=== PATIENT | male | born 1955 | race Caucasian/White ===

== ENCOUNTER → 2018-04-29 12:28 | Outpatient (CLI) | payer MEDICARE, SELFPAY ==
[2018-04-29 13:08] LABS: International Normalized Ratio 2.9; Prothrombin Time (Protime)PT. 30.8 SECONDS (11.7-14.9)
== END ==
PROVIDERS: Family Provider Student in an Organized Health Care Education/Training Program; PCP Student in an Organized Health Care Education/Training Program; Visit Provider Nurse Practitioner Adult Health
DX: Z51.81 Encounter for therapeutic drug level monitoring (principal); Z79.01 Long term (current) use of anticoagulants
CPT/HCPCS: 85610

== ENCOUNTER 2018-06-05 12:05 | Emergency (ER) | payer MEDICARE, SELFPAY ==
[2018-06-05 12:05] VITALS: BP 121/67; PULSE 79; RESP 18; TEMP 36.6; O2SAT 96; BMI 32.0
--- NOTE | 2018-06-05 12:42 | ED.DCSUM_ITS ---
- ER Visit Summary Date of Service: 06/05/18 Chief Complaint: Bruising History of Present Illness: The patient is a 62 M who is on Coumadin for history of prior DVT. He was sent to the emergency room for evaluation because there is concern for blood in foot . Patient states he has pushed down hard on his foot. There is no recollection of significant trauma. Last INR was 2.9. Physical Examination: Patient has superficial hematoma. There is no pain palpation of the lateral medial malleolus, calcaneus, metatarsal bones or phalanges. There is no subungual hematoma noted. Test Results: None Emergency Department Course and Treatment: Patient was informed he will bruise easily because he is on Coumadin. Since there is no specific history of blunt trauma and no pain to palpation of any particular bone there is no need to repeat his INR or image the foot. Treatment Plan: Follow-up with PCP and monitor INR. Disposition: Discharged home Impression: Bruising secondary to Coumadin, high risk medication This note was generated with [employer] dictation software. It may contain incorrect words, spelling, and punctuation that were not noted in review of the chart prior to signing ED Disposition - Plan for ED Patient: Disposition: Home or Assisted Living Chief Complaint: Lower Extremity Injury Instructions: Taking?Coumadin Referrals: Hari Oneill DO [Primary Care Provider] - As Needed
== END 2018-06-05 13:01 | disposition home or self-care (01) ==
PROVIDERS: Emergency Provider Emergency Medicine; Family Provider Student in an Organized Health Care Education/Training Program; PCP Student in an Organized Health Care Education/Training Program
DX: D68.32 Hemorrhagic disorder due to extrinsic circulating anticoagulants (principal); G40.909 Epilepsy, unspecified, not intractable, without status epilepticus; E66.9 Obesity, unspecified; Z68.32 Body mass index [BMI] 32.0-32.9, adult; Z86.718 Personal history of other venous thrombosis and embolism; Z79.01 Long term (current) use of anticoagulants; Z79.899 Other long term (current) drug therapy; Z87.891 Personal history of nicotine dependence
CPT/HCPCS: 99282

== ENCOUNTER → 2018-06-07 09:44 | Outpatient (CLI) | payer MEDICARE, SELFPAY ==
[2018-06-07 13:39] LABS: Prothrombin Time (Protime)PT. 38.7 SECONDS (11.7-14.9)
[2018-06-07 13:48] LABS: International Normalized Ratio 3.9
== END ==
PROVIDERS: Family Provider Student in an Organized Health Care Education/Training Program; PCP Student in an Organized Health Care Education/Training Program; Referring Provider Student in an Organized Health Care Education/Training Program; Visit Provider Student in an Organized Health Care Education/Training Program
DX: I26.99 Other pulmonary embolism without acute cor pulmonale (principal); Z51.81 Encounter for therapeutic drug level monitoring; Z79.01 Long term (current) use of anticoagulants
CPT/HCPCS: 85610

== ENCOUNTER → 2018-06-10 11:03 | Outpatient (CLI) | payer MEDICARE, SELFPAY ==
[2018-06-10 11:17] LABS: Prothrombin Time (Protime)PT. 37.7 SECONDS (11.7-14.9)
[2018-06-10 11:20] LABS: International Normalized Ratio 3.8
== END ==
PROVIDERS: Family Provider Student in an Organized Health Care Education/Training Program; PCP Student in an Organized Health Care Education/Training Program; Referring Provider Student in an Organized Health Care Education/Training Program; Visit Provider Student in an Organized Health Care Education/Training Program
DX: I26.99 Other pulmonary embolism without acute cor pulmonale (principal)
CPT/HCPCS: 85610

== ENCOUNTER → 2019-06-09 14:10 | Outpatient (CLI) | payer MEDICARE, SELFPAY ==
[2019-06-09 14:23] LABS: International Normalized Ratio 1.3; Prothrombin Time (Protime)PT. 15.9 SECONDS (11.7-14.9)
== END ==
PROVIDERS: Family Provider Student in an Organized Health Care Education/Training Program; PCP Student in an Organized Health Care Education/Training Program; Visit Provider Family Medicine
DX: I26.99 Other pulmonary embolism without acute cor pulmonale (principal)
CPT/HCPCS: 85610

== ENCOUNTER 2019-09-17 14:38 | Observation (INO) | payer MEDICARE, SELFPAY ==
[2019-09-17] VITALS (8 sets, daily range): BP systolic 112–132; BP diastolic 65–79; PULSE 71–85; RESP 14–20; TEMP 36.6–37; O2SAT 95–100; BMI 30.7; BMI 30.4
--- NOTE | 2019-09-17 15:13 | CT_ITS ---
STUDY: CT ABDOMEN AND PELVIS WITH CONTRAST REASON FOR EXAM: Male, 64 years old. Abdominal pain, nausea, vomiting and amp; diarrhea x 4 days. HISTORY OF LYMPHOMA RADIATION DOSAGE (If Supplied By Facility): CTDIvol = ( 18.34 ) mGy, DLP = ( 1290.52 ) mGycm TECHNIQUE: Transaxial images were obtained from the dome of the diaphragm to the symphysis pubis with oral contrast. Oral and amp; IV Gastrografin and amp; 100mL Isovue-300 was administered. Sagittal and coronal images were reconstructed. Individualized dose optimization techniques were used for this CT. COMPARISON: 06/08/2014. FINDINGS: The visualized lung bases are unremarkable. The visualized portions of the heart are within normal limits. Normal liver. There is a solitary gallstone. Normal spleen. There is diffuse atrophy of the pancreas. Normal bilateral adrenal glands. Normal right kidney. Normal left kidney. Normal appearance of the stomach. Normal small bowel. Marked distention of most of the large bowel with air as far as the splenic flexure. Findings are most consistent with ileus but obstruction is not an colonoscopy is suggested. Mild hazy increased density of the mesentery without mass or adenopathy. This appearance is completely nonspecific and most often incidental Normal abdominal aorta. There is an IVC filter in place. 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 Normal retroperitoneum. Normal urinary bladder. Normal abdominal wall. Normal osseous structures. CT/Abdomen/Pelvis WITH Contrast IMPRESSION: Distention of the right colon and transverse colon to the splenic flexure primary with air and some fecal material. Probable colonic ileus but consider colonoscopy. No other acute findings. Again seen is cholelithiasis and collapse of the IVC below the level of the IVC filter. Electronically Signed: Harsha Reed MD at 17:41 EST , Service support ,
--- NOTE | 2019-09-17 15:20 | ED.VISSUMM ---
- ER Visit Summary Date of Service: 09/17/19 Chief Complaint: Nausea and vomiting History of Present Illness: The patient is a 64 M with nausea and vomiting that is been getting progressively worse over the past 4 days. Patient states his emesis is gritty. Patient denies any hematemesis or coffee-ground emesis. Patient also admits to some diarrhea but denies any melena or hematochezia. Patient states he has been having some lower abdominal pain that has been intermittent over the past 4 days. Patient states this is worse after eating. Patient states the pain lasts a few minutes then resolves. Patient also admits to some dizziness. Patient denies any fevers or chills. Physical Examination: Vital signs are stable. Patient is afebrile. Patient is in no acute distress. Oral mucosa is pink and moist. Neck is supple. Trachea is midline. There is no JVD. Heart was regular rate and rhythm. Lungs are clear and equal bilaterally. Abdomen is soft. Bowel sounds are normal. There is mild diffuse tenderness. There is no rebound or guarding noted. Cranial nerves II through XII are intact. There are no focal motor or sensory deficits noted. Test Results: CBC and comprehensive metabolic profile were essentially within normal limits with the exception of a potassium of 2.5. Urinalysis does not show any evidence of urinary tract infection. CT scan of the abdomen and pelvis was obtained. There is a colonic ileus with distention of the large bowel up to the splenic flexure. There is no definite obstruction noted. Emergency Department Course and Treatment: Patient was given IV fluids. Patient was given IV and oral potassium. Patient was given morphine and Zofran. Patient was feeling better on reevaluation. Patient still complained of dizziness. I recommended admission to the hospital. Patient stated he wanted some time to think about it. Patient eventually was agreeable to admission to the hospital. Case was discussed with the hospitalist. She will admit the patient to her service for observation. Patient understands and is agreeable with the plan. All questions were answered. Disposition: Admit to hospital Impression: 1. Colonic ileus 2. Hypokalemia This note was generated with [facility] software. It may contain incorrect words, spelling, and punctuation that were not noted in review of the chart prior to signing ED Disposition - Plan for ED Patient: Disposition: Acute Care Hospital [facility] Diagnosis: Ileus, Hypokalemia Referrals: Hari Oneill DO [Primary Care Provider] -
[2019-09-17] MEDS: 0.9% Normal Saline 1,000 ML 1000 ML IV (15:35)
[2019-09-17 15:36] LABS: Absolute Lymphocyte Count 0.81 X10^3/uL (0.83-4.51); Basophil# 0.02 X10^3/uL; Basophil% 0.3 % (0-1); Eosinophil# 0.09 X10^3/uL; Eosinophils% 1.2 % (0-5); Hematocrit 39.9 % (40-54); Lymphocyte # 0.81 X10^3/ul (4.0); Lymphocyte % 11.1 % (19-41); Mean Corp Hgb Conc 35.1 g/dL (32-36); Mean Corpuscular Hgb 30.6 pg (27.0-32.0); Mean Corpuscular Volume 87.3 fL (80-94); Monocyte# 0.43 X10^3/uL; Monocyte% 5.9 % (0-10); NRBC Flagged by Analyzer 0 % (0-5); Neutrophil # 5.96 X10^3/uL (2.7-7.7); Neutrophil % 81.2 % (47-70); Platelet Count 204 K/mm3 (150-450); RBC Distribution Width CV 13.7 % (11.6-14.6); RBC Distribution Width SD 44.3 fl (35.1-43.9); Red Blood Count 4.57 M/mm3 (4.6-6.2); White Blood Count 7.3 K/mm3 (4.4-11.0)
[2019-09-17] MEDS: Ondansetron 4 MG/2 ML Vial IV (15:36)
[2019-09-17] MEDS: Morphine 4 MG/ML Syringe IV (15:37)
[2019-09-17 16:03] LABS: AST(SGOT) 18 U/L (15-37); Alanine Aminotransfer ALT/SGPT 38 U/L (16-61); Albumin, Serum 3.4 g/dL (3.2-5.0); Alkaline Phosphatase 103 U/L (45-117); Anion Gap 9 (5-15); BUN 14 mg/dL (7-18); BUN/Creat Ratio 14.4 RATIO (10-20); Calcium,Total 8.6 mg/dL (8.5-10.1); Chloride 105 mmol/L (98-107); Creatinine, Serum 0.97 mg/dL (0.70-1.30); EST Glomerular Filtration Rate 82 mL/min (>60); Est Glom Filt Rate - Afr Amer 100 mL/min (>60); Estimated Creatinine Clearance 82.22 ml/min; Globulin 3.4 g/dL (2.2-4.2); Glucose 117 mg/dL (74-106); Lipase 328 U/L (73-393); Potassium 2.5 mmol/L (3.5-5.1); Protein, Total 6.8 g/dL (6.4-8.2); Sodium Level 140 mmol/L (136-145)
[2019-09-17] MEDS: Potassium Chloride 10mEq/100mL 10 MEQ/100 ML IV.SOLN. 100 MEQ IV BOLUS ×2 (16:23→17:45)
[2019-09-17 16:33] LABS: Red Blood Cells-Urine 0 SEEN /hpf (0-5)
[2019-09-17 16:40] LABS: Color, Urine Yellow (Yellow); Glucose, Dipstick Normal (Normal); Ketone-Dipstick Negative (Negative); Leukocyte Esterase-Dipstick Negative /ul (Negative); Nitrite-Dipstick Negative (Negative); Occult Blood-Urine 10 /ul (Negative); Protein-Dipstick Negative (Negative); Specific Gravity, Urine 1.015 (1.002-1.030); Urine Bilirubin Dipstick Negative (Negative); Urine Clarity Clear (Clear); Urine Urobilinogen Normal (Normal)
[2019-09-17 17:26] LABS: White Blood Cells 0-5 SEEN /hpf (0-5)
[2019-09-17 17:27] LABS: Bacteria 1+ /hpf (None Seen); Hyaline Cast 5-10 SEEN /lpf (0-5); Mucous, Urine 2+ /hpf (<or=2+); Squamous Epithelial Cells - UA 0-5 SEEN /hpf (0-5)
--- NOTE | 2019-09-17 19:19 | HP.PCM_ITS ---
Problem List (1) Gastroenteritis Status: Acute (2) Supratherapeutic INR Status: Acute (3) Hypokalemia Status: Acute (4) HTN (hypertension) Status: Chronic Qualifiers: Hypertension type: essential hypertension Qualified Code(s): I10 - Essential (primary) hypertension (5) Anxiety and depression Status: Chronic (6) WILBERTO (obstructive sleep apnea) Status: Chronic (7) History of DVT of lower extremity Status: Chronic (8) History of lymphoma Status: Chronic (9) Seizure disorder Status: Chronic History of Present Illness Date of Admission: 09/17/19 Chief Complaint: N/V/D, dizziness x 4 days The patient is a 64 y/o M w/ PMHx: Obesity, WILBERTO, Hx PE on coumadin s/p IVC Filter placement, Seizure disorder, GERD, Anxiety and Depression, Large B cell Lymphoma and Malignant melanoma who presents to the [facility] ED on 09/17/19 with history of lower cramping abdominal pain rating the pain from 4-6 out of 10 in severity but waxing and waning with at least 6-8 bouts of diarrhea throughout the day with associated occasional nausea and emesis able to tolerate some fluids but difficulty with food, notes abdominal discomfort worse with attempted oral intake with associated lightheadedness and dizziness prompting [facility] UC evaluation with referral to the ED. He notes his was recently in the hospital for a planned knee operation and did not have any of these symptoms. Work-up in the ED included T 97.8, heart rate 76, BP 132/79, respiratory rate 17, 99% on room air, CBC with WBC 7.3, hemoglobin 14, platelet 204 without market left shift, CMP with potassium 2.5, glucose 117 otherwise normal, lipase 328, urinalysis with specific gravity 1.015, 10 occult blood, negative nitrite, negative leukocyte esterase, no urine WBCs, 1+ urine bacteria, CT abdomen pelvis with noted distention of the right colon and transverse colon to splenic fracture primarily with air and some fecal material, suspicious for colonic ileus, cholelithiasis evident as well as collapse of the IVC below the level of the IVC filter. In the ED patient ministered morphine, Zofran, potassium oral and IV supplementation as well as normal saline. Past Medical History Past Medical History (Chronic Problems): Chronic Problems HTN (hypertension) (Chronic) Anxiety and depression (Chronic) WILBERTO (obstructive sleep apnea) (Chronic) Depression (Chronic) History of DVT of lower extremity (Chronic) History of lymphoma (Chronic) Seizure disorder (Chronic) Allergies No Known Allergies Allergy (Verified 09/17/19 14:39) Home Medications: Ambulatory Orders Medication Instructions Recorded Finasteride [Proscar] 5 mg PO QHS 03/12/14 Lamotrigine [Lamictal] 200 mg PO BID 03/12/14 Warfarin [Coumadin] 6 mg PO SUMOWEFR 03/12/14 Citalopram Hydrobromide 40 mg PO DAILY 09/17/19 [Citalopram HBr] Lacosamide [Vimpat] 200 mg PO BID 09/17/19 Warfarin [Coumadin ([facility])] 7 mg PO TUTHSA 09/17/19 Zonisamide 100 mg PO DAILY 09/17/19 Surgical History: appendectomy, - - Possibly partial gastric resection, unclear if previous bleed, not great historian in this part, IVC filter placement, right eye intervention, tonsillectomy. Psychiatric History: Anxiety, Depression Lives: Spouse/ Significant Other Smoking Status: Never smoker Tobacco Use: Non-smoker Alcohol: None Drugs: None - *Family History Maternal History Items: - - Patient denies any market maternal or paternal family history including heart disease, diabetes or cancer. Paternal History Items: - - Patient denies any market maternal or paternal family history including heart disease, diabetes or cancer. Sibling History Items: No pertinent history Review of Systems Constitutional: Reports: Anorexia, Malaise, Weakness, Fatigue. Denies: Chills, Fever, Weight Change Eyes: Reports: - - R eye injury, loss of vision. HEENT: Denies: Head Aches, Sinus Congestion, Sinus Drainage Cardiovascular: Reports: Light Headedness. Denies: Chest Pain, Palpitations Respiratory: Denies: Cough, Shortness of breath at rest, Sputum production Gastrointestinal: Reports: Abdominal Pain, Diarrhea, Nausea, Vomiting Genitourinary: Denies: Dysuria Musculoskeletal: Reports: Joint Pain. Denies: Joint Tenderness Skin: Denies: Rash, Wounds Neurological: Denies: Numbness, Tingling, Focal weakness Psychiatric: Reports: Anxiety, Depression. Denies: Homicidal Ideations, Suicidal Ideations Hematologic/ Lymphatic: Reports: Easy Bruising, Easy Bleeding VTE Information - Inpt Only VTE Present on Admission: No VTE Mechan Device Prophylaxis: SCD's VTE Pharm Prophylaxis ordered?: No Reason prophylaxis not ordered:: Treatment Not Indicated - Holding coumadin, INR supratherapeutic. Patient Problems: Active and Suspected Problems Gastroenteritis (Acute) Hypokalemia (Acute) Supratherapeutic INR (Acute) Subjective: Seated upright in ED bed, no acute distress, mildly fatigued appearance. Objective: Physical Examination: General: awake, alert, oriented x 3 and cooperative, seated upright in the ED bed, fatigued appearance, no acute distress, notes feeling improved since initial ED presentation. Skin: normal color, turgor, no icterus, cyanosis. HEENT: AT/NC, EOM left eye intact, status post right eye injury with intervention, absent, blind, dry pupil round reactive to light, moderately dry MM, no carotid bruits or JVD noted. Lungs: CTA bilaterally, moderate effort, or it decrease BL bases, no rales, ronchi or wheezing. Heart: Regular rate and rhythm; no gallop, rub audible. Abdomen: soft, obese, mild generalized discomfort with palpation, potentially mildly distended, mildly hyperactive bowel sounds, no obvious HSM. Extremities: no cyanosis, clubbing, or edema. Neurological: patient awake, alert, oriented x 3; cognitive function intact; L pupil reactive to light, absent right eye; cranial nerves II-XII grossly normal except obvious deficits with right eye absence, moving all 4 extremities, no focal deficits, moderately global decrease secondary to acute presentation. Psychiatric: affect appears fatigued, no acute evidence of depressive or anxiety feelings. - Physical Exam Vitals/I&O's: Vital Signs Temp Pulse Resp BP Pulse Ox 97.8 F 81 19 H 119/65 100 09/17/19 14:39 09/17/19 18:29 09/17/19 18:29 09/17/19 18:29 09/17/19 18:29 Oxygen Delivery Method Room Air Weight: 226 lb 3.108 oz Body Mass Index (BMI) 30.7 Finger Stick Blood Glucose 108 Intake and Output for Last 24 Hours 09/15/19 09/16/19 09/17/19 23:59 23:59 23:59 Intake Total 1100 / 1100 Balance 1100 / 1100 Laboratory Results 09/17/19 15:30: WBC 7.3, RBC 4.57 L, Hgb 14.0, Hct 39.9 L, MCV 87.3, MCH 30.6, MCHC 35.1, RDW Std Deviation 44.3 H, RDW Coeff of Vaishnavi 13.7, Plt Count 204, MPV 9.0, Immature Gran % (Auto) 0.300, Neut % (Auto) 81.2 H, Lymph % (Auto) 11.1 L, Blaine % (Auto) 5.9, Eos % (Auto) 1.2, Baso % (Auto) 0.3, Absolute Neuts (auto) 6.0, Absolute Lymphs (auto) 0.81 L, Nucleated RBC % 0 09/17/19 15:30: Sodium 140, Potassium 2.5 L*, Chloride 105, Carbon Dioxide 26.0, Anion Gap 9, BUN 14, Creatinine 0.97, Estim Creat Clear Calc 82.22, Est GFR (MDRD) Af Amer 100, Est GFR (MDRD) Non-Af 82, BUN/Creatinine Ratio 14.4, Glucose 117 H, Calcium 8.6, Total Bilirubin 0.40, AST 18, ALT 38, Alkaline Phosphatase 103, Total Protein 6.8, Albumin 3.4, Globulin 3.4, Albumin/Globulin Ratio 1.0, Lipase 328 09/17/19 16:25: Urine Color Yellow, Urine Clarity Clear, Urine pH 6.0, Ur Specific Kenton 1.015, Urine Protein Negative, Urine Glucose (UA) Normal, Urine Ketones Negative, Urine Occult Blood 10 H, Urine Nitrite Negative, Urine Bilirubin Negative, Urine Urobilinogen Normal, Ur Leukocyte Esterase Negative, Urine RBC 0 SEEN, Urine WBC 0-5 SEEN, Ur Squamous Epith Cells 0-5 SEEN, Urine Bacteria 1+, Hyaline Casts 5-10 SEEN, Urine Mucus 2+ Assessment/Plan All Active Problems Gastroenteritis (Acute) Hypokalemia (Acute) Supratherapeutic INR (Acute) Ataxia (Acute) Lightheadedness (Acute) Generalized weakness (Acute) The patient is a 64 y/o M w/ PMHx: Obesity, WILBERTO, Hx PE on coumadin s/p IVC Filter placement, Seizure disorder, GERD, Anxiety and Depression, Large B cell Lymphoma and Malignant melanoma who presents to the [facility] ED on 09/17/19 with history of lower cramping abdominal pain rating the pain from 4-6 out of 10 in s everity but waxing and waning with at least 6-8 bouts of diarrhea throughout the day with associated occasional nausea and emesis able to tolerate some fluids but difficulty with food, notes abdominal discomfort worse with attempted oral intake with associated lightheadedness and dizziness. 1. N/V/D, ? Viral Gastroenteritis: Will admit to [facility] w/ telemetry given hypokalemia, request repeat testing this evening given resulted this afternoon, allow clears only initially with ADAT, will obtain c diff, stool cx with repeat AM CBC. Will not start antibiotics at this time given unclear source pending stool studies as may be viral gastroenteritis. Anti-emetics, pain regimen PRN. 2. Hypokalemia: Admission K+ 2.5, supplementation given, repeat level in AM. Magnesium level requested. 3. History of PE: Status post IVC filter seen on imaging, INR level obtained and notably elevated, will hold, no obvious evidence of bleeding thus will not reverse, repeat INR in a.m. 4. Seizure disorder: We will continue patient home Lamictal level with level pending as well as Vimpat and zonisamide. 5. Hypertension: Given acute presentation with GI losses we will temporarily hold Lasix and resume once appropriate, PRN hydralazine. 6. BPH: We will continue patient home Proscar regimen. 7. Anxiety and depression: We will continue patient home citalopram regimen. 8. WILBERTO: Patient does not use a CPAP at home, encourage follow-up outpatient for reassessment for need. 9. GERD: We will maintain on famotidine. 10. History large B-cell lymphoma, malignant melanoma: Notes in remission x5 years, encouraged continued follow-up with oncology per their discretion. 11. DVT prophylaxis: SCDs, obtained admission INR and notably elevated, will hold Coumadin and trend INR. Code Visit OBSV E&M: 37448 Initial observation care L3
[2019-09-17 19:49] LABS: Prothrombin Time (Protime)PT. 56.5 SECONDS (11.7-14.9)
[2019-09-17 19:51] LABS: International Normalized Ratio 6.3
[2019-09-17] MEDS: 0.9% Saline Lock 10 ML Syringe IV ×2 (20:56→22:30)
[2019-09-17 21:31] LABS: Anion Gap 6 (5-15); BUN 11 mg/dL (7-18); Calcium,Total 8.3 mg/dL (8.5-10.1); Chloride 108 mmol/L (98-107); Creatinine, Serum 0.92 mg/dL (0.70-1.30); EST Glomerular Filtration Rate 88 mL/min (>60); Est Glom Filt Rate - Afr Amer 106 mL/min (>60); Estimated Creatinine Clearance 86.69 ml/min; Glucose 112 mg/dL (74-106); Sodium Level 140 mmol/L (136-145)
[2019-09-17] MEDS: Famotidine 20 MG Tablet PO (22:21)
[2019-09-17] MEDS: Finasteride 5 MG Tablet PO (22:21)
[2019-09-17] MEDS: Lacosamide 100 MG Tablet 200 MG PO (22:21)
[2019-09-17] MEDS: lamoTRIgine 100 MG Tablet 200 MG PO (22:25)
[2019-09-17] MEDS: 0.9% Normal Saline 1,000 ML 100 ML IV (22:26)
[2019-09-17] MEDS: MELATONIN 3 MG TABLET PO (23:18)
[2019-09-18] VITALS (7 sets, daily range): BP systolic 108–121; BP diastolic 62–70; PULSE 67–81; RESP 16–18; TEMP 36.6–36.8; O2SAT 96–99
[2019-09-18] MEDS: 0.9% Saline Lock 10 ML Syringe IV ×2 (05:42→13:05)
[2019-09-18 06:04] LABS: Absolute Lymphocyte Count 1.13 X10^3/uL (0.83-4.51); Absolute Neutrophil Count 4.5 X10^3/uL (2.0-7.7); Basophil# 0.03 X10^3/uL; Basophil% 0.5 % (0-1); Eosinophil# 0.21 X10^3/uL; Eosinophils% 3.3 % (0-5); Hematocrit 37.1 % (40-54); Hemoglobin 12.8 g/dL (13.0-16.5); Lymphocyte # 1.13 X10^3/ul (4.0); Lymphocyte % 17.8 % (19-41); Mean Corp Hgb Conc 34.5 g/dL (32-36); Mean Corpuscular Hgb 30.6 pg (27.0-32.0); Mean Corpuscular Volume 88.8 fL (80-94); Mean Platelet Vol. 8.9 fl (6.2-12.0); Monocyte# 0.48 X10^3/uL; Monocyte% 7.6 % (0-10); NRBC Flagged by Analyzer 0 % (0-5); Neutrophil # 4.46 X10^3/uL (2.7-7.7); Neutrophil % 70.3 % (47-70); Platelet Count 167 K/mm3 (150-450); RBC Distribution Width SD 45.5 fl (35.1-43.9); Red Blood Count 4.18 M/mm3 (4.6-6.2); White Blood Count 6.3 K/mm3 (4.4-11.0)
[2019-09-18 06:16] LABS: International Normalized Ratio 6.6
[2019-09-18 06:20] LABS: Anion Gap 6 (5-15); BUN 10 mg/dL (7-18); BUN/Creat Ratio 12.9 RATIO (10-20); Calcium,Total 8.3 mg/dL (8.5-10.1); Chloride 109 mmol/L (98-107); Creatinine, Serum 0.78 mg/dL (0.70-1.30); EST Glomerular Filtration Rate 107 mL/min (>60); Est Glom Filt Rate - Afr Amer 129 mL/min (>60); Estimated Creatinine Clearance 79.76 ml/min; Glucose 98 mg/dL (74-106); Potassium 2.7 mmol/L (3.5-5.1); Sodium Level 141 mmol/L (136-145)
[2019-09-18] MEDS: 0.9% Normal Saline 1,000 ML 100 ML IV (07:39)
[2019-09-18] MEDS: Potassium Chloride 10mEq/100mL 10 MEQ/100 ML IV.SOLN. 100 MEQ IV BOLUS ×2 (08:14→09:36)
[2019-09-18] MEDS: Famotidine 20 MG Tablet PO (09:37)
[2019-09-18] MEDS: ZONISAMIDE 100 MG CAPSULE PO (09:37)
[2019-09-18] MEDS: lamoTRIgine 100 MG Tablet 200 MG PO (09:38)
[2019-09-18] MEDS: Citalopram 40 MG TABLET PO (09:38)
[2019-09-18] MEDS: ZONISAMIDE 100 MG CAPSULE 300 MG PO (11:12)
[2019-09-18] MEDS: Lacosamide 100 MG Tablet 200 MG PO (11:14)
--- NOTE | 2019-09-18 11:42 | DCINST_ITS ---
- Discharge Diagnoses Current Active Problems: Current Active and Chronic Problems Gastroenteritis (Acute) Hypokalemia (Acute) HTN (hypertension) (Chronic) Anxiety and depression (Chronic) WILBERTO (obstructive sleep apnea) (Chronic) Supratherapeutic INR (Acute) Ileus (Acute) Hypokalemia (Acute) You will use the following diet at home:: No restrictions Your food should be the consistency of: Regular Your liquids should be the consistency of: Regular/Thin Discharge Activity: Return to Normal Activity Weight Bearing Status: Full weight bearing Additional Instructions: Do not take Warfarin, discuss dose with your PCP, get your INR rechecked tomorrow and 09/22/19. call your physician if you see any abnormal bleeding Allergies/Adverse Reactions: Allergies No Known Allergies Allergy (Verified 09/17/19 14:39) Medications to take at Discharge Finasteride [Proscar] 5 mg PO QHS 03/12/14 Lamotrigine [Lamictal] 200 mg PO BID 03/12/14 Citalopram Hydrobromide [Citalopram HBr] 40 mg PO DAILY 09/17/19 Lacosamide [Vimpat] 200 mg PO BID 09/17/19 Zonisamide 300 mg PO DAILY 09/17/19 Primary Care Physician: Hari Oneill DO [Primary Care Provider] - Please follow up with your Primary Care Physician in: next week Test Results: Test results from this visit will be discussed in further detail at your follow- up appointment, if applicable.
[2019-09-18 13:31] LABS: Anion Gap 6 (5-15); BUN 9 mg/dL (7-18); BUN/Creat Ratio 11.1 RATIO (10-20); Calcium,Total 8.3 mg/dL (8.5-10.1); Chloride 111 mmol/L (98-107); Creatinine, Serum 0.81 mg/dL (0.70-1.30); EST Glomerular Filtration Rate 101 mL/min (>60); Est Glom Filt Rate - Afr Amer 122 mL/min (>60); Estimated Creatinine Clearance 98.46 ml/min; Glucose 126 mg/dL (74-106); Potassium 3.1 mmol/L (3.5-5.1); Sodium Level 142 mmol/L (136-145)
--- NOTE | 2019-09-19 08:21 | PCM.DC.SUM ---
Discharge Date and Diagnosis Date of Admission: 09/17/19 Date of Discharge: 09/18/19 - Primary Discharge Diagnosis #1 hypokalemia secondary to nausea and vomiting from viral gastroenteritis #2 viral gastroenteritis #3 supratherapeutic INR #4 seizure disorder #5 use of chronic anticoagulation (warfarin) - Secondary Discharge Diagnosis Chronic Problems HTN (hypertension) (Chronic) Anxiety and depression (Chronic) WILBERTO (obstructive sleep apnea) (Chronic) Depression (Chronic) History of DVT of lower extremity (Chronic) History of lymphoma (Chronic) Seizure disorder (Chronic) Hospital Course and Treatment Operations: None Procedures: None Summary of Care Provided: The patient is a 64 year old M the emergency room at [facility] with a chief complaint of nausea and vomiting. Work-up in the emergency room included an CBC which was unremarkable, patient's potassium was low, urinalysis was unremarkable. CT scan of the abdomen and pelvis was obtained there was evidence for a colonic ileus but no definite obstructive pattern was noted. Patient was given IV fluids, IV and oral potassium supplementation, morphine and Zofran, patient was placed in observation status on MedSurg 3 and labs were monitored. Patient continued to have low potassium and additional potassium administration was given to the patient. It was also noted that the patient's INR was elevated-patient maintained that he had his INR checked approximately 2 weeks ago and it was within therapeutic range. I asked the patient to stay off his warfarin for now and follow-up closely with his PCP contacting her tomorrow for instructions concerning his warfarin. Patient was able to eat without difficulty on 09/18/2019, he was examined on that date: On examination he appeared in good health and spirits. Vital signs as documented. Skin warm and dry and without overt rashes. Neck without JVD. Lungs clear. Heart exam notable for regular rhythm, normal sounds and absence of murmurs, rubs or gallops. Abdomen unremarkable and without evidence of organomegaly, masses, or abdominal aortic enlargement. Extremities nonedematous. Neuro: Cranial nerves II through XII are grossly intact, no focal motor deficits were noted, sensation to light touch and pinprick intact. Psych: Patient is alert and oriented x3, he does not appear anxious or depressed On 09/18/2019, patient was seen and examined felt to be in stable condition for discharge home. Additional note: I contacted the patient's PCPs office to make them aware his INR was highly elevated, they will be following up closely with the patient, patient was instructed that if he had any signs of abnormal bleeding he was to contact his PCP's office immediately - Physical Exam Vitals/I&O's: Vital Signs Temp Pulse Resp BP Pulse Ox 98.2 F 80 18 121/70 H 96 09/18/19 14:20 09/18/19 14:20 09/18/19 14:20 09/18/19 14:20 09/18/19 14:20 Oxygen Delivery Method Room Air Weight: 101.8 kg Body Mass Index (BMI) 30.4 Finger Stick Blood Glucose 108 Intake and Output for Last 24 Hours 09/17/19 09/18/19 09/19/19 23:59 23:59 23:59 Intake Total 1200 / 1200 3020.00 / 3020.00 Output Total 1100 / 1100 Balance 1200 / 1200 1920.00 / 1920.00 Laboratory Results 09/18/19 13:00: Sodium 142, Potassium 3.1 L, Chloride 111 H, Carbon Dioxide 25.0, Anion Gap 6, BUN 9, Creatinine 0.81, Estim Creat Clear Calc 98.46, Est GFR (MDRD) Af Amer 122, Est GFR (MDRD) Non-Af 101, BUN/Creatinine Ratio 11.1, Glucose 126 H, Calcium 8.3 L Discharge Activity: Return to Normal Activity Weight Bearing Status: Full weight bearing Home Medications: Medications to take at Discharge Finasteride [Proscar] 5 mg PO QHS 03/12/14 Lamotrigine [Lamictal] 200 mg PO BID 03/12/14 Citalopram Hydrobromide [Citalopram HBr] 40 mg PO DAILY 09/17/19 Lacosamide [Vimpat] 200 mg PO BID 09/17/19 Zonisamide 300 mg PO DAILY 09/17/19 Primary Care Physician: Hari Oneill DO [Primary Care Provider] - Please follow up with your Primary Care Physician in: next week Disposition: Home Minutes spent on discharge:: 30 Patient Condition:: Stable Medical Necessity - Tobacco Use Smoking Status: Never smoker Tobacco Use: Non-smoker Meaningful Use Info Meaningful Use Diagnoses (Choose all that apply): None applicable Code Visit OBSV E&M: 93320 Observation care discharge
[2019-09-22 22:15] LABS: Lamotrigine (Lamictal) Level 8.8 ug/mL (2.0-20.0)
== END 2019-09-18 15:05 | disposition home or self-care (01) ==
LOC: ED 19:30 → MS3 19:37
PROVIDERS: Admitting Provider Family Medicine; Emergency Provider Emergency Medicine; PCP Student in an Organized Health Care Education/Training Program; Visit Provider Internal Medicine
DX: A08.4 Viral intestinal infection, unspecified (principal); E87.6 Hypokalemia; G40.909 Epilepsy, unspecified, not intractable, without status epilepticus; G47.33 Obstructive sleep apnea (adult) (pediatric); F41.9 Anxiety disorder, unspecified; F32.9 Major depressive disorder, single episode, unspecified; K21.9 Gastro-esophageal reflux disease without esophagitis; E66.9 Obesity, unspecified; I10 Essential (primary) hypertension; C85.10 Unspecified B-cell lymphoma, unspecified site; N40.0 Benign prostatic hyperplasia without lower urinary tract symptoms; D68.9 Coagulation defect, unspecified; Z79.899 Other long term (current) drug therapy; Z79.01 Long term (current) use of anticoagulants; Z86.718 Personal history of other venous thrombosis and embolism; Z86.711 Personal history of pulmonary embolism; Z68.30 Body mass index [BMI] 30.0-30.9, adult; Z85.820 Personal history of malignant melanoma of skin
CPT/HCPCS: 74177; 80048; 80053; 81001; 82542; 83690; 83735; 85025; 85610; 96361; 96374; 96375; 99218; 99251; 99283; J7030; J7040; Q9967; A4216; G0378; G0463; J2405

== ENCOUNTER → 2019-09-25 | Outpatient (CLI) | payer MEDICARE, SELFPAY ==
[2019-09-17 20:07] VITALS: BMI 30.4
[2019-09-25 14:00] LABS: International Normalized Ratio 1.5
== END | disposition home or self-care (01) ==
LOC: LABSPEC 13:37
PROVIDERS: PCP Student in an Organized Health Care Education/Training Program; Referring Provider Student in an Organized Health Care Education/Training Program; Visit Provider Student in an Organized Health Care Education/Training Program
DX: Z86.718 Personal history of other venous thrombosis and embolism (principal)
CPT/HCPCS: 85610

== ENCOUNTER → 2019-09-29 | Outpatient (CLI) | payer MEDICARE, SELFPAY ==
[2019-09-17 20:07] VITALS: BMI 30.4
[2019-09-29 12:27] LABS: International Normalized Ratio 1.9
== END | disposition home or self-care (01) ==
LOC: LABSPEC 12:04
PROVIDERS: PCP Student in an Organized Health Care Education/Training Program; Referring Provider Student in an Organized Health Care Education/Training Program; Visit Provider Student in an Organized Health Care Education/Training Program
DX: Z86.718 Personal history of other venous thrombosis and embolism (principal)
CPT/HCPCS: 85610

== ENCOUNTER → 2019-10-06 | Outpatient (CLI) | payer MEDICARE, SELFPAY ==
[2019-09-17 20:07] VITALS: BMI 30.4
[2019-10-06 15:56] LABS: Prothrombin Time (Protime)PT. 22.6 SECONDS (11.7-14.9)
== END | disposition home or self-care (01) ==
LOC: LABSPEC 15:29
PROVIDERS: PCP Student in an Organized Health Care Education/Training Program; Referring Provider Student in an Organized Health Care Education/Training Program; Visit Provider Student in an Organized Health Care Education/Training Program
DX: Z86.718 Personal history of other venous thrombosis and embolism (principal)
CPT/HCPCS: 85610

== ENCOUNTER → 2019-10-13 | Outpatient (CLI) | payer MEDICARE, SELFPAY ==
[2019-09-17 20:07] VITALS: BMI 30.4
[2019-10-13 12:46] LABS: Prothrombin Time (Protime)PT. 56.1 SECONDS (11.7-14.9)
[2019-10-13 12:53] LABS: International Normalized Ratio 6.2
== END | disposition home or self-care (01) ==
PROVIDERS: PCP Student in an Organized Health Care Education/Training Program; Referring Provider Student in an Organized Health Care Education/Training Program; Visit Provider Student in an Organized Health Care Education/Training Program
DX: Z86.718 Personal history of other venous thrombosis and embolism (principal)
CPT/HCPCS: 85610

== ENCOUNTER → 2019-10-15 | Outpatient (CLI) | payer MEDICARE, SELFPAY ==
[2019-09-17 20:07] VITALS: BMI 30.4
[2019-10-15 11:14] LABS: International Normalized Ratio 2.9; Prothrombin Time (Protime)PT. 30.4 SECONDS (11.7-14.9)
== END | disposition home or self-care (01) ==
LOC: LABSPEC 10:36
PROVIDERS: PCP Student in an Organized Health Care Education/Training Program; Referring Provider Registered Nurse; Visit Provider Registered Nurse
DX: I26.99 Other pulmonary embolism without acute cor pulmonale (principal)
CPT/HCPCS: 85610

== ENCOUNTER → 2019-10-30 | Outpatient (CLI) | payer MEDICARE, SELFPAY ==
[2019-09-17 20:07] VITALS: BMI 30.4
[2019-10-30 10:10] LABS: Prothrombin Time (Protime)PT. 43.7 SECONDS (11.7-14.9)
[2019-10-30 10:14] LABS: International Normalized Ratio 4.6
== END | disposition home or self-care (01) ==
LOC: LABSPEC 09:53
PROVIDERS: PCP Student in an Organized Health Care Education/Training Program; Visit Provider Student in an Organized Health Care Education/Training Program
DX: Z86.718 Personal history of other venous thrombosis and embolism (principal)
CPT/HCPCS: 85610

== ENCOUNTER → 2019-11-06 | Outpatient (CLI) | payer MEDICARE, SELFPAY ==
[2019-09-17 20:07] VITALS: BMI 30.4
[2019-11-06 10:53] LABS: International Normalized Ratio 2.6; Prothrombin Time (Protime)PT. 28.1 SECONDS (11.7-14.9)
== END | disposition home or self-care (01) ==
LOC: LABSPEC 10:27
PROVIDERS: PCP Student in an Organized Health Care Education/Training Program; Visit Provider Student in an Organized Health Care Education/Training Program
DX: Z86.718 Personal history of other venous thrombosis and embolism (principal)
CPT/HCPCS: 85610

== ENCOUNTER → 2019-11-24 | Outpatient (CLI) | payer MEDICARE, SELFPAY ==
[2019-09-17 20:07] VITALS: BMI 30.4
[2019-11-24 10:22] LABS: International Normalized Ratio 2.1
== END | disposition home or self-care (01) ==
LOC: LABSPEC 09:53
PROVIDERS: PCP Student in an Organized Health Care Education/Training Program; Referring Provider Student in an Organized Health Care Education/Training Program; Visit Provider Student in an Organized Health Care Education/Training Program
DX: Z86.718 Personal history of other venous thrombosis and embolism (principal)
CPT/HCPCS: 85610

== ENCOUNTER → 2020-01-05 | Outpatient (CLI) | payer MEDICARE, SELFPAY ==
[2019-09-17 20:07] VITALS: BMI 30.4
[2020-01-05 13:19] LABS: International Normalized Ratio 4.1
== END | disposition home or self-care (01) ==
LOC: LABSPEC 12:44
PROVIDERS: PCP Student in an Organized Health Care Education/Training Program; Visit Provider Registered Nurse
DX: Z86.718 Personal history of other venous thrombosis and embolism (principal)
CPT/HCPCS: 85610

== ENCOUNTER → 2020-03-29 | Outpatient (CLI) | payer MEDICARE, SELFPAY ==
[2019-09-17 20:07] VITALS: BMI 30.4
[2020-03-29 10:37] LABS: International Normalized Ratio 1.8; Prothrombin Time (Protime)PT. 20.7 SECONDS (11.7-14.9)
== END | disposition home or self-care (01) ==
PROVIDERS: PCP Student in an Organized Health Care Education/Training Program; Visit Provider Registered Nurse
DX: Z86.718 Personal history of other venous thrombosis and embolism (principal)
CPT/HCPCS: 85610

== ENCOUNTER → 2020-04-19 | Outpatient (CLI) | payer MEDICARE, SELFPAY ==
[2019-09-17 20:07] VITALS: BMI 30.4
[2020-04-19 15:02] LABS: International Normalized Ratio 1.9; Prothrombin Time (Protime)PT. 21.3 SECONDS (11.7-14.9)
== END | disposition home or self-care (01) ==
LOC: LABSPEC 13:33
PROVIDERS: PCP Student in an Organized Health Care Education/Training Program; Referring Provider Student in an Organized Health Care Education/Training Program; Visit Provider Student in an Organized Health Care Education/Training Program
DX: Z86.718 Personal history of other venous thrombosis and embolism (principal)
CPT/HCPCS: 85610

== ENCOUNTER → 2020-04-27 | Outpatient (CLI) | payer MEDICARE, SELFPAY ==
[2019-09-17 20:07] VITALS: BMI 30.4
[2020-04-27 10:16] LABS: International Normalized Ratio 1.9; Prothrombin Time (Protime)PT. 21.6 SECONDS (11.7-14.9)
== END | disposition home or self-care (01) ==
LOC: LABSPEC 09:47
PROVIDERS: PCP Student in an Organized Health Care Education/Training Program; Referring Provider Student in an Organized Health Care Education/Training Program; Visit Provider Student in an Organized Health Care Education/Training Program
DX: Z86.718 Personal history of other venous thrombosis and embolism (principal)
CPT/HCPCS: 85610

== ENCOUNTER → 2021-02-08 10:35 | Outpatient (CLI) | payer MEDICARE, SELFPAY ==
[2019-09-17 20:07] VITALS: BMI 30.4
[2021-02-08 10:56] LABS: International Normalized Ratio 1.6; Prothrombin Time (Protime)PT. 18.7 SECONDS (11.7-14.9)
== END ==
PROVIDERS: PCP Student in an Organized Health Care Education/Training Program; Referring Provider Student in an Organized Health Care Education/Training Program; Visit Provider Student in an Organized Health Care Education/Training Program
DX: Z86.718 Personal history of other venous thrombosis and embolism (principal); I26.01 Septic pulmonary embolism with acute cor pulmonale
CPT/HCPCS: 85610

== ENCOUNTER 2021-06-03 10:37 | Emergency (ER) | payer MEDICARE, SELFPAY ==
[2021-06-03 10:38] VITALS: BP 142/71; PULSE 86; RESP 16; TEMP 36.5; O2SAT 99; BMI 36.1
--- NOTE | 2021-06-03 11:12 | VDLE_ITS ---
Reason For Study: Swelling RIGHT LEFT GSV is normal. GSV is normal. CFV is compressible, spontaneous, phasic, CFV is compressible, spontaneous, phasic, competent and demonstrates normal competent, and demonstrates normal augmentation. augmentation. FV is compressible, spontaneous, phasic, FV is compressible, spontaneous, phasic, competent and demonstrates normal competent and demonstrates normal augmentation. augmentation. POP V is compressible, spontaneous, phasic, POP V is compressible, spontaneous, phasic, competent and demonstrates normal competent and demonstrates normal augmentation. augmentation. T/P Trunk is compressible. T/P Trunk is compressible. PTV is compressible. PTV is compressible. RT PerV is compressible. LT PerV is compressible. Procedure This is a venous duplex using B-mode, color flow and spectral Doppler. Exam performed portable in ED. A preliminary report was called and/or faxed to [facility]. VL/Venous Duplex US - Angel Luis Extrem Interpretation Summary No evidence for acute deep venous thrombosis bilateral lower extremities with p atent and compressible bilateral great saphenous veins. Ordering Physician: Saji Davison Referring Physician: Hari Oneill Performed By: Zuly Sullivan RVT
--- NOTE | 2021-06-03 11:14 | EDS_ITS ---
HPI History of Present Illness HPI Narrative: Patient presents with swelling of his lower extremities that has been getting worse over the past 3 days. Patient has a history of DVT and PE. Patient is on Coumadin but the states that he has not taking it appropriately. Patient states he is supposed to take 7.5 mg every other day and 5 mg every other day. Patient states he is only taking 5 mg once a day. Patient denies any paresthesias or weakness. Patient denies any trauma or injury. Patient states nothing makes his pain better and nothing makes it worse. Chief Complaint: Lower Extremity Injury Informant: patient and spouse/S.O. Onset/Context/Timing Onset: Days (3) Context: Gradual Onset Timing: Continuous Quality of Pain: Dull Location: Bilateral lower legs Worsened by: Nothing Relieved by: Nothing Associated Symptoms Associated Symptoms: Negative for Parasthesia and Weakness [facility] Medical History (Updated 06/03/21 @ 14:[address] Saji Davison DO) Anxiety and depression History of DVT of lower extremity HTN (hypertension) Seizure disorder Home Medications finasteride 5 mg PO QHS 03/12/14 [History Last Taken 09/17/19] lamotrigine [Lamictal] 200 mg PO BID 03/12/14 [History Last Taken 09/17/19] citalopram 40 mg PO DAILY 09/17/19 [History Last Taken 09/17/19] lacosamide 200 mg PO BID 09/17/19 [History Last Taken 09/17/19] zonisamide 300 mg PO DAILY 09/17/19 [History Last Taken 09/17/19] Allergy/AdvReac Type Severity Reaction Status Date / Time Unable to Assess Allergy Verified 06/03/21 10:42 Social History Smoking Status: Never smoker ROS ROS ED Constitutional Constitutional ED: Denies chills or fever(s) Eyes Eyes: Denies blurry vision or change in vision ENT ENT ED: Denies rhinorrhea or sore throat Cardiovascular Cardiovascular: Denies chest pain or palpitations Respiratory/Chest Respiratory/Chest: Denies cough or dyspnea Gastrointestinal Gastrointestinal: Denies nausea or vomiting Genitourinary Genitourinary ED: Denies dysuria or hematuria Musculoskeletal Musculoskeletal: Denies back pain or neck pain Integumentary Denies abscess or rash Neurologic Neurologic: Denies headache(s) or weakness Allergic/Immunologic Allergic/Immunologic ED: Denies mouth swelling or urticaria EXAM Physical Exam Const Vital Signs: 06/03/21 10:38 Temperature 97.7 F L Temperature Source Temporal Pulse Rate 86 Respiratory Rate 16 Blood Pressure 142/71 H Blood Pressure Mean 94 Pulse Ox 99 Oxygen Delivery Method Room Air Positive well nourished and well developed General Appearance ED: well developed HEENT Reports moist mucous membranes Neck supple and no JVD Resp normal respiratory effort and clear to auscultation bilaterally Cardio regular rate, regular rhythm and no murmurs GI normal to inspection, nondistended, normoactive bowel sounds and non-tender Palpation: soft Extremity full ROM Extremity Narrative: There is 1-2+ pitting edema of the lower extremities bilaterally to the knees. There is no calf tenderness. Homans' sign is negative. General Extremety ED: Yes edema; Negative for tenderness General Extremity: edema Neuro oriented x3, CN's II-XII intact bilaterally and no sensory deficits noted Sensorium / Orientation: alert Motor Exam: strength 5/5 throughout Psych mental status grossly normal Skin no rashes or lesions noted MDM MDM MDM Narrative Medical decision making narrative: Venous duplex of the lower extremities was obtained. There is no evidence of DVT. CBC was within normal limits. PT with INR was subtherapeutic at 1.5. Basic metabolic profile was within normal limits. Patient was advised of his findings. Patient was instructed to take his Coumadin as previously prescribed, alternating between 5 mg and 7.5 mg. Patient was instructed to follow-up with his primary care physician as scheduled. Patient and spouse understood and were agreeable with the plan. All questions were answered. Lab Data Labs: Laboratory Results - last 24 hr 06/03/21 06/03/21 06/03/21 11:25 11:25 11:25 WBC 6.5 RBC 4.15 L Hgb 12.5 L Hct 38.9 L MCV 93.7 MCH 30.1 MCHC 32.1 RDW Std Deviation 49.5 H RDW Coeff of Vaishnavi 14.3 Plt Count 162 MPV 8.9 Immature Gran % (Auto) 0.300 Neut % (Auto) 68.3 Lymph % (Auto) 19.2 [place] % (Auto) 7.5 Eos % (Auto) 4.2 Baso % (Auto) 0.5 Absolute Neuts (auto) 4.4 Absolute Lymphs (auto) 1.25 Nucleated RBC % 0 PT 17.0 H INR 1.5 Sodium 145 Potassium 3.4 L Chloride 115 H Carbon Dioxide 24.0 Anion Gap 6 BUN 19 H Creatinine 1.11 Estim Creat Clear Calc 70.88 Est GFR (MDRD) Af Amer 85 Est GFR (MDRD) Non-Af 70 BUN/Creatinine Ratio 17.1 Glucose 118 H Calcium 8.1 L Radiography Diagnostic Testing: Clinical Impression(s) from Imaging Studies Venous Doppler Study 06/03/21 11:12 Interpretation Summary No evidence for acute deep venous thrombosis bilateral lower extremities with patent and compressible bilateral great saphenous veins. Ordering Physician: Saji Davison Referring Physician: Hari Oneill Performed By: Zuly Sullivan RVT Discharge Plan Triage Chief Complaint: Lower Extremity Injury ED Provider: Saji Davison Dx/Rx/DC Orders Clinical Impression: Peripheral edema Instructions: ED Peripheral Edema, Bilateral Prescriptions: No Action lamotrigine [Lamictal] 200 MG tablet 200 mg PO BID RF: 0 finasteride 5 MG tablet 5 mg PO QHS RF: 0 zonisamide 100 MG capsule 300 mg PO DAILY RF: 0 citalopram 40 mg tablet 40 mg PO DAILY RF: 0 lacosamide 200 mg tablet 200 mg PO BID RF: 0 Primary Care Provider: Hari Oneill Referrals: Hari Oneill DO [Primary Care Provider] - Keep Mary Alice appointment Disposition Disposition: Home, Self Care
[2021-06-03 11:41] LABS: Absolute Lymphocyte Count 1.25 X10^3/uL (0.83-4.51); Absolute Neutrophil Count 4.4 X10^3/uL (2.0-7.7); Basophil# 0.03 X10^3/uL; Basophil% 0.5 % (0-1); Eosinophil# 0.27 X10^3/uL; Eosinophils% 4.2 % (0-5); Hematocrit 38.9 % (40-54); Hemoglobin 12.5 g/dL (13.0-16.5); Lymphocyte # 1.25 X10^3/ul (0.83-4.51); Lymphocyte % 19.2 % (19-41); Mean Corp Hgb Conc 32.1 g/dL (32-36); Mean Corpuscular Hgb 30.1 pg (27.0-32.0); Mean Corpuscular Volume 93.7 fL (80-94); Mean Platelet Vol. 8.9 fl (6.2-12.0); Monocyte# 0.49 X10^3/uL; Monocyte% 7.5 % (0-10); NRBC Flagged by Analyzer 0 % (0-5); Neutrophil # 4.44 X10^3/uL (2.7-7.7); Neutrophil % 68.3 % (47-70); Platelet Count 162 K/mm3 (150-450); RBC Distribution Width CV 14.3 % (11.6-14.6); RBC Distribution Width SD 49.5 fl (35.1-43.9); Red Blood Count 4.15 M/mm3 (4.6-6.2); White Blood Count 6.5 K/mm3 (4.4-11.0)
[2021-06-03 11:47] LABS: International Normalized Ratio 1.5
[2021-06-03 11:58] LABS: Anion Gap 6 (5-15); BUN 19 mg/dL (7-18); BUN/Creat Ratio 17.1 RATIO (10-20); Calcium,Total 8.1 mg/dL (8.5-10.1); Chloride 115 mmol/L (98-107); Creatinine, Serum 1.11 mg/dL (0.70-1.30); EST Glomerular Filtration Rate 70 mL/min (>60); Est Glom Filt Rate - Afr Amer 85 mL/min (>60); Estimated Creatinine Clearance 70.88 ml/min; Glucose 118 mg/dL (74-106); Potassium 3.4 mmol/L (3.5-5.1); Sodium Level 145 mmol/L (136-145)
[2021-06-03 14:26] VITALS: BP 128/79; PULSE 84; RESP 18; O2SAT 99
--- NOTE | 2021-06-03 14:26 | ED.RN ---
THIS NURSE REVIEWED D/C INSTRUCTIONS WITH PT AND VISITOR. BOTH VERBALIZED UNDERSTANDING OF INSTRUCTIONS. IV D/C. IV CATHETER INTACT. PT TOLERATED WELL. PT DENIES FURTHER NEEDS OR QUESTIONS AT THIS TIME. PT AMBULATES FROM ROOM ON OWN WITHOUT ASSISTANCE FROM STAFF
== END 2021-06-03 14:28 | disposition home or self-care (01) ==
PROVIDERS: Emergency Provider Emergency Medicine; PCP Student in an Organized Health Care Education/Training Program
DX: R60.0 Localized edema (principal); I10 Essential (primary) hypertension; G40.909 Epilepsy, unspecified, not intractable, without status epilepticus; F32.A Depression, unspecified; F41.9 Anxiety disorder, unspecified; Z79.01 Long term (current) use of anticoagulants; Z79.899 Other long term (current) drug therapy; Z86.711 Personal history of pulmonary embolism; Z86.718 Personal history of other venous thrombosis and embolism
CPT/HCPCS: 80048; 85025; 85610; 93970; 99283; A4216

== ENCOUNTER 2021-12-08 19:53 | Emergency (ER) | payer MEDICARE, SELFPAY ==
[2021-12-08 19:54] VITALS: BP 147/78; PULSE 89; RESP 15; TEMP 36.7; O2SAT 97; BMI 40.1
[2021-12-08 19:55] VITALS: BP 147/78; PULSE 89; RESP 15; TEMP 36.7; O2SAT 97
--- NOTE | 2021-12-08 20:00 | RAD_ITS ---
INDICATION: Trauma, fall with injury to first and second toes EXAMINATION/TECHNIQUE: X-RAY - LEFT XR Foot Min 3 Views 3 VIEWS COMPARISON: None. FINDINGS: SOFT TISSUES: Mild forefoot swelling. No radiopaque foreign body. BONES/JOINTS: No acute fracture or subluxation.. Normal alignment. Mild degenerative changes.. No sclerotic or destructive changes observed. RAD/Foot min 3 Views IMPRESSION: No acute bony abnormality. Electronically Signed: Paul Houser MD at 20:42 EDT ,
[2021-12-08] MEDS: Diphth,Pertuss(Acell),Tet Vac 0.5 ML Vial IM (21:43)
[2021-12-08] MEDS: Lidocaine 1% (20 ml mdv) 20 ML Vial INFILT (21:44)
--- NOTE | 2021-12-08 22:26 | ED.VIS.LOWEX ---
HPI History of Present Illness HPI Narrative: Patient presents with a laceration to his left second toe that occurred today. Patient states he was in the bathtub when he slipped and cut his toe on something sharp in the tub. Patient is unsure exactly what it was. Patient thinks it may have been the drain. Patient is unsure of his last tetanus. Patient states the bleeding stopped after a few minutes of pressure. Patient denies any paresthesias or weakness. Patient denies any other injuries. Chief Complaint: Lower Extremity Injury Informant: patient Onset/Context/Timing Onset: Today Context: Sudden Onset Timing: Continuous Location: Left second toe Worsened by: Nothing Relieved by: Nothing Associated Symptoms Associated Symptoms: Negative for Parasthesia and Weakness Narrative Tetanus Immunization: Unknown [facility] Medical History Abnormal biliary HIDA scan Anxiety and depression History of DVT of lower extremity HTN (hypertension) Localized swelling of both lower legs Seizure disorder Home Medications finasteride 5 mg PO QHS 03/12/14 [History Last Taken 09/17/19] lamotrigine [Lamictal] 200 mg PO BID 03/12/14 [History Last Taken 09/17/19] lacosamide 200 mg PO BID 09/17/19 [History Last Taken 09/17/19] zonisamide 300 mg PO DAILY 09/17/19 [History Last Taken 09/17/19] warfarin 5 mg tablet 5 mg PO QMWF 09/12/21 [History Last Taken Unknown] warfarin 7.5 mg tablet 7.5 mg PO QTUTHSA 09/12/21 [History Last Taken Unknown] Allergy/AdvReac Type Severity Reaction Status Date / Time No Known Allergies Allergy Unverified 09/12/21 13:57 Social History Smoking Status: Never smoker ROS ROS ED Constitutional Constitutional ED: Denies chills or fever(s) Eyes Eyes: Denies blurry vision or change in vision ENT ENT ED: Denies rhinorrhea or sore throat Cardiovascular Cardiovascular: Denies chest pain or palpitations Respiratory/Chest Respiratory/Chest: Denies cough or dyspnea Gastrointestinal Gastrointestinal: Denies nausea or vomiting Genitourinary Genitourinary ED: Denies dysuria or hematuria Musculoskeletal Musculoskeletal: Denies back pain or neck pain Integumentary Denies abscess or rash Neurologic Neurologic: Denies headache(s) or weakness Allergic/Immunologic Allergic/Immunologic ED: Denies mouth swelling or urticaria EXAM Physical Exam Const Vital Signs: 12/08/21 19:54 12/08/21 19:55 Temperature 98.1 F 98.1 F Temperature Source Temporal Temporal Pulse Rate 89 89 Respiratory Rate 15 15 Blood Pressure 147/78 H 147/78 H Blood Pressure Mean 101 101 Pulse Ox 97 97 Oxygen Delivery Method Room Air Room Air Positive well nourished and well developed General Appearance ED: well developed and NAD Neck full ROM and supple Extremity Extremity Narrative: There is a 2 cm full-thickness linear laceration over the plantar aspect of the distal phalanx of the left second toe. There are no foreign bodies noted. There is minimal gapping of the wound margins. There is no active bleeding noted. Sensation was intact to light touch in all digits. Capillary refill was less than 2 seconds in all digits. Pedal pulses are equal bilaterally. Neuro oriented x3, CN's II-XII intact bilaterally, moves all extremities and no sensory deficits noted Sensorium / Orientation: alert Motor Exam: strength 5/5 throughout Psych mental status grossly normal MDM MDM MDM Narrative Medical decision making narrative: X-rays of the left foot were obtained. There are 3 views. On my interpretation, there is no acute fracture. There is no dislocation. There is no foreign body noted. There is no soft tissue swelling. Radiologist also interpreted the x-rays and agrees. The wound was cleaned and irrigated with copious amounts of normal saline. The wound was anesthetized with 1% plain lidocaine via digital block. The wound was closed with 3 simple interrupted #4-0 nylon sutures under sterile technique. Patient tolerated the procedure well. Bacitracin dressing was applied. Patient was instructed to keep the wound clean and dry. Patient was instructed to follow-up with his primary care physician in 5 to 7 days for wound recheck and suture removal. Patient understood and was agreeable with the plan. All questions were answered. Radiography Diagnostic Testing: Clinical Impression(s) from Imaging Studies Foot X-Ray 12/08/21 20:00 IMPRESSION: No acute bony abnormality. Electronically Signed: Paul Houser MD at 20:42 EDT , Discharge Plan Triage Chief Complaint: Lower Extremity Injury ED Provider: Saji Davison Dx/Rx/DC Orders Clinical Impression: Laceration of second toe of left foot, HTN (hypertension), Seizure disorder Instructions: ED Laceration, Foot: All Closures Prescriptions: No Action warfarin 5 mg tablet 5 mg PO QMWF RF: 0 warfarin 7.5 mg tablet 7.5 mg PO QTUTHSA RF: 0 lamotrigine [Lamictal] 200 MG tablet 200 mg PO BID RF: 0 finasteride 5 MG tablet 5 mg PO QHS RF: 0 zonisamide 100 MG capsule 300 mg PO DAILY RF: 0 lacosamide 200 mg tablet 200 mg PO BID RF: 0 Primary Care Provider: Hari Oneill Referrals: Hari Oneill DO [Primary Care Provider] - 5 Days for suture removal Disposition Disposition: Home, Self Care
== END 2021-12-08 22:38 | disposition home or self-care (01) ==
PROVIDERS: Emergency Provider Emergency Medicine; PCP Student in an Organized Health Care Education/Training Program; Visit Provider Emergency Medicine
DX: S91.115A Laceration without foreign body of left lesser toe(s) without damage to nail, initial encounter (principal); G40.909 Epilepsy, unspecified, not intractable, without status epilepticus; W26.8XXA Contact with other sharp object(s), not elsewhere classified, initial encounter; I10 Essential (primary) hypertension; F32.A Depression, unspecified; F41.9 Anxiety disorder, unspecified; Z79.01 Long term (current) use of anticoagulants; Z79.899 Other long term (current) drug therapy
CPT/HCPCS: 12001; 73630; 90471; 90715; 99283

== ENCOUNTER 2024-03-11 14:53 | Emergency (ER) | payer MEDICARE, SELFPAY ==
[2024-03-11 14:56] VITALS: BP 151/72; PULSE 77; RESP 22; TEMP 36.8; O2SAT 93
--- NOTE | 2024-03-11 15:22 | EKG12_ITS ---
Test Reason : Blood Pressure : / mmHG Vent. Rate : 071 BPM Atrial Rate : 071 BPM P-R Int : 200 ms QRS Dur : 094 ms QT Int : 408 ms P-R-T Axes : 042 012 037 degrees QTc Int : 443 ms Normal sinus rhythm Normal ECG Confirmed by JUAN MANUEL SALDANA, ANATOLIY ([id number]), web editor SAL BRAVO ([id number]) on 03/17/2024 8:35:30 AM Referred By: Confirmed By:FERNANDA ZAMBRANO MD
[2024-03-11] MEDS: 0.9% Normal Saline (1000mL) 1,000 ML 250 ML IV (15:52)
--- NOTE | 2024-03-11 15:55 | RAD_ITS ---
STUDY: X-RAY CHEST REASON FOR EXAM: Male, 68 years old. fever TECHNIQUE: Single frontal view of the chest. COMPARISON: March 12, 2014 FINDINGS: Surgical clips right neck. Left IJ MediPort unchanged in position terminating in the SVC. There appears to be a kink in the left neck which is unchanged. The lungs are clear and expanded. There is no demonstrated pleural abnormality. Normal size heart. Normal mediastinum and rowena. Normal visualized pulmonary arteries. Normal visualized aortic arch and descending thoracic aorta. Normal visualized thoracic spine. Normal visualized ribs, clavicles, and shoulders. There is no demonstrated abnormality of the visualized soft tissue structures of the upper abdomen. RAD/Chest 1 View (Portable) IMPRESSION: Kinked MediPort unchanged. Normal x-ray examination of the chest. Electronically Signed: Pawel Blackwood MD at 16:07 EDT ,
[2024-03-11 15:57] VITALS: BP 141/80; PULSE 72
[2024-03-11 15:59] LABS: Mucous, Urine 0 SEEN /hpf (<or=2+); Squamous Epithelial Cells - UA 0 SEEN /hpf (0-5)
[2024-03-11 16:01] VITALS: BP 141/92; PULSE 72; RESP 16; TEMP 36.8; O2SAT 98
[2024-03-11 16:09] LABS: Color, Urine Red (Yellow); Glucose, Dipstick Normal (Normal); Ketone-Dipstick 5 mg/dl (Negative); Leukocyte Esterase-Dipstick 25 /ul (Negative); Nitrite-Dipstick Negative (Negative); Occult Blood-Urine 250 /ul (Negative); Protein-Dipstick 100 mg/dl (Negative); Urine Bilirubin Dipstick Negative (Negative); Urine Clarity Cloudy (Clear); Urine Urobilinogen Normal (Normal); Urine pH 6.5 (5.0 - 8.0)
--- NOTE | 2024-03-11 16:10 | EDS_ITS ---
HPI History of Present Illness Chief Complaint: Complaint Detail of Chief Complaint: Painless gross hematuria with temperature of 101.4 ?F. Informant: patient and spouse/S.O. Onset/Context/Timing Onset: Today Context: Sudden Onset Timing: Intermittent Quality: Fever and painless gross hematuria Location: Maximum Severity: Moderate Worsened by: Patient is on Coumadin. PT/INR's not been assessed recently. He does have Relieved by: Not applicable Associated Symptoms Associated Symptoms: Decreased level conscious, fatigue, chills Narrative Narrative: Patient is 68-year-old male. He has history of hypertension, DVT, obstructive sleep apnea, anxiety and depression, lymphoma, and eating disorder who presents because of decreased level consciousness, fatigue, documented temperature to 101.4 ?F and painless gross hematuria. Patient denies headache. Nuys double vision, blurred vision loss of vision denies rangers decreased hearing. Nuys rhinorrhea, congestion, postnasal drainage or sore throat. He denies cough or shortness of breath. Nuys chest discomfort. He denies abdominal pain. He does report nausea without vomiting. He had diarrhea for over a week. He is not noted any blood or mucus in his diarrhea. He states his urine is bright red blood. There is no clots. He does have history of enlarged prostate. He denies any scrotal swelling or pain. He does have chronic edema of his lower extremity with venous stasis dermatitis. He was wearing compressive hose. He stopped wearing compressive hose because of small breaks in his skin with serous drainage and scabbing. Prior similar symptoms: No Recent Illness/Hospitalization: No [facility] Medical History Localized swelling of both lower legs Abnormal biliary HIDA scan Anxiety and depression HTN (hypertension) History of DVT of lower extremity Seizure disorder Home Medications ?Medication ?Instructions ?Recorded ?Last Taken ?Type lamotrigine 200 mg tablet 200 mg PO BID SEIZURES 03/12/14 03/10/24 History (Lamictal) lacosamide 200 mg tablet 200 mg PO BID SEIZURES 09/17/19 03/10/24 History zonisamide 100 mg capsule 400 mg PO DAILY SEIZURES 09/17/19 03/10/24 History warfarin 7.5 mg tablet 7.5 mg PO DAILY BLOOD THINNER 09/12/21 03/10/24 History fluoxetine 40 mg capsule 40 mg PO DAILY DEPRESSION 03/11/24 03/10/24 History levetiracetam 750 mg tablet 1,500 mg PO BID SEIZURES 03/11/24 03/10/24 History levothyroxine 88 mcg tablet 88 mcg PO DAILY THYROID 03/11/24 03/10/24 History meloxicam 15 mg tablet 15 mg PO DAILY ARTHRITIS 03/11/24 03/10/24 History zonisamide 100 mg capsule 200 mg PO QPM SEIZURES 03/11/24 03/10/24 History Allergy/AdvReac Type Severity Reaction Status Date / Time No Known Allergies Allergy Verified 03/11/24 14:56 Social History (Updated 03/11/24 @ 16:[address] Pepe Carr MD) household members: spouse Smoking Status: Never smoker ROS ROS ED Constitutional Constitutional ED: Reports chills, fever(s) and sweats; Denies subjective Eyes Eyes: Denies blurry vision, change in vision or diplopia ENT ENT ED: Reports other Details: He does not endorse dry mouth but not increased thirst. ; Denies ear pain, rhinorrhea or sore throat Cardiovascular Cardiovascular: Reports other Details: He denies orthostatic symptoms. ; Denies chest pain, orthopnea, palpitations or paroxysmal nocturnal dyspnea Respiratory/Chest Respiratory/Chest: Denies cough, dyspnea, dyspnea on exertion, orthopnea or paroxysmal nocturnal dyspnea Gastrointestinal Gastrointestinal: Reports nausea; Denies abdominal pain, constipation, diarrhea, melena or vomiting Genitourinary Genitourinary ED: Reports hematuria and urinary frequency; Denies dysuria Musculoskeletal Musculoskeletal: Denies arthralgias, back pain or myalgias Integumentary Denies rash Neurologic Neurologic: Reports weakness; Denies headache(s) or paresthesias Psychiatric Psychiatric: Denies anxiety Endocrine Endocrinology: Denies cold intolerance or heat intolerance Hematologic/Lymphatic Hematologic/Lymphatic: Reports systems reviewed and no addt'l complaints, except as documented EXAM Physical Exam Const Vital Signs: 03/11/24 14:56 03/11/24 15:57 03/11/24 16:01 Temperature 98.2 F 98.2 F Temperature Source Temporal Temporal Pulse Rate 77 72 72 Respiratory Rate 22 H 16 Blood Pressure 151/72 H 141/80 H 141/92 H Blood Pressure Mean 98 100 108 Pulse Ox 93 98 Oxygen Delivery Method Room Air Room Air 03/11/24 17:00 03/11/24 18:00 03/11/24 18:00 Temperature 98 F 97.9 F Temperature Source Temporal Oral Pulse Rate 74 63 67 Respiratory Rate 14 20 H 20 H Blood Pressure 142/72 H 137/73 H 137/73 H Blood Pressure Mean 95 94 94 Pulse Ox 98 97 97 Oxygen Delivery Method Room Air Room Air Room Air Positive well nourished and well developed Constitutional Narrative: Patient is somnolent. He awakes with verbal stimuli. He does answer questions appropriate. His psychomotor skills are slow. 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 General Appearance ED: well developed and NAD; Negative for cyanotic, diaphoretic or pallor HEENT Reports dry mucous membranes HEENT Narrative: Head is atraumatic, cephalic. Ears normal. Nares patent. Posterior pharynx is normal. Uvula is midline. There is no deviation or protrusion. Mouth ED: Yes dry mucous membranes Mouth: dry mucous membranes Eyes Eyes Narrative: Left pupil is reactive. There is no scleral icterus. There is no conjunctivitis. Neck no lymphadenopathy, supple and no JVD Neck Narrative: Trachea is midline. There is no stridor. Chest Wall inspection of chest normal and palpation of chest normal Resp normal respiratory effort and clear to auscultation bilaterally Cardio regular rate, regular rhythm, S1 normal heart sound and S2 normal heart sound; Negative for no murmurs GI normal to inspection, nondistended, normoactive bowel sounds, non-tender, non- distended and no masses; Negative for hepatosplenomegaly Back/Spine no CVA tenderness Extremity Extremity Narrative: Venous stasis dermatitis. General Extremety ED: Yes edema; Negative for tenderness General Extremity: edema Neuro oriented x3, CN's II-XII intact bilaterally and no sensory deficits noted Sensorium / Orientation: Negative for alert Psych mental status grossly normal Skin No no wounds and skin turgor normal Skin Narrative: Documented under the general appearance portion of the EMR General Skin Exam: Negative for jaundice or pallor MDM MDM MDM Narrative Medical decision making narrative: With documented fever decreased level consciousness need to workup for infection. With him having urinary symptoms will obtain UA, CBC, electrolyte panel and since he is on Coumadin we will get PT/INR especially since he has a history of supratherapeutic PTT/INR. Since his neuroexam is nonfocal CT imaging was not obtained at this point. Lab Data Attestation: I reviewed the patient's lab results. Lab results narrative: Urine is red in color. It is cloudy. There is ketones. Macro was positive for blood and leukoesterase. Negative for nitrites and bilirubin. Labs: Laboratory Results - last 24 hr 03/11/24 03/11/24 03/11/24 15:40 15:50 15:51 WBC 7.2 RBC 3.91 L Hgb 11.8 L Hct 35.7 L MCV 91.3 MCH 30.2 MCHC 33.1 RDW Std Deviation 43.6 RDW Coeff of Vaishnavi 13.0 Plt Count 156 MPV 9.8 Immature Gran % (Auto) 0.300 Neut % (Auto) 69.4 Lymph % (Auto) 19.3 [place] % (Auto) 9.8 Eos % (Auto) 0.8 Baso % (Auto) 0.4 Absolute Neuts (auto) 5.0 Absolute Lymphs (auto) 1.38 Nucleated RBC % 0 PT 35.0 H INR 3.5 Sodium 135 L Potassium 2.5 L* Chloride 106 Carbon Dioxide 22.0 Anion Gap 7 BUN 12 Creatinine 0.93 Est GFR (MDRD) Af Amer 103 Est GFR (MDRD) Non-Af 85 BUN/Creatinine Ratio 12.9 Glucose 103 Lactic Acid 1.2 Calcium 8.2 L Total Bilirubin 0.50 Direct Bilirubin 0.19 AST 24 ALT 35 Alkaline Phosphatase 123 H Total Protein 6.2 L Albumin 3.3 Globulin 2.9 Urine Color Red Urine Clarity Cloudy Urine pH 6.5 Ur Specific Page 1.010 Urine Protein 100 H Urine Glucose (UA) Normal Urine Ketones 5 H Urine Occult Blood 250 H Urine Nitrite Negative Urine Bilirubin Negative Urine Urobilinogen Normal Ur Leukocyte Esterase 25 H Urine RBC > 100 SEEN Urine WBC 0-5 SEEN Ur Squamous Epith Cells 0 SEEN Urine Bacteria RARE Urine Mucus 0 SEEN POC Glucose 97 Radiography Chest X-Ray - ED: 1 View and Read by ED Physician (Single view portable chest x- ray reveals no acute abnormality. Cardiac silhouette size normal. Lung parenchyma reveals minimal chronic changes. There is Mediport noted. Osseous structures unremarkable. Hilum is unremarkable. There is no evidence of pneumoperitoneum.) Diagnostic Testing: Clinical Impression(s) from Imaging Studies Chest X-Ray 03/11/24 15:55 IMPRESSION: Kinked MediPort unchanged. Normal x-ray examination of the chest. Electronically Signed: Pawel Blackwood MD at 16:07 EDT Reading Location ID and State: [facility] / [place] Tel , Service support , Abdomen/Pelvis CT 03/11/24 16:55 IMPRESSION: Colonic ileus. Gallstone. Electronically Signed: Pawel Blackwood MD at 17:45 EDT , CT reveals a large gallstone. This was noted on prior. Radiology is also reporting colonic ileus. Has not the reason for his visit and does not his GI symptoms. EKG Initial EKG: Attestation: I personally reviewed and interpreted this EKG as follows: Interpretation: Sinus Rhythm (Rate is 71. EKG is normal. MS interval is 200 ms. QRS 94 ms. QT 408 ms. Veyo is normal.) Discharge Plan Triage Chief Complaint: Complaint ED Provider: Pepe Carr Dx/Rx/DC Orders Clinical Impression: Gross hematuria, HTN (hypertension), History of lymphoma, History of DVT of lower extremity, Anticoagulant long-term use, Cholelithiasis Instructions: ED Hematuria Prescriptions: No Action warfarin 7.5 mg tablet 7.5 mg PO DAILY lamotrigine [Lamictal] 200 MG tablet 200 mg PO BID zonisamide 100 MG capsule 400 mg PO DAILY lacosamide 200 mg tablet 200 mg PO BID levothyroxine 88 mcg tablet 88 mcg PO DAILY levetiracetam 750 mg tablet 1,500 mg PO BID meloxicam 15 mg tablet 15 mg PO DAILY zonisamide 100 mg capsule 200 mg PO QPM fluoxetine 40 mg capsule 40 mg PO DAILY Primary Care Provider: Hari Oneill Referrals: Hari Oneill DO [Primary Care Provider] - Devin Castellanos MD [Med Staff - Active Staff] - 5-7 Days Activity Restrictions/Additional Instructions: Call Dr. Castellanos's office. Let them know you were referred from the ER because you are having visible blood in your urine. Print Language: Gabonese Disposition Disposition: Home, Self Care
[2024-03-11 16:12] LABS: Bedside Glucose 97 mg/dL (74-106)
[2024-03-11 16:19] LABS: Absolute Lymphocyte Count 1.38 X10^3/uL (0.83-4.51); Basophil# 0.03 X10^3/uL; Basophil% 0.4 % (0-1); Eosinophil# 0.06 X10^3/uL; Eosinophils% 0.8 % (0-5); Hematocrit 35.7 % (40-54); Hemoglobin 11.8 g/dL (13.0-16.5); Lymphocyte # 1.38 X10^3/ul (0.83-4.51); Lymphocyte % 19.3 % (19-41); Mean Corp Hgb Conc 33.1 g/dL (32-36); Mean Corpuscular Hgb 30.2 pg (27.0-32.0); Mean Corpuscular Volume 91.3 fL (80-94); Mean Platelet Vol. 9.8 fl (6.2-12.0); Monocyte% 9.8 % (0-10); NRBC Flagged by Analyzer 0 % (0-5); Neutrophil # 4.97 X10^3/uL (2.7-7.7); Neutrophil % 69.4 % (47-70); Platelet Count 156 K/mm3 (150-450); RBC Distribution Width SD 43.6 fl (35.1-43.9); Red Blood Count 3.91 M/mm3 (4.6-6.2); White Blood Count 7.2 K/mm3 (4.4-11.0)
[2024-03-11 16:21] LABS: Red Blood Cells-Urine > 100 SEEN /hpf (0-5)
[2024-03-11 16:22] LABS: Bacteria RARE /hpf (None Seen); White Blood Cells 0-5 SEEN /hpf (0-5)
[2024-03-11 16:26] LABS: AST(SGOT) 24 U/L (15-37); Alanine Aminotransfer ALT/SGPT 35 U/L (16-61); Albumin, Serum 3.3 g/dL (3.2-5.0); Alkaline Phosphatase 123 U/L (45-117); Anion Gap 7 (5-15); BUN 12 mg/dL (7-18); BUN/Creat Ratio 12.9 RATIO (10-20); Bilirubin, Direct 0.19 mg/dL (0.00-0.30); Calcium,Total 8.2 mg/dL (8.5-10.1); Chloride 106 mmol/L (98-107); Creatinine, Serum 0.93 mg/dL (0.70-1.30); EST Glomerular Filtration Rate 85 mL/min (>60); Est Glom Filt Rate - Afr Amer 103 mL/min (>60); Globulin 2.9 g/dL (2.2-4.2); Glucose 103 mg/dL (74-106); Potassium 2.5 mmol/L (3.5-5.1); Protein, Total 6.2 g/dL (6.4-8.2); Sodium Level 135 mmol/L (136-145)
[2024-03-11 16:27] LABS: International Normalized Ratio 3.5
[2024-03-11 16:37] LABS: Lactic Acid 1.2 mmol/L (0.4-1.9)
--- NOTE | 2024-03-11 16:55 | CT_ITS ---
STUDY: CT ABDOMEN AND PELVIS WITH CONTRAST REASON FOR EXAM: Male, 68 years old. Painless gross hematuria RADIATION DOSAGE (If Supplied By Facility): CTDIvol = ( 20.02 ) mGy, DLP = ( 1347.09 ) mGycm TECHNIQUE: Transaxial images were obtained from the dome of the diaphragm to the symphysis pubis without oral contrast. IV 100mL Isovue-370 was administered. Sagittal and coronal images were reconstructed. Individualized dose optimization techniques were used for this CT. The protocol utilizes one or more of the following dose reduction techniques: automated exposure control, adjustment of mA and/or kV according to patient size,and/or use of iterative reconstruction technique. COMPARISON: CT abdomen and pelvis September 17, 2019. FINDINGS: The visualized lung bases are unremarkable. The visualized portions of the heart are within normal limits. Normal liver. 18 mm gallstone near the neck of the gallbladder unchanged. Normal spleen. Normal pancreas. Normal bilateral adrenal glands. Normal right kidney. Normal left kidney. Normal visualized stomach. Normal small intestine. Air-fluid levels in distended colon. Appendix not identified. Normal abdominal aorta. IVC filter present below the renal veins. Normal retroperitoneum. Normal urinary bladder. Subcutaneous anterior abdominal wall varicosities. Normal osseous structures. CT/Abdomen/Pelvis W IV Cont ONLY IMPRESSION: Colonic ileus. Gallstone. Electronically Signed: Pawel Blackwood MD at 17:45 EDT ,
[2024-03-11 17:00] VITALS: BP 142/72; PULSE 74; RESP 14; TEMP 36.6; O2SAT 98
[2024-03-11 18:00] VITALS: BP 137/73; PULSE 63; PULSE 67; RESP 20; TEMP 36.6; O2SAT 97
[2024-03-11 18:38] VITALS: BP 137/79; PULSE 72; RESP 16; TEMP 36.6; O2SAT 98
== END 2024-03-11 18:41 | disposition home or self-care (01) ==
PROVIDERS: Emergency Provider Emergency Medicine; PCP Student in an Organized Health Care Education/Training Program; Visit Provider Emergency Medicine
DX: K80.20 Calculus of gallbladder without cholecystitis without obstruction (principal); I10 Essential (primary) hypertension; Z79.01 Long term (current) use of anticoagulants; Z79.899 Other long term (current) drug therapy; Z85.72 Personal history of non-Hodgkin lymphomas; Z86.718 Personal history of other venous thrombosis and embolism
CPT/HCPCS: 71045; 74177; 80048; 80076; 81001; 82962; 83605; 85025; 85610; 87040; 93005; 96360; 96361; 99284; J7030; Q9967; A4216

== ENCOUNTER 2024-03-21 10:08 | Day surgery (SDC) | payer MEDICARE, SELFPAY ==
[2024-03-20 11:21] LABS: Potassium 3.3 mmol/L (3.5-5.1)
[2024-03-21] VITALS (7 sets, daily range): BP systolic 116–162; BP diastolic 61–111; PULSE 69–78; RESP 16–18; TEMP 36.1–36.4; O2SAT 92–100; BMI 37.0
--- NOTE | 2024-03-21 10:53 | PRE.ANES_ITS ---
ASA Classification* ASA Classification ASA Classification: 3 Assessment & Plan Anesthesia* Anesthesia Assessment Anesthesia Assessment: Discussed sedation and/or anesthesia options, risks, benefits, and alternatives with patient/parents/legal guardian/POA. Questions invited. The patient/parents/legal guardian/POA seems to understand and agrees to proceed with anesthesia plan. Reviewed the physical assessment, medical history, allergy history and patient home medications list prior to surgery/procedure/anesthetic and documented any changes. Performed airway and anesthesia risk assessments. Anesthesia Type Anesthesia Type: MAC (GA bkup) Anesthesia Focused Assessment* Airway Assessment Mouth opens: >3 cm Mallampati Score: II Focused Labs Anesthesia Preop lab: CBC WBC 7.2 K/mm3 (4.4-11.0) 03/11/24 15:40 RBC 3.91 M/mm3 (4.6-6.2) L 03/11/24 15:40 Hgb 11.8 g/dL (13.0-16.5) L 03/11/24 15:40 Hct 35.7 % (40-54) L 03/11/24 15:40 Plt Count 156 K/mm3 (150-450) 03/11/24 15:40 CHEMISTRY Potassium 3.3 mmol/L (3.5-5.1) L 03/20/24 10:28 Sodium 135 mmol/L (136-145) L 03/11/24 15:40 Magnesium 2.0 mg/dL (1.6-2.6) 09/17/19 15:30 BUN 12 mg/dL (7-18) 03/11/24 15:40 Creatinine 0.93 mg/dL (0.70-1.30) 03/11/24 15:40 Glucose 103 mg/dL (74-106) 03/11/24 15:40 POC Glucose 97 mg/dL (74-106) 03/11/24 15:51 TSH 1.49 uIU/mL (0.358-3.74) 03/12/14 23:59 COAG PT 35.0 SECONDS (11.7-14.9) H 03/11/24 15:40 Pre-Assessment Diagnosis/Proposed Procedure Planned Operative Procedure(s): CYSTO URETEROSCOPY BIOPSY AND STENT PLACEMENT RIGHT Anesthesia History Anesthesia History - 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 When Was Last Pacemaker Check QUESTION #4 FULL TEXT: You/Your Family Experience fever (hyperthermia) with Anesthesia Last Oral Intake Last Oral intake: Last Oral Intake NPO since Meds taken in AM with sips of water? Meds patient instructed to take am of surgery PONV PONV - associate director of biostatistics: PONV - associate director of biostatistics Female No 03/19/24 14:05 HX of Motion Sickness Yes 03/19/24 14:05 HX of N/V After Surgery No 03/19/24 14:05 Non-Smoker Yes 03/19/24 14:05 Duration of Surgery greater Yes 03/19/24 14:05 than 60 minutes Number of Risk Factors 3 03/19/24 14:05 PONV Score Moderate Risk 03/19/24 14:05 Height & Weight Height & Weight: Anesthesia: Height & Weight Height 6 ft 03/20/24 08:41 Weight: 122.016 kg 03/20/24 08:41 Respiratory Assessment Respiratory Assessment - associate director of biostatistics: Respiratory Tract Infection Hx - associate director of biostatistics Hx Respiratory Tract Infection No 03/19/24 14:05 STOP Sleep Apnea STOP Sleep Apnea - associate director of biostatistics: STOP Sleep Apnea - associate director of biostatistics Hx Hypertension No 03/19/24 14:05 Hx Sleep Apnea No 03/19/24 14:05 CPAP No 09/17/19 20:07 BIPAP No 09/17/19 20:07 Do you snore loudly (louder Yes 03/19/24 14:05 than talking or can be heard Do you often feel tired/ Yes 03/19/24 14:05 fatigued/ sleepy during daytime? Has anyone observed you stop No 03/19/24 14:05 breathing during sleep? STOP Results Positive 03/19/24 14:05 QUESTION #5 FULL TEXT : Do you snore loudly (louder than talking or can be heard through closed doors)? 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 Specify any problems Hx of Preganancy in last 3 N/A 03/19/24 14:05 Months Nurse Filling Out Transfusion DSCHRIBER 03/19/24 14:05 & Questions: Date: 03/19/24 03/19/24 14:05 Time: 14:06 03/19/24 14:05 Patient unable to answer at this time (ie. confused, unrespo /Reproduction History /Reproductive History - associate director of biostatistics: /Reproductive Hx- associate director of biostatistics Hx Now No 03/19/24 14:05 Gestational Age (in weeks): EDC: Hx Hx Para Hx Section SAB No 03/19/24 14:05 Active Medications Active Medications: Current Medications Generic Name Dose Route Start Last Admin Trade Name Freq PRN Reason Stop Dose Admin Cefazolin Sodium 2 gm/ Sodium 110 mls @ 150 mls/hr 03/21/24 13:00 Chloride IV 03/21/24 13:43 PREOP ONE Lactated Ringer's 1,000 mls @ 15 mls/hr 03/21/24 10:30 IV .Q48H FRANCOIS PFSH Medical History Loss of one eye Wears glasses Cancer Thyroid disease Arthritis Prostate disease Bladder disease Low iron High cholesterol Diarrhea Gastric reflux Non-smoker History of pain when walking Heart murmur Localized swelling of both lower legs Abnormal biliary HIDA scan Anxiety and depression HTN (hypertension) History of DVT of lower extremity Seizure disorder Home Medications ?Medication ?Instructions ?Recorded ?Last Taken ?Type lamotrigine 200 mg tablet 200 mg PO BID SEIZURES 03/12/14 03/10/24 History (Lamictal) lacosamide 200 mg tablet 200 mg PO BID SEIZURES 09/17/19 03/10/24 History zonisamide 100 mg capsule 300 mg PO BID SEIZURES 09/17/19 03/10/24 History warfarin 7.5 mg tablet 7.5 mg PO DAILY BLOOD THINNER 09/12/21 03/16/24 History fluoxetine 40 mg capsule 40 mg PO DAILY DEPRESSION 03/11/24 03/10/24 History levetiracetam 750 mg tablet 1,500 mg PO BID SEIZURES 03/11/24 03/10/24 History levothyroxine 88 mcg tablet 75 mcg PO DAILY THYROID 03/11/24 03/10/24 History potassium chloride 20 mEq/15 mL 20 meq (15 mL) PO BID #450 mL 03/11/24 Unknown Rx oral liquid cyanocobalamin-liver extract tablet 1 tab PO DAILY 03/19/24 Unknown History ferrous fumarate 55 mg (18 mg 18 mg PO DAILY 03/19/24 Unknown History iron) tablet,extended release furosemide 40 mg tablet 40 mg PO DAILY 03/19/24 Unknown History pantoprazole 40 mg tablet,delayed 40 mg PO DAILY 03/19/24 Unknown History release (Protonix) Allergy/AdvReac Type Severity Reaction Status Date / Time No Known Allergies Allergy Verified 03/19/24 13:48 Surgical History Hx of colonoscopy History of vascular access device Hx of vascular surgery Hx of left cataract extraction Social History household members: spouse Smoking Status: Never smoker Review of Systems (Anesthesia) ROS Narrative System reviewed and no additional complaints, except as documented.
[2024-03-21] MEDS: Lactated Ringers 1,000 ML 15 ML IV (11:08)
--- NOTE | 2024-03-21 12:24 | HP.PCM_ITS ---
HPI - General General Date of Service: 03/21/24 Chief Complaint: Resection of bladder tumor HPI Narrative EDER VILLANUEVA, is a 68 M who presents for resection of a bladder tumor that is been bleeding off-and-on or and resected tumor in place Mitomycin-C in the bladder. [facility] Medical History Loss of one eye Wears glasses Cancer Thyroid disease Arthritis Prostate disease Bladder disease Low iron High cholesterol Diarrhea Gastric reflux Non-smoker History of pain when walking Heart murmur Localized swelling of both lower legs Abnormal biliary HIDA scan Anxiety and depression HTN (hypertension) History of DVT of lower extremity Seizure disorder Home Medications ?Medication ?Instructions ?Recorded ?Last Taken ?Type lamotrigine 200 mg tablet 200 mg PO BID SEIZURES 03/12/14 03/21/24 History (Lamictal) lacosamide 200 mg tablet 200 mg PO BID SEIZURES 09/17/19 03/10/24 History zonisamide 100 mg capsule 300 mg PO BID SEIZURES 09/17/19 03/20/24 History warfarin 7.5 mg tablet 7.5 mg PO DAILY BLOOD THINNER 09/12/21 03/16/24 History fluoxetine 40 mg capsule 40 mg PO DAILY DEPRESSION 03/11/24 03/10/24 History levetiracetam 750 mg tablet 1,500 mg PO BID SEIZURES 03/11/24 03/21/24 History levothyroxine 88 mcg tablet 75 mcg PO DAILY THYROID 03/11/24 03/21/24 History potassium chloride 20 mEq/15 mL 20 meq (15 mL) PO BID #450 mL 03/11/24 Unknown Rx oral liquid cyanocobalamin-liver extract tablet 1 tab PO DAILY 03/19/24 Unknown History ferrous fumarate 55 mg (18 mg 18 mg PO DAILY 03/19/24 Unknown History iron) tablet,extended release furosemide 40 mg tablet 40 mg PO DAILY 03/19/24 Unknown History pantoprazole 40 mg tablet,delayed 40 mg PO DAILY 03/19/24 Unknown History release (Protonix) Allergy/AdvReac Type Severity Reaction Status Date / Time No Known Allergies Allergy Verified 03/21/24 10:55 Surgical History Hx of colonoscopy History of vascular access device Hx of vascular surgery Hx of left cataract extraction Social History household members: spouse Smoking Status: Never smoker Vital Signs Vital Signs Vital Signs: 03/21/24 11:00 03/21/24 11:00 Temperature 97.5 F L Temperature Source Temporal Pulse Rate 69 Respiratory Rate 18 Respiratory Pattern Normal Blood Pressure 116/61 Blood Pressure Mean 79 Blood Pressure Source Monitor Blood Pressure Position Semi-Fowlers Blood Pressure Location Left Arm Pulse Ox 95 Oxygen Delivery Method Room Air Weight Weight: 123.8 kg Body Mass Index (BMI) 37.0 Results Lab / Micro Data 03/20/24 10:28
[2024-03-21] MEDS: Cefazolin 3 GM in 0.9% Normal Saline (100mL Bag) 100 ML IV (12:49)
--- NOTE | 2024-03-21 13:00 | TISS_PTH ---
PATIENT: EDER VILLANUEVA LOC: [facility] [place] U#:[id number] AGE/SX: 68/M ROOM: RE03/21/[address]: Dr. Devin Castellanos MD : [id number] BED: DIS: 03/21/2024 SPEC #: [id number] RECD: 03/21/24 16:55 STATUS: ASHLEY DELANEY #: [id number] JOSETTE: 03/21/24 13:[address]: Devin Castellanos DEPT: SURGICAL PATHOLOGY RECD BY: Kelly Alvarenga ENTERED: 03/24/24 07:50 SP TYPE: Tissue Bx [facility] DR: MD Dr. Hari Soto, DO Tissues: Pelvis, NOS Procedures: Surgery Specimen Level IV HEADER OPERATION: Ureteroscopy, biopsy right renal pelvis PRE-OP DIAGNOSIS: Gross hematuria TISSUE SUBMITTED: Right renal pelvis biopsy MICROSCOPIC DIAGNOSIS Right renal pelvis, biopsy: Scant detached benign epithelial cells and organizing blood clots. AM/ 03/25/2024 MICROSCOPIC DESCRIPTION Slides are reviewed. GROSS DESCRIPTION Received in fixative is one container labeled with the patient's name and designated Right renal pelvis biopsy. The specimen consists of multiple irregular fragments of larsen-pink soft tissue that in aggregate measure 0.4 x 0.1 x 0.1 cm. The specimen is totally submitted in one cassette. 03/24/2024 TC:5 CPT:13444
--- NOTE | 2024-03-21 13:50 | OP.PCM_ITS ---
Report of Operation Date of Procedure: 03/21/24 Pre-Operative Diagnosis: Recurrent bleeding from right kidney lesion Post-Operative Diagnosis: Recurrent bleeding from right kidney renal pelvic lesion Surgery/Procedure Performed:: Cystoscopy balloon dilation of right ureter right ureteroscopy biopsy of renal pelvic lesion and fulguration of lesion with laser Description of Surgical Findings:: 68-year-old male was taken back to the operating room has a history of recurrent bleeding coming from the right kidney in the office we saw blood coming from the right ureteral orifice CT scan was done which was normal. Organ to proceed with a diagnostic cystoscopy and ureteroscopy on the right side Patient was taken back to the operating room after smooth induction of general anesthesia he was placed in dorsolithotomy position. The penis testicles were prepped and draped in usual sterile fashion went into the bladder with a 21 Tanzanian rigid cystourethroscope identified the ureteral orifice inside the bladder was completely normal no tumors or stones within the bladder the trigone was normal no tumors or stones within the bladder or prostate prostate was normal then I cannulated the right ureteral Augmentin. I then balloon dilated t he distal right ureter with a 12 Tanzanian 10 cm balloon dilator left the wire in place and then over the wire went in with a flexible ureteroscope was able to get up to the kidney and inside the kidney and the renal pelvis there was a reddish right reddish lesion in renal pelvis on both the sidewalls this look like the source of the bleeding looked bright red like recent bleeding that happened and submucosal hemorrhage. I attempted to put a wire through the ureteroscope but it was not working so at the switch over to another ureteroscope and then using the new ureteroscope I was unable to use a laser fiber and a biopsy was done with a biopsy forcep little specimen was sent off on the Telfa cup and then I then fulgurated the lesion with a thulium high power laser after fulgurating both the lesions completely there was no bleeding from the lesions I then worked my way down the ureter emptied out the bladder and then patient anesthetic was reversed no stent was placed. He will to stay off his Coumadin for at least 2 weeks if not longer and he will follow-up in the office to go over the results of the biopsy. Surgeon: Devin Castellanos Type of Anesthesia: General Drains: none Estimated Blood Loss (mL): 0 Admit VTE Documentation VTE Present on Admission: No VTE Mechan Device Prophylaxis: SCD's VTE Pharm Prophylaxis ordered?: No
--- NOTE | 2024-03-21 13:50 | PCM.DC ---
Discharge Instructions Diet Discharge Diet: Light diet - advance as tolerated Activity Discharge Activity: May Not Drive (while taking narcotic pain medications.) Dressing / Incision Call your doctor if you observe: Fever of 101 or Higher Additional Dressing/Incision Instructions:: Hold Coumadin Follow Up Care Please Follow Up With: Devin Castellanos MD When: Call [phone] for an appointment Test Results: Test results from this visit will be discussed in further detail at your follow-up appointment, if applicable. Discharge Plan Admission Primary Reason for Your Visit: biopsy and laser bleeding lesion right kidney Attending Provider: Devin Castellanos Primary Care Provider: Hari Oneill Consulting Providers: Bruce Nelson Instructions Print Language: Tamazight Discharge Orders/Prescriptions Prescriptions: New ibuprofen 600 mg tablet 600 mg PO Q6H PRN (Reason: fever or pain) Qty: 20 0RF Continued lamotrigine [Lamictal] 200 MG tablet 200 mg PO BID zonisamide 100 MG capsule 300 mg PO BID lacosamide 200 mg tablet 200 mg PO BID levothyroxine 88 mcg tablet 75 mcg PO DAILY levetiracetam 750 mg tablet 1,500 mg PO BID fluoxetine 40 mg capsule 40 mg PO DAILY potassium chloride 20 mEq/15 mL liquid 20 meq PO BID Qty: 450 0RF furosemide 40 mg tablet 40 mg PO DAILY pantoprazole [Protonix] 40 mg tablet,delayed release (DR/EC) 40 mg PO DAILY cyanocobalamin-liver extract Tablet 1 tab PO DAILY ferrous fumarate 55 mg (18 mg iron) tablet extended release 18 mg PO DAILY Held warfarin 7.5 mg tablet 7.5 mg PO DAILY Hold Instructions: Resume on 04/04/24. Referrals / Follow Up: Hari Oneill DO [Primary Care Provider] - Devin Castellanos MD [Med Staff - Active Staff] - Disposition Disposition (needs filled in before D/C Order can be placed): Home, Self Care
--- NOTE | 2024-03-21 14:44 | PCM.POST.ANE ---
Anesthesia: Postop Eval I Current Vital Signs Temperature: 97 F Pulse Rate: 78 Blood Pressure: 162/85 Respiratory Rate: 16 Pulse Ox: 92 Oxygen Delivery Method: Nasal Cannula Assessment Airway patent: Yes Spontaneous unlabored respirations: Yes Mental status: Awake and Calm nausea: No Vomiting: No Anesthesia Complication: No Fluid Hydration Crystalloid volume administer (ml): 500 Total IV fluid infused: 500 Progress Note Anesthesia document: Postop Eval 1 completed: Yes
[2024-03-21] MEDS: Ketorolac 15 MG/ML Vial IV (15:10)
[2024-03-21 15:18] LABS: INR Fingerstick 1.7; Prothrombin Time Fingerstick 17.9 SEC (11.7-14.9)
== END 2024-03-21 15:30 | disposition home or self-care (01) ==
LOC: SDC 10:12 → AC 10:14
PROVIDERS: Anesthesiology; PCP Student in an Organized Health Care Education/Training Program; Referring Provider Urology; Visit Provider Urology
PROC: (CPT 50575; principal; 2024-03-21 12:50)
DX: N28.89 Other specified disorders of kidney and ureter (principal); G40.909 Epilepsy, unspecified, not intractable, without status epilepticus; E78.00 Pure hypercholesterolemia, unspecified; I10 Essential (primary) hypertension; E07.9 Disorder of thyroid, unspecified; K21.9 Gastro-esophageal reflux disease without esophagitis; F32.A Depression, unspecified; F41.9 Anxiety disorder, unspecified; Z79.01 Long term (current) use of anticoagulants; Z79.890 Hormone replacement therapy; Z79.899 Other long term (current) drug therapy; Z86.718 Personal history of other venous thrombosis and embolism
CPT/HCPCS: 52354; 00910; 36415; 36416; 76000; 84132; 85610; 88305; J7120; C1769; J2405

== ENCOUNTER 2025-02-27 09:50 | Inpatient (IN) | payer MEDICARE, SELFPAY ==
[2025-02-27] VITALS (10 sets, daily range): BP systolic 129–167; BP diastolic 66–115; PULSE 68–86; RESP 15–25; TEMP 36.1–36.4; O2SAT 97–100; BMI 39.8; BMI 41.3
--- NOTE | 2025-02-27 10:27 | ED.VIS.GI ---
HPI HPI - GI History of Present Illness Chief Complaint: Abd Pain Informant: patient and EMS Narrative Narrative: Patient states he presents for left lower quadrant abdominal pain that he woke up with this morning along with some nausea. No vomiting. He is had several bouts of diarrhea no blood. Denies any known fevers or sick contacts. No travel out of the area. He is a limited historian, basically answers everything with yes/no questions until he talks about the fact that he has been drinking lots of water and then after urinating he feels like he needs to keep drinking. He cannot tell me how long this has been going on but it has happened in the past. States he is not a diabetic. Denies any radiation of his abdominal pain into his back. No chest symptoms or dyspnea. [facility] Medical History Loss of one eye Wears glasses Cancer Thyroid disease Arthritis Prostate disease Bladder disease Low iron High cholesterol Diarrhea Gastric reflux Non-smoker History of pain when walking Heart murmur Localized swelling of both lower legs Abnormal biliary HIDA scan Anxiety and depression HTN (hypertension) History of DVT of lower extremity Seizure disorder Home Medications Medication Instructions Recorded Last Taken Type lamotrigine 200 mg tablet 200 mg PO BID SEIZURES 03/12/14 03/21/24 History (Lamictal) lacosamide 200 mg tablet 200 mg PO BID SEIZURES 09/17/19 03/10/24 History zonisamide 100 mg capsule 300 mg PO BID SEIZURES 09/17/19 03/20/24 History warfarin 7.5 mg tablet 7.5 mg PO DAILY BLOOD THINNER 09/12/21 03/16/24 History Held on 03/21/24. Instructions: Resume on 04/04/24. fluoxetine 40 mg capsule 40 mg PO DAILY DEPRESSION 03/11/24 03/10/24 History levetiracetam 750 mg tablet 1,500 mg PO BID SEIZURES 03/11/24 03/21/24 History levothyroxine 88 mcg tablet 75 mcg PO DAILY THYROID 03/11/24 03/21/24 History potassium chloride 20 mEq/15 mL 20 meq (15 mL) PO BID #450 mL 03/11/24 Unknown Rx oral liquid cyanocobalamin-liver extract tablet 1 tab PO DAILY 03/19/24 Unknown History ferrous fumarate 55 mg (18 mg 18 mg PO DAILY 03/19/24 Unknown History iron) tablet,extended release furosemide 40 mg tablet 40 mg PO DAILY 03/19/24 Unknown History pantoprazole 40 mg tablet,delayed 40 mg PO DAILY 03/19/24 Unknown History release (Protonix) ibuprofen 600 mg tablet 600 mg PO Q6H PRN fever or pain 03/21/24 Unknown Rx #20 tabs Allergy/AdvReac Type Severity Reaction Status Date / Time No Known Allergies Allergy Verified 02/27/25 09:55 Surgical History Hx of colonoscopy History of vascular access device Hx of vascular surgery Hx of left cataract extraction Social History household members: spouse Smoking Status: Never smoker ROS ROS ED Constitutional Constitutional ED: Reports fatigue; Denies chills or fever(s) Eyes Eyes: Denies change in vision or diplopia ENT ENT ED: Denies rhinorrhea or sore throat Cardiovascular Cardiovascular: Reports leg edema; Denies chest pain or palpitations Respiratory/Chest Respiratory/Chest: Denies cough or dyspnea Gastrointestinal Gastrointestinal: Reports abdominal pain, diarrhea and nausea; Denies hematochezia, melena or vomiting Genitourinary Genitourinary ED: Denies dysuria or hematuria Musculoskeletal Musculoskeletal: Denies back pain or neck pain Integumentary Denies abscess or rash Neurologic Neurologic: Denies headache(s), paresthesias or weakness Psychiatric Psychiatric: Denies anxiety or suicidal thoughts Endocrine Endocrinology: Reports polydipsia and polyuria EXAM Physical Exam Const Vital Signs: 02/27/25 09:56 02/27/25 11:50 02/27/25 13:00 Temperature 97.3 F L Temperature Source Temporal Pulse Rate 86 71 70 Respiratory Rate 25 H 17 Blood Pressure 167/76 H 142/72 H 154/78 H Blood Pressure Mean 106 95 103 Pulse Ox 97 97 98 Oxygen Delivery Method Room Air Room Air Room Air Positive well nourished, well developed and obese General Appearance ED: well developed and NAD Nutritional Appearance: obese HEENT Reports moist mucous membranes normocephalic and atraumatic Eyes PERRL and EOMs intact bilaterally Neck full ROM and supple Resp normal respiratory effort and clear to auscultation bilaterally Cardio regular rate, regular rhythm and no murmurs Rate: Negative for tachycardic GI non-tender GI Narrative: Obese versus distended abdomen. Hypoactive bowel sounds. No tenderness. No pulsatile mass palpable but obesity/distention limits exam. Otherwise normal inspection. No Shade sign. Auscultation: hypoactive bowel sounds Palpation: soft Back/Spine no CVA tenderness General Back: other FROM Extremity General Extremety ED: Yes edema; Negative for pulses abnormal or tenderness General Extremity: edema bilateral lower extremity Details: moderate (With symmetric changes of chronic stasis dermatitis, no tenderness); Negative for pulses abnormal Neuro oriented x3, CN's II-XII intact bilaterally and no sensory deficits noted Sensorium / Orientation: awake and alert Motor Exam: strength 5/5 throughout Psych thought process normal Psych Narrative: Flat affect Skin no rashes or lesions noted and no wounds MDM MDM MDM Narrative Medical decision making narrative: Patient says he is in pain, he is not necessarily in a severe amount of pain, but he indicates that it seems to be relatively focal in the left lower quadrant. However he is not tender. This brings a stone into the differential as well as other intestinal/intra-abdominal etiologies, so distended and relatively obese that it is hard to rule out a AAA or diverticulitis. For these reasons ordered a CT of the abdomen and pelvis with IV contrast not just without, I reviewed the images and the report which I agree with, he has a significantly distended transverse colon that is probably responsible for his distention, but there is no sign of inflammation, perforation, or obvious transition point/obstruction. He has a gallstone but he is not having biliary colic here for me. His labs are noted, sodium is 121 which is the main reason I think he needs to be admitted, and his potassium is 3.0 we started replacing both of those while in the emergency department. Liver enzymes and lipase are normal, his beta hydroxybutyrate is normal which was sent because he has a bicarb that is just below 20. 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 He is therapeutic on his INR 2.5. Given his lack of abdominal tenderness and vomiting, I do not think he needs to have any emergent intervention on the CT findings of partial colonic distention. Discussed with hospitalist, will admit to PCU. Lab Data Attestation: I reviewed the patient's lab results. Labs: Laboratory Results - last 24 hr 02/27/25 02/27/25 10:15 11:09 WBC 8.3 RBC 3.77 L Hgb 11.0 L Hct 32.5 L MCV 86.2 MCH 29.2 MCHC 33.8 RDW Std Deviation 43.1 RDW Coeff of Vaishnavi 13.8 Plt Count 193 MPV 8.9 Immature Gran % (Auto) 0.600 Neut % (Auto) 71.4 H Lymph % (Auto) 16.7 L [place] % (Auto) 9.2 Eos % (Auto) 1.9 Baso % (Auto) 0.2 Absolute Neuts (auto) 5.9 Absolute Lymphs (auto) 1.39 Nucleated RBC % 0 PT 27.7 H INR 2.5 Sodium 121 L Potassium 3.0 L Chloride 89 L Carbon Dioxide 19.7 L Anion Gap 12 BUN 15 Creatinine 0.81 Estim Creat Clear Calc 118.12 Est GFR (MDRD) Non-Af 94 BUN/Creatinine Ratio 18.2 Glucose 100 H Lactic Acid 1.4 Calcium 8.0 Total Bilirubin 0.38 AST 29 ALT 24 Alkaline Phosphatase 113 Total Protein 6.1 Albumin 3.8 Globulin 2.3 Albumin/Globulin Ratio 1.6 b-Hydroxybutyric mmol/L 0.1 Urine Color Yellow Urine Clarity Clear Urine pH 7.0 Ur Specific [place] 1.010 Urine Protein 15 H Urine Glucose (UA) Normal Urine Ketones Negative Urine Occult Blood Negative Urine Nitrite Negative Urine Bilirubin Negative Urine Urobilinogen Normal Ur Leukocyte Esterase Negative Urine RBC 0 SEEN Urine WBC 0 SEEN Ur Squamous Epith Cells 0 SEEN Urine Bacteria 0 SEEN Urine Mucus 0 SEEN ABG Data ABG results: ABG 02/27/25 11:34 Specimen Type SAIGE Sample Site Not entered VBG pH 7.38 VBG pO2 55 H VBG HCO3 21 L VBG Total CO2 22 L VBG O2 Sat (Calc) 88 H VBG Base Excess -5 L POC Mix VBG pCO2 Pt Tmp 34.8 L O2 Delivery Device Not entered Radiography Diagnostic Testing: Clinical Impression(s) from Imaging Studies Abdomen/Pelvis CT 02/27/25 13:15 IMPRESSION: 1. Gallstone 2. Gaseous distention of the transverse colon without wall thickening, pneumatosis or site of obstruction. No change. 3. Marguerite infiltration of the small bowel mesentery. No lymphadenopathy. This can be seen with mesenteric adenitis. 4. IVC filter in place. Possible thrombosis of the IVC below the filter with numerous abdominal wall collaterals. Reading Location: [id number] Management Discussion w/another healthcare provider: Hospitalist Discharge Plan Triage Chief Complaint: Abd Pain ED Provider: Khang Osuna Dx/Rx/DC Orders Clinical Impression: Hyponatremia, Hypokalemia, Colon distention, Abdominal pain, acute, left lower quadrant, Warfarin anticoagulation Primary Care Provider: Hari Oneill Disposition Disposition: Acute Care Hospital [facility]
[2025-02-27] MEDS: 0.9% Normal Saline (1000mL) 1,000 ML 100 ML IV ×2 (10:40→16:27)
[2025-02-27 10:46] LABS: Hematocrit 32.5 % (40-54); Hemoglobin 11.0 g/dL (13.0-16.5); Immature Granulocytes Count 0.050 X10^3/uL (0.0-0.0); Mean Corp Hgb Conc 33.8 g/dL (32-36); Mean Corpuscular Volume 86.2 fL (80-94); Mean Platelet Vol. 8.9 fl (6.2-12.0); NRBC Flagged by Analyzer 0 % (0-5); Platelet Count 193 K/mm3 (150-450); RBC Distribution Width CV 13.8 % (11.6-14.6); RBC Distribution Width SD 43.1 fl (35.1-43.9); Red Blood Count 3.77 M/mm3 (4.6-6.2); White Blood Count 8.3 K/mm3 (4.4-11.0)
[2025-02-27 10:56] LABS: Prothrombin Time (Protime)PT. 27.7 SECONDS (11.7-14.9)
[2025-02-27 11:11] LABS: AST(SGOT) 29 U/L (<=37); Alanine Aminotransfer ALT/SGPT 24 U/L (<=46); Albumin, Serum 3.8 g/dL (3.4-4.8); Alkaline Phosphatase 113 U/L (40-129); Anion Gap 12 (5-15); BUN 15 mg/dL (4-19); BUN/Creat Ratio 18.2 RATIO (10-20); Calcium,Total 8.0 mg/dL (7.6-11.0); Carbon Dioxide 19.7 mmol/L (21.0-32.0); Chloride 89 mmol/L (98-108); Estimated Creatinine Clearance 118.12 ml/min (50-250); Globulin 2.3 g/dL (2.2-4.2); Glucose 100 mg/dL (70-99); Potassium 3.0 mmol/L (3.3-5.1)
[2025-02-27 11:13] LABS: Mucous, Urine 0 SEEN /hpf (<or=2+); Red Blood Cells-Urine 0 SEEN /hpf (0-5); Squamous Epithelial Cells - UA 0 SEEN /hpf (0-5)
[2025-02-27 11:16] LABS: Color, Urine Yellow (Yellow); Glucose, Dipstick Normal (Normal); Ketone-Dipstick Negative (Negative); Leukocyte Esterase-Dipstick Negative /ul (Negative); Nitrite-Dipstick Negative (Negative); Occult Blood-Urine Negative /ul (Negative); Protein-Dipstick 15 mg/dl (Negative); Specific Gravity, Urine 1.010 (1.002-1.030); Urine Bilirubin Dipstick Negative (Negative)
[2025-02-27 11:39] LABS: SITE Not entered; VBG BASE EXCESS -5 mmol/L (-1.0-3.5); VBG PO2 55 mmHg (25-40); VBG SO2 88 % (50-70); VBG TCO2 22 mmol/L (23-33)
[2025-02-27 12:05] LABS: BETA-HYDROXYBUTYRATE 0.1 mmol/L (0.0-0.3)
--- NOTE | 2025-02-27 13:15 | CT_ITS ---
PROCEDURE: ABDOMEN/PELVIS W IV CONT ONLY 02/27/2025 REASON FOR EXAM: PAIN LLQ W/O TENDERNESS TECHNIQUE: ABDOMEN/PELVIS W IV CONT ONLY Coronal and Sagittal reconstruction series were provided. CONTRAST: Isovue 300 VOLUME: 98 mL One or more dose reduction techniques were used (e.g., Automated exposure control, adjustment of the mA and/or kV according to patient size, use of iterative reconstruction technique. RADIATION DOSE SUMMARY: CTDlvol: 36 mGy DLP: 1378 mGycm COMPARISON: March 11, 2024 FINDINGS: Lung bases: Clear Liver: Normal Gallbladder: 21 mm high-density calculus is seen near the gallbladder neck. No gallbladder distention or pericholecystic fluid. No biliary duct dilation. Spleen: Spleen is normal. Hilar splenule is present. Pancreas: Normal Adrenals: Normal Kidneys: No collecting system dilation, calculus or solid mass. Bladder: Normal Reproductive Organs: Unremarkable Bowel: Stomach is normal. Small bowel is not dilated. Formed stool is seen in the ascending colon. Gaseous distention transverse colon with no site of obstruction. Descending colon, sigmoid are decompressed. Appendix: Normal Lymph nodes: None appear enlarged. Marguerite infiltration of the small bowel mesentery. Vasculature: Aorta is atherosclerotic without aneurysm. IVC filter is in place in the midabdomen. Below the IVC filter the caliber of the IVC is flattened and possibly thrombosed. Numerous abdominal wall venous collaterals are seen with the largest towards the groin. Peritoneum / Retroperitoneum: No free air, free fluid or mass. Bones: Mild disc space narrowing marginal endplate spurring vacuum disc phenomenon T11-12, L1/2, L2/3 and L4/5. Mild infiltration of the subcutaneous fat of the anterior abdominal wall. CT/Abdomen/Pelvis W IV Cont ONLY IMPRESSION: 1. Gallstone 2. Gaseous distention of the transverse colon without wall thickening, pneumat osis or site of obstruction. No change. 3. Marguerite infiltration of the small bowel mesentery. No lymphadenopathy. This can be seen with mesenteric adenitis. 4. IVC filter in place. Possible thrombosis of the IVC below the filter with numerous abdominal wall collaterals. Reading Location: [id number]
--- NOTE | 2025-02-27 13:30 | ED.RN ---
Pt found in room with both R wrist and L AC IVs pulled out. Pt requesting to leave. Dr Osuna informed Pt of critical labs and need for admission. Pt decided to stay.
[2025-02-27] MEDS: Potassium Chloride 10mEq/100mL 10 MEQ/100 ML IV.SOLN. 100 MEQ IV BOLUS ×3 (13:42→22:52)
--- NOTE | 2025-02-27 14:26 | PCM.HP.STD ---
HPI - General General Date of Admission: 02/27/25 Date of Service: 02/27/25 Chief Complaint: Abdominal pain, nausea, diarrhea HPI Narrative EDER VILLANUEVA, is a 69-year-old male history of DVT, seizure disorder, hypothyroidism, depression, GERD, lower extremity edema presented [facility] ED 02/27/2025 with left lower quadrant abdominal pain that he woke up with this morning and nausea. Also had several bouts of diarrhea. No fever or sick contacts. Has been drinking a lot of water and then after he urinates will feel like he needs to keep drinking. He is unsure how long this has been going on. In the ED temp 97.3, heart rate 86 and blood pressure 167/76. Respiratory rate 25 and pulse ox 97% on room air. CBC with white blood cell count of 8.3, hemoglobin 11, INR 2.5, sodium of 121, no values since March 2024 when his sodium was 135, potassium of 3. Kidney function normal and liver function within normal limits. UA does not appear infectious. Beta hydroxybutyrate negative and VBG with a pH of 7.38, bicarb of 21 and total CO2 of 22. CT abdomen and pelvis with gaseous distention of transverse colon without wall thickening, possibly mesenteric adenitis as well as IVC filter with possible thrombosis below the filter with numerous abdominal wall collaterals. Hospitalist contacted for admission. Patient evaluated bedside. He reports his diarrhea has been going on for a while however abdominal pain and nausea started this morning, abdominal pain may be slightly better in the ED but still feeling nauseous though no emesis. Denies any fevers at home, has chronic swelling in lower extremities but ROS otherwise negative. of of note patient reported to me that he has been drinking a lot of water but he denied excessive thirst or recent medication changes and said he is trying to drink more water so that he remains full so he does not eat as much. [facility], [facility] Medical History Loss of one eye Wears glasses Cancer Thyroid disease Arthritis Prostate disease Bladder disease Low iron High cholesterol Diarrhea Gastric reflux Non-smoker History of pain when walking Heart murmur Localized swelling of both lower legs Abnormal biliary HIDA scan Anxiety and depression HTN (hypertension) History of DVT of lower extremity Seizure disorder Home Medications Medication Instructions Recorded Last Taken Type lamotrigine 200 mg tablet 200 mg PO BID SEIZURES 03/12/14 03/21/24 History (Lamictal) lacosamide 200 mg tablet 200 mg PO BID SEIZURES 09/17/19 03/10/24 History zonisamide 100 mg capsule 300 mg PO BID SEIZURES 09/17/19 03/20/24 History warfarin 7.5 mg tablet 7.5 mg PO DAILY BLOOD THINNER 09/12/21 03/16/24 History Held on 03/21/24. Instructions: Resume on 04/04/24. fluoxetine 40 mg capsule 40 mg PO DAILY DEPRESSION 03/11/24 03/10/24 History levetiracetam 750 mg tablet 1,500 mg PO BID SEIZURES 03/11/24 03/21/24 History levothyroxine 88 mcg tablet 75 mcg PO DAILY THYROID 03/11/24 03/21/24 History potassium chloride 20 mEq/15 mL 20 meq (15 mL) PO BID #450 mL 03/11/24 Unknown Rx oral liquid cyanocobalamin-liver extract tablet 1 tab PO DAILY 03/19/24 Unknown History ferrous fumarate 55 mg (18 mg 18 mg PO DAILY 03/19/24 Unknown History iron) tablet,extended release furosemide 40 mg tablet 40 mg PO DAILY 03/19/24 Unknown History pantoprazole 40 mg tablet,delayed 40 mg PO DAILY 03/19/24 Unknown History release (Protonix) ibuprofen 600 mg tablet 600 mg PO Q6H PRN fever or pain 03/21/24 Unknown Rx #20 tabs Allergy/AdvReac Type Severity Reaction Status Date / Time No Known Allergies Allergy Verified 02/27/25 09:55 Surgical History Hx of colonoscopy History of vascular access device Hx of vascular surgery Hx of left cataract extraction Social History household members: spouse Smoking Status: Never smoker ROS ROS Narrative General: Denies fever/chills HENT: Denies headache, denies stuffy nose, denies sore throat EYES: Denies changes in vision Resp: Denies cough, denies shortness of breath Cardiac: Denies chest pain GI: Some abdominal pain mostly in left lower quadrant, has had frequent diarrhea recently but usually suffers from constipation, some nausea with no emesis : Denies changes in urination Extremity: Chronic lower extremity swelling MSK: Denies weakness Neuro: Denies any numbness/tingling Heme: Denies any bleeding or bruising Skin: Denies rashes Psychiatric: No complaints voiced Vital Signs Vital Signs Vital Signs: 02/27/25 09:56 02/27/25 11:50 02/27/25 13:00 Temperature 97.3 F L Temperature Source Temporal Pulse Rate 86 71 70 Respiratory Rate 25 H 17 Blood Pressure 167/76 H 142/72 H 154/78 H Blood Pressure Mean 106 95 103 Pulse Ox 97 97 98 Oxygen Delivery Method Room Air Room Air Room Air Weight Weight: 133.2 kg Body Mass Index (BMI) 39.8 Physical Exam Narrative General: Alert, oriented, no apparent distress HEENT: Atraumatic, normocephalic Eyes: Keeps right eye closed, left eye no acute abnormalities appreciated Neck: Supple Respiratory: No significant wheezes or rhonchi, normal respiratory effort Cardiovascular: Regular rate and rhythm GI: Distended, did not seem to be having pain on palpation and no rebound, guarding, rigidity Extremities: 1+ lower extremity edema with chronic changes Musculoskeletal: Moving all extremities Neuro: No overt focal neurological deficits Skin: Chronic lower extremity changes Psych: Cooperative Results Lab / Micro Data 02/27/25 10:15 02/27/25 10:15 Labs: Laboratory Results - last 24 hr 02/27/25 10:15: WBC 8.3, RBC 3.77 L, Hgb 11.0 L, Hct 32.5 L, MCV 86.2, MCH 29.2, MCHC 33.8, RDW Std Deviation 43.1, RDW Coeff of Vaishnavi 13.8, Plt Count 193, MPV 8.9, Immature Gran % (Auto) 0.600, Neut % (Auto) 71.4 H, Lymph % (Auto) 16.7 L, [place] % (Auto) 9.2, Eos % (Auto) 1.9, Baso % (Auto) 0.2, Absolute Neuts (auto) 5.9, Absolute Lymphs (auto) 1.39, Nucleated RBC % 0, PT 27.7 H, INR 2.5, Sodium 121 L, Potassium 3.0 L, Chloride 89 L, Carbon Dioxide 19.7 L, Anion Gap 12, BUN 15, Creatinine 0.81, Estim Creat Clear Calc 118.12, Est GFR (MDRD) Non-Af 94, BUN/Creatinine Ratio 18.2, Glucose 100 H, Lactic Acid 1.4, Calcium 8.0, Total Bilirubin 0.38, AST 29, ALT 24, Alkaline Phosphatase 113, Total Protein 6.1, Albumin 3.8, Globulin 2.3, Albumin/Globulin Ratio 1.6, b-Hydroxybutyric mmol/L 0.1 02/27/25 11:09: Urine Color Yellow, Urine Clarity Clear, Urine pH 7.0, Ur Specific [place] 1.010, Urine Protein 15 H, Urine Glucose (UA) Normal, Urine Ketones Negative, Urine Occult Blood Negative, Urine Nitrite Negative, Urine Bilirubin Negative, Urine Urobilinogen Normal, Ur Leukocyte Esterase Negative, Urine RBC 0 SEEN, Urine WBC 0 SEEN, Ur Squamous Epith Cells 0 SEEN, Urine Bacteria 0 SEEN, Urine Mucus 0 SEEN ABG Data ABG results: ABG 02/27/25 11:34 Specimen Type SAIGE Sample Site Not entered VBG pH 7.38 VBG pO2 55 H VBG HCO3 21 L VBG Total CO2 22 L VBG O2 Sat (Calc) 88 H VBG Base Excess -5 L POC Mix VBG pCO2 Pt Tmp 34.8 L O2 Delivery Device Not entered Imaging Radiology Impression Abdomen/Pelvis CT 02/27/25 13:15 IMPRESSION: 1. Gallstone 2. Gaseous distention of the transverse colon without wall thickening, pneumatosis or site of obstruction. No change. 3. Marguerite infiltration of the small bowel mesentery. No lymphadenopathy. This can be seen with mesenteric adenitis. 4. IVC filter in place. Possible thrombosis of the IVC below the filter with numerous abdominal wall collaterals. Reading Location: [id number] Assessment & Plan Assessment/Plan (1) Hyponatremia: (2) Abdominal pain: (3) Hypokalemia: PLAN: Plan # Abdominal pain/nausea/diarrhea -CT abdomen and pelvis with gaseous distention of transverse colon without wall thickening, possibly mesenteric adenitis as well as IVC filter with possible thrombosis below the filter with numerous abdominal wall collaterals -Patient appears to have large right-sided stool burden but not on the left, unclear etiology, also queried mesenteric adenitis -CT scan from 2023 also showed the distended colon, unclear etiology -Will stool studies -IV fluids -Antiemetics and supportive care -Full liquid diet, advance as tolerated -Check TSH - Will consult GI given the distention with right sided stool burden but not on left the chronic diarrhea and possible mesenteric adenitis # Hyponatremia of uncertain chronicity -Sodium of 121, no values for the past 1 year so unclear how long this has been going on -Patient does note increased thirst and drinking in excess amount of water -It is also possible that this could be related to one of his antiepileptics or antidepressants -IV fluids as above -Trend BMPs -Serum osmole's -Urine studies -Will hold fluoxetine at this time #Hypokalemia -Replace -Repeat in the AM #Seizure disorder -Has Lamictal, lacosamide, zonisamide, and Keppra listed on home med list, patient unsure which she is taking, awaiting med rec update -Continue home regimen # History of DVT with IVC filter -Appears to be on Coumadin, therapeutic with an INR of 2.5 -Will continue Coumadin once med rec up-to-date -IVC filter with possible thrombosis below the filter with numerous abdominal wall collaterals #Depression/anxiety -Med rec not updated it appears previously was on Prozac, holding home antidepressant given patient's hyponatremia pending further workup, may need to switch agents prior to discharge but this will depend on further workup and clinical course - Will need to verify with patient's home meds are for final recs #Hypothyroidism -Continue Synthroid #GERD -Continue PPI #DVT ppx: Patient therapeutic on Coumadin, not indicated Lisa Mike MD Charges/Coding Visit Charges Inpatient E&M: 83083 Init Hosp L2
[2025-02-27 17:19] LABS: Osmolality, Serum 255 mOsm/KG (280-301)
[2025-02-27 17:25] LABS: Anion Gap 11 (5-15); BUN 11 mg/dL (4-19); BUN/Creat Ratio 14.1 RATIO (10-20); Calcium,Total 8.1 mg/dL (7.6-11.0); Carbon Dioxide 20.2 mmol/L (21.0-32.0); Chloride 91 mmol/L (98-108); Estimated Creatinine Clearance 122.07 ml/min (50-250); Glucose 134 mg/dL (70-99); Potassium 3.1 mmol/L (3.3-5.1)
[2025-02-27 17:44] LABS: Osmolality, Urine 303 mOsm/KG
[2025-02-27 17:54] LABS: Urea Nitrogen, Urine 285 mg/dL (NO RANGE EST.)
--- NOTE | 2025-02-27 18:48 | CON.PCM.GI_ITS ---
HPI Consult Data Date of Consult: 02/27/25 HPI Narrative Reason for Consultation: Abdominal pain and colonic distention HPI Narrative: EDER VILLANUEVA, is a 69 y/o presented to the ED with worsening abdominal pain. He has a past medical history of obesity, WILBERTO, history of PE on Coumadin status post IVC filter, seizure disorder, anxiety and depression. He also has a history of large B-cell lymphoma and malignant melanoma. He complains of history of lower cramping abdominal pain rating the pain from 4- 6 out of 10 in severity but waxing and waning with at least 6-8 bouts of diarrhea throughout the day with associated occasional nausea and emesis able to tolerate some fluids but difficulty with food, notes abdominal discomfort worse with attempted oral intake with associated lightheadedness and dizziness prompting CC UC evaluation with referral to the ED. CBC with WBC 7.3, hemoglobin 11, platelet 204 without market left shift, CMP with a sodium of 122, glucose 117 otherwise normal, lipase 328, urinalysis with specific gravity 1.015, 10 occult blood, negative nitrite, negative leukocyte esterase, no urine CT abdomen pelvis with noted distention of the right colon and transverse colon to splenic fracture primarily with air and some fecal material, suspicious for colonic ileus, cholelithiasis evident as well as collapse of the IVC below the level of the IVC filter. No pneumatosis or site of obstruction was seen. Also noted was Marguerite infiltration of the small bowel mesentery. No lymphadenopathy. This can be seen with mesenteric adenitis. CT scan back in 2013 of abdomen pelvis displayed- There is borderline retroperitoneal lymphadenopathy with enlarged nodes no greater than 10mm in the short axis diameter. 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 He had a similar presentation back in 2019. He was diagnosed with viral gastroenteritis at that time. FORMERLY [facility], [facility] Medical History Seizures Loss of one eye Wears glasses Cancer Thyroid disease Arthritis Prostate disease Bladder disease Low iron High cholesterol Diarrhea Gastric reflux Non-smoker History of pain when walking Heart murmur Localized swelling of both lower legs Abnormal biliary HIDA scan Anxiety and depression HTN (hypertension) History of DVT of lower extremity Seizure disorder Home Medications Medication Instructions Recorded Last Taken Type lamotrigine 200 mg tablet 200 mg PO BID SEIZURES 03/1203/21/24 History (Lamictal) lacosamide 200 mg tablet 200 mg PO BID SEIZURES 09/1703/10/24 History zonisamide 100 mg capsule 100 mg PO BID SEIZURES 09/1703/20/24 History warfarin 7.5 mg tablet 7.5 mg PO DAILY BLOOD THINNE R 09/12/21 03/16/24 History levetiracetam 750 mg tablet 1,500 mg PO BID SEIZURES 0 03/11/24 03/21/24 History levothyroxine 88 mcg tablet 88 mcg PO DAILY THYROID 03/21/24 History furosemide 40 mg tablet 20 mg PO DAILY water pill Unknown History ibuprofen 600 mg tablet 600 mg PO Q6H PRN fever or p ain 03/21/24 Unknown Rx #20 tabs potassium chloride 20 mEq/15 mL 10 meq PO DAILY supple ment 02/27/25 Unknown History oral liquid tamsulosin 0.4 mg capsule 0.4 mg PO QHS prostate 02/27 Unknown History Allergy/AdvReac Type Severity Reaction Status Date / Time No Known Allergies Allergy Verified 02/27/25 09:55 Surgical History Hx of colonoscopy History of vascular access device Hx of vascular surgery Hx of left cataract extraction Social History household members: spouse Smoking Status: Never smoker ROS Constitutional Constitutional: Denies fatigue, fever(s), poor appetite, weight gain or weight loss Gastrointestinal Gastrointestinal: Denies belching, bloating, change in bowel habits, change in stool character, chewing difficulty, coffee ground emesis, constipation, cramping, diarrhea, dyspepsia, dysphagia, early satiety, excessive flatus, fecal incontinence, heartburn, hematemesis, hematochezia, hemorrhoids, loose stools, melena, nausea, odynophagia, rectal bleeding, tenesmus, vomiting or weight changes Physical Exam Narrative General: Alert, oriented, no apparent distress HEENT: Atraumatic, normocephalic Eyes: Keeps right eye closed, left eye no acute abnormalities appreciated Neck: Supple Respiratory: No significant wheezes or rhonchi, normal respiratory effort Cardiovascular: Regular rate and rhythm GI: Distended, did not seem to be having pain on palpation and no rebound, guarding, rigidity Extremities: 1+ lower extremity edema with chronic changes Musculoskeletal: Moving all extremities Neuro: No overt focal neurological deficits Skin: Chronic lower extremity changes Psych: Cooperative Lab / Micro Data 02/27/25 10:15 02/27/25 16:33 Labs: Laboratory Results - last 24 hr 02/27/25 10:15: WBC 8.3, RBC 3.77 L, Hgb 11.0 L, Hct 32.5 L, MCV 86.2, MCH 29.2, MCHC 33.8, RDW Std Deviation 43.1, RDW Coeff of Vaishnavi 13.8, Plt Count 193, MPV 8.9, Immature Gran % (Auto) 0.600, Neut % (Auto) 71.4 H, Lymph % (Auto) 16.7 L, [place] % (Auto) 9.2, Eos % (Auto) 1.9, Baso % (Auto) 0.2, Absolute Neuts (auto) 5.9, Absolute Lymphs (auto) 1.39, Nucleated RBC % 0, PT 27.7 H, INR 2.5, Sodium 121 L, Potassium 3.0 L, Chloride 89 L, Carbon Dioxide 19.7 L, Anion Gap 12, BUN 15, Creatinine 0.81, Estim Creat Clear Calc 118.12, Est GFR (MDRD) Non-Af 94, BUN/Creatinine Ratio 18.2, Glucose 100 H, Lactic Acid 1.4, Calcium 8.0, Total Bilirubin 0.38, AST 29, ALT 24, Alkaline Phosphatase 113, Total Protein 6.1, Albumin 3.8, Globulin 2.3, Albumin/Globulin Ratio 1.6, b-Hydroxybutyric mmol/L 0.1 02/27/25 11:09: Urine Color Yellow, Urine Clarity Clear, Urine pH 7.0, Ur Specific [place] 1.010, Urine Protein 15 H, Urine Glucose (UA) Normal, Urine Ketones Negative, Urine Occult Blood Negative, Urine Nitrite Negative, Urine Bilirubin Negative, Urine Urobilinogen Normal, Ur Leukocyte Esterase Negative, Urine RBC 0 SEEN, Urine WBC 0 SEEN, Ur Squamous Epith Cells 0 SEEN, Urine Bacteria 0 SEEN, Urine Mucus 0 SEEN 02/27/25 16:33: Sodium 122 L, Potassium 3.1 L, Chloride 91 L, Carbon Dioxide 20.2 L, Anion Gap 11, BUN 11, Creatinine 0.75, Estim Creat Clear Calc 122.07, Est GFR (MDRD) Non-Af 96, BUN/Creatinine Ratio 14.1, Glucose 134 H, Serum Osmolality 255 L, Calcium 8.1 02/27/25 17:01: Urine Osmolality 303, Ur Random Sodium 51, Urine Potassium 9.3, Urine Chloride 39, Urine Urea Nitrogen 285 ABG Data ABG results: ABG 02/27/25 11:34 Specimen Type SAIGE Sample Site Not entered VBG pH 7.38 VBG pO2 55 H VBG HCO3 21 L VBG Total CO2 22 L VBG O2 Sat (Calc) 88 H VBG Base Excess -5 L POC Mix VBG pCO2 Pt Tmp 34.8 L O2 Delivery Device Not entered Imaging Radiology Impression Abdomen/Pelvis CT 02/27/25 13:15 IMPRESSION: 1. Gallstone 2. Gaseous distention of the transverse colon without wall thickening, pneumatosis or site of obstruction. No change. 3. Marguerite infiltration of the small bowel mesentery. No lymphadenopathy. This can be seen with mesenteric adenitis. 4. IVC filter in place. Possible thrombosis of the IVC below the filter with numerous abdominal wall collaterals. Reading Location: [id number] Assessment & Plan Assessment/Plan (1) Abdominal pain, acute, left lower quadrant: (2) Colon distention: (3) Abdominal pain: (4) Hyponatremia: PLAN: 69-year-old male presenting with a history of recurrent episodes of abdominal pain, distension, and changes in bowel habits. These episodes have been accompanied by hyponatremia. He reports the current episode started 3 days ago with generalized abdominal pain, bloating, and decreased appetite. He denies fever or vomiting. He states he has had similar episodes in the past, often resolving with supportive care * Abdomen: Distended, generalized tenderness on palpation, no rebound or guarding. Bowel sounds are diminished. No masses appreciated. * Labs: * Serum Sodium: 122 * Other electrolytes: Within normal limits * CBC: Hemoglobin 11 white count within normal limits * CRP/ESR: [Pending * Imaging: CT scan displays colonic dilation without mechanical obstruction but does show mesenteric lymphadenopathy Assessment 69-year-old male with recurrent colonic dilation, hyponatremia, and abdominal pain concerning for mesenteric adenitis. The patient's age and recurrence of symptoms suggest a potentially underlying systemic condition or inflammatory process. Differential Diagnoses: * Acute Colonic Pseudo-obstruction (Sidney Syndrome): A leading possibility given his presentation, especially in the context of elderly patients with comorbidities or recent illness. * Chronic Intestinal Pseudo-obstruction: This is a possibility due to the recurrent nature of his symptoms. * Inflammatory Bowel Disease (IBD): Although mesenteric adenitis can occur secondary to IBD, it is more commonly seen in pediatric patients and would typically be diagnosed with more specific IBD symptoms like chronic diarrhea and rectal bleeding. * Lymphoma: This serious condition can also cause mesenteric lymph node enlargement and intestinal obstruction, and needs to be ruled out. * Hypothyroidism: Can lead to chronic constipation and colonic dilation. Regarding Hyponatremia: * It is crucial to determine the chronicity of hyponatremia. If the duration is unknown, it should be treated as chronic. * The hyponatremia could be a contributing factor to the colonic dilation as electrolyte imbalances can affect gut motility. * Volume status assessment (hypovolemic, euvolemic, or hypervolemic) . Consider nephrology consultation. Plan * Bowel rest and nasogastric decompression * Intravenous fluids: 0.9% saline infusion * Careful monitoring of sodium levels due to the risks associated with over- rapid correction of hyponatremia. * Medication Review: Discontinue any medications that may contribute to hyponatremia, particularly diuretics. * Serial imaging: Abdominal X-rays and CT scan as noted in the objective, plus ultrasound if needed. * Consider endoscopy or surgery if mechanical obstruction is suspected or conservative management fails. * He would likely need to undergo colonoscopy with biopsies * Consider Infectious Disease to help to determine the cause of mesenteric adenitis if we do not suspect this is from lymphoma. Charges/Coding Visit Charges Inpatient E&M: 84854 Init Hosp L3
[2025-02-27 20:54] LABS: Anion Gap 10 (5-15); BUN 10 mg/dL (4-19); BUN/Creat Ratio 12.7 RATIO (10-20); Calcium,Total 8.3 mg/dL (7.6-11.0); Carbon Dioxide 20.8 mmol/L (21.0-32.0); Chloride 94 mmol/L (98-108); Estimated Creatinine Clearance 122.07 ml/min (50-250); Glucose 120 mg/dL (70-99); Potassium 3.2 mmol/L (3.3-5.1)
[2025-02-27] MEDS: ZONISAMIDE 100 MG CAPSULE 200 MG PO (23:04)
[2025-02-28 00:58] LABS: Anion Gap 10 (5-15); BUN 10 mg/dL (4-19); BUN/Creat Ratio 14.3 RATIO (10-20); Calcium,Total 8.5 mg/dL (7.6-11.0); Carbon Dioxide 20.5 mmol/L (21.0-32.0); Chloride 97 mmol/L (98-108); Estimated Creatinine Clearance 122.07 ml/min (50-250); Glucose 111 mg/dL (70-99); Potassium 3.2 mmol/L (3.3-5.1)
[2025-02-28 03:30] VITALS: BP 128/64; PULSE 75; RESP 15; TEMP 36.4; O2SAT 96
[2025-02-28] MEDS: 0.9% Normal Saline (1000mL) 1,000 ML 100 ML IV (03:35)
[2025-02-28 05:37] VITALS: BMI 40.6
[2025-02-28 06:24] LABS: Hematocrit 32.3 % (40-54); Hemoglobin 11.0 g/dL (13.0-16.5); Immature Granulocytes Count 0.030 X10^3/uL (0.0-0.0); Mean Corp Hgb Conc 34.1 g/dL (32-36); Mean Corpuscular Volume 86.8 fL (80-94); Mean Platelet Vol. 9.2 fl (6.2-12.0); NRBC Flagged by Analyzer 0 % (0-5); Platelet Count 188 K/mm3 (150-450); RBC Distribution Width CV 13.9 % (11.6-14.6); RBC Distribution Width SD 43.3 fl (35.1-43.9); Red Blood Count 3.72 M/mm3 (4.6-6.2); White Blood Count 6.3 K/mm3 (4.4-11.0)
[2025-02-28 06:32] LABS: Prothrombin Time (Protime)PT. 27.1 SECONDS (11.7-14.9)
[2025-02-28 06:48] LABS: Anion Gap 10 (5-15); BUN 9 mg/dL (4-19); BUN/Creat Ratio 12.9 RATIO (10-20); Calcium,Total 8.4 mg/dL (7.6-11.0); Carbon Dioxide 20.6 mmol/L (21.0-32.0); Chloride 102 mmol/L (98-108); Estimated Creatinine Clearance 120.80 ml/min (50-250); Glucose 103 mg/dL (70-99); Potassium 3.3 mmol/L (3.3-5.1)
[2025-02-28 09:25] VITALS: BP 117/64; PULSE 80; RESP 18; TEMP 36.9; O2SAT 96
[2025-02-28] MEDS: 0.45% Normal Saline 1,000 ML 75 ML IV (10:01)
[2025-02-28] MEDS: Potassium Chloride Oral Soln 20 MEQ/15 ML UDC 10 MEQ PO (10:02)
--- NOTE | 2025-02-28 10:30 | CASEMGMT ---
DARREN DANIEL ASSESSMENT RN MARÍA to room to meet with patient for initial transition planning/care coordination assessment. DARREN DANIEL introduced self and role at [facility]. Pt voices understanding and consents to assessment at this time. Pt resting in bed in no distress at this time. Pt is A/O at this time and answers all questions appropriately. Care providers, pharmacy, and demographics verified/updated at this time. PCP: Dr Oneill Specialists: Dr Holguin, neurologist @ [facility] Preferred Pharmacy: [facility] Insurance: [employer] [facility] Prescription Benefit: yes LNOK: , Atiya Mohamud Living Arrangements: Lives w/ in one-story home w/no steps to enter. Pt states he is independent w/ADL's. and pt share home mgnt tasks. Transportation: Pt does not drive. usually drives, but she just had surgery and will not be able to drive for ~ 3 more wks. Their neighbor has taken them to the grocery store and may be available for other transportation needs as well, but he is not sure. He states he has had to reschedule PCP appt twice d/t not having transportation. Neighbor may be able to take him home if he is discharged over the weekend, but he is not positive on that. If pt is not discharged over the weekend, he would like to utilize [facility] van to take him home @ dc, if available. Pt would like transportation resources. Neli STRICKLAND, aware. DME: States has the following DME: Pt has a rollator @ home and uses this @ baseline. Pt has no other DME and declines further DME needs at this time. HHC/SNF: No hx of either. Pt wishes to return home and states has no concerns with going home at time of discharge. He declines wanting HHC or OP therapy @ dc. Made aware to f/u with PCP if he changes his mind once returning home. Pt voices no further concerns/needs at this time. PLAN: Home w/spouse. SW to provide transportation resources. Pt would like to utililze [facility] van @ dc, if available. Neighbor may be able to take him home if dc's over the weekend. Roni STEWART RN, CM
[2025-02-28] MEDS: ZONISAMIDE 100 MG CAPSULE 200 MG PO ×2 (12:10→17:07)
--- NOTE | 2025-02-28 14:07 | PN_ITS ---
Subjective Subjective Patient seen and examined. He states he has not had any more diarrhea since yesterday and also denies abdominal pain. However he has not passed any gas and his abdomen is quite distended. He states is the same as when he came in yesterday. Review of systems otherwise negative. I saw the patient with his nurse by his bedside. Objective Data Objective Data Vital Signs: Vital Signs Temp Pulse Resp BP Pulse Ox O2 Del Method 98.4 F 80 18 117/64 96 Room Air 02/28/25 09:25 02/28/25 09:25 02/28/25 09:25 02/28/25 09:25 02/28/25 09:02/28/25 09:50 Oxygen Delivery Method Room Air Weight: 299 lb 2.676 oz Body Mass Index (BMI) 40.6 Intake & Output: Intake and Output for Last 24 Hours 02/26/25 02/27/25 02/28/25 23:59 23:59 23:59 Intake Total 878.33 / 878.33 1805.83 / 1805.83 Output Total 1000 / 1000 Balance 878.33 / -121.67 805.83 / 805.83 Lab / Micro Data 02/28/25 05:35 02/28/25 05:35 Labs: Laboratory Results - last 24 hr 02/27/25 16:33: Sodium 122 L, Potassium 3.1 L, Chloride 91 L, Carbon Dioxide 20.2 L, Anion Gap 11, BUN 11, Creatinine 0.75, Estim Creat Clear Calc 122.07, Est GFR (MDRD) Non-Af 96, BUN/Creatinine Ratio 14.1, Glucose 134 H, Serum Osmolality 255 L, Calcium 8.1 02/27/25 17:01: Urine Osmolality 303, Ur Random Sodium 51, Urine Potassium 9.3, Urine Chloride 39, Urine Urea Nitrogen 285 02/27/25 20:08: Sodium 125 L, Potassium 3.2 L, Chloride 94 L, Carbon Dioxide 20.8 L, Anion Gap 10, BUN 10, Creatinine 0.76, Estim Creat Clear Calc 122.07, Est GFR (MDRD) Non-Af 96, BUN/Creatinine Ratio 12.7, Glucose 120 H, Calcium 8.3 02/28/25 00:10: Sodium 128 L, Potassium 3.2 L, Chloride 97 L, Carbon Dioxide 20.5 L, Anion Gap 10, BUN 10, Creatinine 0.70, Estim Creat Clear Calc 122.07, Est GFR (MDRD) Non-Af 99, BUN/Creatinine Ratio 14.3, Glucose 111 H, Calcium 8.5 02/28/25 05:35: WBC 6.3, RBC 3.72 L, Hgb 11.0 L, Hct 32.3 L, MCV 86.8, MCH 29.6, MCHC 34.1, RDW Std Deviation 43.3, RDW Coeff of Vaishnavi 13.9, Plt Count 188, MPV 9.2, Immature Gran % (Auto) 0.500, Neut % (Auto) 72.4 H, Lymph % (Auto) 16.5 L, [place] % (Auto) 7.3, Eos % (Auto) 3.0, Baso % (Auto) 0.3, Absolute Neuts (auto) 4.5, Absolute Lymphs (auto) 1.03, Nucleated RBC % 0, PT 27.1 H, INR 2.5, Sodium 132 L, Potassium 3.3, Chloride 102, Carbon Dioxide 20.6 L, Anion Gap 10, BUN 9, Creatinine 0.72, Estim Creat Clear Calc 120.80, Est GFR (MDRD) Non-Af 98, BUN/Creatinine Ratio 12.9, Glucose 103 H, Calcium 8.4, TSH 1.500 Micro: Microbiology 02/27/25 20:20 Stool Enteric Bacteriology - Final 02/27/25 20:20 Stool Clostridioides difficile (PCR) - Final Radiography Diagnostic Testing: Radiology Impression Abdomen/Pelvis CT 02/27/25 13:15 IMPRESSION: 1. Gallstone 2. Gaseous distention of the transverse colon without wall thickening, pneumatosis or site of obstruction. No change. 3. Marguerite infiltration of the small bowel mesentery. No lymphadenopathy. This can be seen with mesenteric adenitis. 4. IVC filter in place. Possible thrombosis of the IVC below the filter with numerous abdominal wall collaterals. Reading Location: [facility] Physical Exam Const alert, oriented x3 and no apparent distress Constitutional Narrative: Class III obesity HEENT normocephalic, head/scalp atraumatic, moist oral mucous membranes and oropharynx normal Eyes EOMs intact bilaterally Neck supple and no JVD Lymph Lymphatic: no lymphedema noted Resp normal respiratory effort, normal air movement and clear to auscultation bilaterally Cardio regular rate, regular rhythm, S1 normal heart sound, S2 normal heart sound and no murmurs GI GI Narrative: abdomen moderately ditended, tympanitic to percussion, no guarding or rebound tenderness. Extremity normal capillary refill and no clubbing, cyanosis or edema General Extremity: no tenderness to palpation of joints or extremities Skin General Skin Exam: no breakdown Neuro CN's II-XII intact bilaterally and no focal motor deficits Motor Exam: general weakness Psych thought process normal, cooperative and affect normal Appearance: appropriate Assessment & Plan Assessment/Plan (1) Abdominal pain, acute, left lower quadrant: (2) Colon distention: PLAN: Plan #Abdominal distention in the setting of abdominal pain, nausea and diarrhea * Nausea and diarrhea have resolved. However he still has significantly distended abdomen. * CT of the abdomen and pelvis with gaseous distention of transverse colon without wall thickening and possible mesenteric adenitis as well as IVC filter with possible thrombosis below the filter with numerous abdominal wall collaterals. There was also a large right-sided stool burden * CT of the abdomen from 2023 also showed the distended colon. * GI on board and there is concern for COVID syndrome. Patient also liquid diet but we will hold in light of the abdominal distention. Continue gentle hydration with IV fluids. * Consult general surgery. * #Hyponatremia: sodium was 121 but is now 132. Will monitor. #Hypokalemia: Resolved #History of seizure disorder: On lacosamide and zonisamide as well as Lamictal and Keppra. 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 On Coumadin. INR was therapeutic. CT scan showed IVC filter with possible thrombosis below the filter with numerous abdominal wall collaterals indicating that this likely chronic. #Hypothyroidism: On Synthroid #GERD: On PPI #DVT prophylaxis: On Coumadin and INR therapeutic. Charges/Coding Visit Charges Inpatient E&M: 59752 [facility] [place] Hosp L3
[2025-02-28 14:35] VITALS: BP 117/92; PULSE 81; RESP 16; TEMP 36.8; O2SAT 98
--- NOTE | 2025-02-28 17:45 | RAD_ITS ---
EXAM: Small-bowel series CLINICAL HISTORY: Abdominal distention TECHNIQUE: Multiple abdominal radiographs performed after administering GI contrast FINDINGS: Recent CT demonstrates dilatation of the transverse colon. There is transit of oral contrast into the colon by 1 hour indicating that there is no small bowel obstruction. Films were obtained at 3 hours which demonstrate contrast in the rectosigmoid region. As such, contrast must be traversing the distended portion of the transverse colon. An IVC filter is in place RAD/Small Bowel Series Only IMPRESSION: No evidence of large bowel or small bowel obstruction Reading Location: [facility]
--- NOTE | 2025-02-28 19:11 | EX.PCM.CON.S ---
Assessment & Plan Assessment/Plan (1) Abdominal distension: (2) Colon distention: (3) Hyponatremia: PLAN: Plan SBFT shows contrast in colon in <1 hr and at rectum <3 hrs- no evidence of obstruction. Pt c/o diarrhea -chronic but states he has had stool studies and colonoscopy recently per pt at [facility] and it was all "normal". Currently denies any abd pain. No plans for any general surgery intervention. HPI Consult Data Date of Consult: 03/01/25 HPI Narrative Reason for Consultation: Possible bowel obstruction/abdominal distention HPI Narrative: EDER VILLANUEVA, is a 69 M who presents to the ER initially due to abdominal pain which has resolved on its own. Patient states he has been having diarrhea for at least 3 to 4 months patient unable to characterize any further a timeframe. Patient does state that recently he has had stool studies as well as colonoscopy done at [facility]–I do not have these results patient is unable to actually state a more exact date. Patient is unable to say if his abdomen is any larger than usual. Patient does state that he has been drinking water to help fill him up, states that he would have 6 glasses to also help him eat less. Patient's sodium on admission was 12 21 up to 125 at time of consult. Currently patient denies any abdominal pain nausea or vomiting. Patient was also seen by GI yesterday that he may possibly have Dickinson says he does have gaseous distention of his transverse colon this been present on previous CTs as well upon my review of past CTs. [facility] Medical History Seizures Loss of one eye Wears glasses Cancer Thyroid disease Arthritis Prostate disease Bladder disease Low iron High cholesterol Diarrhea Gastric reflux Non-smoker History of pain when walking Heart murmur Localized swelling of both lower legs Abnormal biliary HIDA scan Anxiety and depression HTN (hypertension) History of DVT of lower extremity Seizure disorder Home Medications Medication Instructions Recorded Last Taken Type lamotrigine 200 mg tablet 200 mg PO BID SEIZURES 03/12/14 03/21/24 History (Lamictal) lacosamide 200 mg tablet 200 mg PO BID SEIZURES 09/17/19 03/10/24 History zonisamide 100 mg capsule 100 mg PO BID SEIZURES 09/17/19 03/20/24 History warfarin 7.5 mg tablet 7.5 mg PO DAILY BLOOD THINNER 09/12/21 03/16/24 History levetiracetam 750 mg tablet 1,500 mg PO BID SEIZURES 03/11/24 03/21/24 History levothyroxine 88 mcg tablet 88 mcg PO DAILY THYROID 03/11/24 03/21/24 History furosemide 40 mg tablet 20 mg PO DAILY water pill 03/19/24 Unknown History ibuprofen 600 mg tablet 600 mg PO Q6H PRN fever or pain 03/21/24 Unknown Rx #20 tabs potassium chloride 20 mEq/15 mL 10 meq PO DAILY supplement 02/27/25 Unknown History oral liquid tamsulosin 0.4 mg capsule 0.4 mg PO QHS prostate 02/27/25 Unknown History Allergy/AdvReac Type Severity Reaction Status Date / Time No Known Allergies Allergy Verified 02/27/25 09:55 Surgical History Hx of colonoscopy History of vascular access device Hx of vascular surgery Hx of left cataract extraction Social History household members: spouse Smoking Status: Never smoker ROS Constitutional Constitutional: Denies anorexia or fever(s) ENT HEENT: Denies dysphagia Cardiovascular Cardiovascular: Denies chest pain Respiratory/Chest Respiratory/Chest: Denies cough Gastrointestinal Gastrointestinal: Reports abdominal pain and diarrhea; Denies nausea or vomiting Genitourinary Genitourinary: Denies dysuria Musculoskeletal Musculoskeletal: Denies joint swelling Integumentary Integumentary: Denies jaundice Neurologic Neurologic: Reports weakness Psychiatric Psychiatric: Denies anxiety Endocrine Endocrinology: Denies palpitations Hematologic/Lymphatic Hematologic/Lymphatic: Reports easy bruising Physical Exam Const alert, oriented x3 and no apparent distress HEENT normocephalic Resp normal respiratory effort Cardio regular rate GI soft to palpation and non-tender Inspection: abdominal distention Palpation: Negative for guarding Extremity no clubbing, cyanosis or edema Skin no rashes or lesions noted Neuro CN's II-XII intact bilaterally Psych mental status grossly normal Lab / Micro Data 03/01/25 05:08 03/01/25 05:08 Labs: Laboratory Results - last 24 hr 02/27/25 20:08: Sodium 125 L, Potassium 3.2 L, Chloride 94 L, Carbon Dioxide 20.8 L, Anion Gap 10, BUN 10, Creatinine 0.76, Estim Creat Clear Calc 122.07, Est GFR (MDRD) Non-Af 96, BUN/Creatinine Ratio 12.7, Glucose 120 H, Calcium 8.3 02/28/25 00:10: Sodium 128 L, Potassium 3.2 L, Chloride 97 L, Carbon Dioxide 20.5 L, Anion Gap 10, BUN 10, Creatinine 0.70, Estim Creat Clear Calc 122.07, Est GFR (MDRD) Non-Af 99, BUN/Creatinine Ratio 14.3, Glucose 111 H, Calcium 8.5 02/28/25 05:35: WBC 6.3, RBC 3.72 L, Hgb 11.0 L, Hct 32.3 L, MCV 86.8, MCH 29.6, MCHC 34.1, RDW Std Deviation 43.3, RDW Coeff of Vaishnavi 13.9, Plt Count 188, MPV 9.2, Immature Gran % (Auto) 0.500, Neut % (Auto) 72.4 H, Lymph % (Auto) 16.5 L, [place] % (Auto) 7.3, Eos % (Auto) 3.0, Baso % (Auto) 0.3, Absolute Neuts (auto) 4.5, Absolute Lymphs (auto) 1.03, Nucleated RBC % 0, PT 27.1 H, INR 2.5, Sodium 132 L, Potassium 3.3, Chloride 102, Carbon Dioxide 20.6 L, Anion Gap 10, BUN 9, Creatinine 0.72, Estim Creat Clear Calc 120.80, Est GFR (MDRD) Non-Af 98, BUN/Creatinine Ratio 12.9, Glucose 103 H, Calcium 8.4, TSH 1.500 Micro: Microbiology 02/27/25 20:20 Stool Enteric Bacteriology - Final 02/27/25 20:20 Stool Clostridioides difficile (PCR) - Final Charges/Coding Visit Charges Inpatient E&M: 37553 Init Hosp L3
--- NOTE | 2025-02-28 20:55 | NURSING ---
Per the request of Dr. Kim, this RN attempted to obtain records from [facility]. Spoke with the gate mortiser operator who gave the phone number for their medical records department ([phone]). This RN called the medical records department; which was closed. Recording states hours are Mon-Fri [phone]. Called hospital gate mortiser operator back; obtained a different number for a medical records after hours pager ([phone]). This number went straight to a fax tone. Called [facility] gate mortiser operator back who states records will have to be obtained on Sunday. Placing order for "obtain medical records".
[2025-02-28 21:20] VITALS: BP 129/65; PULSE 76; RESP 16; TEMP 36.9; O2SAT 98
[2025-02-28] MEDS: 0.9% Saline Lock 10 ML Syringe IV (21:23)
[2025-03-01] MEDS: 0.45% Normal Saline 1,000 ML 75 ML IV (02:23)
[2025-03-01 03:32] VITALS: BP 136/71; PULSE 81; RESP 16; TEMP 36.9; O2SAT 95; BMI 39.3
[2025-03-01 05:36] LABS: Hematocrit 34.2 % (40-54); Hemoglobin 11.2 g/dL (13.0-16.5); Immature Granulocytes Count 0.010 X10^3/uL (0.0-0.0); Mean Corp Hgb Conc 32.7 g/dL (32-36); Mean Corpuscular Volume 89.3 fL (80-94); Mean Platelet Vol. 9.2 fl (6.2-12.0); NRBC Flagged by Analyzer 0 % (0-5); Platelet Count 188 K/mm3 (150-450); RBC Distribution Width CV 14.6 % (11.6-14.6); RBC Distribution Width SD 47.7 fl (35.1-43.9); Red Blood Count 3.83 M/mm3 (4.6-6.2); White Blood Count 5.2 K/mm3 (4.4-11.0)
[2025-03-01 06:01] LABS: Prothrombin Time (Protime)PT. 30.0 SECONDS (11.7-14.9)
[2025-03-01 06:11] LABS: Anion Gap 12 (5-15); BUN 8 mg/dL (4-19); BUN/Creat Ratio 9.4 RATIO (10-20); Calcium,Total 8.6 mg/dL (7.6-11.0); Carbon Dioxide 19.8 mmol/L (21.0-32.0); Chloride 107 mmol/L (98-108); Estimated Creatinine Clearance 111.80 ml/min (50-250); Glucose 94 mg/dL (70-99); Potassium 3.1 mmol/L (3.3-5.1)
[2025-03-01 08:58] VITALS: BP 127/56; PULSE 81; RESP 16; TEMP 36.8; O2SAT 96
[2025-03-01] MEDS: Potassium Chloride 10mEq/100mL 10 MEQ/100 ML IV.SOLN. 100 MEQ IV BOLUS ×4 (09:18→14:04)
[2025-03-01] MEDS: Potassium Chloride Oral Soln 20 MEQ/15 ML UDC 10 MEQ PO (09:24)
--- NOTE | 2025-03-01 11:01 | PCM.PROGNOTE ---
Subjective Subjective Patient seen and examined. He was lying calmly in bed and had no complaints. He states his abdomen has always been distended like this as he is a heavyset arlene and so does not see any significant difference. He had a small bowel follow-through yesterday which did not show any evidence of bowel obstruction. He did have some diarrhea overnight so I question with a history of contrast that is passing through. Review of systems otherwise negative. He has remained hemodynamically stable. Objective Data Objective Data Vital Signs: Vital Signs Temp Pulse Resp BP Pulse Ox O2 Del Method 98.2 F 81 16 127/56 H 96 Room Air 03/01/25 08:58 03/01/25 08:58 03/01/25 08:58 03/01/25 08:58 03/01/25 08:58 03/01/25 09:02 Oxygen Delivery Method Room Air Weight: 289 lb 14.526 oz Body Mass Index (BMI) 39.3 Intake & Output: Intake and Output for Last 24 Hours 02/27/25 02/28/25 03/01/25 23:59 23:59 23:59 Intake Total 878.33 / 878.33 2567.08 / 2567.08 556.25 / 556.25 Output Total 3300 / 3300 600 / 600 Balance 878.33 / -121.67 -732.92 / -732.92 -43.75 / -43.75 Lab / Micro Data 03/01/25 05:08 03/01/25 05:08 Labs: Laboratory Results - last 24 hr 03/01/25 05:08: WBC 5.2, RBC 3.83 L, Hgb 11.2 L, Hct 34.2 L, MCV 89.3, MCH 29.2, MCHC 32.7, RDW Std Deviation 47.7 H, RDW Coeff of Vaishnavi 14.6, Plt Count 188, MPV 9.2, Immature Gran % (Auto) 0.200, Neut % (Auto) 63.1, Lymph % (Auto) 22.7, [place] % (Auto) 8.7, Eos % (Auto) 4.7, Baso % (Auto) 0.6, Absolute Neuts (auto) 3.3, Absolute Lymphs (auto) 1.17, Nucleated RBC % 0, PT 30.0 H, INR 2.8, Sodium 139, Potassium 3.1 L, Chloride 107, Carbon Dioxide 19.8 L, Anion Gap 12, BUN 8, Creatinine 0.85, Estim Creat Clear Calc 111.80, Est GFR (MDRD) Non-Af 93, BUN/Creatinine Ratio 9.4 L, Glucose 94, Calcium 8.6 Micro: Microbiology 02/27/25 20:20 Stool Enteric Bacteriology - Final 02/27/25 20:20 Stool Clostridioides difficile (PCR) - Final Radiography Diagnostic Testing: Radiology Impression Small Bowel X-Ray 02/28/25 17:45 IMPRESSION: No evidence of large bowel or small bowel obstruction Reading Location: [facility] Physical Exam Const alert, oriented x3 and no apparent distress Constitutional Narrative: Class III obesity HEENT normocephalic, head/scalp atraumatic, moist oral mucous membranes and oropharynx normal Eyes EOMs intact bilaterally Neck supple and no JVD Lymph Lymphatic: no lymphedema noted Resp normal respiratory effort, normal air movement and clear to auscultation bilaterally Cardio regular rate, regular rhythm, S1 normal heart sound, S2 normal heart sound and no murmurs GI GI Narrative: abdomen moderately distended, tympanitic to percussion, no guarding or rebound tenderness. Extremity normal capillary refill and no clubbing, cyanosis or edema General Extremity: no tenderness to palpation of joints or extremities Skin General Skin Exam: no breakdown Neuro CN's II-XII intact bilaterally and no focal motor deficits Motor Exam: general weakness Psych thought process normal, cooperative and affect normal Appearance: appropriate Assessment & Plan Assessment/Plan (1) Abdominal pain, acute, left lower quadrant: (2) Colon distention: PLAN: Plan #Abdominal distention in the setting of abdominal pain, nausea and diarrhea Nausea and diarrhea have resolved. However he still has significantly distended abdomen. CT of the abdomen and pelvis with gaseous distention of transverse colon without wall thickening and possible mesenteric adenitis as well as IVC filter with possible thrombosis below the filter with numerous abdominal wall collaterals. There was also a large right-sided stool burden CT of the abdomen from 2023 also showed the distended colon. 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 Patient also liquid diet but we will hold in light of the abdominal distention. Continue gentle hydration with IV fluids. General surgery consulted yesterday, he had a small bowel follow through which showed no evidence of obstruction. will start on clear liquid diet and advance slowly as tolerated. #Hyponatremia: resolved. #Hypokalemia: Potassium is 3.1. Will replace and trend. #History of seizure disorder: On lacosamide and zonisamide as well as Lamictal and Keppra. 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 On Coumadin. INR is therapeutic today. CT scan showed IVC filter with possible thrombosis below the filter with numerous abdominal wall collaterals indicating that this likely chronic. #Hypothyroidism: On Synthroid #GERD: On PPI #DVT prophylaxis: On Coumadin and INR therapeutic. Charges/Coding Visit Charges Inpatient E&M: 58626 Subs Hosp L2
--- NOTE | 2025-03-01 11:39 | PN.SURG_ITS ---
Subjective Subjective Patient continues to have bowel function and denies abdominal pain or nausea or vomiting tolerating diet. Objective Data Objective Data Vital Signs: Vital Signs Temp Pulse Resp BP Pulse Ox O2 Del Method 98.2 F 81 16 127/56 H 96 Room Air 03/01/25 08:58 03/01/25 08:58 03/01/25 08:58 03/01/25 08:58 03/01/25 08:58 03/01/25 09:02 Oxygen Delivery Method Room Air Weight: 289 lb 14.526 oz Body Mass Index (BMI) 39.3 Intake & Output: Intake and Output for Last 24 Hours 02/27/25 02/28/25 03/01/25 23:59 23:59 23:59 Intake Total 878.33 / 878.33 2567.08 / 2567.08 1247.50 / 1247.50 Output Total 3300 / 3300 600 / 600 Balance 878.33 / -121.67 -732.92 / -732.92 647.50 / 647.50 Lab / Micro Data 03/01/25 05:08 03/01/25 05:08 Labs: Laboratory Results - last 24 hr 03/01/25 05:08: WBC 5.2, RBC 3.83 L, Hgb 11.2 L, Hct 34.2 L, MCV 89.3, MCH 29.2, MCHC 32.7, RDW Std Deviation 47.7 H, RDW Coeff of Vaishnavi 14.6, Plt Count 188, MPV 9.2, Immature Gran % (Auto) 0.200, Neut % (Auto) 63.1, Lymph % (Auto) 22.7, [place] % (Auto) 8.7, Eos % (Auto) 4.7, Baso % (Auto) 0.6, Absolute Neuts (auto) 3.3, Absolute Lymphs (auto) 1.17, Nucleated RBC % 0, PT 30.0 H, INR 2.8, Sodium 139, Potassium 3.1 L, Chloride 107, Carbon Dioxide 19.8 L, Anion Gap 12, BUN 8, Creatinine 0.85, Estim Creat Clear Calc 111.80, Est GFR (MDRD) Non-Af 93, B UN/Creatinine Ratio 9.4 L, Glucose 94, Calcium 8.6 Micro: Microbiology 02/27/25 20:20 Stool Enteric Bacteriology - Final 02/27/25 20:20 Stool Clostridioides difficile (PCR) - Final Radiography Diagnostic Testing: Radiology Impression Small Bowel X-Ray 02/28/25 17:45 IMPRESSION: No evidence of large bowel or small bowel obstruction Reading Location: [facility] Physical Exam Const oriented x3 and no apparent distress GI soft to palpation and non-tender Assessment & Plan Assessment/Plan (1) Abdominal distension: (2) Colon distention: (3) Hyponatremia: PLAN: Plan Patient tolerating diet denies any abdominal pain. No plans for any general surgery intervention. Yoon Kim M.D. Pager: [phone] [facility] [address] [place] [address], [address] [place] [address] Office: [phone] Charges/Coding Multi Select Codes Visit Charges Visit Charges: 10745 Subs Hosp L2
[2025-03-01] MEDS: ZONISAMIDE 100 MG CAPSULE 200 MG PO ×2 (12:32→17:08)
[2025-03-01 14:06] VITALS: BP 140/69; PULSE 77; RESP 18; TEMP 37.2; O2SAT 96
[2025-03-01 17:05] VITALS: BP 148/63; PULSE 79; RESP 18; TEMP 37.4; O2SAT 98
[2025-03-01 21:31] VITALS: BP 143/74; PULSE 74; RESP 18; TEMP 36.8; O2SAT 97
[2025-03-02 03:36] VITALS: BP 152/69; PULSE 79; RESP 18; TEMP 36.2; O2SAT 98
[2025-03-02 03:50] VITALS: BMI 38.9
[2025-03-02 05:39] LABS: Hematocrit 34.7 % (40-54); Hemoglobin 11.6 g/dL (13.0-16.5); Immature Granulocytes Count 0.020 X10^3/uL (0.0-0.0); Mean Corp Hgb Conc 33.4 g/dL (32-36); Mean Corpuscular Volume 89.2 fL (80-94); Mean Platelet Vol. 8.7 fl (6.2-12.0); NRBC Flagged by Analyzer 0 % (0-5); Platelet Count 192 K/mm3 (150-450); RBC Distribution Width CV 14.7 % (11.6-14.6); RBC Distribution Width SD 47.9 fl (35.1-43.9); Red Blood Count 3.89 M/mm3 (4.6-6.2); White Blood Count 6.4 K/mm3 (4.4-11.0)
[2025-03-02 05:51] LABS: Prothrombin Time (Protime)PT. 34.4 SECONDS (11.7-14.9)
[2025-03-02 06:02] LABS: Anion Gap 11 (5-15); BUN 6 mg/dL (4-19); BUN/Creat Ratio 7.0 RATIO (10-20); Calcium,Total 8.8 mg/dL (7.6-11.0); Carbon Dioxide 20.9 mmol/L (21.0-32.0); Chloride 107 mmol/L (98-108); Estimated Creatinine Clearance 116.75 ml/min (50-250); Glucose 104 mg/dL (70-99); Potassium 3.4 mmol/L (3.3-5.1)
--- NOTE | 2025-03-02 08:32 | PCM.PN.SRG ---
Subjective Subjective Patient is evaluated resting comfortably in bed. He denies any nausea, vomiting or abdominal pain. He is tolerating clear liquids well. Patient voices his abdomen has returned to his normal. Positive diarrhea. Negative C Diff. Objective Data Objective Data Vital Signs: Vital Signs Temp Pulse Resp BP Pulse Ox O2 Del Method 97.2 F L 79 18 152/69 H 98 Room Air 03/02/25 03:36 03/02/25 03:36 03/02/25 03:36 03/02/25 03:36 03/02/25 03:36 03/02/25 03:36 Oxygen Delivery Method Room Air Weight: 287 lb 4.197 oz Body Mass Index (BMI) 38.9 Intake & Output: Intake and Output for Last 24 Hours 02/28/25 03/01/25 03/02/25 23:59 23:59 23:59 Intake Total 2567.08 / 2567.08 2147.50 / 2147.50 360 / 360 Output Total 3300 / 3300 1250 / 1950 1350 / 1350 Balance -732.92 / -732.92 897.50 / 197.50 -990 / -990 Lab / Micro Data 03/02/25 05:12 03/02/25 05:12 Labs: Laboratory Results - last 24 hr 03/02/25 05:12: WBC 6.4, RBC 3.89 L, Hgb 11.6 L, Hct 34.7 L, MCV 89.2, MCH 29.8, MCHC 33.4, RDW Std Deviation 47.9 H, RDW Coeff of Vaishnavi 14.7 H, Plt Count 192, MPV 8.7, Immature Gran % (Auto) 0.300, Neut % (Auto) 64.6, Lymph % (Auto) 22.2, [place] % (Auto) 8.5, Eos % (Auto) 3.9, Baso % (Auto) 0.5, Absolute Neuts (auto) 4.2, Absolute Lymphs (auto) 1.43, Nucleated RBC % 0, PT 34.4 H, INR 3.3, Sodium 138, Potassium 3.4, Chloride 107, Carbon Dioxide 20.9 L, Anion Gap 11, BUN 6, Creatinine 0.81, Estim Creat Clear Calc 116.75, Est GFR (MDRD) Non-Af 94, BUN/Creatinine Ratio 7.0 L, Glucose 104 H, Calcium 8.8 Micro: Microbiology 02/27/25 20:20 Stool Enteric Bacteriology - Final 02/27/25 20:20 Stool Clostridioides difficile (PCR) - Final Physical Exam GI GI Narrative: Abdomen- soft, distended/obtunded. Nontender to palpation. Hypoactive bowel sounds Assessment & Plan Assessment/Plan (1) Abdominal distension: PLAN: Plan I am following this patient in conjunction with Dr. Kim. She will independently evaluate this patient. Labs reviewed Increase to regular diet No surgical intervention planned at this time If tolerate regular diet, patient may be discharged from surgical standpoint We will sign off at this time. Please reach out if we can be of assistance Charges/Coding Visit Charges Inpatient E&M: 57058 Subs Hosp L2
[2025-03-02 10:06] VITALS: BP 134/74; PULSE 78; RESP 14; TEMP 37; O2SAT 97
[2025-03-02] MEDS: Potassium Chloride Oral Soln 20 MEQ/15 ML UDC 10 MEQ PO (10:08)
[2025-03-02] MEDS: ZONISAMIDE 100 MG CAPSULE 200 MG PO (11:56)
--- NOTE | 2025-03-02 13:25 | CASEMGMT ---
Social Work SW provided resources to pt for transportation and food pantries. Pt explained to SW that his has looked into Meals on Wheels but they cannot afford it as they are not on Medicaid. Pt states his is coming in later and asked for SW to come back in when she is here, SW gave pt SW phone number to call when she gets here. SW inquired how she will get here, he states she has a program that can take her here for a couple of dollars, can give her a ride one way. SW inquired how she was going to get home from here, he states a neighbor would take her home. SW inquired if the neighbor could give him a ride home too, he thinks so. Pt then asked for the SW, SW met w/pt, he states that his cannot get here. He states she got a package in the mail and the cost was going to be $50 for transportation. However she needs to buy a membership and without the membership the cost is $200 for transportation. SW unsure of what program this would be. Pt is concerned how he would get home, cannot afford the cost. SW explained we can try for the hospital van which is free. Pt thinks this would be best. SW called the hospital van, the RN does think pt can get up and into the van. The van has availability at 2pm, will see if they can do any later, SW awaiting for a call back. ADDIE Thompson
--- NOTE | 2025-03-02 13:28 | DCINST_ITS ---
Discharge Instructions DC O2, CPAP, BIPAP needs Home O2 Discharge instructions: No Dressing / Incision Discharge Activity: Return to Normal Activity Weight Bearing Status: Weight bearing as tolerated Dressing / Incision Call your doctor if you observe: Fever of 101 or Higher, Shortness of breath, Dizziness, Swelling in the ankles and Chest pain Follow Up Care Test Results: Test results from this visit will be discussed in further detail at your follow- up appointment, if applicable. Discharge Plan Admission Admit Date/Time: 02/27/25 14:27 Primary Reason for Your Visit: abdominal distension Attending Provider: Danae Stanton Primary Care Provider: Hari Oneill Consulting Providers: Lisa Mike; Yoon Kim Instructions Patient Instructions: Abdominal Pain Discharge Orders/Prescriptions Prescriptions: Continued warfarin 7.5 mg tablet 7.5 mg PO DAILY lamotrigine [Lamictal] 200 MG tablet 200 mg PO BID zonisamide 100 MG capsule 100 mg PO BID Patient Comments: 2 tabs at lunch and 2 tabs at hs lacosamide 200 mg tablet 200 mg PO BID levothyroxine 88 mcg tablet 88 mcg PO DAILY levetiracetam 750 mg tablet 1,500 mg PO BID furosemide 40 mg tablet 20 mg PO DAILY ibuprofen 600 mg tablet 600 mg PO Q6H PRN (Reason: fever or pain) Qty: 20 0RF tamsulosin 0.4 mg capsule 0.4 mg PO QHS potassium chloride 20 mEq/15 mL liquid 10 meq PO DAILY Referrals / Follow Up: Hari Oneill DO [Primary Care Provider] - Within 1 Week Disposition Disposition (needs filled in before D/C Order can be placed): Home, Self Care
--- NOTE | 2025-03-02 13:29 | PCM.DC.SUM ---
Providers Date of Admission: 02/27/25 Date of Discharge: 03/02/25 Primary Care Physician: Dr. Hari Oneill, Consultations 02/27/25 16:00 Consult: Gastroenterology Routine Consulting Provider: [facility] Reason for Consult: abd discomfort, diarrhea, gaseous distention of colon, ?mesenteric adenitis EMERGENT Consult: No MD Notified: Yes Date Notified: 02/27/25 Time Notified: 16:28 Method of Notification: Text 02/28/25 17:18 Consult: General Surgery Routine Consulting Provider: Yoon Kim Reason for Consult: Distended stomach, hypoactive BS, CT EMERGENT Consult: No MD Notified: Yes Date Notified: 02/28/25 Time Notified: 17:19 Method of Notification: Verbal Reason For Visit: HYPONATREMIA, ABDOMINAL PAIN Diagnosis Discharge Diagnosis (1) Abdominal distension: Status: Acute Code(s): R14.0 - Abdominal distension (gaseous) Plan #Abdominal distention in the setting of abdominal pain, nausea and diarrhea Nausea and diarrhea have resolved. However he still has significantly distended abdomen. CT of the abdomen and pelvis with gaseous distention of transverse colon without wall thickening and possible mesenteric adenitis as well as IVC filter with possible thrombosis below the filter with numerous abdominal wall collaterals. There was also a large right-sided stool burden CT of the abdomen from 2023 also showed the distended colon. 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 Patient also liquid diet but we will hold in light of the abdominal distention. Continue gentle hydration with IV fluids. General surgery consulted yesterday, he had a small bowel follow through which showed no evidence of obstruction. will start on clear liquid diet and advance slowly as tolerated. #Hyponatremia: resolved. #Hypokalemia: Potassium is 3.1. Will replace and trend. #History of seizure disorder: On lacosamide and zonisamide as well as Lamictal and Keppra. 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 On Coumadin. INR is therapeutic today. CT scan showed IVC filter with possible thrombosis below the filter with numerous abdominal wall collaterals indicating that this likely chronic. #Hypothyroidism: On Synthroid #GERD: On PPI #DVT prophylaxis: On Coumadin and INR therapeutic. Medications at Discharge Home Medications lamotrigine 200 mg tablet (Lamictal) 200 mg PO BID SEIZURES 03/12/14 lacosamide 200 mg tablet 200 mg PO BID SEIZURES 09/17/19 zonisamide 100 mg capsule 100 mg PO BID SEIZURES 09/17/19 warfarin 7.5 mg tablet 7.5 mg PO DAILY BLOOD THINNER 09/12/21 levetiracetam 750 mg tablet 1,500 mg PO BID SEIZURES 03/11/24 levothyroxine 88 mcg tablet 88 mcg PO DAILY THYROID 03/11/24 furosemide 40 mg tablet 20 mg PO DAILY water pill 03/19/24 ibuprofen 600 mg tablet 600 mg PO Q6H PRN fever or pain #20 tabs 03/21/24 potassium chloride 20 mEq/15 mL oral liquid 10 meq PO DAILY supplement 02/27/25 tamsulosin 0.4 mg capsule 0.4 mg PO QHS prostate 02/27/25 Hospital Course Operations None Procedures None Summary of Care Provided Minutes Spent on Discharge: 45 Hospital Course: Patient is a 69-year-old male with an extensive past medical history as outlined was admitted to the ED on 02/27/2025 with complaint of abdominal pain and nausea and diarrhea. He said he had been drinking a lot of water and says you have a lot getting going on like that. CT of the abdomen and pelvis that showed gaseous distention of the transverse colon without wall thickening and possible mesenteric adenitis as well as IVC filter with possible thrombosis below the filter with numerous abdominal wall collaterals. Labs were significant for sodium of 121. Potassium was also 3. He was admitted and managed for abdominal pain, nausea and diarrhea as well as hyponatremia. He was hydrated with IV fluids initially kept NPO. Gastroenterology was consulted due to right-sided stool burden. CT scan. Potassium was replaced. Gastroenterology reviewed patient and was concerned about possible Ewelina syndrome. However, abdominal pain resolved and he was able to tolerate a diet. He remained stable and was discharged home on 03/02/2025. He is to follow up with his PCP within 1-2 weeks. Patient seen and examined prior to discharge. He had no acitve complaints. Review of systems is otherwise negative. Labs and vitals reviewed. Home meds reviewed and reconciled. He is to follow with gastroenterology on outpatient basis. Physical Exam Const alert, oriented x3 and no apparent distress Constitutional Narrative: Class III obesity General Appearance: cooperative and comfortable HEENT normocephalic, head/scalp atraumatic, hearing grossly normal bilaterally, moist oral mucous membranes and oropharynx normal Mouth: oral and palatal mucosa normal Eyes PERRL and EOMs intact bilaterally Neck supple and no JVD Lymph Lymphatic: no lymphedema noted Resp normal respiratory effort, normal air movement and clear to auscultation bilaterally Cardio regular rate, regular rhythm, S1 normal heart sound, S2 normal heart sound and no murmurs GI GI Narrative: abdomen moderately distended but not tender, tympanitic to percussion, no guarding or rebound tenderness. Says thats how his abdomen is. Extremity normal capillary refill and no clubbing, cyanosis or edema General Extremity: no tenderness to palpation of joints or extremities Skin General Skin Exam: no breakdown Neuro oriented x3, CN's II-XII intact bilaterally, moves all extremities and no focal motor deficits Sensorium / Orientation: awake Motor Exam: strength 5/5 throughout Psych thought process normal, cooperative and affect normal Appearance: appropriate Weight / BMI Weight Weight: 287 lb 4.197 oz Body Mass Index (BMI) 38.9 ABG / Lab / Microbiology Data 03/02/25 05:12 03/02/25 05:12 Laboratory: Laboratory Results - last 24 hr 03/02/25 05:12: WBC 6.4, RBC 3.89 L, Hgb 11.6 L, Hct 34.7 L, MCV 89.2, MCH 29.8, MCHC 33.4, RDW Std Deviation 47.9 H, RDW Coeff of Vaishnavi 14.7 H, Plt Count 192, MPV 8.7, Immature Gran % (Auto) 0.300, Neut % (Auto) 64.6, Lymph % (Auto) 22.2, Gaines % (Auto) 8.5, Eos % (Auto) 3.9, Baso % (Auto) 0.5, Absolute Neuts (auto) 4.2, Absolute Lymphs (auto) 1.43, Nucleated RBC % 0, PT 34.4 H, INR 3.3, Sodium 138, Potassium 3.4, Chloride 107, Carbon Dioxide 20.9 L, Anion Gap 11, BUN 6, Creatinine 0.81, Estim Creat Clear Calc 116.75, Est GFR (MDRD) Non-Af 94, BUN/Creatinine Ratio 7.0 L, Glucose 104 H, Calcium 8.8 Microbiology: Microbiology 02/27/25 20:20 Stool Enteric Bacteriology - Final 02/27/25 20:20 Stool Clostridioides difficile (PCR) - Final D/C Instructions Discharge Activity: Return to Normal Activity Weight Bearing Status: Weight bearing as tolerated Call your doctor if you observe: Fever of 101 or Higher, Shortness of breath, Dizziness, Swelling in the ankles and Chest pain DC O2, CPAP, BIPAP Needs Home O2 Discharge instructions: No DC home with Oxygen: No Meaningful Use Info Meaningful Use Meaningful Use Diagnoses (Choose all that apply): None applicable Discharge Plan Admission Admit Date/Time: 02/27/25 14:27 Primary Reason for Your Visit: abdominal distension Attending Provider: Danae Stanton Primary Care Provider: Hari Oneill Consulting Providers: Lisa Mike; Yoon Kim Instructions Patient Instructions: Abdominal Pain Discharge Orders/Prescriptions Prescriptions: Continued warfarin 7.5 mg tablet 7.5 mg PO DAILY lamotrigine [Lamictal] 200 MG tablet 200 mg PO BID zonisamide 100 MG capsule 100 mg PO BID Patient Comments: 2 tabs at lunch and 2 tabs at hs lacosamide 200 mg tablet 200 mg PO BID levothyroxine 88 mcg tablet 88 mcg PO DAILY levetiracetam 750 mg tablet 1,500 mg PO BID furosemide 40 mg tablet 20 mg PO DAILY ibuprofen 600 mg tablet 600 mg PO Q6H PRN (Reason: fever or pain) Qty: 20 0RF tamsulosin 0.4 mg capsule 0.4 mg PO QHS potassium chloride 20 mEq/15 mL liquid 10 meq PO DAILY Referrals / Follow Up: Hari Oneill DO [Primary Care Provider] - 03/04/25 1:40 am (Appointment is with Dr. Isak Moncada in [place]. Needs to arrive by 1:25 PM for 1:40 PM appointment) Luis A Singh DO [Med Staff - Active Staff] - Within 2 Weeks Disposition Disposition (needs filled in before D/C Order can be placed): Home, Self Care Charges/Coding Visit Charges Inpatient E&M: 71041 Disch Hosp >30min
[2025-03-02 13:42] VITALS: BP 144/58; PULSE 90; RESP 14; TEMP 37.3; O2SAT 98
--- NOTE | 2025-03-02 13:59 | CASEMGMT ---
Social Work Van now set up for 3:30pm, RN aware, pt also aware. Pt now indicating to RN that his may be on the way here. SW spoke w/pt, he states she wants to speak w/SW about the papers SW gave him. SW reminded pt that SW did already give him this SW's phone number and she can call even after pt is discharged. SW offered to call , pt agreeable to this. SW called , got answering machine that says if a message is left they will not return the call. SW let pt know, he states she may already be on her way here. SW did call the hospital van, if she gets here they can give her a ride home too, SW let pt know. SW did try one more time, she answered. SW let her know pt is coming home today by hospital van. She was already aware, pt got a hold of her. SW let her know that SW gave pt resources, and SW phone number is on the information, she can call SW if she has any questions, states understanding. No further social service needs anticipated. ADDIE Thompson
== END 2025-03-02 15:25 | disposition home or self-care (01) | DRG 393 ==
LOC: ED 14:28 → PCU 14:58
PROVIDERS: Admitting Provider Internal Medicine; Emergency Provider Emergency Medicine; PCP Student in an Organized Health Care Education/Training Program; Visit Provider Student in an Organized Health Care Education/Training Program
DX: I88.0 Nonspecific mesenteric lymphadenitis (principal); I82.221 Chronic embolism and thrombosis of inferior vena cava; E87.1 Hypo-osmolality and hyponatremia; G40.909 Epilepsy, unspecified, not intractable, without status epilepticus; E66.813 Obesity, class 3; E03.9 Hypothyroidism, unspecified; I10 Essential (primary) hypertension; K21.9 Gastro-esophageal reflux disease without esophagitis; E87.6 Hypokalemia; Z86.718 Personal history of other venous thrombosis and embolism; Z79.899 Other long term (current) drug therapy; Z79.01 Long term (current) use of anticoagulants; Z68.39 Body mass index [BMI] 39.0-39.9, adult
CPT/HCPCS: 36415; 74177; 74250; 80048; 80053; 81001; 82010; 82436; 82803; 83605; 83930; 83935; 84133; 84300; 84443; 84540; 85025; 85610; 87493; 87506; 99285; Q9967; A4216; J2405

== ENCOUNTER 2025-03-05 11:41 | Inpatient (IN) | payer MEDICARE, SELFPAY ==
[2025-03-05] VITALS (8 sets, daily range): BP systolic 143–197; BP diastolic 66–96; PULSE 67–81; RESP 16–18; TEMP 36.7–37; O2SAT 99–100; BMI 41.0; BMI 39.3
--- NOTE | 2025-03-05 11:50 | EKG12_ITS ---
Test Reason : SOB Blood Pressure : */* mmHG Vent. Rate : 83 BPM Atrial Rate : 83 BPM P-R Int : 212 ms QRS Dur : 80 ms QT Int : 392 ms P-R-T Axes : 45 27 39 degrees QTcB Int : 460 ms Sinus rhythm with 1st degree A-V block Otherwise normal ECG Confirmed by ALEX SALDANA, RAFFI ([id number]), film or videotape editor SAL BRAVO ([id number]) on 03/09/2025 8:18:06 AM Referred By: Confirmed By: RAFFI JOHNSON MD
--- NOTE | 2025-03-05 11:51 | CT_ITS ---
PROCEDURE: ABDOMEN/PELVIS W IV CONT ONLY 03/05/2025 REASON FOR EXAM: ABDOMINAL PAIN Lower abdominal pain and diarrhea. TECHNIQUE: ABDOMEN/PELVIS W IV CONT ONLY Coronal and Sagittal reconstruction series were provided. CONTRAST: Isovue 370 VOLUME: 100 mL One or more dose reduction techniques were used (e.g., Automated exposure control, adjustment of the mA and/or kV according to patient size, use of iterative reconstruction technique. RADIATION DOSE SUMMARY: CTDlvol: 17.02 mGy DLP: 1306.75 mGycm COMPARISON: Prior study dated February 27, 2025. FINDINGS: Lung bases: Lung bases are clear. Liver: Normal size. No mass. Gallbladder: There is a 1.6 cm gallstone in the neck of the gallbladder. Spleen: Normal size. Pancreas: Diffuse fatty atrophy. Adrenals: Unremarkable Kidneys: Stable bilateral parapelvic renal cysts. Bladder: Distended urinary bladder. Bowel: Moderate amount of fecal material is seen throughout the colon. Appendix: Nonvisualized. Lymph nodes: Small retroperitoneal lymph nodes. Vasculature: Mild diffuse atherosclerotic calcifications are noted. A filter is seen within the inferior vena cava. Peritoneum / Retroperitoneum: Increased markings are seen within the root of the mesentery. This is a nonspecific finding and may represent early inflammatory changes. This is unchanged. Venous collaterals are seen within the subcutaneous tissues. Possible portal hypertension should be ruled out. Bones: Degenerative changes of the spine. CT/Abdomen/Pelvis W IV Cont ONLY IMPRESSION: Gallstone in the neck of the gallbladder. Venous collateral seen throughout the subcutaneous tissues as described. Increased markings in the peritoneal fat in the in the root of the mesentery. This is stable. Reading Location: [id number]
--- NOTE | 2025-03-05 11:51 | ED.VIS.GI ---
HPI HPI - GI History of Present Illness Chief Complaint: Abd Pain Diarrhea/Melena/Hematochezia GI Symptom: Positive for Diarrhea Onset: Weeks Stool Quality: Positive for Loose Episodes: 8 Narrative Narrative: 69-year-old male presents via EMS with generalized weakness and abdominal pain with distention that he has had for few weeks. He relates history that he was admitted to the hospital sometime last week, and had hypokalemia. He states that even though he was released from the hospital he was not feeling any better and was still having abdominal pain and diarrhea. He denies any recent antibiotic use but states within the last 24 hours he has had 8 episodes of diarrhea. No fevers or chills, no nausea or vomiting. He states he has had decreased activity and generalized weakness although he was able to get up and go to the bathroom from the cot when he arrived via EMS. He states he called the squad today because he had not been feeling well. [facility] Medical History Seizures Loss of one eye Wears glasses Cancer Thyroid disease Arthritis Prostate disease Bladder disease Low iron High cholesterol Diarrhea Gastric reflux Non-smoker History of pain when walking Heart murmur Localized swelling of both lower legs Abnormal biliary HIDA scan Anxiety and depression HTN (hypertension) History of DVT of lower extremity Seizure disorder Home Medications ?Medication ?Instructions ?Recorded ?Last Taken ?Type lamotrigine 200 mg tablet 200 mg PO BID SEIZURES 03/12/14 03/21/24 History (Lamictal) lacosamide 200 mg tablet 200 mg PO BID SEIZURES 09/17/19 03/04/25 History zonisamide 100 mg capsule 100 mg PO BID SEIZURES 09/17/19 03/20/24 History warfarin 7.5 mg tablet 7.5 mg PO DAILY BLOOD THINNER 09/12/21 03/16/24 History levetiracetam 750 mg tablet 1,500 mg PO BID SEIZURES 03/11/24 03/21/24 History levothyroxine 88 mcg tablet 88 mcg PO DAILY THYROID 03/11/24 03/21/24 History furosemide 40 mg tablet 20 mg PO DAILY water pill 03/19/24 Unknown History ibuprofen 600 mg tablet 600 mg PO Q6H PRN fever or pain 03/21/24 03/04/25 Rx #20 tabs potassium chloride 20 mEq/15 mL 10 meq PO DAILY supplement 02/27/25 Unknown History oral liquid tamsulosin 0.4 mg capsule 0.4 mg PO QHS prostate 02/27/25 Unknown History Allergy/AdvReac Type Severity Reaction Status Date / Time No Known Allergies Allergy Verified 03/05/25 11:42 Surgical History Hx of colonoscopy History of vascular access device Hx of vascular surgery Hx of left cataract extraction Social History household members: spouse Smoking Status: Never smoker ROS ROS ED ROS Narrative Review of systems positive for generalized weakness, lethargy, abdominal pain periumbilical to suprapubic with distention. No exacerbating or alleviating factors. EXAM Physical Exam Narrative Exam Narrative: Afebrile. Vital signs noted. Nontoxic-appearing. Able to ambulate in the ED upon arrival. 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 Slightly tacky mucous membranes. No drooling or trismus. Neck soft and supple without meningismus. Cardiovascular examination regular rate and rhythm. Lungs clear to auscultation bilaterally anteriorly. Abdomen is soft, mildly distended with tenderness to palpation in the suprapubic area. Positive bowel sounds. Neurological examination is nonfocal and nonlateralizing. Const Vital Signs: 03/05/25 11:42 03/05/25 13:42 03/05/25 15:00 Temperature 98.1 F Temperature Source Oral Pulse Rate 81 81 71 Respiratory Rate 18 Blood Pressure 197/86 H 153/96 H 143/66 H Blood Pressure Mean 123 115 91 Pulse Ox 100 100 Oxygen Delivery Method Room Air 03/05/25 15:38 Temperature 98.1 F Temperature Source Pulse Rate 71 Respiratory Rate 18 Blood Pressure 150/68 H Blood Pressure Mean 95 Pulse Ox 100 Oxygen Delivery Method MDM MDM MDM Narrative Medical decision making narrative: I reviewed the patient's prior records. He was seen in the emergency department and admitted to the PCU because CT of the abdomen and pelvis showed transverse colon distention without evidence of obstruction or inflammation. He did have hyponatremia as well. Differential diagnosis includes but not limited to development of intra-abdominal abscess versus diverticulitis versus obstruction versus UTI. I will check his CMP for electrolyte imbalance or hyponatremia and hypokalemia which she had previously. In review of his problem list he has had ileus as well. He is on Coumadin so INR will be checked as he has history of supratherapeutic INR as well. UA will be checked to look for signs of infection or cystitis. EKG was obtained and interpreted by myself independently as normal sinus rhythm at [address] changes. No STEMI. I reviewed his laboratory work and he has a normal white count of 7.6 with a hemoglobin stable at 11.8, platelet count 192. INR is therapeutic at 2.4. Review of his electrolyte panel shows hyponatremia of 120 and chloride 89. Potassium normal at 3.8. When compared to prior labs, he did have hyponatremia which had improved but it was not this low previously. Glucose 123. LFTs show AST slightly elevated at 46 but normal lipase of 40 and alk phos normal at 119. Total bili normal at 0.38. Urinalysis is negative for infection. No feel antibiotics are indicated. Also, I reviewed the radiology report of the CT of the abdomen and pelvis and while there is no reason for his lower abdominal pain there was reported, he does have a gallstone in the neck of the gallbladder. He is not having nausea or vomiting or right upper quadrant pain. I did obtain gallbladder ultrasound which does show solitary gallstone in the neck of the gallbladder on the radiology report. At this point in time, given his hyponatremia, I discussed the patient with Dr. Rashid for admission. Disposition is admit in stable condition. History & Record Review Discussion w/independent historian: Patient Additional record(s) reviewed:: Prior ED visit (Previous transverse colon dilation but no evidence of obstruction.) and Prior labs Lab Data Attestation: I reviewed the patient's lab results. Labs: Laboratory Results - last 24 hr 03/05/25 03/05/25 03/05/25 11:54 12:05 12:13 WBC 7.6 RBC 3.97 L Hgb 11.8 L Hct 33.7 L MCV 84.9 MCH 29.7 MCHC 35.0 RDW Std Deviation 42.6 RDW Coeff of Vaishnavi 13.7 Plt Count 192 MPV 9.2 Immature Gran % (Auto) 0.300 Neut % (Auto) 73.3 H Lymph % (Auto) 15.9 L Tyrrell % (Auto) 7.0 Eos % (Auto) 3.2 Baso % (Auto) 0.3 Absolute Neuts (auto) 5.6 Absolute Lymphs (auto) 1.20 Nucleated RBC % 0 PT 26.4 H INR 2.4 Sodium 120 L Potassium 3.8 Chloride 89 L Carbon Dioxide 17.6 L Anion Gap 13 BUN 12 Creatinine 0.77 Estim Creat Clear Calc 121.52 Est GFR (MDRD) Non-Af 96 BUN/Creatinine Ratio 16.0 Glucose 123 H Calcium 8.1 Total Bilirubin 0.38 AST 46 H ALT 22 Alkaline Phosphatase 119 Total Protein 6.6 Albumin 3.8 Globulin 2.9 Albumin/Globulin Ratio 1.3 Lipase 40 Urine Color Straw Urine Clarity Clear Urine pH 7.0 Ur Specific [place] 1.005 Urine Protein Negative Urine Glucose (UA) Normal Urine Ketones Negative Urine Occult Blood Negative Urine Nitrite Negative Urine Bilirubin Negative Urine Urobilinogen Normal Ur Leukocyte Esterase Negative Urine RBC 0 SEEN Urine WBC 0 SEEN Ur Squamous Epith Cells 0 SEEN Urine Bacteria 0 SEEN Urine Mucus 0 SEEN Radiography Diagnostic Testing: Clinical Impression(s) from Imaging Studies Abdomen/Pelvis CT 03/05/25 11:51 IMPRESSION: Gallstone in the neck of the gallbladder. Venous collateral seen throughout the subcutaneous tissues as described. Increased markings in the peritoneal fat in the in the root of the mesentery. This is stable. Reading Location: [facility] Gallbladder Ultrasound 03/05/25 13:40 IMPRESSION: Solitary gallstone in the neck of the gallbladder. Hepatomegaly and fatty infiltration of the liver. Reading Location: [facility] Management Discussion w/another healthcare provider: Hospitalist (Dr. Rashid) Discharge Plan Dx/Rx/DC Orders Clinical Impression: Hyponatremia, Generalized weakness, Gallstone Disposition Disposition: Acute Care Hospital [facility]
[2025-03-05 12:09] LABS: Hematocrit 33.7 % (40-54); Hemoglobin 11.8 g/dL (13.0-16.5); Immature Granulocytes Count 0.020 X10^3/uL (0.0-0.0); Mean Corp Hgb Conc 35.0 g/dL (32-36); Mean Corpuscular Volume 84.9 fL (80-94); Mean Platelet Vol. 9.2 fl (6.2-12.0); NRBC Flagged by Analyzer 0 % (0-5); Platelet Count 192 K/mm3 (150-450); RBC Distribution Width CV 13.7 % (11.6-14.6); RBC Distribution Width SD 42.6 fl (35.1-43.9); Red Blood Count 3.97 M/mm3 (4.6-6.2); White Blood Count 7.6 K/mm3 (4.4-11.0)
[2025-03-05 12:13] LABS: Mucous, Urine 0 SEEN /hpf (<or=2+); Red Blood Cells-Urine 0 SEEN /hpf (0-5); Squamous Epithelial Cells - UA 0 SEEN /hpf (0-5)
[2025-03-05] MEDS: 0.9% Normal Saline (1000mL) 1,000 ML 999 ML IV (12:13)
[2025-03-05 12:15] LABS: Color, Urine Straw (Yellow); Glucose, Dipstick Normal (Normal); Ketone-Dipstick Negative (Negative); Leukocyte Esterase-Dipstick Negative /ul (Negative); Nitrite-Dipstick Negative (Negative); Occult Blood-Urine Negative /ul (Negative); Protein-Dipstick Negative (Negative); Specific Gravity, Urine 1.005 (1.002-1.030); Urine Bilirubin Dipstick Negative (Negative)
[2025-03-05 12:28] LABS: AST(SGOT) 46 U/L (<=37); Alanine Aminotransfer ALT/SGPT 22 U/L (<=46); Albumin, Serum 3.8 g/dL (3.4-4.8); Alkaline Phosphatase 119 U/L (40-129); Anion Gap 13 (5-15); BUN 12 mg/dL (4-19); BUN/Creat Ratio 16.0 RATIO (10-20); Calcium,Total 8.1 mg/dL (7.6-11.0); Carbon Dioxide 17.6 mmol/L (21.0-32.0); Chloride 89 mmol/L (98-108); Estimated Creatinine Clearance 121.52 ml/min (50-250); Globulin 2.9 g/dL (2.2-4.2); Glucose 123 mg/dL (70-99); Lipase 40 U/L (13-75); Potassium 3.8 mmol/L (3.3-5.1)
[2025-03-05 12:38] LABS: Prothrombin Time (Protime)PT. 26.4 SECONDS (11.7-14.9)
--- NOTE | 2025-03-05 13:40 | US_ITS ---
PROCEDURE: GALLBLADDER N/A REASON FOR EXAM: GALLSTONE, PAIN COMPARISON: CT scan done earlier in the day. FINDINGS: Liver: Diffusely echogenic suggesting fatty infiltration. Hepatomegaly. The liver measures 20 cm. Gallbladder: Solitary gallstone in the neck of the gallbladder measuring 2.6 cm x 2.6 cm. Common bile duct: Not visualized due to overlying bowel gas. . Pancreas: Obscured by bowel gas. Other: Visualized portions of the right kidney are unremarkable. No right upper quadrant ascites. US/Gallbladder IMPRESSION: Solitary gallstone in the neck of the gallbladder. Hepatomegaly and fatty infiltration of the liver. Reading Location: [id number]
--- NOTE | 2025-03-05 15:36 | HP.PCM.HOS_ITS ---
HPI - General General Date of Admission: 03/05/25 Date of Service: 03/05/25 Chief Complaint: Persistent abdominal pain with diarrhea and weakness HPI Narrative EDER VILLANUEVA, is a 69 M who presented to [facility] ED on 03/05/2025 with persistent abdominal pain with diarrhea and weakness. Patient was hospitalized here from 02/27-03/02 for abdominal pain with distention and diarrhea. GI and general surgery followed. CT abdomen pelvis on 02/27 showed gaseous distention of the transverse colon but wall thickening and marc infiltration of the small bowel mesentery possibly concerning for mesenteric adenitis. Small bowel follow-through on 02/28 showed no evidence of large bowel or small bowel obstruction. GI noted that Ewelina syndrome (acute colonic pseudoobstruction) was a strong possibility in this patient's case but differential diagnosis also included chronic intestinal pseudoobstruction, inflammatory bowel disease and lymphoma. Was noted that the nausea and diarrhea resolved during the hospitalization, though patient continued to have significant abdominal distention. He was initiated on a liquid diet and slowly advanced up to discharge. Unfortunately, patient states that he had recurrence of both nausea and diarrhea shortly after arriving back home leading to some degree of dehydration and worsening weakness, so he came back in to the ED today for further evaluation. In the ED he was hypertensive to the 150s systolic but otherwise in normal sinus rhythm and stable on room air at rest. Labs notable for sodium [address] abdomen pelvis showed stable findings for previous; 1.6 cm gallstone was noted in the neck of the bladder but this was noted on prior CT and was 2.1 cm at that time. Gallbladder ultrasound confirmed gallstone but no evidence of acute cholecystitis. Given his persistent symptoms with weakness and hyponatremia, hospitalist was contacted for admission. I saw the patient at bedside in the ED. Patient was laying back in bed and was fatigued appearing. He was reporting generalized discomfort due to ongoing abdominal pain with distention. He had not had a bowel movement since arriving to the ED. Was given a dose of p.o. Bentyl without much improvement. Denies any fevers or chills. Denies any chest pain or shortness of breath. Will be admitted for further management. [facility] Medical History Seizures Loss of one eye Wears glasses Cancer Thyroid disease Arthritis Prostate disease Bladder disease Low iron High cholesterol Diarrhea Gastric reflux Non-smoker History of pain when walking Heart murmur Localized swelling of both lower legs Abnormal biliary HIDA scan Anxiety and depression HTN (hypertension) History of DVT of lower extremity Seizure disorder Home Medications ?Medication ?Instructions ?Recorded ?Last Taken ?Type lamotrigine 200 mg tablet 200 mg PO BID SEIZURES 03/1203/21/24 History (Lamictal) lacosamide 200 mg tablet 200 mg PO BID SEIZURES 09/1703/04/25 History zonisamide 100 mg capsule 100 mg PO BID SEIZURES 09/1703/20/24 History warfarin 7.5 mg tablet 7.5 mg PO DAILY BLOOD THINNE R 09/12/21 03/16/24 History levetiracetam 750 mg tablet 1,500 mg PO BID SEIZURES 0 03/11/24 03/21/24 History levothyroxine 88 mcg tablet 88 mcg PO DAILY THYROID 03/21/24 History furosemide 40 mg tablet 20 mg PO DAILY water pill Unknown History ibuprofen 600 mg tablet 600 mg PO Q6H PRN fever or p ain 03/21/24 03/04/25 Rx #20 tabs potassium chloride 20 mEq/15 mL 10 meq PO DAILY supple ment 02/27/25 Unknown History oral liquid tamsulosin 0.4 mg capsule 0.4 mg PO QHS prostate 02/27 Unknown History Allergy/AdvReac Type Severity Reaction Status Date / Time No Known Allergies Allergy Verified 03/05/25 11:42 Surgical History Hx of colonoscopy History of vascular access device Hx of vascular surgery Hx of left cataract extraction Social History household members: spouse Smoking Status: Never smoker ROS Constitutional Constitutional: Reports fatigue and weakness; Denies chills or fever(s) Eyes Eyes: Denies change in vision Cardiovascular Cardiovascular: Denies chest pain Respiratory/Chest Respiratory/Chest: Denies cough or shortness of breath at rest Gastrointestinal Gastrointestinal: Reports abdominal pain, diarrhea and nausea; Denies vomiting Musculoskeletal Musculoskeletal: Denies arthralgias or myalgias Vital Signs Vital Signs Vital Signs: 03/05/25 11:42 03/05/25 13:42 03/05/25 15:00 Temperature 98.1 F Temperature Source Oral Pulse Rate 81 81 71 Respiratory Rate 18 Blood Pressure 197/86 H 153/96 H 143/66 H Blood Pressure Mean 123 115 91 Pulse Ox 100 100 Oxygen Delivery Method Room Air Weight Weight: 137.2 kg Body Mass Index (BMI) 41.0 Physical Exam Const alert and oriented x3 Constitutional Narrative: Elderly male, class II obesity, fatigued appearing, mildly uncomfortable appearing due to ongoing abdominal pain with distention, answering questions with short appropriate responses. General Appearance: cooperative HEENT normocephalic, head/scalp atraumatic, hearing grossly normal bilaterally and nasal mucous membranes and turbinates normal HEENT Narrative: Dry mucous membranes. Eyes PERRL, EOMs intact bilaterally and conjunctivae normal Neck full ROM Chest inspection of chest normal Resp normal respiratory effort, normal air movement, no use of accessory muscles and clear to auscultation bilaterally Cardio regular rate, regular rhythm, no murmurs and peripheral pulses 2+ throughout GI GI Narrative: Abdomen diffusely distended and hard. No tenderness to palpation noted. Back/Spine normal ROM Extremity full ROM Extremity Narrative: Significant chronic venous stasis changes noted in bilateral lower legs. Psych mental status grossly normal Mood & Affect: anxious Results Lab / Micro Data 03/05/25 11:54 03/05/25 11:54 Labs: Laboratory Results - last 24 hr 03/05/25 11:54: WBC 7.6, RBC 3.97 L, Hgb 11.8 L, Hct 33.7 L, MCV 84.9, MCH 29.7, MCHC 35.0, RDW Std Deviation 42.6, RDW Coeff of Vaishnavi 13.7, Plt Count 192, MPV 9.2, Immature Gran % (Auto) 0.300, Neut % (Auto) 73.3 H, Lymph % (Auto) 15.9 L, [place] % (Auto) 7.0, Eos % (Auto) 3.2, Baso % (Auto) 0.3, Absolute Neuts (auto) 5.6, Absolute Lymphs (auto) 1.20, Nucleated RBC % 0, Sodium 120 L, Potassium 3.8, Chloride 89 L, Carbon Dioxide 17.6 L, Anion Gap 13, BUN 12, Creatinine 0.77, Estim Creat Clear Calc 121.52, Est GFR (MDRD) Non-Af 96, BUN/Creatinine Ratio 16.0, Glucose 123 H, Calcium 8.1, Total Bilirubin 0.38, AST 46 H, ALT 22, Alkaline Phosphatase 119, Total Protein 6.6, Albumin 3.8, Globulin 2.9, Albumin/Globulin Ratio 1.3, Lipase 40 03/05/25 12:05: Urine Color Straw, Urine Clarity Clear, Urine pH 7.0, Ur Specific [place] 1.005, Urine Protein Negative, Urine Glucose (UA) Normal, Urine Ketones Negative, Urine Occult Blood Negative, Urine Nitrite Negative, Urine Bilirubin Negative, Urine Urobilinogen Normal, Ur Leukocyte Esterase Negative, Urine RBC 0 SEEN, Urine WBC 0 SEEN, Ur Squamous Epith Cells 0 SEEN, Urine Bacteria 0 SEEN, Urine Mucus 0 SEEN 03/05/25 12:13: PT 26.4 H, INR 2.4 Imaging Radiology Impression Abdomen/Pelvis CT 03/05/25 11:51 IMPRESSION: Gallstone in the neck of the gallbladder. Venous collateral seen throughout the subcutaneous tissues as described. Increased markings in the peritoneal fat in the in the root of the mesentery. This is stable. Reading Location: [id number] Gallbladder Ultrasound 03/05/25 13:40 IMPRESSION: Solitary gallstone in the neck of the gallbladder. Hepatomegaly and fatty infiltration of the liver. Reading Location: [id number] Assessment & Plan Assessment/Plan (1) Abdominal pain: (2) Abdominal distension: PLAN: Plan Patient is a 69-year-old male who presented to [facility] ED on 03/05/2025 with persistent abdominal pain with diarrhea and weakness. 1. Persistent abdominal pain and distention with diarrhea ? Admit under observation status to [facility]. Recently hospitalized here and GI and surgery followed, see HPI for further details. Repeat CT abdomen pelvis on this admission stable from previous. 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 Abdomen remains hard and distended, and patient with poor p.o. intake with abdominal discomfort and diarrhea. Giving IV fluids as below. Unsure on how to adjust current management for patient, can consider GI consult for assistance with management. 2. Recurrent hyponatremia ? Sodium 120, chloride 89 on admit. Notably had hyponatremia with sodium 122 on recent admission on 02/27 that improved with IV fluid resuscitation. Sodium was 138 on day of discharge on 03/02. Urine sodium less than 20 and urine osmolality very low at 67, consistent with maximal retention of sodium by the kidneys. Suspect sodium drop is due to GI losses and poor p.o. intake primarily, unclear if secondary etiology is also possible. Given 1 L of normal saline in the ED, will give another liter of normal saline over several hours this evening. Follow-up a.m. BMP. 3. Acute debility ? PT/OT/case management consulted. Patient lives at home with his . Has had worsening debility recently due to ongoing medical issues as above. Appreciate therapy recommendations. Chronic medical conditions: ? Class II obesity: BMI 39 on admit. Complicates hospital course and care. ? History of seizure disorder: Continue home lacosamide, Lamictal, Keppra and zonisamide. ? History of DVT s/p IVC filter placement: INR therapeutic at 2.4 on admit. Continue home Coumadin. ? Hypothyroidism: Recent TSH normal on 02/28. Continue home Synthroid. ? GERD: Continue home PPI. DVT prophylaxis: Not indicated, on Coumadin CODE STATUS: Full code, verified Expected disposition: TBD Total clinical time spent by myself addressing the patient's medical issues, reviewing all the data, and collaborating with patient's care team: 75 minutes. Charges/Coding Visit Charges Inpatient E&M: 58607 Init Hosp L3
--- NOTE | 2025-03-05 18:44 | NURSING ---
@ [address], they do not have results, they said they will find specimens and run them right away
[2025-03-05 19:19] LABS: Osmolality, Urine 67 mOsm/KG
[2025-03-05] MEDS: 0.9% Normal Saline (1000mL) 1,000 ML 150 ML IV (22:56)
[2025-03-05] MEDS: ZONISAMIDE 100 MG CAPSULE PO (22:58)
[2025-03-06 05:23] VITALS: BP 122/57; PULSE 72; RESP 18; TEMP 36.6; O2SAT 95
[2025-03-06 06:16] LABS: Hematocrit 36.1 % (40-54); Hemoglobin 12.2 g/dL (13.0-16.5); Mean Corp Hgb Conc 33.8 g/dL (32-36); Mean Corpuscular Volume 86.0 fL (80-94); Mean Platelet Vol. 8.8 fl (6.2-12.0); Platelet Count 207 K/mm3 (150-450); RBC Distribution Width CV 14.1 % (11.6-14.6); RBC Distribution Width SD 44.5 fl (35.1-43.9); Red Blood Count 4.20 M/mm3 (4.6-6.2); White Blood Count 5.6 K/mm3 (4.4-11.0)
[2025-03-06 07:34] LABS: Anion Gap 12 (5-15); BUN 8 mg/dL (4-19); BUN/Creat Ratio 10.6 RATIO (10-20); Calcium,Total 8.9 mg/dL (7.6-11.0); Carbon Dioxide 20.9 mmol/L (21.0-32.0); Chloride 106 mmol/L (98-108); Estimated Creatinine Clearance 118.78 ml/min (50-250); Glucose 105 mg/dL (70-99); Potassium 3.2 mmol/L (3.3-5.1)
[2025-03-06 10:08] VITALS: BP 132/65; PULSE 78; RESP 18; TEMP 36.6; O2SAT 98
[2025-03-06] MEDS: Potassium Chloride Oral Soln 20 MEQ/15 ML UDC 10 MEQ PO (10:14)
[2025-03-06] MEDS: ZONISAMIDE 100 MG CAPSULE PO ×2 (10:15→22:46)
--- NOTE | 2025-03-06 12:33 | PN_ITS ---
Subjective Subjective Patient seen and examined with his nurse by his bedside. He still complains of abdominal pain. He is having bowel movements though he states he has not passed gas. He denies any nausea or vomiting. Review of systems otherwise negative. He has remained hemodynamically stable. Objective Data Objective Data Vital Signs: Vital Signs Temp Pulse Resp BP Pulse Ox O2 Del Method 97.9 F 78 18 132/65 H 98 Room Air 03/06/25 10:08 03/06/25 10:08 03/06/25 10:08 03/06/25 10:08 03/06/25 10:08 03/06/25 10:08 Oxygen Delivery Method Room Air Weight: 289 lb 14.4 oz Body Mass Index (BMI) 39.3 Intake & Output: Intake and Output for Last 24 Hours 03/04/25 03/05/25 03/06/25 23:59 23:59 23:59 Intake Total 1095 / 1095 120 / 120 Output Total 2850 / 2850 1900 / 1900 Balance -1755 / -1755 -1780 / -1780 Lab / Micro Data 03/06/25 05:31 03/06/25 05:31 Labs: Laboratory Results - last 24 hr 03/05/25 12:13: PT 26.4 H, INR 2.4 03/05/25 18:10: Urine Osmolality 67, Ur Random Sodium < 20 03/06/25 05:31: WBC 5.6, RBC 4.20 L, Hgb 12.2 L, Hct 36.1 L, MCV 86.0, MCH 29.0, MCHC 33.8, RDW Std Deviation 44.5 H, RDW Coeff of Vaishnavi 14.1, Plt Count 207, MPV 8.8, Sodium 139, Potassium 3.2 L, Chloride 106, Carbon Dioxide 20.9 L, Anion Gap 12, BUN 8, Creatinine 0.80, Estim Creat Clear Calc 118.78, Est GFR (MDRD) Non-Af 95, BUN/Creatinine Ratio 10.6, Glucose 105 H, Calcium 8.9 Radiography Diagnostic Testing: Radiology Impression Abdomen/Pelvis CT 03/05/25 11:51 IMPRESSION: Gallstone in the neck of the gallbladder. Venous collateral seen throughout the subcutaneous tissues as described. Increased markings in the peritoneal fat in the in the root of the mesentery. This is stable. Reading Location: [facility] Gallbladder Ultrasound 03/05/25 13:40 IMPRESSION: Solitary gallstone in the neck of the gallbladder. Hepatomegaly and fatty infiltration of the liver. Reading Location: [facility] Physical Exam Const alert, oriented x3 and no apparent distress Constitutional Narrative: class II obesity General Appearance: cooperative HEENT normocephalic, head/scalp atraumatic, moist oral mucous membranes and oropharynx normal Neck no lymphadenopathy and supple Lymph Lymphatic: no lymphadenopathy noted Resp normal respiratory effort, normal air movement and clear to auscultation bilaterally Cardio regular rate, regular rhythm, S1 normal heart sound, S2 normal heart sound and no murmurs GI GI Narrative: Very obese abdomen: Distended and tympanitic to percussion. Difficult to palpate for organomegaly due to abdominal distention. Nontender. Extremity normal capillary refill Skin Skin Narrative: Chronic venous stasis changes in lower extremities. Neuro CN's II-XII intact bilaterally, no focal motor deficits, no sensory deficits noted and deep tendon reflexes 2+ bilaterally Motor Exam: general weakness Psych thought process normal, cooperative and affect normal Appearance: appropriate Assessment & Plan Assessment/Plan (1) Abdominal distension: (2) Abdominal pain, acute, left lower quadrant: PLAN: Plan #Persistent abdominal pain and distention with diarrhea * Patient was just discharged a few days ago after he came in with similar complaints. During that time GI and general surgery were on board. There was concern for possible Ewelina syndrome then. He was started on a diet which he tolerated and was eating well at time of discharge. However he states he went home and his nausea and abdominal pain and distention started again and did not improve so he came into the ED. * Be hydrated with IV fluids. Currently NPO. Will consult gastroenterology. * CT abdomen and pelvis done showed gallstone in the neck of the bladder and venous collaterals seen throughout the subcutaneous tissues above as well as increased markings in the peritoneal fat in the root of the mesentery which is stable. * Gallbladder ultrasound showed solitary stone in the neck of the gallbladder with hepatomegaly and fatty infiltration of the liver. #Hyponatremia:resolved. Sodium is 139. Was 120 yesterday. It does seem to have rapidly corrected. Will monitor closely. #Hypokalemia: K is 3.2. Will replace and trend. #Debility and weakness: * PT/OT On board. Patient states he needs assistance at home as his is also sick and he is not able to do much for himself. * During his previous admission he was actually asking for Meals on Wheels. Seems like all these have been set up for him but he says nobody comes out to providing the services. * Case management on board. #History of seizure disorder: On lacosamide, Lamictal and Keppra as well as zonisamide #History of DVT status post IVC filter: On Coumadin. INR is therapeutic. #Hypothyroidism: On Synthroid #GERD: On PPI #Class II obesity: BMI is 39.3. Complicates acute care, expected recovery and prognosis. DVT prophylaxis: Not indicated as patient already on Coumadin. Charges/Coding Visit Charges Inpatient E&M: 13817 Subs Hosp L2
--- NOTE | 2025-03-06 14:10 | CASEMGMT ---
RN MARÍA NOTE: Intro role of CM to patient and [facility] form explained re: Observation status for treatment of weakness w/diarrhea and hyponatremia.? Explained hospitalization will be paid per his insurance policy for Outpatient billing?and condition will continue to be evaluated for Inpt necessity. Also let pt know that [facility] sends paper in the billing packet with their phone number if questions arise. Pt verbalizes understanding and does not have further questions. ?Form signed, copy made and placed in chart, and original given to pt. Roni STEWART RN CM
[2025-03-06 15:04] VITALS: BP 125/71; PULSE 73; RESP 18; TEMP 36.2; O2SAT 100
--- NOTE | 2025-03-06 16:42 | CASEMGMT ---
Social Work- SW met with pt to complete SDOH assessment. SW introduced self and role; pt agreeable to meet. Pt reports that recently had surgery and cannot drive or leave the home at this time. Pt reports that they have not had food in the home, so he has been drinking a lot of water. 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 Pt reports he has been in a period of declining health and is deathly sick. Pt ambulated 70' with therapy; pt reports both that he normally walks further and also that he has been too tired to walk at home for months. Pt reports no close family to assist. Pt reports that he is open to [facility] referral and resources as outlined in SDOH assessment. Pt reports interest in outpatient therapy. Pt reports that will be cleared to drive in two days. Pt interested in [facility] for therapy. [facility] completed OP script. Script on chart with green sheet. DUANE Chandra
--- NOTE | 2025-03-06 18:02 | EX.PCM.CON.G ---
HPI Consult Data Date of Consult: 03/06/25 HPI Narrative Reason for Consultation: Abdominal pain HPI Narrative: EDER VILLANUEVA, is a 69 y/o presented to the ED with worsening abdominal pain. He has a past medical history of obesity, WILBERTO, history of PE on Coumadin status post IVC filter, seizure disorder, anxiety and depression. He also has a history of large B-cell lymphoma and malignant melanoma. I saw him last month for complaints of history of lower cramping abdominal pain. At that time he was having diarrhea. At this time he is not having any diarrhea. After talking to him he still complains of a lot of bloating and cramping. He has been afebrile. His repeat CT scan does show possible mesenteric collateral varicosities. He does have a history of IVC filter. He has no history of portal hypertension or cirrhosis. [facility] Medical History Seizures Loss of one eye Wears glasses Cancer Thyroid disease Arthritis Prostate disease Bladder disease Low iron High cholesterol Diarrhea Gastric reflux Non-smoker History of pain when walking Heart murmur Localized swelling of both lower legs Abnormal biliary HIDA scan Anxiety and depression HTN (hypertension) History of DVT of lower extremity Seizure disorder Home Medications ?Medication ?Instructions ?Recorded ?Last Taken ?Type lamotrigine 200 mg tablet 200 mg PO BID SEIZURES 03/12/14 03/21/24 History (Lamictal) lacosamide 200 mg tablet 200 mg PO BID SEIZURES 09/17/19 03/04/25 History zonisamide 100 mg capsule 100 mg PO BID SEIZURES 09/17/19 03/20/24 History warfarin 7.5 mg tablet 7.5 mg PO DAILY BLOOD THINNER 09/12/21 03/16/24 History levetiracetam 750 mg tablet 1,500 mg PO BID SEIZURES 03/11/24 03/21/24 History levothyroxine 88 mcg tablet 88 mcg PO DAILY THYROID 03/11/24 03/21/24 History furosemide 40 mg tablet 20 mg PO DAILY water pill 03/19/24 Unknown History ibuprofen 600 mg tablet 600 mg PO Q6H PRN fever or pain 03/21/24 03/04/25 Rx #20 tabs potassium chloride 20 mEq/15 mL 10 meq PO DAILY supplement 02/27/25 Unknown History oral liquid tamsulosin 0.4 mg capsule 0.4 mg PO QHS prostate 02/27/25 Unknown History Allergy/AdvReac Type Severity Reaction Status Date / Time No Known Allergies Allergy Verified 03/05/25 11:42 Surgical History Hx of colonoscopy History of vascular access device Hx of vascular surgery Hx of left cataract extraction Social History household members: spouse Smoking Status: Never smoker ROS Constitutional Constitutional: Denies fatigue, fever(s), poor appetite, weight gain or weight loss Gastrointestinal Gastrointestinal: Denies belching, bloating, change in bowel habits, change in stool character, chewing difficulty, coffee ground emesis, constipation, cramping, diarrhea, dyspepsia, dysphagia, early satiety, excessive flatus, fecal incontinence, heartburn, hematemesis, hematochezia, hemorrhoids, loose stools, melena, nausea, odynophagia, rectal bleeding, tenesmus, vomiting or weight changes Physical Exam Const alert, oriented x3, no apparent distress and healthy appearing General Appearance: cooperative GI normal to inspection, nondistended, normoactive bowel sounds, soft to palpation, non-tender and non-distended Percussion: normal to percussion Rectal Exam: deferred Lab / Micro Data 03/06/25 05:31 03/06/25 05:31 Labs: Laboratory Results - last 24 hr 03/05/25 18:10: Urine Osmolality 67, Ur Random Sodium < 20 03/06/25 05:31: WBC 5.6, RBC 4.20 L, Hgb 12.2 L, Hct 36.1 L, MCV 86.0, MCH 29.0, MCHC 33.8, RDW Std Deviation 44.5 H, RDW Coeff of Vaishnavi 14.1, Plt Count 207, MPV 8.8, Sodium 139, Potassium 3.2 L, Chloride 106, Carbon Dioxide 20.9 L, Anion Gap 12, BUN 8, Creatinine 0.80, Estim Creat Clear Calc 118.78, Est GFR (MDRD) Non-Af 95, BUN/Creatinine Ratio 10.6, Glucose 105 H, Calcium 8.9 Assessment & Plan Assessment/Plan (1) Abdominal distension: (2) Abdominal pain: PLAN: 69-year-old patient presents with primary complaint of gas and bloating, which has been ongoing for several months. He reports generalized abdominal discomfort and distention, feeling full easily after eating small amounts. He does not have a known history of cirrhotic or non-cirrhotic portal hypertension. He denies history of cirrhosis or other chronic liver diseases such as viral hepatitis, biliary cirrhosis, steatohepatitis, or autoimmune hepatitis. , Differential diagnoses for gas/bloat in this setting include: Irritable Bowel Syndrome (IBS):?May present with gas and bloating. Gastroparesis, although less likely to be the primary cause of these symptoms in the setting of portal hypertension. Small Intestinal Bacterial Overgrowth (SIBO):?Can cause bloating and gas. Dietary Factors:?Certain foods can exacerbate gas and bloating. Further evaluation needed to confirm the cause of the gas and bloating. Such as EGD with biopsies, stool for pancreatic elastase, autoantibodies for celiac disease, gastric emptying study If workup is negative then I would recommend vascular consultation due to CT abnormalities of multiple portal collateral mesenteric veins Charges/Coding Visit Charges Inpatient E&M: 95973 Init Hosp L3
[2025-03-06 22:41] VITALS: BP 149/87; PULSE 75; RESP 16; TEMP 37; O2SAT 98
[2025-03-07 04:30] VITALS: BP 135/72; PULSE 72; RESP 18; TEMP 37.1; O2SAT 95
[2025-03-07 07:23] LABS: Hematocrit 36.1 % (40-54); Hemoglobin 11.7 g/dL (13.0-16.5); Immature Granulocytes Count 0.020 X10^3/uL (0.0-0.0); Mean Corp Hgb Conc 32.4 g/dL (32-36); Mean Corpuscular Volume 89.6 fL (80-94); Mean Platelet Vol. 9.3 fl (6.2-12.0); NRBC Flagged by Analyzer 0 % (0-5); Platelet Count 197 K/mm3 (150-450); RBC Distribution Width CV 14.6 % (11.6-14.6); RBC Distribution Width SD 47.8 fl (35.1-43.9); Red Blood Count 4.03 M/mm3 (4.6-6.2); White Blood Count 5.5 K/mm3 (4.4-11.0)
[2025-03-07 08:08] LABS: AST(SGOT) 21 U/L (<=37); Alanine Aminotransfer ALT/SGPT 16 U/L (<=46); Albumin, Serum 4.0 g/dL (3.4-4.8); Alkaline Phosphatase 119 U/L (40-129); Anion Gap 13 (5-15); BUN 10 mg/dL (4-19); BUN/Creat Ratio 11.3 RATIO (10-20); Calcium,Total 8.8 mg/dL (7.6-11.0); Carbon Dioxide 19.7 mmol/L (21.0-32.0); Chloride 110 mmol/L (98-108); Estimated Creatinine Clearance 105.59 ml/min (50-250); Globulin 2.4 g/dL (2.2-4.2); Glucose 91 mg/dL (70-99); Potassium 3.4 mmol/L (3.3-5.1)
[2025-03-07 08:55] VITALS: BP 117/79; PULSE 75; RESP 18; TEMP 36.8; O2SAT 100
[2025-03-07] MEDS: ZONISAMIDE 100 MG CAPSULE PO ×2 (09:04→20:11)
--- NOTE | 2025-03-07 10:55 | CASEMGMT ---
Social Work SW called pt's , as RN states pt stating has no food at home. SW completed SDOH already yesterday. states she has food at home but he does not. She states they eat at different times so they buy groceries separately. She will be cleared after having knee surgery, to drive by Sunday most likely. She states can take pt to the store, and if he were to get d/c over the weekend would share her food w/him. SW spoke w/pt, let him know spoke w/his and she states will be able to take him shopping Sunday if she is cleared to drive. Pt states understanding. Pt asked if SW can come to pt's home to see he and his , to speak w/them at the same time, SW educated pt that SW works in the hospital, does not do home visits. He then asked about meeting here in the hospital, SW explained will let the SW Sunday know he would like to do this. We also talked about the possibility of a referral to HHC w/SW, pt may be open to this. SW will continue to follow, will speak w/pt and should she come in on Sunday, and make HHC referral if appropriate. SW will likely need to make a referral to [facility] as it is one of the only HHC agencies w/[facility]. Therefore, a HHC list will not be provided. ADDIE Thompson
--- NOTE | 2025-03-07 10:58 | PN_ITS ---
Subjective Subjective Patient seen and examined. He still complained of abdominal distension and abdominal pain. He is still having diarrhea. Review of systems is otherwise negative. Objective Data Objective Data Vital Signs: Vital Signs Temp Pulse Resp BP Pulse Ox O2 Del Method 98.3 F 75 18 117/79 100 Room Air 03/07/25 08:55 03/07/25 08:55 03/07/25 08:55 03/07/25 08:55 03/07/25 08:55 03/07/25 08:55 Oxygen Delivery Method Room Air Weight: 289 lb 14.4 oz Body Mass Index (BMI) 39.3 Intake & Output: Intake and Output for Last 24 Hours 03/05/25 03/06/25 03/07/25 23:59 23:59 23:59 Intake Total 1095 / 1095 240 / 240 Output Total 2850 / 2850 2100 / 2600 500 / 500 Balance -1755 / -1755 -1860 / -2360 -500 / -500 Lab / Micro Data 03/07/25 06:14 03/07/25 06:14 Labs: Laboratory Results - last 24 hr 03/07/25 06:14: WBC 5.5, RBC 4.03 L, Hgb 11.7 L, Hct 36.1 L, MCV 89.6, MCH 29.0, MCHC 32.4, RDW Std Deviation 47.8 H, RDW Coeff of Vaishnavi 14.6, Plt Count 197, MPV 9.3, Immature Gran % (Auto) 0.400, Neut % (Auto) 58.5, Lymph % (Auto) 26.8, [place] % (Auto) 9.0, Eos % (Auto) 4.6, Baso % (Auto) 0.7, Absolute Neuts (auto) 3.2, Absolute Lymphs (auto) 1.46, Nucleated RBC % 0, Sodium 142, Potassium 3.4, C hloride 110 H, Carbon Dioxide 19.7 L, Anion Gap 13, BUN 10, Creatinine 0.90, Estim Creat Clear Calc 105.59, Est GFR (MDRD) Non-Af 91, BUN/Creatinine Ratio 11.3, Glucose 91, Calcium 8.8, Total Bilirubin 0.42, AST 21, ALT 16, Alkaline Phosphatase 119, Total Protein 6.4, Albumin 4.0, Globulin 2.4, Albumin/Globulin Ratio 1.6 Physical Exam Const alert, oriented x3 and no apparent distress Constitutional Narrative: class II obesity General Appearance: cooperative HEENT normocephalic, head/scalp atraumatic, hearing grossly normal bilaterally, nasal mucous membranes and turbinates normal, moist oral mucous membranes and oropharynx normal Eyes PERRL, EOMs intact bilaterally and conjunctivae normal Neck full ROM, no lymphadenopathy and supple Lymph Lymphatic: no lymphadenopathy noted Chest inspection of chest normal Resp normal respiratory effort, normal air movement, no use of accessory muscles and clear to auscultation bilaterally Cardio regular rate, regular rhythm, S1 normal heart sound, S2 normal heart sound, no murmurs and peripheral pulses 2+ throughout GI GI Narrative: Very obese abdomen: Distended and tympanitic to percussion. Difficult to palpate for organomegaly due to abdominal distention. Nontender. Back/Spine normal ROM Extremity full ROM Extremity Narrative: Significant chronic venous stasis changes noted in bilateral lower legs. Skin Skin Narrative: Chronic venous stasis changes in lower extremities. Neuro CN's II-XII intact bilaterally, no focal motor deficits, no sensory deficits noted and deep tendon reflexes 2+ bilaterally Motor Exam: general weakness Psych mental status grossly normal, thought process normal, cooperative and affect normal Appearance: appropriate Mood & Affect: anxious Assessment & Plan Assessment/Plan (1) Abdominal distension: (2) Abdominal pain, acute, left lower quadrant: PLAN: Plan #Persistent abdominal pain and distention with diarrhea * Patient was just discharged a few days ago after he came in with similar complaints. During that time GI and general surgery were on board. There was concern for possible [place] syndrome then. He was started on a diet which he tolerated and was eating well at time of discharge. However he states he went home and his nausea and abdominal pain and distention started again and did not improve so he came into the ED. * Be hydrated with IV fluids. Currently NPO. Will consult gastroenterology. * CT abdomen and pelvis done showed gallstone in the neck of the bladder and venous collaterals seen throughout the subcutaneous tissues above as well as increased markings in the peritoneal fat in the root of the mesentery which is stable. * Gallbladder ultrasound showed solitary stone in the neck of the gallbladder with hepatomegaly and fatty infiltration of the liver. * GI consulted. Per GI documentation, to have EDG, unclear when it will be done. #Hyponatremia:resolved. Sodium is 142 today. #Hypokalemia: K is 3.4. Will replace and trend. #Debility and weakness: * PT/OT On board. Patient states he needs assistance at home as his is also sick and he is not able to do much for himself. * During his previous admission he was actually asking for Meals on Wheels. Seems like all these have been set up for him but he says nobody comes out to providing the services. * Case management on board. #History of seizure disorder: On lacosamide, Lamictal and Keppra as well as zonisamide #History of DVT status post IVC filter: On Coumadin. INR is therapeutic. #Hypothyroidism: On Synthroid #GERD: On PPI #Class II obesity: BMI is 39.3. Complicates acute care, expected recovery and prognosis. DVT prophylaxis: Not indicated as patient already on Coumadin. INr is pending today Charges/Coding Visit Charges Inpatient E&M: 49796 Subs Hosp L2
[2025-03-07] MEDS: Potassium Chloride Oral Soln 20 MEQ/15 ML UDC 10 MEQ PO (11:42)
[2025-03-07 11:50] VITALS: O2SAT 97
[2025-03-07 11:52] LABS: Prothrombin Time (Protime)PT. 30.4 SECONDS (11.7-14.9)
[2025-03-07 15:08] VITALS: BP 129/74; PULSE 69; RESP 17; TEMP 36.7; O2SAT 100
[2025-03-07 20:02] VITALS: BP 141/66; PULSE 76; RESP 17; TEMP 36.8; O2SAT 100
--- NOTE | 2025-03-07 21:55 | PN_ITS ---
Progress Note Patient still complains of abdominal pain and abdominal distention. Physical Exam Const alert, oriented x3 and no apparent distress Constitutional Narrative: class II obesity General Appearance: cooperative HEENT normocephalic, head/scalp atraumatic, hearing grossly normal bilaterally, nasal mucous membranes and turbinates normal, moist oral mucous membranes and oropharynx normal Eyes PERRL, EOMs intact bilaterally and conjunctivae normal Neck full ROM, no lymphadenopathy and supple Lymph Lymphatic: no lymphadenopathy noted Chest inspection of chest normal Resp normal respiratory effort, normal air movement, no use of accessory muscles and clear to auscultation bilaterally Cardio regular rate, regular rhythm, S1 normal heart sound, S2 normal heart sound, no murmurs and peripheral pulses 2+ throughout GI GI Narrative: Very obese abdomen: Distended and tympanitic to percussion. Difficult to palpate for organomegaly due to abdominal distention. Nontender. Back/Spine normal ROM Extremity full ROM Extremity Narrative: Significant chronic venous stasis changes noted in bilateral lower legs. Skin Skin Narrative: Chronic venous stasis changes in lower extremities. Neuro CN's II-XII intact bilaterally, no focal motor deficits, no sensory deficits noted and deep tendon reflexes 2+ bilaterally Motor Exam: general weakness Psych mental status grossly normal, thought process normal, cooperative and affect normal Appearance: appropriate Mood & Affect: anxious Assessment & Plan Assessment/Plan (1) Abdominal distension: (2) Abdominal pain: PLAN: 69-year-old patient presents with primary complaint of gas and bloating, which has been ongoing for several months. He reports generalized abdominal discomfort and distention, feeling full easily after eating small amounts. He does not have a known history of cirrhotic or non-cirrhotic portal hypertension. He denies history of cirrhosis or other chronic liver diseases such as viral hepatitis, biliary cirrhosis, steatohepatitis, or autoimmune hepatitis. , * Differential diagnoses for gas/bloat in this setting include: * Irritable Bowel Syndrome (IBS):?May present with gas and bloating. * Gastroparesis, although less likely to be the primary cause of these symptoms in the setting of portal hypertension. * Small Intestinal Bacterial Overgrowth (SIBO):?Can cause bloating and gas. * Dietary Factors:?Certain foods can exacerbate gas and bloating. * Further evaluation needed to confirm the cause of the gas and bloating. * Such as EGD with biopsies, stool for pancreatic elastase, autoantibodies for celiac disease, gastric emptying study * If workup is negative then I would recommend vascular consultation due to CT abnormalities of multiple portal collateral mesenteric veins PLAN: Plan 03/07/2025-patient has been on the full liquid diet. I will check biochemical labs and he will prep for an EGD and colonoscopy on 03/09/2025. Visit Charges Inpatient E&M: 76901 Subs Hosp L3
[2025-03-07 23:00] LABS: CRP 10.40 mg/L (0.0-3.0)
[2025-03-08 03:01] VITALS: BP 118/68; PULSE 86; RESP 16; TEMP 36.9; O2SAT 96
[2025-03-08 05:23] LABS: Hematocrit 36.0 % (40-54); Hemoglobin 11.8 g/dL (13.0-16.5); Immature Granulocytes Count 0.020 X10^3/uL (0.0-0.0); Mean Corp Hgb Conc 32.8 g/dL (32-36); Mean Corpuscular Volume 89.3 fL (80-94); Mean Platelet Vol. 8.6 fl (6.2-12.0); NRBC Flagged by Analyzer 0 % (0-5); Platelet Count 201 K/mm3 (150-450); RBC Distribution Width CV 14.7 % (11.6-14.6); RBC Distribution Width SD 47.9 fl (35.1-43.9); Red Blood Count 4.03 M/mm3 (4.6-6.2); White Blood Count 6.3 K/mm3 (4.4-11.0)
[2025-03-08 05:48] LABS: AST(SGOT) 21 U/L (<=37); Alanine Aminotransfer ALT/SGPT 18 U/L (<=46); Albumin, Serum 4.1 g/dL (3.4-4.8); Alkaline Phosphatase 124 U/L (40-129); Anion Gap 11 (5-15); BUN 11 mg/dL (4-19); BUN/Creat Ratio 11.8 RATIO (10-20); Calcium,Total 8.9 mg/dL (7.6-11.0); Carbon Dioxide 22.5 mmol/L (21.0-32.0); Chloride 107 mmol/L (98-108); Estimated Creatinine Clearance 98.99 ml/min (50-250); Globulin 2.4 g/dL (2.2-4.2); Glucose 97 mg/dL (70-99); Potassium 3.3 mmol/L (3.3-5.1)
[2025-03-08 08:50] LABS: Prothrombin Time (Protime)PT. 36.7 SECONDS (11.7-14.9)
[2025-03-08 09:14] VITALS: BP 133/77; PULSE 81; RESP 16; TEMP 36.4; O2SAT 97
[2025-03-08] MEDS: 0.9% Saline Lock 10 ML Syringe IV ×2 (09:19→09:33)
[2025-03-08] MEDS: Potassium Chloride Oral Soln 20 MEQ/15 ML UDC 10 MEQ PO (09:36)
[2025-03-08] MEDS: ZONISAMIDE 100 MG CAPSULE PO ×2 (09:37→21:49)
--- NOTE | 2025-03-08 09:51 | PCM.PROGNOTE ---
Subjective Subjective Patient seen and examined. He still complains of abdominal pain and abdominal distention. He still had diarrhea overnight. Review of systems otherwise negative. He is due for EGD and colonoscopy tomorrow. Objective Data Objective Data Vital Signs: Vital Signs Temp Pulse Resp BP Pulse Ox O2 Del Method 97.5 F L 81 16 133/77 H 97 Room Air 03/08/25 09:14 03/08/25 09:14 03/08/25 09:14 03/08/25 09:14 03/08/25 09:14 03/08/25 09:14 Oxygen Delivery Method Room Air Weight: 289 lb 14.4 oz Body Mass Index (BMI) 39.3 Intake & Output: Intake and Output for Last 24 Hours 03/06/25 03/07/25 03/08/25 23:59 23:59 23:59 Intake Total 240 / 240 400 / 400 Output Total 2100 / 2600 650 / 650 450 / 450 Balance -1860 / -2360 -650 / -650 -50 / -50 Lab / Micro Data 03/08/25 04:53 03/08/25 04:53 Labs: Laboratory Results - last 24 hr 03/07/25 06:14: ESR 18, C-React Prot Ext Range 10.40 H 03/07/25 11:30: PT 30.4 H, INR 2.8 03/08/25 04:53: WBC 6.3, RBC 4.03 L, Hgb 11.8 L, Hct 36.0 L, MCV 89.3, MCH 29.3, MCHC 32.8, RDW Std Deviation 47.9 H, RDW Coeff of Vaishnavi 14.7 H, Plt Count 201, MPV 8.6, Immature Gran % (Auto) 0.300, Neut % (Auto) 66.8, Lymph % (Auto) 21.2, [place] % (Auto) 7.2, Eos % (Auto) 4.0, Baso % (Auto) 0.5, Absolute Neuts (auto) 4.2, Absolute Lymphs (auto) 1.33, Nucleated RBC % 0, Sodium 141, Potassium 3.3, Chloride 107, Carbon Dioxide 22.5, Anion Gap 11, BUN 11, Creatinine 0.96, Estim Creat Clear Calc 98.99, Est GFR (MDRD) Non-Af 85, BUN/Creatinine Ratio 11.8, Glucose 97, Calcium 8.9, Total Bilirubin 0.41, AST 21, ALT 18, Alkaline Phosphatase 124, Total Protein 6.5, Albumin 4.1, Globulin 2.4, Albumin/Globulin Ratio 1.7, KIMMIE-1 Antibody TNP, Sm (Frances) Antibody TNP, POLE TESTER Antibody TNP, Scl-70 Scleroderma Ab TNP, Antichromatin Antibodies TNP, Centromere B Antibody TNP 03/08/25 07:59: PT 36.7 H, INR 3.6 Physical Exam Const alert, oriented x3 and no apparent distress Constitutional Narrative: class II obesity General Appearance: cooperative HEENT normocephalic, head/scalp atraumatic, hearing grossly normal bilaterally, nasal mucous membranes and turbinates normal, moist oral mucous membranes and oropharynx normal Eyes PERRL, EOMs intact bilaterally and conjunctivae normal Neck full ROM, no lymphadenopathy and supple Lymph Lymphatic: no lymphadenopathy noted Chest inspection of chest normal Resp normal respiratory effort, normal air movement, no use of accessory muscles and clear to auscultation bilaterally Cardio regular rate, regular rhythm, S1 normal heart sound, S2 normal heart sound, no murmurs and peripheral pulses 2+ throughout GI GI Narrative: Very obese abdomen: Distended and tympanitic to percussion. Difficult to palpate for organomegaly due to abdominal distention. Mild generalised tenderness, no guarding or rebound tenderness. Back/Spine normal ROM Extremity full ROM and normal capillary refill Extremity Narrative: Significant chronic venous stasis changes noted in bilateral lower legs. Skin Skin Narrative: Chronic venous stasis changes in lower extremities. Neuro CN's II-XII intact bilaterally, no focal motor deficits, no sensory deficits noted and deep tendon reflexes 2+ bilaterally Motor Exam: general weakness Psych mental status grossly normal, thought process normal, cooperative and affect normal Appearance: appropriate Assessment & Plan Assessment/Plan (1) Abdominal distension: (2) Abdominal pain, acute, left lower quadrant: PLAN: Plan #Persistent abdominal pain and distention with diarrhea Patient was just discharged a few days ago after he came in with similar complaints. During that time GI and general surgery were on board. There was concern for possible [place] syndrome then. He was started on a diet which he tolerated and was eating well at time of discharge. However he states he went home and his nausea and abdominal pain and distention started again and did not improve so he came into the ED. Be hydrated with IV fluids. Currently NPO. Will consult gastroenterology. CT abdomen and pelvis done showed gallstone in the neck of the bladder and venous collaterals seen throughout the subcutaneous tissues above as well as increased markings in the peritoneal fat in the root of the mesentery which is stable. Gallbladder ultrasound showed solitary stone in the neck of the gallbladder with hepatomegaly and fatty infiltration of the liver. GI on board; for EGD and colonoscopy tomorrow #Hyponatremia:resolved. #Hypokalemia: K is 3.3 today. Stable. #Debility and weakness: PT/OT On board. Patient states he needs assistance at home as his is also sick and he is not able to do much for himself. During his previous admission he was actually asking for Meals on Wheels. Seems like all these have been set up for him but he says nobody comes out to providing the services. Case management on board. #History of seizure disorder: On lacosamide, Lamictal and Keppra as well as zonisamide #History of DVT status post IVC filter: On Coumadin. INR is 3.6 today. Will hold coumadin dose today #Hypothyroidism: On Synthroid #GERD: On PPI #Class II obesity: BMI is 39.3. Complicates acute care, expected recovery and prognosis. DVT prophylaxis: Not indicated as patient already on Coumadin. INr is 3.6 today. Sarthak hold coumadin today Charges/Coding Visit Charges Inpatient E&M: 49867 Subs Hosp L2
[2025-03-08 14:19] VITALS: BP 116/66; PULSE 80; RESP 16; TEMP 36.3; O2SAT 98
[2025-03-08] MEDS: Polyethylene Glycol 3350 BOWEL PREP PO (16:08)
[2025-03-08 21:50] VITALS: BP 123/69; PULSE 80; RESP 16; TEMP 36.6; O2SAT 97
[2025-03-09 06:01] VITALS: BP 118/64; PULSE 76; RESP 16; TEMP 36.6; O2SAT 97
[2025-03-09 06:20] LABS: Hematocrit 36.1 % (40-54); Hemoglobin 11.7 g/dL (13.0-16.5); Immature Granulocytes Count 0.020 X10^3/uL (0.0-0.0); Mean Corp Hgb Conc 32.4 g/dL (32-36); Mean Corpuscular Volume 89.4 fL (80-94); Mean Platelet Vol. 8.6 fl (6.2-12.0); NRBC Flagged by Analyzer 0 % (0-5); Platelet Count 174 K/mm3 (150-450); RBC Distribution Width CV 14.6 % (11.6-14.6); RBC Distribution Width SD 47.8 fl (35.1-43.9); Red Blood Count 4.04 M/mm3 (4.6-6.2); White Blood Count 6.3 K/mm3 (4.4-11.0)
[2025-03-09 06:35] LABS: Partial Thromboplast Time 34.0 Seconds (24.1-36.2); Prothrombin Time (Protime)PT. 35.1 SECONDS (11.7-14.9)
[2025-03-09 06:41] LABS: AST(SGOT) 20 U/L (<=37); Alanine Aminotransfer ALT/SGPT 16 U/L (<=46); Albumin, Serum 4.0 g/dL (3.4-4.8); Alkaline Phosphatase 127 U/L (40-129); Anion Gap 13 (5-15); BUN 11 mg/dL (4-19); BUN/Creat Ratio 10.1 RATIO (10-20); Calcium,Total 8.7 mg/dL (7.6-11.0); Carbon Dioxide 20.2 mmol/L (21.0-32.0); Chloride 106 mmol/L (98-108); Estimated Creatinine Clearance 90.50 ml/min (50-250); Globulin 2.3 g/dL (2.2-4.2); Glucose 106 mg/dL (70-99); Potassium 3.2 mmol/L (3.3-5.1)
[2025-03-09 07:48] VITALS: BP 110/60; PULSE 81; RESP 16; TEMP 36.7; O2SAT 96
[2025-03-09] MEDS: ZONISAMIDE 100 MG CAPSULE PO ×2 (08:01→20:54)
[2025-03-09] MEDS: Potassium Chloride Oral Soln 20 MEQ/15 ML UDC 10 MEQ PO (08:03)
[2025-03-09 08:43] VITALS: BMI 39.3
[2025-03-09 09:12] LABS: Magnesium 2.1 mg/dL (1.5-2.2)
[2025-03-09] MEDS: Potassium Chloride 10mEq/100mL 10 MEQ/100 ML IV.SOLN. 100 MEQ IV BOLUS ×3 (10:04→13:53)
--- NOTE | 2025-03-09 10:53 | PCM.PN.HOSP ---
Reason for Visit Chief Complaint: Persistent abdominal pain with diarrhea and weakness Subjective Subjective Saw patient at bedside this morning. Patient was sitting back comfortably in bedside chair, conversing normally, in no acute distress. Completed bowel prep last night and was having clear liquid stools this morning. Denies any abdominal pain currently. No other acute concerns at this time. Objective Data Objective Data Vital Signs: Vital Signs Temp Pulse Resp BP Pulse Ox O2 Del Method 98.1 F 81 16 110/60 96 Room Air 03/09/25 07:48 03/09/25 07:48 03/09/25 07:48 03/09/25 07:48 03/09/25 07:48 03/09/25 08:28 Oxygen Delivery Method Room Air Weight: 131.496 kg Body Mass Index (BMI) 39.3 Intake & Output: Intake and Output for Last 24 Hours 03/07/25 03/08/25 03/09/25 23:59 23:59 23:59 Intake Total 2174 / 2174 Output Total 650 / 650 450 / 450 Balance -650 / -650 1724 / 1724 Lab / Micro Data 03/09/25 05:48 03/09/25 05:48 Labs: Laboratory Results - last 24 hr 03/09/25 05:48: WBC 6.3, RBC 4.04 L, Hgb 11.7 L, Hct 36.1 L, MCV 89.4, MCH 29.0, MCHC 32.4, RDW Std Deviation 47.8 H, RDW Coeff of Vaishnavi 14.6, Plt Count 174, MPV 8.6, Immature Gran % (Auto) 0.300, Neut % (Auto) 64.4, Lymph % (Auto) 23.8, [place] % (Auto) 6.7, Eos % (Auto) 4.3, Baso % (Auto) 0.5, Absolute Neuts (auto) 4.0, Absolute Lymphs (auto) 1.49, Nucleated RBC % 0, PT 35.1 H, INR 3.4, APTT 34.0, Sodium 139, Potassium 3.2 L, Chloride 106, Carbon Dioxide 20.2 L, Anion Gap 13, BUN 11, Creatinine 1.05, Estim Creat Clear Calc 90.50, Est GFR (MDRD) Non-Af 76, BUN/Creatinine Ratio 10.1, Glucose 106 H, Calcium 8.7, Phosphorus 3.5, Magnesium 2.1, Total Bilirubin 0.40, AST 20, ALT 16, Alkaline Phosphatase 127, Total Protein 6.4, Albumin 4.0, Globulin 2.3, Albumin/Globulin Ratio 1.7 Micro: Microbiology 03/08/25 13:10 Stool Stool Lactoferrin - Final 03/08/25 13:10 Stool Enteric Bacteriology - Final Physical Exam Const alert and oriented x3 Constitutional Narrative: Elderly male, class II obesity, good energy level today, sitting back comfortably in bedside chair, conversing normally, in no acute distress. General Appearance: cooperative HEENT normocephalic, head/scalp atraumatic, hearing grossly normal bilaterally, nasal mucous membranes and turbinates normal and moist oral mucous membranes Eyes PERRL, EOMs intact bilaterally and conjunctivae normal Neck full ROM Chest inspection of chest normal Resp normal respiratory effort, normal air movement, no use of accessory muscles and clear to auscultation bilaterally Cardio regular rate, regular rhythm, no murmurs and peripheral pulses 2+ throughout GI GI Narrative: Abdomen mildly distended but soft and nontender to palpation. Back/Spine normal ROM Extremity full ROM Extremity Narrative: Chronic venous stasis changes noted in bilateral lower legs. Psych mental status grossly normal Assessment & Plan Assessment/Plan (1) Abdominal pain: (2) Abdominal distension: PLAN: Plan Patient is a 69-year-old male who presented to [facility] ED on 03/05/2025 with persistent abdominal pain with diarrhea and weakness. 1. Persistent abdominal pain with distention and diarrhea ? GI following. Recent hospitalization here, GI and general surgery follow-up. 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 Repeat CT abdomen pelvis on this admission moderate amount of fecal material throughout the colon, venous collateral vessels seen through the subcu tissues, gallstone in neck of the gallbladder, no other concerning findings. Gallbladder ultrasound showed solitary stone in neck of gallbladder with hepatomegaly and fatty infiltration of liver. No LFT elevation noted, no concern for acute cystitis. CT abdomen pelvis notably is stable from previous. Plan is for EGD and colonoscopy today, we will follow-up results. Appreciate further GI recommendations. 2. Hyponatremia, resolved ? Sodium 120 on admit. Improved back to normal range with IV fluid resuscitation. 3. Hypokalemia ? Potassium 3.3 on 03/08. Repleting as needed. 4. Mild acute on chronic debility ? PT/OT/case management following. Patient lives at home with his , has had some difficulty caring for himself with his recent medical issues. Has had fairly good therapy scores while inpatient, planning for outpatient therapy on discharge. Chronic medical conditions: ? Class II obesity: BMI 39 on admit. Complicates hospital course and care. ? History of seizure disorder: Continue home lacosamide, Lamictal, Keppra and zonisamide. ? History of DVT s/p IVC filter placement: INR therapeutic at 2.4 on admit. Continue home Coumadin. ? Hypothyroidism: Recent TSH normal on 02/28. Continue home Synthroid. ? GERD: Continue home PPI. DVT prophylaxis: Not indicated, on Coumadin CODE STATUS: Full code, verified Expected disposition: Home, TBD Total clinical time spent by myself addressing the patient's medical issues, reviewing all the data, and collaborating with patient's care team: 35 minutes. Charges/Coding Visit Charges Inpatient E&M: 76989 Subs Hosp L2
--- NOTE | 2025-03-09 11:19 | CASEMGMT ---
Social Work- SW met with pt to clarify discharge plans. Pt reports that he still prefers OP therapy at d/c. PT declines any other needs at this time. DUANE Chandra
[2025-03-09] MEDS: Potassium Chloride 10mEq/100mL 10 MEQ/100 ML IV.SOLN. 50 MEQ IV BOLUS (15:42)
[2025-03-09 15:46] VITALS: BP 132/77; PULSE 71; RESP 18; TEMP 36.4; O2SAT 96
--- NOTE | 2025-03-09 19:00 | PN_ITS ---
Progress Note Patient was not able to have a EGD colonoscopy today. Physical Exam Const alert, oriented x3, no apparent distress and healthy appearing General Appearance: cooperative GI normal to inspection, nondistended, normoactive bowel sounds, soft to palpation, non-tender and non-distended Percussion: normal to percussion Rectal Exam: deferred Assessment & Plan Assessment/Plan (1) Abdominal distension: (2) Abdominal pain: PLAN: 69-year-old patient presents with primary complaint of gas and bloating, which has been ongoing for several months. He reports generalized abdominal discomfort and distention, feeling full easily after eating small amounts. He does not have a known history of cirrhotic or non-cirrhotic por dennise hypertension. He denies history of cirrhosis or other chronic liver diseases such as viral hepatitis, biliary cirrhosis, steatohepatitis, or autoimmune hepatitis. , * Differential diagnoses for gas/bloat in this setting include: * Irritable Bowel Syndrome (IBS):?May present with gas and bloating. * Gastroparesis, although less likely to be the primary cause of these symptoms in the setting of portal hypertension. * Small Intestinal Bacterial Overgrowth (SIBO):?Can cause bloating and gas. * Dietary Factors:?Certain foods can exacerbate gas and bloating. * Further evaluation needed to confirm the cause of the gas and bloating. * Such as EGD with biopsies, stool for pancreatic elastase, autoantibodies for celiac disease, gastric emptying study * If workup is negative then I would recommend vascular consultation due to CT abnormalities of multiple portal collateral mesenteric veins PLAN: Plan 03/07/2025-patient has been on the full liquid diet. I will check biochemical labs and he will prep for an EGD and colonoscopy on 03/09/2025. 03/09/2025-patient can have clear liquid diet tonight. N.p.o. at midnight for EGD and colonoscopy tomorrow. Visit Charges Inpatient E&M: 24297 Subs Hosp L3
[2025-03-09 21:00] VITALS: BP 142/99; PULSE 75; RESP 16; TEMP 36.8; O2SAT 95
[2025-03-10] VITALS (12 sets, daily range): BP systolic 114–148; BP diastolic 67–74; PULSE 69–77; RESP 14–18; TEMP 36.1–36.9; O2SAT 96–100; BMI 39.3
[2025-03-10 06:04] LABS: Hematocrit 37.3 % (40-54); Hemoglobin 12.2 g/dL (13.0-16.5); Mean Corp Hgb Conc 32.7 g/dL (32-36); Mean Corpuscular Volume 89.7 fL (80-94); Mean Platelet Vol. 9.1 fl (6.2-12.0); Platelet Count 188 K/mm3 (150-450); RBC Distribution Width CV 14.6 % (11.6-14.6); RBC Distribution Width SD 48.1 fl (35.1-43.9); Red Blood Count 4.16 M/mm3 (4.6-6.2); White Blood Count 6.6 K/mm3 (4.4-11.0)
[2025-03-10 06:35] LABS: AST(SGOT) 22 U/L (<=37); Alanine Aminotransfer ALT/SGPT 17 U/L (<=46); Albumin, Serum 4.1 g/dL (3.4-4.8); Alkaline Phosphatase 134 U/L (40-129); Anion Gap 12 (5-15); BUN 10 mg/dL (4-19); BUN/Creat Ratio 10.1 RATIO (10-20); Calcium,Total 8.9 mg/dL (7.6-11.0); Carbon Dioxide 21.0 mmol/L (21.0-32.0); Chloride 106 mmol/L (98-108); Estimated Creatinine Clearance 95.99 ml/min (50-250); Globulin 2.5 g/dL (2.2-4.2); Glucose 98 mg/dL (70-99); Potassium 3.4 mmol/L (3.3-5.1)
--- NOTE | 2025-03-10 07:40 | PCM.PN.HOSP ---
Reason for Visit Chief Complaint: Persistent abdominal pain with diarrhea and weakness Subjective Subjective Patient is a 69-year-old male who presented persistent abdominal pain with diarrhea and weakness. Objective Data Objective Data Vital Signs: Vital Signs Temp Pulse Resp BP Pulse Ox O2 Del Method 98.4 F 77 16 119/69 98 Room Air 03/10/25 06:00 03/10/25 06:00 03/10/25 06:00 03/10/25 06:00 03/10/25 06:00 03/10/25 06:00 Oxygen Delivery Method Room Air Weight: 131.496 kg Body Mass Index (BMI) 39.3 Intake & Output: Intake and Output for Last 24 Hours 03/08/25 03/09/25 03/10/25 23:59 23:59 23:59 Intake Total 2174 / 2174 691.67 / 691.67 Output Total 450 / 450 625 / 625 1025 / 1025 Balance 1724 / 1724 66.67 / 66.67 -1025 / -1025 Lab / Micro Data 03/10/25 05:26 03/10/25 05:26 Labs: Laboratory Results - last 24 hr 03/09/25 05:48: Phosphorus 3.5, Magnesium 2.1 03/09/25 12:10: POC Glucose 106 03/10/25 05:26: WBC 6.6, RBC 4.16 L, Hgb 12.2 L, Hct 37.3 L, MCV 89.7, MCH 29.3, MCHC 32.7, RDW Std Deviation 48.1 H, RDW Coeff of Vaishnavi 14.6, Plt Count 188, MPV 9.1, Sodium 139, Potassium 3.4, Chloride 106, Carbon Dioxide 21.0, Anion Gap 12, BUN 10, Creatinine 0.99, Estim Creat Clear Calc 95.99, Est GFR (MDRD) Non-Af 82, BUN/Creatinine Ratio 10.1, Glucose 98, Calcium 8.9, Total Bilirubin 0.50, AST 22, ALT 17, Alkaline Phosphatase 134 H, Total Protein 6.6, Albumin 4.1, Globulin 2.5, Albumin/Globulin Ratio 1.6 Micro: Microbiology 03/08/25 13:10 Stool Stool Lactoferrin - Final 03/08/25 13:10 Stool Enteric Bacteriology - Final Physical Exam Narrative GENERAL: cooperative HEENT: Atraumatic; normocephalic EYES; right eye enucleated NECK; supple, normal thyroid, RESPIRATORY: Diminished to auscultation CARDIOVASCULAR: Regular S1 S2, GI: soft, normoactive bowel sounds, : No Renal angle tenderness; EXTREMITIES: No edema, no clubbing, MUSCULOSKELETAL: no muscle wasting NEURO: Awake; no lateralizing signs. SKIN: No Rash PSYCH; Flat affect Assessment & Plan Assessment/Plan (1) Abdominal pain: (2) Abdominal distension: PLAN: Plan Patient is a 69-year-old male who presented persistent abdominal pain with diarrhea and weakness. 1. Persistent abdominal pain with distention and diarrhea ? GI following. Recent hospitalization here, GI and general surgery follow-up. 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 Repeat CT abdomen pelvis on this admission moderate amount of fecal material throughout the colon, venous collateral vessels seen through the subcu tissues, gallstone in neck of the gallbladder, no other concerning findings. Gallbladder ultrasound showed solitary stone in neck of gallbladder with hepatomegaly and fatty infiltration of liver. No LFT elevation noted, no concern for acute cystitis. CT abdomen pelvis notably is stable from previous. Plan is for EGD and colonoscopy today, we will follow-up results. Appreciate further GI recommendations. ? 03/10/2025; patient was kept n.p.o. after midnight with plan for patient to undergo EGD and colonoscopy 2. Hyponatremia, resolved ? Sodium 120 on admit. Improved back to normal range with IV fluid resuscitation. ? 03/10/2025; sodium levels up to 139 3. Hypokalemia ? Potassium 3.3 on 03/08. Repleting as needed. ? 03/10/2025; potassium levels at 3.4 ordered additional IV potassium 4. Mild acute on chronic debility ? PT/OT/case management following. Patient lives at home with his , has had some difficulty caring for himself with his recent medical issues. Has had fairly good therapy scores while inpatient, planning for outpatient therapy on discharge. 5. Class II obesity with BMI of 39.9 ? Complicating care weight loss advised 6. Seizure disorder - Continue home lacosamide, Lamictal, Keppra and zonisamide. 7. History of DVT -s/p IVC filter placement: INR therapeutic at 2.4 on admit. Continue home Coumadin. 8. Hypothyroidism ? Patient is on levothyroxine home dose continued 9. GERD ? On PPI 10. DVT prophylaxis ? On Coumadin Time spent in the patient's overall evaluation,decision-making process, review of diagnostic data, adjustment of management, discussion with other providers, nursing nursing and ancillary staff involved in patient's care documentation,38 Minutes Charges/Coding Visit Charges Inpatient E&M: [id number] [facility] L2
[2025-03-10] MEDS: ZONISAMIDE 100 MG CAPSULE PO ×2 (08:14→21:57)
[2025-03-10] MEDS: Potassium Chloride Oral Soln 20 MEQ/15 ML UDC 10 MEQ PO (08:14)
[2025-03-10] MEDS: Potassium Chloride 10mEq/100mL 10 MEQ/100 ML IV.SOLN. 100 MEQ IV BOLUS (10:25)
[2025-03-10] MEDS: 0.9% Saline Lock 10 ML Syringe IV ×2 (10:26→23:01)
[2025-03-10] MEDS: 0.9% Normal Saline (1000mL) 1,000 ML 75 ML IV (10:26)
[2025-03-10 13:08] LABS: Anti-Chromatin <0.2 AI (0.0-0.9); Anti-Jo <0.2 AI (0.0-0.9); Anti-dsDNA Ab <1 IU/mL (0-9); SJOGREN'S Anti-SS-A test < 0.2 AI (0.0-0.9); SJOGREN'S Anti-SS-B test < 0.2 AI (0.0-0.9)
[2025-03-10] MEDS: Lactated Ringers 1,000 ML 15 ML IV (16:17)
--- NOTE | 2025-03-10 16:28 | PCM.PRE.AN2 ---
ASA Classification* ASA Classification ASA Classification: 3 Assessment & Plan Anesthesia* Anesthesia Assessment Anesthesia Assessment: Discussed sedation and/or anesthesia options, risks, benefits, and alternatives with patient/parents/legal guardian/POA. Questions invited. The patient/parents/legal guardian/POA seems to understand and agrees to proceed with anesthesia plan. Reviewed the physical assessment, medical history, allergy history and patient home medications list prior to surgery/procedure/anesthetic and documented any changes. Performed airway and anesthesia risk assessments. Anesthesia Type Anesthesia Type: General and MAC History Source History Obtained from:: Patient and Chart Anesthesia Focused Assessment* Temperature: 97.6 F Pulse Rate: 72 Blood Pressure: 148/74 Respiratory Rate: 16 Pulse Ox: 99 Oxygen Delivery Method: Room Air Airway Assessment Mouth opens: >3 cm Mallampati Score: II Teeth Condition: Chipped/Broken and Missing Neck Range of motion (ROM): Limited ROM Labs Anesthesia Preop lab: CBC WBC 6.6 K/mm3 (4.4-11.0) 03/10/25 05:03/10/25 RBC 4.16 M/mm3 (4.6-6.2) L 03/10/25 05:26 03/10/25 Hgb 12.2 g/dL (13.0-16.5) L 03/10/25 05:26 03/10/25 Hct 37.3 % (40-54) L 03/10/25 05:26 03/10/25 Plt Count 188 K/mm3 (150-450) 03/10/25 05:26 03/10/25 CHEMISTRY Potassium 3.4 mmol/L (3.3-5.1) 03/10/25 05:26 03/10/25 Sodium 139 mmol/L (133-145) 03/10/25 05:26 03/10/25 Magnesium 2.1 mg/dL (1.5-2.2) 03/09/25 05:48 03/09/25 Phosphorus 3.5 mg/dL (2.7-4.5) 03/09/25 05:48 03/09/25 BUN 10 mg/dL (4-19) 03/10/25 05:26 03/10/25 Creatinine 0.99 mg/dL (0.70-1.20) 03/10/25 05:26 03/10/25 Glucose 98 mg/dL (70-99) 03/10/25 05:26 03/10/25 POC Glucose 106 mg/dL (74-106) 03/09/25 12:10 03/09/25 TSH 1.500 uIU/mL (0.300-4.200) 02/28/25 05:35 02/28/25 COAG PT 35.1 SECONDS (11.7-14.9) H 03/09/25 05:48 03/09/25 Pre-Assessment Diagnosis/Proposed Procedure Planned Operative Procedure(s): EGD and colonoscopy Anesthesia History 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 When Was Last Pacemaker Check QUESTION #4 FULL TEXT: You/Your Family Experience fever (hyperthermia) with Anesthesia Last Oral Intake Last Oral intake: Last Oral Intake NPO since 08:12 03/10/25 14:42 Meds taken in AM with sips of Yes 03/10/25 14:42 water? 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 Has anyone observed you stop No 03/06/25 17:10 breathing during sleep? STOP Results Negative 03/06/25 17:10 QUESTION #5 FULL TEXT : Do you snore loudly (louder than talking or can be heard through closed doors)? 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 Specify any problems Hx of Preganancy in last 3 N/A 03/06/25 17:10 Months Nurse Filling Out Transfusion NMARTY 03/06/25 17:10 & Questions: Date: 03/06/25 03/06/25 17:10 Time: 17:31 03/06/25 17:10 Patient unable to answer at this time (ie. 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 Hx Now Gestational Age (in weeks): EDC: Hx Hx Para Hx Section SAB No 03/19/24 14:05 Active Medications Active Medications: Current Medications Generic Name Dose Route Start Last Admin Trade Name Freq PRN Reason Stop Dose Admin Acetaminophen 650 mg 03/05/25 17:58 Acetaminophen 325 Mg Tablet PO Q6H PRN PRN Pain 1-10 Or Fever>100.7 Furosemide 20 mg 03/06/25 10:00 03/09/25 17:54 Furosemide 20 Mg Tablet PO 20 mg DAILY FRANCOIS Administration Protocol Lactated Ringer's 1,000 mls @ 15 mls/hr 03/10/25 16:30 03/10/25 16:17 IV 15 mls/hr .Q48H FRANCOIS Administration Lacosamide 200 mg 03/05/25 22:00 03/10/25 08:18 Lacosamide 100 Mg Tablet PO 200 mg BID FRANCOIS Administration Lamotrigine 200 mg 03/05/25 22:00 03/10/25 08:15 Lamotrigine 100 Mg Tablet PO 200 mg BID FRANCOIS Administration Levetiracetam 1,500 mg 03/05/25 22:00 03/10/25 08:14 Levetiracetam 750 Mg Tablet PO 1,500 mg BID FRANCOIS Administration Levothyroxine Sodium 88 mcg 03/06/25 06:00 03/10/25 05:54 Levothyroxine 88 Mcg Tablet PO 88 mcg DAILY@0600 FRANCOIS Administration Melatonin 3 mg 03/05/25 17:58 Melatonin 3 Mg Tablet PO QHS PRN PRN INSOMNIA Ondansetron HCl 4 mg 03/05/25 17:58 03/08/25 09:32 Ondansetron 4 Mg/2 Ml Vial IV 4 mg Q8H PRN PRN Administration NAUSEA/VOMITING Potassium Chloride 10 meq 03/06/25 10:00 03/10/25 08:14 Potassium Chloride Oral Soln 20 Meq/15 Ml Udc PO 10 meq DAILY FRANCOIS Administration Sodium Chloride 10 - 40 ml 03/05/25 17:17 03/10/25 10:26 0.9% Saline Lock 10 Ml Syringe IV 10 ml UD PRN Administration SALINE FLUSH Sodium Chloride 10 - 40 ml 03/06/25 17:32 0.9% Saline Lock 10 Ml Syringe IV UD PRN SALINE FLUSH Tamsulosin HCl 0.4 mg 03/05/25 22:00 03/09/25 20:54 Tamsulosin Hcl 0.4 Mg Capsule PO 0.4 mg QHS FRANCOIS Administration Warfarin Sodium 7.5 mg 03/06/25 17:00 03/07/25 16:25 Warfarin 7.5 Mg Tablet PO 7.5 mg DAILY@1700 FRANCOIS Administration Zonisamide 100 mg 03/05/25 22:00 03/10/25 08:14 Zonisamide 100 Mg Capsule PO 100 mg BID FRANCOIS Administration PFSH Medical History Seizures Loss of one eye Wears glasses Cancer Thyroid disease Arthritis Prostate disease Bladder disease Low iron High cholesterol Diarrhea Gastric reflux Non-smoker History of pain when walking Heart murmur Localized swelling of both lower legs Abnormal biliary HIDA scan Anxiety and depression HTN (hypertension) History of DVT of lower extremity Seizure disorder Home Medications ?Medication ?Instructions ?Recorded ?Last Taken ?Type lamotrigine 200 mg tablet 200 mg PO BID SEIZURES 03/12/14 03/21/24 History (Lamictal) lacosamide 200 mg tablet 200 mg PO BID SEIZURES 09/17/19 03/04/25 History zonisamide 100 mg capsule 100 mg PO BID SEIZURES 09/17/19 03/20/24 History warfarin 7.5 mg tablet 7.5 mg PO DAILY BLOOD THINNER 09/12/21 03/16/24 History levetiracetam 750 mg tablet 1,500 mg PO BID SEIZURES 03/11/24 03/21/24 History levothyroxine 88 mcg tablet 88 mcg PO DAILY THYROID 03/11/24 03/21/24 History furosemide 40 mg tablet 20 mg PO DAILY water pill 03/19/24 Unknown History ibuprofen 600 mg tablet 600 mg PO Q6H PRN fever or pain 03/21/24 03/04/25 Rx #20 tabs potassium chloride 20 mEq/15 mL 10 meq PO DAILY supplement 02/27/25 Unknown History oral liquid tamsulosin 0.4 mg capsule 0.4 mg PO QHS prostate 02/27/25 Unknown History Allergy/AdvReac Type Severity Reaction Status Date / Time No Known Allergies Allergy Verified 03/05/25 11:42 Surgical History Hx of colonoscopy History of vascular access device Hx of vascular surgery Hx of left cataract extraction Social History household members: spouse Smoking Status: Never smoker Review of Systems (Anesthesia) ROS Narrative System reviewed and no additional complaints, except as documented.
--- NOTE | 2025-03-10 17:00 | EGD_PTH ---
PATIENT: EDER VILLANUEVA LOC: MS3 U#:[id number] AGE/SX: 69/M ROOM: [facility] [place] RE03/08/[address]: Dr. Carlton Davis MD : 1955 BED: 1 DIS: 03/12/2025 SPEC #: [id number] RECD: 03/10/25 18:42 STATUS: ASHLEY REDonna #: [id number] JOSETTE: 03/10/25 17:[address]: Ra Franciscohsaan DEPT: SURGICAL PATHOLOGY RECD BY: Ariel Almanza ENTERED: 03/11/25 09:25 SP TYPE: EGD BIOPSY OTHR DR: DO Dr. Carlton Davidson MD Dr. Jordan Garrison, DO Dr. Danae Stanton MD Tissues: A - Duodenum, NOS B - SPLENIC FLEXURE Procedures: Trichrome (control) Special Stain Group I Surgery Specimen Level IV HEADER OPERATION: Colonoscopy, EGD PRE-OP DIAGNOSIS: Persistent abdominal pain with diarrhea and weakness TISSUE SUBMITTED: A- Duodenum biopsy, B- Splenic flexure biopsy MICROSCOPIC DIAGNOSIS A. Duodenum, biopsy: - Nguyen gland hyperplasia. - Negative for increased intraepithelial lymphocytes. B. Splenic flexure, biopsy: - Mild acute inflammation with mild crypt architectural distortion - see note. - Trichrome stain is negative for thickening of the subepithelial collagen plate. Note: The histologic differential diagnosis includes infection, medication injury, ischemia, and diverticular disease-associated colitis. No granulomas or dysplasia seen. MICROSCOPIC DESCRIPTION Slides are reviewed. All matched controls reacted appropriately. These tests were developed and their performance characteristics determined by [facility]. They may not have been cleared or approved by the U.S. Food and Drug Administration. The FDA has determined that such clearance or approval is not necessary.? The above immunohistochemical/dualISH?markers are reviewed by the Pathologist. GROSS DESCRIPTION A. Received in fixative is one container labeled with the patient's name and designated Duodenum biopsy. The specimen consists of multiple irregular fragments of light larsen soft tissue that in aggregate measure 1.2 x 0.3 x 0.1 cm. The specimen is totally submitted in one cassette. B. Received in fixative is one container labeled with the patient's name and designated Splenic flexure biopsy. The specimen consists of two irregular fragments of light larsen soft tissue that measure 0.3 and 0.5 cm. The specimen is totally submitted in one cassette. MI 03/11/2025 CPT:31293d4,35200
--- NOTE | 2025-03-10 18:07 | OP.EGD_ITS ---
Patient Name: John Rogers Procedure Date: 03/10/2025 5:24 PM Date of : 1955 Age: 69 Procedure: Upper GI endoscopy Indications: Epigastric abdominal pain, Dyspepsia, Failure to respond to medical treatment Providers: Luis A Singh DO Medicines: Monitored Anesthesia Care Patient Profile: This is a 69 year old male. Refer to note in patient chart for documentation of history and physical. Patient has symptoms of acute abdominal distention and acute global abdominal pain. Complications: No immediate complications. Procedure: Pre-Anesthesia Assessment: - Prior to the procedure, a History and Physical was performed, and patient medications and allergies were reviewed. The patient is competent. The risks and benefits of the procedure and the sedation options and risks were discussed with the patient. All questions were answered and informed consent was obtained. Patient identification and proposed procedure were verified by the physician in the pre-procedure area. Mental Status Examination: alert and oriented. Airway Examination: normal oropharyngeal airway and neck mobility. Respiratory Examination: clear to auscultation. CV Examination: normal. Prophylactic Antibiotics: The patient does not require prophylactic antibiotics. Prior Anticoagulants: The patient has taken no anticoagulant or antiplatelet agents. ASA Grade Assessment: II - A patient with mild systemic disease. After reviewing the risks and benefits, the patient was deemed in satisfactory condition to undergo the procedure. The anesthesia plan was to use monitored anesthesia care (MAC). Immediately prior to administration of medications, the patient was re-assessed for adequacy to receive sedatives. The heart rate, respiratory rate, oxygen saturations, blood pressure, adequacy of pulmonary ventilation, and response to care were monitored throughout the procedure. The physical status of the patient was re-assessed after the procedure. After obtaining informed consent, the endoscope was passed under direct vision. Throughout the procedure, the patient's blood pressure, pulse, and oxygen saturations were monitored continuously. The was introduced through the mouth, and advanced to the fourth part of the duodenum. Small bowel enteroscopy was deemed necessary. The upper GI endoscopy was accomplished without difficulty. The patient tolerated the procedure well. Scope In: 5:45:48 PM Scope Out: 5:48:33 PM Total Procedure Duration Time 0 hours 2 minutes 45 seconds Findings: The examined esophagus was normal. Normal mucosa was found in the entire examined stomach. However his stomach was very dilated. All the air was removed from the stomach. Patchy mildly erythematous mucosa without active bleeding and with no stigmata of bleeding was found in the duodenal bulb. Biopsies were taken with a cold forceps for histology. Verification of patient identification for the specimen was done. Estimated blood loss was minimal. The duodenum also appeared very dilated. Impression: - Normal esophagus. - Normal mucosa was found in the entire stomach. - Erythematous duodenopathy. Biopsied. Recommendation: - Return patient to [facility] for [facility] care. - Clear liquid diet. - Continue present medications. Procedure Code(s): --- Professional --- 63030, Small intestinal endoscopy, enteroscopy beyond second portion of duodenum, not including ileum; with biopsy, single or multiple CPT copyright 2021 [employer]. All rights reserved. The codes documented in this report are preliminary and upon surgical coder review may be revised to meet current compliance requirements. Luis A Singh DO 03/10/2025 6:06:58 PM This report has been signed electronically. Number of Addenda: 0 Note Initiated On: 03/10/2025 5:24 PM
--- NOTE | 2025-03-10 18:07 | OP.PROVAT_ITS ---
03/10/2025 Hari Oneill [address] [place] [address] Re : Upper GI endoscopy procedure for John Rogers Dear Dr. Oneill This procedure was performed on Monday, March 10, 2025. My impressions and recommendations are as follows: Impressions : - Normal esophagus. - Normal mucosa was found in the entire stomach. - Erythematous duodenopathy. Biopsied. Recommendations : - Return patient to [facility] for ongoing care. - Clear liquid diet. - Continue present medications. My findings are described in the full procedure note, which is enclosed. If I can be of further assistance, please feel free to contact me at . Sincerely, Luis A Singh, 03/10/2025 6:06:58 PM This report has been signed electronically.
--- NOTE | 2025-03-10 18:14 | PCM.POST.ANE ---
Anesthesia: Postop Eval I Current Vital Signs Temperature: 97.2 F Pulse Rate: 69 Blood Pressure: 132/69 Respiratory Rate: 16 Pulse Ox: 100 Oxygen Delivery Method: Room Air Assessment Airway patent: Yes Spontaneous unlabored respirations: Yes Mental status: Awake nausea: No Vomiting: No Anesthesia Complication: No Fluid Hydration Crystalloid volume administer (ml): 300 Total IV fluid infused: 300 Progress Note Anesthesia document: Postop Eval 1 completed: Yes
--- NOTE | 2025-03-10 18:30 | OP.COLON_ITS ---
Patient Name: John Rogers Procedure Date: 03/10/2025 5:48 PM Date of : 1955 Age: 69 Procedure: Colonoscopy Indications: Generalized abdominal pain, Generalized abdominal distress, Abnormal CT of the GI tract Providers: Luis A Singh DO Medicines: Monitored Anesthesia Care Patient Profile: This is a 69 year old male. Refer to note in patient chart for documentation of history and physical. Patient has symptoms of acute abdominal distention and acute global abdominal pain. Last Colonoscopy: date unknown. Unable to locate last colonoscopy report. Complications: No immediate complications. Procedure: Pre-Anesthesia Assessment: - Prior to the procedure, a History and Physical was performed, and patient medications and allergies were reviewed. The patient is competent. The risks and benefits of the procedure and the sedation options and risks were discussed with the patient. All questions were answered and informed consent was obtained. Patient identification and proposed procedure were verified by the physician in the pre-procedure area. Mental Status Examination: alert and oriented. Airway Examination: normal oropharyngeal airway and neck mobility. Respiratory Examination: clear to auscultation. CV Examination: normal. Prophylactic Antibiotics: The patient does not require prophylactic antibiotics. Prior Anticoagulants: The patient has taken no anticoagulant or antiplatelet agents. ASA Grade Assessment: II - A patient with mild systemic disease. After reviewing the risks and benefits, the patient was deemed in satisfactory condition to undergo the procedure. The anesthesia plan was to use monitored anesthesia care (MAC). Immediately prior to administration of medications, the patient was re-assessed for adequacy to receive sedatives. The heart rate, respiratory rate, oxygen saturations, blood pressure, adequacy of pulmonary ventilation, and response to care were monitored throughout the procedure. The physical status of the patient was re-assessed after the procedure. After I obtained informed consent, the scope was passed under direct vision. Throughout the procedure, the patient's blood pressure, pulse, and oxygen saturations were monitored continuously. The was introduced through the anus and advanced to the cecum, identified by appendiceal orifice and ileocecal valve. The colonoscopy was performed without difficulty. The patient tolerated the procedure well. The quality of the bowel preparation was fair. The ileocecal valve and the rectum were photographed. Scope In: 5:52:10 PM Scope Withdrawal Time 0 hours 3 minutes 52 seconds Scope Out: 6:01:09 PM Total Procedure Duration Time 0 hours 8 minutes 59 seconds Findings: The perianal and digital rectal examinations were normal. The lumen of the descending colon, splenic flexure, transverse colon, hepatic flexure and ascending colon was moderately dilated. Biopsies were taken with a cold forceps for histology. Verification of patient identification for the specimen was done. Estimated blood loss was minimal. Stool was found in the transverse colon, at the hepatic flexure, in the ascending colon and in the cecum, precluding visualization. Impression: - Preparation of the colon was fair. - Dilated in the descending colon, at the splenic flexure, in the transverse colon, at the hepatic flexure and in the ascending colon. Biopsied. - Stool in the transverse colon, at the hepatic flexure, in the ascending colon and in the cecum. - Chronic intestinal pseudoobstruction - Absolutely no narcotics - Metoclopramide 10 mg IV every 6 hours to increase gastric motility - Azithromycin 500 mg IV once a day to increase small bowel motility - octreotide 100 mcg/day, subcutaneous injection to increase small bowel motility and decrease small bacterial overgrowth - Augmentin 875/125 p.o. twice daily x 10 days - Acetylcholinesterase inhibitors (neostigmine, 8 mg/d, intravenous injection or pyridostigmine, 20 mg/d, oral administration) to increase colonic motility Recommendation: - [facility] care. - Repeat colonoscopy in 3 months to check healing. - Continue present medications. Procedure Code(s): --- Professional --- 36847, Colonoscopy, flexible; with biopsy, single or multiple CPT copyright 2021 [employer]. All rights reserved. The codes documented in this report are preliminary and upon death surveys coder review may be revised to meet current compliance requirements. Luis A Singh DO 03/10/2025 6:29:59 PM This report has been signed electronically. Number of Addenda: 0 Note Initiated On: 03/10/2025 5:48 PM
--- NOTE | 2025-03-10 18:30 | OP.PROVAT_ITS ---
03/10/2025 Hari Oneill [address] [place] [address] Re : Colonoscopy procedure for John Rogers Dear Dr. Oneill This procedure was performed on Monday, March 10, 2025. My impressions and recommendations are as follows: Impressions : - Preparation of the colon was fair. - Dilated in the descending colon, at the splenic flexure, in the transverse colon, at the hepatic flexure and in the ascending colon. Biopsied. - Stool in the transverse colon, at the hepatic flexure, in the ascending colon and in the cecum. - Chronic intestinal pseudoobstruction - Absolutely no narcotics - Metoclopramide 10 mg IV every 6 hours to increase gastric motility - Azithromycin 500 mg IV once a day to increase small bowel motility - octreotide 100 mcg/day, subcutaneous injection to increase small bowel motility and decrease small bacterial overgrowth - Augmentin 875/125 p.o. twice daily x 10 days - Acetylcholinesterase inhibitors (neostigmine, 8 mg/d, intravenous injection or pyridostigmine, 20 mg/d, oral administration) to increase colonic motility Recommendations : - [facility] care. - Repeat colonoscopy in 3 months to check healing. - Continue present medications. My findings are described in the full procedure note, which is enclosed. If I can be of further assistance, please feel free to contact me at . Sincerely, Luis A Singh, 03/10/2025 6:29:59 PM This report has been signed electronically.
[2025-03-10] MEDS: Azithromycin 500 MG in 0.9% Normal Saline (250mL Bag) 250 ML 250 MG IV (19:54)
[2025-03-10] MEDS: Octreotide 0.1 MG/ML ML SC (20:02)
--- NOTE | 2025-03-10 20:11 | PCM.POSTANE2 ---
Anesthesia Postop Eval I Sum Postop Eval Completion status Anesthesia document: Postop Eval 1 completed: Yes Anesthesia Postop Eval I Summary Anesthesia Postop Eval I Summary: Anesthesia Postop Eval I: Assessment Summary Airway patent Yes 03/10/25 18:14 Spontaneous unlabored Yes 03/10/25 18:14 respirations Mental status Awake 03/10/25 18:14 nausea No 03/10/25 18:14 Vomiting No 03/10/25 18:14 Anesthesia Postop Eval I: Fluid Summary Crystalloid volume administer 300 03/10/25 18:14 (ml) Colloids volume administered ( ml) Blood Product volume administered (ml) Total IV fluid infused 300 03/10/25 18:14 Anesthesia Postop Eval I: Summary Notes Anesthesia Complication No 03/10/25 18:14 Anesthesia Complication Comment: Post-operative progress note Anesthesia: Postop Eval II Evaluation Mental status: Awake and Calm Pain Level: 1 nausea: No Vomiting: No Complications Anesthesia Complication: No
[2025-03-11 02:00] VITALS: BP 132/95; PULSE 84; RESP 16; TEMP 36.8; O2SAT 93
[2025-03-11 05:07] LABS: Hematocrit 36.7 % (40-54); Hemoglobin 12.0 g/dL (13.0-16.5); Immature Granulocytes Count 0.010 X10^3/uL (0.0-0.0); Mean Corp Hgb Conc 32.7 g/dL (32-36); Mean Corpuscular Volume 89.3 fL (80-94); Mean Platelet Vol. 8.7 fl (6.2-12.0); NRBC Flagged by Analyzer 0 % (0-5); Platelet Count 165 K/mm3 (150-450); RBC Distribution Width CV 14.5 % (11.6-14.6); RBC Distribution Width SD 47.3 fl (35.1-43.9); Red Blood Count 4.11 M/mm3 (4.6-6.2); White Blood Count 5.6 K/mm3 (4.4-11.0)
[2025-03-11 06:02] LABS: Anion Gap 13 (5-15); BUN 8 mg/dL (4-19); BUN/Creat Ratio 8.8 RATIO (10-20); Calcium,Total 8.8 mg/dL (7.6-11.0); Carbon Dioxide 19.6 mmol/L (21.0-32.0); Chloride 106 mmol/L (98-108); Estimated Creatinine Clearance 101.09 ml/min (50-250); Glucose 131 mg/dL (70-99); Magnesium 2.2 mg/dL (1.5-2.2); Potassium 3.9 mmol/L (3.3-5.1)
[2025-03-11] MEDS: 0.9% Saline Lock 10 ML Syringe IV ×2 (06:26→21:45)
--- NOTE | 2025-03-11 07:21 | PCM.PN.HOSP ---
Reason for Visit Chief Complaint: Persistent abdominal pain with diarrhea and weakness Subjective Subjective Patient underwent colonoscopy the day prior results as below Objective Data Objective Data Vital Signs: Vital Signs Temp Pulse Resp BP Pulse Ox O2 Del Method 98.3 F 84 16 132/95 H 93 Room Air 03/11/25 02:00 03/11/25 02:00 03/11/25 02:00 03/11/25 02:00 03/11/25 02:00 03/11/25 02:00 Oxygen Delivery Method Room Air Weight: 131.496 kg Body Mass Index (BMI) 39.3 Intake & Output: Intake and Output for Last 24 Hours 03/09/25 03/10/25 03/11/25 23:59 23:59 23:59 Intake Total 691.67 / 691.67 1030 / 1030 500 / 500 Output Total 625 / 625 1525 / 1525 625 / 625 Balance 66.67 / 66.67 -495 / -495 -125 / -125 Lab / Micro Data 03/11/25 04:58 03/11/25 04:58 Labs: Laboratory Results - last 24 hr 03/08/25 04:53: KIMMIE-1 Antibody <0.2, SS-A/Ro IgG Antibody < 0.2, SS-B/La IgG Antibody < 0.2, Sm (Frances) Antibody <0.2, MEDIA RECONCILIATION SPECIALIST Antibody <0.2, Scl-70 Scleroderma Ab <0.2, Double Strand DNA Ab <1, Antichromatin Antibodies <0.2, Centromere B Antibody <0.2 03/11/25 04:58: WBC 5.6, RBC 4.11 L, Hgb 12.0 L, Hct 36.7 L, MCV 89.3, MCH 29.2, MCHC 32.7, RDW Std Deviation 47.3 H, RDW Coeff of Vaishnavi 14.5, Plt Count 165, MPV 8.7, Immature Gran % (Auto) 0.200, Neut % (Auto) 67.9, Lymph % (Auto) 21.4, [place] % (Auto) 5.7, Eos % (Auto) 4.3, Baso % (Auto) 0.5, Absolute Neuts (auto) 3.8, Absolute Lymphs (auto) 1.20, Nucleated RBC % 0, Sodium 138, Potassium 3.9, Chloride 106, Carbon Dioxide 19.6 L, Anion Gap 13, BUN 8, Creatinine 0.94, Estim Creat Clear Calc 101.09, Est GFR (MDRD) Non-Af 87, BUN/Creatinine Ratio 8.8 L, Glucose 131 H, Calcium 8.8, Phosphorus 2.4 L, Magnesium 2.2 Micro: Microbiology 03/08/25 13:10 Stool Stool Lactoferrin - Final 03/08/25 13:10 Stool Enteric Bacteriology - Final Physical Exam Narrative GENERAL: cooperative HEENT: Atraumatic; normocephalic EYES; right eye enucleated NECK; supple, normal thyroid, RESPIRATORY: Diminished to auscultation CARDIOVASCULAR: Regular S1 S2, GI: soft, normoactive bowel sounds, : No Renal angle tenderness; EXTREMITIES: No edema, no clubbing, MUSCULOSKELETAL: no muscle wasting NEURO: Awake; no lateralizing signs. SKIN: No Rash PSYCH; Flat affect Assessment & Plan Assessment/Plan (1) Abdominal pain: (2) Abdominal distension: PLAN: Plan Patient is a 69-year-old male who presented persistent abdominal pain with diarrhea and weakness. 1. Persistent abdominal pain with distention and diarrhea ? GI following. Recent hospitalization here, GI and general surgery follow-up. There was concern for [place] syndrome at that time. Repeat CT abdomen pelvis on this admission moderate amount of fecal material throughout the colon, venous collateral vessels seen through the subcu tissues, gallstone in neck of the gallbladder, no other concerning findings. Gallbladder ultrasound showed solitary stone in neck of gallbladder with hepatomegaly and fatty infiltration of liver. No LFT elevation noted, no concern for acute cystitis. CT abdomen pelvis notably is stable from previous. Plan is for EGD and colonoscopy today, we will follow-up results. Appreciate further GI recommendations. ? 03/10/2025; patient was kept n.p.o. after midnight with plan for patient to undergo EGD and colonoscopy ? 03/11/2025; results and recommendations from colonoscopy as below Impressions : - Preparation of the colon was fair. - Dilated in the descending colon, at the splenic flexure, in the transverse colon, at the hepatic flexure and in the ascending colon. Biopsied. - Stool in the transverse colon, at the hepatic flexure, in the ascending colon and in the cecum. - Chronic intestinal pseudoobstruction - Absolutely no narcotics - Metoclopramide 10 mg IV every 6 hours to increase gastric motility - Azithromycin 500 mg IV once a day to increase small bowel motility - octreotide 100 mcg/day, subcutaneous injection to increase small bowel motility and decrease small bacterial overgrowth - Augmentin 875/125 p.o. twice daily x 10 days - Acetylcholinesterase inhibitors (neostigmine, 8 mg/d, intravenous injection or pyridostigmine, 20 mg/d, oral administration) to increase colonic motility Recommendations : - [facility] care. - Repeat colonoscopy in 3 months to check healing. - Continue present medications. 2. Hyponatremia, resolved ? Sodium 120 on admit. Improved back to normal range with IV fluid resuscitation. ? 03/10/2025; sodium levels up to 139 3. Hypokalemia ? Potassium 3.3 on 03/08. Repleting as needed. ? 03/10/2025; potassium levels at 3.4 ordered additional IV potassium 4. Mild acute on chronic debility ? PT/OT/case management following. Patient lives at home with his , has had some difficulty caring for himself with his recent medical issues. Has had fairly good therapy scores while inpatient, planning for outpatient therapy on discharge. 5. Class II obesity with BMI of 39.9 ? Complicating care weight loss advised 6. Seizure disorder - Continue home lacosamide, Lamictal, Keppra and zonisamide. 7. History of DVT -s/p IVC filter placement: INR therapeutic at 2.4 on admit. Continue home Coumadin. 8. Hypothyroidism ? Patient is on levothyroxine home dose continued 9. GERD ? On PPI 10. DVT prophylaxis ? On Coumadin 11. Hyperphosphatemia ? Corrected per protocol Time spent in the patient's overall evaluation,decision-making process, review of diagnostic data, adjustment of management, discussion with other providers, nursing nursing and ancillary staff involved in patient's care documentation,36 Minutes Charges/Coding Visit Charges Inpatient E&M: 63830 Subs Hosp L2
[2025-03-11 07:53] VITALS: BP 145/71; PULSE 72; RESP 18; TEMP 36.7; O2SAT 94
[2025-03-11 07:56] VITALS: PULSE 72
[2025-03-11] MEDS: Potassium Chloride Oral Soln 20 MEQ/15 ML UDC 10 MEQ PO (08:38)
[2025-03-11] MEDS: Na Biphos/Potassium Phosphate PACKET 1 PACKET PO ×2 (08:40→21:54)
[2025-03-11] MEDS: Octreotide 0.1 MG/ML ML SC (08:40)
[2025-03-11] MEDS: ZONISAMIDE 100 MG CAPSULE PO ×2 (08:41→21:54)
--- NOTE | 2025-03-11 12:55 | NURSING ---
rossana sent for pt administration and given to pt
[2025-03-11 14:00] VITALS: PULSE 72
[2025-03-11 15:00] VITALS: BP 121/64; PULSE 72; RESP 18; TEMP 36.7; O2SAT 96
[2025-03-11 17:00] VITALS: BMI 35.9
--- NOTE | 2025-03-11 19:01 | PN_ITS ---
Progress Note Patient is still complaining of some bloating but is feeling a little bit better than yesterday. He is tolerating new medication regimen. His diet has been advanced. Physical Exam Narrative GENERAL: cooperative HEENT: Atraumatic; normocephalic EYES; right eye enucleated NECK; supple, normal thyroid, RESPIRATORY: Diminished to auscultation CARDIOVASCULAR: Regular S1 S2, GI: soft, normoactive bowel sounds, : No Renal angle tenderness; EXTREMITIES: No edema, no clubbing, MUSCULOSKELETAL: no muscle wasting NEURO: Awake; no lateralizing signs. SKIN: No Rash PSYCH; Flat affect Assessment & Plan Assessment/Plan (1) Abdominal distension: (2) Abdominal pain: PLAN: 69-year-old patient presents with primary complaint of gas and bloating, which has been ongoing for several months. He reports generalized abdominal discomfort and distention, feeling full easily after eating small amounts. He does not have a known history of cirrhotic or non-cirrhotic portal hypertension. He denies history of cirrhosis or other chronic liver diseases such as viral hepatitis, biliary cirrhosis, steatohepatitis, or autoimmune hepatitis. , * Differential diagnoses for gas/bloat in this setting include: * Irritable Bowel Syndrome (IBS):?May present with gas and bloating. * Gastroparesis, although less likely to be the primary cause of these symptoms in the setting of portal hypertension. * Small Intestinal Bacterial Overgrowth (SIBO):?Can cause bloating and gas. * Dietary Factors:?Certain foods can exacerbate gas and bloating. * Further evaluation needed to confirm the cause of the gas and bloating. * Such as EGD with biopsies, stool for pancreatic elastase, autoantibodies for celiac disease, gastric emptying study * If workup is negative then I would recommend vascular consultation due to CT abnormalities of multiple portal collateral mesenteric veins PLAN: Plan 03/07/2025-patient has been on the full liquid diet. I will check biochemical labs and he will prep for an EGD and colonoscopy on 03/09/2025. 03/09/2025-patient can have clear liquid diet tonight. N.p.o. at midnight for EGD and colonoscopy tomorrow. 03/11/2025-chronic intestinal pseudoobstruction. Patient is on prokinetics for his stomach, prokinetics for his small bowel. He may need neostigmine. Continue current regimen and if patient progresses then he can be DC'd on current medication regimen. Further recommendation to follow. Visit Charges Inpatient E&M: 10099 Subs Hosp L3
[2025-03-11 21:41] VITALS: BP 128/60; PULSE 72; RESP 18; TEMP 37.1; O2SAT 95
[2025-03-11] MEDS: Azithromycin 500 MG in 0.9% Normal Saline (250mL Bag) 250 ML 250 MG IV (21:55)
[2025-03-12 03:30] VITALS: BP 126/72; PULSE 78; RESP 16; TEMP 37; O2SAT 96
[2025-03-12 03:53] VITALS: BMI 35.8
[2025-03-12 06:41] LABS: Hematocrit 37.6 % (40-54); Hemoglobin 12.3 g/dL (13.0-16.5); Immature Granulocytes Count 0.010 X10^3/uL (0.0-0.0); Mean Corp Hgb Conc 32.7 g/dL (32-36); Mean Corpuscular Volume 90.0 fL (80-94); Mean Platelet Vol. 9.3 fl (6.2-12.0); NRBC Flagged by Analyzer 0 % (0-5); Platelet Count 173 K/mm3 (150-450); RBC Distribution Width CV 14.4 % (11.6-14.6); RBC Distribution Width SD 47.6 fl (35.1-43.9); Red Blood Count 4.18 M/mm3 (4.6-6.2); White Blood Count 6.3 K/mm3 (4.4-11.0)
--- NOTE | 2025-03-12 06:54 | PCM.PN.HOSP ---
Reason for Visit Chief Complaint: Persistent abdominal pain with diarrhea and weakness Objective Data Objective Data Vital Signs: Vital Signs Temp Pulse Resp BP Pulse Ox O2 Del Method 98.6 F 78 16 126/72 H 96 Room Air 03/12/25 03:30 03/12/25 03:30 03/12/25 03:30 03/12/25 03:30 03/12/25 03:30 03/12/25 03:30 Oxygen Delivery Method Room Air Weight: 120 kg Body Mass Index (BMI) 35.8 Intake & Output: Intake and Output for Last 24 Hours 03/10/25 03/11/25 03/12/25 23:59 23:59 23:59 Intake Total 1030 / 1030 2049 / 2049 Output Total 1525 / 1525 2225 / 2425 700 / 700 Balance -495 / -495 -175 / -375 -700 / -700 Lab / Micro Data 03/12/25 05:58 03/11/25 04:58 Labs: Laboratory Results - last 24 hr 03/11/25 12:20: POC Glucose 139 H 03/11/25 16:46: POC Glucose 124 H 03/12/25 05:58: WBC 6.3, RBC 4.18 L, Hgb 12.3 L, Hct 37.6 L, MCV 90.0, MCH 29.4, MCHC 32.7, RDW Std Deviation 47.6 H, RDW Coeff of Vaishnavi 14.4, Plt Count 173, MPV 9.3, Immature Gran % (Auto) 0.200, Neut % (Auto) 67.1, Lymph % (Auto) 20.3, [place] % (Auto) 7.0, Eos % (Auto) 4.9, Baso % (Auto) 0.5, Absolute Neuts (auto) 4.2, Absolute Lymphs (auto) 1.28, Nucleated RBC % 0 Micro: Microbiology 03/08/25 13:10 Stool Stool Lactoferrin - Final 03/08/25 13:10 Stool Enteric Bacteriology - Final Physical Exam Narrative GENERAL: cooperative HEENT: Atraumatic; normocephalic EYES; right eye enucleated NECK; supple, normal thyroid, RESPIRATORY: Diminished to auscultation CARDIOVASCULAR: Regular S1 S2, GI: soft, normoactive bowel sounds, : No Renal angle tenderness; EXTREMITIES: No edema, no clubbing, MUSCULOSKELETAL: no muscle wasting NEURO: Awake; no lateralizing signs. SKIN: No Rash PSYCH; Flat affect Assessment & Plan Assessment/Plan (1) Abdominal pain: (2) Abdominal distension: PLAN: Plan Patient is a 69-year-old male who presented persistent abdominal pain with diarrhea and weakness. 1. Persistent abdominal pain with distention and diarrhea ? GI following. Recent hospitalization here, GI and general surgery follow-up. 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 Repeat CT abdomen pelvis on this admission moderate amount of fecal material throughout the colon, venous collateral vessels seen through the subcu tissues, gallstone in neck of the gallbladder, no other concerning findings. Gallbladder ultrasound showed solitary stone in neck of gallbladder with hepatomegaly and fatty infiltration of liver. No LFT elevation noted, no concern for acute cystitis. CT abdomen pelvis notably is stable from previous. Plan is for EGD and colonoscopy today, we will follow-up results. Appreciate further GI recommendations. ? 03/10/2025; patient was kept n.p.o. after midnight with plan for patient to undergo EGD and colonoscopy ? 03/11/2025; results and recommendations from colonoscopy as below Impressions : - Preparation of the colon was fair. - Dilated in the descending colon, at the splenic flexure, in the transverse colon, at the hepatic flexure and in the ascending colon. Biopsied. - Stool in the transverse colon, at the hepatic flexure, in the ascending colon and in the cecum. - Chronic intestinal pseudoobstruction - Absolutely no narcotics - Metoclopramide 10 mg IV every 6 hours to increase gastric motility - Azithromycin 500 mg IV once a day to increase small bowel motility - octreotide 100 mcg/day, subcutaneous injection to increase small bowel motility and decrease small bacterial overgrowth - Augmentin 875/125 p.o. twice daily x 10 days - Acetylcholinesterase inhibitors (neostigmine, 8 mg/d, intravenous injection or pyridostigmine, 20 mg/d, oral administration) to increase colonic motility Recommendations : - [facility]. - Repeat colonoscopy in 3 months to check healing. - Continue present medications. 2. Hyponatremia, resolved ? Sodium 120 on admit. Improved back to normal range with IV fluid resuscitation. ? 03/10/2025; sodium levels up to 139 3. Hypokalemia ? Potassium 3.3 on 8/3. Repleting as needed. ? 03/10/2025; potassium levels at 3.4 ordered additional IV potassium 4. Mild acute on chronic debility ? PT/OT/case management following. Patient lives at home with his , has had some difficulty caring for himself with his recent medical issues. Has had fairly good therapy scores while inpatient, planning for outpatient therapy on discharge. 5. Class II obesity with BMI of 39.9 ? Complicating care weight loss advised 6. Seizure disorder - Continue home lacosamide, Lamictal, Keppra and zonisamide. 7. History of DVT -s/p IVC filter placement: INR therapeutic at 2.4 on admit. Continue home Coumadin. 8. Hypothyroidism ? Patient is on levothyroxine home dose continued 9. GERD ? On PPI 10. DVT prophylaxis ? On Coumadin 11. Hyperphosphatemia ? Corrected per protocol Time spent in the patient's overall evaluation,decision-making process, review of diagnostic data, adjustment of management, discussion with other providers, nursing nursing and ancillary staff involved in patient's care documentation,36 Minutes
[2025-03-12 07:06] LABS: Anion Gap 12 (5-15); BUN 10 mg/dL (4-19); BUN/Creat Ratio 9.7 RATIO (10-20); Calcium,Total 8.9 mg/dL (7.6-11.0); Carbon Dioxide 22.0 mmol/L (21.0-32.0); Chloride 106 mmol/L (98-108); Estimated Creatinine Clearance 90.62 ml/min (50-250); Glucose 110 mg/dL (70-99); Potassium 3.7 mmol/L (3.3-5.1)
--- NOTE | 2025-03-12 09:20 | PCM.DC.SUM ---
Providers Date of Admission: 03/08/25 Date of Discharge: 03/12/25 Primary Care Physician: Dr. Hari Oneill, DO Consultations 03/06/25 07:18 Consult: Gastroenterology Routine Consulting Provider: [facility] Reason for Consult: recurrent diarrhea with abdominal distension EMERGENT Consult: No MD Notified: Yes Date Notified: 03/06/25 Time Notified: 07:18 Method of Notification: Text Reason For Visit: HYPONATREMIA Diagnosis Discharge Diagnosis (1) Abdominal pain: Status: Resolved Code(s): R10.9 - Unspecified abdominal pain (2) Abdominal distension: Status: Resolved Code(s): R14.0 - Abdominal distension (gaseous) Plan Patient is a 69-year-old male who presented persistent abdominal pain with diarrhea and weakness. 1. Persistent abdominal pain with distention and diarrhea ? GI following. Recent hospitalization here, GI and general surgery follow-up. There was concern for [place] syndrome at that time. Repeat CT abdomen pelvis on this admission moderate amount of fecal material throughout the colon, venous collateral vessels seen through the subcu tissues, gallstone in neck of the gallbladder, no other concerning findings. Gallbladder ultrasound showed solitary stone in neck of gallbladder with hepatomegaly and fatty infiltration of liver. No LFT elevation noted, no concern for acute cystitis. CT abdomen pelvis notably is stable from previous. Plan is for EGD and colonoscopy today, we will follow-up results. Appreciate further GI recommendations. ? 03/10/2025; patient was kept n.p.o. after midnight with plan for patient to undergo EGD and colonoscopy ? 03/11/2025; results and recommendations from colonoscopy as below Impressions : - Preparation of the colon was fair. - Dilated in the descending colon, at the splenic flexure, in the transverse colon, at the hepatic flexure and in the ascending colon. Biopsied. - Stool in the transverse colon, at the hepatic flexure, in the ascending colon and in the cecum. - Chronic intestinal pseudoobstruction - Absolutely no narcotics - Metoclopramide 10 mg IV every 6 hours to increase gastric motility - Azithromycin 500 mg IV once a day to increase small bowel motility - octreotide 100 mcg/day, subcutaneous injection to increase small bowel motility and decrease small bacterial overgrowth - Augmentin 875/125 p.o. twice daily x 10 days - Acetylcholinesterase inhibitors (neostigmine, 8 mg/d, intravenous injection or pyridostigmine, 20 mg/d, oral administration) to increase colonic motility Recommendations : - [facility]. - Repeat colonoscopy in 3 months to check healing. - Continue present medications. ? 03/12/2025 prescription was written for Augmentin and pyridostigmine 30 mg daily and a requisition given for patient to follow-up with GI as outpatient in 2 weeks 2. Hyponatremia, resolved ? Sodium 120 on admit. Improved back to normal range with IV fluid resuscitation. ? 03/10/2025; sodium levels up to 139 3. Hypokalemia ? Potassium 3.3 on 03/08. Repleting as needed. ? 03/10/2025; potassium levels at 3.4 ordered additional IV potassium 4. Mild acute on chronic debility ? PT/OT/case management following. Patient lives at home with his , has had some difficulty caring for himself with his recent medical issues. Has had fairly good therapy scores while inpatient, planning for outpatient therapy on discharge. 5. Class II obesity with BMI of 39.9 ? Complicating care weight loss advised 6. Seizure disorder - Continue home lacosamide, Lamictal, Keppra and zonisamide. 7. History of DVT -s/p IVC filter placement: INR therapeutic at 2.4 on admit. Continue home Coumadin. 8. Hypothyroidism ? Patient is on levothyroxine home dose continued 9. GERD ? On PPI 10. DVT prophylaxis ? On Coumadin 11. Hyperphosphatemia ? Corrected per protocol Time spent in the patient's overall evaluation,decision-making process, review of diagnostic data, adjustment of management, discussion with other providers, nursing nursing and ancillary staff involved in patient's care documentation,36 Minutes Medications at Discharge Home Medications lamotrigine 200 mg tablet (Lamictal) 200 mg PO BID SEIZURES 03/12/14 lacosamide 200 mg tablet 200 mg PO BID SEIZURES 09/17/19 zonisamide 100 mg capsule 100 mg PO BID SEIZURES 09/17/19 warfarin 7.5 mg tablet 7.5 mg PO DAILY BLOOD THINNER 09/12/21 levetiracetam 750 mg tablet 1,500 mg PO BID SEIZURES 03/11/24 levothyroxine 88 mcg tablet 88 mcg PO DAILY THYROID 03/11/24 furosemide 40 mg tablet 20 mg PO DAILY water pill 03/19/24 ibuprofen 600 mg tablet 600 mg PO Q6H PRN fever or pain #20 tabs 03/21/24 potassium chloride 20 mEq/15 mL oral liquid 10 meq PO DAILY supplement 02/27/25 tamsulosin 0.4 mg capsule 0.4 mg PO QHS prostate 02/27/25 amoxicillin 875 mg-potassium clavulanate 125 mg tablet 1 tab PO BID 10 days #20 tabs 03/12/25 metoclopramide HCl 5 mg tablet 5 mg PO Q6H 30 days #120 tabs 03/12/25 potassium, sodium phosphates 280 mg-160 mg-250 mg oral powder packet 1 packet PO BID 10 days #20 ea 03/12/25 pyridostigmine bromide 30 mg tablet 30 mg PO DAILY #30 tabs 03/12/25 Physical Exam Narrative GENERAL: cooperative HEENT: Atraumatic; normocephalic EYES; right eye enucleated NECK; supple, normal thyroid, RESPIRATORY: Diminished to auscultation CARDIOVASCULAR: Regular S1 S2, GI: soft, normoactive bowel sounds, : No Renal angle tenderness; EXTREMITIES: No edema, no clubbing, MUSCULOSKELETAL: no muscle wasting NEURO: Awake; no lateralizing signs. SKIN: No Rash PSYCH; Flat affect Weight / BMI Weight Weight: 120 kg Body Mass Index (BMI) 35.8 ABG / Lab / Microbiology Data 03/12/25 05:58 03/12/25 05:58 Laboratory: Laboratory Results - last 24 hr 03/11/25 12:20: POC Glucose 139 H 03/11/25 16:46: POC Glucose 124 H 03/12/25 05:58: WBC 6.3, RBC 4.18 L, Hgb 12.3 L, Hct 37.6 L, MCV 90.0, MCH 29.4, MCHC 32.7, RDW Std Deviation 47.6 H, RDW Coeff of Vaishnavi 14.4, Plt Count 173, MPV 9.3, Immature Gran % (Auto) 0.200, Neut % (Auto) 67.1, Lymph % (Auto) 20.3, Pepin % (Auto) 7.0, Eos % (Auto) 4.9, Baso % (Auto) 0.5, Absolute Neuts (auto) 4.2, Absolute Lymphs (auto) 1.28, Nucleated RBC % 0, Sodium 140, Potassium 3.7, Chloride 106, Carbon Dioxide 22.0, Anion Gap 12, BUN 10, Creatinine 1.00, Estim Creat Clear Calc 90.62, Est GFR (MDRD) Non-Af 80, BUN/Creatinine Ratio 9.7 L, Glucose 110 H, Calcium 8.9 Microbiology: Microbiology 03/08/25 13:10 Stool Stool Lactoferrin - Final 03/08/25 13:10 Stool Enteric Bacteriology - Final D/C Instructions Discharge Activity: Return to Normal Activity Call your doctor if you observe: Fever of 101 or Higher, Shortness of breath, Fainting spells and Chest pain DC O2, CPAP, BIPAP Needs Home O2 Discharge instructions: No Meaningful Use Info Meaningful Use Meaningful Use Diagnoses (Choose all that apply): None applicable Discharge Plan Admission Admit Date/Time: 03/08/25 14:49 Attending Provider: Carlton Davis Primary Care Provider: Hari Oneill Consulting Providers: Duncan Rashid; Danae Stanton Discharge Orders/Prescriptions Prescriptions: New amoxicillin-pot clavulanate 875-125 mg Tablet 1 tab PO BID 10 Days Qty: 20 0RF potassium, sodium phosphates 280-160-250 mg Powder In Packet 1 packet PO BID 10 Days Qty: 20 0RF pyridostigmine bromide 30 mg tablet 30 mg PO DAILY Qty: 30 0RF metoclopramide HCl 5 mg tablet 5 mg PO Q6H 30 Days Qty: 120 0RF Continued warfarin 7.5 mg tablet 7.5 mg PO DAILY lamotrigine [Lamictal] 200 MG tablet 200 mg PO BID zonisamide 100 MG capsule 100 mg PO BID Patient Comments: 2 tabs at lunch and 2 tabs at hs lacosamide 200 mg tablet 200 mg PO BID levothyroxine 88 mcg tablet 88 mcg PO DAILY levetiracetam 750 mg tablet 1,500 mg PO BID furosemide 40 mg tablet 20 mg PO DAILY ibuprofen 600 mg tablet 600 mg PO Q6H PRN (Reason: fever or pain) Qty: 20 0RF tamsulosin 0.4 mg capsule 0.4 mg PO QHS potassium chloride 20 mEq/15 mL liquid 10 meq PO DAILY Referrals / Follow Up: Hari Oneill DO [Primary Care Provider] - In 1 Week Friend,DO Luis A [Med Staff - Active Staff] - Within 2 Weeks Disposition Disposition (needs filled in before D/C Order can be placed): Home, Self Care Charges/Coding Visit Charges Inpatient E&M: 21984 Disch Hosp >30min
--- NOTE | 2025-03-12 09:20 | CASEMGMT ---
DARREN DANIEL Readmission Chart Review Index: 02/27-. Dx: Hyponatremia, ABD Pain Current: 03/08/25. Dx: Hyponatremia See H&P regarding the pt's previous admission findings. The pt re-presented to [facility] ER with continual nausea and diarrhea leading to dehydration and worsening weakness. The pt was admitted to [facility] under obs initially but was switched to inpt status on 03/08. SW has been managing and following this case, and the DC plan is for the pt to return home with OP therapy. Care Management to continue to follow. Ervin GUZMAN RN, CM
--- NOTE | 2025-03-12 11:30 | CASEMGMT ---
Social Work- SW met with pt and pt to provide copy of OP script for [facility]. Pt and report that they will schedule. original faxed to [facility] and placed on chart. SW reviewed food availability. Pt to take pt to grocery tomorrow; assured SW that pt has food today. Pt reports they are stopping at [employer] on the way home as well. Pt and talked about the upcoming fair and plans to attend events there. Pt and talked about projects within the home; both verbalize enthusiasm regarding working to complete projects and continuing to stay active at home. Pt and pt report no other needs at this time. Plan: outpatient therapy at [facility] DUANE Chandra
[2025-03-12 11:51] VITALS: BP 104/76; PULSE 86; RESP 18; TEMP 36.9; O2SAT 99
[2025-03-12] MEDS: Potassium Chloride Oral Soln 20 MEQ/15 ML UDC 10 MEQ PO (11:53)
[2025-03-12] MEDS: ZONISAMIDE 100 MG CAPSULE PO (11:54)
[2025-03-12] MEDS: Octreotide 0.1 MG/ML ML SC (12:17)
[2025-03-12] MEDS: 0.9% Saline Lock 10 ML Syringe IV (12:18)
[2025-03-12] MEDS: Na Biphos/Potassium Phosphate PACKET 1 PACKET PO (12:18)
[2025-03-12 13:30] VITALS: BP 145/81; PULSE 88; RESP 16; TEMP 36.6; O2SAT 98
[2025-03-28 14:08] LABS: ACCA 3 units (0-90); ALCA 7 units (0-60); AMCA 22 units (0-100); Carcinoembryonic Antigen 2.4 ng/mL (0.0-4.7); Cytoplasmic Ab (C-ANCA) <1:20 titer (Neg:<1:20); Immunoglobulin A < 5 mg/dL (61-437); Perinuclear Ab (P-ANCA) <1:20 titer (Neg:<1:20)
== END 2025-03-12 13:41 | disposition home or self-care (01) | DRG 392 ==
LOC: ED 15:45 → MS3 16:35
PROVIDERS: Internal Medicine Gastroenterology; Student in an Organized Health Care Education/Training Program; Admitting Provider Hospitalist; Emergency Provider Emergency Medicine; PCP Student in an Organized Health Care Education/Training Program; Visit Provider Internal Medicine
PROC: 0DJD8ZZ Inspection of Lower Intestinal Tract, Via Natural or Artificial Opening Endoscopic (ICD-10-PCS; CPT 45378; principal; 2025-03-10 16:55)
DX: K59.89 Other specified functional intestinal disorders (principal); E87.1 Hypo-osmolality and hyponatremia; E83.39 Other disorders of phosphorus metabolism; G40.909 Epilepsy, unspecified, not intractable, without status epilepticus; I10 Essential (primary) hypertension; E03.9 Hypothyroidism, unspecified; K76.0 Fatty (change of) liver, not elsewhere classified; Z68.39 Body mass index [BMI] 39.0-39.9, adult; Z95.828 Presence of other vascular implants and grafts; E78.00 Pure hypercholesterolemia, unspecified; K80.20 Calculus of gallbladder without cholecystitis without obstruction; E87.6 Hypokalemia; K21.9 Gastro-esophageal reflux disease without esophagitis; K31.89 Other diseases of stomach and duodenum; E66.812 Obesity, class 2; Z79.01 Long term (current) use of anticoagulants; Z79.890 Hormone replacement therapy; Z79.899 Other long term (current) drug therapy; Z86.718 Personal history of other venous thrombosis and embolism
CPT/HCPCS: 36415; 74177; 76705; 80048; 80053; 81001; 82105; 82378; 82784; 82962; 83516; 83630; 83690; 83735; 83935; 84100; 84300; 85025; 85027; 85610; 85652; 85730; 86036; 86037; 86140; 86225; 86235; 86255; 86301; 86671; 87177; 87209; 87506; 88305; 88312; 93005; 94668; 97116; 97162; 97166; 97530; 97535; 99285; Q9967; A4216; J2354; J2405

== ENCOUNTER 2025-03-21 23:37 | Observation (INO) | payer MEDICARE, SELFPAY ==
[2025-03-21 23:37] VITALS: BP 146/84; PULSE 91; RESP 18; TEMP 37; O2SAT 97; BMI 38.0
[2025-03-21 23:50] LABS: Mucous, Urine 0 SEEN /hpf (<or=2+); Red Blood Cells-Urine 0 SEEN /hpf (0-5); Squamous Epithelial Cells - UA 0 SEEN /hpf (0-5)
[2025-03-21 23:55] LABS: Color, Urine Yellow (Yellow); Glucose, Dipstick Normal (Normal); Ketone-Dipstick Negative (Negative); Leukocyte Esterase-Dipstick Negative /ul (Negative); Nitrite-Dipstick Negative (Negative); Occult Blood-Urine Negative /ul (Negative); Protein-Dipstick Negative (Negative); Specific Gravity, Urine 1.020 (1.002-1.030); Urine Bilirubin Dipstick Negative (Negative)
[2025-03-22] VITALS (12 sets, daily range): BP systolic 116–146; BP diastolic 61–80; PULSE 71–81; RESP 12–20; TEMP 36.1–37.1; O2SAT 96–100; BMI 38.0
--- OUTSIDE RECORDS SUMMARY | 2025-03-22 00:03 | XMS RPT_ITS | CCD ---
Author Organization [facility] Care Team Providers Care Splitting Machine Operator Helper Name Role Phone Hari Oneill DO Primary Care Provider Amelia Bennett RN Unavailable Dr. Hari Oneill Primary Care Provider Dr. Hari Oneill Referring Provider Dr. Eder Nowak Attending Provider Hari Oneill DO Primary Care Provider Amelia Bennett RN Unavailable [phone] Hari Oneill DO Primary Care Provider Amelia Bennett RN Unavailable Amelia Bennett RN Unavailable Amelia Bennett RN Unavailable Hari Oneill DO Primary Care Provider Amelia Bennett RN Unavailable SUYAPA LIRA Referring Unavailable HARI ONEILL Primary Care Unavailable Rivera JUNIOR SYSTEMS ANALYST.Dai DAWSON Unavailable Soraya JUNIOR SYSTEMS ANALYST.Suyapa DAWSON Unavailable Rivera JUNIOR SYSTEMS ANALYST.Dai DAWSON Unavailable Tico JUNIOR SYSTEMS ANALYST.Paulie DAWSON Unavailable HARI ONEILL Primary Care Unavailable MARIA TERESA EGAN Attending Unavailable Dr. Hari Oneill DO Primary Care Provider Dr. Khang Osuna MD Emergency Provider Rashid SALDANA, Dr. Gonzalez Attending Provider Rashid SALDANA, Dr. Gonzalez Admit Provider Rashid SALDANA, Dr. Gonzalez Other Provider Romy SALDANA, Dr. Danae Jenkins Attending Provider Judy SALDANA, Dr. Nettles Other Provider Romy SALDANA, Dr. Danae Jenkins Other Provider Francisco BLANCAS, Dr. Gunn Attending Provider Judy SALDANA, Dr. Nettles Attending Provider Dinah Gibson PA-C Attending Provider Rustam Warren MD Emergency Provider [phone] Duncan Rashid DO Admit Provider Dr. Duncan Rashid DO Attending Provider Rustam Warren MD Emergency Provider Dr. Duncan Rashid DO Admit Provider Dr. Duncan Rashid DO Attending Provider Dr. Duncan Rashid DO Other Provider Susan SALDANA, Dr. Vincent Attending Provider Unavaila jaida Davis MD, Dr. Vincent Other Provider Unavailable ONEILL, HARI L Primary Care Unavailable SORAYA, SUYAPA Attending Unavailable ONEILL, HARI L Primary Care Unavailable SORAYA, SUYAPA Referring Unavailable SORAYA, SUYAPA Attending Unavailable ONEILL, HARI L Primary Care Unavailable ALEXUS GALLOWAY Referring Unavailable ONEILL, HARI L Primary Care Unavailable PIO MCCLELLAND Referring Unavailable ONEILL, HARI L Primary Care Unavailable JAYESH HERNANDEZ Attending Unavailable ONEILL, HARI L Primary Care Unavailable SORAYA, SUYAPA Referring Unavailable ONEILL, HARI L Primary Care Unavailable SORAYA, SUYAPA Referring Unavailable ONEILL, HARI L Primary Care Unavailable SORAYA, SUYAPA Referring Unavailable ONEILL, HARI L Primary Care Unavailable BERE HAYS Referring Unavailable MARJAN TARIQ Attending Unavailable ONEILL, HARI L Primary Care Unavailable JAYESH HERNANDEZ Referring Unavailable JAYESH HERNANDEZ Attending Unavailable ONEILL, HARI L Primary Care Unavailable SORAYA, SUYAPA Referring Unavailable EYAD NOVOA Attending Unavailable ONEILL, HARI L Primary Care Unavailable ADAMS, SKYLER Referring Unavailable ADAMSROXANNEI Attending Unavailable ONEILL, HARI L Primary Care Unavailable ADAMS, SKYLER Attending Unavailable ONEILL, HARI L Primary Care Unavailable ONEILL, HARI L Primary Care Unavailable TICOPAULIE Referring Unavailable ONEILL, HARI L Primary Care Unavailable BEATRIZ MONCADA Referring Unavailab le ONEILL, HARI L Primary Care Unavailable SELF Referring Unavailable PAULIE GERONIMO Attending Unavailable ONEILL, HARI L Primary Care Unavailable ALEXUS GALLOWAY Referring Unavailable ONEILL, HARI L Primary Care Unavailable BERE HAYS Attending Unavailable ONEILL, HARI L Primary Care Unavailable SELF Referring Unavailable BEATRIZ MONCADA Attending Unavailab RENEE Loyola Attending Unavailable ONEILL, HARI L Primary Care Unavailable ONEILL, HARI L Primary Care Unavailable ONEILL, HARI L Referring Unavailable ONEILL, HARI L Primary Care Unavailable SELF Referring Unavailable ONEILL, HARI L Attending Unavailable ONEILL, HARI L Primary Care Unavailable SELF Referring Unavailable XAVI XIE Attending Unavailable ONEILL, HARI L Primary Care Unavailable SUPPANALEXUS A Referring Unavailable ONEILL, HARI L Primary Care Unavailable SORAYA, SUYAPA Referring Unavailable AUDRA CHAUHAN Attending Unavailable Duncan Rashid Admitting Unavailable Duncan Rashid Attending Unavailable Duncan Rashid Consulting Unavailable Oneill, Hari Primary Care Unavailable Duncan Rashid Attending Unavailable Rachid Duncan Consulting Unavailable Rachid Duncan Admitting Unavailable Oneill, Hari Primary Care Unavailable Romy, Danae Alice Consulting Unavailable Carlton Davis Attending Unavailable Carlton Davis Consulting Unavailable Rashid, Lisa Consulting Unavailable Mike, Lisa Admitting Unavailable Koram, Danae Alice Attending Unavailable Oneill, Hari Primary Care Unavailable Robotham, Yoon Consulting Unavailable Rachid Duncan Admitting Unavailable Rachid Duncan Consulting Unavailable Carlton Davis Attending Unavailable Oneill, Hari Primary Care Unavailable Koram, Danae Alice Consulting Unavailable Mike, Lisa Admitting Unavailable Mike, Lisa Consulting Unavailable Friend, Luis A Attending Unavailable Oneill, Hari Primary Care Unavailable Robotham, Yoon Consulting Unavailable Koram, Danae Alice Consulting Unavailable Dinah Gibson Attending Unavailable Francisco, Luis A Attending Unavailable Koram, Danae Alice Consulting Unavailable Koram, Danae Alice Attending Unavailable Lisa Mike Attending Unavailable Oneill, Hari Primary Care Unavailable Koram, Danae Alice Attending Unavailable Oneill, Hari Primary Care Unavailable Patti Perez Attending Unavailable Oneill, Hari Referring Unavailable Friend, Luis A Attending Unavailable Oneill, Hari Primary Care Unavailable Robotham, Yoon Attending Unavailable Bruce Nelson Consulting Unavailable Devin Castellanos Attending Unavailable Oneill, Hari Primary Care Unavailable Devin Castellanos Referring Unavailable Francisco, Luis A Attending Unavailable Koram, Danae Alice Referring Unavailable Allergies Allergy Classification Reported Allergen(s) Allergy Type Date of Onset Reaction(s) Facility Doxycycline (2 sources) Doxycycline Drug Allergy 06-21-2019 GI Upset [facility] Lactase (2 sources) Lactase Drug Allergy 05-24-2022 Diarrhea [facility] (20 sources) Doxycycline; Translations: [DOXYCYCLINE] Drug Allergy 06-21-2019 GI [facility] Work Phone: (20 sources) Lactase; Translations: [LACTASE] Drug Allergy 05-24-2022 Diarrhea [facility] Medications Current Medications Medication Drug Class(es) Dates Sig (Normalized) Sig (Original) Administered Medications Medication Order MAR Action Action Date Dose Rate Site tuberculin skin test, unspecified formulation Given 02/04/2014 0.1 mL tuberculin skin test, unspecified formulation Given 02/13/2014 0.1 mL (2 sources) Administered Medications Medication Order MAR Action Action Date Dose Rate Site tuberculin skin test, unspecified formulation Given 02/04/2014 0.1 mL tuberculin skin test, unspecified formulation Given 02/13/2014 0.1 mL amoxicillin 875 mg / clavulanate 125 mg oral tablet (13 sources) Penicillin-class Antibacterial Start: 03-12-2025 End: 03-22-2025 take 1 tablet by mouth twice daily amoxicillin-clavul anate potassium (AUGMENTIN) 875-125 mg per tablet Indications: Chronic pseudo-obstruction of colon Take 1 tablet by mouth two times a day. 03/12/2025 03/22/2025 Active Start: 06-10-2024 End: 06-24-2024 take 1 tablet by mouth twice daily amoxicillin-clavulanate potassium (AUGMENTIN) 875-125 mg per tablet Indications: Cellulitis of lower extremity, unspecified laterality , Bilateral leg edema Take 1 tablet by mouth two times a day for 14 days. 28 tablet 06/10/2024 06/24/2024 Active Start: 11-28-2022 End: 12-08-2022 take 1 tablet by mouth twice daily amoxicillin-clavulanic acid (AUGMENTIN) 875-125 mg per tablet Take 1 tablet by mouth twice daily for 10 days. 20 tablet 0 11/28/2022 12/08/2022 Active Comment on above: Take 1 tablet by cheryl twice daily for 10 days. Blood-Glucose Meter monitoring kit (1 source) Start: 2 End: 2 Blood-Glucose Meter monitoring kit Indications: Hypoglycemia Glucose Meter of Choice - Kit - Dx: Other DM Code E16.2 1 Each 0 07/10/2022 07/11/2022 Active Comment on above: Glucose Meter of Cho ice - Kit - Dx: Other DM Code E16.2 cephalexin 500 mg oral capsule (9 sources) Cephalosporin Antibacterial Start: 5 End: 5 take 1 capsule by mouth four times daily cephALEXin (KEFLEX) 500 mg capsule Take 1 capsule by mouth four times daily for 10 days. 40 capsule 02/10/2025 02/20/2025 Active Start: 06-10-2024 End: 06-24-2024 take 1 capsule by mouth four times daily cephALEXin (KEFLEX) 500 mg capsule Indications: Cellulitis of lower extremity, unspecified laterality , Bilateral leg edema Take 1 capsule by mouth four times daily for 14 days. 56 capsule 06/10/2024 06/24/2024 Active Start: 05-20-2024 End: 06-02-2024 cephALEXin (KEFLEX) 500 mg c apsule Indications: Cellulitis of lower extremity, unspecified laterality , Bilateral leg edema Take 1 capsule by mouth four times daily for 4 days. Take with food. Continue on with this medication for a total of 14 days treatment 16 capsule 05/29/2024 06/02/2024 Active FLUoxetine 40 mg oral capsule (20 sources) Serotonin Reuptake Inhibitor Start: 07-11-2023 End: 02-27-2025 take 1 capsule by mouth once daily in the morning FLUoxetine (PROZAC) 40 mg capsule Indications: Dysthymia Take 1 capsule by mouth once daily. in the morning for mood 90 capsule 1 01/17/2024 Active Start: 10-10-2021 End: 07-11-2023 take 1 capsule by mouth once daily in the morning FLUoxetine (PROZAC) 20 mg capsule Indications: Dysthymia Take 1 capsule by mouth once daily. in the morning for mood 90 capsule 1 03/14/2023 07/11/2023 Discontinued Comment on above: Take [address] [facility] once daily. in the morning for mood furosemide 40 mg oral tablet (20 sources) Loop Diuretic Start: 10-21-2024 take 1 tablet by mouth once daily after lunch furosemide (LASIX) 20 mg tablet Indications: Venous stasis dermatitis of both lower extremities Take 1 tablet by mouth daily after lunch. 90 tablet 1 10/21/2024 Active Start: 11-12-2020 End: 03-18-2025 take 1 tablet by mouth once daily in the morning furosemide (LASIX) 40 mg tablet Indications: Bilateral leg edema , Venous stasis dermatitis of both lower extremities Take 1 tablet by mouth once daily. Take in the morning 90 tablet 3 03/18/2025 Active Comment on above: Take 1 tablet by cheryl once daily. ibuprofen 600 mg oral tablet (4 sources) Nonsteroidal Anti-inflammatory Drug Start: 4 take 1 tablet by mouth every six hours as needed for pain Ibuprofen 600 mg tablet Active 600 mg PO EVERY 6 HOURS as needed for fever or pain March 21, 2024 12:00am L.acidophilus-L.rha mnosus (PROBIOTIC) 15 billion cell capsule (20 sources) Start: take 1 capsule by mouth once daily at bedtime L.acidophilus-L.rham nosus (PROBIOTIC) 15 billion cell capsule Indications: Cellulitis of lower extremity, unspecified laterality , Bilateral leg edema Take 1 capsule by mouth daily at bedtime. 30 capsule 2 06/10/2024 Active Start: 06-10-2024 End: 09-08-2024 take 1 capsule by mouth once daily at bedtime L.acidophilus-L.rhamnosus (PROBIOTIC) 15 billion cell capsule Indications: Cellulitis of lower extremity, unspecified laterality , Bilateral leg edema Take 1 capsule by mouth daily at bedtime. 30 capsule 2 06/10/2024 09/08/2024 Active lacosamide 200 mg oral tablet (20 sources) Anti-epileptic Agent Start: 03-14-2023 End: 05-18-2025 take 1 tablet by mouth once daily at lunch, then take 1 tablet by mouth once daily in the evening lacosamide (VIMPAT) 200 mg Indications: Partial epilepsy, with intractable epilepsy, pharmacoresistant (HCC) Take 1 tablet by mouth daily with lunch AND 1 tablet every evening. Do all this for 180 days. 180 tablet 1 11/19/2024 05/18/2025 Active Start: 09-17-2019 End: 05-21-2023 take 1 tablet by mouth twice daily Lacosamide 200 mg tablet Active 200 mg PO TWICE A DAY September 17, 2019 1:00am SEIZURES Comment on above: Take 1 tablet by cheryl th twice daily for 180 days. Take 1 tablet by cheryl th daily with lunch AND 1 tablet every evening. Do all this for 180 days. lamoTRIgine 200 mg oral tablet (20 sources) Mood Stabilizer, Anti-epileptic Agent Start: End: take 1 tablet by mouth once daily at lunch, then take 1 tablet by mouth once daily in the evening lamoTRIgine (LAMICTAL) 200 mg tablet Indications: Partial epilepsy, with intractable epilepsy, pharmacoresistant (HCC) Take 1 tablet by mouth daily with lunch AND 1 tablet every evening. 180 tablet 3 05/14/2024 05/14/2025 Active Start: 11-06-2022 End: 03-14-2023 lamoTRIgine (LAMICTAL) 25 mg tablet Indications: Partial epilepsy, with intractable epilepsy, pharmacoresistant (HCC) TAKE 2 TABLETS TWICE DAILY. TAKE IN ADDITION TO 200MG TABLETS FOR TOTAL DOSE OF 250MG TWICE DAILY. 360 tablet 1 12/06/2022 03/14/2023 Discontinued Start: 03-01-2021 End: 08-22-2022 take 2 tablets by mouth twice daily lamoTRIgine (LAMICTAL) 25 mg tablet Indications: Partial epilepsy, with intractable epilepsy, pharmacoresistant (HCC) Take 2 tablets by mouth twice daily. Take in addition to 200mg tablets for total dose of 250mg twice daily. 360 tablet 07/28/2021 10/11/2021 Discontinued Start: 03-12-2014 End: 06-04-2023 take 1 tablet by mouth twice daily Lamotrigine (Lamictal) 200 MG tablet Active 200 mg PO TWICE A DAY March 12, 2014 12:00am SEIZURES Comment on above: Take 2 tablets (50mg ) at bedtime for 7 days. Then take 2 tablets (50mg) twice daily and continue. Take in addition to 200mg tablets. TAKE 1 TABLET TWICE DAILY TAKE 2 TABLETS TWICE DAILY. TAKE IN ADDITION TO 200MG TABLETS FOR TOTAL DOSE OF 250MG TWICE DAILY. Take 2 tablets by mo uth twice daily. Take in addition to 200mg tablets for total dose of 250mg twice daily. Take 2 tablets by mo uth twice daily. Take with 200 mg tablets for total of 250 mg twice daily Take 1 tablet by cheryl th twice daily. Take 1 tablet by cheryl th daily with lunch AND 1 tablet every evening. lansoprazole 30 mg delayed release oral capsule (20 sources) Proton Pump Inhibitor Start: End: take 1 capsule by mouth once daily lansoprazole (PREVACID) 30 mg capsule Take 1 capsule by mouth once daily. 90 capsule 3 10/28/2024 Active levETIRAcetam 750 mg oral tablet (20 sources) Start: 3 End: take 2 tablets by mouth twice daily levETIRAcetam (KEPPRA) 750 mg tablet Take 2 tablets by mouth two times a day. 360 tablet 3 05/14/2024 05/14/2025 Active Start: 04-20-2023 End: 07-19-2023 take 2 tablets by mouth twice daily levETIRAcetam (KEPPRA) 750 mg tablet 2 tablets by ORAL/FEEDING TUBE route twice daily. 360 tablet 0 04/20/2023 07/19/2023 Active Comment on above: 2 tablets by ORAL/FE EDING TUBE route twice daily. Take 2 tablets by mo uth twice daily. Take 2 tablets by mo uth two times a day. levothyroxine sodium 0.088 mg oral tablet (20 sources) l-Thyroxine Start: 03-11-2024 Levothyroxine 88 mcg tablet Active 75 ug PO DAILY March 11, 2024 12:00am THYROID Start: 05-09-2023 End: 07-21-2025 take 1 tablet by mouth once daily before breakfast for thyroid dysfunction levothyroxine (LEVOXYL) 88 mcg tablet Indications: Hypothyroidism, acquired Take 1 tablet by mouth daily before breakfast. Take on empty stomach 30 minutes before eating. For Thyroid 90 tablet 1 01/22/2025 07/21/2025 Active Start: 10-11-2021 End: 05-09-2023 take 1 tablet by mouth once daily before breakfast for thyroid dysfunction levothyroxine (LEVOXYL) 75 mcg tablet Indications: Hypothyroidism, acquired Take 1 tablet by mouth daily before breakfast. Take on empty stomach 30 minutes before eating. For Thyroid 90 tablet 1 11/27/2022 05/09/2023 Discontinued Start: 07-11-2021 End: 10-11-2021 take 1 tablet by mouth once daily before breakfast for thyroid dysfunction levothyroxine (LEVOXYL) 50 mcg tablet Indications: Hypothyroidism, acquired Take 1 tablet by mouth daily before breakfast. Take on empty stomach 30 minutes before eating. For Thyroid 90 tablet 3 10/10/2021 10/11/2021 Discontinued Comment on above: Take 1 tablet by cheryl th daily before breakfast. Take on empty stomach 30 minutes before eating. For Thyroid meloxicam 15 mg oral tablet (20 sources) Nonsteroidal Anti-inflammatory Drug Start: take 1 tablet by mouth once daily at mealtime meloxicam (MOBIC) 15 mg tablet Take 1 tablet by mouth once daily. With food. 90 tablet 1 10/29/2024 Active Start: 03-10-2024 End: 09-06-2024 take 1 tablet by mouth once daily Meloxicam 15 mg tablet Discontinued 15 mg PO DAILY March 11, 2024 12:00am March 19, 2024 1:53pm ARTHRITIS Start: 09-28-2023 End: 12-27-2023 take 1 tablet by mouth once daily at mealtime meloxicam (MOBIC) 15 mg tablet Indications: Bilateral leg pain Take 1 tablet by mouth once daily. With food. 90 tablet 1 09/28/2023 12/27/2023 Active Start: 04-02-2023 End: 07-30-2023 take 1 tablet by mouth once daily at mealtime meloxicam (MOBIC) 15 mg tablet Indications: Bilateral leg pain Take 1 tablet by mouth once daily. With food. 90 tablet 1 05/01/2023 07/30/2023 Active Comment on above: Take 1 tablet by cheryl th once daily. With food. metoclopramide 5 mg oral tablet (4 sources) Dopamine-2 Receptor Antagonist Start: 03-12-20 End: 04-12-20 take 1 tablet by mouth every six hours metoclopramide HCl (REGLAN) 5 mg tablet Indications: Chronic pseudo-obstruction of colon Take 5 mg by mouth every 6 hours. 03/12/2025 04/12/2025 Active mupirocin 0.02 mg/mg topical ointment (6 sources) RNA Synthetase Inhibitor Antibacterial Start: 06-10-20 End: 06-20-20 mupirocin (BACTROBAN) 2 % ointment Indications: Cellulitis of lower extremity, unspecified laterality , Bilateral leg edema Apply 1 application to affected area once daily for 10 days. Apply to all open sores on your legs 30 g 1 06/10/2024 06/20/2024 Active Start: 05-20-2024 End: 05-30-2024 mupirocin (BACTROBAN) 2 % oi ntment Indications: Cellulitis of lower extremity, unspecified laterality , Bilateral leg edema Apply 1 application to affected area once daily for 10 days. Apply to all open sores on your legs 30 g 1 05/20/2024 05/30/2024 Active Non-Adherent Bandage (CURITY ABDOMINAL PAD) 5 X 9 bndg (20 sources) Start: 05-20-2024 Non-Adherent B andage (CURITY ABDOMINAL PAD) 5 X 9 bndg Indications: Cellulitis of lower extremity, unspecified laterality , Bilateral leg edema Apply 1 application to affected area once daily. 14 Each 1 05/20/2024 Active Non-Adherent Bandage 4 X 4 bndg (3 sources) Start: 05-20-2024 End: 06-03-2024 Non-Adherent Bandage 4 X 4 bndg Indications: Cellulitis of lower extremity, unspecified laterality , Bilateral leg edema Apply 1 application to affected area once daily for 14 days. 14 Each 1 05/20/2024 06/03/2024 Active petrolatum 0.41 mg/mg topica l ointment (20 sources) Start: 03-18-2025 white petrolat um (AQUAPHOR ORIGINAL) 41 % topical ointment Indications: Venous stasis dermatitis of both lower extremities Apply to affected area once daily. 396 g 1 03/18/2025 Active Start: 02-05-2024 End: 03-18-2025 white petrolatum (AQUAPHOR O RIGINAL) 41 % topical ointment Indications: Avulsion of toenail of left foot , Wound of right lower extremity, subsequent encounter Apply to affected area two times a day. 396 g 1 02/05/2024 03/18/2025 Discontinued potassium chloride 1.33 meq/ml oral solution (20 sources) Start: 02-27-2025 take 10 mEq by mouth once daily Potassium Chloride 20 mEq/15 mL liquid Active 10 meq PO DAILY February 27, 2025 12:00am supplement Start: 05-05-2024 End: 05-05-2025 take 1 tablet by mouth once daily at breakfast potassium chloride (K-TAB) 10 mEq tablet Indications: Hypokalemia Take 1 tablet by mouth daily with breakfast. 90 tablet 3 05/05/2024 05/05/2025 Active Start: 03-11-2024 End: 02-27-2025 take 20 mEq by mouth twice daily Potassium Chloride 20 mEq/15 mL liquid Discontinued 20 meq PO TWICE A DAY 450 0 March 11, 2024 12:00am February 27, 2025 5:11pm Potassium, Sodium Phosphates 280-160-250 mg Powder In Packet (1 source) Start: 03-12-2025 Potassium, Sodium Phosphates 280-160-250 mg Powder In Packet Active 1 NMA PO TWICE A DAY 20 10 0 March 12, 2025 12:00am potassium-sodium phosphates (PHOS-NAK) 280-160-250 mg pwpk (3 sources) Start: 03-12-2025 End: 03-22-2025 take 1 dose by mouth twice daily potassium-sodium phosphates (PHOS-NAK) 280-160-250 mg pwpk Indications: Hypokalemia , Hyponatremia Take 1 packet by mouth two times a day. 03/12/2025 03/22/2025 Active pyridostigmine bromide 30 mg oral tablet (4 sources) Start: 03-12-2025 take 1 tablet by mouth once daily Pyridostigmine [place] 30 mg tablet Active 30 mg PO DAILY 30 0 March 12, 2025 12:00am sulfamethoxazole 800 mg / trimethoprim 160 mg oral tablet (2 sources) Dihydrofolate Reductase Inhibitor Antibacterial, Sulfonamide Antimicrobial Start: 01-29-2024 End: 02-08-2024 take 1 tablet by mouth twice daily sulfamethoxazole-t rimethoprim (BACTRIM DS) 800-160 mg per tablet Indications: Leg wound, right, initial encounter , Avulsion of toenail of left foot Take 1 tablet by mouth two times a day for 10 days. 20 tablet 0 01/29/2024 02/08/2024 Active tamsulosin hydrochloride 0.4 mg oral capsule (11 sources) alpha-Adrenergic Jennifer Start: 02-10-2025 End: 03-12-2025 take 1 capsule by mouth once daily at bedtime tamsulosin (FLOMAX) 0.4 mg Take 1 capsule by mouth daily at bedtime. 30 capsule 02/10/2025 Active triamcinolone acetonide 1 mg/ml topical cream (19 sources) Corticosteroid Start: 10-21-2024 triamcinolone acetonide (KENALOG) 0.1 % cream Indications: Venous stasis dermatitis of both lower extremities Apply to affected area daily at bedtime. On legs for stasis dermatitis 453 g 1 10/21/2024 Active warfarin sodium 4 mg oral tablet (20 sources) Vitamin K Antagonist Start: 03-19-2025 End: 04-18-2025 warfarin (COUMADIN) 4 mg tablet Take 2 tablets by mouth daily as directed. Total 8mg daily, starting 03/20 60 tablet 03/19/2025 04/18/2025 Active Start: 03-19-2025 End: 03-19-2025 take 0.5 tablet by mouth once daily warfarin (COUMADIN) 5 mg tablet Take 0.5 tablets by mouth once daily for 1 day. 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) , Anticoagulation management encounter Hospital discharge 03/12 says 7.5mg every day 60 tablet 1 03/18/2025 03/19/2025 Discontinued Start: 03-02-2025 End: 03-18-2025 warfarin (COUMADIN) 5 mg tab let Indications: long term care pharmacist current use of anticoagulant therapy , Other pulmonary embolism without acute cor pulmonale, unspecified chronicity (HCC) 5 mg Tues/Fri, 7.5 mg all other days or as directed 60 tablet 1 03/02/2025 03/18/2025 Discontinued Start: 03-02-2025 End: 03-18-2025 warfarin (COUMADIN) 7.5 mg t ablet 5 mg Tues/Fri, 7.5 mg all other days or as directed 60 tablet 1 03/02/2025 03/18/2025 Discontinued Start: 05-13-2024 End: 02-27-2025 warfarin (COUMADIN) 5 mg tab let Indications: long term care pharmacist current use of anticoagulant therapy , Other pulmonary embolism without acute cor pulmonale, unspecified chronicity (HCC) 5 mg Tues/Fri, 7.5 mg all other days or as directed 60 tablet 1 05/13/2024 02/27/2025 Discontinued Start: 05-13-2024 End: 02-27-2025 warfarin (COUMADIN) 7.5 mg t ablet 5 mg Tues/Fri, 7.5 mg all other days or as directed 05/13/2024 02/27/2025 Discontinued Start: 05-01-2023 End: 05-13-2024 take 7.5 mg by mouth every week, then take 2 tablets by mouth every week warfarin (COUMADIN) 5 mg tablet Indications: long term care pharmacist current use of anticoagulant therapy , Other pulmonary embolism without acute cor pulmonale, unspecified chronicity (HCC) Take 7.5mg Mon, Wed, Fri, Sat, Sun of this next week. He should take 10mg . Recheck INR level in 1 week. By mouth. 60 tablet 1 05/01/2023 05/13/2024 Discontinued (Adjust Sig - Block E-Cancel) Start: 04-04-2023 End: 04-06-2023 take 7.5 mg by mouth every week, then take 2 tablets by mouth every week warfarin (COUMADIN) 5 mg tablet Indications: halfway current use of anticoagulant therapy , Other pulmonary embolism without acute cor pulmonale, unspecified chronicity (HCC) As of 04/04/2023: Take 7.5mg , Sunday, Sunday of this next week. He should take 10mg Sunday, Sunday, and Sunday. Recheck INR level in 1 week. By mouth. 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 60 tablet 1 04/02/2023 04/04/2023 Discontinued Start: 06-22-2022 End: 04-02-2023 warfarin (COUMADIN) 5 mg tab let Indications: halfway current use of anticoagulant therapy , Other pulmonary embolism without acute cor pulmonale, unspecified chronicity (HCC) As of 06/22/2022: Take 2.5 tablets (12.5mg) by mouth , Sunday, Sunday, Sunday. Recheck INR on Tuesday 06/26. 20 tablet 06/22/2022 04/02/2023 Discontinued Start: 09-12-2021 End: 05-05-2025 take 1 tablet by mouth once daily Warfarin 7.5 mg tablet Active 7.5 mg PO DAILY September 12, 2021 1:00am BLOOD THINNER Start: 09-12-2021 End: 03-11-2024 take 1 tablet by mouth once Warfarin 5 mg tablet Disco ntinued 5 mg PO every Sunday, Sunday, and Sunday September 12, 2021 1:00am March 11, 2024 4:44pm Start: 07-12-2021 End: 01-04-2022 warfarin (COUMADIN) 5 mg tab let Indications: halfway current use of anticoagulant therapy , Other pulmonary embolism without acute cor pulmonale, unspecified chronicity (HCC) Take 7.5 mg T//Sun/Sun, 5 mg all other days or as directed 90 tablet 1 10/26/2021 01/04/2022 Discontinued Start: 09-19-2020 End: 07-12-2021 warfarin (COUMADIN) 5 mg tab let Indications: halfway current use of anticoagulant therapy , Other pulmonary embolism without acute cor pulmonale, unspecified chronicity (HCC) Take 5mg daily 90 tablet 3 09/19/2020 07/12/2021 Discontinued Start: 09-17-2019 End: 09-18-2019 Warfarin Discontinued 7 MG P O TUTHSA September 17, 2019 4:00pm September 18, 2019 12:27pm Start: 09-17-2019 End: 09-18-2019 Warfarin 5 MG tablet Discont inued 7 mg PO TUTHSA September 17, 2019 1:00am September 18, 2019 12:27pm BLOOD THINNER Start: 03-12-2014 End: 09-18-2019 Warfarin (Jantoven) 5 MG tab let Discontinued 6 mg PO SUMOWEFR March 12, 2014 12:00am September 18, 2019 12:27pm BLOOD THINNER Comment on above: Take 7.5 mg T//Sat /Sun, 5 mg all other days or as directed TAKE 1 AND 1/2 TABLE TS (7.5MG) ON , , SAT, SUN AND 1 TABLET (5MG) ALL OTHER DAYS OR DIRECTED As of 06/22/2022: Ta ke 2.5 tablets (12.5mg) by mouth , Sunday, Sunday, Sunday. Recheck INR on Tuesday 06/26. Take 7.5mg by mouth daily. As of 04/04/2023: Woody e 7.5mg , Sunday, Sunday of this next week. He should take 10mg Sunday, Sunday, and Sunday. Recheck INR level in 1 week. By mouth. Take 1 tablet by cheryl th once daily. Take 7.5mg Sun, Sun, Sun, Sat, Sun of this next week. He should take 10mg . Recheck INR level in 1 week. By mouth. zonisamide 100 mg oral capsule (20 sources) Anti-epileptic Agent Start: 4 End: 4 take 1 capsule by mouth once daily in the evening Zonisamide 100 mg capsule Discontinued 200 mg PO EVERY EVENING March 11, 2024 12:00am March 19, 2024 1:54pm SEIZURES Start: 03-14-2023 End: 05-14-2025 take 4 capsules by mouth once daily after lunch, then take 2 capsules by mouth once daily at bedtime zonisamide (ZONEGRAN) 100 mg capsule Indications: Partial epilepsy, with intractable epilepsy, pharmacoresistant (HCC) Take 4 capsules by mouth daily after lunch AND 2 capsules daily at bedtime. 540 capsule 3 05/14/2024 05/14/2025 Active Start: 05-24-2022 End: 05-24-2023 take 3 capsules by mouth once daily in the morning, then take 3 capsules by mouth once daily in the evening zonisamide (ZONEGRAN) 100 mg capsule Take 3 capsules by mouth every morning AND 3 capsules every evening. 540 capsule 3 05/24/2022 03/14/2023 Discontinued Start: 11-09-2021 End: 11-09-2022 take 2 capsules by mouth once daily in the morning, then take 3 capsules by mouth once daily in the evening zonisamide (ZONEGRAN) 100 mg capsule Take 2 capsules by mouth every morning AND 3 capsules every evening. 450 capsule 3 11/09/2021 05/24/2022 Discontinued Start: 05-13-2020 End: 11-09-2021 zonisamide (ZONEGRAN) 100 mg capsule TAKE 2 CAPSULES TWICE DAILY 360 capsule 3 03/21/2021 11/09/2021 Discontinued Start: 09-17-2019 take 300 mg by mouth once daily Zonisamide Active 300 MG PO DAILY September 17, 2019 4:05pm Start: 09-17-2019 take 1 capsule by mo uth twice daily Zonisamide 100 MG capsule Active 100 mg PO TWICE A DAY September 17, 2019 1:00am SEIZURES Comment on above: TAKE 2 CAPSULES TWIC E DAILY Take 2 capsules by m outh every morning AND 3 capsules every evening. Take 3 capsules by m outh every morning AND 3 capsules every evening. Take 4 capsules by m outh daily with lunch AND 2 capsules every evening. TAKE 4 CAPSULES EVER Y DAY WITH LUNCH AND TAKE 2 CAPSULES EVERY EVENING Completed/Discontinued Medications Medication Drug Class(es) Dates Sig (Normalized) Sig (Original) Benzocaine (1 source) Standardized Chemical Allergen Start: End: 1 [place], TOPICAL, DIRECTED, Starting on Sun09/30/24 at 1230, Until Sun09/30/24 at 1629, Dosing as directed for intraprocedural use only - Pharmaceutical Waste: Aerosol -, Intraprocedure brivaracetam 100 mg oral tablet (20 sources) Start: 1 End: 3 take 1 tablet by mouth twice daily brivaracetam (BRIVIACT) 100 mg tablet Indications: Partial epilepsy, with intractable epilepsy, pharmacoresistant (HCC) Take 1 tablet by mouth twice daily for 180 days. 180 tablet 1 08/01/2021 10/12/2022 Discontinued Comment on above: Take 1 tablet by cheryl twice daily for 180 days. buPROPion hydrochloride 75 mg oral tablet (20 sources) Aminoketone Start: 3 End: 3 take 1 tablet by mouth twice daily buPROPion (WELLBUTRIN) 75 mg tablet Take 1 tablet by mouth twice daily. 180 tablet 1 08/29/2022 02/22/2023 Discontinued Comment on above: Take 1 tablet by cheryl twice daily. calcium chloride 0.0014 meq/ml / potassium chloride 0.004 meq/ml / sodium chloride 0.103 meq/ml / sodium lactate 0.028 meq/ml injectable solution (1 source) Start: 5 End: 5 take 30 mL intravenously every hour 30 mL/hr, INTRAVENOUS, CONTINUOUS, Starting on Sun09/30/24 at 1200, Until Sun09/30/24 at 1322, Preprocedure citalopram 40 mg oral tablet (5 sources) Serotonin Reuptake Inhibitor Start: 0 End: 2 take 1 tablet by mouth once daily Citalopram 40 mg tablet Discontinued 40 mg PO DAILY September 17, 2019 1:00am September 12, 2021 2:58pm DEPRESSION clonazePAM 0.5 mg disintegrating oral tablet (20 sources) Benzodiazepine Start: 1 End: 3 clonazePAM orally disintegrating (KLONOPIN WAFER) 0.5 mg disintegrating tablet Indications: Partial epilepsy, with intractable epilepsy, pharmacoresistant (HCC) Take 1 tab for seizures lasting longer than 3 minute or more than 2 seizures in 8 hours. May repeat dose in 10 minutes if seizures continue. Do not exceed more than 2 tabs in 24 hours. 10 tablet 03/25/2021 10/12/2022 Discontinued (Course of therapy completed) Comment on above: Take 1 tab for seizu res lasting longer than 3 minute or more than 2 seizures in 8 hours. May repeat dose in 10 minutes if seizures continue. Do not exceed more than 2 tabs in 24 hours. cyanocobalamin, vitamin B-12, (VITAMIN B-12 ORAL) (20 sources) End: take 1 tablet by mouth once daily cyanocobalamin, vitamin B-12, (VITAMIN B-12 ORAL) Take 1 tablet by mouth once daily. 03/18/2025 Discontinued take 1 tablet by mouth once mika y cyanocobalamin, vitamin B-12, (VITAMIN B-12 ORAL) Take 1 tablet by mouth once daily. Active take 1 tablet by mouth once mika y cyanocobalamin, vitamin B-12, (VITAMIN B-12 ORAL) Take 1 tablet by mouth once daily. 0 Suspended take 1 tablet by mouth once mika y cyanocobalamin, vitamin B-12, (VITAMIN B-12 ORAL) Take 1 tablet by mouth once daily. 0 Active Comment on above: Take 1 tablet by cheryl th once daily. Cyanocobalamin-Liver Extract tablet (4 sources) Start: 03-19-2024 End: 02-27-2025 Cyanocobalamin-Liver Extract tablet Discontinued 1 {tbl} PO DAILY March 19, 2024 12:00am February 27, 2025 5:09pm Start: 03-19-2024 Cyanocobalamin -Liver Extract tablet Active 1 {tbl} PO DAILY March 19, 2024 12:00am diclofenac sodium 0.01 mg/mg topical gel (20 sources) Nonsteroidal Anti-inflammatory Drug Start: 04-02-2023 End: 03-18-2025 diclofenac (VOLTAREN ARTHRITIS PAIN) 1 % topical gel Indications: Bilateral leg pain Apply 2 g to affected area four times daily. 100 g 3 04/02/2023 03/18/2025 Discontinued Start: 11-10-2020 End: 04-15-2021 diclofenac (VOLTAREN ARTHRIT IS PAIN) 1 % topical gel Indications: Arthralgia of left hand Apply 2 g to affected area four times daily. 50 g 1 11/10/2020 04/15/2021 Discontinued Comment on above: Apply 2 g to affecte d area four times daily. diphenhydrAMINE (1 source) Histamine-1 Receptor Antagonist Start: 09-30-19 End: 09-30-19 12.5-50 mg, INTRAVENOUS, DIRECTED, Starting on Sun09/30/24 at 1230, Until Sun09/30/24 at 1629, DOSING DIRECTED BY PHYSICIAN FOR PROCEDURAL SEDATION ONLY, Intraprocedure famotidine 20 mg oral tablet (1 source) Histamine-2 Receptor Antagonist Start: 04-20-20 End: 03-16-20 take 1 tablet by mouth every twenty-four hours as needed famotidine (PEPCID) 20 mg tablet Take 1 tablet by mouth at bedtime as needed (for GERD). 90 tablet 3 04/20/2020 03/16/2021 Discontinued 1 ml fentaNYL 0.05 mg/ml injection (1 source) Opioid Agonist Start: 09-30-19 End: 09-30-19 25-100 mcg, INTRAVENOUS, DIRECTED, Starting on Sun09/30/24 at 1230, Until Sun09/30/24 at 1629, DOSING DIRECTED BY PHYSICIAN FOR PROCEDURAL SEDATION ONLY, Intraprocedure Ferrous fumarate (4 sources) Start: 03-19-20 End: 02-28-20 take 1 tablet by mouth once daily Ferrous Fumarate 55 mg (18 mg iron) tablet extended release Discontinued 18 mg PO DAILY March 19, 2024 12:00am February 27, 2025 5:08pm Start: 03-19-2024 take 1 tablet by mouth once da mikey Ferrous Fumarate 55 mg (18 mg iron) tablet extended release Active 18 mg PO DAILY March 19, 2024 12:00am ferrous sulfate 325 mg oral tablet (20 sources) Start: 03-17-2024 End: 03-18-2025 take 1 tablet by mouth once daily ferrous sulfate 325 mg (65 mg iron) tablet Indications: Gross hematuria , Iron deficiency anemia due to chronic blood loss Take 1 tablet by mouth once daily. 90 tablet 03/17/2024 03/18/2025 Discontinued finasteride 5 mg oral tablet (20 sources) 5-alpha Reductase Inhibitor Start: 03-12-2014 End: 03-11-2024 take 1 tablet by mouth at bedtime Finasteride 5 MG tablet Discontinued 5 mg PO AT BEDTIME March 12, 2014 12:00am March 11, 2024 4:37pm PROSTATE Comment on above: TAKE 1 TABLET EVERY DAY Gauze Bandage (KERLIX) 4 1/2 X 147 bndg (20 sources) Start: 05-20-2024 End: 03-18-2025 Gauze Bandage (KERLIX) 4 1/2 X 147 bndg Indications: Cellulitis of lower extremity, unspecified laterality , Bilateral leg edema Apply 1 application to affected area once daily. 14 Each 1 05/20/2024 03/18/2025 Discontinued Start: 05-20-2024 Gauze Bandage (KERLIX) 4 1/2 X 147 bndg Indications: Cellulitis of lower extremity, unspecified laterality , Bilateral leg edema Apply 1 application to affected area once daily. 14 Each 1 05/20/2024 Active loperamide hydrochloride 2 mg oral tablet (20 sources) Opioid Agonist Start: 02-15-2022 End: 04-02-2023 take 1 tablet by mouth once as needed loperamide HCl (IMODIUM A-D) 2 mg tab Indications: Dark stools , Diarrhea, unspecified type Take 1 tablet by mouth as needed. 90 tablet 02/15/2022 04/02/2023 Discontinued Start: 10-20-2021 End: 02-08-2022 take 1 tablet by mouth once as needed loperamide HCl (IMODIUM A-D) 2 mg tab Indications: Dark stools , Diarrhea, unspecified type Take 1 tablet by mouth as needed. 30 tablet 0 01/27/2022 02/08/2022 Discontinued Comment on above: Take 1 tablet by cheryl as needed. 5 ml midazolam 1 mg/ml injection (1 source) Benzodiazepine Start: 025 End: 025 1-5 mg, INTRAVENOUS, DIRECTED, Starting on Sun09/30/24 at 1230, Until Sun09/30/24 at 1629, DOSING DIRECTED BY PHYSICIAN FOR PROCEDURAL SEDATION ONLY, Intraprocedure ondansetron 4 mg disintegrating oral tablet (20 sources) Serotonin-3 Receptor Antagonist Start: 021 End: 023 take 1 tablet by mouth every six hours as needed ondansetron orally disintegrating (ZOFRAN ODT) 4 mg disintegrating tablet Take 1 tablet by mouth every 6 hours as needed for nausea/vomiting. 20 tablet 04/15/2021 10/12/2022 Discontinued (Course of therapy completed) Comment on above: Take 1 tablet by cheryl th every 6 hours as needed for nausea/vomiting. pantoprazole 40 mg delayed release oral tablet (20 sources) Proton Pump Inhibitor Start: End: take 1 tablet by mouth once daily Pantoprazole (Protonix) 40 mg tablet,delayed release (DR/EC) Discontinued 40 mg PO DAILY March 19, 2024 12:00am February 27, 2025 5:09pm Start: 06-17-2021 End: 04-02-2023 take 1 tablet by mouth once daily before breakfast pantoprazole DR (PROTONIX) 40 mg tablet Take 1 tablet by mouth daily before breakfast. For stomach symptoms, Take on empty stomach, 1/2 hr before meal. 90 tablet 3 11/27/2022 04/02/2023 Discontinued Comment on above: Take 1 tablet by cheryl th daily before breakfast. For stomach symptoms, Take on empty stomach, 1/2 hr before meal. perflutren lipid microspheres 1.3 mL in NaCl (PF) 0.9% 10 mL injection (DEFINITY) (2 sources) Start: 05-05-2024 End: 05-05-2024 perflutren lipid microspheres 1.3 mL in NaCl (PF) 0.9% 10 mL injection (DEFINITY) Start: 05-05-2024 End: 05-05-2024 take 1 dose intravenously once as needed INTRAVENOUS, DIRECTED NEEDED, 1 dose, Starting on Sun05/05/24 at 1115, Until Sun05/05/24 at 1105, Per Protocol - for use during ECHO procedure only, If no IV access, insert saline lock prior to administering contrast. Discontinue saline lock post exam. If patient has central line or IVAD, may access for administration according to line specific nursing protocol. Once exam is complete, flush line and de-access per line specific nursing protocol.Dilute 1.3 ml of Definity with 8.7 ml of preservative-free saline., Cardiac Procedure Med Orders rifAXIMin 550 mg oral tablet (5 sources) Rifamycin Antibacterial Start: 11-14-2022 End: 11-28-2022 take 1 tablet by mouth three times daily rifAXIMin (XIFAXAN) 550 mg tablet Indications: Small intestinal bacterial overgrowth Take 1 tablet by mouth three times daily for 14 days. 42 tablet 0 11/14/2022 11/28/2022 Comment on above: Take 1 tablet by mouth three times daily for 14 days. 125 ml sodium chloride 9 mg/ml prefilled syringe (2 sources) Start: 05-05-2024 End: 05-05-2024 sodium chloride 0.9 % (flush) 10 mL (BD POSIFLUSH) Start: 05-05-2024 End: 05-05-2024 10 mL, INTRAVENOUS, DIREC KEO NEEDED, 1 dose, Starting on Sun05/05/24 at 1115, Until Sun05/05/24 at 1105, Per Protocol - for use during ECHO procedure only, no IV access, insert saline lock prior to administering contrast. Discontinue saline lock post exam. If patient has central line or IVAD, may access for administration according to line specific nursing protocol. Once exam is complete, flush line and de-access per line specific nursing protocol., Cardiac Procedure Med Orders traZODone hydrochloride 50 mg oral tablet (20 sources) Serotonin Reuptake Inhibitor Start: 03-15-2021 End: 10-12-2022 take 1 tablet by mouth once daily at bedtime traZODone (DESYREL) 50 mg tablet Take 1 tablet by mouth daily at bedtime. 30 tablet 5 03/15/2021 10/12/2022 Discontinued (Course of therapy completed) Comment on above: Take 1 tablet by cheryl th daily at bedtime. Problems Active Problems Problem Classification Problem Date Documented Da te Episodic/Chronic Abdominal pain (20 sources) Right upper quadrant pain; Translations: [Right upper quadrant pain] Onset: 1 07-11-2021 Episodic Anxiety disorders (20 sources) Mixed anxiety and depressive disorder; Translations: [Anxiety disorder, unspecified] Onset: 3 07-22-2013 Chronic Comment on above: ON MEDS Deficiency and other anemia (1 source) Iron deficiency anemia due to blood loss; Translations: [Iron deficiency anemia secondary to blood loss (chronic)] 03-17-2024 Chronic Deficiency and other anemia (1 source) Iron deficiency anemia secondary to blood loss (chronic); Translations: [Iron deficiency anemia due to chronic blood loss] Onset: 4 Chronic Disorders of lipid metabolism (20 sources) Hypercholesterolemia; Translations: [Pure hypercholesterolemia, unspecified] Onset: 3 10-30-2016 Chronic Diverticulosis and diverticulitis (20 sources) Diverticulosis of large intestine; Translations: [Diverticulosis of large intestine without perforation or abscess without bleeding] 10-30-2016 Chronic Epilepsy; convulsions (20 sources) Localization-related epilepsy; Translations: [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 seizures, intractable, without status epilepticus] Onset: 1 03-27-2011 Chronic Comment on above: ON MEDS/LAST ZEIZURE ACTIVITY 2 MONTHS AGO Esophageal disorders (20 sources) Gastroesophageal reflux disease; Translations: [Gastro-esophageal reflux disease without esophagitis] Onset: 3 Chronic Essential hypertension (20 sources) Hypertensive disorder; Translations: [Essential (primary) hypertension] Onset: 4 Chronic Fever of unknown origin (1 source) Fever; Translations: [Fever, unspecified] 12-03-2020 Episodic Fluid and electrolyte disorders (20 sources) Hypokalemia; Translations: [Hypokalemia] Onset: 4 03-17-2024 Episodic Gastrointestinal hemorrhage (3 sources) Melena; Translations: [Melena] Onset: 5 02-09-2025 Episodic Hemorrhoids (20 sources) Hemorrhoids; Translations: [Unspecified hemorrhoids] 10-30-2016 Episodic Hyperplasia of prostate (5 sources) Urinary frequency due to benign prostatic hypertrophy; Translations: [Benign prostatic hyperplasia with lower urinary tract symptoms] Onset: 9 08-01-2021 Chronic Immunizations and screening for infectious disease (1 source) Encounter for immunization; Translations: [Other specified vaccinations against streptococcus pneumoniae [pneumococcus]] Episodic Intestinal obstruction without hernia (6 sources) Intestinal obstruction co-occurrent and due to decreased peristalsis; Translations: [Ileus, unspecified] 09-17-2019 Episodic Lymphadenitis (1 source) Nonspecific mesenteric lymphadenitis; Translations: [Nonspecific mesenteric lymphadenitis] Onset: 5 Episodic Miscellaneous mental health disorders (20 sources) Eating disorder; Translations: [Eating disorder, unspecified] Onset: 3 Chronic Mood disorders (20 sources) Depressive disorder; Translations: [Depression] Onset: 3 Chronic Non-Hodgkin`s lymphoma (5 sources) History of malignant lymphoma; Translations: [Personal history of other malignant neoplasms of lymphoid, hematopoietic and related tissues] 03-12-2014 Episodic Noninfectious gastroenteritis (5 sources) Gastroenteritis; Translations: [Noninfective gastroenteritis and colitis, unspecified] 09-17-2019 Episodic Nutritional deficiencies (20 sources) Vitamin D deficiency; Translations: [Vitamin D deficiency, unspecified] Chronic Open wounds of extremities (8 sources) Laceration of toe of left foot; Translations: [Laceration without foreign body of left lesser toe(s) without damage to nail, initial encounter] 01-29-2024 Episodic Other aftercare (1 source) Removal of sutures done; Translations: [Encounter for removal of sutures] Episodic Other aftercare (1 source) Wound finding; Translations: [Encounter for other specified aftercare] Episodic Other aftercare (4 sources) Anticoagulant effect; Translations: [halfway (current) use of anticoagulants] 02-27-2025 Episodic Other aftercare (2 sources) halfway (current) use of anticoagulants; Translations: [halfway (current) use of anticoagulants] Onset: 2 Episodic Other circulatory disease (20 sources) History of insertion of inferior vena caval filter; Translations: [Presence of other vascular implants and grafts] Onset: 4 05-12-2024 Chronic Other circulatory disease (3 sources) Presence of other vascular implants and grafts; Translations: [S/P IVC filter] Onset: 1 Chronic Other circulatory disease (1 source) Inferior vena cava filter in situ; Translations: [Presence of other vascular implants and grafts] 03-04-2025 Chronic Other complications of (1 source) Antepartum deep vein thrombosis; Translations: [Deep phlebothrombosis in , unspecified trimester] 05-05-2024 Episodic Other diseases of kidney and ureters (1 source) Other specified disorders of kidney and ureter; Translations: [Other specified disorders of kidney and ureter] Onset: 4 Chronic Other diseases of veins and lymphatics (1 source) Postthrombotic syndrome; Translations: [Postthrombotic syndrome without complications of unspecified extremity] 09-02-2024 Chronic Other endocrine disorders (1 source) Hypoglycemia; Translations: [Hypoglycemia, unspecified] Chronic Other gastrointestinal disorders (2 sources) Intestinal malabsorption of fat; Translations: [Malabsorption due to intolerance, not elsewhere classified] Chronic Other gastrointestinal disorders (4 sources) Dark stools; Translations: [Other fecal abnormalities] Episodic Other gastrointestinal disorders (1 source) Heartburn; Translations: [Heartburn] Episodic Other gastrointestinal disorders (1 source) Stool finding; Translations: [Other fecal abnormalities] Episodic Other gastrointestinal disorders (1 source) Small bowel bacterial overgrowth syndrome; Translations: [Other specified diseases of intestine] Episodic Other gastrointestinal disorders (6 sources) Increased frequency of defecation; Translations: [Change in bowel habit] 07-24-2024 Episodic Other gastrointestinal disorders (8 sources) Finding of abdomen; Translations: [Other specified symptoms and signs involving the digestive system and abdomen] 08-15-2024 Episodic Other gastrointestinal disorders (7 sources) Disorder of colon; Translations: [Other specified diseases of intestine] 02-27-2025 Episodic Other gastrointestinal disorders (8 sources) Swollen abdomen; Translations: [Abdominal distension (gaseous)] 02-28-2025 Episodic Other gastrointestinal disorders (1 source) Other functional disorders of intestine; Translations: [Chronic pseudo-obstruction of colon] 03-18-2025 Episodic Other gastrointestinal disorders (4 sources) Abdominal distension (gaseous); Translations: [Abdominal distention] Onset: Episodic Other gastrointestinal disorders (1 source) Other specified diseases of intestine; Translations: [Other specified diseases of intestine] Onset: Episodic Other injuries and conditions due to external causes (1 source) Wound hemorrhage; Translations: [Other injury of unspecified body region, initial encounter] 01-29-2024 Episodic Other lower respiratory disease (1 source) Cough; Translations: [Cough] 08-08-2021 Episodic Other lower respiratory disease (4 sources) Dyspnea on exertion; Translations: [Other forms of dyspnea] 03-18-2025 Episodic Other lower respiratory disease (1 source) Other forms of dyspnea; Translations: [ARNDT (dyspnea on exertion)] Onset: Episodic Other nervous system disorders (5 sources) Ataxia; Translations: [Ataxia, unspecified] 05-06-2014 Episodic Other non-epithelial cancer of skin (20 sources) Basal cell carcinoma of skin; Translations: [Basal cell carcinoma of skin, unspecified] Onset: 7 Resolved: 2 10-30-2016 Episodic Other nutritional; endocrine; and metabolic disorders (20 sources) Cholesterol level - finding; Translations: [Lipoprotein deficiency] 10-30-2016 Chronic Other nutritional; endocrine; and metabolic disorders (20 sources) Obese class I; Translations: [Obesity, unspecified] Onset: 8 08-27-2017 Chronic Other nutritional; endocrine; and metabolic disorders (20 sources) Morbid obesity; Translations: [Morbid (severe) obesity due to excess calories] Onset: 4 Chronic Other nutritional; endocrine; and metabolic disorders (20 sources) Intolerance to lactose; Translations: [Lactose intolerance, unspecified] Onset: 2 12-14-2021 Chronic Other nutritional; endocrine; and metabolic disorders (20 sources) Obese class II; Translations: [Obesity, unspecified] Onset: 3 Chronic Other nutritional; endocrine; and metabolic disorders (1 source) Hypophosphatemia; Translations: [Other disorders of phosphorus metabolism] 03-18-2025 Chronic Other nutritional; endocrine; and metabolic disorders (1 source) Other disorders of phosphorus metabolism; Translations: [Hypophosphataemia] Onset: 5 Chronic Other nutritional; endocrine; and metabolic disorders (1 source) Morbid (severe) obesity due to excess calories; Translations: [Morbid obesity (HCC)] Onset: 3 Chronic Other nutritional; endocrine; and metabolic disorders (3 sources) Overeating; Translations: [Polyphagia] 07-24-2024 Episodic Other nutritional; endocrine; and metabolic disorders (1 source) Excessive eating - polyphagia; Translations: [Polyphagia] 03-04-2025 Episodic Other nutritional; endocrine; and metabolic disorders (2 sources) Polyphagia; Translations: [Polyphagia] Onset: 4 Episodic Other screening for suspected conditions (not mental disorders or infectious disease) (20 sources) Other specified abnormal findings of blood chemistry; Translations: [Other abnormal blood chemistry] Onset: 7 10-30-2016 Episodic Other skin disorders (5 sources) Bilateral localized swelling of lower legs; Translations: [Localized swelling, mass and lump, lower limb, bilateral] 03-19-2024 Episodic Comment on above: LOWER LEGS/ON WATER PILL Phlebitis; thrombophlebitis and thromboembolism (20 sources) H/O: Deep vein thrombosis; Translations: [Personal history of other venous thrombosis and embolism] Onset: 3 Resolved: 8 08-01-2021 Episodic Pulmonary heart disease (20 sources) Saddle embolus of pulmonary artery; Translations: [Saddle embolus of pulmonary artery with acute cor pulmonale] Onset: 3 11-30-2022 Chronic Residual codes; unclassified (20 sources) Obstructive sleep apnea syndrome; Translations: [Obstructive sleep apnea (adult) (pediatric)] 10-30-2016 Chronic Residual codes; unclassified (5 sources) Peripheral edema; Translations: [Edema, unspecified] 06-11-2021 Episodic Residual codes; unclassified (2 sources) Pain; Translations: [Pain, unspecified] 02-13-2023 Episodic Residual codes; unclassified (1 source) Procedure not done; Translations: [Procedure and treatment not carried out, unspecified reason] 05-20-2024 Episodic Residual codes; unclassified (11 sources) Early satiety; Translations: [Early satiety] 08-15-2024 Episodic Spondylosis; intervertebral disc disorders; other back problems (20 sources) Degeneration of cervical intervertebral disc; Translations: [Other cervical disc degeneration, unspecified cervical region] 10-30-2016 Chronic Thyroid disorders (20 sources) Acquired hypothyroidism; Translations: [Hypothyroidism, unspecified] Onset: 1 07-11-2021 Chronic Unclassified (3 sources) Appointment is with Dr. Beatriz Moncada in [place]. 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] Onset: 5 Unclassified (1 source) Food insecurity; Translations: [Food insecurity] Onset: 5 Past or Other Problems Problem Classification Problem Date Documented Da te Episodic/Chronic Acute and unspecified renal failure (20 sources) Acute renal failure syndrome; Translations: [Acute kidney failure, unspecified] Onset: 1 Resolved: 2 10-06-2021 Episodic Administrative/social admission (2 sources) Food insecurity; Translations: [Food insecurity] Onset: 5 03-04-2025 Episodic Biliary tract disease (20 sources) Calculus of gallbladder with cholecystitis; Translations: [Calculus of gallbladder with chronic cholecystitis without obstruction] Onset: 5 Episodic Coagulation and hemorrhagic disorders (20 sources) Thrombocytopenic disorder; Translations: [Thrombocytopenia, unspecified] Onset: 3 Resolved: 8 03-25-2018 Chronic Conditions associated with dizziness or vertigo (20 sources) Lightheadedness; Translations: [Dizziness and giddiness] Onset: 4 Resolved: 8 08-01-2021 Episodic Diabetes mellitus without complication (20 sources) Impaired fasting glycemia; Translations: [Impaired fasting glucose] Onset: 8 08-27-2017 Episodic Diseases of white blood cells (20 sources) Other drug-induced agranulocytosis; 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] Onset: 2 Resolved: 8 03-25-2018 Chronic Epilepsy; convulsions (20 sources) Seizure; Translations: [Unspecified convulsions] Onset: 4 Resolved: 8 09-28-2020 Episodic Gastritis and duodenitis (20 sources) Acute gastritis; Translations: [Acute gastritis without bleeding] Onset: 2 Resolved: 8 03-25-2018 Episodic Genitourinary symptoms and ill-defined conditions (20 sources) Increased frequency of urination; Translations: [Frequency of micturition] Onset: 9 Resolved: 8 Episodic Heart valve disorders (3 sources) Heart murmur; Translations: [Cardiac murmur, unspecified] Onset: 4 03-11-2024 Episodic Intestinal infection (20 sources) Infection caused by Helicobacter pylori; Translations: [Other specified bacterial intestinal infections] Onset: 4 Resolved: 8 03-25-2018 Episodic Intracranial injury (20 sources) Traumatic brain injury; Translations: [Traumatic brain injury] Resolved: 8 03-25-2018 Episodic Malaise and fatigue (20 sources) Fatigue; Translations: [Other fatigue] Onset: 3 07-11-2021 Episodic Melanomas of skin (20 sources) Malignant melanoma of skin of neck; Translations: [Malignant melanoma of scalp and neck] Resolved: 2 10-06-2021 Chronic Mycoses (20 sources) Dermal mycosis; Translations: [Superficial mycosis, unspecified] Onset: 3 04-20-2023 Episodic Nausea and vomiting (20 sources) Nausea; Translations: [Nausea] Onset: 1 07-11-2021 Episodic Non-Hodgkin`s lymphoma (20 sources) Diffuse non-Hodgkin's lymphoma, large cell (clinical); Translations: [Diffuse large B-cell lymphoma, unspecified site] Onset: 2 Resolved: 5 Chronic Nutritional deficiencies (20 sources) Cobalamin deficiency; Translations: [Deficiency of other specified B group vitamins] Onset: 4 10-30-2016 Episodic Open wounds of extremities (20 sources) Tear of skin; Translations: [Laceration without foreign body of right upper arm, initial encounter] Onset: 3 04-20-2023 Episodic Open wounds of head; neck; and trunk (20 sources) Open wound of forehead; Translations: [Unspecified open wound of other part of head, initial encounter] Onset: 3 04-20-2023 Episodic Other aftercare (20 sources) Long-term current use of anticoagulant; Translations: [long term care pharmacist (current) use of anticoagulants] Onset: 2 Episodic Other aftercare (20 sources) Patient encounter status; Translations: [Encounter for therapeutic drug level monitoring] Onset: 4 Episodic Other connective tissue disease (20 sources) Pain in bilateral legs; Translations: [Pain in right leg] Onset: 3 04-02-2023 Episodic Other connective tissue disease (1 source) Pain in right leg; Translations: [Bilateral leg pain] Onset: 3 Episodic Other connective tissue disease (1 source) Pain in left leg; Translations: [Bilateral leg pain] Onset: 3 Episodic Other diseases of veins and lymphatics (20 sources) Disorder of vein of lower extremity; Translations: [Venous insufficiency (chronic) (peripheral)] Onset: 5 10-21-2024 Episodic Other diseases of veins and lymphatics (2 sources) Venous insufficiency (chronic) (peripheral); Translations: [Chronic venous stasis dermatitis] Onset: 5 Episodic Other disorders of stomach and duodenum (20 sources) Nonulcer dyspepsia; Translations: [Functional dyspepsia] Onset: 8 Resolved: 8 03-25-2018 Episodic Other gastrointestinal disorders (20 sources) Diarrhea; Translations: [Diarrhea, unspecified] Onset: 2 Episodic Other gastrointestinal disorders (20 sources) Functional diarrhea; Translations: [Functional diarrhea] Onset: 2 Episodic Other gastrointestinal disorders (20 sources) Abdominal bloating; Translations: [Abdominal distension (gaseous)] Onset: 2 Episodic Other gastrointestinal disorders (1 source) Diarrhea, unspecified; Translations: [Diarrhea, unspecified type] Onset: 2 Episodic Other gastrointestinal disorders (1 source) Other specified symptoms and signs involving the digestive system and abdomen; Translations: [Abdominal fullness] Onset: 5 Episodic Other gastrointestinal disorders (1 source) Change in bowel habit; Translations: [Frequent bowel movements] Onset: 5 Episodic Other non-traumatic joint disorders (20 sources) Shoulder pain; Translations: [Pain in right shoulder] Onset: 1 11-18-2020 Episodic Other non-traumatic joint disorders (20 sources) Pain in right shoulder; Translations: [Pain in joint, shoulder region] Onset: 1 11-18-2020 Episodic Other nutritional; endocrine; and metabolic disorders (20 sources) Weight gain; Translations: [Abnormal weight gain] Onset: 2 Episodic Other nutritional; endocrine; and metabolic disorders (20 sources) Increased appetite; Translations: [Polyphagia] Onset: 2 Episodic Other nutritional; endocrine; and metabolic disorders (20 sources) Excessive thirst; Translations: [Polydipsia] Onset: 3 07-11-2023 Episodic Other nutritional; endocrine; and metabolic disorders (20 sources) Weight loss; Translations: [Abnormal weight loss] Onset: 1 Resolved: 8 03-25-2018 Episodic Other nutritional; endocrine; and metabolic disorders (20 sources) Weight increased; Translations: [Abnormal weight gain] Onset: 2 11-23-2021 Episodic Other nutritional; endocrine; and metabolic disorders (13 sources) Weight decreased; Translations: [Abnormal weight loss] Onset: 1 Resolved: 8 03-25-2018 Episodic Other nutritional; endocrine; and metabolic disorders (1 source) Polydipsia; Translations: [Polydipsia] Onset: 3 Episodic Other nutritional; endocrine; and metabolic disorders (1 source) Abnormal weight gain; Translations: [Weight gain] Onset: 2 Episodic Phlebitis; thrombophlebitis and thromboembolism (20 sources) Thrombosis of inferior vena cava; Translations: [Acute embolism and thrombosis of inferior vena cava] Onset: 4 Resolved: 8 03-25-2018 Chronic Pulmonary heart disease (20 sources) Pulmonary embolism; Translations: [Other pulmonary embolism without acute cor pulmonale] Onset: 1 Resolved: 8 Episodic Residual codes; unclassified (20 sources) For resuscitation; Translations: [Other specified health status] Onset: 4 Episodic Residual codes; unclassified (20 sources) Bilateral lower limb edema; Translations: [Localized edema] Onset: 8 08-27-2017 Episodic Residual codes; unclassified (20 sources) H/O Malignant melanoma; Translations: [Other specified postprocedural states] Onset: 8 10-06-2021 Episodic Residual codes; unclassified (20 sources) Reduced libido; Translations: [Decreased libido] Onset: 3 Resolved: 8 03-25-2018 Episodic Residual codes; unclassified (3 sources) Localized edema; Translations: [Bilateral leg edema] Onset: 01-22-201 8 Episodic Residual codes; unclassified (1 source) Early satiety; Translations: [Early satiety] Onset: 5 Episodic Skin and subcutaneous tissue infections (20 sources) Cellulitis of left lower limb; Translations: [Cellulitis of left lower limb] Onset: 1 Resolved: 2 10-06-2021 Episodic Unclassified (20 sources) SUMMARY Onset: 3 Resolved: 8 03-25-2018 Unclassified (4 sources) Finding of abdomen 09-29-2024 Viral infection (20 sources) Disease caused by 2019-nCoV; Translations: [COVID-19] Onset: 3 04-20-2023 Episodic Results Test Name Value Interpretation Reference Range Facility PT panel Coag (PPP)on 2024 INR Coag (PPP) [Relative time] 1.0 {INR} 0.9 - 1.3 [facility] Comment on above: Vitamin K Antagonist (VKA) Therapeutic Range: INR 2 to 3 (Target INR of 2.5) Note: For patients treated with VKA drugs, such as warfarin, the [place] [employer] 2012 Guideline recommends a therapeutic INR range of 2 to 3 (target INR of 2.5). This recommendation includes high-risk patients with antiphospholipid syndrome with previous arterial or venous thromboembolism, current-generation mechanical or bioprosthetic aortic heart valve replacement. Note: Patients with mechanical aortic valve replacement and additional risk factors for thromboembolic events (atrial fibrillation, previous thromboembolism, LV dysfunction, hypercoagulable conditions) or an older generation mechanical AVR (i.e., ball in-Cage) or any mechanical MVR should have a INR therapeutic range of 2.5 to 3.5 (target INR of 3). Danielle MOLINA, et al. Chest 2012, 141:7S-47S Alessandro RA, et al. JACC 2017, 70: 252-289 Interpretation and review of laboratory results Normal [facility] PT Coag (PPP) [Time] 11.[address] [facility] XR Chest PA and Lateralon IMPRESSION: No acute radiographic abnormality. Gaseous bowel distention beneath the diaphragm. Further evaluation may be obtained as clinically indicated. 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: GEORGES Transcribe Date/Time: Mar 18 2025 3:25P Dictated by : LAURA HERNANDEZ MD This examination was interpreted and the report reviewed and electronically signed by: LAURA HERNANDEZ MD on Mar 18 2025 3:27PM [facility] DIVISION OF RADIOLOGY * * *Final Report* * * DATE OF EXAM: Mar 18 2025 2:19PM WOX [id number] - XR CHEST 2V FRONTAL/LAT / PROCEDURE REASON: multiple diagnoses * * * * Physician Interpretation * * * * EXAMINATION: CHEST RADIOGRAPH (2 VIEW FRONTAL & LATERAL) CLINICAL HISTORY: ARNDT (dyspnea on exertion) Borderline low oxygen saturation level MQ: XC2_6 EXAM DATE/TIME: 03/18/2025 2:19 PM COMPARISON: Chest x-ray of 04/18/2023 RESULT: Lines, tubes, and devices: Mediport catheter overlies the left chest extending into the level of the superior vena cava.. Lungs and pleura: No consolidation. No lung mass. No pleural effusion. No pneumothorax. Cardiomediastinal silhouette: Normal cardiomediastinal silhouette. Bones and soft tissues: Unremarkable. Other: A segment of the upper abdomen demonstrates gaseous distention of bowel loops. Further evaluation may be obtained as clinically indicated. DIVISION OF RADIOLOGY Provider, [facility] - 03/18/2025 * * *Final Report* * * DATE OF EXAM: Mar 18 2025 2:19PM WOX [id number] - XR CHEST 2V FRONTAL/LAT / PROCEDURE REASON: multiple diagnoses * * * * Physician Interpretation * * * * EXAMINATION: CHEST RADIOGRAPH (2 VIEW FRONTAL & LATERAL) CLINICAL HISTORY: ARNDT (dyspnea on exertion) Borderline low oxygen saturation level MQ: XC2_6 EXAM DATE/TIME: 03/18/2025 2:19 PM COMPARISON: Chest x-ray of 04/18/2023 RESULT: Lines, tubes, and devices: Mediport catheter overlies the left chest extending into the level of the superior vena cava.. Lungs and pleura: No consolidation. No lung mass. No pleural effusion. No pneumothorax. Cardiomediastinal silhouette: Normal cardiomediastinal silhouette. Bones and soft tissues: Unremarkable. Other: A segment of the upper abdomen demonstrates gaseous distention of bowel loops. Further evaluation may be obtained as clinically indicated. IMPRESSION IMPRESSION: No acute radiographic abnormality. Gaseous bowel distention beneath the diaphragm. Further evaluation may be obtained as clinically indicated. 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: PSCB Transcribe Date/Time: Mar 18 2025 3:25P Dictated by : LAURA HERNANDEZ MD This examination was interpreted and the report reviewed and electronically signed by: LAURA HERNANDEZ MD on Mar 18 2025 3:27PM EST [facility] Radiology Study observation (narrative) [facility] XR Chest PA and LateralOrder ed By: [facility] Provider on 03-18-2025 [facility] Ova and Parasites 8623on OP Normal [facility] Comment on above: Performed By: #### M 600.5000 ####[facility] [address] [place], [address] CBC W/Diff, Automatedon Absolute Neut Normal 2.0-7.7 [facility] Comment on above: Result Comment: Canc elled via OM: MD Ordered Performed By: #### L 100.0100 ####[facility] [address] [place], [address] HCT Normal 40-54 [facility] Comment on above: Result Comment: Canc elled via OM: MD Ordered Performed By: #### L 100.0100 ####[facility] [address] [place], [address] HGB Normal 13.0-16.5 [facility] Comment on above: Result Comment: Canc elled via OM: MD Ordered Performed By: #### L 100.0100 ####[facility] [address] [place], [address] MCH Normal 27.0-32.0 [facility] Comment on above: Result Comment: Canc elled via OM: MD Ordered Performed By: #### L 100.0100 ####[facility] [address] [place], [address] MCHC Normal 32-36 [facility] Comment on above: Result Comment: Canc elled via OM: MD Ordered Performed By: #### L 100.0100 ####[facility] [address] [place], [address] MCV Normal 80-94 [facility] Comment on above: Result Comment: Canc elled via OM: MD Ordered Performed By: #### L 100.0100 ####[facility] [address] [place], [address] NEUT% Normal 47-70 [facility] Comment on above: Result Comment: Canc elled via OM: MD Ordered Performed By: #### L 100.0100 ####[facility] [address] [place], [address] PLT Normal 150-450 [facility] Comment on above: Result Comment: Canc elled via OM: MD Ordered Performed By: #### L 100.0100 ####[facility] [address] [place], [address] RBC Normal 4.6-6.2 [facility] Comment on above: Result Comment: Canc elled via OM: MD Ordered Performed By: #### L 100.0100 ####[facility] [address] [place], [address] RDW CV Normal 11.6-14.6 [facility] Comment on above: Result Comment: Canc elled via OM: MD Ordered Performed By: #### L 100.0100 ####[facility] [address] [place], [address] RDW SD Normal 35.1-43.9 [facility] Comment on above: Result Comment: Canc elled via OM: MD Ordered Performed By: #### L 100.0100 ####[facility] [address] [place], [address] WBC Normal 4.4-11.0 [facility] Comment on above: Result Comment: Canc elled via OM: MD Ordered Performed By: #### L 100.0100 ####[facility] [address] [place], [address] Basic Metabolic Profile (BMP )on 03-13-2025 BUN Normal 4-19 [facility] Comment on above: Result Comment: Canc elled via OM: Order cancelled - Patient discharged Performed By: #### L 100.0100, L500.2500 ####[facility] [address] [place], [address] BUN/CRE Normal 10-20 [facility] Comment on above: Result Comment: Canc elled via OM: Order cancelled - Patient discharged Performed By: #### L 100.0100, L500.2500 ####[facility] [address] [place], [address] Calcium Normal 7.6-11.0 [facility] Comment on above: Result Comment: Canc elled via OM: Order cancelled - Patient discharged Performed By: #### L 100.0100, L500.2500 ####[facility] [address] [place], [address] CL Normal 98-108 [facility] Comment on above: Result Comment: Canc elled via OM: Order cancelled - Patient discharged Performed By: #### L 100.0100, L500.2500 ####[facility] [address] [place], [address] CO2 Normal 21.0-32.0 [facility] Comment on above: Result Comment: Canc elled via OM: Order cancelled - Patient discharged Performed By: #### L 100.0100, L500.2500 ####[facility] [address] [place], [address] CREAT,SERUM Normal 0.70-1.20 [facility] Comment on above: Result Comment: Canc elled via OM: Order cancelled - Patient discharged Performed By: #### L 100.0100, L500.2500 ####[facility] [address] [place], [address] eGFR Normal >60 [facility] Comment on above: Result Comment: Canc elled via OM: Order cancelled - Patient discharged Performed By: #### L 100.0100, L500.2500 ####[facility] [address] [place], [address] GAP Normal 5-15 [facility] Comment on above: Result Comment: Canc elled via OM: Order cancelled - Patient discharged Performed By: #### L 100.0100, L500.2500 ####[facility] [address] [place], [address] GLU Normal 70-99 [facility] Comment on above: Result Comment: Canc elled via OM: Order cancelled - Patient discharged Performed By: #### L 100.0100, L500.2500 ####[facility] [address] [place], [address] Potassium Normal 3.3-5.1 [facility] Comment on above: Result Comment: Canc elled via OM: Order cancelled - Patient discharged Performed By: #### L 100.0100, L500.2500 ####[facility] [address] [place], [address] Basic Metabolic Profile (BMP) Normal 133-145 [facility] Comment on above: Result Comment: Canc elled via OM: Order cancelled - Patient discharged Performed By: #### L 100.0100, L500.2500 ####[facility] [address] [place], [address] CBC W/Diff, Automatedon 08-0 -2024 Absolute Neut Normal 2.0-7.7 [facility] Comment on above: Result Comment: Canc elled via OM: MD Ordered Performed By: #### L 100.0100 ####[facility] [address] [place], [address] Result Comment: Canc elled via OM: Order cancelled - Patient discharged Performed By: #### L 100.0100, L500.2500 ####[facility] [address] [place], [address] HCT Normal 40-54 [facility] Comment on above: Result Comment: Canc elled via OM: MD Ordered Performed By: #### L 100.0100 ####[facility] [address] [place], [address] Result Comment: Canc elled via OM: Order cancelled - Patient discharged Performed By: #### L 100.0100, L500.2500 ####[facility] [address] [place], [address] HGB Normal 13.0-16.5 [facility] Comment on above: Result Comment: Canc elled via OM: MD Ordered Performed By: #### L 100.0100 ####[facility] [address] [place], [address] Result Comment: Canc elled via OM: Order cancelled - Patient discharged Performed By: #### L 100.0100, L500.2500 ####[facility] [address] [place], [address] MCH Normal 27.0-32.0 [facility] Comment on above: Result Comment: Canc elled via OM: MD Ordered Performed By: #### L 100.0100 ####[facility] [address] [place], [address] Result Comment: Canc elled via OM: Order cancelled - Patient discharged Performed By: #### L 100.0100, L500.2500 ####[facility] [address] [place], [address] MCHC Normal 32-36 [facility] Comment on above: Result Comment: Canc elled via OM: MD Ordered Performed By: #### L 100.0100 ####[facility] [address] [place], [address] Result Comment: Canc elled via OM: Order cancelled - Patient discharged Performed By: #### L 100.0100, L500.2500 ####[facility] [address] [place], [address] MCV Normal 80-94 [facility] Comment on above: Result Comment: Canc elled via OM: MD Ordered Performed By: #### L 100.0100 ####[facility] [address] [place], [address] Result Comment: Canc elled via OM: Order cancelled - Patient discharged Performed By: #### L 100.0100, L500.2500 ####[facility] [address] [place], [address] NEUT% Normal 47-70 [facility] Comment on above: Result Comment: Canc elled via OM: MD Ordered Performed By: #### L 100.0100 ####[facility] [address] [place], [address] Result Comment: Canc elled via OM: Order cancelled - Patient discharged Performed By: #### L 100.0100, L500.2500 ####[facility] [address] [place], [address] PLT Normal 150-450 [facility] Comment on above: Result Comment: Canc elled via OM: MD Ordered Performed By: #### L 100.0100 ####[facility] [address] [place], [address] Result Comment: Canc elled via OM: Order cancelled - Patient discharged Performed By: #### L 100.0100, L500.2500 ####[facility] [address] [place], [address] RBC Normal 4.6-6.2 [facility] Comment on above: Result Comment: Canc elled via OM: MD Ordered Performed By: #### L 100.0100 ####[facility] [address] [place], [address] Result Comment: Canc elled via OM: Order cancelled - Patient discharged Performed By: #### L 100.0100, L500.2500 ####[facility] [address] [place], [address] RDW CV Normal 11.6-14.6 [facility] Comment on above: Result Comment: Canc elled via OM: MD Ordered Performed By: #### L 100.0100 ####[facility] [address] [place], [address] Result Comment: Canc elled via OM: Order cancelled - Patient discharged Performed By: #### L 100.0100, L500.2500 ####[facility] [address] [place], [address] RDW SD Normal 35.1-43.9 [facility] Comment on above: Result Comment: Canc elled via OM: MD Ordered Performed By: #### L 100.0100 ####[facility] [address] [place], [address] Result Comment: Canc elled via OM: Order cancelled - Patient discharged Performed By: #### L 100.0100, L500.2500 ####[facility] [address] [place], [address] WBC Normal 4.4-11.0 [facility] Comment on above: Result Comment: Canc elled via OM: MD Ordered Performed By: #### L 100.0100 ####[facility] [address] [place], [address] Result Comment: Canc elled via OM: Order cancelled - Patient discharged Performed By: #### L 100.0100, L500.2500 ####[facility] [address] [place], [address] Absolute lymphocyte countOrd ered By: Carlton Davis on 03-12-2025 Lymphocytes Auto (Unsp spec) [#/Vol] 1.28 10*3/uL 0.83-4.51 [facility] Absolute neutrophil countOrd ered By: Carlton Davis on 03-12-2025 Neutrophils (Bld) [#/Vol] 4.2 10*3/uL 2.0-7.7 [facility] Anion gap in Serum or Plasma Ordered By: Carlton Davis on 03-12-2025 Anion gap [Moles/Vol] 12 mmol/L 5-15 [facility] Automated lymphocyte count a s percentage of total leukocytesOrdered By: Carlton Davis on 03-12-2025 Lymphocytes/100 WBC Auto (Unsp spec) 20.3 % 19-41 [facility] BUN/creatinine ratioOrdered By: Carlton Davis on 03-12-2025 Urea nitrogen/Creatinine [Mass ratio] 9.7 mg/mg Low 10-20 [facility] Basic Metabolic Profile (BMP )on 03-12-2025 BUN/CRE 9.7 RATIO Low 10-20 [facility] Comment on above: Performed By: #### L 500.2500, L100.0100 ####[facility] [address] [place], [address] Calcium [Mass/Vol] 8.9 mg/dL Normal 7.6-11.0 [facility] Comment on above: Performed By: #### L 500.2500, L100.0100 ####[facility] [address] [place], [address] Chloride [Moles/Vol] 106 mmol/L Normal 98-108 [facility] Comment on above: Performed By: #### L 500.2500, L100.0100 ####[facility] [address] [place], [address] CO2 [Moles/Vol] 22.0 mmol/L Normal 21.0-32.0 [facility] Comment on above: Performed By: #### L 500.2500, L100.0100 ####[facility] [address] [place], [address] Creatinine [Mass/Vol] 1.00 mg/dL Normal 0.70-1.20 [facility] Comment on above: Performed By: #### L 500.2500, L100.0100 ####[facility] [address] [place], [address] ECRCL 90.62 ml/min Normal 50-250 [facility] Comment on above: Performed By: #### L 500.2500, L100.0100 ####[facility] [address] [place], [address] GAP 12 Normal 5-15 [facility] Comment on above: Performed By: #### L 500.2500, L100.0100 ####[facility] [address] [place], [address] GFR/1.73 sq M.predicted among non-blacks MDRD (S/P/Bld) [Vol rate/Area] 80 mL/min/{1.73_m2} Normal >60 [facility] Comment on above: Result Comment: mL/m in/1.73m2 CKD-EPI Creatinine Equation (2020) Performed By: #### L 500.2500, L100.0100 ####[facility] [address] [place], [address] Glucose [Mass/Vol] 110 mg/dL High 70-99 [facility] Comment on above: Performed By: #### L 500.2500, L100.0100 ####[facility] [address] [place], [address] Potassium [Moles/Vol] 3.7 mmol/L Normal 3.3-5.1 [facility] Comment on above: Performed By: #### L 500.2500, L100.0100 ####[facility] [address] [place], [address] Sodium [Moles/Vol] 140 mmol/L Normal 133-145 [facility] Comment on above: Performed By: #### L 500.2500, L100.0100 ####[facility] [address] [place], [address] Urea nitrogen [Mass/Vol] 10 mg/dL Normal 4-19 [facility] Comment on above: Performed By: #### L 500.2500, L100.0100 ####[facility] [address] [place], [address] Basophil percentageOrdered B y: Carlton Davis on 03-12-2025 Basophils/100 WBC (Bld) 0.5 % 0-1 [facility] CBC W/Diff, Automatedon Absolute Lymph 1.28 X10 3/uL Normal 0.83-4.51 [facility] Comment on above: Performed By: #### L 500.2500, L100.0100 ####[facility] [address] [place], [address] Absolute Neut 4.2 X10 3/uL Normal 2.0-7.7 [facility] Comment on above: Performed By: #### L 500.2500, L100.0100 ####[facility] [address] [place], [address] Basophils/100 WBC (Bld) 0.5 % Normal 0-1 [facility] Comment on above: Performed By: #### L 500.2500, L100.0100 ####[facility] [address] [place], [address] Eosinophils/100 WBC (Bld) 4.9 % Normal 0-5 [facility] Comment on above: Performed By: #### L 500.2500, L100.0100 ####[facility] [address] [place], [address] Erythrocyte distribution width (RBC) [Ratio] 14.4 % Normal 11.6-14.6 [facility] Comment on above: Performed By: #### L 500.2500, L100.0100 ####[facility] [address] [place], [address] Hematocrit (Bld) [Volume fraction] 37.6 % Low 40-54 [facility] Comment on above: Performed By: #### L 500.2500, L100.0100 ####[facility] [address] [place], [address] Hemoglobin (Bld) [Mass/Vol] 12.3 g/dL Low 13.0-16.5 [facility] Comment on above: Performed By: #### L 500.2500, L100.0100 ####[facility] [address] [place], [address] IG% 0.200 Normal 0.0-0.9 [facility] Comment on above: Result Comment: IG% - Immature Granulocytes (promyelocytes, myelocytes andmetamyelocytes) > 1% indicates that a LEFT SHIFT is Present. Performed By: #### L 500.2500, L100.0100 ####[facility] [address] [place], [address] Lymphocytes/100 WBC (Bld) 20.3 % Normal 19-41 [facility] Comment on above: Performed By: #### L 500.2500, L100.0100 ####[facility] [address] [place], [address] MCH (RBC) [Entitic mass] 29.4 pg Normal 27.0-32.0 [facility] Comment on above: Performed By: #### L 500.2500, L100.0100 ####[facility] [address] [place], [address] MCHC (RBC) [Mass/Vol] 32.7 g/dL Normal 32-36 [facility] Comment on above: Performed By: #### L 500.2500, L100.0100 ####[facility] [address] [place], [address] MCV (RBC) [Entitic vol] 90.0 fL Normal 80-94 [facility] Comment on above: Performed By: #### L 500.2500, L100.0100 ####[facility] [address] [place], [address] Monocytes/100 WBC (Bld) 7.0 % Normal 0-10 [facility] Comment on above: Performed By: #### L 500.2500, L100.0100 ####[facility] [address] [place], [address] Neutrophils/100 WBC (Bld) 67.1 % Normal 47-70 [facility] Comment on above: Performed By: #### L 500.2500, L100.0100 ####[facility] [address] [place], [address] Nucleated RBC (Bld) [#/Vol] 0 10*3/uL Normal 0-5 [facility] Comment on above: Performed By: #### L 500.2500, L100.0100 ####[facility] [address] [place], [address] Platelet mean volume (Bld) [Entitic vol] 9.3 fL Normal 6.2-12.0 [facility] Comment on above: Performed By: #### L 500.2500, L100.0100 ####[facility] [address] [place], [address] Platelets (Bld) [#/Vol] 173 10*3/uL Normal 150-450 [facility] Comment on above: Performed By: #### L 500.2500, L100.0100 ####[facility] [address] [place], [address] RBC (Bld) [#/Vol] 4.18 10*6/uL Low 4.6-6.2 [facility] Comment on above: Performed By: #### L 500.2500, L100.0100 ####[facility] [address] [place], [address] RDW SD 47.6 fl High 35.1-43.9 [facility] Comment on above: Performed By: #### L 500.2500, L100.0100 ####[facility] [address] [place], [address] WBC (Bld) [#/Vol] 6.3 10*3/uL Normal 4.4-11.0 [facility] Comment on above: Performed By: #### L 500.2500, L100.0100 ####[facility] [address] [place], [address] Absolute Neut Normal 2.0-7.7 [facility] Comment on above: Result Comment: Canc elled via OM: MD Ordered Performed By: #### L 100.0100 ####[facility] [address] [place], [address] HCT Normal 40-54 [facility] Comment on above: Result Comment: Canc elled via OM: MD Ordered Performed By: #### L 100.0100 ####[facility] [address] [place], [address] HGB Normal 13.0-16.5 [facility] Comment on above: Result Comment: Canc elled via OM: MD Ordered Performed By: #### L 100.0100 ####[facility] [address] [place], [address] MCH Normal 27.0-32.0 [facility] Comment on above: Result Comment: Canc elled via OM: MD Ordered Performed By: #### L 100.0100 ####[facility] [address] [place], [address] MCHC Normal 32-36 [facility] Comment on above: Result Comment: Canc elled via OM: MD Ordered Performed By: #### L 100.0100 ####[facility] [address] [place], [address] MCV Normal 80-94 [facility] Comment on above: Result Comment: Canc elled via OM: MD Ordered Performed By: #### L 100.0100 ####[facility] [address] [place], [address] NEUT% Normal 47-70 [facility] Comment on above: Result Comment: Canc elled via OM: MD Ordered Performed By: #### L 100.0100 ####[facility] [address] [place], [address] PLT Normal 150-450 [facility] Comment on above: Result Comment: Canc elled via OM: MD Ordered Performed By: #### L 100.0100 ####[facility] [address] [place], [address] RBC Normal 4.6-6.2 [facility] Comment on above: Result Comment: Canc elled via OM: MD Ordered Performed By: #### L 100.0100 ####[facility] [address] [place], [address] RDW CV Normal 11.6-14.6 [facility] Comment on above: Result Comment: Canc elled via OM: MD Ordered Performed By: #### L 100.0100 ####[facility] [address] [place], [address] RDW SD Normal 35.1-43.9 [facility] Comment on above: Result Comment: Lita elled via OM: MD Ordered Performed By: #### L 100.0100 ####[facility] [address] [place], [place], [address] WBC Normal 4.4-11.0 [facility] Comment on above: Result Comment: Lita horated via OM: MD Ordered Performed By: #### L 100.0100 ####[facility] [address] [place], [address] Carbon dioxide, total [Moles /volume] in Central venous bloodOrdered By: Carlton Davis on 03-12-2025 CO2 [Moles/Vol] 22.0 mmol/L 21.0-32.0 [facility] Chloride assayOrdered By: Richie Davis on 03-12-2025 Chloride [Moles/Vol] 106 mmol/L 98-108 [facility] Eosinophil percentageOrdered By: Carlton Davis on 03-12-2025 Eosinophils/100 WBC (Bld) 4.9 % 0-5 [facility] Erythrocyte distribution wid th ratioOrdered By: Carlton Davis on 03-12-2025 Erythrocyte distribution width (RBC) [Ratio] 14.4 % 11.6-14.6 [facility] Erythrocyte distribution wid th standard deviationOrdered By: Carlton Davis on 03-12-2025 Erythrocyte distribution width (RBC) [Ratio] 47.6 fl High 35.1-43.9 [facility] Glomerular filtration rate ( GFR) estimation/1.73 sq m using serum, plasma, or whole bOrdered By: Carlton Davis on 03-12-2025 GFR/1.73 sq M.predicted among non-blacks MDRD (S/P/Bld) [Vol rate/Area] 80 mL/min/{1.73_m2} >60 [facility] Comment on above: mL/min/1.73m2 CKD-EP I Creatinine Equation (2020) Hematocrit Auto (Bld) [Volum e fraction]Ordered By: Carlton Davis on 03-12-2025 Hematocrit (Bld) [Volume fraction] 37.6 % Low 40-54 [facility] Hemoglobin measurementOrdere d By: Carlton Davis on 03-12-2025 Hemoglobin (Bld) [Mass/Vol] 12.3 g/dL Low 13.0-16.5 [facility] Immature granulocytes/100 WB C Auto (Bld)Ordered By: Carlton Davis on 03-12-2025 Immature granulocytes/100 WBC (Bld) 0.200 % 0.0-0.9 [facility] Comment on above: IG% - Immature Granu locytes (promyelocytes, myelocytes and metamyelocytes) > 1% indicates that a LEFT SHIFT is Present. MCV (mean corpuscular volume ) determinationOrdered By: Carlton Davis on 03-12-2025 MCV (RBC) [Entitic vol] 90.0 fL 80-94 [facility] Mean corpuscular hemoglobin (MCH) determinationOrdered By: Carlton Davis on 03-12-2025 MCH (RBC) [Entitic mass] 29.4 pg 27.0-32.0 [facility] Mean corpuscular hemoglobin concentration (MCHC) determinationOrdered By: Carlton Davis on 03-12-2025 MCHC (RBC) [Mass/Vol] 32.7 g/dL 32-36 [facility] Mean platelet volume determi nationOrdered By: Carlton Davis on 03-12-2025 Platelet mean volume (Bld) [Entitic vol] 9.3 fL 6.2-12.0 [facility] Monocyte percentageOrdered B y: Carlton Davis on 03-12-2025 Monocytes/100 WBC (Bld) 7.0 % 0-10 [facility] Neutrophil percentageOrdered By: Carlton Davis on 03-12-2025 Neutrophils/100 WBC (Bld) 67.1 % 47-70 [facility] Nucleated red blood cell per centageOrdered By: Carlton Davis on 03-12-2025 Nucleated RBC/100 WBC (Bld) [Ratio] 0 % 0-5 [facility] Platelet countOrdered By: Richie Davis on 03-12-2025 Platelets (Bld) [#/Vol] 173 10*3/uL 150-450 [facility] [facility] Potassium measurement (mass/ volume)Ordered By: Carlton Davis on 03-12-2025 Potassium (Unsp spec) [Mass/Vol] 3.7 mmol/L 3.3-5.1 [facility] RBC Auto (Bld) [#/Vol]Ordere d By: Carlton Davis on 03-12-2025 RBC (Bld) [#/Vol] 4.18 10*6/uL Low 4.6-6.2 [facility] Serum creatinine measurement (mass/volume)Ordered By: Carlton Davis on 03-12-2025 Creatinine [Mass/Vol] 1.00 mg/dL 0.70-1.20 [facility] Serum glucose measurement (m ass/volume)Ordered By: Carlton Davis on 03-12-2025 Glucose [Mass/Vol] 110 mg/dL High 70-99 [facility] Serum or plasma calcium mickie urement (mass/volume)Ordered By: Carlton Davis on 03-12-2025 Calcium [Mass/Vol] 8.9 mg/dL 7.6-11.0 [facility] Serum or plasma urea nitroge n measurement (mass/volume)Ordered By: Carlton Davis on 03-12-2025 Urea nitrogen [Mass/Vol] 10 mg/dL 4-19 [facility] Sodium levelOrdered By: Edmund Davis on 03-12-2025 Sodium [Moles/Vol] 140 mmol/L 133-145 [facility] White blood cell (WBC) count Ordered By: Carlton Davis on 03-12-2025 WBC (Bld) [#/Vol] 6.3 10*3/uL 4.4-11.0 [facility] Basic Metabolic Profile (BMP )on 03-11-2025 BUN/CRE 8.8 RATIO Low 10-20 [facility] Comment on above: Performed By: #### L 500.2500, L100.0100, L501.2300, L501.5200 ####[facility] [address] [place], [address] Calcium [Mass/Vol] 8.8 mg/dL Normal 7.6-11.0 [facility] Comment on above: Performed By: #### L 500.2500, L100.0100, L501.2300, L501.5200 ####[facility] [address] [place], [address] Chloride [Moles/Vol] 106 mmol/L Normal 98-108 [facility] Comment on above: Performed By: #### L 500.2500, L100.0100, L501.2300, L501.5200 ####[facility] [address] [place], [address] CO2 [Moles/Vol] 19.6 mmol/L Low 21.0-32.0 [facility] Comment on above: Performed By: #### L 500.2500, L100.0100, L501.2300, L501.5200 ####[facility] [address] [place], [address] Creatinine [Mass/Vol] 0.94 mg/dL Normal 0.70-1.20 [facility] Comment on above: Performed By: #### L 500.2500, L100.0100, L501.2300, L501.5200 ####[facility] [address] [place], [address] ECRCL 101.09 ml/min Normal 50-250 [facility] Comment on above: Performed By: #### L 500.2500, L100.0100, L501.2300, L501.5200 ####[facility] [address] [place], [address] GAP 13 Normal 5-15 [facility] Comment on above: Performed By: #### L 500.2500, L100.0100, L501.2300, L501.5200 ####[facility] [address] [place], [address] GFR/1.73 sq M.predicted among non-blacks MDRD (S/P/Bld) [Vol rate/Area] 87 mL/min/{1.73_m2} Normal >60 [facility] Comment on above: Result Comment: mL/m in/1.73m2 CKD-EPI Creatinine Equation (2020) Performed By: #### L 500.2500, L100.0100, L501.2300, L501.5200 ####[facility] [address] [place], [address] Glucose [Mass/Vol] 131 mg/dL High 70-99 [facility] Comment on above: Performed By: #### L 500.2500, L100.0100, L501.2300, L501.5200 ####[facility] [address] [place], [address] Potassium [Moles/Vol] 3.9 mmol/L Normal 3.3-5.1 [facility] Comment on above: Performed By: #### L 500.2500, L100.0100, L501.2300, L501.5200 ####[facility] [address] [place], [address] Sodium [Moles/Vol] 138 mmol/L Normal 133-145 [facility] Comment on above: Performed By: #### L 500.2500, L100.0100, L501.2300, L501.5200 ####[facility] [address] [place], [address] Urea nitrogen [Mass/Vol] 8 mg/dL Normal 4-19 [facility] Comment on above: Performed By: #### L 500.2500, L100.0100, L501.2300, L501.5200 ####[facility] [address] [place], [address] Bedside Glucoseon 03-11-2025 FINGERSTICK GLU 124 mg/dL High 74-106 [facility] Comment on above: Result Comment: MARIA ELENA HARRIS OF PATIENT CARE PER NURSING PROTOCOL Performed By: #### L 501.080 ####[facility] [address] [place], [address] FINGERSTICK GLU 139 mg/dL High 74-106 [facility] Comment on above: Result Comment: MARIA ELENA HARRIS OF PATIENT CARE PER NURSING PROTOCOL Performed By: #### L 501.080 ####[facility] [address] [place], [address] CBC W/Diff, Automatedon 08-0 Absolute Neut Normal 2.0-7.7 [facility] Comment on above: Result Comment: Canc elled via OM: MD Ordered Performed By: #### L 100.0100, L500.4050 ####[facility] [address] [place], [address] HCT Normal 40-54 [facility] Comment on above: Result Comment: Canc elled via OM: MD Ordered Performed By: #### L 100.0100, L500.4050 ####[facility] [address] [place], [address] HGB Normal 13.0-16.5 [facility] Comment on above: Result Comment: Canc elled via OM: MD Ordered Performed By: #### L 100.0100, L500.4050 ####[facility] [address] [place], [address] MCH Normal 27.0-32.0 [facility] Comment on above: Result Comment: Canc elled via OM: MD Ordered Performed By: #### L 100.0100, L500.4050 ####[facility] [address] [place], [address] MCHC Normal 32-36 [facility] Comment on above: Result Comment: Canc elled via OM: MD Ordered Performed By: #### L 100.0100, L500.4050 ####[facility] [address] [place], [address] MCV Normal 80-94 [facility] Comment on above: Result Comment: Canc elled via OM: MD Ordered Performed By: #### L 100.0100, L500.4050 ####[facility] [address] [place], [address] NEUT% Normal 47-70 [facility] Comment on above: Result Comment: Canc elled via OM: MD Ordered Performed By: #### L 100.0100, L500.4050 ####[facility] [address] [place], [address] PLT Normal 150-450 [facility] Comment on above: Result Comment: Canc elled via OM: MD Ordered Performed By: #### L 100.0100, L500.4050 ####[facility] [address] [place], [address] RBC Normal 4.6-6.2 [facility] Comment on above: Result Comment: Canc elled via OM: MD Ordered Performed By: #### L 100.0100, L500.4050 ####[facility] [address] [place], [address] RDW CV Normal 11.6-14.6 [facility] Comment on above: Result Comment: Canc elled via OM: MD Ordered Performed By: #### L 100.0100, L500.4050 ####[facility] [address] [place], [address] RDW SD Normal 35.1-43.9 [facility] Comment on above: Result Comment: Canc elled via OM: MD Ordered Performed By: #### L 100.0100, L500.4050 ####[facility] [address] [place], [address] WBC Normal 4.4-11.0 [facility] Comment on above: Result Comment: Canc elled via OM: MD Ordered Performed By: #### L 100.0100, L500.4050 ####[facility] [address] [place], [address] Absolute Lymph 1.20 X10 3/uL Normal 0.83-4.51 [facility] Comment on above: Performed By: #### L 500.2500, L100.0100, L501.2300, L501.5200 ####[facility] [address] [place], [address] Absolute Neut 3.8 X10 3/uL Normal 2.0-7.7 [facility] Comment on above: Performed By: #### L 500.2500, L100.0100, L501.2300, L501.5200 ####[facility] [address] [place], [address] Basophils/100 WBC (Bld) 0.5 % Normal 0-1 [facility] Comment on above: Performed By: #### L 500.2500, L100.0100, L501.2300, L501.5200 ####[facility] [address] [place], [address] Eosinophils/100 WBC (Bld) 4.3 % Normal 0-5 [facility] Comment on above: Performed By: #### L 500.2500, L100.0100, L501.2300, L501.5200 ####[facility] [address] [place], [address] Erythrocyte distribution width (RBC) [Ratio] 14.5 % Normal 11.6-14.6 [facility] Comment on above: Performed By: #### L 500.2500, L100.0100, L501.2300, L501.5200 ####[facility] [address] [place], [address] Hematocrit (Bld) [Volume fraction] 36.7 % Low 40-54 [facility] Comment on above: Performed By: #### L 500.2500, L100.0100, L501.2300, L501.5200 ####[facility] [address] [place], [address] Hemoglobin (Bld) [Mass/Vol] 12.0 g/dL Low 13.0-16.5 [facility] Comment on above: Performed By: #### L 500.2500, L100.0100, L501.2300, L501.5200 ####[facility] [address] [place], [address] IG% 0.200 Normal 0.0-0.9 [facility] Comment on above: Result Comment: IG% - Immature Granulocytes (promyelocytes, myelocytes andmetamyelocytes) > 1% indicates that a LEFT SHIFT is Present. Performed By: #### L 500.2500, L100.0100, L501.2300, L501.5200 ####[facility] [address] [place], [address] Lymphocytes/100 WBC (Bld) 21.4 % Normal 19-41 [facility] Comment on above: Performed By: #### L 500.2500, L100.0100, L501.2300, L501.5200 ####[facility] [address] [place], [address] MCH (RBC) [Entitic mass] 29.2 pg Normal 27.0-32.0 [facility] Comment on above: Performed By: #### L 500.2500, L100.0100, L501.2300, L501.5200 ####[facility] [address] [place], [address] MCHC (RBC) [Mass/Vol] 32.7 g/dL Normal 32-36 [facility] Comment on above: Performed By: #### L 500.2500, L100.0100, L501.2300, L501.5200 ####[facility] [facility] [address] [place], [address] MCV (RBC) [Entitic vol] 89.3 fL Normal 80-94 [facility] Comment on above: Performed By: #### L 500.2500, L100.0100, L501.2300, L501.5200 ####[facility] [address] [place], [address] Monocytes/100 WBC (Bld) 5.7 % Normal 0-10 [facility] Comment on above: Performed By: #### L 500.2500, L100.0100, L501.2300, L501.5200 ####[facility] [address] [place], [address] Neutrophils/100 WBC (Bld) 67.9 % Normal 47-70 [facility] Comment on above: Performed By: #### L 500.2500, L100.0100, L501.2300, L501.5200 ####[facility] [address] [place], [address] Nucleated RBC (Bld) [#/Vol] 0 10*3/uL Normal 0-5 [facility] Comment on above: Performed By: #### L 500.2500, L100.0100, L501.2300, L501.5200 ####[facility] [address] [place], [address] Platelet mean volume (Bld) [Entitic vol] 8.7 fL Normal 6.2-12.0 [facility] Comment on above: Performed By: #### L 500.2500, L100.0100, L501.2300, L501.5200 ####[facility] [address] [place], [address] Platelets (Bld) [#/Vol] 165 10*3/uL Normal 150-450 [facility] Comment on above: Performed By: #### L 500.2500, L100.0100, L501.2300, L501.5200 ####[facility] [address] [place], [address] RBC (Bld) [#/Vol] 4.11 10*6/uL Low 4.6-6.2 [facility] Comment on above: Performed By: #### L 500.2500, L100.0100, L501.2300, L501.5200 ####[facility] [address] [place], [address] RDW SD 47.3 fl High 35.1-43.9 [facility] Comment on above: Performed By: #### L 500.2500, L100.0100, L501.2300, L501.5200 ####[facility] [address] [place], [address] WBC (Bld) [#/Vol] 5.6 10*3/uL Normal 4.4-11.0 [facility] Comment on above: Performed By: #### L 500.2500, L100.0100, L501.2300, L501.5200 ####[facility] [address] [place], [address] Comprehensive Metabolic Prof ilon 03-11-2025 ALB Normal 3.4-4.8 [facility] Comment on above: Result Comment: Miguec elled via OM: MD Ordered Performed By: #### L 100.0100, L500.4050 ####[facility] [address] [place], [address] ALK PHOS Normal 40-129 [facility] Comment on above: Result Comment: Lita hortaed via OM: MD Ordered Performed By: #### L 100.0100, L500.4050 ####[facility] [address] [place], [address] ALT Normal <=46 [facility] Comment on above: Result Comment: Canc elled via OM: MD Ordered Performed By: #### L 100.0100, L500.4050 ####[facility] [address] [place], [address] AST Normal <=37 [facility] Comment on above: Result Comment: Canc elled via OM: MD Ordered Performed By: #### L 100.0100, L500.4050 ####[facility] [address] [place], [address] BUN Normal 4-19 [facility] Comment on above: Result Comment: Canc elled via OM: MD Ordered Performed By: #### L 100.0100, L500.4050 ####[facility] [address] [place], [address] BUN/CRE Normal 10-20 [facility] Comment on above: Result Comment: Canc elled via OM: MD Ordered Performed By: #### L 100.0100, L500.4050 ####[facility] [address] [place], [address] Calcium Normal 7.6-11.0 [facility] Comment on above: Result Comment: Canc elled via OM: MD Ordered Performed By: #### L 100.0100, L500.4050 ####[facility] [address] [place], [address] CL Normal 98-108 [facility] Comment on above: Result Comment: Canc elled via OM: MD Ordered Performed By: #### L 100.0100, L500.4050 ####[facility] [address] [place], [address] CO2 Normal 21.0-32.0 [facility] Comment on above: Result Comment: Canc elled via OM: MD Ordered Performed By: #### L 100.0100, L500.4050 ####[facility] [address] [place], [address] CREAT,SERUM Normal 0.70-1.20 [facility] Comment on above: Result Comment: Canc elled via OM: MD Ordered Performed By: #### L 100.0100, L500.4050 ####[facility] [address] [place], [address] eGFR Normal >60 [facility] Comment on above: Result Comment: Canc elled via OM: MD Ordered Performed By: #### L 100.0100, L500.4050 ####[facility] [address] [place], [address] GAP Normal 5-15 [facility] Comment on above: Result Comment: Canc elled via OM: MD Ordered Performed By: #### L 100.0100, L500.4050 ####[facility] [address] [place], [address] GLU Normal 70-99 [facility] Comment on above: Result Comment: Canc elled via OM: MD Ordered Performed By: #### L 100.0100, L500.4050 ####[facility] [address] [place], [address] Potassium Normal 3.3-5.1 [facility] Comment on above: Result Comment: Canc elled via OM: MD Ordered Performed By: #### L 100.0100, L500.4050 ####[facility] [address] [place], [address] T BILI Normal 0.00-1.30 [facility] Comment on above: Result Comment: Canc elled via OM: MD Ordered Performed By: #### L 100.0100, L500.4050 ####[facility] [address] [place], [address] T PROT Normal 5.9-8.4 [facility] Comment on above: Result Comment: Canc elled via OM: MD Ordered Performed By: #### L 100.0100, L500.4050 ####[facility] [address] [place], [address] Comprehensive Metabolic Profil Normal 133-145 [facility] Comment on above: Result Comment: Canjordon hortaed via OM: MD Ordered Performed By: #### L 100.0100, L500.4050 ####[facility] [address] [place], [address] [facility] deOrdered By: Carlton Davis on 03-11-2025 Glucose [Mass/Vol] 124 mg/dL High 74-106 [facility] Comment on above: MANAGEMENT OF PATIEN T CARE PER NURSING PROTOCOL Magnesiumon 03-11-2025 Magnesium [Mass/Vol] 2.2 mg/dL Normal 1.5-2.2 [facility] Comment on above: Performed By: #### L 500.2500, L100.0100, L501.2300, L501.5200 ####[facility] [address] [place], [address] Magnesium measurement (mass/ volume)Ordered By: Carlton Davis on 03-11-2025 Magnesium (Unsp spec) [Mass/Vol] 2.2 mg/dL 1.5-2.2 [facility] Phosphoruson 03-11-2025 Phosphate [Mass/Vol] 2.4 mg/dL Low 2.7-4.5 [facility] Comment on above: Performed By: #### L 500.2500, L100.0100, L501.2300, L501.5200 ####[facility] [address] [place], [address] [facility] Comprehensive Panelon ANTI-DNA (DS)AB <1 Normal 0-9 [facility] Comment on above: Result Comment: Nega tive <5 Equivocal 5 - 9 Positive >9 Performed By: #### L 501.6710, L101.9900, L3100.5440 ####[facility] [address] [place], [address] ANTI-SS-A < 0.2 Normal 0.0-0.9 [facility] Comment on above: Performed By: #### L 501.6710, L101.9900, L3100.5440 ####[facility] [address] [place], [address] ANTI-SS-B < 0.2 Normal 0.0-0.9 [facility] Comment on above: Performed By: #### L 501.6710, L101.9900, L3100.5440 ####[facility] [address] [place], [address] Bilirubin, totalOrdered By: Duncan Rashid on 03-10-2025 Bilirubin [Mass/Vol] 0.50 mg/dL 0.00-1.30 [facility] CBC W/Diff, Automatedon Absolute Neut Normal 2.0-7.7 [facility] Comment on above: Result Comment: Canc elled via OM: MD Ordered Performed By: #### L 500.4050, L100.0100 ####[facility] [address] [place], [address] HCT Normal 40-54 [facility] Comment on above: Result Comment: Canc elled via OM: MD Ordered Performed By: #### L 500.4050, L100.0100 ####[facility] [address] [place], [address] HGB Normal 13.0-16.5 [facility] Comment on above: Result Comment: Canc elled via OM: MD Ordered Performed By: #### L 500.4050, L100.0100 ####[facility] [address] [place], [address] MCH Normal 27.0-32.0 [facility] Comment on above: Result Comment: Canc elled via OM: MD Ordered Performed By: #### L 500.4050, L100.0100 ####[facility] [address] [place], [address] MCHC Normal 32-36 [facility] Comment on above: Result Comment: Canc elled via OM: MD Ordered Performed By: #### L 500.4050, L100.0100 ####[facility] [address] [place], [address] MCV Normal 80-94 [facility] Comment on above: Result Comment: Canc elled via OM: MD Ordered Performed By: #### L 500.4050, L100.0100 ####[facility] [address] [place], [address] NEUT% Normal 47-70 [facility] Comment on above: Result Comment: Canc elled via OM: MD Ordered Performed By: #### L 500.4050, L100.0100 ####[facility] [address] [place], [address] PLT Normal 150-450 [facility] Comment on above: Result Comment: Canc elled via OM: MD Ordered Performed By: #### L 500.4050, L100.0100 ####[facility] [address] [place], [address] RBC Normal 4.6-6.2 [facility] Comment on above: Result Comment: Canc elled via OM: MD Ordered Performed By: #### L 500.4050, L100.0100 ####[facility] [address] [place], [address] RDW CV Normal 11.6-14.6 [facility] Comment on above: Result Comment: Canc elled via OM: MD Ordered Performed By: #### L 500.4050, L100.0100 ####[facility] [address] [place], [address] RDW SD Normal 35.1-43.9 [facility] Comment on above: Result Comment: Canc elled via OM: MD Ordered Performed By: #### L 500.4050, L100.0100 ####[facility] [address] [place], [address] WBC Normal 4.4-11.0 [facility] Comment on above: Result Comment: Canc elled via OM: MD Ordered Performed By: #### L 500.4050, L100.0100 ####[facility] [address] [place], [address] CBC-Complete Blood Cnt No Di ffon 03-10-2025 Erythrocyte distribution width (RBC) [Ratio] 14.6 % Normal 11.6-14.6 [facility] Comment on above: Performed By: #### L 500.4050, L100.0500 ####[facility] [address] [place], [address] Hematocrit (Bld) [Volume fraction] 37.3 % Low 40-54 [facility] Comment on above: Performed By: #### L 500.4050, L100.0500 ####[facility] [address] [place], [address] Hemoglobin (Bld) [Mass/Vol] 12.2 g/dL Low 13.0-16.5 [facility] Comment on above: Performed By: #### L 500.4050, L100.0500 ####[facility] [address] [place], [address] MCH (RBC) [Entitic mass] 29.3 pg Normal 27.0-32.0 [facility] Comment on above: Performed By: #### L 500.4050, L100.0500 ####[facility] [address] [place], [address] MCHC (RBC) [Mass/Vol] 32.7 g/dL Normal 32-36 [facility] Comment on above: Performed By: #### L 500.4050, L100.0500 ####[facility] [address] [place], [address] MCV (RBC) [Entitic vol] 89.7 fL Normal 80-94 [facility] Comment on above: Performed By: #### L 500.4050, L100.0500 ####[facility] [address] [place], [address] Platelet mean volume (Bld) [Entitic vol] 9.1 fL Normal 6.2-12.0 [facility] Comment on above: Performed By: #### L 500.4050, L100.0500 ####[facility] [address] [place], [address] Platelets (Bld) [#/Vol] 188 10*3/uL Normal 150-450 [facility] Comment on above: Performed By: #### L 500.4050, L100.0500 ####[facility] [address] [place], [address] RBC (Bld) [#/Vol] 4.16 10*6/uL Low 4.6-6.2 [facility] Comment on above: Performed By: #### L 500.4050, L100.0500 ####[facility] [address] [place], [address] RDW SD 48.1 fl High 35.1-43.9 [facility] Comment on above: Performed By: #### L 500.4050, L100.0500 ####[facility] [address] [place], [address] WBC (Bld) [#/Vol] 6.6 10*3/uL Normal 4.4-11.0 [facility] Comment on above: Performed By: #### L 500.4050, L100.0500 ####[facility] [address] [place], [address] Colonoscopy Reporton 025 Colonoscopy Report Normal [facility] Comprehensive Metabolic Prof ilon 03-10-2025 Albumin [Mass/Vol] 4.1 g/dL Normal 3.4-4.8 [facility] Comment on above: Performed By: #### L 500.4050, L100.0500 ####[facility] [address] [place], [address] Albumin/Globulin [Mass ratio] 1.6 {ratio} Normal 0.9-2.4 [facility] Comment on above: Performed By: #### L 500.4050, L100.0500 ####[facility] [address] [place], [address] ALK PHOS 134 U/L High 40-129 [facility] Comment on above: Performed By: #### L 500.4050, L100.0500 ####[facility] [address] [place], [address] ALT [Catalytic activity/Vol] 17 U/L Normal <=46 [facility] Comment on above: Performed By: #### L 500.4050, L100.0500 ####[facility] [address] [place], [address] AST [Catalytic activity/Vol] 22 U/L Normal <=37 [facility] Comment on above: Performed By: #### L 500.4050, L100.0500 ####[facility] [address] [place], [address] Bilirubin [Mass/Vol] 0.50 mg/dL Normal 0.00-1.30 [facility] Comment on above: Performed By: #### L 500.4050, L100.0500 ####[facility] [address] [place], [address] BUN/CRE 10.1 RATIO Normal 10-20 [facility] Comment on above: Performed By: #### L 500.4050, L100.0500 ####[facility] [address] [place], [address] Calcium [Mass/Vol] 8.9 mg/dL Normal 7.6-11.0 [facility] Comment on above: Performed By: #### L 500.4050, L100.0500 ####[facility] [address] [place], [address] Chloride [Moles/Vol] 106 mmol/L Normal 98-108 [facility] Comment on above: Performed By: #### L 500.4050, L100.0500 ####[facility] [address] [place], [address] CO2 [Moles/Vol] 21.0 mmol/L Normal 21.0-32.0 [facility] Comment on above: Performed By: #### L 500.4050, L100.0500 ####[facility] [address] [place], [address] Creatinine [Mass/Vol] 0.99 mg/dL Normal 0.70-1.20 [facility] Comment on above: Performed By: #### L 500.4050, L100.0500 ####[facility] [address] [place], [address] ECRCL 95.99 ml/min Normal 50-250 [facility] Comment on above: Performed By: #### L 500.4050, L100.0500 ####[facility] [address] [place], [address] GAP 12 Normal 5-15 [facility] Comment on above: Performed By: #### L 500.4050, L100.0500 ####[facility] [address] [place], [address] GFR/1.73 sq M.predicted among non-blacks MDRD (S/P/Bld) [Vol rate/Area] 82 mL/min/{1.73_m2} Normal >60 [facility] Comment on above: Result Comment: mL/m in/1.73m2 CKD-EPI Creatinine Equation (2020) Performed By: #### L 500.4050, L100.0500 ####[facility] [address] [place], [address] Globulin (S) [Mass/Vol] 2.5 g/dL Normal 2.2-4.2 [facility] Comment on above: Performed By: #### L 500.4050, L100.0500 ####[facility] [address] [place], [address] Glucose [Mass/Vol] 98 mg/dL Normal 70-99 [facility] Comment on above: Performed By: #### L 500.4050, L100.0500 ####[facility] [address] [place], [address] Potassium [Moles/Vol] 3.4 mmol/L Normal 3.3-5.1 [facility] Comment on above: Performed By: #### L 500.4050, L100.0500 ####[facility] [address] [place], [address] Sodium [Moles/Vol] 139 mmol/L Normal 133-145 [facility] Comment on above: Performed By: #### L 500.4050, L100.0500 ####[facility] [address] [place], [address] T PROT 6.6 g/dL Normal 5.9-8.4 [facility] Comment on above: Performed By: #### L 500.4050, L100.0500 ####[facility] [address] [place], [address] Urea nitrogen [Mass/Vol] 10 mg/dL Normal 4-19 [facility] Comment on above: Performed By: #### L 500.4050, L100.0500 ####[facility] [address] [place], [address] ALB Normal 3.4-4.8 [facility] Comment on above: Result Comment: Canc elled via OM: MD Ordered Performed By: #### L 500.4050, L100.0100 ####[facility] [address] [place], [address] ALK PHOS Normal 40-129 [facility] Comment on above: Result Comment: Canc elled via OM: MD Ordered Performed By: #### L 500.4050, L100.0100 ####[facility] [address] [place], [address] ALT Normal <=46 [facility] Comment on above: Result Comment: Canc elled via OM: MD Ordered Performed By: #### L 500.4050, L100.0100 ####[facility] [address] [place], [address] AST Normal <=37 [facility] Comment on above: Result Comment: Canc elled via OM: MD Ordered Performed By: #### L 500.4050, L100.0100 ####[facility] [address] [place], [address] BUN Normal 4-19 [facility] Comment on above: Result Comment: Canc elled via OM: MD Ordered Performed By: #### L 500.4050, L100.0100 ####[facility] [address] [place], [address] BUN/CRE Normal 10-20 [facility] Comment on above: Result Comment: Canc elled via OM: MD Ordered Performed By: #### L 500.4050, L100.0100 ####[facility] [address] [place], [address] Calcium Normal 7.6-11.0 [facility] Comment on above: Result Comment: Canc elled via OM: MD Ordered Performed By: #### L 500.4050, L100.0100 ####[facility] [address] [place], [address] CL Normal 98-108 [facility] Comment on above: Result Comment: Canc elled via OM: MD Ordered Performed By: #### L 500.4050, L100.0100 ####[facility] [address] [place], [address] CO2 Normal 21.0-32.0 [facility] Comment on above: Result Comment: Canc elled via OM: MD Ordered Performed By: #### L 500.4050, L100.0100 ####[facility] [address] [place], [address] CREAT,SERUM Normal 0.70-1.20 [facility] Comment on above: Result Comment: Canc elled via OM: MD Ordered Performed By: #### L 500.4050, L100.0100 ####[facility] [address] [place], [address] eGFR Normal >60 [facility] Comment on above: Result Comment: Canc elled via OM: MD Ordered Performed By: #### L 500.4050, L100.0100 ####[facility] [address] [place], [address] GAP Normal 5-15 [facility] Comment on above: Result Comment: Canc elled via OM: MD Ordered Performed By: #### L 500.4050, L100.0100 ####[facility] [address] [place], [address] GLU Normal 70-99 [facility] Comment on above: Result Comment: Canc elled via OM: MD Ordered Performed By: #### L 500.4050, L100.0100 ####[facility] [address] [place], [address] Potassium Normal 3.3-5.1 [facility] Comment on above: Result Comment: Canc elled via OM: MD Ordered Performed By: #### L 500.4050, L100.0100 ####[facility] [address] [place], [address] T BILI Normal 0.00-1.30 [facility] Comment on above: Result Comment: Canc elled via OM: MD Ordered Performed By: #### L 500.4050, L100.0100 ####[facility] [address] [place], [address] T PROT Normal 5.9-8.4 [facility] Comment on above: Result Comment: Canc elled via OM: MD Ordered Performed By: #### L 500.4050, L100.0100 ####[facility] [address] [place], [address] Comprehensive Metabolic Profil Normal 133-145 [facility] Comment on above: Result Comment: Canc elled via OM: MD Ordered Performed By: #### L 500.4050, L100.0100 ####[facility] [address] [place], [address] EGD Reporton 03-10-2025 EGD Report Normal [facility] Laboratory - Chemistry and C hemistry - challengeOrdered By: Duncan Rashid on 03-10-2025 AST [Catalytic activity/Vol] 22 U/L <38 [facility] MR/OP.PROVATon 03-10-2025 MR/OP.PROVAT Normal [facility] MR/OP.PROVAT Normal [facility] MR/POSTOP.ANEon 03-10-2025 MR/POSTOP.ANE Normal [facility] MR/NQTHGHTI6hw 03-10-2025 MR/POSTOPAN2 Normal [facility] Serum globulin measurementOr dered By: Duncan Rashid on 03-10-2025 Globulin (S) [Mass/Vol] 2.5 g/dL 2.2-4.2 [facility] Serum or plasma alanine hernandez otransferase (ALT) measurementOrdered By: Duncan Rashid on 03-10-2025 ALT [Catalytic activity/Vol] 17 U/L <47 [facility] Serum or plasma albumin mickie urement (mass/volume)Ordered By: Duncan Rashid on 03-10-2025 Albumin [Mass/Vol] 4.1 g/dL 3.4-4.8 [facility] Serum or plasma albumin/glob ulin mass ratioOrdered By: Duncan Rashid on 03-10-2025 Albumin/Globulin [Mass ratio] 1.6 {ratio} 0.9-2.4 [facility] Serum or plasma alkaline anna sphatase measurementOrdered By: Duncan Rashid on 03-10-2025 ALP [Catalytic activity/Vol] 134 U/L High 40-129 [facility] Surgery Specimen Level Kristina 03-10-2025 Surgery Specimen Level IV Normal [facility] Comment on above: Performed By: #### P SUIV ####[facility] [address] [place], [place], [id number] Total proteinOrdered By: Monica Rashid on 03-10-2025 Protein [Mass/Vol] 6.6 g/dL 5.9-8.4 [facility] Activated partial thrombopla stin time (aPTT) in platelet poor plasma by coagulation aOrdered By: Douglas Mcduffie on 03-09-2025 aPTT Coag (PPP) [Time] 34.0 s 24.1-36.[address] [facility] Bedside Glucoseon 03-09-2025 FINGERSTICK GLU 106 mg/dL Normal 74-106 [facility] Comment on above: Result Comment: MARIA ELENA GEMENT OF PATIENT CARE PER NURSING PROTOCOL Performed By: #### L 501.080 ####[facility] [address] [place], [address] CBC W/Diff, Automatedon 08-0 4-2024 Absolute Lymph 1.49 X10 3/uL Normal 0.83-4.51 [facility] Comment on above: Performed By: #### L 100.0100, L500.4050 ####[facility] [address] [place], [address] Absolute Neut 4.0 X10 3/uL Normal 2.0-7.7 [facility] Comment on above: Performed By: #### L 100.0100, L500.4050 ####[facility] [address] [place], [address] Basophils/100 WBC (Bld) 0.5 % Normal 0-1 [facility] Comment on above: Performed By: #### L 100.0100, L500.4050 ####[facility] [address] [place], [address] Eosinophils/100 WBC (Bld) 4.3 % Normal 0-5 [facility] Comment on above: Performed By: #### L 100.0100, L500.4050 ####[facility] [address] [place], [address] Erythrocyte distribution width (RBC) [Ratio] 14.6 % Normal 11.6-14.6 [facility] Comment on above: Performed By: #### L 100.0100, L500.4050 ####[facility] [address] [place], [address] Hematocrit (Bld) [Volume fraction] 36.1 % Low 40-54 [facility] Comment on above: Performed By: #### L 100.0100, L500.4050 ####[facility] [address] [place], [address] Hemoglobin (Bld) [Mass/Vol] 11.7 g/dL Low 13.0-16.5 [facility] Comment on above: Performed By: #### L 100.0100, L500.4050 ####[facility] [address] [place], [address] IG% 0.300 Normal 0.0-0.9 [facility] Comment on above: Result Comment: IG% - Immature Granulocytes (promyelocytes, myelocytes andmetamyelocytes) > 1% indicates that a LEFT SHIFT is Present. Performed By: #### L 100.0100, L500.4050 ####[facility] [address] [place], [address] Lymphocytes/100 WBC (Bld) 23.8 % Normal 19-41 [facility] Comment on above: Performed By: #### L 100.0100, L500.4050 ####[facility] [address] [place], [address] MCH (RBC) [Entitic mass] 29.0 pg Normal 27.0-32.0 [facility] Comment on above: Performed By: #### L 100.0100, L500.4050 ####[facility] [address] [place], [address] MCHC (RBC) [Mass/Vol] 32.4 g/dL Normal 32-36 [facility] Comment on above: Performed By: #### L 100.0100, L500.4050 ####[facility] [address] [place], [address] MCV (RBC) [Entitic vol] 89.4 fL Normal 80-94 [facility] Comment on above: Performed By: #### L 100.0100, L500.4050 ####[facility] [address] [place], [address] Monocytes/100 WBC (Bld) 6.7 % Normal 0-10 [facility] Comment on above: Performed By: #### L 100.0100, L500.4050 ####[facility] [address] [place], [address] Neutrophils/100 WBC (Bld) 64.4 % Normal 47-70 [facility] Comment on above: Performed By: #### L 100.0100, L500.4050 ####[facility] [address] [place], [address] Nucleated RBC (Bld) [#/Vol] 0 10*3/uL Normal 0-5 [facility] Comment on above: Performed By: #### L 100.0100, L500.4050 ####[facility] [address] [place], [address] Platelet mean volume (Bld) [Entitic vol] 8.6 fL Normal 6.2-12.0 [facility] Comment on above: Performed By: #### L 100.0100, L500.4050 ####[facility] [address] [place], [address] Platelets (Bld) [#/Vol] 174 10*3/uL Normal 150-450 [facility] Comment on above: Performed By: #### L 100.0100, L500.4050 ####[facility] [address] [place], [address] RBC (Bld) [#/Vol] 4.04 10*6/uL Low 4.6-6.2 [facility] Comment on above: Performed By: #### L 100.0100, L500.4050 ####[facility] [address] [place], [address] RDW SD 47.8 fl High 35.1-43.9 [facility] Comment on above: Performed By: #### L 100.0100, L500.4050 ####[facility] [address] [place], [address] WBC (Bld) [#/Vol] 6.3 10*3/uL Normal 4.4-11.0 [facility] Comment on above: Performed By: #### L 100.0100, L500.4050 ####[facility] [address] [place], [address] Comprehensive Metabolic Prof ilon 03-09-2025 Albumin [Mass/Vol] 4.0 g/dL Normal 3.4-4.8 [facility] Comment on above: Performed By: #### L 100.0100, L500.4050 ####[facility] [address] [place], [address] Albumin/Globulin [Mass ratio] 1.7 {ratio} Normal 0.9-2.4 [facility] Comment on above: Performed By: #### L 100.0100, L500.4050 ####[facility] [address] [place], [address] ALK PHOS 127 U/L Normal 40-129 [facility] Comment on above: Performed By: #### L 100.0100, L500.4050 ####[facility] [address] [place], [address] ALT [Catalytic activity/Vol] 16 U/L Normal <=46 [facility] Comment on above: Performed By: #### L 100.0100, L500.4050 ####[facility] [address] [place], [address] AST [Catalytic activity/Vol] 20 U/L Normal <=37 [facility] Comment on above: Performed By: #### L 100.0100, L500.4050 ####[facility] [address] [place], [address] Bilirubin [Mass/Vol] 0.40 mg/dL Normal 0.00-1.30 [facility] Comment on above: Performed By: #### L 100.0100, L500.4050 ####[facility] [address] [place], [address] BUN/CRE 10.1 RATIO Normal 10-20 [facility] Comment on above: Performed By: #### L 100.0100, L500.4050 ####[facility] [address] [place], [address] Calcium [Mass/Vol] 8.7 mg/dL Normal 7.6-11.0 [facility] Comment on above: Performed By: #### L 100.0100, L500.4050 ####[facility] [address] [place], [address] Chloride [Moles/Vol] 106 mmol/L Normal 98-108 [facility] Comment on above: Performed By: #### L 100.0100, L500.4050 ####[facility] [address] [place], [address] CO2 [Moles/Vol] 20.2 mmol/L Low 21.0-32.0 [facility] Comment on above: Performed By: #### L 100.0100, L500.4050 ####[facility] [address] [place], [address] Creatinine [Mass/Vol] 1.05 mg/dL Normal 0.70-1.20 [facility] Comment on above: Performed By: #### L 100.0100, L500.4050 ####[facility] [address] [place], [address] ECRCL 90.50 ml/min Normal 50-250 [facility] Comment on above: Performed By: #### L 100.0100, L500.4050 ####[facility] [address] [place], [address] GAP 13 Normal 5-15 [facility] Comment on above: Performed By: #### L 100.0100, L500.4050 ####[facility] [address] [place], [address] GFR/1.73 sq M.predicted among non-blacks MDRD (S/P/Bld) [Vol rate/Area] 76 mL/min/{1.73_m2} Normal >60 [facility] Comment on above: Result Comment: mL/m in/1.73m2 CKD-EPI Creatinine Equation (2020) Performed By: #### L 100.0100, L500.4050 ####[facility] [address] [place], [address] Globulin (S) [Mass/Vol] 2.3 g/dL Normal 2.2-4.2 [facility] Comment on above: Performed By: #### L 100.0100, L500.4050 ####[facility] [address] [place], [address] Glucose [Mass/Vol] 106 mg/dL High 70-99 [facility] Comment on above: Performed By: #### L 100.0100, L500.4050 ####[facility] [address] [place], [address] Potassium [Moles/Vol] 3.2 mmol/L Low 3.3-5.1 [facility] Comment on above: Performed By: #### L 100.0100, L500.4050 ####[facility] [address] [place], [address] Sodium [Moles/Vol] 139 mmol/L Normal 133-145 [facility] Comment on above: Performed By: #### L 100.0100, L500.4050 ####[facility] [address] [place] [place], [address] T PROT 6.4 g/dL Normal 5.9-8.4 [facility] Comment on above: Performed By: #### L 100.0100, L500.4050 ####[facility] [address] [place], [address] Urea nitrogen [Mass/Vol] 11 mg/dL Normal 4-19 [facility] Comment on above: Performed By: #### L 100.0100, L500.4050 ####[facility] [address] [place], [address] Electrocardiogram reportOrde red By: Pipe Salguero on 03-09-2025 EKG study [facility] [address] [place] [address] 12 Lead EKG 03/05/25 1204 MR#: [id number] Acct: [id number] Name: EDER BREEN Rep #:4 : [id number] From: Pipe Salguero MD Attending Dr: Dr. Duncan Rashid DO Status: ADM IN Ordering Dr: Rustam Warren MD Date: Location: [facility] [place] Sex: M C Admitted: 03/08/25 Test Reason : SOB Blood Pressure : */* mmHG Vent. Rate : 83 BPM Atrial Rate : 83 BPM P-R Int : 212 ms QRS Dur : 80 ms QT Int : 392 ms P-R-T Axes : 45 27 39 degrees QTcB Int : 460 ms Sinus rhythm with 1st degree A-V block Otherwise normal ECG Confirmed by PIPE SALGUERO MD ([id number]), editor city SAL BRAVO ([id number]) on 03/09/2025 8:18:06 AM Referred By: Confirmed By: PIPE SALGUERO MD 03/09/25 0818 Date _ Pipe Salguero MD CC: Dr. Rustam Warren MD; Dr. Duncan Rashid DO; Dr. Hari Oneill DO ~ Signed [facility] Other Phone: International normalized rat io (INR) calculationOrdered By: Danae Stanton on 03-09-2025 INR Coag (Bld) [Relative time] 3.4 {INR} [facility] Magnesiumon 03-09-2025 Magnesium [Mass/Vol] 2.1 mg/dL Normal 1.5-2.2 [facility] Comment on above: Performed By: #### L 501.5200, L501.2300 ####[facility] [address] [place], [address] Partial Thromboplast Timeon 03-09-2025 aPTT Coag (Bld) [Time] 34.0 s Normal 24.1-36.[address] [facility] Comment on above: Performed By: #### L 300.3900, L300.4310 ####[facility] [address] [place], [address] Phosphoruson 03-09-2025 Phosphate [Mass/Vol] 3.5 mg/dL Normal 2.7-4.5 [facility] Comment on above: Performed By: #### L 501.5200, L501.2300 ####[facility] [address] [place], [address] Prothrombin Time w/INRon INR Coag (PPP) [Relative time] 3.4 {INR} Normal [facility] Comment on above: Performed By: #### L 300.3900, L300.4310 ####[facility] [address] [place], [address] PT Coag (PPP) [Time] 35.1 s High 11.7-14.9 [facility] Comment on above: Performed By: #### L 300.3900, L300.4310 ####[facility] [address] [place], [address] Prothrombin timeOrdered By: Danae Stanton on 03-09-2025 PT Coag (PPP) [Time] 35.1 s High 11.7-14.9 [facility] Basic Metabolic Profile (BMP )on 03-08-2025 BUN Normal 4-19 [facility] Comment on above: Result Comment: Canc elled via OM: Order cancelled - Patient discharged Performed By: #### L 100.0100, L500.2500 ####[facility] [address] [place], [address] BUN/CRE Normal 10-20 [facility] Comment on above: Result Comment: Canc elled via OM: Order cancelled - Patient discharged Performed By: #### L 100.0100, L500.2500 ####[facility] [address] [place], [address] Calcium Normal 7.6-11.0 [facility] Comment on above: Result Comment: Canc elled via OM: Order cancelled - Patient discharged Performed By: #### L 100.0100, L500.2500 ####[facility] [address] [place], [address] CL Normal 98-108 [facility] Comment on above: Result Comment: Canc elled via OM: Order cancelled - Patient discharged Performed By: #### L 100.0100, L500.2500 ####[facility] [address] [place], [address] CO2 Normal 21.0-32.0 [facility] Comment on above: Result Comment: Canc elled via OM: Order cancelled - Patient discharged Performed By: #### L 100.0100, L500.2500 ####[facility] [address] [place], [address] CREAT,SERUM Normal 0.70-1.20 [facility] Comment on above: Result Comment: Canc elled via OM: Order cancelled - Patient discharged Performed By: #### L 100.0100, L500.2500 ####[facility] [address] [place], [address] eGFR Normal >60 [facility] Comment on above: Result Comment: Canc elled via OM: Order cancelled - Patient discharged Performed By: #### L 100.0100, L500.2500 ####[facility] [address] [place], [address] GAP Normal 5-15 [facility] Comment on above: Result Comment: Canc elled via OM: Order cancelled - Patient discharged Performed By: #### L 100.0100, L500.2500 ####[facility] [address] [place], [address] GLU Normal 70-99 [facility] Comment on above: Result Comment: Canc elled via OM: Order cancelled - Patient discharged Performed By: #### L 100.0100, L500.2500 ####[facility] [address] [place], [address] Potassium Normal 3.3-5.1 [facility] Comment on above: Result Comment: Canc elled via OM: Order cancelled - Patient discharged Performed By: #### L 100.0100, L500.2500 ####[facility] [address] [place], [address] Basic Metabolic Profile (BMP) Normal 133-145 [facility] Comment on above: Result Comment: Canc elled via OM: Order cancelled - Patient discharged Performed By: #### L 100.0100, L500.2500 ####[facility] [address] [place], [address] CBC W/Diff, Automatedon 08-0 Absolute Neut Normal 2.0-7.7 [facility] Comment on above: Result Comment: Canc elled via OM: Order cancelled - Patient discharged Performed By: #### L 100.0100, L500.2500 ####[facility] [address] [place], [address] HCT Normal 40-54 [facility] Comment on above: Result Comment: Canc elled via OM: Order cancelled - Patient discharged Performed By: #### L 100.0100, L500.2500 ####[facility] [address] [place], [address] HGB Normal 13.0-16.5 [facility] Comment on above: Result Comment: Canc elled via OM: Order cancelled - Patient discharged Performed By: #### L 100.0100, L500.2500 ####[facility] [address] [place], [address] MCH Normal 27.0-32.0 [facility] Comment on above: Result Comment: Canc elled via OM: Order cancelled - Patient discharged Performed By: #### L 100.0100, L500.2500 ####[facility] [address] [place], [address] MCHC Normal 32-36 [facility] Comment on above: Result Comment: Canc elled via OM: Order cancelled - Patient discharged Performed By: #### L 100.0100, L500.2500 ####[facility] [address] [place], [address] MCV Normal 80-94 [facility] Comment on above: Result Comment: Canc elled via OM: Order cancelled - Patient discharged Performed By: #### L 100.0100, L500.2500 ####[facility] [address] [place], [address] NEUT% Normal 47-70 [facility] Comment on above: Result Comment: Canc elled via OM: Order cancelled - Patient discharged Performed By: #### L 100.0100, L500.2500 ####[facility] [address] [place], [address] PLT Normal 150-450 [facility] Comment on above: Result Comment: Canc elled via OM: Order cancelled - Patient discharged Performed By: #### L 100.0100, L500.2500 ####[facility] [address] [place], [address] RBC Normal 4.6-6.2 [facility] Comment on above: Result Comment: Canc elled via OM: Order cancelled - Patient discharged Performed By: #### L 100.0100, L500.2500 ####[facility] [address] [place], [address] RDW CV Normal 11.6-14.6 [facility] Comment on above: Result Comment: Canc elled via OM: Order cancelled - Patient discharged Performed By: #### L 100.0100, L500.2500 ####[facility] [address] [place], [address] RDW SD Normal 35.1-43.9 [facility] Comment on above: Result Comment: Canc elled via OM: Order cancelled - Patient discharged Performed By: #### L 100.0100, L500.2500 ####[facility] [address] [place], [address] WBC Normal 4.4-11.0 [facility] Comment on above: Result Comment: Canc elled via OM: Order cancelled - Patient discharged Performed By: #### L 100.0100, L500.2500 ####[facility] [address] [place], [address] Absolute Lymph 1.33 X10 3/uL Normal 0.83-4.51 [facility] Comment on above: Performed By: #### L 500.4050, L100.0100 ####[facility] [address] [place], [address] Absolute Neut 4.2 X10 3/uL Normal 2.0-7.7 [facility] Comment on above: Performed By: #### L 500.4050, L100.0100 ####[facility] [address] [place], [address] Basophils/100 WBC (Bld) 0.5 % Normal 0-1 [facility] Comment on above: Performed By: #### L 500.4050, L100.0100 ####[facility] [address] [place], [address] Eosinophils/100 WBC (Bld) 4.0 % Normal 0-5 [facility] Comment on above: Performed By: #### L 500.4050, L100.0100 ####[facility] [address] [place], [address] Erythrocyte distribution width (RBC) [Ratio] 14.7 % High 11.6-14.6 [facility] Comment on above: Performed By: #### L 500.4050, L100.0100 ####[facility] [address] [place], [address] Hematocrit (Bld) [Volume fraction] 36.0 % Low 40-54 [facility] Comment on above: Performed By: #### L 500.4050, L100.0100 ####[facility] [address] [place], [address] Hemoglobin (Bld) [Mass/Vol] 11.8 g/dL Low 13.0-16.5 [facility] Comment on above: Performed By: #### L 500.4050, L100.0100 ####[facility] [address] [place], [address] IG% 0.300 Normal 0.0-0.9 [facility] Comment on above: Result Comment: IG% - Immature Granulocytes (promyelocytes, myelocytes andmetamyelocytes) > 1% indicates that a LEFT SHIFT is Present. Performed By: #### L 500.4050, L100.0100 ####[facility] [address] [place], [address] Lymphocytes/100 WBC (Bld) 21.2 % Normal 19-41 [facility] Comment on above: Performed By: #### L 500.4050, L100.0100 ####[facility] [address] [place], [address] MCH (RBC) [Entitic mass] 29.3 pg Normal 27.0-32.0 [facility] Comment on above: Performed By: #### L 500.4050, L100.0100 ####[facility] [address] [place], [address] MCHC (RBC) [Mass/Vol] 32.8 g/dL Normal 32-36 [facility] Comment on above: Performed By: #### L 500.4050, L100.0100 ####[facility] [address] [place], [address] MCV (RBC) [Entitic vol] 89.3 fL Normal 80-94 [facility] Comment on above: Performed By: #### L 500.4050, L100.0100 ####[facility] [address] [place], [address] Monocytes/100 WBC (Bld) 7.2 % Normal 0-10 [facility] Comment on above: Performed By: #### L 500.4050, L100.0100 ####[facility] [address] [place], [address] Neutrophils/100 WBC (Bld) 66.8 % Normal 47-70 [facility] Comment on above: Performed By: #### L 500.4050, L100.0100 ####[facility] [address] [place], [address] Nucleated RBC (Bld) [#/Vol] 0 10*3/uL Normal 0-5 [facility] Comment on above: Performed By: #### L 500.4050, L100.0100 ####[facility] [address] [place], [address] Platelet mean volume (Bld) [Entitic vol] 8.6 fL Normal 6.2-12.0 [facility] Comment on above: Performed By: #### L 500.4050, L100.0100 ####[facility] [address] [place], [address] Platelets (Bld) [#/Vol] 201 10*3/uL Normal 150-450 [facility] Comment on above: Performed By: #### L 500.4050, L100.0100 ####[facility] [address] [place], [address] RBC (Bld) [#/Vol] 4.03 10*6/uL Low 4.6-6.2 [facility] Comment on above: Performed By: #### L 500.4050, L100.0100 ####[facility] [address] [place], [address] RDW SD 47.9 fl High 35.1-43.9 [facility] Comment on above: Performed By: #### L 500.4050, L100.0100 ####[facility] [address] [place], [address] WBC (Bld) [#/Vol] 6.3 10*3/uL Normal 4.4-11.0 [facility] Comment on above: Performed By: #### L 500.4050, L100.0100 ####[facility] [address] [place], [address] Comprehensive Metabolic Prof [facility] 03-08-2025 Albumin [Mass/Vol] 4.1 g/dL Normal 3.4-4.8 [facility] Comment on above: Performed By: #### L 500.4050, L100.0100 ####[facility] [address] [place], [address] Albumin/Globulin [Mass ratio] 1.7 {ratio} Normal 0.9-2.4 [facility] Comment on above: Performed By: #### L 500.4050, L100.0100 ####[facility] [address] [place], [address] ALK PHOS 124 U/L Normal 40-129 [facility] Comment on above: Performed By: #### L 500.4050, L100.0100 ####[facility] [address] [place], [address] ALT [Catalytic activity/Vol] 18 U/L Normal <=46 [facility] Comment on above: Performed By: #### L 500.4050, L100.0100 ####[facility] [address] [place], [address] AST [Catalytic activity/Vol] 21 U/L Normal <=37 [facility] Comment on above: Performed By: #### L 500.4050, L100.0100 ####[facility] [address] [place], [address] Bilirubin [Mass/Vol] 0.41 mg/dL Normal 0.00-1.30 [facility] Comment on above: Performed By: #### L 500.4050, L100.0100 ####[facility] [address] [place], [address] BUN/CRE 11.8 RATIO Normal 10-20 [facility] Comment on above: Performed By: #### L 500.4050, L100.0100 ####[facility] [address] [place], [address] Calcium [Mass/Vol] 8.9 mg/dL Normal 7.6-11.0 [facility] Comment on above: Performed By: #### L 500.4050, L100.0100 ####[facility] [address] [place], [address] Chloride [Moles/Vol] 107 mmol/L Normal 98-108 [facility] Comment on above: Performed By: #### L 500.4050, L100.0100 ####[facility] [address] [place], [address] CO2 [Moles/Vol] 22.5 mmol/L Normal 21.0-32.0 [facility] Comment on above: Performed By: #### L 500.4050, L100.0100 ####[facility] [address] [place], [address] Creatinine [Mass/Vol] 0.96 mg/dL Normal 0.70-1.20 [facility] Comment on above: Performed By: #### L 500.4050, L100.0100 ####[facility] [address] [place], [address] ECRCL 98.99 ml/min Normal 50-250 [facility] Comment on above: Performed By: #### L 500.4050, L100.0100 ####[facility] [address] [place], [address] GAP 11 Normal 5-15 [facility] Comment on above: Performed By: #### L 500.4050, L100.0100 ####[facility] [address] [place], [address] GFR/1.73 sq M.predicted among non-blacks MDRD (S/P/Bld) [Vol rate/Area] 85 mL/min/{1.73_m2} Normal >60 [facility] Comment on above: Result Comment: mL/m in/1.73m2 CKD-EPI Creatinine Equation (2020) Performed By: #### L 500.4050, L100.0100 ####[facility] [address] [place], [address] Globulin (S) [Mass/Vol] 2.4 g/dL Normal 2.2-4.2 [facility] Comment on above: Performed By: #### L 500.4050, L100.0100 ####[facility] [address] [place], [address] Glucose [Mass/Vol] 97 mg/dL Normal 70-99 [facility] Comment on above: Performed By: #### L 500.4050, L100.0100 ####[facility] [address] [place], [address] Potassium [Moles/Vol] 3.3 mmol/L Normal 3.3-5.1 [facility] Comment on above: Performed By: #### L 500.4050, L100.0100 ####[facility] [address] [place], [address] Sodium [Moles/Vol] 141 mmol/L Normal 133-145 [facility] Comment on above: Performed By: #### L 500.4050, L100.0100 ####[facility] [address] [place], [address] T PROT 6.5 g/dL Normal 5.9-8.4 [facility] Comment on above: Performed By: #### L 500.4050, L100.0100 ####[facility] [address] [place], [address] Urea nitrogen [Mass/Vol] 11 mg/dL Normal 4-19 [facility] Comment on above: Performed By: #### L 500.4050, L100.0100 ####[facility] [address] [place], [address] ENTERIC PATHOGEN PANEL STOOL on 03-08-2025 EP PANEL Normal [facility] Comment on above: Performed By: #### M 100.0605, M100.637 ####[facility] [address] [place], [place], [address] Prothrombin Time w/INRon INR Coag (PPP) [Relative time] 3.6 {INR} Normal [facility] [facility] Comment on above: Performed By: #### L 300.3900 ####[facility] [address] [place], [address] PT Coag (PPP) [Time] 36.7 s High 11.7-14.9 [facility] Comment on above: Performed By: #### L 300.3900 ####[facility] [address] [place], [address] Serum DNA double strand anti body assay (units/volume)Ordered By: Luis A Singh on 03-08-2025 DNA double strand Ab Qn (S) [IU]/mL 0-9 [facility] Comment on above: Negative <5 Equivoca l 5 - 9 Positive >9 Serum Scl-70 antibody assay (units/volume)Ordered By: Luis A Singh on 03-08-2025 SCL-70 extractable nuclear Ab Qn (S) <0.2 AI 0.0-0.9 [facility] Comment on above: Previous reported re sult: TNP AIEdited by: FLIP on 03/10/25:1308 AMENDED REPORT 03/10/25 1308 ANTISCLER previously reported as: Test not performed Stool Lactoferrin/WBCon WBCST Normal Reference Ran ge = Negative Fecal WBC Lactoferrin Negative: No Fecal WBC Lactoferrin present Normal [facility] Comment on above: Performed By: #### M 100.0605, M100.637 ####[facility] [address] [place], [address] Stool lactoferrin detection by immunoassayOrdered By: Luis A Singh on 03-08-2025 Lactoferrin IA Ql (Stl) [facility] Basic Metabolic Profile (BMP )on 03-07-2025 BUN Normal 4-19 [facility] Comment on above: Result Comment: Canc elled via OM: Order cancelled - Patient discharged Performed By: #### L 100.0100, L500.2500 ####[facility] [address] [place], [address] BUN/CRE Normal 10-20 [facility] Comment on above: Result Comment: Canc elled via OM: Order cancelled - Patient discharged Performed By: #### L 100.0100, L500.2500 ####[facility] [address] [place], [address] Calcium Normal 7.6-11.0 [facility] Comment on above: Result Comment: Canc elled via OM: Order cancelled - Patient discharged Performed By: #### L 100.0100, L500.2500 ####[facility] [address] [place], [address] CL Normal 98-108 [facility] Comment on above: Result Comment: Canc elled via OM: Order cancelled - Patient discharged Performed By: #### L 100.0100, L500.2500 ####[facility] [address] [place], [address] CO2 Normal 21.0-32.0 [facility] Comment on above: Result Comment: Canc elled via OM: Order cancelled - Patient discharged Performed By: #### L 100.0100, L500.2500 ####[facility] [address] [place], [address] CREAT,SERUM Normal 0.70-1.20 [facility] Comment on above: Result Comment: Canc elled via OM: Order cancelled - Patient discharged Performed By: #### L 100.0100, L500.2500 ####[facility] [address] [place], [address] eGFR Normal >60 [facility] Comment on above: Result Comment: Canc elled via OM: Order cancelled - Patient discharged Performed By: #### L 100.0100, L500.2500 ####[facility] [address] [place], [address] GAP Normal 5-15 [facility] Comment on above: Result Comment: Canc elled via OM: Order cancelled - Patient discharged Performed By: #### L 100.0100, L500.2500 ####[facility] [address] [place], [address] GLU Normal 70-99 [facility] Comment on above: Result Comment: Canc elled via OM: Order cancelled - Patient discharged Performed By: #### L 100.0100, L500.2500 ####[facility] [address] [place], [address] Potassium Normal 3.3-5.1 [facility] Comment on above: Result Comment: Canc elled via OM: Order cancelled - Patient discharged Performed By: #### L 100.0100, L500.2500 ####[facility] [address] [place], [address] Basic Metabolic Profile (BMP) Normal 133-145 [facility] Comment on above: Result Comment: Canc elled via OM: Order cancelled - Patient discharged Performed By: #### L 100.0100, L500.2500 ####[facility] [address] [place], [address] CBC W/Diff, Automatedon 08-0 2-2024 Absolute Lymph 1.46 X10 3/uL Normal 0.83-4.51 [facility] Comment on above: Performed By: #### L 500.4050, L100.0100 ####[facility] [address] [place], [address] Absolute Neut 3.2 X10 3/uL Normal 2.0-7.7 [facility] Comment on above: Performed By: #### L 500.4050, L100.0100 ####[facility] [address] [place], [address] Basophils/100 WBC (Bld) 0.7 % Normal 0-1 [facility] Comment on above: Performed By: #### L 500.4050, L100.0100 ####[facility] [address] [place], [address] Eosinophils/100 WBC (Bld) 4.6 % Normal 0-5 [facility] Comment on above: Performed By: #### L 500.4050, L100.0100 ####[facility] [address] [place], [address] Erythrocyte distribution width (RBC) [Ratio] 14.6 % Normal 11.6-14.6 [facility] Comment on above: Performed By: #### L 500.4050, L100.0100 ####[facility] [address] [place], [address] Hematocrit (Bld) [Volume fraction] 36.1 % Low 40-54 [facility] Comment on above: Performed By: #### L 500.4050, L100.0100 ####[facility] [address] [place], [address] Hemoglobin (Bld) [Mass/Vol] 11.7 g/dL Low 13.0-16.5 [facility] Comment on above: Performed By: #### L 500.4050, L100.0100 ####[facility] [address] [place], [address] IG% 0.400 Normal 0.0-0.9 [facility] Comment on above: Result Comment: IG% - Immature Granulocytes (promyelocytes, myelocytes andmetamyelocytes) > 1% indicates that a LEFT SHIFT is Present. Performed By: #### L 500.4050, L100.0100 ####[facility] [address] [place], [address] Lymphocytes/100 WBC (Bld) 26.8 % Normal 19-41 [facility] Comment on above: Performed By: #### L 500.4050, L100.0100 ####[facility] [address] [place], [address] MCH (RBC) [Entitic mass] 29.0 pg Normal 27.0-32.0 [facility] Comment on above: Performed By: #### L 500.4050, L100.0100 ####[facility] [address] [place], [address] MCHC (RBC) [Mass/Vol] 32.4 g/dL Normal 32-36 [facility] Comment on above: Performed By: #### L 500.4050, L100.0100 ####[facility] [address] [place], [address] MCV (RBC) [Entitic vol] 89.6 fL Normal 80-94 [facility] Comment on above: Performed By: #### L 500.4050, L100.0100 ####[facility] [address] [place], [address] Monocytes/100 WBC (Bld) 9.0 % Normal 0-10 [facility] Comment on above: Performed By: #### L 500.4050, L100.0100 ####[facility] [address] [place], [address] Neutrophils/100 WBC (Bld) 58.5 % Normal 47-70 [facility] Comment on above: Performed By: #### L 500.4050, L100.0100 ####[facility] [address] [place], [address] Nucleated RBC (Bld) [#/Vol] 0 10*3/uL Normal 0-5 [facility] Comment on above: Performed By: #### L 500.4050, L100.0100 ####[facility] [address] [place], [address] Platelet mean volume (Bld) [Entitic vol] 9.3 fL Normal 6.2-12.0 [facility] Comment on above: Performed By: #### L 500.4050, L100.0100 ####[facility] [address] [place], [address] Platelets (Bld) [#/Vol] 197 10*3/uL Normal 150-450 [facility] Comment on above: Performed By: #### L 500.4050, L100.0100 ####[facility] [address] [place], [address] RBC (Bld) [#/Vol] 4.03 10*6/uL Low 4.6-6.2 [facility] Comment on above: Performed By: #### L 500.4050, L100.0100 ####[facility] [address] [place], [address] RDW SD 47.8 fl High 35.1-43.9 [facility] Comment on above: Performed By: #### L 500.4050, L100.0100 ####[facility] [address] [place], [address] WBC (Bld) [#/Vol] 5.5 10*3/uL Normal 4.4-11.0 [facility] Comment on above: Performed By: #### L 500.4050, L100.0100 ####[facility] [address] [place], [address] Absolute Neut Normal 2.0-7.7 [facility] Comment on above: Result Comment: Canc elled via OM: Order cancelled - Patient discharged Performed By: #### L 100.0100, L500.2500 ####[facility] [address] [place], [address] HCT Normal 40-54 [facility] Comment on above: Result Comment: Canc elled via OM: Order cancelled - Patient discharged Performed By: #### L 100.0100, L500.2500 ####[facility] [address] [place], [address] HGB Normal 13.0-16.5 [facility] Comment on above: Result Comment: Canc elled via OM: Order cancelled - Patient discharged Performed By: #### L 100.0100, L500.2500 ####[facility] [address] [place], [address] MCH Normal 27.0-32.0 [facility] Comment on above: Result Comment: Canc elled via OM: Order cancelled - Patient discharged Performed By: #### L 100.0100, L500.2500 ####[facility] [address] [place], [address] MCHC Normal 32-36 [facility] Comment on above: Result Comment: Canc elled via OM: Order cancelled - Patient discharged Performed By: #### L 100.0100, L500.2500 ####[facility] [address] [place], [address] MCV Normal 80-94 [facility] Comment on above: Result Comment: Canc elled via OM: Order cancelled - Patient discharged Performed By: #### L 100.0100, L500.2500 ####[facility] [address] [place], [address] NEUT% Normal 47-70 [facility] Comment on above: Result Comment: Canc elled via OM: Order cancelled - Patient discharged Performed By: #### L 100.0100, L500.2500 ####[facility] [address] [place], [address] PLT Normal 150-450 [facility] Comment on above: Result Comment: Canc elled via OM: Order cancelled - Patient discharged Performed By: #### L 100.0100, L500.2500 ####[facility] [address] [place], [address] RBC Normal 4.6-6.2 [facility] Comment on above: Result Comment: Canc elled via OM: Order cancelled - Patient discharged Performed By: #### L 100.0100, L500.2500 ####[facility] [address] [place], [address] RDW CV Normal 11.6-14.6 [facility] Comment on above: Result Comment: Canc elled via OM: Order cancelled - Patient discharged Performed By: #### L 100.0100, L500.2500 ####[facility] [address] [place], [address] RDW SD Normal 35.1-43.9 [facility] Comment on above: Result Comment: Canc elled via OM: Order cancelled - Patient discharged Performed By: #### L 100.0100, L500.2500 ####[facility] [address] [place], [address] WBC Normal 4.4-11.0 [facility] Comment on above: Result Comment: Canc elled via OM: Order cancelled - Patient discharged Performed By: #### L 100.0100, L500.2500 ####[facility] [address] [place], [address] CRPon 03-07-2025 C-REACTIVE PROT 10.40 mg/L High 0.0-3.0 [facility] Comment on above: Performed By: #### L 501.6710, L101.9900, L3100.5440 ####[facility] [address] [place], [address] Comprehensive Metabolic Prof ilon 03-07-2025 Albumin [Mass/Vol] 4.0 g/dL Normal 3.4-4.8 [facility] Comment on above: Performed By: #### L 500.4050, L100.0100 ####[facility] [address] [place], [address] Albumin/Globulin [Mass ratio] 1.6 {ratio} Normal 0.9-2.4 [facility] Comment on above: Performed By: #### L 500.4050, L100.0100 ####[facility] [address] [place], [address] ALK PHOS 119 U/L Normal 40-129 [facility] Comment on above: Performed By: #### L 500.4050, L100.0100 ####[facility] [address] [place], [address] ALT [Catalytic activity/Vol] 16 U/L Normal <=46 [facility] Comment on above: Performed By: #### L 500.4050, L100.0100 ####[facility] [address] [place], [address] AST [Catalytic activity/Vol] 21 U/L Normal <=37 [facility] Comment on above: Performed By: #### L 500.4050, L100.0100 ####[facility] [address] [place], [address] Bilirubin [Mass/Vol] 0.42 mg/dL Normal 0.00-1.30 [facility] Comment on above: Performed By: #### L 500.4050, L100.0100 ####[facility] [address] [place], [address] BUN/CRE 11.3 RATIO Normal 10-20 [facility] Comment on above: Performed By: #### L 500.4050, L100.0100 ####[facility] [address] [place], [address] Calcium [Mass/Vol] 8.8 mg/dL Normal 7.6-11.0 [facility] Comment on above: Performed By: #### L 500.4050, L100.0100 ####[facility] [address] [place], [address] Chloride [Moles/Vol] 110 mmol/L High 98-108 [facility] Comment on above: Performed By: #### L 500.4050, L100.0100 ####[facility] [address] [place], [address] CO2 [Moles/Vol] 19.7 mmol/L Low 21.0-32.0 [facility] Comment on above: Performed By: #### L 500.4050, L100.0100 ####[facility] [address] [place], [address] Creatinine [Mass/Vol] 0.90 mg/dL Normal 0.70-1.20 [facility] Comment on above: Performed By: #### L 500.4050, L100.0100 ####[facility] [address] [place], [address] ECRCL 105.59 ml/min Normal 50-250 [facility] Comment on above: Performed By: #### L 500.4050, L100.0100 ####[facility] [address] [place], [address] GAP 13 Normal 5-15 [facility] Comment on above: Performed By: #### L 500.4050, L100.0100 ####[facility] [address] [place], [address] GFR/1.73 sq M.predicted among non-blacks MDRD (S/P/Bld) [Vol rate/Area] 91 mL/min/{1.73_m2} Normal >60 [facility] Comment on above: Result Comment: mL/m in/1.73m2 CKD-EPI Creatinine Equation (2020) Performed By: #### L 500.4050, L100.0100 ####[facility] [address] [place], [address] Globulin (S) [Mass/Vol] 2.4 g/dL Normal 2.2-4.2 [facility] Comment on above: Performed By: #### L 500.4050, L100.0100 ####[facility] [address] [place], [address] Glucose [Mass/Vol] 91 mg/dL Normal 70-99 [facility] Comment on above: Performed By: #### L 500.4050, L100.0100 ####[facility] [address] [place], [address] Potassium [Moles/Vol] 3.4 mmol/L Normal 3.3-5.1 [facility] Comment on above: Performed By: #### L 500.4050, L100.0100 ####[facility] [address] [place], [address] Sodium [Moles/Vol] 142 mmol/L Normal 133-145 [facility] Comment on above: Performed By: #### L 500.4050, L100.0100 ####[facility] [address] [place], [address] T PROT 6.4 g/dL Normal 5.9-8.4 [facility] Comment on above: Performed By: #### L 500.4050, L100.0100 ####[facility] [address] [place], [address] Urea nitrogen [Mass/Vol] 10 mg/dL Normal 4-19 [facility] Comment on above: Performed By: #### L 500.4050, L100.0100 ####[facility] [address] [place], [address] Erythrocyte Sed Rateon 03-07 SED RATE 18 mm/hr Normal 0-20 [facility] Comment on above: Performed By: #### L 501.6710, L101.9900, L3100.5440 ####[facility] [address] [place], [address] Erythrocyte sedimentation ra teOrdered By: Luis A Singh on 03-07-2025 ESR (Bld) [Velocity] 18 mm/h 0-20 [facility] Prothrombin Time w/INRon INR Coag (PPP) [Relative time] 2.8 {INR} Normal [facility] Comment on above: Performed By: #### L 300.3900 ####[facility] [address] [place], [address] PT Coag (PPP) [Time] 30.4 s High 11.7-14.9 [facility] Comment on above: Performed By: #### L 300.3900 ####[facility] [address] [place], [id number](238) Serum or plasma C reactive p rotein measurement (mass/volume)Ordered By: Luis A Singh on 03-07-2025 CRP [Mass/Vol] 10.40 mg/L High 0.0-3.0 [facility] Basic Metabolic Profile (BMP )on 03-06-2025 BUN/CRE 10.6 RATIO Normal 10- [facility] Comment on above: Performed By: #### L 500.2500, L100.0500 ####[facility] [address] [place], [address] Calcium [Mass/Vol] 8.9 mg/dL Normal 7.6-11.0 [facility] Comment on above: Performed By: #### L 500.2500, L100.0500 ####[facility] [address] [place], [address] Chloride [Moles/Vol] 106 mmol/L Normal 98-108 [facility] Comment on above: Performed By: #### L 500.2500, L100.0500 ####[facility] [address] [place], [address] CO2 [Moles/Vol] 20.9 mmol/L Low 21.0-32.0 [facility] Comment on above: Performed By: #### L 500.2500, L100.0500 ####[facility] [address] [place], [address] Creatinine [Mass/Vol] 0.80 mg/dL Normal 0.70-1.20 [facility] Comment on above: Performed By: #### L 500.2500, L100.0500 ####[facility] [address] [place], [address] ECRCL 118.78 ml/min Normal 50-250 [facility] Comment on above: Performed By: #### L 500.2500, L100.0500 ####[facility] [address] [place], [address] GAP 12 Normal 5-15 [facility] Comment on above: Performed By: #### L 500.2500, L100.0500 ####[facility] [address] [place], [address] GFR/1.73 sq M.predicted among non-blacks MDRD (S/P/Bld) [Vol rate/Area] 95 mL/min/{1.73_m2} Normal >60 [facility] Comment on above: Result Comment: mL/m in/1.73m2 CKD-EPI Creatinine Equation (2020) Performed By: #### L 500.2500, L100.0500 ####[facility] [address] [place], [address] Glucose [Mass/Vol] 105 mg/dL High 70-99 [facility] Comment on above: Performed By: #### L 500.2500, L100.0500 ####[facility] [address] [place], [address] Potassium [Moles/Vol] 3.2 mmol/L Low 3.3-5.1 [facility] Comment on above: Performed By: #### L 500.2500, L100.0500 ####[facility] [address] [place], [address] Sodium [Moles/Vol] 139 mmol/L Normal 133-145 [facility] Comment on above: Performed By: #### L 500.2500, L100.0500 ####[facility] [address] [place], [address] Urea nitrogen [Mass/Vol] 8 mg/dL Normal 4-19 [facility] Comment on above: Performed By: #### L 500.2500, L100.0500 ####[facility] [address] [place], [address] BUN Normal 4-19 [facility] Comment on above: Result Comment: Canc elled via OM: Order cancelled - Patient discharged Performed By: #### L 500.2500, L100.0100 ####[facility] [address] [place], [address] BUN/CRE Normal 10-20 [facility] Comment on above: Result Comment: Canc elled via OM: Order cancelled - Patient discharged Performed By: #### L 500.2500, L100.0100 ####[facility] [address] [place], [address] Calcium Normal 7.6-11.0 [facility] Comment on above: Result Comment: Canc elled via OM: Order cancelled - Patient discharged Performed By: #### L 500.2500, L100.0100 ####[facility] [address] [place], [address] CL Normal 98-108 [facility] Comment on above: Result Comment: Canc elled via OM: Order cancelled - Patient discharged Performed By: #### L 500.2500, L100.0100 ####[facility] [address] [place], [address] CO2 Normal 21.0-32.0 [facility] Comment on above: Result Comment: Canc elled via OM: Order cancelled - Patient discharged Performed By: #### L 500.2500, L100.0100 ####[facility] [address] [place], [address] CREAT,SERUM Normal 0.70-1.20 [facility] Comment on above: Result Comment: Canc elled via OM: Order cancelled - Patient discharged Performed By: #### L 500.2500, L100.0100 ####[facility] [address] [place], [address] eGFR Normal >60 [facility] Comment on above: Result Comment: Canc elled via OM: Order cancelled - Patient discharged Performed By: #### L 500.2500, L100.0100 ####[facility] [address] [place], [address] GAP Normal 5-15 [facility] Comment on above: Result Comment: Canc elled via OM: Order cancelled - Patient discharged Performed By: #### L 500.2500, L100.0100 ####[facility] [address] [place], [address] GLU Normal 70-99 [facility] Comment on above: Result Comment: Canc elled via OM: Order cancelled - Patient discharged Performed By: #### L 500.2500, L100.0100 ####[facility] [address] [place], [address] Potassium Normal 3.3-5.1 [facility] Comment on above: Result Comment: Canc elled via OM: Order cancelled - Patient discharged Performed By: #### L 500.2500, L100.0100 ####[facility] [address] [place], [address] Basic Metabolic Profile (BMP) Normal 133-145 [facility] Comment on above: Result Comment: Canc elled via OM: Order cancelled - Patient discharged Performed By: #### L 500.2500, L100.0100 ####[facility] [address] [place], [address] CBC W/Diff, Automatedon 08-0 -2024 Absolute Neut Normal 2.0-7.7 [facility] Comment on above: Result Comment: Canc elled via OM: Order cancelled - Patient discharged Performed By: #### L 500.2500, L100.0100 ####[facility] [address] [place], [address] HCT Normal 40-54 [facility] Comment on above: Result Comment: Canc elled via OM: Order cancelled - Patient discharged Performed By: #### L 500.2500, L100.0100 ####[facility] [address] [place], [address] HGB Normal 13.0-16.5 [facility] Comment on above: Result Comment: Canc elled via OM: Order cancelled - Patient discharged Performed By: #### L 500.2500, L100.0100 ####[facility] [address] [place], [address] MCH Normal 27.0-32.0 [facility] Comment on above: Result Comment: Canc elled via OM: Order cancelled - Patient discharged Performed By: #### L 500.2500, L100.0100 ####[facility] [address] [place], [address] MCHC Normal 32-36 [facility] Comment on above: Result Comment: Canc elled via OM: Order cancelled - Patient discharged Performed By: #### L 500.2500, L100.0100 ####[facility] [address] [place], [address] MCV Normal 80-94 [facility] Comment on above: Result Comment: Canc elled via OM: Order cancelled - Patient discharged Performed By: #### L 500.2500, L100.0100 ####[facility] [address] [place], [address] NEUT% Normal 47-70 [facility] Comment on above: Result Comment: Canc elled via OM: Order cancelled - Patient discharged Performed By: #### L 500.2500, L100.0100 ####[facility] [address] [place], [address] PLT Normal 150-450 [facility] Comment on above: Result Comment: Canc elled via OM: Order cancelled - Patient discharged Performed By: #### L 500.2500, L100.0100 ####[facility] [address] [place], [address] RBC Normal 4.6-6.2 [facility] Comment on above: Result Comment: Canc elled via OM: Order cancelled - Patient discharged Performed By: #### L 500.2500, L100.0100 ####[facility] [address] [place], [address] RDW CV Normal 11.6-14.6 [facility] Comment on above: Result Comment: Canc elled via OM: Order cancelled - Patient discharged Performed By: #### L 500.2500, L100.0100 ####[facility] [address] [place], [address] RDW SD Normal 35.1-43.9 [facility] Comment on above: Result Comment: Canc elled via OM: Order cancelled - Patient discharged Performed By: #### L 500.2500, L100.0100 ####[facility] [address] [place], [address] WBC Normal 4.4-11.0 [facility] Comment on above: Result Comment: Canc elled via OM: Order cancelled - Patient discharged Performed By: #### L 500.2500, L100.0100 ####[facility] [address] [place], [address] CBC-Complete Blood Cnt No Di ffon 03-06-2025 Erythrocyte distribution width (RBC) [Ratio] 14.1 % Normal 11.6-14.6 [facility] Comment on above: Performed By: #### L 500.2500, L100.0500 ####[facility] [address] [place], [address] Hematocrit (Bld) [Volume fraction] 36.1 % Low 40-54 [facility] Comment on above: Performed By: #### L 500.2500, L100.0500 ####[facility] [address] [place], [address] Hemoglobin (Bld) [Mass/Vol] 12.2 g/dL Low 13.0-16.5 [facility] Comment on above: Performed By: #### L 500.2500, L100.0500 ####[facility] [address] [place], [address] MCH (RBC) [Entitic mass] 29.0 pg Normal 27.0-32.0 [facility] Comment on above: Performed By: #### L 500.2500, L100.0500 ####[facility] [address] [place], [address] MCHC (RBC) [Mass/Vol] 33.8 g/dL Normal 32-36 [facility] Comment on above: Performed By: #### L 500.2500, L100.0500 ####[facility] [address] [place], [address] MCV (RBC) [Entitic vol] 86.0 fL Normal 80-94 [facility] Comment on above: Performed By: #### L 500.2500, L100.0500 ####[facility] [address] [place], [address] Platelet mean volume (Bld) [Entitic vol] 8.8 fL Normal 6.2-12.0 [facility] Comment on above: Performed By: #### L 500.2500, L100.0500 ####[facility] [address] [place], [address] Platelets (Bld) [#/Vol] 207 10*3/uL Normal 150-450 [facility] Comment on above: Performed By: #### L 500.2500, L100.0500 ####[facility] [address] [place], [address] RBC (Bld) [#/Vol] 4.20 10*6/uL Low 4.6-6.2 [facility] Comment on above: Performed By: #### L 500.2500, L100.0500 ####[facility] [address] [place], [address] RDW SD 44.5 fl High 35.1-43.9 [facility] Comment on above: Performed By: #### L 500.2500, L100.0500 ####[facility] [address] [place], [address] WBC (Bld) [#/Vol] 5.6 10*3/uL Normal 4.4-11.0 [facility] Comment on above: Performed By: #### L 500.2500, L100.0500 ####[facility] [address] [place], [address] MR/CON.PCM.GIon 03-06-2025 MR/CON.PCM.GI Normal [facility] Prothrombin Time w/INRon INR Normal [facility] Comment on above: Result Comment: Canc elled via OM: Order cancelled - Patient discharged Performed By: #### L 300.3900 ####[facility] [address] [place], [place], [id number] PROTIME Normal 11.7-14.9 [facility] Comment on above: Result Comment: Canc elled via OM: Order cancelled - Patient discharged Performed By: #### L 300.3900 ####[facility] [address] [place], [place], [id number] 12 Lead EKGon 03-05-2025 12 Lead EKG Normal [facility] Abdomen/Pelvis W IV Cont ONL Yon 03-05-2025 Abdomen/Pelvis W IV Cont ONLY Normal [facility] Absolute lymphocyte countOrd ered By: Rustam Warren on 03-05-2025 Lymphocytes Auto (Unsp spec) [#/Vol] 1.20 10*3/uL 0.83-4.51 [facility] Absolute neutrophil countOrd ered By: Rustam Warren on 03-05-2025 Neutrophils (Bld) [#/Vol] 5.6 10*3/uL 2.0-7.7 [facility] Anion gap in Serum or Plasma Ordered By: Rustam Warren on 03-05-2025 Anion gap [Moles/Vol] 13 mmol/L 5-15 [facility] Automated lymphocyte count a s percentage of total leukocytesOrdered By: Rustam Warren on 03-05-2025 Lymphocytes/100 WBC Auto (Unsp spec) 15.9 % Low 19-41 [facility] BUN/creatinine ratioOrdered By: Rustam Warren on 03-05-2025 Urea nitrogen/Creatinine [Mass ratio] 16.0 mg/mg 10-20 [facility] Basic Metabolic Profile (BMP )on 03-05-2025 BUN Normal 4-19 [facility] Comment on above: Result Comment: Canc elled via OM: Order cancelled - Patient discharged Performed By: #### L 500.2500, L100.0100 ####[facility] [address] [place], [address] BUN/CRE Normal 10-20 [facility] Comment on above: Result Comment: Canc elled via OM: Order cancelled - Patient discharged Performed By: #### L 500.2500, L100.0100 ####[facility] [address] [place], [address] Calcium Normal 7.6-11.0 [facility] Comment on above: Result Comment: Canc elled via OM: Order cancelled - Patient discharged Performed By: #### L 500.2500, L100.0100 ####[facility] [address] [place], [address] CL Normal 98-108 [facility] Comment on above: Result Comment: Canc elled via OM: Order cancelled - Patient discharged Performed By: #### L 500.2500, L100.0100 ####[facility] [address] [place], [address] CO2 Normal 21.0-32.0 [facility] Comment on above: Result Comment: Canc elled via OM: Order cancelled - Patient discharged Performed By: #### L 500.2500, L100.0100 ####[facility] [address] [place], [address] CREAT,SERUM Normal 0.70-1.20 [facility] Comment on above: Result Comment: Canc elled via OM: Order cancelled - Patient discharged Performed By: #### L 500.2500, L100.0100 ####[facility] [address] [place], [address] eGFR Normal >60 [facility] Comment on above: Result Comment: Canc elled via OM: Order cancelled - Patient discharged Performed By: #### L 500.2500, L100.0100 ####[facility] [address] [place], [address] GAP Normal 5-15 [facility] Comment on above: Result Comment: Canc elled via OM: Order cancelled - Patient discharged Performed By: #### L 500.2500, L100.0100 ####[facility] [address] [place], [address] GLU Normal 70-99 [facility] Comment on above: Result Comment: Canc elled via OM: Order cancelled - Patient discharged Performed By: #### L 500.2500, L100.0100 ####[facility] [address] [place], [address] Potassium Normal 3.3-5.1 [facility] Comment on above: Result Comment: Canc elled via OM: Order cancelled - Patient discharged Performed By: #### L 500.2500, L100.0100 ####[facility] [address] [place], [address] Basic Metabolic Profile (BMP) Normal 133-145 [facility] Comment on above: Result Comment: Canc elled via OM: Order cancelled - Patient discharged Performed By: #### L 500.2500, L100.0100 ####[facility] [address] [place], [address] Basophil percentageOrdered B y: Rustam Warren on 03-05-2025 Basophils/100 WBC (Bld) 0.3 % 0-1 [facility] Bilirubin Test strip Ql (U)O rdered By: Rustam Warren on 03-05-2025 Bilirubin Ql (U) Negative Negative [facility] Bilirubin, totalOrdered By: Rustam Warren on 03-05-2025 Bilirubin [Mass/Vol] 0.38 mg/dL 0.00-1.30 [facility] CBC W/Diff, Automatedon 02-05 Absolute Lymph 1.20 X10 3/uL Normal 0.83-4.51 [facility] Comment on above: Performed By: #### L 501.2450, L100.0100, L500.4050 ####[facility] [address] [place], [address] Absolute Neut 5.6 X10 3/uL Normal 2.0-7.7 [facility] Comment on above: Performed By: #### L 501.2450, L100.0100, L500.4050 ####[facility] [address] [place], [address] Basophils/100 WBC (Bld) 0.3 % Normal 0-1 [facility] Comment on above: Performed By: #### L 501.2450, L100.0100, L500.4050 ####[facility] [address] [place], [address] Eosinophils/100 WBC (Bld) 3.2 % Normal 0-5 [facility] Comment on above: Performed By: #### L 501.2450, L100.0100, L500.4050 ####[facility] [address] [place], [address] Erythrocyte distribution width (RBC) [Ratio] 13.7 % Normal 11.6-14.6 [facility] Comment on above: Performed By: #### L 501.2450, L100.0100, L500.4050 ####[facility] [address] [place], [address] Hematocrit (Bld) [Volume fraction] 33.7 % Low 40-54 [facility] Comment on above: Performed By: #### L 501.2450, L100.0100, L500.4050 ####[facility] [address] [place], [address] Hemoglobin (Bld) [Mass/Vol] 11.8 g/dL Low 13.0-16.5 [facility] Comment on above: Performed By: #### L 501.2450, L100.0100, L500.4050 ####[facility] [address] [place], [address] IG% 0.300 Normal 0.0-0.9 [facility] Comment on above: Result Comment: IG% - Immature Granulocytes (promyelocytes, myelocytes andmetamyelocytes) > 1% indicates that a LEFT SHIFT is Present. Performed By: #### L 501.2450, L100.0100, L500.4050 ####[facility] [address] [place], [address] Lymphocytes/100 WBC (Bld) 15.9 % Low 19-41 [facility] Comment on above: Performed By: #### L 501.2450, L100.0100, L500.4050 ####[facility] [address] [place], [address] MCH (RBC) [Entitic mass] 29.7 pg Normal 27.0-32.0 [facility] Comment on above: Performed By: #### L 501.2450, L100.0100, L500.4050 ####[facility] [address] [place], [address] MCHC (RBC) [Mass/Vol] 35.0 g/dL Normal 32-36 [facility] Comment on above: Performed By: #### L 501.2450, L100.0100, L500.4050 ####[facility] [address] [place], [address] MCV (RBC) [Entitic vol] 84.9 fL Normal 80-94 [facility] Comment on above: Performed By: #### L 501.2450, L100.0100, L500.4050 ####[facility] [address] [place], [address] Monocytes/100 WBC (Bld) 7.0 % Normal 0-10 [facility] Comment on above: Performed By: #### L 501.2450, L100.0100, L500.4050 ####[facility] [address] [place], [address] Neutrophils/100 WBC (Bld) 73.3 % High 47-70 [facility] Comment on above: Performed By: #### L 501.2450, L100.0100, L500.4050 ####[facility] [address] [place], [address] Nucleated RBC (Bld) [#/Vol] 0 10*3/uL Normal 0-5 [facility] Comment on above: Performed By: #### L 501.2450, L100.0100, L500.4050 ####[facility] [address] [place], [address] Platelet mean volume (Bld) [Entitic vol] 9.2 fL Normal 6.2-12.0 [facility] Comment on above: Performed By: #### L 501.2450, L100.0100, L500.4050 ####[facility] [address] [place], [address] Platelets (Bld) [#/Vol] 192 10*3/uL Normal 150-450 [facility] Comment on above: Performed By: #### L 501.2450, L100.0100, L500.4050 ####[facility] [address] [place], [address] RBC (Bld) [#/Vol] 3.97 10*6/uL Low 4.6-6.2 [facility] Comment on above: Performed By: #### L 501.2450, L100.0100, L500.4050 ####[facility] [address] [place], [address] RDW SD 42.6 fl Normal 35.1-43.9 [facility] Comment on above: Performed By: #### L 501.2450, L100.0100, L500.4050 ####[facility] [address] [place], [address] WBC (Bld) [#/Vol] 7.6 10*3/uL Normal 4.4-11.0 [facility] Comment on above: Performed By: #### L 501.2450, L100.0100, L500.4050 ####[facility] [address] [place], [address] Absolute Neut Normal 2.0-7.7 [facility] Comment on above: Result Comment: Canc elled via OM: Order cancelled - Patient discharged Performed By: #### L 500.2500, L100.0100 ####[facility] [address] [place], [address] HCT Normal 40-54 [facility] Comment on above: Result Comment: Canc elled via OM: Order cancelled - Patient discharged Performed By: #### L 500.2500, L100.0100 ####[facility] [address] [place], [address] HGB Normal 13.0-16.5 [facility] Comment on above: Result Comment: Canc elled via OM: Order cancelled - Patient discharged Performed By: #### L 500.2500, L100.0100 ####[facility] [address] [place], [address] MCH Normal 27.0-32.0 [facility] Comment on above: Result Comment: Canc elled via OM: Order cancelled - Patient discharged Performed By: #### L 500.2500, L100.0100 ####[facility] [address] [place], [address] MCHC Normal 32-36 [facility] Comment on above: Result Comment: Canc elled via OM: Order cancelled - Patient discharged Performed By: #### L 500.2500, L100.0100 ####[facility] [address] [place], [address] MCV Normal 80-94 [facility] Comment on above: Result Comment: Canc elled via OM: Order cancelled - Patient discharged Performed By: #### L 500.2500, L100.0100 ####[facility] [address] [place], [address] NEUT% Normal 47-70 [facility] Comment on above: Result Comment: Canc elled via OM: Order cancelled - Patient discharged Performed By: #### L 500.2500, L100.0100 ####[facility] [address] [place], [address] PLT Normal 150-450 [facility] Comment on above: Result Comment: Canc elled via OM: Order cancelled - Patient discharged Performed By: #### L 500.2500, L100.0100 ####[facility] [address] [place], [address] RBC Normal 4.6-6.2 [facility] Comment on above: Result Comment: Canc elled via OM: Order cancelled - Patient discharged Performed By: #### L 500.2500, L100.0100 ####[facility] [address] [place], [address] RDW CV Normal 11.6-14.6 [facility] Comment on above: Result Comment: Canc elled via OM: Order cancelled - Patient discharged Performed By: #### L 500.2500, L100.0100 ####[facility] [address] [place], [address] RDW SD Normal 35.1-43.9 [facility] Comment on above: Result Comment: Canc elled via OM: Order cancelled - Patient discharged Performed By: #### L 500.2500, L100.0100 ####[facility] [address] [place], [address] WBC Normal 4.4-11.0 [facility] Comment on above: Result Comment: Canc elled via OM: Order cancelled - Patient discharged Performed By: #### L 500.2500, L100.0100 ####[facility] [address] [place], [address] Carbon dioxide, total [Moles /volume] in Central venous bloodOrdered By: Rustam Warren on 03-05-2025 CO2 [Moles/Vol] 17.6 mmol/L Low 21.0-32.0 [facility] Chloride assayOrdered By: Andrea Warren on 03-05-2025 Chloride [Moles/Vol] 89 mmol/L Low 98-108 [facility] Comprehensive Metabolic Prof ilon 03-05-2025 Albumin [Mass/Vol] 3.8 g/dL Normal 3.4-4.8 [facility] Comment on above: Performed By: #### L 501.2450, L100.0100, L500.4050 ####[facility] [address] [place], [address] Albumin/Globulin [Mass ratio] 1.3 {ratio} Normal 0.9-2.4 [facility] Comment on above: Performed By: #### L 501.2450, L100.0100, L500.4050 ####[facility] [address] [place], [address] ALK PHOS 119 U/L Normal 40-129 [facility] Comment on above: Result Comment: Hemo lysis Present, Results may be affected. Performed By: #### L 501.2450, L100.0100, L500.4050 ####[facility] [address] [place], [address] ALT [Catalytic activity/Vol] 22 U/L Normal <=46 [facility] Comment on above: Result Comment: Hemo lysis present, Results??could be affected.?? Performed By: #### L 501.2450, L100.0100, L500.4050 ####[facility] [address] [place], [address] AST [Catalytic activity/Vol] 46 U/L High <=37 [facility] Comment on above: Result Comment: Hemo lysis present, Results??could be affected.?? Performed By: #### L 501.2450, L100.0100, L500.4050 ####[facility] [address] [place], [address] Bilirubin [Mass/Vol] 0.38 mg/dL Normal 0.00-1.30 [facility] Comment on above: Performed By: #### L 501.2450, L100.0100, L500.4050 ####[facility] [address] [place], [address] BUN/CRE 16.0 RATIO Normal 10-20 [facility] Comment on above: Performed By: #### L 501.2450, L100.0100, L500.4050 ####[facility] [address] [place], [address] Calcium [Mass/Vol] 8.1 mg/dL Normal 7.6-11.0 [facility] Comment on above: Performed By: #### L 501.2450, L100.0100, L500.4050 ####[facility] [address] [place], [address] Chloride [Moles/Vol] 89 mmol/L Low 98-108 [facility] Comment on above: Performed By: #### L 501.2450, L100.0100, L500.4050 ####[facility] [address] [place], [address] CO2 [Moles/Vol] 17.6 mmol/L Low 21.0-32.0 [facility] Comment on above: Performed By: #### L 501.2450, L100.0100, L500.4050 ####[facility] [address] [place], [address] Creatinine [Mass/Vol] 0.77 mg/dL Normal 0.70-1.20 [facility] Comment on above: Performed By: #### L 501.2450, L100.0100, L500.4050 ####[facility] [address] [place], [address] ECRCL 121.52 ml/min Normal 50-250 [facility] Comment on above: Performed By: #### L 501.2450, L100.0100, L500.4050 ####[facility] [address] [place], [address] GAP 13 Normal 5-15 [facility] Comment on above: Performed By: #### L 501.2450, L100.0100, L500.4050 ####[facility] [address] [place], [address] GFR/1.73 sq M.predicted among non-blacks MDRD (S/P/Bld) [Vol rate/Area] 96 mL/min/{1.73_m2} Normal >60 [facility] Comment on above: Result Comment: mL/m in/1.73m2 CKD-EPI Creatinine Equation (2020) Performed By: #### L 501.2450, L100.0100, L500.4050 ####[facility] [address] [place], [address] Globulin (S) [Mass/Vol] 2.9 g/dL Normal 2.2-4.2 [facility] Comment on above: Performed By: #### L 501.2450, L100.0100, L500.4050 ####[facility] [address] [place], [address] Glucose [Mass/Vol] 123 mg/dL High 70-99 [facility] Comment on above: Performed By: #### L 501.2450, L100.0100, L500.4050 ####[facility] [address] [place], [address] Potassium [Moles/Vol] 3.8 mmol/L Normal 3.3-5.1 [facility] Comment on above: Result Comment: Hemo lysis present, Results??could be affected.?? Performed By: #### L 501.2450, L100.0100, L500.4050 ####[facility] [address] [place], [address] Sodium [Moles/Vol] 120 mmol/L Low 133-145 [facility] Comment on above: Performed By: #### L 501.2450, L100.0100, L500.4050 ####[facility] [address] [place], [address] T PROT 6.6 g/dL Normal 5.9-8.4 [facility] Comment on above: Performed By: #### L 501.2450, L100.0100, L500.4050 ####[facility] [address] [place], [address] Urea nitrogen [Mass/Vol] 12 mg/dL Normal 4-19 [facility] Comment on above: Performed By: #### L 501.2450, L100.0100, L500.4050 ####[facility] [address] [place], [address] Emergency Department Summary on 03-05-2025 Emergency Department Summary Normal [facility] Eosinophil percentageOrdered By: Rustam Warren on 03-05-2025 Eosinophils/100 WBC (Bld) 3.2 % 0-5 [facility] Erythrocyte distribution wid th ratioOrdered By: Rustam Warren on 03-05-2025 Erythrocyte distribution width (RBC) [Ratio] 13.7 % 11.6-14.6 [facility] Erythrocyte distribution wid th standard deviationOrdered By: Rustam Warren on 03-05-2025 Erythrocyte distribution width (RBC) [Ratio] 42.6 fl 35.1-43.9 [facility] Gallbladderon 03-05-2025 Gallbladder Normal [facility] Glomerular filtration rate ( GFR) estimation/1.73 sq m using serum, plasma, or whole bOrdered By: Rustam Warren on 03-05-2025 GFR/1.73 sq M.predicted among non-blacks MDRD (S/P/Bld) [Vol rate/Area] 96 mL/min/{1.73_m2} >60 [facility] Comment on above: mL/min/1.73m2 CKD-EP I Creatinine Equation (2020) H AND P Exam - [facility] 03-05-2025 H&P Exam - Hospitalist Normal [facility] Hematocrit Auto (Bld) [Volum e fraction]Ordered By: Rustam Warren on 03-05-2025 Hematocrit (Bld) [Volume fraction] 33.7 % Low 40-54 [facility] Hemoglobin measurementOrdere d By: Rustam Warren on 03-05-2025 Hemoglobin (Bld) [Mass/Vol] 11.8 g/dL Low 13.0-16.5 [facility] Immature granulocytes/100 WB C Auto (Bld)Ordered By: Rustam Warren on 03-05-2025 Immature granulocytes/100 WBC (Bld) 0.300 % 0.0-0.9 [facility] Comment on above: IG% - Immature Granu locytes (promyelocytes, myelocytes and metamyelocytes) > 1% indicates that a LEFT SHIFT is Present. International normalized rat io (INR) calculationOrdered By: Rustam Warren on 03-05-2025 INR Coag (Bld) [Relative time] 2.4 {INR} [facility] Ketones Test strip Ql (U)Ord ered By: Rustam Warren on 03-05-2025 Ketones Ql (U) Negative Negative [facility] Laboratory - Chemistry and C hemistry - challengeOrdered By: Rustam Warren on 03-05-2025 AST [Catalytic activity/Vol] 46 U/L High <38 [facility] Comment on above: Hemolysis present, R esults could be affected. Lipaseon 03-05-2025 Lipase [Catalytic activity/Vol] 40 U/L Normal 13-75 [facility] Comment on above: Result Comment: [place] santos note:LIPASE revised reference range effective 22.New Lipase methodology. Expected to produce lower valuesthan the previous assay method.NEW Reference Range: 13 - 75 U/L Performed By: #### L 501.2450, L100.0100, L500.4050 ####[facility] [address] [place], [address] Lipase measurementOrdered By : Rustam Warren on 03-05-2025 Lipase [Catalytic activity/Vol] 40 U/L 13-75 [facility] Comment on above: Please note:LIPASE r evised reference range effective 22. New Lipase methodology. Expected to produce lower values than the previous assay method. NEW Reference Range: 13 - 75 U/L MCV (mean corpuscular volume ) determinationOrdered By: Rustam Warren on 03-05-2025 MCV (RBC) [Entitic vol] 84.9 fL 80-94 [facility] Mean corpuscular hemoglobin (MCH) determinationOrdered By: Rustam Warren on 03-05-2025 MCH (RBC) [Entitic mass] 29.7 pg 27.0-32.0 [facility] Mean corpuscular hemoglobin concentration (MCHC) determinationOrdered By: Rustam Warren on 03-05-2025 MCHC (RBC) [Mass/Vol] 35.0 g/dL 32-36 [facility] Mean platelet volume determi nationOrdered By: Rustam Warren on 03-05-2025 Platelet mean volume (Bld) [Entitic vol] 9.2 fL 6.2-12.0 [facility] Microscopic analysis of urin e for red blood cells (RBC)Ordered By: Rustam Warren on 03-05-2025 Microscopic analysis of urine for red blood cells (RBC) 0 SEEN /hpf 0-5 [facility] Monocyte percentageOrdered B y: Rustam Warren on 03-05-2025 Monocytes/100 WBC (Bld) 7.0 % 0-10 [facility] Mucus LM Ql (Urine sed)Order ed By: Rustam Warren on 03-05-2025 Mucus Ql (Urine sed) 0 SEEN /hpf [facility] Neutrophil percentageOrdered By: Rustam Warren on 03-05-2025 Neutrophils/100 WBC (Bld) 73.3 % High 47-70 [facility] Nitrite Test strip Ql (U)Ord ered By: Rustam Warren on 03-05-2025 Nitrite Ql (U) Negative Negative [facility] Nucleated red blood cell per centageOrdered By: Rustam Warren on 03-05-2025 Nucleated RBC/100 WBC (Bld) [Ratio] 0 % 0-5 [facility] Osmolality urOrdered By: Monica Rashid on 03-05-2025 Osmolality (U) [Osmolality] 67 mOsm/KG >50 [facility] Comment on above: Normal Urine Referen ce Ranges Random: 50 - 1200 mOsm/kg H20 depending on fluid intake Random: >850 mOsm/kg after 12 hour fluid restriction 24 hour: ~300 - 900 mOsm/kg H2O Osmolality, Urineon 03-05-20 25 OSMOLALITY,UR 67 mOsm/KG Normal [facility] Comment on above: Result Comment: Norm al Urine Reference Ranges Random: 50 - 1200 mOsm/kg H20 depending on fluid intake Random: >850 mOsm/kg after 12 hour fluid restriction 24 hour: 300 - 900 mOsm/kg H2O Performed By: #### L 501.7400, L501.5500 ####[facility] [address] [place], [address] Platelet countOrdered By: Andrea Warren on 03-05-2025 Platelets (Bld) [#/Vol] 192 10*3/uL 150-450 [facility] Potassium measurement (mass/ volume)Ordered By: Rustam Warren on 03-05-2025 Potassium (Unsp spec) [Mass/Vol] 3.8 mmol/L 3.3-5.1 [facility] Comment on above: Hemolysis present, R esults could be affected. Protein Test strip Ql (U)Ord ered By: Rustam Warren on 03-05-2025 Protein Ql (U) Negative Negative [facility] Prothrombin Time w/INRon INR Coag (PPP) [Relative time] 2.4 {INR} Normal [facility] Comment on above: Performed By: #### L 300.3900 ####[facility] [address] [place], [address] PT Coag (PPP) [Time] 26.4 s High 11.7-14.9 [facility] Comment on above: Performed By: #### L 300.3900 ####[facility] [address] [place], [address] INR Normal [facility] Comment on above: Result Comment: Canc elled via OM: Order cancelled - Patient discharged Performed By: #### L 300.3900 ####[facility] [address] [place], [address] PROTIME Normal 11.7-14.9 [facility] Comment on above: Result Comment: Canc elled via OM: Order cancelled - Patient discharged Performed By: #### L 300.3900 ####[facility] [address] [place], [address] Prothrombin timeOrdered By: Rustam Warren on 03-05-2025 PT Coag (PPP) [Time] 26.4 s High 11.7-14.9 [facility] RBC Auto (Bld) [#/Vol]Ordere d By: Rustam Warren on 03-05-2025 RBC (Bld) [#/Vol] 3.97 10*6/uL Low 4.6-6.2 [facility] Serum creatinine measurement (mass/volume)Ordered By: Rustam Warren on 03-05-2025 Creatinine [Mass/Vol] 0.77 mg/dL 0.70-1.20 [facility] Serum globulin measurementOr dered By: Rustam Warren on 03-05-2025 Globulin (S) [Mass/Vol] 2.9 g/dL 2.2-4.2 [facility] Serum glucose measurement (m ass/volume)Ordered By: Rustam Warren on 03-05-2025 Glucose [Mass/Vol] 123 mg/dL High 70-99 [facility] Serum or plasma alanine hernandez otransferase (ALT) measurementOrdered By: Rustam Warren on 03-05-2025 ALT [Catalytic activity/Vol] 22 U/L <47 [facility] Comment on above: Hemolysis present, R esults could be affected. Serum or plasma albumin mickie urement (mass/volume)Ordered By: Rustam Warren on 03-05-2025 Albumin [Mass/Vol] 3.8 g/dL 3.4-4.8 [facility] Serum or plasma albumin/glob ulin mass ratioOrdered By: Rustam Warren on 03-05-2025 Albumin/Globulin [Mass ratio] 1.3 {ratio} 0.9-2.4 [facility] Serum or plasma alkaline anna sphatase measurementOrdered By: Rustam Warren on 03-05-2025 ALP [Catalytic activity/Vol] 119 U/L 40-129 [facility] Comment on above: Hemolysis Present, R esults may be affected. Serum or plasma calcium mickie urement (mass/volume)Ordered By: Rustam Warren on 03-05-2025 Calcium [Mass/Vol] 8.1 mg/dL 7.6-11.0 [facility] Serum or plasma urea nitroge n measurement (mass/volume)Ordered By: Rustam Warren on 03-05-2025 Urea nitrogen [Mass/Vol] 12 mg/dL 4-19 [facility] Sodium levelOrdered By: Rustam Warren on 03-05-2025 Sodium [Moles/Vol] 120 mmol/L Low 133-145 [facility] Squamous epithelial cells de tection in urine sediment by light microscopyOrdered By: Rustam Warren on 03-05-2025 Epithelial cells.squamous LM Ql (Urine sed) 0 SEEN /hpf 0-5 [facility] Total proteinOrdered By: Monica Warren on 03-05-2025 Protein [Mass/Vol] 6.6 g/dL 5.9-8.4 [facility] Urinalysis, Completeon 03-05 BACTERIA 0 SEEN Normal None Seen [facility] Comment on above: Order Comment: CLEAN CATCH Performed By: #### L 400.0001 ####[facility] [address] [place], [address] EPI,SQUAMOUS 0 SEEN Normal 0-5 [facility] Comment on above: Order Comment: CLEAN CATCH Performed By: #### L 400.0001 ####[facility] [address] [place], [address] Mucus Ql (Urine sed) 0 SEEN Normal [facility] Comment on above: Order Comment: CLEAN CATCH Performed By: #### L 400.0001 ####[facility] [address] [place], [address] RBC 0 SEEN Normal 0-5 [facility] Comment on above: Order Comment: CLEAN CATCH Performed By: #### L 400.0001 ####[facility] [address] [place], [address] WBC 0 SEEN Normal 0-5 [facility] Comment on above: Order Comment: CLEAN CATCH Performed By: #### L 400.0001 ####[facility] [address] [place], [address] Urine Sodiumon 03-05-2025 UR NA < 20 Normal Not Establ. [facility] Comment on above: Performed By: #### L 501.7400, L501.5500 ####[facility] [address] [place], [address] Urine clarityOrdered By: Monica Warren on 03-05-2025 Clarity (U) Clear Clear [facility] Urine color determinationOrd ered By: Rustam Warren on 03-05-2025 Color (U) Straw Yellow [facility] Urine glucose detectionOrder ed By: Rustam Warren on 03-05-2025 Glucose Ql (U) Normal mg/dl Normal [facility] Urine leukocyte esterase det ection by dipstickOrdered By: Rustam Warren on 03-05-2025 Leukocyte esterase Test strip Ql (U) Negative Negative [facility] Urine pHOrdered By: Rustam valdes on 03-05-2025 pH (U) 7.0 [pH] 5.0 - 8.0 [facility] Urine sediment bacteria coun t by microscopy (number/high power field)Ordered By: Rustam Warren on 03-05-2025 Bacteria LM.HPF (Urine sed) [#/Area] 0 /[HPF] None Seen [facility] Urine sodium measurement (mo les/volume)Ordered By: Duncan Rashid on 03-05-2025 Sodium (U) [Moles/Vol] mmol/L Not Establ. [facility] Urine specific gravity measu rementOrdered By: Rustam Warren on 03-05-2025 Specific gravity (U) [Rel density] 1.005 1.002-1.030 [facility] Urine urobilinogen measureme ntOrdered By: Rustam Warren on 03-05-2025 Urobilinogen Ql (U) Normal mg/dl Normal [facility] White blood cell (WBC) count Ordered By: Rustam Warren on 03-05-2025 WBC (Bld) [#/Vol] 7.6 10*3/uL 4.4-11.0 [facility] White blood cell countOrdere d By: Rustam Warren on 03-05-2025 White blood cell count 0 SEEN /hpf 0-5 [facility] Basic Metabolic Profile (BMP )on 03-04-2025 BUN Normal 4-19 [facility] Comment on above: Result Comment: Canc elled via OM: Order cancelled - Patient discharged Performed By: #### L 500.2500, L100.0100 ####[facility] [address] [place], [address] BUN/CRE Normal 10-20 [facility] Comment on above: Result Comment: Canc elled via OM: Order cancelled - Patient discharged Performed By: #### L 500.2500, L100.0100 ####[facility] [address] [place], [address] Calcium Normal 7.6-11.0 [facility] Comment on above: Result Comment: Canc elled via OM: Order cancelled - Patient discharged Performed By: #### L 500.2500, L100.0100 ####[facility] [address] [place], [address] CL Normal 98-108 [facility] Comment on above: Result Comment: Canc elled via OM: Order cancelled - Patient discharged Performed By: #### L 500.2500, L100.0100 ####[facility] [address] [place], [address] CO2 Normal 21.0-32.0 [facility] Comment on above: Result Comment: Canc elled via OM: Order cancelled - Patient discharged Performed By: #### L 500.2500, L100.0100 ####[facility] [address] [place], [address] CREAT,SERUM Normal 0.70-1.20 [facility] Comment on above: Result Comment: Canc elled via OM: Order cancelled - Patient discharged Performed By: #### L 500.2500, L100.0100 ####[facility] [address] [place], [address] eGFR Normal >60 [facility] Comment on above: Result Comment: Canc elled via OM: Order cancelled - Patient discharged Performed By: #### L 500.2500, L100.0100 ####[facility] [address] [place], [address] GAP Normal 5-15 [facility] Comment on above: Result Comment: Canc elled via OM: Order cancelled - Patient discharged Performed By: #### L 500.2500, L100.0100 ####[facility] [address] [place], [address] GLU Normal 70-99 [facility] Comment on above: Result Comment: Canc elled via OM: Order cancelled - Patient discharged Performed By: #### L 500.2500, L100.0100 ####[facility] [address] [place], [address] Potassium Normal 3.3-5.1 [facility] Comment on above: Result Comment: Canc elled via OM: Order cancelled - Patient discharged Performed By: #### L 500.2500, L100.0100 ####[facility] [address] [place], [address] Basic Metabolic Profile (BMP) Normal 133-145 [facility] Comment on above: Result Comment: Canc elled via OM: Order cancelled - Patient discharged Performed By: #### L 500.2500, L100.0100 ####[facility] [address] [place], [address] CBC W/Diff, Automatedon 07-3 0-2024 Absolute Neut Normal 2.0-7.7 [facility] Comment on above: Result Comment: Canc elled via OM: Order cancelled - Patient discharged Performed By: #### L 500.2500, L100.0100 ####[facility] [address] [place], [address] HCT Normal 40-54 [facility] Comment on above: Result Comment: Canc elled via OM: Order cancelled - Patient discharged Performed By: #### L 500.2500, L100.0100 ####[facility] [address] [place], [address] HGB Normal 13.0-16.5 [facility] Comment on above: Result Comment: Canc elled via OM: Order cancelled - Patient discharged Performed By: #### L 500.2500, L100.0100 ####[facility] [address] [place], [address] MCH Normal 27.0-32.0 [facility] Comment on above: Result Comment: Canc elled via OM: Order cancelled - Patient discharged Performed By: #### L 500.2500, L100.0100 ####[facility] [address] [place], [address] MCHC Normal 32-36 [facility] Comment on above: Result Comment: Canc elled via OM: Order cancelled - Patient discharged Performed By: #### L 500.2500, L100.0100 ####[facility] [address] [place], [address] MCV Normal 80-94 [facility] Comment on above: Result Comment: Canc elled via OM: Order cancelled - Patient discharged Performed By: #### L 500.2500, L100.0100 ####[facility] [address] [place], [address] NEUT% Normal 47-70 [facility] Comment on above: Result Comment: Canc elled via OM: Order cancelled - Patient discharged Performed By: #### L 500.2500, L100.0100 ####[facility] [address] [place], [address] PLT Normal 150-450 [facility] Comment on above: Result Comment: Canc elled via OM: Order cancelled - Patient discharged Performed By: #### L 500.2500, L100.0100 ####[facility] [address] [place], [address] RBC Normal 4.6-6.2 [facility] Comment on above: Result Comment: Canc elled via OM: Order cancelled - Patient discharged Performed By: #### L 500.2500, L100.0100 ####[facility] [address] [place], [address] RDW CV Normal 11.6-14.6 [facility] Comment on above: Result Comment: Canc elled via OM: Order cancelled - Patient discharged Performed By: #### L 500.2500, L100.0100 ####[facility] [address] [place], [address] RDW SD Normal 35.1-43.9 [facility] Comment on above: Result Comment: Canc elled via OM: Order cancelled - Patient discharged Performed By: #### L 500.2500, L100.0100 ####[facility] [address] [place], [address] WBC Normal 4.4-11.0 [facility] Comment on above: Result Comment: Canc elled via OM: Order cancelled - Patient discharged Performed By: #### L 500.2500, L100.0100 ####[facility] [address] [place], [address] Prothrombin Time w/INRon INR Normal [facility] Comment on above: Result Comment: Canc elled via OM: Order cancelled - Patient discharged Performed By: #### L 300.3900 ####[facility] [address] [place], [address] PROTIME Normal 11.7-14.9 [facility] Comment on above: Result Comment: Canc elled via OM: Order cancelled - Patient discharged Performed By: #### L 300.3900 ####[facility] [address] [place], [address] Basic Metabolic Profile (BMP )on 03-03-2025 BUN Normal 4-19 [facility] Comment on above: Result Comment: Canc elled via OM: Order cancelled - Patient discharged Performed By: #### L 500.2500, L100.0100 ####[facility] [address] [place], [address] BUN/CRE Normal 10-20 [facility] Comment on above: Result Comment: Canc elled via OM: Order cancelled - Patient discharged Performed By: #### L 500.2500, L100.0100 ####[facility] [address] [place], [address] Calcium Normal 7.6-11.0 [facility] Comment on above: Result Comment: Canc elled via OM: Order cancelled - Patient discharged Performed By: #### L 500.2500, L100.0100 ####[facility] [address] [place], [address] CL Normal 98-108 [facility] Comment on above: Result Comment: Canc elled via OM: Order cancelled - Patient discharged Performed By: #### L 500.2500, L100.0100 ####[facility] [address] [place], [address] CO2 Normal 21.0-32.0 [facility] Comment on above: Result Comment: Canc elled via OM: Order cancelled - Patient discharged Performed By: #### L 500.2500, L100.0100 ####[facility] [address] [place], [address] CREAT,SERUM Normal 0.70-1.20 [facility] Comment on above: Result Comment: Canc elled via OM: Order cancelled - Patient discharged Performed By: #### L 500.2500, L100.0100 ####[facility] [address] [place], [address] eGFR Normal >60 [facility] Comment on above: Result Comment: Canc elled via OM: Order cancelled - Patient discharged Performed By: #### L 500.2500, L100.0100 ####[facility] [address] [place], [address] GAP Normal 5-15 [facility] Comment on above: Result Comment: Canc elled via OM: Order cancelled - Patient discharged Performed By: #### L 500.2500, L100.0100 ####[facility] [address] [place], [address] GLU Normal 70-99 [facility] Comment on above: Result Comment: Canc elled via OM: Order cancelled - Patient discharged Performed By: #### L 500.2500, L100.0100 ####[facility] [address] [place], [address] Potassium Normal 3.3-5.1 [facility] Comment on above: Result Comment: Canc elled via OM: Order cancelled - Patient discharged Performed By: #### L 500.2500, L100.0100 ####[facility] [address] [place], [address] Basic Metabolic Profile (BMP) Normal 133-145 [facility] Comment on above: Result Comment: Canc elled via OM: Order cancelled - Patient discharged Performed By: #### L 500.2500, L100.0100 ####[facility] [address] [place], [address] CBC W/Diff, Automatedon 07- Absolute Neut Normal 2.0-7.7 [facility] Comment on above: Result Comment: Canc elled via OM: Order cancelled - Patient discharged Performed By: #### L 500.2500, L100.0100 ####[facility] [address] [place], [address] HCT Normal 40-54 [facility] Comment on above: Result Comment: Canc elled via OM: Order cancelled - Patient discharged Performed By: #### L 500.2500, L100.0100 ####[facility] [address] [place], [address] HGB Normal 13.0-16.5 [facility] Comment on above: Result Comment: Canc elled via OM: Order cancelled - Patient discharged Performed By: #### L 500.2500, L100.0100 ####[facility] [address] [place], [address] MCH Normal 27.0-32.0 [facility] Comment on above: Result Comment: Canc elled via OM: Order cancelled - Patient discharged Performed By: #### L 500.2500, L100.0100 ####[facility] [address] [place], [address] MCHC Normal 32-36 [facility] Comment on above: Result Comment: Canc elled via OM: Order cancelled - Patient discharged Performed By: #### L 500.2500, L100.0100 ####[facility] [address] [place], [address] MCV Normal 80-94 [facility] Comment on above: Result Comment: Canc elled via OM: Order cancelled - Patient discharged Performed By: #### L 500.2500, L100.0100 ####[facility] [address] [place], [address] NEUT% Normal 47-70 [facility] Comment on above: Result Comment: Canc elled via OM: Order cancelled - Patient discharged Performed By: #### L 500.2500, L100.0100 ####[facility] [address] [place], [address] PLT Normal 150-450 [facility] Comment on above: Result Comment: Canc elled via OM: Order cancelled - Patient discharged Performed By: #### L 500.2500, L100.0100 ####[facility] [address] [place], [address] RBC Normal 4.6-6.2 [facility] Comment on above: Result Comment: Canc elled via OM: Order cancelled - Patient discharged Performed By: #### L 500.2500, L100.0100 ####[facility] [address] [place], [address] RDW CV Normal 11.6-14.6 [facility] Comment on above: Result Comment: Canc elled via OM: Order cancelled - Patient discharged Performed By: #### L 500.2500, L100.0100 ####[facility] [address] [place], [address] RDW SD Normal 35.1-43.9 [facility] Comment on above: Result Comment: Canc elled via OM: Order cancelled - Patient discharged Performed By: #### L 500.2500, L100.0100 ####[facility] [address] [place], [address] WBC Normal 4.4-11.0 [facility] Comment on above: Result Comment: Canc elled via OM: Order cancelled - Patient discharged Performed By: #### L 500.2500, L100.0100 ####[facility] [address] [place], [address] Prothrombin Time w/INRon INR Normal [facility] Comment on above: Result Comment: Canc elled via OM: Order cancelled - Patient discharged Performed By: #### L 300.3900 ####[facility] [address] [place], [address] PROTIME Normal 11.7-14.9 [facility] Comment on above: Result Comment: Canc elled via OM: Order cancelled - Patient discharged Performed By: #### L 300.3900 ####[facility] [address] [place], [address] Absolute lymphocyte countOrd ered By: Danae Stanton on 03-02-2025 Lymphocytes Auto (Unsp spec) [#/Vol] 1.43 10*3/uL 0.83-4.51 [facility] Absolute neutrophil countOrd ered By: Danae Stanton on 03-02-2025 Neutrophils (Bld) [#/Vol] 4.2 10*3/uL 2.0-7.7 [facility] Anion gap in Serum or Plasma Ordered By: Danae Stanton on 03-02-2025 Anion gap [Moles/Vol] 11 mmol/L 5-15 [facility] Automated lymphocyte count a s percentage of total leukocytesOrdered By: Danae Stanton on 03-02-2025 Lymphocytes/100 WBC Auto (Unsp spec) 22.2 % 19-41 [facility] BUN/creatinine ratioOrdered By: Danae Stanton on 03-02-2025 Urea nitrogen/Creatinine [Mass ratio] 7.0 mg/mg Low 10-20 [facility] Basic Metabolic Profile (BMP )on 03-02-2025 BUN/CRE 7.0 RATIO Low 10-20 [facility] Comment on above: Performed By: #### L 100.0100, L500.2500 ####[facility] [address] [place], [address] Calcium [Mass/Vol] 8.8 mg/dL Normal 7.6-11.0 [facility] Comment on above: Performed By: #### L 100.0100, L500.2500 ####[facility] [address] [place], [address] Chloride [Moles/Vol] 107 mmol/L Normal 98-108 [facility] Comment on above: Performed By: #### L 100.0100, L500.2500 ####[facility] [address] [place], [address] CO2 [Moles/Vol] 20.9 mmol/L Low 21.0-32.0 [facility] Comment on above: Performed By: #### L 100.0100, L500.2500 ####[facility] [address] [place], [address] Creatinine [Mass/Vol] 0.81 mg/dL Normal 0.70-1.20 [facility] Comment on above: Performed By: #### L 100.0100, L500.2500 ####[facility] [address] [place], [address] ECRCL 116.75 ml/min Normal 50-250 [facility] Comment on above: Performed By: #### L 100.0100, L500.2500 ####[facility] [address] [place], [address] GAP 11 Normal 5-15 [facility] Comment on above: Performed By: #### L 100.0100, L500.2500 ####[facility] [address] [place], [address] GFR/1.73 sq M.predicted among non-blacks MDRD (S/P/Bld) [Vol rate/Area] 94 mL/min/{1.73_m2} Normal >60 [facility] Comment on above: Result Comment: mL/m in/1.73m2 CKD-EPI Creatinine Equation (2020) Performed By: #### L 100.0100, L500.2500 ####[facility] [address] [place], [address] Glucose [Mass/Vol] 104 mg/dL High 70-99 [facility] Comment on above: Performed By: #### L 100.0100, L500.2500 ####[facility] [address] [place], [address] Potassium [Moles/Vol] 3.4 mmol/L Normal 3.3-5.1 [facility] Comment on above: Performed By: #### L 100.0100, L500.2500 ####[facility] [address] [place], [address] Sodium [Moles/Vol] 138 mmol/L Normal 133-145 [facility] Comment on above: Performed By: #### L 100.0100, L500.2500 ####[facility] [address] [place], [address] Urea nitrogen [Mass/Vol] 6 mg/dL Normal 4-19 [facility] Comment on above: Performed By: #### L 100.0100, L500.2500 ####[facility] [address] [place], [address] Basophil percentageOrdered B y: Danae Stanton on 03-02-2025 Basophils/100 WBC (Bld) 0.5 % 0-1 [facility] CBC W/Diff, Automatedon 07-2 Absolute Lymph 1.43 X10 3/uL Normal 0.83-4.51 [facility] Comment on above: Performed By: #### L 100.0100, L500.2500 ####[facility] [address] [place], [address] Absolute Neut 4.2 X10 3/uL Normal 2.0-7.7 [facility] Comment on above: Performed By: #### L 100.0100, L500.2500 ####[facility] [address] [place], [address] Basophils/100 WBC (Bld) 0.5 % Normal 0-1 [facility] Comment on above: Performed By: #### L 100.0100, L500.2500 ####[facility] [address] [place], [address] Eosinophils/100 WBC (Bld) 3.9 % Normal 0-5 [facility] Comment on above: Performed By: #### L 100.0100, L500.2500 ####[facility] [address] [place], [address] Erythrocyte distribution width (RBC) [Ratio] 14.7 % High 11.6-14.6 [facility] Comment on above: Performed By: #### L 100.0100, L500.2500 ####[facility] [address] [place], [address] Hematocrit (Bld) [Volume fraction] 34.7 % Low 40-54 [facility] Comment on above: Performed By: #### L 100.0100, L500.2500 ####[facility] [address] [place], [address] Hemoglobin (Bld) [Mass/Vol] 11.6 g/dL Low 13.0-16.5 [facility] Comment on above: Performed By: #### L 100.0100, L500.2500 ####[facility] [address] [place], [address] IG% 0.300 Normal 0.0-0.9 [facility] Comment on above: Result Comment: IG% - Immature Granulocytes (promyelocytes, myelocytes andmetamyelocytes) > 1% indicates that a LEFT SHIFT is Present. Performed By: #### L 100.0100, L500.2500 ####[facility] [address] [place], [address] Lymphocytes/100 WBC (Bld) 22.2 % Normal 19-41 [facility] Comment on above: Performed By: #### L 100.0100, L500.2500 ####[facility] [address] [place], [address] MCH (RBC) [Entitic mass] 29.8 pg Normal 27.0-32.0 [facility] Comment on above: Performed By: #### L 100.0100, L500.2500 ####[facility] [address] [place], [address] MCHC (RBC) [Mass/Vol] 33.4 g/dL Normal 32-36 [facility] Comment on above: Performed By: #### L 100.0100, L500.2500 ####[facility] [address] [place], [address] MCV (RBC) [Entitic vol] 89.2 fL Normal 80-94 [facility] Comment on above: Performed By: #### L 100.0100, L500.2500 ####[facility] [address] [place], [address] Monocytes/100 WBC (Bld) 8.5 % Normal 0-10 [facility] Comment on above: Performed By: #### L 100.0100, L500.2500 ####[facility] [address] [place], [address] Neutrophils/100 WBC (Bld) 64.6 % Normal 47-70 [facility] Comment on above: Performed By: #### L 100.0100, L500.2500 ####[facility] [address] [place], [address] Nucleated RBC (Bld) [#/Vol] 0 10*3/uL Normal 0-5 [facility] Comment on above: Performed By: #### L 100.0100, L500.2500 ####[facility] [address] [place], [address] Platelet mean volume (Bld) [Entitic vol] 8.7 fL Normal 6.2-12.0 [facility] Comment on above: Performed By: #### L 100.0100, L500.2500 ####[facility] [address] [place], [address] Platelets (Bld) [#/Vol] 192 10*3/uL Normal 150-450 [facility] Comment on above: Performed By: #### L 100.0100, L500.2500 ####[facility] [address] [place], [address] RBC (Bld) [#/Vol] 3.89 10*6/uL Low 4.6-6.2 [facility] Comment on above: Performed By: #### L 100.0100, L500.2500 ####[facility] [address] [place], [address] RDW SD 47.9 fl High 35.1-43.9 [facility] Comment on above: Performed By: #### L 100.0100, L500.2500 ####[facility] [address] [place], [address] WBC (Bld) [#/Vol] 6.4 10*3/uL Normal 4.4-11.0 [facility] Comment on above: Performed By: #### L 100.0100, L500.2500 ####[facility] [address] [place], [address] Carbon dioxide, total [Moles /volume] in Central venous bloodOrdered By: Danae Stanton on 03-02-2025 CO2 [Moles/Vol] 20.9 mmol/L Low 21.0-32.0 [facility] Chloride assayOrdered By: Na na Romy on 03-02-2025 Chloride [Moles/Vol] 107 mmol/L 98-108 [facility] Discharge Instructionon - Discharge Instruction Normal [facility] Eosinophil percentageOrdered By: Danae Stanton on 03-02-2025 Eosinophils/100 WBC (Bld) 3.9 % 0-5 [facility] Erythrocyte distribution wid th ratioOrdered By: Danae Stanton on 03-02-2025 Erythrocyte distribution width (RBC) [Ratio] 14.7 % High 11.6-14.6 [facility] Erythrocyte distribution wid th standard deviationOrdered By: Danae Stanton on 03-02-2025 Erythrocyte distribution width (RBC) [Ratio] 47.9 fl High 35.1-43.9 [facility] Glomerular filtration rate ( GFR) estimation/1.73 sq m using serum, plasma, or whole bOrdered By: Danae Stanton on 03-02-2025 GFR/1.73 sq M.predicted among non-blacks MDRD (S/P/Bld) [Vol rate/Area] 94 mL/min/{1.73_m2} >60 [facility] Comment on above: mL/min/1.73m2 CKD-EP I Creatinine Equation (2020) Hematocrit Auto (Bld) [Volum e fraction]Ordered By: Danae Stanton on 03-02-2025 Hematocrit (Bld) [Volume fraction] 34.7 % Low 40-54 [facility] Hemoglobin measurementOrdere d By: Danae Stanton on 03-02-2025 Hemoglobin (Bld) [Mass/Vol] 11.6 g/dL Low 13.0-16.5 [facility] Immature granulocytes/100 WB C Auto (Bld)Ordered By: Danae Stanton on 03-02-2025 Immature granulocytes/100 WBC (Bld) 0.300 % 0.0-0.9 [facility] Comment on above: IG% - Immature Granu locytes (promyelocytes, myelocytes and metamyelocytes) > 1% indicates that a LEFT SHIFT is Present. International normalized rat io (INR) calculationOrdered By: Lisa Mike on 03-02-2025 INR Coag (Bld) [Relative time] 3.3 {INR} [facility] MCV (mean corpuscular volume ) determinationOrdered By: Danae Stanton on 03-02-2025 MCV (RBC) [Entitic vol] 89.2 fL 80-94 [facility] Mean corpuscular hemoglobin (MCH) determinationOrdered By: Danae Stanton on 03-02-2025 MCH (RBC) [Entitic mass] 29.8 pg 27.0-32.0 [facility] Mean corpuscular hemoglobin concentration (MCHC) determinationOrdered By: Danae Stanton on 03-02-2025 MCHC (RBC) [Mass/Vol] 33.4 g/dL 32-36 [facility] Mean platelet volume determi nationOrdered By: Danae Stanton on 03-02-2025 Platelet mean volume (Bld) [Entitic vol] 8.7 fL 6.2-12.0 [facility] Monocyte percentageOrdered B y: Danae Stanton on 03-02-2025 Monocytes/100 WBC (Bld) 8.5 % 0-10 [facility] Neutrophil percentageOrdered By: Danae Stanton on 03-02-2025 Neutrophils/100 WBC (Bld) 64.6 % 47-70 [facility] Nucleated red blood cell per centageOrdered By: Danae Stanton on 03-02-2025 Nucleated RBC/100 WBC (Bld) [Ratio] 0 % 0-5 [facility] Platelet countOrdered By: Ria Stanton on 03-02-2025 Platelets (Bld) [#/Vol] 192 10*3/uL 150-450 [facility] Potassium measurement (mass/ volume)Ordered By: Danae Stanton on 03-02-2025 Potassium (Unsp spec) [Mass/Vol] 3.4 mmol/L 3.3-5.1 [facility] Prothrombin Time w/INRon INR Coag (PPP) [Relative time] 3.3 {INR} Normal [facility] Comment on above: Performed By: #### L 300.3900 ####[facility] [address] [place], [address] PT Coag (PPP) [Time] 34.4 s High 11.7-14.9 [facility] Comment on above: Performed By: #### L 300.3900 ####[facility] [address] [place], [address] Prothrombin timeOrdered By: Lisa Mike on 03-02-2025 PT Coag (PPP) [Time] 34.4 s High 11.7-14.9 [facility] RBC Auto (Bld) [#/Vol]Ordere d By: Danae Stanton on 03-02-2025 RBC (Bld) [#/Vol] 3.89 10*6/uL Low 4.6-6.2 [facility] Serum creatinine measurement (mass/volume)Ordered By: Danae Stanton on 03-02-2025 Creatinine [Mass/Vol] 0.81 mg/dL 0.70-1.20 [facility] Serum glucose measurement (m ass/volume)Ordered By: Danae Stanton on 03-02-2025 Glucose [Mass/Vol] 104 mg/dL High 70-99 [facility] Serum or plasma calcium mickie urement (mass/volume)Ordered By: Danae Stanton on 03-02-2025 Calcium [Mass/Vol] 8.8 mg/dL 7.6-11.0 [facility] Serum or plasma urea nitroge n measurement (mass/volume)Ordered By: Danae Stanton on 03-02-2025 Urea nitrogen [Mass/Vol] 6 mg/dL 4-19 [facility] Sodium levelOrdered By: Danae Stanton on 03-02-2025 Sodium [Moles/Vol] 138 mmol/L 133-145 [facility] White blood cell (WBC) count Ordered By: Danae Stanton on 03-02-2025 WBC (Bld) [#/Vol] 6.4 10*3/uL 4.4-11.0 [facility] Basic Metabolic Profile (BMP )on 03-01-2025 BUN/CRE 9.4 RATIO Low 10-20 [facility] Comment on above: Performed By: #### L 100.0100, L500.2500 ####[facility] [address] [place], [address] Calcium [Mass/Vol] 8.6 mg/dL Normal 7.6-11.0 [facility] Comment on above: Performed By: #### L 100.0100, L500.2500 ####[facility] [address] [place], [address] Chloride [Moles/Vol] 107 mmol/L Normal 98-108 [facility] Comment on above: Performed By: #### L 100.0100, L500.2500 ####[facility] [address] [place], [address] CO2 [Moles/Vol] 19.8 mmol/L Low 21.0-32.0 [facility] Comment on above: Performed By: #### L 100.0100, L500.2500 ####[facility] [address] [place], [address] Creatinine [Mass/Vol] 0.85 mg/dL Normal 0.70-1.20 [facility] Comment on above: Performed By: #### L 100.0100, L500.2500 ####[facility] [address] [place], [address] ECRCL 111.80 ml/min Normal 50-250 [facility] Comment on above: Performed By: #### L 100.0100, L500.2500 ####[facility] [address] [place], [address] GAP 12 Normal 5-15 [facility] Comment on above: Performed By: #### L 100.0100, L500.2500 ####[facility] [address] [place], [address] GFR/1.73 sq M.predicted among non-blacks MDRD (S/P/Bld) [Vol rate/Area] 93 mL/min/{1.73_m2} Normal >60 [facility] Comment on above: Result Comment: mL/m in/1.73m2 CKD-EPI Creatinine Equation (2020) Performed By: #### L 100.0100, L500.2500 ####[facility] [address] [place], [address] Glucose [Mass/Vol] 94 mg/dL Normal 70-99 [facility] Comment on above: Performed By: #### L 100.0100, L500.2500 ####[facility] [address] [place], [address] Potassium [Moles/Vol] 3.1 mmol/L Low 3.3-5.1 [facility] Comment on above: Performed By: #### L 100.0100, L500.2500 ####[facility] [address] [place], [address] Sodium [Moles/Vol] 139 mmol/L Normal 133-145 [facility] Comment on above: Performed By: #### L 100.0100, L500.2500 ####[facility] [address] [place], [address] Urea nitrogen [Mass/Vol] 8 mg/dL Normal 4-19 [facility] Comment on above: Performed By: #### L 100.0100, L500.2500 ####[facility] [address] [place], [address] CBC W/Diff, Automatedon 07-2 Absolute Lymph 1.17 X10 3/uL Normal 0.83-4.51 [facility] Comment on above: Performed By: #### L 100.0100, L500.2500 ####[facility] [address] [place], [address] Absolute Neut 3.3 X10 3/uL Normal 2.0-7.7 [facility] Comment on above: Performed By: #### L 100.0100, L500.2500 ####[facility] [address] [place], [address] Basophils/100 WBC (Bld) 0.6 % Normal 0-1 [facility] Comment on above: Performed By: #### L 100.0100, L500.2500 ####[facility] [address] [place], [address] Eosinophils/100 WBC (Bld) 4.7 % Normal 0-5 [facility] Comment on above: Performed By: #### L 100.0100, L500.2500 ####[facility] [address] [place], [address] Erythrocyte distribution width (RBC) [Ratio] 14.6 % Normal 11.6-14.6 [facility] Comment on above: Performed By: #### L 100.0100, L500.2500 ####[facility] [address] [place], [address] Hematocrit (Bld) [Volume fraction] 34.2 % Low 40-54 [facility] Comment on above: Performed By: #### L 100.0100, L500.2500 ####[facility] [address] [place], [address] Hemoglobin (Bld) [Mass/Vol] 11.2 g/dL Low 13.0-16.5 [facility] Comment on above: Performed By: #### L 100.0100, L500.2500 ####[facility] [address] [place], [address] IG% 0.200 Normal 0.0-0.9 [facility] Comment on above: Result Comment: IG% - Immature Granulocytes (promyelocytes, myelocytes andmetamyelocytes) > 1% indicates that a LEFT SHIFT is Present. Performed By: #### L 100.0100, L500.2500 ####[facility] [address] [place], [address] Lymphocytes/100 WBC (Bld) 22.7 % Normal 19-41 [facility] Comment on above: Performed By: #### L 100.0100, L500.2500 ####[facility] [address] [place], [address] MCH (RBC) [Entitic mass] 29.2 pg Normal 27.0-32.0 [facility] Comment on above: Performed By: #### L 100.0100, L500.2500 ####[facility] [address] [place], [address] MCHC (RBC) [Mass/Vol] 32.7 g/dL Normal 32-36 [facility] Comment on above: Performed By: #### L 100.0100, L500.2500 ####[facility] [address] [place], [address] MCV (RBC) [Entitic vol] 89.3 fL Normal 80-94 [facility] Comment on above: Performed By: #### L 100.0100, L500.2500 ####[facility] [address] [place], [address] Monocytes/100 WBC (Bld) 8.7 % Normal 0-10 [facility] Comment on above: Performed By: #### L 100.0100, L500.2500 ####[facility] [address] [place], [address] Neutrophils/100 WBC (Bld) 63.1 % Normal 47-70 [facility] Comment on above: Performed By: #### L 100.0100, L500.2500 ####[facility] [address] [place], [address] Nucleated RBC (Bld) [#/Vol] 0 10*3/uL Normal 0-5 [facility] Comment on above: Performed By: #### L 100.0100, L500.2500 ####[facility] [address] [place], [address] Platelet mean volume (Bld) [Entitic vol] 9.2 fL Normal 6.2-12.0 [facility] Comment on above: Performed By: #### L 100.0100, L500.2500 ####[facility] [address] [place], [address] Platelets (Bld) [#/Vol] 188 10*3/uL Normal 150-450 [facility] Comment on above: Performed By: #### L 100.0100, L500.2500 ####[facility] [address] [place], [address] RBC (Bld) [#/Vol] 3.83 10*6/uL Low 4.6-6.2 [facility] Comment on above: Performed By: #### L 100.0100, L500.2500 ####[facility] [address] [place], [address] RDW SD 47.7 fl High 35.1-43.9 [facility] Comment on above: Performed By: #### L 100.0100, L500.2500 ####[facility] [address] [place], [address] WBC (Bld) [#/Vol] 5.2 10*3/uL Normal 4.4-11.0 [facility] Comment on above: Performed By: #### L 100.0100, L500.2500 ####[facility] [address] [place], [address] Prothrombin Time w/INRon INR Coag (PPP) [Relative time] 2.8 {INR} Normal [facility] Comment on above: Performed By: #### L 300.3900 ####[facility] [address] [place], [address] PT Coag (PPP) [Time] 30.0 s High 11.7-14.9 [facility] Comment on above: Performed By: #### L 300.3900 ####[facility] [address] [place], [address] Basic Metabolic Profile (BMP )on 02-28-2025 BUN/CRE 12.9 RATIO Normal 10-20 [facility] Comment on above: Performed By: #### L 500.2500, L100.0100, L300.3900, L501.9520 ####[facility] [address] [place], [address] Calcium [Mass/Vol] 8.4 mg/dL Normal 7.6-11.0 [facility] Comment on above: Performed By: #### L 500.2500, L100.0100, L300.3900, L501.9520 ####[facility] [address] [place], [address] Chloride [Moles/Vol] 102 mmol/L Normal 98-108 [facility] Comment on above: Performed By: #### L 500.2500, L100.0100, L300.3900, L501.9520 ####[facility] [address] [place], [address] CO2 [Moles/Vol] 20.6 mmol/L Low 21.0-32.0 [facility] Comment on above: Performed By: #### L 500.2500, L100.0100, L300.3900, L501.9520 ####[facility] [address] [place], [address] Creatinine [Mass/Vol] 0.72 mg/dL Normal 0.70-1.20 [facility] Comment on above: Performed By: #### L 500.2500, L100.0100, L300.3900, L501.9520 ####[facility] [address] [place], [address] ECRCL 120.80 ml/min Normal 50-250 [facility] Comment on above: Performed By: #### L 500.2500, L100.0100, L300.3900, L501.9520 ####[facility] [address] [place], [address] GAP 10 Normal 5-15 [facility] Comment on above: Performed By: #### L 500.2500, L100.0100, L300.3900, L501.9520 ####[facility] [address] [place], [address] GFR/1.73 sq M.predicted among non-blacks MDRD (S/P/Bld) [Vol rate/Area] 98 mL/min/{1.73_m2} Normal >60 [facility] Comment on above: Result Comment: mL/m in/1.73m2 CKD-EPI Creatinine Equation (2020) Performed By: #### L 500.2500, L100.0100, L300.3900, L501.9520 ####[facility] [address] [place], [address] Glucose [Mass/Vol] 103 mg/dL High 70-99 [facility] Comment on above: Performed By: #### L 500.2500, L100.0100, L300.3900, L501.9520 ####[facility] [address] [place], [address] Potassium [Moles/Vol] 3.3 mmol/L Normal 3.3-5.1 [facility] Comment on above: Performed By: #### L 500.2500, L100.0100, L300.3900, L501.9520 ####[facility] [address] [place], [address] Sodium [Moles/Vol] 132 mmol/L Low 133-145 [facility] Comment on above: Performed By: #### L 500.2500, L100.0100, L300.3900, [id number] ####[facility] [address] [place], [address] Urea nitrogen [Mass/Vol] 9 mg/dL Normal 4-19 [facility] Comment on above: Performed By: #### L 500.2500, L100.0100, L300.3900, [id number] ####[facility] [address] [place], [address] BUN/CRE 14.3 RATIO Normal 10-20 [facility] Comment on above: Performed By: #### L 500.2500 ####[facility] [address] [place], [address] Calcium [Mass/Vol] 8.5 mg/dL Normal 7.6-11.0 [facility] Comment on above: Performed By: #### L 500.2500 ####[facility] [address] [place], [address] Chloride [Moles/Vol] 97 mmol/L Low 98-108 [facility] Comment on above: Performed By: #### L 500.2500 ####[facility] [address] [place], [address] CO2 [Moles/Vol] 20.5 mmol/L Low 21.0-32.0 [facility] Comment on above: Performed By: #### L 500.2500 ####[facility] [address] [place], [address] Creatinine [Mass/Vol] 0.70 mg/dL Normal 0.70-1.20 [facility] Comment on above: Performed By: #### L 500.2500 ####[facility] [address] [place], [address] ECRCL 122.07 ml/min Normal 50-250 [facility] Comment on above: Performed By: #### L 500.2500 ####[facility] [address] [place], [address] GAP 10 Normal 5-15 [facility] Comment on above: Performed By: #### L 500.2500 ####[facility] [address] [place], [address] GFR/1.73 sq M.predicted among non-blacks MDRD (S/P/Bld) [Vol rate/Area] 99 mL/min/{1.73_m2} Normal >60 [facility] Comment on above: Result Comment: mL/m in/1.73m2 CKD-EPI Creatinine Equation (2020) Performed By: #### L 500.2500 ####[facility] [address] [place], [address] Glucose [Mass/Vol] 111 mg/dL High 70-99 [facility] Comment on above: Performed By: #### L 500.2500 ####[facility] [address] [place], [address] Potassium [Moles/Vol] 3.2 mmol/L Low 3.3-5.1 [facility] Comment on above: Performed By: #### L 500.2500 ####[facility] [address] [place], [address] Sodium [Moles/Vol] 128 mmol/L Low 133-145 [facility] Comment on above: Performed By: #### L 500.2500 ####[facility] [address] [place], [address] Urea nitrogen [Mass/Vol] 10 mg/dL Normal 4-19 [facility] Comment on above: Performed By: #### L 500.2500 ####[facility] [address] [place], [address] CBC W/Diff, Automatedon 07-2 6-2024 Absolute Lymph 1.03 X10 3/uL Normal 0.83-4.51 [facility] Comment on above: Performed By: #### L 500.2500, L100.0100, L300.3900, [id number] ####[facility] [address] [place], [address] Absolute Neut 4.5 X10 3/uL Normal 2.0-7.7 [facility] Comment on above: Performed By: #### L 500.2500, L100.0100, L300.3900, [id number] ####[facility] [address] [place], [address] Basophils/100 WBC (Bld) 0.3 % Normal 0-1 [facility] Comment on above: Performed By: #### L 500.2500, L100.0100, L300.3900, [id number] ####[facility] [address] [place], [address] Eosinophils/100 WBC (Bld) 3.0 % Normal 0-5 [facility] Comment on above: Performed By: #### L 500.2500, L100.0100, L300.3900, [id number] ####[facility] [address] [place], [address] Erythrocyte distribution width (RBC) [Ratio] 13.9 % Normal 11.6-14.6 [facility] Comment on above: Performed By: #### L 500.2500, L100.0100, L300.3900, L501.9520 ####[facility] [address] [place], [address] Hematocrit (Bld) [Volume fraction] 32.3 % Low 40-54 [facility] Comment on above: Performed By: #### L 500.2500, L100.0100, L300.3900, [id number] ####[facility] [address] [place], [address] Hemoglobin (Bld) [Mass/Vol] 11.0 g/dL Low 13.0-16.5 [facility] Comment on above: Performed By: #### L 500.2500, L100.0100, L300.3900, [id number] ####[facility] [address] [place], [address] IG% 0.500 Normal 0.0-0.9 [facility] Comment on above: Result Comment: IG% - Immature Granulocytes (promyelocytes, myelocytes andmetamyelocytes) > 1% indicates that a LEFT SHIFT is Present. Performed By: #### L 500.2500, L100.0100, L300.3900, L501.9520 ####[facility] [address] [place], [address] Lymphocytes/100 WBC (Bld) 16.5 % Low 19-41 [facility] Comment on above: Performed By: #### L 500.2500, L100.0100, L300.3900, [id number] ####[facility] [address] [place], [address] MCH (RBC) [Entitic mass] 29.6 pg Normal 27.0-32.0 [facility] Comment on above: Performed By: #### L 500.2500, L100.0100, L300.3900, [id number] ####[facility] [address] [place], [address] MCHC (RBC) [Mass/Vol] 34.1 g/dL Normal 32-36 [facility] Comment on above: Performed By: #### L 500.2500, L100.0100, L300.3900, [id number] ####[facility] [address] [place], [address] MCV (RBC) [Entitic vol] 86.8 fL Normal 80-94 [facility] Comment on above: Performed By: #### L 500.2500, L100.0100, L300.3900, [id number] ####[facility] [address] [place], [address] Monocytes/100 WBC (Bld) 7.3 % Normal 0-10 [facility] Comment on above: Performed By: #### L 500.2500, L100.0100, L300.3900, [id number] ####[facility] [address] [place], [address] Neutrophils/100 WBC (Bld) 72.4 % High 47-70 [facility] Comment on above: Performed By: #### L 500.2500, L100.0100, L300.3900, [id number] ####[facility] [address] [place], [address] Nucleated RBC (Bld) [#/Vol] 0 10*3/uL Normal 0-5 [facility] Comment on above: Performed By: #### L 500.2500, L100.0100, L300.3900, [id number] ####[facility] [address] [place], [address] Platelet mean volume (Bld) [Entitic vol] 9.2 fL Normal 6.2-12.0 [facility] Comment on above: Performed By: #### L 500.2500, L100.0100, L300.3900, L501.9520 ####[facility] [address] [place], [address] Platelets (Bld) [#/Vol] 188 10*3/uL Normal 150-450 [facility] Comment on above: Performed By: #### L 500.2500, L100.0100, L300.3900, L501.9520 ####[facility] [address] [place], [address] RBC (Bld) [#/Vol] 3.72 10*6/uL Low 4.6-6.2 [facility] Comment on above: Performed By: #### L 500.2500, L100.0100, L300.3900, L501.9520 ####[facility] [address] [place], [address] RDW SD 43.3 fl Normal 35.1-43.9 [facility] Comment on above: Performed By: #### L 500.2500, L100.0100, L300.3900, L501.9520 ####[facility] [address] [place], [address] WBC (Bld) [#/Vol] 6.3 10*3/uL Normal 4.4-11.0 [facility] Comment on above: Performed By: #### L 500.2500, L100.0100, L300.3900, L501.9520 ####[facility] [address] [place], [address] CDIFF (PCR)on 02-28-2025 CDIFF Is the patient recei ving laxatives? N New/unexplained onset of 3 or more stools in past 24 hrs? Y Pending 027 027 NAP1-B1 Presumptive Negative *for epidemiolologic???use C. Diff PCR Negative- No toxigenic C. Diff Detected Normal [facility] Comment on above: Performed By: #### M 100.637, M100.6796 ####[facility] [address] [place], [address] Consultation - Surgicalon Consultation - Surgical Normal [facility] ENTERIC PATHOGEN PANEL STOOL on 02-28-2025 EP PANEL Normal [facility] Comment on above: Performed By: #### M 100.637, M100.6796 ####[facility] [address] [place], [address] Prothrombin Time w/INRon INR Coag (PPP) [Relative time] 2.5 {INR} Normal [facility] Comment on above: Performed By: #### L 500.2500, L100.0100, L300.3900, L501.9520 ####[facility] [address] [place], [address] PT Coag (PPP) [Time] 27.1 s High 11.7-14.9 [facility] Comment on above: Performed By: #### L 500.2500, L100.0100, L300.3900, L501.9520 ####[facility] [address] [place], [address] Small Bowel Series Onlyon Small Bowel Series Only Normal [facility] TSH DL <= 0.005 mIU/L QnOrde red By: Lisa Mike on 02-28-2025 TSH Qn 1.500 uIU/mL 0.300-4.200 [facility] Thyroid Stim Hormone (TSH)on 02-28-2025 TSH 1.500 uIU/mL Normal 0.300-4.200 [facility] Comment on above: Performed By: #### L 500.2500, L100.0100, L300.3900, L501.9520 ####[facility] [address] [place], [address] Abdomen/Pelvis W IV Cont ONL Yon 02-27-2025 Abdomen/Pelvis W IV Cont ONLY Normal [facility] Absolute lymphocyte countOrd ered By: Khang Osuna on 02-27-2025 Lymphocytes Auto (Unsp spec) [#/Vol] 1.39 10*3/uL 0.83-4.51 [facility] Absolute neutrophil countOrd ered By: Khang Osuna on 02-27-2025 Neutrophils (Bld) [#/Vol] 5.9 10*3/uL 2.0-7.7 [facility] Anion gap in Serum or Plasma Ordered By: Khang Osuna on 02-27-2025 Anion gap [Moles/Vol] 12 mmol/L 5-15 [facility] Automated lymphocyte count a s percentage of total leukocytesOrdered By: Khang Osuna on 02-27-2025 Lymphocytes/100 WBC Auto (Unsp spec) 16.7 % Low 19-41 [facility] BUN/creatinine ratioOrdered By: Khang Osuna on 02-27-2025 Urea nitrogen/Creatinine [Mass ratio] 18.2 mg/mg 10- [facility] Basic Metabolic Profile (BMP )on 02-27-2025 BUN/CRE 12.7 RATIO Normal - [facility] Comment on above: Performed By: #### L 500.2500 ####[facility] [address] [facility] [address] Calcium [Mass/Vol] 8.3 mg/dL Normal 7.6-11.0 [facility] Comment on above: Performed By: #### L 500.2500 ####[facility] [address] [place], [address] Chloride [Moles/Vol] 94 mmol/L Low 98-108 [facility] Comment on above: Performed By: #### L 500.2500 ####[facility] [address] [place], [address] CO2 [Moles/Vol] 20.8 mmol/L Low 21.0-32.0 [facility] Comment on above: Performed By: #### L 500.2500 ####[facility] [address] [place], [address] Creatinine [Mass/Vol] 0.76 mg/dL Normal 0.70-1.20 [facility] Comment on above: Performed By: #### L 500.2500 ####[facility] [address] [place], [address] ECRCL 122.07 ml/min Normal 50-250 [facility] Comment on above: Performed By: #### L 500.2500 ####[facility] [address] [place], [address] GAP 10 Normal 5-15 [facility] Comment on above: Performed By: #### L 500.2500 ####[facility] [address] [place], [address] GFR/1.73 sq M.predicted among non-blacks MDRD (S/P/Bld) [Vol rate/Area] 96 mL/min/{1.73_m2} Normal >60 [facility] Comment on above: Result Comment: mL/m in/1.73m2 CKD-EPI Creatinine Equation (2020) Performed By: #### L 500.2500 ####[facility] [address] [place], [address] Glucose [Mass/Vol] 120 mg/dL High 70-99 [facility] Comment on above: Performed By: #### L 500.2500 ####[facility] [address] [place], [address] Potassium [Moles/Vol] 3.2 mmol/L Low 3.3-5.1 [facility] Comment on above: Performed By: #### L 500.2500 ####[facility] [address] [place], [address] Sodium [Moles/Vol] 125 mmol/L Low 133-145 [facility] Comment on above: Performed By: #### L 500.2500 ####[facility] [address] [place], [address] Urea nitrogen [Mass/Vol] 10 mg/dL Normal 4-19 [facility] Comment on above: Performed By: #### L 500.2500 ####[facility] [address] [place], [address] BUN/CRE 14.1 RATIO Normal 10-20 [facility] Comment on above: Performed By: #### L 501.7300, L500.2500 ####[facility] [address] [place], [address] Calcium [Mass/Vol] 8.1 mg/dL Normal 7.6-11.0 [facility] Comment on above: Performed By: #### L 501.7300, L500.2500 ####[facility] [address] [place], [address] Chloride [Moles/Vol] 91 mmol/L Low 98-108 [facility] Comment on above: Performed By: #### L 501.7300, L500.2500 ####[facility] [address] [place], [address] CO2 [Moles/Vol] 20.2 mmol/L Low 21.0-32.0 [facility] Comment on above: Performed By: #### L 501.7300, L500.2500 ####[facility] [address] [place], [address] Creatinine [Mass/Vol] 0.75 mg/dL Normal 0.70-1.20 [facility] Comment on above: Performed By: #### L 501.7300, L500.2500 ####[facility] [address] [place], [address] ECRCL 122.07 ml/min Normal 50-250 [facility] Comment on above: Performed By: #### L 501.7300, L500.2500 ####[facility] [address] [place], [address] GAP 11 Normal 5-15 [facility] Comment on above: Performed By: #### L 501.7300, L500.2500 ####[facility] [address] [place], [address] GFR/1.73 sq M.predicted among non-blacks MDRD (S/P/Bld) [Vol rate/Area] 96 mL/min/{1.73_m2} Normal >60 [facility] Comment on above: Result Comment: mL/m in/1.73m2 CKD-EPI Creatinine Equation (2020) Performed By: #### L 501.7300, L500.2500 ####[facility] [address] [place], [address] Glucose [Mass/Vol] 134 mg/dL High 70-99 [facility] Comment on above: Performed By: #### L 501.7300, L500.2500 ####[facility] [address] [place], [address] Potassium [Moles/Vol] 3.1 mmol/L Low 3.3-5.1 [facility] Comment on above: Performed By: #### L 501.7300, L500.2500 ####[facility] [address] [place], [address] Sodium [Moles/Vol] 122 mmol/L Low 133-145 [facility] Comment on above: Performed By: #### L 501.7300, L500.2500 ####[facility] [address] [place], [address] Urea nitrogen [Mass/Vol] 11 mg/dL Normal 4-19 [facility] Comment on above: Performed By: #### L 501.7300, L500.2500 ####[facility] [address] [place], [address] Basophil percentageOrdered B y: Khang Osuna on 02-27-2025 Basophils/100 WBC (Bld) 0.2 % 0-1 [facility] Beta-Hydroxbytyrateon 2024 BETA-HYDROXYBUT 0.1 mmol/L Normal 0.0-0.3 [facility] Comment on above: Performed By: #### L 500.4050, L300.3900, L501.6901 ####[facility] [address] [place], [address] Beta-hydroxybutyrateOrdered By: Khang Osuna on 02-27-2025 Beta hydroxybutyrate [Mass/Vol] 0.1 mmol/L 0.0-0.3 [facility] Bilirubin Test strip Ql (U)O rdered By: Khang Osuna on 02-27-2025 Bilirubin Ql (U) Negative Negative [facility] Bilirubin, totalOrdered By: Khang Osuna on 02-27-2025 Bilirubin [Mass/Vol] 0.38 mg/dL 0.00-1.30 [facility] CBC W/Diff, Automatedon 02-04 Absolute Lymph 1.39 X10 3/uL Normal 0.83-4.51 [facility] Comment on above: Performed By: #### L 503.6005, L100.0100 ####[facility] [address] [place], [address] Absolute Neut 5.9 X10 3/uL Normal 2.0-7.7 [facility] Comment on above: Performed By: #### L 503.6005, L100.0100 ####[facility] [address] [place], [address] Basophils/100 WBC (Bld) 0.2 % Normal 0-1 [facility] Comment on above: Performed By: #### L 503.6005, L100.0100 ####[facility] [address] [place], [address] Eosinophils/100 WBC (Bld) 1.9 % Normal 0-5 [facility] Comment on above: Performed By: #### L 503.6005, L100.0100 ####[facility] [address] [place], [address] Erythrocyte distribution width (RBC) [Ratio] 13.8 % Normal 11.6-14.6 [facility] Comment on above: Performed By: #### L 503.6005, L100.0100 ####[facility] [address] [place], [address] Hematocrit (Bld) [Volume fraction] 32.5 % Low 40-54 [facility] Comment on above: Performed By: #### L 503.6005, L100.0100 ####[facility] [address] [place], [address] Hemoglobin (Bld) [Mass/Vol] 11.0 g/dL Low 13.0-16.5 [facility] Comment on above: Performed By: #### L 503.6005, L100.0100 ####[facility] [address] [place], [address] IG% 0.600 Normal 0.0-0.9 [facility] Comment on above: Result Comment: IG% - Immature Granulocytes (promyelocytes, myelocytes andmetamyelocytes) > 1% indicates that a LEFT SHIFT is Present. Performed By: #### L 503.6005, L100.0100 ####[facility] [address] [place], [address] Lymphocytes/100 WBC (Bld) 16.7 % Low 19-41 [facility] Comment on above: Performed By: #### L 503.6005, L100.0100 ####[facility] [address] [place], [address] MCH (RBC) [Entitic mass] 29.2 pg Normal 27.0-32.0 [facility] Comment on above: Performed By: #### L 503.6005, L100.0100 ####[facility] [address] [place], [address] MCHC (RBC) [Mass/Vol] 33.8 g/dL Normal 32-36 [facility] Comment on above: Performed By: #### L 503.6005, L100.0100 ####[facility] [address] [place], [address] MCV (RBC) [Entitic vol] 86.2 fL Normal 80-94 [facility] Comment on above: Performed By: #### L 503.6005, L100.0100 ####[facility] [address] [place], [address] Monocytes/100 WBC (Bld) 9.2 % Normal 0-10 [facility] Comment on above: Performed By: #### L 503.6005, L100.0100 ####[facility] [address] [place], [address] Neutrophils/100 WBC (Bld) 71.4 % High 47-70 [facility] Comment on above: Performed By: #### L 503.6005, L100.0100 ####[facility] [address] [place], [address] Nucleated RBC (Bld) [#/Vol] 0 10*3/uL Normal 0-5 [facility] Comment on above: Performed By: #### L 503.6005, L100.0100 ####[facility] [address] [place], [address] Platelet mean volume (Bld) [Entitic vol] 8.9 fL Normal 6.2-12.0 [facility] Comment on above: Performed By: #### L 503.6005, L100.0100 ####[facility] [address] [place], [address] Platelets (Bld) [#/Vol] 193 10*3/uL Normal 150-450 [facility] Comment on above: Performed By: #### L 503.6005, L100.0100 ####[facility] [address] [place], [address] RBC (Bld) [#/Vol] 3.77 10*6/uL Low 4.6-6.2 [facility] Comment on above: Performed By: #### L 503.6005, L100.0100 ####[facility] [address] [place], [address] RDW SD 43.1 fl Normal 35.1-43.9 [facility] Comment on above: Performed By: #### L 503.6005, L100.0100 ####[facility] [address] [place], [address] WBC (Bld) [#/Vol] 8.3 10*3/uL Normal 4.4-11.0 [facility] Comment on above: Performed By: #### L 503.6005, L100.0100 ####[facility] [address] [place], [address] CO2 (BldV) [Moles/Vol]Ordere d By: Khang Osuna on 02-27-2025 CO2 [Moles/Vol] 22 mmol/L Low 23-33 [facility] Carbon dioxide, total [Moles /volume] in Central venous bloodOrdered By: Khang Osuna on 02-27-2025 CO2 [Moles/Vol] 19.7 mmol/L Low 21.0-32.0 [facility] Chloride assayOrdered By: Guille Osuna on 02-27-2025 Chloride [Moles/Vol] 89 mmol/L Low 98-108 [facility] Clostridium difficile detect ion by polymerase chain reactionOrdered By: Lisa Mike on 02-27-2025 C. difficile DNA ZACHARY+probe Ql (Unsp spec) [facility] Comprehensive Metabolic Prof ilon 02-27-2025 Albumin [Mass/Vol] 3.8 g/dL Normal 3.4-4.8 [facility] Comment on above: Performed By: #### L 500.4050, L300.3900, L501.6901 ####[facility] [address] [place], [address] Albumin/Globulin [Mass ratio] 1.6 {ratio} Normal 0.9-2.4 [facility] Comment on above: Performed By: #### L 500.4050, L300.3900, L501.6901 ####[facility] [address] [place], [address] ALK PHOS 113 U/L Normal 40-129 [facility] Comment on above: Performed By: #### L 500.4050, L300.3900, L501.6901 ####[facility] [address] [place], [address] ALT [Catalytic activity/Vol] 24 U/L Normal <=46 [facility] Comment on above: Performed By: #### L 500.4050, L300.3900, L501.6901 ####[facility] [address] [place], [address] AST [Catalytic activity/Vol] 29 U/L Normal <=37 [facility] Comment on above: Performed By: #### L 500.4050, L300.3900, L501.6901 ####[facility] [address] [place], [address] Bilirubin [Mass/Vol] 0.38 mg/dL Normal 0.00-1.30 [facility] Comment on above: Performed By: #### L 500.4050, L300.3900, L501.6901 ####[facility] [address] [place], [address] BUN/CRE 18.2 RATIO Normal 10-20 [facility] Comment on above: Performed By: #### L 500.4050, L300.3900, L501.6901 ####[facility] [address] [place], [address] Calcium [Mass/Vol] 8.0 mg/dL Normal 7.6-11.0 [facility] Comment on above: Performed By: #### L 500.4050, L300.3900, L501.6901 ####[facility] [address] [place], [address] Chloride [Moles/Vol] 89 mmol/L Low 98-108 [facility] Comment on above: Performed By: #### L 500.4050, L300.3900, L501.6901 ####[facility] [address] [place], [address] CO2 [Moles/Vol] 19.7 mmol/L Low 21.0-32.0 [facility] Comment on above: Performed By: #### L 500.4050, L300.3900, L501.6901 ####[facility] [address] [place], [address] Creatinine [Mass/Vol] 0.81 mg/dL Normal 0.70-1.20 [facility] Comment on above: Performed By: #### L 500.4050, L300.3900, L501.6901 ####[facility] [address] [place], [address] ECRCL 118.12 ml/min Normal 50-250 [facility] Comment on above: Performed By: #### L 500.4050, L300.3900, L501.6901 ####[facility] [address] [place], [address] GAP 12 Normal 5-15 [facility] Comment on above: Performed By: #### L 500.4050, L300.3900, L501.6901 ####[facility] [address] [place], [address] GFR/1.73 sq M.predicted among non-blacks MDRD (S/P/Bld) [Vol rate/Area] 94 mL/min/{1.73_m2} Normal >60 [facility] Comment on above: Result Comment: mL/m in/1.73m2 CKD-EPI Creatinine Equation (2020) Performed By: #### L 500.4050, L300.3900, L501.6901 ####[facility] [address] [place], [address] Globulin (S) [Mass/Vol] 2.3 g/dL Normal 2.2-4.2 [facility] Comment on above: Performed By: #### L 500.4050, L300.3900, L501.6901 ####[facility] [address] [place], [address] Glucose [Mass/Vol] 100 mg/dL High 70-99 [facility] Comment on above: Performed By: #### L 500.4050, L300.3900, L501.6901 ####[facility] [address] [place], [address] Potassium [Moles/Vol] 3.0 mmol/L Low 3.3-5.1 [facility] Comment on above: Performed By: #### L 500.4050, L300.3900, L501.6901 ####[facility] [address] [place], [address] Sodium [Moles/Vol] 121 mmol/L Low 133-145 [facility] Comment on above: Performed By: #### L 500.4050, L300.3900, L501.6901 ####[facility] [address] [place], [address] T PROT 6.1 g/dL Normal 5.9-8.4 [facility] Comment on above: Performed By: #### L 500.4050, L300.3900, L501.6901 ####[facility] [address] [place], [address] Urea nitrogen [Mass/Vol] 15 mg/dL Normal 4-19 [facility] Comment on above: Performed By: #### L 500.4050, L300.3900, L501.6901 ####[facility] [address] [place], [address] Emergency Department Summary on 02-27-2025 Emergency Department Summary Normal [facility] Eosinophil percentageOrdered By: Khang Osuna on 02-27-2025 Eosinophils/100 WBC (Bld) 1.9 % 0-5 [facility] Erythrocyte distribution wid th ratioOrdered By: Khang Osuna on 02-27-2025 Erythrocyte distribution width (RBC) [Ratio] 13.8 % 11.6-14.6 [facility] Erythrocyte distribution wid th standard deviationOrdered By: Khang Osuna on 02-27-2025 Erythrocyte distribution width (RBC) [Ratio] 43.1 fl 35.1-43.9 [facility] Glomerular filtration rate ( GFR) estimation/1.73 sq m using serum, plasma, or whole bOrdered By: Khang Osuna on 02-27-2025 GFR/1.73 sq M.predicted among non-blacks MDRD (S/P/Bld) [Vol rate/Area] 94 mL/min/{1.73_m2} >60 [facility] Comment on above: mL/min/1.73m2 CKD-EP I Creatinine Equation (2020) H AND P Exam - [facility] 02-27-2025 H&P Exam - Hospitalist Normal [facility] Hematocrit Auto (Bld) [Volum e fraction]Ordered By: Khang Osuna on 02-27-2025 Hematocrit (Bld) [Volume fraction] 32.5 % Low 40-54 [facility] Hemoglobin measurementOrdere d By: Khang Osuna on 02-27-2025 Hemoglobin (Bld) [Mass/Vol] 11.0 g/dL Low 13.0-16.5 [facility] Immature granulocytes/100 WB C Auto (Bld)Ordered By: Khang Osuna on 07-25-2025 Immature granulocytes/100 WBC (Bld) 0.600 % 0.0-0.9 [facility] Comment on above: IG% - Immature Granu locytes (promyelocytes, myelocytes and metamyelocytes) > 1% indicates that a LEFT SHIFT is Present. International normalized rat io (INR) calculationOrdered By: Khang Osuna on 02-27-2025 INR Coag (Bld) [Relative time] 2.5 {INR} [facility] Ketones Test strip Ql (U)Ord ered By: Khang Osuna on 02-27-2025 Ketones Ql (U) Negative Negative [facility] Laboratory - Chemistry and C hemistry - challengeOrdered By: Khang Osuna on 02-27-2025 AST [Catalytic activity/Vol] 29 U/L <38 [facility] Lactic Acidon 02-27-2025 Lactate [Moles/Vol] 1.4 mmol/L Normal 0.0-2.0 [facility] Comment on above: Order Comment: Y Performed By: #### L 503.6005, L100.0100 ####[facility] [address] [place], [address] Lactic acid measurementOrder ed By: Khang Osuna on 02-27-2025 Lactate [Moles/Vol] 1.4 mmol/L 0.0-2.0 [facility] MCV (mean corpuscular volume ) determinationOrdered By: Khang Osuna on 02-27-2025 MCV (RBC) [Entitic vol] 86.2 fL 80-94 [facility] MR/CON.PCM.GIon 02-27-2025 MR/CON.PCM.GI Normal [facility] Mean corpuscular hemoglobin (MCH) determinationOrdered By: Khang Osuna on 02-27-2025 MCH (RBC) [Entitic mass] 29.2 pg 27.0-32.0 [facility] Mean corpuscular hemoglobin concentration (MCHC) determinationOrdered By: Khang Osuna on 02-27-2025 MCHC (RBC) [Mass/Vol] 33.8 g/dL 32-36 [facility] Mean platelet volume determi nationOrdered By: Khang Osuna on 02-27-2025 Platelet mean volume (Bld) [Entitic vol] 8.9 fL 6.2-12.0 [facility] Microscopic analysis of urin e for red blood cells (RBC)Ordered By: Khang Osuna on 02-27-2025 Microscopic analysis of urine for red blood cells (RBC) 0 SEEN /hpf 0-5 [facility] Monocyte percentageOrdered B y: Khang Osuna on 02-27-2025 Monocytes/100 WBC (Bld) 9.2 % 0-10 [facility] Mucus LM Ql (Urine sed)Order ed By: Khang Osuna on 02-27-2025 Mucus Ql (Urine sed) 0 SEEN /hpf [facility] Neutrophil percentageOrdered By: Khang Osuna on 02-27-2025 Neutrophils/100 WBC (Bld) 71.4 % High 47-70 [facility] Nitrite Test strip Ql (U)Ord ered By: Khang Osuna on 02-27-2025 Nitrite Ql (U) Negative Negative [facility] No Panel InformationOrdered By: Khang Osuna on 02-27-2025 Blood Gas Sample Site Not entered [facility] Blood Gas Specimen Type SAIGE [facility] Oxygen Delivery Device Not entered [facility] Nucleated red blood cell per centageOrdered By: Khang Osuna on 02-27-2025 Nucleated RBC/100 WBC (Bld) [Ratio] 0 % 0-5 [facility] Osmolality urOrdered By: Francisco Mike on 02-27-2025 Osmolality (U) [Osmolality] 303 mOsm/KG >50 [facility] Comment on above: Normal Urine Referen ce Ranges Random: 50 - 1200 mOsm/kg H20 depending on fluid intake Random: >850 mOsm/kg after 12 hour fluid restriction 24 hour: ~300 - 900 mOsm/kg H2O Osmolality, Serumon 02-28-20 25 OSMOLALITY,SER 255 mOsm/KG Low 280-301 [facility] Comment on above: Performed By: #### L 501.9300, L500.2500 ####[facility] [address] [place], [address] Osmolality, Urineon 02-28-20 25 OSMOLALITY,UR 303 mOsm/KG Normal [facility] Comment on above: Result Comment: Norm al Urine Reference Ranges Random: 50 - 1200 mOsm/kg H20 depending on fluid intake Random: >850 mOsm/kg after 12 hour fluid restriction 24 hour: 300 - 900 mOsm/kg H2O Performed By: #### L 502.0715, L501.7400, L500.9400 ####[facility] [address] [place], [address] Platelet countOrdered By: Guille Osuna on 02-27-2025 Platelets (Bld) [#/Vol] 193 10*3/uL 150-450 [facility] Potassium measurement (mass/ volume)Ordered By: Khang Osuna on 02-27-2025 Potassium (Unsp spec) [Mass/Vol] 3.0 mmol/L Low 3.3-5.1 [facility] Protein Test strip Ql (U)Ord ered By: Khang Osuna on 02-27-2025 Protein Ql (U) 15 mg/dl High Negative [facility] Prothrombin Time w/INRon INR Coag (PPP) [Relative time] 2.5 {INR} Normal [facility] Comment on above: Performed By: #### L 500.4050, L300.3900, L501.6901 ####[facility] [id number] [place], [address] PT Coag (PPP) [Time] 27.7 s High 11.7-14.9 [facility] Comment on above: Performed By: #### L 500.4050, L300.3900, L501.6901 ####[facility] [address] [place], [address] Prothrombin timeOrdered By: Khang Osuna on 02-27-2025 PT Coag (PPP) [Time] 27.7 s High 11.7-14.9 [facility] RBC Auto (Bld) [#/Vol]Ordere d By: Khang Osuna on 02-27-2025 RBC (Bld) [#/Vol] 3.77 10*6/uL Low 4.6-6.2 [facility] Serum creatinine measurement (mass/volume)Ordered By: Khang Osuna on 02-27-2025 Creatinine [Mass/Vol] 0.81 mg/dL 0.70-1.20 [facility] Serum globulin measurementOr dered By: Khang Osuna on 02-27-2025 Globulin (S) [Mass/Vol] 2.3 g/dL 2.2-4.2 [facility] Serum glucose measurement (m ass/volume)Ordered By: Khang Osuna on 02-27-2025 Glucose [Mass/Vol] 100 mg/dL High 70-99 [facility] Serum or plasma alanine hernandez otransferase (ALT) measurementOrdered By: Khang Osuna on 02-27-2025 ALT [Catalytic activity/Vol] 24 U/L <47 [facility] Serum or plasma albumin mickie urement (mass/volume)Ordered By: Khang Osuna on 02-27-2025 Albumin [Mass/Vol] 3.8 g/dL 3.4-4.8 [facility] Serum or plasma albumin/glob ulin mass ratioOrdered By: Khang Osuna on 02-27-2025 Albumin/Globulin [Mass ratio] 1.6 {ratio} 0.9-2.4 [facility] Serum or plasma alkaline anna sphatase measurementOrdered By: Khang Osuna on 02-27-2025 ALP [Catalytic activity/Vol] 113 U/L 40-129 [facility] Serum or plasma calcium mickie urement (mass/volume)Ordered By: Khang Osuna on 02-27-2025 Calcium [Mass/Vol] 8.0 mg/dL 7.6-11.0 [facility] Serum or plasma urea nitroge n measurement (mass/volume)Ordered By: Khang Osuna on 02-27-2025 Urea nitrogen [Mass/Vol] 15 mg/dL 4-19 [facility] Sodium levelOrdered By: Tomy Osuna on 02-27-2025 Sodium [Moles/Vol] 121 mmol/L Low 133-145 [facility] Squamous epithelial cells de tection in urine sediment by light microscopyOrdered By: Khang Osuna on 02-27-2025 Epithelial cells.squamous LM Ql (Urine sed) 0 SEEN /hpf 0-5 [facility] Total proteinOrdered By: Kay Osuna on 02-27-2025 Protein [Mass/Vol] 6.1 g/dL 5.9-8.4 [facility] Urea Nitrogen, Urineon 02-27 URINE UREA 285 mg/dL Normal NO RANGE EST. [facility] Comment on above: Performed By: #### L 502.0715, L501.7400, L500.9400 ####[facility] [address] [place], [address] Urinalysis, Completeon 02-27 BACTERIA 0 SEEN Normal None Seen [facility] Comment on above: Order Comment: CLEAN CATCH Performed By: #### L 400.0001 ####[facility] [address] [place], [address] EPI,SQUAMOUS 0 SEEN Normal 0-5 [facility] Comment on above: Order Comment: CLEAN CATCH Performed By: #### L 400.0001 ####[facility] [address] [place], [address] Mucus Ql (Urine sed) 0 SEEN Normal [facility] Comment on above: Order Comment: CLEAN CATCH Performed By: #### L 400.0001 ####[facility] [address] [place], [address] RBC 0 SEEN Normal 0-5 [facility] Comment on above: Order Comment: CLEAN CATCH Performed By: #### L 400.0001 ####[facility] [address] [place], [address] WBC 0 SEEN Normal 0-5 [facility] Comment on above: Order Comment: CLEAN CATCH Performed By: #### L 400.0001 ####[facility] [address] [place], [address] Urine Electrolytes- Randomon 02-27-2025 Chloride,URINE 39 mmol/L Normal Not Establ. [facility] Comment on above: Performed By: #### L 502.0715, L501.7400, L500.9400 ####[facility] [address] [place], [address] Sodium (U) [Moles/Vol] 51 mmol/L Normal Not Establ. [facility] Comment on above: Performed By: #### L 502.0715, L501.7400, L500.9400 ####[facility] [address] [place], [address] UR K 9.3 mmol/L Normal Not Establ. [facility] Comment on above: Performed By: #### L 502.0715, L501.7400, L500.9400 ####[facility] [address] [place], [address] Urine clarityOrdered By: Kay Osuna on 02-27-2025 Clarity (U) Clear Clear [facility] Urine color determinationOrd ered By: Khang Osuna on 02-27-2025 Color (U) Yellow Yellow [facility] Urine glucose detectionOrder ed By: Khang Osuna on 02-27-2025 Glucose Ql (U) Normal mg/dl Normal [facility] Urine leukocyte esterase det ection by dipstickOrdered By: Khang Osuna on 02-27-2025 Leukocyte esterase Test strip Ql (U) Negative Negative [facility] Urine pHOrdered By: Khang Osuna on 02-27-2025 pH (U) 7.0 [pH] 5.0 - 8.0 [facility] Urine potassium measurement (moles/volume)Ordered By: Lisa Mike on 02-27-2025 Potassium (U) [Moles/Vol] 9.3 mmol/L Not Establ. [facility] Urine sediment bacteria coun t by microscopy (number/high power field)Ordered By: Khang Osuna on 02-27-2025 Bacteria LM.HPF (Urine sed) [#/Area] 0 /[HPF] None Seen [facility] Urine sodium measurement (mo les/volume)Ordered By: Lisa Mike on 02-27-2025 Sodium (U) [Moles/Vol] 51 mmol/L Not Establ. [facility] Urine specific gravity measu rementOrdered By: Khang Osuna on 02-27-2025 Specific gravity (U) [Rel density] 1.010 1.002-1.030 [facility] Urine urobilinogen measureme ntOrdered By: Khang Osuna on 02-27-2025 Urobilinogen Ql (U) Normal mg/dl Normal [facility] Venous Blood Gason Blood Gas Type SAIGE Normal [facility] Comment on above: Performed By: #### L 9000.0810 ####[facility] [address] [place], [address] CO2 [Moles/Vol] 22 mmol/L Low 23-33 [facility] Comment on above: Performed By: #### L 9000.0810 ####[facility] [address] [place], [address] HCO3 (Bld) [Moles/Vol] 21 mmol/L Low 22-[address] [facility] Comment on above: Performed By: #### L 9000.0810 ####[facility] [address] [place], [address] O2 Delivery Dev Not entered [facility] Comment on above: Performed By: #### L 9000.0810 ####[facility] [address] [place], [address] SITE Not entered Normal [facility] Comment on above: Performed By: #### L 9000.0810 ####[facility] [address] [place], [address] VBG BE -5 mmol/L Low -1.0-3.5 [facility] Comment on above: Performed By: #### L 9000.0810 ####[facility] [address] [place], [address] VBG pCO2 34.8 mmHg Low 41-51 [facility] Comment on above: Performed By: #### L 9000.0810 ####[facility] [address] [place], [address] VBG pH 7.38 Normal 7.32-7.42 [facility] Comment on above: Performed By: #### L 9000.0810 ####[facility] [address] [place], [address] VBG PO2 55 mmHg High 25-40 [facility] Comment on above: Performed By: #### L 9000.0810 ####[facility] [address] [place], [address] VBG SO2 88 High 50-70 [facility] Comment on above: Performed By: #### L 9000.0810 ####[facility] [address] [place], [place], [address] Venous blood base excess isabel surementOrdered By: Khang Osuna on 02-27-2025 Base excess Calc (BldV) [Moles/Vol] -5 mmol/L Low -1.0-3.5 [facility] Venous blood bicarbonate isabel surementOrdered By: Khang Osuna on 02-27-2025 HCO3 (Bld) [Moles/Vol] 21 mmol/L Low 22-[address] [facility] Venous blood oxygen saturati on measurementOrdered By: Khang Osuna on 02-27-2025 Oxygen saturation in Blood 88 % High 50-70 [facility] Venous blood pH measurementO rdered By: Khang Osuna on 02-27-2025 pH (BldV) 7.38 [pH] 7.32-7.42 [facility] Venous blood partial pressur e of carbon dioxide measurementOrdered By: Khang Osuna on 02-27-2025 CO2 (BldV) [Partial pressure] 34.8 mm[Hg] Low 41-51 [facility] Venous blood partial pressur e of oxygen measurementOrdered By: Khang Osuna on 02-27-2025 Oxygen (BldV) [Partial pressure] 55 mm[Hg] High 25-40 [facility] White blood cell (WBC) count Ordered By: Khang Osuna on 02-27-2025 WBC (Bld) [#/Vol] 8.3 10*3/uL 4.4-11.0 [facility] White blood cell countOrdere d By: Khang Osuna on 02-27-2025 White blood cell count 0 SEEN /hpf 0-5 [facility] Bacteria Bld Culton 02-11-20 Bacteria identified Cx Nom (Bld) CULTURE, BLOOD: No growth [address] [facility] Comment on above: Performed By: #### 6 00-7 #### [facility] CLIA [id number] [address] [place] [address] [place] Bacteria identified Cx Nom (Bld) CULTURE, BLOOD: No growth [address] [facility] Comment on above: Performed By: #### 6 00-7 #### [facility] CLIA [id number] [address] [place] [address] [place] Basic metabolic 2000 panelon 02-10-2025 Anion gap [Moles/Vol] 11 mmol/L Normal 8-15 [facility] Comment on above: Order Comment: Speci men Type: BLOOD SPECIMENOrdering Facility: [facility] Address: [address] [place] [address] Performed By: #### O BDX #### [facility] CLIA [id number] [address] [place] [address] [place] Calcium [Mass/Vol] 8.8 mg/dL Normal 8.5-10.2 [facility] Comment on above: Order Comment: Speci men Type: BLOOD SPECIMENOrdering Facility: [facility] Address: [address] [place] [address] Performed By: #### O BDX #### [facility] CLIA [id number] [address] [place] [address] [place] Chloride [Moles/Vol] 106 mmol/L Normal 98-107 [facility] Comment on above: Order Comment: Speci men Type: BLOOD SPECIMENOrdering Facility: [facility] Address: [address] [place] [address] Performed By: #### O BDX #### [facility] CLIA [id number] [address] [place] [address] [place] CO2 [Moles/Vol] 24 mmol/L Normal 22-30 [facility] Comment on above: Order Comment: Elijahi men Type: BLOOD SPECIMENOrdering Facility: [facility] Address: [address] [place] [address] Performed By: #### O BDX #### [facility] CLIA [id number] [address] [place] [address] [place] Creatinine [Mass/Vol] 1.06 mg/dL Normal 0.73-1.22 [facility] Comment on above: Order Comment: Jordan men Type: BLOOD SPECIMENOrdering Facility: [facility] Address: [address] [place] [address] Performed By: #### O BDX #### [facility] CLIA [id number] [address] [place] Creatinine and Glomerular filtration rate.predicted panel (S/P/Bld) 75 mL/min/1.73m??? Normal >=60 [facility] Comment on above: Order Comment: Jordan arteaga Type: BLOOD SPECIMENOrdering Facility: [facility] Address: [address] [place] [address] Result Comment: Jazmin mated Glomerular Filtration Rate (eGFR) is calculated using the 2020 CKD-EPI creatinine equation. This equation utilizes serum creatinine, sex, and age as parameters. The creatinine assay has traceable calibration to isotope dilution-mass spectrometry. Refer to KDIGO guidelines for clinical interpretation. In patients with unstable renal function, e.g. those with acute kidney injury, the eGFR may not accurately reflect actual GFR. Performed By: #### O BDX #### [facility] CLIA [id number] [address] [place] [address] [place] Glucose [Mass/Vol] 102 mg/dL High 74-99 [facility] Comment on above: Order Comment: Elijahi men Type: BLOOD SPECIMENOrdering Facility: [facility] Address: [address] [place] [address] Result Comment: The [place] Diabetes Association (ADA) provides guidance for cutoff values for fasting glucose and random glucose. The ADA defines fasting as no caloric intake for at least 8 hours. Fasting plasma glucose results between 100 to 125 mg/dL indicate increased risk for diabetes (prediabetes). Fasting plasma glucose results greater than or equal to 126 mg/dL meet the criteria for diagnosis of diabetes. In the absence of unequivocal hyperglycemia, results should be confirmed by repeat testing. In a patient with classic symptoms of hyperglycemia or hyperglycemic crisis, random plasma glucose results greater than or equal to 200 mg/dL meet the criteria for diagnosis of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 [facility] ALP [Catalytic activity/Vol] 136 U/L High 38 - 113 U/L [facility] ALT [Catalytic activity/Vol] 24 U/L 10 - 54 U/L [facility] Anion gap [Moles/Vol] 10 mmol/L 8 - 15 mmol/L [facility] AST [Catalytic activity/Vol] 22 U/L 14 - 40 U/L [facility] Bilirubin [Mass/Vol] 0.3 mg/dL 0.2 - 1 .3 mg/dL [facility] Calcium [Mass/Vol] 9.3 mg/dL 8.5 - 10. 2 mg/dL [facility] Chloride [Moles/Vol] 109 mmol/L High 98 - 10 7 mmol/L [facility] CO2 [Moles/Vol] 22 mmol/L 22 - 30 mmol/L [facility] Creatinine [Mass/Vol] 0.94 mg/dL 0.73 - 1.22 mg/dL [facility] GFR/1.73 sq M.predicted among non-blacks MDRD (S/P/Bld) [Vol rate/Area] 87 mL/min/{1.73_m2} - PINF [facility] Comment on above: Estimated Glomerular Filtration Rate (eGFR) is calculated using the 2020 CKD-EPI creatinine equation. This equation utilizes serum creatinine, sex, and age as parameters. The creatinine assay has traceable calibration to isotope dilution-mass spectrometry. Refer to KDIGO guidelines for clinical interpretation. In patients with unstable renal function, e.g. those with acute kidney injury, the eGFR may not accurately reflect actual GFR. Glucose [Mass/Vol] 101 mg/dL High 74 - 99 mg/dL [facility] Comment on above: The [place] Diabete s Association (ADA) provides guidance for cutoff values for fasting glucose and random glucose. The ADA defines fasting as no caloric intake for at least 8 hours. Fasting plasma glucose results between 100 to 125 mg/dL indicate increased risk for diabetes (prediabetes). Fasting plasma glucose results greater than or equal to 126 mg/dL meet the criteria for diagnosis of diabetes. In the absence of unequivocal hyperglycemia, results should be confirmed by repeat testing. In a patient with classic symptoms of hyperglycemia or hyperglycemic crisis, random plasma glucose results greater than or equal to 200 mg/dL meet the criteria for diagnosis of diabetes. Reference: Standards of Medical Care in Diabetes 2016, [place] Diabetes Association. Diabetes Care. 2016.39(Suppl 1). Interpretation and review of laboratory results Abnormal [facility] Potassium [Moles/Vol] 4.2 mmol/L 3.7 - 5.1 mmol/L [facility] Protein [Mass/Vol] 6.8 g/dL 6.3 - 8.0 g/dL [facility] Sodium [Moles/Vol] 141 mmol/L 136 - 144 mmol/L [facility] Urea nitrogen [Mass/Vol] 19 mg/dL 9 - 24 mg/dL [facility] HbA1c (Bld)on 10-21-2024 Average glucose Estimated from glycated hemoglobin (Bld) [Mass/Vol] 114 mg/dL [facility] Comment on above: eAG: (Estimated aver age glucose) is a calculated value from HgbA1c and is rental representative of the average blood glucose level in the last 2-3 month period. HbA1c (Bld) [Mass fraction] 5.6 % 4.3 - 5.6 % [facility] Comment on above: [place] Diabetes As sociation guidelines indicate that patients with HgbA1c in the range 5.7-6.4% are at increased risk for development of diabetes, and intervention by lifestyle modification may be beneficial. HgbA1c greater or equal to 6.5% is considered diagnostic of diabetes. [facility] No Panel Informationon 10-21 [facility] Interpretation and review of laboratory results Normal [facility] PROLACTINon 10-21-2024 Prolactin [Mass/Vol] 12.6 ng/mL 4.1 - 2 5.1 ng/mL [facility] Comment on above: Prolactin test is pe rformed using the [employer] Electrochemiluminescence Immunoassay method. Results obtained with different methods or kits cannot be used interchangeably. PT panel Coag (PPP)on 2024 INR Coag (PPP) [Relative time] 2.3 {INR} High 0.9 - 1.3 [facility] Comment on above: Vitamin K Antagonist (VKA) Therapeutic Range: INR 2 to 3 (Target INR of 2.5) Note: For patients treated with VKA drugs, such as warfarin, the [place] [employer] 2012 Guideline recommends a therapeutic INR range of 2 to 3 (target INR of 2.5). This recommendation includes high-risk patients with antiphospholipid syndrome with previous arterial or venous thromboembolism, current-generation mechanical or bioprosthetic aortic heart valve replacement. Note: Patients with mechanical aortic valve replacement and additional risk factors for thromboembolic events (atrial fibrillation, previous thromboembolism, LV dysfunction, hypercoagulable conditions) or an older generation mechanical AVR (i.e., ball in-Cage) or any mechanical MVR should have a INR therapeutic range of 2.5 to 3.5 (target INR of 3). Danielle GH, et al. Chest 2012, 141:7S-47S Alessandro RA, et al. [facility] 2017, 70: 252-289 Interpretation and review of laboratory results Abnormal [facility] PT Coag (PPP) [Time] 23.[address] [facility] T4 FREE/FREE THYROXINEon Free T4 [Mass/Vol] 0.9 ng/dL 0.9 - 1.7 ng/dL [facility] THYROID STIMULATING HORMONEo n 10-21-2024 TSH Qn 4.54 m[IU]/L High [facility] TSH Qnon 10-21-2024 Interpretation and review of laboratory results Abnormal [facility] EGD Study observation Narrat iveon 09-30-2024 [facility] Gastrointestinal Endoscopy Patient Name: Eder Breen Procedure Date: 09/30/2024 12:22 PM Date of : 1955 Admit Type: Outpatient Age: 69 Gender: Male Note Status: Finalized Procedure: Colonoscopy Indications: Clinically significant diarrhea of unexplained origin Providers: Marjan Tariq MD Patient Profile: Refer to note in patient chart for documentation of history and physical. Last Colonoscopy: 2020. Referring Physician: Bere Hays (Referring MD) Medicines: Midazolam 1 mg IV, Fentanyl 50 micrograms IV, See the other procedure note for documentation of the administered medications Complications: No immediate complications. Requesting Provider: Procedure: Pre-Anesthesia Assessment: - Prior to the procedure, a History and Physical was performed, and patient medications and allergies were reviewed. The patient is competent. The risks and benefits of the procedure and the sedation options and risks were discussed with the patient. All questions were answered and informed consent was obtained. Patient identification and proposed procedure were verified by the physician in the pre-procedure area. Mental Status Examination: alert and oriented. Airway Examination: normal oropharyngeal airway and neck mobility. Respiratory Examination: clear to auscultation. CV Examination: normal. Prophylactic Antibiotics: The patient does not require prophylactic antibiotics. Prior Anticoagulants: The patient has taken no anticoagulant or antiplatelet agents. ASA Grade Assessment: III - A patient with severe systemic disease. After reviewing the risks and benefits, the patient was deemed in satisfactory condition to undergo the procedure. The anesthesia plan was to use moderate sedation / analgesia (conscious sedation). Immediately prior to administration of medications, the patient was re-assessed for adequacy to receive sedatives. The heart rate, respiratory rate, oxygen saturations, blood pressure, adequacy of pulmonary ventilation, and response to care were monitored throughout the procedure. The physical status of the patient was re-assessed after the procedure. After I obtained informed consent, the scope was passed under direct vision. Throughout the procedure, the patient's blood pressure, pulse, and oxygen saturations were monitored continuously. The Colonoscope was introduced through the anus and advanced to the cecum, identified by the appendiceal orifice, ileocecal valve and palpation. The colonoscopy was performed without difficulty. The patient tolerated the procedure well. The quality of the bowel preparation was adequate to identify polyps greater than 15-20 mm in size - this is primarily in the right and proximal transverse colon. The remainder of the colon cleansing preparation was adequate to identify lesions 5mm and greater. The appendiceal orifice and the rectum were photographed. Moderate Sedation: The administration of moderate sedation was initiated at 12:30. Moderate (conscious) sedation was personally administered by the endoscopist. The following parameters were monitored: oxygen saturation, heart rate, blood pressure, respiratory rate, EKG, adequacy of pulmonary ventilation, and response to care. See the other procedure note for documentation of moderate sedation with intraservice time. Findings: The perianal and digital rectal examinations were normal. Non-bleeding external and internal hemorrhoids were found. Biopsies for histology were taken with a cold forceps from the entire colon for evaluation of microscopic colitis. Estimated blood loss was minimal. Impression: - Non-bleeding external and internal he (more content not included)... PR[facility]ATION [facility] Flexible sigmoidoscopy study on 09-30-2024 [facility] Gastrointestinal Endoscopy Patient Name: Eder Breen Procedure Date: 09/30/2024 12:20 PM Date of : 1955 Admit Type: Outpatient Age: 69 Gender: Male Note Status: Finalized Procedure: Upper GI endoscopy Indications: Heartburn Providers: Marjan Tariq MD Patient Profile: Refer to note in patient chart for documentation of history and physical. Referring Physician: Bere Hays (Referring MD) Medicines: Midazolam 3 mg IV, Fentanyl 50 micrograms IV, Diphenhydramine 25 mg IV, Benzocaine spray, See the other procedure note for documentation of the administered medications Complications: No immediate complications. Requesting Provider: Procedure: Pre-Anesthesia Assessment: - Prior to the procedure, a History and Physical was performed, and patient medications and allergies were reviewed. The patient is competent. The risks and benefits of the procedure and the sedation options and risks were discussed with the patient. All questions were answered and informed consent was obtained. Patient identification and proposed procedure were verified by the physician in the pre-procedure area. Mental Status Examination: alert and oriented. Airway Examination: normal oropharyngeal airway and neck mobility. Respiratory Examination: clear to auscultation. CV Examination: normal. Prophylactic Antibiotics: The patient does not require prophylactic antibiotics. Prior Anticoagulants: The patient has taken no anticoagulant or antiplatelet agents. ASA Grade Assessment: III - A patient with severe systemic disease. After reviewing the risks and benefits, the patient was deemed in satisfactory condition to undergo the procedure. The anesthesia plan was to use moderate sedation / analgesia (conscious sedation). Immediately prior to administration of medications, the patient was re-assessed for adequacy to receive sedatives. The heart rate, respiratory rate, oxygen saturations, blood pressure, adequacy of pulmonary ventilation, and response to care were monitored throughout the procedure. The physical status of the patient was re-assessed after the procedure. After obtaining informed consent, the endoscope was passed under direct vision. Throughout the procedure, the patient's blood pressure, pulse, and oxygen saturations were monitored continuously. The Endosonoscope was introduced through the mouth, and advanced to the second part of duodenum. The upper GI endoscopy was accomplished without difficulty. The patient tolerated the procedure well. Moderate Sedation: The administration of moderate sedation was initiated at 12:30. Moderate (conscious) sedation was personally administered by the endoscopist. The following parameters were monitored: oxygen saturation, heart rate, blood pressure, respiratory rate, EKG, adequacy of pulmonary ventilation, and response to care. See the other procedure note for documentation of moderate sedation with intraservice time. Findings: The first portion of the duodenum and second portion of the duodenum were normal. Biopsies for histology were taken with a cold forceps for evaluation of celiac disease. Verification of patient identification for the specimen was done by the nurse. Estimated blood loss was minimal. Localized moderately erythematous mucosa with stigmata of recent bleeding was found in the gastric antrum. Biopsies were taken with a cold forceps for Helicobacter pylori testing. Verification of patient identification for the specimen was done by the nurse. Estimated blood loss was minimal. A small hiatal hernia was present. Biopsies were taken with a cold forceps for histology,of GE junction. Verification of patient identification for the specimen was done by the nurse. Estimated blood loss was minimal. Impression: - Normal first portio (more content not included)... [facility]ATION [facility] No Panel Informationon 09-30 Radiology Study observation (narrative) [facility] Liver and Biliary ducts a nd Gallbladder Viewson 08-15-2024 IMPRESSION: 1. Non-visualized gallbladder during 2 hours of imaging. Findings are nonspecific and may be due to chronic cholecystitis or biliary dyskinesia. 2. Duodenogastric reflux. 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: PSCB Transcribe Date/Time: Aug 15 2024 12:00P Dictated by : DANIEL DELEON MD This examination was interpreted and the report reviewed and electronically signed by: DANIEL DELEON MD on Aug 15 2024 12:07PM [facility] DIVISION OF RADIOLOGY * * *Final Report* * * DATE OF EXAM: Aug 15 2024 11:57AM [facility] 0022 - [place] HEPATOBILIARY WO RX / PROCEDURE REASON: multiple diagnoses * * * * Physician Interpretation * * * * EXAM: HEPATOBILIARY SCAN HISTORY: Calculus of gallbladder without cholecystitis without obstruction Nausea Frequent bowel movements Abdominal fullness TECHNIQUE: 5.2 mCi Tc-99m Choletec administered IV followed by 60 minutes of dynamic abdominal imaging. Delayed imaging was also performed. CORRELATION: Ultrasound abdomen of 07/28/2024 Hepatobiliary scan of 07/01/2021 RESULTS: Liver: Prompt, homogeneous uptake with activity in the major bile ducts. Gallbladder: Non-visualized gallbladder during 2 hours of dynamic imaging. Relative washout of tracer activity from the hepatobiliary system at the 2 hour time point, therefore no further imaging was obtained. CBD: Proximal small bowel activity within 60 minutes, indicating patency. Other: Duodenal-gastric reflux present. DIVISION OF RADIOLOGY Provider, [facility] Giovana Lucama - 08/15/2024 * * *Final Report* * * DATE OF EXAM: Aug 15 2024 11:57AM [facility] 0022 - [place] HEPATOBILIARY WO RX / PROCEDURE REASON: multiple diagnoses * * * * Physician Interpretation * * * * EXAM: HEPATOBILIARY SCAN HISTORY: Calculus of gallbladder without cholecystitis without obstruction Nausea Frequent bowel movements Abdominal fullness TECHNIQUE: 5.2 mCi Tc-99m Choletec administered IV followed by 60 minutes of dynamic abdominal imaging. Delayed imaging was also performed. CORRELATION: Ultrasound abdomen of 07/28/2024 Hepatobiliary scan of 07/01/2021 RESULTS: Liver: Prompt, homogeneous uptake with activity in the major bile ducts. Gallbladder: Non-visualized gallbladder during 2 hours of dynamic imaging. Relative washout of tracer activity from the hepatobiliary system at the 2 hour time point, therefore no further imaging was obtained. CBD: Proximal small bowel activity within 60 minutes, indicating patency. Other: Duodenal-gastric reflux present. IMPRESSION IMPRESSION: 1. Non-visualized gallbladder during 2 hours of imaging. Findings are nonspecific and may be due to chronic cholecystitis or biliary dyskinesia. 2. Duodenogastric reflux. 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: GEORGES Transcribe Date/Time: Aug 15 2024 12:00P Dictated by : DANIEL DELEON MD This examination was interpreted and the report reviewed and electronically signed by: DANIEL DELEON MD on Aug 15 2024 12:07PM EST [facility] Radiology Study observation (narrative) [facility] [place] Liver and Biliary ducts a nd Gallbladder ViewsOrdered By: Ccf Provider on 08-15-2024 [facility] US DVT LOWER BILon US DVT LOWER ANGEL LUIS * * *Final Report* * * DATE OF EXAM: Jun 11 2024 5:46PM [facility] 1005 - US DVT LOWER ANGEL LUIS / PROCEDURE REASON: multiple diagnoses * * * * Physician Interpretation * * * * EXAMINATION: RIGHT AND LEFT LOWER EXTREMITY DEEP VENOUS ULTRASOUND WITH DOPPLER IMAGING CLINICAL HISTORY: Bilateral leg swelling. Cellulitis. TECHNIQUE: Grayscale with compression maneuvers, color Doppler and spectral Doppler imaging of the right and left proximal deep veins was performed. Grayscale with compression maneuvers of the right and left peroneal and posterior tibial veins was performed. The right and left great and small saphenous veins were evaluated at their insertion to the deep system. Images were obtained and stored in a permanent archive. MQ: USLEB_1 COMPARISON: None RESULT: RIGHT LOWER EXTREMITY PROXIMAL DEEP VEINS Distal External Iliac, Common Femoral and Proximal Profunda Veins: Compression: Normal Doppler: Normal, spontaneous respirophasic flow. Normal response to augmentation. Femoral vein: Compression: Normal Doppler: Normal, spontaneous respirophasic flow. Normal response to augmentation. Popliteal vein: Compression: Normal Doppler: Normal, spontaneous respirophasic flow. Normal response to augmentation. CALF DEEP VEINS Peroneal veins: Limited visualization. Posterior tibial veins: Limited visualization. Gastrocnemius and Soleal veins: Not imaged. SUPERFICIAL VEINS Great saphenous: Patent and compressible at insertion into common femoral vein; not otherwise assessed. Small Saphenous: Not visualized. LEFT LOWER EXTREMITY PROXIMAL DEEP VEINS Distal External Iliac, Common Femoral and Proximal Profunda Veins: Compression: Normal Doppler: Normal, spontaneous respirophasic flow. Normal response to augmentation. Femoral vein: Compression: Normal Doppler: Normal, spontaneous respirophasic flow. Normal response to augmentation. Popliteal vein: Compression: Normal Doppler: Normal, spontaneous respirophasic flow. Normal response to augmentation. CALF DEEP VEINS Peroneal veins: Limited visualization. Posterior tibial veins: Limited visualization. Gastrocnemius and Soleal veins: Not imaged. SUPERFICIAL VEINS Great saphenous: Patent and compressible at insertion into common femoral vein; not otherwise assessed. Small Saphenous: Not visualized. IMPRESSION: Negative study for proximal DVT in the left and right lower extremities. Suboptimal evaluation to assess for calf DVT in the left and right lower extremities. Negative study for superficial thrombophlebitis in the imaged segments of the left and right lower extremities. 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: GEORGES Transcribe Date/Time: Jun 11 2024 6:22P Dictated by : DHARMESH COLON MD This examination was interpreted and the report reviewed and electronically signed by: DHARMESH COLON MD on Jun 11 2024 6:24PM EST [id number] Normal [facility] US Lower extremity vein - bi lateralon 06-11-2024 IMPRESSION: Negative study for proximal DVT in the left and right lower extremities. Suboptimal evaluation to assess for calf DVT in the left and right lower extremities. Negative study for superficial thrombophlebitis in the imaged segments of the left and right lower extremities. 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: GEORGES Transcribe Date/Time: Jun 11 2024 6:22P Dictated by : DHARMESH COLON MD This examination was interpreted and the report reviewed and electronically signed by: DHARMESH COLON MD on Jun 11 2024 6:24PM EST [facility] * * *Final Report* * * DATE OF EXAM: Jun 11 2024 5:46PM LDU 1005 - US DVT LOWER ANGEL LUIS / PROCEDURE REASON: multiple diagnoses * * * * Physician Interpretation * * * * EXAMINATION: RIGHT AND LEFT LOWER EXTREMITY DEEP VENOUS ULTRASOUND WITH DOPPLER IMAGING CLINICAL HISTORY: Bilateral leg swelling. Cellulitis. TECHNIQUE: Grayscale with compression maneuvers, color Doppler and spectral Doppler imaging of the right and left proximal deep veins was performed. Grayscale with compression maneuvers of the right and left peroneal and posterior tibial veins was performed. The right and left great and small saphenous veins were evaluated at their insertion to the deep system. Images were obtained and stored in a permanent archive. MQ: USLEB_1 COMPARISON: None RESULT: RIGHT LOWER EXTREMITY PROXIMAL DEEP VEINS Distal External Iliac, Common Femoral and Proximal Profunda Veins: Compression: Normal Doppler: Normal, spontaneous respirophasic flow. Normal response to augmentation. Femoral vein: Compression: Normal Doppler: Normal, spontaneous respirophasic flow. Normal response to augmentation. Popliteal vein: Compression: Normal Doppler: Normal, spontaneous respirophasic flow. Normal response to augmentation. CALF DEEP VEINS Peroneal veins: Limited visualization. Posterior tibial veins: Limited visualization. Gastrocnemius and Soleal veins: Not imaged. SUPERFICIAL VEINS Great saphenous: Patent and compressible at insertion into common femoral vein; not otherwise assessed. Small Saphenous: Not visualized. LEFT LOWER EXTREMITY PROXIMAL DEEP VEINS Distal External Iliac, Common Femoral and Proximal Profunda Veins: Compression: Normal Doppler: Normal, spontaneous respirophasic flow. Normal response to augmentation. Femoral vein: Compression: Normal Doppler: Normal, spontaneous respirophasic flow. Normal response to augmentation. Popliteal vein: Compression: Normal Doppler: Normal, spontaneous respirophasic flow. Normal response to augmentation. CALF DEEP VEINS Peroneal veins: Limited visualization. Posterior tibial veins: Limited visualization. Gastrocnemius and Soleal veins: Not imaged. SUPERFICIAL VEINS Great saphenous: Patent and compressible at insertion into common femoral vein; not otherwise assessed. Small Saphenous: Not visualized. [facility] Provider, Shirley Giovana [facility] - 06/11/2024 * * *Final Report* * * DATE OF EXAM: Jun 11 2024 5:46PM LDU 1005 - US DVT LOWER ANGEL LUIS / PROCEDURE REASON: multiple diagnoses * * * * Physician Interpretation * * * * EXAMINATION: RIGHT AND LEFT LOWER EXTREMITY DEEP VENOUS ULTRASOUND WITH DOPPLER IMAGING CLINICAL HISTORY: Bilateral leg swelling. Cellulitis. TECHNIQUE: Grayscale with compression maneuvers, color Doppler and spectral Doppler imaging of the right and left proximal deep veins was performed. Grayscale with compression maneuvers of the right and left peroneal and posterior tibial veins was performed. The right and left great and small saphenous veins were evaluated at their insertion to the deep system. Images were obtained and stored in a permanent archive. MQ: USLEB_1 COMPARISON: None RESULT: RIGHT LOWER EXTREMITY PROXIMAL DEEP VEINS Distal External Iliac, Common Femoral and Proximal Profunda Veins: Compression: Normal Doppler: Normal, spontaneous respirophasic flow. Normal response to augmentation. Femoral vein: Compression: Normal Doppler: Normal, spontaneous respirophasic flow. Normal response to augmentation. Popliteal vein: Compression: Normal Doppler: Normal, spontaneous respirophasic flow. Normal response to augmentation. CALF DEEP VEINS Peroneal veins: Limited visualization. Posterior tibial veins: Limited visualization. Gastrocnemius and Soleal veins: Not imaged. SUPERFICIAL VEINS Great saphenous: Patent and compressible at insertion into common femoral vein; not otherwise assessed. Small Saphenous: Not visualized. LEFT LOWER EXTREMITY PROXIMAL DEEP VEINS Distal External Iliac, Common Femoral and Proximal Profunda Veins: Compression: Normal Doppler: Normal, spontaneous respirophasic flow. Normal response to augmentation. Femoral vein: Compression: Normal Doppler: Normal, spontaneous respirophasic flow. Normal response to augmentation. Popliteal vein: Compression: Normal Doppler: Normal, spontaneous respirophasic flow. Normal response to augmentation. CALF DEEP VEINS Peroneal veins: Limited visualization. Posterior tibial veins: Limited visualization. Gastrocnemius and Soleal veins: Not imaged. SUPERFICIAL VEINS Great saphenous: Patent and compressible at insertion into common femoral vein; not otherwise assessed. Small Saphenous: Not visualized. IMPRESSION IMPRESSION: Negative study for proximal DVT in the left and right lower extremities. Suboptimal evaluation to assess for calf DVT in the left and right lower extremities. Negative study for superficial thrombophlebitis in the imaged segments of the left and right lower extremities. 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: GEORGES Transcribe Date/Time: Jun 11 2024 6:22P Dictated by : DHARMESH COLON MD This examination was interpreted and the report reviewed and electronically signed by: DHARMESH COLON MD on Jun 11 2024 6:24PM EST [facility] Radiology Study observation (narrative) [facility] US Lower extremity vein - bi lateralOrdered By: Ccf Provider on 06-11-2024 [facility] ECHOon 05-05-2024 CONCLUSIONS: - Technically difficult exam due to body habitus. - Exam indication: Cardiac murmur - The left ventricle is normal in size. Left ventricular systolic function is normal. EF = 57 5% (2D biplane) Definity contrast used for endocardial border detection. Indeterminate left ventricular diastolic function. - The right ventricle is normal in size. Right ventricular systolic function is normal. - There are no significant valvular abnormalities. - Exam was compared with the prior CC echocardiographic exam performed on 09/04/2017, no significant change. * * * Final * * * [facility] Ech[facility] Report: Transthoracic Echo [facility] Date of service: 05/05/2024 10:26:12 AM DIRECTOR Ordering physician: PIO MCCLELLAND Indication: Cardiac murmur Technologist: Madeline Martinez [facility] Interpreting physician: Gerardo Chavarria MD PATIENT: Name: MR. EDER BREEN : 1955 Age: 68 years Gender: M Primary rhythm: sinus. Height: 182.90 cm BSA: 2.51 m Weight: 124.29 kg BMI: 37.2 kg/m Heart rate 67 bpm Blood pressure 122/67 mmHg Technically difficult exam due to body habitus. Color Doppler was utilized to interrogate the cardiac valves assessed and spectral Doppler was utilized to determine the flow velocities and pressure gradients reported in this exam. MEASUREMENTS: Value Indexed Normal Max aortic dimension 3.5 cm Ao < 3.8 Left atrial volume 52 ml (biplane A-L) 21 ml/m Onur <= 34 LV ID (diastole) 4.3 cm (2D) 1.70 cm/m LV ID (systole) 2.6 cm (2D) 1.03 cm/m IVS, leaflet tips 1.1 cm (2D) Posterior wall thickness 1.1 cm (2D) Left ventricular mass 158 g (2D) 63 g/m LV stroke volume 68 ml (2D biplane) LV end diastolic volume 120 ml (2D biplane) 47.7 ml/m 34<=EDVi<75 LV end systolic volume 52 ml (2D biplane) 20.6 ml/m Ejection Fraction 57 % (2D biplane) EF > 52 FINDINGS: LEFT VENTRICLE The left ventricle is normal in size. Left ventricular systolic function is normal. Indeterminate left ventricular diastolic function. Mitral annular lateral E/e': 11.1. Mitral annular septal E/e': 13.9. Definity contrast used for endocardial border detection. Wall Motion: All scored segments are normal. RIGHT VENTRICLE The right ventricle is normal in size. Right ventricular systolic function is normal. RV systolic tissue Doppler velocity is 14.0 cm/s. Estimated right ventricular systolic pressure is not reported due to an insufficient tricuspid regurgitation signal. Estimated right atrial pressure is not included as the IVC was not seen. LEFT ATRIUM The left atrial cavity is normal in size. RIGHT ATRIUM Unable to reliably measure RA volume due to technical limitations. MITRAL VALVE The mitral valve leaflets are structurally normal. There is no mitral valve regurgitation. The pressure half time is 61 msec. The peak mitral E/A ratio is 1.45. The average mitral E/e' ratio is 12.5. The mitral flow deceleration time is 211 msec. TRICUSPID VALVE The tricuspid valve leaflets are structurally normal. There is trace (trace - 1+) tricuspid valve regurgitation. AORTIC VALVE The aortic valve cusps are structurally normal. There is no aortic valve regurgitation. The peak gradient is 10 mmHg (peak velocity = 158.9 cm/s). PULMONIC VALVE The pulmonic valve cusps are structurally normal. There is trace pulmonic valve regurgitation. AORTA The visualized aorta is normal in size. Measurements - Mid ascending aorta 3.5 cm. PERICARDIUM There is no pericardial effusion. There is an epicardial fat pad. [facility] LVEF TRANSTHORACIC ECHOon LV Ejection Fraction 57 % [facility] Comment on above: (2D biplane) EF > 52 An LV Ejection Fraction of > 50% is normal No Panel Informationon 05-05 [facility] Discharge Instructionon 03-06 Discharge Instruction Normal [facility] MR/POSTOP.ANEon 03-21-2024 MR/POSTOP.ANE Normal [facility] MR/[id number] 03-21-2024 MR/POSTOPAN2 Normal [facility] Operative Reporton Operative Report Normal [facility] Protime w/INR Fingerstickon 03-21-2024 INR Coag (PPP) [Relative time] 1.7 {INR} Normal [facility] Comment on above: Result Comment: Dupl icate: Please see [id number]:[id number] Critical Value > 4.0 Performed By: #### L 9200.0000 ####[facility] [address] [place], [place], [id number] Result Comment: Crit ical Value > 4.0 Protime [place] 17.9 SEC High 11.7-14.9 [facility] Comment on above: Result Comment: Dupl icate: Please see [id number] Performed By: #### L [id number] ####[facility] [address] [place], [place], [address] Surgery Specimen Level Kristina 03-21-2024 Surgery Specimen Level IV Normal [facility] Comment on above: Performed By: #### P SUIV ####[facility] [address] [place], [place], [address] CBC W Auto Differential pane l (Bld)on 03-11-2024 Basophils (Bld) [#/Vol] [facility] Basophils/100 WBC (Bld) 0.3 % [facility] Differential cell count method Nom (Bld) Auto [facility] Eosinophils (Bld) [#/Vol] 0.04 10*3/uL [facility] Eosinophils/100 WBC (Bld) 0.6 % [facility] Erythrocyte distribution width (RBC) [Ratio] 12.9 % 11.5 - 15.0 % [facility] Hematocrit (Bld) [Volume fraction] 39.0 % 39.0 - 51.0 % [facility] Hemoglobin (Bld) [Mass/Vol] 12.7 g/dL Low 13.0 - 17.0 g/dL [facility] Immature granulocytes (Bld) [#/Vol] [facility] Immature granulocytes/100 WBC (Bld) 0.3 % [facility] Interpretation and review of laboratory results Abnormal [facility] Lymphocytes (Bld) [#/Vol] 1.28 10*3/uL [facility] Lymphocytes/100 WBC (Bld) 19.9 % [facility] MCH (RBC) [Entitic mass] 30.2 pg 26.0 - 34.0 pg [facility] MCHC (RBC) [Mass/Vol] 32.6 g/dL 30.5 - 36.0 g/dL [facility] MCV (RBC) [Entitic vol] 92.6 fL 80.0 - 100.0 fL [facility] Monocytes (Bld) [#/Vol] 0.40 10*3/uL [facility] Monocytes/100 WBC (Bld) 6.2 % [facility] Neutrophils (Bld) [#/Vol] 4.68 10*3/uL [facility] Neutrophils/100 WBC (Bld) 72.7 % [facility] Nucleated RBC (Bld) [#/Vol] [facility] Nucleated RBC/100 WBC (Bld) [Ratio] 0.0 % /100 WBC [facility] Platelet mean volume (Bld) [Entitic vol] 10.1 fL 9.0 - 12.7 fL [facility] Platelets (Bld) [#/Vol] 157 10*3/uL [facility] RBC (Bld) [#/Vol] 4.21 10*6/uL 4.20 - 6.0 0 m/uL [facility] WBC (Bld) [#/Vol] 6.44 10*3/uL [facility] HEMOGLOBIN A1C (POC)on 07-11 HbA1c (Bld) [Mass fraction] 5.5 % 4.2 - 5.6 % [facility] CBC W Auto Differential pane l (Bld)on 07-05-2023 Basophils (Bld) [#/Vol] 0.04 10*3/uL [facility] Basophils/100 WBC (Bld) 0.6 % [facility] Differential cell count method Nom (Bld) Auto [facility] Eosinophils (Bld) [#/Vol] 0.26 10*3/uL [facility] Eosinophils/100 WBC (Bld) 3.6 % [facility] Erythrocyte distribution width (RBC) [Ratio] 14.9 % 11.5 - 15.0 % [facility] Hematocrit (Bld) [Volume fraction] 40.3 % 39.0 - 51.0 % [facility] Hemoglobin (Bld) [Mass/Vol] 13.1 g/dL 13.0 - 17.0 g/dL [facility] Immature granulocytes (Bld) [#/Vol] NINF [facility] Immature granulocytes/100 WBC (Bld) 0.3 % [facility] Lymphocytes (Bld) [#/Vol] 1.49 10*3/uL [facility] Lymphocytes/100 WBC (Bld) 20.9 % [facility] MCH (RBC) [Entitic mass] 31.0 pg 26.0 - 34.0 pg [facility] MCHC (RBC) [Mass/Vol] 32.5 g/dL 30.5 - 36.0 g/dL [facility] MCV (RBC) [Entitic vol] 95.5 fL 80.0 - 100.0 fL [facility] Monocytes (Bld) [#/Vol] 0.68 10*3/uL [facility] Monocytes/100 WBC (Bld) 9.5 % [facility] Neutrophils (Bld) [#/Vol] 4.64 10*3/uL [facility] Neutrophils/100 WBC (Bld) 65.1 % [facility] Nucleated RBC (Bld) [#/Vol] [facility] Nucleated RBC/100 WBC (Bld) [Ratio] 0.0 % /100 WBC [facility] Platelet mean volume (Bld) [Entitic vol] 9.7 fL 9.0 - 12.7 fL [facility] Platelets (Bld) [#/Vol] 160 10*3/uL [facility] RBC (Bld) [#/Vol] 4.22 10*6/uL 4.20 - 6.0 0 m/uL [facility] WBC (Bld) [#/Vol] 7.13 10*3/uL [facility] Comprehensive metabolic 2000 panelon 07-05-2023 Albumin [Mass/Vol] 3.9 g/dL 3.9 - 4.9 g/dL [facility] ALP [Catalytic activity/Vol] 121 U/L High 38 - 113 U/L [facility] ALT [Catalytic activity/Vol] 25 U/L 10 - 54 U/L [facility] Anion gap [Moles/Vol] 7 mmol/L Low 9 - 18 mmol/L [facility] AST [Catalytic activity/Vol] 19 U/L 14 - 40 U/L [facility] Bilirubin [Mass/Vol] 0.2 mg/dL 0.2 - 1 .3 mg/dL [facility] Calcium [Mass/Vol] 8.6 mg/dL 8.5 - 10. 2 mg/dL [facility] Chloride [Moles/Vol] 109 mmol/L High 97 - 10 5 mmol/L [facility] CO2 [Moles/Vol] 22 mmol/L 22 - 30 mmol/L [facility] Creatinine [Mass/Vol] 0.87 mg/dL 0.73 - 1.22 mg/dL [facility] GFR/1.73 sq M.predicted among non-blacks MDRD (S/P/Bld) [Vol rate/Area] 93 mL/min/{1.73_m2} - PINF [facility] Comment on above: Estimated Glomerular Filtration Rate (eGFR) is calculated using the 2020 CKD-EPI creatinine equation. This equation utilizes serum creatinine, sex, and age as parameters. The creatinine assay has traceable calibration to isotope dilution-mass spectrometry. Refer to KDIGO guidelines for clinical interpretation. In patients with unstable renal function, e.g. those with acute kidney injury, the eGFR may not accurately reflect actual GFR. Glucose [Mass/Vol] 70 mg/dL Low 74 - 99 mg/dL [facility] Comment on above: The [place] Diabete s Association (ADA) provides guidance for cutoff values for fasting glucose and random glucose. The ADA defines fasting as no caloric intake for at least 8 hours. Fasting plasma glucose results between 100 to 125 mg/dL indicate increased risk for diabetes (prediabetes). Fasting plasma glucose results greater than or equal to 126 mg/dL meet the criteria for diagnosis of diabetes. In the absence of unequivocal hyperglycemia, results should be confirmed by repeat testing. In a patient with classic symptoms of hyperglycemia or hyperglycemic crisis, random plasma glucose results greater than or equal to 200 mg/dL meet the criteria for diagnosis of diabetes. Reference: Standards of Medical Care in Diabetes 2016, [place] Diabetes Association. Diabetes Care. 2016.39(Suppl 1). Interpretation and review of laboratory results Abnormal [facility] Potassium [Moles/Vol] 3.8 mmol/L 3.7 - 5.1 mmol/L [facility] Protein [Mass/Vol] 6.1 g/dL Low 6.3 - 8.0 g/dL [facility] Sodium [Moles/Vol] 138 mmol/L 136 - 144 mmol/L [facility] Urea nitrogen [Mass/Vol] 15 mg/dL 9 - 24 mg/dL [facility] No Panel Informationon 07-05 Interpretation and review of laboratory results Normal [facility] T3 FREE BLDon 07-05-2023 Free T3 [Mass/Vol] 3.0 pg/mL 2.3 - 4.1 pg/mL [facility] T4 FREE/FREE THYROXon 2022 Free T4 [Mass/Vol] 1.3 ng/dL 0.9 - 1.7 ng/dL [facility] TSH BLDon 07-05-2023 TSH Qn 1.800 m[IU]/L [facility] PT panel Coag (PPP)on 2022 INR Coag (PPP) [Relative time] 1.2 {INR} 0.9 - 1.3 [facility] PT Coag (PPP) [Time] 11.9 s 9.7 - 1 3.0 sec [facility] No Panel Informationon 02-13 Radiology Study observation (narrative) [facility] XR Ankle - right AP and Late ral and obliqueon 02-13-2023 IMPRESSION: Findings as described above. 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: PSCB Transcribe Date/Time: Feb 13 2023 12:55P Dictated by : LASHANDA CANAS MD This examination was interpreted and the report reviewed and electronically signed by: LASHANDA CANAS MD on Feb 13 2023 1:01PM [facility] DIVISION OF RADIOLOGY * * *Final Report* * * DATE OF EXAM: Feb 13 2023 12:14PM WOX 5297 - XR ANKLE 3V AP/LAT/OBL RT / PROCEDURE REASON: Pain * * * * Physician Interpretation * * * * EXAM TITLE: XR ANKLE 3V AP/LAT/OBL RT EXAM DATE/TIME: 02/13/2023 12:14 PM COMPARISON: None. CLINICAL INDICATION/HISTORY: Pain. TECHNIQUE: AP, mortise and lateral views of the right ankle are presented. FINDINGS: No acute fractures or subluxations are noted. Mild degenerative changes noted. Achilles/calcaneal enthesopathy is demonstrated. The mortise joint spaces are well preserved. There is no ankle joint effusion. The mineralization of the bones is normal. There is no significant soft tissue swelling. DIVISION OF RADIOLOGY Provider, Shirley Giovana [facility] - 02/13/2023 * * *Final Report* * * DATE OF EXAM: Feb 13 2023 12:14PM WOX 5297 - XR ANKLE 3V AP/LAT/OBL RT / PROCEDURE REASON: Pain * * * * Physician Interpretation * * * * EXAM TITLE: XR ANKLE 3V AP/LAT/OBL RT EXAM DATE/TIME: 02/13/2023 12:14 PM COMPARISON: None. CLINICAL INDICATION/HISTORY: Pain. TECHNIQUE: AP, mortise and lateral views of the right ankle are presented. FINDINGS: No acute fractures or subluxations are noted. Mild degenerative changes noted. Achilles/calcaneal enthesopathy is demonstrated. The mortise joint spaces are well preserved. There is no ankle joint effusion. The mineralization of the bones is normal. There is no significant soft tissue swelling. IMPRESSION IMPRESSION: Findings as described above. 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: [facility] Transcribe Date/Time: Feb 13 2023 12:55P Dictated by : LASHANDA CANAS MD This examination was interpreted and the report reviewed and electronically signed by: LASHANDA CANAS MD on Feb 13 2023 1:01PM [facility] XR Knee - right 4 Viewson IMPRESSION: Findings are suggestive of degenerative changes in the right knee. 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: EVY Transcribe Date/Time: Feb 13 2023 1:01P Dictated by : LASHANDA CANAS MD This examination was interpreted and the report reviewed and electronically signed by: LASHANDA CANAS MD on Feb 13 2023 1:16PM [facility] DIVISION OF RADIOLOGY * * *Final Report* * * DATE OF EXAM: Feb 13 2023 12:14PM WOX 5203 - XR KNEE 4V AP/PA BOTH+LAT/GIOVANNI RT / PROCEDURE REASON: Pain * * * * Physician Interpretation * * * * EXAM TITLE: XR KNEE 4V AP/PA BOTH+LAT/GIOVANNI RT EXAM DATE/TIME: 02/13/2023 12:14 PM COMPARISON: None. CLINICAL INDICATION/HISTORY: Knee pain. TECHNIQUE: AP/PA, lateral and sunrise views of the right knee are presented. FINDINGS: No acute fractures or subluxations are noted. Medial compartmental joint space narrowing is demonstrated. There is tricompartmental osteophyte formation. Patellar enthesophyte noted. There is trace joint effusion. The mineralization of the bones is normal. There is no significant soft tissue swelling. DIVISION OF RADIOLOGY Provider, Porter Akhtar [facility] - 02/13/2023 * * *Final Report* * * DATE OF EXAM: Feb 13 2023 12:14PM WOX 5203 - XR KNEE 4V AP/PA BOTH+LAT/GIOVANNI RT / PROCEDURE REASON: Pain * * * * Physician Interpretation * * * * EXAM TITLE: XR KNEE 4V AP/PA BOTH+LAT/GIOVANNI RT EXAM DATE/TIME: 02/13/2023 12:14 PM COMPARISON: None. CLINICAL INDICATION/HISTORY: Knee pain. TECHNIQUE: AP/PA, lateral and sunrise views of the right knee are presented. FINDINGS: No acute fractures or subluxations are noted. Medial compartmental joint space narrowing is demonstrated. There is tricompartmental osteophyte formation. Patellar enthesophyte noted. There is trace joint effusion. The mineralization of the bones is normal. There is no significant soft tissue swelling. IMPRESSION IMPRESSION: Findings are suggestive of degenerative changes in the right knee. 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: [place] Transcribe Date/Time: Feb 13 2023 1:01P Dictated by : LASHANDA CANAS MD This examination was interpreted and the report reviewed and electronically signed by: LASHANDA CANAS MD on Feb 13 2023 1:16PM EST [facility] XR Knee - right 4 ViewsOrder ed By: [facility] Provider on 02-13-2023 [facility] PSA/PROSTSPECAG SCRNon 11-28 Prostate specific Ag [Mass/Vol] 0.04 ng/mL <2.60 ng/mL [facility] CBC W Auto Differential pane l (Bld)on 11-27-2022 Basophils (Bld) [#/Vol] 0.04 10*3/uL <0.11 k/uL [facility] Basophils/100 WBC (Bld) 0.5 % [facility] Differential cell count method Nom (Bld) Auto [facility] Eosinophils (Bld) [#/Vol] 0.29 10*3/uL <0.46 k/uL [facility] Eosinophils/100 WBC (Bld) 3.4 % [facility] Erythrocyte distribution width (RBC) [Ratio] 14.4 % 11.5 - 15.0 % [facility] Hematocrit (Bld) [Volume fraction] 42.8 % 39.0 - 51.0 % [facility] Hemoglobin (Bld) [Mass/Vol] 13.9 g/dL 13.0 - 17.0 g/dL [facility] Immature granulocytes (Bld) [#/Vol] 0.03 10*3/uL <0.10 k/uL [facility] Immature granulocytes/100 WBC (Bld) 0.4 % [facility] Lymphocytes (Bld) [#/Vol] 1.55 10*3/uL 1.00 - 4.00 k/uL [facility] Lymphocytes/100 WBC (Bld) 18.3 % [facility] MCH (RBC) [Entitic mass] 30.2 pg 26.0 - 34.0 pg [facility] MCHC (RBC) [Mass/Vol] 32.5 g/dL 30.5 - 36.0 g/dL [facility] MCV (RBC) [Entitic vol] 92.8 fL 80.0 - 100.0 fL [facility] Monocytes (Bld) [#/Vol] 0.53 10*3/uL <0.87 k/uL [facility] Monocytes/100 WBC (Bld) 6.3 % [facility] Neutrophils (Bld) [#/Vol] 6.01 10*3/uL 1.45 - 7.50 k/uL [facility] Neutrophils/100 WBC (Bld) 71.1 % [facility] Nucleated RBC (Bld) [#/Vol] <0.01 k/uL [facility] Nucleated RBC/100 WBC (Bld) [Ratio] 0.0 /100 WBC [facility] Platelet mean volume (Bld) [Entitic vol] 9.5 fL 9.0 - 12.7 fL [facility] Platelets (Bld) [#/Vol] 171 10*3/uL 150 - 400 k/uL [facility] RBC (Bld) [#/Vol] 4.61 10*6/uL 4.20 - 6.0 0 m/uL [facility] WBC (Bld) [#/Vol] 8.45 10*3/uL 3.70 - 11.00 k/uL [facility] PT panel Coag (PPP)on 2022 INR Coag (PPP) [Relative time] 1.0 {INR} 0.9 - 1.3 [facility] PT Coag (PPP) [Time] 10.5 s 9.7 - 1 3.0 sec [facility] BREATH TEST GLUCOSEon 2022 [facility] Comprehensive metabolic 2000 panelon 05-23-2022 Albumin [Mass/Vol] 4.5 g/dL 3.9 - 4.9 g/dL [facility] ALP [Catalytic activity/Vol] 116 U/L High 38 - 113 U/L [facility] ALT [Catalytic activity/Vol] 19 U/L 10 - 54 U/L [facility] Anion gap [Moles/Vol] 11 mmol/L 9 - 18 mmol/L [facility] AST [Catalytic activity/Vol] 18 U/L 14 - 40 U/L [facility] Bilirubin [Mass/Vol] 0.2 mg/dL 0.2 - 1 .3 mg/dL [facility] Calcium [Mass/Vol] 10.4 mg/dL High 8.5 - 10. 2 mg/dL [facility] Chloride [Moles/Vol] 108 mmol/L High 97 - 10 5 mmol/L [facility] CO2 [Moles/Vol] 23 mmol/L 22 - 30 mmol/L [facility] Creatinine [Mass/Vol] 0.98 mg/dL 0.73 - 1.22 mg/dL [facility] Estimated Glomerular Filtration Rate 84 mL/min/1.73m >=60 mL/min/1.73 m [facility] Glucose [Mass/Vol] 81 mg/dL 74 - 99 mg/dL [facility] Potassium [Moles/Vol] 4.0 mmol/L 3.7 - 5.1 mmol/L [facility] Protein [Mass/Vol] 6.5 g/dL 6.3 - 8.0 g/dL [facility] Sodium [Moles/Vol] 142 mmol/L 136 - 144 mmol/L [facility] Urea nitrogen [Mass/Vol] 15 mg/dL 9 - 24 mg/dL [facility] T3 FREE BLDon 05-23-2022 Free T3 [Mass/Vol] 2.8 pg/mL 2.3 - 4.1 pg/mL [facility] T4 FREE/FREE THYROXon 2021 Free T4 [Mass/Vol] 1.2 ng/dL 0.9 - 1.7 ng/dL [facility] TSH BLDon 05-23-2022 TSH Qn 1.030 m[IU]/L 0.270 - 4.200 mIU/L [facility] VITAMIN B12 BLOODon 05-23-20 Cobalamin (Vitamin B12) [Mass/Vol] 314 pg/mL 232 - 1,245 pg/mL [facility] CBC W Auto Differential pane l (Bld)on 05-22-2022 Basophils (Bld) [#/Vol] 0.03 10*3/uL <0.11 k/uL [facility] Basophils/100 WBC (Bld) 0.4 % [facility] Differential cell count method Nom (Bld) Auto [facility] Eosinophils (Bld) [#/Vol] 0.36 10*3/uL <0.46 k/uL [facility] Eosinophils/100 WBC (Bld) 5.0 % [facility] Erythrocyte distribution width (RBC) [Ratio] 15.0 % 11.5 - 15.0 % [facility] Hematocrit (Bld) [Volume fraction] 40.4 % 39.0 - 51.0 % [facility] Hemoglobin (Bld) [Mass/Vol] 12.7 g/dL Low 13.0 - 17.0 g/dL [facility] Immature granulocytes (Bld) [#/Vol] 0.03 10*3/uL <0.10 k/uL [facility] Immature granulocytes/100 WBC (Bld) 0.4 % [facility] Lymphocytes (Bld) [#/Vol] 1.17 10*3/uL 1.00 - 4.00 k/uL [facility] Lymphocytes/100 WBC (Bld) 16.3 % [facility] MCH (RBC) [Entitic mass] 29.8 pg 26.0 - 34.0 pg [facility] MCHC (RBC) [Mass/Vol] 31.4 g/dL 30.5 - 36.0 g/dL [facility] MCV (RBC) [Entitic vol] 94.8 fL 80.0 - 100.0 fL [facility] Monocytes (Bld) [#/Vol] 0.43 10*3/uL <0.87 k/uL [facility] Monocytes/100 WBC (Bld) 6.0 % [facility] Neutrophils (Bld) [#/Vol] 5.16 10*3/uL 1.45 - 7.50 k/uL [facility] Neutrophils/100 WBC (Bld) 71.9 % [facility] Nucleated RBC (Bld) [#/Vol] <0.01 k/uL [facility] Nucleated RBC/100 WBC (Bld) [Ratio] 0.0 /100 WBC [facility] Platelet mean volume (Bld) [Entitic vol] 10.1 fL 9.0 - 12.7 fL [facility] Platelets (Bld) [#/Vol] 128 10*3/uL Low 150 - 400 k/uL [facility] RBC (Bld) [#/Vol] 4.26 10*6/uL 4.20 - 6.0 0 m/uL [facility] WBC (Bld) [#/Vol] 7.18 10*3/uL 3.70 - 11.00 k/uL [facility] H. pylori IgG IA Qlon 2021 H. pylori IgG, Qualitative Negative Negative [facility] LACOSAMIDEon 11-11-2021 Desmethyllacosamide 0.9 ug/mL <2.6 ug/mL [facility] Lacosamide [Mass/Vol] 11.4 ug/mL 2.2 - 19.8 ug/mL [facility] LAMOTRIGINEon 11-11-2021 lamoTRIgine [Mass/Vol] 5.9 ug/mL 1.0 - 13.0 ug/mL [facility] ZONISAMIDEon 11-11-2021 Zonisamide [Mass/Vol] 20.3 ug/mL 10.0 - 40.0 ug/mL [facility] XR Chest PA and Lateralon Radiology Study observation (narrative) [facility] IMPRESSION: No acute radiographic abnormality. 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: PSC[employer] Transcribe Date/Time: Aug 08 2021 11:13A Dictated by : NASREEN FARLEY DO This examination was interpreted and the report reviewed and electronically signed by: NASREEN FARLEY DO on Aug 08 2021 11:16AM [facility] DIVISION OF RADIOLOGY * * *Final Report* * * DATE OF EXAM: Aug 08 2021 11:09AM WOX 5291 - XR CHEST 2V FRONTAL/LAT / PROCEDURE REASON: Cough * * * * Physician Interpretation * * * * EXAMINATION: CHEST RADIOGRAPH (2 VIEW FRONTAL & LATERAL) CLINICAL HISTORY: Cough MQ: [id number]_6 EXAM DATE/TIME: 08/08/2021 11:09 AM COMPARISON: 12/03/2020 RESULT: Lines, tubes, and devices: Left-sided central line tip projects over the expected region of the superior vena cava. Postsurgical clips are noted projecting over the lower RIGHT neck area. Lungs and pleura: No consolidation. No lung mass. No pleural effusion. No pneumothorax. Cardiomediastinal silhouette: Normal cardiomediastinal silhouette. Bones and soft tissues: Unremarkable. DIVISION OF RADIOLOGY Provider, [facility] - 08/08/2021 * * *Final Report* * * DATE OF EXAM: Aug 08 2021 11:09AM WOX 5291 - XR CHEST 2V FRONTAL/LAT / PROCEDURE REASON: Cough * * * * Physician Interpretation * * * * EXAMINATION: CHEST RADIOGRAPH (2 VIEW FRONTAL & LATERAL) CLINICAL HISTORY: Cough MQ: [id number]_6 EXAM DATE/TIME: 08/08/2021 11:09 AM COMPARISON: 12/03/2020 RESULT: Lines, tubes, and devices: Left-sided central line tip projects over the expected region of the superior vena cava. Postsurgical clips are noted projecting over the lower RIGHT neck area. Lungs and pleura: No consolidation. No lung mass. No pleural effusion. No pneumothorax. Cardiomediastinal silhouette: Normal cardiomediastinal silhouette. Bones and soft tissues: Unremarkable. IMPRESSION IMPRESSION: No acute radiographic abnormality. 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: [facility] Transcribe Date/Time: Aug 08 2021 11:13A Dictated by : NASREEN FARLEY DO This examination was interpreted and the report reviewed and electronically signed by: NASREEN FARLEY DO on Aug 08 2021 11:16AM EST [facility] XR Chest PA and LateralOrder ed By: [facility] Provider on 08-08-2021 [facility] XR Chest PA and Lateralon IMPRESSION: No acute radiographic abnormality. 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: [place] Transcribe Date/Time: Dec 03 2020 11:40A Dictated by : KENYA LU MD This examination was interpreted and the report reviewed and electronically signed by: KENYA LU MD on Dec 03 2020 11:41AM [facility] DIVISION OF RADIOLOGY * * *Final Report* * * DATE OF EXAM: Dec 03 2020 11:39AM WOX 5291 - XR CHEST 2V FRONTAL/LAT / PROCEDURE REASON: Fever, unspecified fever cause * * * * Physician Interpretation * * * * EXAMINATION: CHEST RADIOGRAPH (2 VIEW FRONTAL & LATERAL) CLINICAL HISTORY: Fever, unspecified fever cause MQ: XC2_6 EXAM DATE/TIME: 12/03/2020 11:39 AM COMPARISON: 09/14/2020 and 06/25/2014 RESULT: Lines, tubes, and devices: Left central venous catheter tip over the mid superior vena cava. Unchanged Lungs and pleura: No consolidation. No lung mass. No pleural effusion. No pneumothorax. Cardiomediastinal silhouette: Normal cardiomediastinal silhouette. Bones and soft tissues: Moderate degenerative change and osteophytosis of the dorsal spine DIVISION OF RADIOLOGY Provider, [facility] - 12/03/2020 * * *Final Report* * * DATE OF EXAM: Dec 03 2020 11:39AM WOX 5291 - XR CHEST 2V FRONTAL/LAT / PROCEDURE REASON: Fever, unspecified fever cause * * * * Physician Interpretation * * * * EXAMINATION: CHEST RADIOGRAPH (2 VIEW FRONTAL & LATERAL) CLINICAL HISTORY: Fever, unspecified fever cause MQ: XC2_6 EXAM DATE/TIME: 12/03/2020 11:39 AM COMPARISON: 09/14/2020 and 06/25/2014 RESULT: Lines, tubes, and devices: Left central venous catheter tip over the mid superior vena cava. Unchanged Lungs and pleura: No consolidation. No lung mass. No pleural effusion. No pneumothorax. Cardiomediastinal silhouette: Normal cardiomediastinal silhouette. Bones and soft tissues: Moderate degenerative change and osteophytosis of the dorsal spine IMPRESSION IMPRESSION: No acute radiographic abnormality. 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: [place] Transcribe Date/Time: Dec 03 2020 11:40A Dictated by : KENYA LU MD This examination was interpreted and the report reviewed and electronically signed by: KENYA LU MD on Dec 03 2020 11:41AM EST [facility] Radiology Study observation (narrative) [facility] XR Chest PA and LateralOrder ed By: [facility] Provider on 12-03-2020 [facility] XR Shoulder - right 3 Viewso n 10-25-2020 IMPRESSION: Glenohumeral and acromioclavicular osteoarthrosis. 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: [place] Transcribe Date/Time: Oct 25 2020 11:43A Dictated by : VERNELL MATA MD This examination was interpreted and the report reviewed and electronically signed by: VERNELL MATA MD on Oct 25 2020 11:44AM EST DIVISION OF RADIOLOGY * * *Final Report* * * DATE OF EXAM: Oct 25 2020 11:42AM WOX 5253 - XR SHLDR >/=3V AP/EVER AP/OTHR RT / PROCEDURE REASON: Acute pain of right shoulder * * * * Physician Interpretation * * * * Right shoulder radiographs HISTORY: 65 years old Clinical information: Acute pain of right shoulder pt states pain for 2-3 days poaterior right shoulder no inj TECHNIQUE: Images: XR SHLDR >/=3V AP/EVER AP/OTHR RT Comparison: None. RESULT: Findings: Glenohumeral joint space is maintained. Mild marginal osteophyte formation involving the glenoid. Osteophyte formation subjacent to the acromioclavicular joint. Intra-articular body and superior aspect of the AC joint. No fracture or dislocation. DIVISION OF RADIOLOGY Provider, [facility] - 10/25/2020 * * *Final Report* * * DATE OF EXAM: Oct 25 2020 11:42AM WOX 5253 - XR SHLDR >/=3V AP/EVER AP/OTHR RT / PROCEDURE REASON: Acute pain of right shoulder * * * * Physician Interpretation * * * * Right shoulder radiographs HISTORY: 65 years old Clinical information: Acute pain of right shoulder pt states pain for 2-3 days poaterior right shoulder no inj TECHNIQUE: Images: XR SHLDR >/=3V AP/EVER AP/OTHR RT Comparison: None. RESULT: Findings: Glenohumeral joint space is maintained. Mild marginal osteophyte formation involving the glenoid. Osteophyte formation subjacent to the acromioclavicular joint. Intra-articular body and superior aspect of the AC joint. No fracture or dislocation. IMPRESSION IMPRESSION: Glenohumeral and acromioclavicular osteoarthrosis. 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: GEORGES Transcribe Date/Time: Oct 25 2020 11:43A Dictated by : VERNELL MATA MD This examination was interpreted and the report reviewed and electronically signed by: VERNELL MATA MD on Oct 25 2020 11:44AM EST [facility] Radiology Study observation (narrative) [facility] XR Shoulder - right 3 ViewsO rdered By: [facility] Provider on 10-25-2020 [facility] Vital Signs Date Time Vital Sign Value Performing Clinician Faci arun 03-18-2025 12:53-0400 Body mass index (BMI) [Ratio] 36.32 kg/m2 Paulie Geronimo APRN.PRODUCTION EXPERT Work Phone: [facility] 03-18-2025 12:53-0400 Body weight 121.47 kg Paulie Geronimo APRN.PRODUCTION EXPERT Work Phone: [facility] 03-18-2025 12:53-0400 Diastolic blood pressure 64 mm[Hg] Paulie Bhaktao 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 Work Phone: [facility] 03-18-2025 12:53-0400 Heart rate 71 /min Paulie Geronimo APRN.PRODUCTION EXPERT Work Phone: [facility] 03-18-2025 12:53-0400 Respiratory rate 16 /min Paulie Geronimo APRN.PRODUCTION EXPERT Work Phone: [facility] 03-18-2025 12:53-0400 SaO2% (BldA) [Mass fraction] 92 % Pauliemonserrat Bhaktao 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 Work Phone: [facility] 03-18-2025 12:53-0400 Systolic blood pressure 130 mm[Hg] Paulie Bhaktao 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 Work Phone: [facility] 03-12-2025 11:51-0400 Body temperature 98.4 [degF] Dr. Hari Oneill DO Work Phone: 3(860)940-841269 [place] [address] 03-12-2025 11:51-0400 Diastolic blood pressure 76 mm[Hg] Dr. Hari Oneill DO Work Phone: 6(386)433-573951 [place] [address] 03-12-2025 11:51-0400 Heart rate 86 /min Dr. Hari Oneill DO Work Phone: 9(509)397-991851 [place] [address] 03-12-2025 11:51-0400 Respiratory rate 18 /min Dr. Hari Oneill DO Work Phone: 7(661)557-599351 [place] [address] 03-12-2025 11:51-0400 SaO2% (BldA) [Mass fraction] 99 % Dr. Hari Oneill DO Work Phone: 2(729)899-686151 [place] [address] 03-12-2025 11:51-0400 Systolic blood pressure 104 mm[Hg] Dr. Hari Oneill DO Work Phone: 2(372)134-521651 [place] [address] 03-12-2025 03:53-0400 Body mass index (BMI) [Ratio] 35.8 kg/m2 Dr. Hari Oneill DO Work Phone: 2(101)072-726951 [place] [address] 03-12-2025 03:53-0400 Body weight [address] Hari Oneill DO Work Phone: 8(561)893-379451 [place] [address] 03-11-2025 15:23-0400 Body height 182.[address] Hari Oneill DO Work Phone: 1(620)487-857951 [place] [address] 03-05-2025 15:38-0400 Body temperature 98.1 [degF] Dr. Hari Oneill DO Work Phone: 4(625)998-439851 [place] [address] 03-05-2025 15:38-0400 Diastolic blood pressure 68 mm[Hg] Dr. Hari Oneill DO Work Phone: 0(756)666-907751 [place] [address] 03-05-2025 15:38-0400 Heart rate 71 /min Dr. Hari Oneill DO Work Phone: 4(502)856-688351 [place] [address] 03-05-2025 15:38-0400 Respiratory rate 18 /min Dr. Hari Oneill DO Work Phone: [facility] 03-05-2025 15:38-0400 SaO2% (BldA) [Mass fraction] 100 % Dr. Hari Oneill DO Work Phone: [facility] 03-05-2025 15:38-0400 Systolic blood pressure 150 mm[Hg] Dr. Hari Oneill DO Work Phone: 8(180)985-892551 [place] [address] 03-05-2025 11:42-0400 Body height 182.[address] Hari Oneill DO Work Phone: 6(578)350-789351 [place] [address] 03-05-2025 11:42-0400 Body mass index (BMI) [Ratio] 41 kg/m2 Dr. Hari Oneill DO Work Phone: 0(045)923-328151 [place] [address] 03-05-2025 11:42-0400 Body weight 137.[address] Hari Oneill DO Work Phone: 5(420)106-586369 [place] [address] 03-04-2025 14:01-0400 Body height 182.9 cm Beatriz Moncada MD Work Phone: [facility] 03-04-2025 14:01-0400 Body mass index (BMI) [Ratio] 37.84 kg/m2 Beatriz Moncada MD Work Phone: [facility] 03-04-2025 14:01-0400 Body weight 126.55 kg Beatriz Moncada MD Work Phone: [facility] 03-04-2025 14:01-0400 Diastolic blood pressure 66 mm[Hg] Beatriz Moncada MD Work Phone: [facility] 03-04-2025 14:01-0400 Heart rate 75 /min Beatriz Moncada MD Work Phone: [facility] 03-04-2025 14:01-0400 SaO2% (BldA) [Mass fraction] 99 % Beatriz Moncada MD Work Phone: [facility] 03-04-2025 14:01-0400 Systolic blood pressure 118 mm[Hg] Beatriz Moncada MD Work Phone: 6(608)519-164410 [place] [address] 03-02-2025 13:42-0400 Body temperature 99.1 [degF] Dr. Hari Oneill DO Work Phone: 3(759)345-163851 [place] [address] 03-02-2025 13:42-0400 Diastolic blood pressure 58 mm[Hg] Dr. Hari Oneill DO Work Phone: 7(262)655-711951 [place] [address] 03-02-2025 13:42-0400 Heart rate 90 /min Dr. Hari Oneill DO Work Phone: 1(901)305-629551 [place] [address] 03-02-2025 13:42-0400 Respiratory rate 14 /min Dr. Hrai Oneill DO Work Phone: 5(302)433-422651 [place] [address] 03-02-2025 13:42-0400 SaO2% (BldA) [Mass fraction] 98 % Dr. Hari Oneill DO Work Phone: 9(032)592-743551 [place] [address] 03-02-2025 13:42-0400 Systolic blood pressure 144 mm[Hg] Dr. Hari Oneill DO Work Phone: 1(247)782-847951 [place] [address] 03-02-2025 03:50-0400 Body mass index (BMI) [Ratio] 38.9 kg/m2 Dr. Hari Oneill DO Work Phone: 0(301)260-892651 [place] [address] 03-02-2025 03:50-0400 Body weight 130.[address] Hari Oneill DO Work Phone: 7(885)647-047851 [place] [address] 02-27-2025 16:05-0400 Body height 182.[address] Hari Oneill DO Work Phone: 4(950)102-598551 [place] [address] 02-27-2025 15:16-0400 Body temperature 97.3 [degF] Dr. Hari Oneill DO Work Phone: 1(005)751-867651 [place] [address] 02-27-2025 15:16-0400 Diastolic blood pressure 72 mm[Hg] Dr. Hari Oneill DO Work Phone: 9(341)372-973851 [place] [address] 02-27-2025 15:16-0400 Heart rate 70 /min Dr. Hari Oneill DO Work Phone: [facility] 02-27-2025 15:16-0400 Respiratory rate 17 /min Dr. Hari Oneill DO Work Phone: [facility] 02-27-2025 15:16-0400 SaO2% (BldA) [Mass fraction] 98 % Dr. Hari Oneill DO Work Phone: [facility] 02-27-2025 15:16-0400 Systolic blood pressure 148 mm[Hg] Dr. Hari Oneill DO Work Phone: [facility] 02-27-2025 09:56-0400 Body height 182.[address] Hari Oneill DO Work Phone: [facility] 02-27-2025 09:56-0400 Body mass index (BMI) [Ratio] 39.8 kg/m2 Dr. Hari Oneill DO Work Phone: [facility] 02-27-2025 09:56-0400 Body weight 133.[address] Hari Oneill DO Work Phone: [facility] 02-09-2025 13:51-0400 Body mass index (BMI) [Ratio] 39.56 kg/m2 Renee Rose PA-C Work Phone: [facility] 02-09-2025 13:51-0400 Body temperature 98.91 [degF] Renee Rose PA-C Work Phone: [facility] 02-09-2025 13:51-0400 Body weight 132.3 kg Renee oRse PA-C Work Phone: [facility] 02-09-2025 13:51-0400 Diastolic blood pressure 82 mm[Hg] Renee Rose PA-C Work Phone: [facility] 02-09-2025 13:51-0400 Heart rate 82 /min Renee Rose PA-C Work Phone: [facility] 02-09-2025 13:51-0400 Respiratory rate 20 /min Renee CISNEROS-C Work Phone: [facility] 02-09-2025 13:51-0400 SaO2% (BldA) [Mass fraction] 97 % Renee Rose PA-C Work Phone: [facility] 02-09-2025 13:51-0400 Systolic blood pressure 130 mm[Hg] Renee Rose PA-C Work Phone: [facility] 10-21-2024 08:46-0400 Body mass index (BMI) [Ratio] 39.33 kg/m2 Hari Oneill DO Work Phone: [facility] 10-21-2024 08:46-0400 Body temperature 97 [degF] Hari Oneill DO Work Phone: [facility] 10-21-2024 08:46-0400 Body weight 131.54 kg Hari Oneill DO Work Phone: [facility] 10-21-2024 08:46-0400 Diastolic blood pressure 70 mm[Hg] Hari Oneill DO Work Phone: [facility] 10-21-2024 08:46-0400 Heart rate 80 /min Hari Oneill DO Work Phone: [facility] 10-21-2024 08:46-0400 Respiratory rate 16 /min Hari Oneill DO Work Phone: [facility] 10-21-2024 08:46-0400 Systolic blood pressure 130 mm[Hg] Hari Oneill DO Work Phone: [facility] 09-30-2024 13:40-0500 Diastolic blood pressure 71 mm[Hg] Marjan Tariq MD Work Phone: [facility] 09-30-2024 13:40-0500 Heart rate 73 /min Marjan Tariq MD Work Phone: [facility] 09-30-2024 13:40-0500 Respiratory rate 18 /min Marjan Tariq MD Work Phone: [facility] 09-30-2024 13:40-0500 SaO2% (BldA) [Mass fraction] 99 % Marjan Tariq MD Work Phone: [facility] 09-30-2024 13:40-0500 Systolic blood pressure 143 mm[Hg] Marjan Tariq MD Work Phone: [facility] 09-30-2024 11:50-0500 Body mass index (BMI) [Ratio] 38.51 kg/m2 Marjan Tariq MD Work Phone: [facility] 09-30-2024 11:50-0500 Body temperature 97.2 [degF] Marjan Tariq MD Work Phone: [facility] 09-30-2024 11:50-0500 Body weight 128.8 kg Marjan Tariq MD Work Phone: [facility] 09-02-2024 10:51-0500 Diastolic blood pressure 71 mm[Hg] Eyad Novoa DO Work Phone: [facility] 09-02-2024 10:51-0500 Heart rate 77 /min Eyad Novoa DO Work Phone: [facility] 09-02-2024 10:51-0500 SaO2% (BldA) [Mass fraction] 98 % Eyad Novoa DO Work Phone: [facility] 09-02-2024 10:51-0500 Systolic blood pressure 147 mm[Hg] Eyad Novoa DO Work Phone: [facility] 08-29-2024 10:49-0500 Body mass index (BMI) [Ratio] 38.52 kg/m2 Jayesh Hernandez MD Work Phone: [facility] 08-29-2024 10:49-0500 Body weight 128.82 kg Jayesh Hernandez MD Work Phone: [facility] 08-29-2024 10:49-0500 Diastolic blood pressure 77 mm[Hg] Jayesh Hernandez MD Work Phone: [facility] 08-29-2024 10:49-0500 Heart rate 77 /min Jayesh Hernandez MD Work Phone: [facility] 08-29-2024 10:49-0500 SaO2% (BldA) [Mass fraction] 100 % Jayesh Hernandez MD Work Phone: [facility] 08-29-2024 10:49-0500 Systolic blood pressure 144 mm[Hg] Jayesh Hernandez MD Work Phone: [facility] 08-18-2024 13:48-0500 Body height 182.9 cm Audra Romanrebecca ANSARI [facility] 08-18-2024 13:48-0500 Body mass index (BMI) [Ratio] 38.19 kg/m2 Audra Chauhan ELAN [facility] 08-18-2024 13:48-0500 Body weight 127.[address] [facility] 07-24-2024 11:04-0500 Body mass index (BMI) [Ratio] 39.33 kg/m2 Suyapa Soraya 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 Work Phone: [facility] 07-24-2024 11:04-0500 Body weight 131.54 kg Suyapa Soraya 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 Work Phone: [facility] 07-24-2024 11:04-0500 Diastolic blood pressure 78 mm[Hg] Suyapa Soraya 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 Work Phone: [facility] 07-24-2024 11:04-0500 Heart rate 89 /min Suyapa Soraya 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 Work Phone: [facility] 07-24-2024 11:04-0500 Respiratory rate 16 /min Suyapa Soraya 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 Work Phone: [facility] 07-24-2024 11:04-0500 SaO2% (BldA) [Mass fraction] 100 % Suyapa Soraya 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 Work Phone: [facility] 07-24-2024 11:04-0500 Systolic blood pressure 130 mm[Hg] Suyapa Soraya 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 Work Phone: [facility] 06-10-2024 14:41-0500 Body mass index (BMI) [Ratio] 37.11 kg/m2 Suyapa Soraya 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 Work Phone: [facility] 06-10-2024 14:41-0500 Body temperature 97.39 [degF] Suyapa Soraya 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 Work Phone: [facility] 06-10-2024 14:41-0500 Body weight 124.1 kg Suyapa Soraya 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 Work Phone: [facility] 06-10-2024 14:41-0500 Diastolic blood pressure 82 mm[Hg] Suyapa Soraya 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 Work Phone: [facility] 06-10-2024 14:41-0500 Heart rate 61 /min Suyapa Soraya 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 Work Phone: [facility] 06-10-2024 14:41-0500 SaO2% (BldA) [Mass fraction] 99 % Suyapa Soraya 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 Work Phone: [facility] 06-10-2024 14:41-0500 Systolic blood pressure 126 mm[Hg] Suyapa Soraya 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 Work Phone: [facility] 05-29-2024 13:02-0400 Body mass index (BMI) [Ratio] 38.27 kg/m2 Skyler Adams JUNIOR SYSTEMS ANALYST.DAIRY HUSBANDRY WORKER Work Phone: [facility] 05-29-2024 13:02-0400 Body weight 128 kg Skyler Adams JUNIOR SYSTEMS ANALYST.DAIRY HUSBANDRY WORKER Work Phone: [facility] 05-29-2024 13:02-0400 Diastolic blood pressure 72 mm[Hg] Skyler Adams JUNIOR SYSTEMS ANALYST.DAIRY HUSBANDRY WORKER Work Phone: [facility] 05-29-2024 13:02-0400 Heart rate 77 /min Skyler Adams JUNIOR SYSTEMS ANALYST.DAIRY HUSBANDRY WORKER Work Phone: [facility] 05-29-2024 13:02-0400 Systolic blood pressure 137 mm[Hg] Skyler Adams JUNIOR SYSTEMS ANALYST.DAIRY HUSBANDRY WORKER Work Phone: [facility] 05-20-2024 09:21-0400 Body mass index (BMI) [Ratio] 38.21 kg/m2 Skyler Adams JUNIOR SYSTEMS ANALYST.DAIRY HUSBANDRY WORKER Work Phone: [facility] 05-20-2024 09:21-0400 Body weight 127.8 kg Skyler Adams JUNIOR SYSTEMS ANALYST.DAIRY HUSBANDRY WORKER Work Phone: [facility] 05-20-2024 09:21-0400 Diastolic blood pressure 80 mm[Hg] Skyler Adams JUNIOR SYSTEMS ANALYST.DAIRY HUSBANDRY WORKER Work Phone: [facility] 05-20-2024 09:21-0400 Heart rate 90 /min Skyler Adams JUNIOR SYSTEMS ANALYST.DAIRY HUSBANDRY WORKER Work Phone: [facility] 05-20-2024 09:21-0400 Respiratory rate 16 /min Skyler Adams JUNIOR SYSTEMS ANALYST.DAIRY HUSBANDRY WORKER Work Phone: [facility] 05-20-2024 09:21-0400 Systolic blood pressure 128 mm[Hg] Skyler Adams JUNIOR SYSTEMS ANALYST.DAIRY HUSBANDRY WORKER Work Phone: [facility] 05-20-2024 08:31-0400 Body mass index (BMI) [Ratio] 38.39 kg/m2 Gerardo Pendlebury 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 Work Phone: [facility] 05-20-2024 08:31-0400 Body temperature 97.7 [degF] Gerardo Shadebury 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 Work Phone: [facility] 05-20-2024 08:31-0400 Body weight 128.4 kg [facility] 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 Work Phone: [facility] 05-20-2024 08:31-0400 Diastolic blood pressure 80 mm[Hg] Gerardo Pendlebury 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 Work Phone: [facility] 05-20-2024 08:31-0400 Heart rate 90 /min Gerardo Pendlebury 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 Work Phone: [facility] 05-20-2024 08:31-0400 Respiratory rate 16 /min Gerardo Greenwood 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 Work Phone: [facility] 05-20-2024 08:31-0400 SaO2% (BldA) [Mass fraction] 97 % Gerardo Greenwood 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 Work Phone: [facility] 05-20-2024 08:31-0400 Systolic blood pressure 128 mm[Hg] Gerardo Greenwood 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 Work Phone: [facility] 05-14-2024 12:56-0400 Body height 182.9 cm Xavi Xie MD Work Phone: [facility] 05-14-2024 12:56-0400 Body mass index (BMI) [Ratio] 37.84 kg/m2 Xavi Xie MD Work Phone: [facility] 05-14-2024 12:56-0400 Body weight 126.55 kg Xavi Xie MD Work Phone: [facility] 05-14-2024 12:56-0400 Diastolic blood pressure 82 mm[Hg] Xavi Xie MD Work Phone: [facility] 05-14-2024 12:56-0400 Heart rate 79 /min Xavi Xie MD Work Phone: [facility] 05-14-2024 12:56-0400 Respiratory rate 18 /min Xavi Xie MD Work Phone: [facility] 05-14-2024 12:56-0400 SaO2% (BldA) [Mass fraction] 98 % Xavi Xie MD Work Phone: [facility] 05-14-2024 12:56-0400 Systolic blood pressure 147 mm[Hg] Xavi Xie MD Work Phone: [facility] 03-17-2024 14:54-0400 Body mass index (BMI) [Ratio] 37.16 kg/m2 Alexus Galloway 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 Work Phone: [facility] 03-17-2024 14:54-0400 Body temperature 97.81 [degF] Alexus Suppan 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 Work Phone: [facility] 03-17-2024 14:54-0400 Body weight 124.29 kg Alexus Suppan 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 Work Phone: [facility] 03-17-2024 14:54-0400 Diastolic blood pressure 64 mm[Hg] Alexus Suppan 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 Work Phone: [facility] 03-17-2024 14:54-0400 Heart rate 70 /min Alexus Suppan 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 Work Phone: [facility] 03-17-2024 14:54-0400 Respiratory rate 24 /min Alexus Suppan 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 Work Phone: [facility] 03-17-2024 14:54-0400 SaO2% (BldA) [Mass fraction] 96 % Alexus Suppan 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 Work Phone: [facility] 03-17-2024 14:54-0400 Systolic blood pressure 130 mm[Hg] Alexus Suppan 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 Work Phone: [facility] 03-11-2024 09:17-0400 Body height 182.9 cm Pio Bogner PA-C Work Phone: [facility] 03-11-2024 09:17-0400 Body temperature 99.19 [degF] Pio Bogner PA-C Work Phone: [facility] 03-11-2024 09:17-0400 Diastolic blood pressure 60 mm[Hg] Pio Bogner PA-C Work Phone: [facility] 03-11-2024 09:17-0400 Heart rate 91 /min Pio Bogner PA-C Work Phone: [facility] 03-11-2024 09:17-0400 Respiratory rate 16 /min Pio Bogner PA-C Work Phone: [facility] 03-11-2024 09:17-0400 SaO2% (BldA) [Mass fraction] 95 % Pio Mcclelland PA-C Work Phone: [facility] 03-11-2024 09:17-0400 Systolic blood pressure 146 mm[Hg] Pio Mcclelland PA-C Work Phone: [facility] 02-13-2024 14:03-0400 Body mass index (BMI) [Ratio] 36.97 kg/m2 Suyapa Soraya 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 Work Phone: [facility] 02-13-2024 14:03-0400 Body weight 123.65 kg Suyapa Soraya 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 Work Phone: [facility] 02-13-2024 14:03-0400 Diastolic blood pressure 82 mm[Hg] Suyapa Soraya 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 Work Phone: [facility] 02-13-2024 14:03-0400 Heart rate 63 /min Suyapa Soraya 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 Work Phone: [facility] 02-13-2024 14:03-0400 Respiratory rate 20 /min Suyapa Soraya 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 Work Phone: [facility] 02-13-2024 14:03-0400 SaO2% (BldA) [Mass fraction] 99 % Suyapa Soraya 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 Work Phone: [facility] 02-13-2024 14:03-0400 Systolic blood pressure 122 mm[Hg] Suyapa Soraya 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 Work Phone: [facility] 02-05-2024 13:07-0400 Body mass index (BMI) [Ratio] 37.11 kg/m2 Suyapa Soraya 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 Work Phone: [facility] 02-05-2024 13:07-0400 Body temperature 97.39 [degF] Suyapa Soraya 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 Work Phone: [facility] 02-05-2024 [id number] Body weight 124.1 kg Suyapa Soraya 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 Work Phone: [facility] 02-05-2024 13:07-0400 Diastolic blood pressure 78 mm[Hg] Suyapa Soraya 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 Work Phone: [facility] 02-05-2024 13:07040 Heart rate 74 /min Suyapa Soraya 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 Work Phone: [facility] 02-05-2024 13:[id number] Respiratory rate 20 /min Suyapa Soraya 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 Work Phone: [facility] 02-05-2024 13:07-0400 SaO2% (BldA) [Mass fraction] 96 % Suyapa Soraya 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 Work Phone: [facility] 02-05-2024 13:07-0400 Systolic blood pressure 136 mm[Hg] Suyapa Soraya 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 Work Phone: [facility] 01-29-2024 12:19-0400 Body mass index (BMI) [Ratio] 36.62 kg/m2 Hari Oneill DO Work Phone: [facility] 01-29-2024 12:19-040 Body temperature 96.6 [degF] Hari Oneill DO Work Phone: [facility] 01-29-2024 12:19-0400 Body weight 122.47 kg Hari Oneill DO Work Phone: [facility] 01-29-2024 12:19-0400 Diastolic blood pressure 82 mm[Hg] Hari Oneill DO Work Phone: [facility] 01-29-2024 12:19-0400 Heart rate 64 /min Hari Oneill DO Work Phone: [facility] 01-29-2024 12:19-0400 Respiratory rate 20 /min Hari Oneill DO Work Phone: [facility] 01-29-2024 12:19-0400 Systolic blood pressure 132 mm[Hg] Hari Oneill DO Work Phone: [facility] 12-19-2023 13:46-0400 Body height 182.9 cm Xavi Xie MD Work Phone: [facility] 12-19-2023 13:46-0400 Body mass index (BMI) [Ratio] 36.48 kg/m2 Xavi Xie MD Work Phone: [facility] 12-19-2023 13:46-0400 Body weight 122.02 kg Xavi Xie MD Work Phone: [facility] 12-19-2023 13:46-0400 Diastolic blood pressure 78 mm[Hg] Xavi Xie MD Work Phone: [facility] 12-19-2023 13:46-0400 Heart rate 79 /min Xavi Xie MD Work Phone: [facility] 12-19-2023 13:46-0400 Respiratory rate 18 /min Xavi Xie MD Work Phone: [facility] 12-19-2023 13:46-0400 SaO2% (BldA) [Mass fraction] 96 % Xavi Xie MD Work Phone: [facility] 12-19-2023 13:46-0400 Systolic blood pressure 150 mm[Hg] Xavi Xie MD Work Phone: [facility] 07-11-2023 15:44-0500 Body temperature 97 [degF] Hari Oneill DO Work Phone: [facility] 07-11-2023 15:44-0500 Body weight 122.02 kg Hari Oneill DO Work Phone: [facility] 07-11-2023 15:44-0500 Diastolic blood pressure 80 mm[Hg] Hari Oneill DO Work Phone: [facility] 07-11-2023 15:44-0500 Heart rate 76 /min Hari Oneill DO Work Phone: [facility] 07-11-2023 15:44-0500 Respiratory rate 24 /min Hari Oneill DO Work Phone: [facility] 07-11-2023 15:44-0500 Systolic blood pressure 136 mm[Hg] Hari Oneill DO Work Phone: [facility] 05-01-2023 10:39-0400 Body temperature 97 [degF] Hari Oneill DO Work Phone: [facility] 05-01-2023 10:39-0400 Body weight 116.12 kg Hari Oneill DO Work Phone: [facility] 05-01-2023 10:39-0400 Diastolic blood pressure 70 mm[Hg] Hari Oneill DO Work Phone: [facility] 05-01-2023 10:39-0400 Heart rate 76 /min Hari Oneill DO Work Phone: [facility] 05-01-2023 10:39-0400 Respiratory rate 20 /min Hari Oneill DO Work Phone: [facility] 05-01-2023 10:39-0400 Systolic blood pressure 128 mm[Hg] Hari Oneill DO Work Phone: [facility] 04-02-2023 12:54-0400 Body weight 118.39 kg Suyapa Soraya 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 Work Phone: [facility] 04-02-2023 12:54-0400 Diastolic blood pressure 82 mm[Hg] Suyapa Soraya 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 Work Phone: [facility] 04-02-2023 12:54-0400 Heart rate 75 /min Suyapa Soraya 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 Work Phone: [facility] 04-02-2023 12:54-0400 Respiratory rate 20 /min Suyapa Soraya 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 Work Phone: [facility] 04-02-2023 12:54-0400 SaO2% (BldA) [Mass fraction] 97 % Suyapa Lira APRN.PRODUCTION EXPERT Work Phone: [facility] 04-02-2023 12:54-0400 Systolic blood pressure 144 mm[Hg] Suyapa Lira APRN.PRODUCTION EXPERT Work Phone: [facility] 03-14-2023 15:15-0400 Body height 182.9 cm Xavi Xie MD Work Phone: [facility] 03-14-2023 15:15-0400 Body weight 113.85 kg Xavi Xie MD Work Phone: [facility] 03-14-2023 15:15-0400 Diastolic blood pressure 63 mm[Hg] Xavi Xie MD Work Phone: [facility] 03-14-2023 15:15-0400 Heart rate 78 /min Xavi Xie MD Work Phone: [facility] 03-14-2023 15:15-0400 SaO2% (BldA) [Mass fraction] 98 % Xavi Xie MD Work Phone: [facility] 03-14-2023 15:15-0400 Systolic blood pressure 122 mm[Hg] Xavi Xie MD Work Phone: [facility] 02-13-2023 11:38-0400 Body temperature 97.81 [degF] Aurora Sweet APRN.PRODUCTION EXPERT Work Phone: [facility] 02-13-2023 11:38-0400 Body weight 117.12 kg Aurora Sweet APRN.PRODUCTION EXPERT Work Phone: [facility] 02-13-2023 11:38-0400 Diastolic blood pressure 74 mm[Hg] Aurora Sweet APRN.PRODUCTION EXPERT Work Phone: [facility] 02-13-2023 11:38-0400 Heart rate 86 /min Aurora Sweet APRN.PRODUCTION EXPERT Work Phone: [facility] 02-13-2023 11:38-0400 Respiratory rate 18 /min Aurora Sweet APRN.PRODUCTION EXPERT Work Phone: [facility] 02-13-2023 11:38-0400 SaO2% (BldA) [Mass fraction] 97 % Aurora James JONATHAN.PRODUCTION EXPERT Work Phone: [facility] 02-13-2023 11:38-0400 Systolic blood pressure 126 mm[Hg] Aurora Sweet APRN.PRODUCTION EXPERT Work Phone: [facility] 01-08-2023 12:17-0400 Body height 182.9 cm Audra Tien ANSARI [facility] 01-08-2023 [id number] Body weight 116.[address] [facility] 11-27-2022 13:16-0400 Body temperature 97.3 [degF] Hari Oneill DO Work Phone: [facility] 11-27-2022 13:16-0400 Body weight 120.2 kg Hari Oneill DO Work Phone: [facility] 11-27-2022 13:16-0400 Diastolic blood pressure 80 mm[Hg] Hari Oneill DO Work Phone: [facility] 11-27-2022 13:16-0400 Heart rate 76 /min Hari Oneill DO Work Phone: [facility] 11-27-2022 13:16-0400 Respiratory rate 20 /min Hari Oneill DO Work Phone: [facility] 11-27-2022 13:16-0400 Systolic blood pressure 130 mm[Hg] Hari Oneill DO Work Phone: [facility] 11-27-2022 12:140400 Body height 182.[address] [facility] 11-27-2022 12:[id number] Body weight 118.[address] [facility] 10-16-2022 10:040 Body height 182.[address] [facility] 10-16-2022 10:040 Body weight 125.[address] [facility] 08-29-2022 12:12-0500 Body weight 122.47 kg Hari Oneill DO Work Phone: [facility] 08-29-2022 12:12-0500 Diastolic blood pressure 62 mm[Hg] Hari Oneill DO Work Phone: [facility] 08-29-2022 12:12-0500 Heart rate 72 /min Hari Oneill DO Work Phone: [facility] 08-29-2022 12:12-0500 Respiratory rate 20 /min Hari Oneill DO Work Phone: [facility] 08-29-2022 12:12-0500 SaO2% (BldA) [Mass fraction] 98 % Hari Oneill DO Work Phone: [facility] 08-29-2022 12:12-0500 Systolic blood pressure 128 mm[Hg] Hari Oneill DO Work Phone: [facility] 07-10-2022 11:53-0500 Body weight 124.29 kg Suyapa Soraya 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 Work Phone: [facility] 07-10-2022 11:53-0500 Diastolic blood pressure 80 mm[Hg] Suyapa Soraya 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 Work Phone: [facility] 07-10-2022 11:53-0500 Heart rate 70 /min Suyapa Soraya 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 Work Phone: [facility] 07-10-2022 11:53-0500 Respiratory rate 20 /min Suyapa Soraya 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 Work Phone: [facility] 07-10-2022 11:53-0500 SaO2% (BldA) [Mass fraction] 100 % Suyapa Soraya 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 Work Phone: [facility] 07-10-2022 11:53-0500 Systolic blood pressure 124 mm[Hg] Suyapa Soraya 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 Work Phone: [facility] 05-24-2022 13:44-0400 Body height 182.9 cm Xavi Xie MD Work Phone: [facility] 05-24-2022 13:44-0400 Body weight 122.47 kg Xavi Xie MD Work Phone: [facility] 05-24-2022 13:44-0400 Diastolic blood pressure 59 mm[Hg] Xavi Xie MD Work Phone: [facility] 05-24-2022 13:44-0400 Heart rate 73 /min Xavi Xie MD Work Phone: [facility] 05-24-2022 13:44-0400 Respiratory rate 20 /min Xavi Xie MD Work Phone: [facility] 05-24-2022 13:44-0400 SaO2% (BldA) [Mass fraction] 99 % Xavi Xie MD Work Phone: [facility] 05-24-2022 13:44-0400 Systolic blood pressure 127 mm[Hg] Xavi Xie MD Work Phone: [facility] 05-22-2022 13:21-0400 Body temperature 96.8 [degF] Hari Oneill DO Work Phone: [facility] 05-22-2022 13:21-0400 Body weight 123.38 kg Hari Oneill DO Work Phone: [facility] 05-22-2022 13:21-0400 Diastolic blood pressure 60 mm[Hg] Hari Oneill DO Work Phone: [facility] 05-22-2022 13:21-0400 Heart rate 80 /min Hari Oneill DO Work Phone: [facility] 05-22-2022 13:21-0400 Respiratory rate 20 /min Hari Oneill DO Work Phone: [facility] 05-22-2022 13:21-0400 Systolic blood pressure 130 mm[Hg] Hari Oneill DO Work Phone: [facility] 05-09-2022 13:45-0400 Body weight 122.74 kg Shanda Pack 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 Work Phone: [facility] 05-09-2022 13:45-0400 Diastolic blood pressure 79 mm[Hg] Shanda Pack 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 Work Phone: [facility] 05-09-2022 13:45-0400 Heart rate 73 /min Shanda Pack 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 Work Phone: [facility] 05-09-2022 13:45-0400 Systolic blood pressure 141 mm[Hg] Shanda Pack 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 Work Phone: [facility] 02-17-2022 12:39-0400 Body weight 124.92 kg Suyapa Soraya 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 Work Phone: [facility] 02-17-2022 12:39-0400 Diastolic blood pressure 78 mm[Hg] Suyapa Soraya 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 Work Phone: [facility] 02-17-2022 12:39-0400 Heart rate 76 /min Suyapa Soraya 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 Work Phone: [facility] 02-17-2022 12:39-0400 SaO2% (BldA) [Mass fraction] 97 % Suyapa Soraya 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 Work Phone: [facility] 02-17-2022 12:39-0400 Systolic blood pressure 140 mm[Hg] Suyapa Soraya 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 Work Phone: [facility] 12-15-2021 10:49-0400 Body weight 129.82 kg Dai Zurawick 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 Work Phone: [facility] 12-15-2021 10:49-0400 Diastolic blood pressure 64 mm[Hg] Dai Zurawick 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 Work Phone: [facility] 12-15-2021 10:49-0400 Heart rate 60 /min Dai Zurawick 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 Work Phone: [facility] 12-15-2021 10:49-0400 Respiratory rate 18 /min Dai Zurawick 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 Work Phone: [facility] 12-15-2021 10:49-0400 Systolic blood pressure 120 mm[Hg] Dai Zurawick 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 Work Phone: [facility] 12-13-2021 10:37-0400 Body height 177.8 cm Tereza Salvador 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 Work Phone: [facility] 12-13-2021 10:37-0400 Body weight 129.91 kg Tereza Salvador 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 Work Phone: [facility] 12-13-2021 10:37-0400 Diastolic blood pressure 64 mm[Hg] Tereza Salvador 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 Work Phone: [facility] 12-13-2021 10:37-0400 Heart rate 81 /min Tereza Salvador 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 Work Phone: [facility] 12-13-2021 10:37-0400 Respiratory rate 16 /min Tereza Salvador 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 Work Phone: [facility] 12-13-2021 10:37-0400 SaO2% (BldA) [Mass fraction] 96 % Tereza Salvador 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 Work Phone: [facility] 12-13-2021 10:37-0400 Systolic blood pressure 132 mm[Hg] Tereza Salvador 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 Work Phone: [facility] 12-08-2021 19:55-0400 Body temperature 98.1 [degF] Dr. Hari Oneill Work Phone: [facility] Work Phone: 12-08-2021 19:55-0400 Diastolic blood pressure 78 mm[Hg] Dr. Hari Oneill Work Phone: [facility] Work Phone: 12-08-2021 19:55-0400 Heart rate 89 /min Dr. Hari Oneill Work Phone: [facility] Work Phone: 12-08-2021 19:55-0400 Respiratory rate 15 /min Dr. Hari Oneill Work Phone: [facility] Work Phone: 12-08-2021 19:55-0400 SaO2% (BldA) [Mass fraction] 97 % Dr. Hari Oneill Work Phone: [facility] Work Phone: 12-08-2021 19:55-0400 Systolic blood pressure 147 mm[Hg] Dr. Hari Oneill Work Phone: [facility] Work Phone: 12-08-2021 19:54-0400 Body height 182.[address] Hari Oneill Work Phone: [facility] Work Phone: 12-08-2021 19:54-0400 Body mass index (BMI) [Ratio] 40.1 kg/m2 Dr. Hari Oneill Work Phone: [facility] Work Phone: 12-08-2021 19:54-0400 Body weight 134.[address] Hari Oneill Work Phone: [facility] Work Phone: 11-21-2021 14:32-0400 Body temperature 98.2 [degF] Hari Oneill DO Work Phone: [facility] 11-21-2021 14:32-0400 Body weight 133.36 kg Hari Oneill DO Work Phone: [facility] 11-21-2021 14:32-0400 Diastolic blood pressure 60 mm[Hg] Hari Oneill DO Work Phone: [facility] 11-21-2021 14:32-0400 Heart rate 80 /min Hari Oneill DO Work Phone: [facility] 11-21-2021 14:32-0400 Respiratory rate 20 /min Hari Guanrison DO Work Phone: [facility] 11-21-2021 14:32-0400 Systolic blood pressure 136 mm[Hg] Hari Guanrison DO Work Phone: [facility] 11-09-2021 14:00-0400 Body height 182.9 cm Xavi Xie MD Work Phone: [facility] 11-09-2021 14:00-0400 Body weight 130.64 kg Xavi Xie MD Work Phone: [facility] 11-09-2021 14:00-0400 Diastolic blood pressure 51 mm[Hg] Xavi Xie MD Work Phone: [facility] 11-09-2021 14:00-0400 Heart rate 83 /min Xavi Xie MD Work Phone: [facility] 11-09-2021 14:00-0400 Respiratory rate 19 /min Xavi Xie MD Work Phone: [facility] 11-09-2021 14:00-0400 SaO2% (BldA) [Mass fraction] 97 % Xavi Xie MD Work Phone: [facility] 11-09-2021 14:00-0400 Systolic blood pressure 142 mm[Hg] Xavi Xie MD Work Phone: [facility] 10-31-2021 15:01-0400 Body height 182.9 cm Pepito Chan MD Work Phone: [facility] 10-31-2021 15:01-0400 Body temperature 97.3 [degF] Pepito Chan MD Work Phone: [facility] 10-31-2021 15:01-0400 Body weight 127.01 kg Pepito Chan MD Work Phone: [facility] 10-31-2021 15:01-0400 Diastolic blood pressure 72 mm[Hg] Pepito Chan MD Work Phone: [facility] 10-31-2021 15:01-0400 Heart rate 72 /min Pepito Chan MD Work Phone: [facility] 10-31-2021 15:01-0400 Systolic blood pressure 148 mm[Hg] Pepito Chan MD Work Phone: [facility] 09-12-2021 12:31-0500 Body mass index (BMI) [Ratio] 38.1 kg/m2 Dr. Hari Oneill Work Phone: [facility] Work Phone: 09-12-2021 12:31-0500 Body weight 127.[address] Hari Oneill Work Phone: [facility] Work Phone: 09-12-2021 12:31-0500 Diastolic blood pressure 81 mm[Hg] Dr. Hari Oneill Work Phone: [facility] Work Phone: 09-12-2021 12:31-0500 Respiratory rate 18 /min Dr. Hari Oneill Work Phone: [facility] Work Phone: 09-12-2021 12:31-0500 Systolic blood pressure 143 mm[Hg] Dr. Hari Oneill Work Phone: [facility] Work Phone: Encounters Encounter Date Encounter Type Care Provider Facility Start: 03-24-2025 ambulatory Hari Oneill Facilit y:[facility] Start: 03-18-2025 End: 03-18-2025 Subsequent hospital visit by physician [facility] Work Phone: Radiology Comment on above: ARNDT (dyspnea on exer tion) [R06.09] Start: 03-18-2025 End: 03-19-2025 Follow-up encounter Pauliemonserrat Gooden Tico MCMAHON Work Phone: [facility] Comment on above: Results Start: 03-18-2025 End: 03-18-2025 ambulatory HARI ONEILL Facility:[facility] Start: 03-18-2025 End: 03-18-2025 Office outpatient visit 40 minutes Paulie Gooden Tico MCMAHON Work Phone: [facility] Comment on above: Chronic pseudo-obstr uction of colon (Primary Dx); Bilateral leg edema; Venous stasis dermatitis of both lower extremities; Hypokalemia; Hyponatremia; Hypophosphataemia; ARNDT (dyspnea on exertion); Borderline low oxygen saturation level; Fatigue, unspecified type; History of pulmonary embolus (PE); 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 Carlton youssef MD -[facility] Work Phone: Start: 03-11-2025 Non-patient / Non-visit Luis A Moffett nd DO -[facility] Start: 03-11-2025 Non-patient / Non-visit Dr. Carlton youssef MD -[facility] Work Phone: Start: 03-10-2025 ambulatory Lui sA Singh [facility] Start: 03-10-2025 Non-patient / Non-visit Luis A Moffett nd DO [facility] Start: 03-10-2025 Non-patient / Non-visit Dr. Carlton youssef MD [facility] Work Phone: Start: 03-09-2025 End: 03-18-2025 Telephone encounter Hari Oneill DO Work Phone: [facility] Comment on above: Medication Problem Start: 03-09-2025 Non-patient / Non-visit Luis A Moffett nd DO -[facility] Start: 03-08-2025 ambulatory Duncan Olvera ility:[facility] Start: 03-08-2025 End: 03-12-2025 Evaluation and management of inpatient Dr. Carlton Davis MD -Medical Surgical 3 Work Phone: Start: 03-08-2025 Non-patient / Non-visit Dr. Danae Stanton MD [facility] Work Phone: Start: 03-07-2025 Non-patient / Non-visit Luis A Moffett nd [facility] Start: 03-07-2025 Non-patient / Non-visit Dr. Danae Stanton MD [facility] Work Phone: Start: 03-06-2025 Non-patient / Non-visit Luis A [facility]off[facility] Start: 03-06-2025 Non-patient / Non-visit Dr. Danae Stanton MD [facility] Work Phone: Start: 03-05-2025 ambulatory Duncan Olvera ility:[facility] Start: 03-05-2025 Non-patient / Non-visit Dr. Roro BLANCAS [facility] Work Phone: Start: 03-05-2025 Evaluation and management of inpatient Dr. Duncan Rashid DO -[facility] 3 Work Phone: Start: 03-04-2025 End: 03-04-2025 Patient encounter procedure Beatriz Moncada MD Work Phone: [facility] Comment on above: Kimberly syndrome (Pr imary Dx); Abdominal distention; Nausea; Diarrhea, unspecified type; Hyponatremia; Hypokalemia; Presence of IVC filter; Thrombosis; Polyuria; Polydipsia; Polyphagia; Food insecurity Start: 03-04-2025 End: 03-04-2025 ambulatory HARI ONEILL Facility:[facility] Start: 03-02-2025 Non-patient / Non-visit Dr. Danae Stanton MD [facility] Work Phone: Start: 03-02-2025 Non-patient / Non-visit Dinah johnson PA-C [facility] Start: 03-01-2025 Non-patient / Non-visit Dr. Shamir Kim MD [facility] Start: 02-28-2025 Non-patient / Non-visit Dr. Shamir Kim MD -[facility] Start: 02-28-2025 Non-patient / Non-visit Dr. Danae Stanton MD -[facility] Work Phone: Start: 02-27-2025 Non-patient / Non-visit Luis A Moffett vickie BLANCAS -[facility] Start: 02-27-2025 End: 03-02-2025 Evaluation and management of inpatient Dr. Lisa Mike MD -Progressive Care Unit Work Phone: Start: 02-27-2025 Non-patient / Non-visit Dr. Lisa kline MD -[facility] Work Phone: Start: 02-27-2025 End: 03-02-2025 ambulatory Hari Hopperon DO Work Phone: [facility] Comment on above: Abdominal Pain Refill Request Start: 02-11-2025 End: 02-11-2025 ambulatory Bg Ford RN [facility] Management Comment on above: ACM SANFORD RN ( Chart review per payor request) Start: 02-10-2025 End: 02-10-2025 Emergency department patient visit HARI ONEILL Facility:[facility] Start: 02-09-2025 End: 02-09-2025 Office outpatient visit 25 minutes Renee Rose PA-C Work Phone: [facility] Comment on above: Melena; Polyuria; halfway (current) use of anticoagulants Start: 02-09-2025 End: 02-09-2025 ambulatory RENEE ROSE Facility:[facility] Start: 01-22-2025 End: 01-22-2025 ambulatory Hari Hopperon DO Work Phone: [facility] Start: 01-22-2025 End: 01-22-2025 Patient encounter procedure Hari Guanrison DO Work Phone: [facility] Comment on above: Population Health Na vigation Outreach ([facility] [place] ) Refill Request Start: 12-22-2024 End: 12-22-2024 Refill Hari L Oneill DO Work Phone: [facility] Comment on above: Refill Request Start: 11-19-2024 End: 11-19-2024 Refill Xavi Xie MD Work Phone: Neurology Comment on above: Refill Request Start: 10-29-2024 End: 10-30-2024 Refill Hari Guanrison DO Work Phone: [facility] [place] Comment on above: Refill Request; requ esting medication that is not on list Results Start: 10-28-2024 End: 10-28-2024 Refill Hari Guanrison DO Work Phone: [facility] Comment on above: Refill Request Start: 10-24-2024 End: 10-24-2024 Refill Hari Hopperon DO Work Phone: [facility] Comment on above: Refill Request Start: 10-21-2024 End: 10-23-2024 Telephone encounter Hari Hopperon DO Work Phone: [facility] Comment on above: Anticoagulation Start: 10-21-2024 End: 10-21-2024 ambulatory HARI L ONEILL Facility:[facility] Start: 10-21-2024 End: 10-21-2024 Patient encounter procedure Hari Hopperon DO Work Phone: [facility] Comment on above: Venous stasis dermat itis of both lower extremities (Primary Dx); Polydipsia; Polyuria; Hyperglycemia; Hypothyroidism, acquired; Other acute pulmonary embolism with acute cor pulmonale (HCC); Frequent bowel movements; Nausea; Abdominal fullness; Calculus of gallbladder without cholecystitis without obstruction; halfway current use of anticoagulant therapy; Focal epilepsy with impairment of consciousness, intractable (HCC) Start: 10-08-2024 End: 10-08-2024 ambulatory HARI L ONEILL Facility:[facility] Start: 10-08-2024 End: 10-08-2024 Patient encounter procedure Bere Hays APRN.CNP Work Phone: General Surgery Comment on above: Gastroesophageal ref lux disease without esophagitis (Primary Dx); Gastritis without bleeding, unspecified chronicity, unspecified gastritis type Start: 09-30-2024 End: 09-30-2024 ambulatory HARI L ONEILL Facility:[facility] Start: 09-30-2024 End: 09-30-2024 Subsequent hospital visit by physician Marjan Tariq MD Work Phone: Ambulatory Surgery Comment on above: Nausea [R11.0] Start: 09-29-2024 End: 09-29-2024 Orders Only Berejose luis Hays APRN.CNP Work Phone: General Surgery Comment on above: Nausea (Primary Dx); Abdominal bloating; Abdominal fullness; Early satiety; Diarrhea, unspecified type Calculus of gallblad marycarmen without cholecystitis without obstruction [K80.20] Start: 09-10-2024 End: 09-10-2024 ambulatory Dereck Cochran MA [employer] [facility] [employer] Start: 09-10-2024 End: 09-10-2024 [facility] Comment on above: Population Health Na vigation Outreach ([employer] [facility] [place]) Start: 09-02-2024 End: 09-02-2024 ambulatory HARI [place]ont ONEILL Facility:[facility] Start: 09-02-2024 End: 09-02-2024 Patient encounter procedure Eyad Novoa DO Work Phone: Vascular Surgery Comment on above: Post-thrombotic synd guy (Primary Dx); Bilateral leg edema; Bilateral leg pain Start: 08-29-2024 End: 10-29-2024 Telephone encounter Jayesh Hernandez MD Work Phone: General Surgery Comment on above: 09-29-2024 Colon [facility] Start: 08-29-2024 End: 08-29-2024 ambulatory HARI L ONEILL Facility:[facility] Start: 08-29-2024 End: 08-29-2024 Patient encounter procedure Jayesh Hernandez MD Work Phone: General Surgery Comment on above: Diarrhea, unspecifie d type (Primary Dx); Calculus of gallbladder without cholecystitis without obstruction; Nausea; Abdominal fullness; Abdominal bloating; Early satiety Start: 08-18-2024 End: 08-18-2024 Nutrition therapy Audra Chauhan RD Nutrition Therapy Comment on above: Assessment; Patient Education Start: 08-18-2024 End: 08-18-[address] [facility] Start: 08-15-2024 End: 08-21-2024 Telephone encounter Suyapa Lira APRN.CNP Work Phone: [facility] Comment on above: Results; Appointment Start: 08-15-2024 End: 08-15-2024 ambulatory HARI ONEILL Facility:[facility] Start: 08-15-2024 End: 08-15-2024 Subsequent hospital visit by physician [facility] Work Phone: Nuclear Medicine Start: 08-08-2024 End: 08-21-2024 Telephone encounter Suyapa Lira APRN.CNP Work Phone: [facility] Comment on above: Results; Orders; Josef ointment Start: 07-28-2024 End: 07-28-2024 ambulatory HARI GUANRISON Facility:[facility] Start: 07-28-2024 End: 07-28-2024 Subsequent hospital visit by physician [facility] Work Phone: Radiology Comment on above: Nausea [R11.0] Start: 07-25-2024 End: 08-21-2024 Telephone encounter Suyapa Lira APRN.CNP Work Phone: [facility] [place] Comment on above: Results; Orders Start: 07-24-2024 End: 07-24-2024 ambulatory HARI GUANRISON Facility:[facility] Start: 07-24-2024 End: 07-24-2024 Office outpatient visit 40 minutes Suyapa Lira APRN.CNP Work Phone: [facility] Comment on above: Frequent urination a t night (Primary Dx); halfway current use of anticoagulant therapy; History of pulmonary embolus (PE); Nausea; Weight gain; Overeating; Frequent bowel movements; Bilateral leg edema; Bilateral leg pain Start: 07-11-2024 End: 07-11-2024 Telephone encounter Xavi Xie MD Work Phone: Neurology Comment on above: Forms ([facility] Re-enroll ment Confirmation for VIMPAT) Start: 07-02-2024 End: 07-02-2024 Refill Dai Rivera APRN.PRODUCTION EXPERT Work Phone: [facility] [place] Comment on above: Refill Request Start: 06-23-2024 End: 06-23-2024 Refill Hari Oneill DO Work Phone: [facility] [place] Comment on above: Refill Request Start: 06-11-2024 ambulatory [facility] ty:[facility] Start: 06-11-2024 End: 06-11-2024 Subsequent hospital visit by physician [facility] Comment on above: Cellulitis of lower extremity, unspecified laterality [L03.119] Start: 06-10-2024 End: 06-10-2024 Office outpatient visit 40 minutes Suyapa Lira APRN.PRODUCTION EXPERT Work Phone: [facility] [place] Comment on above: Cellulitis of lower extremity, unspecified laterality; Bilateral leg edema Start: 06-10-2024 End: 06-10-2024 ambulatory HARI ONEILL Facility:[facility] Start: 06-10-2024 End: 06-10-2024 Telephone encounter Hari Oneill DO Work Phone: [facility] [place] Comment on above: Orders (INR ) Start: 05-29-2024 End: 05-30-2024 Telephone encounter Alexus Galloway APRN.PRODUCTION EXPERT Work Phone: [facility] [place] Comment on above: Anticoagulation Start: 05-29-2024 End: 05-29-2024 ambulatory HARI ONEILL Facility:[facility] Start: 05-29-2024 End: 05-29-2024 Office outpatient visit 15 minutes Skyler Adams APRN.DAIRY HUSBANDRY WORKER Work Phone: [facility] [place] Comment on above: Cellulitis of lower extremity, unspecified laterality (Primary Dx); Bilateral leg edema Start: 05-20-2024 End: 05-20-2024 Office outpatient visit 25 minutes Skyler Adams JUNIOR SYSTEMS ANALYST.DAIRY HUSBANDRY WORKER Work Phone: [facility] [place] Comment on above: Cellulitis of lower extremity, unspecified laterality (Primary Dx); Bilateral leg edema Start: 05-20-2024 End: 05-20-2024 ambulatory HARI L ONEILL Facility:[facility] Start: 05-20-2024 End: 05-20-2024 Patient encounter procedure Gerardo Greenwood 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 Work Phone: [facility] Comment on above: Procedure not peter d out (Primary Dx) Start: 05-15-2024 End: 05-15-2024 Refill Xavi Xie MD Work Phone: Neurology Comment on above: Refill Request Start: 05-14-2024 End: 05-14-2024 Patient encounter procedure Xavi Xie MD Work Phone: Neurology Comment on above: Partial epilepsy, wi th intractable epilepsy, pharmacoresistant (HCC) (Primary Dx) Start: 05-14-2024 End: 05-14-2024 ambulatory HARI L ONEILL Facility:[facility] Start: 05-13-2024 End: 05-15-2024 Telephone encounter Hari L Oneill DO Work Phone: [facility] [place] Comment on above: Anticoagulation Start: 05-12-2024 End: 05-12-2024 ambulatory HARI L ONEILL Facility:[facility] Start: 05-12-2024 End: 05-12-2024 Telephone encounter Hari L Oneill DO Work Phone: [facility] [place] Comment on above: Erroneous encounter- disregard INR results Start: 05-06-2024 End: 05-06-2024 Telephone encounter Pio Mcclelland PA-C Work Phone: Family [facility] [place] Start: 05-05-2024 End: 05-05-2024 ambulatory HARI L ONEILL Facility:[facility] Start: 05-05-2024 End: 05-05-2024 ambulatory HARI L ONEILL Facility:[facility] Start: 05-05-2024 End: 05-05-2024 Patient encounter procedure Echocardiogram Wstr Work Phone: Cardiology Comment on above: Newly recognized hea rt murmur DVT (deep vein throm bosis) in (Primary Dx); History of DVT (deep vein thrombosis); Hypokalemia Refill Request Start: 03-21-2024 End: 03-21-2024 ambulatory [facility] Facility:[facility] Start: 03-17-2024 End: 03-17-2024 Office outpatient visit 15 minutes Alexus Galloway APRN.PRODUCTION EXPERT Work Phone: [facility] Comment on above: Gross hematuria (Mari wood Dx); Iron deficiency anemia due to chronic blood loss; Hypokalemia; Generalized weakness Start: 03-11-2024 ambulatory Hari Lainez son DO Work Phone: [facility] Comment on above: Fever Start: 03-11-2024 Telephone encounter Hari Julia Dominguez wesburt DO Work Phone: [facility] Comment on above: Blood In Urine (star keo 1 hour ago 12:46 pm) Start: 03-11-2024 End: 03-11-2024 Office outpatient visit 25 minutes Pio Mcclelland PA-C Work Phone: [facility] Comment on above: Newly recognized hea rt murmur (Primary Dx); Diarrhea, unspecified type Start: 03-10-2024 Refill Hari Lainez son DO Work Phone: [facility] Comment on above: Refill Request Start: 02-14-2024 Telephone encounter Xavi torres MD Work Phone: Neurology Comment on above: Medication Problem ( Keppra - Low Levels) Start: 02-13-2024 End: 02-13-2024 Patient encounter procedure Suyapa Lira APRN.PRODUCTION EXPERT Work Phone: [facility] Comment on above: Wound of right lower extremity, subsequent encounter (Primary Dx); Wound of left lower extremity, initial encounter Start: 02-05-2024 End: 02-05-2024 Patient encounter procedure Suyapa Lira APRN.PRODUCTION EXPERT Work Phone: [facility] [place] Comment on above: Avulsion of toenail of left foot (Primary Dx); Avulsion of toenail of right foot; Wound of right lower extremity, subsequent encounter; Onychomycosis; Bilateral leg edema Start: 01-29-2024 End: 01-29-2024 Patient encounter procedure Hari Oneill DO Work Phone: [facility] [place] Comment on above: Leg wound, right, in itial encounter (Primary Dx); Avulsion of toenail of left foot; Bleeding from wound; Diffuse large B-cell lymphoma, unspecified body region (HCC); Major depressive disorder, single episode, in full remission (HCC); Morbid obesity (HCC); IFG (impaired fasting glucose); Hypothyroidism, acquired; Dysthymia; Partial epilepsy, with intractable epilepsy, pharmacoresistant (HCC) Start: 01-17-2024 Refill Hari cary DO Work Phone: [facility] [place] Comment on above: Refill Request Start: 01-14-2024 Refill Mi Ortez Work Phone: Neurology Comment on above: Refill Request Start: 01-01-2024 Telephone encounter Hari solares DO Work Phone: [facility] [place] Comment on above: Letter to get off Ju ry Duty Start: 12-19-2023 End: 12-19-2023 Refill Hari Dumont [facility]ill DO [facility] Phone[facility] Comment on above: Refill Request Partial epilepsy, wi th intractable epilepsy, pharmacoresistant (HCC) (Primary Dx) Start: 12-13-2023 Refill Le Nunn PRN.CNP Work Phone: Neurology Comment on above: Refill Request Start: 11-23-2023 Refill Xavi Xie MD Work Phone: Neurology Comment on above: Refill Request Start: 10-30-2023 Refill Mi Ortez Work Phone: Neurology Comment on above: Refill Request Start: 10-08-2023 Refill Hari cary DO Work Phone: [facility] [place] Comment on above: Refill Request Start: 10-08-2023 Refill Keerthi Nunn PRN.CNP Work Phone: Neurology Comment on above: Refill Request Start: 09-27-2023 Telephone encounter Hari solares DO Work Phone: [facility] [place] Comment on above: Refill Request Start: 09-17-2023 Telephone encounter Xavi torres MD Work Phone: Neurology Comment on above: Medication Problem ( Vimpat - UCB Application and script) Start: 07-18-2023 Telephone encounter Hari solares DO Work Phone: [facility] [place] Comment on above: Anticoagulation Start: 07-11-2023 End: 07-11-2023 Patient encounter procedure Hari Oneill DO Work Phone: [facility] Comment on above: IFG (impaired fastin g glucose) (Primary Dx); Polydipsia; Dysthymia; Chronic anticoagulation; 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); Hypothyroidism, acquired; Obesity, Class II, BMI 35-39.9; Partial epilepsy, with intractable epilepsy, pharmacoresistant (HCC); Poor diet; Weight gain; Dyslipidemia Start: 07-11-2023 Telephone encounter Xavi torres MD Work Phone: Neurology Comment on above: General (Clearance) Start: 07-04-2023 Telephone encounter Hari solares DO Work Phone: [facility] Comment on above: Orders Start: 05-24-2023 Refill Xavi Xie MD Work Phone: Neurology Comment on above: Refill Request Start: 05-01-2023 End: 05-01-2023 Patient encounter procedure Hari Oneill DO Work Phone: [facility] [place] Comment on above: Hypothyroidism, acqu ired (Primary Dx); Bilateral leg pain; long term care pharmacist current use of anticoagulant therapy; Other pulmonary embolism without acute cor pulmonale, unspecified chronicity (HCC); Chronic anticoagulation; Partial epilepsy, with intractable epilepsy, pharmacoresistant (HCC); Obesity, Class II, BMI 35-39.9 Start: 04-23-2023 Refill Xavi Xie MD Work Phone: Neurology Comment on above: Refill Request Start: 04-19-2023 Telephone encounter Suyapa Joseph JONATHAN.PRODUCTION EXPERT Work Phone: [facility] [place] Comment on above: Patient Update Start: 04-18-2023 Telephone encounter Xavi torres MD Work Phone: Neurology Comment on above: Seizures Start: 04-06-2023 Refill Hari cary DO Work Phone: [facility] [place] Comment on above: Refill Request Start: 04-04-2023 Telephone encounter Suyapa Dingclive JONATHAN.PRODUCTION EXPERT Work Phone: [facility] [place] Comment on above: Results; Orders Start: 04-02-2023 End: 04-02-2023 Patient encounter procedure Suyapa Vásquezutzman JONATHAN.PRODUCTION EXPERT Work Phone: [facility] [place] Comment on above: Partial epilepsy, wi th intractable epilepsy, pharmacoresistant (HCC) (Primary Dx); Seizure (HCC); Chronic anticoagulation; halfway current use of anticoagulant therapy; Other pulmonary embolism without acute cor pulmonale, unspecified chronicity (HCC); Bilateral leg pain; Frequent urination at night; Poor diet; Weight gain; Obesity, Class II, BMI 35-39.9; 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) Start: 03-14-2023 End: 03-14-2023 Patient encounter procedure Xavi Xie MD Work Phone: Neurology Comment on above: Partial epilepsy, wi th intractable epilepsy, pharmacoresistant (HCC) Start: 02-22-2023 Refill Hari Lainez son DO Work Phone: [facility] Comment on above: Refill Request Start: 02-14-2023 Telephone encounter Aurora Sweet APRN.PRODUCTION EXPERT Work Phone: [facility] Comment on above: Results Start: 02-13-2023 End: 02-13-2023 Subsequent hospital visit by physician Xr [facility] [place] Work Phone: Radiology Comment on above: Pain [R52] Start: 02-13-2023 End: 02-13-2023 Patient encounter procedure Aurora Sweet APRN.PRODUCTION EXPERT Work Phone: [facility] Comment on above: Pain (Primary Dx) Start: 01-31-2023 Telephone encounter Abelino varner Research Coordinator Neurology Comment on above: Research (IRB [id number] ) Start: 01-10-2023 ambulatory Nate Israel esearch Coordinator Neurology Comment on above: An opportunity to pa rticipate in an important [facility]ile[facility] Research Study Start: 01-10-2023 E-mail encounter lyle cruz caregiver Nate Martinez Research Coordinator [facility] Start: 01-08-2023 End: 01-08-[address] Nutrition Therapy Comment on above: Reassessment; Patien t Education Start: 12-14-2022 Telephone encounter Hari solares DO Work Phone: [facility] [place] Comment on above: Anticoagulation Start: 12-12-2022 Telephone encounter Hari Dominguez arrison DO Work Phone: [facility] [place] Comment on above: Orders Start: 12-06-2022 Refill Hari Dumont Fatou son DO Work Phone: [facility] [place] Comment on above: Refill Request Start: 12-05-2022 Telephone encounter Xavi torres MD Work Phone: Neurology Comment on above: Seizures Patient Update Start: 11-29-2022 Telephone encounter Hari Dominguez arrison DO Work Phone: [facility] [place] Comment on above: Results Start: 11-28-2022 ambulatory Shanda STEPHENS RN.PRODUCTION EXPERT Work Phone: Gastroenterology Comment on above: bacterial overgrowth Start: 11-28-2022 E-mail encounter lyle cruz caregiver Shanda Lainez APRN.PRODUCTION EXPERT Work Phone: [facility] Start: 11-28-2022 Telephone encounter Hari solares DO Work Phone: [facility] [place] Comment on above: Anticoagulation Start: 11-27-2022 End: 11-27-2022 Patient encounter procedure Hari Oneill DO Work Phone: [facility] Comment on above: Hypothyroidism, acqu ired (Primary Dx); History of pulmonary embolus (PE); halfway current use of anticoagulant therapy; Dyslipidemia; IFG (impaired fasting glucose); Screening for prostate cancer; Diffuse large B-cell lymphoma, unspecified body region (HCC); Morbid obesity (HCC); Major depressive disorder, single episode, in full remission (HCC); Partial epilepsy, with intractable epilepsy, pharmacoresistant (HCC); Eating disorder, unspecified type; Bilateral leg edema Start: 11-27-2022 End: 11-27-[address] Nutrition Therapy Comment on above: Reassessment; Patien t Education Start: 11-17-2022 Telephone encounter Shanda holt APRN.CNP Work Phone: Gastroenterology Comment on above: Medication Authoriza tion Start: 11-14-2022 Telephone encounter Shanda holt APRN.CNP Work Phone: Gastroenterology Comment on above: Results Small intestinal amanda terial overgrowth (Primary Dx) Start: 11-07-2022 End: 11-07-2022 Nursing evaluation of patient and report Nurse [facility] Gastroenterology Comment on above: Diarrhea, unspecifie d type (Primary Dx) Start: 11-03-2022 Refill Hari cary DO Work Phone: [facility] Comment on above: Refill Request Start: 10-26-2022 Patient Msg [facility] Comment on above: Important Instructio ns reminder regarding your upcoming Breath Test Please follow Directions carefully in order to avoid your procedure being cancelled or rescheduled. Thank you Start: 10-20-2022 Telephone encounter Neli quan PA-C Work Phone: [facility] Comment on above: Results Critical INR 5.1 Start: 10-16-2022 End: 10-16-[address] Nutrition Therapy Comment on above: Assessment; Patient Education Start: 10-12-2022 End: 10-12-2022 Patient encounter procedure Vicenta Garcias [facility] Work Phone: [facility] Comment on above: Increased appetite ( Primary Dx); Medication management Start: 10-10-2022 Telephone encounter Vicenta dowling [facility] Work Phone: [facility] Comment on above: Appointment (Cost co ncerns) Start: 09-20-2022 Refill Hari Lainez raeann DO Work Phone: [facility] [place] Comment on above: Refill Request Start: 09-01-2022 Telephone encounter Hari Dominguez wesburt DO Work Phone: [facility] [place] Comment on above: Medication Problem Start: 08-29-2022 End: 08-29-2022 Patient encounter procedure Hari Oneill DO Work Phone: [facility] [place] Comment on above: Hypothyroidism, acqu ired (Primary Dx); Bloating; Vitamin D deficiency; Vitamin B12 deficiency; Eating disorder, unspecified type; Dysthymia; Lactose intolerance; Dyslipidemia Start: 08-11-2022 Telephone encounter Hari Julia Angelica solares DO Work Phone: [facility] [place] Comment on above: Patient Update Start: 07-10-2022 End: 07-10-2022 Patient encounter procedure Suyapa Lira APRN.PRODUCTION EXPERT Work Phone: [facility] [place] Comment on above: halfway current us e of anticoagulant therapy (Primary Dx); History of pulmonary embolus (PE); Hypoglycemia; Appetite increase; Hypothyroidism, acquired Start: 07-06-2022 Telephone encounter Suyapa Joseph APRN.PRODUCTION EXPERT Work Phone: [facility] [place] Comment on above: Results Start: 06-26-2022 Telephone encounter Hari Julia Dominguez beck DO Work Phone: [facility] [place] Comment on above: Anticoagulation Start: 06-21-2022 Telephone encounter Suyapa Joseph 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 Work Phone: [facility] [place] Comment on above: Results Start: 06-09-2022 Telephone encounter Dai devine 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 Work Phone: [facility] Comment on above: Results Start: 06-05-2022 Refill Dai Beverlyc yanet 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 Work Phone: [facility] [place] Comment on above: Refill Request Start: 06-01-2022 Orders Only Shanda STEPHENS RN.PRODUCTION EXPERT Work Phone: Gastroenterology Comment on above: Elevated fecal calpr otectin (Primary Dx) Start: 05-31-2022 Telephone encounter Dai devine APRN.PRODUCTION EXPERT Work Phone: [facility] [place] Comment on above: Anticoagulation Start: 05-24-2022 End: 05-24-2022 Patient encounter procedure Xavi Xie MD Work Phone: Neurology Comment on above: Partial epilepsy, wi th intractable epilepsy, pharmacoresistant (HCC) (Primary Dx) Start: 05-24-2022 Refill Dai Bebe holt 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 Work Phone: [facility] [place] Comment on above: Refill Request Start: 05-24-2022 Telephone encounter Hari solares DO Work Phone: [facility] Comment on above: Results Start: 05-22-2022 End: 05-22-2022 Patient encounter procedure Hari Oneill DO Work Phone: [facility] [place] Comment on above: Diarrhea, unspecifie d type (Primary Dx); Need for pneumococcal vaccination; Hypothyroidism, acquired; Bloating; Vitamin D deficiency; Vitamin B12 deficiency; Advance care planning; Dysthymia; Lactose intolerance Start: 05-09-2022 End: 05-09-2022 Patient encounter procedure Shanda Lainez APRN.PRODUCTION EXPERT Work Phone: Gastroenterology Comment on above: Diarrhea, unspecifie d type (Primary Dx) Refill Request Start: 04-25-2022 Refill Hari cary DO Work Phone: [facility] [place] Comment on above: Refill Request Start: 02-27-2022 Telephone encounter Hari solares DO Work Phone: [facility] [place] Comment on above: Results Start: 02-23-2022 Refill Mi Ortez Work Phone: Neurology Comment on above: Refill Request Start: 02-17-2022 End: 02-17-2022 Patient encounter procedure Suyapa Lira 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 Work Phone: [facility] [place] Comment on above: Diarrhea, unspecifie d type (Primary Dx) Start: 02-08-2022 Refill Suyapa austin 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 Work Phone: [facility] [place] Comment on above: Refill Request Start: 01-30-2022 Refill Hari cary DO Work Phone: [facility] [place] Comment on above: Prescription Refills Start: 01-27-2022 Refill Hari cary DO Work Phone: [facility] [place] Comment on above: Refill Request Start: 01-11-2022 Refill Keerthi RODRIGUEZN.PRODUCTION EXPERT Work Phone: Neurology Comment on above: Refill Request Start: 01-03-2022 Refill Dai Dempseycampos holt 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 Work Phone: [facility] [place] Comment on above: Refill Request Start: 12-15-2021 End: 12-15-2021 Patient encounter procedure Dai Dempseysybil 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 Work Phone: [facility] [place] Comment on above: Visit for suture rem oval (Primary Dx); Visit for wound check Start: 12-14-2021 Telephone encounter Hari harveyburt DO Work Phone: [facility] [place] Comment on above: Results Start: 12-13-2021 End: 12-13-2021 Patient encounter procedure Tereza Salvador JUNIOR SYSTEMS ANALYST.[facility] Work Phone: Gastroenterology Comment on above: Heartburn (Primary D x); Functional diarrhea; Fat malabsorption Start: 12-12-2021 End: 12-12-2021 Nursing evaluation of patient and report Mi Nurse Work Phone: [facility] [place] Comment on above: Diarrhea, unspecifie d type (Primary Dx); Bloating; Weight gain Start: 12-08-2021 End: 12-08-2021 Emergency department patient [facility] Start: 12-07-2021 Telephone encounter Hari solares DO Work Phone: [facility] Comment on above: Appointment Start: 12-02-2021 Telephone encounter Hari solares DO Work Phone: [facility] Comment on above: Anticoagulation Start: 11-29-2021 Telephone encounter Hari solares DO Work Phone: [facility] Comment on above: Anticoagulation Start: 11-21-2021 End: 11-21-2021 Patient encounter procedure Hari Oneill DO Work Phone: [facility] Comment on above: Bloating (Primary Dx ); Diarrhea, unspecified type; Weight gain; Urinary frequency; long term care pharmacist current use of anticoagulant therapy; Abnormal biliary HIDA scan; Hypothyroidism, acquired; Anxiety and depression; Appetite increase Start: 11-09-2021 End: 11-09-2021 Patient encounter procedure Xavi Xie MD Work Phone: Neurology Comment on above: Partial epilepsy, wi th intractable epilepsy, pharmacoresistant (HCC) (Primary Dx) Start: 10-31-2021 End: 10-31-2021 Patient encounter procedure Pepito Chan MD Work Phone: General Surgery Comment on above: Functional diarrhea (Primary Dx); Morbid obesity (HCC) Start: 10-28-2021 Refill Hari Julia cary DO Work Phone: [facility] Comment on above: Refill Request Start: 10-25-2021 Refill Hari cary DO Work Phone: [facility] Comment on above: Refill Request Start: 10-11-2021 Telephone encounter Hari solares DO Work Phone: [facility] Comment on above: Results Start: 09-12-2021 End: 09-12-[address] Hari Oneill Work Phone: [facility] Start: 08-08-2021 End: 08-08-2021 Subsequent hospital visit by physician [facility] Work Phone: Radiology Comment on above: Cough [R05.9] Start: 12-03-2020 End: 12-03-2020 Subsequent hospital visit by physician Xr [facility] Work Phone: Radiology Comment on above: Fever, unspecified f ever cause [R50.9] Start: 10-25-2020 End: 10-25-2020 Subsequent hospital visit by physician Xr [facility] Work Phone: Radiology Comment on above: Acute pain of right shoulder [M25.511] Procedures Date Procedure Procedure Detail Performing Clinician Start: 03-18-2025 Radiologic exam chest 2 views Paulie Geronimo APRN.PRODUCTION EXPERT Work Phone: Start: 03-12-[address] Maryanne Oneill DO Work Phone: Start: 03-11-2025 Serum inorganic phosphate measurement Dr. Hari Oneill DO Work Phone: Start: 03-10-[address] Hari Oneill DO Work Phone: Start: 03-08-[address] Hari Oneill DO Work Phone: Start: 03-08-[address] Hari Oneill DO Work Phone: Start: 03-08-2025 Iadna-dna/rna gi pthgn multiplex probe tq 6-11 Dr. Hari Oneill DO Work Phone: Start: 03-08-2025 Antibody to centromere measurement Dr. Bandar Oneill DO Work Phone: Comment on above: Previous reported result: TNP AIEdited b y: INFCE on 03/10/25:1308 AMENDED REPORT 03/10/25 1308 ANTI-CENT B previously reported as: Test not performed Start: 03-08-2025 Antibody to extractable nuclear antigen measurement Dr. Hari Oneill DO Work Phone: Comment on above: Previous reported result: TNP AIEdited b y: INFCE on 03/10/25:1308 AMENDED REPORT 03/10/25 1308 FRANCES Ab previously reported as: Test not performed Start: 03-08-2025 Antibody to KIMMIE-[address] Hari Oneill DO Work Phone: Comment on above: Previous reported result: TNP AIEdited b y: INFCE on 03/10/25:1308 AMENDED REPORT 03/10/25 1308 ANTI-KIMMIE previously reported as: Test not performed Start: 03-08-2025 Antibody to lupus La protein measurement Dr. Hari Oneill DO Work Phone: Start: 03-08-2025 Antibody to SS-A measurement Dr. Hari Oneill DO Work Phone: Start: 03-08-[address] Hari Oneill DO Work Phone: Comment on above: Previous reported result: TNP AIEdited b y: INFCE on 03/10/25:1308 AMENDED REPORT 03/10/25 1308 ANTICHROMATIN previously reported as: Test not performed Start: 03-08-2025 CLINICAL NURSE OCCUPATIONAL MEDICINE antibody measurement Dr. Hari Oneill DO Work Phone: Comment on above: Previous reported result: TNP AIEdited b y: INFCE on 03/10/25:1308 AMENDED REPORT 03/10/25 1308 CLINICAL NURSE OCCUPATIONAL MEDICINE Ab previously reported as: Test not performed Start: 03-05-2025 US scan of gallbladder Dr. Hari Oneill DO Work Phone: Start: 03-05-2025 Urnls dip stick/tablet reagent auto microscopy Dr. Hari Oneill DO Work Phone: Start: 03-05-[address] Maryanne Oneill DO Work Phone: Start: 03-05-2025 Computed tomography of abdomen and pelvis with intravenous contrast Dr. Hari Oneill DO Work Phone: Start: 03-02-[address] Maryanne Oneill DO Work Phone: Start: 02-28-[address] Hari Oneill DO Work Phone: Start: 02-27-2025 Iadna-dna/rna gi pthgn multiplex probe tq 6-11 Dr. Hari Oneill DO Work Phone: Start: 02-27-2025 Chloride measurement, urine Dr. Hari Oneill DO Work Phone: Start: 02-27-2025 Urea nitrogen measurement, urine Dr. Gold Oneill DO Work Phone: Start: 02-27-2025 Osmolality measurement, serum Dr. Hari Oneill DO Work Phone: Start: 02-27-[address] Leno Oneill DO Work Phone: Start: 02-27-[address] Hari Oneill DO Work Phone: Start: 02-27-2025 Computed tomography of abdomen and pelvis with intravenous contrast Dr. Hari Oneill DO Work Phone: Start: 02-27-2025 Urnls dip stick/tablet reagent auto microscopy Dr. Hari Oneill DO Work Phone: Start: 02-27-[address] Maryanne Oneill DO Work Phone: Start: 02-10-2025 Antibody screen HARI ONEILL Comment on above: Order Comment: Specimen Type: BLOOD SPEC IMEN Ordering Facility: [facility] Address: [address] [place] [id number] Performed By: #### T SCR #### [facility] CLIA [id number] [address] [place] [address] [place] Start: 09-30-2024 Colonoscopy flx dx w/collj spec when pfrmd Bere Hays 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 Work Phone: Start: 09-30-2024 Esophagogastroduodenoscopy transoral diagnostic Bere Bradly 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 Work Phone: Start: 09-30-2024 Colonoscopy Marjan Tariq MD Work Phone: Start: 08-15-2024 Hepatobiliary syst imaging including gallbladder Suyapa Lira 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 Work Phone: Start: 06-11-2024 Dup-scan xtr veins complete bilateral study Suyapa Lira 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 Work Phone: Start: 06-10-2024 Cul bact xcpt urine blood/stool aerobic isol Suyapa Lira 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 Work Phone: Start: 05-05-2024 Echo tthrc r-t 2d w/wom-mode compl spec&colr d Pio Mcclelland PA-C Work Phone: Start: 05-05-2024 LVEF TRANSTHORACIC ECHO Pio COYC Work Phone: Start: 07-11-2023 Hemoglobin A1c/Hemoglobin.total in Blood Hari Oneill DO Work Phone: Start: 02-13-2023 Radex ankle complete minimum 3 views Aurora Sweet 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 Work Phone: Start: 11-27-2022 Lipid 1996 panel - Serum or Plasma Nacho Xie MD Work Phone: Start: 11-07-2022 Breath hydrogen/methane test Shanda Pack 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 Work Phone: Start: 12-08-2021 X-ray of both feet Dr. Hari Oneill Work Phone: Start: 08-08-2021 Radiologic exam chest 2 views Pio Mcclelland PA-C Work Phone: Start: 05-03-2021 Colonoscopy Hari Oneill DO Work Phone: Start: 12-03-2020 Radiologic exam chest 2 views Neli R Ath y MANAV Work Phone: Start: 10-25-2020 Radex shoulder complete minimum 2 views Neli Lutz PA-C Work Phone: Plan of Treatment Date Care Activity Detail Author Start: 12-09-2031 [facility] Start: 09-30-2029 Screening for malignant neoplasm of colon [facility] Start: 03-18-2028 Diabetes Screening Diabetes Screening [facility] Start: 02-11-2028 Diabetes Screening Diabetes Screening [facility] Start: 11-28-2027 Lipid 1996 panel - Serum or Plasma Lipid Screening [facility] Start: 11-28-2027 Lipid panel Lipid Screening [facility] Start: 11-28-2027 LIPID SCREEN LIPID SCREEN [facility] Start: 10-22-2027 Diabetes Screening Diabetes Screening [facility] Start: 05-05-2027 Diabetes Screening Diabetes Screening [facility] Start: 03-11-2027 Diabetes Screening Diabetes Screening [facility] Start: 10-20-2026 PROSTATE CANCER SCREENING DISCUSSION PROSTATE CANCER SCREENING DISCUSSION [facility] Start: 07-11-2026 Diabetes Screening Diabetes Screening [facility] Start: 06-18-2026 LIPID SCREEN LIPID SCREEN [facility] Start: 05-03-2026 Colonoscopy COLONOSCOPY [facility] Start: 05-03-2026 COLORECTAL CANCER SCREENING COLORECTAL CANCER SCREENING [facility] Start: 05-03-2026 Screening for malignant neoplasm of colon [facility] Start: 04-22-2026 Diabetes Screening Diabetes Screening [facility] Start: 04-19-2026 Diabetes Screening Diabetes Screening [facility] Start: 04-18-2026 Diabetes Screening Diabetes Screening [facility] Start: 03-18-2026 Annual PCP Team Chronic Disease Visit Annual PCP Team Chronic Disease Visit [facility] Start: 03-18-2026 RSV Vaccine (1 - Risk 60-74 years 1-dose series) RSV Vaccine (1 - Risk 60-74 years 1-dose series) [facility] Comment on above: Postponed from 2013 (Declined at t his time) Start: 03-18-2026 Shingrix Vaccine (1 of 2) Shingrix Vaccine (1 of 2) [facility] Comment on above: Postponed from 2003 (Declined at t his time) Start: 03-04-2026 Annual PCP Team Chronic Disease Visit Annual PCP Team Chronic Disease Visit [facility] Start: 11-27-2025 DIABETES SCREEN DIABETES SCREEN [facility] Start: 10-21-2025 Annual PCP Team Chronic Disease Visit Annual PCP Team Chronic Disease Visit [facility] Start: 07-24-2025 Annual PCP Team Chronic Disease Visit Annual PCP Team Chronic Disease Visit [facility] Start: 07-10-2025 DIABETES SCREEN DIABETES SCREEN [facility] Start: 06-10-2025 Annual PCP Team Chronic Disease Visit Annual PCP Team Chronic Disease Visit [facility] Start: 05-29-2025 BP Controlled (<130/80) BP Controlled (<130/80) [facility] Start: 05-29-2025 Covid-19 Vaccine (3 - Moderna risk series) Covid-19 Vaccine (3 - Moderna risk series) [facility] Comment on above: Postponed from 02/02/2021 (Declined at t his time) Start: 05-22-2025 DIABETES SCREEN DIABETES SCREEN [facility] Start: 05-12-2025 End: 05-12-2025 Patient encounter procedure 05/12/2025 3:00 PM EDT Office Visit Family [facility] [address] [place] [address] Hari Oneill, DO [address] [place], [place] [id number] WELL[facility] Comment on above: WELLNESS Start: 04-06-2025 Influenza vaccination [facility] Start: 03-31-2025 End: 03-31-2025 Patient encounter procedure 03/31/2025 2:40 PM EDT Office Visit [facility] [address] [place] [address] Hari Oneill, DO [address] [facility] [place] [address] 3 Month follow up Family [facility] Comment on above: 3 Month follow up Start: 03-26-2025 End: 06-25-2025 PT panel - Platelet poor plasma by Coagulation assay PROTHROMBIN TIME Lab Routine History of pulmonary embolus (PE) 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) Expected: 03/26/2025, Expires: 06/25/2025 [facility] Work Phone: Comment on above: Expected: 03/26/2025, Expires: Start: 03-24-2025 End: 03-24-2025 Procedure PULM LAB [facility] Comment on above: Dx: ARNDT (dyspnea on exertion) [R06.09]; Borderline low oxygen saturation level Start: 03-18-2025 End: 06-16-2025 Comprehensive metabolic 2000 panel - Serum or Plasma [facility] Work Phone: Comment on above: Expected: 03/18/2025, Expires: Start: 03-18-2025 End: 06-16-2025 Ferritin [Mass/volume] in Serum or Plasma [facility] Comment on above: Expected: 03/18/2025, Expires: Start: 03-18-2025 End: 06-16-2025 Iron and Iron binding capacity panel - Serum or Plasma [facility] Comment on above: Expected: 03/18/2025, Expires: Start: 03-18-2025 End: 04-17-2026 LUNG VOLUMES LUNG VOLUMES PFT Routine ARNDT (dyspnea on exertion) Borderline low oxygen saturation level Expected: 03/18/2025, Expires: 04/17/2026 [facility] Comment on above: Expected: 03/18/2025, Expires: Start: 03-18-2025 End: 06-16-2025 Phosphate [Mass/volume] in Serum or Plasma [facility] Comment on above: Expected: 03/18/2025, Expires: Start: 03-18-2025 End: 06-16-2025 Thyrotropin [Units/volume] in Serum or Plasma [facility] Comment on above: Expected: 03/18/2025, Expires: Start: 03-18-2025 End: 06-16-2025 Thyroxine (T4) free [Mass/volume] in Serum or Plasma [facility] Comment on above: Expected: 03/18/2025, Expires: Start: 03-12-2025 Patient discharge [facility] Start: 03-11-2025 Annual PCP Team Chronic Disease Visit Annual PCP Team Chronic Disease Visit [facility] Start: 03-11-2025 [facility] Start: 03-10-2025 Application of intermittent pneumatic compression device [facility] Start: 03-09-2025 [facility] Start: 03-08-2025 Admission procedure [facility] Start: 03-07-2025 Laboratory test [facility] Start: 03-07-2025 End: 03-07-2025 [facility] Start: 03-07-2025 Ova and Parasites Ova and Parasites [facility] Start: 03-07-2025 Consultation [facility] Start: 03-07-2025 [facility] Start: 03-06-2025 Following clinical pathway protocol [facility] Start: 03-06-2025 Referral to gastroenterology service [facility] Start: 03-06-2025 Prothrombin time [facility] Start: 03-05-2025 Referral to service [facility] Start: 03-05-2025 Ambulation without limitation [facility] Start: 03-05-2025 Assessment of risk of venous thromboembolism [facility] Start: 03-05-2025 Insertion of catheter into peripheral vein [facility] Start: 03-05-2025 Measuring intake and output [facility] Start: 03-05-2025 Providing care according to standard [facility] Start: 03-05-2025 Referral to occupational therapist [facility] Start: 03-05-2025 Referral to service [facility] Start: 03-05-2025 [facility] Start: 03-05-2025 Following clinical pathway protocol [facility] Start: 03-05-2025 Verification routine [facility] Start: 03-05-2025 Admission procedure [facility] Start: 03-05-2025 Hospital admission, emergency, from emergency room, medical nature [facility] Start: 03-05-2025 Prothrombin time [facility] Start: 03-04-2025 End: 06-03-2025 CBC W Auto Differential panel - Blood COMPLETE BLOOD COUNT AND DIFFERENTIAL Lab Routine Diarrhea, unspecified type Expected: 03/04/2025, Expires: 06/03/2025 [facility] Comment on above: Expected: 03/04/2025, Expires: Start: 03-04-2025 End: 06-03-2025 Comprehensive metabolic 2000 panel - Serum or Plasma COMPREHENSIVE METABOLIC PANEL Lab Routine Hyponatremia Hypokalemia Expected: 03/04/2025, Expires: 06/03/2025 [facility] Work Phone: Comment on above: Expected: 03/04/2025, Expires: Start: 03-04-2025 End: 06-03-2025 Hemoglobin A1c in Blood HEMOGLOBIN A1C Lab Routine Polyuria Polydipsia Polyphagia Expected: 03/04/2025, Expires: 06/03/2025 [facility] Comment on above: Expected: 03/04/2025, Expires: Start: 03-04-2025 End: 06-03-2025 PT panel - Platelet poor plasma by Coagulation assay PROTHROMBIN TIME Lab Routine Presence of IVC filter Thrombosis Expected: 03/04/2025, Expires: 06/03/2025 [facility] Comment on above: Expected: 03/04/2025, Expires: Start: 03-04-2025 Prothrombin time [facility] Start: 03-02-2025 Patient discharge [facility] Start: 03-01-2025 Referral to service [facility] Start: 02-28-2025 Referral to general surgeon [facility] Start: 02-28-2025 Chart related administrative procedure [facility] Start: 02-27-2025 Following clinical pathway protocol [facility] Start: 02-27-2025 Assessment of risk of venous thromboembolism [facility] Start: 02-27-2025 Inhalation therapy procedure [facility] Start: 02-27-2025 Insertion of catheter into peripheral vein [facility] Start: 02-27-2025 Measuring intake and output [facility] Start: 02-27-2025 Providing care according to standard [facility] Start: 02-27-2025 Provision of activity privileges [facility] Start: 02-27-2025 Referral to gastroenterology service [facility] Start: 02-27-2025 Referral to service [facility] Start: 02-27-2025 [facility] Start: 02-27-2025 Hospital admission, emergency, from emergency room, medical nature [facility] Start: 02-27-2025 Verification routine [facility] Start: 02-27-2025 Admission procedure [facility] Start: 02-27-2025 [facility] Start: 02-12-2025 Annual PCP Team Chronic Disease Visit Annual PCP Team Chronic Disease Visit [facility] Start: 02-04-2025 Annual PCP Team Chronic Disease Visit Annual PCP Team Chronic Disease Visit [facility] Start: 02-02-2025 Influenza vaccination Influenza Vaccine (#1) [facility] Comment on above: Postponed from 04/06/2024 (Declined at t his time) Start: 01-28-2025 Annual PCP Team Chronic Disease Visit Annual PCP Team Chronic Disease Visit [facility] Start: 01-27-2025 End: 01-27-2025 Patient encounter procedure 01/27/2025 2:40 PM EDT Office Visit Family [facility] [address] [place] [address] Hari Oneill DO [address] [place], [place] [id number] 3 Month follow up Family [facility] Comment on above: 3 Month follow up Start: 12-03-2024 End: 12-03-2024 Patient encounter procedure 12/03/2024 1:30 PM EDT Office Visit Neurology [address] [place] [address] Xavi Xie MD [address] [place] [address] 6 months Neurology Comment on above: 6 months Start: 11-30-2024 End: 03-01-2025 Thyrotropin [Units/volume] in Serum or Plasma THYROID STIMULATING HORMONE Lab Routine Hypothyroidism, acquired Expected: 11/30/2024, Expires: 03/01/2025 [facility] Work Phone: Comment on above: Expected: 11/30/2024, Expires: Start: 11-30-2024 End: 03-01-2025 Thyroxine (T4) free [Mass/volume] in Serum or Plasma T4 FREE/FREE THYROXINE Lab Routine Hypothyroidism, acquired Expected: 11/30/2024, Expires: 03/01/2025 [facility] Comment on above: Expected: 11/30/2024, Expires: Start: 11-11-2024 End: 11-11-2024 Patient encounter procedure 11/11/2024 1:00 PM EDT Office Visit [facility] [address] [place] [address] Suyapa Lira APRN.PRODUCTION EXPERT [address] [place] [address] 3 week recheck legs Family [facility] Comment on above: 3 week recheck legs Start: 10-21-2024 End: 01-20-2025 ADH/ARGININE VASOPRS [facility] Work Phone: Comment on above: Expected: 10/21/2024, Expires: Start: 10-20-2024 DIABETES SCREEN DIABETES SCREEN [facility] Start: 10-08-2024 End: 10-08-2024 Patient encounter procedure 10/08/2024 11:30 AM EST Office Visit General Surgery [address] [place] [address] Bere Hays APRN.PRODUCTION EXPERT [address] [place] [address] 09-30 colonoscopy follow up General Surgery Comment on above: 09-30 colonoscopy follow up Start: 09-30-2024 End: 09-30-2024 Patient encounter procedure 09/30/2024 12:30 PM EST Appointment Ambulatory Surgery [address] [place], [place] [id number] Marjan Tariq MD [address] [place] [id number] Nausea [R11.0]; Abdominal bloating [R14.0]; Abdominal fullness [R19.8]; Early satiety [R68.81]; Diarrhea, unspecified type [R19.7] Ambulatory Surgery Comment on above: Nausea [R11.0]; Abdominal bloating [R14. 0]; Abdominal fullness [R19.8]; Early satiety [R68.81]; Diarrhea, unspecified type [R19.7] Start: 09-29-2024 End: 09-29-2024 Patient encounter procedure Ambulatory Surgery Start: 09-25-2024 End: 09-25-2024 Patient encounter procedure 09/25/2024 8:00 AM EST Appointment Nuclear Medicine [address] [place] [address] Nausea [R11.0]; Weight gain [R63.5]; Overeating [R63.2]; Frequent bowel movements [R19.4] Nuclear Medicine Comment on above: Nausea [R11.0]; Weight gain [R63.5]; Ove reating [R63.2]; Frequent bowel movements [R19.4] Start: 09-23-2024 End: 09-23-2024 Patient encounter procedure 09/23/2024 11:30 AM EST Office Visit Vascular Surgery [address] [place] [address] Eyad Novoa, DO [address] [place] [address] follow up Vascular Surgery Comment on above: follow up Start: 09-15-2024 End: 09-15-2024 Nutrition therapy 09/15/2024 10:15 AM EST Education Nutrition Therapy [address] [place], [place] [address] Audra Chauhan [address] [place] [address] Nausea [R11.0]; Weight gain [R63.5]; Overeating [R63.2]; Frequent bowel movements [R19.4] Nutrition Therapy Comment on above: Nausea [R11.0]; Weight gain [R63.5]; Ove reating [R63.2]; Frequent bowel movements [R19.4] Start: 09-09-2024 End: 09-09-2024 Patient encounter procedure 09/09/2024 11:15 AM EST Office Visit Vascular Surgery [address] [place] [address] Eyad Novoa, DO [address] [place], [place] [id number] follow up Vascular Surgery Comment on above: follow up Start: 09-02-2024 End: 09-02-2024 Patient encounter procedure 09/02/2024 11:00 AM EST Office Visit Vascular Surgery [address] [facility] [place], [place] [address] Eyad Novoa, DO [address] [place], [place] [id number] Bilateral leg edema [R60.0]; Bilateral leg pain [M79.604, M79.605] Vascular Surgery Comment on above: Bilateral leg edema [R60.0]; Bilateral l eg pain [M79.604, M79.605] Start: 08-29-2024 End: 08-29-2024 Patient encounter procedure 08/29/2024 10:45 AM EST Office Visit General Surgery [address] [place] [address] Jayesh Hernandez MD [address] [place] [address] Calculus of gallbladder without cholecystitis without obstruction [K80.20] General Surgery Comment on above: Calculus of gallbladder without cholecys titis without obstruction [K80.20] Start: 08-27-2024 End: 08-27-2024 Patient encounter procedure 08/27/2024 12:30 PM EST Office Visit Vasculary Surgery [address] [place] [address] Bilateral leg edema [R60.0]; Bilateral leg pain [M79.604, M79.605] Vasculary Surgery Comment on above: Bilateral leg edema [R60.0]; Bilateral l eg pain [M79.604, M79.605] Start: 08-18-2024 End: 08-18-2024 Nutrition therapy 08/18/2024 1:45 PM EST Education Nutrition Therapy [address] [facility] [place] [address] Audra Chauhan, RD [address] [place] [address] Nausea [R11.0]; Weight gain [R63.5]; Overeating [R63.2]; Frequent bowel movements [R19.4] Nutrition Therapy Comment on above: Nausea [R11.0]; Weight gain [R63.5]; Ove reating [R63.2]; Frequent bowel movements [R19.4] Start: 08-06-2024 Medicare Advantage Annual Wellness Visit Medicare Advantage Annual Wellness Visit [facility] Start: 07-28-2024 End: 07-28-2024 Patient encounter procedure 07/28/2024 10:00 AM EST Appointment Radiology [address] [place], [place] [address] Nausea [R11.0]; Weight gain [R63.5]; Overeating [R63.2]; Frequent bowel movements [R19.4] Radiology Comment on above: Nausea [R11.0]; Weight gain [R63.5]; Ove reating [R63.2]; Frequent bowel movements [R19.4] Start: 07-24-2024 End: 10-23-2024 Prostate Specific Ag Free [Mass/volume] in Serum or Plasma [facility] Work Phone: Comment on above: Expected: 07/24/2024, Expires: Start: 07-24-2024 End: 10-23-2024 PT panel - Platelet poor plasma by Coagulation assay [facility] Comment on above: Expected: 07/24/2024, Expires: Start: 07-11-2024 Annual PCP Team Chronic Disease Visit Annual PCP Team Chronic Disease Visit [facility] Start: 06-16-2024 End: 06-16-2024 Patient encounter procedure 06/16/2024 12:00 PM EST Office Visit [facility] [place] [address] [place] [address] Suyapa Lira APRN.PRODUCTION EXPERT [address] [place] [address] cellulitis follow up [facility] Comment on above: cellulitis follow up Start: 06-11-2024 End: 06-11-2024 Patient encounter procedure 06/11/2024 5:00 PM EST Appointment [facility] [address] [place] [address] Cellulitis of lower extremity, unspecified laterality [L03.119]; Bilateral leg edema [R60.0] [facility] Comment on above: Cellulitis of lower extremity, unspecifi ed laterality [L03.119]; Bilateral leg edema [R60.0] Start: 06-10-2024 End: 06-10-2024 Patient encounter procedure 06/10/2024 2:20 PM EST Office Visit Family [facility] [place] [address] [place] [address] Suyapa Lira APRN.PRODUCTION EXPERT [address] [place], [place] [address] follow up - cellullitis Family [facility] Comment on above: follow up - cellullitis Start: 06-10-2024 End: 09-09-2024 PT panel - Platelet poor plasma by Coagulation assay PROTHROMBIN TIME Lab Routine Other acute pulmonary embolism without acute cor pulmonale (HCC) Expected: 06/10/2024, Expires: 09/09/2024 [facility] Work Phone: Comment on above: Expected: 06/10/2024, Expires: Start: 06-04-2024 End: 09-03-2024 Potassium [Moles/volume] in Serum or Plasma POTASSIUM Lab Routine Hypokalemia Expected: 06/04/2024, Expires: 09/03/2024 [facility] Comment on above: Expected: 06/04/2024, Expires: Start: 05-29-2024 End: 05-29-2024 Patient encounter procedure 05/29/2024 1:00 PM EDT Office Visit Internal [facility] [place] [address] [place] [address] Skyler Adams APRN.DAIRY HUSBANDRY WORKER [address] [place] [address] follow up [facility] [place] Comment on above: follow up Start: 05-14-2024 End: 05-14-2024 Patient encounter procedure 05/14/2024 1:00 PM EDT Office Visit Neurology [address] [place] [address] Xavi Xie MD [address] [place], [place] [id number] f/u Neurology Comment on above: f/u Start: 05-12-2024 End: 08-11-2024 PT panel - Platelet poor plasma by Coagulation assay [facility] Work Phone: Comment on above: Expected: 05/12/2024, Expires: Start: 05-01-2024 Annual PCP Team Chronic Disease Visit Annual PCP Team Chronic Disease Visit [facility] Start: 05-01-2024 BP Controlled (<130/80) BP Controlled (<130/80) [facility] Start: 04-06-2024 Influenza vaccination [facility] Start: 04-02-2024 ANNUAL PCP TEAM CHRONIC DISEASE VISIT ANNUAL PCP TEAM CHRONIC DISEASE VISIT [facility] Start: 04-01-2024 End: 04-01-2024 Patient encounter procedure 04/01/2024 1:40 PM EDT Office Visit Family [facility] [place] [address] [place] [address] Suyapa Lira APRN.PRODUCTION EXPERT [address] [place] [address] 1 week F/U Hematuria, Anemia, Hypokalemia [facility] [place] Comment on above: 1 week F/U Hematuria, Anemia, Hypokalemi a Start: 03-25-2024 End: 03-25-2024 Patient encounter procedure 03/25/2024 11:20 AM EDT Office Visit Cardiology [address] [place], [place] [address] Newly recognized heart murmur [R01.1] Cardiology Comment on above: Newly recognized heart murmur [R01.1] Start: 03-17-2024 End: 06-16-2024 Basic metabolic 2000 panel - Serum or Plasma BASIC METABOLIC PANEL Lab Routine Hypokalemia Expected: 03/17/2024, Expires: 06/16/2024 [facility] Comment on above: Expected: 03/17/2024, Expires: 4 Start: 03-17-2024 End: 06-16-2024 CBC W Auto Differential panel - Blood COMPLETE BLOOD COUNT AND DIFFERENTIAL Lab Routine Gross hematuria Iron deficiency anemia due to chronic blood loss Expected: 03/17/2024, Expires: 06/16/2024 [facility] Work Phone: Comment on above: Expected: 03/17/2024, Expires: 4 Start: 03-17-2024 End: 06-16-2024 Ferritin [Mass/volume] in Serum or Plasma FERRITIN Lab Routine Gross hematuria Expected: 03/17/2024, Expires: 06/16/2024 [facility] Comment on above: Expected: 03/17/2024, Expires: 4 Start: 03-17-2024 End: 06-16-2024 Iron and Iron binding capacity panel - Serum or Plasma IRON AND TIBC Lab Routine Gross hematuria Expected: 03/17/2024, Expires: 06/16/2024 [facility] Comment on above: Expected: 03/17/2024, Expires: 4 Start: 03-17-2024 End: 06-16-2024 Magnesium [Mass/volume] in Serum or Plasma MAGNESIUM Lab Routine Hypokalemia Expected: 03/17/2024, Expires: 06/16/2024 [facility] Comment on above: Expected: 03/17/2024, Expires: Start: 03-17-2024 End: 06-16-2024 PT panel - Platelet poor plasma by Coagulation assay PROTHROMBIN TIME Lab Routine Gross hematuria Expected: 03/17/2024, Expires: 06/16/2024 [facility] Comment on above: Expected: 03/17/2024, Expires: Start: 03-14-2024 BP CONTROLLED (<130/80) BP CONTROLLED (<130/80) [facility] in Start: 03-11-2024 End: 06-10-2024 Comprehensive metabolic 2000 panel - Serum or Plasma [facility] Comment on above: Expected: 03/11/2024, Expires: Start: 03-11-2024 End: 06-10-2024 Urinalysis complete panel - Urine URINALYSIS WITH MICROSCOPIC, REFLEX CULTURE Lab Routine Diarrhea, unspecified type Expected: 03/11/2024, Expires: 06/10/2024 [facility] Comment on above: Expected: 03/11/2024, Expires: Start: 02-14-2024 BP CONTROLLED (<130/80) BP CONTROLLED (<130/80) [facility] in Start: 02-13-2024 End: 02-13-2024 Patient encounter procedure 02/13/2024 2:20 PM EDT Office Visit [facility] [address] [place], [place] [id number] Suyapa Lira, JONATHAN.PRODUCTION EXPERT [address] [place], [place] [address] 1 week follow up [facility] Comment on above: 1 week follow up Start: 02-05-2024 End: 02-05-2024 Patient encounter procedure 02/05/2024 1:00 PM EDT Office Visit [facility] [place] [address] [facility] [place], [place] [id number] Suyapa Lira, JONATHAN.PRODUCTION EXPERT [address] [place] [address] 1 week follow up [facility] Comment on above: 1 week follow up Start: 02-03-2024 Influenza vaccination Influenza Vaccine (#1) [facility] Comment on above: Postponed from 04/06/2023 (Declined at t his time) Start: 01-29-2024 End: 01-29-2024 Patient encounter procedure 01/29/2024 12:40 PM EDT Office Visit [facility] [place] [address] [facility], [place] [id number] Hari Oneill DO [address] [facility] [place] [address] 3 month follow up [facility] Comment on above: 3 month follow up Start: 12-19-2023 End: 03-19-2024 LACOSAMIDE LACOSAMIDE Lab Routine Partial epilepsy, with intractable epilepsy, pharmacoresistant (HCC) Expected: 12/19/2023, Expires: 03/19/2024 [facility] Comment on above: Expected: 12/19/2023, Expires: Start: 12-19-2023 End: 03-19-2024 lamoTRIgine [Mass/volume] in Serum or Plasma LAMOTRIGINE Lab Routine Partial epilepsy, with intractable epilepsy, pharmacoresistant (HCC) Expected: 12/19/2023, Expires: 03/19/2024 [facility] Comment on above: Expected: 12/19/2023, Expires: Start: 12-19-2023 End: 03-19-2024 levETIRAcetam [Mass/volume] in Serum or Plasma LEVETIRACETAM Lab Routine Partial epilepsy, with intractable epilepsy, pharmacoresistant (HCC) Expected: 12/19/2023, Expires: 03/19/2024 [facility] Work Phone: Comment on above: Expected: 12/19/2023, Expires: Start: 12-19-2023 End: 03-19-2024 Zonisamide [Mass/volume] in Serum or Plasma ZONISAMIDE Lab Routine Partial epilepsy, with intractable epilepsy, pharmacoresistant (HCC) Expected: 12/19/2023, Expires: 03/19/2024 [facility] Comment on above: Expected: 12/19/2023, Expires: Start: 12-19-2023 End: 12-19-2023 Patient encounter procedure 12/19/2023 1:30 PM EDT Office Visit Neurology [address] [place] [address] Xavi Xie MD [address] [place] [address] f/u Neurology Comment on above: f/u Start: 11-28-2023 ANNUAL PCP TEAM CHRONIC DISEASE VISIT ANNUAL PCP TEAM CHRONIC DISEASE VISIT [facility] Start: 10-21-2023 BP CONTROLLED (<130/80) BP CONTROLLED (<130/80) [facility] Start: 08-29-2023 ANNUAL PCP TEAM CHRONIC DISEASE VISIT ANNUAL PCP TEAM CHRONIC DISEASE VISIT [facility] Start: 08-29-2023 BP CONTROLLED (<130/80) BP CONTROLLED (<130/80) [facility] Start: 07-12-2023 End: 10-11-2023 PT panel - Platelet poor plasma by Coagulation assay PROTHROMBIN TIME/PT Lab Routine Chronic anticoagulation Expected: 07/12/2023, Expires: 10/11/2023 [facility] Work Phone: Comment on above: Expected: 07/12/2023, Expires: Start: 07-10-2023 ANNUAL PCP TEAM CHRONIC DISEASE VISIT ANNUAL PCP TEAM CHRONIC DISEASE VISIT [facility] Start: 07-10-2023 BP CONTROLLED (<130/80) BP CONTROLLED (<130/80) [facility] Start: 05-24-2023 BP CONTROLLED (<130/80) BP CONTROLLED (<130/80) [facility] Start: 05-22-2023 ANNUAL PCP TEAM CHRONIC DISEASE VISIT ANNUAL PCP TEAM CHRONIC DISEASE VISIT [facility] Start: 05-01-2023 End: 07-01-2023 Thyrotropin [Units/volume] in Serum or Plasma TSH BLD Lab Routine Hypothyroidism, acquired Expected: 05/01/2023, Expires: 07/01/2023 [facility] Work Phone: Comment on above: Expected: 05/01/2023, Expires: Start: 05-01-2023 End: 07-01-2023 Thyroxine (T4) free [Mass/volume] in Serum or Plasma T4 FREE/FREE THYROX Lab Routine Hypothyroidism, acquired Expected: 05/01/2023, Expires: 07/01/2023 [facility] Work Phone: Comment on above: Expected: 05/01/2023, Expires: 3 Start: 05-01-2023 End: 07-01-2023 Triiodothyronine (T3) Free [Mass/volume] in Serum or Plasma T3 FREE BLD Lab Routine Hypothyroidism, acquired Expected: 05/01/2023, Expires: 07/01/2023 [facility] Work Phone: Comment on above: Expected: 05/01/2023, Expires: 3 Start: 04-11-2023 End: 06-11-2023 PT panel - Platelet poor plasma by Coagulation assay PROTHROMBIN TIME/PT Lab Routine Chronic anticoagulation Expected: 04/11/2023, Expires: 06/11/2023 [facility] Work Phone: Comment on above: Expected: 04/11/2023, Expires: 3 Start: 04-06-2023 Influenza vaccination [facility] Start: 03-14-2023 End: 05-14-2023 LACOSAMIDE LACOSAMIDE Lab Routine Partial epilepsy, with intractable epilepsy, pharmacoresistant (HCC) Expected: 03/14/2023, Expires: 05/14/2023 [facility] Work Phone: Comment on above: Expected: 03/14/2023, Expires: Start: 03-14-2023 End: 05-14-2023 lamoTRIgine [Mass/volume] in Serum or Plasma LAMOTRIGINE Lab Routine Partial epilepsy, with intractable epilepsy, pharmacoresistant (HCC) Expected: 03/14/2023, Expires: 05/14/2023 [facility] Work Phone: Comment on above: Expected: 03/14/2023, Expires: Start: 03-14-2023 End: 05-14-2023 Zonisamide [Mass/volume] in Serum or Plasma ZONISAMIDE Lab Routine Partial epilepsy, with intractable epilepsy, pharmacoresistant (HCC) Expected: 03/14/2023, Expires: 05/14/2023 [facility] Work Phone: Comment on above: Expected: 03/14/2023, Expires: 3 Start: 02-19-2023 FECAL OCCULT BLOOD FECAL OCCULT BLOOD [facility] Start: 02-19-2023 Screening for malignant neoplasm of colon Fecal Occult Blood [facility] Start: 02-17-2023 ANNUAL PCP TEAM CHRONIC DISEASE VISIT ANNUAL PCP TEAM CHRONIC DISEASE VISIT [facility] Start: 02-02-2023 Influenza vaccination INFLUENZA (#1) [facility] Comment on above: Postponed from 04/06/2022 (Declined at t his time) Start: 12-15-2022 ANNUAL PCP TEAM CHRONIC DISEASE VISIT ANNUAL PCP TEAM CHRONIC DISEASE VISIT [facility] Start: 12-15-2022 BP CONTROLLED (<130/80) BP CONTROLLED (<130/80) [facility] Start: 11-28-2022 End: 01-28-2023 Comprehensive metabolic 2000 panel - Serum or Plasma COMP METABOLIC PANEL Lab Routine Dyslipidemia Expected: 11/28/2022, Expires: 01/28/2023 [facility] Work Phone: Comment on above: Expected: 11/28/2022, Expires: 3 Start: 11-28-2022 End: 01-28-2023 Hemoglobin A1c in Blood HGB A1C Lab Routine Eating disorder, unspecified type Lactose intolerance Dyslipidemia Expected: 11/28/2022, Expires: 01/28/2023 [facility] Work Phone: Comment on above: Expected: 11/28/2022, Expires: 3 Start: 11-28-2022 End: 01-28-2023 Lipid 1996 panel - Serum or Plasma LIPID PANEL BASIC Lab Routine Dyslipidemia Expected: 11/28/2022, Expires: 01/28/2023 [facility] Work Phone: Comment on above: Expected: 11/28/2022, Expires: 3 Start: 11-28-2022 End: 01-28-2023 Thyrotropin [Units/volume] in Serum or Plasma TSH BLD Lab Routine Lactose intolerance Dyslipidemia Expected: 11/28/2022, Expires: 01/28/2023 [facility] Work Phone: Comment on above: Expected: 11/28/2022, Expires: 3 Start: 11-21-2022 ANNUAL PCP TEAM CHRONIC DISEASE VISIT ANNUAL PCP TEAM CHRONIC DISEASE VISIT [facility] Start: 10-24-2022 FECAL OCCULT BLOOD FECAL OCCULT BLOOD [facility] Start: 10-20-2022 ANNUAL PCP TEAM CHRONIC DISEASE VISIT ANNUAL PCP TEAM CHRONIC DISEASE VISIT [facility] Start: 10-20-2022 Urine microalbumin profile DTAP,TDAP,TD (2 - Tdap) [facility] Comment on above: Postponed from 06/01/2010 (Declined at t his time) Start: 07-10-2022 End: 09-09-2022 CBC panel - Blood by Automated count [facility] Work Phone: Comment on above: Expected: 07/10/2022, Expires: 3 Start: 07-10-2022 End: 09-09-2022 Comprehensive metabolic 2000 panel - Serum or Plasma [facility] Work Phone: Comment on above: Expected: 07/10/2022, Expires: 3 Start: 07-10-2022 End: 09-09-2022 Hemoglobin A1c in Blood [facility] Work Phone: Comment on above: Expected: 07/10/2022, Expires: 3 Start: 07-10-2022 End: 09-09-2022 Thyrotropin [Units/volume] in Serum or Plasma [facility] Work Phone: Comment on above: Expected: 07/10/2022, Expires: 3 Start: 07-10-2022 End: 09-09-2022 Thyroxine (T4) free [Mass/volume] in Serum or Plasma [facility] Work Phone: Comment on above: Expected: 07/10/2022, Expires: 3 Start: 07-10-2022 End: 09-09-2022 Triiodothyronine (T3) [Mass/volume] in Serum or Plasma [facility] Work Phone: Comment on above: Expected: 07/10/2022, Expires: 3 Start: 06-17-2022 BP CONTROLLED (<130/80) BP CONTROLLED (<130/80) [facility] Start: 05-24-2022 End: 07-24-2022 LACOSAMIDE [facility] Work Phone: Comment on above: Expected: 05/24/2022, Expires: 2 Start: 05-24-2022 End: 07-24-2022 lamoTRIgine [Mass/volume] in Serum or Plasma [facility] Work Phone: Comment on above: Expected: 05/24/2022, Expires: 2 Start: 05-24-2022 End: 07-24-2022 Zonisamide [Mass/volume] in Serum or Plasma [facility] Work Phone: Comment on above: Expected: 05/24/2022, Expires: 2 Start: 05-22-2022 End: 07-22-2022 25-hydroxyvitamin D3 [Mass/volume] in Serum or Plasma [facility] Work Phone: Comment on above: Expected: 05/22/2022, Expires: 2 Start: 04-06-2022 Influenza vaccination [facility] Start: 02-02-2022 Influenza vaccination INFLUENZA (#1) [facility] Comment on above: Postponed from 04/06/2021 (Declined at t his time) Start: 11-21-2021 End: 01-21-2022 ADH/ARGININE VASOPRS ADH/ARGININE VASOPRS Lab Routine Diarrhea, unspecified type Weight gain Urinary frequency Expected: 11/21/2021, Expires: 01/21/2022 [facility] Work Phone: Comment on above: Expected: 11/21/2021, Expires: 2 Start: 11-21-2021 End: 01-21-2022 CELIAC SCREEN WITH REFLEX CELIAC SCREEN WITH REFLEX Lab Routine Diarrhea, unspecified type Bloating Weight gain Expected: 11/21/2021, Expires: 01/21/2022 [facility] Work Phone: Comment on above: Expected: 11/21/2021, Expires: 2 Start: 11-21-2021 End: 01-21-2022 Cortisol [Mass/volume] in Serum or Plasma CORTISOL BLD Lab Routine Diarrhea, unspecified type Weight gain Urinary frequency Expected: 11/21/2021, Expires: 01/21/2022 [facility] Work Phone: Comment on above: Expected: 11/21/2021, Expires: 2 Start: 11-21-2021 End: 01-21-2022 LACTOSE TOLERANCE LACTOSE TOLERANCE Lab Routine Diarrhea, unspecified type Bloating Weight gain Expected: 11/21/2021, Expires: 01/21/2022 [facility] Work Phone: Comment on above: Expected: 11/21/2021, Expires: 2 Start: 11-21-2021 End: 01-21-2022 Prolactin [Mass/volume] in Serum or Plasma PROLACTIN BLD Lab Routine Diarrhea, unspecified type Weight gain Urinary frequency Expected: 11/21/2021, Expires: 01/21/2022 [facility] Work Phone: Comment on above: Expected: 11/21/2021, Expires: 2 Start: 11-21-2021 End: 01-21-2022 PT panel - Platelet poor plasma by Coagulation assay PROTHROMBIN TIME/PT Lab Routine halfway current use of anticoagulant therapy Expected: 11/21/2021, Expires: 01/21/2022 [facility] Work Phone: Comment on above: Expected: 11/21/2021, Expires: 2 Start: 09-12-2021 Patient referral [facility] Work Phone: Start: 08-06-2021 ADVANCE DIRECTIVE DISCUSSION ADVANCE DIRECTIVE DISCUSSION [facility] Start: 02-02-2021 COVID-19 VACCINE (3 - Moderna risk 4-dose series) COVID-19 VACCINE (3 - Moderna risk 4-dose series) [facility] Start: 02-02-2021 COVID-19 VACCINE (3 - Moderna risk series) COVID-19 VACCINE (3 - Moderna risk series) [facility] Start: 2018 PNEUMOVAX AGE 65 AND OVER WITH 5YR LOOKBACK (#1) PNEUMOVAX AGE 65 AND OVER WITH 5YR LOOKBACK (#1) [facility] Start: 2013 RSV Vaccine (1 - 1-dose 60+ series) RSV Vaccine (1 - 1-dose 60+ series) [facility] Start: 2013 RSV Vaccine (1 - Risk 60-74 years 1-dose series) RSV Vaccine (1 - Risk 60-74 years 1-dose series) [facility] Start: 2003 SHINGRIX VACCINE (1 of 2) SHINGRIX VACCINE (1 of 2) [facility] Start: 1998 COLOGUARD (FIT-DNA) COLOGUARD (FIT-DNA) [facility] Start: [address] COLONOGRAPHY [facility] Start: 1998 Screening for malignant neoplasm of colon [facility] Start: 1998 SIGMOIDOSCOPY SIGMOIDOSCOPY [facility] Start: 1972 SHINGRIX VACCINE (1 of 2) SHINGRIX VACCINE (1 of 2) [facility] Start: 1959 PNEUMOCOCCAL: 65+ (1 - PCV) PNEUMOCOCCAL: 65+ (1 - PCV) [facility] [id number]. tumor marker [Units/volume] in Serum or Plasma [facility] Bacteria identified in Wound by Culture ABSCESS AND WOUND CULTURE WITH GRAM STAIN Microbiology Routine Cellulitis of lower extremity, unspecified laterality Bilateral leg edema 06/10/2024 3:41 PM EST [facility] Breath hydrogen/meth ane test BREATH TEST - LACTULOSE Procedures Routine Diarrhea, unspecified type Bloating Weight gain Ordered: 11/21/2021 [facility] Work Phone: Comment on above: Ordered: 11/21/2021 End: 05-09-2023 BREATH TEST GLUCOSE BREATH TEST GLUCOSE Endoscopy Routine Diarrhea, unspecified type 1 Occurrences starting 05/09/2022 until 05/09/2023 [facility] Work Phone: Comment on above: 1 Occurrences starting 05/09/2022 until 05/09/2023 Calprotectin [Mass/m ass] in Stool CALPROTECTIN,FECAL Lab Routine Functional diarrhea Fat malabsorption Ordered: 12/13/2021 [facility] Work Phone: Comment on above: Ordered: 12/13/2021 Calprotectin [Mass/m ass] in Stool CALPROTECTIN,FECAL Lab Routine Diarrhea, unspecified type Ordered: 05/09/2022 [facility] Work Phone: Comment on above: Ordered: 05/09/2022 Calprotectin [Mass/m ass] in Stool CALPROTECTIN,FECAL Lab Routine Elevated fecal calprotectin Ordered: 06/01/2022 [facility] Work Phone: Comment on above: Ordered: 06/01/2022 Cancer Ag 19-9 [Units/volume] in Serum or Plasma [facility] Carcinoembryonic Ag [Mass/volume] in Serum or Plasma [facility] Chitobioside IgA Ab [Units/volume] in Serum or Plasma by Immunoassay [facility] Clostridioides diffi cile toxin genes [Presence] in Stool by ZACHARY with probe detection C. DIFFICILE PCR Lab Routine Diarrhea, unspecified type Ordered: 02/17/2022 [facility] Work Phone: Comment on above: Ordered: 02/17/2022 Clostridioides diffi cile toxin genes [Presence] in Stool by ZACHARY with probe detection C. DIFFICILE PCR Lab Routine Diarrhea, unspecified type Ordered: 05/09/2022 [facility] Work Phone: Comment on above: Ordered: 05/09/2022 Clostridioides diffi cile toxin genes [Presence] in Stool by ZACHARY with probe detection C. DIFFICILE PCR Lab Routine Diarrhea, unspecified type Ordered: 03/11/2024 [facility] Comment on above: Ordered: 03/11/2024 End: 03-11-2025 Echocardiography ECHO Cardiology Routine Newly recognized heart murmur 1 Occurrences starting 03/11/2024 until 03/11/2025 [facility] Work Phone: Comment on above: 1 Occurrences starting 03/11/2024 until 03/11/2025 End: 08-29-2025 EGD DIAGNOSTIC EGD DIAGNOSTIC Endoscopy Routine Calculus of gallbladder without cholecystitis without obstruction Nausea Abdominal fullness Abdominal bloating Early satiety 1 Occurrences starting 08/29/2024 until 08/29/2025 [facility] Work Phone: Comment on above: 1 Occurrences starting 08/29/2024 until 08/29/2025 End: 09-29-2025 EGD DIAGNOSTIC EGD DIAGNOSTIC Endoscopy Routine Nausea Abdominal bloating Abdominal fullness Early satiety Diarrhea, unspecified type 1 Occurrences starting 09/29/2024 until 09/29/2025 [facility] Comment on above: 1 Occurrences starting 09/29/2024 until 09/29/2025 ENTERIC BACTERIAL PA SHARYN BY PCR ENTERIC BACTERIAL PANEL BY PCR Lab Routine Diarrhea, unspecified type Ordered: 02/17/2022 [facility] Work Phone: Comment on above: Ordered: 02/17/2022 ENTERIC BACTERIAL PA SHARYN BY PCR ENTERIC BACTERIAL PANEL BY PCR Lab Routine Diarrhea, unspecified type Ordered: 05/09/2022 [facility] Work Phone: Comment on above: Ordered: 05/09/2022 ENTERIC BACTERIAL PA SHARYN BY PCR ENTERIC BACTERIAL PANEL BY PCR Lab Routine Diarrhea, unspecified type Ordered: 03/11/2024 [facility] Comment on above: Ordered: 03/11/2024 FECAL FAT STOOL, QUANT FECAL FAT STOOL, QUANT Lab Routine Diarrhea, unspecified type Bloating Weight gain Ordered: 11/21/2021 [facility] Work Phone: Comment on above: Ordered: 11/21/2021 FECAL LACTOFERRIN/LEUKOCYTES FECAL LACTOFERRIN/LEUKOCYTES Lab Routine Functional diarrhea Fat malabsorption Ordered: 12/13/2021 [facility] Work Phone: Comment on above: Ordered: 12/13/2021 End: 08-29-2025 Flexible sigmoidoscopy study COLONOSCOPY DIAGNOSTIC Endoscopy Routine Nausea Abdominal fullness Abdominal bloating Early satiety Diarrhea, unspecified type 1 Occurrences starting 08/29/2024 until 08/29/2025 [facility] Comment on above: 1 Occurrences starting 08/29/2024 until 08/29/2025 End: 09-29-2025 Flexible sigmoidoscopy study COLONOSCOPY DIAGNOSTIC Endoscopy Routine Nausea Abdominal bloating Abdominal fullness Early satiety Diarrhea, unspecified type 1 Occurrences starting 09/29/2024 until 09/29/2025 [facility] Work Phone: Comment on above: 1 Occurrences starting 09/29/2024 until 09/29/2025 Giardia lamblia+Cryptosporidium sp Ag [Presence] in Stool by Immunoassay CRYPTOSPORIDIUM AND GIARDIA ANTIGENS BY EIA Microbiology Routine Diarrhea, unspecified type Ordered: 05/09/2022 [facility] Work Phone: Comment on above: Ordered: 05/09/2022 Gliadin peptide IgA Ab [Units/volume] in Serum [facility] Gliadin peptide IgG Ab [Units/volume] in Serum [facility] Hemoglobin.gastroint estina l.lower [Presence] in Stool by Immunoassay FECAL OCCULT BLOOD TEST Lab Routine Diarrhea, unspecified type 02/19/2022 1:26 PM EDT [facility] Work Phone: Laminaribioside IgG Ab [Units/volume] in Serum or Plasma by Immunoassay [facility] Mannobioside IgG Ab [Units/volume] in Serum or Plasma by Immunoassay [facility] Measurement of funga l antibody [facility] Measurement of immunoglobulin A in serum specimen [facility] Neutrophil cytoplasm ic Ab.classic [Units/volume] in Serum [facility] Neutrophil cytoplasm ic Ab.perinuclear.atypical [Titer] in Serum by Immunofluorescence [facility] End: 08-23-2025 NM Biliary ducts and Gallbladder Views for patency of biliary structures and ejection fraction W sincalide and W radionuclide IV NM HEPATOBILIARY W EF AND/OR RX Radiology Routine Nausea Weight gain Overeating Frequent bowel movements 1 Occurrences starting 07/24/2024 until 08/23/2025 [facility] Comment on above: 1 Occurrences starting 07/24/2024 until 08/23/2025 Ova and parasites identified in Unspecified specimen by Light microscopy OVA + PARA MICROSCOPIC Microbiology Routine Diarrhea, unspecified type Ordered: 02/17/2022 [facility] Work Phone: Comment on above: Ordered: 02/17/2022 Ova OR parasites identification [facility] P-ANCA measurement [facility] PANC ELASTASE, FECAL PANC ELASTA SE, FECAL Lab Routine Functional diarrhea Fat malabsorption Ordered: 12/13/2021 [facility] Work Phone: Comment on above: Ordered: 12/13/2021 PANC ELASTASE, FECAL PANC ELASTA SE, FECAL Lab Routine Diarrhea, unspecified type Ordered: 05/09/2022 [facility] Work Phone: Comment on above: Ordered: 05/09/2022 Patient Education [facility] Work Phone: Patient referral [facility] Work Phone: End: 05-26-2023 PT panel - Platelet poor plasma by Coagulation assay PROTHROMBIN TIME/PT Lab Routine long term care pharmacist current use of anticoagulant therapy Other pulmonary embolism without acute cor pulmonale, unspecified chronicity (HCC) 2x per week for 10 Occurrences starting 05/26/2022 until 05/26/2023 [facility] Work Phone: Comment on above: 2x per week for 10 Occurrences starting 05/26/2022 until 05/26/2023 End: 04-17-2026 SPIROMETRY - BASELINE AND POST DILATOR SPIROMETRY - BASELINE AND POST DILATOR PFT Routine ARNDT (dyspnea on exertion) Borderline low oxygen saturation level 1 Occurrences starting 03/18/2025 until 04/17/2026 [facility] Comment on above: 1 Occurrences starting 03/18/2025 until 04/17/2026 Tissue Pathology bio psy report [facility] Work Phone: Comment on above: Release Upon Ordering for 1 Occurrences starting 09/30/2024, 1 completed Tissue transglutamin ase IgA Ab [Units/volume] in Serum [facility] End: 08-23-2025 US Abdomen RUQ US ABD RIGHT UPPER QUADRANT Radiology Routine Nausea Weight gain Overeating Frequent bowel movements 1 Occurrences starting 07/24/2024 until 08/23/2025 [facility] Comment on above: 1 Occurrences starting 07/24/2024 until 08/23/2025 US Abdomen RUQ US ABD RIGHT UPP ER QUADRANT Radiology Routine Nausea Weight gain Overeating Frequent bowel movements 07/28/2024 10:30 AM EST [facility] Work Phone: End: 02-14-2024 US LEG VEIN DVT UNL VAS LAB US LEG VEIN DVT UNL VAS LAB Vascular Lab STAT Pain 1 Occurrences starting 02/13/2023 until 02/14/2024 [facility] Work Phone: Comment on above: 1 Occurrences starting 02/13/2023 until 02/14/2024 End: 06-10-2025 US Lower extremity veins - bilateral US LEG VEIN DVT ANGEL [facility] Vascular Lab STAT Cellulitis of lower extremity, unspecified laterality Bilateral leg edema 1 Occurrences starting 06/10/2024 until 06/10/2025 [facility] Work Phone: Comment on above: 1 Occurrences starting 06/10/2024 until 06/10/2025 End: 07-24-2025 US.doppler Extremity arteries - bilateral for physiologic artery study PVR ANK PRESS [facility] Vascular Lab Routine Bilateral leg edema Bilateral leg pain 1 Occurrences starting 07/24/2024 until 07/24/2025 [facility] Comment on above: 1 Occurrences starting 07/24/2024 until 07/24/2025 [facility] Immunizations Immunization Date Immunization Notes Care Provider Fa cili 05-22-2022 pneumococcal (PCV20) vaccine, 20 valent (PREVNAR 20) Hari Oneill DO Work Phone: [facility] Work Phone: 05-22-2022 pneumococcal Conjuga te, unspecified formulation Hari Oneill DO Work Phone: [facility] Work Phone: 12-08-2021 tetanus toxoid, redu estella diphtheria toxoid, and acellular pertussis vaccine, adsorbed Dr. Hari Oneill Work Phone: [facility] 01-05-2021 Twyla (Moderna) Dr. Hari Oneill DO Work Phone: [facility] 12-08-2020 Twyla (Moderna) Dr. Hari Oneill DO Work Phone: [facility] 05-07-2019 influenza virus vaccine, unspecified formulation Xavi Xie MD Work Phone: [facility] 04-02-2018 influenza, injectabl e, quadrivalent, preservative free Hari Oneill DO Work Phone: [facility] 05-21-2017 influenza, injectabl e, quadrivalent, contains preservative Hari Oneill DO Work Phone: [facility] Work Phone: 05-21-2017 influenza, injectabl e, quadrivalent, preservative free Dr. Hari Oneill DO Work Phone: [facility] 05-15-2016 influenza, seasonal, injectable Hari Oneill DO Work Phone: [facility] Work Phone: 05-10-2015 influenza, injectabl e, quadrivalent, preservative free Dr. Hari Oneill DO Work Phone: [facility] 05-10-2015 influenza, seasonal, injectable Hari Oneill DO Work Phone: [facility] Work Phone: 07-10-2014 influenza, injectabl e, quadrivalent, preservative free Dr. Hari Oneill DO Work Phone: [facility] 07-10-2014 influenza, seasonal, injectable Hari Oneill DO Work Phone: [facility] Work Phone: 04-07-[address] Hari Oneill Work Phone: [facility] 04-07-2013 influenza, seasonal, injectable, preservative free Tereza Salvador APRN.CNP Work Phone: [facility] 06-01-2000 diphtheria and tetan us toxoids, adsorbed for pediatric use Hari Oneill DO Work Phone: [facility] Work Phone: Payers Date Payer Category Payer Self-pay [id number] 2022 Medicare (Managed Care) [id number]. [id number] 2022 Medicare [id number] 2018 Medicare [id number] 2018 Medicare [id number] 2014 Medicaid SELF PAY INSURANCE [id number] Unknown [id number] [id number] Unknown [id number] 2.16.840.1.088880.3.579.2.462 Unknown [id number] 2.16.840.1.400736.3.579.2.462 Unknown [id number] 2.16.840.1.476868.3.579.2.462 Unknown [id number] 2.16.840.1.797459.3.579.2.462 Unknown [id number] 2.16.840.1.034316.3.579.2.462 Unknown [id number] 2.16.840.1.843803.3.579.2.462 Unknown [id number] 2.16.840.1.872460.3.579.2.462 Unknown [id number] 2.16.840.1.336480.3.579.2.462 Unknown [id number] 2.16.840.1.933508.3.579.2.462 Unknown [id number] 2.16.840.1.502658.3.579.2.462 Unknown [id number] 2.16.840.1.814431.3.579.2.462 Unknown [id number] 2.16.840.1.458112.3.579.2.462 Unknown [id number] 2.16.840.1.277610.3.579.2.462 Unknown [id number] 2.16.840.1.444331.3.579.2.462 Unknown [id number] 2.16.840.1.353907.3.579.2.462 Unknown [id number] 2.16.840.1.689662.3.579.2.462 Unknown [id number] 2.16.840.1.460023.3.579.2.462 Unknown [id number] 2.16.840.1.134566.3.579.2.462 Unknown [id number] 2.16.840.1.708443.3.579.2.462 Unknown [id number] 2.16.840.1.088079.3.579.2.462 Unknown [id number] 2.16.840.1.812757.3.579.2.462 Unknown [id number] 2.16.840.1.757618.3.579.2.462 Unknown [id number] 2.16.840.1.024635.3.579.2.462 Unknown [id number] 2.16.840.1.341430.3.579.2.462 Social History Date Type Detail Facility Start: 03-27-2011 End: 05-22-2022 Tobacco smoking status [facility] Never smoked tobacco [facility] Work Phone: Start: 10-20-2021 End: 08-29-2024 Alcohol intake Current non-drinker of alcohol (finding) [facility] Start: 1955 Sex Assigned At Not on file [facility] Start: 09-25-2020 End: 07-10-2022 Exposure to SARS-CoV-2 (event) Not sure [facility] Start: 12-08-2021 Tobacco smoking stat us FLIS Unknown if ever smoked [facility] Work Phone: Start: 02-08-2021 None [facility] Start: 09-17-2019 Spouse/ Signif icant Other [facility] Start: 02-08-2021 Non-smoker [facility] Start: 1955 Sex Assigned At Male [facility] Start: 03-27-2011 End: 05-22-2022 Tobacco use and exposure Smokeless tobacco non-user [facility] Start: 01-08-2023 End: 02-13-2023 History of Social function [facility] Start: 01-08-2023 End: 02-13-2023 Tobacco use panel [facility] Start: 07-07-2012 Adult Depression Screening Assessment 2 [facility] How hard is it for y ou to pay for the very basics like food, housing, medical care, and heating Not very hard [facility] (I/We) worried oscar er (my/our) food would run out before (I/we) got money to buy more. Never true [facility] In the past 12 month s, was there a time when you were not able to pay the mortgage or rent on time? No [facility] Start: 10-08-2024 End: 03-18-2025 Alcoholic beverage intake Ex-drinker (finding) [facility] Medical Equipment Procedure Code Equipment Code Equipment Origin al Text Equipment Identifier Dates [place] Cap Product Line (Non Magnetic) - [id number] Start: 01-22-2014 [place] 25mm - [id number] Start: 01-22-2014 Blank [place] t Cap Non Magnetic - [id number] Start: 01-22-2014 Electrd Dpth 8ct 0.8x26.5x3.5m - [id number] Start: 01-22-2014 Elctrd Dpth 16ct 0.8x54.5x3.5m - [id number] Start: 01-22-2014 16 [place] Electrode - [id number] Start: 01-22-2014 16 [place] Dep[place] Electrode - [id number] Start: 01-22-2014 16 [place] Depthal[place] Electrode - [id number] Start: 01-22-2014 16 [place] Dep[place] Electrode - [id number] Start: 01-22-2014 Elctrd Dpth 10ct 0.8x33.5x3.5m - [id number] Start: 01-22-2014 Elctrd Dpth 12ct 0.8x40.5x3.5m - [id number] Start: 01-22-2014 16 [place] Depthalon Electrode - [id number] Start: 01-22-2014 Port Implantable Power Port 6fr - [id number] Start: 04-11-2012 Comment on above: Description: PowerPo rt [id number] Start: 07-10-2022 End: 04-02-2023 Comment on above: Test blood sugar(s) 2 times daily. Dx: Other DM Code E16.2 Insulin: No Test blood sugar(s) 1 times daily. Dx: Other DM Code E16.2 Insulin: No Goals Date Patient Goal Desired Activity /State Personal health goal Comment on above: Formatting of this n ote might be different from the original. States I want to get around my house better for the summer Personal health goal Comment on above: Formatting of this n ote might be different from the original. States I want to get around my house better for the summer Functional Status Date Assessment Result Facility 03-12-2025 Functional status [facility] Work Phone: 03-02-2025 Functional status [facility] Work Phone: 04-23-2023 Are you deaf, or do you have serious difficulty hearing No 04/23/2023 1:05 PM Nancy Frazier RN No [facility] 04-23-2023 Are you blind, or do you have serious difficulty seeing, even when wearing glasses Yes 04/23/2023 1:05 PM EDT Nancy Seals, DARREN Yes [facility] 04-23-2023 Do you have serious difficulty walking or climbing stairs Yes 04/23/2023 1:05 PM EDT Nancy Seals, DARREN Yes [facility] 04-23-2023 Do you have difficul ty dressing or bathing Yes 04/23/2023 1:05 PM EDT Nancy Seals, DARREN Yes [facility] 04-23-2023 Because of a physica l, mental, or emotional condition, do you have difficulty doing errands alone such as visiting a physician's office or shopping Yes 04/23/2023 1:05 PM EDT Nancy Seals, DARREN Yes [facility] Mental Status Date Assessment Result Facility 03-12-2025 Cognitive function Voice/Name [facility] Work Phone: 03-02-2025 Cognitive function Voice/Name [facility] Work Phone: 04-23-2023 Because of a physica l, mental, or emotional condition, do you have serious difficulty concentrating, remembering, or making decisions Yes 04/23/2023 1:05 PM EDT Nancy Seals, DARREN Yes [facility] Clinical Notes 09-29-2020 to 03-19-2025 Addendum Note - Paulie Geronimo APRN.PRODUCTION EXPERT - 03/19/2025 5:24 PM EDTAddendum Note - Paulie Geronimo APRN.CNP - 03/19/2025 5:24 PM EDTGStacey hughes RT(R) - 03/18/2025 2:20 PM EDT Note Date & Type Note Facility 03-19-2025 Note Addended by: PAULIE GERONIMO on: 03/19/2025 05:24 PM Modules accepted: Orders [facility] 03-19-2025 Miscellaneous Notes Addended by: PAULIE GERONIMO on: 03/19/2025 05:24 PM Modules accepted: Orders Pt notified and has follow up with Dr. Singh. Anna Andrade MA Tried to reach pt, no answer and no option to leave message. Will need to try again later. Copy of XR Chest faxed to Dr. Singh's office with attention to gaseous loops. Anna Andrade MA ----- Message from Paulie Geronimo APRN.PRODUCTION EXPERT sent at 03/18/2025 6:38 PM EDT ----- Please senhd copy of this result attention to the gaseous loops to Dr Boss office, see if he has a follow up scheduled with him and let him know the lungs didn't show any abnormalities on the chest xray. Thank you ----- Message ----- From: Radiology, Oru In Sent: 03/18/2025 3:30 PM EDT To: Paulie Geronimo APRN.PRODUCTION EXPERT documented in this encounter [facility] 03-19-2025 Telephone encount er Note Pt notified and has follow up with Dr. Singh. Anna Andrade MA [facility] 03-19-2025 Telephone encount er Note Tried to reach pt, no answer and no option to leave message. Will need to try again later. Copy of XR Chest faxed to Dr. Singh's office with attention to gaseous loops. Anna Andrade MA [facility] 03-19-2025 Telephone encount er Note ----- Message from Paulie Geronimo APRN.CNP sent at 03/18/2025 6:38 PM EDT ----- Please senhd copy of this result attention to the gaseous loops to Dr Boss office, see if he has a follow up scheduled with him and let him know the lungs didn't show any abnormalities on the chest xray. Thank you ----- Message ----- From: Radiology, Oru In Sent: 03/18/2025 3:30 PM EDT To: Paulie Geronimo APRN.CNP [facility] 03-18-2025 History of Presen t illness Narrative Radiology Service Progress Note PATIENT NAME: Eder Breen DATE OF SERVICE: March 18, 2025 TIME: 2:05 PM PATIENT IDENTITY VERIFICATION COMPLETED USING TWO (2) IDENTIFIERS: Name and Date of confirmed by patient verbally. FALL SCREENING: Has the patient had 2 falls in the last year or 1 fall with injury or currently using an Ambulatory Assistive Device (Walker, Cane, Wheelchair, Crutches, etc.)? No PATIENT GENDER DATA: Assigned male at PATIENT RELEVANT IMPLANT DATA REVIEWED: Yes PATIENT PRESENTS WITH AN IMPLANTABLE OR ATTACHED HIGH SCHOOL FOREIGN LANGUAGE TUTOR: No RADIOLOGY DEPARTMENT: General X-ray: Exam(s) Completed: Chest X-Ray PERIPHERAL IV DATA: Not applicable SIGNED BY: RT Live(R) March 18, 2025 2:05 PM documented in this encounter [facility] 03-18-2025 Paulie Virgen APRN.CNP - 03/18/2025 1:05 PM EDT Get your labs drawn on way out today Make sure you have your repeat colonoscopy with Dr Singh scheduled or set up (recommended 3 months so around June) Legs: Apply triamcinolone cream every morning after lightly washing legs with antibacterial soap and warm water, pat dry At night, lightly wash legs with antibacterial soap and warm water, pat dry, apply aquaphor For your next visit, please bring all medications you are taking to the office for a good medication reconciliation documented in this encounter [facility] 03-18-2025 History of Presen t illness Narrative This is a 69 year old male who presents today with: Barron Breen is a 69-year-old male with follow up from recent hospital stays HISTORY OF PRESENT ILLNESS: Fatigue: - Persistent fatigue, described as miserable and tired. - Difficulty with mobility and energy levels. - Recent hospitalizations since early February. - Dyspnea noted by spouse during ambulation. Depression: - Reports feeling depressed due to fatigue and inability to perform daily activities. - Spouse describes Barron as negative., always negative about everything Epilepsy: - Last seizure reportedly over a year ago. - Currently takes multiple anti-seizure medications - History of grand mal seizures; spouse reports severe episodes requiring emergency care. - Previous consideration for brain surgery due to bilateral scarring. - last neuro visit 05/2024 and should've followed up in November DVT/PE: - History of multiple DVTs and PEs. - Currently on warfarin with a complex dosing schedule; Barron reports confusion about dosing when he has to take different doses on different days and wishes it was more simple - Recent hospital discharge instructions included 7.5 mg daily - Managed by Dr. Oneill/team - denies s/sx of bleeding WILBERTO: - Denies current use of CPAP machine due to past seizure triggers Recent Hospitalization: - Discharged with amoxicillin BID for 10 days and potassium packets. - Reports improvement in bowel movements, attributing changes to medication. - Recent nausea, but improved with small meals. - Taking furosemide 40 mg in the morning and 20 mg after lunch; unclear if dosage was adjusted during hospitalization. - Reports significant weight loss, approximately 40 lbs, attributed to fluid loss. Lymphoma: - History of diffuse large B-cell lymphoma, reportedly in remission. - No recent follow-up with oncology. Medication Management: - Taking pyridostigmine 30 mg daily, metoprolol, and fluoxetine 40 mg daily. - Spouse inquires about resuming compression stockings for leg edema. - Using triamcinolone cream for leg skin care; spouse inquires about additional moisturizing with Vaseline. Diet and Exercise: - Recent knee surgery; limited mobility. - Attempting to exercise at [employer]; attended once post-surgery per - Appetite described as poor by spouse; eating small meals and snacks to manage nausea. - Enjoys specific foods like gyros and TV dinners. - down 24# since February 10 Hospital records reviewed, when asking patient and about meds not on discharge list or things done there they were not good historians or understand it [facility] 02/27-03/02, then 03/05? 03/09-03/12 Repeat colonoscopy in 3 months to reassess healing per Dr Boss orders Normal EGD Hospital records look like furosemide decreased to 20mg daily, possibly due to hypokalemia and hyponatremia. Bujt per patient he is taking it how he always has Fluoxetine was also not on discharge list, unsure if stopped due to hyponatremia or just missed. Per patient he is taking it how he always has. Most Recent 03/20/22 - 03/18/25 09/30/24 10/21/24 08:46 02/09/25 13:51 02/10/25 03/04/25 14:01 03/18/25 12:53 Weight 267 lb 12.8 oz (121.5 kg) 03/18/25 12:53 283 lb 15.2 oz (128.8 kg) 290 lb (131.5 kg) 291 lb 10.7 oz (132.3 kg) 291 lb (132 kg) 279 lb (126.6 kg) 267 lb 12.8 oz (121.5 kg) PAST MEDICAL HISTORY: PAST MEDICAL HISTORY Diagnosis Date Abdominal pain, lower Acute gastritis without mention of hemorrhage Advance care planning 05/22/2022 Dylon to help with planning Arthritis Basal cell carcinoma DDD (degenerative disc disease), cervical Deep vein thrombophlebitis of leg (HCC) hx of Depression Diffuse large B cell lymphoma (HCC) 03/2012 duodenal Diverticulosis of colon (without mention of hemorrhage) Duodenitis without mention of hemorrhage GERD (gastroesophageal reflux disease) H. pylori infection 11/2013 Hemorrhoids History of DVT/PE 01/12/2013 - history of saddle PE in 2010 - IVC filter placed in 2011 possible in the setting of increased risk of falls while on coumadin - coumadin use complaicated by GI bleeding in the setting of supratherapeutic INR, warfarin stopped in 11/2012 - Repeat DVT involving common iliac/femoral and IVD distal to the filter in 01/2013 while off coumadin, restarted on coumadin - Currently sub therapeutic on coumadin PLAN: -Increase coumadin to 7.5 mg daily - continue coumadin for life in the setting of PE Continue to bridge with lovenox as INR subtherapeutic. 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 sclerosis 07/2013 by echo WILBERTO (obstructive sleep apnea) Pulmonary embolism (HCC) hx of S/P insertion of IVC (inferior vena caval) filter thrombosed (S/P Lysis) Seizures (HCC) Snoring SUMMARY 01/12/2013 Mr Breen is a 58 y M with a medical history significant for: - Grade 3 Follicilar lymphoma, 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 s/p clinical remission and now on Rituximab every 2 months , O/P oncologist Dr Ruiz - Epilepsy since , grand mal seizures s/p SEEG placement on 01/23 - 01/27 with localzation of seizure focus to the left temporal lobe, no grand mal seizures this year, follows up with Dr Xie for epilepsy, on Lacosamide, lamotrigine, keppra and clonazepam with confusion regarding his current medications - History of DVT PE, saddle PE 2010 started on coumadin c/b GI bleed in the setting of supratherapeutic INR, IVC filter placement 04/2012 in the setting of GI bleed and fall risk but continued on coumadin till 11/2012 . Recent DVT in the common iliac, femoral and IVC distal to the IVD filter in 01/2013 while off coumadin. Currently on coumadin and no bleeding episodes/ falls Who is transferred from [facility] for the further evaluation of his dizziness which started about 3 -4 days ago and is now re Traumatic brain injury (HCC) There is a questionabale history of around age of 3 year he was dropped on the driveway may have lost consciousness Traumatic brain injury (HCC) There is a questionabale history of around age of 3 year he was dropped on the driveway may have lost consciousness Unspecified epilepsy without mention of intractable epilepsy (HCC) Vitamin B12 deficiency 11/2013 Vitamin D deficiency normal level 11/2011 PAST SURGICAL HISTORY Procedure Laterality Date APPENDECTOMY HX COLONOSCOPY 09/30/2024 COLONOSCOPY FLX DX W/COLLJ SPEC WHEN PFRMD 12/27/2009 Colonoscopy COLONOSCOPY FLX DX W/COLLJ SPEC WHEN PFRMD 05/03/2021 ESOPHAGOGASTRODUODENOSCOPY TRANSORAL DIAGNOSTIC 02/12/2012 EGD ESOPHAGOGASTRODUODENOSCOPY TRANSORAL DIAGNOSTIC 03/27/[address] [facility] inpt ESOPHAGOGASTRODUODENOSCOPY TRANSORAL DIAGNOSTIC 06/04/2012 EGD ESOPHAGOGASTRODUODENOSCOPY TRANSORAL DIAGNOSTIC N/A 11/13/2016 ESOPHAGOGASTRODUODENOSCOPY TRANSORAL DIAGNOSTIC 02/15/2018 EGD ESOPHAGOGASTRODUODENOSCOPY TRANSORAL DIAGNOSTIC 05/03/2021 INSJ TUNNELED CTR VAD W/SUBQ PORT AGE 3 YR/> 04/11/2012 INTRO. OF CATH SUP/INF VENA CAVA 04/09/2012 IVC FILTER PAST SURGICAL HISTORY OF ? right eye blind, injured during seizure ALLERGIES Doxycycline and Lactose Intolerance (Lactase) [Lactase] MEDICATIONS Current Outpatient Medications Medication Sig amoxicillin-clavulanate potassium (AUGMENTIN) 875-125 mg per tablet Take 1 tablet by mouth two times a day. metoclopramide HCl (REGLAN) 5 mg tablet Take 5 mg by mouth every 6 hours. pyRIDostigmine bromide 30 mg tab Take 1 tablet by mouth once daily. potassium-sodium phosphates (PHOS-NAK) 280-160-250 mg pwpk Take 1 packet by mouth two times a day. tamsulosin (FLOMAX) 0.4 mg Take 1 capsule by mouth daily at bedtime. levothyroxine (LEVOXYL) 88 mcg tablet Take 1 tablet by mouth daily before breakfast. Take on empty stomach 30 minutes before eating. For Thyroid lacosamide (VIMPAT) 200 mg Take 1 tablet by mouth daily with lunch AND 1 tablet every evening. Do all this for 180 days. meloxicam (MOBIC) 15 mg tablet Take 1 tablet by mouth once daily. With food. lansoprazole (PREVACID) 30 mg capsule Take 1 capsule by mouth once daily. furosemide (LASIX) 20 mg tablet Take 1 tablet by mouth daily after lunch. triamcinolone acetonide (KENALOG) 0.1 % cream Apply to affected area daily at bedtime. On legs for stasis dermatitis L.acidophilus-L.rhamnosus (PROBIOTIC) 15 billion cell capsule Take 1 capsule by mouth daily at bedtime. Non-Adherent Bandage (CURITY ABDOMINAL PAD) 5 X 9 bndg Apply 1 application to affected area once daily. zonisamide (ZONEGRAN) 100 mg capsule Take 4 capsules by mouth daily after lunch AND 2 capsules daily at bedtime. levETIRAcetam (KEPPRA) 750 mg tablet Take 2 tablets by mouth two times a day. lamoTRIgine (LAMICTAL) 200 mg tablet Take 1 tablet by mouth daily with lunch AND 1 tablet every evening. potassium chloride (K-TAB) 10 mEq tablet Take 1 tablet by mouth daily with breakfast. FLUoxetine (PROZAC) 40 mg capsule Take 1 capsule by mouth once daily. in the morning for mood warfarin (COUMADIN) 7.5 mg tablet Hospital discharge 03/12 says 7.5mg every day furosemide (LASIX) 40 mg tablet Take 1 tablet by mouth once daily. Take in the morning white petrolatum (AQUAPHOR ORIGINAL) 41 % topical ointment Apply to affected area once daily. No current facility-administered medications for this visit. FAMILY HISTORY Problem Relation Age of Onset Stroke Mother Cancer Mother patient states he came from an infection due to a back injury SOCIAL HISTORY[1] REVIEW OF SYSTEMS Constitutional: (+) fatigue Respiratory: (-) shortness of breath Gastrointestinal: (+) nausea Genitourinary: (+) urinary incontinence, (+) urinary urgency Musculoskeletal: (-) pain Skin: (+) dry skin Neurological: (+) numbness, (-) seizures Psychiatric: (+) depressed mood See HPI EXAM: BP 130/64 (BP Site: Right Arm, BP Position: Sitting, BP Cuff Size: Large Adult) Pulse 71 Resp 16 Wt 121.5 kg (267 lb 12.8 oz) SpO2 92% BMI 36.32 kg/m PHYSICAL EXAM: General Appearance: disheveled, poor hygiene and clothing dirty/food soiled Skin: skin appears pale especially under eyes and face. Lungs: diminished, faint rhonchi middle lobes. Heart: RRR without murmur, gallop, or rubs. No ectopy. Abdomen: Abdomen firm upper/mid-epigastric, non-tender. Bowel sounds hypoactive but present Extremities: bilateral stasis dermatitis, luke and dry skin/scaly. No open areas noted currently and no current seeping. Tight nonpitting edema ASSESSMENT/PLAN: 1. Chronic pseudo-obstruction of colon - ICD9: 564.89, ICD10: K59.81 (primary diagnosis) - AMOXICILLIN 875 MG-POTASSIUM CLAVULANATE 125 MG TABLET total 10 days from hospital discharge - METOCLOPRAMIDE 5 MG TABLET- unsure future plan, but was sent 30 days of this on discharge from hospital - PYRIDOSTIGMINE BROMIDE 30 MG TABLET- per Dr Friend, needs to follow up with him - COMPREHENSIVE METABOLIC PANEL - COMPLETE BLOOD COUNT AND DIFFERENTIAL 2. Bilateral leg edema - ICD9: 782.3, ICD10: R60.0 3. Venous stasis dermatitis of both lower extremities - ICD9: 454.1, ICD10: I87.2 - AQUAPHOR ORIGINAL 41 % TOPICAL OINTMENT - per patient and this is much improved and his weight loss is likely from a lot of water weight he's lost saying how his legs were edematous all up this thighs and he was seeping previously before hospitalizations. 4. Hypokalemia - ICD9: 276.8, ICD10: E87.6 5. Hyponatremia - ICD9: 276.1, ICD10: E87.1 6. Hypophosphataemia - ICD9: 275.3, ICD10: E83.39 - POTASSIUM, SODIUM PHOSPHATES 280 MG-160 MG-250 MG ORAL POWDER PACKET - COMPREHENSIVE METABOLIC PANEL - COMPLETE BLOOD COUNT AND DIFFERENTIAL - needs repeat labs to assess his medications fully - PHOSPHORUS INORGANIC- was given a prescription for this at hospital/discharge - 7. ARNDT (dyspnea on exertion) - ICD9: 786.09, ICD10: R06.09 8. Borderline low oxygen saturation level - ICD9: 790.91, ICD10: R79.81 - per and patient, he is exertionally dyspneic all the time -SP02 92% today - COMPLETE BLOOD COUNT AND DIFFERENTIAL - SPIROMETRY - BASELINE AND POST DILATOR - LUNG VOLUMES - XR CHEST 2V FRONTAL/LAT - IRON AND TIBC - FERRITIN 9. Fatigue, unspecified type - ICD9: 780.79, ICD10: R53.83 - COMPREHENSIVE METABOLIC PANEL - COMPLETE BLOOD COUNT AND DIFFERENTIAL - PROTHROMBIN TIME - THYROID STIMULATING HORMONE - T4 FREE/FREE THYROXINE - XR CHEST 2V FRONTAL/LAT - IRON AND TIBC - FERRITIN 10. History of pulmonary embolus (PE) - ICD9: V12.55, ICD10: Z86.711 11. 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 Anticoagulation management encounter - ICD9: V58.83, V58.61, ICD10: Z51.81, Z79.01 - COMPLETE BLOOD COUNT AND DIFFERENTIAL - PROTHROMBIN TIME - WARFARIN 7.5 MG TABLET current order daily from hospital. Needs INR level. - IRON AND TIBC - FERRITIN - COMPREHENSIVE METABOLIC PANEL 12. Major depressive disorder, recurrent, moderate (HCC) - ICD9: 296.32, ICD10: F33.1 - complains of depression today, remains on fluoxetine. Ordered labs, may need rotated due to possible effects with fluoxetine and hyponatremia and symptoms not controlled. Discussed treatment plan and patient voices understanding. Patient's questions answered appropriately. Medications and potential side effects were discussed and patient voices understanding. Return to the office as scheduled or as needed for worsening/no improvement. Paulie Geronimo APRN.SAMIR I spent a total of 70 minutes on the date of the service which included preparing to see the patient, [id number] patient care, completing clinical documentation, obtaining and/or reviewing separately obtained history, performing a medically appropriate examination, counseling and educating the patient/family/caregiver, and ordering medications, tests, or procedures. Extensive review of hospital records. Medication reconciliation attempted. Recording using ImageVision software for draft documentation of the visit was discussed with the patient/authorized rental representative; all questions welcomed and answered. Patient/authorized rental representative agreed to proceed [1] Social History Tobacco Use Smoking status: Never Smokeless tobacco: Never Vaping Use Vaping status: Never Used Substance Use Topics Alcohol use: Not Currently Drug use: Never documented in this encounter [facility] 03-12-2025 Consult note [facility] 03-12-2025 Discharge summary Note Date/Time March 12, 2025 9:26am [facility] Medical Records Department [address] [place] [address] Discharge Summary 03/12/25 0920 MR#: [id number] Acct: [id number] Name: EDER BREEN Rep #:[id number] : 1955 69 From: Carlton Davis MD PCP: Dr. Hari Oneill, Status:AD M IN Location: [facility] [id number] Providers Date of Admission: 03/08/25 Date of Discharge: 03/12/25 Primary Care Physician: Dr. Hari Oneill, Consultations 03/06/25 07:18 Consult: Gastroenterology Routine Consulting Provider: [facility] Reason for Consult: recurrent diarrhea with abdominal distension EMERGENT Consult: No MD Notified: Yes Date Notified: 03/06/25 Time Notified: 07:18 Method of Notification: Text Reason For Visit: HYPONATREMIA Diagnosis Discharge Diagnosis (1) Abdominal pain: Status: Resolved Code(s): R10.9 - Unspecified abdominal pain (2) Abdominal distension: Status: Resolved Code(s): R14.0 - Abdominal distension (gaseous) Plan Patient is a 69-year-old male who presented persistent abdominal pain with diarrhea and weakness. 1. Persistent abdominal pain with distention and diarrhea ? GI following. Recent hospitalization here, GI and general surgery follow-up. There was concern for Kimberly syndrome at that time. Repeat CT abdomen pelvis on this admission moderate amount of fecal material throughout the colon, venouscollateral vessels seen through the subcu tissues, gallstone in neck of the gallbladder, no other concerning findings. Gallbladder ultrasound showed solitary stone in neck of gallbladder with hepatomegaly and fatty infiltration of liver. No LFT elevation noted, no concern for acute cystitis. CT abdomen pelvis notably is stable from previous. Plan is for EGD and colonoscopy today, we will follow-up results. Appreciate further GI recommendations. ? 03/10/2025; patient was kept n.p.o. after midnight with plan for patient to undergo EGD and colonoscopy ? 03/11/2025; results and recommendations from colonoscopy as below Impressions : - Preparation of the colon was fair. - Dilated in the descending colon, at the splenic flexure, in the transverse colon, at the hepatic flexure and in the ascending colon. Biopsied. - Stool in the transverse colon, at the hepatic flexure, in the ascending colon and in the cecum. - Chronic intestinal pseudoobstruction - Absolutely no narcotics - Metoclopramide 10 mg IV every 6 hours to increase gastric motility - Azithromycin 500 mg IV once a day to increase small bowel motility - octreotide 100 mcg/day, subcutaneous injection to increase small bowel motility and decrease small bacterial overgrowth - Augmentin 875/125 p.o. twice daily x 10 days - Acetylcholinesterase inhibitors (neostigmine, 8 mg/d, intravenous injection or pyridostigmine, 20 mg/d, oral administration) to increase colonic motility Recommendations : - [facility]. - Repeat colonoscopy in 3 months to check healing. - Continue present medications. ? 03/12/2025 prescription was written for Augmentin and pyridostigmine 30 mg dailyand a requisition given for patient to follow-up with GI as outpatient in 2 weeks 2. Hyponatremia, resolved ? Sodium 120 on admit. Improved back to normal range with IV fluid resuscitation. ? 03/10/2025; sodium levels up to 139 3. Hypokalemia ? Potassium 3.3 on 03/08. Repleting as needed. ? 03/10/2025; potassium levels at 3.4 ordered additional IV potassium 4. Mild acute on chronic debility ? PT/OT/case management following. Patient lives at home with his , has hadsome difficulty caring for himself with his recent medical issues. Has had fairly good therapy scores while inpatient, planning for outpatient therapy on discharge. 5. Class II obesity with BMI of 39.9 ? Complicating care weight loss advised 6. Seizure disorder - Continue home lacosamide, Lamictal, Keppra and zonisamide. 7. History of DVT -s/p IVC filter placement: INR therapeutic at 2.4 on admit. Continue home Coumadin. 8. Hypothyroidism ? Patient is on levothyroxine home dose continued 9. GERD ? On PPI 10. DVT prophylaxis ? On Coumadin 11. Hyperphosphatemia ? Corrected per protocol Time spent in the patient's overall evaluation,decision-making process, review of diagnostic data, adjustment of management, discussion with other providers, nursing nursing and ancillary staff involved in patient's care documentation,36 Minutes Medications at Discharge Home Medications lamotrigine 200 mg tablet (Lamictal) 200 mg PO BID SEIZURES 03/12/14 lacosamide 200 mg tablet 200 mg PO BID SEIZURES 09/17/19 zonisamide 100 mg capsule 100 mg PO BID SEIZURES 09/17/19 warfarin 7.5 mg tablet 7.5 mg PO DAILY BLOOD THINNER 09/12/21 levetiracetam 750 mg tablet 1,500 mg PO BID SEIZURES 03/11/24 levothyroxine 88 mcg tablet 88 mcg PO DAILY THYROID 03/11/24 furosemide 40 mg tablet 20 mg PO DAILY water pill 03/19/24 ibuprofen 600 mg tablet 600 mg PO Q6H PRN fever or pain #20 tabs 03/21/24 potassium chloride 20 mEq/15 mL oral liquid 10 meq PO DAILY supplement 02/27/25 tamsulosin 0.4 mg capsule 0.4 mg PO QHS prostate 02/27/25 amoxicillin 875 mg-potassium clavulanate 125 mg tablet 1 tab PO BID 10 days #20 tabs 03/12/25 metoclopramide HCl 5 mg tablet 5 mg PO Q6H 30 days #120 tabs 03/12/25 potassium, sodium phosphates 280 mg-160 mg-250 mg oral powder packet 1 packet POBID 10 days #20 ea 03/12/25 pyridostigmine bromide 30 mg tablet 30 mg PO DAILY #30 tabs 03/12/25 Physical Exam Narrative GENERAL: cooperative HEENT: Atraumatic; normocephalic EYES; right eye enucleated NECK; supple, normal thyroid, RESPIRATORY: Diminished to auscultation CARDIOVASCULAR: Regular S1 S2, GI: soft, normoactive bowel sounds, : No Renal angle tenderness; EXTREMITIES: No edema, no clubbing, MUSCULOSKELETAL: no muscle wasting NEURO: Awake; no lateralizing signs. SKIN: No Rash PSYCH; Flat affect Weight / BMI Weight Weight: 120 kg Body Mass Index (BMI) 35.8 ABG / Lab / Microbiology Data 03/12/25 05:58 03/12/25 05:58 Laboratory: Laboratory Results - last 24 hr 03/11/25 12:20: POC Glucose 139 H 03/11/25 16:46: POC Glucose 124 H 03/12/25 05:58: WBC 6.3, RBC 4.18 L, Hgb 12.3 L, Hct 37.6 L, MCV 90.0, MCH 29.4,MCHC 32.7, RDW Std Deviation 47.6 H, RDW Coeff of Vaishnavi 14.4, Plt Count 173, MPV 9.3, Immature Gran % (Auto) 0.200, Neut % (Auto) 67.1, Lymph % (Auto) 20.3, Saline% (Auto) 7.0, Eos % (Auto) 4.9, Baso % (Auto) 0.5, Absolute Neuts (auto) 4.2, Absolute Lymphs (auto) 1.28, Nucleated RBC % 0, Sodium 140, Potassium 3.7, Chloride 106, Carbon Dioxide 22.0, Anion Gap 12, BUN 10, Creatinine 1.00, Estim Creat Clear Calc 90.62, Est GFR (MDRD) Non-Af 80, BUN/Creatinine Ratio 9.7 L, Glucose 110 H, Calcium 8.9 Microbiology: Microbiology 03/08/25 13:10 Stool Stool Lactoferrin - Final 03/08/25 13:10 Stool Enteric Bacteriology - Final D/C Instructions Discharge Activity: Return to Normal Activity Call your doctor if you observe: Fever of 101 or Higher, Shortness of breath, Fainting spells and Chest pain DC O2, CPAP, BIPAP Needs Home O2 Discharge instructions: No Meaningful Use Info Meaningful Use Meaningful Use Diagnoses (Choose all that apply): None applicable Discharge Plan Admission Admit Date/Time: 03/08/25 14:49 Attending Provider: Carlton Davis Primary Care Provider: Hari Oneill Consulting Providers: Duncan Rashid; Danae Stanton Discharge Orders/Prescriptions Prescriptions: New amoxicillin-pot clavulanate 875-125 mg Tablet 1 tab PO BID 10 Days Qty: 20 0RF potassium, sodium phosphates 280-160-250 mg Powder In Packet 1 packet PO BID 10 Days Qty: 20 0RF pyridostigmine bromide 30 mg tablet 30 mg PO DAILY Qty: 30 0RF metoclopramide HCl 5 mg tablet 5 mg PO Q6H 30 Days Qty: 120 0RF Continued warfarin 7.5 mg tablet 7.5 mg PO DAILY lamotrigine [Lamictal] 200 MG tablet 200 mg PO BID zonisamide 100 MG capsule 100 mg PO BID Patient Comments: 2 tabs at lunch and 2 tabs at hs lacosamide 200 mg tablet 200 mg PO BID levothyroxine 88 mcg tablet 88 mcg PO DAILY levetiracetam 750 mg tablet 1,500 mg PO BID furosemide 40 mg tablet 20 mg PO DAILY ibuprofen 600 mg tablet 600 mg PO Q6H PRN (Reason: fever or pain) Qty: 20 0RF tamsulosin 0.4 mg capsule 0.4 mg PO QHS potassium chloride 20 mEq/15 mL liquid 10 meq PO DAILY Referrals / Follow Up: Hari Oneill DO [Primary Care Provider] - In 1 Week Friend,DO Luis A [Med Staff - Active Staff] - Within 2 Weeks Disposition Disposition (needs filled in before D/C Order can be placed): Home, Self Care Charges/Coding Visit Charges Inpatient E&M: 10672 Disch Hosp >30min 03/12/25 09 <Electronically signed by Carlton Davis MD> Cosigner Signature (if applicable): CC: Dr. Carlton Davis MD; Dr. Hari Oneill DO~ Signed [facility] Work Phone: 1(128) 594-790008-07-2025 Discharge summary [facility] Medical Records Department [address] [place] [address] Discharge Summary 03/12/25 0920 MR#: [id number] Acct: [id number] Name: EDER BREEN Rep #:[id number] : 1955 69 From: aCrlton Davis MD PCP: Dr. Hari Oneill, DO Status:AD M IN Location: [facility] [id number] Providers Date of Admission: 03/08/25 Date of Discharge: 03/12/25 Primary Care Physician: Dr. Hari Oneill, DO Consultations 03/06/25 07:18 Consult: Gastroenterology Routine Consulting Provider: [facility] Reason for Consult: recurrent diarrhea with abdominal distension EMERGENT Consult: No MD Notified: Yes Date Notified: 03/06/25 Time Notified: 07:18 Method of Notification: Text Reason For Visit: HYPONATREMIA Diagnosis Discharge Diagnosis (1) Abdominal pain: Status: Resolved Code(s): R10.9 - Unspecified abdominal pain (2) Abdominal distension: Status: Resolved Code(s): R14.0 - Abdominal distension (gaseous) Plan Patient is a 69-year-old male who presented persistent abdominal pain with diarrhea and weakness. 1. Persistent abdominal pain with distention and diarrhea ? GI following. Recent hospitalization here, GI and general surgery follow-up. 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 Repeat CT abdomen pelvis on this admission moderate amount of fecalmaterial throughout the colon, venouscollateral vessels seen through the subcu tissues, gallstone in neck of the gallbladder, no other concerning findings. Gallbladder ultrasound showed solitary stone in neck of gallbladder with hepatomegaly and fatty infiltration of liver. No LFT elevation noted, no concern for acute cystitis. CT abdomen pelvis notably is stable from previous. Plan is for EGD and colonoscopy today, we will follow-up results. Appreciate further GI recommendations. ? 03/10/2025; patient was kept n.p.o. after midnight with plan for patient to undergo EGD and colonoscopy ? 03/11/2025; results and recommendations from colonoscopy as below Impressions : - Preparation of the colon was fair. - Dilated in the descending colon, at the splenic flexure, in the transverse colon, at the hepatic flexure and in the ascending colon. Biopsied. - Stool in the transverse colon, at the hepatic flexure, in the ascending colon and in the cecum. - Chronic intestinal pseudoobstruction - Absolutely no narcotics - Metoclopramide 10 mg IV every 6 hours to increase gastric motility - Azithromycin 500 mg IV once a day to increase small bowel motility - octreotide 100 mcg/day, subcutaneous injection to increase small bowel motility and decrease small bacterial overgrowth - Augmentin 875/125 p.o. twice daily x 10 days - Acetylcholinesterase inhibitors (neostigmine, 8 mg/d, intravenous injection or pyridostigmine, 20mg/d, oral administration) to increase colonic motility Recommendations : - [facility]. - Repeat colonoscopy in 3 months to check healing. - Continue present medications. ? 03/12/2025 prescription was written for Augmentin and pyridostigmine 30 mg dailyand a requisition given for patient to follow-up with GI as outpatient in 2 weeks 2. Hyponatremia, resolved ? Sodium 120 on admit. Improved back to normal range with IV fluid resuscitation. ? 03/10/2025; sodium levels up to 139 3. Hypokalemia ? Potassium 3.3 on 03/08. Repleting as needed. ? 03/10/2025; potassium levels at 3.4 ordered additional IV potassium 4. Mild acute on chronic debility ? PT/OT/case management following. Patient lives at home with his , has hadsome difficulty caring for himself with his recent medical issues. Has had fairly good therapy scores while inpatient, planning for outpatient therapy on discharge. 5. Class II obesity with BMI of 39.9 ? Complicating care weight loss advised 6. Seizure disorder - Continue home lacosamide, Lamictal, Keppra and zonisamide. 7. History of DVT -s/p IVC filter placement: INR therapeutic at 2.4 on admit. Continue home Coumadin. 8. Hypothyroidism ? Patient is on levothyroxine home dose continued 9. GERD ? On PPI 10. DVT prophylaxis ? On Coumadin 11. Hyperphosphatemia ? Corrected per protocol Time spent in the patient's overall evaluation,decision-making process, review of diagnostic data, adjustment of management, discussion with other providers, nursing nursing and ancillary staff involved in patient's care documentation,36 Minutes Medications at Discharge Home Medications lamotrigine 200 mg tablet (Lamictal) 200 mg PO BID SEIZURES 03/12/14 lacosamide 200 mg tablet 200 mg PO BID SEIZURES 09/17/19 zonisamide 100 mg capsule 100 mg PO BID SEIZURES 09/17/19 warfarin 7.5 mg tablet 7.5 mg PO DAILY BLOOD THINNER 09/12/21 levetiracetam 750 mg tablet 1,500 mg PO BID SEIZURES 03/11/24 levothyroxine 88 mcg tablet 88 mcg PO DAILY THYROID 03/11/24 furosemide 40 mg tablet 20 mg PO DAILY water pill 03/19/24 ibuprofen 600 mg tablet 600 mg PO Q6H PRN fever or pain #20 tabs 03/21/24 potassium chloride 20 mEq/15 mL oral liquid 10 meq PO DAILY supplement 02/27/25 tamsulosin 0.4 mg capsule 0.4 mg PO QHS prostate 02/27/25 amoxicillin 875 mg-potassium clavulanate 125 mg tablet 1 tab PO BID 10 days #20 tabs 03/12/25 metoclopramide HCl 5 mg tablet 5 mg PO Q6H 30 days #120 tabs 03/12/25 potassium, sodium phosphates 280 mg-160 mg-250 mg oral powder packet 1 packet POBID 10 days #20 ea 03/12/25 pyridostigmine bromide 30 mg tablet 30 mg PO DAILY #30 tabs 03/12/25 Physical Exam Narrative GENERAL: cooperative HEENT: Atraumatic; normocephalic EYES; right eye enucleated NECK; supple, normal thyroid, RESPIRATORY: Diminished to auscultation CARDIOVASCULAR: Regular S1 S2, GI: soft, normoactive bowel sounds, : No Renal angle tenderness; EXTREMITIES: No edema, no clubbing, MUSCULOSKELETAL: no muscle wasting NEURO: Awake; no lateralizing signs. SKIN: No Rash PSYCH; Flat affect Weight / BMI Weight Weight: 120 kg Body Mass Index (BMI) 35.8 ABG / Lab / Microbiology Data 03/12/25 05:58 03/12/25 05:58 Laboratory: Laboratory Results - last 24 hr 03/11/25 12:20: POC Glucose 139 H 03/11/25 16:46: POC Glucose 124 H 03/12/25 05:58: WBC 6.3, RBC 4.18 L, Hgb 12.3 L, Hct 37.6 L, MCV 90.0, MCH 29.4,MCHC 32.7, RDW Std Deviation 47.6 H, RDW Coeff of Vaishnavi 14.4, Plt Count 173, MPV 9.3, Immature Gran % (Auto) 0.200, Neut % (Auto) 67.1, Lymph % (Auto) 20.3, Saline% (Auto) 7.0, Eos % (Auto) 4.9, Baso % (Auto) 0.5, Absolute Neuts (auto) 4.2, Absolute Lymphs (auto) 1.28, Nucleated RBC % 0, Sodium 140, Potassium 3.7, Chloride 106, Carbon Dioxide 22.0, Anion Gap 12, BUN 10, Creatinine 1.00, Estim Creat Clear Calc 90.62, EstGFR (MDRD) Non-Af 80, BUN/Creatinine Ratio 9.7 L, Glucose 110 H, Calcium 8.9 Microbiology: Microbiology 03/08/25 13:10 Stool Stool Lactoferrin - Final 03/08/25 13:10 Stool Enteric Bacteriology - Final D/C Instructions Discharge Activity: Return to Normal Activity Call your doctor if you observe: Fever of 101 or Higher, Shortness of breath, Fainting spells and Chest pain DC O2, CPAP, BIPAP Needs Home O2 Discharge instructions: No Meaningful Use Info Meaningful Use Meaningful Use Diagnoses (Choose all that apply): None applicable Discharge Plan Admission Admit Date/Time: 03/08/25 14:49 Attending Provider: Carlton Davis Primary Care Provider: Hari Oneill Consulting Providers: Duncan Rashid; Danae Stanton Discharge Orders/Prescriptions Prescriptions: New amoxicillin-pot clavulanate 875-125 mg Tablet 1 tab PO BID 10 Days Qty: 20 0RF potassium, sodium phosphates 280-160-250 mg Powder In Packet 1 packet PO BID 10 Days Qty: 20 0RF pyridostigmine bromide 30 mg tablet 30 mg PO DAILY Qty: 30 0RF metoclopramide HCl 5 mg tablet 5 mg PO Q6H 30 Days Qty: 120 0RF Continued warfarin 7.5 mg tablet 7.5 mg PO DAILY lamotrigine [Lamictal] 200 MG tablet 200 mg PO BID zonisamide 100 MG capsule 100 mg PO BID Patient Comments: 2 tabs at lunch and 2 tabs at hs lacosamide 200 mg tablet 200 mg PO BID levothyroxine 88 mcg tablet 88 mcg PO DAILY levetiracetam 750 mg tablet 1,500 mg PO BID furosemide 40 mg tablet 20 mg PO DAILY ibuprofen 600 mg tablet 600 mg PO Q6H PRN (Reason: fever or pain) Qty: 20 0RF tamsulosin 0.4 mg capsule 0.4 mg PO QHS potassium chloride 20 mEq/15 mL liquid 10 meq PO DAILY Referrals / Follow Up: Hari Oneill DO [Primary Care Provider] - In 1 Week Friend,DO Luis A [Med Staff - Active Staff] - Within 2 Weeks Disposition Disposition (needs filled in before D/C Order can be placed): Home, Self Care Charges/Coding Visit Charges Inpatient E&M: 61522 Disch Hosp >30min 03/12/25 0926 Cosigner Signature (if applicable): CC: Dr. Carlton Davis MD; Dr. Hari Oneill DO~ Signed [facility]08-07-2025 [facility] Progress note Author Luis A Friend [facility] Note Date/Time March 11, 2025 7:0 3pm [facility] Medical Records Department [address] [place] [address] Progress Note 03/11/25 190 MR#: [id number] Acct: [id number] Name: EDER BREEN Rep #:[id number] : 1955 69 From: Luis A Singh DO PCP: Dr. Hari Oneill DO Status:AD M IN Location: [facility] [id number] Progress Note Patient is still complaining of some bloating but is feeling a little bit betterthan yesterday. He is tolerating new medication regimen. His diet has been advanced. Physical Exam Narrative GENERAL: cooperative HEENT: Atraumatic; normocephalic EYES; right eye enucleated NECK; supple, normal thyroid, RESPIRATORY: Diminished to auscultation CARDIOVASCULAR: Regular S1 S2, GI: soft, normoactive bowel sounds, : No Renal angle tenderness; EXTREMITIES: No edema, no clubbing, MUSCULOSKELETAL: no muscle wasting NEURO: Awake; no lateralizing signs. SKIN: No Rash PSYCH; Flat affect Assessment & Plan Assessment/Plan (1) Abdominal distension: (2) Abdominal pain: PLAN: 69-year-old patient presents with primary complaint of gas and bloating, which has been ongoing for several months. He reports generalized abdominal discomfort and distention, feeling full easily after eating small amounts. He does not have a known history of cirrhotic or non-cirrhotic portal hypertension. He denies history of cirrhosis or other chronic liver diseases such as viral hepatitis, biliary cirrhosis, steatohepatitis, or autoimmune hepatitis. , * Differential diagnoses for gas/bloat in this setting include: * Irritable Bowel Syndrome (IBS):?May present with gas and bloating. * Gastroparesis, although less likely to be the primary cause of these symptoms in the setting of portal hypertension. * Small Intestinal Bacterial Overgrowth (SIBO):?Can cause bloating and gas. * Dietary Factors:?Certain foods can exacerbate gas and bloating. * Further evaluation needed to confirm the cause of the gas and bloating. * Such as EGD with biopsies, stool for pancreatic elastase, autoantibodies for celiac disease, gastric emptying study * If workup is negative then I would recommend vascular consultation due to CT abnormalities of multiple portal collateral mesenteric veins PLAN: Plan 03/07/2025-patient has been on the full liquid diet. I will check biochemical labs and he will prep for an EGD and colonoscopy on 03/09/2025. 03/09/2025-patient can have clear liquid diet tonight. N.p.o. at midnight for EGDand colonoscopy tomorrow. 03/11/2025-chronic intestinal pseudoobstruction. Patient is on prokinetics for his stomach, prokinetics for his small bowel. He may need neostigmine. Continue current regimen and if patient progresses then he can be DC'd on current medication regimen. Further recommendation to follow. Visit Charges Inpatient E&M: 57721 Subs Hosp L3 03/11/251902 <Electronically signed by Luis A Singh DO> Luis A Singh DO Cosigner Signature (if applicable): CC: ~ Signed [facility] Work Phone: 1(496) 121-975208-06-2025 Progress note [facility] Medical Records Department [address] [place] [address] Progress Note 03/11/251900 MR#: [id number] Acct: [id number] Name: EDER BREEN Rep #:[id number] : 1955 69 From: Luis A Singh DO PCP: Dr. Hari Oneill, DO Status:AD M IN Location: [facility] VT109-9 Progress Note Patient is still complaining of some bloating but is feeling a little bit betterthan yesterday. He is tolerating new medication regimen. His diet has been advanced. Physical Exam Narrative GENERAL: cooperative HEENT: Atraumatic; normocephalic EYES; right eye enucleated NECK; supple, normal thyroid, RESPIRATORY: Diminished to auscultation CARDIOVASCULAR: Regular S1 S2, GI: soft, normoactive bowel sounds, : No Renal angle tenderness; EXTREMITIES: No edema, no clubbing, MUSCULOSKELETAL: no muscle wasting NEURO: Awake; no lateralizing signs. SKIN: No Rash PSYCH; Flat affect Assessment & Plan Assessment/Plan (1) Abdominal distension: (2) Abdominal pain: PLAN: 69-year-old patient presents with primary complaint of gas and bloating, which has been ongoing for several months. He reports generalized abdominal discomfort and distention, feeling full easily after eating small amounts. He does not have a known history of cirrhotic or non-cirrhotic portalhypertension. He denies history of cirrhosis or other chronic liver diseases such as viral hepatitis, biliary cirrhosis, steatohepatitis, or autoimmune hepatitis. , * Differential diagnoses for gas/bloat in this setting include: * Irritable Bowel Syndrome (IBS):?May present with gas and bloating. * Gastroparesis, although less likely to be the primary cause of these symptoms in the setting of portal hypertension. * Small Intestinal Bacterial Overgrowth (SIBO):?Can cause bloating and gas. * Dietary Factors:?Certain foods can exacerbate gas and bloating. * Further evaluation needed to confirm the cause of the gas and bloating. * Such as EGD with biopsies, stool for pancreatic elastase, autoantibodies for celiac disease, gastric emptying study * If workup is negative then I would recommend vascular consultation due to CT abnormalities of multiple portal collateral mesenteric veins PLAN: Plan 03/07/2025-patient has been on the full liquid diet. I will check biochemical labs and he will prep for an EGD and colonoscopy on 03/09/2025. 03/09/2025-patient can have clear liquid diet tonight. N.p.o. at midnight for EGDand colonoscopy tomorrow. 03/11/2025-chronic intestinal pseudoobstruction. Patient is on prokinetics for his stomach, prokinetics for his small bowel. He may need neostigmine. Continue current regimen and if patient progresses then he can be DC'd on current medication regimen. Further recommendation to follow. Visit Charges Inpatient E&M: 58153 [facility] Hosp 03/11/25 7741 Luis A Friend DO Cosigner Signature (if applicable): CC: ~ Signed [facility]08-06-2025 Progress note Author Carlton Davis [facility] Note Date/Time March 11, 2025 7:2 8am [facility] Medical Records Department [address] [place] [address] Progress Note - Hospitalist 03/11/25 0721 MR#: [id number] Acct: [id number] Name: EDER BREEN Rep #:[id number] : 1955 69 From: Carlton Davis MD PCP: Dr. Hari Oneill, DO Status:AD M IN Location: [place] [address]1 Reason for Visit Chief Complaint: Persistent abdominal pain with diarrhea and weakness Subjective Subjective Patient underwent colonoscopy the day prior results as below Objective Data Objective Data Vital Signs: Vital Signs Temp Pulse Resp BP Pulse Ox O2 Del Method 98.3 F 84 16 132/95 H 93 Room Air 03/11/25 02:00 03/11/25 02:00 03/11/25 02:00 03/11/25 02:00 03/11/25 02:00 03/11/25 02:00 Oxygen Delivery Method Room Air Weight: 131.496 kg Body Mass Index (BMI) 39.3 Intake & Output: Intake and Output for Last 24 Hours 03/09/25 03/10/25 03/11/25 23:59 23:59 23:59 Intake Total 691.67 / 691.67 1030 / 1030 500 / 500 Output Total 625 / 625 1525 / 1525 625 / 625 Balance 66.67 / 66.67 -495 / -495 -125 / -125 Lab / Micro Data 03/11/25 04:58 03/11/25 04:58 Labs: Laboratory Results - last 24 hr 03/08/25 04:53: KIMMIE-1 Antibody <0.2, SS-A/Ro IgG Antibody < 0.2, SS-B/La IgG Antibody < 0.2, Sm (Frances) Antibody <0.2, CLINICAL NURSE OCCUPATIONAL MEDICINE Antibody <0.2, Scl-70 Scleroderma Ab <0.2, Double Strand DNA Ab <1, Antichromatin Antibodies <0.2, Centromere B Antibody <0.2 03/11/25 04:58: WBC 5.6, RBC 4.11 L, Hgb 12.0 L, Hct 36.7 L, MCV 89.3, MCH 29.2,MCHC 32.7, RDW Std Deviation 47.3 H, RDW Coeff of Vaishnavi 14.5, Plt Count 165, MPV 8.7, Immature Gran % (Auto) 0.200, Neut % (Auto) 67.9, Lymph % (Auto) 21.4, Saline% (Auto) 5.7, Eos % (Auto) 4.3, Baso % (Auto) 0.5, Absolute Neuts (auto) 3.8, Absolute Lymphs (auto) 1.20, Nucleated RBC % 0, Sodium 138, Potassium 3.9, Chloride 106, Carbon Dioxide 19.6 L, Anion Gap 13, BUN 8, Creatinine 0.94, EstimCreat Clear Calc 101.09, Est GFR (MDRD) Non-Af 87, BUN/Creatinine Ratio 8.8 L, Glucose 131 H, Calcium 8.8, Phosphorus 2.4 L, Magnesium 2.2 Micro: Microbiology 03/08/25 13:10 Stool Stool Lactoferrin - Final 03/08/25 13:10 Stool Enteric Bacteriology - Final Physical Exam Narrative GENERAL: cooperative HEENT: Atraumatic; normocephalic EYES; right eye enucleated NECK; supple, normal thyroid, RESPIRATORY: Diminished to auscultation CARDIOVASCULAR: Regular S1 S2, GI: soft, normoactive bowel sounds, : No Renal angle tenderness; EXTREMITIES: No edema, no clubbing, MUSCULOSKELETAL: no muscle wasting NEURO: Awake; no lateralizing signs. SKIN: No Rash PSYCH; Flat affect Assessment & Plan Assessment/Plan (1) Abdominal pain: (2) Abdominal distension: PLAN: Plan Patient is a 69-year-old male who presented persistent abdominal pain with diarrhea and weakness. 1. Persistent abdominal pain with distention and diarrhea ? GI following. Recent hospitalization here, GI and general surgery follow-up. 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 Repeat CT abdomen pelvis on this admission moderate amount of fecal material throughout the colon, venouscollateral vessels seen through the subcu tissues, gallstone in neck of the gallbladder, no other concerning findings. Gallbladder ultrasound showed solitary stone in neck of gallbladder with hepatomegaly and fatty infiltration of liver. No LFT elevation noted, no concern for acute cystitis. CT abdomen pelvis notably is stable from previous. Plan is for EGD and colonoscopy today, we will follow-up results. Appreciate further GI recommendations. ? 03/10/2025; patient was kept n.p.o. after midnight with plan for patient to undergo EGD and colonoscopy ? 03/11/2025; results and recommendations from colonoscopy as below Impressions : - Preparation of the colon was fair. - Dilated in the descending colon, at the splenic flexure, in the transverse colon, at the hepatic flexure and in the ascending colon. Biopsied. - Stool in the transverse colon, at the hepatic flexure, in the ascending colon and in the cecum. - Chronic intestinal pseudoobstruction - Absolutely no narcotics - Metoclopramide 10 mg IV every 6 hours to increase gastric motility - Azithromycin 500 mg IV once a day to increase small bowel motility - octreotide 100 mcg/day, subcutaneous injection to increase small bowel motility and decrease small bacterial overgrowth - Augmentin 875/125 p.o. twice daily x 10 days - Acetylcholinesterase inhibitors (neostigmine, 8 mg/d, intravenous injection or pyridostigmine, 20 mg/d, oral administration) to increase colonic motility Recommendations : - [facility]. - Repeat colonoscopy in 3 months to check healing. - Continue present medications. 2. Hyponatremia, resolved ? Sodium 120 on admit. Improved back to normal range with IV fluid resuscitation. ? 03/10/2025; sodium levels up to 139 3. Hypokalemia ? Potassium 3.3 on 03/08. Repleting as needed. ? 03/10/2025; potassium levels at 3.4 ordered additional IV potassium 4. Mild acute on chronic debility ? PT/OT/case management following. Patient lives at home with his , has hadsome difficulty caring for himself with his recent medical issues. Has had fairly good therapy scores while inpatient, planning for outpatient therapy on discharge. 5. Class II obesity with BMI of 39.9 ? Complicating care weight loss advised 6. Seizure disorder - Continue home lacosamide, Lamictal, Keppra and zonisamide. 7. History of DVT -s/p IVC filter placement: INR therapeutic at 2.4 on admit. Continue home Coumadin. 8. Hypothyroidism ? Patient is on levothyroxine home dose continued 9. GERD ? On PPI 10. DVT prophylaxis ? On Coumadin 11. Hyperphosphatemia ? Corrected per protocol Time spent in the patient's overall evaluation,decision-making process, review of diagnostic data, adjustment of management, discussion with other providers, nursing nursing and ancillary staff involved in patient's care documentation,36 Minutes Charges/Coding Visit Charges Inpatient E&M: 53102 Subs Hosp L2 03/11/25 0728 <Electronically signed by Carlton Davis MD> Cosigner Signature (if applicable): CC: ~ Signed [facility] Work Phone: 1(611) 765-389808-06-2025 Progress note [facility] Medical Records Department [address] [place] [address] Progress Note - Hospitalist 03/11/25720 MR#: [id number] Acct: [id number] Name: EDER BREEN Rep #:[id number] : 1955 69 From: Carlton Davis MD PCP: Dr. Hari Oneill, DO Status:AD M IN Location: [place] [address] Reason for Visit Chief Complaint: Persistent abdominal pain with diarrhea and weakness Subjective Subjective Patient underwent colonoscopy the day prior results as below Objective Data Objective Data Vital Signs: Vital Signs Temp Pulse Resp BP Pulse Ox O2 Del Method 98.3 F 84 16 132/95 H 93 Room Air 03/11/25 02:00 03/11/25 02:00 03/11/25 02:00 03/11/25 02:00 03/11/25 02:00 03/11/25 02:00 Oxygen Delivery Method Room Air Weight: 131.496 kg Body Mass Index (BMI) 39.3 Intake & Output: Intake and Output for Last 24 Hours 03/09/25 03/10/25 03/11/25 23:59 23:59 23:59 Intake Total 691.67 / 691.67 1030 / 1030 500 / 500 Output Total 625 / 625 1525 / 1525 625 / 625 Balance 66.67 / 66.67 -495 / -495 -125 / -125 Lab / Micro Data 03/11/25 04:58 03/11/25 04:58 Labs: Laboratory Results - last 24 hr 03/08/25 04:53: KIMMIE-1 Antibody <0.2, SS-A/Ro IgG Antibody < 0.2, SS-B/La IgG Antibody < 0.2, Sm (Frances) Antibody <0.2, CLINICAL NURSE OCCUPATIONAL MEDICINE Antibody <0.2, Scl-70 Scleroderma Ab <0.2, Double Strand DNA Ab <1, Antichromatin Antibodies <0.2, Centromere B Antibody <0.2 03/11/25 04:58: WBC 5.6, RBC 4.11 L, Hgb 12.0 L, Hct 36.7 L, MCV 89.3, MCH 29.2,MCHC 32.7, RDW Std Deviation 47.3 H, RDW Coeff of Vaishnavi 14.5, Plt Count 165, MPV 8.7, Immature Gran % (Auto) 0.200, Neut % (Auto) 67.9, Lymph % (Auto) 21.4, Saline% (Auto) 5.7, Eos % (Auto) 4.3, Baso % (Auto) 0.5, Absolute Neuts (auto) 3.8, Absolute Lymphs (auto) 1.20, Nucleated RBC % 0, Sodium 138, Potassium 3.9, Chloride 106, Carbon Dioxide 19.6 L, Anion Gap 13, BUN 8, Creatinine 0.94, EstimCreat Clear Calc 101.09, Est GFR (MDRD) Non-Af 87, BUN/Creatinine Ratio 8.8 L, Glucose 131 H, Calcium 8.8, Phosphorus 2.4 L, Magnesium 2.2 Micro: Microbiology 03/08/25 13:10 Stool Stool Lactoferrin - Final 03/08/25 13:10 Stool Enteric Bacteriology - Final Physical Exam Narrative GENERAL: cooperative HEENT: Atraumatic; normocephalic EYES; right eye enucleated NECK; supple, normal thyroid, RESPIRATORY: Diminished to auscultation CARDIOVASCULAR: Regular S1 S2, GI: soft, normoactive bowel sounds, : No Renal angle tenderness; EXTREMITIES: No edema, no clubbing, MUSCULOSKELETAL: no muscle wasting NEURO: Awake; no lateralizing signs. SKIN: No Rash PSYCH; Flat affect Assessment & Plan Assessment/Plan (1) Abdominal pain: (2) Abdominal distension: PLAN: Plan Patient is a 69-year-old male who presented persistent abdominal pain with diarrhea and weakness. 1. Persistent abdominal pain with distention and diarrhea ? GI following. Recent hospitalization here, GI and general surgery follow-up. There was concern for Kimberly syndrome at that time. Repeat CT abdomen pelvis on this admission moderate amount of fecalmaterial throughout the colon, venouscollateral vessels seen through the subcu tissues, gallstone in neck of the gallbladder, no other concerning findings. Gallbladder ultrasound showed solitary stone in neck of gallbladder with hepatomegaly and fatty infiltration of liver. No LFT elevation noted, no concern for acute cystitis. CT abdomen pelvis notably is stable from previous. Plan is for EGD and colonoscopy today, we will follow-up results. Appreciate further GI recommendations. ? 03/10/2025; patient was kept n.p.o. after midnight with plan for patient to undergo EGD and colonoscopy ? 03/11/2025; results and recommendations from colonoscopy as below Impressions : - Preparation of the colon was fair. - Dilated in the descending colon, at the splenic flexure, in the transverse colon, at the hepatic flexure and in the ascending colon. Biopsied. - Stool in the transverse colon, at the hepatic flexure, in the ascending colon and in the cecum. - Chronic intestinal pseudoobstruction - Absolutely no narcotics - Metoclopramide 10 mg IV every 6 hours to increase gastric motility - Azithromycin 500 mg IV once a day to increase small bowel motility - octreotide 100 mcg/day, subcutaneous injection to increase small bowel motility and decrease small bacterial overgrowth - Augmentin 875/125 p.o. twice daily x 10 days - Acetylcholinesterase inhibitors (neostigmine, 8 mg/d, intravenous injection or pyridostigmine, 20mg/d, oral administration) to increase colonic motility Recommendations : - [facility]. - Repeat colonoscopy in 3 months to check healing. - Continue present medications. 2. Hyponatremia, resolved ? Sodium 120 on admit. Improved back to normal range with IV fluid resuscitation. ? 03/10/2025; sodium levels up to 139 3. Hypokalemia ? Potassium 3.3 on 03/08. Repleting as needed. ? 03/10/2025; potassium levels at 3.4 ordered additional IV potassium 4. Mild acute on chronic debility ? PT/OT/case management following. Patient lives at home with his , has hadsome difficulty caring for himself with his recent medical issues. Has had fairly good therapy scores while inpatient, planning for outpatient therapy on discharge. 5. Class II obesity with BMI of 39.9 ? Complicating care weight loss advised 6. Seizure disorder - Continue home lacosamide, Lamictal, Keppra and zonisamide. 7. History of DVT -s/p IVC filter placement: INR therapeutic at 2.4 on admit. Continue home Coumadin. 8. Hypothyroidism ? Patient is on levothyroxine home dose continued 9. GERD ? On PPI 10. DVT prophylaxis ? On Coumadin 11. Hyperphosphatemia ? Corrected per protocol Time spent in the patient's overall evaluation,decision-making process, review of diagnostic data, adjustment of management, discussion with other providers, nursing nursing and ancillary staff involved in patient's care documentation,36 Minutes Charges/Coding Visit Charges Inpatient E&M: 87578 Subs Hosp L2 03/11/25 0728 Cosigner Signature (if applicable): CC: ~ Signed [facility]08-05-2025 Consult note Author Srinivasa Odonnell [facility] Note Date/Time March 12, 2025 1:4 1pm [facility] Medical Records Department [address] [place] [address] Anesthesia Postop Eval II 03/10/252010 MR#: [id number] Acct: [id number] Name: EDER BREEN Rep #:[id number] : 1955 69 From: Srinivasa Singh PCP: Dr. Hari Oneill, DO Status:AD M IN Y Race: C Location: [place] [address] Anesthesia Postop Eval I Sum Postop Eval Completion status Anesthesia document: Postop Eval 1 completed: Yes Anesthesia Postop Eval I Summary Anesthesia Postop Eval I Summary: Anesthesia Postop Eval I: Assessment Summary Airway patent Yes 03/10/25 18:14 Spontaneous unlabored Yes 03/10/25 18:14 respirations Mental status Awake 03/10/25 18:14 nausea No 03/10/25 18:14 Vomiting No 03/10/25 18:14 Anesthesia Postop Eval I: Fluid Summary Crystalloid volume administer 300 03/10/25 18:14 (ml) Colloids volume administered ( ml) Blood Product volume administered (ml) Total IV fluid infused 300 03/10/25 18:14 Anesthesia Postop Eval I: Summary Notes Anesthesia Complication No 03/10/25 18:14 Anesthesia Complication Comment: Post-operative progress note Anesthesia: Postop Eval II Evaluation Mental status: Awake and Calm Pain Level: 1 nausea: No Vomiting: No Complications Anesthesia Complication: No 03/10/252010 <Electronically signed by Srinivasa Odonnell MD> Date _ Srinivasa Odonnell MD Cosigner Signature: Date CC: ~ Signed [facility] Work Phone: 1(939) 580-908308-05-2025 Consult note Author Srinivasa Odonnell [facility] Note Date/Time March 10, 2025 6:1 4pm [facility] Medical Records Department [address] [place] [id number] Anesthesia Postop Eval I 03/10/251813 MR#: [id number] Acct: [id number] Name: EDER BREEN Rep #:[id number] : 1955 69 From: Srinivasa Singh PCP: Dr. Hari Oneill, DO Status:AD M IN Y Race: C Location: [place] [address] Anesthesia: Postop Eval I Current Vital Signs Temperature: 97.2 F Pulse Rate: 69 Blood Pressure: 132/69 Respiratory Rate: 16 Pulse Ox: 100 Oxygen Delivery Method: Room Air Assessment Airway patent: Yes Spontaneous unlabored respirations: Yes Mental status: Awake nausea: No Vomiting: No Anesthesia Complication: No Fluid Hydration Crystalloid volume administer (ml): 300 Total IV fluid infused: 300 Progress Note Anesthesia document: Postop Eval 1 completed: Yes 03/10/251813 <Electronically signed by Srinivasa Odonnell MD> Date _ Srinivasa Odonnell MD [facility] Signature: Date CC: ~ Signed [facility] Work Phone: 1(585) 260-252808-05-2025 Consult note Author Srinivasa Odonnell [facility] Note Date/Time March 10, 2025 4:3 7pm [facility] Medical Records Department [address] [place] [address] Pre-Anesthesia Evaluation 03/10/25 1628 MR#: [id number] Acct: [id number] Name: EDER BREEN Rep #:[id number] : 1955 69 From: Srinivasa Singh PCP: Dr. Hari Oneill, DO Status:AD M IN Y Race: C Location: [facility] MS302 -1 ASA Classification* ASA Classification ASA Classification: 3 Assessment & Plan Anesthesia* Anesthesia Assessment Anesthesia Assessment: Discussed sedation and/or anesthesia options, risks, benefits, and alternatives with patient/parents/legal guardian/POA. Questions invited. The patient/parents/legal guardian/POA seems to understand and agrees to proceedwith anesthesia plan. Reviewed the physical assessment, medical history, allergy history and patient home medications list prior to surgery/procedure/anesthetic and documented any changes. Performed airway and anesthesia risk assessments. Anesthesia Type Anesthesia Type: General and MAC History Source History Obtained from:: Patient and Chart Anesthesia Focused Assessment* Temperature: 97.6 F Pulse Rate: 72 Blood Pressure: 148/74 Respiratory Rate: 16 Pulse Ox: 99 Oxygen Delivery Method: Room Air Airway Assessment Mouth opens: >3 cm Mallampati Score: II Teeth Condition: Chipped/Broken and Missing Neck Range of motion (ROM): Limited ROM Labs Anesthesia Preop lab: CBC WBC 6.6 K/mm3 (4.4-11.0) 03/10/25 05:26 03/10/25 RBC 4.16 M/mm3 (4.6-6.2) L 03/10/25 05:26 03/10/25 Hgb 12.2 g/dL (13.0-16.5) L 03/10/25 05:26 5 Hct 37.3 % (40-54) L 03/10/25 05:26 03/10/25 Plt Count 188 K/mm3 (150-450) 03/10/25 05:26 03/10/25 CHEMISTRY Potassium 3.4 mmol/L (3.3-5.1) 03/10/25 05:26 03/10/25 Sodium 139 mmol/L (133-145) 03/10/25 05:26 03/10/25 Magnesium 2.1 mg/dL (1.5-2.2) 03/09/25 05:48 03/09/25 Phosphorus 3.5 mg/dL (2.7-4.5) 03/09/25 05:48 03/09/25 BUN 10 mg/dL (4-19) 03/10/25 05:26 03/10/25 Creatinine 0.99 mg/dL (0.70-1.20) 03/10/25 05:26 03/10/25 Glucose 98 mg/dL (70-99) 03/10/25 05:26 03/10/25 POC Glucose 106 mg/dL (74-106) 03/09/25 12:10 03/09/25 TSH 1.500 uIU/mL (0.300-4.200) 02/28/25 05:35 02/04 01/28 COAG PT 35.1 SECONDS (11.7-14.9) H 03/09/25 05:48 0811/28 Pre-Assessment Diagnosis/Proposed Procedure Planned Operative Procedure(s): EGD and colonoscopy Anesthesia History 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 When Was Last Pacemaker Check QUESTION #4 FULL TEXT: You/Your Family Experience fever (hyperthermia) with Anesthesia Last Oral Intake Last Oral intake: Last Oral Intake NPO since 08:12 03/10/25 14:42 Meds taken in AM with sips of Yes 03/10/25 14:42 water? Meds patient instructed to seizure meds with sip of h20 03/10/25 14:42 take am of surgery - PONV PONV - knit goods press hand: PONV - knit goods press hand Female HX of Motion Sickness HX of N/V After Surgery Non-Smoker Duration of Surgery greater than 60 minutes Number of Risk Factors PONV Score Height & Weight Height & Weight: Anesthesia: Height & Weight Height 6 ft 03/10/25 14:42 Weight: 131.496 kg 03/10/25 14:42 Body Mass Index (BMI) 39.3 03/10/25 14:42 Respiratory Assessment Respiratory Assessment - knit goods press hand: Respiratory Tract Infection Hx - knit goods press hand Hx Respiratory Tract Infection No 03/09/25 05:31 STOP Sleep Apnea STOP Sleep Apnea - knit goods press hand: STOP Sleep Apnea - knit goods press hand Hx Hypertension No 03/06/25 17:10 Hx Sleep Apnea No 03/06/25 17:10 CPAP No 03/06/25 17:10 BIPAP No 03/06/25 17:10 Do you snore loudly (louder No 03/06/25 17:10 than talking or can be heard Do you often feel tired/ No 03/06/25 17:10 fatigued/ sleepy during daytime? Has anyone observed you stop No 03/06/25 17:10 breathing during sleep? STOP Results Negative 03/06/25 17:10 QUESTION #5 FULL TEXT : Do you snore loudly (louder than talking or can be heard through closed doors)? 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 Specify any problems Hx of Preganancy in last 3 N/A 03/06/25 17:10 Months Nurse Filling Out Transfusion NMARTY 03/06/25 17:10 & Questions: Date: 03/06/25 03/06/25 17:10 Time: 17:31 03/06/25 17:10 Patient unable to answer at this time (ie. confused, unrespo /Reproduction History /Reproductive History - knit goods press hand: /Reproductive Hx- knit goods press hand Hx Now Gestational Age (in weeks): EDC: Hx Hx Para Hx Section SAB No 03/19/24 14:05 Active Medications Active Medications: Current Medications Generic Name Dose Route Start Last Admin Trade Name Freq PRN Reason Stop Dose Admin Acetaminophen 650 mg 03/05/25 17:58 Acetaminophen 325 Mg Tablet PO Q6H PRN PRN Pain 1-10 Or Fever>100.7 Furosemide 20 mg 03/06/25 10:00 03/09/25 17:54 Furosemide 20 Mg Tablet PO 20 mg DAILY FRANCOIS Administration Protocol Lactated Ringer's 1,000 mls @ 15 mls/hr 03/10/25 16:30 03/10/25 16:17 IV 15 mls/hr .Q48H FRANCOIS Administration Lacosamide 200 mg 03/05/25 22:00 03/10/25 08:18 Lacosamide 100 Mg Tablet PO 200 mg BID FRANCOIS Administration Lamotrigine 200 mg 03/05/25 22:00 03/10/25 08:15 Lamotrigine 100 Mg Tablet PO 200 mg BID FRANCOIS Administration Levetiracetam 1,500 mg 03/05/25 22:00 03/10/25 08:14 Levetiracetam 750 Mg Tablet PO 1,500 mg BID FRANCOIS Administration Levothyroxine Sodium 88 mcg 03/06/25 06:00 03/10/25 05:54 Levothyroxine 88 Mcg Tablet PO 88 mcg DAILY@0600 FRANCOIS Administration Melatonin 3 mg 03/05/25 17:58 Melatonin 3 Mg Tablet PO QHS PRN PRN INSOMNIA Ondansetron HCl 4 mg 03/05/25 17:58 03/08/25 09:32 Ondansetron 4 Mg/2 Ml Vial IV 4 mg Q8H PRN PRN Administration NAUSEA/VOMITING Potassium Chloride 10 meq 03/06/25 10:00 03/10/25 08:14 Potassium Chloride Oral Soln 20 Meq/15 Ml Udc PO 10 meq DAILY FRANCOIS Administration Sodium Chloride 10 - 40 ml 03/05/25 17:17 03/10/25 10:26 0.9% Saline Lock 10 Ml Syringe IV 10 ml UD PRN Administration SALINE FLUSH Sodium Chloride 10 - 40 ml 03/06/25 17:32 0.9% Saline Lock 10 Ml Syringe IV UD PRN SALINE FLUSH Tamsulosin HCl 0.4 mg 03/05/25 22:00 03/09/25 20:54 Tamsulosin Hcl 0.4 Mg Capsule PO 0.4 mg QHS FRANCOIS Administration Warfarin Sodium 7.5 mg 03/06/25 17:00 03/07/25 16:25 Warfarin 7.5 Mg Tablet PO 7.5 mg DAILY@1700 FRANCOIS Administration Zonisamide 100 mg 03/05/25 22:00 03/10/25 08:14 Zonisamide 100 Mg Capsule PO 100 mg BID FRANCOIS Administration PFSH Medical History Seizures Loss of one eye Wears glasses Cancer Thyroid disease Arthritis Prostate disease Bladder disease Low iron High cholesterol Diarrhea Gastric reflux Non-smoker History of pain when walking Heart murmur Localized swelling of both lower legs Abnormal biliary HIDA scan Anxiety and depression HTN (hypertension) History of DVT of lower extremity Seizure disorder Home Medications ?Medication ?Instructions ?Recorded ?Last Taken ?Type lamotrigine 200 mg tablet 200 mg PO BID SEIZURES 03/1203/21/24 History (Lamictal) lacosamide 200 mg tablet 200 mg PO BID SEIZURES 09/1703/04/25 History zonisamide 100 mg capsule 100 mg PO BID SEIZURES 09/1703/20/24 History warfarin 7.5 mg tablet 7.5 mg PO DAILY BLOOD THINNE R 09/12/21 03/16/24 History levetiracetam 750 mg tablet 1,500 mg PO BID SEIZURES 0 03/11/24 03/21/24 History levothyroxine 88 mcg tablet 88 mcg PO DAILY THYROID 03/21/24 History furosemide 40 mg tablet 20 mg PO DAILY water pill Unknown History ibuprofen 600 mg tablet 600 mg PO Q6H PRN fever or p ain 03/21/24 03/04/25 Rx #20 tabs potassium chloride 20 mEq/15 mL 10 meq PO DAILY supple ment 02/27/25 Unknown History oral liquid tamsulosin 0.4 mg capsule 0.4 mg PO QHS prostate 02/27 Unknown History Allergy/AdvReac Type Severity Reaction Status Date / Time No Known Allergies Allergy Verified 03/05/25 11:42 Surgical History Hx of colonoscopy History of vascular access device Hx of vascular surgery Hx of left cataract extraction Social History household members: spouse Smoking Status: Never smoker Review of Systems (Anesthesia) ROS Narrative System reviewed and no additional complaints, except as documented. 03/10/25 1637 <Electronically signed by Srinivasa Odonnell MD> Date _ Srinivasa Odonnell MD Cosigner Signature: Date CC: ~ Signed [facility] Work Phone: [phone]) 137-884208-05-2025 Procedure note [facility] Medical Records Department [address] [place] [address] Colonoscopy Report MR#: [id number] Acct: [id number] Name: EDER BREEN Rep #:[id number] : 1955 69 From: Luis A Friend DO PCP: Dr. Hari Oneill DO Status:AD M IN Patient Name: Eder Breen Procedure Date: 03/10/2025 5:48 PM Date of : 1955 Age: 69 Procedure: Colonoscopy Indications: Generalized abdominal pain, Generalized abdominal distress, Abnormal CT of the GI tract Providers: Luis A Singh DO Medicines: Monitored Anesthesia Care Patient Profile: This is a 69 year old male. Refer to note in patient chart for documentation of history and physical. Patient has symptoms of acute abdominal distention and acute global abdominal pain. Last Colonoscopy: date unknown. Unable to locate last colonoscopy report. Complications: No immediate complications. Procedure: Pre-Anesthesia Assessment: - Prior to the procedure, a History and Physical was performed, and patient medications and allergies were reviewed. The patient is competent. The risks and benefits of the procedure and the sedation options and risks were discussed with the patient. All questions were answered and informed consent was obtained. Patient identification and proposed procedure were verified by the physician in the pre-procedure area. Mental Status Examination: alert and oriented. Airway Examination: normal oropharyngeal airway and neck mobility. Respiratory Examination: clear to auscultation. CV Examination: normal. Prophylactic Antibiotics: The patient does not require prophylactic antibiotics. Prior Anticoagulants: The patient has taken no anticoagulant or antiplatelet agents. ASA Grade Assessment: II - A patient with mild systemic disease. After reviewing the risks and benefits, the patient was deemed in satisfactory condition to undergo the procedure. The anesthesia plan was to use monitored anesthesia care (MAC). Immediately prior to administration of medications, the patient was re-assessed for adequacy to receive sedatives. The heart rate, respiratory rate, oxygen saturations, blood pressure, adequacy of pulmonary ventilation, and response to care were monitored throughout the procedure. The physical status of the patient was re-assessed after the procedure. After I obtained informed consent, the scope was passed under direct vision. Throughout the procedure, the patient's blood pressure, pulse, and oxygen saturations were monitored continuously. The was introduced through the anus and advanced to the cecum, identified by appendiceal orifice and ileocecal valve. The colonoscopy was performed without difficulty. The patient tolerated the procedure well. The quality of the bowel preparation was fair. The ileocecal valve and the rectum were photographed. Scope In: 5:52:10 PM Scope Withdrawal Time 0 hours 3 minutes 52 seconds Scope Out: 6:01:09 PM Total Procedure Duration Time 0 hours 8 minutes 59 seconds Findings: The perianal and digital rectal examinations were normal. The lumen of the descending colon, splenic flexure, transverse colon, hepatic flexure and ascending colon was moderately dilated. Biopsies were taken with a cold forceps for histology. Verification of patient identification for the specimen was done. Estimated blood loss was minimal. Stool was found in the transverse colon, at the hepatic flexure, in the ascending colon and in the cecum, precluding visualization. Impression: - Preparation of the colon was fair. - Dilated in the descending colon, at the splenic flexure, in the transverse colon, at the hepatic flexure and in the ascending colon. Biopsied. - Stool in the transverse colon, at the hepatic flexure, in the ascending colon and in the cecum. - Chronic intestinal pseudoobstruction - Absolutely no narcotics - Metoclopramide 10 mg IV every 6 hours to increase gastric motility - Azithromycin 500 mg IV once a day to increase small bowel motility - octreotide 100 mcg/day, subcutaneous injection to increase small bowel motility and decrease small bacterial overgrowth - Augmentin 875/125 p.o. twice daily x 10 days - Acetylcholinesterase inhibitors (neostigmine, 8 mg/d, intravenous injection or pyridostigmine, 20 mg/d, oral administration) to increase colonic motility Recommendation: - [facility]. - Repeat colonoscopy in 3 months to check healing. - Continue present medications. Procedure Code(s): --- Professional --- 65762, Colonoscopy, flexible; with biopsy, single or multiple CPT copyright 2021 [employer] [place] [employer]. All rights reserved. The codes documented in this report are preliminary and upon braille coder review may be revised to meet current compliance requirements. Luis A Singh DO 03/10/2025 6:29:59 PM This report has been signed electronically. Number of Addenda: 0 Note Initiated On: 03/10/2025 5:48 PM 03/10/25 6750 Date _ Luis A Lerner Signature: Date (if indicated) CC: Dr. Hari Oneill DO; Luis A Singh DO ~ Date Dictated: 03/10/251747 Date Transcribed: 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: ABRAHAM Signed [facility]08-05-2025 Procedure note [facility] Medical Records Department [address] [place] [address] Provation Physician Letter MR#: [id number] Acct: [id number] Name: EDER BREEN Rep #:[id number] : 1955 69 From: Luis A Singh DO PCP: Dr. Hari Oneill DO Status:AD M IN 03/10/2025 Hari Oneill [address] [place] [address] Re : Colonoscopy procedure for Eder Breen Dear Dr. Oneill This procedure was performed on Monday, March 10, 2025. My impressions and recommendations are as follows: Impressions : - Preparation of the colon was fair. - Dilated in the descending colon, at the splenic flexure, in the transverse colon, at the hepatic flexure and in the ascending colon. Biopsied. - Stool in the transverse colon, at the hepatic flexure, in the ascending colon and in the cecum. - Chronic intestinal pseudoobstruction - Absolutely no narcotics - Metoclopramide 10 mg IV every 6 hours to increase gastric motility - Azithromycin 500 mg IV once a day to increase small bowel motility - octreotide 100 mcg/day, subcutaneous injection to increase small bowel motility and decrease small bacterial overgrowth - Augmentin 875/125 p.o. twice daily x 10 days - Acetylcholinesterase inhibitors (neostigmine, 8 mg/d, intravenous injection or pyridostigmine, 20 mg/d, oral administration) to increase colonic motility Recommendations : - [facility]. - Repeat colonoscopy in 3 months to check healing. - Continue present medications. My findings are described in the full procedure note, which is enclosed. If I can be of further assistance, please feel free to contact me at . Sincerely, Luis A Singh DO 03/10/2025 6:29:59 PM This report has been signed electronically. 03/10/251829 Date _ Luis A Singh Cosigner Signature: Date (if indicated) CC: Dr. Duncan Rashid DO; Dr. Carlton Davis MD; Dr. Hari Oneill DO;Dr. Danae Stanton MD ~ Date Dictated: 03/10/25 1748 Date Transcribed: 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: RF Signed [facility]08-05-2025 Consult note [facility] Medical Records Department [address] [place] [address] Anesthesia Postop Eval I 03/10/251813 MR#: [id number] Acct: [id number] Name: EDER RBEEN Rep #:[id number] : 1955 69 From: Srinivasa Singh PCP: Dr. Hari Oneill DO Status:AD M IN Y Race: C Location: [place] [address] Anesthesia: Postop Eval I Current Vital Signs Temperature: 97.2 F Pulse Rate: 69 Blood Pressure: 132/69 Respiratory Rate: 16 Pulse Ox: 100 Oxygen Delivery Method: Room Air Assessment Airway patent: Yes Spontaneous unlabored respirations: Yes Mental status: Awake nausea: No Vomiting: No Anesthesia Complication: No Fluid Hydration Crystalloid volume administer (ml): 300 Total IV fluid infused: 300 Progress Note Anesthesia document: Postop Eval 1 completed: Yes 03/10/251813 > Date _ Srinivasa Aceves Signature: Date CC: ~ Signed [facility]08-05-2025 Procedure note [facility] Medical Records Department [address] [place] [address] EGD Report MR#: [id number] Acct: [id number] Name: EDER BREEN Rep #:[id number] : 1955 69 From: Luis A Singh DO PCP: Dr. Hari Oneill DO Status:AD M IN Patient Name: Eder Breen Procedure Date: 03/10/2025 5:24 PM Date of : 1955 Age: 69 Procedure: Upper GI endoscopy Indications: Epigastric abdominal pain, Dyspepsia, Failure to respond to medical treatment Providers: Luis A Singh DO Medicines: Monitored Anesthesia Care Patient Profile: This is a 69 year old male. Refer to note in patient chart for documentation of history and physical. Patient has symptoms of acute abdominal distention and acute global abdominal pain. Complications: No immediate complications. Procedure: Pre-Anesthesia Assessment: - Prior to the procedure, a History and Physical was performed, and patient medications and allergies were reviewed. The patient is competent. The risks and benefits of the procedure and the sedation options and risks were discussed with the patient. All questions were answered and informed consent was obtained. Patient identification and proposed procedure were verified by the physician in the pre-procedure area. Mental Status Examination: alert and oriented. Airway Examination: normal oropharyngeal airway and neck mobility. Respiratory Examination: clear to auscultation. CV Examination: normal. Prophylactic Antibiotics: The patient does not require prophylactic antibiotics. Prior Anticoagulants: The patient has taken no anticoagulant or antiplatelet agents. ASA Grade Assessment: II - A patient with mild systemic disease. After reviewing the risks and benefits, the patient was deemed in satisfactory condition to undergo the procedure. The anesthesia plan was to use monitored anesthesia care (MAC). Immediately prior to administration of medications, the patient was re-assessed for adequacy to receive sedatives. The heart rate, respiratory rate, oxygen saturations, blood pressure, adequacy of pulmonary ventilation, and response to care were monitored throughout the procedure. The physical status of the patient was re-assessed after the procedure. After obtaining informed consent, the endoscope was passed under direct vision. Throughout the procedure, the patient's blood pressure, pulse, and oxygen saturations were monitored continuously. The was introduced through the mouth, and advanced to the fourth part of the duodenum. Small bowel enteroscopy was deemed necessary. The upper GI endoscopy was accomplished without difficulty. The patient tolerated the procedure well. Scope In: 5:45:48 PM Scope Out: 5:48:33 PM Total Procedure Duration Time 0 hours 2 minutes 45 seconds Findings: The examined esophagus was normal. Normal mucosa was found in the entire examined stomach. However his stomach was very dilated. All the air was removed from the stomach. Patchy mildly erythematous mucosa without active bleeding and with no stigmata of bleeding was found in the duodenal bulb. Biopsies were taken with a cold forceps for histology. Verification of patient identification for the specimen was done. Estimated blood loss was minimal. The duodenum also appeared very dilated. Impression: - Normal esophagus. - Normal mucosa was found in the entire stomach. - Erythematous duodenopathy. Biopsied. Recommendation: - [facility]. - Clear liquid diet. - Continue present medications. Procedure Code(s): --- Professional --- 08511, Small intestinal endoscopy, enteroscopy beyond second portion of duodenum, not including ileum; with biopsy, single or multiple CPT copyright 2021 [employer] [place] [employer]. All rights reserved. The codes documented in this report are preliminary and upon braille coder review may be revised to meet current compliance requirements. Luis A Singh DO 03/10/2025 6:06:58 PM This report has been signed electronically. Number of Addenda: 0 Note Initiated On: 03/10/2025 5:24 PM 03/10/25 1807 Date _ Luis A Singh DO Cosigner Signature: Date (if indicated) CC: Dr. Hari Oneill DO; Luis A Singh DO ~ Date Dictated: 03/10/25 2854 Date Transcribed: 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: ABRAHAM Signed [facility]08-05-2025 Procedure note [facility] Medical Records Department [address] [place] [id number] Provation Physician Letter MR#: [id number] Acct: [id number] Name: EDER BREEN Rep #:[id number] : 1955 69 From: Luis A Singh DO PCP: Dr. Hari Oneill DO Status:AD M IN 03/10/2025 Hari Oneill [address] [place] [id number] Re : Upper GI endoscopy procedure for Eder Breen Dear Dr. Oneill This procedure was performed on Monday, March 10, 2025. My impressions and recommendations are as follows: Impressions : - Normal esophagus. - Normal mucosa was found in the entire stomach. - Erythematous duodenopathy. Biopsied. Recommendations : - [facility]. - Clear liquid diet. - Continue present medications. My findings are described in the full procedure note, which is enclosed. If I can be of further assistance, please feel free to contact me at . Sincerely, Luis A Singh DO 03/10/2025 6:06:58 PM This report has been signed electronically. 03/10/25 180 Date _ Luis A Lerner Signature: Date (if indicated) CC: Dr. Duncan Rashid DO; Dr. Carlton Davis MD; Dr. Hari Oneill DO;Dr. Danae Stanton MD ~ Date Dictated: 03/10/25 172 Date Transcribed: 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: RF Signed [facility]08-05-2025 Consult note [facility] Medical Records Department [address] [place] [address] Pre-Anesthesia Evaluation 03/10/25 1628 MR#: [id number] Acct: [id number] Name: EDER BREEN Rep #:[id number] : 1955 69 From: Srinivasa Singh PCP: Dr. Hari Oneill, DO Status:AD M IN Y Race: C Location: MS3 MS302 -1 ASA Classification* ASA Classification ASA Classification: 3 Assessment & Plan Anesthesia* Anesthesia Assessment Anesthesia Assessment: Discussed sedation and/or anesthesia options, risks, benefits, and alternatives with patient/parents/legal guardian/POA. Questions invited. The patient/parents/legal guardian/POA seems to understand and agrees to proceedwith anesthesia plan. Reviewed the physical assessment, medical history, allergy history and patient home medications list prior to surgery/procedure/anesthetic and documented any changes. Performed airway and anesthesia risk assessments. Anesthesia Type Anesthesia Type: General and MAC History Source History Obtained from:: Patient and Chart Anesthesia Focused Assessment* Temperature: 97.6 F Pulse Rate: 72 Blood Pressure: 148/74 Respiratory Rate: 16 Pulse Ox: 99 Oxygen Delivery Method: Room Air Airway Assessment Mouth opens: >3 cm Mallampati Score: II Teeth Condition: Chipped/Broken and Missing Neck Range of motion (ROM): Limited ROM Labs Anesthesia Preop lab: CBC WBC 6.6 K/mm3 (4.4-11.0) 03/10/25 05:26 03/10/25 RBC 4.16 M/mm3 (4.6-6.2) L 03/10/25 05:26 03/10/25 Hgb 12.2 g/dL (13.0-16.5) L 03/10/25 05:26 5 Hct 37.3 % (40-54) L 03/10/25 05:26 03/10/25 Plt Count 188 K/mm3 (150-450) 03/10/25 05:26 03/10/25 CHEMISTRY Potassium 3.4 mmol/L (3.3-5.1) 03/10/25 05:26 03/10/25 Sodium 139 mmol/L (133-145) 03/10/25 05:26 03/10/25 Magnesium 2.1 mg/dL (1.5-2.2) 03/09/25 05:48 03/09/25 Phosphorus 3.5 mg/dL (2.7-4.5) 03/09/25 05:48 03/09/25 BUN 10 mg/dL (4-19) 03/10/25 05:26 03/10/25 Creatinine 0.99 mg/dL (0.70-1.20) 03/10/25 05:26 03/10/25 Glucose 98 mg/dL (70-99) 03/10/25 05:26 03/10/25 POC Glucose 106 mg/dL (74-106) 03/09/25 12:10 03/09/25 TSH 1.500 uIU/mL (0.300-4.200) 02/28/25 05:35 0701/28 COAG PT 35.1 SECONDS (11.7-14.9) H 03/09/25 05:48 11/28 Pre-Assessment Diagnosis/Proposed Procedure Planned Operative Procedure(s): EGD and colonoscopy Anesthesia History 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 When Was Last Pacemaker Check QUESTION #4 FULL TEXT: You/Your Family Experience fever (hyperthermia) with Anesthesia Last Oral Intake Last Oral intake: Last Oral Intake NPO since 08:12 03/10/25 14:42 Meds taken in AM with sips of Yes 03/10/25 14:42 water? Meds patient instructed to seizure meds with sip of h20 03/10/25 14:42 take am of surgery - PONV PONV - knit goods press hand: PONV - knit goods press hand Female HX of Motion Sickness HX of N/V After Surgery Non-Smoker Duration of Surgery greater than 60 minutes Number of Risk Factors PONV Score Height & Weight Height & Weight: Anesthesia: Height & Weight Height 6 ft 03/10/25 14:42 Weight: 131.496 kg 03/10/25 14:42 Body Mass Index (BMI) 39.3 03/10/25 14:42 Respiratory Assessment Respiratory Assessment - knit goods press hand: Respiratory Tract Infection Hx - knit goods press hand Hx Respiratory Tract Infection No 03/09/25 05:31 STOP Sleep Apnea STOP Sleep Apnea - knit goods press hand: STOP Sleep Apnea - knit goods press hand Hx Hypertension No 03/06/25 17:10 Hx Sleep Apnea No 03/06/25 17:10 CPAP No 03/06/25 17:10 BIPAP No 03/06/25 17:10 Do you snore loudly (louder No 03/06/25 17:10 than talking or can be heard Do you often feel tired/ No 03/06/25 17:10 fatigued/ sleepy during daytime? Has anyone observed you stop No 03/06/25 17:10 breathing during sleep? STOP Results Negative 03/06/25 17:10 QUESTION #5 FULL TEXT : Do you snore loudly (louder than talking or can be heard through closeddoors)? 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 Specify any problems Hx of Preganancy in last 3 N/A 03/06/25 17:10 Months Nurse Filling Out Transfusion NMARTY 03/06/25 17:10 & Questions: Date: 03/06/25 03/06/25 17:10 Time: 17:31 03/06/25 17:10 Patient unable to answer at this time (ie. confused, unrespo /Reproduction History /Reproductive History - knit goods press hand: /Reproductive Hx- knit goods press hand Hx Now Gestational Age (in weeks): EDC: Hx Hx Para Hx Section SAB No 03/19/24 14:05 Active Medications Active Medications: Current Medications Generic Name Dose Route Start Last Admin Trade Name Freq PRN Reason Stop Dose Admin Acetaminophen 650 mg 03/05/25 17:58 Acetaminophen 325 Mg Tablet PO Q6H PRN PRN Pain 1-10 Or Fever>100.7 Furosemide 20 mg 03/06/25 10:00 03/09/25 17:54 Furosemide 20 Mg Tablet PO 20 mg DAILY FRANCOIS Administration Protocol Lactated Ringer's 1,000 mls @ 15 mls/hr 03/10/25 16:30 03/10/25 16:17 IV 15 mls/hr .Q48H FRANCOIS Administration Lacosamide 200 mg 03/05/25 22:00 03/10/25 08:18 Lacosamide 100 Mg Tablet PO 200 mg BID FRANCOIS Administration Lamotrigine 200 mg 03/05/25 22:00 03/10/25 08:15 Lamotrigine 100 Mg Tablet PO 200 mg BID FRANCOIS Administration Levetiracetam 1,500 mg 03/05/25 22:00 03/10/25 08:14 Levetiracetam 750 Mg Tablet PO 1,500 mg BID FRANCOIS Administration Levothyroxine Sodium 88 mcg 03/06/25 06:00 03/10/25 05:54 Levothyroxine 88 Mcg Tablet PO 88 mcg DAILY@0600 FRANCOIS Administration Melatonin 3 mg 03/05/25 17:58 Melatonin 3 Mg Tablet PO QHS PRN PRN INSOMNIA Ondansetron HCl 4 mg 03/05/25 17:58 03/08/25 09:32 Ondansetron 4 Mg/2 Ml Vial IV 4 mg Q8H PRN PRN Administration NAUSEA/VOMITING Potassium Chloride 10 meq 03/06/25 10:00 03/10/25 08:14 Potassium Chloride Oral Soln 20 Meq/15 Ml Udc PO 10 meq DAILY FRANCOIS Administration Sodium Chloride 10 - 40 ml 03/05/25 17:17 03/10/25 10:26 0.9% Saline Lock 10 Ml Syringe IV 10 ml UD PRN Administration SALINE FLUSH Sodium Chloride 10 - 40 ml 03/06/25 17:32 0.9% Saline Lock 10 Ml Syringe IV UD PRN SALINE FLUSH Tamsulosin HCl 0.4 mg 03/05/25 22:00 03/09/25 20:54 Tamsulosin Hcl 0.4 Mg Capsule PO 0.4 mg QHS FRANCOIS Administration Warfarin Sodium 7.5 mg 03/06/25 17:00 03/07/25 16:25 Warfarin 7.5 Mg Tablet PO 7.5 mg DAILY@1700 FRANCOIS Administration Zonisamide 100 mg 03/05/25 22:00 03/10/25 08:14 Zonisamide 100 Mg Capsule PO 100 mg BID FRANCOIS Administration PFSH Medical History Seizures Loss of one eye Wears glasses Cancer Thyroid disease Arthritis Prostate disease Bladder disease Low iron High cholesterol Diarrhea Gastric reflux Non-smoker History of pain when walking Heart murmur Localized swelling of both lower legs Abnormal biliary HIDA scan Anxiety and depression HTN (hypertension) History of DVT of lower extremity Seizure disorder Home Medications ?Medication ?Instructions ?Recorded ?Last Taken ?Type lamotrigine 200 mg tablet 200 mg PO BID SEIZURES 03/1203/21/24 History (Lamictal) lacosamide 200 mg tablet 200 mg PO BID SEIZURES 09/1703/04/25 History zonisamide 100 mg capsule 100 mg PO BID SEIZURES 09/1703/20/24 History warfarin 7.5 mg tablet 7.5 mg PO DAILY BLOOD THINNE R 09/12/21 03/16/24 History levetiracetam 750 mg tablet 1,500 mg PO BID SEIZURES 0 03/11/24 03/21/24 History levothyroxine 88 mcg tablet 88 mcg PO DAILY THYROID 03/21/24 History furosemide 40 mg tablet 20 mg PO DAILY water pill Unknown History ibuprofen 600 mg tablet 600 mg PO Q6H PRN fever or p ain 03/21/24 03/04/25 Rx #20 tabs potassium chloride 20 mEq/15 mL 10 meq PO DAILY supple ment 02/27/25 Unknown History oral liquid tamsulosin 0.4 mg capsule 0.4 mg PO QHS prostate 02/27 Unknown History Allergy/AdvReac Type Severity Reaction Status Date / Time No Known Allergies Allergy Verified 03/05/25 11:42 Surgical History Hx of colonoscopy History of vascular access device Hx of vascular surgery Hx of left cataract extraction Social History household members: spouse Smoking Status: Never smoker Review of Systems (Anesthesia) ROS Narrative System reviewed and no additional complaints, except as documented. 03/10/25 1637 MD> Date _ Srinivasa Odonnell MD Cosigner Signature: Date CC: ~ Signed [facility]08-05-2025 Progress note Author Carlton Davis [facility] Note Date/Time March 10, 2025 7:4 6am [facility] Medical Records Department [address] [place] [address] Progress Note - Hospitalist 03/10/25 0740 MR#: [id number] Acct: [id number] Name: EDER BREEN Rep #:[id number] : 1955 69 From: Carlton Davis MD PCP: Dr. Hari Oneill, DO Status:AD M IN Location: [place] [address] Reason for Visit Chief Complaint: Persistent abdominal pain with diarrhea and weakness Subjective Subjective Patient is a 69-year-old male who presented persistent abdominal pain with diarrhea and weakness. Objective Data Objective Data Vital Signs: Vital Signs Temp Pulse Resp BP Pulse Ox O2 Del Method 98.4 F 77 16 119/69 98 Room Air 03/10/25 06:00 03/10/25 06:00 03/10/25 06:00 03/10/25 06:00 03/10/25 06:00 03/10/25 06:00 Oxygen Delivery Method Room Air Weight: 131.496 kg Body Mass Index (BMI) 39.3 Intake & Output: Intake and Output for Last 24 Hours 03/08/25 03/09/25 03/10/25 23:59 23:59 23:59 Intake Total 2174 / 2174 691.67 / 691.67 Output Total 450 / 450 625 / 625 1025 / 1025 Balance 1724 / 1724 66.67 / 66.67 -1025 / -1025 Lab / Micro Data 03/10/25 05:26 03/10/25 05:26 Labs: Laboratory Results - last 24 hr 03/09/25 05:48: Phosphorus 3.5, Magnesium 2.1 03/09/25 12:10: POC Glucose 106 03/10/25 05:26: WBC 6.6, RBC 4.16 L, Hgb 12.2 L, Hct 37.3 L, MCV 89.7, MCH 29.3,MCHC 32.7, RDW Std Deviation 48.1 H, RDW Coeff of Vaishnavi 14.6, Plt Count 188, MPV 9.1, Sodium 139, Potassium 3.4, Chloride 106, Carbon Dioxide 21.0, Anion Gap 12,BUN 10, Creatinine 0.99, Estim Creat Clear Calc 95.99, Est GFR (MDRD) Non-Af 82,BUN/Creatinine Ratio 10.1, Glucose 98, Calcium 8.9, Total Bilirubin 0.50, AST 22, ALT 17, Alkaline Phosphatase 134 H, Total Protein 6.6, Albumin 4.1, Globulin2.5, Albumin/Globulin Ratio 1.6 Micro: Microbiology 03/08/25 13:10 Stool Stool Lactoferrin - Final 03/08/25 13:10 Stool Enteric Bacteriology - Final Physical Exam Narrative GENERAL: cooperative HEENT: Atraumatic; normocephalic EYES; right eye enucleated NECK; supple, normal thyroid, RESPIRATORY: Diminished to auscultation CARDIOVASCULAR: Regular S1 S2, GI: soft, normoactive bowel sounds, : No Renal angle tenderness; EXTREMITIES: No edema, no clubbing, MUSCULOSKELETAL: no muscle wasting NEURO: Awake; no lateralizing signs. SKIN: No Rash PSYCH; Flat affect Assessment & Plan Assessment/Plan (1) Abdominal pain: (2) Abdominal distension: PLAN: Plan Patient is a 69-year-old male who presented persistent abdominal pain with diarrhea and weakness. 1. Persistent abdominal pain with distention and diarrhea ? GI following. Recent hospitalization here, GI and general surgery follow-up. There was concern for Kimberly syndrome at that time. Repeat CT abdomen pelvis on this admission moderate amount of fecal material throughout the colon, venouscollateral vessels seen through the subcu tissues, gallstone in neck of the gallbladder, no other concerning findings. Gallbladder ultrasound showed solitary stone in neck of gallbladder with hepatomegaly and fatty infiltration of liver. No LFT elevation noted, no concern for acute cystitis. CT abdomen pelvis notably is stable from previous. Plan is for EGD and colonoscopy today, we will follow-up results. Appreciate further GI recommendations. ? 03/10/2025; patient was kept n.p.o. after midnight with plan for patient to undergo EGD and colonoscopy 2. Hyponatremia, resolved ? Sodium 120 on admit. Improved back to normal range with IV fluid resuscitation. ? 03/10/2025; sodium levels up to 139 3. Hypokalemia ? Potassium 3.3 on 03/08. Repleting as needed. ? 03/10/2025; potassium levels at 3.4 ordered additional IV potassium 4. Mild acute on chronic debility ? PT/OT/case management following. Patient lives at home with his , has hadsome difficulty caring for himself with his recent medical issues. Has had fairly good therapy scores while inpatient, planning for outpatient therapy on discharge. 5. Class II obesity with BMI of 39.9 ? Complicating care weight loss advised 6. Seizure disorder - Continue home lacosamide, Lamictal, Keppra and zonisamide. 7. History of DVT -s/p IVC filter placement: INR therapeutic at 2.4 on admit. Continue home Coumadin. 8. Hypothyroidism ? Patient is on levothyroxine home dose continued 9. GERD ? On PPI 10. DVT prophylaxis ? On Coumadin Time spent in the patient's overall evaluation,decision-making process, review of diagnostic data, adjustment of management, discussion with other providers, nursing nursing and ancillary staff involved in patient's care documentation,38 Minutes Charges/Coding Visit Charges Inpatient E&M: 36181 Subs Hosp L2 03/10/25 3521 <Electronically signed by Carlton Davis MD> Cosigner Signature (if applicable): CC: ~ Signed [facility] Work Phone: 1(378) 378-975908-05-2025 Progress note [facility] Medical Records Department [address] [place] [address] Progress Note - Hospitalist 03/10/25739 MR#: [id number] Acct: [id number] Name: EDER BREEN Rep #:[id number] : 1955 69 From: Carlton Davis MD PCP: Dr. Hari Oneill, DO Status:AD M IN Location: [place] [address] Reason for Visit Chief Complaint: Persistent abdominal pain with diarrhea and weakness Subjective Subjective Patient is a 69-year-old male who presented persistent abdominal pain with diarrhea and weakness. Objective Data Objective Data Vital Signs: Vital Signs Temp Pulse Resp BP Pulse Ox O2 Del Method 98.4 F 77 16 119/69 98 Room Air 03/10/25 06:00 03/10/25 06:00 03/10/25 06:00 03/10/25 06:00 03/10/25 06:00 03/10/25 06:00 Oxygen Delivery Method Room Air Weight: 131.496 kg Body Mass Index (BMI) 39.3 Intake & Output: Intake and Output for Last 24 Hours 03/08/25 03/09/25 03/10/25 23:59 23:59 23:59 Intake Total 2174 / 2174 691.67 / 691.67 Output Total 450 / 450 625 / 625 1025 / 1025 Balance 1724 / 1724 66.67 / 66.67 -1025 / -1025 Lab / Micro Data 03/10/25 05:26 03/10/25 05:26 Labs: Laboratory Results - last 24 hr 03/09/25 05:48: Phosphorus 3.5, Magnesium 2.1 03/09/25 12:10: POC Glucose 106 03/10/25 05:26: WBC 6.6, RBC 4.16 L, Hgb 12.2 L, Hct 37.3 L, MCV 89.7, MCH 29.3,MCHC 32.7, RDW Std Deviation 48.1 H, RDW Coeff of Vaishnavi 14.6, Plt Count 188, MPV 9.1, Sodium 139, Potassium 3.4, [id number], Carbon Dioxide 21.0, Anion Gap 12,BUN 10, Creatinine 0.99, Estim Creat Clear Calc 95.99, Est GFR (MDRD) Non-Af 82,BUN/Creatinine Ratio 10.1, Glucose 98, Calcium 8.9, Total Bilirubin 0.50, AST 22, ALT 17, Alkaline Phosphatase 134 H, Total Protein 6.6, Albumin 4.1, Globulin2.5, Albumin/Globulin Ratio 1.6 Micro: Microbiology 03/08/25 13:10 Stool Stool Lactoferrin - Final 03/08/25 13:10 Stool Enteric Bacteriology - Final Physical Exam Narrative GENERAL: cooperative HEENT: Atraumatic; normocephalic EYES; right eye enucleated NECK; supple, normal thyroid, RESPIRATORY: Diminished to auscultation CARDIOVASCULAR: Regular S1 S2, GI: soft, normoactive bowel sounds, : No Renal angle tenderness; EXTREMITIES: No edema, no clubbing, MUSCULOSKELETAL: no muscle wasting NEURO: Awake; no lateralizing signs. SKIN: No Rash PSYCH; Flat affect Assessment & Plan Assessment/Plan (1) Abdominal pain: (2) Abdominal distension: PLAN: Plan Patient is a 69-year-old male who presented persistent abdominal pain with diarrhea and weakness. 1. Persistent abdominal pain with distention and diarrhea ? GI following. Recent hospitalization here, GI and general surgery follow-up. 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 Repeat CT abdomen pelvis on this admission moderate amount of fecalmaterial throughout the colon, venouscollateral vessels seen through the subcu tissues, gallstone in neck of the gallbladder, no other concerning findings. Gallbladder ultrasound showed solitary stone in neck of gallbladder with hepatomegaly and fatty infiltration of liver. No LFT elevation noted, no concern for acute cystitis. CT abdomen pelvis notably is stable from previous. Plan is for EGD and colonoscopy today, we will follow-up results. Appreciate further GI recommendations. ? 03/10/2025; patient was kept n.p.o. after midnight with plan for patient to undergo EGD and colonoscopy 2. Hyponatremia, resolved ? Sodium 120 on admit. Improved back to normal range with IV fluid resuscitation. ? 03/10/2025; sodium levels up to 139 3. Hypokalemia ? Potassium 3.3 on 03/08. Repleting as needed. ? 03/10/2025; potassium levels at 3.4 ordered additional IV potassium 4. Mild acute on chronic debility ? PT/OT/case management following. Patient lives at home with his , has hadsome difficulty caring for himself with his recent medical issues. Has had fairly good therapy scores while inpatient, planning for outpatient therapy on discharge. 5. Class II obesity with BMI of 39.9 ? Complicating care weight loss advised 6. Seizure disorder - Continue home lacosamide, Lamictal, Keppra and zonisamide. 7. History of DVT -s/p IVC filter placement: INR therapeutic at 2.4 on admit. Continue home Coumadin. 8. Hypothyroidism ? Patient is on levothyroxine home dose continued 9. GERD ? On PPI 10. DVT prophylaxis ? On Coumadin Time spent in the patient's overall evaluation,decision-making process, review of diagnostic data, adjustment of management, discussion with other providers, nursing nursing and ancillary staff involved in patient's care documentation,38 Minutes Charges/Coding Visit Charges Inpatient E&M: 87383 Subs Hosp L2 03/10/25 0746 Cosigner Signature (if applicable): CC: ~ Signed [facility]08-04-2025 Progress note Author Luis A Singh [facility] Note Date/Time March 09, 2025 7:0 2pm [facility] Medical Records Department [address] [place] [address] Progress Note 03/09/25 1900 MR#: [id number] Acct: [id number] Name: EDER BREEN Rep #:[id number] : 1955 69 From: Luis A Singh DO PCP: Dr. Hari Oneill, DO Status:AD M IN Location: [address] Progress Note Patient was not able to have a EGD colonoscopy today. Physical Exam Const alert, oriented x3, no apparent distress and healthy appearing General Appearance: cooperative GI normal to inspection, nondistended, normoactive bowel sounds, soft to palpation,non-tender and non-distended Percussion: normal to percussion Rectal Exam: deferred Assessment & Plan Assessment/Plan (1) Abdominal distension: (2) Abdominal pain: PLAN: 69-year-old patient presents with primary complaint of gas and bloating, which has been ongoing for several months. He reports generalized abdominal discomfort and distention, feeling full easily after eating small amounts. He does not have a known history of cirrhotic or non-cirrhotic portal hypertension. He denies history of cirrhosis or other chronic liver diseases such as viral hepatitis, biliary cirrhosis, steatohepatitis, or autoimmune hepatitis. , * Differential diagnoses for gas/bloat in this setting include: * Irritable Bowel Syndrome (IBS):?May present with gas and bloating. * Gastroparesis, although less likely to be the primary cause of these symptoms in the setting of portal hypertension. * Small Intestinal Bacterial Overgrowth (SIBO):?Can cause bloating and gas. * Dietary Factors:?Certain foods can exacerbate gas and bloating. * Further evaluation needed to confirm the cause of the gas and bloating. * Such as EGD with biopsies, stool for pancreatic elastase, autoantibodies for celiac disease, gastric emptying study * If workup is negative then I would recommend vascular consultation due to CT abnormalities of multiple portal collateral mesenteric veins PLAN: Plan 03/07/2025-patient has been on the full liquid diet. I will check biochemical labs and he will prep for an EGD and colonoscopy on 03/09/2025. 03/09/2025-patient can have clear liquid diet tonight. N.p.o. at midnight for EGDand colonoscopy tomorrow. Visit Charges Inpatient E&M: 64261 Subs Hosp 03/09/251901 <Electronically signed by Luis A Singh DO> Luis A Singh DO Cosigner Signature (if applicable): CC: ~ Signed [facility] Work Phone: 1(308) 220-515408-04-2025 Progress note [facility] Medical Records Department [address] [place] [address] Progress Note 03/09/251899 MR#: [id number] Acct: [id number] Name: EDER BREEN Rep #:[id number] : 1955 69 From: Luis A Singh DO PCP: Dr. Hari Oneill, DO Status:AD M IN Location: [place] [address] Progress Note Patient was not able to have a EGD colonoscopy today. Physical Exam Const alert, oriented x3, no apparent distress and healthy appearing General Appearance: cooperative GI normal to inspection, nondistended, normoactive bowel sounds, soft to palpation,non-tender and non-distended Percussion: normal to percussion Rectal Exam: deferred Assessment & Plan Assessment/Plan (1) Abdominal distension: (2) Abdominal pain: PLAN: 69-year-old patient presents with primary complaint of gas and bloating, which has been ongoing for several months. He reports generalized abdominal discomfort and distention, feeling full easily after eating small amounts. He does not have a known history of cirrhotic or non-cirrhotic portalhypertension. He denies history of cirrhosis or other chronic liver diseases such as viral hepatitis, biliary cirrhosis, steatohepatitis, or autoimmune hepatitis. , * Differential diagnoses for gas/bloat in this setting include: * Irritable Bowel Syndrome (IBS):?May present with gas and bloating. * Gastroparesis, although less likely to be the primary cause of these symptoms in the setting of portal hypertension. * Small Intestinal Bacterial Overgrowth (SIBO):?Can cause bloating and gas. * Dietary Factors:?Certain foods can exacerbate gas and bloating. * Further evaluation needed to confirm the cause of the gas and bloating. * Such as EGD with biopsies, stool for pancreatic elastase, autoantibodies for celiac disease, gastric emptying study * If workup is negative then I would recommend vascular consultation due to CT abnormalities of multiple portal collateral mesenteric veins PLAN: Plan 03/07/2025-patient has been on the full liquid diet. I will check biochemical labs and he will prep for an EGD and colonoscopy on 03/09/2025. 03/09/2025-patient can have clear liquid diet tonight. N.p.o. at midnight for EGDand colonoscopy tomorrow. Visit Charges Inpatient E&M: 21769 [facility] Hosp 03/09/25 190 [facility] Friend DO Cosigner Signature (if applicable): CC: ~ Signed [facility]08-04-2025 Progress note Author Duncan Rashid [facility] Note Date/Time March 09, 2025 3:5 9pm [facility] Medical Records Department [address] [place] [address] Progress Note - Hospitalist 03/09/25 1053 MR#: [id number] Acct: [id number] Name: EDER BREEN Rep #:[id number] : 1955 69 From: Duncan espinoza DO PCP: Dr. Hari Oneill, DO Status:AD M IN Location: [place] [address] Reason for Visit Chief Complaint: Persistent abdominal pain with diarrhea and weakness Subjective Subjective Saw patient at bedside this morning. Patient was sitting back comfortably in bedside chair, conversing normally, in no acute distress. Completed bowel prep last night and was having clear liquid stools this morning. Denies any abdominal pain currently. No other acute concerns at this time. Objective Data Objective Data Vital Signs: Vital Signs Temp Pulse Resp BP Pulse Ox O2 Del Method 98.1 F 81 16 110/60 96 Room Air 03/09/25 07:48 03/09/25 07:48 03/09/25 07:48 03/09/25 07:48 03/09/25 07:48 03/09/25 08:28 Oxygen Delivery Method Room Air Weight: 131.496 kg Body Mass Index (BMI) 39.3 Intake & Output: Intake and Output for Last 24 Hours 03/07/25 03/08/25 03/09/25 23:59 23:59 23:59 Intake Total 2174 / 2174 Output Total 650 / 650 450 / 450 Balance -650 / -650 1724 / 1724 Lab / Micro Data 03/09/25 05:48 03/09/25 05:48 Labs: Laboratory Results - last 24 hr 03/09/25 05:48: WBC 6.3, RBC 4.04 L, Hgb 11.7 L, Hct 36.1 L, MCV 89.4, MCH 29.0,MCHC 32.4, RDW Std Deviation 47.8 H, RDW Coeff of Vaishnavi 14.6, Plt Count 174, MPV 8.6, Immature Gran % (Auto) 0.300, Neut % (Auto) 64.4, Lymph % (Auto) 23.8, Saline% (Auto) 6.7, Eos % (Auto) 4.3, Baso % (Auto) 0.5, Absolute Neuts (auto) 4.0, Absolute Lymphs (auto) 1.49, Nucleated RBC % 0, PT 35.1 H, INR 3.4, APTT 34.0, Sodium 139, Potassium 3.2 L, Chloride 106, Carbon Dioxide 20.2 L, Anion Gap 13, BUN 11, Creatinine 1.05, Estim Creat Clear Calc 90.50, Est GFR (MDRD) Non-Af 76,BUN/Creatinine Ratio 10.1, Glucose 106 H, Calcium 8.7, Phosphorus 3.5, Magnesium2.1, Total Bilirubin 0.40, AST 20, ALT 16, Alkaline Phosphatase 127, Total Protein 6.4, Albumin 4.0, Globulin 2.3, Albumin/Globulin Ratio 1.7 Micro: Microbiology 03/08/25 13:10 Stool Stool Lactoferrin - Final 03/08/25 13:10 Stool Enteric Bacteriology - Final Physical Exam Const alert and oriented x3 Constitutional Narrative: Elderly male, class II obesity, good energy level today, sitting back comfortably in bedside chair, conversing normally, in no acute distress. General Appearance: cooperative HEENT normocephalic, head/scalp atraumatic, hearing grossly normal bilaterally, nasal mucous membranes and turbinates normal and moist oral mucous membranes Eyes PERRL, EOMs intact bilaterally and conjunctivae normal Neck full ROM Chest inspection of chest normal Resp normal respiratory effort, normal air movement, no use of accessory muscles and clear to auscultation bilaterally Cardio regular rate, regular rhythm, no murmurs and peripheral pulses 2+ throughout GI GI Narrative: Abdomen mildly distended but soft and nontender to palpation. Back/Spine normal ROM Extremity full ROM Extremity Narrative: Chronic venous stasis changes noted in bilateral lower legs. Psych mental status grossly normal Assessment & Plan Assessment/Plan (1) Abdominal pain: (2) Abdominal distension: PLAN: Plan Patient is a 69-year-old male who presented to [facility] ED on 03/05/2025 with persistent abdominal pain with diarrhea and weakness. 1. Persistent abdominal pain with distention and diarrhea ? GI following. Recent hospitalization here, GI and general surgery follow-up. 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 Repeat CT abdomen pelvis on this admission moderate amount of fecal material throughout the colon, venouscollateral vessels seen through the subcu tissues, gallstone in neck of the gallbladder, no other concerning findings. Gallbladder ultrasound showed solitary stone in neck of gallbladder with hepatomegaly and fatty infiltration of liver. No LFT elevation noted, no concern for acute cystitis. CT abdomen pelvis notably is stable from previous. Plan is for EGD and colonoscopy today, we will follow-up results. Appreciate further GI recommendations. 2. Hyponatremia, resolved ? Sodium 120 on admit. Improved back to normal range with IV fluid resuscitation. 3. Hypokalemia ? Potassium 3.3 on 03/08. Repleting as needed. 4. Mild acute on chronic debility ? PT/OT/case management following. Patient lives at home with his , has hadsome difficulty caring for himself with his recent medical issues. Has had fairly good therapy scores while inpatient, planning for outpatient therapy on discharge. Chronic medical conditions: ? Class II obesity: BMI 39 on admit. Complicates hospital course and care. ? History of seizure disorder: Continue home lacosamide, Lamictal, Keppra and zonisamide. ? History of DVT s/p IVC filter placement: INR therapeutic at 2.4 on admit. Continue home Coumadin. ? Hypothyroidism: Recent TSH normal on 02/28. Continue home Synthroid. ? GERD: Continue home PPI. DVT prophylaxis: Not indicated, on Coumadin CODE STATUS: Full code, verified Expected disposition: Home, TBD Total clinical time spent by myself addressing the patient's medical issues, reviewing all the data, and collaborating with patient's care team: 35 minutes. Charges/Coding Visit Charges Inpatient E&M: 75541 Subs Hosp L2 03/09/25 1557 <Electronically signed by Duncan Rashid DO> Cosigner Signature (if applicable): CC: ~ Signed [facility] Work Phone: 1(987) 934-852508-04-2025 Progress note [facility] Medical Records Department [address] [place] [address] Progress Note - Hospitalist 03/09/25 1053 MR#: [id number] Acct: [id number] Name: EDER BREEN Rep #:[id number] : 1955 69 From: Duncan espinoza DO PCP: Dr. Hari Oneill, DO Status:AD M IN Location: [place] [id number] Reason for Visit Chief Complaint: Persistent abdominal pain with diarrhea and weakness Subjective Subjective Saw patient at bedside this morning. Patient was sitting back comfortably in bedside chair, conversing normally, in no acute distress. Completed bowel prep last night and was having clear liquid stools this morning. Denies any abdominal pain currently. No other acute concerns at this time. Objective Data Objective Data Vital Signs: Vital Signs Temp Pulse Resp BP Pulse Ox O2 Del Method 98.1 F 81 16 110/60 96 Room Air 03/09/25 07:48 03/09/25 07:48 03/09/25 07:48 03/09/25 07:48 03/09/25 07:48 03/09/25 08:28 Oxygen Delivery Method Room Air Weight: 131.496 kg Body Mass Index (BMI) 39.3 Intake & Output: Intake and Output for Last 24 Hours 03/07/25 03/08/25 03/09/25 23:59 23:59 23:59 Intake Total 2174 / 2174 Output Total 650 / 650 450 / 450 Balance -650 / -650 1724 / 1724 Lab / Micro Data 03/09/25 05:48 03/09/25 05:48 Labs: Laboratory Results - last 24 hr 03/09/25 05:48: WBC 6.3, RBC 4.04 L, Hgb 11.7 L, Hct 36.1 L, MCV 89.4, MCH 29.0,MCHC 32.4, RDW Std Deviation 47.8 H, RDW Coeff of Vaishnavi 14.6, Plt Count 174, MPV 8.6, Immature Gran % (Auto) 0.300, Neut % (Auto) 64.4, Lymph % (Auto) 23.8, Saline% (Auto) 6.7, Eos % (Auto) 4.3, Baso % (Auto) 0.5, Absolute Neuts (auto) 4.0, Absolute Lymphs (auto) 1.49, Nucleated RBC % 0, PT 35.1 H, INR 3.4, APTT 34.0, Sodium 139, Potassium 3.2 L, Chloride 106, Carbon Dioxide 20.2 L, Anion Gap 13, BUN 11, Creatinine 1.05, Estim Creat Clear Calc 90.50, Est GFR (MDRD) Non-Af 76,BUN/Creatinine Ratio 10.1, Glucose 106 H, Calcium 8.7, Phosphorus 3.5, Magnesium2.1, Total Bilirubin 0.40, AST 20, ALT 16, Alkaline [id number], Total Protein 6.4, Albumin 4.0, Globulin 2.3, Albumin/Globulin Ratio 1.7 Micro: Microbiology 03/08/25 13:10 Stool Stool Lactoferrin - Final 03/08/25 13:10 Stool Enteric Bacteriology - Final Physical Exam Const alert and oriented x3 Constitutional Narrative: Elderly male, class II obesity, good energy level today, sitting back comfortably in bedside chair,conversing normally, in no acute distress. General Appearance: cooperative HEENT normocephalic, head/scalp atraumatic, hearing grossly normal bilaterally, nasal mucous membranes and turbinates normal and moist oral mucous membranes Eyes PERRL, EOMs intact bilaterally and conjunctivae normal Neck full ROM Chest inspection of chest normal Resp normal respiratory effort, normal air movement, no use of accessory muscles and clear to auscultation bilaterally Cardio regular rate, regular rhythm, no murmurs and peripheral pulses 2+ throughout GI GI Narrative: Abdomen mildly distended but soft and nontender to palpation. Back/Spine normal ROM Extremity full ROM Extremity Narrative: Chronic venous stasis changes noted in bilateral lower legs. Psych mental status grossly normal Assessment & Plan Assessment/Plan (1) Abdominal pain: (2) Abdominal distension: PLAN: Plan Patient is a 69-year-old male who presented to [facility] ED on 03/05/2025 with persistent abdominal pain with diarrhea and weakness. 1. Persistent abdominal pain with distention and diarrhea ? GI following. Recent hospitalization here, GI and general surgery follow-up. There was concern for Kimberly syndrome at that time. Repeat CT abdomen pelvis on this admission moderate amount of fecalmaterial throughout the colon, venouscollateral vessels seen through the subcu tissues, gallstone in neck of the gallbladder, no other concerning findings. Gallbladder ultrasound showed solitary stone in neck of gallbladder with hepatomegaly and fatty infiltration of liver. No LFT elevation noted, no concern for acute cystitis. CT abdomen pelvis notably is stable from previous. Plan is for EGD and colonoscopy today, we will follow-up results. Appreciate further GI recommendations. 2. Hyponatremia, resolved ? Sodium 120 on admit. Improved back to normal range with IV fluid resuscitation. 3. Hypokalemia ? Potassium 3.3 on 03/08. Repleting as needed. 4. Mild acute on chronic debility ? PT/OT/case management following. Patient lives at home with his , has hadsome difficulty caring for himself with his recent medical issues. Has had fairly good therapy scores while inpatient, planning for outpatient therapy on discharge. Chronic medical conditions: ? Class II obesity: BMI 39 on admit. Complicates hospital course and care. ? History of seizure disorder: Continue home lacosamide, Lamictal, Keppra and zonisamide. ? History of DVT s/p IVC filter placement: INR therapeutic at 2.4 on admit. Continue home Coumadin. ? Hypothyroidism: Recent TSH normal on 02/28. Continue home Synthroid. ? GERD: Continue home PPI. DVT prophylaxis: Not indicated, on Coumadin CODE STATUS: Full code, verified Expected disposition: Home, TBD Total clinical time spent by myself addressing the patient's medical issues, reviewing all the data, and collaborating with patient's care team: 35 minutes. Charges/Coding Visit Charges Inpatient E&M: 35880 Subs Hosp L2 03/09/25 3215 Cosigner Signature (if applicable): CC: ~ Signed [facility]08-04-2025 Telephone encounter Note* Telephone Encounter - La London RN - 03/09/2025 1:18 PM EDT [facility] reports pt requested a refill on Flomax online. Appears [facility] prescribed this medication. Pt would need to f/u with pcp. Left vm for pt to return call to triage nurse. [facility]08-04-2025 Miscellaneous Notes* Telephone Encounter - La London RN - 03/09/2025 1:18 PM EDT [facility] reports pt requested a refill on Flomax online. Appears [facility] prescribed this medication. Pt would need to f/u with pcp. Left vm for pt to return call to triage nurse. [facility] Progress note Author Danae Stanton [facility] Note Date/Time March 08, 2025 2:2 1pm [facility] Medical Records Department [address] [place] [address] Progress Note 03/08/25 0951 MR#: [id number] Acct: [id number] Name: EDER BREEN Rep #:[id number] : 1955 69 From: Danae Stanton MD PCP: Dr. Hari Oneill, DO Status:[facility] Location: MS3 DS817-5 Subjective Subjective Patient seen and examined. He still complains of abdominal pain and abdominal distention. He still had diarrhea overnight. Review of systems otherwise negative. He is due for EGD and colonoscopy tomorrow. Objective Data Objective Data Vital Signs: Vital Signs Temp Pulse Resp BP Pulse Ox O2 Del Method 97.5 F L 81 16 133/77 H 97 Room Air 03/08/25 09:14 03/08/25 09:14 03/08/25 09:14 03/08/25 09:14 03/08/25 09:14 03/08/25 09:14 Oxygen Delivery Method Room Air Weight: 289 lb 14.4 oz Body Mass Index (BMI) 39.3 Intake & Output: Intake and Output for Last 24 Hours 03/06/25 03/07/25 03/08/25 23:59 23:59 23:59 Intake Total 240 / 240 400 / 400 Output Total 2100 / 2600 650 / 650 450 / 450 Balance -1860 / -2360 -650 / -650 -50 / -50 Lab / Micro Data 03/08/25 04:53 03/08/25 04:53 Labs: Laboratory Results - last 24 hr 03/07/25 06:14: ESR 18, C-React Prot Ext Range 10.40 H 03/07/25 11:30: PT 30.4 H, INR 2.8 03/08/25 04:53: WBC 6.3, RBC 4.03 L, Hgb 11.8 L, Hct 36.0 L, MCV 89.3, MCH 29.3,MCHC 32.8, RDW Std Deviation 47.9 H, RDW Coeff of Vaishnavi 14.7 H, Plt Count 201, MPV8.6, Immature Gran % (Auto) 0.300, Neut % (Auto) 66.8, Lymph % (Auto) 21.2, Saline% (Auto) 7.2, Eos % (Auto) 4.0, Baso % (Auto) 0.5, Absolute Neuts (auto) 4.2, Absolute Lymphs (auto) 1.33, Nucleated RBC % 0, Sodium 141, Potassium 3.3, Chloride 107, Carbon Dioxide 22.5, Anion Gap 11, BUN 11, Creatinine 0.96, Estim Creat Clear Calc 98.99, Est GFR (MDRD) Non-Af 85, BUN/Creatinine Ratio 11.8, Glucose 97, Calcium 8.9, Total Bilirubin 0.41, AST 21, ALT 18, Alkaline Phosphatase 124, Total Protein 6.5, Albumin 4.1, Globulin 2.4, Albumin/Globulin Ratio 1.7, KIMMIE-1 Antibody TNP, Sm (Frances) Antibody TNP, CLINICAL NURSE OCCUPATIONAL MEDICINE Antibody TNP, Scl-70 Scleroderma Ab TNP, Antichromatin Antibodies TNP, Centromere B Antibody TNP 03/08/25 07:59: PT 36.7 H, INR 3.6 Physical Exam Const alert, oriented x3 and no apparent distress Constitutional Narrative: class II obesity General Appearance: cooperative HEENT normocephalic, head/scalp atraumatic, hearing grossly normal bilaterally, nasal mucous membranes and turbinates normal, moist oral mucous membranes and oropharynx normal Eyes PERRL, EOMs intact bilaterally and conjunctivae normal Neck full ROM, no lymphadenopathy and supple Lymph Lymphatic: no lymphadenopathy noted Chest inspection of chest normal Resp normal respiratory effort, normal air movement, no use of accessory muscles and clear to auscultation bilaterally Cardio regular rate, regular rhythm, S1 normal heart sound, S2 normal heart sound, no murmurs and peripheral pulses 2+ throughout GI GI Narrative: Very obese abdomen: Distended and tympanitic to percussion. Difficult to palpate for organomegaly due to abdominal distention. Mild generalised tenderness, no guarding or rebound tenderness. Back/Spine normal ROM Extremity full ROM and normal capillary refill Extremity Narrative: Significant chronic venous stasis changes noted in bilateral lower legs. Skin Skin Narrative: Chronic venous stasis changes in lower extremities. Neuro CN's II-XII intact bilaterally, no focal motor deficits, no sensory deficits noted and deep tendon reflexes 2+ bilaterally Motor Exam: general weakness Psych mental status grossly normal, thought process normal, cooperative and affect normal Appearance: appropriate Assessment & Plan Assessment/Plan (1) Abdominal distension: (2) Abdominal pain, acute, left lower quadrant: PLAN: Plan #Persistent abdominal pain and distention with diarrhea * Patient was just discharged a few days ago after he came in with similar complaints. During that time GI and general surgery were on board. There was concern for possible Kimberly syndrome then. He was started on a diet which he tolerated and was eating well at time of discharge. However he states he went home and his nausea and abdominal pain and distention started again and did not improve so he came into the ED. * Be hydrated with IV fluids. Currently NPO. Will consult gastroenterology. * CT abdomen and pelvis done showed gallstone in the neck of the bladder and venous collaterals seen throughout the subcutaneous tissues above as well as increased markings in the peritoneal fat in the root of the mesentery which is stable. * Gallbladder ultrasound showed solitary stone in the neck of the gallbladder with hepatomegaly and fatty infiltration of the liver. * GI on board; for EGD and colonoscopy tomorrow #Hyponatremia:resolved. #Hypokalemia: K is 3.3 today. Stable. #Debility and weakness: * PT/OT On board. Patient states he needs assistance at home as his is also sick and he is not able to do much for himself. * During his previous admission he was actually asking for Meals on Wheels. Seems like all these have been set up for him but he says nobody comes out to providing the services. * Case management on board. #History of seizure disorder: On lacosamide, Lamictal and Keppra as well as zonisamide #History of DVT status post IVC filter: On Coumadin. INR is 3.6 today. Will hold coumadin dose today #Hypothyroidism: On Synthroid #GERD: On PPI #Class II obesity: BMI is 39.3. Complicates acute care, expected recovery and prognosis. DVT prophylaxis: Not indicated as patient already on Coumadin. INr is 3.6 today.Sarthak hold coumadin today Charges/Coding Visit Charges Inpatient E&M: 85125 Subs Hosp L2 03/08/25 1421 <Electronically signed by Danae Stanton MD> Danae Stanton MD Cosigner Signature (if applicable): CC: ~ Signed [facility] Work Phone: 1(556) 361-613808-03-2025 Progress note [facility] Medical Records Department [address] [place] [address] Progress Note 03/08/25 0951 MR#: [id number] Acct: [id number] Name: EDER BREEN Rep #:[id number] : 1955 69 From: Danae Stanton MD PCP: Dr. Hari Oneill, DO Status:AD M [facility] Location: VA3 [id number] Subjective Subjective Patient seen and examined. He still complains of abdominal pain and abdominal distention. He still had diarrhea overnight. Review of systems otherwise negative. He is due for EGD and colonoscopy tomorrow. Objective Data Objective Data Vital Signs: Vital Signs Temp Pulse Resp BP Pulse Ox O2 Del Method 97.5 F L 81 16 133/77 H 97 Room Air 03/08/25 09:14 03/08/25 09:14 03/08/25 09:14 03/08/25 09:14 03/08/25 09:14 03/08/25 09:14 Oxygen Delivery Method Room Air Weight: 289 lb 14.4 oz Body Mass Index (BMI) 39.3 Intake & Output: Intake and Output for Last 24 Hours 03/06/25 03/07/25 03/08/25 23:59 23:59 23:59 Intake Total 240 / 240 400 / 400 Output Total 2100 / 2600 650 / 650 450 / 450 Balance -1860 / -2360 -650 / -650 -50 / -50 Lab / Micro Data 03/08/25 04:53 03/08/25 04:53 Labs: Laboratory Results - last 24 hr 03/07/25 06:14: ESR 18, C-React Prot Ext Range 10.40 H 03/07/25 11:30: PT 30.4 H, INR 2.8 03/08/25 04:53: WBC 6.3, RBC 4.03 L, Hgb 11.8 L, Hct 36.0 L, MCV 89.3, MCH 29.3,MCHC 32.8, RDW Std Deviation 47.9 H, RDW Coeff of Vaishnavi 14.7 H, Plt Count 201, MPV8.6, Immature Gran % (Auto) 0.300, Neut% (Auto) 66.8, Lymph % (Auto) 21.2, Saline% (Auto) 7.2, Eos % (Auto) 4.0, Baso % (Auto) 0.5, AbsoluteNeuts (auto) 4.2, Absolute Lymphs (auto) 1.33, Nucleated RBC % 0, Sodium 141, Potassium 3.3, Chloride 107, Carbon Dioxide 22.5, Anion Gap 11, BUN 11, Creatinine 0.96, Estim Creat Clear Calc 98.99, Est GFR (MDRD) Non-Af 85, BUN/Creatinine Ratio 11.8, Glucose 97, Calcium 8.9, Total Bilirubin 0.41, AST 21, ALT 18, Alkaline Phosphatase 124, Total Protein 6.5, Albumin 4.1, Globulin 2.4, Albumin/Globulin Ratio 1.7, KIMMIE-1 Antibody TNP, Sm (Frances) Antibody TNP, CLINICAL NURSE OCCUPATIONAL MEDICINE Antibody TNP, Scl-70 Scleroderma Ab TNP, Antichromatin Antibodies TNP, Centromere B Antibody TNP 03/08/25 07:59: PT 36.7 H, INR 3.6 Physical Exam Const alert, oriented x3 and no apparent distress Constitutional Narrative: class II obesity General Appearance: cooperative HEENT normocephalic, head/scalp atraumatic, hearing grossly normal bilaterally, nasal mucous membranes and turbinates normal, moist oral mucous membranes and oropharynx normal Eyes PERRL, EOMs intact bilaterally and conjunctivae normal Neck full ROM, no lymphadenopathy and supple Lymph Lymphatic: no lymphadenopathy noted Chest inspection of chest normal Resp normal respiratory effort, normal air movement, no use of accessory muscles and clear to auscultation bilaterally Cardio regular rate, regular rhythm, S1 normal heart sound, S2 normal heart sound, no murmurs and peripheral pulses 2+ throughout GI GI Narrative: Very obese abdomen: Distended and tympanitic to percussion. Difficult to palpate for organomegaly due to abdominal distention. Mild generalised tenderness, no guarding or rebound tenderness. Back/Spine normal ROM Extremity full ROM and normal capillary refill Extremity Narrative: Significant chronic venous stasis changes noted in bilateral lower legs. Skin Skin Narrative: Chronic venous stasis changes in lower extremities. Neuro CN's II-XII intact bilaterally, no focal motor deficits, no sensory deficits noted and deep tendon reflexes 2+ bilaterally Motor Exam: general weakness Psych mental status grossly normal, thought process normal, cooperative and affect normal Appearance: appropriate Assessment & Plan Assessment/Plan (1) Abdominal distension: (2) Abdominal pain, acute, left lower quadrant: PLAN: Plan #Persistent abdominal pain and distention with diarrhea * Patient was just discharged a few days ago after he came in with similar complaints. During that time GI and general surgery were on board. There was concern for possible Ewelina syndrome then. He was started on a diet which he tolerated and was eating well at time of discharge. However he stateshe went home and his nausea and abdominal pain and distention started again and did not improve so he came into the ED. * Be hydrated with IV fluids. Currently NPO. Will consult gastroenterology. * CT abdomen and pelvis done showed gallstone in the neck of the bladder and venous collaterals seen throughout the subcutaneous tissues above as well as increased markings in the peritoneal fat in the root of the mesentery which is stable. * Gallbladder ultrasound showed solitary stone in the neck of the gallbladder with hepatomegaly andfatty infiltration of the liver. * GI on board; for EGD and colonoscopy tomorrow #Hyponatremia:resolved. #Hypokalemia: K is 3.3 today. Stable. #Debility and weakness: * PT/OT On board. Patient states he needs assistance at home as his is also sick and he is notable to do much for himself. * During his previous admission he was actually asking for Meals on Wheels. Seems like all these have been set up for him but he says nobody comes out to providing the services. * Case management on board. #History of seizure disorder: On lacosamide, Lamictal and Keppra as well as zonisamide #History of DVT status post IVC filter: On Coumadin. INR is 3.6 today. Will hold coumadin dose today #Hypothyroidism: On Synthroid #GERD: On PPI #Class II obesity: BMI is 39.3. Complicates acute care, expected recovery and prognosis. DVT prophylaxis: Not indicated as patient already on Coumadin. INr is 3.6 today.Sarthak hold coumadin today Charges/Coding Visit Charges Inpatient E&M: 59250 Subs Hosp L2 03/08/25 1421 Danae Stanton MD Cosigner Signature (if applicable): CC: ~ Signed [facility]08-02-2025 Progress note Author Luis A Friend [facility] Note Date/Time March 07, 2025 9:5 6pm [facility] Medical Records Department [address] [place] [address] Progress Note 03/07/252154 MR#: [id number] Acct: [id number] Name: EDER BREEN Rep #:[id number] : 1955 69 From: Luis A Singh DO PCP: Dr. Hari Oneill, DO Status:AD M [facility] Location: MS3 FI549-3 Progress Note Patient still complains of abdominal pain and abdominal distention. Physical Exam Const alert, oriented x3 and no apparent distress Constitutional Narrative: class II obesity General Appearance: cooperative HEENT normocephalic, head/scalp atraumatic, hearing grossly normal bilaterally, nasal mucous membranes and turbinates normal, moist oral mucous membranes and oropharynx normal Eyes PERRL, EOMs intact bilaterally and conjunctivae normal Neck full ROM, no lymphadenopathy and supple Lymph Lymphatic: no lymphadenopathy noted Chest inspection of chest normal Resp normal respiratory effort, normal air movement, no use of accessory muscles and clear to auscultation bilaterally Cardio regular rate, regular rhythm, S1 normal heart sound, S2 normal heart sound, no murmurs and peripheral pulses 2+ throughout GI GI Narrative: Very obese abdomen: Distended and tympanitic to percussion. Difficult to palpate for organomegaly due to abdominal distention. Nontender. Back/Spine normal ROM Extremity full ROM Extremity Narrative: Significant chronic venous stasis changes noted in bilateral lower legs. Skin Skin Narrative: Chronic venous stasis changes in lower extremities. Neuro CN's II-XII intact bilaterally, no focal motor deficits, no sensory deficits noted and deep tendon reflexes 2+ bilaterally Motor Exam: general weakness Psych mental status grossly normal, thought process normal, cooperative and affect normal Appearance: appropriate Mood & Affect: anxious Assessment & Plan Assessment/Plan (1) Abdominal distension: (2) Abdominal pain: PLAN: 69-year-old patient presents with primary complaint of gas and bloating, which has been ongoing for several months. He reports generalized abdominal discomfort and distention, feeling full easily after eating small amounts. He does not have a known history of cirrhotic or non-cirrhotic portal hypertension. He denies history of cirrhosis or other chronic liver diseases such as viral hepatitis, biliary cirrhosis, steatohepatitis, or autoimmune hepatitis. , * Differential diagnoses for gas/bloat in this setting include: * Irritable Bowel Syndrome (IBS):?May present with gas and bloating. * Gastroparesis, although less likely to be the primary cause of these symptoms in the setting of portal hypertension. * Small Intestinal Bacterial Overgrowth (SIBO):?Can cause bloating and gas. * Dietary Factors:?Certain foods can exacerbate gas and bloating. * Further evaluation needed to confirm the cause of the gas and bloating. * Such as EGD with biopsies, stool for pancreatic elastase, autoantibodies for celiac disease, gastric emptying study * If workup is negative then I would recommend vascular consultation due to CT abnormalities of multiple portal collateral mesenteric veins PLAN: Plan 03/07/2025-patient has been on the full liquid diet. I will check biochemical labs and he will prep for an EGD and colonoscopy on 03/09/2025. Visit Charges Inpatient E&M: 93639 Subs Hosp L3 03/07/252155 <Electronically signed by Luis A Singh DO> Luis A Singh DO Cosigner Signature (if applicable): CC: ~ Signed [facility] Work Phone: 1(971) 465-775608-02-2025 Progress note [facility] Medical Records Department [address] [place] [address] Progress Note 03/07/252154 MR#: [id number] Acct: [id number] Name: EDER BREEN Rep #:[id number] : 1955 69 From: Luis A Singh DO PCP: Dr. Hari Oneill, DO Status:AD M [facility] Location: VA3 PV498-1 Progress Note Patient still complains of abdominal pain and abdominal distention. Physical Exam Const alert, oriented x3 and no apparent distress Constitutional Narrative: class II obesity General Appearance: cooperative HEENT normocephalic, head/scalp atraumatic, hearing grossly normal bilaterally, nasal mucous membranes and turbinates normal, moist oral mucous membranes and oropharynx normal Eyes PERRL, EOMs intact bilaterally and conjunctivae normal Neck full ROM, no lymphadenopathy and supple Lymph Lymphatic: no lymphadenopathy noted Chest inspection of chest normal Resp normal respiratory effort, normal air movement, no use of accessory muscles and clear to auscultation bilaterally Cardio regular rate, regular rhythm, S1 normal heart sound, S2 normal heart sound, no murmurs and peripheral pulses 2+ throughout GI GI Narrative: Very obese abdomen: Distended and tympanitic to percussion. Difficult to palpate for organomegaly due to abdominal distention. Nontender. Back/Spine normal ROM Extremity full ROM Extremity Narrative: Significant chronic venous stasis changes noted in bilateral lower legs. Skin Skin Narrative: Chronic venous stasis changes in lower extremities. Neuro CN's II-XII intact bilaterally, no focal motor deficits, no sensory deficits noted and deep tendon reflexes 2+ bilaterally Motor Exam: general weakness Psych mental status grossly normal, thought process normal, cooperative and affect normal Appearance: appropriate Mood & Affect: anxious Assessment & Plan Assessment/Plan (1) Abdominal distension: (2) Abdominal pain: PLAN: 69-year-old patient presents with primary complaint of gas and bloating, which has been ongoing for several months. He reports generalized abdominal discomfort and distention, feeling full easily after eating small amounts. He does not have a known history of cirrhotic or non-cirrhotic portalhypertension. He denies history of cirrhosis or other chronic liver diseases such as viral hepatitis, biliary cirrhosis, steatohepatitis, or autoimmune hepatitis. , * Differential diagnoses for gas/bloat in this setting include: * Irritable Bowel Syndrome (IBS):?May present with gas and bloating. * Gastroparesis, although less likely to be the primary cause of these symptoms in the setting of portal hypertension. * Small Intestinal Bacterial Overgrowth (SIBO):?Can cause bloating and gas. * Dietary Factors:?Certain foods can exacerbate gas and bloating. * Further evaluation needed to confirm the cause of the gas and bloating. * Such as EGD with biopsies, stool for pancreatic elastase, autoantibodies for celiac disease, gastric emptying study * If workup is negative then I would recommend vascular consultation due to CT abnormalities of multiple portal collateral mesenteric veins PLAN: Plan 03/07/2025-patient has been on the full liquid diet. I will check biochemical labs and he will prep for an EGD and colonoscopy on 03/09/2025. Visit Charges Inpatient E&M: 52664 Subs Hosp 03/07/25 2156 Luis A Friend DO Cosigner Signature (if applicable): CC: ~ Signed [facility]08-02-2025 Progress note Author Danae Stanton [facility] Note Date/Time March 07, 2025 3:1 1pm [facility] Medical Records Department [address] [place] [address] Progress Note 03/07/25 1058 MR#: [id number] Acct: [id number] Name: EDER BREEN Rep #:[id number] : 1955 69 From: Danae Stanton MD PCP: Dr. Hari Oneill, DO Status:URBANO Cruz [facility] Location: [place] [address]-1 Subjective Subjective Patient seen and examined. He still complained of abdominal distension and abdominal pain. He is still having diarrhea. Review of systems is otherwise negative. Objective Data Objective Data Vital Signs: Vital Signs Temp Pulse Resp BP Pulse Ox O2 Del Method 98.3 F 75 18 117/79 100 Room Air 03/07/25 08:55 03/07/25 08:55 03/07/25 08:55 03/07/25 08:55 03/07/25 08:55 03/07/25 08:55 Oxygen Delivery Method Room Air Weight: 289 lb 14.4 oz Body Mass Index (BMI) 39.3 Intake & Output: Intake and Output for Last 24 Hours 03/05/25 03/06/25 03/07/25 23:59 23:59 23:59 Intake Total 1095 / 1095 240 / 240 Output Total 2850 / 2850 2100 / 2600 500 / 500 Balance -1755 / -1755 -1860 / -2360 -500 / -500 Lab / Micro Data 03/07/25 06:14 03/07/25 06:14 Labs: Laboratory Results - last 24 hr 03/07/25 06:14: WBC 5.5, RBC 4.03 L, Hgb 11.7 L, Hct 36.1 L, MCV 89.6, MCH 29.0,MCHC 32.4, RDW Std Deviation 47.8 H, RDW Coeff of Vaishnavi 14.6, Plt Count 197, MPV 9.3, Immature Gran % (Auto) 0.400, Neut % (Auto) 58.5, Lymph % (Auto) 26.8, Saline% (Auto) 9.0, Eos % (Auto) 4.6, Baso % (Auto) 0.7, Absolute Neuts (auto) 3.2, Absolute Lymphs (auto) 1.46, Nucleated RBC % 0, Sodium 142, Potassium 3.4, Chloride 110 H, Carbon Dioxide 19.7 L, Anion Gap 13, BUN 10, Creatinine 0.90, Estim Creat Clear Calc 105.59, Est GFR (MDRD) Non-Af 91, BUN/Creatinine Ratio 11.3, Glucose 91, Calcium 8.8, Total Bilirubin 0.42, AST 21, ALT 16, Alkaline Phosphatase 119, Total Protein 6.4, Albumin 4.0, Globulin 2.4, Albumin/Globulin Ratio 1.6 Physical Exam Const alert, oriented x3 and no apparent distress Constitutional Narrative: class II obesity General Appearance: cooperative HEENT normocephalic, head/scalp atraumatic, hearing grossly normal bilaterally, nasal mucous membranes and turbinates normal, moist oral mucous membranes and oropharynx normal Eyes PERRL, EOMs intact bilaterally and conjunctivae normal Neck full ROM, no lymphadenopathy and supple Lymph Lymphatic: no lymphadenopathy noted Chest inspection of chest normal Resp normal respiratory effort, normal air movement, no use of accessory muscles and clear to auscultation bilaterally Cardio regular rate, regular rhythm, S1 normal heart sound, S2 normal heart sound, no murmurs and peripheral pulses 2+ throughout GI GI Narrative: Very obese abdomen: Distended and tympanitic to percussion. Difficult to palpate for organomegaly due to abdominal distention. Nontender. Back/Spine normal ROM Extremity full ROM Extremity Narrative: Significant chronic venous stasis changes noted in bilateral lower legs. Skin Skin Narrative: Chronic venous stasis changes in lower extremities. Neuro CN's II-XII intact bilaterally, no focal motor deficits, no sensory deficits noted and deep tendon reflexes 2+ bilaterally Motor Exam: general weakness Psych mental status grossly normal, thought process normal, cooperative and affect normal Appearance: appropriate Mood & Affect: anxious Assessment & Plan Assessment/Plan (1) Abdominal distension: (2) Abdominal pain, acute, left lower quadrant: PLAN: Plan #Persistent abdominal pain and distention with diarrhea * Patient was just discharged a few days ago after he came in with similar complaints. During that time GI and general surgery were on board. There was concern for possible Kimberly syndrome then. He was started on a diet which he tolerated and was eating well at time of discharge. However he states he went home and his nausea and abdominal pain and distention started again and did not improve so he came into the ED. * Be hydrated with IV fluids. Currently NPO. Will consult gastroenterology. * CT abdomen and pelvis done showed gallstone in the neck of the bladder and venous collaterals seen throughout the subcutaneous tissues above as well as increased markings in the peritoneal fat in the root of the mesentery which is stable. * Gallbladder ultrasound showed solitary stone in the neck of the gallbladder with hepatomegaly and fatty infiltration of the liver. * GI consulted. Per GI documentation, to have EDG, unclear when it will be done. #Hyponatremia:resolved. Sodium is 142 today. #Hypokalemia: K is 3.4. Will replace and trend. #Debility and weakness: * PT/OT On board. Patient states he needs assistance at home as his is also sick and he is not able to do much for himself. * During his previous admission he was actually asking for Meals on Wheels. Seems like all these have been set up for him but he says nobody comes out to providing the services. * Case management on board. #History of seizure disorder: On lacosamide, Lamictal and Keppra as well as zonisamide #History of DVT status post IVC filter: On Coumadin. INR is therapeutic. #Hypothyroidism: On Synthroid #GERD: On PPI #Class II obesity: BMI is 39.3. Complicates acute care, expected recovery and prognosis. DVT prophylaxis: Not indicated as patient already on Coumadin. INr is pending today Charges/Coding Visit Charges Inpatient E&M: 96428 Subs Hosp L2 03/07/25 1448 <Electronically signed by Danae Stanton MD> Danae Stanton MD Cosigner Signature (if applicable): CC: ~ Signed ADDENDUM by Dr. Danae Stanton MD on 03/07/25 at 1511 Addendum Patient's Atiya Breen ([phone]) updated by phone at 3:09pm that GI planning on doing an upper and lower scope on Sunday. Her questions were answered and she was reassured. 03/07/25 1511 <Electronically signed by Danae cruz MD> Date _ Danae Stanton MD Cosigner Signature (if applicable): Date cc: ~* Signed [facility] Work Phone: 1(918) 752-958308-02-2025 Progress note [facility] Medical Records Department [address] [place] [address] Progress Note 08/02/25 1058 MR#: [id number] Acct: [id number] Name: EDER BREEN Rep #:[id number] : 1955 69 From: Danae Stanton MD PCP: Dr. Hari Oneill, DO Status:AD M [facility] Location: [place] [address] Subjective Subjective Patient seen and examined. He still complained of abdominal distension and abdominal pain. He is still having diarrhea. Review of systems is otherwise negative. Objective Data Objective Data Vital Signs: Vital Signs Temp Pulse Resp BP Pulse Ox O2 Del Method 98.3 F 75 18 117/79 100 Room Air 03/07/25 08:55 03/07/25 08:55 03/07/25 08:55 03/07/25 08:55 03/07/25 08:55 03/07/25 08:55 Oxygen Delivery Method Room Air Weight: 289 lb 14.4 oz Body Mass Index (BMI) 39.3 Intake & Output: Intake and Output for Last 24 Hours 03/05/25 03/06/25 03/07/25 23:59 23:59 23:59 Intake Total 1095 / 1095 240 / 240 Output Total 2850 / 2850 2100 / 2600 500 / 500 Balance -1755 / -1755 -1860 / -2360 -500 / -500 Lab / Micro Data 03/07/25 06:14 03/07/25 06:14 Labs: Laboratory Results - last 24 hr 03/07/25 06:14: WBC 5.5, RBC 4.03 L, Hgb 11.7 L, Hct 36.1 L, MCV 89.6, MCH 29.0,MCHC 32.4, RDW Std Deviation 47.8 H, RDW Coeff of Vaishnavi 14.6, Plt Count 197, MPV 9.3, Immature Gran % (Auto) 0.400, Neut % (Auto) 58.5, Lymph % (Auto) 26.8, Saline% (Auto) 9.0, Eos % (Auto) 4.6, Baso % (Auto) 0.7, Absolute Neuts (auto) 3.2, Absolute Lymphs (auto) 1.46, Nucleated RBC % 0, Sodium 142, Potassium 3.4, Chloride 110 H, Carbon Dioxide 19.7 L, Anion Gap 13, BUN 10, Creatinine 0.90, Estim Creat Clear Calc 105.59, Est GFR (MDRD) Non-Af 91, BUN/Creatinine Ratio 11.3, Glucose 91, Calcium 8.8, Total Bilirubin 0.42, AST 21, ALT 16, Alkaline Phosphatase 119, Total Protein 6.4, Albumin 4.0, Globulin 2.4, Albumin/Globulin Ratio 1.6 Physical Exam Const alert, oriented x3 and no apparent distress Constitutional Narrative: class II obesity General Appearance: cooperative HEENT normocephalic, head/scalp atraumatic, hearing grossly normal bilaterally, nasal mucous membranes and turbinates normal, moist oral mucous membranes and oropharynx normal Eyes PERRL, EOMs intact bilaterally and conjunctivae normal Neck full ROM, no lymphadenopathy and supple Lymph Lymphatic: no lymphadenopathy noted Chest inspection of chest normal Resp normal respiratory effort, normal air movement, no use of accessory muscles and clear to auscultation bilaterally Cardio regular rate, regular rhythm, S1 normal heart sound, S2 normal heart sound, no murmurs and peripheral pulses 2+ throughout GI GI Narrative: Very obese abdomen: Distended and tympanitic to percussion. Difficult to palpate for organomegaly due to abdominal distention. Nontender. Back/Spine normal ROM Extremity full ROM Extremity Narrative: Significant chronic venous stasis changes noted in bilateral lower legs. Skin Skin Narrative: Chronic venous stasis changes in lower extremities. Neuro CN's II-XII intact bilaterally, no focal motor deficits, no sensory deficits noted and deep tendon reflexes 2+ bilaterally Motor Exam: general weakness Psych mental status grossly normal, thought process normal, cooperative and affect normal Appearance: appropriate Mood & Affect: anxious Assessment & Plan Assessment/Plan (1) Abdominal distension: (2) Abdominal pain, acute, left lower quadrant: PLAN: Plan #Persistent abdominal pain and distention with diarrhea * Patient was just discharged a few days ago after he came in with similar complaints. During that time GI and general surgery were on board. There was concern for possible Kimberly syndrome then. He was started on a diet which he tolerated and was eating well at time of discharge. However he stateshe went home and his nausea and abdominal pain and distention started again and did not improve so he came into the ED. * Be hydrated with IV fluids. Currently NPO. Will consult gastroenterology. * CT abdomen and pelvis done showed gallstone in the neck of the bladder and venous collaterals seen throughout the subcutaneous tissues above as well as increased markings in the peritoneal fat in the root of the mesentery which is stable. * Gallbladder ultrasound showed solitary stone in the neck of the gallbladder with hepatomegaly andfatty infiltration of the liver. * GI consulted. Per GI documentation, to have EDG, unclear when it will be done. #Hyponatremia:resolved. Sodium is 142 today. #Hypokalemia: K is 3.4. Will replace and trend. #Debility and weakness: * PT/OT On board. Patient states he needs assistance at home as his is also sick and he is notable to do much for himself. * During his previous admission he was actually asking for Meals on Wheels. Seems like all these have been set up for him but he says nobody comes out to providing the services. * Case management on board. #History of seizure disorder: On lacosamide, Lamictal and Keppra as well as zonisamide #History of DVT status post IVC filter: On Coumadin. INR is therapeutic. #Hypothyroidism: On Synthroid #GERD: On PPI #Class II obesity: BMI is 39.3. Complicates acute care, expected recovery and prognosis. DVT prophylaxis: Not indicated as patient already on Coumadin. INr is pending today Charges/Coding Visit Charges Inpatient E&M: 87109 Subs Hosp L2 03/07/25 7321 Danae Stanton MD Cosigner Signature (if applicable): CC: ~ Signed ADDENDUM by Dr. Danae Stanton MD on 03/07/25 at 1511 Addendum Patient's Atiya Breen ([phone]) updated by phone at 3:09pm that GI planning on doing an upper and lower scope on Sunday. Her questions were answered and she was reassured. 03/07/25 1511 m > Date _ Danae Stanton MD Cosigner Signature (if applicable): Date cc: ~* Signed [facility]08-01-2025 Consult note Author Luis A Singh [facility] Note Date/Time March 06, 2025 6:1 8pm [facility] Medical Records Department [address] [place] [address] Consultation - GI 03/06/25 1802 MR#: [id number] Acct: [id number] Name: EDER BREEN Rep #:[id number] : 1955 69 From: Luis A Singh DO PCP: Dr. Hari Oneill, DO Status:[facility] [facility] Location: [place] [address] HPI Consult Data Date of Consult: 03/06/25 HPI Narrative Reason for Consultation: Abdominal pain HPI Narrative: EDER BREEN, is a 69 y/o presented to the ED with worsening abdominal pain. He has a past medical history of obesity, WILBERTO, history of PE on Coumadin statuspost IVC filter, seizure disorder, anxiety and depression. He also has a history of large B-cell lymphoma and malignant melanoma. I saw him last month for complaints of history of lower cramping abdominal pain. At that time he was having diarrhea. At this time he is not having any diarrhea. After talking to him he still complains of a lot of bloating and cramping. He has been afebrile. His repeat CT scan does show possible mesenteric collateral varicosities. He does have a history of IVC filter. He has no history of portal hypertension or cirrhosis. [facility] Medical History Seizures Loss of one eye Wears glasses Cancer Thyroid disease Arthritis Prostate disease Bladder disease Low iron High cholesterol Diarrhea Gastric reflux Non-smoker History of pain when walking Heart murmur Localized swelling of both lower legs Abnormal biliary HIDA scan Anxiety and depression HTN (hypertension) History of DVT of lower extremity Seizure disorder Home Medications ?Medication ?Instructions ?Recorded ?Last Taken ?Type lamotrigine 200 mg tablet 200 mg PO BID SEIZURES 03/1203/21/24 History (Lamictal) lacosamide 200 mg tablet 200 mg PO BID SEIZURES 09/1703/04/25 History zonisamide 100 mg capsule 100 mg PO BID SEIZURES 09/1703/20/24 History warfarin 7.5 mg tablet 7.5 mg PO DAILY BLOOD THINNE R 09/12/21 03/16/24 History levetiracetam 750 mg tablet 1,500 mg PO BID SEIZURES 0 03/11/24 03/21/24 History levothyroxine 88 mcg tablet 88 mcg PO DAILY THYROID 03/21/24 History furosemide 40 mg tablet 20 mg PO DAILY water pill Unknown History ibuprofen 600 mg tablet 600 mg PO Q6H PRN fever or p ain 03/21/24 03/04/25 Rx #20 tabs potassium chloride 20 mEq/15 mL 10 meq PO DAILY supple ment 02/27/25 Unknown History oral liquid tamsulosin 0.4 mg capsule 0.4 mg PO QHS prostate 02/27 Unknown History Allergy/AdvReac Type Severity Reaction Status Date / Time No Known Allergies Allergy Verified 03/05/25 11:42 Surgical History Hx of colonoscopy History of vascular access device Hx of vascular surgery Hx of left cataract extraction Social History household members: spouse Smoking Status: Never smoker ROS Constitutional Constitutional: Denies fatigue, fever(s), poor appetite, weight gain or weight loss Gastrointestinal Gastrointestinal: Denies belching, bloating, change in bowel habits, change in stool character, chewing difficulty, coffee ground emesis, constipation, cramping, diarrhea, dyspepsia, dysphagia, early satiety, excessive flatus, fecalincontinence, heartburn, hematemesis, hematochezia, hemorrhoids, loose stools, melena, nausea, odynophagia, rectal bleeding, tenesmus, vomiting or weight changes Physical Exam Const alert, oriented x3, no apparent distress and healthy appearing General Appearance: cooperative GI normal to inspection, nondistended, normoactive bowel sounds, soft to palpation,non-tender and non-distended Percussion: normal to percussion Rectal Exam: deferred Lab / Micro Data 03/06/25 05:31 03/06/25 05:31 Labs: Laboratory Results - last 24 hr 03/05/25 18:10: Urine Osmolality 67, Ur Random Sodium < 20 03/06/25 05:31: WBC 5.6, RBC 4.20 L, Hgb 12.2 L, Hct 36.1 L, MCV 86.0, MCH 29.0,MCHC 33.8, RDW Std Deviation 44.5 H, RDW Coeff of Vaishnavi 14.1, Plt Count 207, MPV 8.8, Sodium 139, Potassium 3.2 L, Chloride 106, Carbon Dioxide 20.9 L, Anion Gap12, BUN 8, Creatinine 0.80, Estim Creat Clear Calc 118.78, Est GFR (MDRD) Non-Af95, BUN/Creatinine Ratio 10.6, Glucose 105 H, Calcium 8.9 Assessment & Plan Assessment/Plan (1) Abdominal distension: (2) Abdominal pain: PLAN: 69-year-old patient presents with primary complaint of gas and bloating, which has been ongoing for several months. He reports generalized abdominal discomfort and distention, feeling full easily after eating small amounts. He does not have a known history of cirrhotic or non-cirrhotic portal hypertension. He denies history of cirrhosis or other chronic liver diseases such as viral hepatitis, biliary cirrhosis, steatohepatitis, or autoimmune hepatitis. , * Differential diagnoses for gas/bloat in this setting include: * Irritable Bowel Syndrome (IBS):?May present with gas and bloating. * Gastroparesis, although less likely to be the primary cause of these symptoms in the setting of portal hypertension. * Small Intestinal Bacterial Overgrowth (SIBO):?Can cause bloating and gas. * Dietary Factors:?Certain foods can exacerbate gas and bloating. * Further evaluation needed to confirm the cause of the gas and bloating. * Such as EGD with biopsies, stool for pancreatic elastase, autoantibodies for celiac disease, gastric emptying study * If workup is negative then I would recommend vascular consultation due to CT abnormalities of multiple portal collateral mesenteric veins Charges/Coding Visit Charges Inpatient E&M: 18076 Init Hosp L3 03/06/251817 <Electronically signed by Luis A Singh DO> Cosigner Signature (if applicable): CC: Dr. Hari Oneill DO~ Signed [facility] Work Phone: 1(238) 496-190408-01-2025 Progress note Author Danae Stanton [facility] Note Date/Time March 06, 2025 4:2 9pm [facility] Medical Records Department [address] [place] [address] Progress Note 03/06/25 1233 MR#: [id number] Acct: [id number] Name: EDER BREEN Rep #:[id number] : 1955 69 From: Danae Stanton MD PCP: Dr. Hari Oneill, DO Status:AD M [facility] Location: [place] [id number] Subjective Subjective Patient seen and examined with his nurse by his bedside. He still complains of abdominal pain. He is having bowel movements though he states he has not passedgas. He denies any nausea or vomiting. Review of systems otherwise negative. He has remained hemodynamically stable. Objective Data Objective Data Vital Signs: Vital Signs Temp Pulse Resp BP Pulse Ox O2 Del Method 97.9 F 78 18 132/65 H 98 Room Air 03/06/25 10:08 03/06/25 10:08 03/06/25 10:08 03/06/25 10:08 03/06/25 10:08 03/06/25 10:08 Oxygen Delivery Method Room Air Weight: 289 lb 14.4 oz Body Mass Index (BMI) 39.3 Intake & Output: Intake and Output for Last 24 Hours 03/04/25 03/05/25 03/06/25 23:59 23:59 23:59 Intake Total 1095 / 1095 120 / 120 Output Total 2850 / 2850 1900 / 1900 Balance -1755 / -1755 -1780 / -1780 Lab / Micro Data 03/06/25 05:31 03/06/25 05:31 Labs: Laboratory Results - last 24 hr 03/05/25 12:13: PT 26.4 H, INR 2.4 03/05/25 18:10: Urine Osmolality 67, Ur Random Sodium < 20 03/06/25 05:31: WBC 5.6, RBC 4.20 L, Hgb 12.2 L, Hct 36.1 L, MCV 86.0, MCH 29.0,MCHC 33.8, RDW Std Deviation 44.5 H, RDW Coeff of Vaishnavi 14.1, Plt Count 207, MPV 8.8, Sodium 139, Potassium 3.2 L, Chloride 106, Carbon Dioxide 20.9 L, Anion Gap12, BUN 8, Creatinine 0.80, Estim Creat Clear Calc 118.78, Est GFR (MDRD) Non-Af95, BUN/Creatinine Ratio 10.6, Glucose 105 H, Calcium 8.9 Radiography Diagnostic Testing: Radiology Impression Abdomen/Pelvis CT 03/05/25 11:51 IMPRESSION: Gallstone in the neck of the gallbladder. Venous collateral seen throughout the subcutaneous tissues as described. Increased markings in the peritoneal fat in the in the root of the mesentery. This is stable. Reading Location: [id number] Gallbladder Ultrasound 03/05/25 13:40 IMPRESSION: Solitary gallstone in the neck of the gallbladder. Hepatomegaly and fatty infiltration of the liver. Reading Location: [facility] Physical Exam Const alert, oriented x3 and no apparent distress Constitutional Narrative: class II obesity General Appearance: cooperative HEENT normocephalic, head/scalp atraumatic, moist oral mucous membranes and oropharynxnormal Neck no lymphadenopathy and supple Lymph Lymphatic: no lymphadenopathy noted Resp normal respiratory effort, normal air movement and clear to auscultation bilaterally Cardio regular rate, regular rhythm, S1 normal heart sound, S2 normal heart sound and no murmurs GI GI Narrative: Very obese abdomen: Distended and tympanitic to percussion. Difficult to palpate for organomegaly due to abdominal distention. Nontender. Extremity normal capillary refill Skin Skin Narrative: Chronic venous stasis changes in lower extremities. Neuro CN's II-XII intact bilaterally, no focal motor deficits, no sensory deficits noted and deep tendon reflexes 2+ bilaterally Motor Exam: general weakness Psych thought process normal, cooperative and affect normal Appearance: appropriate Assessment & Plan Assessment/Plan (1) Abdominal distension: (2) Abdominal pain, acute, left lower quadrant: PLAN: Plan #Persistent abdominal pain and distention with diarrhea * Patient was just discharged a few days ago after he came in with similar complaints. During that time GI and general surgery were on board. There was concern for possible Ewelina syndrome then. He was started on a diet which he tolerated and was eating well at time of discharge. However he states he went home and his nausea and abdominal pain and distention started again and did not improve so he came into the ED. * Be hydrated with IV fluids. Currently NPO. Will consult gastroenterology. * CT abdomen and pelvis done showed gallstone in the neck of the bladder and venous collaterals seen throughout the subcutaneous tissues above as well as increased markings in the peritoneal fat in the root of the mesentery which is stable. * Gallbladder ultrasound showed solitary stone in the neck of the gallbladder with hepatomegaly and fatty infiltration of the liver. #Hyponatremia:resolved. Sodium is 139. Was 120 yesterday. It does seem to have rapidly corrected. Will monitor closely. #Hypokalemia: K is 3.2. Will replace and trend. #Debility and weakness: * PT/OT On board. Patient states he needs assistance at home as his is also sick and he is not able to do much for himself. * During his previous admission he was actually asking for Meals on Wheels. Seems like all these have been set up for him but he says nobody comes out to providing the services. * Case management on board. #History of seizure disorder: On lacosamide, Lamictal and Keppra as well as zonisamide #History of DVT status post IVC filter: On Coumadin. INR is therapeutic. #Hypothyroidism: On Synthroid #GERD: On PPI #Class II obesity: BMI is 39.3. Complicates acute care, expected recovery and prognosis. DVT prophylaxis: Not indicated as patient already on Coumadin. Charges/Coding Visit Charges Inpatient E&M: 36515 Subs Hosp L2 03/06/25 1629 <Electronically signed by Danae Stanton MD> Danae Stanton MD Cosigner Signature (if applicable): CC: ~ Signed [facility] Work Phone: 1(169) 882-383408-01-2025 Consult note [facility] Medical Records Department [address] [place] [address] Consultation - GI 03/06/25 1802 MR#: [id number] Acct: [id number] Name: EDER BREEN Rep #:[id number] : 1955 69 From: Luis A Friend DO PCP: Dr. Hari Oneill DO Status:AD [place] Location: [place] [id number] HPI Consult Data Date of Consult: 03/06/25 HPI Narrative Reason for Consultation: Abdominal pain HPI Narrative: EDER BREEN, is a 69 y/o presented to the ED with worsening abdominal pain. He has a past medical history of obesity, WILBERTO, history of PE on Coumadin statuspost IVC filter, seizure disorder, anxiety and depression. He also has a history of large B-cell lymphoma and malignant melanoma. I saw him last month for complaints of history of lower cramping abdominal pain. At that time he was having diarrhea. At this time he is not having any diarrhea. After talking to him he still complains of a lot of bloating and cramping. He has been afebrile. His repeat CT scan does show possible mesenteric collateral varicosities. He does have a history of IVC filter. He has no history of portal hypertension or cirrhosis. [facility] Medical History Seizures Loss of one eye Wears glasses Cancer Thyroid disease Arthritis Prostate disease Bladder disease Low iron High cholesterol Diarrhea Gastric reflux Non-smoker History of pain when walking Heart murmur Localized swelling of both lower legs Abnormal biliary HIDA scan Anxiety and depression HTN (hypertension) History of DVT of lower extremity Seizure disorder Home Medications ?Medication ?Instructions ?Recorded ?Last Taken ?Type lamotrigine 200 mg tablet 200 mg PO BID SEIZURES 03/1203/21/24 History (Lamictal) lacosamide 200 mg tablet 200 mg PO BID SEIZURES 09/1703/04/25 History zonisamide 100 mg capsule 100 mg PO BID SEIZURES 09/1703/20/24 History warfarin 7.5 mg tablet 7.5 mg PO DAILY BLOOD THINNE R 09/12/21 03/16/24 History levetiracetam 750 mg tablet 1,500 mg PO BID SEIZURES 0 03/11/24 03/21/24 History levothyroxine 88 mcg tablet 88 mcg PO DAILY THYROID 03/21/24 History furosemide 40 mg tablet 20 mg PO DAILY water pill Unknown History ibuprofen 600 mg tablet 600 mg PO Q6H PRN fever or p ain 08/16/24 07/30/25 Rx #20 tabs potassium chloride 20 mEq/15 mL 10 meq PO DAILY supple ment 02/27/25 Unknown History oral liquid tamsulosin 0.4 mg capsule 0.4 mg PO QHS prostate 02/27 Unknown History Allergy/AdvReac Type Severity Reaction Status Date / Time No Known Allergies Allergy Verified 03/05/25 11:42 Surgical History Hx of colonoscopy History of vascular access device Hx of vascular surgery Hx of left cataract extraction Social History household members: spouse Smoking Status: Never smoker ROS Constitutional Constitutional: Denies fatigue, fever(s), poor appetite, weight gain or weight loss Gastrointestinal Gastrointestinal: Denies belching, bloating, change in bowel habits, change in stool character, chewing difficulty, coffee ground emesis, constipation, cramping, diarrhea, dyspepsia, dysphagia, earlysatiety, excessive flatus, fecalincontinence, heartburn, hematemesis, hematochezia, hemorrhoids, loose stools, melena, nausea, odynophagia, rectal bleeding, tenesmus, vomiting or weight changes Physical Exam Const alert, oriented x3, no apparent distress and healthy appearing General Appearance: cooperative GI normal to inspection, nondistended, normoactive bowel sounds, soft to palpation,non-tender and non-distended Percussion: normal to percussion Rectal Exam: deferred Lab / Micro Data 03/06/25 05:31 03/06/25 05:31 Labs: Laboratory Results - last 24 hr 03/05/25 18:10: Urine Osmolality 67, Ur Random Sodium < 20 03/06/25 05:31: WBC 5.6, RBC 4.20 L, Hgb 12.2 L, Hct 36.1 L, MCV 86.0, MCH 29.0,MCHC 33.8, RDW Std Deviation 44.5 H, RDW Coeff of Vaishnavi 14.1, Plt Count 207, MPV 8.8, Sodium 139, Potassium 3.2 L, Chloride 106, Carbon Dioxide 20.9 L, Anion Gap12, BUN 8, Creatinine 0.80, Estim Creat Clear Calc 118.78, Est GFR (MDRD) Non-Af95, BUN/Creatinine Ratio 10.6, Glucose 105 H, Calcium 8.9 Assessment & Plan Assessment/Plan (1) Abdominal distension: (2) Abdominal pain: PLAN: 69-year-old patient presents with primary complaint of gas and bloating, which has been ongoing for several months. He reports generalized abdominal discomfort and distention, feeling full easily after eating small amounts. He does not have a known history of cirrhotic or non-cirrhotic portalhypertension. He denies history of cirrhosis or other chronic liver diseases such as viral hepatitis, biliary cirrhosis, steatohepatitis, or autoimmune hepatitis. , * Differential diagnoses for gas/bloat in this setting include: * Irritable Bowel Syndrome (IBS):?May present with gas and bloating. * Gastroparesis, although less likely to be the primary cause of these symptoms in the setting of portal hypertension. * Small Intestinal Bacterial Overgrowth (SIBO):?Can cause bloating and gas. * Dietary Factors:?Certain foods can exacerbate gas and bloating. * Further evaluation needed to confirm the cause of the gas and bloating. * Such as EGD with biopsies, stool for pancreatic elastase, autoantibodies for celiac disease, gastric emptying study * If workup is negative then I would recommend vascular consultation due to CT abnormalities of multiple portal collateral mesenteric veins Charges/Coding Visit Charges Inpatient E&M: 72354 Init Hosp L3 03/06/25 1818 Cosigner Signature (if applicable): CC: Dr. Hari Oneill, ~ Signed [facility]08-01-2025 Progress note [facility] Medical Records Department [address] [place] [address] Progress Note 03/06/25 1233 MR#: [id number] Acct: [id number] Name: EDER BREEN Rep #:[id number] : 1955 69 From: Danae Stanton MD PCP: Dr. Hari Oneill DO Status:AD M [facility] Location: [facility] [id number] Subjective Subjective Patient seen and examined with his nurse by his bedside. He still complains of abdominal pain. He is having bowel movements though he states he has not passedgas. He denies any nausea or vomiting. Review of systems otherwise negative. He has remained hemodynamically stable. Objective Data Objective Data Vital Signs: Vital Signs Temp Pulse Resp BP Pulse Ox O2 Del Method 97.9 F 78 18 132/65 H 98 Room Air 03/06/25 10:08 03/06/25 10:08 03/06/25 10:08 03/06/25 10:08 03/06/25 10:08 03/06/25 10:08 Oxygen Delivery Method Room Air Weight: 289 lb 14.4 oz Body Mass Index (BMI) 39.3 Intake & Output: Intake and Output for Last 24 Hours 03/04/25 03/05/25 03/06/25 23:59 23:59 23:59 Intake Total 1095 / 1095 120 / 120 Output Total 2850 / 2850 1900 / 1900 Balance -1755 / -1755 -1780 / -1780 Lab / Micro Data 03/06/25 05:31 03/06/25 05:31 Labs: Laboratory Results - last 24 hr 03/05/25 12:13: PT 26.4 H, INR 2.4 03/05/25 18:10: Urine Osmolality 67, Ur Random Sodium < 20 03/06/25 05:31: WBC 5.6, RBC 4.20 L, Hgb 12.2 L, Hct 36.1 L, MCV 86.0, MCH 29.0,MCHC 33.8, RDW Std Deviation 44.5 H, RDW Coeff of Vaishnavi 14.1, Plt Count 207, MPV 8.8, Sodium 139, Potassium 3.2 L, Chloride 106, Carbon Dioxide 20.9 L, Anion Gap12, BUN 8, Creatinine 0.80, Estim Creat Clear Calc 118.78, Est GFR (MDRD) Non-Af95, BUN/Creatinine Ratio 10.6, Glucose 105 H, Calcium 8.9 Radiography Diagnostic Testing: Radiology Impression Abdomen/Pelvis CT 03/05/25 11:51 IMPRESSION: Gallstone in the neck of the gallbladder. Venous collateral seen throughout the subcutaneous tissues as described. Increased markings in the peritoneal fat in the in the root of the mesentery. This is stable. Reading Location: [id number] Gallbladder Ultrasound 03/05/25 13:40 IMPRESSION: Solitary gallstone in the neck of the gallbladder. Hepatomegaly and fatty infiltration of the liver. Reading Location: [id number] Physical Exam Const alert, oriented x3 and no apparent distress Constitutional Narrative: class II obesity General Appearance: cooperative HEENT normocephalic, head/scalp atraumatic, moist oral mucous membranes and oropharynxnormal Neck no lymphadenopathy and supple Lymph Lymphatic: no lymphadenopathy noted Resp normal respiratory effort, normal air movement and clear to auscultation bilaterally Cardio regular rate, regular rhythm, S1 normal heart sound, S2 normal heart sound and no murmurs GI GI Narrative: Very obese abdomen: Distended and tympanitic to percussion. Difficult to palpate for organomegaly due to abdominal distention. Nontender. Extremity normal capillary refill Skin Skin Narrative: Chronic venous stasis changes in lower extremities. Neuro CN's II-XII intact bilaterally, no focal motor deficits, no sensory deficits noted and deep tendon reflexes 2+ bilaterally Motor Exam: general weakness Psych thought process normal, cooperative and affect normal Appearance: appropriate Assessment & Plan Assessment/Plan (1) Abdominal distension: (2) Abdominal pain, acute, left lower quadrant: PLAN: Plan #Persistent abdominal pain and distention with diarrhea * Patient was just discharged a few days ago after he came in with similar complaints. During that time GI and general surgery were on board. There was concern for possible Kimberly syndrome then. He was started on a diet which he tolerated and was eating well at time of discharge. However he stateshe went home and his nausea and abdominal pain and distention started again and did not improve so he came into the ED. * Be hydrated with IV fluids. Currently NPO. Will consult gastroenterology. * CT abdomen and pelvis done showed gallstone in the neck of the bladder and venous collaterals seen throughout the subcutaneous tissues above as well as increased markings in the peritoneal fat in the root of the mesentery which is stable. * Gallbladder ultrasound showed solitary stone in the neck of the gallbladder with hepatomegaly andfatty infiltration of the liver. #Hyponatremia:resolved. Sodium is 139. Was 120 yesterday. It does seem to have rapidly corrected. Will monitor closely. #Hypokalemia: K is 3.2. Will replace and trend. #Debility and weakness: * PT/OT On board. Patient states he needs assistance at home as his is also sick and he is notable to do much for himself. * During his previous admission he was actually asking for Meals on Wheels. Seems like all these have been set up for him but he says nobody comes out to providing the services. * Case management on board. #History of seizure disorder: On lacosamide, Lamictal and Keppra as well as zonisamide #History of DVT status post IVC filter: On Coumadin. INR is therapeutic. #Hypothyroidism: On Synthroid #GERD: On PPI #Class II obesity: BMI is 39.3. Complicates acute care, expected recovery and prognosis. DVT prophylaxis: Not indicated as patient already on Coumadin. Charges/Coding Visit Charges Inpatient E&M: 54280 Subs Hosp L2 03/06/25 1629 Danae Stanton MD Cosigner Signature (if applicable): CC: ~ Signed [facility]08-01-2025 History and physical note Author Duncan Rashid [facility] Note Date/Time March 05, 2025 10:0 0pm [facility] Medical Records Department [address] [place] [address] H&P Exam - Hospitalist 03/05/25 1536 MR#: [id number] Acct: [id number] Name: EDER BREEN Rep #:[id number] : 1955 69 From: Duncan espinoza DO PCP: Dr. Hari Oneill, DO Status:AD M [facility] Location: [place] [address] HPI - General General Date of Admission: 03/05/25 Date of Service: 03/05/25 Chief Complaint: Persistent abdominal pain with diarrhea and weakness HPI Narrative EDER BREEN, is a 69 M who presented to [facility] ED on 03/05/2025 with persistent abdominal pain with diarrhea and weakness. Patient was hospitalized here from 02/27-03/02 for abdominal pain with distention and diarrhea. GI and general surgery followed. CT abdomen pelvis on 02/27 showed gaseous distention of the transverse colon but wall thickening and marc infiltration of the small bowel mesentery possibly concerning for mesenteric adenitis. Small bowel follow- through on 02/28 showed no evidence of large bowel or small bowel obstruction. GI noted that Ewelina syndrome (acute colonic pseudoobstruction) was a strong possibility in this patient's case but differential diagnosis also included chronic intestinal pseudoobstruction, inflammatory bowel disease and lymphoma. Was noted that the nausea and diarrhearesolved during the hospitalization, though patient continued to have significant abdominal distention. He was initiated on a liquid diet and slowly advanced up to discharge. Unfortunately, patient states that he had recurrence of both nausea and diarrhea shortly after arriving back home leading to some degree of dehydration and worsening weakness, so he came back in to the ED todayfor further evaluation. In the ED he was hypertensive to the 150s systolic but otherwise in normal sinus rhythm and stable on room air at rest. Labs notable for sodium [address] abdomen pelvis showed stable findings for previous; 1.6 cm gallstone was noted in the neck of the bladder but this was noted on prior CT and was 2.1 cm at that time. Gallbladder ultrasound confirmedgallstone but no evidence of acute cholecystitis. Given his persistent symptomswith weakness and hyponatremia, hospitalist was contacted for admission. I saw the patient at bedside in the ED. Patient was laying back in bed and was fatigued appearing. He was reporting generalized discomfort due to ongoing abdominal pain with distention. He had not had a bowel movement since arriving to the ED. Was given a dose of p.o. Bentyl without much improvement. Denies any fevers or chills. Denies any chest pain or shortness of breath. Will be admitted for further management. [facility] Medical History Seizures Loss of one eye Wears glasses Cancer Thyroid disease Arthritis Prostate disease Bladder disease Low iron High cholesterol Diarrhea Gastric reflux Non-smoker History of pain when walking Heart murmur Localized swelling of both lower legs Abnormal biliary HIDA scan Anxiety and depression HTN (hypertension) History of DVT of lower extremity Seizure disorder Home Medications ?Medication ?Instructions ?Recorded ?Last Taken ?Type lamotrigine 200 mg tablet 200 mg PO BID SEIZURES 03/1203/21/24 History (Lamictal) lacosamide 200 mg tablet 200 mg PO BID SEIZURES 09/1703/04/25 History zonisamide 100 mg capsule 100 mg PO BID SEIZURES 09/1703/20/24 History warfarin 7.5 mg tablet 7.5 mg PO DAILY BLOOD THINNE R 09/12/21 03/16/24 History levetiracetam 750 mg tablet 1,500 mg PO BID SEIZURES 0 03/11/24 03/21/24 History levothyroxine 88 mcg tablet 88 mcg PO DAILY THYROID 03/21/24 History furosemide 40 mg tablet 20 mg PO DAILY water pill Unknown History ibuprofen 600 mg tablet 600 mg PO Q6H PRN fever or p ain 03/21/24 03/04/25 Rx #20 tabs potassium chloride 20 mEq/15 mL 10 meq PO DAILY supple ment 02/27/25 Unknown History oral liquid tamsulosin 0.4 mg capsule 0.4 mg PO QHS prostate 02/27 Unknown History Allergy/AdvReac Type Severity Reaction Status Date / Time No Known Allergies Allergy Verified 03/05/25 11:42 Surgical History Hx of colonoscopy History of vascular access device Hx of vascular surgery Hx of left cataract extraction Social History household members: spouse Smoking Status: Never smoker ROS Constitutional Constitutional: Reports fatigue and weakness; Denies chills or fever(s) Eyes Eyes: Denies change in vision Cardiovascular Cardiovascular: Denies chest pain Respiratory/Chest Respiratory/Chest: Denies cough or shortness of breath at rest Gastrointestinal Gastrointestinal: Reports abdominal pain, diarrhea and nausea; Denies vomiting Musculoskeletal Musculoskeletal: Denies arthralgias or myalgias Vital Signs Vital Signs Vital Signs: 03/05/25 11:42 03/05/25 13:42 03/05/25 15:00 Temperature 98.1 F Temperature Source Oral Pulse Rate 81 81 71 Respiratory Rate 18 Blood Pressure 197/86 H 153/96 H 143/66 H Blood Pressure Mean 123 115 91 Pulse Ox 100 100 Oxygen Delivery Method Room Air Weight Weight: 137.2 kg Body Mass Index (BMI) 41.0 Physical Exam Const alert and oriented x3 Constitutional Narrative: Elderly male, class II obesity, fatigued appearing, mildly uncomfortable appearing due to ongoing abdominal pain with distention, answering questions with short appropriate responses. General Appearance: cooperative HEENT normocephalic, head/scalp atraumatic, hearing grossly normal bilaterally and nasal mucous membranes and turbinates normal HEENT Narrative: Dry mucous membranes. Eyes PERRL, EOMs intact bilaterally and conjunctivae normal Neck full ROM Chest inspection of chest normal Resp normal respiratory effort, normal air movement, no use of accessory muscles and clear to auscultation bilaterally Cardio regular rate, regular rhythm, no murmurs and peripheral pulses 2+ throughout GI GI Narrative: Abdomen diffusely distended and hard. No tenderness to palpation noted. Back/Spine normal ROM Extremity full ROM Extremity Narrative: Significant chronic venous stasis changes noted in bilateral lower legs. Psych mental status grossly normal Mood & Affect: anxious Results Lab / Micro Data 03/05/25 11:54 03/05/25 11:54 Labs: Laboratory Results - last 24 hr 03/05/25 11:54: WBC 7.6, RBC 3.97 L, Hgb 11.8 L, Hct 33.7 L, MCV 84.9, MCH 29.7,MCHC 35.0, RDW Std Deviation 42.6, RDW Coeff of Vaishnavi 13.7, Plt Count 192, MPV 9.2, Immature Gran % (Auto) 0.300, Neut % (Auto) 73.3 H, Lymph % (Auto) 15.9 L, Saline % (Auto) 7.0, Eos % (Auto) 3.2, Baso % (Auto) 0.3, Absolute Neuts (auto) 5.6, Absolute Lymphs (auto) 1.20, Nucleated RBC % 0, Sodium 120 L, Potassium 3.8, Chloride 89 L, Carbon Dioxide 17.6 L, Anion Gap 13, BUN 12, Creatinine 0.77, Estim Creat Clear Calc 121.52, Est GFR (MDRD) Non-Af 96, BUN/Creatinine Ratio 16.0, Glucose 123 H, Calcium 8.1, Total Bilirubin 0.38, AST 46 H, ALT 22, Alkaline Phosphatase 119, Total Protein 6.6, Albumin 3.8, Globulin 2.9, Albumin/Globulin Ratio 1.3, Lipase 40 03/05/25 12:05: Urine Color Straw, Urine Clarity Clear, Urine pH 7.0, Ur Specific [place] 1.005, Urine Protein Negative, Urine Glucose (UA) Normal, UrineKetones Negative, Urine Occult Blood Negative, Urine Nitrite Negative, Urine Bilirubin Negative, Urine Urobilinogen Normal, Ur Leukocyte Esterase Negative, Urine RBC 0 SEEN, Urine WBC 0 SEEN, Ur Squamous Epith Cells 0 SEEN, Urine Bacteria 0 SEEN, Urine Mucus 0 SEEN 03/05/25 12:13: PT 26.4 H, INR 2.4 Imaging Radiology Impression Abdomen/Pelvis CT 03/05/25 11:51 IMPRESSION: Gallstone in the neck of the gallbladder. Venous collateral seen throughout the subcutaneous tissues as described. Increased markings in the peritoneal fat in the in the root of the mesentery. This is stable. Reading Location: [id number] Gallbladder Ultrasound 03/05/25 13:40 IMPRESSION: Solitary gallstone in the neck of the gallbladder. Hepatomegaly and fatty infiltration of the liver. Reading Location: [id number] Assessment & Plan Assessment/Plan (1) Abdominal pain: (2) Abdominal distension: PLAN: Plan Patient is a 69-year-old male who presented to [facility] ED on 03/05/2025 with persistent abdominal pain with diarrhea and weakness. 1. Persistent abdominal pain and distention with diarrhea ? Admit under observation status to [facility]. Recently hospitalized here and GI and surgery followed, see HPI for further details. Repeat CT abdomen pelvis on this admission stable from previous. 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 Abdomen remains hard and distended, and patient with poor p.o. intake with abdominal discomfort and diarrhea. Giving IV fluids as below. Unsure on how to adjust current management for patient, can consider GI consult for assistance with management. 2. Recurrent hyponatremia ? Sodium 120, chloride 89 on admit. Notably had hyponatremia with sodium 122 onrecent admission on 02/27 that improved with IV fluid resuscitation. Sodium was 138 on day of discharge on 03/02. Urine sodium less than 20 and urine osmolalityvery low at 67, consistent with maximal retention of sodium by the kidneys. Suspect sodium drop is due to GI losses and poor p.o. intake primarily, unclear if secondary etiology is also possible. Given 1 L of normal saline in the ED, will give another liter of normal saline over several hours this evening. Follow-up a.m. BMP. 3. Acute debility ? PT/OT/case management consulted. Patient lives at home with his . Has had worsening debility recently due to ongoing medical issues as above. Appreciate therapy recommendations. Chronic medical conditions: ? Class II obesity: BMI 39 on admit. Complicates hospital course and care. ? History of seizure disorder: Continue home lacosamide, Lamictal, Keppra and zonisamide. ? History of DVT s/p IVC filter placement: INR therapeutic at 2.4 on admit. Continue home Coumadin. ? Hypothyroidism: Recent TSH normal on 02/28. Continue home Synthroid. ? GERD: Continue home PPI. DVT prophylaxis: Not indicated, on Coumadin CODE STATUS: Full code, verified Expected disposition: TBD Total clinical time spent by myself addressing the patient's medical issues, reviewing all the data, and collaborating with patient's care team: 75 minutes. Charges/Coding Visit Charges Inpatient E&M: 71915 Init Hosp L3 03/05/25 2200 <Electronically signed by Duncan Rashid DO> Cosigner Signature (if applicable): CC: Dr. Duncan Rashid DO; Dr. Hari Oneill DO~ Signed [facility] Work Phone: [phone]) 967-507607-31-2025 History and physical note [facility] Medical Records Department [address] [place] [address] H&P Exam - Hospitalist 03/05/25 1536 MR#: [id number] Acct: [id number] Name: EDER BREEN Rep #:[id number] : 1955 69 From: Duncan espinoza DO PCP: Dr. Hari Oneill DO Status:AD M [facility] Location: [facility] [id number] HPI - General General Date of Admission: 03/05/25 Date of Service: 03/05/25 Chief Complaint: Persistent abdominal pain with diarrhea and weakness HPI Narrative EDER BREEN, is a 69 M who presented to [facility] ED on 03/05/2025 with persistent abdominal pain with diarrhea and weakness. Patient was hospitalized here from 02/27-03/02 for abdominal pain with distention and diarrhea. GI and general surgery followed. CT abdomen pelvis on 02/27showed gaseous distention of the transverse colon but wall thickening and marc infiltration of thesmall bowel mesentery possibly concerning for mesenteric adenitis. Small bowel follow-through on 02/28 showed no evidence of large bowel or small bowel obstruction. GI noted that Kimberly syndrome (acute colonic pseudoobstruction) was a strong possibility in this patient's case but differential diagnosis also included chronic intestinal pseudoobstruction, inflammatory bowel disease and lymphoma. Was noted that the nausea and diarrhearesolved during the hospitalization, though patient continued tohave significant abdominal distention. He was initiated on a liquid diet and slowly advanced up to discharge. Unfortunately, patient states that he had recurrence of both nausea and diarrhea shortly after arriving back home leading to some degree of dehydration and worsening weakness, so he came back in to the ED todayfor further evaluation. In the ED he was hypertensive to the 150s systolic but otherwise in normal sinus rhythm and stable on room air at rest. Labs notable for sodium [address] abdomen pelvis showed stable findings for previous; 1.6 cm gallstone was noted in the neck of the bladder but this was noted on prior CT and was 2.1 cm at that time. Gallbladder ultrasound confirmedgallstone but no evidence of acute cholecystitis. Given his persistent symptomswith weakness and hyponatremia, hospitalist was contacted for admission. I saw the patient at bedside in the ED. Patient was laying back in bed and was fatigued appearing. He was reporting generalized discomfort due to ongoing abdominal pain with distention. He had not had a bowel movement since arriving to the ED. Was given a dose of p.o. Bentyl without much improvement. Denies any fevers or chills. Deniesany chest pain or shortness of breath. Will be admitted for further management. [facility] Medical History Seizures Loss of one eye Wears glasses Cancer Thyroid disease Arthritis Prostate disease Bladder disease Low iron High cholesterol Diarrhea Gastric reflux Non-smoker History of pain when walking Heart murmur Localized swelling of both lower legs Abnormal biliary HIDA scan Anxiety and depression HTN (hypertension) History of DVT of lower extremity Seizure disorder Home Medications ?Medication ?Instructions ?Recorded ?Last Taken ?Type lamotrigine 200 mg tablet 200 mg PO BID SEIZURES 03/1203/21/24 History (Lamictal) lacosamide 200 mg tablet 200 mg PO BID SEIZURES 09/1703/04/25 History zonisamide 100 mg capsule 100 mg PO BID SEIZURES 09/1703/20/24 History warfarin 7.5 mg tablet 7.5 mg PO DAILY BLOOD THINNE R 09/12/21 03/16/24 History levetiracetam 750 mg tablet 1,500 mg PO BID SEIZURES 0 03/11/24 03/21/24 History levothyroxine 88 mcg tablet 88 mcg PO DAILY THYROID 03/21/24 History furosemide 40 mg tablet 20 mg PO DAILY water pill Unknown History ibuprofen 600 mg tablet 600 mg PO Q6H PRN fever or p ain 03/21/24 03/04/25 Rx #20 tabs potassium chloride 20 mEq/15 mL 10 meq PO DAILY supple ment 02/27/25 Unknown History oral liquid tamsulosin 0.4 mg capsule 0.4 mg PO QHS prostate 02/27 Unknown History Allergy/AdvReac Type Severity Reaction Status Date / Time No Known Allergies Allergy Verified 03/05/25 11:42 Surgical History Hx of colonoscopy History of vascular access device Hx of vascular surgery Hx of left cataract extraction Social History household members: spouse Smoking Status: Never smoker ROS Constitutional Constitutional: Reports fatigue and weakness; Denies chills or fever(s) Eyes Eyes: Denies change in vision Cardiovascular Cardiovascular: Denies chest pain Respiratory/Chest Respiratory/Chest: Denies cough or shortness of breath at rest Gastrointestinal Gastrointestinal: Reports abdominal pain, diarrhea and nausea; Denies vomiting Musculoskeletal Musculoskeletal: Denies arthralgias or myalgias Vital Signs Vital Signs Vital Signs: 03/05/25 11:42 03/05/25 13:42 03/05/25 15:00 Temperature 98.1 F Temperature Source Oral Pulse Rate 81 81 71 Respiratory Rate 18 Blood Pressure 197/86 H 153/96 H 143/66 H Blood Pressure Mean 123 115 91 Pulse Ox 100 100 Oxygen Delivery Method Room Air Weight Weight: 137.2 kg Body Mass Index (BMI) 41.0 Physical Exam Const alert and oriented x3 Constitutional Narrative: Elderly male, class II obesity, fatigued appearing, mildly uncomfortable appearing due to ongoing abdominal pain with distention, answering questions with short appropriate responses. General Appearance: cooperative HEENT normocephalic, head/scalp atraumatic, hearing grossly normal bilaterally and nasal mucous membranesand turbinates normal HEENT Narrative: Dry mucous membranes. Eyes PERRL, EOMs intact bilaterally and conjunctivae normal Neck full ROM Chest inspection of chest normal Resp normal respiratory effort, normal air movement, no use of accessory muscles and clear to auscultation bilaterally Cardio regular rate, regular rhythm, no murmurs and peripheral pulses 2+ throughout GI GI Narrative: Abdomen diffusely distended and hard. No tenderness to palpation noted. Back/Spine normal ROM Extremity full ROM Extremity Narrative: Significant chronic venous stasis changes noted in bilateral lower legs. Psych mental status grossly normal Mood & Affect: anxious Results Lab / Micro Data 03/05/25 11:54 03/05/25 11:54 Labs: Laboratory Results - last 24 hr 03/05/25 11:54: WBC 7.6, RBC 3.97 L, Hgb 11.8 L, Hct 33.7 L, MCV 84.9, MCH 29.7,MCHC 35.0, RDW Std Deviation 42.6, RDW Coeff of Vaishnavi 13.7, Plt Count 192, MPV 9.2, Immature Gran % (Auto) 0.300, Neut % (Auto) 73.3 H, Lymph % (Auto) 15.9 L, Saline % (Auto) 7.0, Eos % (Auto) 3.2, Baso % (Auto) 0.3, Absolute Neuts (auto) 5.6, Absolute Lymphs (auto) 1.20, Nucleated RBC % 0, Sodium 120 L, Potassium 3.8, Chloride 89 L, Carbon Dioxide 17.6 L, Anion Gap 13, BUN 12, Creatinine 0.77, Estim Creat Clear Calc 121.52, Est GFR (MDRD) Non-Af 96, BUN/Creatinine Ratio 16.0, Glucose 123 H, Calcium 8.1, Total Bilirubin 0.38, AST 46 H, ALT 22, Alkaline Phosphatase 119, Total Protein 6.6, Albumin 3.8, Globulin 2.9, Al bumin/Globulin Ratio 1.3, Lipase 40 03/05/25 12:05: Urine Color Straw, Urine Clarity Clear, Urine pH 7.0, Ur Specific [place] 1.005, Urine Protein Negative, Urine Glucose (UA) Normal, UrineKetones Negative, Urine Occult Blood Negative,Urine Nitrite Negative, Urine Bilirubin Negative, Urine Urobilinogen Normal, Ur Leukocyte Esterase Negative, Urine RBC 0 SEEN, Urine WBC 0 SEEN, Ur Squamous Epith Cells 0 SEEN, Urine Bacteria 0 SEEN,Urine Mucus 0 SEEN 03/05/25 12:13: PT 26.4 H, INR 2.4 Imaging Radiology Impression Abdomen/Pelvis CT 03/05/25 11:51 IMPRESSION: Gallstone in the neck of the gallbladder. Venous collateral seen throughout the subcutaneous tissues as described. Increased markings in the peritoneal fat in the in the root of the mesentery. This is stable. Reading Location: [id number] Gallbladder Ultrasound 03/05/25 13:40 IMPRESSION: Solitary gallstone in the neck of the gallbladder. Hepatomegaly and fatty infiltration of the liver. Reading Location: [id number] Assessment & Plan Assessment/Plan (1) Abdominal pain: (2) Abdominal distension: PLAN: Plan Patient is a 69-year-old male who presented to [facility] ED on 03/05/2025 with persistent abdominal pain with diarrhea and weakness. 1. Persistent abdominal pain and distention with diarrhea ? Admit under observation status to [facility]. Recently hospitalized here and GI and surgery followed, see HPI for further details. Repeat CT abdomen pelvis on this admission stable from previous. 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 Abdomen remains hard and distended, and patient with poor p.o. intake with abdominal discomfort and diarrhea. Giving IV fluids as below. Unsure on how to adjust current management for patient, can consider GI consult for assistance with management. 2. Recurrent hyponatremia ? Sodium 120, chloride 89 on admit. Notably had hyponatremia with sodium 122 onrecent admission on 02/27 that improved with IV fluid resuscitation. Sodium was 138 on day of discharge on 03/02. Urine sodium less than 20 and urine osmolalityvery low at 67, consistent with maximal retention of sodium bythe kidneys. Suspect sodium drop is due to GI losses and poor p.o. intake primarily, unclear if secondary etiology is also possible. Given 1 L of normal saline in the ED, will give another liter of normal saline over several hours this evening. Follow-up a.m. BMP. 3. Acute debility ? PT/OT/case management consulted. Patient lives at home with his . Has had worsening debility recently due to ongoing medical issues as above. Appreciate therapy recommendations. Chronic medical conditions: ? Class II obesity: BMI 39 on admit. Complicates hospital course and care. ? History of seizure disorder: Continue home lacosamide, Lamictal, Keppra and zonisamide. ? History of DVT s/p IVC filter placement: INR therapeutic at 2.4 on admit. Continue home Coumadin. ? Hypothyroidism: Recent TSH normal on 02/28. Continue home Synthroid. ? GERD: Continue home PPI. DVT prophylaxis: Not indicated, on Coumadin CODE STATUS: Full code, verified Expected disposition: TBD Total clinical time spent by myself addressing the patient's medical issues, reviewing all the data, and collaborating with patient's care team: 75 minutes. Charges/Coding Visit Charges Inpatient E&M: 80457 Init Hosp L3 03/05/25 2200 Cosigner Signature (if applicable): CC: Dr. Duncan Rashid, ; Dr. Hari Oneill, ~ Signed [facility]07-31-2025 Discharge summary Author Rustam Warren [facility] Note Date/Time March 05, 2025 3:44 pm [facility] Medical Records Department [address] [place] [address] Emergency Department Summary 03/05/25 MR#: [id number] Acct: [id number] Name: EDER BREEN Rep #:[id number] : 1955 69 From: Rustam Warren MD PCP: Dr. Hari Oneill DO Status:RE G ER Location: ED HPI HPI - GI History of Present Illness Chief Complaint: Abd Pain Diarrhea/Melena/Hematochezia GI Symptom: Positive for Diarrhea Onset: Weeks Stool Quality: Positive for Loose Episodes: 8 Narrative Narrative: 69-year-old male presents via EMS with generalized weakness and abdominal pain with distention that he has had for few weeks. He relates history that he was admitted to the hospital sometime last week, and had hypokalemia. He states that even though he was released from the hospital he was not feeling any betterand was still having abdominal pain and diarrhea. He denies any recent antibiotic use but states within the last 24 hours he has had 8 episodes of diarrhea. No fevers or chills, no nausea or vomiting. He states he has had decreased activity and generalized weakness although he was able to get up and go to the bathroom from the cot when he arrived via EMS. He states he called the squad today because he had not been feeling well. [facility] Medical History Seizures Loss of one eye Wears glasses Cancer Thyroid disease Arthritis Prostate disease Bladder disease Low iron High cholesterol Diarrhea Gastric reflux Non-smoker History of pain when walking Heart murmur Localized swelling of both lower legs Abnormal biliary HIDA scan Anxiety and depression HTN (hypertension) History of DVT of lower extremity Seizure disorder Home Medications ?Medication ?Instructions ?Recorded ?Last Taken ?Type lamotrigine 200 mg tablet 200 mg PO BID SEIZURES 03/1203/21/24 History (Lamictal) lacosamide 200 mg tablet 200 mg PO BID SEIZURES 09/1703/04/25 History zonisamide 100 mg capsule 100 mg PO BID SEIZURES 09/1703/20/24 History warfarin 7.5 mg tablet 7.5 mg PO DAILY BLOOD THINNE R 09/12/21 03/16/24 History levetiracetam 750 mg tablet 1,500 mg PO BID SEIZURES 0 03/11/24 03/21/24 History levothyroxine 88 mcg tablet 88 mcg PO DAILY THYROID 03/21/24 History furosemide 40 mg tablet 20 mg PO DAILY water pill Unknown History ibuprofen 600 mg tablet 600 mg PO Q6H PRN fever or p ain 03/21/24 03/04/25 Rx #20 tabs potassium chloride 20 mEq/15 mL 10 meq PO DAILY supple ment 02/27/25 Unknown History oral liquid tamsulosin 0.4 mg capsule 0.4 mg PO QHS prostate 02/27 Unknown History Allergy/AdvReac Type Severity Reaction Status Date / Time No Known Allergies Allergy Verified 03/05/25 11:42 Surgical History Hx of colonoscopy History of vascular access device Hx of vascular surgery Hx of left cataract extraction Social History household members: spouse Smoking Status: Never smoker ROS ROS ED ROS Narrative Review of systems positive for generalized weakness, lethargy, abdominal pain periumbilical to suprapubic with distention. No exacerbating or alleviating factors. EXAM Physical Exam Narrative Exam Narrative: Afebrile. Vital signs noted. Nontoxic-appearing. Able to ambulate in the ED upon arrival. 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 Slightly tacky mucous membranes. No drooling or trismus. Neck soft and supple without meningismus. Cardiovascular examination regular rate and rhythm. Lungsclear to auscultation bilaterally anteriorly. Abdomen is soft, mildly distendedwith tenderness to palpation in the suprapubic area. Positive bowel sounds. Neurological examination is nonfocal and nonlateralizing. Const Vital Signs: 03/05/25 11:42 03/05/25 13:42 03/05/25 15:00 Temperature 98.1 F Temperature Source Oral Pulse Rate 81 81 71 Respiratory Rate 18 Blood Pressure 197/86 H 153/96 H 143/66 H Blood Pressure Mean 123 115 91 Pulse Ox 100 100 Oxygen Delivery Method Room Air 03/05/25 15:38 Temperature 98.1 F Temperature Source Pulse Rate 71 Respiratory Rate 18 Blood Pressure 150/68 H Blood Pressure Mean 95 Pulse Ox 100 Oxygen Delivery Method MDM MDM MDM Narrative Medical decision making narrative: I reviewed the patient's prior records. He was seen in the emergency departmentand admitted to the PCU because CT of the abdomen and pelvis showed transverse colon distention without evidence of obstruction or inflammation. He did have hyponatremia as well. Differential diagnosis includes but not limited to development of intra-abdominal abscess versus diverticulitis versus obstruction versus UTI. I will check his CMP for electrolyte imbalance or hyponatremia and hypokalemia which she had previously. In review of his problem list he has had ileus as well. He is on Coumadin so INR will be checked as he has history of supratherapeutic INR as well. UA will be checked to look for signs of infectionor cystitis. EKG was obtained and interpreted by myself independently as normal sinus rhythm at [address] changes. No STEMI. I reviewed his laboratory work and he has a normal white count of 7.6 with a hemoglobin stable at 11.8, platelet count 192. INR is therapeutic at 2.4. Review of his electrolyte panel shows hyponatremia of 120 and chloride 89. Potassium normal at 3.8. When compared to prior labs, he did have hyponatremia which had improved but it was not this low previously. Glucose 123. LFTs show AST slightly elevated at 46 but normal lipase of 40 and alk phos normal at 119. Total bili normal at 0.38. Urinalysis is negative for infection. No feel antibiotics are indicated. Also, I reviewed the radiology report of the CT of the abdomen and pelvis and while there is no reason for his lower abdominal pain there was reported, he does have a gallstone in the neck of the gallbladder. He is not having nausea or vomiting or right upper quadrant pain. I did obtain gallbladder ultrasound which does show solitary gallstone in the neck of the gallbladder on the radiology report. At this point in time, given his hyponatremia, I discussed the patient with Dr. Rashid for admission. Disposition is admit in stable condition. History & Record Review Discussion w/independent historian: Patient Additional record(s) reviewed:: Prior ED visit (Previous transverse colon dilation but no evidence of obstruction.) and Prior labs Lab Data Attestation: I reviewed the patient's lab results. Labs: Laboratory Results - last 24 hr 03/05/25 03/05/25 03/05/25 11:54 12:05 12:13 WBC 7.6 RBC 3.97 L Hgb 11.8 L Hct 33.7 L MCV 84.9 MCH 29.7 MCHC 35.0 RDW Std Deviation 42.6 RDW Coeff of [place] 13.7 Plt Count 192 MPV 9.2 Immature Gran % (Auto) 0.300 Neut % (Auto) 73.3 H Lymph % (Auto) 15.9 L Saline % (Auto) 7.0 Eos % (Auto) 3.2 Baso % (Auto) 0.3 Absolute Neuts (auto) 5.6 Absolute Lymphs (auto) 1.20 Nucleated RBC % 0 PT 26.4 H INR 2.4 Sodium 120 L Potassium 3.8 Chloride 89 L Carbon Dioxide 17.6 L Anion Gap 13 BUN 12 Creatinine 0.77 Estim Creat Clear Calc 121.52 Est GFR (MDRD) Non-Af 96 BUN/Creatinine Ratio 16.0 Glucose 123 H Calcium 8.1 Total Bilirubin 0.38 AST 46 H ALT 22 Alkaline Phosphatase 119 Total Protein 6.6 Albumin 3.8 Globulin 2.9 Albumin/Globulin Ratio 1.3 Lipase 40 Urine Color Straw Urine Clarity Clear Urine pH 7.0 Ur Specific [place] 1.005 Urine Protein Negative Urine Glucose (UA) Normal Urine Ketones Negative Urine Occult Blood Negative Urine Nitrite Negative Urine Bilirubin Negative Urine Urobilinogen Normal Ur Leukocyte Esterase Negative Urine RBC 0 SEEN Urine WBC 0 SEEN Ur Squamous Epith Cells 0 SEEN Urine Bacteria 0 SEEN Urine Mucus 0 SEEN Radiography Diagnostic Testing: Clinical Impression(s) from Imaging Studies Abdomen/Pelvis CT 03/05/25 11:51 IMPRESSION: Gallstone in the neck of the gallbladder. Venous collateral seen throughout the subcutaneous tissues as described. Increased markings in the peritoneal fat in the in the root of the mesentery. This is stable. Reading Location: [facility] Gallbladder Ultrasound 03/05/25 13:40 IMPRESSION: Solitary gallstone in the neck of the gallbladder. Hepatomegaly and fatty infiltration of the liver. Reading Location: [facility] Management Discussion w/another healthcare provider: Hospitalist (Dr. Rashid) Discharge Plan Dx/Rx/DC Orders Clinical Impression: Hyponatremia, Generalized weakness, Gallstone Disposition Disposition: Acute Care Hospital [facility] What to do if you have Problems For any increased pain, shortness of breath, bleeding, nausea or vomiting, chestpain, or any unexpected problems, contact your Primary Care Provider. Call [facility] ([phone]) or report to the closest Emergency Room. Call 911 if necessary. 03/05/25 1544 <Electronically signed by Rustam Warren MD> Cosigner Signature (if applicable): CC: Dr. Hari Oneill, ~ Signed [facility] Work Phone: [phone] Discharge summary [facility] Medical Records Department [address] [place] [address] Emergency Department Summary 03/05/25 MR#: [id number] Acct: [id number] Name: EDER BREEN Rep #:[id number] : 1955 69 From: Rustam Warren MD PCP: Dr. Hari Oneill, DO Status:RE G ER Location: ED HPI HPI - GI History of Present Illness Chief Complaint: Abd Pain Diarrhea/Melena/Hematochezia GI Symptom: Positive for Diarrhea Onset: Weeks Stool Quality: Positive for Loose Episodes: 8 Narrative Narrative: 69-year-old male presents via EMS with generalized weakness and abdominal pain with distention thathe has had for few weeks. He relates history that he was admitted to the hospital sometime last week, and had hypokalemia. He states that even though he was released from the hospital he was not feeling any betterand was still having abdominal pain and diarrhea. He denies any recent antibiotic use but states within the last 24 hours he has had 8 episodes of diarrhea. No fevers or chills, no nausea or vomiting. He states he has had decreased activity and generalized weakness although he was ableto get up and go to the bathroom from the cot when he arrived via EMS. He states he called the squad today because he had not been feeling well. [facility] Medical History Seizures Loss of one eye Wears glasses Cancer Thyroid disease Arthritis Prostate disease Bladder disease Low iron High cholesterol Diarrhea Gastric reflux Non-smoker History of pain when walking Heart murmur Localized swelling of both lower legs Abnormal biliary HIDA scan Anxiety and depression HTN (hypertension) History of DVT of lower extremity Seizure disorder Home Medications ?Medication ?Instructions ?Recorded ?Last Taken ?Type lamotrigine 200 mg tablet 200 mg PO BID SEIZURES 03/1203/21/24 History (Lamictal) lacosamide 200 mg tablet 200 mg PO BID SEIZURES 09/1703/04/25 History zonisamide 100 mg capsule 100 mg PO BID SEIZURES 09/1703/20/24 History warfarin 7.5 mg tablet 7.5 mg PO DAILY BLOOD THINNE R 09/12/21 03/16/24 History levetiracetam 750 mg tablet 1,500 mg PO BID SEIZURES 0 03/11/24 03/21/24 History levothyroxine 88 mcg tablet 88 mcg PO DAILY THYROID 03/21/24 History furosemide 40 mg tablet 20 mg PO DAILY water pill Unknown History ibuprofen 600 mg tablet 600 mg PO Q6H PRN fever or p ain 03/21/24 03/04/25 Rx #20 tabs potassium chloride 20 mEq/15 mL 10 meq PO DAILY supple ment 02/27/25 Unknown History oral liquid tamsulosin 0.4 mg capsule 0.4 mg PO QHS prostate 02/27 Unknown History Allergy/AdvReac Type Severity Reaction Status Date / Time No Known Allergies Allergy Verified 03/05/25 11:42 Surgical History Hx of colonoscopy History of vascular access device Hx of vascular surgery Hx of left cataract extraction Social History household members: spouse Smoking Status: Never smoker ROS ROS ED ROS Narrative Review of systems positive for generalized weakness, lethargy, abdominal pain periumbilical to suprapubic with distention. No exacerbating or alleviating factors. EXAM Physical Exam Narrative Exam Narrative: Afebrile. Vital signs noted. Nontoxic-appearing. Able to ambulate in the ED upon arrival. 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 Slightly tacky mucous membranes. No drooling or trismus. Neck soft and supple without meningismus. Cardiovascular examination regular rate and rhythm. Lungsclear to auscultation bilaterally anteriorly. Abdomen is soft, mildly distendedwith tenderness to palpation in the suprapubic area. Positive bowel sounds. Neurological examination is nonfocal and nonlateralizing. Const Vital Signs: 03/05/25 11:42 03/05/25 13:42 03/05/25 15:00 Temperature 98.1 F Temperature Source Oral Pulse Rate 81 81 71 Respiratory Rate 18 Blood Pressure 197/86 H 153/96 H 143/66 H Blood Pressure Mean 123 115 91 Pulse Ox 100 100 Oxygen Delivery Method Room Air 03/05/25 15:38 Temperature 98.1 F Temperature Source Pulse Rate 71 Respiratory Rate 18 Blood Pressure 150/68 H Blood Pressure Mean 95 Pulse Ox 100 Oxygen Delivery Method MDM MDM MDM Narrative Medical decision making narrative: I reviewed the patient's prior records. He was seen in the emergency departmentand admitted to the PCU because CT of the abdomen and pelvis showed transverse colon distention without evidence of obstruction or inflammation. He did have hyponatremia as well. Differential diagnosis includes but not limited to development of intra-abdominal abscess versus diverticulitis versus obstruction versus UTI. I will check his CMP for electrolyte imbalance or hyponatremia and hypokalemia which she had previously. In review of his problem list he has had ileus as well. He is on Coumadin so INR will be checked as he has history of supratherapeutic INR as well. UA will be checked to look for signs of infectionor cystitis. EKG was obtained and interpreted by myself independently as normal sinus rhythm at [address] changes. No STEMI. I reviewed his laboratory work and he has a normal white count of 7.6 with a hemoglobin stable at 11.8, platelet count 192. INR is therapeutic at 2.4. Review of his electrolyte panel shows hyponatremia of 120 and chloride 89. Potassium normal at 3.8. When compared to prior labs, he did have hyponatremia which had improved but it was not this low previously. Glucose 123. LFTs show AST slightly elevated at 46 but normal lipase of 40 and alk phos normal at 119. Total bili normal at 0.38. Urinalysis is negative for infection. No feel antibiotics are indicated. Also, I reviewed the radiology report of the CT of the abdomen and pelvis and while there is no reason for his lower abdominal pain there was reported, he does have a gallstone in the neck of the gallbladder. He is not having nausea or vomiting or right upper quadrant pain. I did obtain gallbladderultrasound which does show solitary gallstone in the neck of the gallbladder on the radiology report. At this point in time, given his hyponatremia, I discussed the patient with Dr. Rashid for admission. Disposition is admit in stable condition. History & Record Review Discussion w/independent historian: Patient Additional record(s) reviewed:: Prior ED visit (Previous transverse colon dilation but no evidence of obstruction.) and Prior labs Lab Data Attestation: I reviewed the patient's lab results. Labs: Laboratory Results - last 24 hr 03/05/25 03/05/25 03/05/25 11:54 12:05 12:13 WBC 7.6 RBC 3.97 L Hgb 11.8 L Hct 33.7 L MCV 84.9 MCH 29.7 MCHC 35.0 RDW Std Deviation 42.6 RDW Coeff of [place] 13.7 Plt Count 192 MPV 9.2 Immature Gran % (Auto) 0.300 Neut % (Auto) 73.3 H Lymph % (Auto) 15.9 L Saline % (Auto) 7.0 Eos % (Auto) 3.2 Baso % (Auto) 0.3 Absolute Neuts (auto) 5.6 Absolute Lymphs (auto) 1.20 Nucleated RBC % 0 PT 26.4 H INR 2.4 Sodium 120 L Potassium 3.8 Chloride 89 L Carbon Dioxide 17.6 L Anion Gap 13 BUN 12 Creatinine 0.77 Estim Creat Clear Calc 121.52 Est GFR (MDRD) Non-Af 96 BUN/Creatinine Ratio 16.0 Glucose 123 H Calcium 8.1 Total Bilirubin 0.38 AST 46 H ALT 22 Alkaline Phosphatase 119 Total Protein 6.6 Albumin 3.8 Globulin 2.9 Albumin/Globulin Ratio 1.3 Lipase 40 Urine Color Straw Urine Clarity Clear Urine pH 7.0 Ur Specific [place] 1.005 Urine Protein Negative Urine Glucose (UA) Normal Urine Ketones Negative Urine Occult Blood Negative Urine Nitrite Negative Urine Bilirubin Negative Urine Urobilinogen Normal Ur Leukocyte Esterase Negative Urine RBC 0 SEEN Urine WBC 0 SEEN Ur Squamous Epith Cells 0 SEEN Urine Bacteria 0 SEEN Urine Mucus 0 SEEN Radiography Diagnostic Testing: Clinical Impression(s) from Imaging Studies Abdomen/Pelvis CT 03/05/25 11:51 IMPRESSION: Gallstone in the neck of the gallbladder. Venous collateral seen throughout the subcutaneous tissues as described. Increased markings in the peritoneal fat in the in the root of the mesentery. This is stable. Reading Location: [facility] Gallbladder Ultrasound 03/05/25 13:40 IMPRESSION: Solitary gallstone in the neck of the gallbladder. Hepatomegaly and fatty infiltration of the liver. Reading Location: [facility] Management Discussion w/another healthcare provider: Hospitalist (Dr. Rashid) Discharge Plan Dx/Rx/DC Orders Clinical Impression: Hyponatremia, Generalized weakness, Gallstone Disposition Disposition: Acute Care Hospital [facility] What to do if you have Problems For any increased pain, shortness of breath, bleeding, nausea or vomiting, chestpain, or any unexpected problems, contact your Primary Care Provider. Call [facility] ([phone]) or report tothe closest Emergency Room. Call 911 if necessary. 03/05/25 1544 Cosigner Signature (if applicable): CC: Dr. Hari Oneill DO ~ Signed [facility]07-31-2025 Radiology Diagnostic study note [facility] Imaging Services [address] [place] [id number] Gallbladder MR#: [id number] Acct: [id number] Name: EDER BREEN Rep #: [id number] : 1955 M 69 From: Hair Moreno MD PCP: Dr. Hari Oneill DO Status: RE G ER Study:Gallbladder Date of Exam: 03/05/25 Exam# [id number] Ordering Dr: Rustam Warren MD PROCEDURE: GALLBLADDER N/A REASON FOR EXAM: GALLSTONE, PAIN COMPARISON: CT scan done earlier in the day. FINDINGS: Liver: Diffusely echogenic suggesting fatty infiltration. Hepatomegaly. The liver measures 20 cm. Gallbladder: Solitary gallstone in the neck of the gallbladder measuring 2.6 cm x 2.6 cm. Common bile duct: Not visualized due to overlying bowel gas. . Pancreas: Obscured by bowel gas. Other: Visualized portions of the right kidney are unremarkable. No right upperquadrant ascites. US/Gallbladder IMPRESSION: Solitary gallstone in the neck of the gallbladder. Hepatomegaly and fatty infiltration of the liver. Reading Location: [id number] CC: Dr. Rustam Warren MD; Dr. Hari Oneill DO ~ 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: Signed [facility]07-31-2025 Discharge summary Author Rustam Warren [facility] Note Date/Time March 05, 2025 3:44 pm [facility] Medical Records Department [address] [place] [address] Emergency Department Summary 03/05/25 MR#: [id number] Acct: [id number] Name: EDER BREEN Rep #:[id number] : 1955 69 From: Rustam Warren MD PCP: Dr. Hari Oneill, DO Status:RE G ER Location: ED HPI HPI - GI History of Present Illness Chief Complaint: Abd Pain Diarrhea/Melena/Hematochezia GI Symptom: Positive for Diarrhea Onset: Weeks Stool Quality: Positive for Loose Episodes: 8 Narrative Narrative: 69-year-old male presents via EMS with generalized weakness and abdominal pain with distention that he has had for few weeks. He relates history that he was admitted to the hospital sometime last week, and had hypokalemia. He states that even though he was released from the hospital he was not feeling any betterand was still having abdominal pain and diarrhea. He denies any recent antibiotic use but states within the last 24 hours he has had 8 episodes of diarrhea. No fevers or chills, no nausea or vomiting. He states he has had decreased activity and generalized weakness although he was able to get up and go to the bathroom from the cot when he arrived via EMS. He states he called the squad today because he had not been feeling well. [facility] Medical History Seizures Loss of one eye Wears glasses Cancer Thyroid disease Arthritis Prostate disease Bladder disease Low iron High cholesterol Diarrhea Gastric reflux Non-smoker History of pain when walking Heart murmur Localized swelling of both lower legs Abnormal biliary HIDA scan Anxiety and depression HTN (hypertension) History of DVT of lower extremity Seizure disorder Home Medications ?Medication ?Instructions ?Recorded ?Last Taken ?Type lamotrigine 200 mg tablet 200 mg PO BID SEIZURES 03/1203/21/24 History (Lamictal) lacosamide 200 mg tablet 200 mg PO BID SEIZURES 09/1703/04/25 History zonisamide 100 mg capsule 100 mg PO BID SEIZURES 09/1703/20/24 History warfarin 7.5 mg tablet 7.5 mg PO DAILY BLOOD THINNE R 09/12/21 03/16/24 History levetiracetam 750 mg tablet 1,500 mg PO BID SEIZURES 0 03/11/24 03/21/24 History levothyroxine 88 mcg tablet 88 mcg PO DAILY THYROID 03/21/24 History furosemide 40 mg tablet 20 mg PO DAILY water pill Unknown History ibuprofen 600 mg tablet 600 mg PO Q6H PRN fever or p ain 03/21/24 03/04/25 Rx #20 tabs potassium chloride 20 mEq/15 mL 10 meq PO DAILY supple ment 02/27/25 Unknown History oral liquid tamsulosin 0.4 mg capsule 0.4 mg PO QHS prostate 02/27 Unknown History Allergy/AdvReac Type Severity Reaction Status Date / Time No Known Allergies Allergy Verified 03/05/25 11:42 Surgical History Hx of colonoscopy History of vascular access device Hx of vascular surgery Hx of left cataract extraction Social History household members: spouse Smoking Status: Never smoker ROS ROS ED ROS Narrative Review of systems positive for generalized weakness, lethargy, abdominal pain periumbilical to suprapubic with distention. No exacerbating or alleviating factors. EXAM Physical Exam Narrative Exam Narrative: Afebrile. Vital signs noted. Nontoxic-appearing. Able to ambulate in the ED upon arrival. 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 Slightly tacky mucous membranes. No drooling or trismus. Neck soft and supple without meningismus. Cardiovascular examination regular rate and rhythm. Lungsclear to auscultation bilaterally anteriorly. Abdomen is soft, mildly distendedwith tenderness to palpation in the suprapubic area. Positive bowel sounds. Neurological examination is nonfocal and nonlateralizing. Const Vital Signs: 03/05/25 11:42 03/05/25 13:42 03/05/25 15:00 Temperature 98.1 F Temperature Source Oral Pulse Rate 81 81 71 Respiratory Rate 18 Blood Pressure 197/86 H 153/96 H 143/66 H Blood Pressure Mean 123 115 91 Pulse Ox 100 100 Oxygen Delivery Method Room Air 03/05/25 15:38 Temperature 98.1 F Temperature Source Pulse Rate 71 Respiratory Rate 18 Blood Pressure 150/68 H Blood Pressure Mean 95 Pulse Ox 100 Oxygen Delivery Method MDM MDM MDM Narrative Medical decision making narrative: I reviewed the patient's prior records. He was seen in the emergency departmentand admitted to the PCU because CT of the abdomen and pelvis showed transverse colon distention without evidence of obstruction or inflammation. He did have hyponatremia as well. Differential diagnosis includes but not limited to development of intra-abdominal abscess versus diverticulitis versus obstruction versus UTI. I will check his CMP for electrolyte imbalance or hyponatremia and hypokalemia which she had previously. In review of his problem list he has had ileus as well. He is on Coumadin so INR will be checked as he has history of supratherapeutic INR as well. UA will be checked to look for signs of infectionor cystitis. EKG was obtained and interpreted by myself independently as normal sinus rhythm at [address] changes. No STEMI. I reviewed his laboratory work and he has a normal white count of 7.6 with a hemoglobin stable at 11.8, platelet count 192. INR is therapeutic at 2.4. Review of his electrolyte panel shows hyponatremia of 120 and chloride 89. Potassium normal at 3.8. When compared to prior labs, he did have hyponatremia which had improved but it was not this low previously. Glucose 123. LFTs show AST slightly elevated at 46 but normal lipase of 40 and alk phos normal at 119. Total bili normal at 0.38. Urinalysis is negative for infection. No feel antibiotics are indicated. Also, I reviewed the radiology report of the CT of the abdomen and pelvis and while there is no reason for his lower abdominal pain there was reported, he does have a gallstone in the neck of the gallbladder. He is not having nausea or vomiting or right upper quadrant pain. I did obtain gallbladder ultrasound which does show solitary gallstone in the neck of the gallbladder on the radiology report. At this point in time, given his hyponatremia, I discussed the patient with Dr. Rashid for admission. Disposition is admit in stable condition. History & Record Review Discussion w/independent historian: Patient Additional record(s) reviewed:: Prior ED visit (Previous transverse colon dilation but no evidence of obstruction.) and Prior labs Lab Data Attestation: I reviewed the patient's lab results. Labs: Laboratory Results - last 24 hr 03/05/25 03/05/25 03/05/25 11:54 12:05 12:13 WBC 7.6 RBC 3.97 L Hgb 11.8 L Hct 33.7 L MCV 84.9 MCH 29.7 MCHC 35.0 RDW Std Deviation 42.6 RDW Coeff of Vaishnavi 13.7 Plt Count 192 MPV 9.2 Immature Gran % (Auto) 0.300 Neut % (Auto) 73.3 H Lymph % (Auto) 15.9 L Saline % (Auto) 7.0 Eos % (Auto) 3.2 Baso % (Auto) 0.3 Absolute Neuts (auto) 5.6 Absolute Lymphs (auto) 1.20 Nucleated RBC % 0 PT 26.4 H INR 2.4 Sodium 120 L Potassium 3.8 Chloride 89 L Carbon Dioxide 17.6 L Anion Gap 13 BUN 12 Creatinine 0.77 Estim Creat Clear Calc 121.52 Est GFR (MDRD) Non-Af 96 BUN/Creatinine Ratio 16.0 Glucose 123 H Calcium 8.1 Total Bilirubin 0.38 AST 46 H ALT 22 Alkaline Phosphatase 119 Total Protein 6.6 Albumin 3.8 Globulin 2.9 Albumin/Globulin Ratio 1.3 Lipase 40 Urine Color Straw Urine Clarity Clear Urine pH 7.0 Ur Specific [place] 1.005 Urine Protein Negative Urine Glucose (UA) Normal Urine Ketones Negative Urine Occult Blood Negative Urine Nitrite Negative Urine Bilirubin Negative Urine Urobilinogen Normal Ur Leukocyte Esterase Negative Urine RBC 0 SEEN Urine WBC 0 SEEN Ur Squamous Epith Cells 0 SEEN Urine Bacteria 0 SEEN Urine Mucus 0 SEEN Radiography Diagnostic Testing: Clinical Impression(s) from Imaging Studies Abdomen/Pelvis CT 03/05/25 11:51 IMPRESSION: Gallstone in the neck of the gallbladder. Venous collateral seen throughout the subcutaneous tissues as described. Increased markings in the peritoneal fat in the in the root of the mesentery. This is stable. Reading Location: [id number] Gallbladder Ultrasound 03/05/25 13:40 IMPRESSION: Solitary gallstone in the neck of the gallbladder. Hepatomegaly and fatty infiltration of the liver. Reading Location: [id number] Management Discussion w/another healthcare provider: Hospitalist (Dr. Rashid) Discharge Plan Dx/Rx/DC Orders Clinical Impression: Hyponatremia, Generalized weakness, Gallstone Disposition Disposition: Acute Care [facility] What to do if you have Problems For any increased pain, shortness of breath, bleeding, nausea or vomiting, chestpain, or any unexpected problems, contact your Primary Care Provider. Call [employer] ([phone]) or report to the closest Emergency Room. Call 911 if necessary. 03/05/25 1544 <Electronically signed by Rustam Warren MD> Cosigner Signature (if applicable): CC: Dr. Hari Oneill DO ~ Signed [facility] Work Phone: [phone] Radiology Diagnostic study note [facility] Imaging Services [address] [place], [place] [address] Abdomen/Pelvis W IV Cont ONLY MR#: [id number] Acct: [id number] Name: EDER BREEN Rep #: [id number] : 1955 M 69 From: Hair Moreno MD PCP: Dr. Hari Oneill DO Status: RE G ER Study:Abdomen/Pelvis W IV Cont ONLY Date of E xam: 03/05/25 Exam# [id number] Ordering Dr: Rustam Warren MD PROCEDURE: ABDOMEN/PELVIS W IV CONT ONLY 03/05/2025 REASON FOR EXAM: ABDOMINAL PAIN Lower abdominal pain and diarrhea. TECHNIQUE: ABDOMEN/PELVIS W IV CONT ONLY Coronal and Sagittal reconstruction series were provided. CONTRAST: Isovue 370 VOLUME: 100 mL One or more dose reduction techniques were used (e.g., Automated exposure control, adjustment of the mA and/or kV according to patient size, use of iterative reconstruction technique. RADIATION DOSE SUMMARY: CTDlvol: 17.02 mGy DLP: 1306.75 mGycm COMPARISON: Prior study dated February 27, 2025. FINDINGS: Lung bases: Lung bases are clear. Liver: Normal size. No mass. Gallbladder: There is a 1.6 cm gallstone in the neck of the gallbladder. Spleen: Normal size. Pancreas: Diffuse fatty atrophy. Adrenals: Unremarkable Kidneys: Stable bilateral parapelvic renal cysts. Bladder: Distended urinary bladder. Bowel: Moderate amount of fecal material is seen throughout the colon. Appendix: Nonvisualized. Lymph nodes: Small retroperitoneal lymph nodes. Vasculature: Mild diffuse atherosclerotic calcifications are noted. A filter isseen within the inferior vena cava. Peritoneum / Retroperitoneum: Increased markings are seen within the root of themesentery. This is a nonspecific finding and may represent early inflammatory changes. This is unchanged. Venous collaterals are seen within the subcutaneous tissues. Possible portal hypertension should beruled out. Bones: Degenerative changes of the spine. CT/Abdomen/Pelvis W IV Cont ONLY IMPRESSION: Gallstone in the neck of the gallbladder. Venous collateral seen throughout the subcutaneous tissues as described. Increased markings in the peritoneal fat in the in the root of the mesentery. This is stable. Reading Location: [id number] CC: Dr. Rustam Warren MD; Dr. Hari Oneill, DO ~ 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: Signed [facility]07-30-2025 Instructions* Patient Instructions* Beatriz Moncada MD - 03/04/2025 2:33 PM EDT - Continue your usual Coumadin regimen (7.5 mg daily except 5 mg on Tuesdays); no other medication changes were made. You need to come in for routine INR checks as recommended by your PCP. - Have blood drawn today to check your sodium, potassium, kidney function, INR, and to screen for diabetes. - Limit your total water intake to about 5-6 bottles of water per day, spaced throughout the day. - Aim for three balanced meals daily; include foods high in fiber to help bulk up your stools. - You may take a daily fiber supplement or probiotic, and you can use [id number] Imodium as needed to manage diarrhea. - If nausea or vomiting returns and you d like medication for it, please call our office. - A social media specialist will contact you to discuss food assistance or meal delivery programs to help with grocery access. - Call Dr. Singh s office to schedule your GI follow-up about two weeks after discharge. - Keep your appointment with Dr. Oneill on the of next month. [facility] History of Present illness Narrative* Beatriz Moncada MD - 03/04/2025 2:04 PM EDT Chief Complaint Patient presents with: Hospital F/U: [facility] 02/27-03/02/25. Went to ER initially for abd pain, nausea and diarrhea. Dx Hyponatremia and Hypokalemia. Urge Urinary Incontinence Recording using Image[employer] software for draft documentation of the visit was discussed with the patient/authorized rental representative; all questions welcomed and answered. Patient/authorized rental representative agreed to proceed HPI Eder Breen is a 69 year old male who presents here today for Above Complaints. Accompanied today by his . Hospital Discharge Follow-Up: - Hospitalized at [facility] from February 27 to . - Admitted for abdominal distention, diarrhea, abdominal pain, and nausea. - Found to have hyponatremia (Na 121) and hypokalemia (K 3.1). - CT abdomen/pelvis showed gaseous distention of the transverse colon without wall thickening or mesenteric adenitis; also noted IVC filter with possible thrombosis below the filter and numerous abdominal wall collaterals; large right-sided stool burden. 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 - Made NPO and started on IV fluids; small bowel follow-through showed no evidence of obstruction. - Stool cultures and C diff negative. - Gradually advanced to a clear liquid diet before discharge. - Hyponatremia resolved (Na 138) and hypokalemia improved (K 3.4) before discharge. - On Coumadin for history of DVT with IVC filter; INR was subtherapeutic during hospitalization. - Discharged home on 03/02 with instructions to follow up with PCP in 1-2 weeks and GI in 2 weeks; no new medications added. Abdominal Distention: - Barron reports abdominal distention is just about normal today. - Denies current abdominal pain. Diarrhea: - Persistent watery diarrhea, approximately 5-6 times per day. - Tried Kaopectate with no relief; not taking any other medications for diarrhea. - Denies hematochezia, melena, or mucus in stool. - Denies fevers or chills. - Stool testing in the hospital was negative for bacterial infection and C. diff. Nausea: - Occasional nausea, especially at night. - Feels deathly hungry at night, requiring food or water to alleviate nausea. - Denies current nausea or emesis. - Drinking large amounts of water at night to manage symptoms; reports drinking big glasses full of water. Dietary Concerns: - Barron reports difficulty maintaining adequate nutrition due to lack of groceries. - Expresses need for food to manage symptoms and prevent nausea. - States that he did not qualify for SNAP. Would like referral for social work. Past medical history, appointments, medications, allergies reviewed. 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 pylori infection 11/2013 Hemorrhoids History of DVT/PE 01/12/2013 - history of saddle PE in 2010 - IVC filter placed in 2011 possible in the setting of increased risk of falls while on coumadin - coumadin use complaicated by GI bleeding in the setting of supratherapeutic INR, warfarin stopped in 11/2012 - Repeat DVT involving common iliac/femoral and IVD distal tothe filter in 01/2013 while off coumadin, restarted on coumadin - Currently sub therapeutic on coumadin PLAN: -Increase coumadin to 7.5 mg daily - continue coumadin for life in the setting of PE Continue to bridge with lovenox as INR subtherapeutic. 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 sclerosis 07/2013 by echo WILBERTO (obstructive sleep apnea) Pulmonary embolism (HCC) hx of S/P insertion of IVC (inferior vena caval) filter thrombosed (S/P Lysis) Seizures (HCC) Snoring SUMMARY 01/12/2013 Mr Breen is a 58 y M with a medical history significant for: - Grade 3 Follicilar lymphoma, 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 Recent DVT in the common iliac, femoral and IVC distal to the IVD filter in 01/2013 while off coumadin. Currently on coumadin and no bleeding episodes/ falls Who is transferred from [facility] for the further evaluation of his dizziness which started about 3 -4 days ago and is now re Traumatic brain injury (HCC) There is a questionabale history of around age of 3 year he was dropped on the driveway may have lost consciousness Traumatic brain injury (HCC) There is a questionabale history of around age of 3 year he was dropped on the driveway may have lost consciousness Unspecified epilepsy without mention of intractable epilepsy (HCC) Vitamin B12 deficiency 11/2013 Vitamin D deficiency normal level 11/2011 Previous Surgical History PAST SURGICAL HISTORY Procedure Laterality Date APPENDECTOMY HX COLONOSCOPY 09/30/2024 COLONOSCOPY FLX DX W/COLLJ SPEC WHEN PFRMD 12/27/2009 Colonoscopy COLONOSCOPY FLX DX W/COLLJ SPEC WHEN PFRMD 05/03/2021 ESOPHAGOGASTRODUODENOSCOPY TRANSORAL DIAGNOSTIC 02/12/2012 EGD ESOPHAGOGASTRODUODENOSCOPY TRANSORAL DIAGNOSTIC 03/27/[address] [facility] inpt ESOPHAGOGASTRODUODENOSCOPY TRANSORAL DIAGNOSTIC 06/04/2012 EGD ESOPHAGOGASTRODUODENOSCOPY TRANSORAL DIAGNOSTIC N/A 11/13/2016 ESOPHAGOGASTRODUODENOSCOPY TRANSORAL DIAGNOSTIC 02/15/2018 EGD ESOPHAGOGASTRODUODENOSCOPY TRANSORAL DIAGNOSTIC 05/03/2021 INSJ TUNNELED CTR VAD W/SUBQ PORT AGE 5 YR/> 04/11/2012 INTRO. 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 right eye blind, injured during seizure Family History FAMILY HISTORY Problem Relation Age of Onset Stroke Mother Cancer Mother patient states he came from an infection due to a back injury Patient Allergies ALLERGIES Allergen Reactions Doxycycline GI Upset Lactose Intolerance* Diarrhea Current Medications Current Outpatient Medications on File Prior to Visit Medication Sig warfarin (COUMADIN) 5 mg tablet 5 mg Tues/Fri, 7.5 mg all other days or as directed warfarin (COUMADIN) 7.5 mg tablet 5 mg Tues/Fri, 7.5 mg all other days or as directed tamsulosin (FLOMAX) 0.4 mg Take 1 capsule by mouth daily at bedtime. levothyroxine (LEVOXYL) 88 mcg tablet Take 1 tablet by mouth daily before breakfast. Take on empty stomach 30 minutes before eating. For Thyroid furosemide (LASIX) 40 mg tablet Take 1 tablet by mouth once daily. Take in the morning lacosamide (VIMPAT) 200 mg Take 1 tablet by mouth daily with lunch AND 1 tablet every evening. Do all this for 180 days. meloxicam (MOBIC) 15 mg tablet Take 1 tablet by mouth once daily. With food. lansoprazole (PREVACID) 30 mg capsule Take 1 capsule by mouth once daily. furosemide (LASIX) 20 mg tablet Take 1 tablet by mouth daily after lunch. triamcinolone acetonide (KENALOG) 0.1 % cream Apply to affected area daily at bedtime. On legs for stasis dermatitis L.acidophilus-L.rhamnosus (PROBIOTIC) 15 billion cell capsule Take 1 capsule by mouth daily at bedtime. Non-Adherent Bandage (CURITY ABDOMINAL PAD) 5 X 9 bndg Apply 1 application to affected area once daily. Gauze Bandage (KERLIX) 4 1/2 X 147 bndg Apply 1 application to affected area once daily. zonisamide (ZONEGRAN) 100 mg capsule Take 4 capsules by mouth daily after lunch AND 2 capsules daily at bedtime. levETIRAcetam (KEPPRA) 750 mg tablet Take 2 tablets by mouth two times a day. lamoTRIgine (LAMICTAL) 200 mg tablet Take 1 tablet by mouth daily with lunch AND 1 tablet every evening. potassium chloride (K-TAB) 10 mEq tablet Take 1 tablet by mouth daily with breakfast. ferrous sulfate 325 mg (65 mg iron) tablet Take 1 tablet by mouth once daily. (Patient not taking: Reported on 02/09/2025) white petrolatum (AQUAPHOR ORIGINAL) 41 % topical ointment Apply to affected area two times a day. FLUoxetine (PROZAC) 40 mg capsule Take 1 capsule by mouth once daily. in the morning for mood diclofenac (VOLTAREN ARTHRITIS PAIN) 1 % topical gel Apply 2 g to affected area four times daily. (Patient not taking: Reported on 03/04/2025) cyanocobalamin, vitamin B-12, (VITAMIN B-12 ORAL) Take 1 tablet by mouth once daily. (Patient not taking: Reported on 02/09/2025) No current facility-administered medications on file prior to visit. Social History Social History Tobacco Use Smoking status: Never Smokeless tobacco: Never Vaping Use Vaping status: Never Used Substance Use Topics Alcohol use: Not Currently Drug use: Never Review of Symptoms REVIEW OF SYSTEMS See HPI EXAM: BP 118/66 Pulse 75 Ht 182.9 cm (6') Wt 126.6 kg (279 lb) SpO2 99% BMI 37.84 kg/m General Appearance: Well appearing, alert, in no acute distress, well-hydrated, well nourished.. Skin: Skin color, texture, turgor normal, no suspicious rashes or lesions. Lungs: Lungs clear to auscultation. No wheezing, rhonchi, rales.. Heart: RRR without murmur, gallop, or rubs. No ectopy. Abdomen: Normal abdominal exam, Abdomen soft, non-tender. Bowel sounds normal. No masses, organomegaly. Extremities: No deformities, edema, skin discoloration, clubbing or cyanosis. Good capillary refill. . 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 Abdominal distention (R14.0) 3. Nausea (R11.0) 4. Diarrhea, unspecified type (R19.7) - Recent hospitalization (02/27-03/02) for abdominal distention, pain, nausea, and diarrhea; CT showed gaseous distention of the transverse colon without obstruction; GI and general surgery consulted; small bowel follow-through negative for obstruction. - Symptoms improving post-discharge; no current abdominal pain or nausea, but ongoing watery diarrhea (5-6 times/day). - Advised limiting water intake to 5-6 glasses per day to prevent recurrence of hyponatremia and potentially reduce diarrhea. - Recommended dietary fiber and/or probiotic supplementation; Imodium suggested for diarrhea management. - Follow-up with GI (Dr. Singh) in 2 weeks; instructed patient to schedule appointment. 5. Hyponatremia (E87.1) 6. Hypokalemia (E87.6) - Hyponatremia (Na 121) and hypokalemia (K 3.1) during hospitalization; both improved prior to discharge (Na 138, K 3.4). - Ordered repeat labs to monitor sodium, potassium, and kidney function. 7. Presence of IVC filter (Z95.828) 8. Thrombosis (I82.90) - CT showed possible thrombosis below IVC filter with numerous abdominal wall collaterals. - On Coumadin; last INR check in October. - Ordered repeat INR; instructed patient on importance of monthly INR monitoring. - Will notify vascular specialist (Dr. Novoa) of recent findings. 9. Polyuria (R35.89) 10. Polydipsia (R63.1) 11. Polyphagia (R63.2) - New symptoms of increased thirst, hunger, and urination since discharge. - Ordered labs to screen for diabetes. 12. Food insecurity (Z59.41) - Patient reports difficulty obtaining food due to inability to drive and lack of resources. - Referral to social media specialist for assistance with food resources. I spent a total of 40 minutes on the date of the service which included preparing to see the patient, [id number] patient care, completing clinical documentation, obtaining and/or reviewing separately obtained history, performing a medically appropriate examination, counseling and educating the pat ient/family/caregiver, ordering medications, tests, or procedures, independently interpreting results (not separately reported), communicating results to the patient/family/caregiver, and care coordination (not separately reported). Beatriz Moncada MD [facility] Discharge summary [facility] Medical Records Department [address] [place] [address] Instructions for Home/Discharge Instructions 03/02/25 1328 MR#: [id number] Acct: [id number] Name: EDER BREEN Rep #:[id number] : 1955 69 From: Danae Stanton MD PCP: Dr. Hari Oneill DO Status:AD M IN Discharge Instructions DC O2, CPAP, BIPAP needs Home O2 Discharge instructions: No Dressing / Incision Discharge Activity: Return to Normal Activity Weight Bearing Status: Weight bearing as tolerated Dressing / Incision Call your doctor if you observe: Fever of 101 or Higher, Shortness of breath, Dizziness, Swelling in the ankles and Chest pain Follow Up Care Test Results: Test results from this visit will be discussed in further detail at your follow- up appointment, if applicable. Discharge Plan Admission Admit Date/Time: 02/27/25 14:27 Primary Reason for Your Visit: abdominal distension Attending Provider: Danae Stanton Primary Care Provider: Hari Oneill Consulting Providers: Lisa Mike; Yoon Kim Instructions Patient Instructions: Abdominal Pain Discharge Orders/Prescriptions Prescriptions: Continued warfarin 7.5 mg tablet 7.5 mg PO DAILY lamotrigine [Lamictal] 200 MG tablet 200 mg PO BID zonisamide 100 MG capsule 100 mg PO BID Patient Comments: 2 tabs at lunch and 2 tabs at hs lacosamide 200 mg tablet 200 mg PO BID levothyroxine 88 mcg tablet 88 mcg PO DAILY levetiracetam 750 mg tablet 1,500 mg PO BID furosemide 40 mg tablet 20 mg PO DAILY ibuprofen 600 mg tablet 600 mg PO Q6H PRN (Reason: fever or pain) Qty: 20 0RF tamsulosin 0.4 mg capsule 0.4 mg PO QHS potassium chloride 20 mEq/15 mL liquid 10 meq PO DAILY Referrals / Follow Up: Hari Oneill DO [Primary Care Provider] - Within 1 Week Disposition Disposition (needs filled in before D/C Order can be placed): Home, Self Care 03/02/25 1328Danae Stanton MD CC: Dr. Hari Oneill DO; Dr. Lisa Mike MD; Dr. Yoon Kim MD ~ Signed [facility]07-28-2025 Hospital Discharge instructionsAdditional Instructions [facility]: [facility]: 1(997) 186-681207-28-2025 Discharge summary [facility] Medical Records Department [address] [place] [address] Discharge Summary 03/02/25 1329 MR#: [id number] Acct: [id number] Name: EDER BREEN Rep #:[id number] : 1955 69 From: Danae Stanton MD PCP: Dr. Hari Oneill DO Status:AD IN Location: [place] [address] Providers Date of Admission: 02/27/25 Date of Discharge: 03/02/25 Primary Care Physician: Dr. Hari Oneill DO Consultations 02/27/25 16:00 Consult: Gastroenterology Routine Consulting Provider: [facility] Reason for Consult: abd discomfort, diarrhea, gaseous distention of colon, ?mesenteric adenitis EMERGENT Consult: No Notified: Yes Date Notified: 02/27/25 Time Notified: 16:28 Method of Notification: Text 02/28/25 17:18 Consult: General Surgery Routine Consulting Provider: Yoon Kim Reason for Consult: Distended stomach, hypoactive BS, CT EMERGENT Consult: No Notified: Yes Date Notified: 02/28/25 Time Notified: 17:19 Method of Notification: Verbal Reason For Visit: HYPONATREMIA, ABDOMINAL PAIN Diagnosis Discharge Diagnosis (1) Abdominal distension: Status: Acute Code(s): R14.0 - Abdominal distension (gaseous) Plan #Abdominal distention in the setting of abdominal pain, nausea and diarrhea * Nausea and diarrhea have resolved. However he still has significantly distended abdomen. * CT of the abdomen and pelvis with gaseous distention of transverse colon without wall thickening and possible mesenteric adenitis as well as IVC filter with possible thrombosis below the filter with numerous abdominal wall collaterals. There was also a large right-sided stool burden * CT of the abdomen from 2023 also showed the distended colon. 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 Patient also liquid diet but we will hold in light of the abdominal distention. Continue gentle hydration with IV fluids. * General surgery consulted yesterday, he had a small bowel follow through which showed no evidenceof obstruction. * will start on clear liquid diet and advance slowly as tolerated. * #Hyponatremia: resolved. #Hypokalemia: Potassium is 3.1. Will replace and trend. #History of seizure disorder: On lacosamide and zonisamide as well as Lamictal and Keppra. 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 On Coumadin. INR is therapeutic today. CT scan showed IVCfilter with possible thrombosis below the filter withnumerous abdominal wall collaterals indicatingthat this likely chronic. #Hypothyroidism: On Synthroid #GERD: On PPI #DVT prophylaxis: On Coumadin and INR therapeutic. Medications at Discharge Home Medications lamotrigine 200 mg tablet (Lamictal) 200 mg PO BID SEIZURES 03/12/14 lacosamide 200 mg tablet 200 mg PO BID SEIZURES 09/17/19 zonisamide 100 mg capsule 100 mg PO BID SEIZURES 09/17/19 warfarin 7.5 mg tablet 7.5 mg PO DAILY BLOOD THINNER 09/12/21 levetiracetam 750 mg tablet 1,500 mg PO BID SEIZURES 03/11/24 levothyroxine 88 mcg tablet 88 mcg PO DAILY THYROID 03/11/24 furosemide 40 mg tablet 20 mg PO DAILY water pill 03/19/24 ibuprofen 600 mg tablet 600 mg PO Q6H PRN fever or pain #20 tabs 03/21/24 potassium chloride 20 mEq/15 mL oral liquid 10 meq PO DAILY supplement 02/27/25 tamsulosin 0.4 mg capsule 0.4 mg PO QHS prostate 02/27/25 Hospital Course Operations None Procedures None Summary of Care Provided Minutes Spent on Discharge: 45 Hospital Course: Patient is a 69-year-old male with an extensive past medical history as outlinedwas admitted to the on 02/27/2025 with complaint of abdominal pain and nausea and diarrhea. He said he had been drinking a lot of water and says you have a lot getting going on like that. CT of the abdomen and pelvis that showed gaseous distention of the transverse colon without wall thickening and possible mesenteric adenitis as well as IVC filter with possible thrombosis below the filter with numerous abdominal wall collaterals. Labs were significant for sodium of 121. Potassium was also 3. He was admitted andmanaged for abdominalpain, nausea and diarrhea as well as hyponatremia. He was hydrated with IV fluids initially kept NPO. Gastroenterology was consulted due to right-sided stool burden. CT scan. Potassium was replaced. Gastroenterology reviewed patient and was concerned about possible Kimberly syndrome. However, abdominal pain resolved and he was able to tolerate a diet. He remained stable and was discharged home on 03/02/2025. He is to follow up with his PCP within 1-2 weeks. Patient seen and examined prior to discharge. He had no acitve complaints. Review of systems is otherwise negative. Labs and vitals reviewed. Home meds reviewed and reconciled. He is to follow with gastroenterology on outpatient basis. Physical Exam Const alert, oriented x3 and no apparent distress Constitutional Narrative: Class III obesity General Appearance: cooperative and comfortable HEENT normocephalic, head/scalp atraumatic, hearing grossly normal bilaterally, moist oral mucous membranes and oropharynx normal Mouth: oral and palatal mucosa normal Eyes PERRL and EOMs intact bilaterally Neck supple and no JVD Lymph Lymphatic: no lymphedema noted Resp normal respiratory effort, normal air movement and clear to auscultation bilaterally Cardio regular rate, regular rhythm, S1 normal heart sound, S2 normal heart sound and no murmurs GI GI Narrative: abdomen moderately distended but not tender, tympanitic to percussion, no guarding or rebound tenderness. Says thats how his abdomen is. Extremity normal capillary refill and no clubbing, cyanosis or edema General Extremity: no tenderness to palpation of joints or extremities Skin General Skin Exam: no breakdown Neuro oriented x3, CN's II-XII intact bilaterally, moves all extremities and no focal motor deficits Sensorium / Orientation: awake Motor Exam: strength 5/5 throughout Psych thought process normal, cooperative and affect normal Appearance: appropriate Weight / BMI Weight Weight: 287 lb 4.197 oz Body Mass Index (BMI) 38.9 ABG / Lab / Microbiology Data 03/02/25 05:12 03/02/25 05:12 Laboratory: Laboratory Results - last 24 hr 03/02/25 05:12: WBC 6.4, RBC 3.89 L, Hgb 11.6 L, Hct 34.7 L, MCV 89.2, MCH 29.8,MCHC 33.4, RDW Std Deviation 47.9 H, RDW Coeff of Vaishnavi 14.7 H, Plt Count 192, MPV8.7, Immature Gran % (Auto) 0.300, Neut% (Auto) 64.6, Lymph % (Auto) 22.2, Saline% (Auto) 8.5, Eos % (Auto) 3.9, Baso % (Auto) 0.5, AbsoluteNeuts (auto) 4.2, Absolute Lymphs (auto) 1.43, Nucleated RBC % 0, PT 34.4 H, INR 3.3, Sodium 138, Potassium 3.4, Chloride 107, Carbon Dioxide 20.9 L, Anion Gap 11, BUN 6, Creatinine 0.81, Estim CreatClear Calc 116.75, Est GFR (MDRD) Non-Af 94, BUN/Creatinine Ratio 7.0 L, Glucose 104 H, Calcium 8.8 Microbiology: Microbiology 02/27/25 20:20 Stool Enteric Bacteriology - Final 02/27/25 20:20 Stool Clostridioides difficile (PCR) - Final D/C Instructions Discharge Activity: Return to Normal Activity Weight Bearing Status: Weight bearing as tolerated Call your doctor if you observe: Fever of 101 or Higher, Shortness of breath, Dizziness, Swelling in the ankles and Chest pain DC O2, CPAP, BIPAP Needs Home O2 Discharge instructions: No DC home with Oxygen: No Meaningful Use Info Meaningful Use Meaningful Use Diagnoses (Choose all that apply): None applicable Discharge Plan Admission Admit Date/Time: 02/27/25 14:27 Primary Reason for Your Visit: abdominal distension Attending Provider: Danae Stanton Primary Care Provider: Hari Oneill Consulting Providers: Lisa Mike; Yoon Kim Instructions Patient Instructions: Abdominal Pain Discharge Orders/Prescriptions Prescriptions: Continued warfarin 7.5 mg tablet 7.5 mg PO DAILY lamotrigine [Lamictal] 200 MG tablet 200 mg PO BID zonisamide 100 MG capsule 100 mg PO BID Patient Comments: 2 tabs at lunch and 2 tabs at hs lacosamide 200 mg tablet 200 mg PO BID levothyroxine 88 mcg tablet 88 mcg PO DAILY levetiracetam 750 mg tablet 1,500 mg PO BID furosemide 40 mg tablet 20 mg PO DAILY ibuprofen 600 mg tablet 600 mg PO Q6H PRN (Reason: fever or pain) Qty: 20 0RF tamsulosin 0.4 mg capsule 0.4 mg PO QHS potassium chloride 20 mEq/15 mL liquid 10 meq PO DAILY Referrals / Follow Up: Hari Oneill DO [Primary Care Provider] - 03/04/25 1:40 am (Appointment is with Dr. Reddy in [place]. Needs to arrive by 1:25 PM for 1:40 PMappointment) FriendLuis A DO [Med Staff - Active Staff] - Within 2 Weeks Disposition Disposition (needs filled in before D/C Order can be placed): Home, Self Care Charges/Coding Visit Charges Inpatient E&M: 04863 Disch Hosp >30min 03/02/25 1350 Cosigner Signature (if applicable): CC: Dr. Hari Oneill DO; Dr. Danae Stanton MD~ Signed [facility]07-28-20[facility] Progress note Author Dinah Gibson [facility] Note Date/Time March 02, 2025 8:44 am [facility] Medical Records Department [address] [place] [address] Progress Note - Surgery 03/02/25 0832 MR#: [id number] Acct: [id number] Name: EDER BREEN Rep #:[id number] : 1955 69 From: Dinah CISNEROS PA-C PCP: Dr. Hari Oneill DO Status:AD M IN Location: [place] [address]- Subjective Subjective Patient is evaluated resting comfortably in bed. He denies any nausea, vomiting or abdominal pain. He is tolerating clear liquids well. Patient voices his abdomen has returned to his normal. Positive diarrhea. Negative C Diff. Objective Data Objective Data Vital Signs: Vital Signs Temp Pulse Resp BP Pulse Ox O2 Del Method 97.2 F L 79 18 152/69 H 98 Room Air 03/02/25 03:36 03/02/25 03:36 03/02/25 03:36 03/02/25 03:36 03/02/25 03:36 03/02/25 03:36 Oxygen Delivery Method Room Air Weight: 287 lb 4.197 oz Body Mass Index (BMI) 38.9 Intake & Output: Intake and Output for Last 24 Hours 02/28/25 03/01/25 03/02/25 23:59 23:59 23:59 Intake Total 2567.08 / 2567.08 2147.50 / 2147.50 360 / 360 Output Total 3300 / 3300 1250 / 1950 1350 / 1350 Balance -732.92 / -732.92 897.50 / 197.50 -990 / -990 Lab / Micro Data 03/02/25 05:12 03/02/25 05:12 Labs: Laboratory Results - last 24 hr 03/02/25 05:12: WBC 6.4, RBC 3.89 L, Hgb 11.6 L, Hct 34.7 L, MCV 89.2, MCH 29.8,MCHC 33.4, RDW Std Deviation 47.9 H, RDW Coeff of Vaishnavi 14.7 H, Plt Count 192, MPV8.7, Immature Gran % (Auto) 0.300, Neut % (Auto) 64.6, Lymph % (Auto) 22.2, Saline% (Auto) 8.5, Eos % (Auto) 3.9, Baso % (Auto) 0.5, Absolute Neuts (auto) 4.2, Absolute Lymphs (auto) 1.43, Nucleated RBC % 0, PT 34.4 H, INR 3.3, Sodium 138, Potassium 3.4, Chloride 107, Carbon Dioxide 20.9 L, Anion Gap 11, BUN 6, Creatinine 0.81, Estim Creat Clear Calc 116.75, Est GFR (MDRD) Non-Af 94, BUN/Creatinine Ratio 7.0 L, Glucose 104 H, Calcium 8.8 Micro: Microbiology 02/27/25 20:20 Stool Enteric Bacteriology - Final 02/27/25 20:20 Stool Clostridioides difficile (PCR) - Final Physical Exam GI GI Narrative: Abdomen- soft, distended/obtunded. Nontender to palpation. Hypoactive bowel sounds Assessment & Plan Assessment/Plan (1) Abdominal distension: PLAN: Plan I am following this patient in conjunction with Dr. Kim. She will independently evaluate this patient. Labs reviewed Increase to regular diet No surgical intervention planned at this time If tolerate regular diet, patient may be discharged from surgical standpoint We will sign off at this time. Please reach out if we can be of assistance Charges/Coding Visit Charges Inpatient E&M: 69934 Subs Hosp L2 03/02/25 0844 <Electronically signed by Dinah CISNEROS PA-C> Cosigner Signature (if applicable): CC: ~ Signed [facility] Work Phone: 1(448) 901-984407-28-2025 Consult note Author Luis A Singh [facility] Note Date/Time March 02, 2025 8:20 am [facility] Medical Records Department [address] [place] [address] Consultation - GI 02/27/25 1848 MR#: [id number] Acct: [id number] Name: EDER BREEN Rep #:[id number] : 1955 69 From: Luis A Singh DO PCP: Dr. Hari Oneill, DO Status:AD IN Location: [place] [address] HPI Consult Data Date of Consult: 02/27/25 HPI Narrative Reason for Consultation: Abdominal pain and colonic distention HPI Narrative: EDER BREEN, is a 69 y/o presented to the ED with worsening abdominal pain. He has a past medical history of obesity, WILBERTO, history of PE on Coumadin statuspost IVC filter, seizure disorder, anxiety and depression. He also has a history of large B-cell lymphoma and malignant melanoma. He complains of history of lower cramping abdominal pain rating the pain from 4- 6 out of 10 in severity but waxing and waning with at least 6-8 bouts of diarrhea throughout the day with associated occasional nausea and emesis able totolerate some fluids but difficulty with food, notes abdominal discomfort worse with attempted oral intake with associated lightheadedness and dizziness prompting CC UC evaluation with referral to the ED. CBC with WBC 7.3, hemoglobin 11, platelet 204 without market left shift, CMP with a sodium of 122, glucose 117 otherwise normal, lipase 328, urinalysis with specific gravity 1.015, 10 occult blood, negative nitrite, negative leukocyte esterase, no urine CT abdomen pelvis with noted distention of the right colon and transverse colon to splenic fracture primarily with air and some fecal material, suspicious for colonic ileus, cholelithiasis evident as well as collapse of the IVC below the level of the IVC filter. No pneumatosis or site of obstruction was seen. 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 No lymphadenopathy. This can be seen with mesenteric adenitis. CT scan back in 2013 of abdomen pelvis displayed- There is borderline retroperitoneal lymphadenopathy with enlarged nodes no greater than 10mm in the short axis diameter. 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 He had a similar presentation back in 2019. He was diagnosed with viral gastroenteritis at that time. [facility] Medical History Seizures Loss of one eye Wears glasses Cancer Thyroid disease Arthritis Prostate disease Bladder disease Low iron High cholesterol Diarrhea Gastric reflux Non-smoker History of pain when walking Heart murmur Localized swelling of both lower legs Abnormal biliary HIDA scan Anxiety and depression HTN (hypertension) History of DVT of lower extremity Seizure disorder Home Medications ?Medication ?Instructions ?Recorded ?Last Taken ?Type lamotrigine 200 mg tablet 200 mg PO BID SEIZURES 03/1203/21/24 History (Lamictal) lacosamide 200 mg tablet 200 mg PO BID SEIZURES 09/1703/10/24 History zonisamide 100 mg capsule 100 mg PO BID SEIZURES 09/1703/20/24 History warfarin 7.5 mg tablet 7.5 mg PO DAILY BLOOD THINNE R 09/12/21 03/16/24 History levetiracetam 750 mg tablet 1,500 mg PO BID SEIZURES 0 03/11/24 03/21/24 History levothyroxine 88 mcg tablet 88 mcg PO DAILY THYROID 03/21/24 History furosemide 40 mg tablet 20 mg PO DAILY water pill Unknown History ibuprofen 600 mg tablet 600 mg PO Q6H PRN fever or p ain 03/21/24 Unknown Rx #20 tabs potassium chloride 20 mEq/15 mL 10 meq PO DAILY supple ment 02/27/25 Unknown History oral liquid tamsulosin 0.4 mg capsule 0.4 mg PO QHS prostate 02/27 Unknown History Allergy/AdvReac Type Severity Reaction Status Date / Time No Known Allergies Allergy Verified 02/27/25 09:55 Surgical History Hx of colonoscopy History of vascular access device Hx of vascular surgery Hx of left cataract extraction Social History household members: spouse Smoking Status: Never smoker ROS Constitutional Constitutional: Denies fatigue, fever(s), poor appetite, weight gain or weight loss Gastrointestinal Gastrointestinal: Denies belching, bloating, change in bowel habits, change in stool character, chewing difficulty, coffee ground emesis, constipation, cramping, diarrhea, dyspepsia, dysphagia, early satiety, excessive flatus, fecalincontinence, heartburn, hematemesis, hematochezia, hemorrhoids, loose stools, melena, nausea, odynophagia, rectal bleeding, tenesmus, vomiting or weight changes Physical Exam Narrative General: Alert, oriented, no apparent distress HEENT: Atraumatic, normocephalic Eyes: Keeps right eye closed, left eye no acute abnormalities appreciated Neck: Supple Respiratory: No significant wheezes or rhonchi, normal respiratory effort Cardiovascular: Regular rate and rhythm GI: Distended, did not seem to be having pain on palpation and no rebound, guarding, rigidity Extremities: 1+ lower extremity edema with chronic changes Musculoskeletal: Moving all extremities Neuro: No overt focal neurological deficits Skin: Chronic lower extremity changes Psych: Cooperative Lab / Micro Data 02/27/25 10:15 02/27/25 16:33 Labs: Laboratory Results - last 24 hr 02/27/25 10:15: WBC 8.3, RBC 3.77 L, Hgb 11.0 L, Hct 32.5 L, MCV 86.2, MCH 29.2,MCHC 33.8, RDW Std Deviation 43.1, RDW Coeff of Vaishnavi 13.8, Plt Count 193, MPV 8.9, Immature Gran % (Auto) 0.600, Neut % (Auto) 71.4 H, Lymph % (Auto) 16.7 L, Saline % (Auto) 9.2, Eos % (Auto) 1.9, Baso % (Auto) 0.2, Absolute Neuts (auto) 5.9, Absolute Lymphs (auto) 1.39, Nucleated RBC % 0, PT 27.7 H, INR 2.5, Sodium 121 L, Potassium 3.0 L, Chloride 89 L, Carbon Dioxide 19.7 L, Anion Gap 12, BUN 15, Creatinine 0.81, Estim Creat Clear Calc 118.12, Est GFR (MDRD) Non-Af 94, BUN/Creatinine Ratio 18.2, Glucose 100 H, Lactic Acid 1.4, Calcium 8.0, Total Bilirubin 0.38, AST 29, ALT 24, Alkaline Phosphatase 113, Total Protein 6.1, Albumin 3.8, Globulin 2.3, Albumin/Globulin Ratio 1.6, b-Hydroxybutyric mmol/L 0.1 02/27/25 11:09: Urine Color Yellow, Urine Clarity Clear, Urine pH 7.0, Ur Specific [place] 1.010, Urine Protein 15 H, Urine Glucose (UA) Normal, Urine Ketones Negative, Urine Occult Blood Negative, Urine Nitrite Negative, Urine Bilirubin Negative, Urine Urobilinogen Normal, Ur Leukocyte Esterase Negative, Urine RBC 0 SEEN, Urine WBC 0 SEEN, Ur Squamous Epith Cells 0 SEEN, Urine Bacteria 0 SEEN, Urine Mucus 0 SEEN 02/27/25 16:33: Sodium 122 L, Potassium 3.1 L, Chloride 91 L, Carbon Dioxide 20.2 L, Anion Gap 11, BUN 11, Creatinine 0.75, Estim Creat Clear Calc 122.07, Est GFR (MDRD) Non-Af 96, BUN/Creatinine Ratio 14.1, Glucose 134 H, Serum Osmolality 255 L, Calcium 8.1 02/27/25 17:01: Urine Osmolality 303, Ur Random Sodium 51, Urine Potassium 9.3, Urine Chloride 39, Urine Urea Nitrogen 285 ABG Data ABG results: ABG 02/27/25 11:34 Specimen Type SAIGE Sample Site Not entered VBG pH 7.38 VBG pO2 55 H VBG HCO3 21 L VBG Total CO2 22 L VBG O2 Sat (Calc) 88 H VBG Base Excess -5 L POC Mix VBG pCO2 Pt Tmp 34.8 L O2 Delivery Device Not entered Imaging Radiology Impression Abdomen/Pelvis CT 02/27/25 13:15 IMPRESSION: 1. Gallstone 2. Gaseous distention of the transverse colon without wall thickening, pneumatosis or site of obstruction. No change. 3. 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 No lymphadenopathy. This can be seen with mesenteric adenitis. 4. IVC filter in place. Possible thrombosis of the IVC below the filter with numerous abdominal wall collaterals. Reading Location: [id number] Assessment & Plan Assessment/Plan (1) Abdominal pain, acute, left lower quadrant: (2) Colon distention: (3) Abdominal pain: (4) Hyponatremia: PLAN: 69-year-old male presenting with a history of recurrent episodes of abdominal pain, distension, and changes in bowel habits. These episodes have been accompanied by hyponatremia. He reports the current episode started 3 days ago with generalized abdominal pain, bloating, and decreased appetite. He deniesfever or vomiting. He states he has had similar episodes in the past, often resolving with supportive care * Abdomen:?Distended, generalized tenderness on palpation, no rebound or guarding. Bowel sounds are diminished. No masses appreciated. * Labs: * Serum Sodium: 122 * Other electrolytes: Within normal limits * CBC: Hemoglobin 11 white count within normal limits * CRP/ESR: [Pending * Imaging:? CT scan displays colonic dilation without mechanical obstruction but does show mesenteric lymphadenopathy Assessment 69-year-old male with recurrent colonic dilation, hyponatremia, and abdominal pain concerning for mesenteric adenitis. The patient's age and recurrence of symptoms suggest a potentially underlying systemic condition or inflammatory process.? Differential Diagnoses: * Acute Colonic Pseudo-obstruction (Ewelina Syndrome):?A leading possibility given his presentation, especially in the context of elderly patients with comorbidities or recent illness. * Chronic Intestinal Pseudo-obstruction:?This is a possibility due to the recurrent nature of his symptoms. * Inflammatory Bowel Disease (IBD):?Although mesenteric adenitis can occur secondary to IBD, it is more commonly seen in pediatric patients and would typically be diagnosed with more specific IBD symptoms like chronic diarrhea and rectal bleeding. * Lymphoma:?This serious condition can also cause mesenteric lymph node enlargement and intestinal obstruction, and needs to be ruled out. * Hypothyroidism:?Can lead to chronic constipation and colonic dilation.? Regarding Hyponatremia: * It is crucial to determine the chronicity of hyponatremia. If the duration is unknown, it should be treated as chronic. * The hyponatremia could be a contributing factor to the colonic dilation as electrolyte imbalances can affect gut motility. * Volume status assessment (hypovolemic, euvolemic, or hypervolemic) . Consider nephrology consultation. Plan * Bowel rest and nasogastric decompression * Intravenous fluids:?0.9% saline infusion * Careful monitoring of sodium levels?due to the risks associated with over- rapid correction of hyponatremia. * Medication Review:?Discontinue any medications that may contribute to hyponatremia, particularly diuretics. * Serial imaging:?Abdominal X-rays and CT scan as noted in the objective, plus ultrasound if needed. * Consider endoscopy or surgery?if mechanical obstruction is suspected or conservative management fails. * He would likely need to undergo colonoscopy with biopsies * Consider Infectious Disease to help to determine the cause of mesenteric adenitis if we do not suspect this is from lymphoma. Charges/Coding Visit Charges Inpatient E&M: 43649 Init Hosp L3 03/02/25 0820 <Electronically signed by Luis A Friend > Cosigner Signature (if applicable): CC: Dr. Hari Oneill DO~ Signed [facility] Work Phone: [phone] 282-795507-28-2025 Progress note [facility] Medical Records Department [address] [place] [address] Progress Note - Surgery 03/02/25 0832 MR#: [id number] Acct: [id number] Name: EDER BREEN Rep #:[id number] : 1955 69 From: Dinah CISNEROS PA-C PCP: Dr. Hari Oneill DO Status:AD M IN Location: [place] [address] Subjective Subjective Patient is evaluated resting comfortably in bed. He denies any nausea, vomiting or abdominal pain. He is tolerating clear liquids well. Patient voices his abdomen has returned to his normal. Positivediarrhea. Negative C Diff. Objective Data Objective Data Vital Signs: Vital Signs Temp Pulse Resp BP Pulse Ox O2 Del Method 97.2 F L 79 18 152/69 H 98 Room Air 03/02/25 03:36 03/02/25 03:36 03/02/25 03:36 03/02/25 03:36 03/02/25 03:36 03/02/25 03:36 Oxygen Delivery Method Room Air Weight: 287 lb 4.197 oz Body Mass Index (BMI) 38.9 Intake & Output: Intake and Output for Last 24 Hours 02/28/25 03/01/25 03/02/25 23:59 23:59 23:59 Intake Total 2567.08 / 2567.08 2147.50 / 2147.50 360 / 360 Output Total 3300 / 3300 1250 / 1950 1350 / 1350 Balance -732.92 / -732.92 897.50 / 197.50 -990 / -990 Lab / Micro Data 03/02/25 05:12 03/02/25 05:12 Labs: Laboratory Results - last 24 hr 03/02/25 05:12: WBC 6.4, RBC 3.89 L, Hgb 11.6 L, Hct 34.7 L, MCV 89.2, MCH 29.8,MCHC 33.4, RDW Std Deviation 47.9 H, RDW Coeff of Vaishnavi 14.7 H, Plt Count 192, MPV8.7, Immature Gran % (Auto) 0.300, Neut% (Auto) 64.6, Lymph % (Auto) 22.2, Saline% (Auto) 8.5, Eos % (Auto) 3.9, Baso % (Auto) 0.5, AbsoluteNeuts (auto) 4.2, Absolute Lymphs (auto) 1.43, Nucleated RBC % 0, PT 34.4 H, INR 3.3, Sodium 138, Potassium 3.4, Chloride 107, Carbon Dioxide 20.9 L, Anion Gap 11, BUN 6, Creatinine 0.81, Estim CreatClear Calc 116.75, Est GFR (MDRD) Non-Af 94, BUN/Creatinine Ratio 7.0 L, Glucose 104 H, Calcium 8.8 Micro: Microbiology 02/27/25 20:20 Stool Enteric Bacteriology - Final 02/27/25 20:20 Stool Clostridioides difficile (PCR) - Final Physical Exam GI GI Narrative: Abdomen- soft, distended/obtunded. Nontender to palpation. Hypoactive bowel sounds Assessment & Plan Assessment/Plan (1) Abdominal distension: PLAN: Plan I am following this patient in conjunction with Dr. Kim. She will independently evaluate this patient. Labs reviewed Increase to regular diet No surgical intervention planned at this time If tolerate regular diet, patient may be discharged from surgical standpoint We will sign off at this time. Please reach out if we can be of assistance Charges/Coding Visit Charges Inpatient E&M: 98779 Subs Hosp L2 03/02/25 8954 Cosigner Signature (if applicable): CC: ~ Signed [facility]07-28-2025 Consult note [facility] Medical Records Department [address] [place] [address] Consultation - GI 02/27/25 1848 MR#: [id number] Acct: [id number] Name: EDER BREEN Rep #:[id number] : 1955 69 From: Luis A Friend DO PCP: Dr. Hari Oneill, DO Status:AD M IN Location: [facility] [id number] HPI Consult Data Date of Consult: 02/27/25 HPI Narrative Reason for Consultation: Abdominal pain and colonic distention HPI Narrative: EDER BREEN, is a 69 y/o presented to the ED with worsening abdominal pain. He has a past medical history of obesity, WILBERTO, history of PE on Coumadin statuspost IVC filter, seizure disorder, anxiety and depression. He also has a history of large B-cell lymphoma and malignant melanoma. He complains of history of lower cramping abdominal pain rating the pain from 4- 6 out of 10 in severity but waxing and waning with at least 6-8 bouts of diarrhea throughout the day with associated occasional nausea and emesis able totolerate some fluids but difficulty with food, notes abdominal discomfort worse with attempted oral intake with associated lightheadedness and dizziness prompting CC UC evaluation with referral to the ED. CBC with WBC 7.3, hemoglobin 11, platelet 204 without market left shift, CMP with a sodium of 122, glucose 117 otherwise normal, lipase 328, urinalysis with specific gravity 1.015, 10 occult blood, negative nitrite, negative leukocyte esterase, no urine CT abdomen pelvis with noted distention of the right colon and transverse colon to splenic fractureprimarily with air and some fecal material, suspicious for colonic ileus, cholelithiasis evident aswell as collapse of the IVC below the level of the IVC filter. No pneumatosis or site of obstruction was seen. 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 No lymphadenopathy. Thiscan be seen with mesenteric adenitis. CT scan back in 2013 of abdomen pelvis displayed- There is borderline retroperitoneal lymphadenopathy with enlarged nodes no greater than 10mm in the short axis diameter. Small lymph nodes are seen in the deep root of the mesentery with residual increased markings within the fat suggestive of post r adiation treatment and radiation fibrosis. He had a similar presentation back in 2019. He was diagnosed with viral gastroenteritis at that time. [facility] Medical History Seizures Loss of one eye Wears glasses Cancer Thyroid disease Arthritis Prostate disease Bladder disease Low iron High cholesterol Diarrhea Gastric reflux Non-smoker History of pain when walking Heart murmur Localized swelling of both lower legs Abnormal biliary HIDA scan Anxiety and depression HTN (hypertension) History of DVT of lower extremity Seizure disorder Home Medications ?Medication ?Instructions ?Recorded ?Last Taken ?Type lamotrigine 200 mg tablet 200 mg PO BID SEIZURES 03/1203/21/24 History (Lamictal) lacosamide 200 mg tablet 200 mg PO BID SEIZURES 09/1703/10/24 History zonisamide 100 mg capsule 100 mg PO BID SEIZURES 09/1703/20/24 History warfarin 7.5 mg tablet 7.5 mg PO DAILY BLOOD THINNE R 09/12/21 03/16/24 History levetiracetam 750 mg tablet 1,500 mg PO BID SEIZURES 0 03/11/24 03/21/24 History levothyroxine 88 mcg tablet 88 mcg PO DAILY THYROID 03/21/24 History furosemide 40 mg tablet 20 mg PO DAILY water pill Unknown History ibuprofen 600 mg tablet 600 mg PO Q6H PRN fever or p ain 03/21/24 Unknown Rx #20 tabs potassium chloride 20 mEq/15 mL 10 meq PO DAILY supple ment 02/27/25 Unknown History oral liquid tamsulosin 0.4 mg capsule 0.4 mg PO QHS prostate 02/27 Unknown History Allergy/AdvReac Type Severity Reaction Status Date / Time No Known Allergies Allergy Verified 02/27/25 09:55 Surgical History Hx of colonoscopy History of vascular access device Hx of vascular surgery Hx of left cataract extraction Social History household members: spouse Smoking Status: Never smoker ROS Constitutional Constitutional: Denies fatigue, fever(s), poor appetite, weight gain or weight loss Gastrointestinal Gastrointestinal: Denies belching, bloating, change in bowel habits, change in stool character, chewing difficulty, coffee ground emesis, constipation, cramping, diarrhea, dyspepsia, dysphagia, earlysatiety, excessive flatus, fecalincontinence, heartburn, hematemesis, hematochezia, hemorrhoids, loose stools, melena, nausea, odynophagia, rectal bleeding, tenesmus, vomiting or weight changes Physical Exam Narrative General: Alert, oriented, no apparent distress HEENT: Atraumatic, normocephalic Eyes: Keeps right eye closed, left eye no acute abnormalities appreciated Neck: Supple Respiratory: No significant wheezes or rhonchi, normal respiratory effort Cardiovascular: Regular rate and rhythm GI: Distended, did not seem to be having pain on palpation and no rebound, guarding, rigidity Extremities: 1+ lower extremity edema with chronic changes Musculoskeletal: Moving all extremities Neuro: No overt focal neurological deficits Skin: Chronic lower extremity changes Psych: Cooperative Lab / Micro Data 02/27/25 10:15 02/27/25 16:33 Labs: Laboratory Results - last 24 hr 02/27/25 10:15: WBC 8.3, RBC 3.77 L, Hgb 11.0 L, Hct 32.5 L, MCV 86.2, MCH 29.2,MCHC 33.8, RDW Std Deviation 43.1, RDW Coeff of Vaishnavi 13.8, Plt Count 193, MPV 8.9, Immature Gran % (Auto) 0.600, Neut % (Auto) 71.4 H, Lymph % (Auto) 16.7 L, Saline % (Auto) 9.2, Eos % (Auto) 1.9, Baso % (Auto) 0.2, Absolute Neuts (auto) 5.9, Absolute Lymphs (auto) 1.39, Nucleated RBC % 0, PT 27.7 H, INR 2.5, Sodium 121 L, Potassium 3.0 L, Chloride 89 L, Carbon Dioxide 19.7 L, Anion Gap 12, BUN 15, Creatinine 0.81, Estim Creat Clear Calc 118.12, Est GFR (MDRD) Non- Af 94, BUN/Creatinine Ratio 18.2, Glucose 100 H, Lactic Acid 1.4, Calcium 8.0, Total Bilirubin 0.38, AST 29, ALT 24, Alkaline Phosphatase 113, Total Protein 6.1, Albumin 3.8, Globulin 2.3, Albumin/Globulin Ratio 1.6, b-Hydroxybutyric mmol/L 0.1 02/27/25 11:09: Urine Color Yellow, Urine Clarity Clear, Urine pH 7.0, Ur Specific [place] 1.010, Urine Protein 15 H, Urine Glucose (UA) Normal, Urine Ketones Negative, Urine Occult Blood Negative, Urine Nitrite Negative, Urine Bilirubin Negative, Urine Urobilinogen Normal, Ur Leukocyte Esterase Negative, Urine RBC 0 SEEN, Urine WBC 0 SEEN, Ur Squamous Epith Cells 0 SEEN, Urine Bacteria 0 SEEN, Urine Mucus 0 SEEN 02/27/25 16:33: Sodium 122 L, Potassium 3.1 L, Chloride 91 L, Carbon Dioxide 20.2 L, Anion Gap 11, BUN 11, Creatinine 0.75, Estim Creat Clear Calc 122.07, Est GFR (MDRD) Non-Af 96, BUN/Creatinine Ratio 14.1, Glucose 134 H, Serum Osmolality 255 L, Calcium 8.1 02/27/25 17:01: Urine Osmolality 303, Ur Random Sodium 51, Urine Potassium 9.3, Urine Chloride 39, Urine Urea Nitrogen 285 ABG Data ABG results: ABG 02/27/25 11:34 Specimen Type SAIGE Sample Site Not entered VBG pH 7.38 VBG pO2 55 H VBG HCO3 21 L VBG Total CO2 22 L VBG O2 Sat (Calc) 88 H VBG Base Excess -5 L POC Mix VBG pCO2 Pt Tmp 34.8 L O2 Delivery Device Not entered Imaging Radiology Impression Abdomen/Pelvis CT 02/27/25 13:15 IMPRESSION: 1. Gallstone 2. Gaseous distention of the transverse colon without wall thickening, pneumatosis or site of obstruction. No change. 3. 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 No lymphadenopathy. This can be seen with mesenteric adenitis. 4. IVC filter in place. Possible thrombosis of the IVC below the filter with numerous abdominal wall collaterals. Reading Location: [id number] Assessment & Plan Assessment/Plan (1) Abdominal pain, acute, left lower quadrant: (2) Colon distention: (3) Abdominal pain: (4) Hyponatremia: PLAN: 69-year-old male presenting with a history of recurrent episodes of abdominal pain, distension, and changes in bowel habits. These episodes have been accompanied by hyponatremia. He reports thecurrent episode started 3 days ago with generalized abdominal pain, bloating, and decreased appetite. He deniesfever or vomiting. He states he has had similar episodes in the past, often resolving with supportive care * Abdomen:?Distended, generalized tenderness on palpation, no rebound or guarding. Bowel sounds arediminished. No masses appreciated. * Labs: * Serum Sodium: 122 * Other electrolytes: Within normal limits * CBC: Hemoglobin 11 white count within normal limits * CRP/ESR: [Pending * Imaging:? CT scan displays colonic dilation without mechanical obstruction but does show mesenteric lymphadenopathy Assessment 69-year-old male with recurrent colonic dilation, hyponatremia, and abdominal pain concerning for mesenteric adenitis. The patient's age and recurrence of symptoms suggest a potentially underlying systemic condition or inflammatory process.? Differential Diagnoses: * Acute Colonic Pseudo-obstruction (Ewelina Syndrome):?A leading possibility given his presentation, especially in the context of elderly patients with comorbidities or recent illness. * Chronic Intestinal Pseudo-obstruction:?This is a possibility due to the recurrent nature of his symptoms. * Inflammatory Bowel Disease (IBD):?Although mesenteric adenitis can occur secondary to IBD, it is more commonly seen in pediatric patients and would typically be diagnosed with more specific IBD symptoms like chronic diarrhea and rectal bleeding. * Lymphoma:?This serious condition can also cause mesenteric lymph node enlargement and intestinal obstruction, and needs to be ruled out. * Hypothyroidism:?Can lead to chronic constipation and colonic dilation.? Regarding Hyponatremia: * It is crucial to determine the chronicity of hyponatremia. If the duration is unknown, it should be treated as chronic. * The hyponatremia could be a contributing factor to the colonic dilation as electrolyte imbalancescan affect gut motility. * Volume status assessment (hypovolemic, euvolemic, or hypervolemic) . Consider nephrology consultation. Plan * Bowel rest and nasogastric decompression * Intravenous fluids:?0.9% saline infusion * Careful monitoring of sodium levels?due to the risks associated with over- rapid correction of hyponatremia. * Medication Review:?Discontinue any medications that may contribute to hyponatremia, particularly diuretics. * Serial imaging:?Abdominal X-rays and CT scan as noted in the objective, plus ultrasound if needed. * Consider endoscopy or surgery?if mechanical obstruction is suspected or conservative management fails. * He would likely need to undergo colonoscopy with biopsies * Consider Infectious Disease to help to determine the cause of mesenteric adenitis if we do not suspect this is from lymphoma. Charges/Coding Visit Charges Inpatient E&M: 39050 Init Hosp L3 03/02/25 0820 Cosigner Signature (if applicable): CC: Dr. Hari Oneill, DO~ Signed [facility]07-27-2025 Progress note Author Yoon Kim [facility] Note Date/Time March 01, 2025 11:4 5am [facility] Medical Records Department [address] [place] [address] Progress Note - Surgery 03/01/25 1139 MR#: [id number] Acct: [id number] Name: EDER BREEN Rep #:[id number] : 1955 69 From: Yoon Kim MD PCP: Dr. Hari Oneill, Status:AD M IN Location: [place] [address] Subjective Subjective Patient continues to have bowel function and denies abdominal pain or nausea or vomiting tolerating diet. Objective Data Objective Data Vital Signs: Vital Signs Temp Pulse Resp BP Pulse Ox O2 Del Method 98.2 F 81 16 127/56 H 96 Room Air 03/01/25 08:58 03/01/25 08:58 03/01/25 08:58 03/01/25 08:58 03/01/25 08:58 03/01/25 09:02 Oxygen Delivery Method Room Air Weight: 289 lb 14.526 oz Body Mass Index (BMI) 39.3 Intake & Output: Intake and Output for Last 24 Hours 02/27/25 02/28/25 03/01/25 23:59 23:59 23:59 Intake Total 878.33 / 878.33 2567.08 / 2567.08 1247.50 / 1247.50 Output Total 3300 / 3300 600 / 600 Balance 878.33 / -121.67 -732.92 / -732.92 647.50 / 647.50 Lab / Micro Data 03/01/25 05:08 03/01/25 05:08 Labs: Laboratory Results - last 24 hr 03/01/25 05:08: WBC 5.2, RBC 3.83 L, Hgb 11.2 L, Hct 34.2 L, MCV 89.3, MCH 29.2,MCHC 32.7, RDW Std Deviation 47.7 H, RDW Coeff of Vaishnavi 14.6, Plt Count 188, MPV 9.2, Immature Gran % (Auto) 0.200, Neut % (Auto) 63.1, Lymph % (Auto) 22.7, Saline% (Auto) 8.7, Eos % (Auto) 4.7, Baso % (Auto) 0.6, Absolute Neuts (auto) 3.3, Absolute Lymphs (auto) 1.17, Nucleated RBC % 0, PT 30.0 H, INR 2.8, Sodium 139, Potassium 3.1 L, Chloride 107, Carbon Dioxide 19.8 L, Anion Gap 12, BUN 8, Creatinine 0.85, Estim Creat Clear Calc 111.80, Est GFR (MDRD) Non-Af 93, BUN/Creatinine Ratio 9.4 L, Glucose 94, Calcium 8.6 Micro: Microbiology 02/27/25 20:20 Stool Enteric Bacteriology - Final 02/27/25 20:20 Stool Clostridioides difficile (PCR) - Final Radiography Diagnostic Testing: Radiology Impression Small Bowel X-Ray 02/28/25 17:45 IMPRESSION: No evidence of large bowel or small bowel obstruction Reading Location: [facility] Physical Exam Const oriented x3 and no apparent distress GI soft to palpation and non-tender Assessment & Plan Assessment/Plan (1) Abdominal distension: (2) Colon distention: (3) Hyponatremia: PLAN: Plan Patient tolerating diet denies any abdominal pain. No plans for any general surgery intervention. Yoon Kim M.D. Pager: [phone] [facility] [address] [place] [address], [facility], [address] [place] [address] Office: [phone] Charges/Coding Multi Select Codes Visit Charges Visit Charges: 94036 Subs Hosp L2 03/01/25 0084 <Electronically signed by Yoon Kim MD> Cosigner Signature (if applicable): CC: ~ Signed [facility] Work Phone: 1(533) 616-614107-27-2025 Consult note Author Yoon Kim [facility] Note Date/Time March 01, 2025 11:4 4am [facility] Medical Records Department [address] [place] [address] Consultation - Surgical 02/28/251910 MR#: [id number] Acct: [id number] Name: EDER BREEN Rep #:[id number] : 1955 69 From: Yoon Kim MD PCP: Dr. Hari Oneill, DO Status:AD M IN Location: [facility] [id number] Assessment & Plan Assessment/Plan (1) Abdominal distension: (2) Colon distention: (3) Hyponatremia: PLAN: Plan SBFT shows contrast in colon in <1 hr and at rectum <3 hrs- no evidence of obstruction. Pt c/o diarrhea -chronic but states he has had stool studies and colonoscopy recently per pt at [facility] and it was all normal. Currently denies any abd pain. No plans for any general surgery intervention. HPI Consult Data Date of Consult: 03/01/25 HPI Narrative Reason for Consultation: Possible bowel obstruction/abdominal distention HPI Narrative: EDER BREEN, is a 69 M who presents to the ER initially due to abdominal pain which has resolved on its own. Patient states he has been having diarrhea for at least 3 to 4 months patient unable to characterize any further a timeframe. Patient does state that recently he has had stool studies as well ascolonoscopy done at [facility]?I do not have these results patient is unable to actually state a more exact date. Patient is unable to say if his abdomen is any larger than usual. Patient does state that he has been drinking water to help fill him up, states that he would have 6 glasses to also help him eat less. Patient's sodium on admission was 12 21 up to 125 at time of consult. Currently patient denies any abdominal pain nausea or vomiting. Patient was also seen by GI yesterday that he may possibly have Ewelina says he does have gaseous distention of his transverse colon this been present on previous CTs as well upon my review of past CTs. [facility] Medical History Seizures Loss of one eye Wears glasses Cancer Thyroid disease Arthritis Prostate disease Bladder disease Low iron High cholesterol Diarrhea Gastric reflux Non-smoker History of pain when walking Heart murmur Localized swelling of both lower legs Abnormal biliary HIDA scan Anxiety and depression HTN (hypertension) History of DVT of lower extremity Seizure disorder Home Medications ?Medication ?Instructions ?Recorded ?Last Taken ?Type lamotrigine 200 mg tablet 200 mg PO BID SEIZURES 03/1203/21/24 History (Lamictal) lacosamide 200 mg tablet 200 mg PO BID SEIZURES 09/1703/10/24 History zonisamide 100 mg capsule 100 mg PO BID SEIZURES 09/1703/20/24 History warfarin 7.5 mg tablet 7.5 mg PO DAILY BLOOD THINNE R 09/12/21 03/16/24 History levetiracetam 750 mg tablet 1,500 mg PO BID SEIZURES 0 03/11/24 03/21/24 History levothyroxine 88 mcg tablet 88 mcg PO DAILY THYROID 03/21/24 History furosemide 40 mg tablet 20 mg PO DAILY water pill Unknown History ibuprofen 600 mg tablet 600 mg PO Q6H PRN fever or p ain 03/21/24 Unknown Rx #20 tabs potassium chloride 20 mEq/15 mL 10 meq PO DAILY supple ment 02/27/25 Unknown History oral liquid tamsulosin 0.4 mg capsule 0.4 mg PO QHS prostate 02/27 Unknown History Allergy/AdvReac Type Severity Reaction Status Date / Time No Known Allergies Allergy Verified 02/27/25 09:55 Surgical History Hx of colonoscopy History of vascular access device Hx of vascular surgery Hx of left cataract extraction Social History household members: spouse Smoking Status: Never smoker ROS Constitutional Constitutional: Denies anorexia or fever(s) ENT HEENT: Denies dysphagia Cardiovascular Cardiovascular: Denies chest pain Respiratory/Chest Respiratory/Chest: Denies cough Gastrointestinal Gastrointestinal: Reports abdominal pain and diarrhea; Denies nausea or vomiting Genitourinary Genitourinary: Denies dysuria Musculoskeletal Musculoskeletal: Denies joint swelling Integumentary Integumentary: Denies jaundice Neurologic Neurologic: Reports weakness Psychiatric Psychiatric: Denies anxiety Endocrine Endocrinology: Denies palpitations Hematologic/Lymphatic Hematologic/Lymphatic: Reports easy bruising Physical Exam Const alert, oriented x3 and no apparent distress HEENT normocephalic Resp normal respiratory effort Cardio regular rate GI soft to palpation and non-tender Inspection: abdominal distention Palpation: Negative for guarding Extremity no clubbing, cyanosis or edema Skin no rashes or lesions noted Neuro CN's II-XII intact bilaterally Psych mental status grossly normal Lab / Micro Data 03/01/25 05:08 03/01/25 05:08 Labs: Laboratory Results - last 24 hr 02/27/25 20:08: Sodium 125 L, Potassium 3.2 L, Chloride 94 L, Carbon Dioxide 20.8 L, Anion Gap 10, BUN 10, Creatinine 0.76, Estim Creat Clear Calc 122.07, Est GFR (MDRD) Non-Af 96, BUN/Creatinine Ratio 12.7, Glucose 120 H, Calcium 8.3 02/28/25 00:10: Sodium 128 L, Potassium 3.2 L, Chloride 97 L, Carbon Dioxide 20.5 L, Anion Gap 10, BUN 10, Creatinine 0.70, Estim Creat Clear Calc 122.07, Est GFR (MDRD) Non-Af 99, BUN/Creatinine Ratio 14.3, Glucose 111 H, Calcium 8.5 02/28/25 05:35: WBC 6.3, RBC 3.72 L, Hgb 11.0 L, Hct 32.3 L, MCV 86.8, MCH 29.6,MCHC 34.1, RDW Std Deviation 43.3, RDW Coeff of Vaishnavi 13.9, Plt Count 188, MPV 9.2, Immature Gran % (Auto) 0.500, Neut % (Auto) 72.4 H, Lymph % (Auto) 16.5 L, Saline % (Auto) 7.3, Eos % (Auto) 3.0, Baso % (Auto) 0.3, Absolute Neuts (auto) 4.5, Absolute Lymphs (auto) 1.03, Nucleated RBC % 0, PT 27.1 H, INR 2.5, Sodium 132 L, Potassium 3.3, Chloride 102, Carbon Dioxide 20.6 L, Anion Gap 10, BUN 9, Creatinine 0.72, Estim Creat Clear Calc 120.80, Est GFR (MDRD) Non-Af 98, BUN/Creatinine Ratio 12.9, Glucose 103 H, Calcium 8.4, TSH 1.500 Micro: Microbiology 02/27/25 20:20 Stool Enteric Bacteriology - Final 02/27/25 20:20 Stool Clostridioides difficile (PCR) - Final Charges/Coding Visit Charges Inpatient E&M: 27911 Init Hosp L3 03/01/25 1144 <Electronically signed by Yoon Kim MD> Cosigner Signature (if applicable): CC: Dr. Hari Oneill, DO~ Signed [facility] Work Phone: 1(463) 859-975307-27-2025 Progress note Author Danae Stanton [facility] Note Date/Time March 01, 2025 11:0 8am [facility] Medical Records Department [address] [place] [address] Progress Note 03/01/25 1101 MR#: [id number] Acct: [id number] Name: EDER BREEN Rep #:[id number] : 1955 69 From: Danae Stanton MD PCP: Dr. Hari Oneill, DO Status:AD M IN Location: [place] [address] Subjective Subjective Patient seen and examined. He was lying calmly in bed and had no complaints. He states his abdomen has always been distended like this as he is a heavyset arlene and so does not see any significant difference. He had a small bowel follow-through yesterday which did not show any evidence of bowel obstruction. He did have some diarrhea overnight so I question with a history of contrast that is passing through. Review of systems otherwise negative. He has remainedhemodynamically stable. Objective Data Objective Data Vital Signs: Vital Signs Temp Pulse Resp BP Pulse Ox O2 Del Method 98.2 F 81 16 127/56 H 96 Room Air 03/01/25 08:58 03/01/25 08:58 03/01/25 08:58 03/01/25 08:58 03/01/25 08:58 03/01/25 09:02 Oxygen Delivery Method Room Air Weight: 289 lb 14.526 oz Body Mass Index (BMI) 39.3 Intake & Output: Intake and Output for Last 24 Hours 02/27/25 02/28/25 03/01/25 23:59 23:59 23:59 Intake Total 878.33 / 878.33 2567.08 / 2567.08 556.25 / 556.25 Output Total 3300 / 3300 600 / 600 Balance 878.33 / -121.67 -732.92 / -732.92 -43.75 / -43.75 Lab / Micro Data 03/01/25 05:08 03/01/25 05:08 Labs: Laboratory Results - last 24 hr 03/01/25 05:08: WBC 5.2, RBC 3.83 L, Hgb 11.2 L, Hct 34.2 L, MCV 89.3, MCH 29.2,MCHC 32.7, RDW Std Deviation 47.7 H, RDW Coeff of Vaishnavi 14.6, Plt Count 188, MPV 9.2, Immature Gran % (Auto) 0.200, Neut % (Auto) 63.1, Lymph % (Auto) 22.7, Saline% (Auto) 8.7, Eos % (Auto) 4.7, Baso % (Auto) 0.6, Absolute Neuts (auto) 3.3, Absolute Lymphs (auto) 1.17, Nucleated RBC % 0, PT 30.0 H, INR 2.8, Sodium 139, Potassium 3.1 L, Chloride 107, Carbon Dioxide 19.8 L, Anion Gap 12, BUN 8, Creatinine 0.85, Estim Creat Clear Calc 111.80, Est GFR (MDRD) Non-Af 93, BUN/Creatinine Ratio 9.4 L, Glucose 94, Calcium 8.6 Micro: Microbiology 02/27/25 20:20 Stool Enteric Bacteriology - Final 02/27/25 20:20 Stool Clostridioides difficile (PCR) - Final Radiography Diagnostic Testing: Radiology Impression Small Bowel X-Ray 02/28/25 17:45 IMPRESSION: No evidence of large bowel or small bowel obstruction Reading Location: [facility] Physical Exam Const alert, oriented x3 and no apparent distress Constitutional Narrative: Class III obesity HEENT normocephalic, head/scalp atraumatic, moist oral mucous membranes and oropharynxnormal Eyes EOMs intact bilaterally Neck supple and no JVD Lymph Lymphatic: no lymphedema noted Resp normal respiratory effort, normal air movement and clear to auscultation bilaterally Cardio regular rate, regular rhythm, S1 normal heart sound, S2 normal heart sound and no murmurs GI GI Narrative: abdomen moderately distended, tympanitic to percussion, no guarding or rebound tenderness. Extremity normal capillary refill and no clubbing, cyanosis or edema General Extremity: no tenderness to palpation of joints or extremities Skin General Skin Exam: no breakdown Neuro CN's II-XII intact bilaterally and no focal motor deficits Motor Exam: general weakness Psych thought process normal, cooperative and affect normal Appearance: appropriate Assessment & Plan Assessment/Plan (1) Abdominal pain, acute, left lower quadrant: (2) Colon distention: PLAN: Plan #Abdominal distention in the setting of abdominal pain, nausea and diarrhea * Nausea and diarrhea have resolved. However he still has significantly distended abdomen. * CT of the abdomen and pelvis with gaseous distention of transverse colon without wall thickening and possible mesenteric adenitis as well as IVC filter with possible thrombosis below the filter with numerous abdominal wall collaterals. There was also a large right-sided stool burden * CT of the abdomen from 2023 also showed the distended colon. 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 Patient also liquid diet but we will hold in light of the abdominal distention. Continue gentle hydration with IV fluids. * General surgery consulted yesterday, he had a small bowel follow through which showed no evidence of obstruction. * will start on clear liquid diet and advance slowly as tolerated. * #Hyponatremia: resolved. #Hypokalemia: Potassium is 3.1. Will replace and trend. #History of seizure disorder: On lacosamide and zonisamide as well as Lamictal and Keppra. 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 On Coumadin. INR is therapeutic today. CT scan showed IVC filter with possible thrombosis below the filter withnumerous abdominal wall collaterals indicating that this likely chronic. #Hypothyroidism: On Synthroid #GERD: On PPI #DVT prophylaxis: On Coumadin and INR therapeutic. Charges/Coding Visit Charges Inpatient E&M: 83029 Subs Hosp L2 03/01/25 1102 <Electronically signed by Danae Stanton MD> Danae Stanton MD Cosigner Signature (if applicable): CC: ~ Signed [facility] Work Phone: [phone]) 887-634907-27-2025 Progress note [facility] Medical Records Department [address] [place] [address] Progress Note - Surgery 03/01/25 1139 MR#: [id number] Acct: [id number] Name: EDER BREEN Rep #:[id number] : 1955 69 From: Yoon Kim MD PCP: Dr. Hari Oneill, DO Status:AD M IN Location: [place] [address] Subjective Subjective Patient continues to have bowel function and denies abdominal pain or nausea or vomiting toleratingdiet. Objective Data Objective Data Vital Signs: Vital Signs Temp Pulse Resp BP Pulse Ox O2 Del Method 98.2 F 81 16 127/56 H 96 Room Air 03/01/25 08:58 03/01/25 08:58 03/01/25 08:58 03/01/25 08:58 03/01/25 08:58 03/01/25 09:02 Oxygen Delivery Method Room Air Weight: 289 lb 14.526 oz Body Mass Index (BMI) 39.3 Intake & Output: Intake and Output for Last 24 Hours 02/27/25 02/28/25 03/01/25 23:59 23:59 23:59 Intake Total 878.33 / 878.33 2567.08 / 2567.08 1247.50 / 1247.50 Output Total 3300 / 3300 600 / 600 Balance 878.33 / -121.67 -732.92 / -732.92 647.50 / 647.50 Lab / Micro Data 03/01/25 05:08 03/01/25 05:08 Labs: Laboratory Results - last 24 hr 03/01/25 05:08: WBC 5.2, RBC 3.83 L, Hgb 11.2 L, Hct 34.2 L, MCV 89.3, MCH 29.2,MCHC 32.7, RDW Std Deviation 47.7 H, RDW Coeff of Vaishnavi 14.6, Plt Count 188, MPV 9.2, Immature Gran % (Auto) 0.200, Neut % (Auto) 63.1, Lymph % (Auto) 22.7, Saline% (Auto) 8.7, Eos % (Auto) 4.7, Baso % (Auto) 0.6, Absolute Neuts (auto) 3.3, Absolute Lymphs (auto) 1.17, Nucleated RBC % 0, PT 30.0 H, INR 2.8, Sodium 139, Potassium 3.1 L, Chloride 107, Carbon Dioxide 19.8 L, Anion Gap 12, BUN 8, Creatinine 0.85, Estim Creat Clear Calc 111.80, Est GFR (MDRD) Non-Af 93, BUN/Creatinine Ratio 9.4 L, Glucose 94, Calcium 8.6 Micro: Microbiology 02/27/25 20:20 Stool Enteric Bacteriology - Final 02/27/25 20:20 Stool Clostridioides difficile (PCR) - Final Radiography Diagnostic Testing: Radiology Impression Small Bowel X-Ray 02/28/25 17:45 IMPRESSION: No evidence of large bowel or small bowel obstruction Reading Location: [facility] Physical Exam Const oriented x3 and no apparent distress GI soft to palpation and non-tender Assessment & Plan Assessment/Plan (1) Abdominal distension: (2) Colon distention: (3) Hyponatremia: PLAN: Plan Patient tolerating diet denies any abdominal pain. No plans for any general surgery intervention. Yoon Kim M.D. Pager: [phone] [facility] [address] [place] [address], [address] [place] [address] Office: [phone] Charges/Coding Multi Select Codes Visit Charges Visit Charges: 85983 Subs Hosp L2 03/01/25 1145 Cosigner Signature (if applicable): CC: ~ Signed [facility]07-27-2025 Consult note [facility] Medical Records Department [address] [place] [address] Consultation - Surgical 02/28/25 1911 MR#: [id number] Acct: [id number] Name: EDER BREEN Rep #:[id number] : 1955 69 From: Yoon Kim MD PCP: Dr. Hari Oneill, DO Status:AD M IN Location: [id number] Assessment & Plan Assessment/Plan (1) Abdominal distension: (2) Colon distention: (3) Hyponatremia: PLAN: Plan SBFT shows contrast in colon in <1 hr and at rectum <3 hrs- no evidence of obstruction. Pt c/o diarrhea -chronic but states he has had stool studies and colonoscopy recently per pt at [facility] it was all normal. Currently denies any abd pain. No plans for any general surgery intervention. HPI Consult Data Date of Consult: 03/01/25 HPI Narrative Reason for Consultation: Possible bowel obstruction/abdominal distention HPI Narrative: EDER BREEN, is a 69 M who presents to the ER initially due to abdominal pain which has resolved on its own. Patient states he has been having diarrhea for at least 3 to 4 months patient unable to characterize any further a timeframe. Patient does state that recently he has had stool studies as well ascolonoscopy done at [facility]?I do not have these results patient is unable to actually state a more exact date. Patient is unable to say if his abdomen is any larger than usual. Patient does state that he has been drinking water to help fill him up, states that he would have 6 glasses to also help him eat less. Patient's sodium on admission was 12 21 up to 125 at time of consult. Currently patient denies any abdominal pain nausea or vomiting. Patient was also seen by GI yesterday that he may possibly have Kimberly says he does have gaseous distention of his transverse colon this been present on previous CTs as well upon my review of past CTs. [facility] Medical History Seizures Loss of one eye Wears glasses Cancer Thyroid disease Arthritis Prostate disease Bladder disease Low iron High cholesterol Diarrhea Gastric reflux Non-smoker History of pain when walking Heart murmur Localized swelling of both lower legs Abnormal biliary HIDA scan Anxiety and depression HTN (hypertension) History of DVT of lower extremity Seizure disorder Home Medications ?Medication ?Instructions ?Recorded ?Last Taken ?Type lamotrigine 200 mg tablet 200 mg PO BID SEIZURES 03/1203/21/24 History (Lamictal) lacosamide 200 mg tablet 200 mg PO BID SEIZURES 09/1703/10/24 History zonisamide 100 mg capsule 100 mg PO BID SEIZURES 09/1703/20/24 History warfarin 7.5 mg tablet 7.5 mg PO DAILY BLOOD THINNE R 09/12/21 03/16/24 History levetiracetam 750 mg tablet 1,500 mg PO BID SEIZURES 0 03/11/24 03/21/24 History levothyroxine 88 mcg tablet 88 mcg PO DAILY THYROID 03/21/24 History furosemide 40 mg tablet 20 mg PO DAILY water pill Unknown History ibuprofen 600 mg tablet 600 mg PO Q6H PRN fever or p ain 03/21/24 Unknown Rx #20 tabs potassium chloride 20 mEq/15 mL 10 meq PO DAILY supple ment 02/27/25 Unknown History oral liquid tamsulosin 0.4 mg capsule 0.4 mg PO QHS prostate 02/27 Unknown History Allergy/AdvReac Type Severity Reaction Status Date / Time No Known Allergies Allergy Verified 02/27/25 09:55 Surgical History Hx of colonoscopy History of vascular access device Hx of vascular surgery Hx of left cataract extraction Social History household members: spouse Smoking Status: Never smoker ROS Constitutional Constitutional: Denies anorexia or fever(s) ENT HEENT: Denies dysphagia Cardiovascular Cardiovascular: Denies chest pain Respiratory/Chest Respiratory/Chest: Denies cough Gastrointestinal Gastrointestinal: Reports abdominal pain and diarrhea; Denies nausea or vomiting Genitourinary Genitourinary: Denies dysuria Musculoskeletal Musculoskeletal: Denies joint swelling Integumentary Integumentary: Denies jaundice Neurologic Neurologic: Reports weakness Psychiatric Psychiatric: Denies anxiety Endocrine Endocrinology: Denies palpitations Hematologic/Lymphatic Hematologic/Lymphatic: Reports easy bruising Physical Exam Const alert, oriented x3 and no apparent distress HEENT normocephalic Resp normal respiratory effort Cardio regular rate GI soft to palpation and non-tender Inspection: abdominal distention Palpation: Negative for guarding Extremity no clubbing, cyanosis or edema Skin no rashes or lesions noted Neuro CN's II-XII intact bilaterally Psych mental status grossly normal Lab / Micro Data 03/01/25 05:08 03/01/25 05:08 Labs: Laboratory Results - last 24 hr 02/27/25 20:08: Sodium 125 L, Potassium 3.2 L, Chloride 94 L, Carbon Dioxide 20.8 L, Anion Gap 10, BUN 10, Creatinine 0.76, Estim Creat Clear Calc 122.07, Est GFR (MDRD) Non-Af 96, BUN/Creatinine Ratio 12.7, Glucose 120 H, Calcium 8.3 02/28/25 00:10: Sodium 128 L, Potassium 3.2 L, Chloride 97 L, Carbon Dioxide 20.5 L, Anion Gap 10, BUN 10, Creatinine 0.70, Estim Creat Clear Calc 122.07, Est GFR (MDRD) Non-Af 99, BUN/Creatinine Ratio 14.3, Glucose 111 H, Calcium 8.5 02/28/25 05:35: WBC 6.3, RBC 3.72 L, Hgb 11.0 L, Hct 32.3 L, MCV 86.8, MCH 29.6,MCHC 34.1, RDW Std Deviation 43.3, RDW Coeff of Vaihsnavi 13.9, Plt Count 188, MPV 9.2, Immature Gran % (Auto) 0.500, Neut % (Auto) 72.4 H, Lymph % (Auto) 16.5 L, Saline % (Auto) 7.3, Eos % (Auto) 3.0, Baso % (Auto) 0.3, Absolute Neuts (auto) 4.5, Absolute Lymphs (auto) 1.03, Nucleated RBC % 0, PT 27.1 H, INR 2.5, Sodium 132 L, Potassium 3.3, Chloride 102, Carbon Dioxide 20.6 L, Anion Gap 10, BUN 9, Creatinine 0.72, Estim Creat Clear Calc 120.80, Est GFR (MDRD) Non-Af 98, BUN/Creatinine Ratio 12.9, Glucose 103 H, Calcium 8.4, TSH 1.500 Micro: Microbiology 02/27/25 20:20 Stool Enteric Bacteriology - Final 02/27/25 20:20 Stool Clostridioides difficile (PCR) - Final Charges/Coding Visit Charges Inpatient E&M: 86431 Init Hosp L3 03/01/25 1144 Cosigner Signature (if applicable): CC: Dr. Hari Oneill DO~ Signed [facility]07-27-2025 Progress note [facility] Medical Records Department [address] [place] [address] Progress Note 03/01/25 1101 MR#: [id number] Acct: [id number] Name: EDER BREEN Rep #:[id number] : 1955 69 From: Danae Stanton MD PCP: Dr. Hari Oneill, DO Status:AD M IN Location: [place] [address] Subjective Subjective Patient seen and examined. He was lying calmly in bed and had no complaints. He states his abdomen has always been distended like this as he is a heavyset arlene and so does not see any significant difference. He had a small bowel follow- through yesterday which did not show any evidence of bowel obstruction. He did have some diarrhea overnight so I question with a history of contrast that is passingthrough. Review of systems otherwise negative. He has remainedhemodynamically stable. Objective Data Objective Data Vital Signs: Vital Signs Temp Pulse Resp BP Pulse Ox O2 Del Method 98.2 F 81 16 127/56 H 96 Room Air 03/01/25 08:58 03/01/25 08:58 03/01/25 08:58 03/01/25 08:58 03/01/25 08:58 03/01/25 09:02 Oxygen Delivery Method Room Air Weight: 289 lb 14.526 oz Body Mass Index (BMI) 39.3 Intake & Output: Intake and Output for Last 24 Hours 02/27/25 02/28/25 03/01/25 23:59 23:59 23:59 Intake Total 878.33 / 878.33 2567.08 / 2567.08 556.25 / 556.25 Output Total 3300 / 3300 600 / 600 Balance 878.33 / -121.67 -732.92 / -732.92 -43.75 / -43.75 Lab / Micro Data 03/01/25 05:08 03/01/25 05:08 Labs: Laboratory Results - last 24 hr 03/01/25 05:08: WBC 5.2, RBC 3.83 L, Hgb 11.2 L, Hct 34.2 L, MCV 89.3, MCH 29.2,MCHC 32.7, RDW Std Deviation 47.7 H, RDW Coeff of Vaishnavi 14.6, Plt Count 188, MPV 9.2, Immature Gran % (Auto) 0.200, Neut % (Auto) 63.1, Lymph % (Auto) 22.7, Saline% (Auto) 8.7, Eos % (Auto) 4.7, Baso % (Auto) 0.6, Absolute Neuts (auto) 3.3, Absolute Lymphs (auto) 1.17, Nucleated RBC % 0, PT 30.0 H, INR 2.8, Sodium 139, Potassium 3.1 L, Chloride 107, Carbon Dioxide 19.8 L, Anion Gap 12, BUN 8, Creatinine 0.85, Estim Creat Clear Calc 111.80, Est GFR (MDRD) Non-Af 93, BUN/Creatinine Ratio 9.4 L, Glucose 94, Calcium 8.6 Micro: Microbiology 02/27/25 20:20 Stool Enteric Bacteriology - Final 02/27/25 20:20 Stool Clostridioides difficile (PCR) - Final Radiography Diagnostic Testing: Radiology Impression Small Bowel X-Ray 02/28/25 17:45 IMPRESSION: No evidence of large bowel or small bowel obstruction Reading Location: [facility] Physical Exam Const alert, oriented x3 and no apparent distress Constitutional Narrative: Class III obesity HEENT normocephalic, head/scalp atraumatic, moist oral mucous membranes and oropharynxnormal Eyes EOMs intact bilaterally Neck supple and no JVD Lymph Lymphatic: no lymphedema noted Resp normal respiratory effort, normal air movement and clear to auscultation bilaterally Cardio regular rate, regular rhythm, S1 normal heart sound, S2 normal heart sound and no murmurs GI GI Narrative: abdomen moderately distended, tympanitic to percussion, no guarding or rebound tenderness. Extremity normal capillary refill and no clubbing, cyanosis or edema General Extremity: no tenderness to palpation of joints or extremities Skin General Skin Exam: no breakdown Neuro CN's II-XII intact bilaterally and no focal motor deficits Motor Exam: general weakness Psych thought process normal, cooperative and affect normal Appearance: appropriate Assessment & Plan Assessment/Plan (1) Abdominal pain, acute, left lower quadrant: (2) Colon distention: PLAN: Plan #Abdominal distention in the setting of abdominal pain, nausea and diarrhea * Nausea and diarrhea have resolved. However he still has significantly distended abdomen. * CT of the abdomen and pelvis with gaseous distention of transverse colon without wall thickening and possible mesenteric adenitis as well as IVC filter with possible thrombosis below the filter with numerous abdominal wall collaterals. There was also a large right-sided stool burden * CT of the abdomen from 2023 also showed the distended colon. 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 Patient also liquid diet but we will hold in light of the abdominal distention. Continue gentle hydration with IV fluids. * General surgery consulted yesterday, he had a small bowel follow through which showed no evidenceof obstruction. * will start on clear liquid diet and advance slowly as tolerated. * #Hyponatremia: resolved. #Hypokalemia: Potassium is 3.1. Will replace and trend. #History of seizure disorder: On lacosamide and zonisamide as well as Lamictal and Keppra. 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 On Coumadin. INR is therapeutic today. CT scan showed IVCfilter with possible thrombosis below the filter withnumerous abdominal wall collaterals indicatingthat this likely chronic. #Hypothyroidism: On Synthroid #GERD: On PPI #DVT prophylaxis: On Coumadin and INR therapeutic. Charges/Coding Visit Charges Inpatient E&M: 28523 Subs Hosp L2 03/01/25 1106 Danae Stanton MD Cosigner Signature (if applicable): CC: ~ Signed [facility]07-26-2025 Radiology Diagnostic study note [facility] Imaging Services [address] [place] [address] Small Bowel Series Only MR#: [id number] Acct: [id number] Name: EDER BREEN Rep #: [id number] : 1955 M 69 From: Brenton Fernando MD PCP: Dr. Hari Oneill, DO Status: AD M IN Study:Small Bowel Series Only Date of Exam: 02/28/25 Exam# [id number] Ordering Dr: Ria Stanton MD EXAM: Small-bowel series CLINICAL HISTORY: Abdominal distention TECHNIQUE: Multiple abdominal radiographs performed after administering GI contrast FINDINGS: Recent CT demonstrates dilatation of the transverse colon. There is transit of oral contrast into the colon by 1 hour indicating that there is no small bowel obstruction. Films were obtained at 3 hours which demonstrate contrastin the rectosigmoid region. As such, contrast must be traversing the distended portion of the transverse colon. An IVC filter is in place RAD/Small Bowel Series Only IMPRESSION: No evidence of large bowel or small bowel obstruction Reading [facility] CC: Dr. Hari Oneill, DO; Dr. 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 Hari Oneill, Status:AD M IN Location: [place] [address] 1 Subjective Subjective Patient seen and examined. He states he has not had any more diarrhea since yesterday and also denies abdominal pain. However he has not passed any gas andhis abdomen is quite distended. He states is the same as when he came in yesterday. Review of systems otherwise negative. I saw the patient with his nurse by his bedside. Objective Data Objective Data Vital Signs: Vital Signs Temp Pulse Resp BP Pulse Ox O2 Del Method 98.4 F 80 18 117/64 96 Room Air 02/28/25 09:25 02/28/25 09:25 02/28/25 09:25 02/28/25 09:25 02/28/25 09:25 02/28/25 09:50 Oxygen Delivery Method Room Air Weight: 299 lb 2.676 oz Body Mass Index (BMI) 40.6 Intake & Output: Intake and Output for Last 24 Hours 02/26/25 02/27/25 02/28/25 23:59 23:59 23:59 Intake Total 878.33 / 878.33 1805.83 / 1805.83 Output Total 1000 / 1000 Balance 878.33 / -121.67 805.83 / 805.83 Lab / Micro Data 02/28/25 05:35 02/28/25 05:35 Labs: Laboratory Results - last 24 hr 02/27/25 16:33: Sodium 122 L, Potassium 3.1 L, Chloride 91 L, Carbon Dioxide 20.2 L, Anion Gap 11, BUN 11, Creatinine 0.75, Estim Creat Clear Calc 122.07, Est GFR (MDRD) Non-Af 96, BUN/Creatinine Ratio 14.1, Glucose 134 H, Serum Osmolality 255 L, Calcium 8.1 02/27/25 17:01: Urine Osmolality 303, Ur Random Sodium 51, Urine Potassium 9.3, Urine Chloride 39, Urine Urea Nitrogen 285 02/27/25 20:08: Sodium 125 L, Potassium 3.2 L, Chloride 94 L, Carbon Dioxide 20.8 L, Anion Gap 10, BUN 10, Creatinine 0.76, Estim Creat Clear Calc 122.07, Est GFR (MDRD) Non-Af 96, BUN/Creatinine Ratio 12.7, Glucose 120 H, Calcium 8.3 02/28/25 00:10: Sodium 128 L, Potassium 3.2 L, Chloride 97 L, Carbon Dioxide 20.5 L, Anion Gap 10, BUN 10, Creatinine 0.70, Estim Creat Clear Calc 122.07, Est GFR (MDRD) Non-Af 99, BUN/Creatinine Ratio 14.3, Glucose 111 H, Calcium 8.5 02/28/25 05:35: WBC 6.3, RBC 3.72 L, Hgb 11.0 L, Hct 32.3 L, MCV 86.8, MCH 29.6,MCHC 34.1, RDW Std Deviation 43.3, RDW Coeff of Vaishnavi 13.9, Plt Count 188, MPV 9.2, Immature Gran % (Auto) 0.500, Neut % (Auto) 72.4 H, Lymph % (Auto) 16.5 L, Saline % (Auto) 7.3, Eos % (Auto) 3.0, Baso % (Auto) 0.3, Absolute Neuts (auto) 4.5, Absolute Lymphs (auto) 1.03, Nucleated RBC % 0, PT 27.1 H, INR 2.5, Sodium 132 L, Potassium 3.3, Chloride 102, Carbon Dioxide 20.6 L, Anion Gap 10, BUN 9, Creatinine 0.72, Estim Creat Clear Calc 120.80, Est GFR (MDRD) Non-Af 98, BUN/Creatinine Ratio 12.9, Glucose 103 H, Calcium 8.4, TSH 1.500 Micro: Microbiology 02/27/25 20:20 Stool Enteric Bacteriology - Final 02/27/25 20:20 Stool Clostridioides difficile (PCR) - Final Radiography Diagnostic Testing: Radiology Impression Abdomen/Pelvis CT 02/27/25 13:15 IMPRESSION: 1. Gallstone 2. Gaseous distention of the transverse colon without wall thickening, pneumatosis or site of obstruction. No change. 3. 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 No lymphadenopathy. This can be seen with mesenteric adenitis. 4. IVC filter in place. Possible thrombosis of the IVC below the filter with numerous abdominal wall collaterals. Reading Location: [facility] Physical Exam Const alert, oriented x3 and no apparent distress Constitutional Narrative: Class III obesity HEENT normocephalic, head/scalp atraumatic, moist oral mucous membranes and oropharynxnormal Eyes EOMs intact bilaterally Neck supple and no JVD Lymph Lymphatic: no lymphedema noted Resp normal respiratory effort, normal air movement and clear to auscultation bilaterally Cardio regular rate, regular rhythm, S1 normal heart sound, S2 normal heart sound and no murmurs GI GI Narrative: abdomen moderately ditended, tympanitic to percussion, no guarding or rebound tenderness. Extremity normal capillary refill and no clubbing, cyanosis or edema General Extremity: no tenderness to palpation of joints or extremities Skin General Skin Exam: no breakdown Neuro CN's II-XII intact bilaterally and no focal motor deficits Motor Exam: general weakness Psych thought process normal, cooperative and affect normal Appearance: appropriate Assessment & Plan Assessment/Plan (1) Abdominal pain, acute, left lower quadrant: (2) Colon distention: PLAN: Plan #Abdominal distention in the setting of abdominal pain, nausea and diarrhea * Nausea and diarrhea have resolved. However he still has significantly distended abdomen. * CT of the abdomen and pelvis with gaseous distention of transverse colon without wall thickening and possible mesenteric adenitis as well as IVC filter with possible thrombosis below the filter with numerous abdominal wall collaterals. There was also a large right-sided stool burden * CT of the abdomen from 2023 also showed the distended colon. * GI on board and there is concern for COVID syndrome. Patient also liquid diet but we will hold in light of the abdominal distention. Continue gentle hydration with IV fluids. * Consult general surgery. * #Hyponatremia: sodium was 121 but is now 132. Will monitor. #Hypokalemia: Resolved #History of seizure disorder: On lacosamide and zonisamide as well as Lamictal and Keppra. 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 On Coumadin. INR was therapeutic. CT scan showed IVC filter with possible thrombosis below the filter with numerous abdominal wall collaterals indicating that this likely chronic. #Hypothyroidism: On Synthroid #GERD: On PPI #DVT prophylaxis: On Coumadin and INR therapeutic. Charges/Coding Visit Charges Inpatient E&M: 68573 Subs Hosp L3 02/28/25 1763 <Electronically signed by Danae Stanton MD> Danae Stanton MD Cosigner Signature (if applicable): CC: ~ Signed [facility] Work Phone: 1(864) 693-276507-26-2025 Progress note [facility] Medical Records Department [address] [place] [address] Progress Note 02/28/25 1407 MR#: [id number] Acct: [id number] Name: EDER BREEN Rep #:[id number] : 1955 69 From: Danae Stanton MD PCP: Dr. Hari Oneill, DO Status:AD IN Location: [place] [address] Subjective Subjective Patient seen and examined. He states he has not had any more diarrhea since yesterday and also denies abdominal pain. However he has not passed any gas andhis abdomen is quite distended. He states isthe same as when he came in yesterday. Review of systems otherwise negative. I saw the patient withhis nurse by his bedside. Objective Data Objective Data Vital Signs: Vital Signs Temp Pulse Resp BP Pulse Ox O2 Del Method 98.4 F 80 18 117/64 96 Room Air 02/28/25 09:25 02/28/25 09:25 02/28/25 09:25 02/28/25 09:25 02/28/25 09:25 02/28/25 09:50 Oxygen Delivery Method Room Air Weight: 299 lb 2.676 oz Body Mass Index (BMI) 40.6 Intake & Output: Intake and Output for Last 24 Hours 02/26/25 02/27/25 02/28/25 23:59 23:59 23:59 Intake Total 878.33 / 878.33 1805.83 / 1805.83 Output Total 1000 / 1000 Balance 878.33 / -121.67 805.83 / 805.83 Lab / Micro Data 02/28/25 05:35 02/28/25 05:35 Labs: Laboratory Results - last 24 hr 02/27/25 16:33: Sodium 122 L, Potassium 3.1 L, Chloride 91 L, Carbon Dioxide 20.2 L, Anion Gap 11, BUN 11, Creatinine 0.75, Estim Creat Clear Calc 122.07, Est GFR (MDRD) Non-Af 96, BUN/Creatinine Ratio 14.1, Glucose 134 H, Serum Osmolality 255 L, Calcium 8.1 02/27/25 17:01: Urine Osmolality 303, Ur Random Sodium 51, Urine Potassium 9.3, Urine Chloride 39, Urine Urea Nitrogen 285 02/27/25 20:08: Sodium 125 L, Potassium 3.2 L, Chloride 94 L, Carbon Dioxide 20.8 L, Anion Gap 10, BUN 10, Creatinine 0.76, Estim Creat Clear Calc 122.07, Est GFR (MDRD) Non-Af 96, BUN/Creatinine Ratio 12.7, Glucose 120 H, Calcium 8.3 02/28/25 00:10: Sodium 128 L, Potassium 3.2 L, Chloride 97 L, Carbon Dioxide 20.5 L, Anion Gap 10, BUN 10, Creatinine 0.70, Estim Creat Clear Calc 122.07, Est GFR (MDRD) Non-Af 99, BUN/Creatinine Ratio 14.3, Glucose 111 H, Calcium 8.5 02/28/25 05:35: WBC 6.3, RBC 3.72 L, Hgb 11.0 L, Hct 32.3 L, MCV 86.8, MCH 29.6,MCHC 34.1, RDW Std Deviation 43.3, RDW Coeff of Vaishnavi 13.9, Plt Count 188, MPV 9.2, Immature Gran % (Auto) 0.500, Neut % (Auto) 72.4 H, Lymph % (Auto) 16.5 L, Saline % (Auto) 7.3, Eos % (Auto) 3.0, Baso % (Auto) 0.3, Absolute Neuts (auto) 4.5, Absolute Lymphs (auto) 1.03, Nucleated RBC % 0, PT 27.1 H, INR 2.5, Sodium 132 L, Potassium 3.3, Chloride 102, Carbon Dioxide 20.6 L, Anion Gap 10, BUN 9, Creatinine 0.72, Estim Creat Clear Calc 120.80, Est GFR (MDRD) Non-Af 98, BUN/Creatinine Ratio 12.9, Glucose 103 H, Calcium 8.4, TSH 1.500 Micro: Microbiology 02/27/25 20:20 Stool Enteric Bacteriology - Final 02/27/25 20:20 Stool Clostridioides difficile (PCR) - Final Radiography Diagnostic Testing: Radiology Impression Abdomen/Pelvis CT 02/27/25 13:15 IMPRESSION: 1. Gallstone 2. Gaseous distention of the transverse colon without wall thickening, pneumatosis or site of obstruction. No change. 3. 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 No lymphadenopathy. This can be seen with mesenteric adenitis. 4. IVC filter in place. Possible thrombosis of the IVC below the filter with numerous abdominal wall collaterals. Reading Location: [facility] Physical Exam Const alert, oriented x3 and no apparent distress Constitutional Narrative: Class III obesity HEENT normocephalic, head/scalp atraumatic, moist oral mucous membranes and oropharynxnormal Eyes EOMs intact bilaterally Neck supple and no JVD Lymph Lymphatic: no lymphedema noted Resp normal respiratory effort, normal air movement and clear to auscultation bilaterally Cardio regular rate, regular rhythm, S1 normal heart sound, S2 normal heart sound and no murmurs GI GI Narrative: abdomen moderately ditended, tympanitic to percussion, no guarding or rebound tenderness. Extremity normal capillary refill and no clubbing, cyanosis or edema General Extremity: no tenderness to palpation of joints or extremities Skin General Skin Exam: no breakdown Neuro CN's II-XII intact bilaterally and no focal motor deficits Motor Exam: general weakness Psych thought process normal, cooperative and affect normal Appearance: appropriate Assessment & Plan Assessment/Plan (1) Abdominal pain, acute, left lower quadrant: (2) Colon distention: PLAN: Plan #Abdominal distention in the setting of abdominal pain, nausea and diarrhea * Nausea and diarrhea have resolved. However he still has significantly distended abdomen. * CT of the abdomen and pelvis with gaseous distention of transverse colon without wall thickening and possible mesenteric adenitis as well as IVC filter with possible thrombosis below the filter with numerous abdominal wall collaterals. There was also a large right-sided stool burden * CT of the abdomen from 2023 also showed the distended colon. * GI on board and there is concern for COVID syndrome. Patient also liquid diet but we will hold inlight of the abdominal distention. Continue gentle hydration with IV fluids. * Consult general surgery. * #Hyponatremia: sodium was 121 but is now 132. Will monitor. #Hypokalemia: Resolved #History of seizure disorder: On lacosamide and zonisamide as well as Lamictal and Keppra. 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 On Coumadin. INR was therapeutic. CT scan showed IVC filter with possible thrombosis below the filter with numerous abdominal wall collaterals indicating that this likely chronic. #Hypothyroidism: On Synthroid #GERD: On PPI #DVT prophylaxis: On Coumadin and INR therapeutic. Charges/Coding Visit Charges Inpatient E&M: [id number] [facility] 02/28/25 1459 Danae Stanton MD Cosigner Signature (if applicable): CC: ~ Signed [facility]07-25-2025 Discharge summary Author Khang Osuna [facility] Note Date/Time February 27, 2025 3:13 pm [facility] Medical Records Department [address] [place] [address] Emergency Department Summary 02/27/25 MR#: [id number] Acct: [id number] Name: EDER BREEN Rep #:[id number] : 1955 69 From: Khang Osuna MD PCP: Dr. Hari Oneill, DO Status:AD M IN [facility] H[facility] HPI - GI History of Present Illness Chief Complaint: Abd Pain Informant: patient and EMS Narrative Narrative: Patient states he presents for left lower quadrant abdominal pain that he woke up with this morning along with some nausea. No vomiting. He is had several bouts of diarrhea no blood. Denies any known fevers or sick contacts. No travel out of the area. He is a limited historian, basically answers everythingwith yes/no questions until he talks about the fact that he has been drinking lots of water and then after urinating he feels like he needs to keep drinking. He cannot tell me how long this has been going on but it has happened in the past. States he is not a diabetic. Denies any radiation of his abdominal pain into his back. No chest symptoms or dyspnea. [facility] Medical History Loss of one eye Wears glasses Cancer Thyroid disease Arthritis Prostate disease Bladder disease Low iron High cholesterol Diarrhea Gastric reflux Non-smoker History of pain when walking Heart murmur Localized swelling of both lower legs Abnormal biliary HIDA scan Anxiety and depression HTN (hypertension) History of DVT of lower extremity Seizure disorder Home Medications ?Medication ?Instructions ?Recorded ?Last Taken ?Type lamotrigine 200 mg tablet 200 mg PO BID SEIZURES 03/1203/21/24 History (Lamictal) lacosamide 200 mg tablet 200 mg PO BID SEIZURES 09/1703/10/24 History zonisamide 100 mg capsule 300 mg PO BID SEIZURES 09/1703/20/24 History warfarin 7.5 mg tablet 7.5 mg PO DAILY BLOOD THINNE R 09/12/21 03/16/24 History Held on 03/21/24. Instructions: Resume on 04/04/24. fluoxetine 40 mg capsule 40 mg PO DAILY DEPRESSION 03/10/24 History levetiracetam 750 mg tablet 1,500 mg PO BID SEIZURES 0 03/11/24 03/21/24 History levothyroxine 88 mcg tablet 75 mcg PO DAILY THYROID 03/21/24 History potassium chloride 20 mEq/15 mL 20 meq (15 mL) PO BID #450 mL 03/11/24 Unknown Rx oral liquid cyanocobalamin-liver extract tablet 1 tab PO DAILY Unknown History ferrous fumarate 55 mg (18 mg 18 mg PO DAILY 03/19/24 Unknown History iron) tablet,extended release furosemide 40 mg tablet 40 mg PO DAILY 03/19/24 Unkn own History pantoprazole 40 mg tablet,delayed 40 mg PO DAILY 08/14 /24 Unknown History release (Protonix) ibuprofen 600 mg tablet 600 mg PO Q6H PRN fever or p ain 03/21/24 Unknown Rx #20 tabs Allergy/AdvReac Type Severity Reaction Status Date / Time No Known Allergies Allergy Verified 02/27/25 09:55 Surgical History Hx of colonoscopy History of vascular access device Hx of vascular surgery Hx of left cataract extraction Social History household members: spouse Smoking Status: Never smoker ROS ROS ED Constitutional Constitutional ED: Reports fatigue; Denies chills or fever(s) Eyes Eyes: Denies change in vision or diplopia ENT ENT ED: Denies rhinorrhea or sore throat Cardiovascular Cardiovascular: Reports leg edema; Denies chest pain or palpitations Respiratory/Chest Respiratory/Chest: Denies cough or dyspnea Gastrointestinal Gastrointestinal: Reports abdominal pain, diarrhea and nausea; Denies hematochezia, melena or vomiting Genitourinary Genitourinary ED: Denies dysuria or hematuria Musculoskeletal Musculoskeletal: Denies back pain or neck pain Integumentary Denies abscess or rash Neurologic Neurologic: Denies headache(s), paresthesias or weakness Psychiatric Psychiatric: Denies anxiety or suicidal thoughts Endocrine Endocrinology: Reports polydipsia and polyuria EXAM Physical Exam Const Vital Signs: 02/27/25 09:56 02/27/25 11:50 02/27/25 13:00 Temperature 97.3 F L Temperature Source Temporal Pulse Rate 86 71 70 Respiratory Rate 25 H 17 Blood Pressure 167/76 H 142/72 H 154/78 H Blood Pressure Mean 106 95 103 Pulse Ox 97 97 98 Oxygen Delivery Method Room Air Room Air Room Air Positive well nourished, well developed and obese General Appearance ED: well developed and NAD Nutritional Appearance: obese HEENT Reports moist mucous membranes normocephalic and atraumatic Eyes PERRL and EOMs intact bilaterally Neck full ROM and supple Resp normal respiratory effort and clear to auscultation bilaterally Cardio regular rate, regular rhythm and no murmurs Rate: Negative for tachycardic GI non-tender GI Narrative: Obese versus distended abdomen. Hypoactive bowel sounds. No tenderness. No pulsatile mass palpable but obesity/distention limits exam. Otherwise normal inspection. No Shade sign. Auscultation: hypoactive bowel sounds Palpation: soft Back/Spine no CVA tenderness General Back: other FROM Extremity General Extremety ED: Yes edema; Negative for pulses abnormal or tenderness General Extremity: edema bilateral lower extremity Details: moderate (With symmetric changes of chronic stasis dermatitis, no tenderness); Negative for pulses abnormal Neuro oriented x3, CN's II-XII intact bilaterally and no sensory deficits noted Sensorium / Orientation: awake and alert Motor Exam: strength 5/5 throughout Psych thought process normal Psych Narrative: Flat affect Skin no rashes or lesions noted and no wounds MDM MDM MDM Narrative Medical decision making narrative: Patient says he is in pain, he is not necessarily in a severe amount of pain, but he indicates that it seems to be relatively focal in the left lower quadrant. However he is not tender. This brings a stone into the differential as well as other intestinal/intra-abdominal etiologies, so distended and relatively obese that it is hard to rule out a AAA or diverticulitis. For thesereasons ordered a CT of the abdomen and pelvis with IV contrast not just without, I reviewed the images and the report which I agree with, he has a significantly distended transverse colon that is probably responsible for his distention, but there is no sign of inflammation, perforation, or obvious transition point/obstruction. He has a gallstone but he is not having biliary colic here for me. His labs are noted, sodium is 121 which is the main reason Ithink he needs to be admitted, and his potassium is 3.0 we started replacing both of those while in the emergency department. Liver enzymes and lipase are normal, his beta hydroxybutyrate is normal which was sent because he has a bicarb that is just below 20. 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 He is therapeutic on his INR 2.5. Given his lack of abdominal tenderness and vomiting, I do not think he needs to have any emergent intervention on the CT findings of partial colonic distention. Discussed with hospitalist, will admit to PCU. Lab Data Attestation: I reviewed the patient's lab results. Labs: Laboratory Results - last 24 hr 02/27/25 02/27/25 10:15 11:09 WBC 8.3 RBC 3.77 L Hgb 11.0 L Hct 32.5 L MCV 86.2 MCH 29.2 MCHC 33.8 RDW Std Deviation 43.1 RDW Coeff of Vaishnavi 13.8 Plt Count 193 MPV 8.9 Immature Gran % (Auto) 0.600 Neut % (Auto) 71.4 H Lymph % (Auto) 16.7 L Saline % (Auto) 9.2 Eos % (Auto) 1.9 Baso % (Auto) 0.2 Absolute Neuts (auto) 5.9 Absolute Lymphs (auto) 1.39 Nucleated RBC % 0 PT 27.7 H INR 2.5 Sodium 121 L Potassium 3.0 L Chloride 89 L Carbon Dioxide 19.7 L Anion Gap 12 BUN 15 Creatinine 0.81 Estim Creat Clear Calc 118.12 Est GFR (MDRD) Non-Af 94 BUN/Creatinine Ratio 18.2 Glucose 100 H Lactic Acid 1.4 Calcium 8.0 Total Bilirubin 0.38 AST 29 ALT 24 Alkaline Phosphatase 113 Total Protein 6.1 Albumin 3.8 Globulin 2.3 Albumin/Globulin Ratio 1.6 b-Hydroxybutyric mmol/L 0.1 Urine Color Yellow Urine Clarity Clear Urine pH 7.0 Ur Specific [place] 1.010 Urine Protein 15 H Urine Glucose (UA) Normal Urine Ketones Negative Urine Occult Blood Negative Urine Nitrite Negative Urine Bilirubin Negative Urine Urobilinogen Normal Ur Leukocyte Esterase Negative Urine RBC 0 SEEN Urine WBC 0 SEEN Ur Squamous Epith Cells 0 SEEN Urine Bacteria 0 SEEN Urine Mucus 0 SEEN ABG Data ABG results: ABG 02/27/25 11:34 Specimen Type SAIGE Sample Site Not entered VBG pH 7.38 VBG pO2 55 H VBG HCO3 21 L VBG Total CO2 22 L VBG O2 Sat (Calc) 88 H VBG Base Excess -5 L POC Mix VBG pCO2 Pt Tmp 34.8 L O2 Delivery Device Not entered Radiography Diagnostic Testing: Clinical Impression(s) from Imaging Studies Abdomen/Pelvis CT 02/27/25 13:15 IMPRESSION: 1. Gallstone 2. Gaseous distention of the transverse colon without wall thickening, pneumatosis or site of obstruction. No change. 3. 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 No lymphadenopathy. This can be seen with mesenteric adenitis. 4. IVC filter in place. Possible thrombosis of the IVC below the filter with numerous abdominal wall collaterals. Reading Location: [facility] Management Discussion w/another healthcare provider: Hospitalist Discharge Plan Triage Chief Complaint: Abd Pain ED Provider: Khang Osuna Dx/Rx/DC Orders Clinical Impression: Hyponatremia, Hypokalemia, Colon distention, Abdominal pain, acute, left lower quadrant, Warfarin anticoagulation Primary Care Provider: Hari Oneill Disposition Disposition: Acute Care Hospital [facility] What to do if you have Problems For any increased pain, shortness of breath, bleeding, nausea or vomiting, chestpain, or any unexpected problems, contact your Primary Care Provider. Call [facility] ([phone]) or report to the closest Emergency Room. Call 911 if necessary. 02/27/25 1513 <Electronically signed by Khang Osuna MD> Cosigner Signature (if applicable): CC: Dr. Hari Oneill, DO ~ Signed [facility] Work Phone: [phone] 763-329807-25-2025 History and physical note Author Lisa Mike [facility] Note Date/Time February 27, 2025 2:39 pm [facility] Medical Records Department [address] [place] [address] H&P Exam - Hospitalist 02/27/25 1426 MR#: [id number] Acct: [id number] Name: EDER BREEN Rep #:[id number] : 1955 69 From: Lisa Mike MD PCP: Dr. Hari Oneill, Status:RE G ER Location: ED HPI - General General Date of Admission: 02/27/25 Date of Service: 02/27/25 Chief Complaint: Abdominal pain, nausea, diarrhea HPI Narrative EDER BREEN, is a 69-year-old male history of DVT, seizure disorder, hypothyroidism, depression, GERD, lower extremity edema presented [facility] ED 02/27/2025 with left lower quadrant abdominal pain that he woke up with this morning and nausea. Also had several bouts of diarrhea. No fever or sick contacts. Has been drinking a lot of water and then after he urinates will feel like he needs to keep drinking. He is unsure how long this has been going on. In the ED temp 97.3, heart rate 86 and blood pressure 167/76. Respiratory rate 25 and pulse ox 97% on room air. CBC with white bloodcell count of 8.3, hemoglobin 11, INR 2.5, sodium of 121, no values since March2024 when his sodium was 135, potassium of 3. Kidney function normal and liver function within normal limits. UA does not appear infectious. Beta hydroxybutyrate negative and VBG with a pH of 7.38, bicarb of 21 and total CO2 of 22. CT abdomen and pelvis with gaseous distention of transverse colon without wall thickening, possibly mesenteric adenitis as well as IVC filter withpossible thrombosis below the filter with numerous abdominal wall collaterals. Hospitalist contacted for admission. Patient evaluated bedside. He reports hisdiarrhea has been going on for a while however abdominal pain and nausea startedthis morning, abdominal pain may be slightly better in the ED but still feeling nauseous though no emesis. Denies any fevers at home, has chronic swelling in lower extremities but ROS otherwise negative. of of note patient reported to me that he has been drinking a lot of water but he denied excessive thirst or recent medication changes and said he is trying to drink more water so that he remains full so he does not eat as much. [facility] Medical History Loss of one eye Wears glasses Cancer Thyroid disease Arthritis Prostate disease Bladder disease Low iron High cholesterol Diarrhea Gastric reflux Non-smoker History of pain when walking Heart murmur Localized swelling of both lower legs Abnormal biliary HIDA scan Anxiety and depression HTN (hypertension) History of DVT of lower extremity Seizure disorder Home Medications ?Medication ?Instructions ?Recorded ?Last Taken ?Type lamotrigine 200 mg tablet 200 mg PO BID SEIZURES 03/1203/21/24 History (Lamictal) lacosamide 200 mg tablet 200 mg PO BID SEIZURES 09/1703/10/24 History zonisamide 100 mg capsule 300 mg PO BID SEIZURES 09/1703/20/24 History warfarin 7.5 mg tablet 7.5 mg PO DAILY BLOOD THINNE R 09/12/21 03/16/24 History Held on 03/21/24. Instructions: Resume on 04/04/24. fluoxetine 40 mg capsule 40 mg PO DAILY DEPRESSION 03/10/24 History levetiracetam 750 mg tablet 1,500 mg PO BID SEIZURES 0 03/11/24 03/21/24 History levothyroxine 88 mcg tablet 75 mcg PO DAILY THYROID 03/21/24 History potassium chloride 20 mEq/15 mL 20 meq (15 mL) PO BID #450 mL 03/11/24 Unknown Rx oral liquid cyanocobalamin-liver extract tablet 1 tab PO DAILY Unknown History ferrous fumarate 55 mg (18 mg 18 mg PO DAILY 03/19/24 Unknown History iron) tablet,extended release furosemide 40 mg tablet 40 mg PO DAILY 03/19/24 Unkn own History pantoprazole 40 mg tablet,delayed 40 mg PO DAILY 03/19 Unknown History release (Protonix) ibuprofen 600 mg tablet 600 mg PO Q6H PRN fever or p ain 03/21/24 Unknown Rx #20 tabs Allergy/AdvReac Type Severity Reaction Status Date / Time No Known Allergies Allergy Verified 02/27/25 09:55 Surgical History Hx of colonoscopy History of vascular access device Hx of vascular surgery Hx of left cataract extraction Social History household members: spouse Smoking Status: Never smoker ROS ROS Narrative General: Denies fever/chills HENT: Denies headache, denies stuffy nose, denies sore throat EYES: Denies changes in vision Resp: Denies cough, denies shortness of breath Cardiac: Denies chest pain GI: Some abdominal pain mostly in left lower quadrant, has had frequent diarrhearecently but usually suffers from constipation, some nausea with no emesis : Denies changes in urination Extremity: Chronic lower extremity swelling MSK: Denies weakness Neuro: Denies any numbness/tingling Heme: Denies any bleeding or bruising Skin: Denies rashes Psychiatric: No complaints voiced Vital Signs Vital Signs Vital Signs: 02/27/25 09:56 02/27/25 11:50 02/27/25 13:00 Temperature 97.3 F L Temperature Source Temporal Pulse Rate 86 71 70 Respiratory Rate 25 H 17 Blood Pressure 167/76 H 142/72 H 154/78 H Blood Pressure Mean 106 95 103 Pulse Ox 97 97 98 Oxygen Delivery Method Room Air Room Air Room Air Weight Weight: 133.2 kg Body Mass Index (BMI) 39.8 Physical Exam Narrative General: Alert, oriented, no apparent distress HEENT: Atraumatic, normocephalic Eyes: Keeps right eye closed, left eye no acute abnormalities appreciated Neck: Supple Respiratory: No significant wheezes or rhonchi, normal respiratory effort Cardiovascular: Regular rate and rhythm GI: Distended, did not seem to be having pain on palpation and no rebound, guarding, rigidity Extremities: 1+ lower extremity edema with chronic changes Musculoskeletal: Moving all extremities Neuro: No overt focal neurological deficits Skin: Chronic lower extremity changes Psych: Cooperative Results Lab / Micro Data 02/27/25 10:15 02/27/25 10:15 Labs: Laboratory Results - last 24 hr 02/27/25 10:15: WBC 8.3, RBC 3.77 L, Hgb 11.0 L, Hct 32.5 L, MCV 86.2, MCH 29.2,MCHC 33.8, RDW Std Deviation 43.1, RDW Coeff of Vaishnavi 13.8, Plt Count 193, MPV 8.9, Immature Gran % (Auto) 0.600, Neut % (Auto) 71.4 H, Lymph % (Auto) 16.7 L, Saline % (Auto) 9.2, Eos % (Auto) 1.9, Baso % (Auto) 0.2, Absolute Neuts (auto) 5.9, Absolute Lymphs (auto) 1.39, Nucleated RBC % 0, PT 27.7 H, INR 2.5, Sodium 121 L, Potassium 3.0 L, Chloride 89 L, Carbon Dioxide 19.7 L, Anion Gap 12, BUN 15, Creatinine 0.81, Estim Creat Clear Calc 118.12, Est GFR (MDRD) Non-Af 94, BUN/Creatinine Ratio 18.2, Glucose 100 H, Lactic Acid 1.4, Calcium 8.0, Total Bilirubin 0.38, AST 29, ALT 24, Alkaline Phosphatase 113, Total Protein 6.1, Albumin 3.8, Globulin 2.3, Albumin/Globulin Ratio 1.6, b-Hydroxybutyric mmol/L 0.1 02/27/25 11:09: Urine Color Yellow, Urine Clarity Clear, Urine pH 7.0, Ur Specific [place] 1.010, Urine Protein 15 H, Urine Glucose (UA) Normal, Urine Ketones Negative, Urine Occult Blood Negative, Urine Nitrite Negative, Urine Bilirubin Negative, Urine Urobilinogen Normal, Ur Leukocyte Esterase Negative, Urine RBC 0 SEEN, Urine WBC 0 SEEN, Ur Squamous Epith Cells 0 SEEN, Urine Bacteria 0 SEEN, Urine Mucus 0 SEEN ABG Data ABG results: ABG 02/27/25 11:34 Specimen Type SAIGE Sample Site Not entered VBG pH 7.38 VBG pO2 55 H VBG HCO3 21 L VBG Total CO2 22 L VBG O2 Sat (Calc) 88 H VBG Base Excess -5 L POC Mix VBG pCO2 Pt Tmp 34.8 L O2 Delivery Device Not entered Imaging Radiology Impression Abdomen/Pelvis CT 02/27/25 13:15 IMPRESSION: 1. Gallstone 2. Gaseous distention of the transverse colon without wall thickening, pneumatosis or site of obstruction. No change. 3. 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 No lymphadenopathy. This can be seen with mesenteric adenitis. 4. IVC filter in place. Possible thrombosis of the IVC below the filter with numerous abdominal wall collaterals. Reading Location: [id number] Assessment & Plan Assessment/Plan (1) Hyponatremia: (2) Abdominal pain: (3) Hypokalemia: PLAN: Plan # Abdominal pain/nausea/diarrhea -CT abdomen and pelvis with gaseous distention of transverse colon without wall thickening, possibly mesenteric adenitis as well as IVC filter with possible thrombosis below the filter with numerous abdominal wall collaterals -Patient appears to have large right-sided stool burden but not on the left, unclear etiology, also queried mesenteric adenitis -CT scan from 2023 also showed the distended colon, unclear etiology -Will stool studies -IV fluids -Antiemetics and supportive care -Full liquid diet, advance as tolerated -Check TSH - Will consult GI given the distention with right sided stool burden but not on left the chronic diarrhea and possible mesenteric adenitis # Hyponatremia of uncertain chronicity -Sodium of 121, no values for the past 1 year so unclear how long this has been going on -Patient does note increased thirst and drinking in excess amount of water -It is also possible that this could be related to one of his antiepileptics or antidepressants -IV fluids as above -Trend BMPs -Serum osmole's -Urine studies -Will hold fluoxetine at this time #Hypokalemia -Replace -Repeat in the AM #Seizure disorder -Has Lamictal, lacosamide, zonisamide, and Keppra listed on home med list, patient unsure which she is taking, awaiting med rec update -Continue home regimen # History of DVT with IVC filter -Appears to be on Coumadin, therapeutic with an INR of 2.5 -Will continue Coumadin once med rec up-to-date -IVC filter with possible thrombosis below the filter with numerous abdominal wall collaterals #Depression/anxiety -Med rec not updated it appears previously was on Prozac, holding home antidepressant given patient's hyponatremia pending further workup, may need to switch agents prior to discharge but this will depend on further workup and clinical course - Will need to verify with patient's home meds are for final recs #Hypothyroidism -Continue Synthroid #GERD -Continue PPI #DVT ppx: Patient therapeutic on Coumadin, not indicated Lisa Mike MD Charges/Coding Visit Charges Inpatient E&M: 30847 Init Hosp L2 02/27/25 1433 <Electronically signed by Lisa Mike MD> Cosigner Signature (if applicable): CC: Dr. Hari Oneill, DO; Dr. Lisa Mike MD~ Signed [facility] Work Phone: 1(393) 884-271607-25-2025 Evaluation note* Diagnosis Onset Date Resolution Status Admit Date Abdominal distension acute February 27, 2025 2:27pm Abdominal pain acute February 27, 2025 2:27pm Abdominal pain, acute, left lower quadrant acute February 27, 2025 2:27pm Colon distention acute February 2:27pm Hypokalemia acute February 27 2:27pm Hyponatremia acute February 27, 2 025 2:27pm [facility] Work Phone: 1(894) 423-706907-25-2025 Evaluation note* Diagnosis Onset Date Resolution Status Admit Date Abdominal distension acute February 27, 2025 2:27pm Abdominal pain acute February 27, 2025 2:27pm Abdominal pain, acute, left lower quadrant acute February 27, 2025 2:27pm Colon distention acute February 2:27pm Hypokalemia acute February 27 2:27pm Hyponatremia acute February 27, 2 025 2:27pm Gallstone acute March 05 3:57pm Generalized weakness acute March 05, 2025 3:57pm Hyponatremia acute March 05 025 3:57pm [facility] Work Phone: 1([phone]) 662-913307-25-2025 Evaluation note* Diagnosis Onset Date Resolution Status Admit Date Abdominal distension resolved February 27, 2025 2:27pm Abdominal pain resolved February 27, 2025 2:27pm Abdominal pain, acute, left lower quadrant resolved February 27, 2025 2:27pm Colon distention resolved February 2:27pm Hypokalemia resolved February 27 2:27pm Hyponatremia resolved February 27, 025 2:27pm Gallstone acute March 08 2:49pm Generalized weakness acute 2024 2:49pm Abdominal distension resolved 2024 2:49pm Abdominal pain resolved March 2:49pm Abdominal pain, acute, left lower quadrant resolved March 08, 2025 2:49pm Hyponatremia resolved March 08, 2025 2:49pm [facility] Work Phone: 1(284) 837-451007-25-2025 Discharge summary [facility] Medical Records Department [address] [place] [address] Emergency Department Summary 02/27/25 MR#: [id number] Acct: [id number] Name: EDER BREEN Rep #:[id number] : 1955 69 From: Khang Osuna MD PCP: Dr. Hari Oneill, DO Status:AD IN Location: [place] [id number] HPI HPI - GI History of Present Illness Chief Complaint: Abd Pain Informant: patient and EMS Narrative Narrative: Patient states he presents for left lower quadrant abdominal pain that he woke up with this morningalong with some nausea. No vomiting. He is had several bouts of diarrhea no blood. Denies any knownfevers or sick contacts. No travel out of the area. He is a limited historian, basically answers everythingwith yes/no questions until he talks about the fact that he has been drinking lots of water and then after urinating he feels like he needs to keep drinking. He cannot tell me how long this has been going on but it has happened in the past. States he is not a diabetic. Denies any radiation of his abdominal pain into his back. No chest symptoms or dyspnea. [facility] Medical History Loss of one eye Wears glasses Cancer Thyroid disease Arthritis Prostate disease Bladder disease Low iron High cholesterol Diarrhea Gastric reflux Non-smoker History of pain when walking Heart murmur Localized swelling of both lower legs Abnormal biliary HIDA scan Anxiety and depression HTN (hypertension) History of DVT of lower extremity Seizure disorder Home Medications ?Medication ?Instructions ?Recorded ?Last Taken ?Type lamotrigine 200 mg tablet 200 mg PO BID SEIZURES 03/1203/21/24 History (Lamictal) lacosamide 200 mg tablet 200 mg PO BID SEIZURES 09/1703/10/24 History zonisamide 100 mg capsule 300 mg PO BID SEIZURES 09/1703/20/24 History warfarin 7.5 mg tablet 7.5 mg PO DAILY BLOOD THINNE R 09/12/21 03/16/24 History Held on 03/21/24. Instructions: Resume on 04/04/24. fluoxetine 40 mg capsule 40 mg PO DAILY DEPRESSION 03/10/24 History levetiracetam 750 mg tablet 1,500 mg PO BID SEIZURES 0 03/11/24 03/21/24 History levothyroxine 88 mcg tablet 75 mcg PO DAILY THYROID 03/21/24 History potassium chloride 20 mEq/15 mL 20 meq (15 mL) PO BID #450 mL 03/11/24 Unknown Rx oral liquid cyanocobalamin-liver extract tablet 1 tab PO DAILY Unknown History ferrous fumarate 55 mg (18 mg 18 mg PO DAILY 03/19/24 Unknown History iron) tablet,extended release furosemide 40 mg tablet 40 mg PO DAILY 03/19/24 Unkn own History pantoprazole 40 mg tablet,delayed 40 mg PO DAILY 03/19 Unknown History release (Protonix) ibuprofen 600 mg tablet 600 mg PO Q6H PRN fever or p ain 03/21/24 Unknown Rx #20 tabs Allergy/AdvReac Type Severity Reaction Status Date / Time No Known Allergies Allergy Verified 02/27/25 09:55 Surgical History Hx of colonoscopy History of vascular access device Hx of vascular surgery Hx of left cataract extraction Social History household members: spouse Smoking Status: Never smoker ROS ROS ED Constitutional Constitutional ED: Reports fatigue; Denies chills or fever(s) Eyes Eyes: Denies change in vision or diplopia ENT ENT ED: Denies rhinorrhea or sore throat Cardiovascular Cardiovascular: Reports leg edema; Denies chest pain or palpitations Respiratory/Chest Respiratory/Chest: Denies cough or dyspnea Gastrointestinal Gastrointestinal: Reports abdominal pain, diarrhea and nausea; Denies hematochezia, melena or vomiting Genitourinary Genitourinary ED: Denies dysuria or hematuria Musculoskeletal Musculoskeletal: Denies back pain or neck pain Integumentary Denies abscess or rash Neurologic Neurologic: Denies headache(s), paresthesias or weakness Psychiatric Psychiatric: Denies anxiety or suicidal thoughts Endocrine Endocrinology: Reports polydipsia and polyuria EXAM Physical Exam Const Vital Signs: 02/27/25 09:56 02/27/25 11:50 02/27/25 13:00 Temperature 97.3 F L Temperature Source Temporal Pulse Rate 86 71 70 Respiratory Rate 25 H 17 Blood Pressure 167/76 H 142/72 H 154/78 H Blood Pressure Mean 106 95 103 Pulse Ox 97 97 98 Oxygen Delivery Method Room Air Room Air Room Air Positive well nourished, well developed and obese General Appearance ED: well developed and NAD Nutritional Appearance: obese HEENT Reports moist mucous membranes normocephalic and atraumatic Eyes PERRL and EOMs intact bilaterally Neck full ROM and supple Resp normal respiratory effort and clear to auscultation bilaterally Cardio regular rate, regular rhythm and no murmurs Rate: Negative for tachycardic GI non-tender GI Narrative: Obese versus distended abdomen. Hypoactive bowel sounds. No tenderness. No pulsatile mass palpable but obesity/distention limits exam. Otherwise normal inspection. No Otis sign. Auscultation: hypoactive bowel sounds Palpation: soft Back/Spine no CVA tenderness General Back: other FROM Extremity General Extremety ED: Yes edema; Negative for pulses abnormal or tenderness General Extremity: edema bilateral lower extremity Details: moderate (With symmetric changes of chronic stasis dermatitis, no tenderness); Negative for pulses abnormal Neuro oriented x3, CN's II-XII intact bilaterally and no sensory deficits noted Sensorium / Orientation: awake and alert Motor Exam: strength 5/5 throughout Psych thought process normal Psych Narrative: Flat affect Skin no rashes or lesions noted and no wounds MDM MDM MDM Narrative Medical decision making narrative: Patient says he is in pain, he is not necessarily in a severe amount of pain, but he indicates thatit seems to be relatively focal in the left lower quadrant. However he is not tender. This brings astone into the differential as well as other intestinal/intra-abdominal etiologies, so distended and relatively obese that it is hard to rule out a AAA or diverticulitis. For thesereasons ordered a CT of the abdomen and pelvis with IV contrast not just without, I reviewed the images and the report which I agree with, he has a significantly distended transverse colon that is probably responsible for his distention, but there is no sign of inflammation, perforation, or obvious transition point/obstruction. He has a gallstone but he is not having biliary colic here for me. His labs are noted, sodium is 121 which is the main reason Ithink he needs to be admitted, and his potassium is 3.0 we started replacing both of those while in the emergency department. Liver enzymes and lipase are normal,his beta hydroxybutyrate is normal which was sent because he has a bicarb that is just below 20. 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 He is therapeutic on his INR 2.5. Given his lack of abdominal tenderness and vomiting, I do not think he needs to have any emergent intervention on the CT findings of partial colonic distention. Discussed with hospitalist, will admit to PCU. Lab Data Attestation: I reviewed the patient's lab results. Labs: Laboratory Results - last 24 hr 02/27/25 02/27/25 10:15 11:09 WBC 8.3 RBC 3.77 L Hgb 11.0 L Hct 32.5 L MCV 86.2 MCH 29.2 MCHC 33.8 RDW Std Deviation 43.1 RDW Coeff of Vaishnavi 13.8 Plt Count 193 MPV 8.9 Immature Gran % (Auto) 0.600 Neut % (Auto) 71.4 H Lymph % (Auto) 16.7 L Saline % (Auto) 9.2 Eos % (Auto) 1.9 Baso % (Auto) 0.2 Absolute Neuts (auto) 5.9 Absolute Lymphs (auto) 1.39 Nucleated RBC % 0 PT 27.7 H INR 2.5 Sodium 121 L Potassium 3.0 L Chloride 89 L Carbon Dioxide 19.7 L Anion Gap 12 BUN 15 Creatinine 0.81 Estim Creat Clear Calc 118.12 Est GFR (MDRD) Non-Af 94 BUN/Creatinine Ratio 18.2 Glucose 100 H Lactic Acid 1.4 Calcium 8.0 Total Bilirubin 0.38 AST 29 ALT 24 Alkaline Phosphatase 113 Total Protein 6.1 Albumin 3.8 Globulin 2.3 Albumin/Globulin Ratio 1.6 b-Hydroxybutyric mmol/L 0.1 Urine Color Yellow Urine Clarity Clear Urine pH 7.0 Ur Specific [place] 1.010 Urine Protein 15 H Urine Glucose (UA) Normal Urine Ketones Negative Urine Occult Blood Negative Urine Nitrite Negative Urine Bilirubin Negative Urine Urobilinogen Normal Ur Leukocyte Esterase Negative Urine RBC 0 SEEN Urine WBC 0 SEEN Ur Squamous Epith Cells 0 SEEN Urine Bacteria 0 SEEN Urine Mucus 0 SEEN ABG Data ABG results: ABG 02/27/25 11:34 Specimen Type SAIGE Sample Site Not entered VBG pH 7.38 VBG pO2 55 H VBG HCO3 21 L VBG Total CO2 22 L VBG O2 Sat (Calc) 88 H VBG Base Excess -5 L POC Mix VBG pCO2 Pt Tmp 34.8 L O2 Delivery Device Not entered Radiography Diagnostic Testing: Clinical Impression(s) from Imaging Studies Abdomen/Pelvis CT 02/27/25 13:15 IMPRESSION: 1. Gallstone 2. Gaseous distention of the transverse colon without wall thickening, pneumatosis or site of obstruction. No change. 3. 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 No lymphadenopathy. This can be seen with mesenteric adenitis. 4. IVC filter in place. Possible thrombosis of the IVC below the filter with numerous abdominal wall collaterals. Reading Location: [id number] Management Discussion w/another healthcare provider: Hospitalist Discharge Plan Triage Chief Complaint: Abd Pain ED Provider: Khang Osuna Dx/Rx/DC Orders Clinical Impression: Hyponatremia, Hypokalemia, Colon distention, Abdominal pain, acute, left lower quadrant, Warfarin anticoagulation Primary Care Provider: Hari Oneill Disposition Disposition: Acute Care Hospital [facility] What to do if you have Problems For any increased pain, shortness of breath, bleeding, nausea or vomiting, chestpain, or any unexpected problems, contact your Primary Care Provider. Call [facility] ([phone]) or report tothe closest Emergency Room. Call 911 if necessary. 02/27/25 1513 Cosigner Signature (if applicable): CC: Dr. Hari Oneill, DO ~ Signed [facility]07-25-2025 History and physical note [facility] Medical Records Department [address] [place] [address] H&P Exam - Hospitalist 02/27/25 1426 MR#: [id number] Acct: [id number] Name: EDER BREEN Rep #:[id number] : 1955 69 From: Lisa Mike MD PCP: Dr. Hari Oneill, Status:RE G ER Location: ED HPI - General General Date of Admission: 02/27/25 Date of Service: 02/27/25 Chief Complaint: Abdominal pain, nausea, diarrhea HPI Narrative EDER BREEN, is a 69-year-old male history of DVT, seizure disorder, hypothyroidism, depression, GERD, lower extremity edema presented [facility] ED 02/27/2025 with left lower quadrant abdominal pain that he woke up with this morning and nausea. Also had several bouts of diarrhea. No fever or sick contacts. Has been drinking a lot of water and then after he urinates will feel like he needs to keep drinking. He is unsure how long this has been going on. In the ED temp 97.3, heart rate 86 and blood pressure 167/76. Respiratory rate 25 and pulse ox 97% on room air. CBC with white bloodcell count of 8.3, hemoglobin 11, INR 2.5, sodium of 121, no values since March2024 when his sodium was 135, potassium of 3. Kidney function normal and liver function within normal limits. UA does not appear infectious. Beta hydroxybutyrate negative and VBG with a pH of 7.38, bicarb of 21and total CO2 of 22. CT abdomen and pelvis with gaseous distention of transverse colon without wallthickening, possibly mesenteric adenitis as well as IVC filter withpossible thrombosis below the filter with numerous abdominal wall collaterals. Hospitalist contacted for admission. Patient evaluated bedside. He reports hisdiarrhea has been going on for a while however abdominal pain and nausea sta rtedthis morning, abdominal pain may be slightly better in the ED but still feeling nauseous thoughno emesis. Denies any fevers at home, has chronic swelling in lower extremities but ROS otherwise negative. of of note patient reported to me that he has been drinking a lot of water but he denied excessive thirst or recent medication changes and said he is trying to drink more water so that he remains full so he does not eat as much. [facility] Medical History Loss of one eye Wears glasses Cancer Thyroid disease Arthritis Prostate disease Bladder disease Low iron High cholesterol Diarrhea Gastric reflux Non-smoker History of pain when walking Heart murmur Localized swelling of both lower legs Abnormal biliary HIDA scan Anxiety and depression HTN (hypertension) History of DVT of lower extremity Seizure disorder Home Medications ?Medication ?Instructions ?Recorded ?Last Taken ?Type lamotrigine 200 mg tablet 200 mg PO BID SEIZURES 03/1203/21/24 History (Lamictal) lacosamide 200 mg tablet 200 mg PO BID SEIZURES 09/1703/10/24 History zonisamide 100 mg capsule 300 mg PO BID SEIZURES 09/1703/20/24 History warfarin 7.5 mg tablet 7.5 mg PO DAILY BLOOD THINNE R 09/12/21 03/16/24 History Held on 03/21/24. Instructions: Resume on 04/04/24. fluoxetine 40 mg capsule 40 mg PO DAILY DEPRESSION 03/10/24 History levetiracetam 750 mg tablet 1,500 mg PO BID SEIZURES 0 03/11/24 03/21/24 History levothyroxine 88 mcg tablet 75 mcg PO DAILY THYROID 03/21/24 History potassium chloride 20 mEq/15 mL 20 meq (15 mL) PO BID #450 mL 03/11/24 Unknown Rx oral liquid cyanocobalamin-liver extract tablet 1 tab PO DAILY Unknown History ferrous fumarate 55 mg (18 mg 18 mg PO DAILY 03/19/24 Unknown History iron) tablet,extended release furosemide 40 mg tablet 40 mg PO DAILY 03/19/24 Unkn own History pantoprazole 40 mg tablet,delayed 40 mg PO DAILY 03/19 Unknown History release (Protonix) ibuprofen 600 mg tablet 600 mg PO Q6H PRN fever or p ain 03/21/24 Unknown Rx #20 tabs Allergy/AdvReac Type Severity Reaction Status Date / Time No Known Allergies Allergy Verified 02/27/25 09:55 Surgical History Hx of colonoscopy History of vascular access device Hx of vascular surgery Hx of left cataract extraction Social History household members: spouse Smoking Status: Never smoker ROS ROS Narrative General: Denies fever/chills HENT: Denies headache, denies stuffy nose, denies sore throat EYES: Denies changes in vision Resp: Denies cough, denies shortness of breath Cardiac: Denies chest pain GI: Some abdominal pain mostly in left lower quadrant, has had frequent diarrhearecently but usually suffers from constipation, some nausea with no emesis : Denies changes in urination Extremity: Chronic lower extremity swelling MSK: Denies weakness Neuro: Denies any numbness/tingling Heme: Denies any bleeding or bruising Skin: Denies rashes Psychiatric: No complaints voiced Vital Signs Vital Signs Vital Signs: 02/27/25 09:56 02/27/25 11:50 02/27/25 13:00 Temperature 97.3 F L Temperature Source Temporal Pulse Rate 86 71 70 Respiratory Rate 25 H 17 Blood Pressure 167/76 H 142/72 H 154/78 H Blood Pressure Mean 106 95 103 Pulse Ox 97 97 98 Oxygen Delivery Method Room Air Room Air Room Air Weight Weight: 133.2 kg Body Mass Index (BMI) 39.8 Physical Exam Narrative General: Alert, oriented, no apparent distress HEENT: Atraumatic, normocephalic Eyes: Keeps right eye closed, left eye no acute abnormalities appreciated Neck: Supple Respiratory: No significant wheezes or rhonchi, normal respiratory effort Cardiovascular: Regular rate and rhythm GI: Distended, did not seem to be having pain on palpation and no rebound, guarding, rigidity Extremities: 1+ lower extremity edema with chronic changes Musculoskeletal: Moving all extremities Neuro: No overt focal neurological deficits Skin: Chronic lower extremity changes Psych: Cooperative Results Lab / Micro Data 02/27/25 10:15 02/27/25 10:15 Labs: Laboratory Results - last 24 hr 02/27/25 10:15: WBC 8.3, RBC 3.77 L, Hgb 11.0 L, Hct 32.5 L, MCV 86.2, MCH 29.2,MCHC 33.8, RDW Std Deviation 43.1, RDW Coeff of Vaishnavi 13.8, Plt Count 193, MPV 8.9, Immature Gran % (Auto) 0.600, Neut % (Auto) 71.4 H, Lymph % (Auto) 16.7 L, Saline % (Auto) 9.2, Eos % (Auto) 1.9, Baso % (Auto) 0.2, Absolute Neuts (auto) 5.9, Absolute Lymphs (auto) 1.39, Nucleated RBC % 0, PT 27.7 H, INR 2.5, Sodium 121 L, Potassium 3.0 L, Chloride 89 L, Carbon Dioxide 19.7 L, Anion Gap 12, BUN 15, Creatinine 0.81, Estim Creat Clear Calc 118.12, Est GFR (MDRD) Non- Af 94, BUN/Creatinine Ratio 18.2, Glucose 100 H, Lactic Acid 1.4, Calcium 8.0, Total Bilirubin 0.38, AST 29, ALT 24, Alkaline Phosphatase 113, Total Protein 6.1, Albumin 3.8, Globulin 2.3, Albumin/Globulin Ratio 1.6, b-Hydroxybutyric mmol/L 0.1 02/27/25 11:09: Urine Color Yellow, Urine Clarity Clear, Urine pH 7.0, Ur Specific [place] 1.010, Urine Protein 15 H, Urine Glucose (UA) Normal, Urine Ketones Negative, Urine Occult Blood Negative, Urine Nitrite Negative, Urine Bilirubin Negative, Urine Urobilinogen Normal, Ur Leukocyte Esterase Negative, Urine RBC 0 SEEN, Urine WBC 0 SEEN, Ur Squamous Epith Cells 0 SEEN, Urine Bacteria 0 SEEN, Urine Mucus 0 SEEN ABG Data ABG results: ABG 02/27/25 11:34 Specimen Type SAIGE Sample Site Not entered VBG pH 7.38 VBG pO2 55 H VBG HCO3 21 L VBG Total CO2 22 L VBG O2 Sat (Calc) 88 H VBG Base Excess -5 L POC Mix VBG pCO2 Pt Tmp 34.8 L O2 Delivery Device Not entered Imaging Radiology Impression Abdomen/Pelvis CT 02/27/25 13:15 IMPRESSION: 1. Gallstone 2. Gaseous distention of the transverse colon without wall thickening, pneumatosis or site of obstruction. No change. 3. 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 No lymphadenopathy. This can be seen with mesenteric adenitis. 4. IVC filter in place. Possible thrombosis of the IVC below the filter with numerous abdominal wall collaterals. Reading Location: [id number] Assessment & Plan Assessment/Plan (1) Hyponatremia: (2) Abdominal pain: (3) Hypokalemia: PLAN: Plan # Abdominal pain/nausea/diarrhea -CT abdomen and pelvis with gaseous distention of transverse colon without wall thickening, possibly mesenteric adenitis as well as IVC filter with possible thrombosis below the filter with numerous abdominal wall collaterals -Patient appears to have large right-sided stool burden but not on the left, unclear etiology, alsoqueried mesenteric adenitis -CT scan from 2023 also showed the distended colon, unclear etiology -Will stool studies -IV fluids -Antiemetics and supportive care -Full liquid diet, advance as tolerated -Check TSH - Will consult GI given the distention with right sided stool burden but not on left the chronic diarrhea and possible mesenteric adenitis # Hyponatremia of uncertain chronicity -Sodium of 121, no values for the past 1 year so unclear how long this has been going on -Patient does note increased thirst and drinking in excess amount of water -It is also possible that this could be related to one of his antiepileptics or antidepressants -IV fluids as above -Trend BMPs -Serum osmole's -Urine studies -Will hold fluoxetine at this time #Hypokalemia -Replace -Repeat in the AM #Seizure disorder -Has Lamictal, lacosamide, zonisamide, and Keppra listed on home med list, patient unsure which sheis taking, awaiting med rec update -Continue home regimen # History of DVT with IVC filter -Appears to be on Coumadin, therapeutic with an INR of 2.5 -Will continue Coumadin once med rec up-to-date -IVC filter with possible thrombosis below the filter with numerous abdominal wall collaterals #Depression/anxiety -Med rec not updated it appears previously was on Prozac, holding home antidepressant given patient's hyponatremia pending further workup, may need to switch agents prior to discharge but this will depend on further workup and clinical course - Will need to verify with patient's home meds are for final recs #Hypothyroidism -Continue Synthroid #GERD -Continue PPI #DVT ppx: Patient therapeutic on Coumadin, not indicated Lisa Mike MD Charges/Coding Visit Charges Inpatient E&M: 87581 Init Hosp L2 02/27/25 1439 Cosigner Signature (if applicable): CC: Dr. Hari Oneill DO; Dr. Lisa Mike MD~ Signed [facility]07-25-2025 Radiology Diagnostic study note [facility] Imaging Services [address] [place] [address] Abdomen/Pelvis W IV Cont ONLY MR#: [id number] Acct: [id number] Name: EDER BREEN Rep #: [id number] : 1955 M 69 From: Renetta Vera MD PCP: Dr. Hari Oneill DO Status: RE G ER Study:Abdomen/Pelvis W IV Cont ONLY Date of E xam: 02/27/25 Exam# [id number] Ordering Dr: Ervin Osuna MD PROCEDURE: ABDOMEN/PELVIS W IV CONT ONLY 02/27/2025 REASON FOR EXAM: PAIN LLQ W/O TENDERNESS TECHNIQUE: ABDOMEN/PELVIS W IV CONT ONLY Coronal and Sagittal reconstruction series were provided. CONTRAST: Isovue 300 VOLUME: 98 mL One or more dose reduction techniques were used (e.g., Automated exposure control, adjustment of the mA and/or kV according to patient size, use of iterative reconstruction technique. RADIATION DOSE SUMMARY: CTDlvol: 36 mGy DLP: 1378 mGycm COMPARISON: March 11, 2024 FINDINGS: Lung bases: Clear Liver: Normal Gallbladder: 21 mm high-density calculus is seen near the gallbladder neck. No gallbladder distention or pericholecystic fluid. No biliary duct dilation. Spleen: Spleen is normal. Hilar splenule is present. Pancreas: Normal Adrenals: Normal Kidneys: No collecting system dilation, calculus or solid mass. Bladder: Normal Reproductive Organs: Unremarkable Bowel: Stomach is normal. Small bowel is not dilated. Formed stool is seen in the ascending colon. Gaseous distention transverse colon with no site of obstruction. Descending colon, sigmoid are decompressed. Appendix: Normal Lymph nodes: None appear enlarged. 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 Vasculature: Aorta is atherosclerotic without aneurysm. IVC filter is in place in the midabdomen. Below the IVC filter the caliber of the IVC is flattened and possibly thrombosed. Numerous abdominal wall venous collateralsare seen with the largest towards the groin. Peritoneum / Retroperitoneum: No free air, free fluid or mass. Bones: Mild disc space narrowing marginal endplate spurring vacuum disc phenomenon T11-12, L1/2, L2/3 and L4/5. Mild infiltration of the subcutaneous fat of the anterior abdominal wall. CT/Abdomen/Pelvis W IV Cont ONLY IMPRESSION: 1. Gallstone 2. Gaseous distention of the transverse colon without wall thickening, pneumatosis or site of obstruction. No change. 3. 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 No lymphadenopathy. This can be seen with mesenteric adenitis. 4. IVC filter in place. Possible thrombosis of the IVC below the filter with numerous abdominal wall collaterals. Reading Location: [facility] CC: Dr. Khang Osuna MD; Dr. 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 Hari Oneill DO Status:AD M IN Location: [facility] [id number] HPI HPI - GI History of Present Illness Chief Complaint: Abd Pain Informant: patient and EMS Narrative Narrative: Patient states he presents for left lower quadrant abdominal pain that he woke up with this morning along with some nausea. No vomiting. He is had several bouts of diarrhea no blood. Denies any known fevers or sick contacts. No travel out of the area. He is a limited historian, basically answers everythingwith yes/no questions until he talks about the fact that he has been drinking lots of water and then after urinating he feels like he needs to keep drinking. He cannot tell me how long this has been going on but it has happened in the past. States he is not a diabetic. Denies any radiation of his abdominal pain into his back. No chest symptoms or dyspnea. [facility] Medical History Loss of one eye Wears glasses Cancer Thyroid disease Arthritis Prostate disease Bladder disease Low iron High cholesterol Diarrhea Gastric reflux Non-smoker History of pain when walking Heart murmur Localized swelling of both lower legs Abnormal biliary HIDA scan Anxiety and depression HTN (hypertension) History of DVT of lower extremity Seizure disorder Home Medications ?Medication ?Instructions ?Recorded ?Last Taken ?Type lamotrigine 200 mg tablet 200 mg PO BID SEIZURES 03/1203/21/24 History (Lamictal) lacosamide 200 mg tablet 200 mg PO BID SEIZURES 09/1703/10/24 History zonisamide 100 mg capsule 300 mg PO BID SEIZURES 09/1703/20/24 History warfarin 7.5 mg tablet 7.5 mg PO DAILY BLOOD THINNE R 09/12/21 03/16/24 History Held on 03/21/24. Instructions: Resume on 04/04/24. fluoxetine 40 mg capsule 40 mg PO DAILY DEPRESSION 03/10/24 History levetiracetam 750 mg tablet 1,500 mg PO BID SEIZURES 0 03/11/24 03/21/24 History levothyroxine 88 mcg tablet 75 mcg PO DAILY THYROID 03/21/24 History potassium chloride 20 mEq/15 mL 20 meq (15 mL) PO BID #450 mL 03/11/24 Unknown Rx oral liquid cyanocobalamin-liver extract tablet 1 tab PO DAILY Unknown History ferrous fumarate 55 mg (18 mg 18 mg PO DAILY 03/19/24 Unknown History iron) tablet,extended release furosemide 40 mg tablet 40 mg PO DAILY 03/19/24 Unkn own History pantoprazole 40 mg tablet,delayed 40 mg PO DAILY 03/19 Unknown History release (Protonix) ibuprofen 600 mg tablet 600 mg PO Q6H PRN fever or p ain 03/21/24 Unknown Rx #20 tabs Allergy/AdvReac Type Severity Reaction Status Date / Time No Known Allergies Allergy Verified 02/27/25 09:55 Surgical History Hx of colonoscopy History of vascular access device Hx of vascular surgery Hx of left cataract extraction Social History household members: spouse Smoking Status: Never smoker ROS ROS ED Constitutional Constitutional ED: Reports fatigue; Denies chills or fever(s) Eyes Eyes: Denies change in vision or diplopia ENT ENT ED: Denies rhinorrhea or sore throat Cardiovascular Cardiovascular: Reports leg edema; Denies chest pain or palpitations Respiratory/Chest Respiratory/Chest: Denies cough or dyspnea Gastrointestinal Gastrointestinal: Reports abdominal pain, diarrhea and nausea; Denies hematochezia, melena or vomiting Genitourinary Genitourinary ED: Denies dysuria or hematuria Musculoskeletal Musculoskeletal: Denies back pain or neck pain Integumentary Denies abscess or rash Neurologic Neurologic: Denies headache(s), paresthesias or weakness Psychiatric Psychiatric: Denies anxiety or suicidal thoughts Endocrine Endocrinology: Reports polydipsia and polyuria EXAM Physical Exam Const Vital Signs: 02/27/25 09:56 02/27/25 11:50 02/27/25 13:00 Temperature 97.3 F L Temperature Source Temporal Pulse Rate 86 71 70 Respiratory Rate 25 H 17 Blood Pressure 167/76 H 142/72 H 154/78 H Blood Pressure Mean 106 95 103 Pulse Ox 97 97 98 Oxygen Delivery Method Room Air Room Air Room Air Positive well nourished, well developed and obese General Appearance ED: well developed and NAD Nutritional Appearance: obese HEENT Reports moist mucous membranes normocephalic and atraumatic Eyes PERRL and EOMs intact bilaterally Neck full ROM and supple Resp normal respiratory effort and clear to auscultation bilaterally Cardio regular rate, regular rhythm and no murmurs Rate: Negative for tachycardic GI non-tender GI Narrative: Obese versus distended abdomen. Hypoactive bowel sounds. No tenderness. No pulsatile mass palpable but obesity/distention limits exam. Otherwise normal inspection. No Otis sign. Auscultation: hypoactive bowel sounds Palpation: soft Back/Spine no CVA tenderness General Back: other FROM Extremity General Extremety ED: Yes edema; Negative for pulses abnormal or tenderness General Extremity: edema bilateral lower extremity Details: moderate (With symmetric changes of chronic stasis dermatitis, no tenderness); Negative for pulses abnormal Neuro oriented x3, CN's II-XII intact bilaterally and no sensory deficits noted Sensorium / Orientation: awake and alert Motor Exam: strength 5/5 throughout Psych thought process normal Psych Narrative: Flat affect Skin no rashes or lesions noted and no wounds MDM MDM MDM Narrative Medical decision making narrative: Patient says he is in pain, he is not necessarily in a severe amount of pain, but he indicates that it seems to be relatively focal in the left lower quadrant. However he is not tender. This brings a stone into the differential as well as other intestinal/intra-abdominal etiologies, so distended and relatively obese that it is hard to rule out a AAA or diverticulitis. For thesereasons ordered a CT of the abdomen and pelvis with IV contrast not just without, I reviewed the images and the report which I agree with, he has a significantly distended transverse colon that is probably responsible for his distention, but there is no sign of inflammation, perforation, or obvious transition point/obstruction. He has a gallstone but he is not having biliary colic here for me. His labs are noted, sodium is 121 which is the main reason Ithink he needs to be admitted, and his potassium is 3.0 we started replacing both of those while in the emergency department. Liver enzymes and lipase are normal, his beta hydroxybutyrate is normal which was sent because he has a bicarb that is just below 20. 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 He is therapeutic on his INR 2.5. Given his lack of abdominal tenderness and vomiting, I do not think he needs to have any emergent intervention on the CT findings of partial colonic distention. Discussed with hospitalist, will admit to PCU. Lab Data Attestation: I reviewed the patient's lab results. Labs: Laboratory Results - last 24 hr 02/27/25 02/27/25 10:15 11:09 WBC 8.3 RBC 3.77 L Hgb 11.0 L Hct 32.5 L MCV 86.2 MCH 29.2 MCHC 33.8 RDW Std Deviation 43.1 RDW Coeff of Vaishnavi 13.8 Plt Count 193 MPV 8.9 Immature Gran % (Auto) 0.600 Neut % (Auto) 71.4 H Lymph % (Auto) 16.7 L Saline % (Auto) 9.2 Eos % (Auto) 1.9 Baso % (Auto) 0.2 Absolute Neuts (auto) 5.9 Absolute Lymphs (auto) 1.39 Nucleated RBC % 0 PT 27.7 H INR 2.5 Sodium 121 L Potassium 3.0 L Chloride 89 L Carbon Dioxide 19.7 L Anion Gap 12 BUN 15 Creatinine 0.81 Estim Creat Clear Calc 118.12 Est GFR (MDRD) Non-Af 94 BUN/Creatinine Ratio 18.2 Glucose 100 H Lactic Acid 1.4 Calcium 8.0 Total Bilirubin 0.38 AST 29 ALT 24 Alkaline Phosphatase 113 Total Protein 6.1 Albumin 3.8 Globulin 2.3 Albumin/Globulin Ratio 1.6 b-Hydroxybutyric mmol/L 0.1 Urine Color Yellow Urine Clarity Clear Urine pH 7.0 Ur Specific [place] 1.010 Urine Protein 15 H Urine Glucose (UA) Normal Urine Ketones Negative Urine Occult Blood Negative Urine Nitrite Negative Urine Bilirubin Negative Urine Urobilinogen Normal Ur Leukocyte Esterase Negative Urine RBC 0 SEEN Urine WBC 0 SEEN Ur Squamous Epith Cells 0 SEEN Urine Bacteria 0 SEEN Urine Mucus 0 SEEN ABG Data ABG results: ABG 02/27/25 11:34 Specimen Type SAIGE Sample Site Not entered VBG pH 7.38 VBG pO2 55 H VBG HCO3 21 L VBG Total CO2 22 L VBG O2 Sat (Calc) 88 H VBG Base Excess -5 L POC Mix VBG pCO2 Pt Tmp 34.8 L O2 Delivery Device Not entered Radiography Diagnostic Testing: Clinical Impression(s) from Imaging Studies Abdomen/Pelvis CT 02/27/25 13:15 IMPRESSION: 1. Gallstone 2. Gaseous distention of the transverse colon without wall thickening, pneumatosis or site of obstruction. No change. 3. 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 No lymphadenopathy. This can be seen with mesenteric adenitis. 4. IVC filter in place. Possible thrombosis of the IVC below the filter with numerous abdominal wall collaterals. Reading Location: [facility] Management Discussion w/another healthcare provider: Hospitalist Discharge Plan Triage Chief Complaint: Abd Pain ED Provider: Khang Osuna Dx/Rx/DC Orders Clinical Impression: Hyponatremia, Hypokalemia, Colon distention, Abdominal pain, acute, left lower quadrant, Warfarin anticoagulation Primary Care Provider: Hari Oneill Disposition Disposition: Acute Care Hospital [facility] What to do if you have Problems For any increased pain, shortness of breath, bleeding, nausea or vomiting, chestpain, or any unexpected problems, contact your Primary Care Provider. Call [facility] ([phone]) or report to the closest Emergency Room. Call 911 if necessary. 02/27/25 1513 <Electronically signed by Khang Osuna MD> Cosigner Signature (if applicable): CC: Dr. Hari Oneill, DO ~ Signed [facility] Work Phone: 1([phone] 404-947807-25-2025 Telephone encounter Note* Telephone Encounter - Niurka Justice - 02/27/2025 11:15 AM EDT Prescription Refill Information The patient has been identified by name and date of : Yes Caregiver verified no other encounters exist for this prescription request: Yes Caregiver confirmed with patient/requestor that no other refills are due, in the near future, with this provider at this time: Yes The last office visit in the department: 10-21-24 Does the patient have a future office visit with this provider/department: yes Requested Prescriptions Pending Prescriptions Disp Refills warfarin (COUMADIN) 5 mg tablet 60 tablet 1 Si mg Tues/Fri, 7.5 mg all other days or as directed warfarin (COUMADIN) 7.5 mg tablet Si mg Tues/Fri, 7.5 mg all other days or as directed Niurka Mancilla February 27, 2025 11:16 AM [facility]07-25-2025 Miscellaneous Notes* Telephone Encounter - Niurka Justice - 02/27/2025 11:15 AM EDT Prescription Refill Information The patient has been identified by name and date of : Yes Caregiver verified no other encounters exist for this prescription request: Yes Caregiver confirmed with patient/requestor that no other refills are due, in the near future, with this provider at this time: Yes The last office visit in the department: 10-21-24 Does the patient have a future office visit with this provider/department: yes Requested Prescriptions Pending Prescriptions Disp Refills warfarin (COUMADIN) 5 mg tablet 60 tablet 1 Si mg Tues/Fri, 7.5 mg all other days or as directed warfarin (COUMADIN) 7.5 mg tablet Si mg Tues/Fri, 7.5 mg all other days or as directed Niurka Mancilla February 27, 2025 11:16 AM documented in [facility] Telephone encounter Note * Telephone Encounter - La London RN - 02/27/2025 9:08 AM EDT Pt reports severe left lower quad abdominal pain that started this morning. Pt reports dizziness, stools are pure water. States he cannot stand it anymore needs help now. Protocol recommends ER Now. Advised pt not to drive. Pt states his cannot drive him she just had surgery. Advised pt to call 911 now, and also advised to call 911 now. Both agreeable. Reason for Disposition [1] SEVERE pain (e.g., excruciating) AND [2] present > 1 hour Answer Assessment - Initial Assessment Questions 1. LOCATION: Left side lower abdominal pain near naval. This morning was drinking a lot of water. 2. RADIATION: No 3. ONSET: This morning 4. SUDDEN: Sudden 5. PATTERN: Constant since it started. 6. SEVERITY: Severe. Doubled over. 7. RECURRENT SYMPTOM: No 8. CAUSE: No idea 9. RELIEVING/AGGRAVATING FACTORS: Sharp pain. Nothing makes it better. 10. OTHER SYMPTOMS: Dizzy. No fever. Last BM today- nothing but water. Pt states he needs help now. Protocols used: Abdominal Pain - [id number] [facility]07-25-2025 Miscellaneous Notes* Telephone Encounter - La London RN - 02/27/2025 9:08 AM EDT Pt reports severe left lower quad abdominal pain that started this morning. Pt reports dizziness, stools are pure water. States he cannot stand it anymore needs help now. Protocol recommends ER Now. Advised pt not to drive. Pt states his cannot drive him she just had surgery. Advised pt to call 911 now, and also advised to call 911 now. Both agreeable. Reason for Disposition [1] SEVERE pain (e.g., excruciating) AND [2] present > 1 hour Answer Assessment - Initial Assessment Questions 1. LOCATION: Left side lower abdominal pain near naval. This morning was drinking a lot of water. 2. RADIATION: No 3. ONSET: This morning 4. SUDDEN: Sudden 5. PATTERN: Constant since it started. 6. SEVERITY: Severe. Doubled over. 7. RECURRENT SYMPTOM: No 8. CAUSE: No idea 9. RELIEVING/AGGRAVATING FACTORS: Sharp pain. Nothing makes it better. 10. OTHER SYMPTOMS: Dizzy. No fever. Last BM today- nothing but water. Pt states he needs help now. Protocols used: Abdominal Pain - [id number] documented in this encounterR[facility]07-[facility]25 History of Present illness Narrative* Emily Gregory - 02/11/2025 10:23 AM EDT POPULATION HEALTH NAVIGATION OUTREACH Action/FYI Patient needs ED follow up. Wants to see PCP only. Declined to schedule with other providers Reason for Outreach Community Monitoring/Network Navigator Pools & Phone Line: CM Pool Care Gaps due: Follow-up Appointment Patient Contacted: Spoke to patient/parent/or legal guardian Patient identified by name and : Yes Community Monitoring/Network Navigator Pools & Phone Line actions taken: Unable to find appointment within patient preferred time frame Navigation Signature: Emily Gregory Population Health Navigator February 11, 2025 10:24 AM * Bg Ford RN - 02/11/2025 9:32 AM EDTSummary: Chart review per payor request [facility] RN Patient identified by name and date of . Reason for review or outreach: Chart Review [facility] Emergency Department Utilization REQUESTED ACTION/FYI: Please see ED Utilization summary below A follow-up appointment is noted to be scheduled on 03/31/2025. We are forwarding this patient to Network Navigation to schedule a sooner PCP follow-up appointmentwithin 7 days of recent 02/10/2025 [place] ER visit. Thank you! ED DIAGNOSES/REASON(S) FOR ED USE: Upon chart review patient does not have high ER utilization with most recent being 02/10/2025 at [place] ER for multiple issues including: cellulitis, edema, urinary frequency, hx or PE, S/P IVC filter,HTN, black stool, and chronic venous statis dermatits. OTHER FINDINGS/SUMMARY: Upon chart review it appears patient had recent orthopedics appointment on 02/09/2025 and there is a population health navigation note from 01/22/2025. Patients next appointment is noted to be on 03/31/2025. Will route to navigation to move appointment within 7 days of recent ER visit to satisfy [facility] HEDIS measure. At ER visit: photo extremity right lower taken, labs obtained, blood cultures obtained, Zosyn IV given x 1, urinalysis obtained, Vancocin IV given x 1. Patient Attributed To: E Payer: [place] WATTS Action Taken: Referrals/Routed: Population Health Navigation: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 Recent DVT in the common iliac, femoral and IVC distal to the IVD filter in 01/2013 while off coumadin. Currently on coumadin and no bleeding episodes/ falls Who is transferred from [facility] for the further evaluation of his dizziness which started about 3 -4 days ago and is now re Traumatic brain injury (HCC) There is a questionabale history of around age of 3 year he was dropped on the driveway may have lost consciousness Traumatic brain injury (HCC) There is a questionabale history of around age of 3 year he was dropped on the driveway may have lost consciousness Unspecified epilepsy without mention of intractable epilepsy (HCC) Vitamin B12 deficiency 11/2013 Vitamin D deficiency normal level 11/2011 PAST SURGICAL HISTORY PAST SURGICAL HISTORY Procedure Laterality Date APPENDECTOMY HX COLONOSCOPY FLX DX W/COLLJ SPEC WHEN PFRMD 12/27/2009 Colonoscopy COLONOSCOPY FLX DX W/COLLJ SPEC WHEN PFRMD 05/03/2021 ESOPHAGOGASTRODUODENOSCOPY TRANSORAL DIAGNOSTIC 02/12/2012 EGD ESOPHAGOGASTRODUODENOSCOPY TRANSORAL DIAGNOSTIC 03/27/[address] [facility] inpt ESOPHAGOGASTRODUODENOSCOPY TRANSORAL DIAGNOSTIC 06/04/2012 EGD ESOPHAGOGASTRODUODENOSCOPY TRANSORAL DIAGNOSTIC N/A 11/13/2016 ESOPHAGOGASTRODUODENOSCOPY TRANSORAL DIAGNOSTIC 02/15/2018 EGD ESOPHAGOGASTRODUODENOSCOPY TRANSORAL DIAGNOSTIC 05/03/2021 INSJ TUNNELED CTR VAD W/SUBQ PORT AGE 5 YR/> 04/11/2012 INTRO. 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 right eye blind, injured during seizure CURRENT MEDICATIONS Current Outpatient Medications Medication Sig L.acidophilus-L.rhamnosus (PROBIOTIC) 15 billion cell capsule Take 1 capsule by mouth daily at bedtime. furosemide (LASIX) 40 mg tablet Take 1 tablet by mouth once daily. Take in the morning Non-Adherent Bandage (CURITY ABDOMINAL PAD) 5 X 9 bndg Apply 1 application to affected area once daily. Gauze Bandage (KERLIX) 4 1/2 X 147 bndg Apply 1 application to affected area once daily. lacosamide (VIMPAT) 200 mg Take 1 tablet by mouth daily with lunch AND 1 tablet every evening. Do all this for 180 days. zonisamide (ZONEGRAN) 100 mg capsule Take 4 capsules by mouth daily after lunch AND 2 capsules daily at bedtime. levETIRAcetam (KEPPRA) 750 mg tablet Take 2 tablets by mouth two times a day. lamoTRIgine (LAMICTAL) 200 mg tablet Take 1 tablet by mouth daily with lunch AND 1 tablet every evening. warfarin (COUMADIN) 5 mg tablet 5 mg Tues/Fri, 7.5 mg all other days or as directed warfarin (COUMADIN) 7.5 mg tablet 5 mg Tues/Fri, 7.5 mg all other days or as directed potassium chloride (K-TAB) 10 mEq tablet Take 1 tablet by mouth daily with breakfast. ferrous sulfate 325 mg (65 mg iron) tablet Take 1 tablet by mouth once daily. white petrolatum (AQUAPHOR ORIGINAL) 41 % topical ointment Apply to affected area two times a day. FLUoxetine (PROZAC) 40 mg capsule Take 1 capsule by mouth once daily. in the morning for mood levothyroxine (LEVOXYL) 88 mcg tablet Take 1 tablet by mouth daily before breakfast. Take on empty stomach 30 minutes before eating. For Thyroid diclofenac (VOLTAREN ARTHRITIS PAIN) 1 % topical gel Apply 2 g to affected area four times daily. cyanocobalamin, vitamin B-12, (VITAMIN B-12 ORAL) Take 1 tablet by mouth once daily. No current facility-administered medications for this visit. ALLERGIES: Doxycycline and Lactose Intolerance (Lactase) [Lactase] PERSONAL HISTORY: SOCIAL HISTORY Social History Tobacco Use Smoking status: Never Smokeless tobacco: Never Vaping Use Vaping status: Never Used Substance Use Topics Alcohol use: No Drug use: No FAMILY HISTORY: FAMILY HISTORY FAMILY HISTORY Problem Relation Age of Onset Stroke Mother Cancer Mother patient states he came from an infection due to a back injury REVIEW OF SYMPTOMS: The review of systems data was entered by the nurse and reviewed by me There are no exam notes on file for this visit. PHYSICAL EXAMINATION: General: The patient is 69 year old male, well nourished, well hydrated in no acute distress. The patient is oriented to time, place, and person. VITALS: Blood pressure 144/77, pulse 77, weight 128.8 kg (284 lb), SpO2 100%. Body mass index is 38.52 kg/m . HEENT: Normal cephalic, ataumatic, pupils are equally round, sclera are anicteric, mucous membranesare moist, oropharynx is clear. Neck has no masses, asymmetry or lymphadenopathy. Thyroid is unremarkable. Respiratory: Clear to auscultation and percussion. Normal respiratory excursion and pattern. Cardiac: Examination is regular rate and rhythm. Abdominal exam: Soft, nontender, with no palpable masses. No hepatosplenomegaly. No palpable hernias. Rectal exam: exam deferred Extremities: no clubbing, cyanosis or edema. No adenopathy. Other: LABORATORY VALUES: As Noted RADIOLOGIC STUDIES: As Noted Assessment IMPRESSION: Calculus of gallbladder without cholecystitis without obstruction Nausea Abdominal fullness Abdominal bloating Early satiety Diarrhea, unspecified type (primary encounter diagnosis) PLAN: I plan to perform upper and lower endoscopy. We discussed the risks and benefits of the planned endoscopy. I have informed the patient that complications can occur including failure to completethe endoscopy and perforation. The patient had the opportunity to ask questions concerning the planned endoscopy. My staff has also explained the procedure to the patient in understandable terms and has given the patient printed material concerning the procedure. The patient freely consents to surgery. Diagnoses: (R19.7) Diarrhea, unspecified type (primary encounter diagnosis) (K80.20) Calculus of gallbladder without cholecystitis without obstruction (R11.0) Nausea (R19.8) Abdominal fullness (R14.0) Abdominal bloating (R68.81) Early satiety My findings have been communicated to Dr. Hari Oneill DO via shared medical record. This note will be forwarded to Dr. Hari Oneill DO. Return to Clinic: The patient is instructed to follow-up with me 1 week post operatively. Jayesh Hernandez III, MD UPDATED HISTORY AND PHYSICAL EXAMINATION SERVICE DATE: 09/29/2024 SERVICE TIME: 9:59 AM PHYSICAL EXAM MUST BE COMPLETED ON ADMISSION The History and Physical (completed in the past 30 days) has been reviewed and the patient has beenexamined. The contents accurately reflect the patient's condition with the following additions or revisions since the H&P was completed. Examination indicates no changes. This H&P can be found in the attached. SIGNATURE: Jayesh Hernandez III, MD PATIENT NAME: Eder Breen DATE: September 29, 2024 TIME: 9:59 AM [facility] History and physical note * Jayesh Hernandez MD - 09/29/2024 10:15 AM EST HISTORY AND PHYSICAL Eder Breen 1955 REFERRING PHYSICIAN: Suyapa Lira APRN* CHIEF COMPLAINT: Consult HPI: The patient is a 69 year old male referred for endoscopy. When he eats it seems like food goes through him so fast. Is difficult to explain-with a normal person when they eat it takes a while to go through them. Can depend on how fast he eats and how much. Eats 4 loaves of bread in a week and a half. So fast=when drinks water after the food and feels like it just pushes through and washes him out. Has to eat right at bedtime so he can get filled up and has to be enough so that he is full to try to get through the night. States no typical meal. Ivorian goulash-filled him up for half the day. Sandwiches with Dorritos. Previously was having diarrhea frequently. As he started eating more that has made his bowel movements stiffer/more formed. Eder has undergone prior endoscopy. May 03, 2021. The patient is being seen by me today at the request of Dr. Lira for my opinion and advice regarding Calculus of gallbladder without cholecystitis without obstruction Nausea Abdominal fullness Abdominal bloating Early satiety Diarrhea, unspecified type (primary encounter diagnosis). 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 pylori infection 11/2013 Hemorrhoids History of DVT/PE 01/12/2013 - history of saddle PE in 2010 - IVC filter placed in 2011 possible in the setting of increased risk of falls while on coumadin - coumadin use complaicated by GI bleeding in the setting of supratherapeutic INR, warfarin stopped in 11/2012 - Repeat DVT involving common iliac/femoral and IVD distal tothe filter in 01/2013 while off coumadin, restarted on coumadin - Currently sub therapeutic on coumadin PLAN: -Increase coumadin to 7.5 mg daily - continue coumadin for life in the setting of PE Continue to bridge with lovenox as INR subtherapeutic. 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 sclerosis 07/2013 by echo WILBERTO (obstructive sleep apnea) Pulmonary embolism (HCC) hx of S/P insertion of IVC (inferior vena caval) filter thrombosed (S/P Lysis) Seizures (HCC) Snoring SUMMARY 01/12/2013 Mr Breen is a 58 y M with a medical history significant for: - Grade 3 Follicilar lymphoma, 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 Recent DVT in the common iliac, femoral and IVC distal to the IVD filter in 01/2013 while off coumadin. Currently on coumadin and no bleeding episodes/ falls Who is transferred from [facility] for the further evaluation of his dizziness which started about 3 -4 days ago and is now re Traumatic brain injury (HCC) There is a questionabale history of around age of 3 year he was dropped on the driveway may have lost consciousness Traumatic brain injury (HCC) There is a questionabale history of around age of 3 year he was dropped on the driveway may have lost consciousness Unspecified epilepsy without mention of intractable epilepsy (HCC) Vitamin B12 deficiency 11/2013 Vitamin D deficiency normal level 11/2011 PAST SURGICAL HISTORY PAST SURGICAL HISTORY Procedure Laterality Date APPENDECTOMY HX COLONOSCOPY FLX DX W/COLLJ SPEC WHEN PFRMD 12/27/2009 Colonoscopy COLONOSCOPY FLX DX W/COLLJ SPEC WHEN PFRMD 05/03/2021 ESOPHAGOGASTRODUODENOSCOPY TRANSORAL DIAGNOSTIC 02/12/2012 EGD ESOPHAGOGASTRODUODENOSCOPY TRANSORAL DIAGNOSTIC 03/27/[address] [facility] inpt ESOPHAGOGASTRODUODENOSCOPY TRANSORAL DIAGNOSTIC 06/04/2012 EGD ESOPHAGOGASTRODUODENOSCOPY TRANSORAL DIAGNOSTIC N/A 11/13/2016 ESOPHAGOGASTRODUODENOSCOPY TRANSORAL DIAGNOSTIC 02/15/2018 EGD ESOPHAGOGASTRODUODENOSCOPY TRANSORAL DIAGNOSTIC 05/03/2021 INSJ TUNNELED CTR VAD W/SUBQ PORT AGE 5 YR/> 04/11/2012 INTRO. 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 right eye blind, injured during seizure CURRENT MEDICATIONS Current Outpatient Medications Medication Sig L.acidophilus-L.rhamnosus (PROBIOTIC) 15 billion cell capsule Take 1 capsule by mouth daily at bedtime. furosemide (LASIX) 40 mg tablet Take 1 tablet by mouth once daily. Take in the morning Non-Adherent Bandage (CURITY ABDOMINAL PAD) 5 X 9 bndg Apply 1 application to affected area once daily. Gauze Bandage (KERLIX) 4 1/2 X 147 bndg Apply 1 application to affected area once daily. lacosamide (VIMPAT) 200 mg Take 1 tablet by mouth daily with lunch AND 1 tablet every evening. Do all this for 180 days. zonisamide (ZONEGRAN) 100 mg capsule Take 4 capsules by mouth daily after lunch AND 2 capsules daily at bedtime. levETIRAcetam (KEPPRA) 750 mg tablet Take 2 tablets by mouth two times a day. lamoTRIgine (LAMICTAL) 200 mg tablet Take 1 tablet by mouth daily with lunch AND 1 tablet every evening. warfarin (COUMADIN) 5 mg tablet 5 mg Tues/Fri, 7.5 mg all other days or as directed warfarin (COUMADIN) 7.5 mg tablet 5 mg Tues/Fri, 7.5 mg all other days or as directed potassium chloride (K-TAB) 10 mEq tablet Take 1 tablet by mouth daily with breakfast. ferrous sulfate 325 mg (65 mg iron) tablet Take 1 tablet by mouth once daily. white petrolatum (AQUAPHOR ORIGINAL) 41 % topical ointment Apply to affected area two times a day. FLUoxetine (PROZAC) 40 mg capsule Take 1 capsule by mouth once daily. in the morning for mood levothyroxine (LEVOXYL) 88 mcg tablet Take 1 tablet by mouth daily before breakfast. Take on empty stomach 30 minutes before eating. For Thyroid diclofenac (VOLTAREN ARTHRITIS PAIN) 1 % topical gel Apply 2 g to affected area four times daily. cyanocobalamin, vitamin B-12, (VITAMIN B-12 ORAL) Take 1 tablet by mouth once daily. No current facility-administered medications for this visit. ALLERGIES: Doxycycline and Lactose Intolerance (Lactase) [Lactase] PERSONAL HISTORY: SOCIAL HISTORY Social History Tobacco Use Smoking status: Never Smokeless tobacco: Never Vaping Use Vaping status: Never Used Substance Use Topics Alcohol use: No Drug use: No FAMILY HISTORY: FAMILY HISTORY FAMILY HISTORY Problem Relation Age of Onset Stroke Mother Cancer Mother patient states he came from an infection due to a back injury REVIEW OF SYMPTOMS: The review of systems data was entered by the nurse and reviewed by me There are no exam notes on file for this visit. PHYSICAL EXAMINATION: General: The patient is 69 year old male, well nourished, well hydrated in no acute distress. The patient is oriented to time, place, and person. VITALS: Blood pressure 144/77, pulse 77, weight 128.8 kg (284 lb), SpO2 100%. Body mass index is 38.52 kg/m . HEENT: Normal cephalic, ataumatic, pupils are equally round, sclera are anicteric, mucous membranesare moist, oropharynx is clear. Neck has no masses, asymmetry or lymphadenopathy. Thyroid is unremarkable. Respiratory: Clear to auscultation and percussion. Normal respiratory excursion and pattern. Cardiac: Examination is regular rate and rhythm. Abdominal exam: Soft, nontender, with no palpable masses. No hepatosplenomegaly. No palpable hernias. Rectal exam: exam deferred Extremities: no clubbing, cyanosis or edema. No adenopathy. Other: LABORATORY VALUES: As Noted RADIOLOGIC STUDIES: As Noted Assessment IMPRESSION: Calculus of gallbladder without cholecystitis without obstruction Nausea Abdominal fullness Abdominal bloating Early satiety Diarrhea, unspecified type (primary encounter diagnosis) PLAN: I plan to perform upper and lower endoscopy. We discussed the risks and benefits of the planned endoscopy. I have informed the patient that complications can occur including failure to completethe endoscopy and perforation. The patient had the opportunity to ask questions concerning the planned endoscopy. My staff has also explained the procedure to the patient in understandable terms and has given the patient printed material concerning the procedure. The patient freely consents to surgery. Diagnoses: (R19.7) Diarrhea, unspecified type (primary encounter diagnosis) (K80.20) Calculus of gallbladder without cholecystitis without obstruction (R11.0) Nausea (R19.8) Abdominal fullness (R14.0) Abdominal bloating (R68.81) Early satiety My findings have been communicated to Dr. Hari Oneill DO via shared medical record. This note will be forwarded to Dr. Hari Oneill DO. Return to Clinic: The patient is instructed to follow-up with me 1 week post operatively. Jayesh Hernandez III, MD UPDATED HISTORY AND PHYSICAL EXAMINATION SERVICE DATE: 09/29/2024 SERVICE TIME: 9:59 AM PHYSICAL EXAM MUST BE COMPLETED ON ADMISSION The History and Physical (completed in the past 30 days) has been reviewed and the patient has beenexamined. The contents accurately reflect the patient's condition with the following additions or revisions since the H&P was completed. Examination indicates no changes. This H&P can be found in the attached. SIGNATURE: Jayesh Hernandez III, MD PATIENT NAME: Eder Breen DATE: September 29, 2024 TIME: 9:59 AM [facility] History and physical note* Jayesh Hernandez MD - 09/29/2024 10:15 AM EST HISTORY AND PHYSICAL Eder Breen 1955 REFERRING PHYSICIAN: Suyapa Lira APRN* CHIEF COMPLAINT: Consult HPI: The patient is a 69 year old male referred for endoscopy. When he eats it seems like food goes through him so fast. Is difficult to explain-with a normal person when they eat it takes a while to go through them. Can depend on how fast he eats and how much. Eats 4 loaves of bread in a week and a half. So fast=when drinks water after the food and feels like it just pushes through and washes him out. Has to eat right at bedtime so he can get filled up and has to be enough so that he is full to try to get through the night. States no typical meal. [place]vorian goulash-filled him up for half the day. Sandwiches with Dorritos. Previously was having diarrhea frequently. As he started eating more that has made his bowel movements stiffer/more formed. Eder has undergone prior endoscopy. May 03, 2021. The patient is being seen by me today at the request of Dr. Lira for my opinion and advice regarding Calculus of gallbladder without cholecystitis without obstruction Nausea Abdominal fullness Abdominal bloating Early satiety Diarrhea, unspecified type (primary encounter diagnosis). 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 pylori infection 11/2013 Hemorrhoids History of DVT/PE 01/12/2013 - history of saddle PE in 2010 - IVC filter placed in 2011 possible in the setting of increased risk of falls while on coumadin - coumadin use complaicated by GI bleeding in the setting of supratherapeutic INR, warfarin stopped in 11/2012 - Repeat DVT involving common iliac/femoral and IVD distal tothe filter in 01/2013 while off coumadin, restarted on coumadin - Currently sub therapeutic on coumadin PLAN: -Increase coumadin to 7.5 mg daily - continue coumadin for life in the setting of PE Continue to bridge with lovenox as INR subtherapeutic. 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 sclerosis 07/2013 by echo WILBERTO (obstructive sleep apnea) Pulmonary embolism (HCC) hx of S/P insertion of IVC (inferior vena caval) filter thrombosed (S/P Lysis) Seizures (HCC) Snoring SUMMARY 01/12/2013 Mr Breen is a 58 y M with a medical history significant for: - Grade 3 Follicilar lymphoma, 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 Recent DVT in the common iliac, femoral and IVC distal to the IVD filter in 01/2013 while off coumadin. Currently on coumadin and no bleeding episodes/ falls Who is transferred from [facility] for the further evaluation of his dizziness which started about 3 -4 days ago and is now re Traumatic brain injury (HCC) There is a questionabale history of around age of 3 year he was dropped on the driveway may have lost consciousness Traumatic brain injury (HCC) There is a questionabale history of around age of 3 year he was dropped on the driveway may have lost consciousness Unspecified epilepsy without mention of intractable epilepsy (HCC) Vitamin B12 deficiency 11/2013 Vitamin D deficiency normal level 11/2011 PAST SURGICAL HISTORY PAST SURGICAL HISTORY Procedure Laterality Date APPENDECTOMY HX COLONOSCOPY FLX DX W/COLLJ SPEC WHEN PFRMD 12/27/2009 Colonoscopy COLONOSCOPY FLX DX W/COLLJ SPEC WHEN PFRMD 05/03/2021 ESOPHAGOGASTRODUODENOSCOPY TRANSORAL DIAGNOSTIC 02/12/2012 EGD ESOPHAGOGASTRODUODENOSCOPY TRANSORAL DIAGNOSTIC 03/27/[address] [facility] inpt ESOPHAGOGASTRODUODENOSCOPY TRANSORAL DIAGNOSTIC 06/04/2012 EGD ESOPHAGOGASTRODUODENOSCOPY TRANSORAL DIAGNOSTIC N/A 11/13/2016 ESOPHAGOGASTRODUODENOSCOPY TRANSORAL DIAGNOSTIC 02/15/2018 EGD ESOPHAGOGASTRODUODENOSCOPY TRANSORAL DIAGNOSTIC 05/03/2021 INSJ TUNNELED CTR VAD W/SUBQ PORT AGE 5 YR/> 04/11/2012 INTRO. OF CATH SUP/INF VENA CAVA 04/09/2012 IVC FILTER PAST SURGICAL HISTORY OF ? right eye blind, injured during seizure CURRENT MEDICATIONS Current Outpatient Medications Medication Sig L.acidophilus-L.rhamnosus (PROBIOTIC) 15 billion cell capsule Take 1 capsule by mouth daily at bedtime. furosemide (LASIX) 40 mg tablet Take 1 tablet by mouth once daily. Take in the morning Non-Adherent Bandage (CURITY ABDOMINAL PAD) 5 X 9 bndg Apply 1 application to affected area once daily. Gauze Bandage (KERLIX) 4 1/2 X 147 bndg Apply 1 application to affected area once daily. lacosamide (VIMPAT) 200 mg Take 1 tablet by mouth daily with lunch AND 1 tablet every evening. Do all this for 180 days. zonisamide (ZONEGRAN) 100 mg capsule Take 4 capsules by mouth daily after lunch AND 2 capsules daily at bedtime. levETIRAcetam (KEPPRA) 750 mg tablet Take 2 tablets by mouth two times a day. lamoTRIgine (LAMICTAL) 200 mg tablet Take 1 tablet by mouth daily with lunch AND 1 tablet every evening. warfarin (COUMADIN) 5 mg tablet 5 mg Tues/Fri, 7.5 mg all other days or as directed warfarin (COUMADIN) 7.5 mg tablet 5 mg Tues/Fri, 7.5 mg all other days or as directed potassium chloride (K-TAB) 10 mEq tablet Take 1 tablet by mouth daily with breakfast. ferrous sulfate 325 mg (65 mg iron) tablet Take 1 tablet by mouth once daily. white petrolatum (AQUAPHOR ORIGINAL) 41 % topical ointment Apply to affected area two times a day. FLUoxetine (PROZAC) 40 mg capsule Take 1 capsule by mouth once daily. in the morning for mood levothyroxine (LEVOXYL) 88 mcg tablet Take 1 tablet by mouth daily before breakfast. Take on empty stomach 30 minutes before eating. For Thyroid diclofenac (VOLTAREN ARTHRITIS PAIN) 1 % topical gel Apply 2 g to affected area four times daily. cyanocobalamin, vitamin B-12, (VITAMIN B-12 ORAL) Take 1 tablet by mouth once daily. No current facility-administered medications for this visit. ALLERGIES: Doxycycline and Lactose Intolerance (Lactase) [Lactase] PERSONAL HISTORY: SOCIAL HISTORY Social History Tobacco Use Smoking status: Never Smokeless tobacco: Never Vaping Use Vaping status: Never Used Substance Use Topics Alcohol use: No Drug use: No FAMILY HISTORY: FAMILY HISTORY FAMILY HISTORY Problem Relation Age of Onset Stroke Mother Cancer Mother patient states he came from an infection due to a back injury REVIEW OF SYMPTOMS: The review of systems data was entered by the nurse and reviewed by me There are no exam notes on file for this visit. PHYSICAL EXAMINATION: General: The patient is 69 year old male, well nourished, well hydrated in no acute distress. The patient is oriented to time, place, and person. VITALS: Blood pressure 144/77, pulse 77, weight 128.8 kg (284 lb), SpO2 100%. Body mass index is 38.52 kg/m . HEENT: Normal cephalic, ataumatic, pupils are equally round, sclera are anicteric, mucous membranesare moist, oropharynx is clear. Neck has no masses, asymmetry or lymphadenopathy. Thyroid is unremarkable. Respiratory: Clear to auscultation and percussion. Normal respiratory excursion and pattern. Cardiac: Examination is regular rate and rhythm. Abdominal exam: Soft, nontender, with no palpable masses. No hepatosplenomegaly. No palpable hernias. Rectal exam: exam deferred Extremities: no clubbing, cyanosis or edema. No adenopathy. Other: LABORATORY VALUES: As Noted RADIOLOGIC STUDIES: As Noted Assessment IMPRESSION: Calculus of gallbladder without cholecystitis without obstruction Nausea Abdominal fullness Abdominal bloating Early satiety Diarrhea, unspecified type (primary encounter diagnosis) PLAN: I plan to perform upper and lower endoscopy. We discussed the risks and benefits of the planned endoscopy. I have informed the patient that complications can occur including failure to completethe endoscopy and perforation. The patient had the opportunity to ask questions concerning the planned endoscopy. My staff has also explained the procedure to the patient in understandable terms and has given the patient printed material concerning the procedure. The patient freely consents to surgery. Diagnoses: (R19.7) Diarrhea, unspecified type (primary encounter diagnosis) (K80.20) Calculus of gallbladder without cholecystitis without obstruction (R11.0) Nausea (R19.8) Abdominal fullness (R14.0) Abdominal bloating (R68.81) Early satiety My findings have been communicated to Dr. Hari Oneill DO via shared medical record. This note will be forwarded to Dr. Hari Oneill DO. Return to Clinic: The patient is instructed to follow-up with me 1 week post operatively. Jayesh Hernandez III, MD UPDATED HISTORY AND PHYSICAL EXAMINATION SERVICE DATE: 09/29/2024 SERVICE TIME: 9:59 AM PHYSICAL EXAM MUST BE COMPLETED ON ADMISSION The History and Physical (completed in the past 30 days) has been reviewed and the patient has beenexamined. The contents accurately reflect the patient's condition with the following additions or revisions since the H&P was completed. Examination indicates no changes. This H&P can be found in the attached. SIGNATURE: Jayesh Hernandez III, MD PATIENT NAME: Eder Breen DATE: September 29, 2024 TIME: 9:59 AM [facility] History of Present illness Narrative* Dereck Cochran MA - 09/10/2024 12:34 PM EST POPULATION HEALTH NAVIGATION OUTREACH Action/FYI Care gaps due: AWV No answer, lvm, sent mc message. Reason for Outreach Care Gap/HCC or Scheduling Wellness Visits Care Gaps due: Medicare Annual Wellness Visit Patient Contacted: Unable or unnecessary to reach patient: Left message [employer] message sent HCC related Navigation Signature: Dereck Cochran MA September 10, 2024 12:34 PM documented in this encounterR[facility]01[facility]28-[facility] Instructions* Patient Instructions* Eyad Novoa DO - 09/02/2024 12:10 PM EST WOUND CARE INSTRUCTIONS- Eder Breen Wound location:Legs 1. Wash your hands with soap and water before and after wound care. 2. Gather all supplies needed. 3. Wash wound with Dial liquid antibacterial soap and water. Pat dry. 4. Apply to the wound base: Antibiotic ointment (like neosporin) to wound 5. Cover with : non-stick gauze, gauze pad 6. Secure dressing with: gauze wrap and radha wrap 7. Change your dressing: DAILY 8. Apply compression sleeve to right leg (given to you at appointment) RADHA WRAP/TUBI-CLOTH FOLDER HAND: Remove compression wraps if they become uncomfortable or cause a change in color or sensation to the extremity. Your wrap should always be worn from the base of the toes to 1 below the knee. Avoid sitting with your legs in a dependent position or standing for long periods of time.Attempt to lay flat and elevate your legs above the level of your heart 2-3 times daily for 30 minutes at a time. If it becomes necessary to remove the wrap, do so by unwinding it and apply clean dressing as instructed then notify the wound care center. COMPRESSION must be removed if: it becomes wet or soiled If you have numbness or tingling in your foot or toes If you have increased pain If toes become cold or discolored To give your wound the best chance to heal: - Eat three balanced meals daily focusing on the protein - Control swelling by elevating the extremity above your heart - Control your blood sugar. Keep blood sugar less than 200 - Complete your wound care instructions - Vitamin C 500 mg twice daily - Multiple Vitamin Daily - Drink a protein shake daily - premiere shakes for non-diabetic patients Premiere Clear or Glucerna for Diabetic patients and Nepro for Chronic Kidney Disease patients. - Smoking decreases the amount of oxygen delivered to tissue and can impair wound healing and/or increased risk of infection Report any of the following changes [phone] or go to the Emergency Department: Fever or chills Increased drainage Green or yellow drainage Foul odor Increased pain Hardness around the wound Redness, warmth or swelling of the surrounding tissue Color change to the wound Evenings / Weekends / Holidays If you call the wound center at the phone number provided above, please leave a detailed message that includes your full name, birthday, and phone number. We are seeing patients during the day, so wewill return your call within a 24-48 hr period in the order your call was received. There is not anon-call provider assigned to the wound center. If you have an emergency that needs to be addressed,please go the Urgent Care or the Emergency Room. Thank you for your cooperation and understanding. Due to the cold and flu season approaching us, if you have any symptoms such as a cough, fever, chills, nausea, vomiting, diarrhea, and/or body aches, please call and reschedule your appointment in the Wound Center. Plan: Follow-up next Sunday at [facility] with Dr. Novao at 11:15 [facility] History of Present illness Narrative* Eyad Novoa DO - 09/02/2024 10:45 AM EST Images from the original note were not included. Heart, Vascular and Thoracic [place] DEPARTMENT OF VASCULAR SURGERY OUTPATIENT VISIT DATE September 02, 2024 OUTPATIENT VISIT TYPE CONSULTATION SERVICE DATE: 09/02/2024 SERVICE TIME: 10:45 AM PRIMARY CARE PHYSICIAN: Hari Oneill DO REFERRING PROVIDER: Suyapa Lira [id number] [facility] [id number] Consult requested for an opinion regarding the evaluation and treatment of the above. My final impression and recommendations will be communicated back to the requesting physician by way of the shared medical record or letter via US mail. CHIEF COMPLAINT: Patient presents with: New Patient History of Present Illness: Patient is a 69 year old White male presenting for consultation, evaluation and possible treatment of leg edema.bilateral edema. Left leg is more swollen than right. He has a history of cellulitis. He is unable to tolerate compression. He was able to wear compression in the past however now has difficulty with donning and appropriate fit. He has a history of IVC filter and DVTs in the past. He has a history of IVC filter occlusion and underwent thrombolysis in 2012. He Predisposing factors included history of deep venous thrombosis. No specific history of injury or prior problems. Relieving factors include elevation of legs and reduced activity with mild improvement in symptoms. Patient admits to DVT and treatment with blood thinners. PAIN ASSESSMENT: PAIN EVALUATION No data found in the last 1 encounters. 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 pylori infection 11/2013 Hemorrhoids History of DVT/PE 01/12/2013 - history of saddle PE in 2010 - IVC filter placed in 2011 possible in the setting of increased risk of falls while on coumadin - coumadin use complaicated by GI bleeding in the setting of supratherapeutic INR, warfarin stopped in 11/2012 - Repeat DVT involving common iliac/femoral and IVD distal tothe filter in 01/2013 while off coumadin, restarted on coumadin - Currently sub therapeutic on coumadin PLAN: -Increase coumadin to 7.5 mg daily - continue coumadin for life in the setting of PE Continue to bridge with lovenox as INR subtherapeutic. 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 sclerosis 07/2013 by echo WILBERTO (obstructive sleep apnea) Pulmonary embolism (HCC) hx of S/P insertion of IVC (inferior vena caval) filter thrombosed (S/P Lysis) Seizures (HCC) Snoring SUMMARY 01/12/2013 Mr Breen is a 58 y M with a medical history significant for: - Grade 3 Follicilar lymphoma, 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 Recent DVT in the common iliac, femoral and IVC distal to the IVD filter in 01/2013 while off coumadin. Currently on coumadin and no bleeding episodes/ falls Who is transferred from [facility] for the further evaluation of his dizziness which started about 3 -4 days ago and is now re Traumatic brain injury (HCC) There is a questionabale history of around age of 3 year he was dropped on the driveway may have lost consciousness Traumatic brain injury (HCC) There is a questionabale history of around age of 3 year he was dropped on the driveway may have lost consciousness Unspecified epilepsy without mention of intractable epilepsy (HCC) Vitamin B12 deficiency 11/2013 Vitamin D deficiency normal level 11/2011 PAST SURGICAL HISTORY Procedure Laterality Date APPENDECTOMY HX COLONOSCOPY FLX DX W/COLLJ SPEC WHEN PFRMD 12/27/2009 Colonoscopy COLONOSCOPY FLX DX W/COLLJ SPEC WHEN PFRMD 05/03/2021 ESOPHAGOGASTRODUODENOSCOPY TRANSORAL DIAGNOSTIC 02/12/2012 EGD ESOPHAGOGASTRODUODENOSCOPY TRANSORAL DIAGNOSTIC 03/27/2012 EGD [facility] inpt ESOPHAGOGASTRODUODENOSCOPY TRANSORAL DIAGNOSTIC 06/04/2012 EGD ESOPHAGOGASTRODUODENOSCOPY TRANSORAL DIAGNOSTIC N/A 11/13/2016 ESOPHAGOGASTRODUODENOSCOPY TRANSORAL DIAGNOSTIC 02/15/2018 EGD ESOPHAGOGASTRODUODENOSCOPY TRANSORAL DIAGNOSTIC 05/03/2021 INSJ TUNNELED CTR VAD W/SUBQ PORT AGE 5 YR/> 04/11/2012 INTRO. OF CATH SUP/INF VENA CAVA 04/09/2012 IVC FILTER PAST SURGICAL HISTORY OF ? right eye blind, injured during seizure SOCIAL HISTORY: Social History Tobacco Use Smoking status: Never Smokeless tobacco: Never Vaping Use Vaping status: Never Used Substance Use Topics Alcohol use: No Drug use: No FAMILY HISTORY Problem Relation Age of Onset Stroke Mother Cancer Mother patient states he came from an infection due to a back injury MEDICATIONS: L.acidophilus-L.rhamnosus (PROBIOTIC) 15 billion cell capsule Take 1 capsule by mouth daily at bedtime. furosemide (LASIX) 40 mg tablet Take 1 tablet by mouth once daily. Take in the morning Non-Adherent Bandage (CURITY ABDOMINAL PAD) 5 X 9 bndg Apply 1 application to affected area once daily. Gauze Bandage (KERLIX) 4 1/2 X 147 bndg Apply 1 application to affected area once daily. lacosamide (VIMPAT) 200 mg Take 1 tablet by mouth daily with lunch AND 1 tablet every evening. Do all this for 180 days. zonisamide (ZONEGRAN) 100 mg capsule Take 4 capsules by mouth daily after lunch AND 2 capsules daily at bedtime. levETIRAcetam (KEPPRA) 750 mg tablet Take 2 tablets by mouth two times a day. lamoTRIgine (LAMICTAL) 200 mg tablet Take 1 tablet by mouth daily with lunch AND 1 tablet every evening. warfarin (COUMADIN) 5 mg tablet 5 mg Tues/Fri, 7.5 mg all other days or as directed warfarin (COUMADIN) 7.5 mg tablet 5 mg Tues/Fri, 7.5 mg all other days or as directed potassium chloride (K-TAB) 10 mEq tablet Take 1 tablet by mouth daily with breakfast. ferrous sulfate 325 mg (65 mg iron) tablet Take 1 tablet by mouth once daily. white petrolatum (AQUAPHOR ORIGINAL) 41 % topical ointment Apply to affected area two times a day. FLUoxetine (PROZAC) 40 mg capsule Take 1 capsule by mouth once daily. in the morning for mood levothyroxine (LEVOXYL) 88 mcg tablet Take 1 tablet by mouth daily before breakfast. Take on empty stomach 30 minutes before eating. For Thyroid diclofenac (VOLTAREN ARTHRITIS PAIN) 1 % topical gel Apply 2 g to affected area four times daily. cyanocobalamin, vitamin B-12, (VITAMIN B-12 ORAL) Take 1 tablet by mouth once daily. ALLERGIES: ALLERGIES Allergen Reactions Doxycycline GI Upset Lactose Intolerance* Diarrhea REVIEW of SYSTEMS: Constitutional: No weight loss, malaise or fevers. HEENT: Negative for frequent or significant headaches, No changes in hearing or vision, no nose bleeds or other nasal problems Respiratory: Positive for wheezing Cardiovascular: Negative for chest pain and palpitations and Positive for leg swelling Gatrointestinal: Negative for blood in stools or black stools and Positive for abdominal discomfort Genitourinary: No difficulty urination, nocturia >1 times per night or hematuria Musculoskeletal: Positive for joint pain Endocrine: Negative for cold or heat intolerance, polyuria, polydipsia and goiter Hematology/Lymphatic: Positive for bruises easily Neurologic: Positive for seizures Integumentary: Negative for lesions, rash, and itching. PHYSICAL EXAM: VITALS: There were no vitals taken for this visit. General: Alert, oriented, cooperative, healthy appearance Integumentary: Normal color, no rash, no lesions. HEENT: EOM, pupils equal, round and reactive. Cardiovascular: Pulse regular. Lungs: No chest deformities or chest wall tenderness. Abdomen: Not examined Extremities: Edema and Ulcers- Left leg cluster [id number]; lateral calf 3cmx1.5cm, right leg [id number] x 2cm Neurological: AAOx3. Normal cognition and motor skills. Vascular: Dorsalis Pedal Right: Normal - Left: Normal Diagnostic tests reviewed for today's visit: Most recent labs Most recent imaging IMPRESSION: Mr. Breen is a 69 year old male with post thrombotic syndrome, venous stasis ulceration, venousinsufficiency, secondary lymphedema . PLAN and RECOMMENDATIONS: Barron would benefit from Farrow wraps as he has non-healing ulcerations and significant edema Recommend continued local wound care Discussed importance of elevation and exercise Follow up in one week SIGNATURE: Eyad Novoa DO PATIENT NAME: Eder Breen DATE: September 02, 2024 TIME: 10:45 AM [facility] Telephone encounter Note * Telephone Encounter - Travis Manuel - 08/29/2024 11:16 AM EST 09-29-2024 Colon EGD Wstr [facility] dr Hernandez , provider went over all prep information and gave direct number to call with questions Travis Manuel [facility]01-[facility] Miscellaneous Notes* Telephone Encounter - Travis Manuel - 08/29/2024 11:16 AM EST 09-29-2024 Colon EGD Wstr [facility] dr Hernandez , provider went over all prep information and gave direct number to call with questions Travis Manuel [facility] History of Present illness Narrative* Jayesh Hernandez MD - 08/29/2024 10:56 AM EST HISTORY AND PHYSICAL Eder Breen 1955 REFERRING PHYSICIAN: Suyapa Lira APRN* CHIEF COMPLAINT: Consult HPI: The patient is a 69 year old male referred for endoscopy. When he eats it seems like food goes through him so fast. Is difficult to explain-with a normal person when they eat it takes a while to go through them. Can depend on how fast he eats and how much. Eats 4 loaves of bread in a week and a half. So fast=when drinks water after the food and feels like it just pushes through and washes him out. Has to eat right at bedtime so he can get filled up and has to be enough so that he is full to try to get through the night. States no typical meal. Ivorian goulash-filled him up for half the day. Sandwiches with Dorritos. Previously was having diarrhea frequently. As he started eating more that has made his bowel movements stiffer/more formed. Eder has undergone prior endoscopy. May 03, 2021. The patient is being seen by me today at the request of Dr. Lira for my opinion and advice regarding Calculus of gallbladder without cholecystitis without obstruction Nausea Abdominal fullness Abdominal bloating Early satiety Diarrhea, unspecified type (primary encounter diagnosis). 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 pylori infection 11/2013 Hemorrhoids History of DVT/PE 01/12/2013 - history of saddle PE in 2010 - IVC filter placed in 2011 possible in the setting of increased risk of falls while on coumadin - coumadin use complaicated by GI bleeding in the setting of supratherapeutic INR, warfarin stopped in 11/2012 - Repeat DVT involving common iliac/femoral and IVD distal tothe filter in 01/2013 while off coumadin, restarted on coumadin - Currently sub therapeutic on coumadin PLAN: -Increase coumadin to 7.5 mg daily - continue coumadin for life in the setting of PE Continue to bridge with lovenox as INR subtherapeutic. 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 sclerosis 07/2013 by echo WILBERTO (obstructive sleep apnea) Pulmonary embolism (HCC) hx of S/P insertion of IVC (inferior vena caval) filter thrombosed (S/P Lysis) Seizures (HCC) Snoring SUMMARY 01/12/2013 Mr Breen is a 58 y M with a medical history significant for: - Grade 3 Follicilar lymphoma, 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 Recent DVT in the common iliac, femoral and IVC distal to the IVD filter in 01/2013 while off coumadin. Currently on coumadin and no bleeding episodes/ falls Who is transferred from [facility] for the further evaluation of his dizziness which started about 3 -4 days ago and is now re Traumatic brain injury (HCC) There is a questionabale history of around age of 3 year he was dropped on the driveway may have lost consciousness Traumatic brain injury (HCC) There is a questionabale history of around age of 3 year he was dropped on the driveway may have lost consciousness Unspecified epilepsy without mention of intractable epilepsy (HCC) Vitamin B12 deficiency 11/2013 Vitamin D deficiency normal level 11/2011 PAST SURGICAL HISTORY Procedure Laterality Date APPENDECTOMY HX COLONOSCOPY FLX DX W/COLLJ SPEC WHEN PFRMD 12/27/2009 Colonoscopy COLONOSCOPY FLX DX W/COLLJ SPEC WHEN PFRMD 05/03/2021 ESOPHAGOGASTRODUODENOSCOPY TRANSORAL DIAGNOSTIC 02/12/2012 EGD ESOPHAGOGASTRODUODENOSCOPY TRANSORAL DIAGNOSTIC 03/27/[address] [facility] inpt ESOPHAGOGASTRODUODENOSCOPY TRANSORAL DIAGNOSTIC 06/04/2012 EGD ESOPHAGOGASTRODUODENOSCOPY TRANSORAL DIAGNOSTIC N/A 11/13/2016 ESOPHAGOGASTRODUODENOSCOPY TRANSORAL DIAGNOSTIC 02/15/2018 EGD ESOPHAGOGASTRODUODENOSCOPY TRANSORAL DIAGNOSTIC 05/03/2021 INSJ TUNNELED CTR VAD W/SUBQ PORT AGE 5 YR/> 04/11/2012 INTRO. OF CATH SUP/INF VENA CAVA 04/09/2012 IVC FILTER PAST SURGICAL HISTORY OF ? right eye blind, injured during seizure Current Outpatient Medications Medication Sig L.acidophilus-L.rhamnosus (PROBIOTIC) 15 billion cell capsule Take 1 capsule by mouth daily at bedtime. furosemide (LASIX) 40 mg tablet Take 1 tablet by mouth once daily. Take in the morning Non-Adherent Bandage (CURITY ABDOMINAL PAD) 5 X 9 bndg Apply 1 application to affected area once daily. Gauze Bandage (KERLIX) 4 1/2 X 147 bndg Apply 1 application to affected area once daily. lacosamide (VIMPAT) 200 mg Take 1 tablet by mouth daily with lunch AND 1 tablet every evening. Do all this for 180 days. zonisamide (ZONEGRAN) 100 mg capsule Take 4 capsules by mouth daily after lunch AND 2 capsules daily at bedtime. levETIRAcetam (KEPPRA) 750 mg tablet Take 2 tablets by mouth two times a day. lamoTRIgine (LAMICTAL) 200 mg tablet Take 1 tablet by mouth daily with lunch AND 1 tablet every evening. warfarin (COUMADIN) 5 mg tablet 5 mg Tues/Fri, 7.5 mg all other days or as directed warfarin (COUMADIN) 7.5 mg tablet 5 mg Tues/Fri, 7.5 mg all other days or as directed potassium chloride (K-TAB) 10 mEq tablet Take 1 tablet by mouth daily with breakfast. ferrous sulfate 325 mg (65 mg iron) tablet Take 1 tablet by mouth once daily. white petrolatum (AQUAPHOR ORIGINAL) 41 % topical ointment Apply to affected area two times a day. FLUoxetine (PROZAC) 40 mg capsule Take 1 capsule by mouth once daily. in the morning for mood levothyroxine (LEVOXYL) 88 mcg tablet Take 1 tablet by mouth daily before breakfast. Take on empty stomach 30 minutes before eating. For Thyroid diclofenac (VOLTAREN ARTHRITIS PAIN) 1 % topical gel Apply 2 g to affected area four times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 History of blood clots. documented in this encounterR[facility]10-[facility]24 Telephone encounter Note * Telephone Encounter - Lisa Wolf MA - 05/29/2024 5:37 PM EDT Left message for patient to return call. Lisa Wolf Ma [facility] Telephone encounter Note* Telephone Encounter - Lisa Wolf MA - 05/29/2024 5:36 PM EDT ----- Message from Alexus Galloway sent at 05/29/2024 5:15 PM EDT ----- Please increase warfarin to 5 mg only on Tuesdays and 7.5 mg on all other days. Check INR in 1 week. Dx. History of blood clots. [facility] Instructions* Patient Instructions* Skyler Adams APRN.CNS - 05/29/2024 1:11 PM EDT For leg swelling take Lasix every day in the morning. Elevate your feet when sitting Check your Coumadin / INR level this Sunday morning For wound care of your legs: Wash with soap and water every day. Apply antibacterial ointment to all open areas. Place a nonadherent dressing over your open sores. Wrap with gauze wrap to keep these dressings in place. Radha wrap overall to help keep swelling down. documented in this encounterR[facility]10-[facility] History of Present illness Narrative* Skyler Adams APRN.CNS - 05/29/2024 1:01 PM EDT SUBJECTIVE: Shingrix Vaccine(1 of 2) Never done RSV Vaccine(1 - Risk 60-74 years 1-dose series) Never done HPI Eder Breen is a 68 year old male. PMH significnt for ACTIVE PROBLEM LIST Urinary Frequency History of Pulmonary Embolus (Pe) Focal Epilepsy With Impairment of Consciousness, Intractable (Hcc) Gerd (Gastroesophageal Reflux Disease) Anxiety and Depression Fatigue Morbid Obesity (Hcc) S/P Ivc Filter Diffuse Large B Cell Lymphoma (Hcc) Hypertension Anticoagulation Management Encounter Full Code Status Low Hdl (Under 40) Wilberto (Obstructive Sleep Apnea) Chronic Saddle Pulmonary Embolism (Hcc) Vitamin B12 Deficiency Vitamin D Deficiency Hypercholesterolemia Hemorrhoids Diverticulosis of Large Intestine Basal Cell Carcinoma Ddd (Degenerative Disc Disease), Cervical Elevated Lfts Obesity, Class I, Bmi 30-34.9 Bilateral Leg Edema Impaired Fasting Glucose History of Melanoma Excision Seizure (Hcc) Pain in Right Shoulder Hypothyroidism, Acquired Abnormal Biliary Hida Scan Nausea Right Upper Quadrant 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 Current Use of Anticoagulant Therapy Diarrhea Bloating Weight Gain Appetite Increase Lactose Intolerance Eating Disorder Dyslipidemia Dysthymia Major Depressive Disorder, Single Episode, in Full Remission (Hcc) Ifg (Impaired Fasting Glucose) Covid-19 Virus Infection Subtherapeutic International Normalized Ratio (Inr) Skin Tear of Right Upper Arm Without Complication Open Forehead Wound Fungal Rash of Torso Other Pulmonary Embolism Without Acute Cor Pulmonale (Hcc) Partial Epilepsy, With Intractable Epilepsy, Pharmacoresistant (Hcc) Bilateral Leg Pain Chronic Anticoagulation Obesity, Class II, Bmi 35-39.9 Chronic Saddle Pulmonary Embolism With Acute Cor Pulmonale (Hcc) Poor Diet Polydipsia PCP: Hari Oneill DO Presents today for recheck of cellulitis and leg swelling. HPI excerpted from previous visit: Presents today regarding leg swelling. He was seen by Alexus Galloway on March 17, 2024 noting chest pain shortness of breath and leg swelling. He reported weight gain malaise weakness and dizziness. This is emergency department follow-up. He was seen in the ER for hematuria. He is currently taki ng warfarin. An echocardiogram was completed May 05, 2024. This showed normal LVEF. No significant valvular abnormalities. Today reports working on bathroom at home, no shower or tub available, cleaning up at sink only now. Notes leg swelling, redness, open wounds and serous drainage for about one month. Weight: stable Shortness of breath: no Edema: yes Fever: no Open sores: multiple both lower extremities Compression:no Taking lasix:states yes but no recent refills noted in EPIC Chest pain: no Weakness:no Today reports less pain and swelling and drainage from his bilateral lower extremities. Afebrile. SO has been assisting with dressing changes and cleansing of his legs. Notes tolerating cephalexin. Without report of headache, chest pain, palpitations, dyspnea, and peripheral edema. Last 14 Encounter BP Readings: Date: BP: 05/20/2024 128/80 05/20/2024 128/80 05/14/2024 147/82 03/17/2024 130/64 03/11/2024 146/60 02/13/2024 122/82 02/05/2024 136/78 01/29/2024 132/82 12/19/2023 150/78 07/11/2023 136/80 05/01/2023 128/70 04/18/2023 141/60 04/02/2023 144/82 03/14/2023 122/63 Review of Systems Constitutional: Negative. Cardiovascular: Positive for leg swelling. Skin: Positive for rash and wound. Objective BP 137/72 Pulse 77 Wt 128 kg (282 lb 3 oz) BMI 38.27 kg/m Physical Exam Vitals and nursing note reviewed. Constitutional: Appearance: Normal appearance. HENT: Head: Normocephalic and atraumatic. Eyes: Conjunctiva/sclera: Conjunctivae normal. Cardiovascular: Rate and Rhythm: Normal rate. Pulmonary: Effort: Pulmonary effort is normal. Musculoskeletal: Right lower leg: Edema (3-4+ woody edema to knee) present. Left lower leg: Edema (3-4+ woody edema to knee) present. Skin: General: Skin is warm and dry. Comments: Multiple open areas with hypergranulation tissue pink/red color serous drainage erythema both lower extremities to knee level, wounds are healing compared to last visit, there is no warmth present. Swelling is present. Neurological: General: No focal deficit present. Mental Status: He is alert and oriented to person, place, and time. ALLERGIES Allergen Reactions Doxycycline GI Upset Lactose Intolerance* Diarrhea Mediations furosemide (LASIX) 40 mg tablet Take 1 tablet by mouth once daily. Take in the morning mupirocin (BACTROBAN) 2 % ointment Apply 1 application to affected area once daily for 10 days. Apply to all open sores on your legs Non-Adherent Bandage (CURITY ABDOMINAL PAD) 5 X 9 bndg Apply 1 application to affected area once daily. Non-Adherent Bandage 4 X 4 bndg Apply 1 application to affected area once daily for 14 days. Gauze Bandage (KERLIX) 4 1/2 X 147 bndg Apply 1 application to affected area once daily. lacosamide (VIMPAT) 200 mg Take 1 tablet by mouth daily with lunch AND 1 tablet every evening. Do all this for 180 days. zonisamide (ZONEGRAN) 100 mg capsule Take 4 capsules by mouth daily after lunch AND 2 capsules daily at bedtime. levETIRAcetam (KEPPRA) 750 mg tablet Take 2 tablets by mouth two times a day. lamoTRIgine (LAMICTAL) 200 mg tablet Take 1 tablet by mouth daily with lunch AND 1 tablet every evening. warfarin (COUMADIN) 5 mg tablet 5 mg Tues/Fri, 7.5 mg all other days or as directed warfarin (COUMADIN) 7.5 mg tablet 5 mg Tues/Fri, 7.5 mg all other days or as directed potassium chloride (K-TAB) 10 mEq tablet Take 1 tablet by mouth daily with breakfast. ferrous sulfate 325 mg (65 mg iron) tablet Take 1 tablet by mouth once daily. white petrolatum (AQUAPHOR ORIGINAL) 41 % topical ointment Apply to affected area two times a day. FLUoxetine (PROZAC) 40 mg capsule Take 1 capsule by mouth once daily. in the morning for mood levothyroxine (LEVOXYL) 88 mcg tablet Take 1 tablet by mouth daily before breakfast. Take on empty stomach 30 minutes before eating. For Thyroid diclofenac (VOLTAREN ARTHRITIS PAIN) 1 % topical gel Apply 2 g to affected area four times daily. cyanocobalamin, vitamin B-12, (VITAMIN B-12 ORAL) Take 1 tablet by mouth once daily. cephALEXin (KEFLEX) 500 mg capsule Take 1 capsule by mouth four times daily for 4 days. Take with food. Continue on with this medication for a total of 14 days treatment PAST MEDICAL HISTORY Diagnosis Date Abdominal pain, lower Acute gastritis without mention of hemorrhage Advance care planning 05/22/2022 Dylon to help with planning Arthritis Basal cell carcinoma DDD (degenerative disc disease), cervical Deep vein thrombophlebitis of leg (HCC) hx of Depression Diffuse large B cell lymphoma (HCC) 03/2012 duodenal Diverticulosis of colon (without mention of hemorrhage) Duodenitis without mention of hemorrhage GERD (gastroesophageal reflux disease) H. pylori infection 11/2013 Hemorrhoids History of DVT/PE 01/12/2013 - history of saddle PE in 2010 - IVC filter placed in 2011 possible in the setting of increased risk of falls while on coumadin - coumadin use complaicated by GI bleeding in the setting of supratherapeutic INR, warfarin stopped in 11/2012 - Repeat DVT involving common iliac/femoral and IVD distal tothe filter in 01/2013 while off coumadin, restarted on coumadin - Currently sub therapeutic on coumadin PLAN: -Increase coumadin to 7.5 mg daily - continue coumadin for life in the setting of PE Continue to bridge with lovenox as INR subtherapeutic. 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 sclerosis 07/2013 by echo WILBERTO (obstructive sleep apnea) Pulmonary embolism (HCC) hx of S/P insertion of IVC (inferior vena caval) filter thrombosed (S/P Lysis) Seizures (HCC) Snoring SUMMARY 01/12/2013 Mr Breen is a 58 y M with a medical history significant for: - Grade 3 Follicilar lymphoma, 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 Recent DVT in the common iliac, femoral and IVC distal to the IVD filter in 01/2013 while off coumadin. Currently on coumadin and no bleeding episodes/ falls Who is transferred from [facility] for the further evaluation of his dizziness which started about 3 -4 days ago and is now re Traumatic brain injury (HCC) There is a questionabale history of around age of 3 year he was dropped on the driveway may have lost consciousness Traumatic brain injury (HCC) There is a questionabale history of around age of 3 year he was dropped on the driveway may have lost consciousness Unspecified epilepsy without mention of intractable epilepsy (HCC) Vitamin B12 deficiency 11/2013 Vitamin D deficiency normal level 11/2011 Social History Tobacco Use Smoking status: Never Smokeless tobacco: Never Vaping Use Vaping status: Never Used Substance Use Topics Alcohol use: No Drug use: No ASSESSMENT/PLAN: 1. Cellulitis of lower extremity, unspecified laterality - ICD9: 682.6, ICD10: L03.119 (primary diagnosis) 2. Bilateral leg edema - ICD9: 782.3, ICD10: R60.0 - Continue treatment with Cephalaxin for a total of 14 days - Return to clinic one week Check Coumadin / INR today- did not check on Sunday - FUROSEMIDE 40 MG TABLET - CEPHALEXIN 500 MG CAPSULE - MUPIROCIN 2 % TOPICAL OINTMENT - CURITY ABDOMINAL PAD 5 X 9 BANDAGE - NON-ADHERENT BANDAGE 4 X 4 - KERLIX 4 1/2 X 147 BANDAGE Advised: For leg swelling take Lasix every day in the morning. Elevate your feet when sitting For wound care of your legs: Wash with soap and water every day. Apply antibacterial ointment to all open areas. Place a nonadherent dressing over your open sores. Wrap with gauze wrap to keep these dressings in place. Radha wrap overall to help keep swelling down. Skyler Adams APRN.CNS Medical Decision Making: Problems: Low: Acute, uncomplicated illness or injury Risk: Moderate: Drug management Medical Decision Making Level: 3 - Low [facility] Instructions* Patient Instructions* Skyler Adams APRN.CNS - 05/20/2024 10:19 AM EDT For leg swelling take Lasix every day in the morning. Elevate your feet when sitting Check your Coumadin / INR level this Sunday morning For wound care of your legs: Wash with soap and water every day. Apply antibacterial ointment to all open areas. Place a nonadherent dressing over your open sores. Wrap with gauze wrap to keep these dressings in place. Radha wrap overall to help keep swelling down. documented [facility] History of Present illness Narrative* Skyler Adams APRN.CNS - 05/20/2024 9:37 AM EDT SUBJECTIVE: Shingrix Vaccine(1 of 2) Never done RSV Vaccine(1 - Risk 60-74 years 1-dose series) Never done Covid-19 Vaccine(3 - Moderna risk series) due on 02/02/2021 BP Controlled (<130/80) due on 07/10/2023 Influenza Vaccine(1) due on 04/06/2024 HPI Eder Breen is a 68 year old male. PMH significnt for ACTIVE PROBLEM LIST Urinary Frequency History of Pulmonary Embolus (Pe) Focal Epilepsy With Impairment of Consciousness, Intractable (Hcc) Gerd (Gastroesophageal Reflux Disease) Anxiety and Depression Fatigue Morbid Obesity (Hcc) S/P Ivc Filter Diffuse Large B Cell Lymphoma (Hcc) Hypertension Anticoagulation Management Encounter Full Code Status Low Hdl (Under 40) Wilberto (Obstructive Sleep Apnea) Chronic Saddle Pulmonary Embolism (Hcc) Vitamin B12 Deficiency Vitamin D Deficiency Hypercholesterolemia Hemorrhoids Diverticulosis of Large Intestine Basal Cell Carcinoma Ddd (Degenerative Disc Disease), Cervical Elevated Lfts Obesity, Class I, Bmi 30-34.9 Bilateral Leg Edema Impaired Fasting Glucose History of Melanoma Excision Seizure (Hcc) Pain in Right Shoulder Hypothyroidism, Acquired Abnormal Biliary Hida Scan Nausea Right Upper Quadrant Pain Functional Diarrhea Fdc Current Use of Anticoagulant Therapy Diarrhea Bloating Weight Gain Appetite Increase Lactose Intolerance Eating Disorder Dyslipidemia Dysthymia Major Depressive Disorder, Single Episode, in Full Remission (Hcc) Ifg (Impaired Fasting Glucose) Covid-19 Virus Infection Subtherapeutic International Normalized Ratio (Inr) Skin Tear of Right Upper Arm Without Complication Open Forehead Wound Fungal Rash of Torso Other Pulmonary Embolism Without Acute Cor Pulmonale (Hcc) Partial Epilepsy, With Intractable Epilepsy, Pharmacoresistant (Hcc) Bilateral Leg Pain Chronic Anticoagulation Obesity, Class II, Bmi 35-39.9 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 He was seen by Alexus Galloway on March 17, 2024 noting chest pain shortness of breath and leg swelling. He reported weight gain malaise weakness and dizziness. This is emergency department follow-up. He was seen in the ER for hematuria. He is currently taki ng warfarin. An echocardiogram was completed May 05, 2024. This showed normal LVEF. No significant valvular abnormalities. Today reports working on bathroom at home, no shower or tub available, cleaning up at sink only now. Notes leg swelling, redness, open wounds and serous drainage for about one month. Weight: stable Shortness of breath: no Edema: yes Fever: no Open sores: multiple both lower extremities Compression:no Taking lasix:states yes but no recent refills noted in EPIC Chest pain: no Weakness:no Without report of headache, chest pain, palpitations, dyspnea, and peripheral edema. Last 14 Encounter BP Readings: Date: BP: 05/20/2024 128/80 05/20/2024 128/80 05/14/2024 147/82 03/17/2024 130/64 03/11/2024 146/60 02/13/2024 122/82 02/05/2024 136/78 01/29/2024 132/82 12/19/2023 150/78 07/11/2023 136/80 05/01/2023 128/70 04/18/2023 141/60 04/02/2023 144/82 03/14/2023 122/63 Review of Systems Constitutional: Negative. Cardiovascular: Positive for leg swelling. Skin: Positive for rash and wound. Objective BP 128/80 Pulse 90 Resp 16 Wt 127.8 kg (281 lb 12 oz) BMI 38.21 kg/m Physical Exam Vitals and nursing note reviewed. Constitutional: Appearance: Normal appearance. HENT: Head: Normocephalic and atraumatic. Eyes: Conjunctiva/sclera: Conjunctivae normal. Cardiovascular: Rate and Rhythm: Normal rate. Pulmonary: Effort: Pulmonary effort is normal. Musculoskeletal: Right lower leg: Edema (3-4+ woody edema to knee) present. Left lower leg: Edema (3-4+ woody edema to knee) present. Skin: General: Skin is warm and dry. Comments: Multiple open areas with hypergranulation tissue running color serous drainage erythema both lower extremities to knee level, some warmth is present. Neurological: General: No focal deficit present. Mental Status: He is alert and oriented to person, place, and time. ALLERGIES Allergen Reactions Doxycycline GI Upset Lactose Intolerance* Diarrhea Mediations lacosamide (VIMPAT) 200 mg Take 1 tablet by mouth daily with lunch AND 1 tablet every evening. Do all this for 180 days. zonisamide (ZONEGRAN) 100 mg capsule Take 4 capsules by mouth daily after lunch AND 2 capsules daily at bedtime. levETIRAcetam (KEPPRA) 750 mg tablet Take 2 tablets by mouth two times a day. lamoTRIgine (LAMICTAL) 200 mg tablet Take 1 tablet by mouth daily with lunch AND 1 tablet every evening. warfarin (COUMADIN) 5 mg tablet 5 mg Tues/Fri, 7.5 mg all other days or as directed warfarin (COUMADIN) 7.5 mg tablet 5 mg Tues/Fri, 7.5 mg all other days or as directed potassium chloride (K-TAB) 10 mEq tablet Take 1 tablet by mouth daily with breakfast. ferrous sulfate 325 mg (65 mg iron) tablet Take 1 tablet by mouth once daily. white petrolatum (AQUAPHOR ORIGINAL) 41 % topical ointment Apply to affected area two times a day. FLUoxetine (PROZAC) 40 mg capsule Take 1 capsule by mouth once daily. in the morning for mood levothyroxine (LEVOXYL) 88 mcg tablet Take 1 tablet by mouth daily before breakfast. Take on empty stomach 30 minutes before eating. For Thyroid diclofenac (VOLTAREN ARTHRITIS PAIN) 1 % topical gel Apply 2 g to affected area four times daily. furosemide (LASIX) 40 mg tablet Take 1 tablet by mouth once daily. cyanocobalamin, vitamin B-12, (VITAMIN B-12 ORAL) Take 1 tablet by mouth once daily. 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 pylori infection 11/2013 Hemorrhoids History of DVT/PE 01/12/2013 - history of saddle PE in 2010 - IVC filter placed in 2011 possible in the setting of increased risk of falls while on coumadin - coumadin use complaicated by GI bleeding in the setting of supratherapeutic INR, warfarin stopped in 11/2012 - Repeat DVT involving common iliac/femoral and IVD distal tothe filter in 01/2013 while off coumadin, restarted on coumadin - Currently sub therapeutic on coumadin PLAN: -Increase coumadin to 7.5 mg daily - continue coumadin for life in the setting of PE Continue to bridge with lovenox as INR subtherapeutic. 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 sclerosis 07/2013 by echo WILBERTO (obstructive sleep apnea) Pulmonary embolism (HCC) hx of S/P insertion of IVC (inferior vena caval) filter thrombosed (S/P Lysis) Seizures (HCC) Snoring SUMMARY 01/12/2013 Mr Breen is a 58 y M with a medical history significant for: - Grade 3 Follicilar lymphoma, 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 Recent DVT in the common iliac, femoral and IVC distal to the IVD filter in 01/2013 while off coumadin. Currently on coumadin and no bleeding episodes/ falls Who is transferred from [facility] for the further evaluation of his dizziness which started about 3 -4 days ago and is now re Traumatic brain injury (HCC) There is a questionabale history of around age of 3 year he was dropped on the driveway may have lost consciousness Traumatic brain injury (HCC) There is a questionabale history of around age of 3 year he was dropped on the driveway may have lost consciousness Unspecified epilepsy without mention of intractable epilepsy (HCC) Vitamin B12 deficiency 11/2013 Vitamin D deficiency normal level 11/2011 Social History Tobacco Use Smoking status: Never Smokeless tobacco: Never Vaping Use Vaping status: Never Used Substance Use Topics Alcohol use: No Drug use: No ASSESSMENT/PLAN: 1. Cellulitis of lower extremity, unspecified laterality - ICD9: 682.6, ICD10: L03.119 (primary diagnosis) 2. Bilateral leg edema - ICD9: 782.3, ICD10: R60.0 - Begin treatment with Cephalaxin (Keflex) - FUROSEMIDE 40 MG TABLET - CEPHALEXIN 500 MG CAPSULE - MUPIROCIN 2 % TOPICAL OINTMENT - CURITY ABDOMINAL PAD 5 X 9 BANDAGE - NON-ADHERENT BANDAGE 4 X 4 - KERLIX 4 1/2 X 147 BANDAGE Advised: For leg swelling take Lasix every day in the morning. Elevate your feet when sitting Check your Coumadin / INR level this Sunday morning For wound care of your legs: Wash with soap and water every day. Apply antibacterial ointment to all open areas. Place a nonadherent dressing over your open sores. Wrap with gauze wrap to keep these dressings in place. Radha wrap overall to help keep swelling down. Skyler Adams APRN.DAIRY HUSBANDRY WORKER Medical Decision Making: Problems: Moderate: 1+ chronic illnesses with change Risk: Moderate: Drug management Medical Decision Making Level: 4 - Moderate [facility] History of Present illness Narrative* Gerardo Greenwood APRN.PRODUCTION EXPERT - 05/20/2024 8:40 AM EDT Nontoxic-appearing male presents urgent care chief complaint leg discomfort. Duration of symptoms 1month. Associated symptoms swelling draining and ulceration wounds. This has been worsening over the last month. Presents today for evaluation. On examination I recommended patient be seen in family or internal medicine today. Appointment scheduled today at 920. Gerardo Greenwood APRN.SAMIR documented in this encounterR[facility]10-[facility] Telephone encounter Note * Telephone Encounter - Xavi Xie MD - 05/15/2024 12:50 PM EDT The following approved medication requests have been transmitted electronically. Requested Prescriptions Pending Prescriptions Disp Refills lacosamide (VIMPAT) 200 mg 180 tablet 1 Sig: Take 1 tablet by mouth daily with lunch AND 1 tablet every evening. Do all this for 180 days. Xavi Xie MD [facility] Miscellaneous Notes* Telephone Encounter - Xavi Xie MD - 05/15/2024 12:50 PM EDT The following approved medication requests have been transmitted electronically. Requested Prescriptions Pending Prescriptions Disp Refills lacosamide (VIMPAT) 200 mg 180 tablet 1 Sig: Take 1 tablet by mouth daily with lunch AND 1 tablet every evening. Do all this for 180 days. Xavi Xie MD * Telephone Encounter - Abiola Badillo - 05/15/2024 11:39 AM EDT Prescription Refill: MUST SIGN Requested by: pharmacy Please Call in Caller Contact Number: [phone] (home) Pharmacy Name: [facility] Number: [id number] Generic/ brand: generic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 Was bleeding alittle bit, but not much. Left lower leg wound-new as of yesterday, bumped it on something yesterday. has started bandaging it and treating with Aquaphor just like the right leg. No bleeding or drainage. Is not painful, warm, or red. Has been trying to use the RADHA wraps to both of his legs and elevate them both as much as he can. Completed the Bactrim antibiotic. Past medical history, appointments, medications, allergies reviewed. 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 pylori infection 11/2013 Hemorrhoids History of DVT/PE 01/12/2013 - history of saddle PE in 2010 - IVC filter placed in 2011 possible in the setting of increased risk of falls while on coumadin - coumadin use complaicated by GI bleeding in the setting of supratherapeutic INR, warfarin stopped in 11/2012 - Repeat DVT involving common iliac/femoral and IVD distal tothe filter in 01/2013 while off coumadin, restarted on coumadin - Currently sub therapeutic on coumadin PLAN: -Increase coumadin to 7.5 mg daily - continue coumadin for life in the setting of PE Continue to bridge with lovenox as INR subtherapeutic. 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 sclerosis 07/2013 by echo WILBERTO (obstructive sleep apnea) Pulmonary embolism (HCC) hx of S/P insertion of IVC (inferior vena caval) filter thrombosed (S/P Lysis) Seizures (HCC) Snoring SUMMARY 01/12/2013 Mr Breen is a 58 y M with a medical history significant for: - Grade 3 Follicilar lymphoma, 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 Recent DVT in the common iliac, femoral and IVC distal to the IVD filter in 01/2013 while off coumadin. Currently on coumadin and no bleeding episodes/ falls Who is transferred from [facility] for the further evaluation of his dizziness which started about 3 -4 days ago and is now re Traumatic brain injury (HCC) There is a questionabale history of around age of 3 year he was dropped on the driveway may have lost consciousness Traumatic brain injury (HCC) There is a questionabale history of around age of 3 year he was dropped on the driveway may have lost consciousness Unspecified epilepsy without mention of intractable epilepsy (HCC) Vitamin B12 deficiency 11/2013 Vitamin D deficiency normal level 11/2011 Previous Surgical History PAST SURGICAL HISTORY Procedure Laterality Date APPENDECTOMY HX COLONOSCOPY FLX DX W/COLLJ SPEC WHEN PFRMD 12/27/2009 Colonoscopy COLONOSCOPY FLX DX W/COLLJ SPEC WHEN PFRMD 05/03/2021 ESOPHAGOGASTRODUODENOSCOPY TRANSORAL DIAGNOSTIC 02/12/2012 EGD ESOPHAGOGASTRODUODENOSCOPY TRANSORAL DIAGNOSTIC 03/27/[address] [facility] inpt ESOPHAGOGASTRODUODENOSCOPY TRANSORAL DIAGNOSTIC 06/04/2012 EGD ESOPHAGOGASTRODUODENOSCOPY TRANSORAL DIAGNOSTIC N/A 11/13/2016 ESOPHAGOGASTRODUODENOSCOPY TRANSORAL DIAGNOSTIC 02/15/2018 EGD ESOPHAGOGASTRODUODENOSCOPY TRANSORAL DIAGNOSTIC 05/03/2021 INSJ TUNNELED CTR VAD W/SUBQ PORT AGE 5 YR/> 04/11/2012 INTRO. OF CATH SUP/INF VENA CAVA 04/09/2012 IVC FILTER PAST SURGICAL HISTORY OF ? right eye blind, injured during seizure Family History FAMILY HISTORY Problem Relation Age of Onset Stroke Mother Cancer Mother patient states he came from an infection due to a back injury Patient Allergies ALLERGIES Allergen Reactions Doxycycline GI Upset Lactose Intolerance* Diarrhea Current Medications Current Outpatient Medications on File Prior to Visit Medication Sig white petrolatum (AQUAPHOR ORIGINAL) 41 % topical ointment Apply to affected area two times a day. FLUoxetine (PROZAC) 40 mg capsule Take 1 capsule by mouth once daily. in the morning for mood zonisamide (ZONEGRAN) 100 mg capsule TAKE 4 CAPSULES EVERY DAY WITH LUNCH AND TAKE 2 CAPSULES EVERYEVENING warfarin (COUMADIN) 7.5 mg tablet Take 1 tablet by mouth once daily. levETIRAcetam (KEPPRA) 750 mg tablet TAKE 2 TABLETS TWICE A DAY lacosamide (VIMPAT) 200 mg Take 1 tablet by mouth daily with lunch AND 1 tablet every evening. Do all this for 180 days. lamoTRIgine (LAMICTAL) 200 mg tablet TAKE 1 TABLET BY MOUTH DAILY WITH LUNCH AND 1 TABLET EVERY EVENING. levothyroxine (LEVOXYL) 88 mcg tablet Take 1 tablet by mouth daily before breakfast. Take on empty stomach 30 minutes before eating. For Thyroid warfarin (COUMADIN) 5 mg tablet Take 7.5mg Mon, Wed, Fri, Sat, Sun of this next week. He should take 10mg . Recheck INR level in 1 week. By mouth. levETIRAcetam (KEPPRA) 750 mg tablet Take 2 tablets by mouth twice daily. diclofenac (VOLTAREN ARTHRITIS PAIN) 1 % topical gel Apply 2 g to affected area four times daily. furosemide (LASIX) 40 mg tablet Take 1 tablet by mouth once daily. cyanocobalamin, vitamin B-12, (VITAMIN B-12 ORAL) Take 1 tablet by mouth once daily. No current facility-administered medications on file prior to visit. Social History Social History Tobacco Use Smoking status: Never Smokeless tobacco: Never Vaping Use Vaping Use: Never used Substance Use Topics Alcohol use: No Drug use: No Review of Symptoms REVIEW OF SYSTEMS See HPI, otherwise negative EXAM: BP 122/82 (BP Site: Left Arm, BP Position: Sitting, BP Cuff Size: Regular Adult) Pulse 63 Resp 20 Wt 123.7 kg (272 lb 9.6 oz) SpO2 99% BMI 36.97 kg/m General Appearance: Well appearing, alert, in no acute distress, well-hydrated, well nourished, moderately disheveled. Skin: right lower mid anterior leg closed superficial wound at 2 x 2 cm in size with small serosanguinous drainage but no odor. Left lower mid anterior leg open superficial small skin tears x2, no bleeding or drainage, no odor. Heart: RRR without murmur, gallop, or rubs. No ectopy. Psychiatric: pleasant, cooperative. Health Maintenance List Shingrix Vaccine(1 of 2) Never done RSV Vaccine(1 - 1-dose 60+ series) Never done Covid-19 Vaccine(3 - Moderna risk series) due on 02/02/2021 BP Controlled (<130/80) due on 07/10/2023 Influenza Vaccine(1) due on 04/06/2024 Annual PCP Team Chronic Disease Visit due on 02/04/2025 Colorectal Cancer Screening due on 05/03/2026 Diabetes Screening due on 07/11/2026 Lipid Screening due on 11/28/2027 DTaP,Tdap,Td Vaccine(3 - Td or Tdap) due on 12/09/2031 Hepatitis C Screening Completed Pneumococcal Vaccine: 65+ Completed HPV Vaccine Aged Out Advance Directive Discussion Discontinued Data reviewed Previous records, office notes ASSESSMENT/PLAN: 1. Wound of right lower extremity, subsequent encounter - ICD9: V58.89, 894.0, ICD10: S81.801D (primary diagnosis) Continue with the Aquaphor and dressing changes bid x1 week. Discussed red flag s/s with patient and . 2. Wound of left lower extremity, initial encounter - ICD9: 894.0, ICD10: S81.802A Continue with the Aquaphor and dressing changes bid x1 week. Discussed red flag s/s with patient and . Suyapa Lira APRN.SAMIR [facility] Instructions* Patient Instructions* Suyapa Lira APRN.CNP - 02/05/2024 1:38 PM EDT Continue with the Aquaphor to your nathan as well as both of the toenail areas twice daily as Dr. Oneill has had you doing. Finish off the Bactrim antibiotic. Use the RADHA wraps for your legs rather than compression stockins for now. documented in this [facility] History of Present illness Narrative* Suyapa Lira APRN.CNP - 02/05/2024 1:09 PM EDT Chief Complaint Patient presents with: Wound Check: Angel Luis legs, left toenail check HPI Eder Breen is a 68 year old male who presents here today for Above Complaints.. Per visit with PCP Dr. Oneill on 01/29/2024: Left toenail lifted and pulled off 2nd toenail, which was bleeding a lot. This happened yesterday. He just put a dressing on the area, knowing that he would be coming in today 2-3 days ago, he was working on a project and the shopvac hit him on the right lower leg. Caused anopen wound, he just has kept a piece of gauze on the area, was irritated and bleeding Gen: A&OX3, NAD, non-toxic appearing HEENT: PERRLA, EOMs intact b/l, nares without drainage, pharynx without erythema, exudate, lesions,or drainage. Uvula midline. Neck: No LAD, no thyromegaly, no meningismus. CV: RRR, no murmur Lungs: CTA b/l, no wheezing Skin: right lower mid anterior leg open superficial wound at 2 x 2 cm in size with serosanguinous drainage and mild odor to wound Left 2nd toenail with avulsion present and without toenail but with bleeding present on exam Central obesity ASSESSMENT/PLAN: 1. Leg wound, right, initial encounter - ICD9: 894.0, ICD10: S81.801A (primary diagnosis) D/w him and his regarding dressing changes, given non adherent dressing and Aquafor to use to change dressing 2x/day Start on bactrim Follow up in 1 week for wound recheck - SULFAMETHOXAZOLE 800 MG-TRIMETHOPRIM 160 MG TABLET 2. Avulsion of toenail of left foot - ICD9: 893.0, ICD10: S91.209A D/w him and his regarding dressing changes, given non adherent dressing and Aquafor to use to change dressing 2x/day Start on bactrim Follow up in 1 week for wound recheck Area of bleeding was stopped today in office with cautery - SULFAMETHOXAZOLE 800 MG-TRIMETHOPRIM 160 MG TABLET 3. Bleeding from wound - ICD9: 958.2, ICD10: T14.8XXA D/w him and his regarding dressing changes, given non adherent dressing and Aquafor to use to change dressing 2x/day Start on bactrim Follow up in 1 week for wound recheck Area of bleeding was stopped today in office with cautery Last medical history, appointments, medications, allergies reviewed. Currently: Left 2nd toenail-continuing with Aquaphor and bandaging bid. No more bleeding, no throbbing, redness, or warmth. Right lower leg wound-continuing with Aquaphor and bandaging bid. No bleeding but does have a clearto yellow small amount of drainage. Is not painful, warm, or red. Right 3rd toenail-new today, states it ripped off. Was not able to explain how. Is a bit painful.Wrapped in a bandage prior to coming to the office. Was bleeding a little bit, but not much. Tolerating the Bactrim bid-sometimes does forget to take it twice daily, but does always take it atleast once. 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 pylori infection 11/2013 Hemorrhoids History of DVT/PE 01/12/2013 - history of saddle PE in 2010 - IVC filter placed in 2011 possible in the setting of increased risk of falls while on coumadin - coumadin use complaicated by GI bleeding in the setting of supratherapeutic INR, warfarin stopped in 11/2012 - Repeat DVT involving common iliac/femoral and IVD distal tothe filter in 01/2013 while off coumadin, restarted on coumadin - Currently sub therapeutic on coumadin PLAN: -Increase coumadin to 7.5 mg daily - continue coumadin for life in the setting of PE Continue to bridge with lovenox as INR subtherapeutic. 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 sclerosis 07/2013 by echo WILBERTO (obstructive sleep apnea) Pulmonary embolism (HCC) hx of S/P insertion of IVC (inferior vena caval) filter thrombosed (S/P Lysis) Seizures (HCC) Snoring SUMMARY 01/12/2013 Mr Breen is a 58 y M with a medical history significant for: - Grade 3 Follicilar lymphoma, 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 Recent DVT in the common iliac, femoral and IVC distal to the IVD filter in 01/2013 while off coumadin. Currently on coumadin and no bleeding episodes/ falls Who is transferred from [facility] for the further evaluation of his dizziness which started about 3 -4 days ago and is now re Traumatic brain injury (HCC) There is a questionabale history of around age of 3 year he was dropped on the driveway may have lost consciousness Traumatic brain injury (HCC) There is a questionabale history of around age of 3 year he was dropped on the driveway may have lost consciousness Unspecified epilepsy without mention of intractable epilepsy (HCC) Vitamin B12 deficiency 11/2013 Vitamin D deficiency normal level 11/2011 Previous Surgical History PAST SURGICAL HISTORY Procedure Laterality Date APPENDECTOMY HX COLONOSCOPY FLX DX W/COLLJ SPEC WHEN PFRMD 12/27/2009 Colonoscopy COLONOSCOPY FLX DX W/COLLJ SPEC WHEN PFRMD 05/03/2021 ESOPHAGOGASTRODUODENOSCOPY TRANSORAL DIAGNOSTIC 02/12/2012 EGD ESOPHAGOGASTRODUODENOSCOPY TRANSORAL DIAGNOSTIC 03/27/2012 EGD [facility] inpt ESOPHAGOGASTRODUODENOSCOPY TRANSORAL DIAGNOSTIC 06/04/2012 EGD ESOPHAGOGASTRODUODENOSCOPY TRANSORAL DIAGNOSTIC N/A 11/13/2016 ESOPHAGOGASTRODUODENOSCOPY TRANSORAL DIAGNOSTIC 02/15/2018 EGD ESOPHAGOGASTRODUODENOSCOPY TRANSORAL DIAGNOSTIC 05/03/2021 INSJ TUNNELED CTR VAD W/SUBQ PORT AGE 5 YR/> 04/11/2012 INTRO. OF CATH SUP/INF VENA CAVA 04/09/2012 IVC FILTER PAST SURGICAL HISTORY OF ? right eye blind, injured during seizure Family History FAMILY HISTORY Problem Relation Age of Onset Stroke Mother Cancer Mother patient states he came from an infection due to a back injury Patient Allergies ALLERGIES Allergen Reactions Doxycycline GI Upset Lactose Intolerance* Diarrhea Current Medications Current Outpatient Medications on File Prior to Visit Medication Sig sulfamethoxazole-trimethoprim (BACTRIM DS) 800-160 mg per tablet Take 1 tablet by mouth two times aday for 10 days. FLUoxetine (PROZAC) 40 mg capsule Take 1 capsule by mouth once daily. in the morning for mood zonisamide (ZONEGRAN) 100 mg capsule TAKE 4 CAPSULES EVERY DAY WITH LUNCH AND TAKE 2 CAPSULES EVERYEVENING warfarin (COUMADIN) 7.5 mg tablet Take 1 tablet by mouth once daily. levETIRAcetam (KEPPRA) 750 mg tablet TAKE 2 TABLETS TWICE A DAY lacosamide (VIMPAT) 200 mg Take 1 tablet by mouth daily with lunch AND 1 tablet every evening. Do all this for 180 days. lamoTRIgine (LAMICTAL) 200 mg tablet TAKE 1 TABLET BY MOUTH DAILY WITH LUNCH AND 1 TABLET EVERY EVENING. levothyroxine (LEVOXYL) 88 mcg tablet Take 1 tablet by mouth daily before breakfast. Take on empty stomach 30 minutes before eating. For Thyroid warfarin (COUMADIN) 5 mg tablet Take 7.5mg Mon, Wed, Fri, Sat, Sun of this next week. He should take 10mg . Recheck INR level in 1 week. By mouth. levETIRAcetam (KEPPRA) 750 mg tablet Take 2 tablets by mouth twice daily. diclofenac (VOLTAREN ARTHRITIS PAIN) 1 % topical gel Apply 2 g to affected area four times daily. furosemide (LASIX) 40 mg tablet Take 1 tablet by mouth once daily. cyanocobalamin, vitamin B-12, (VITAMIN B-12 ORAL) Take 1 tablet by mouth once daily. No current facility-administered medications on file prior to visit. Social History Social History Tobacco Use Smoking status: Never Smokeless tobacco: Never Vaping Use Vaping Use: Never used Substance Use Topics Alcohol use: No Drug use: No Review of Symptoms REVIEW OF SYSTEMS See HPI, otherwise negative EXAM: BP 136/78 (BP Site: Left Arm, BP Position: Sitting, BP Cuff Size: Regular Adult) Pulse 74 Temp 36.3 C (97.4 F) Resp 20 Wt 124.1 kg (273 lb 9.6 oz) SpO2 96% BMI 37.11 kg/m General Appearance: Well appearing, alert, in no acute distress, well-hydrated, well nourished.. Skin: right lower mid anterior leg open superficial wound at 2 x 2 cm in size with serosanguinous drainage but no odor. Left 2nd toenail with avulsion present and without toenail, wound bed pink, no warmth or bleeding. Right 3rd to avulsion with partial toenail missing, has dry blood but no active bleeding, no redness or warmth. Heart: RRR without murmur, gallop, or rubs. No ectopy. Psychiatric: pleasant, cooperative. Health Maintenance List Shingrix Vaccine(1 of 2) Never done RSV Vaccine(1 - 1-dose 60+ series) Never done Covid-19 Vaccine(3 - Moderna risk series) due on 02/02/2021 BP Controlled (<130/80) due on 07/10/2023 Influenza Vaccine(1) due on 04/06/2024 Annual PCP Team Chronic Disease Visit due on 01/28/2025 Colorectal Cancer Screening due on 05/03/2026 Diabetes Screening due on 07/11/2026 Lipid Screening due on 11/28/2027 DTaP,Tdap,Td Vaccine(3 - Td or Tdap) due on 12/09/2031 Hepatitis C Screening Completed Pneumococcal Vaccine: 65+ Completed HPV Vaccine Aged Out Advance Directive Discussion Discontinued Data reviewed Previous records, office notes ASSESSMENT/PLAN: 1. Avulsion of toenail of left foot - ICD9: 893.0, ICD10: S91.209A (primary diagnosis) Improving. Continue Aquaphor bid and cover with dressing. Keep clean and dry. Complete Bactrim antibiotic-reminder to take bid as scheduled and not miss doses. F/u in 2 weeks. - AQUAPHOR ORIGINAL 41 % TOPICAL OINTMENT 2. Avulsion of toenail of right foot - ICD9: 893.0, ICD10: S91.209A New. Begin Aquaphor bid and cover with dressing. Keep clean and dry. Complete Bactrim antibiotic-reminder to take bid as scheduled and not miss doses. F/u in 2 weeks. - AQUAPHOR ORIGINAL 41 % TOPICAL OINTMENT 3. Wound of right lower extremity, subsequent encounter - ICD9: V58.89, 894.0, ICD10: S81.801D Improving. Continue Aquaphor bid and cover with dressing. Keep clean and dry. Complete Bactrim antibiotic-reminder to take bid as scheduled and not miss doses. F/u in 2 weeks. - AQUAPHOR ORIGINAL 41 % TOPICAL OINTMENT 4. Onychomycosis - ICD9: 110.1, ICD10: B35.1 Requesting nail clipping as well. - CONSULT TO PODIATRY 5. Bilateral leg edema - ICD9: 782.3, ICD10: R60.0 Due to wounds, unable to wear compression stockings. Will wear RADHA wraps to both lower legs daily, elevate his feet as much as able. Suyapa Lira APRN.PRODUCTION EXPERT documented [facility] this [facility] History of Present illness Narrative* Hari Oneill, - 01/29/2024 12:38 PM EDT CC: Eder Breen is a 68 year old male who presents to the office for follow up HPI: At last OFFICE VISIT on 07/11/2023 Weight gain, currently 269 lbs Scheduled for 08/13/2023 for left cataract surgery by Dr. Elen Coulter at [facility]. Hehasn't gotten ahold of his neurologist to clarify regarding anesthesia for this procedure due to his seizure disorder Seizure disorder, has recently had several medication changes by Neurologist due to severe breakthrough seizures. + increased thirst, drinking 8 glasses of 16 oz of water per glass. He is unsure what is trigger this. Hx of hyperglycemia. No previous hx of diabetes in the past. feels that he eats a lot of starches and carbohydrates. He eats pizza that he makes at home atleast 2-3 days a week as well as potatoes and breads etc. He states that he struggles to know what and how to cook for himself in a healthy way and that growing up as a child he wasn't taught to eat vegetables. Has had worse difficulty with balance and walking, thinks related to the weight gain Currently Seizure disorder, overall has been stable, continues to take his anti epileptic medications Obesity, admits that he hasn't been following a good diet recently, not getting a lot of exercise either and still eating too many junk foods. Left toenail lifted and pulled off 2nd toenail, which was bleeding a lot. This happened yesterday. He just put a dressing on the area, knowing that he would be coming in today 2-3 days ago, he was working on a project and the [employer] hit him on the right lower leg. Caused anopen wound, he just has kept a piece of gauze on the area, was irritated and bleeding HTN, well controlled, taking medications as prescribed. 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 pylori infection 11/2013 Hemorrhoids History of DVT/PE 01/12/2013 - history of saddle PE in 2010 - IVC filter placed in 2011 possible in the setting of increased risk of falls while on coumadin - coumadin use complaicated by GI bleeding in the setting of supratherapeutic INR, warfarin stopped in 11/2012 - Repeat DVT involving common iliac/femoral and IVD distal tothe filter in 01/2013 while off coumadin, restarted on coumadin - Currently sub therapeutic on coumadin PLAN: -Increase coumadin to 7.5 mg daily - continue coumadin for life in the setting of PE Continue to bridge with lovenox as INR subtherapeutic. 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 sclerosis 07/2013 by echo WILBERTO (obstructive sleep apnea) Pulmonary embolism (HCC) hx of S/P insertion of IVC (inferior vena caval) filter thrombosed (S/P Lysis) Seizures (HCC) Snoring SUMMARY 01/12/2013 Mr Breen is a 58 y M with a medical history significant for: - Grade 3 Follicilar lymphoma, 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 Recent DVT in the common iliac, femoral and IVC distal to the IVD filter in 01/2013 while off coumadin. Currently on coumadin and no bleeding episodes/ falls Who is transferred from [facility] for the further evaluation of his dizziness which started about 3 -4 days ago and is now re Traumatic brain injury (HCC) There is a questionabale history of around age of 3 year he was dropped on the driveway may have lost consciousness Traumatic brain injury (HCC) There is a questionabale history of around age of 3 year he was dropped on the driveway may have lost consciousness Unspecified epilepsy without mention of intractable epilepsy (HCC) Vitamin B12 deficiency 11/2013 Vitamin D deficiency normal level 11/2011 PAST SURGICAL HISTORY Procedure Laterality Date APPENDECTOMY HX COLONOSCOPY FLX DX W/COLLJ SPEC WHEN PFRMD 12/27/2009 Colonoscopy COLONOSCOPY FLX DX W/COLLJ SPEC WHEN PFRMD 05/03/2021 ESOPHAGOGASTRODUODENOSCOPY TRANSORAL DIAGNOSTIC 02/12/2012 EGD ESOPHAGOGASTRODUODENOSCOPY TRANSORAL DIAGNOSTIC 03/27/[address] [facility] inpt ESOPHAGOGASTRODUODENOSCOPY TRANSORAL DIAGNOSTIC 06/04/2012 EGD ESOPHAGOGASTRODUODENOSCOPY TRANSORAL DIAGNOSTIC N/A 11/13/2016 ESOPHAGOGASTRODUODENOSCOPY TRANSORAL DIAGNOSTIC 02/15/2018 EGD ESOPHAGOGASTRODUODENOSCOPY TRANSORAL DIAGNOSTIC 05/03/2021 INSJ TUNNELED CTR VAD W/SUBQ PORT AGE 3 YR/> 04/11/2012 INTRO. 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 right eye blind, injured during seizure Current Outpatient Medications Medication Sig FLUoxetine (PROZAC) 40 mg capsule Take 1 capsule by mouth once daily. in the morning for mood zonisamide (ZONEGRAN) 100 mg capsule TAKE 4 CAPSULES EVERY DAY WITH LUNCH AND TAKE 2 CAPSULES EVERYEVENING warfarin (COUMADIN) 7.5 mg tablet Take 1 tablet by mouth once daily. levETIRAcetam (KEPPRA) 750 mg tablet TAKE 2 TABLETS TWICE A DAY lacosamide (VIMPAT) 200 mg Take 1 tablet by mouth daily with lunch AND 1 tablet every evening. Do all this for 180 days. lamoTRIgine (LAMICTAL) 200 mg tablet TAKE 1 TABLET BY MOUTH DAILY WITH LUNCH AND 1 TABLET EVERY EVENING. levothyroxine (LEVOXYL) 88 mcg tablet Take 1 tablet by mouth daily before breakfast. Take on empty stomach 30 minutes before eating. For Thyroid warfarin (COUMADIN) 5 mg tablet Take 7.5mg Mon, Wed, Fri, Sat, Sun of this next week. He should take 10mg . Recheck INR level in 1 week. By mouth. levETIRAcetam (KEPPRA) 750 mg tablet Take 2 tablets by mouth twice daily. diclofenac (VOLTAREN ARTHRITIS PAIN) 1 % topical gel Apply 2 g to affected area four times daily. furosemide (LASIX) 40 mg tablet Take 1 tablet by mouth once daily. cyanocobalamin, vitamin B-12, (VITAMIN B-12 ORAL) Take 1 tablet by mouth once daily. No current facility-administered medications for this visit. ALLERGIES Allergen Reactions Doxycycline GI Upset Lactose Intolerance* Diarrhea Social History Tobacco Use Smoking status: Never Smokeless tobacco: Never Vaping Use Vaping Use: Never used Substance Use Topics Alcohol use: No Drug use: No ROS: See HPI PE: BP 132/82 Pulse 64 Temp (Src) 96.6 (Left Tympanic) Resp 20 Wt 270 lb (122.5kg) Gen: A&OX3, NAD, non-toxic appearing HEENT: PERRLA, EOMs intact b/l, nares without drainage, pharynx without erythema, exudate, lesions,or drainage. Uvula midline. Neck: No LAD, no thyromegaly, no meningismus. CV: RRR, no murmur Lungs: CTA b/l, no wheezing Skin: right lower mid anterior leg open superficial wound at 2 x 2 cm in size with serosanguinous drainage and mild odor to wound Left 2nd toenail with avulsion present and without toenail but with bleeding present on exam Central obesity ASSESSMENT/PLAN: 1. Leg wound, right, initial encounter - ICD9: 894.0, ICD10: S81.801A (primary diagnosis) D/w him and his regarding dressing changes, given non adherent dressing and Aquafor to use to change dressing 2x/day Start on bactrim Follow up in 1 week for wound recheck - SULFAMETHOXAZOLE 800 MG-TRIMETHOPRIM 160 MG TABLET 2. Avulsion of toenail of left foot - ICD9: 893.0, ICD10: S91.209A D/w him and his regarding dressing changes, given non adherent dressing and Aquafor to use to change dressing 2x/day Start on bactrim Follow up in 1 week for wound recheck Area of bleeding was stopped today in office with cautery - SULFAMETHOXAZOLE 800 MG-TRIMETHOPRIM 160 MG TABLET 3. Bleeding from wound - ICD9: 958.2, ICD10: T14.8XXA D/w him and his regarding dressing changes, given non adherent dressing and Aquafor to use to change dressing 2x/day Start on bactrim Follow up in 1 week for wound recheck Area of bleeding was stopped today in office with cautery 4. Diffuse large B-cell lymphoma, unspecified body region (HCC) - ICD9: 202.80, ICD10: C83.30 Follow up with Hem onc 5. Major depressive disorder, single episode, in full remission (HCC) - ICD9: 296.26, ICD10: F32.5 stable 6. Morbid obesity (HCC) - ICD9: 278.01, ICD10: E66.01 Stable - Behavioral intervention, - Eat well program, and - Continue current medications 7. IFG (impaired fasting glucose) - ICD9: 790.21, ICD10: R73.01 stable 8. Hypothyroidism, acquired - ICD9: 244.9, ICD10: E03.9 - Instructed patient on importance of taking on an empty stomach either first thing in the morning or at bedtime. 9. Dysthymia - ICD9: 300.4, ICD10: F34.1 stable 10. Partial epilepsy, with intractable epilepsy, pharmacoresistant (HCC) - ICD9: 345.51, ICD10: G40.119 F/u with Neurologist Hari Oneill DO Return if no improvement. Follow up with Hari Oneill DO. To ER if develops chest pain, shortness of breath Discussed risks, benefits, alternatives, and potential side effects of medications. Patient/Guardian expressed understanding and agreed with the plan. See patient instructions. Hari Oneill DO [address] [place] [address] [facility] Tele[facility] encounter Note * Telephone Encounter - Stefani Mckinney - 01/17/2024 1:00 PM EDT Prescription Refill Information The patient has been identified by name and date of : Yes Caregiver verified no other encounters exist for this prescription request: Yes Caregiver confirmed with patient/requestor that no other refills are due, in the near future, with this provider at this time: Yes The last office visit in the department: 07/11/2023 Does the patient have a future office visit with this provider/department: Yes Requested Prescriptions Pending Prescriptions Disp Refills FLUoxetine (PROZAC) 40 mg capsule 90 capsule 1 Sig: Take 1 capsule by mouth once daily. in the morning for mood Stefani Mckinney January 17, 2024 1:01 PM [facility] Miscellaneous Notes* Telephone Encounter - Stefani Mckinney - 01/17/2024 1:00 PM EDT Prescription Refill Information The patient has been identified by name and date of : Yes Caregiver verified no other encounters exist for this prescription request: Yes Caregiver confirmed with patient/requestor that no other refills are due, in the near future, with this provider at this time: Yes The last office visit in the department: 07/11/2023 Does the patient have a future office visit with this provider/department: Yes Requested Prescriptions Pending Prescriptions Disp Refills FLUoxetine (PROZAC) 40 mg capsule 90 capsule 1 Sig: Take 1 capsule by mouth once daily. in the morning for mood Stefani Mckinney January 17, 2024 1:01 PM documented in this encounterR[facility] Telephone encounter Note * Telephone Encounter - Natasha Bergeron PA-C - 01/14/2024 4:46 PM EDT The following approved medication requests have been transmitted electronically. Requested Prescriptions Signed Prescriptions Disp Refills zonisamide (ZONEGRAN) 100 mg capsule 540 capsule 3 Sig: TAKE 4 CAPSULES EVERY DAY WITH LUNCH AND TAKE 2 CAPSULES EVERY EVENING Authorizing Provider: NATASHA BERGERON PA-C [facility] Miscellaneous Notes* Telephone Encounter - Natasha Bergeron PA-C - 01/14/2024 4:46 PM EDT The following approved medication requests have been transmitted electronically. Requested Prescriptions Signed Prescriptions Disp Refills zonisamide (ZONEGRAN) 100 mg capsule 540 capsule 3 Sig: TAKE 4 CAPSULES EVERY DAY WITH LUNCH AND TAKE 2 CAPSULES EVERY EVENING Authorizing Provider: NATASHA BERGERON PA-C * Telephone Encounter - Atiya Gannon - 01/14/2024 4:34 PM EDT Prescription Refill: Requested by: pharmacy Please E-Scribe Caller Contact Number: electronic Pharmacy Name: [facility] Pharmacy Number: [phone] Generic/ brand: Generic 30 or 90 day supply requested: 90 Last appointment: 12/19/23 Next Appointment: 05/14/[address] Xie documented in this encounterR[facility] Telephone encounter Note * Telephone Encounter - Atiya Gannon - 01/14/2024 4:34 PM EDT Prescription Refill: Requested by: pharmacy Please E-Scribe Caller Contact Number: electronic Pharmacy Name: [facility] Pharmacy Number: [phone] Generic/ brand: Generic 30 or 90 day supply requested: 90 Last appointment: 12/19/23 Next Appointment: 05/14/[address] Xie [facility] Telephone encounter Note* Telephone Encounter - Gay Woods MA - 01/01/2024 12:34 PM EDT Pt notified and would like letter mailed to home address. Mailed. Gay Woods MA [facility]05-28-[facility] Miscellaneous Notes* Telephone Encounter - Gay Woods MA - 01/01/2024 12:34 PM EDT Pt notified and would like letter mailed to home address. Mailed. Gay Woods MA * Telephone Encounter - Hari Oneill DO - 01/01/2024 12:29 PM EDT Letter signed for him Hari Oneill DO * Telephone Encounter - Gay Woods MA - 01/01/2024 12:21 PM EDT Letter placed on JG desk for signature. Gay Woods MA * Telephone Encounter - Hari Oneill DO - 01/01/2024 12:04 PM EDT Yes please compose letter/excuse for no jury duty due to health concerns Hari Oneill DO * Telephone Encounter - Dinah Urban RN - 01/01/2024 9:19 AM EDT Pts called in and reports Pt received a letter a few days ago reporting he has jury duty February 03. She states he received it a few days ago and it says they need to receive the letter within 5 days of them receiving the letter. I let her know that the provider has 7-10 business days to get a letter back to the patients. Pt states she would like a call once the letter is written and she will come pick it up. She reports Pt isn't abbi to do jury duty because he has epilepsy. documented in [facility] Telephone encounter Note * Telephone Encounter - Hari Oneill DO - 01/01/2024 12:29 PM EDT Letter signed for him Hari Oneill DO [facility] Telephone encounter Note* Telephone Encounter - Gay Woods MA - 01/01/2024 12:21 PM EDT Letter placed on JG desk for signature. Gay Woods MA [facility] Telephone encounter Note* Telephone Encounter - Hari Oneill DO - 01/01/2024 12:04 PM EDT Yes please compose letter/excuse for no jury duty due to health concerns Hari Oneill DO [facility] Telephone encounter Note* Telephone Encounter - Dinah Urban RN - 01/01/2024 9:19 AM EDT Pts called in and reports Pt received a letter a few days ago reporting he has jury duty February 03. She states he received it a few days ago and it says they need to receive the letter within 5 days of them receiving the letter. I let her know that the provider has 7-10 business days to get a letter back to the patients. Pt states she would like a call once the letter is written and she will come pick it up. She reports Pt isn't abbi to do jury duty because he has epilepsy. [facility] Telephone encounter Note* Telephone Encounter - Annetta De La Cruz LPN - 12/19/2023 5:01 PM EDT Patient has been identified by name and date of : Yes, Provider Dr. Oneill Date 12/19/23 Time5:02 pm Pharmacy phones for refill(s): Requested Prescriptions Pending Prescriptions Disp Refills warfarin (COUMADIN) 7.5 mg tablet 90 tablet 1 Sig: Take 1 tablet by mouth once daily. Date of last office visit in primary care: 07/11/2023 Date of next office visit in primary care: 01/29/2024 Thank you. Annetta De La Cruz LPN. [facility] Miscellaneous Notes* Telephone Encounter - Annetta De La Cruz LPN - 12/19/2023 5:01 PM EDT Patient has been identified by name and date of : Yes, Provider Dr. Oneill Date 12/19/23 Time5:02 pm Pharmacy phones for refill(s): Requested Prescriptions Pending Prescriptions Disp Refills warfarin (COUMADIN) 7.5 mg tablet 90 tablet 1 Sig: Take 1 tablet by mouth once daily. Date of last office visit in primary care: 07/11/2023 Date of next office visit in primary care: 01/29/2024 Thank you. Annetta De La Cruz LPN. documented in this encounterR[facility]05-[facility]24 Instructions* Patient Instructions* Stefani Fry PA-C - 12/19/2023 2:13 PM EDT - Continue current medications as prescribed - Complete lab work first thing in the morning or 8 hours after initial dose - Follow up in 5 months, sooner if needed. documented in this encounterR[facility] History of Present illness Narrative* Xavi Xie MD - 12/19/2023 2:05 PM EDT Attending Note I have personally performed a face to face assessment of the patient and have reviewed the JOSEF note. My lazo findings include: The patient has a history of focal epilepsy. He was having monthly seizures out of sleep at last visit. We changed the time of dosing of medications. He then had COVID-19 infection in April 2023 - he had break through seizures and he was admitted to the epilepsy monitoring unit. Keppra was added to his antiseizure medications. He is taking Lamictal 200mg twice dialy, Vimapt 200mg twice daily,Zonegran 400mg in PM and 200mg at bedtime and Keppra 1500mg twice daily. He takes all the first dose at lunch and second dose at 10PM. Since Keppra was added he has not had any seizures since April 2023. Exam is unchanged Assessment/Plan are continue current doses of ASMs. Check levels. Other additions or changes: As edited Signature: Xavi Xie Date: 12/19/2023 Time: 2:05 PM * Stefani Fry PA-C - 12/19/2023 1:40 PM EDT [facility] Patient Name: Eder Breen Date of : 1955 Referring Provider: SELF ESTABLISHED EPILEPSY CLINIC NOTE 12/19/2023 1:30 PM Reason for Visit: Established Patient, Follow Up, and Epilepsy Clinical Summary: Mr. Breen is a 68 year old right-handed male [facility]. 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 The history of seizures began in childhood, around 5-6 years old. At that age, his seizures consisted of episodes of passing out with a tongue occasionally. He was told he had grand mal seizures. Currently his seizures occur typically at night time, out of sleep. The last seizure he had while he was awake was around 20 some years ago. Because his current seizures occur out of sleep, he has nowarning prior his seizures. His states that she hears him make a yelling noise then she seeinghim shaking and biting down on his tongue. After this he breathes heavily, salivates excessively, and appears confused. He will stand on top of the bed confused after the seizure. He appears scared and disoriented at that point. These seizures lasts about five minutes. The confusion after the seizures lasts for 15-20 minutes. There is a past history of urine incontinence with some of the seizures. There is another seizure type that occurs out of sleep as well in which he will make a noise (like a shhing noise or grunting sounds) during this he is patting his right hand on his thigh. If the seizure occurs while he is in a recliner he will lift the lever on the side, up and down repetitively. After the seizure he may walk around and get ready work inappropriately. This seizure last for five or six minutes. The confusion last for 15-20 minutes. During this time he is disoriented but able to respond. In one of the seizures he was confused afterwards and left the house in his underwear and was brought back his the police. The last seizure occurred in this month. He had two seizures in a row a few hours a part with the last seizure. One was a grand mal and other was the second seizure type. His typical seizure frequency is once or twice a month. The seizure are triggered by illness such as a flu and occasionally by missing a dose of medication. 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 This occurred around 9 years ago. His heard a crash, and found him on the edge of the bed and he damaged his right eye on a night stand. The eye needed enucleated because it could not be salvaged. There is no history of status epilepticus. I spoke to his sister, Lidia, on the phone. There was an apparent history of a head trauma prior to the seizure in which she was told that she dropped him on the driveway. But she has no recollection of this actually happening. She told me that she was told that doctors had said that there was a lesion found on the brain in the left frontal lobe (possibly scar tissue). He has been on a combination of Tegretol and Lamictal for the last 13 years. He has been taking this dose for the last 13 years as well. Postictal symptoms include confusion. Possible lateralizing signs by history: None Interval Seizure History Last seen on 03/14/[address] Xie. At the last visit, the patient continued to report monthyl seziures. Stated they were out of sleep around 1-2 PM while the patient would nap. Dosing of medication was adjusted so he would take his ASMs at lunch time and 10 PM. Patient was continued on LTG 200 mg BID, LCM 200 mg BID, and ZNS dosing was adjusted to 400/200 mg daily (same total dosage). Patient presented to the ED in 04/2023. He was admitted to the EMU from 04/19/23- 04/23/23 d/t breakthrough seizure activity in the setting of being + for COVID- 19. No seizures were recorded while the patient was in the EMU. LEV was 1500 mg BID was added to his ASM regimen for better seizure control. Patient is currently taking LTG 200 mg BID, LCM 200 mg BID, ZNS 400/200 mg daily, and LEV 1500 mg BID. States he does not have side effect to medication if he takes it on a full stomach. Reports compliance, takes medications at lunch time and 10 PM. There have been no seizures since the last visit. Last seizure was in 04/2023. Mood: Stable. Denies SI or HI. Sleep: Stable. Total # of Current Anti-seizure Medications: Side Effects to Current Anti-seizure Medications: Seizure Frequency at First Visit: 2 per month Longest Seizure-free Interval: 1 months Number of seizure types: 2 Hx of generalized tonic-clonic seizures: Yes Tongue bite: No Urine or Bowel Incontinence: Yes Triggers: intercurrent illness Memory complaints: Some short term memory problems Status Epilepticus or clusters: No Postictal Agitation: No (Comment: Disoriented after the seizure) Significant Injuries from Seizures: Enucleation of right eye when he fell into a corner of his night stand during a seizure Seizure-related driving accidents: N/A Driving: No Lives Alone: Yes Highest Level of Education: High school graduate (includes GED) CURRENT OUTPATIENT ANTISEIZURE MEDICATIONS (as of the start of the encounter) levETIRAcetam (KEPPRA) 750 mg tablet (Taking) TAKE 2 TABLETS TWICE A DAY lacosamide (VIMPAT) 200 mg (Taking) Take 1 tablet by mouth daily with lunch AND 1 tablet every evening. Do all this for 180 days. zonisamide (ZONEGRAN) 100 mg capsule (Taking) TAKE 4 CAPSULES EVERY DAY WITH LUNCH AND TAKE 2 CAPSULES EVERY EVENING lamoTRIgine (LAMICTAL) 200 mg tablet (Taking) TAKE 1 TABLET BY MOUTH DAILY WITH LUNCH AND 1 TABLET EVERY EVENING. levETIRAcetam (KEPPRA) 750 mg tablet (Taking) Take 2 tablets by mouth twice daily. Prior Anti-seizure Therapies: Trial Adequacy: Max Daily Dose Achieved: Side Effects: Effectiveness: Comments: Brivaracetam Carbamazepine Lacosamide Lamotrigine Levetiracetam Phenobarbital Phenytoin Valproate Zonisamide Comorbidities: Episode Description: SEIZURE TYPE 1: Focal to bilateral tonic-clonic seizure Onset: 5 years Aura: no Description: These occur out of sleep. No warning. He will cry out or yell. Breathes heavy. Arms and legs extend out. He becomes rigid and will have tonic clonic movements. He bites his tongue. No urinary incontinence. Duration of 5 minutes. He calms down after 10-15 minutes and goes back to sleep. Loss of awareness: Duration: Frequency: Last occurred: yes 5 to 10 minutes 0 per month April 2023 SEIZURE TYPE 2: Focal impaired awareness seizures (Complex motor seizure) Onset: 5 years Aura: no Description: This seizure type occurs out of sleep as well in which he will make a noise (like a shhing noise or grunting sounds) during this he is patting his right hand on his thigh. If the seizure occurs while he is in a recliner he will lift the lever on the side, up and down repetitively. After the seizure he may walk around and get ready work inappropriately. This seizure last for five orsix minutes. The confusion last for 15-20 minutes. During this time he is disoriented but able to respond. In one of the seizures he was confused afterwards and left the house in his underwear and was brought back his the police. Loss of awareness: Duration: Frequency: Last occurred: yes between 5 and 10 minutes 0 per month April 2023 Patient Entered Data: EPILEPSY SCORE No Data PHQ-9 SCORE - ABNER 2 SCORE - ABNER 7 SCORE - QOLIE-10 SCORE (0=worst; 100=best QoL - higher scores represent better function) - LSSS SCORE (0- no seizures 100- most severe possible seizures) - C-SSRS SCREEN - On average, how many hours of sleep do you get in a 24-hour period? - PROMIS Sleep Disturbance T-SCORE - Have you been diagnosed with Sleep Apnea? 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 He was admitted to the epilepsy monitoring unit from 04/19/2023-04/23/2023 for breakthrough seizures in the setting of positive covid 19 infection. Patient was transferred from the stepdown unit to the epilepsy unit on 04/19/23EEG showed generalized continuous slowing, with higher amplitude in the right hemisphere maximal in the frontotemporal region. Infrequent right frontotemporal and rare left temporal sharp transients noted. No seizures were captured. Patient was evaluated by Infectious Disease during admission who recommended a 3 day course of Remdesivir loading dose 200 mg x 1 then 100 mg daily for 3-days, which was completed during admission. Levetiracetam 1500 mg twice daily was also added to his home ASM home regimen of Lamictal, Vimpat and Zonegran. Seizure precautions reiterated and he was discharged to home in stable condition. He will follow-up in OP clinic with Dr. Xavi Xie. Video-EEG [facility] 10-16-1998 through 10-21-1998 Interictal: 1. Sharp waves, multiregional, right and left hemisphere 2. Intermittent slow, generalized and regional right and left temporal Ictal: 1a) EEG Seizure: Lateralized left hemisphere 1b) Seizures: Complex motor seizure 2a) EEG Seizure: Non-localizable 2b) Seizures: Complex motor seizure 3a) EEG Seizure: Non-localizable 3b) Seizures: Generalized tonic/clonic seizure Multiregional sharp waves were recorded and the most abundant spike population was in the right fronto-temporal region ( max F10, FT10 ) which accounted for 80% of the total spike population. They were seen with a frequency of 6 per minute. Sometimes they appeared in runs of 3 or 4. They were especially abundant during the last days of recording. Right frontal spikes (max FP2) were seen mainly during sleep, approximately once every 5 minutes. They were widely distributed over the right hemisphere and were also seen over the left frontal region. In addition, there were right mesio-temporal spikes (SP2 max, 5% of the total) and left frontal spikes (F7 max, 10% of the total). Three seizures were recorded. All of then originated out of sleep. Two seizures were complex motor in nature. Barron had an arousal, stared and looked around, he had repetitive flailing movements of the left hand first and then flailing of the right hand. Some of these movements had an automotor flavor to them. Barron also moved around in bed, rocking from side to side, thrashing around and fumbling with the sheets. He was unresponsive during these episodes, which lasted two minutes in duration. Postictally, he was very confused and his language was not reliable. The EEG showed a lateralized pattern to the left hemisphere in the first complex motor seizure with attenuation of the background (especially in the paracentral chain) and rhythmic delta more evident over the left hemisphere. The second complex motor seizure was not localizable on EEG and consisted of a diffuse rhythmic theta that evolved into higher delta frequencies. Barron also had one generalized tonic/clonic seizure without a p receding aura or complex motor phase. The EEG showed a generalized sharp wave which seemed to be higher over the right frontal region. The seizure pattern was immediately obscured by muscle artifact Previous EEG (August 04, 1998, [facility]) Classification Normal (Awake, Sleep, Anterior temporal electrodes) Previous Two hour EEG with video (September 08, 1998, [facility]) Classification Abnormal III (Awake, Sleep) 1 Sharp Wave, Generalized, Maximum bifrontal 2 Sharp Wave, Regional right fronto-temp. No seizures were recorded Previous MRI (September 08, 1998, [facility]): NORMAL BRAIN. 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 HIGH RESOLUTION CT OF THE SKULL BASE COULD BE PERFORMED FOR FURTHER EVALUATION IF CLINICALLY WARRANTED. VIDEO-EEG CLASSIFICATION 12/23/2012-12/27/2012 Abnormal III Awake and Sleep (Scalp electrodes) Interictal: Sharp wave, regional right frontal Sharp wave, regional right fronto-temporal Intermittent rhythmic slow lateralized right hemisphere, maximum frontal Intermittent slow, generalized Ictal: Clinical Seizure: Complex motor seizure -> Generalized tonic clonic seizure EEG seizure, lateralized right hemisphere EEG seizure, bifrontal right > left Clinical Seizure: Automotor seizure EEG seizure, lateralized left hemisphere SEEG CLASSIFICATION 01/22/2014- 01/27/2014 Abnormal III Awake and Sleep (SEEG invasive electrodes) Interictal: (Complicated multiregional spike populations with rare isolated spikes)- see below Hippocampus (C2>4, B4>3>2) Amygdala ( A1,A4) Temporal pole (I1>2) MTG ( B12>11, I7>6, C12>13) Rostral Gyrus (O2>1) Precuneus ( P1-4) Angular gyrus (9-14) Ictal: Clinical Seizure: Automotor>Ictal speech>Complex motor> Vocalization (tonic) Clinical Seizure: NCS> Vocalization (tonic)> Automotor> Complex motor EEG seizure: Diffuse, multiregional (non-localizable) Other caregivers: Primary Care Provider: Hari Oneill, DO Current Outpatient Medications Medication Sig levETIRAcetam (KEPPRA) 750 mg tablet TAKE 2 TABLETS TWICE A DAY lacosamide (VIMPAT) 200 mg Take 1 tablet by mouth daily with lunch AND 1 tablet every evening. Do all this for 180 days. zonisamide (ZONEGRAN) 100 mg capsule TAKE 4 CAPSULES EVERY DAY WITH LUNCH AND TAKE 2 CAPSULES EVERYEVENING lamoTRIgine (LAMICTAL) 200 mg tablet TAKE 1 TABLET BY MOUTH DAILY WITH LUNCH AND 1 TABLET EVERY EVENING. levothyroxine (LEVOXYL) 88 mcg tablet Take 1 tablet by mouth daily before breakfast. Take on empty stomach 30 minutes before eating. For Thyroid meloxicam (MOBIC) 15 mg tablet Take 1 tablet by mouth once daily. With food. warfarin (COUMADIN) 7.5 mg tablet Take 1 tablet by mouth once daily. FLUoxetine (PROZAC) 40 mg capsule Take 1 capsule by mouth once daily. in the morning for mood warfarin (COUMADIN) 5 mg tablet Take 7.5mg Mon, Wed, Fri, Sat, Sun of this next week. He should take 10mg . Recheck INR level in 1 week. By mouth. levETIRAcetam (KEPPRA) 750 mg tablet Take 2 tablets by mouth twice daily. diclofenac (VOLTAREN ARTHRITIS PAIN) 1 % topical gel Apply 2 g to affected area four times daily. furosemide (LASIX) 40 mg tablet Take 1 tablet by mouth once daily. cyanocobalamin, vitamin B-12, (VITAMIN B-12 ORAL) Take 1 tablet by mouth once daily. No current facility-administered medications for this visit. 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 pylori infection 11/2013 Hemorrhoids History of DVT/PE 01/12/2013 - history of saddle PE in 2010 - IVC filter placed in 2011 possible in the setting of increased risk of falls while on coumadin - coumadin use complaicated by GI bleeding in the setting of supratherapeutic INR, warfarin stopped in 11/2012 - Repeat DVT involving common iliac/femoral and IVD distal tothe filter in 01/2013 while off coumadin, restarted on coumadin - Currently sub therapeutic on coumadin PLAN: -Increase coumadin to 7.5 mg daily - continue coumadin for life in the setting of PE Continue to bridge with lovenox as INR subtherapeutic. 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 sclerosis 07/2013 by echo WILBERTO (obstructive sleep apnea) Pulmonary embolism (HCC) hx of S/P insertion of IVC (inferior vena caval) filter thrombosed (S/P Lysis) Seizures (HCC) Snoring SUMMARY 01/12/2013 Mr Breen is a 58 y M with a medical history significant for: - Grade 3 Follicilar lymphoma, 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 Recent DVT in the common iliac, femoral and IVC distal to the IVD filter in 01/2013 while off coumadin. Currently on coumadin and no bleeding episodes/ falls Who is transferred from [facility] for the further evaluation of his dizziness which started about 3 -4 days ago and is now re Traumatic brain injury (HCC) There is a questionabale history of around age of 3 year he was dropped on the driveway may have lost consciousness Traumatic brain injury (HCC) There is a questionabale history of around age of 3 year he was dropped on the driveway may have lost consciousness Unspecified epilepsy without mention of intractable epilepsy (HCC) Vitamin B12 deficiency 11/2013 Vitamin D deficiency normal level 11/2011 PAST SURGICAL HISTORY Procedure Laterality Date APPENDECTOMY HX COLONOSCOPY FLX DX W/COLLJ SPEC WHEN PFRMD 12/27/2009 Colonoscopy COLONOSCOPY FLX DX W/COLLJ SPEC WHEN PFRMD 05/03/2021 ESOPHAGOGASTRODUODENOSCOPY TRANSORAL DIAGNOSTIC 02/12/2012 EGD ESOPHAGOGASTRODUODENOSCOPY TRANSORAL DIAGNOSTIC 03/27/[address] [facility] inpt ESOPHAGOGASTRODUODENOSCOPY TRANSORAL DIAGNOSTIC 06/04/2012 EGD ESOPHAGOGASTRODUODENOSCOPY TRANSORAL DIAGNOSTIC N/A 11/13/2016 ESOPHAGOGASTRODUODENOSCOPY TRANSORAL DIAGNOSTIC 02/15/2018 EGD ESOPHAGOGASTRODUODENOSCOPY TRANSORAL DIAGNOSTIC 05/03/2021 INSJ TUNNELED CTR VAD W/SUBQ PORT AGE 3 YR/> 04/11/2012 INTRO. OF CATH SUP/INF VENA CAVA 04/09/2012 IVC FILTER PAST SURGICAL HISTORY OF ? right eye blind, injured during seizure FAMILY HISTORY Problem Relation Age of Onset Stroke Mother Cancer Mother patient states he came from an infection due to a back injury SOCIAL HISTORY: -Lives in [place], [place] -Patient lives alone? Yes -Vocation: -Education: High school graduate (includes GED) -Cigarette, alcohol, substance use: None -Functional status: independent in activities of daily living -Patient driving? No Review of Systems VITAL SIGNS: BP 150/78 (BP Site: Left Arm, BP Position: Sitting, BP Cuff Size: Extra Large Adult) Pulse 79 Resp 18 Ht 182.9 cm (6') Wt 122 kg (269 lb) SpO2 96% BMI 36.48 kg/m General Examination: He is accompanied by his spouse. General: Awake, alert, interactive, no acute distress, good nutritional status, normal development Neurological Exam Mental Status Alert, fully oriented, attentive, with normal cognition, memory, speech and affect. Cranial Nerves Patient suffered injury to right eye years ago d/t seizure. Left extraocular movements conjugate and full. No ptosis. No nystagmus of left eye. Face symmetric and strong. Palate and tongue normal. XInormal. Motor Examination and Coordination Motor examination with normal bulk, strength and tone. No drift. No adventitious movements or significant tremor. Sensation Sensation intact to light touch Gait Gait normal IMPRESSION: The patient's evaluation to date supports a diagnosis of a multifocal epilepsy or focal epilepsy not clearly localized (some evidence that the onset patterns could be explained by a posterior parietal onset but could not be proven by SEEG). No resection was performed after his SEEG in 2013. His seizure semiology recorded during an SEEG evaluation in 2013 consisted of two types: 1) epileptic arousal, stereotypic movements of his upper extremities, right arm dystonia, brief oral automatism and left arm rhythmic circling (this seizure type was associated with ictal speech); 2) period of no clinical signs followed by stare and loud high pitch vocalization (yelping sounds) followed by oral automatism then grasping movements. The SEEG ictal onsets were nonlocalizable and felt to have multiregional involvement. The interictal findings from his SEEG showed multiregional spikes in the right hemisphere (hippocampus, amygdala,temporal pole, middle temporal gyrus, gyrus rectus, precuneus and angular gyrus). His MRI scan of brain was read as nonlesional. Voxel based morphometric analysis showed possible VBM lesions in the right premotor cortex (near the precentral sulcus and rostral right superior frontal gyrus). 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 Interval Impression: Patient denies any seizure activity since 04/2023 when Keppra was added to his ASM regimen following EMU admission. Patient is currently taking LTG 200 mg BID, LCM 200 mg BID, DSR399/200 mg daily, and LEV 1500 mg BID. Denies side effects if he takes medication on a full stomach. PLAN: - Continue LTG 200 mg BID - Continue LCM 200 mg BID - Continue ZNS 400/200 mg daily - Continue LEV 1500 mg BID - Patient advised to continue taking ASMs at lunch time and 10 PM - Labs: LCM, LTG, ZNS, and LEV ordered. Trough levels discussed. - Follow up in 5 months, sooner if needed. Testing Ordered anticonvulsant level Education The following issues were discussed with the patient on this visit and written instructions provided as below- Seizure precautions and safety, seizure first aide, when to seek emergency care. Counseling was provided to the patient that missed medications, addition of some new medications, use of alcohol or other substances, and sleep deprivation can lower the seizure threshold. I discussed the risk of depression and psychological comorbidities in patients with epilepsy and when to seek help as well as the black box warning of all antiepileptic medications which can increaserisk for suicidality. Medical Management Continue current medications. The possibility of serious and adverse reactions were discussed in detail as well as proper use of medication. I discussed that not taking this medication as directed could worsen seizures and can bedangerous. I discussed the risks, benefits and alternatives of the medical plan with the patient. Questions were answered. The patient agreed with the plan as discussed. FOLLOW-UP: Return in about 5 months (around 05/20/2024). I spent a total of 30 minutes on the date of the service which included: preparing to see the patient [id number] patient care completing clinical documentation obtaining and/or reviewing separately obtained history performing a medically appropriate examination counseling and educating the patient/family/caregiver ordering medications, tests, or procedures Stefani Fry PA-C cc: Primary Care Physician: Hari Oneill DO [id number] [facility] [id number] Referring: SELF Phone: N/A Fax: Patient: Mr. Eder Breen [id number] [facility] [address] documented in this encounterR[facility] Telephone encounter Note * Telephone Encounter - Natasha Bergeron PA-C - 12/13/2023 12:29 PM EDT The following approved medication requests have been transmitted electronically. Requested Prescriptions Signed Prescriptions Disp Refills levETIRAcetam (KEPPRA) 750 mg tablet 360 tablet 3 Sig: TAKE 2 TABLETS TWICE A DAY Authorizing Provider: NATASHA BERGERON PA-C [facility]05-09-2024 Miscellaneous Notes* Telephone Encounter - Natasha Bergeron PA-C - 12/13/2023 12:29 PM EDT The following approved medication requests have been transmitted electronically. Requested Prescriptions Signed Prescriptions Disp Refills levETIRAcetam (KEPPRA) 750 mg tablet 360 tablet 3 Sig: TAKE 2 TABLETS TWICE A DAY Authorizing Provider: NATASHA BERGERON PA-C documented in this encounterRivers[facility]04-19-2024 Miscellaneous Notes* Telephone Encounter - Xavi Xie MD - 11/23/2023 9:01 AM EDT Patient's request for medication is as follows: Requested Prescriptions Pending Prescriptions Disp Refills lacosamide (VIMPAT) 200 mg 180 tablet 1 Sig: Take 1 tablet by mouth daily with lunch AND 1 tablet every evening. Do all this for 180 days. Prescription(s) as above. Escripted. Xavi Xie MD * Telephone Encounter - Emily Allan - 11/23/2023 8:42 AM EDT Prescription Refill: sig only Requested by: pharmacy Please E-Scribe Caller Contact Number: Pharmacy Name: [facility] Number: [phone] Generic/ brand: 30 or 90 day supply requested: 90 Last appointment: 03/14/23 Next Appointment: 12/19/[address] Xie documented in this encounterR[facility]03-26-2024 Miscellaneous Notes* Telephone Encounter - Mi Guaman PA-C - 10/30/2023 2:13 PM EDT The following approved medication requests have been transmitted electronically. Requested Prescriptions Signed Prescriptions Disp Refills zonisamide (ZONEGRAN) 100 mg capsule 540 capsule 0 Sig: TAKE 4 CAPSULES EVERY DAY WITH LUNCH AND TAKE 2 CAPSULES EVERY EVENING Authorizing Provider: MI GUAMAN PA-C documented in this encounterRivers[facility]03-05-2024 Miscellaneous Notes* Telephone Encounter - Mitch Nunn APRN.CNP - 10/09/2023 8:55 AM EST The following approved medication requests have been transmitted electronically. Requested Prescriptions Signed Prescriptions Disp Refills lamoTRIgine (LAMICTAL) 200 mg tablet 180 tablet 3 Sig: TAKE 1 TABLET BY MOUTH DAILY WITH LUNCH AND 1 TABLET EVERY EVENING. Authorizing Provider: MITCH NUNN APRN.CNP * Telephone Encounter - Emily Allan - 10/09/2023 8:48 AM EST Prescription Refill: Requested by: pharmacy Please E-Scribe Caller Contact Number: Pharmacy Name: [facility] Pharmacy Number: [phone] Generic/ brand: 30 or 90 day supply requested: 90 Last appointment: 03/14/23 Next Appointment: 12/19/[address] Xie documented in this encounterRivers[facility]03-04-2024 Miscellaneous Notes* Telephone Encounter - Marjan Betancourt LPN - 10/08/2023 9:52 AM EST Patient has been identified by name and date of : Yes, Provider Dr. Oneill Date 10/08/23 Time 9:53 Patient phones for refill(s): Requested Prescriptions Pending Prescriptions Disp Refills levothyroxine (LEVOXYL) 88 mcg tablet 90 tablet 1 Sig: Take 1 tablet by mouth daily before breakfast. Take on empty stomach 30 minutes before eating.For Thyroid Date of last office visit in primary care: 07/11/2023 Date of next office visit in primary care: 01/29/2024 Please advise. Thank you. Marjan Betancourt LPN. * Telephone Encounter - Niurka Justice - 10/08/2023 9:29 AM EST Pharmacy verified in Epic Patient has been identified by name and date of : Yes Patient aware RX will be sent to pharmacy. No need to notify patient. Significant other phones for refill(s): Requested Prescriptions Pending Prescriptions Disp Refills levothyroxine (LEVOXYL) 88 mcg tablet 90 tablet 1 Sig: Take 1 tablet by mouth daily before breakfast. Take on empty stomach 30 minutes before eating.For Thyroid Date of last office visit : 07/11/2023 Date of next office visit : 01/29/2024 Last 2 Encounter Wt Readings: Date: Wt: 07/11/2023 122 kg (269 lb) 05/01/2023 116.1 kg (256 lb) Please advise. Niurka Doherty Pss documented in this encounterRivers[facility] Hospital02-23-2024 Miscellaneous Notes* Telephone Encounter - Sobeida Nair LPN - 09/28/2023 12:56 PM EST Note below says no need to notify patient. * Telephone Encounter - Suyapa Lira APRN.CNP - 09/28/2023 9:52 AM EST The following approved medication requests have been transmitted electronically. Requested Prescriptions Signed Prescriptions Disp Refills meloxicam (MOBIC) 15 mg tablet 90 tablet 1 Sig: Take 1 tablet by mouth once daily. With food. Authorizing Provider: HARI ONEILL Ordering User: SUYAPA LIRA APRN.CNP * Telephone Encounter - Saumya Reid - 09/27/2023 11:29 AM EST Patient has been identified by name and date of : Yes meloxicam (MOBIC) 15 mg tablet 90 tablet 1 RX INSTRUCTIONS: Patient aware RX escripted to mail away pharmacy. No need to notify patient. Saumya Mancilla documented in this encounterR[facility]02-12-2024 Miscellaneous Notes* Telephone Encounter - Erica Silva RN - 09/17/2023 9:06 AM EST Spoke with patients . She received letter from [facility] regarding renewal. Explained that she needs to call them and find out status and let us know what we need to do on ourpart. She verbalized understanding Erica Silva, RN * Telephone Encounter - Nohemi Robbins - 09/17/2023 8:30 AM EST Medication Concern Person Calling Dylon Breen, Name of medication Vimpat - patient has 1.5 days left Concern with medication Please call Mrs. Breen to discuss application and script. Patient of Dr. Xie documented in this encounterRivers[facility] Hospital12-14-2023 Miscellaneous Notes* Telephone Encounter - Estella Hedrick MA - 07/19/2023 10:55 AM EST Spoke to . wrote directions down & verbalized understanding. Tracker updated. Estella Hedrick MA * Telephone Encounter - Selena Berg LPN - 07/18/2023 8:12 PM EST Pt. informed detailed message left on VM to return call and verify message. * Telephone Encounter - Hari Oneill DO - 07/18/2023 8:08 PM EST Have him decrease dose of coumadin to 7.5 mg a day, recheck INR 1 week ;Hari Oneill DO * Telephone Encounter - Mago Humphrey - 07/18/2023 12:59 PM EST Patient calling in to advise she made an error on the coumadin strength. 10 mg is Sunday and 7.5 mg on all other days Please make this noted correction * Telephone Encounter - Selena Berg LPN - 07/18/2023 9:44 AM EST Last INR: INR Home CoaguChek 3.9 07/17/2023 Current dose of coumadin is: 10 mgt daily. Previous INR (date and result): 04/27 1.2 Additional Clinical Information or narrative: no documented in this encounterRiverside [facility] Hospital12-07-2023 Miscellaneous Notes* Telephone Encounter - Erica Silva RN - 07/12/2023 12:20 PM EST Spoke with patients . Patient is having eye surgery and Doctor needs letter for clearance. Letter drafted and routed to Dr. Xie for signature thru docusign. One copy faxed to Dr. Coulter [phone] Erica Silva RN * Telephone Encounter - Ivette Laura - 07/11/2023 2:45 PM EST Patients spouse called back. Stated they may use versed or fentanyl if that is okay. And to please fax the letter to Dr. Coulter [phone] * Telephone Encounter - Emily Allan - 07/11/2023 11:42 AM EST General call : Full name of person calling: Dylon Breen Relationship to patient: Phone # : [phone] (home) Reason for call: clearance ( anesthesia) for surgery Patient of Dr. Xie documented in this encounterRiverside [facility] Hospital12-06-2023 History of Present illness Narrative* Hari Oneill, - 07/11/2023 4:13 PM EST \ CC: Eder Breen is a 68 year old male who presents to the office for follow up HPI: Weight gain, currently 269 lbs Scheduled for 08/13/2023 for left cataract surgery by Dr. Elen Coulter at [facility]. Hehasn't gotten ahold of his neurologist to clarify regarding anesthesia for this procedure due to his seizure disorder Seizure disorder, has recently had several medication changes by Neurologist due to severe breakthrough seizures. + increased thirst, drinking 8 glasses of 16 oz of water per glass. He is unsure what is trigger this. Hx of hyperglycemia. No previous hx of diabetes in the past. feels that he eats a lot of starches and carbohydrates. He eats pizza that he makes at home atleast 2-3 days a week as well as potatoes and breads etc. He states that he struggles to know what and how to cook for himself in a healthy way and that growing up as a child he wasn't taught to eat vegetables. 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 pylori infection 11/2013 Hemorrhoids History of DVT/PE 01/12/2013 - history of saddle PE in 2010 - IVC filter placed in 2011 possible in the setting of increased risk of falls while on coumadin - coumadin use complaicated by GI bleeding in the setting of supratherapeutic INR, warfarin stopped in 11/2012 - Repeat DVT involving common iliac/femoral and IVD distal tothe filter in 01/2013 while off coumadin, restarted on coumadin - Currently sub therapeutic on coumadin PLAN: -Increase coumadin to 7.5 mg daily - continue coumadin for life in the setting of PE Continue to bridge with lovenox as INR subtherapeutic. 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 sclerosis 07/2013 by echo WILBERTO (obstructive sleep apnea) Pulmonary embolism (HCC) hx of S/P insertion of IVC (inferior vena caval) filter thrombosed (S/P Lysis) Seizures (HCC) Snoring SUMMARY 01/12/2013 Mr Breen is a 58 y M with a medical history significant for: - Grade 3 Follicilar lymphoma, 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 Recent DVT in the common iliac, femoral and IVC distal to the IVD filter in 01/2013 while off coumadin. Currently on coumadin and no bleeding episodes/ falls Who is transferred from [facility] for the further evaluation of his dizziness which started about 3 -4 days ago and is now re Traumatic brain injury (HCC) There is a questionabale history of around age of 3 year he was dropped on the driveway may have lost consciousness Traumatic brain injury (HCC) There is a questionabale history of around age of 3 year he was dropped on the driveway may have lost consciousness Unspecified epilepsy without mention of intractable epilepsy (HCC) Vitamin B12 deficiency 11/2013 Vitamin D deficiency normal level 11/2011 PAST SURGICAL HISTORY Procedure Laterality Date APPENDECTOMY HX COLONOSCOPY FLX DX W/COLLJ SPEC WHEN PFRMD 12/27/2009 Colonoscopy COLONOSCOPY FLX DX W/COLLJ SPEC WHEN PFRMD 05/03/2021 ESOPHAGOGASTRODUODENOSCOPY TRANSORAL DIAGNOSTIC 02/12/2012 EGD ESOPHAGOGASTRODUODENOSCOPY TRANSORAL DIAGNOSTIC 03/27/[address] [facility] inpt ESOPHAGOGASTRODUODENOSCOPY TRANSORAL DIAGNOSTIC 06/04/2012 EGD ESOPHAGOGASTRODUODENOSCOPY TRANSORAL DIAGNOSTIC N/A 11/13/2016 ESOPHAGOGASTRODUODENOSCOPY TRANSORAL DIAGNOSTIC 02/15/2018 EGD ESOPHAGOGASTRODUODENOSCOPY TRANSORAL DIAGNOSTIC 05/03/2021 INSJ TUNNELED CTR VAD W/SUBQ PORT AGE 3 YR/> 04/11/2012 INTRO. OF CATH SUP/INF VENA CAVA 04/09/2012 IVC FILTER PAST SURGICAL HISTORY OF ? right eye blind, injured during seizure Current Outpatient Medications Medication Sig levETIRAcetam (KEPPRA) 750 mg tablet Take 2 tablets by mouth two times a day. zonisamide (ZONEGRAN) 100 mg capsule Take 4 capsules by mouth daily with lunch AND 2 capsules everyevening. levothyroxine (LEVOXYL) 88 mcg tablet Take 1 tablet by mouth daily before breakfast. Take on empty stomach 30 minutes before eating. For Thyroid lamoTRIgine (LAMICTAL) 200 mg tablet Take 1 tablet by mouth daily with lunch AND 1 tablet every evening. meloxicam (MOBIC) 15 mg tablet Take 1 tablet by mouth once daily. With food. warfarin (COUMADIN) 5 mg tablet Take 7.5mg Mon, Wed, Fri, Sat, Sun of this next week. He should take 10mg . Recheck INR level in 1 week. By mouth. levETIRAcetam (KEPPRA) 750 mg tablet Take 2 tablets by mouth twice daily. warfarin (COUMADIN) 7.5 mg tablet Take 1 tablet by mouth once daily. diclofenac (VOLTAREN ARTHRITIS PAIN) 1 % topical gel Apply 2 g to affected area four times daily. furosemide (LASIX) 40 mg tablet Take 1 tablet by mouth once daily. cyanocobalamin, vitamin B-12, (VITAMIN B-12 ORAL) Take 1 tablet by mouth once daily. FLUoxetine (PROZAC) 40 mg capsule Take 1 capsule by mouth once daily. in the morning for mood lacosamide (VIMPAT) 200 mg Take 1 tablet by mouth daily with lunch AND 1 tablet every evening. Do all this for 180 days. No current facility-administered medications for this visit. 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 Uvula midline. MMM, poor dentition Neck: No LAD, no thyromegaly, no meningismus. CV: RRR, no murmur Lungs: CTA b/l, no wheezing Skin: No rashes, lesions, or wounds on exposed skin. Central obesity No peripheral edema Normal peripheral pulses Hemoglobin A1C Date Value Ref Range Status 11/27/2022 5.6 4.3 - 5.6 % Final Comment: [place] Diabetes Association guidelines indicate that patients with HgbA1c in the range 5.7-6.4% are at increased risk for development of diabetes, and intervention by lifestyle modification may be beneficial. HgbA1c greater or equal to 6.5% is considered diagnostic of diabetes. 07/10/2022 5.6 4.3 - 5.6 % Final Comment: [place] Diabetes Association guidelines indicate that patients with HgbA1c in the range 5.7-6.4% are at increased risk for development of diabetes, and intervention by lifestyle modification may be beneficial. HgbA1c greater or equal to 6.5% is considered diagnostic of diabetes. 06/18/2021 5.6 4.3 - 5.6 % Final Comment: [place] Diabetes Association guidelines indicate that patients with HgbA1c in the range 5.7-6.4% are at increased risk for development of diabetes, and intervention by lifestyle modification may be beneficial. HgbA1c greater or equal to 6.5% is considered diagnostic of diabetes. 04/19/2020 5.5 4.3 - 5.6 % Final Comment: [place] Diabetes Association guidelines indicate that patients with HgbA1c in the range 5.7-6.4% are at increased risk for development of diabetes, and intervention by lifestyle modification may be beneficial. HgbA1c greater or equal to 6.5% is considered diagnostic of diabetes. Hemoglobin A1C (POCT) Date Value Ref Range Status 07/11/2023 5.5 4.2 - 5.6 % Final Comment: Location:[facility], [address] [place] [address], [place], [address] Point of care (POC) Hemoglobin A1c (HGBA1C) testing is intended to assess glucose control and provide a management tool for patients known to have diabetes and their healthcare providers. Target HGBA1C levels may depend on specific clinical circumstances. POC HGBA1C is not intended for use as a diagnostic or screening test; laboratory-based testing should be used for diagnostic purposes. The following information is supplemental and may not be applicable to specific diabetes management situations: The POC device university relations vice president provides a normal range of 4.2% to 6.5% for the HGBA1C POC test. However, the [place] Diabetes Association guidelines indicate that patients with HGBA1C in the range of 5.7% to 6.4% are at increased risk for development of diabetes and that intervention by lifestyle modification may be beneficial. A HGBA1C level greater than or equal to 6.5% is considered diagnostic of diabetes, pending confirmatory testing. Use of HGBA1C testing to evaluate glucose control may not be appropriate for patients with hemoglobin variants or other conditions (e.g. anemia) that alter red blood cell lifespan. ASSESSMENT/PLAN: 1. IFG (impaired fasting glucose) - ICD9: 790.21, ICD10: R73.01 (primary diagnosis) Need for dietary changes and weight loss as d/w him and his today in the office. A1c at 5.5% and has weight gain and HPL and risk factors for coronary arttery disease. - HEMOGLOBIN A1C (POC) 2. Polydipsia - ICD9: 783.5, ICD10: R63.1 No signs of diabetes, f/u with Neurologist- may be related to his seizures and medications. - HEMOGLOBIN A1C (POC) 3. Dysthymia - ICD9: 300.4, ICD10: F34.1 Increase dose of prozac to see if this helps with his sugars/starch cravings and overeating and weight gain - FLUOXETINE 40 MG CAPSULE 4. Chronic anticoagulation - ICD9: V58.61, ICD10: Z79.01 - PROTHROMBIN TIME/PT 5. 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 6. Hypothyroidism, acquired - ICD9: 244.9, ICD10: E03.9 - Instructed patient on importance of taking on an empty stomach either first thing in the morning or at bedtime. 7. Obesity, Class II, BMI 35-39.9 - ICD9: 278.00, ICD10: E66.9 - Lengthy discussion in office today regarding diet and exercise. Discussed use of small plate to eat meals from, drink 1 glass of water 10-15 minutes prior to eating meal, drink 8 glasses of water daily, eat fresh fruit and vegetable during meal first then lean protein such as grilled/baked chicken breast or fish, limit carbohydrate intake (less pasta, breads, rice and snack foods) as well as limiting sugars (desserts etc). Important to count / track your calories and exercise as well. 8. Partial epilepsy, with intractable epilepsy, pharmacoresistant (HCC) - ICD9: 345.51, ICD10: G40.119 F/u with Neurologist 9. Poor diet - ICD9: 269.9, ICD10: E63.9 See above 10. Weight gain - ICD9: 783.1, ICD10: R63.5 See above 11. Dyslipidemia - ICD9: 272.4, ICD10: E78.5 - Uncontrolled - Continue current medications - Counseled on healthy diet and regular exercise Hari Oneill DO Return if no improvement. Follow up with Hari Oneill DO. To ER if develops chest pain, shortness of breath. Discussed risks, benefits, alternatives, and potential side effects of medications. Patient/Guardian expressed understanding and agreed with the plan. See patient instructions. Hari Oneill DO [address] [place] [address] documented [facility] Telephone encounter Note * Telephone Encounter - Shannon Villatoro - 07/05/2023 8:36 AM EST Talked to patient and he understands his lab orders have been placed. Shannon Villatoro [facility]11-30-[facility]23 Miscellaneous Notes* Telephone Encounter - Shannon Villatoro - 07/05/2023 8:36 AM EST Talked to patient and he understands his lab orders have been placed. Shannon Villatoro * Telephone Encounter - Hari Oneill DO - 07/04/2023 9:00 PM EST Orders placed for thyroid labs and CBC and CMP, please inform aHri Oneill DO * Telephone Encounter - Selena Berg LPN - 07/04/2023 4:31 PM EST Pt. wants Thyroid labs and any others that are needed. documented in this encounterR[facility]11-29-2023 Telephone encounter Note * Telephone Encounter - Hari Oneill DO - 07/04/2023 9:00 PM EST Orders placed for thyroid labs and CBC and CMP, please inform Hari Oneill DO [facility] Telephone encounter Note* Telephone Encounter - Selena Berg LPN - 07/04/2023 4:31 PM EST Pt. wants Thyroid labs and any others that are needed. [facility]10-[facility] Miscellaneous Notes* Telephone Encounter - Mi Guaman PA-C - 05/24/2023 3:12 PM EDT The following approved medication requests have been transmitted electronically. Requested Prescriptions Signed Prescriptions Disp Refills zonisamide (ZONEGRAN) 100 mg capsule 540 capsule 1 Sig: Take 4 capsules by mouth daily with lunch AND 2 capsules every evening. Authorizing Provider: MI GUAMAN PA-C * Telephone Encounter - Emily Allan - 05/24/2023 9:50 AM EDT Prescription Refill: Requested by: pharmacy Please E-Scribe Caller Contact Number: [facility] Number: [phone] Generic/ brand: 30 or 90 day supply requested: 90 Last appointment: 03/14/23 Next Appointment: 05/29/[address] Xie documented in this encounterR[facility]09-26-[facility]23 History of Present illness Narrative* Hari Oneill, - 05/01/2023 1:21 PM EDT CC: Eder Breen is a 67 year old male who presents to the office for follow up HPI: He was recently seen at the hospital on 04/18 due to 2 severe seizures that he experienced in the middle of the night. He was taken to the hospital and managed by Neurologist. He was continued on his lamictal and vimpat and added on the Keppra medication. He is supposed to have follow up in Oct withNeurologist. He hasn't had any further seizure activity since he was in the hospital. He has had fatigued feels that he has missed several doses of his thyroid hormone medication which she assumes is also affecting his fatigue symptoms. Hx of DVT, hypercoagulable, chronic anticoagulation. He is not able to afford the $45 a month to change from warfarin to the Eliquis or Xarelto medication at this time. Mood, which he was hospitalized, his wellbutrin medication was discontinued, he is still taking prozac, overall mood has been stable. No concerns per . 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 pylori infection 11/2013 Hemorrhoids History of DVT/PE 01/12/2013 - history of saddle PE in 2010 - IVC filter placed in 2011 possible in the setting of increased risk of falls while on coumadin - coumadin use complaicated by GI bleeding in the setting of supratherapeutic INR, warfarin stopped in 11/2012 - Repeat DVT involving common iliac/femoral and IVD distal tothe filter in 01/2013 while off coumadin, restarted on coumadin - Currently sub therapeutic on coumadin PLAN: -Increase coumadin to 7.5 mg daily - continue coumadin for life in the setting of PE Continue to bridge with lovenox as INR subtherapeutic. 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 sclerosis 07/2013 by echo WILBERTO (obstructive sleep apnea) Pulmonary embolism (HCC) hx of S/P insertion of IVC (inferior vena caval) filter thrombosed (S/P Lysis) Seizures (HCC) Snoring SUMMARY 01/12/2013 Mr Breen is a 58 y M with a medical history significant for: - Grade 3 Follicilar lymphoma, 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 Recent DVT in the common iliac, femoral and IVC distal to the IVD filter in 01/2013 while off coumadin. Currently on coumadin and no bleeding episodes/ falls Who is transferred from [facility] for the further evaluation of his dizziness which started about 3 -4 days ago and is now re Traumatic brain injury (HCC) There is a questionabale history of around age of 3 year he was dropped on the driveway may have lost consciousness Traumatic brain injury (HCC) There is a questionabale history of around age of 3 year he was dropped on the driveway may have lost consciousness Unspecified epilepsy without mention of intractable epilepsy Vitamin B12 deficiency 11/2013 Vitamin D deficiency normal level 11/2011 PAST SURGICAL HISTORY Procedure Laterality Date APPENDECTOMY HX COLONOSCOPY FLX DX W/COLLJ SPEC WHEN PFRMD 12/27/2009 Colonoscopy COLONOSCOPY FLX DX W/COLLJ SPEC WHEN PFRMD 05/03/2021 ESOPHAGOGASTRODUODENOSCOPY TRANSORAL DIAGNOSTIC 02/12/2012 EGD ESOPHAGOGASTRODUODENOSCOPY TRANSORAL DIAGNOSTIC 03/27/[address] [facility] inpt ESOPHAGOGASTRODUODENOSCOPY TRANSORAL DIAGNOSTIC 06/04/2012 EGD ESOPHAGOGASTRODUODENOSCOPY TRANSORAL DIAGNOSTIC N/A 11/13/2016 ESOPHAGOGASTRODUODENOSCOPY TRANSORAL DIAGNOSTIC 02/15/2018 EGD ESOPHAGOGASTRODUODENOSCOPY TRANSORAL DIAGNOSTIC 05/03/2021 INSJ TUNNELED CTR VAD W/SUBQ PORT AGE 3 YR/> 04/11/2012 INTRO. 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 right eye blind, injured during seizure Current Outpatient Medications Medication Sig levETIRAcetam (KEPPRA) 750 mg tablet Take 2 tablets by mouth twice daily. warfarin (COUMADIN) 7.5 mg tablet Take 1 tablet by mouth once daily. diclofenac (VOLTAREN ARTHRITIS PAIN) 1 % topical gel Apply 2 g to affected area four times daily. FLUoxetine (PROZAC) 20 mg capsule Take 1 capsule by mouth once daily. in the morning for mood zonisamide (ZONEGRAN) 100 mg capsule Take 4 capsules by mouth daily with lunch AND 2 capsules everyevening. lamoTRIgine (LAMICTAL) 200 mg tablet Take 1 tablet by mouth daily with lunch AND 1 tablet every evening. levothyroxine (LEVOXYL) 75 mcg tablet Take 1 tablet by mouth daily before breakfast. Take on empty stomach 30 minutes before eating. For Thyroid furosemide (LASIX) 40 mg tablet Take 1 tablet by mouth once daily. cyanocobalamin, vitamin B-12, (VITAMIN B-12 ORAL) Take 1 tablet by mouth once daily. meloxicam (MOBIC) 15 mg tablet Take 1 tablet by mouth once daily. With food. warfarin (COUMADIN) 5 mg tablet Take 7.5mg Mon, Wed, Fri, Sat, Sun of this next week. He should take 10mg . Recheck INR level in 1 week. By mouth. lacosamide (VIMPAT) 200 mg Take 1 tablet by mouth daily with lunch AND 1 tablet every evening. Do all this for 180 days. levETIRAcetam (KEPPRA) 750 mg tablet 2 tablets by ORAL/FEEDING TUBE route twice daily. No current facility-administered medications for this visit. ALLERGIES Allergen Reactions Doxycycline GI Upset Lactose Intolerance* Diarrhea Social History Tobacco Use Smoking status: Never Smokeless tobacco: Never Vaping Use Vaping Use: Never used Substance Use Topics Alcohol use: No Drug use: No ROS: See HPI PE: BP 128/70 Pulse 76 Temp (Src) 97 (Right Tympanic) Resp 20 Wt 256 lb (116.1kg) Gen: A&OX3, NAD, non-toxic appearing HEENT: PERRLA, EOMs intact b/l, nares without drainage, pharynx without erythema, exudate, lesions,or drainage. Uvula midline. Neck: No LAD, no thyromegaly, no meningismus. CV: RRR, no murmur Lungs: CTA b/l, no wheezing Skin: No rashes, lesions, or wounds on exposed skin. Central obesity No peripheral edema Normal peripheral pulses ASSESSMENT/PLAN: 1. Hypothyroidism, acquired - ICD9: 244.9, ICD10: E03.9 (primary diagnosis) - Instructed patient on importance of taking on an empty stomach either first thing in the morning or at bedtime. Continue levothyroxine - TSH BLD - T4 FREE/FREE THYROX - T3 FREE BLD 2. Bilateral leg pain - ICD9: 729.5, ICD10: M79.604, M79.605 - rx refilled. - MELOXICAM 15 MG TABLET 3. long term care pharmacist current use of anticoagulant therapy - ICD9: V58.61, ICD10: Z79.01 rx refilled. - WARFARIN 5 MG TABLET 4. Other pulmonary embolism without acute cor pulmonale, unspecified chronicity (HCC) - ICD9: 415.19, ICD10: I26.99 rx refilled. - WARFARIN 5 MG TABLET 5. Chronic anticoagulation - ICD9: V58.61, ICD10: Z79.01 Continue warfarin, he isn't able to afford the xarelto or eliquis at this time 6. Partial epilepsy, with intractable epilepsy, pharmacoresistant (HCC) - ICD9: 345.51, ICD10: G40.119 Continue warfarin, he isn't able to afford the xarelto or eliquis at this time 7. Obesity, Class II, BMI 35-39.9 - ICD9: 278.00, ICD10: E66.9 - Lengthy discussion in office today regarding diet and exercise. Discussed use of small plate to eat meals from, drink 1 glass of water 10-15 minutes prior to eating meal, drink 8 glasses of water daily, eat fresh fruit and vegetable during meal first then lean protein such as grilled/baked chicken breast or fish, limit carbohydrate intake (less pasta, breads, rice and snack foods) as well as limiting sugars (desserts etc). Important to count / track your calories and exercise as well. Hari Oneill DO Return if no improvement. Follow up with Hari Oneill DO. To ER if develops chest pain, shortness of breath Discussed risks, benefits, alternatives, and potential side effects of medications. Patient/Guardian expressed understanding and agreed with the plan. See patient instructions. Hari Oneill DO [address] [place] [address] documented in this encounterR[facility]09-[facility]-2023 Miscellaneous Notes* Telephone Encounter - Della Doty PA-C - 04/24/2023 3:50 PM EDT The following approved medication requests have been transmitted electronically. Requested Prescriptions Signed Prescriptions Disp Refills lacosamide (VIMPAT) 200 mg 180 tablet 1 Sig: Take 1 tablet by mouth daily with lunch AND 1 tablet every evening. Do all this for 180 days. Authorizing Provider: DELLA DOTY PA-C * Telephone Encounter - Kareen Miller - 04/23/2023 1:45 PM EDT Prescription Refill: Requested by: pharmacy Please E-Scribe Caller Contact Number: Pharmacy Name: [facility] Number: [phone] Generic/ brand: Generic 30 or 90 day supply requested: 90 Last appointment: 03/14/23 Next Appointment: 05/29/[address] Xie documented in [facility] encounterR[facility]09-14-2023 Miscellaneous Notes* Telephone Encounter - Suyapa Lira APRN.CNP - 04/19/2023 8:46 AM EDT Thank you for the update. Suyapa Lira APRN.CNP * Telephone Encounter - Sobeida Nair LPN - 04/19/2023 8:04 AM EDT Patient Dylon le had 2 seizures yesterday and was admitted to [facility] last evening. documented in this encounterRiverside [facility]09-13-2023 Miscellaneous Notes* Telephone Encounter - Erica Silva RN - 04/18/2023 10:55 AM EDT Patient in ED Erica Silva RN * Telephone Encounter - Kareen Miller - 04/18/2023 8:33 AM EDT Patients spouse Dylon Breen [phone] called and said that patient is still having an active seizure and she is taking [facility]. * Telephone Encounter - Abiola Badillo - 04/18/2023 8:10 AM EDT Seizure activity: Name of Caller : dylon Breen Relationship to patient: Spouse/ SignificantOther Contact phone number: [phone] (home) Date of seizure: 04/18/23 Duration: 5 mins Back to Baseline (Yes/No): yes Emergency treatment needed (Yes/No): no Patient of Dr. xie documented in this encounterR[facility]09-01-2023 Miscellaneous Notes* Telephone Encounter - Verona Stanford - 04/06/2023 2:52 PM EDT Patient has been identified by name and date of : Yes Last office visit in this department: 04/02/2023 RX INSTRUCTIONS: Patient aware RX will be sent to pharmacy. No need to notify patient. Patient phones requesting refills as follows: Requested Prescriptions Pending Prescriptions Disp Refills warfarin (COUMADIN) 5 mg tablet 60 tablet 1 Sig: As of 04/04/2023: Take 7.5mg , Sunday, Sunday of this next week. He should take 10mg Sunday, Sunday, and Sunday. Recheck INR level in 1 week. By mouth. Please review and advise. Verona Mancilla documented in this encounterRiverside [facility]08-30-2023 Miscellaneous Notes* Telephone Encounter - Selena Berg LPN - 04/04/2023 8:10 PM EDT Pt. informed detailed message left to return call and verify message. * Telephone Encounter - Suyapa Lira APRN.CNP - 04/04/2023 7:11 PM EDT Please let Eder know I received his lab results. His INR level is too low. He stated at his appointment that he is taking 7.5mg of Coumadin daily. I would like him to increase his Coumadin to taking 7.5mg , Sunday, Sunday of this next week. He should take 10mg Sunday, Sunday, and Sunday. Recheck INR level in 1 week. Suyapa Lira APRN.CNP The following approved medication requests have been transmitted electronically. Requested Prescriptions Signed Prescriptions Disp Refills warfarin (COUMADIN) 5 mg tablet 60 tablet 1 Sig: As of 04/04/2023: Take 7.5mg , Sunday, Sunday of this next week. He should take 10mg Sunday, Sunday, and Sunday. Recheck INR level in 1 week. By mouth. Authorizing Provider: SUYAPA LIRA APRN.CNP documented in this encounterRiverside [facility]08-28-2023 Instructions* Patient Instructions* Suyapa Lira APRN.CNP - 04/02/2023 1:45 PM EDT Have your labs drawn on your way out. Diclofenac (Voltaren) gel-rub this into your joints 4 times daily to help with your pain. Start the meloxicam (Mobic) on a daily basis regardless of pain. Do not take ibuprofen (or similar medications called NSAIDS). Ok to take acetaminophen (Tylenol) if needed. Work on cutting back on your portion sizes. Start going to [employer] with Dylon when your joints start feeling better. Consider going to [facility]-can do swimming exercises that aren't as hard on your joints. Continue to cut back on your water intake at nighttime. documented in this encounterRiverside [facility] Hospital08-28-2023 History of Present illness Narrative* Suyapa Lira APRN.SAMIR - 04/02/2023 1:43 PM EDT Chief Complaint Patient presents with: Follow Up: 4 month HPI Eder Breen is a 67 year old male who presents here today for Above Complaints.. Today: Has had 10 seizures from June 2022 through February 2023. Neurology is having him take his medication at 12 noon [address] Saw Dr[address] Xie on 03/14/2023, follows up 10/17/2022. is keeping track of anyseizure activity. Currently taking 7.5mg of Coumadin daily. Needs INR drawn. Is riding stationary bike for 10 minutes twice daily. Bilateral leg pain-needs medication for relief so that he can do normal things he needs to do. Legsare stiff from knees down. Walking 25 yards cause throbbing and can't go further. Sits in a chair alot because things are so hard to do because of the pain. Taking very slow and very small steps. Has not used ibuprofen, acetaminophen, heat, or ice. Needs some guidance. Shoulder pain-throbbing pain from shoulders and down arms. Using his arms much and lifting arms higher aggravates things. Drinks a lot of water. Specifically at bedtime because he feels empty if he doesn't. Then wakes up so many times during the night that he doesn't get more than 3 hours of combined sleep. Recently has started drinking about half of the amount of water because then he doesn't get so full and doesn't have to urinate as much during the night. Has a very poor appetite. Doesn't know what to eat, to be healthy but has been to a squaring machine operator. is familiar with what to eat-patient is not willing to change to diet like his . Past medical history, appointments, medications, allergies reviewed. 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 pylori infection 11/2013 Hemorrhoids History of DVT/PE 01/12/2013 - history of saddle PE in 2010 - IVC filter placed in 2011 possible in the setting of increased risk of falls while on coumadin - coumadin use complaicated by GI bleeding in the setting of supratherapeutic INR, warfarin stopped in 11/2012 - Repeat DVT involving common iliac/femoral and IVD distal tothe filter in 01/2013 while off coumadin, restarted on coumadin - Currently sub therapeutic on coumadin PLAN: -Increase coumadin to 7.5 mg daily - continue coumadin for life in the setting of PE Continue to bridge with lovenox as INR subtherapeutic. 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 sclerosis 07/2013 by echo WILBERTO (obstructive sleep apnea) Pulmonary embolism (HCC) hx of S/P insertion of IVC (inferior vena caval) filter thrombosed (S/P Lysis) Seizures (HCC) Snoring SUMMARY 01/12/2013 Mr Breen is a 58 y M with a medical history significant for: - Grade 3 Follicilar lymphoma, 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 s/p clinical remission and now on Rituximab every 2 months , O/P oncologist Dr Ruiz - Epilepsy since , grand mal seizures s/p SEEG placement on 01/23 - 01/27 with localzation ofseizure focus to the left temporal lobe, no grand mal seizures this year, follows up with Dr Xie for epilepsy, on Lacosamide, lamotrigine, keppra and clonazepam with confusion regarding his current medications - History of DVT PE, saddle PE 2010 started on coumadin c/b GI bleed in the setting of supratherapeutic INR, IVC filter placement 04/2012 in the setting of GI bleed and fall risk but continued on coumadin till 11/2012 . Recent DVT in the common iliac, femoral and IVC distal to the IVD filter in 01/2013 while off coumadin. Currently on coumadin and no bleeding episodes/ falls Who is transferred from [facility] for the further evaluation of his dizziness which started about 3 -4 days ago and is now re Traumatic brain injury (HCC) There is a questionabale history of around age of 3 year he was dropped on the driveway may have lost consciousness Traumatic brain injury (HCC) There is a questionabale history of around age of 3 year he was dropped on the driveway may have lost consciousness Unspecified epilepsy without mention of intractable epilepsy Vitamin B12 deficiency 11/2013 Vitamin D deficiency normal level 11/2011 Previous Surgical History PAST SURGICAL HISTORY Procedure Laterality Date APPENDECTOMY HX COLONOSCOPY FLX DX W/COLLJ SPEC WHEN PFRMD 12/27/2009 Colonoscopy COLONOSCOPY FLX DX W/COLLJ SPEC WHEN PFRMD 05/03/2021 ESOPHAGOGASTRODUODENOSCOPY TRANSORAL DIAGNOSTIC 02/12/2012 EGD ESOPHAGOGASTRODUODENOSCOPY TRANSORAL DIAGNOSTIC 03/27/[address] [facility] inpt ESOPHAGOGASTRODUODENOSCOPY TRANSORAL DIAGNOSTIC 06/04/2012 EGD ESOPHAGOGASTRODUODENOSCOPY TRANSORAL DIAGNOSTIC N/A 11/13/2016 ESOPHAGOGASTRODUODENOSCOPY TRANSORAL DIAGNOSTIC 02/15/2018 EGD ESOPHAGOGASTRODUODENOSCOPY TRANSORAL DIAGNOSTIC 05/03/2021 INSJ TUNNELED CTR VAD W/SUBQ PORT AGE 3 YR/> 04/11/2012 INTRO. OF CATH SUP/INF VENA CAVA 04/09/2012 IVC FILTER PAST SURGICAL HISTORY OF ? right eye blind, injured during seizure Family History FAMILY HISTORY Problem Relation Age of Onset Stroke Mother Cancer Mother patient states he came from an infection due to a back injury Patient Allergies ALLERGIES Allergen Reactions Doxycycline GI Upset Lactose Intolerance* Diarrhea Current Medications Current Outpatient Medications on File Prior to Visit Medication Sig zonisamide (ZONEGRAN) 100 mg capsule Take 4 capsules by mouth daily with lunch AND 2 capsules everyevening. lamoTRIgine (LAMICTAL) 200 mg tablet Take 1 tablet by mouth daily with lunch AND 1 tablet every evening. levothyroxine (LEVOXYL) 75 mcg tablet Take 1 tablet by mouth daily before breakfast. Take on empty stomach 30 minutes before eating. For Thyroid cyanocobalamin, vitamin B-12, (VITAMIN B-12 ORAL) Take 1 tablet by mouth once daily. warfarin (COUMADIN) 5 mg tablet As of 06/22/2022: Take 2.5 tablets (12.5mg) by mouth , Sunday, Sunday, Sunday. Recheck INR on Tuesday 06/26. FLUoxetine (PROZAC) 20 mg capsule Take 1 capsule by mouth once daily. in the morning for mood lacosamide (VIMPAT) 200 mg Take 1 tablet by mouth daily with lunch AND 1 tablet every evening. Do all this for 180 days. buPROPion (WELLBUTRIN) 75 mg tablet Take 1 tablet by mouth twice daily. pantoprazole DR (PROTONIX) 40 mg tablet Take 1 tablet by mouth daily before breakfast. For stomach symptoms, Take on empty stomach, 1/2 hr before meal. (Patient not taking: Reported on 04/02/2023) furosemide (LASIX) 40 mg tablet Take 1 tablet by mouth once daily. blood sugar diagnostic (BLOOD GLUCOSE TEST) test strip Test blood sugar(s) 2 times daily. Dx: OtherDM Code E16.2 Insulin: No (Patient not taking: Reported on 04/02/2023) Lancets lancets Test blood sugar(s) 1 times daily. Dx: Other DM Code E16.2 Insulin: No (Patient nottaking: Reported on 04/02/2023) loperamide HCl (IMODIUM A-D) 2 mg tab Take 1 tablet by mouth as needed. (Patient not taking: Reported on 04/02/2023) No current facility-administered medications on file prior to visit. Social History Social History Tobacco Use Smoking status: Never Smokeless tobacco: Never Vaping Use Vaping Use: Never used Substance Use Topics Alcohol use: No Drug use: No Review of Symptoms REVIEW OF SYSTEMS See HPI, otherwise negative EXAM: BP 144/82 Pulse 75 Resp 20 Wt 118.4 kg (261 lb) SpO2 97% BMI 35.40 kg/m General Appearance: Well appearing, alert, in no acute distress, well-hydrated, well nourished, mildly disheveled. Lungs: Lungs clear to auscultation. No wheezing, rhonchi, rales.. Heart: RRR without murmur, gallop, or rubs. No ectopy. Psychiatric: cooperative, . Health Maintenance List SHINGRIX VACCINE(1 of 2) Never done COVID-19 VACCINE(3 - Moderna risk series) due on 02/02/2021 INFLUENZA(1) due on 04/06/2023 BP CONTROLLED (<130/80) due on 07/10/2023 ANNUAL PCP TEAM CHRONIC DISEASE VISIT due on 04/02/2024 DIABETES SCREEN due on 11/27/2025 COLORECTAL CANCER SCREENING due on 05/03/2026 LIPID SCREEN due on 11/28/2027 DTAP,TDAP,TD(3 - Td or Tdap) due on 12/09/2031 HEPATITIS C SCREENING Completed PNEUMOCOCCAL: 65+ Completed HPV VACCINE Aged Out ADVANCE DIRECTIVE DISCUSSION Discontinued Data reviewed Previous records, office notes ASSESSMENT/PLAN: 1. Partial epilepsy, with intractable epilepsy, pharmacoresistant (HCC) - ICD9: 345.51, ICD10: G40.119 (primary diagnosis) Following with neurology. 2. Seizure (HCC) - ICD9: 780.39, ICD10: R56.9 Following with neurology. 3. Chronic anticoagulation - ICD9: V58.61, ICD10: Z79.01 Overdue for INR recheck. States currently taking 7.5mg daily. - WARFARIN 5 MG TABLET - PROTHROMBIN TIME/PT 4. halfway current use of anticoagulant therapy - ICD9: V58.61, ICD10: Z79.01 Overdue for INR recheck. States currently taking 7.5mg daily. - WARFARIN 5 MG TABLET - PROTHROMBIN TIME/PT 5. Other pulmonary embolism without acute cor pulmonale, unspecified chronicity (HCC) - ICD9: 415.19, ICD10: I26.99 Overdue for INR recheck. States currently taking 7.5mg daily. - WARFARIN 5 MG TABLET - PROTHROMBIN TIME/PT 6. Bilateral leg pain - ICD9: 729.5, ICD10: M79.604, M79.605 - DICLOFENAC 1 % TOPICAL GEL - MELOXICAM 15 MG TABLET 7. Frequent urination at night - ICD9: 788.43, ICD10: R35.1 Cut back water intake at nighttime only, starting 3 hours prior to bedtime. 8. Poor diet - ICD9: 269.9, ICD10: E63.9 Consider seeing squaring machine operator again. Recommend eating foods that eats. Cut back on portion sizes. Consider exercising, going to [employer] with or getting into some swimming exercises at [facility]. 9. Weight gain - ICD9: 783.1, ICD10: R63.5 Consider seeing squaring machine operator again. Recommend eating foods that eats. Cut back on portion sizes. Consider exercising, going to [employer] with or getting into some swimming exercises at [facility]. 10. Obesity, Class II, BMI 35-39.9 - ICD9: 278.00, ICD10: E66.9 Consider seeing squaring machine operator again. Recommend eating foods that eats. Cut back on portion sizes. Consider exercising, going to [employer] with or getting into some swimming exercises at [facility]. Suyapa Lira APRN.PRODUCTION EXPERT documented [facility] encounterR[facility] Instructions* Patient Instructions* Xavi Xie MD - 03/14/2023 3:40 PM EDT Saroj Almendarez Vimpat (Noon-10PM) (Noon-10PM) (Noon-10PM) Week 1 400-200 200-200 200-200 Week 2 Continue Continue Continue documented in this encounterR[facility]08-[facility]23 History of Present illness Narrative* Xavi Xie MD - 03/14/2023 3:29 PM EDT [facility] Patient Name: Eder Breen Date of : 1955 ESTABLISHED EPILEPSY CLINIC NOTE 03/14/2023 3:30 PM Reason for Visit: Follow Up Clinical Summary: Mr. Breen is a 67 year old right-handed [facility]. At today's visit, the patient is accompanied by: his , Dylon EPILEPSY CLASSIFICATION Focal Epilepsy Seizures: 1. Automotor Seizure -> Complex Motor Seizure 2. Subclinical EEG Seizure (no clinical signs) -> Tonic Seizure -> Automotor Seizure Etiology: Unknown Associated Conditions: - Psychiatric (Anxiety disorder and Depression) Previous Neurosurgery: Stereo EEG Stereo EEG date: Dec 22 2013 to November 27 2013 HISTORY OF PRESENT ILLNESS Handedness: right-handed Age of onset: 3 years Interval History He continues to have seizures on a monthly basis: He had two seizures in June and two seizures in July,; one in August, two in September, no seizures in October, November he had one seizure, December had no seizures, January no seizures, February no seizures. March one seizure four days ago. His seizures are all of sleep. The seizures are usually when he falls asleep watching TV in the afternoon (around 1 or 2 pm). At the last visit we increase Zonegran to 300mg in AM and 300mg in PM (increased at last visit). Hecontinues on lamotrigine 200mg twice daily and lacosamide 200mg twice daily. He has no side effects. He is reliable with the medications. Total # of Current Anti-seizure Medications: Side Effects to Current Anti-seizure Medications: Seizure Frequency at First Visit: 2 per month Longest Seizure-free Interval: 1 months Number of seizure types: 2 Hx of generalized tonic-clonic seizures: Yes Tongue bite: No Urine or Bowel Incontinence: Yes Triggers: intercurrent illness Memory complaints: Some short term memory problems Status Epilepticus or clusters: No Postictal Agitation: No (Comment: Disoriented after the seizure) Significant Injuries from Seizures: Enucleation of right eye when he fell into a corner of his night stand during a seizure Seizure-related driving accidents: N/A Driving: No Lives Alone: Yes Highest Level of Education: High school graduate (includes GED) CURRENT OUTPATIENT ANTISEIZURE MEDICATIONS (as of the start of the encounter) lamoTRIgine (LAMICTAL) 200 mg tablet (Taking) Take 1 tablet by mouth twice daily. lacosamide (VIMPAT) 200 mg (Taking) Take 1 tablet by mouth twice daily for 180 days. zonisamide (ZONEGRAN) 100 mg capsule (Taking) Take 3 capsules by mouth every morning AND 3 capsulesevery evening. lamoTRIgine (LAMICTAL) 25 mg tablet TAKE 2 TABLETS TWICE DAILY. TAKE IN ADDITION TO 200MG TABLETS FOR TOTAL DOSE OF 250MG TWICE DAILY. Prior Anti-seizure Therapies: Trial Adequacy: Max Daily Dose Achieved: Side Effects: Effectiveness: Comments: Brivaracetam Carbamazepine Lacosamide Lamotrigine Levetiracetam Phenobarbital Phenytoin Valproate Zonisamide Comorbidities: Episode Description: SEIZURE TYPE 1: Focal to bilateral tonic-clonic seizure Onset: 5 years Aura: no Description: These occur out of sleep. No warning. He will cry out or yell. Breathes heavy. Arms and legs extend out. He becomes rigid and will have tonic clonic movements. He bites his tongue. No urinary incontinence. Duration of 5 minutes. He calms down after 10-15 minutes and goes back to sleep. Loss of awareness: Duration: Frequency: Last occurred: yes 5 to 10 minutes 1 per month March 12 2023 SEIZURE TYPE 2: Focal impaired awareness seizures (Complex motor seizure) Onset: 5 years Aura: no Description: This seizure type occurs out of sleep as well in which he will make a noise (like a shhing noise or grunting sounds) during this he is patting his right hand on his thigh. If the seizure occurs while he is in a recliner he will lift the lever on the side, up and down repetitively. After the seizure he may walk around and get ready work inappropriately. This seizure last for five orsix minutes. The confusion last for 15-20 minutes. During this time he is disoriented but able to respond. In one of the seizures he was confused afterwards and left the house in his underwear and was brought back his the police. Loss of awareness: Duration: Frequency: Last occurred: yes between 5 and 10 minutes Patient Entered Data: EPILEPSY SCORE No Data PHQ-9 SCORE - ABNER 2 SCORE - ABNER 7 SCORE - QOLIE-10 SCORE (0=worst; 100=best QoL - higher scores represent better function) - LSSS SCORE (0- no seizures 100- most severe possible seizures) - C-SSRS SCREEN - On average, how many hours of sleep do you get in a 24-hour period? - PROMIS Sleep Disturbance T-SCORE - Have you been diagnosed with Sleep Apnea? - VITAL SIGNS: BP 122/63 (BP Site: Right Arm, BP Position: Sitting, BP Cuff Size: Regular Adult) Pulse 78 Ht 182.9 cm (6') Wt 113.9 kg (251 lb) SpO2 98% BMI 34.04 kg/m General Examination: General Exam Neurological Exam IMPRESSION: The patient's evaluation to date supports a diagnosis of a multifocal epilepsy or focal epilepsy not clearly localized (some evidence that the onset patterns could be explained by a posterior parietal onset but could not be proven by SEEG). No resection was performed after his SEEG in 2013. His seizure semiology recorded during an SEEG evaluation in 2013 consisted of two types: 1) epileptic arousal, stereotypic movements of his upper extremities, right arm dystonia, brief oral automatism and left arm rhythmic circling (this seizure type was associated with ictal speech); 2) period of no clinical signs followed by stare and loud high pitch vocalization (yelping sounds) followed by oral automatism then grasping movements. The SEEG ictal onsets were nonlocalizable and felt to have multiregional involvement. The interictal findings from his SEEG showed multiregional spikes in the right hemisphere (hippocampus, amygdala,temporal pole, middle temporal gyrus, gyrus rectus, precuneus and angular gyrus). His MRI scan of brain was read as nonlesional. Voxel based morphometric analysis showed possible VBM lesions in the right premotor cortex (near the precentral sulcus and rostral right superior frontal gyrus). 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 Interval Impression: He is averaging almost one focal impaired awareness seizure a month. These seizures are when he is asleep, usually around 2PM when he falls asleep watching TV. No seizures duringthe morning hours. He is on a combination of zonisamide, lacosamide and lamotrigine which he is tolerating well. The patient's compliance with therapy has been: Reasonable PLAN: He is unable to afford new medications at this time. We discussed changing the dosing schedule to lunch and 10:00PM. His Zonegran dose will change to 400mg at lunch and 200mg at PM (overall the same total dose). We will continue Lamictal 200mg twice daily and Vimpat 200mg twice daily. Data reviewed as above including: electronic medical record Education The following issues were discussed with the patient on this visit and written instructions provided as below- Seizure precautions and safety, seizure first aide, when to seek emergency care. Counseling was provided to the patient that missed medications, addition of some new medications, use of alcohol or other substances, and sleep deprivation can lower the seizure threshold. Patient was advised to not drive until released by a physician. I discussed the risk of depression and psychological comorbidities in patients with epilepsy and when to seek help as well as the black box warning of all antiepileptic medications which can increaserisk for suicidality. Medical Management Medication changes were discussed. Change dosing and schedule of antiseizure medications as listed below. Zonegran Lamictal Vimpat (Noon-10PM) (Noon-10PM) (Noon-10PM) Week 1 400-200 200-200 200-200 Week 2 Continue Continue Continue The possibility of serious and adverse reactions were discussed in detail as well as proper use of medication. I discussed that not taking this medication as directed could worsen seizures and can bedangerous. I discussed the risks, benefits and alternatives of the medical plan with the patient. Questions were answered. The patient agreed with the plan as discussed. FOLLOW-UP: Return in about 8 months (around 11/01/2023). I spent a total of 30 minutes on the date of the service which included: preparing to see the patient [id number] patient care obtaining and/or reviewing separately obtained history completing clinical documentation counseling and educating the patient/family/caregiver ordering medications, tests, or procedures Xavi Xie MD cc: Primary Care Physician: Hari Oneill DO [id number] [facility] [id number] Referring: Patient: Mr. Eder Breen [id number] [facility] [id number] documented in this encounterR[facility]07-[facility]-2023 Miscellaneous Notes* Telephone Encounter - Nikkohuong MartinMago barrera - 02/22/2023 11:56 AM EDT Patient has been identified by name and date of : Yes Requested Prescriptions Pending Prescriptions Disp Refills buPROPion (WELLBUTRIN) 75 mg tablet 180 tablet 3 Sig: Take 1 tablet by mouth twice daily. RX INSTRUCTIONS: Patient aware RX will be sent to pharmacy. No need to notify patient. Mago Carroll documented in this encounterR[facility]07-12-2023 Miscellaneous Notes* Telephone Encounter - Verona Saleh LPN - 02/14/2023 3:33 PM EDT Pt & spouse were notified of results & message from provider, they both voiced understanding. Verona Saleh LPN * Telephone Encounter - Aurora Sweet APRN.CNP - 02/14/2023 1:12 PM EDT Notify patient that there are no significant findings on ultrasound just chronic changes and he should follow-up with PCP if pain is persistent. documented in this encounterR[facility]07-11-2023 History of Present illness Narrative* Olga Cooepr RT(R) - 02/13/2023 12:00 PM EDT Radiology Service Progress Note PATIENT NAME: Eder Breen DATE OF SERVICE: February 13, 2023 TIME: 11:57 AM PATIENT IDENTITY VERIFICATION COMPLETED USING TWO (2) IDENTIFIERS: Name and Date of confirmedby patient verbally. FALL SCREENING: Has the patient had 2 falls in the last year or 1 fall with injury or currently using an Ambulatory Assistive Device (Walker, Cane, Wheelchair, Crutches, etc.)? No PATIENT GENDER DATA: Male PATIENT RELEVANT IMPLANT DATA REVIEWED: Yes RADIOLOGY DEPARTMENT: General X-ray: Exam(s) Completed: Lower Extremity X- Ray(s): Knee, AP / Lat / Tunne / Merchant Right and Wt. Bearing and Ankle, Right and Wt. Bearing PERIPHERAL IV DATA: Not applicable SIGNED BY: RT Pierre(R) February 13, 2023 11:57 AM documented in this encounterR[facility]07-11-2023 History of Present illness Narrative* Aurora Sweet APRN.PRODUCTION EXPERT - 02/13/2023 11:45 AM EDT Images from the original note were not included. Subjective She came in with complaints of right leg pain in the knee calf and ankle area. Patient says its more so in the calf at times. Patient does have significant history of blood clots. Patient is unsure of any damage that could have happened. Patient denies loss of feeling more than normal. The history is provided by the patient. No educational sign language interpreter was used. Review of Systems Constitutional: Negative. Skin: Negative. Objective Physical Exam Constitutional: Appearance: Normal appearance. Pulmonary: Effort: Pulmonary effort is normal. Musculoskeletal: Legs: Comments: Patient has mild amount of pain in the purple areas marked above. Patient has significantamount of pain in the green area marked above. Minimal swelling is noted. No out of the ordinary discoloration is noted. Neurological: Mental Status: He is alert. 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 pylori infection 11/2013 Hemorrhoids History of DVT/PE 01/12/2013 - history of saddle PE in 2010 - IVC filter placed in 2011 possible in the setting of increased risk of falls while on coumadin - coumadin use complaicated by GI bleeding in the setting of supratherapeutic INR, warfarin stopped in 11/2012 - Repeat DVT involving common iliac/femoral and IVD distal tothe filter in 01/2013 while off coumadin, restarted on coumadin - Currently sub therapeutic on coumadin PLAN: -Increase coumadin to 7.5 mg daily - continue coumadin for life in the setting of PE Continue to bridge with lovenox as INR subtherapeutic. 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 sclerosis 07/2013 by echo WILBERTO (obstructive sleep apnea) Pulmonary embolism (HCC) hx of S/P insertion of IVC (inferior vena caval) filter thrombosed (S/P Lysis) Seizures (HCC) Snoring SUMMARY 01/12/2013 Mr Breen is a 58 y M with a medical history significant for: - Grade 3 Follicilar lymphoma, 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 Recent DVT in the common iliac, femoral and IVC distal to the IVD filter in 01/2013 while off coumadin. Currently on coumadin and no bleeding episodes/ falls Who is transferred from [facility] for the further evaluation of his dizziness which started about 3 -4 days ago and is now re Traumatic brain injury (HCC) There is a questionabale history of around age of 3 year he was dropped on the driveway may have lost consciousness Traumatic brain injury (HCC) There is a questionabale history of around age of 3 year he was dropped on the driveway may have lost consciousness Unspecified epilepsy without mention of intractable epilepsy Vitamin B12 deficiency 11/2013 Vitamin D deficiency normal level 11/2011 PAST SURGICAL HISTORY Procedure Laterality Date APPENDECTOMY HX COLONOSCOPY FLX DX W/COLLJ SPEC WHEN PFRMD 12/27/2009 Colonoscopy COLONOSCOPY FLX DX W/COLLJ SPEC WHEN PFRMD 05/03/2021 ESOPHAGOGASTRODUODENOSCOPY TRANSORAL DIAGNOSTIC 02/12/2012 EGD ESOPHAGOGASTRODUODENOSCOPY TRANSORAL DIAGNOSTIC 03/27/2012 EGD WC inpt ESOPHAGOGASTRODUODENOSCOPY TRANSORAL DIAGNOSTIC 06/04/2012 EGD ESOPHAGOGASTRODUODENOSCOPY TRANSORAL DIAGNOSTIC N/A 11/13/2016 ESOPHAGOGASTRODUODENOSCOPY TRANSORAL DIAGNOSTIC 02/15/2018 EGD ESOPHAGOGASTRODUODENOSCOPY TRANSORAL DIAGNOSTIC 05/03/2021 INSJ TUNNELED CTR VAD W/SUBQ PORT AGE 3 YR/> 04/11/2012 INTRO. OF CATH SUP/INF VENA CAVA 04/09/2012 IVC FILTER PAST SURGICAL HISTORY OF ? right eye blind, injured during seizure ALLERGIES Doxycycline and Lactose Intolerance (Lactase) [Lactase] MEDICATIONS lamoTRIgine (LAMICTAL) 200 mg tablet Take 1 tablet by mouth twice daily. lamoTRIgine (LAMICTAL) 25 mg tablet TAKE 2 TABLETS TWICE DAILY. TAKE IN ADDITION TO 200MG TABLETS FOR TOTAL DOSE OF 250MG TWICE DAILY. levothyroxine (LEVOXYL) 75 mcg tablet Take 1 tablet by mouth daily before breakfast. Take on empty stomach 30 minutes before eating. For Thyroid pantoprazole DR (PROTONIX) 40 mg tablet Take 1 tablet by mouth daily before breakfast. For stomach symptoms, Take on empty stomach, 1/2 hr before meal. lacosamide (VIMPAT) 200 mg Take 1 tablet by mouth twice daily for 180 days. furosemide (LASIX) 40 mg tablet Take 1 tablet by mouth once daily. cyanocobalamin, vitamin B-12, (VITAMIN B-12 ORAL) Take 1 tablet by mouth once daily. FLUoxetine (PROZAC) 20 mg capsule Take 1 capsule by mouth once daily. in the morning for mood buPROPion (WELLBUTRIN) 75 mg tablet Take 1 tablet by mouth twice daily. Lancets lancets Test blood sugar(s) 1 times daily. Dx: Other DM Code E16.2 Insulin: No warfarin (COUMADIN) 5 mg tablet As of 06/22/2022: Take 2.5 tablets (12.5mg) by mouth , Sunday, Sunday, Sunday. Recheck INR on Tuesday 06/26. zonisamide (ZONEGRAN) 100 mg capsule Take 3 capsules by mouth every morning AND 3 capsules every evening. loperamide HCl (IMODIUM A-D) 2 mg tab Take 1 tablet by mouth as needed. blood sugar diagnostic (BLOOD GLUCOSE TEST) test strip Test blood sugar(s) 2 times daily. Dx: OtherDM Code E16.2 Insulin: No (Patient not taking: Reported on 02/13/2023) FAMILY HISTORY Problem Relation Age of Onset Stroke Mother Cancer Mother patient states he came from an infection due to a back injury Social History Tobacco Use Smoking status: Never Smokeless tobacco: Never Vaping Use Vaping Use: Never used Substance Use Topics Alcohol use: No Drug use: No ASSESSMENT/PLAN: 1. Pain - ICD9: 780.96, ICD10: R52 - XR KNEE GENERAL 4V AP BOTH/PA BOTH/LAT/MERC RIGHT - XR ANKLE GENERAL 3V AP/LAT/OBL RIGHT * * * * Physician Interpretation * * * * EXAM TITLE: XR ANKLE 3V AP/LAT/OBL RT EXAM DATE/TIME: 02/13/2023 12:14 PM COMPARISON: None. CLINICAL INDICATION/HISTORY: Pain. TECHNIQUE: AP, mortise and lateral views of the right ankle are presented. FINDINGS: No acute fractures or subluxations are noted. Mild degenerative changes noted. Achilles/calcaneal enthesopathy is demonstrated. The mortise joint spaces are well preserved. There is no ankle joint effusion. The mineralization of the bones is normal. There is no significant soft tissue swelling. IMPRESSION IMPRESSION: Findings as described above. 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: GEORGES Transcribe Date/Time: Feb 13 2023 12:55P Dictated by : LASHANDA CANAS MD * * * * Physician Interpretation * * * * EXAM TITLE: XR KNEE 4V AP/PA BOTH+LAT/GIOVANNI RT EXAM DATE/TIME: 02/13/2023 12:14 PM COMPARISON: None. CLINICAL INDICATION/HISTORY: Knee pain. TECHNIQUE: AP/PA, lateral and sunrise views of the right knee are presented. FINDINGS: No acute fractures or subluxations are noted. Medial compartmental joint space narrowing is demonstrated. There is tricompartmental osteophyte formation. Patellar enthesophyte noted. There is trace joint effusion. The mineralization of the bones is normal. There is no significant soft tissue swelling. IMPRESSION IMPRESSION: Findings are suggestive of degenerative changes in the right knee. 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: GEORGES Transcribe Date/Time: Feb 13 2023 1:01P Dictated by : LASHANDA CANAS MD - US LEG VEIN DVT [facility] -patient says that they went to the appointment but somehow did not get checked in. They will call in the morning to do the ultrasound then. Aurora Sweet APRN.PRODUCTION EXPERT documented in this encounterRivers[facility]06-28-2023 Miscellaneous Notes* Telephone Encounter - Abelino Rodriguez Research Coordinator - 01/31/2023 3:38 PM EDT Patient/Research Subject Name: Eder Breen : 1955 IRB [id number]. Creating a Healthy L.I.F.E: Lifestyle Interventions For Epilepsy Strike Plate Attacher: Heladio Duke MD, Fabric Cutter: Marta Prado Coordinator and Email: [email or web address] Patient declined participation in the study at this time. Pt declined due to time intensity of the study. Abelino Rodriguez Research Coordinator documented in this encounterRiverside [facility] Hospital06-05-2023 Instructions* Patient Instructions* Audra Chauhan RD - 01/08/2023 12:53 PM EDT Increase length of exercise, increase to 12 min twice daily Two days per week plan to have veggies in diet Work on increasing fiber to 20 grams daily Work on normalizing sleep/wake patterns. NO naps, work on getting ~8 hours sleep night Three days per week have meals at the table only, make melas last at least 20 min, chew each bite of food 20 x per bite. Limit fried potatoes (chips and hashbrowns) to not more than 1-2 x per week documented in this encounterRiverside [facility] Hospital06-05-2023 History of Present illness Narrative* Audra Chauhan RD - 01/08/2023 12:15 PM EDT Nutritional Therapy Re-Assessment Nutrition Diagnosis: Overweight/obesity, related to, excess energy intake and physical inactivity, as evidenced by BMI above normative standard for age and gender RECOMMENDED MALNUTRITION DIAGNOSIS: NO MALNUTRITION IDENTIFIED NUTRITION CARE PLAN: Nutrition Intervention 01/08/2023: modify type and amount of food or beverage Increase length of exercise, increase to 12 min twice daily Two days per week plan to have veggies in diet Work on increasing fiber to 20 grams daily Work on normalizing sleep/wake patterns. NO naps, work on getting ~8 hours sleep night Three days per week have meals at the table only, make melas last at least 20 min, chew each bite of food 20 x per bite. Limit fried potatoes (chips and hashbrowns) to not more than 1-2 x per week Nutrition Monitoring & Evaluation: half toe one pound weight loss per week Need for Follow up: 4-6 weeks PROGRESS: Interval History: following as relates to now class 1 obesity Body mass index is 34.72 kg/m . Othermedical issues GERD, HTN, dyslipemia, WILBERTO, impaired fasting glucose, epilepsy. Limited change from last visit, including frequent high fat foods, limited fruits, vegetables and whole grains in diet. Beverages appropriate, Exercise and activity less than recommended. Did lose 6 lbs since last visit.States not feeling well last few days. Nutrition Intervention 11/27/22 Work on increasing endurance, increase to 15 min bike one session and 10 the next, then aim for 15 min twice daily. All beverages calorie free and sugar free, no juice - eat the fruit then drink water Here are ways to start incorporating more vegetables into your diet. Try roasting vegetables-this mellows the flavors. Try cooking veggies in tomato sauce or broth. Try grilling vegetables, slightly nikko grilled veggies taste wonderful. Try a vegetable spiralizer to make veggies interesting in shape and mix in with other foods like pasta for example. Buy baby veggies-these naturally are more sweet and less bitter. Toss in flavor infused olive oil to bind the spices and herbs. Consider using a dip such as a [place] yogurt based (nonfat plain [place] yogurt with dressing mix or other seasonings). Magalis veggies then dip in cold water to stop the cooking process and yield sweeter and milder tasting veggies. Slow roast or cook those in the onion family such as leeks, shallots, garlic etc to yielda mild sweet flavor. Consider adding finely chopped veggies to foods to sneak them in or puree to add to broths and sauces. A good source for recipes can be found in Eating Well or Cooking Light and a variety of other sources Work on increasing fiber in diet, goal at least 20 grams fiber per day If able no evening snack, but if snack needed, have a fresh fruit Work on normalizing sleep/wake patterns. NO naps, work on getting ~8 hours sleep night All meals and snacks at the dinner table; minimize distractions, no TV while eating. Make meals last at least 20 min, chew each bite of food 20 x per bite.Portion out all foods, never eat out of container. Become more mindful of meal: Enjoy flavors, textures etc. Use hunger/fullness scale Include 3 fresh fruit daily and half plate veggies at lunch and dinner. 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 Resting Metabolic Rate: 1968 Malnutrition Screening Significant unintentional weight loss? No Eating less than 75% of usual intake for more than 2 weeks? No Potential Signs of Inflammation: no identifiable sources Nutritional status: Education Materials Provided: None this visit READINESS TO LEARN Cognitive ability: Alert and oriented Motivation to learn: Interested Family support: High - Very involved in pt care Instruction provided to: Patient and Significant Other Patient learns best by: Individual Instruction Factors affecting learning: None Physical limitations affecting learning: None Likelihood of Adherence: Moderate Referred/Supervised by: Teri VALERO Billing Type: Re-assess/15 min 3 units SIGNATURE: Audra Chauhan RD PATIENT NAME: Eder Breen DATE: January 08, 2023 TIME: 12:17 PM documented in this encounterRiverside [facility]05-11-2023 Miscellaneous Notes* Telephone Encounter - Dinah Urban RN - 12/14/2022 3:06 PM EDT Pts called and is notified of providers results and instructions. She voices understanding. Dinah Urban RN * Telephone Encounter - Thad Panda MD - 12/14/2022 2:49 PM EDT Go to 7.5 mg daily of coumadin Recheck in 5 days Thad Panda MD * Telephone Encounter - Lisa Wolf Ma - 12/14/2022 10:51 AM EDT Pt states he is taking 5 mg daily. He has not missed a dose, and there are no changes to food or medications. Lisa Wolf Ma * Telephone Encounter - Hari Oneill DO - 12/14/2022 9:35 AM EDT Please inform patient that his INR in 1.1. is he taking his coumadin? Needs to be taking this regularly without missed doses Hari Oneill DO documented in this encounterRivers[facility]05-09-2023 Miscellaneous Notes* Telephone Encounter - Janet Dennis - 12/12/2022 2:28 PM EDT Pt does not know the name of med. Closing encounter documented in this encounterRiverside [facility] Hospital05-05-2023 Miscellaneous Notes* Telephone Encounter - Selena Berg LPN - 12/08/2022 2:49 PM EDT Pt. informed. * Telephone Encounter - Hari Oneill DO - 12/08/2022 2:28 PM EDT Please inform that his PSA is normal Hari Oneill DO * Telephone Encounter - Gay Woods - 11/30/2022 8:47 AM EDT Pt informed, verbalized understanding. Pt reports he is having trouble sleeping and urinary frequency. Asking about PSA level. Pt informed of coumadin instructions. Please see TE 11/28. Gay Woods * Telephone Encounter - Hari Oneill DO - 11/29/2022 9:14 PM EDT Please inform patient that his labs are stable except for his cholesterol is still too high. Needs to continue to work on eating a low fat diet and need for weight loss. Hari Oneill DO documented in this encounterRiverside [facility]05-03-2023 Miscellaneous Notes* Telephone Encounter - Selena Atkinson PA-C - 12/06/2022 12:13 PM EDT The following approved medication requests have been transmitted electronically. Requested Prescriptions Signed Prescriptions Disp Refills lamoTRIgine (LAMICTAL) 200 mg tablet 180 tablet 1 Sig: Take 1 tablet by mouth twice daily. Authorizing Provider: SELENA ATKINSON lamoTRIgine (LAMICTAL) 25 mg tablet 360 tablet 1 Sig: TAKE 2 TABLETS TWICE DAILY. TAKE IN ADDITION TO 200MG TABLETS FOR TOTAL DOSE OF 250MG TWICE DAILY. Authorizing Provider: SELENA ATKINSON PA-C * Telephone Encounter - Emily Allan - 12/06/2022 10:48 AM EDT Prescription Refill: Requested by: pharmacy Please E-Scribe Caller Contact Number: [facility] Pharmacy Number: [phone] Generic/ brand: 30 or 90 day supply requested: 90 Last appointment: 05/24/22 Next Appointment: none Patient of Dr. Xie * Telephone Encounter - Marjan Betancourt LPN - 12/06/2022 10:10 AM EDT Kristen--11/27/22 Nov--04/02/23 Last refill--lamictal 200 mg-- 01/12/22 180 with 3 refills Lamictal 25 mg 11/06/22 360 with 1 refill Last labs--11/27/22 * Telephone Encounter - Niurka Doherty Pss - 12/06/2022 9:28 AM EDT Pharmacy verified in Epic Patient has been identified by name and date of : Yes Patient aware RX will be sent to pharmacy. No need to notify patient. Spouse phones for refill(s): Requested Prescriptions Pending Prescriptions Disp Refills lamoTRIgine (LAMICTAL) 200 mg tablet 180 tablet 3 Sig: Take 1 tablet by mouth twice daily. lamoTRIgine (LAMICTAL) 25 mg tablet 360 tablet 1 Date of last office visit : 11/27/2022 Date of next office visit : 04/02/2023 Last 2 Encounter Wt Readings: Date: Wt: 11/27/2022 118.8 kg (262 lb) 11/27/2022 120.2 kg (265 lb) Please advise. Niurka Doherty Pss documented in this encounterRiverside [facility]05-02-2023 Miscellaneous Notes* Telephone Encounter - Erica Silva RN - 12/05/2022 1:49 PM EDT Spoke with patients , provided recommendations below. She will call office with any further seizures. Erica Silva RN * Telephone Encounter - Selena Atkinson PA-C - 12/05/2022 10:10 AM EDT Agree, wouldn't make any changes in acute infection unless he has further seizures (could temporarily add benzo). Please avoid other triggers including sleep deprivation, stress, and alcohol. Thanks, Selena Atkinson PA-C * Telephone Encounter - Erica Silva RN - 12/05/2022 9:47 AM EDT Spoke with patients , she reports 2 seizures yesterday #1- Patient yells out, arms out and body shaking, He was sitting in his reclincer. 1 minute. #2- same as above with +tongue bite estimated time 3 minutes and 10 minutes to come to. Patient didn't feel well remainder of the day. In speaking with , patient went to [facility] last week, looks like first antibiotic was denied by insurance and another was ordered. was not aware of this. We went over the instructions for use and that having any type of infection/virus can trigger seizures. MEDS LCM 200mg BID LTG 250mg BID ZNS 300mg BID Erica Silva RN * Telephone Encounter - Atiya Mendez Asst - 12/05/2022 8:02 AM EDT Seizure activity: Name of Caller : Atiya Breen Relationship to patient: Self Contact phone number: [phone] Date of seizure: 12/04/22 Duration: 4 minutes Back to Baseline (Yes/No): No, not feeling good Emergency treatment needed (Yes/No): no Patient of Dr. Xie documented in this encounterRiverside [facility] Hospital05-02-2023 Miscellaneous Notes* Telephone Encounter - Sobeida Nair LPN - 12/05/2022 9:30 AM EDT Patient Dylon calling she said has had 10 seizures since June, most recent was yesterday. She had called Dr Xie Neurologist at [facility] to notify him also. His next appt with Neurology is scheduled for 01/10/2023. said she rescheduled INR to Friday 12/08 since he is verytired today. documented in this encounterRiverside [facility] Hospital04-27-2023 Miscellaneous Notes* Telephone Encounter - Gay - 11/30/2022 8:58 AM EDT Pt and pt spouse informed and verbalized understanding. Gay Wodos * Telephone Encounter - Selena Berg LPN - 11/28/2022 5:07 PM EDT Pt. informed detailed message left on VM. He is to call back and verify message. * Telephone Encounter - Hari Oneill DO - 11/28/2022 5:05 PM EDT Restart coumadin at 5 mg a day and recheck INR 1 week Hari Onelil DO * Telephone Encounter - Selena Berg LPN - 11/28/2022 1:03 PM EDT Last INR: INR Home CoaguChek 1.0 11/27/2022 Current dose of coumadin is: Held. Last date of dose change: 11/24/22. Previous INR (date and result): 5.1 Additional Clinical Information or narrative: no documented in this encounterRiverside [facility] Hospital04-24-2023 History of Present illness Narrative* Hari Oneill DO - 11/27/2022 1:34 PM EDT CC: Eder Breen is a 67 year old male who presents to the office for follow up HPI: Has been intentionally working on weight loss, with dietary changes, increased water intake of at least 8 glasses of water a day. Feels his high hunger has markedly improved. Has been working with the [employer] specialist to help him with modifying his diet. Recently had testing with Gastroenterology for ? concerns for bacterial overgrowth. He was supposedto start on Rifaximin but states that insurance won't cover this medication. He hasn't reached out to the specialist regarding next steps. His testing for SIBO was equivocal. Mood, stable, feels he is doing better with riding his bike at home for 10-20 min a day, knows needs to go to the gym to exercise more as well- considering this. 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 pylori infection 11/2013 Hemorrhoids History of DVT/PE 01/12/2013 - history of saddle PE in 2010 - IVC filter placed in 2011 possible in the setting of increased risk of falls while on coumadin - coumadin use complaicated by GI bleeding in the setting of supratherapeutic INR, warfarin stopped in 11/2012 - Repeat DVT involving common iliac/femoral and IVD distal tothe filter in 01/2013 while off coumadin, restarted on coumadin - Currently sub therapeutic on coumadin PLAN: -Increase coumadin to 7.5 mg daily - continue coumadin for life in the setting of PE Continue to bridge with lovenox as INR subtherapeutic. 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 sclerosis 07/2013 by echo WILBERTO (obstructive sleep apnea) Pulmonary embolism (HCC) hx of S/P insertion of IVC (inferior vena caval) filter thrombosed (S/P Lysis) Seizures (HCC) Snoring SUMMARY 01/12/2013 Mr Breen is a 58 y M with a medical history significant for: - Grade 3 Follicilar lymphoma, 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 Recent DVT in the common iliac, femoral and IVC distal to the IVD filter in 01/2013 while off coumadin. Currently on coumadin and no bleeding episodes/ falls Who is transferred from [facility] for the further evaluation of his dizziness which started about 3 -4 days ago and is now re Traumatic brain injury (HCC) There is a questionabale history of around age of 3 year he was dropped on the driveway may have lost consciousness Traumatic brain injury (HCC) There is a questionabale history of around age of 3 year he was dropped on the driveway may have lost consciousness Unspecified epilepsy without mention of intractable epilepsy Vitamin B12 deficiency 11/2013 Vitamin D deficiency normal level 11/2011 PAST SURGICAL HISTORY Procedure Laterality Date APPENDECTOMY HX COLONOSCOPY FLX DX W/COLLJ SPEC WHEN PFRMD 12/27/2009 Colonoscopy COLONOSCOPY FLX DX W/COLLJ SPEC WHEN PFRMD 05/03/2021 ESOPHAGOGASTRODUODENOSCOPY TRANSORAL DIAGNOSTIC 02/12/2012 EGD ESOPHAGOGASTRODUODENOSCOPY TRANSORAL DIAGNOSTIC 03/27/[address] [facility] inpt ESOPHAGOGASTRODUODENOSCOPY TRANSORAL DIAGNOSTIC 06/04/2012 EGD ESOPHAGOGASTRODUODENOSCOPY TRANSORAL DIAGNOSTIC N/A 11/13/2016 ESOPHAGOGASTRODUODENOSCOPY TRANSORAL DIAGNOSTIC 02/15/2018 EGD ESOPHAGOGASTRODUODENOSCOPY TRANSORAL DIAGNOSTIC 05/03/2021 INSJ TUNNELED CTR VAD W/SUBQ PORT AGE 5 YR/> 04/11/2012 INTRO. 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 right eye blind, injured during seizure Social History: Social History Tobacco Use Smoking status: Never Smokeless tobacco: Never Vaping Use Vaping Use: Never used Substance Use Topics Alcohol use: No Drug use: No FAMILY HISTORY Problem Relation Age of Onset Stroke Mother Cancer Mother patient states he came from an infection due to a back injury Current Outpatient prescriptions: lacosamide (VIMPAT) 200 mg Take 1 tablet by mouth twice daily for 180 days. rifAXIMin (XIFAXAN) 550 mg tablet Take 1 tablet by mouth three times daily for 14 days. lamoTRIgine (LAMICTAL) 25 mg tablet TAKE 2 TABLETS TWICE DAILY. TAKE IN ADDITION TO 200MG TABLETS FOR TOTAL DOSE OF 250MG TWICE DAILY. furosemide (LASIX) 40 mg tablet Take 1 tablet by mouth once daily. cyanocobalamin, vitamin B-12, (VITAMIN B-12 ORAL) Take 1 tablet by mouth once daily. FLUoxetine (PROZAC) 20 mg capsule Take 1 capsule by mouth once daily. in the morning for mood buPROPion (WELLBUTRIN) 75 mg tablet Take 1 tablet by mouth twice daily. blood sugar diagnostic (BLOOD GLUCOSE TEST) test strip Test blood sugar(s) 2 times daily. Dx: OtherDM Code E16.2 Insulin: No Lancets lancets Test blood sugar(s) 1 times daily. Dx: Other DM Code E16.2 Insulin: No zonisamide (ZONEGRAN) 100 mg capsule Take 3 capsules by mouth every morning AND 3 capsules every evening. loperamide HCl (IMODIUM A-D) 2 mg tab Take 1 tablet by mouth as needed. lamoTRIgine (LAMICTAL) 200 mg tablet TAKE 1 TABLET TWICE DAILY levothyroxine (LEVOXYL) 75 mcg tablet Take 1 tablet by mouth daily before breakfast. Take on empty stomach 30 minutes before eating. For Thyroid pantoprazole DR (PROTONIX) 40 mg tablet Take 1 tablet by mouth daily before breakfast. For stomach symptoms, Take on empty stomach, 1/2 hr before meal. warfarin (COUMADIN) 5 mg tablet As of 06/22/2022: Take 2.5 tablets (12.5mg) by mouth , Sunday, Sunday, Sunday. Recheck INR on Tuesday 06/26. Allergies: ALLERGIES Allergen Reactions Doxycycline GI Upset Lactose Intolerance* Diarrhea ROS: See HPI PE: 11/27/22 1316 BP: 130/80 Pulse: 76 Resp: 20 Temp: 36.3 C (97.3 F) TempSrc: Left Tympanic Weight: 120.2 kg (265 lb) Gen: A&OX3, NAD, non-toxic appearing HEENT: PERRLA, EOMs intact on left, without visual ability on right, nares without drainage, pharynx without erythema, exudate, lesions, or drainage. Uvula midline. Neck: No LAD, no thyromegaly, no meningismus. CV: RRR, no murmur Lungs: CTA b/l, no wheezing Skin: No rashes, lesions, or wounds on exposed skin. Obesity Trace non pitting b/l leg edema Gait is normal ASSESSMENT/PLAN: 1. Hypothyroidism, acquired - ICD9: 244.9, ICD10: E03.9 (primary diagnosis) - Instructed patient on importance of taking on an empty stomach either first thing in the morning or at bedtime. - continue current dose of Synthroid Stable - Behavioral intervention and - Continue current medications - LEVOTHYROXINE 75 MCG TABLET - CBC + DIFF - COMP METABOLIC PANEL - TSH BLD 2. History of pulmonary embolus (PE) - ICD9: V12.55, ICD10: Z86.711 Recheck INR as ordered, he is currently holding warfarin due to elevated INR 3. halfway current use of anticoagulant therapy - ICD9: V58.61, ICD10: Z79.01 Recheck INR as ordered, he is currently holding warfarin due to elevated INR - PROTHROMBIN TIME/PT 4. Dyslipidemia - ICD9: 272.4, ICD10: E78.5 - to be determined upon return of lab results - Encouraged following a low fat, low cholesterol diet. - Discussed the benefits of regular aerobic exercise and weight loss. - Check fasting lipid panel - LIPID PANEL, NONFASTING 5. IFG (impaired fasting glucose) - ICD9: 790.21, ICD10: R73.01 - recheck labs as ordered. - HGB A1C 6. Screening for prostate cancer - ICD9: V76.44, ICD10: Z12.5 - Counseled on healthy diet and regular exercise - PSA/PROSTSPECAG SCRN 7. Diffuse large B-cell lymphoma, unspecified body region (HCC) - ICD9: 202.80, ICD10: C83.30 - hx of, no current symptoms 8. Morbid obesity (HCC) - ICD9: 278.01, ICD10: E66.01 Weight decreasing - Behavioral intervention, - Eat well program, and - Continue current medications 9. Major depressive disorder, single episode, in full remission (HCC) - ICD9: 296.26, ICD10: F32.5 Stable, has support from his . 10. Partial epilepsy, with intractable epilepsy, pharmacoresistant (HCC) - ICD9: 345.51, ICD10: G40.119 - f/u with Neurologist for mgmt of symptoms and medications. 11. Eating disorder, unspecified type - ICD9: 307.50, ICD10: F50.9 - f/u with [employer], he is working on eating behavioral changes at this time. 12. Bilateral leg edema - ICD9: 782.3, ICD10: R60.0 - stable, improved Hari Oneill DO To ER if develops chest pain, shortness of breath, or severe worsening of symptoms. Discussed risks, benefits, alternatives, and potential side effects of medications. Patient expressed understanding and agreed with the plan. Hari Oneill DO [address] [place] [address] documented in this [facility]23 Instructions* Patient Instructions* Audra Chauhan RD - 11/27/2022 12:43 PM EDT Work on increasing endurance, increase to 15 min bike one session and 10 the next, then aim for 15 min twice daily. All beverages calorie free and sugar free, no juice - eat the fruit then drink water Here are ways to start incorporating more vegetables into your diet. Try roasting vegetables-this mellows the flavors. Try cooking veggies in tomato sauce or broth. Try grilling vegetables, slightly nikko grilled veggies taste wonderful. Try a vegetable spiralizer to make veggies interesting in shape and mix in with other foods like pasta for example. Buy baby veggies-these naturally are more sweet and less bitter. Toss in flavor infused olive oil to bind the spices and herbs. Consider using a dip such as a [place] yogurt based (nonfat plain [place] yogurt with dressing mix or other seasonings). Magalis veggies then dip in cold water to stop the cooking process and yield sweeter and milder tasting veggies. Slow roast or cook those in the onion family such as leeks, shallots, garlic etc to yielda mild sweet flavor. Consider adding finely chopped veggies to foods to sneak them in or puree to add to broths and sauces. A good source for recipes can be found in Eating Well or Cooking Light and a variety of other sources Work on increasing fiber in diet, goal at least 20 grams fiber per day If able no evening snack, but if snack needed, have a fresh fruit Work on normalizing sleep/wake patterns. NO naps, work on getting ~8 hours sleep night All meals and snacks at the dinner table; minimize distractions, no TV while eating. Make meals last at least 20 min, chew each bite of food 20 x per bite.Portion out all foods, never eat out of container. Become more mindful of meal: Enjoy flavors, textures etc. Use hunger/fullness scale Include 3 fresh fruit daily and half plate veggies at lunch and dinner. documented in this encounterR[facility]04-[facility]23 History of Present illness Narrative* Audra Chauhan RD - 11/27/2022 12:12 PM EDT Nutritional Therapy Re-Assessment Nutrition Diagnosis: Overweight/obesity, related to, excess energy intake and physical inactivity, as evidenced by BMI above normative standard for age and gender RECOMMENDED MALNUTRITION DIAGNOSIS: NO MALNUTRITION IDENTIFIED NUTRITION CARE PLAN: Nutrition Intervention 11/27/2022: modify type and amount of food or beverage Work on increasing endurance, increase to 15 min bike one session and 10 the next, then aim for 15 min twice daily. All beverages calorie free and sugar free, no juice - eat the fruit then drink water Here are ways to start incorporating more vegetables into your diet. Try roasting vegetables-this mellows the flavors. Try cooking veggies in tomato sauce or broth. Try grilling vegetables, slightly nikko grilled veggies taste wonderful. Try a vegetable spiralizer to make veggies interesting in shape and mix in with other foods like pasta for example. Buy baby veggies-these naturally are more sweet and less bitter. Toss in flavor infused olive oil to bind the spices and herbs. Consider using a dip such as a [place] yogurt based (nonfat plain [place] yogurt with dressing mix or other seasonings). Magalis veggies then dip in cold water to stop the cooking process and yield sweeter and milder tasting veggies. Slow roast or cook those in the onion family such as leeks, shallots, garlic etc to yielda mild sweet flavor. Consider adding finely chopped veggies to foods to sneak them in or puree to add to broths and sauces. A good source for recipes can be found in Eating Well or Cooking Light and a variety of other sources Work on increasing fiber in diet, goal at least 20 grams fiber per day If able no evening snack, but if snack needed, have a fresh fruit Work on normalizing sleep/wake patterns. NO naps, work on getting ~8 hours sleep night All meals and snacks at the dinner table; minimize distractions, no TV while eating. Make meals last at least 20 min, chew each bite of food 20 x per bite.Portion out all foods, never eat out of container. Become more mindful of meal: Enjoy flavors, textures etc. Use hunger/fullness scale Include 3 fresh fruit daily and half plate veggies at lunch and dinner. Nutrition Monitoring & Evaluation: 1-2 lb weight loss per week Need for Follow up: 4-6 weeks PROGRESS: Interval History: Following as relates to class 2 obesity Body mass index is 35.53 kg/m . GERD, HTN, dyslipidemia, WILBERTO, impaired fasting glucose, epilepsy and had seizure yesterday. Spouse present and supportive. Working on modifying diet, limit snacks between meals, still snack in evening. Has increase water intake to 64 oz daily. Has increased exercise to cardio most days but less than recommended, also plans to go back to [employer] three days per week for weights. Note 15 lbs lost sincelast visit. Nutrition Intervention 10/16/22 Work on normalizing sleep/wake patterns. NO naps, work on getting ~8 hours sleep night. 2. Choose whole grain, high fiber breads and grains only 3. Avoid snacks between meals 4. Here are ways to start incorporating more vegetables into your diet. Try roasting vegetables-this mellows the flavors. Try cooking veggies in tomato sauce or broth. Try grilling vegetables, slightly nikko grilled veggies taste wonderful. Try a vegetable spiralizer to make veggies interesting in shape and mix in with other foods like pasta for example. Buy baby veggies-these naturally are more sweet and less bitter. Toss in flavor infused olive oil to bind the spices and herbs. Consider using a dip such as a [place] yogurt based (nonfat plain [place] yogurt with dressing mix or other seasonings). Magalis veggies then dip in cold water to stop the cooking process and yield sweeter and milder tast ing veggies. Slow roast or cook those in the onion family such as leeks, shallots, garlic etc to yield a mild sweet flavor. Consider adding finely chopped veggies to foods to sneak them in or puree to add to broths and sauces. A good source for recipes can be found in Eating Well or Cooking Light and a variety of other sources 5. All meals and snacks at the dinner table; minimize distractions, no TV while eating. Make meals last at least 20 min, chew each bite of food 20 x per bite.Portion out all foods, never eat out of container. Become more mindful of meal: Enjoy flavors, textures etc. Use hunger/fullness scale. 6. Aim for breakfast, lunch and dinner; no snacks, OK for healthy snack at around 9-10 p.m then nothing after that. 7. Include 3 fresh fruit daily and half plate veggies at lunch and dinner. 8. All beverages calorie free and sugar 9. Keep a food record, include portions. 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 Resting Metabolic Rate: 1994 Malnutrition Screening Significant unintentional weight loss? No Eating less than 75% of usual intake for more than 2 weeks? No Potential Signs of Inflammation: no identifiable sources Nutritional status: Education Materials Provided: Improving Health with Fiber READINESS TO LEARN Cognitive ability: Alert and oriented Motivation to learn: Interested Family support: Unable to assess - Family not present Instruction provided to: Patient Patient learns best by: Individual Instruction Factors affecting learning: None Physical limitations affecting learning: None Likelihood of Adherence: Moderate Referred/Supervised by: Nino/Nino MNRoxane Billing Type: Re-assess/15 min 2 units SIGNATURE: Audra Chauhan RD PATIENT NAME: Eder Breen DATE: November 27, 2022 TIME: 12:15 PM documented in this encounterR[facility]04-14-2023 Miscellaneous Notes* Telephone Encounter - Laurita Grady RN - 11/17/2022 4:27 PM EDT Prior authorization denied for Xifaxan 550 mg tablet. * Telephone Encounter - Laurita Grady RN - 11/17/2022 8:18 AM EDT Received prior authorization request for Xifaxan 550 mg tablets. Lazo: [id number] RX: [id number] documented in this encounterR[facility]04-11-2023 Miscellaneous Notes* Telephone Encounter - Shanda Lainez APRN.CNP - 11/14/2022 11:07 AM EDT Call placed to patient to review breath testing results. Unable to reach pt or leave message. Will contact via MC. Shanda Lainez APRN.CNP documented in this encounterR[facility]04-04-2023 History of Present illness Narrative* Angelic Lipscomb RN - 11/07/2022 1:21 PM EDT Name: Eder Breen [facility]#: [id number] Date: 11/07/2022 GLUCOSE - BREATH HYDROGEN & METHANE TEST Indication: Diarrhea Pain Assessment: No pain is present. Test Preparation: NPO for since last evening. No antibiotics or Pepto Bismol have been taken during the last 4 weeks. No colonscopy within the last 3-4 weeks A 75g Glucose solution was given. Breath samples were taken every 15 minutes for 1 hour and 30 minutes. The LACTOSE breath hydrogen/methane test was completed. .Angelic Lipscomb RN documented in this encounterR[facility]03-31-2023 Miscellaneous Notes* Telephone Encounter - SANDI Rose - 11/03/2022 12:16 PM EDT KRISTEN 08/29/2022 Appointment scheduled 11/27/2022 Please advise. Thank you. SANDI Rose * Telephone Encounter - Mago Carroll - 11/03/2022 12:06 PM EDT Patient has been identified by name and date of : Yes Requested Prescriptions Pending Prescriptions Disp Refills furosemide (LASIX) 40 mg tablet 90 tablet 3 Sig: Take 1 tablet by mouth once daily. RX INSTRUCTIONS: Patient aware RX will be sent to pharmacy. No need to notify patient. Mago Carroll documented in this [facility]03-17-2023 Miscellaneous Notes* Telephone Encounter - Gay Woods - 10/20/2022 1:31 PM EDT No order in chart Gay Woods * Telephone Encounter - Hari Oneill DO - 10/20/2022 1:11 PM EDT He should have a standing order Hari Oneill DO * Telephone Encounter - Gay Woods - 10/20/2022 12:59 PM EDT Pt informed, verbalized understanding. Please place INR order to be rechecked on Sunday. Gay Woods * Telephone Encounter - Hari Oneill DO - 10/20/2022 12:55 PM EDT Please inform patient to hold coumadin today, tomorrow and Sunday. Recheck INR on Sun Hari Oneill DO * Telephone Encounter - La London RN - 10/20/2022 11:40 AM EDT Claire Verde, [facility], reporting critical INR done today 10-20-22 @ 9:53 am of 5.1. Notified CELIO Phillip via phone who will let pcp know. documented in this encounterR[facility]03-17-2023 Miscellaneous Notes* Telephone Encounter - Neli Lutz PA-C - 10/20/2022 11:20 AM EDT Patient's INR came back elevated at 5.1. I did call and discuss this with him. Reiterated to him tohold his Coumadin until he follows up with primary care next week. He is not having any active bleeding, CBC was normal. Discussed if he starts to have any active bleeding needs seen in the ER. Patient agreeable with plan. documented in this encounterRiverside [facility]03-13-2023 Instructions* Patient Instructions* Audra Chauhan, RD - 10/16/2022 10:54 AM EDT Work on normalizing sleep/wake patterns. NO naps, work on getting ~8 hours sleep night. 2. Choose whole grain, high fiber breads and grains only 3. Avoid snacks between meals 4. Here are ways to start incorporating more vegetables into your diet. Try roasting vegetables-this mellows the flavors. Try cooking veggies in tomato sauce or broth. Try grilling vegetables, slightly nikko grilled veggies taste wonderful. Try a vegetable spiralizer to make veggies interesting in shape and mix in with other foods like pasta for example. Buy baby veggies-these naturally are more sweet and less bitter. Toss in flavor infused olive oil to bind the spices and herbs. Consider using a dip such as a [place] yogurt based (nonfat plain [place] yogurt with dressing mix or other seasonings). Magalis veggies then dip in cold water to stop the cooking process and yield sweeter and milder tast ing veggies. Slow roast or cook those in the onion family such as leeks, shallots, garlic etc to yield a mild sweet flavor. Consider adding finely chopped veggies to foods to sneak them in or puree to add to broths and sauces. A good source for recipes can be found in Eating Well or Cooking Light and a variety of other sources 5. All meals and snacks at the dinner table; minimize distractions, no TV while eating. Make meals last at least 20 min, chew each bite of food 20 x per bite.Portion out all foods, never eat out of container. Become more mindful of meal: Enjoy flavors, textures etc. Use hunger/fullness scale. 6. Aim for breakfast, lunch and dinner; no snacks, OK for healthy snack at around 9-10 p.m then nothing after that. 7. Include 3 fresh fruit daily and half plate veggies at lunch and dinner. 8. All beverages calorie free and sugar 9. Keep a food record, include portions. documented in this encounterR[facility]03-13-2023 History of Present illness Narrative* Audra Chauhan RD - 10/16/2022 10:25 AM EDT Nutrition Therapy Initial Assessment Nutrition Diagnosis: Overweight/obesity, related to, excess energy intake and physical inactivity, as evidenced by BMI above normative standard for age and gender. RECOMMENDED MALNUTRITION DIAGNOSIS: NO MALNUTRITION IDENTIFIED NUTRITION CARE PLAN Nutrition Intervention 10/16/2022: modify type and amount of food or beverage Work on normalizing sleep/wake patterns. NO naps, work on getting ~8 hours sleep night. 2. Choose whole grain, high fiber breads and grains only 3. Avoid snacks between meals 4. Here are ways to start incorporating more vegetables into your diet. Try roasting vegetables-this mellows the flavors. Try cooking veggies in tomato sauce or broth. Try grilling vegetables, slightly nikko grilled veggies taste wonderful. Try a vegetable spiralizer to make veggies interesting in shape and mix in with other foods like pasta for example. Buy baby veggies-these naturally are more sweet and less bitter. Toss in flavor infused olive oil to bind the spices and herbs. Consider using a dip such as a [place] yogurt based (nonfat plain [place] yogurt with dressing mix or other seasonings). Magalis veggies then dip in cold water to stop the cooking process and yield sweeter and milder tast ing veggies. Slow roast or cook those in the onion family such as leeks, shallots, garlic etc to yield a mild sweet flavor. Consider adding finely chopped veggies to foods to sneak them in or puree to add to broths and sauces. A good source for recipes can be found in Eating Well or Cooking Light and a variety of other sources 5. All meals and snacks at the dinner table; minimize distractions, no TV while eating. Make meals last at least 20 min, chew each bite of food 20 x per bite.Portion out all foods, never eat out of container. Become more mindful of meal: Enjoy flavors, textures etc. Use hunger/fullness scale. 6. Aim for breakfast, lunch and dinner; no snacks, OK for healthy snack at around 9-10 p.m then nothing after that. 7. Include 3 fresh fruit daily and half plate veggies at lunch and dinner. 8. All beverages calorie free and sugar 9. Keep a food record, include portions. Nutrition Monitoring & Evaluation: healthy intake patterns, weight loss Need for Follow up: 4-6 weeks Patient presents for initial MNT as relates to class 2 obesity, continues to gain weight; other medical issues GERD, HTN, dyslipidemia, WILBERTO, inpaired fasting glucose. . Intake noted for eating 3 meals and excess snacking throughout the day and into the evening, with several large snacks late at night. Feels needs to feel full all the time. Includes frequent high fat, high saturated fat foods and sweets and snacks, includes sugar sweetened beverages when out. Note limited produce and whole grains. Typically poor sleep patterns, low sleep at night ,napping during the day with high fatigue. No regular exercise and sedentary during the day. Spouse present, patient and spouse shop and prepare foods separately. Has upcoming gastroenterology evaluation. Patient's symptoms are: Weight Concerns: weight gain Diet History: wake 5 a.m. Breakfast - 5 - pancakes, eggs, sausage, toast; this morning scrambled eggs, wheat toast, water Snack - no, occ pie, pop tart, Doritos, chex mix Lunch - chex mix, Dash Wilson, big breakfast meal. With o juice, burger/Ff; spaghetti; spaghetti and meals balls and sweet tea Snack - chex mix Dinner - 8 - pizza with sausage (cheddar smokies) ;then one hour later a pancake; Snack - 10 pancake Then up at midnite Beverages - flavored water zero, when out sweet tea, Alcohol- no Vitamins/Supplements - B12 To bed 12:00 a.m. 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 Resting Metabolic Rate: 2062 Malnutrition Screening Significant unintentional weight loss? No Eating less than 75% of usual intake for more than 2 weeks? No Potential Signs of Inflammation: no identifiable sources Education Materials Provided: Plate method READINESS TO LEARN Cognitive ability: Alert and oriented Motivation to learn: Interested Family support: High - Very involved in pt care Instruction provided to: Patient and Spouse Patient learns best by: Individual Instruction Factors affecting learning: None Physical limitations affecting learning: None Referred/Supervised by: Nino/Chely VALERO Billing Type: Initial Assess/15 min 3 units SIGNATURE: Audra Chauhan RD PATIENT NAME: Eder Breen DATE: October 16, 2022 TIME: 10:22 AM documented in this encounterRiverside [facility]03-09-2023 History of Present illness Narrative* Vicenta Jiménezgo, [facility] - 10/12/2022 11:00 AM EST Primary Care Pharmacy Visit CC (Reason for Consult): Cost concerns Collaborating Provider: Hari Oneill DO Last Provider Visit: 08/29/22 Eder Breen is a 67 year old male presenting for initial visit: This initial consult was conducted in person with the patient where the consult agreement was explained. The patient may declineor cancel the agreement at any time. After consideration, the patient consented to the pharmacy consult agreement and agreed to allow medications be collaboratively managed by a pharmacist. Patient is presenting today for initial pharmacotherapy management appointment for cost concerns. Per PCP's telephone encounter form 09/01, patient advised to see PharmD to get assistance with affording Xarelto. Subjective: HPI: Here with , [place]. States their main reason for visit today is to address patient's large appetite. They are trying tofigure out why he is gaining so much weight. Eats eggs and toast at night and then a couple of hours later will eat pancakes before dinner. Seeing a divinity professor in November to discuss the issue. Patient states he doesn't feel full. He feels very hungry all the time. Says this has been going on constantly since 2021, thinks maybe in December? Says this stimulation in appetite is biggest concern. Wondering if there is a medication that could help with appetite suppression? Wondering if has a leakygut? Admits his diet is poor and he is a picky eater. says he eats junk. thinks he should go to [employer] with her to help with weight loss, may help him. Patient wants to know moreabout what PCP has to say about the issue. Patient didn't seem concerned about the cost of Xarelto. Said it was too expensive and he is takingwarfarin now. ROS: Patient denies CP, SOB, COLEMAN, blurred vision, dizziness or lightheadedness Patient denies symptoms of hypoglycemia (sweating, anxiety, palpitations, hunger, and tremor) Patient denies symptoms of hyperglycemia (polyuria, polydipsia, polyphagia) Patient denies potential medication adverse effects MEDICATIONS: Pill bottles are not present Adherence: denies missed doses Pharmacy: [facility]; only med that comes from outside of [facility] is Vimpat Rx coverage: [facility] Medicare Part D Affordability: Xarelto was expensive, now on warfarin; gets Vimpat through a free program Organization System: pill pack tower ACTIVE PROBLEM LIST Urinary Frequency History of Pulmonary Embolus (Pe) Partial Epilepsy, With Intractable Epilepsy, Pharmacoresistant (Hcc) Gerd (Gastroesophageal Reflux Disease) Anxiety and Depression Fatigue S/P Ivc Filter Diffuse Large B Cell Lymphoma (Hcc) Hypertension Anticoagulation Management Encounter Full Code Status Low Hdl (Under 40) Wilberto (Obstructive Sleep Apnea) Vitamin B12 Deficiency Vitamin D Deficiency Hypercholesterolemia Hemorrhoids Diverticulosis of Large Intestine Basal Cell Carcinoma Ddd (Degenerative Disc Disease), Cervical Elevated Lfts Obesity, Class I, Bmi 30-34.9 Bilateral Leg Edema Impaired Fasting Glucose History of Melanoma Excision Seizure (Hcc) Pain in Right Shoulder Hypothyroidism, Acquired Abnormal Biliary Hida Scan Nausea Right Upper Quadrant Pain Functional Diarrhea Fdc Current Use of Anticoagulant Therapy Diarrhea Bloating Weight Gain Appetite Increase Lactose Intolerance Eating Disorder Dyslipidemia Dysthymia PAST MEDICAL HISTORY Diagnosis Date Abdominal pain, lower Acute gastritis without mention of hemorrhage Advance care planning 05/22/2022 Dylon to help with planning Arthritis Basal cell carcinoma DDD (degenerative disc disease), cervical Deep vein thrombophlebitis of leg (HCC) hx of Depression Diffuse large B cell lymphoma (HCC) 03/2012 duodenal Diverticulosis of colon (without mention of hemorrhage) Duodenitis without mention of hemorrhage GERD (gastroesophageal reflux disease) H. pylori infection 11/2013 Hemorrhoids History of DVT/PE 01/12/2013 - history of saddle PE in 2010 - IVC filter placed in 2011 possible in the setting of increased risk of falls while on coumadin - coumadin use complaicated by GI bleeding in the setting of supratherapeutic INR, warfarin stopped in 11/2012 - Repeat DVT involving common iliac/femoral and IVD distal tothe filter in 01/2013 while off coumadin, restarted on coumadin - Currently sub therapeutic on coumadin PLAN: -Increase coumadin to 7.5 mg daily - continue coumadin for life in the setting of PE Continue to bridge with lovenox as INR subtherapeutic. 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 sclerosis 07/2013 by echo WILBERTO (obstructive sleep apnea) Pulmonary embolism (HCC) hx of S/P insertion of IVC (inferior vena caval) filter thrombosed (S/P Lysis) Seizures (HCC) Snoring SUMMARY 01/12/2013 Mr Breen is a 58 y M with a medical history significant for: - Grade 3 Follicilar lymphoma, 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 Recent DVT in the common iliac, femoral and IVC distal to the IVD filter in 01/2013 while off coumadin. Currently on coumadin and no bleeding episodes/ falls Who is transferred from [facility] for the further evaluation of his dizziness which started about 3 -4 days ago and is now re Traumatic brain injury There is a questionabale history of around age of 3 year he was dropped on the driveway may have lost consciousness Traumatic brain injury There is a questionabale history of around age of 3 year he was dropped on the driveway may have lost consciousness Unspecified epilepsy without mention of intractable epilepsy Vitamin B12 deficiency 11/2013 Vitamin D deficiency normal level 11/2011 ALLERGIES Allergen Reactions Doxycycline GI Upset Lactose Intolerance* Diarrhea Medication List Medication Directions Comments Action/Plan blood sugar diagnostic (BLOOD GLUCOSE TEST) test strip Test blood sugar(s) 2 times daily. Dx: OtherDM Code E16.2 Insulin: No supplies brivaracetam (BRIVIACT) 100 mg tablet Take 1 tablet by mouth twice daily for 180 days. Not taking, doesn't ever remember taking medication; order old in [facility]; not in recent fill hx Removed from med list buPROPion (WELLBUTRIN) 75 mg tablet Take 1 tablet by mouth twice daily. Started for appetite. Hasn't noticed any change in appetite yet. clonazePAM orally disintegrating (KLONOPIN WAFER) 0.5 mg disintegrating tablet Take 1 tab for seizures lasting longer than 3 minute or more than 2 seizures in 8 hours. May repeat dose in 10 minutes if seizures continue. Do not exceed more than 2 tabs in 24 hours. Patient not sure if he has this or not, doesn't recall having it at home; not on external fill hx; last ordered in Mar 2021 for 10 tabs with zero refills Removed from med list finasteride (PROSCAR) 5 mg tablet TAKE 1 TABLET EVERY DAY Patient doesn't think he is taking; not on fill hx; Rx Removed from med list FLUoxetine (PROZAC) 20 mg capsule Take 1 capsule by mouth once daily. in the morning for mood taking furosemide (LASIX) 40 mg tablet Take 1 tablet by mouth once daily. Says he takes though not on dispense history Left on med list but advised he double check his pillsat home to see if he is actually taking it lacosamide (VIMPAT) 200 mg Take 1 tablet by mouth twice daily for 180 days. Taking; gets through a university relations vice president which is why not on external fill hx lamoTRIgine (LAMICTAL) 200 mg tablet TAKE 1 TABLET TWICE DAILY Thinks he is taking it but not sure of dose. Thinks he is only taking 1 tablet of lamotrigine daily Advised to check at home to know how he is taking lamotrigine lamoTRIgine (LAMICTAL) 25 mg tablet Take 2 tablets by mouth twice daily. Take with 200 mg tablets for total of 250 mg twice daily Thinks he is taking it but not sure of dose. Thinks he is only taking 1 tablet of lamotrigine daily Advised to check at home to know how he is taking lamotrigine Lancets lancets Test blood sugar(s) 1 times daily. Dx: Other DM Code E16.2 Insulin: No supplies levothyroxine (LEVOXYL) 75 mcg tablet Take 1 tablet by mouth daily before breakfast. Take on empty stomach 30 minutes before eating. For Thyroid taking loperamide HCl (IMODIUM A-D) 2 mg tab Take 1 tablet by mouth as needed. OTC; has for PRN use ondansetron orally disintegrating (ZOFRAN ODT) 4 mg disintegrating tablet Take 1 tablet by mouth every 6 hours as needed for nausea/vomiting. Says he doesn't have and isn't using; old script and not filled recently Removed from med list pantoprazole DR (PROTONIX) 40 mg tablet Take 1 tablet by mouth daily before breakfast. For stomach symptoms, Take on empty stomach, 1/2 hr before meal. taking traZODone (DESYREL) 50 mg tablet Take 1 tablet by mouth daily at bedtime. Not taking; old script and not in fill hx Removed from med list warfarin (COUMADIN) 5 mg tablet As of 06/22/2022: Take 2.5 tablets (12.5mg) by mouth , Sunday, Sunday, Sunday. Recheck INR on Tuesday 06/26. Tried home INR monitor but couldn't use. Has 5mg tabs. Alternates between 10 and 12.5mg daily, can't recall exactly what he has. States it is writtenon a paper at home; Xarelto was too expensive so on warfarin zonisamide (ZONEGRAN) 100 mg capsule Take 3 capsules by mouth every morning AND 3 capsules every evening. Taking 3 caps BID as directed. Rx meds not listed in EPIC: none OTCs: vitamin B12 daily Herbals: none Objective: Exam: Last 3 Encounter BP Readings: Date: BP: 08/29/2022 128/62 07/10/2022 124/80 05/24/2022 127/59 Wt: 122.5 kg (270 lb) BMI: 36.62 kg/(m^2) LABS: Reviewed Lab Results Component Value Date HBA1C 5.6 07/10/2022 HBA1C 5.6 06/18/2021 HBA1C 5.5 04/19/2020 HBA1C 5.6 05/21/2017 CMP: Glucose 96 07/10/2022 BUN 21 07/10/2022 Creatinine, Whole Blood (iSTAT) 1.04 07/10/2022 Sodium 143 07/10/2022 Potassium 3.6 07/10/2022 Chloride 109 07/10/2022 CO2 Content, Venous 23 07/10/2022 Protein, Total 6.9 07/10/2022 Albumin 4.6 07/10/2022 Calcium 9.0 07/10/2022 Alkaline Phosphatase 125 07/10/2022 Bilirubin, Total 0.3 07/10/2022 AST 18 07/10/2022 ALT 18 07/10/2022 Estimated Creatinine Clearance: 90.6 mL/min (based on SCr of 1.04 mg/dL). Lab Results Component Value Date CHOL 163 06/18/2021 LDL 106 06/18/2021 HDL 36 06/18/2021 TG 103 06/18/2021 The 10-year ASCVD risk score (Angela CABALLERO, et al., 2019) is: 20.4% Values used to calculate the score: Age: 67 years Sex: Male Is Non- : No Diabetic: No Tobacco smoker: No Systolic Blood Pressure: 128 mmHg Is BP treated: Yes HDL Cholesterol: 36 mg/dL Total Cholesterol: 163 mg/dL No results found for: UALBCR PHARMACOTHERAPY ASSESSMENT/PLAN: 1. Increased appetite - ICD9: 783.6, ICD10: R63.2 (primary diagnosis) Patient has big appetite that started sometime last year. Seeing GI next month. Wants to discuss itin more detail with PCP. Eating junk per . Patient interested in knowing if any meds could help with appetite suppression and weight loss Advised to keep appt with GI Encouraged scheduling appt with PCP to discuss specifically the appetite issue PharmD reviewed med list to see if any could be contributing to weight gain. Per LexiComp: Fluoxetine: 1-10% increased appetite (though this should be offset with the recent addition of bupropion) Lamotrigine: <1% increased appetite (anorexia is actually more common at 2-5%) Levothyroxine: frequency not defined GLP1 agonist is a potential med option for patient to try to help with appetite suppression and weight loss. No significant drug interactions with current med list. Will forward to PCP for review. Would NOT recommend phentermine since amphetamines can decrease seizure potential threshold. - CONSULT TO NUTRITION THERAPY 2. Medication management - ICD9: V58.69, ICD10: Z79.899 Reviewed all medications, indications, dosing, frequency, administration with patient. Medication list updated as described above. Medication list changes: Removed: Briviact, ondansetron PRN, clonazepam PRN, trazodone, finasteride (see comments above in med list) Added: Vitamin B12 Discrepancies found: Lamotrigine - prescribed 250mg BID though patient thinks he is only taking 1 tab BID (rather than 2tabs of 25mg and 1 tab of 200mg BID). PharmD advised him to go home and see what he is actually taking. If different than what is prescribed, PharmD advised to NOT change how he has been taking this medication. If different than what is prescribed, he must contact neurologist's office to inform of the difference so neurology can recommend if dose adjustments are needed. PharmD warned of significant ADEs that can happen with rapid dose adjustments of this medication. Furosemide - patient thinks he is taking though not filled recently through pharmacy. Advised him to confirm with pills at home if taking. Cost concerns: Patient switched to warfarin because unable to afford Xarelto. Patient not eligible for Xarelto PAP though would qualify for Eliquis PAP once he meets the 3% [id number] expense requirement on Rx meds in 2022. Application provided to patient with instructions of how to request expense report from pharmacy. If interested and once meets the requirement, advised he drop application off at office for PCP or SW Follow-up Patient is scheduled to see PCP team on 11/27. No PharmD f/up needed. Patient verbalized understanding of instructions. Vicenta Garcias PharmD, BCPS Primary Care Clinical Pharmacist The majority of the pharmacy visit (> 50%) was spent counseling and/or coordinating care for thepatient. interaction: face to face time was 65 minutes. documented in this encounterR[facility]03[facility]23 Instructions* Patient Instructions* Vicenta Garcias RPh - 10/12/2022 11:00 AM EST Go home and check to see how you are taking lamotrigine (Lamictal). Pharmacy records indicate that you are receiving a 200mg tablet and a 25mg tablet (instructions are to take 250mg twice daily). If you realize you are taking a dose differently than what is prescribed, do NOT change how you are taking the medication. You need to contact your neurologist to let them know how you are taking the medication so they can decide how to adjust the dose if needed. Do NOT change the dose that you are taking if you find that you are taking something different. Making rapid dose adjustments to this medication can have very severe side effects. Also see if you are taking furosemide. It has not been filled recently. It sounds like you meet financial criteria to get Eliquis for free through the university relations vice president (this is to replace Warfarin). However, you must spend at least 3% of your annual household income on nuf-ps-hynraa expenses in 2022 before you would qualify. You will need to call your pharmacy to request an biq-me-iapkax expense report. Once you spend enough money, fill out the application and drop it off at PCP's office. Schedule an appointment with squaring machine operator. Schedule an appointment with PCP to discuss your issue with appetite. documented in this encounterR[facility]03-07-2023 Miscellaneous Notes* Telephone Encounter - Vicenta Garcias RPh - 10/10/2022 4:25 PM EST Patient is on PharmFrancisco's schedule for this for a 60 min visit though no consult is placed. Appears patient is having issues affording Xarelto and PCP was wondering if patient would be eligiblefor PAP. Called patient to discuss the cost issues though unable to reach. LMOM to return call to office. Patient does not likely need to have an appt with the pharmacy, this can be handled over the phone and/or through social work. Of note: Xarelto PAP is no longer available for Medicare Part D beneficiaries as of 2022. This will not be an option for the patient. Eliquis may be an option though patient would need to meet the specific income criteria and have spent >3% of their total household income on grs-hf-unmqhx expenses at their pharmacy. If unable to afford Xarelto and if patient doesn't qualify for Eliquis, may need to consider reverting back to warfarin which is inexpensive. Vicenta Garcias, Av, [facility] Primary Care Clinical Pharmacist documented in this encounterRiverside [facility]02-15-2023 Miscellaneous Notes* Telephone Encounter - Nancy Watosn LPN - 09/20/2022 11:54 AM EST Last office visit: 08/29/22 Next appointment scheduled: 11/27/22 Patient phones requesting refills as follows: Requested Prescriptions Pending Prescriptions Disp Refills FLUoxetine (PROZAC) 20 mg capsule 90 capsule 1 Sig: Take 1 capsule by mouth once daily. in the morning for mood Please review and advise. Nancy Watson LPN documented in this encounterRiverside [facility]01-31-2023 Miscellaneous Notes* Telephone Encounter - Dinah Urban RN - 09/05/2022 3:40 PM EST Pt set up with appointment with Vicenta Garcias. * Telephone Encounter - Hari Oneill DO - 09/01/2022 1:49 PM EST Please have them talk with our pharmacy team to see if able to get on patient assistance program orother alternative Hari Oneill DO * Telephone Encounter - Dinah Urban RN - 09/01/2022 10:32 AM EST Pts called in and reports that they can't afford the Xarelto. She states it's $47 for 30 days and $130 for 3 months. Please call and advise. documented in this encounterR[facility]01-24-2023 Instructions* Patient Instructions* Hari Oneill DO - 08/29/2022 12:26 PM EST Call insurance to see if they will cover the 20 mg XARELTO once a day instead of the Eliquis documented in this encounterR[facility]01-24-2023 History of Present illness Narrative* Hari Oneill DO - 08/29/2022 12:25 PM EST Had 2 in June, 2 in July and 1 seizure so far in Aug. Is going to follow up with Neurology Dr. Xie to see if needs to adjust seizure medications. Continues to have increased hunger, feels the need to eat all the time and if I don't eat then I get sick to my stomach and nauseated. Not able to CC: Eder Breen is a 67 year old male who presents to the office for follow up HPI: Epilepsy, states that he has had 2 seizures in June, 2 in July and 1 seizure so far inJ. Is going to follow up with Neurology Dr. Xie to see if needs to adjust seizure medications. Weight gain, hunger symptoms, Continues to have increased hunger, feels the need to eat all the time and if I don't eat then I get sick to my stomach and nauseated. Feels his symptoms are controlled when he eats. Admits that he hasn't been consistent with dairy free diet. Has seen Gastroenterology specialist in the past, last in May, knows needs to make a follow up visit as well. He is wondering if there is a medication to try to help with his symptoms of appetite being so high GERD, otherwise stable, no concerns. HPL, hasn't had recently rechecked Cholesterol, Total Date Value Ref Range Status 06/18/2021 163 <200 mg/dL Final Comment: <200 mg/dL, Desirable 200-239 mg/dL, Borderline high >239 mg/dL, High HDL Cholesterol Date Value Ref Range Status 06/18/2021 36 (L) >39 mg/dL Final Comment: 40-59 mg/dL, Acceptable >59 mg/dL, High: Negative risk factor for coronary heart disease <40 mg/dL, Low: Positive risk factor for coronary heart disease LDL Cholesterol Date Value Ref Range Status 06/18/2021 106 (H) <100 mg/dL Final Comment: <100 mg/dL, Optimal 100-129 mg/dL, Near optimal/above optimal 130-159 mg/dL, Borderline high 160-189 mg/dL, High >189 mg/dL, Very high Secondary prevention optimal LDL Cholesterol levels are recommended to be < 70 mg/dL Triglyceride Date Value Ref Range Status 06/18/2021 103 <150 mg/dL Final Comment: <150 mg/dL, Normal 150-199 mg/dL, Borderline high 200-499 mg/dL, High >499 mg/dL, Very high PAST MEDICAL HISTORY Diagnosis Date Abdominal pain, lower Acute gastritis without mention of hemorrhage Advance care planning 05/22/2022 Dylon to help with planning Arthritis Basal cell carcinoma DDD (degenerative disc disease), cervical Deep vein thrombophlebitis of leg (HCC) hx of Depression Diffuse large B cell lymphoma (HCC) 03/2012 duodenal Diverticulosis of colon (without mention of hemorrhage) Duodenitis without mention of hemorrhage GERD (gastroesophageal reflux disease) H. pylori infection 11/2013 Hemorrhoids History of DVT/PE 01/12/2013 - history of saddle PE in 2010 - IVC filter placed in 2011 possible in the setting of increased risk of falls while on coumadin - coumadin use complaicated by GI bleeding in the setting of supratherapeutic INR, warfarin stopped in 11/2012 - Repeat DVT involving common iliac/femoral and IVD distal tothe filter in 01/2013 while off coumadin, restarted on coumadin - Currently sub therapeutic on coumadin PLAN: -Increase coumadin to 7.5 mg daily - continue coumadin for life in the setting of PE Continue to bridge with lovenox as INR subtherapeutic. 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 sclerosis 07/2013 by echo WILBERTO (obstructive sleep apnea) Pulmonary embolism (HCC) hx of S/P insertion of IVC (inferior vena caval) filter thrombosed (S/P Lysis) Seizures (HCC) Snoring SUMMARY 01/12/2013 Mr Breen is a 58 y M with a medical history significant for: - Grade 3 Follicilar lymphoma, 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 Recent DVT in the common iliac, femoral and IVC distal to the IVD filter in 01/2013 while off coumadin. Currently on coumadin and no bleeding episodes/ falls Who is transferred from [facility] for the further evaluation of his dizziness which started about 3 -4 days ago and is now re Traumatic brain injury There is a questionabale history of around age of 3 year he was dropped on the driveway may have lost consciousness Traumatic brain injury There is a questionabale history of around age of 3 year he was dropped on the driveway may have lost consciousness Unspecified epilepsy without mention of intractable epilepsy Vitamin B12 deficiency 11/2013 Vitamin D deficiency normal level 11/2011 PAST SURGICAL HISTORY Procedure Laterality Date APPENDECTOMY HX COLONOSCOPY FLX DX W/COLLJ SPEC WHEN PFRMD 12/27/2009 Colonoscopy COLONOSCOPY FLX DX W/COLLJ SPEC WHEN PFRMD 05/03/2021 ESOPHAGOGASTRODUODENOSCOPY TRANSORAL DIAGNOSTIC 02/12/2012 EGD ESOPHAGOGASTRODUODENOSCOPY TRANSORAL DIAGNOSTIC 03/27/[address] [facility] inpt ESOPHAGOGASTRODUODENOSCOPY TRANSORAL DIAGNOSTIC 06/04/2012 EGD ESOPHAGOGASTRODUODENOSCOPY TRANSORAL DIAGNOSTIC N/A 11/13/2016 ESOPHAGOGASTRODUODENOSCOPY TRANSORAL DIAGNOSTIC 02/15/2018 EGD ESOPHAGOGASTRODUODENOSCOPY TRANSORAL DIAGNOSTIC 05/03/2021 INSJ TUNNELED CTR VAD W/SUBQ PORT AGE 3 YR/> 04/11/2012 INTRO. OF CATH SUP/INF VENA CAVA 04/09/2012 IVC FILTER PAST SURGICAL HISTORY OF ? right eye blind, injured during seizure Current Outpatient Medications Medication Sig blood sugar diagnostic (BLOOD GLUCOSE TEST) test strip Test blood sugar(s) 2 times daily. Dx: OtherDM Code E16.2 Insulin: No Lancets lancets Test blood sugar(s) 1 times daily. Dx: Other DM Code E16.2 Insulin: No warfarin (COUMADIN) 5 mg tablet As of 06/22/2022: Take 2.5 tablets (12.5mg) by mouth , Sunday, Sunday, Sunday. Recheck INR on Tuesday 06/26. zonisamide (ZONEGRAN) 100 mg capsule Take 3 capsules by mouth every morning AND 3 capsules every evening. lacosamide (VIMPAT) 200 mg Take 1 tablet by mouth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 at the recto-sigmoid colon and in the cecum, removed with a cold snare. Resected and retrieved. Clips (MR conditional) were placed. - The examination was otherwise normal on direct and retroflexion views. EGD 05/03/2021 Impression: - Normal examined jejunum. - Normal second portion of the duodenum. Biopsied. - Gastritis. Biospied - Normal lower third of esophagus. Biopsied. - Normal middle third of esophagus. Biopsied. Recommendation: repeat EGD in 5 years SURGICAL PATHOLOGY 05/03/2021 CONVERTED FINAL DIAGNOSIS 1. Duodenum, biopsy (A) - Small intestinal mucosa with no diagnostic alteration. - No morphologic evidence of celiac disease. 2. Antrum, biopsy (B) - Antral mucosa with no diagnostic alteration. - No morphologic evidence of Helicobacter pylori. 3. Distal esophagus, biopsy (C) - Squamous mucosa with no diagnostic alteration. - Negative for intraepithelial eosinophils. 4. Mid esophagus, biopsy (D) - Squamous mucosa with no diagnostic alteration. - Negative for intraepithelial eosinophils. 5. Cecum, polyp, biopsy (E) - Tubular adenoma. 6. Recto-sigmoid, polyp, biopsy (F) - Fragments of tubular adenoma. SR/kr 05/04/2021 NM HEPATOBILIARY 07/01/2021 IMPRESSION: 1. Nonvisualization of gallbladder after 2 hours, finding is nonspecific and can be related to chronic cholecystitis or biliary dyskinesia in the chronic setting. 2. Patent common bile duct US ABD RT UPPER QUADRANT 02/03/2021 IMPRESSION: Nonspecific coarse echotexture of the liver. Borderline distention of the gallbladder with gallstone. CT ABD/PEL 09/27/2020 IMPRESSION: 1. No evidence of diverticulitis 2. There is again noted be extensive mesenteric stranding at the base of the small bowel mesentery. Numerous subcentimeter lymph nodes again noted throughout the small bowel mesentery. 3. Numerous subcentimeter in several enlarged lymph nodes are noted in the para-aortic region. 4. Cholelithiasis LABS Component Latest Ref Rng & Units 10/20/2021 11/29/2021 11/29/2021 11/29/2021 11/29/2021 12/12/2021 12/13/2021 02/19/2022 2:40 PM 2:40 PM 2:40 PM 6:35 PM WBC 3.70 - 11.00 k/uL 6.89 RBC 4.20 - 6.00 m/uL 4.44 Hemoglobin 13.0 - 17.0 g/dL 12.9 (L) Hematocrit 39.0 - 51.0 % 42.4 MCV 80.0 - 100.0 fL 95.5 MCH 26.0 - 34.0 pg 29.1 MCHC 30.5 - 36.0 g/dL 30.4 (L) RDW-CV 11.5 - 15.0 % 14.6 Platelet Count 150 - 400 k/uL 183 MPV 9.0 - 12.7 fL 9.8 Neut% % 67.3 Abs Neut (ANC) 1.45 - 7.50 k/uL 4.64 Lymph% % 20.5 Abs Lymph 1.00 - 4.00 k/uL 1.41 Saline% % 7.3 Abs Saline <0.87 k/uL 0.50 Eosin% % 4.2 Abs Eosin <0.46 k/uL 0.29 Baso% % 0.4 Abs Baso <0.11 k/uL 0.03 Immature Gran % % 0.3 IMMATURE GRANS (ABS) <0.10 k/uL <0.03 NRBC /100 WBC 0.0 Absolute nRBC <0.01 k/uL <0.01 DTYPE Auto Protein, Total 6.3 - 8.0 g/dL 6.6 Albumin 3.9 - 4.9 g/dL 4.1 Calcium 8.5 - 10.2 mg/dL 8.8 Bilirubin, Total 0.2 - 1.3 mg/dL 0.2 Alkaline Phosphatase 38 - 113 U/L 117 (H) AST 14 - 40 U/L 22 ALT 10 - 54 U/L 23 Glucose 74 - 99 mg/dL 108 (H) BUN 9 - 24 mg/dL 18 Creatinine 0.73 - 1.22 mg/dL 1.06 Sodium 136 - 144 mmol/L 141 Potassium 3.7 - 5.1 mmol/L 4.0 Chloride 97 - 105 mmol/L 108 (H) CO2 22 - 30 mmol/L 23 Anion Gap 9 - 18 mmol/L 10 eGFR >=60 mL/min/1.73m 76 Total Weight, Feces g 6 Collection Period (FECFAT) h Random Fat Quant, Feces DNR Fat %, Feces <20 % fat 36 (H) Transglutaminase Ab, IgA <20 Units 1 Transglutaminase IgA Qualitative Negative, Test not Indicated Negative Interpretation (Celiac Screen) No serological evidence of celiac disease, however, if celiac disease is clinically suspected and patient is not on gluten- free diet, histological diagnosis may be considered. HLA testing may help with risk assessment. Transglutaminase Ab, IgG <20 Units 5 Negative Gliadin Ab, IgG <20 Units 4 Gliad Deamidated IgG Qual Negative, Test not Indicated Negative IgA 70 - 400 mg/dL <5 (L) Lactose, Fasting 74 - 99 mg/dL 131 (H) Lactose, 30 min See comment mg/dL 128 Lactose, 60 min See comment mg/dL 120 Lactose, 90 min See comment mg/dL 105 Lactose, 120 min See comment mg/dL 109 H. 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 pylori infection 11/2013 Hemorrhoids History of DVT/PE 01/12/2013 - history of saddle PE in 2010 - IVC filter placed in 2011 possible in the setting of increased risk of falls while on coumadin - coumadin use complaicated by GI bleeding in the setting of supratherapeutic INR, warfarin stopped in 11/2012 - Repeat DVT involving common iliac/femoral and IVD distal tothe filter in 01/2013 while off coumadin, restarted on coumadin - Currently sub therapeutic on coumadin PLAN: -Increase coumadin to 7.5 mg daily - continue coumadin for life in the setting of PE Continue to bridge with lovenox as INR subtherapeutic. 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 sclerosis 07/2013 by echo WILBERTO (obstructive sleep apnea) Pulmonary embolism (HCC) hx of S/P insertion of IVC (inferior vena caval) filter thrombosed (S/P Lysis) Seizures (HCC) Snoring SUMMARY 01/12/2013 Mr Breen is a 58 y M with a medical history significant for: - Grade 3 Follicilar lymphoma, 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 Recent DVT in the common iliac, femoral and IVC distal to the IVD filter in 01/2013 while off coumadin. Currently on coumadin and no bleeding episodes/ falls Who is transferred from [facility] for the further evaluation of his dizziness which started about 3 -4 days ago and is now re Traumatic brain injury (HCC) There is a questionabale history of around age of 3 year he was dropped on the driveway may have lost consciousness Traumatic brain injury (HCC) There is a questionabale history of around age of 3 year he was dropped on the driveway may have lost consciousness Unspecified epilepsy without mention of intractable epilepsy Vitamin B12 deficiency 11/2013 Vitamin D deficiency normal level 11/2011 PAST SURGICAL HISTORY Procedure Laterality Date APPENDECTOMY HX COLONOSCOPY FLX DX W/COLLJ SPEC WHEN PFRMD 12/27/2009 Colonoscopy COLONOSCOPY FLX DX W/COLLJ SPEC WHEN PFRMD 05/03/2021 ESOPHAGOGASTRODUODENOSCOPY TRANSORAL DIAGNOSTIC 02/12/2012 EGD ESOPHAGOGASTRODUODENOSCOPY TRANSORAL DIAGNOSTIC 03/27/2012 EGD [facility] inpt ESOPHAGOGASTRODUODENOSCOPY TRANSORAL DIAGNOSTIC 06/04/2012 EGD ESOPHAGOGASTRODUODENOSCOPY TRANSORAL DIAGNOSTIC N/A 11/13/2016 ESOPHAGOGASTRODUODENOSCOPY TRANSORAL DIAGNOSTIC 02/15/2018 EGD ESOPHAGOGASTRODUODENOSCOPY TRANSORAL DIAGNOSTIC 05/03/2021 INSJ TUNNELED CTR VAD W/SUBQ PORT AGE 3 YR/> 04/11/2012 INTRO. OF CATH SUP/INF VENA CAVA 04/09/2012 IVC FILTER PAST SURGICAL HISTORY OF ? right eye blind, injured during seizure FAMILY HISTORY Problem Relation Age of Onset Stroke Mother Cancer Mother patient states he came from an infection due to a back injury Social History Tobacco Use Smoking status: Never Smokeless tobacco: Never Vaping Use Vaping Use: Never used Substance Use Topics Alcohol use: No Drug use: No Current Outpatient Medications Medication Sig levothyroxine (LEVOXYL) 75 mcg tablet Take 1 tablet by mouth daily before breakfast. Take on empty stomach 30 minutes before eating. For Thyroid FLUoxetine (PROZAC) 20 mg capsule Take 1 capsule by mouth once daily. in the morning for mood lamoTRIgine (LAMICTAL) 25 mg tablet Take 2 tablets by mouth twice daily. Take with 200 mg tablets for total of 250 mg twice daily loperamide HCl (IMODIUM A-D) 2 mg tab Take 1 tablet by mouth as needed. furosemide (LASIX) 40 mg tablet Take 1 tablet by mouth once daily. lamoTRIgine (LAMICTAL) 200 mg tablet TAKE 1 TABLET TWICE DAILY warfarin (COUMADIN) 5 mg tablet TAKE 1 AND 1/2 TABLETS (7.5MG) ON TUES, THUR, SUN, SUN AND 1 TABLET(5MG) ALL OTHER DAYS OR DIRECTED pantoprazole DR (PROTONIX) 40 mg tablet Take 1 tablet by mouth daily before breakfast. For stomach symptoms, Take on empty stomach, 1/2 hr before meal. zonisamide (ZONEGRAN) 100 mg capsule Take 2 capsules by mouth every morning AND 3 capsules every evening. lacosamide (VIMPAT) 200 mg Take 1 tablet by mouth twice daily for 180 days. brivaracetam (BRIVIACT) 100 mg tablet Take 1 tablet by mouth twice daily for 180 days. ondansetron orally disintegrating (ZOFRAN ODT) 4 mg disintegrating tablet Take 1 tablet by mouth every 6 hours as needed for nausea/vomiting. finasteride (PROSCAR) 5 mg tablet TAKE 1 TABLET EVERY DAY clonazePAM orally disintegrating (KLONOPIN WAFER) 0.5 mg disintegrating tablet Take 1 tab for seizures lasting longer than 3 minute or more than 2 seizures in 8 hours. May repeat dose in 10 minutes if seizures continue. Do not exceed more than 2 tabs in 24 hours. traZODone (DESYREL) 50 mg tablet Take 1 tablet by mouth daily at bedtime. No current facility-administered medications for this visit. REVIEW OF SYSTEMS CONSTITUTIONAL: Negative for unintentional weight loss, malaise or fevers, +weight gain HEENT: Negative for frequent/significant headaches, changes in hearing/vision, nose bleeds or othernasal problems RESPIRATORY: Negative for cough, hemoptysis, wheezing or dyspnea CARDIOVASCULAR: Negative for chest pain, palpitations, syncope or lightheadedness GI: See HPI NEURO: Negative for encephalopathy, tremor or gait abnormality PSYCH: Negative for new changes in mood or affect I have confirmed and edited, if necessary, the PFSH obtained by others. PHYSICAL EXAM: BP 141/79 Pulse 73 Wt 122.7 kg (270 lb 9.6 oz) BMI 38.83 kg/m Gen: Comfortable in NAD Head: Normocephalic, atraumatic Skin: No jaundice, rashes or skin lesions Eyes: Sclera anicteric, conjunctiva pink Heart: RRR Lungs: CTAB Abd: Soft, non-distended, non-tender, bowel sounds present, no palpable masses or organomegaly Rectal Exam: Examination deferred by patient Neuro: Alert and oriented, no tremor or gross focal motor deficits Psych: Congruent mood and affect, appropriate insight and judgement ASSESSMENT/PLAN: Mr. Breen is a 66 year old male with a history of HTN, depression, GERD, HLD, seizures, and lymphoma presents for multiple Gi complaints.He admits to constantly feeling hungry, over eating, and intermittent diarrhea. He states this has been going on for about 1 year. He states that if he doesn't eat, he will get hunger pains. After he eats, he feels better and the discomfort goes away. He also never feels full. He has gained about 40 lbs in the last year. He denies any pain with food, nausea, vomiting, jaundice. He endorses intermittent diarrhea. He states he can have up to 5 loose to watery BMs. Will check stool studies for underlying infection. I recommend breath testing to r/o SIBO. I recommend consult to metabolic institute given his weight gain.He is agreeable with the above planand was encouraged to call with questions and concerns. 1. Diarrhea, unspecified type - ICD9: 787.91, ICD10: R19.7 (primary diagnosis) - CALPROTECTIN,FECAL - C. DIFFICILE PCR - CRYPTOSPORIDIUM AND GIARDIA ANTIGENS BY EIA - ENTERIC BACTERIAL PANEL BY PCR - PANC ELASTASE, FECAL - BREATH TEST GLUCOSE This note was dictated using [employer] speech recognition software and may contain some errors that were a result of the program not accurately transcribing what was dictated. Shanda Lainez APRN.CNP documented in this encounterR[facility]-20-[facility]22 Miscellaneous Notes* Telephone Encounter - Annetta Edwardsabraham De La Cruz LPN - 04/25/2022 10:32 AM EDT Patient has been identified by name and date of : Yes Patient phones for refill(s): Requested Prescriptions Pending Prescriptions Disp Refills levothyroxine (LEVOXYL) 75 mcg tablet 90 tablet 1 Sig: Take 1 tablet by mouth daily before breakfast. Take on empty stomach 30 minutes before eating.For Thyroid FLUoxetine (PROZAC) 20 mg capsule 90 capsule 1 Sig: Take 1 capsule by mouth once daily. in the morning for mood Date of last office visit in primary care: 02/17/22 next apt 05/22/22 Last 2 Encounter Wt Readings: Date: Wt: 02/17/2022 124.9 kg (275 lb 6.4 oz) 12/15/2021 129.8 kg (286 lb 3.2 oz) Previous labs/tests for medication: Thyroid: TSH Date Value 10/20/2021 1.260 mIU/L 06/18/2021 5.980 uU/mL Thank you. Annetta De La Cruz LPN documented in this encounterR[facility]07-26-2022 Miscellaneous Notes* Telephone Encounter - Dinah Urban RN - 02/28/2022 9:22 AM EDT Pt called in and was asking about Pts stool studies. She was told that the occult stool came back negative, and the rest were still pending. She voices understanding. Dinah Urban RN * Telephone Encounter - Sharon Ingram - 02/28/2022 9:20 AM EDTSummary: Consult Scheduled PT on 05/09/22 at 1:30 pm, for a consult to general surgery. * Telephone Encounter - Suyapa Lira APRN.CNP - 02/27/2022 6:12 PM EDT Referral placed. Suyapa Lira APRN.CNP * Telephone Encounter - Danitza Clark LPN - 02/27/2022 2:07 PM EDT patient needing a referral for GI doctor. Patient's stated that he is still having diarrhea, eats every 2 hours, dizzy,has gained 60 lbs in 4.5 months this has been going on since december. Patient wants to stay within the clinic. Please review and advise. Danitza Clark LPN documented in this encounterR[facility]07-21-2022 Miscellaneous Notes* Telephone Encounter - Le Carreno APRN.CNP - 02/23/2022 2:22 PM EDT The following approved medication requests have been transmitted electronically. Signed Prescriptions Disp Refills lamoTRIgine (LAMICTAL) 25 mg tablet 360 tablet 1 Sig: Take 2 tablets by mouth twice daily. Take with 200 mg tablets for total of 250 mg twice daily DESMOND: No Authorizing Provider: LE CARRENO APRN.CNP documented in this encounterR[facility]07-15-2022 Instructions* Patient Instructions* Suyapa Lira APRN.CNP - 02/17/2022 12:51 PM EDT Get plenty of fluids. A minimum of 60-80oz per day. Drink a couple [place] drinks daily to helpwith getting your electrolytes. Use the imodium. Take 2 tablets initially. Then take 1 additional tablet after every episode of diarrhea. Up to 8 tablets in a day. documented in this encounterRiverside [facility]07-15-2022 History of Present illness Narrative* Suyapa Lira APRN.CNP - 02/17/2022 12:49 PM EDT Chief Complaint Patient presents with: Diarrhea: x 2 weeks HPI Eder Breen is a 66 year old male who presents here today for Above Complaints.. Today: Hx chronic diarrhea. Started with this episode of diarrhea 2 weeks ago. Has gotten worse. Is like plain water. Brown butwatery. No blood. Has tried imodium. This seemed to work a little bit, but isn't anymore. Didn't take the prescribed/recommended dose; felt like this was too much to take. + nausea, no vomiting. Appetite fair. Moderate fluid intake. Past medical history, appointments, medications, allergies reviewed. 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 pylori infection 11/2013 Hemorrhoids History of DVT/PE 01/12/2013 - history of saddle PE in 2010 - IVC filter placed in 2011 possible in the setting of increased risk of falls while on coumadin - coumadin use complaicated by GI bleeding in the setting of supratherapeutic INR, warfarin stopped in 11/2012 - Repeat DVT involving common iliac/femoral and IVD distal tothe filter in 01/2013 while off coumadin, restarted on coumadin - Currently sub therapeutic on coumadin PLAN: -Increase coumadin to 7.5 mg daily - continue coumadin for life in the setting of PE Continue to bridge with lovenox as INR subtherapeutic. 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 sclerosis 07/2013 by echo WILBERTO (obstructive sleep apnea) Pulmonary embolism (HCC) hx of S/P insertion of IVC (inferior vena caval) filter thrombosed (S/P Lysis) Seizures (HCC) Snoring SUMMARY 01/12/2013 Mr Breen is a 58 y M with a medical history significant for: - Grade 3 Follicilar lymphoma, 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 Recent DVT in the common iliac, femoral and IVC distal to the IVD filter in 01/2013 while off coumadin. Currently on coumadin and no bleeding episodes/ falls Who is transferred from [facility] for the further evaluation of his dizziness which started about 3 -4 days ago and is now re Traumatic brain injury (HCC) There is a questionabale history of around age of 3 year he was dropped on the driveway may have lost consciousness Traumatic brain injury (HCC) There is a questionabale history of around age of 3 year he was dropped on the driveway may have lost consciousness Unspecified epilepsy without mention of intractable epilepsy Vitamin B12 deficiency 11/2013 Vitamin D deficiency normal level 11/2011 Previous Surgical History PAST SURGICAL HISTORY Procedure Laterality Date APPENDECTOMY HX COLONOSCOPY FLX DX W/COLLJ SPEC WHEN PFRMD 12/27/2009 Colonoscopy COLONOSCOPY FLX DX W/COLLJ SPEC WHEN PFRMD 05/03/2021 ESOPHAGOGASTRODUODENOSCOPY TRANSORAL DIAGNOSTIC 02/12/2012 EGD ESOPHAGOGASTRODUODENOSCOPY TRANSORAL DIAGNOSTIC 03/27/[address] [facility] inpt ESOPHAGOGASTRODUODENOSCOPY TRANSORAL DIAGNOSTIC 06/04/2012 EGD ESOPHAGOGASTRODUODENOSCOPY TRANSORAL DIAGNOSTIC N/A 11/13/2016 ESOPHAGOGASTRODUODENOSCOPY TRANSORAL DIAGNOSTIC 02/15/2018 EGD ESOPHAGOGASTRODUODENOSCOPY TRANSORAL DIAGNOSTIC 05/03/2021 INSJ TUNNELED CTR VAD W/SUBQ PORT AGE 3 YR/> 04/11/2012 INTRO. OF CATH SUP/INF VENA CAVA 04/09/2012 IVC FILTER PAST SURGICAL HISTORY OF ? right eye blind, injured during seizure Family History FAMILY HISTORY Problem Relation Age of Onset Stroke Mother Cancer Mother patient states he came from an infection due to a back injury Patient Allergies ALLERGIES Allergen Reactions Doxycycline GI Upset Current Medications Current Outpatient Medications on File Prior to Visit Medication Sig loperamide HCl (IMODIUM A-D) 2 mg tab Take 1 tablet by mouth as needed. furosemide (LASIX) 40 mg tablet Take 1 tablet by mouth once daily. lamoTRIgine (LAMICTAL) 200 mg tablet TAKE 1 TABLET TWICE DAILY warfarin (COUMADIN) 5 mg tablet TAKE 1 AND 1/2 TABLETS (7.5MG) ON TU, THUR, SUN, SUN AND 1 TABLET(5MG) ALL OTHER DAYS OR DIRECTED lamoTRIgine (LAMICTAL) 25 mg tablet TAKE 2 TABLETS TWICE DAILY. TAKE IN ADDITION TO 200MG TABLETS FOR TOTAL DOSE OF 250MG TWICE DAILY. pantoprazole DR (PROTONIX) 40 mg tablet Take 1 tablet by mouth daily before breakfast. For stomach symptoms, Take on empty stomach, 1/2 hr before meal. zonisamide (ZONEGRAN) 100 mg capsule Take 2 capsules by mouth every morning AND 3 capsules every evening. levothyroxine (LEVOXYL) 75 mcg tablet Take 1 tablet by mouth daily before breakfast. Take on empty stomach 30 minutes before eating. For Thyroid FLUoxetine (PROZAC) 20 mg capsule Take 1 capsule by mouth once daily. in the morning for mood lacosamide (VIMPAT) 200 mg Take 1 tablet by mouth twice daily for 180 days. brivaracetam (BRIVIACT) 100 mg tablet Take 1 tablet by mouth twice daily for 180 days. ondansetron orally disintegrating (ZOFRAN ODT) 4 mg disintegrating tablet Take 1 tablet by mouth every 6 hours as needed for nausea/vomiting. finasteride (PROSCAR) 5 mg tablet TAKE 1 TABLET EVERY DAY clonazePAM orally disintegrating (KLONOPIN WAFER) 0.5 mg disintegrating tablet Take 1 tab for seizures lasting longer than 3 minute or more than 2 seizures in 8 hours. May repeat dose in 10 minutes if seizures continue. Do not exceed more than 2 tabs in 24 hours. traZODone (DESYREL) 50 mg tablet Take 1 tablet by mouth daily at bedtime. lamoTRIgine (LAMICTAL) 25 mg tablet Take 2 tablets (50mg) at bedtime for 7 days. Then take 2 tablets (50mg) twice daily and continue. Take in addition to 200mg tablets. No current facility-administered medications on file prior to visit. Social History Social History Tobacco Use Smoking status: Never Smoker Smokeless tobacco: Never Used Vaping Use Vaping Use: Never used Substance Use Topics Alcohol use: No Drug use: No Review of Symptoms REVIEW OF SYSTEMS see HPI, otherwise negative EXAM: BP 140/78 (BP Site: Left Arm, BP Position: Sitting, BP Cuff Size: Regular Adult) Pulse 76 Wt 124.9 kg (275 lb 6.4 oz) SpO2 97% BMI 39.52 kg/m General Appearance: Well appearing, alert, in no acute distress, well-hydrated, well nourished. andObese. Lungs: Lungs clear to auscultation. No wheezing, rhonchi, rales.. Heart: RRR without murmur, gallop, or rubs. No ectopy. Abdomen: Abdomen large. Normal abdominal exam, Abdomen soft, non-tender. Bowel sounds normal. No masses, organomegaly. Psychiatric: cooperative, confrontational Health Maintenance List PNEUMOCOCCAL: 65+(1 - PCV) Never done SHINGRIX VACCINE(1 of 2) Never done COVID-19 VACCINE(3 - Moderna risk series) due on 02/02/2021 ADVANCE DIRECTIVE DISCUSSION Never done INFLUENZA(1) due on 04/06/2022 BP CONTROLLED (<130/80) due on 06/17/2022 ANNUAL PCP TEAM CHRONIC DISEASE VISIT due on 02/17/2023 DIABETES SCREEN due on 10/20/2024 COLORECTAL CANCER SCREENING due on 05/03/2026 LIPID SCREEN due on 06/18/2026 PROSTATE CANCER SCREENING DISCUSSION due on 10/20/2026 DTAP,TDAP,TD(3 - Td or Tdap) due on 12/09/2031 HEPATITIS C SCREENING Completed Data reviewed Previous records, office notes ASSESSMENT/PLAN: 1. Diarrhea, unspecified type - ICD9: 787.91, ICD10: R19.7 Stool testing. To take ibuprofen as prescribed/recommended. BRAT diet. Push fluids, intake. Recommend electrolyte supplementation such as Body [place]. - OVA + PARA MICROSCOPIC - ENTERIC BACTERIAL PANEL BY PCR - C. DIFFICILE PCR - FECAL OCCULT BLOOD TEST Suyapa Lira APRN.PRODUCTION EXPERT Greater than 50% of 35-minute visit spent face to face with patient in counseling and education. documented in this encounterR[facility]-2022 Miscellaneous Notes* Telephone Encounter - Suyapa Lira APRN.CNP - 02/13/2022 5:00 PM EDT Please clarify this message. Suyapa Lira APRN.CNP * Telephone Encounter - Sobeida Nair LPN - 02/08/2022 11:13 AM EDT Yanick from [facility] calling asking to clarify the directions and larger amount for mail away rx for the Lopermide rx 30 tablet rx had been sent in. Pending rx to complete. Please advise documented in this encounterR[facility]2022 Miscellaneous Notes* Telephone Encounter - Annetta De La Cruz LPN - 02/01/2022 9:17 AM EDT Spoke with pt and he will check with pharmacy. Annetta De La Cruz LPN * Telephone Encounter - Annetta De La Cruz LPN - 01/30/2022 2:15 PM EDT Left a message for pt to call the office and ask to speak to a nurse. Annetta De La Cruz LPN * Telephone Encounter - Ericka Flores APRN.CNP - 01/30/2022 2:01 PM EDT Refilled three days ago. Does she need it to go somewhere else? Ericka Flores APRN.CNP * Telephone Encounter - Karlee De La Cruz Pss - 01/30/2022 1:33 PM EDT Patient has been identified by name and date of : Yes Pending Prescriptions Disp Refills LOPERAMIDE 2 MG TABLET 90 tablet 2 Sig: Take 1 tablet by mouth as needed. DESMOND: No KRISTEN-12/15/21 Labs-12/13/21 NOV-none med filled 01/27/22 RX INSTRUCTIONS: Patient aware RX will be sent to pharmacy. No need to notify patient. Karlee De La Cruz Pss documented in this encounterR[facility]06-24-2022 Miscellaneous Notes* Telephone Encounter - Travis Renee LPN - 01/27/2022 2:44 PM EDT KRITSEN 12/15/21 NOV no upcoming appt * Telephone Encounter - Niurka Doherty Pss - 01/27/2022 2:43 PM EDT Pharmacy verified in Epic Patient has been identified by name and date of : Yes Patient aware RX will be sent to pharmacy. No need to notify patient. Patient phones for refill(s): Pending Prescriptions Disp Refills LOPERAMIDE 2 MG TABLET 30 tablet 0 Sig: Take 1 tablet by mouth as needed. DESMOND: No Date of last office visit : 12/15/2021 Date of next office visit : Visit date not found Last 2 Encounter Wt Readings: Date: Wt: 12/15/2021 129.8 kg (286 lb 3.2 oz) 12/13/2021 129.9 kg (286 lb 6.4 oz) Please advise. Niurka Doherty Pss documented in this encounterRivers[facility]06-09-2022 Miscellaneous Notes* Telephone Encounter - Selena Atkinson PA-C - 01/12/2022 9:13 AM EDT The following approved medication requests have been transmitted electronically. Signed Prescriptions Disp Refills lamoTRIgine (LAMICTAL) 200 mg tablet 180 tablet 3 Sig: TAKE 1 TABLET TWICE DAILY DESMOND: No Authorizing Provider: SELENA ATKINSON PA-C documented in this encounterRiverside [facility] Hospital06-01-2022 Miscellaneous Notes* Telephone Encounter - Loree Mccollum LPN - 01/04/2022 9:11 AM EDT Patient phones requesting refills as follows: Pending Prescriptions Disp Refills WARFARIN 5 MG TABLET 117 tablet Sig: TAKE 1 AND 1/2 TABLETS (7.5MG) ON TUES, THUR, SAT, SUN AND 1 TABLET (5MG) ALL OTHER DAYS OR ASDIRECTED DESMOND: No KRISTEN-12/15/21 Labs-12/13/21 NOV-none Please review and advise. Loree Mccollum LPN documented in this encounterRiverside [facility]05-12-2022 History of Present illness Narrative* Dai Beach APRN.PRODUCTION EXPERT - 12/15/2021 10:40 AM EDT Chief Complaint Patient presents with: Suture Removal: lft foot send toe on the bottom HPI Eder Breen is a 66 year old male who presents here today for Above Complaints. Eder is an established patient of Dr. Oneill, and myself. Concerns today.. Suture removal: Seen at [facility] ED on 12/08/21 d/t L great toe injury from slipping in bathtub. X-ray of L foot: negative, no abnormalities. 3 sutures to wound. Bacitracin dressing applied. Today.. Wound recheck and suture removal. Has been keeping area clean and dry. No signs or concerns for infection per pt. No complaints just needs sutures removed. Able to ambulate and bare weight on foot without difficulties. Wearing compression stocking daily. No other concerns or complaints at this visit. Past medical history, appointments, medications, allergies reviewed. 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 pylori infection 11/2013 Hemorrhoids History of DVT/PE 01/12/2013 - history of saddle PE in 2010 - IVC filter placed in 2011 possible in the setting of increased risk of falls while on coumadin - coumadin use complaicated by GI bleeding in the setting of supratherapeutic INR, warfarin stopped in 11/2012 - Repeat DVT involving common iliac/femoral and IVD distal tothe filter in 01/2013 while off coumadin, restarted on coumadin - Currently sub therapeutic on coumadin PLAN: -Increase coumadin to 7.5 mg daily - continue coumadin for life in the setting of PE Continue to bridge with lovenox as INR subtherapeutic. 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 sclerosis 07/2013 by echo WILBERTO (obstructive sleep apnea) Pulmonary embolism (HCC) hx of S/P insertion of IVC (inferior vena caval) filter thrombosed (S/P Lysis) Seizures (HCC) Snoring SUMMARY 01/12/2013 Mr Breen is a 58 y M with a medical history significant for: - Grade 3 Follicilar lymphoma, 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 Recent DVT in the common iliac, femoral and IVC distal to the IVD filter in 01/2013 while off coumadin. Currently on coumadin and no bleeding episodes/ falls Who is transferred from [facility] for the further evaluation of his dizziness which started about 3 -4 days ago and is now re Traumatic brain injury (HCC) There is a questionabale history of around age of 3 year he was dropped on the driveway may have lost consciousness Traumatic brain injury (HCC) There is a questionabale history of around age of 3 year he was dropped on the driveway may have lost consciousness Unspecified epilepsy without mention of intractable epilepsy Vitamin B12 deficiency 11/2013 Vitamin D deficiency normal level 11/2011 Previous Surgical History PAST SURGICAL HISTORY Procedure Laterality Date APPENDECTOMY HX COLONOSCOPY FLX DX W/COLLJ SPEC WHEN PFRMD 12/27/2009 Colonoscopy COLONOSCOPY FLX DX W/COLLJ SPEC WHEN PFRMD 05/03/2021 ESOPHAGOGASTRODUODENOSCOPY TRANSORAL DIAGNOSTIC 02/12/2012 EGD ESOPHAGOGASTRODUODENOSCOPY TRANSORAL DIAGNOSTIC 03/27/[address] [facility] inpt ESOPHAGOGASTRODUODENOSCOPY TRANSORAL DIAGNOSTIC 06/04/2012 EGD ESOPHAGOGASTRODUODENOSCOPY TRANSORAL DIAGNOSTIC N/A 11/13/2016 ESOPHAGOGASTRODUODENOSCOPY TRANSORAL DIAGNOSTIC 02/15/2018 EGD ESOPHAGOGASTRODUODENOSCOPY TRANSORAL DIAGNOSTIC 05/03/2021 INSJ TUNNELED CTR VAD W/SUBQ PORT AGE 5 YR/> 04/11/2012 INTRO. OF CATH SUP/INF VENA CAVA 04/09/2012 IVC FILTER PAST SURGICAL HISTORY OF ? right eye blind, injured during seizure Family History FAMILY HISTORY Problem Relation Age of Onset Stroke Mother Cancer Mother patient states he came from an infection due to a back injury Patient Allergies ALLERGIES Allergen Reactions Doxycycline GI Upset Current Medications Current Outpatient Medications on File Prior to Visit Medication Sig pantoprazole DR (PROTONIX) 40 mg tablet Take 1 tablet by mouth daily before breakfast. For stomach symptoms, Take on empty stomach, 1/2 hr before meal. zonisamide (ZONEGRAN) 100 mg capsule Take 2 capsules by mouth every morning AND 3 capsules every evening. loperamide HCl (IMODIUM A-D) 2 mg tab Take 1 tablet by mouth as needed. warfarin (COUMADIN) 5 mg tablet Take 7.5 mg T/Th/Sat/Sun, 5 mg all other days or as directed levothyroxine (LEVOXYL) 75 mcg tablet Take 1 tablet by mouth daily before breakfast. Take on empty stomach 30 minutes before eating. For Thyroid lamoTRIgine (LAMICTAL) 25 mg tablet TAKE 2 TABLETS TWICE DAILY. TAKE IN ADDITION TO 200MG TABLETS FOR TOTAL DOSE OF 250MG TWICE DAILY. FLUoxetine (PROZAC) 20 mg capsule Take 1 capsule by mouth once daily. in the morning for mood lacosamide (VIMPAT) 200 mg Take 1 tablet by mouth twice daily for 180 days. furosemide (LASIX) 40 mg tablet Take 1 tablet by mouth once daily. brivaracetam (BRIVIACT) 100 mg tablet Take 1 tablet by mouth twice daily for 180 days. ondansetron orally disintegrating (ZOFRAN ODT) 4 mg disintegrating tablet Take 1 tablet by mouth every 6 hours as needed for nausea/vomiting. finasteride (PROSCAR) 5 mg tablet TAKE 1 TABLET EVERY DAY clonazePAM orally disintegrating (KLONOPIN WAFER) 0.5 mg disintegrating tablet Take 1 tab for seizures lasting longer than 3 minute or more than 2 seizures in 8 hours. May repeat dose in 10 minutes if seizures continue. Do not exceed more than 2 tabs in 24 hours. lamoTRIgine (LAMICTAL) 200 mg tablet TAKE 1 TABLET TWICE DAILY traZODone (DESYREL) 50 mg tablet Take 1 tablet by mouth daily at bedtime. lamoTRIgine (LAMICTAL) 25 mg tablet Take 2 tablets (50mg) at bedtime for 7 days. Then take 2 tablets (50mg) twice daily and continue. Take in addition to 200mg tablets. No current facility-administered medications on file prior to visit. Social History Social History Tobacco Use Smoking status: Never Smoker Smokeless tobacco: Never Used Vaping Use Vaping Use: Never used Substance Use Topics Alcohol use: No Drug use: No REVIEW OF SYSTEMS: as above Reviewed relevant PMHx, PSHx, Social Hx, current medications and allergies. Review of Symptoms See HPI. All other systems are negative. EXAM: BP 120/64 (BP Site: Left Arm, BP Position: Sitting, BP Cuff Size: Large Adult) Pulse 60 Resp 18 Wt 129.8 kg (286 lb 3.2 oz) BMI 41.07 kg/m General Appearance: Well appearing, alert, in no acute distress, well-hydrated, well nourished.. Skin: Skin color, texture, turgor normal, no suspicious rashes or lesions. Lungs: Lungs clear to auscultation. No wheezing, rhonchi, rales.. Heart: RRR without murmur, gallop, or rubs. No ectopy. Extremities: No deformities, edema, skin discoloration, clubbing or cyanosis. Good capillary refill. , Positive findings: 3 sutures to big toe on L foot. Laceration well approximated. No signs of infection. Musculoskeletal: No joint swelling, deformity, or tenderness. Peripheral Pulses: Normal. Neurologic: Gait normal. Reflexes normal and symmetric. Sensation grossly intact. Health Maintenance List SHINGRIX VACCINE(1 of 2) Never done PNEUMOVAX AGE 65 AND OVER WITH 5YR LOOKBACK(1) Never done COVID-19 VACCINE(3 - Moderna risk series) due on 02/02/2021 ADVANCE DIRECTIVE DISCUSSION Never done DTAP,TDAP,TD(2 - Tdap) due on 10/20/2022 INFLUENZA(Season Ended) due on 04/06/2022 BP CONTROLLED (<130/80) due on 06/17/2022 ANNUAL PCP TEAM CHRONIC DISEASE VISIT due on 11/21/2022 DIABETES SCREEN due on 10/20/2024 COLORECTAL CANCER SCREENING due on 05/03/2026 LIPID SCREEN due on 06/18/2026 PROSTATE CANCER SCREENING DISCUSSION due on 10/20/2026 HEPATITIS C SCREENING Completed MENINGOCOCCAL CONJUGATE Aged Out ASSESSMENT/PLAN: 1. Visit for suture removal - ICD9: V58.32, ICD10: Z48.02 (primary diagnosis) 3 sutures removed to great toe of L foot without any difficulties. Wound well approximated. No signs or concerns for infection. Tolerated removal well. Keep area clean and dry. No ambulation restrictions. 2. Visit for wound check - ICD9: V58.89, ICD10: Z51.89 See above. RTO as needed. Prescription instructions reviewed with patient as applicable. Potential red flag symptoms discussed with the patient. Reviewed appropriate action plan to take if red flag symptoms occur. Patient agreeable to treatment plan. Dai Beach APRN.PRODUCTION EXPERT [id number] [facility] [place] [address] documented in this encounterRiverside [facility]05-11-2022 Miscellaneous Notes* Telephone Encounter - Selena Berg LPN - 12/14/2021 1:57 PM EDT Pt. informed. Selena Berg LPN * Telephone Encounter - Hari Oneill DO - 12/14/2021 12:29 PM EDT Please inform patient that his lactose tolerance testing is ABNORMAL. He is LACTOSE INTOLERANT. He should be avoiding all forms of dairy- milk, cheese, ice cream, cream cheese, sour cream, butter etc. He can use olive oil based butters, almond or oat milk or other dairy free milks instead. Hari Oneill DO documented in this encounterRiverside [facility] Hospital05-10-2022 Instructions* Patient Instructions* Tereza Salvador APRN.SAMIR - 12/13/2021 11:31 AM EDT - Start OTC probiotic with at least 15 billion live cultures, 10+ strains - Drink around 64 oz water daily - Benefiber daily: 2 teaspoons added to 8 ounces of water up to 3 times daily. Stop milk product for now to see - try and reduce tea intake Start pantoprazole 40mg once daily on empty stomach and wait 30 min Avoid NSAIDs (such as Advil, Ibuprofen, Excedrin, Mobic), tobacco, alcohol, carbonated beverages, caffeine, chocolate, tomato based sauces, spicy/fatty foods, and peppermint Avoid eating large meals. Avoid eating less than 3 hours before bed. Weight loss. Elevate the head of the bed 6 inches, or at least invest in a wedge pillow. documented in this encounterRiverside [facility] Hospital05-10-2022 History of Present illness Narrative* Tereza Salvador APRN.CNP - 12/13/2021 10:30 AM EDT CHIEF COMPLAINT: Patient presents with: GI symptoms This consult was requested by Hari Oneill DO for an opinion regarding multiple GI concerns.My final recommendations will be communicated to the requesting health care provider by way of the shared medical record for internal providers or letter via the [facility] for external providers. Eder Breen is a 66 year old male who presents for multiple GI concerns The patient was seen by on 05/03/2021 for upper endoscopy and colonoscopy. The procedureswere performed with Midazolam 5 mg IV, Fentanyl 100 micrograms IV sedation. The procedure report has been reviewed and findings as follows: Impression: - Normal examined jejunum. - Normal second portion of the duodenum. Biopsied. - Gastritis. Biopsied. - Normal lower third of esophagus. Biopsied. - Normal middle third of esophagus. Biopsied. Impression: - Two medium polyps at the recto-sigmoid colon and in the cecum, removed with a cold snare. Resected and retrieved. Clips (MR conditional) were placed. - The examination was otherwise normal on direct and retroflexion views. FINAL DIAGNOSIS 1. Duodenum, biopsy (A) - Small intestinal mucosa with no diagnostic alteration. - No morphologic evidence of celiac disease. 2. Antrum, biopsy (B) - Antral mucosa with no diagnostic alteration. - No morphologic evidence of Helicobacter pylori. 3. Distal esophagus, biopsy (C) - Squamous mucosa with no diagnostic alteration. - Negative for intraepithelial eosinophils. 4. Mid esophagus, biopsy (D) - Squamous mucosa with no diagnostic alteration. - Negative for intraepithelial eosinophils. 5. Cecum, polyp, biopsy (E) - Tubular adenoma. 6. Recto-sigmoid, polyp, biopsy (F) - Fragments of tubular adenoma. HPI: Patient has been seen GI in the past for the same symptoms of diarrhea and weight loss. Patient reports every 2 hours will feel like he needs to eat Difficulty swallowing / foods sticking in throat: Yes - when he eats he can't get the food down - and needs to swallow liquid to help get the food down - Heartburn: Yes after he eats has heartburn - will take pepto and this will help- he reports he is out of the pantoprazole Chronic cough:no Regurgitation: no Chest pain: no Filling up quickly at meals: it depends on what he is eating Loss of appetite: no - reports he is eating every 2 hours Nausea: no Vomiting: no Abdominal pain: lower stomach that comes and goes Recent change in bowel movements: diarrhea and reports this comes and goes - taking imodium reportswhen he has a diarrhea and then this will make his stool more formed - patient reports urgency withdiarrhea at times accidents - Bloody or black, bowel movements: - no Constipation: no Diarrhea: yes Loss of control of bowel movements: urgency [facility] - [facility] ? Record Review: [facility] / Outside records reviewed. 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 pylori infection 11/2013 Hemorrhoids History of DVT/PE 01/12/2013 - history of saddle PE in 2010 - IVC filter placed in 2011 possible in the setting of increased risk of falls while on coumadin - coumadin use complaicated by GI bleeding in the setting of supratherapeutic INR, warfarin stopped in 11/2012 - Repeat DVT involving common iliac/femoral and IVD distal tothe filter in 01/2013 while off coumadin, restarted on coumadin - Currently sub therapeutic on coumadin PLAN: -Increase coumadin to 7.5 mg daily - continue coumadin for life in the setting of PE Continue to bridge with lovenox as INR subtherapeutic. 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 sclerosis 07/2013 by echo WILBERTO (obstructive sleep apnea) Pulmonary embolism (HCC) hx of S/P insertion of IVC (inferior vena caval) filter thrombosed (S/P Lysis) Seizures (HCC) Snoring SUMMARY 01/12/2013 Mr Breen is a 58 y M with a medical history significant for: - Grade 3 Follicilar lymphoma, 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 Recent DVT in the common iliac, femoral and IVC distal to the IVD filter in 01/2013 while off coumadin. Currently on coumadin and no bleeding episodes/ falls Who is transferred from [facility] for the further evaluation of his dizziness which started about 3 -4 days ago and is now re Traumatic brain injury (HCC) There is a questionabale history of around age of 3 year he was dropped on the driveway may have lost consciousness Traumatic brain injury (HCC) There is a questionabale history of around age of 3 year he was dropped on the driveway may have lost consciousness Unspecified epilepsy without mention of intractable epilepsy Vitamin B12 deficiency 11/2013 Vitamin D deficiency normal level 11/2011 PAST SURGICAL HISTORY Procedure Laterality Date APPENDECTOMY HX COLONOSCOPY FLX DX W/COLLJ SPEC WHEN PFRMD 12/27/2009 Colonoscopy COLONOSCOPY FLX DX W/COLLJ SPEC WHEN PFRMD 05/03/2021 ESOPHAGOGASTRODUODENOSCOPY TRANSORAL DIAGNOSTIC 02/12/2012 EGD ESOPHAGOGASTRODUODENOSCOPY TRANSORAL DIAGNOSTIC 03/27/[address] [facility] inpt ESOPHAGOGASTRODUODENOSCOPY TRANSORAL DIAGNOSTIC 06/04/2012 EGD ESOPHAGOGASTRODUODENOSCOPY TRANSORAL DIAGNOSTIC N/A 11/13/2016 ESOPHAGOGASTRODUODENOSCOPY TRANSORAL DIAGNOSTIC 02/15/2018 EGD ESOPHAGOGASTRODUODENOSCOPY TRANSORAL DIAGNOSTIC 05/03/2021 INSJ TUNNELED CTR VAD W/SUBQ PORT AGE 3 YR/> 04/11/2012 INTRO. 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 right eye blind, injured during seizure Allergies: ALLERGIES Allergen Reactions Doxycycline GI Upset Medications: pantoprazole DR (PROTONIX) 40 mg tablet Take 1 tablet by mouth daily before breakfast. For stomach symptoms, Take on empty stomach, 1/2 hr before meal. zonisamide (ZONEGRAN) 100 mg capsule Take 2 capsules by mouth every morning AND 3 capsules every evening. loperamide HCl (IMODIUM A-D) 2 mg tab Take 1 tablet by mouth as needed. warfarin (COUMADIN) 5 mg tablet Take 7.5 mg T//Sun/Sun, 5 mg all other days or as directed levothyroxine (LEVOXYL) 75 mcg tablet Take 1 tablet by mouth daily before breakfast. Take on empty stomach 30 minutes before eating. For Thyroid FLUoxetine (PROZAC) 20 mg capsule Take 1 capsule by mouth once daily. in the morning for mood lacosamide (VIMPAT) 200 mg Take 1 tablet by mouth twice daily for 180 days. furosemide (LASIX) 40 mg tablet Take 1 tablet by mouth once daily. brivaracetam (BRIVIACT) 100 mg tablet Take 1 tablet by mouth twice daily for 180 days. ondansetron orally disintegrating (ZOFRAN ODT) 4 mg disintegrating tablet Take 1 tablet by mouth every 6 hours as needed for nausea/vomiting. finasteride (PROSCAR) 5 mg tablet TAKE 1 TABLET EVERY DAY lamoTRIgine (LAMICTAL) 200 mg tablet TAKE 1 TABLET TWICE DAILY traZODone (DESYREL) 50 mg tablet Take 1 tablet by mouth daily at bedtime. lamoTRIgine (LAMICTAL) 25 mg tablet Take 2 tablets (50mg) at bedtime for 7 days. Then take 2 tablets (50mg) twice daily and continue. Take in addition to 200mg tablets. lamoTRIgine (LAMICTAL) 25 mg tablet TAKE 2 TABLETS TWICE DAILY. TAKE IN ADDITION TO 200MG TABLETS FOR TOTAL DOSE OF 250MG TWICE DAILY. clonazePAM orally disintegrating (KLONOPIN WAFER) 0.5 mg disintegrating tablet Take 1 tab for seizures lasting longer than 3 minute or more than 2 seizures in 8 hours. May repeat dose in 10 minutes if seizures continue. Do not exceed more than 2 tabs in 24 hours. FAMILY HISTORY Problem Relation Age of Onset Stroke Mother Cancer Mother patient states he came from an infection due to a back injury Employer And Job Title: No employer specified (unemployed) Years Of Education Completed: 12 years Marital Status: to Atiya Mohamud with 1 child Social History Tobacco Use Smoking status: Never Smoker Smokeless tobacco: Never Used Vaping Use Vaping Use: Never used Substance Use Topics Alcohol use: No Drug use: No Review of Systems: Review of Systems Constitutional: Positive for activity change, appetite change, fatigue and unexpected weight change. Respiratory: Positive for choking and shortness of breath. Cardiovascular: Positive for leg swelling. Gastrointestinal: Positive for abdominal distention, abdominal pain, diarrhea and nausea. Change in bowel habits, Gas, Heartburn All other systems reviewed and are negative. Are you taking any blood thinners? Yes Coumadin Physical Examination: BP 132/64 Pulse 81 Resp 16 Ht 5' 10 (1.78m) Wt 286 lb 6.4 oz (129.9kg) SpO2 96% BMI 41.09 kg/(m^2). Last 7 Encounter Wt Readings: Date: Wt: 12/13/2021 129.9 kg (286 lb 6.4 oz) 11/21/2021 133.4 kg (294 lb) 11/09/2021 130.6 kg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 that the onset patterns could be explained by a posterior parietal onset but could not be proven by SEEG). No resection was performed after his SEEG in 2013. His seizure semiology recorded during an SEEG evaluation in 2014 consisted of two types: 1) epileptic arousal, stereotypic movements of his upper extremities, right arm dystonia, brief oral automatism and left arm rhythmic circling (this seizure type was associated with ictal speech); 2) period of no clinical signs followed by stare and loud high pitch vocalization (yelping sounds) followed by oral automatism then grasping movements. The SEEG ictal onsets were nonlocalizable and felt to have multiregional involvement. The interictal findings from his SEEG showed multiregional spikes in the right hemisphere (hippocampus, amygdala,temporal pole, middle temporal gyrus, gyrus rectus, precuneus and angular gyrus). His MRI scan of brain was read as nonlesional. Voxel based morphometric analysis showed possible VBM lesions in the right premotor cortex (near the precentral sulcus and rostral right superior frontal gyrus). 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 Interval Impression: The patient continues to have disabling seizures. He has a hard time affordingnewer antiseizure medications. The patient's compliance with therapy has been: Excellent PLAN: We discussed increasing his dose of Zonegran while continuing his current doses of lamotrigine and lacosamide. We also discussed getting a consult for rfid technician for modified Adkin's diet for control of his seizures. Data reviewed as above including: electronic medical record Testing Ordered anticonvulsant level Education The following issues were discussed with the patient on this visit and written instructions provided as below- Seizure precautions and safety, seizure first aide, when to seek emergency care. Counseling was provided to the patient that missed medications, addition of some new medications, use of alcohol or other substances, and sleep deprivation can lower the seizure threshold. Patient was advised to not drive until released by a physician. I discussed the risk of depression and psychological comorbidities in patients with epilepsy and when to seek help as well as the black box warning of all antiepileptic medications which can increaserisk for suicidality. Medical Management Medication changes were discussed. Increase Zonegran to 200mg in AM and 300mg in PM; continue current dose of lamotrigine 200mg twice daily and lacosamide 200mg twice daily The possibility of serious and adverse reactions were discussed in detail as well as proper use of medication. I discussed that not taking this medication as directed could worsen seizures and can bedangerous. I discussed the risks, benefits and alternatives of the medical plan with the patient. Questions were answered. The patient agreed with the plan as discussed. FOLLOW-UP: Return in about 6 months (around 05/11/2022). I spent a total of 30 minutes on the date of the service which included: preparing to see the patient [id number] patient care completing clinical documentation obtaining and/or reviewing separately obtained history counseling and educating the patient/family/caregiver ordering medications, tests, or procedures Xavi Xie MD cc: Primary Care Physician: Hari Oneill DO [id number] [facility] [id number] Referring: SELF Phone: N/A Fax: Patient: Mr. Eder Breen [id number] [facility] [id number] documented in this [facility] History and physical note * Pepito Chan MD - 10/31/2021 3:27 PM EDT [facility] Abdominal [facility] - HISTORY AND PHYSICAL Chief Complaint: diarrhea and hunger pains HPI: Eder Breen is a 66 year old male who presents with constantly feeling hungry, over eating, and diarrhea. He states this has been going on for about 3 months. He complains that if he doesn't eat, he will get hunger pains. After he eats, he feels better and the discomfort goes away. He also never feels full. He has gained about 40 lbs in the last 3 months. He denies any pain with food,nausea, vomiting, jaundice. He was ordered a RUQ US and HIDA during this work up showing stones andnon-visualization of the gallbladder on HIDA without reproduction of any symptoms during the exam. No history of Psychiatric Disorders or Opioid Use Independent Desk-based labor, rest None Hepatic insufficiency or liver failure, Hypertension, Anti-coagulation medications, Congestive Heart Failure N/A PAST MEDICAL HISTORY Diagnosis Date Abdominal pain, lower Acute gastritis without mention of hemorrhage Arthritis Basal cell carcinoma DDD (degenerative disc disease), cervical Deep vein thrombophlebitis of leg (HCC) hx of Depression Diffuse large B cell lymphoma (HCC) 03/2012 duodenal Diverticulosis of colon (without mention of hemorrhage) Duodenitis without mention of hemorrhage GERD (gastroesophageal reflux disease) H. pylori infection 11/2013 Hemorrhoids History of DVT/PE 01/12/2013 - history of saddle PE in 2010 - IVC filter placed in 2011 possible in the setting of increased risk of falls while on coumadin - coumadin use complaicated by GI bleeding in the setting of supratherapeutic INR, warfarin stopped in 11/2012 - Repeat DVT involving common iliac/femoral and IVD distal tothe filter in 01/2013 while off coumadin, restarted on coumadin - Currently sub therapeutic on coumadin PLAN: -Increase coumadin to 7.5 mg daily - continue coumadin for life in the setting of PE Continue to bridge with lovenox as INR subtherapeutic. 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) Mild aortic sclerosis 07/2013 by echo WILBERTO (obstructive sleep apnea) Pulmonary embolism (HCC) hx of S/P insertion of IVC (inferior vena caval) filter thrombosed (S/P Lysis) Seizures (HCC) Snoring SUMMARY 01/12/2013 Mr Breen is a 58 y M with a medical history significant for: - Grade 3 Follicilar lymphoma, 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 s/p clinical remission and now on Rituximab every 2 months , O/P oncologist Dr Riuz - Epilepsy since , grand mal seizures s/p SEEG placement on 01/23 - 01/27 with localzation ofseizure focus to the left temporal lobe, no grand mal seizures this year, follows up with Dr Xie for epilepsy, on Lacosamide, lamotrigine, keppra and clonazepam with confusion regarding his current medications - History of DVT PE, saddle PE 2010 started on coumadin c/b GI bleed in the setting of supratherapeutic INR, IVC filter placement 04/2012 in the setting of GI bleed and fall risk but continued on coumadin till 11/2012 . Recent DVT in the common iliac, femoral and IVC distal to the IVD filter in 01/2013 while off coumadin. Currently on coumadin and no bleeding episodes/ falls Who is transferred from [facility] for the further evaluation of his dizziness which started about 3 -4 days ago and is now re Traumatic brain injury (HCC) There is a questionabale history of around age of 3 year he was dropped on the driveway may have lost consciousness Traumatic brain injury (HCC) There is a questionabale history of around age of 3 year he was dropped on the driveway may have lost consciousness Unspecified epilepsy without mention of intractable epilepsy Vitamin B12 deficiency 11/2013 Vitamin D deficiency normal level 11/2011 PAST SURGICAL HISTORY Procedure Laterality Date APPENDECTOMY HX COLONOSCOPY FLX DX W/COLLJ SPEC WHEN PFRMD 12/27/2009 Colonoscopy COLONOSCOPY FLX DX W/COLLJ SPEC WHEN PFRMD 05/03/2021 ESOPHAGOGASTRODUODENOSCOPY TRANSORAL DIAGNOSTIC 02/12/2012 EGD ESOPHAGOGASTRODUODENOSCOPY TRANSORAL DIAGNOSTIC 03/27/[address] [facility] inpt ESOPHAGOGASTRODUODENOSCOPY TRANSORAL DIAGNOSTIC 06/04/2012 EGD ESOPHAGOGASTRODUODENOSCOPY TRANSORAL DIAGNOSTIC N/A 11/13/2016 ESOPHAGOGASTRODUODENOSCOPY TRANSORAL DIAGNOSTIC 02/15/2018 EGD ESOPHAGOGASTRODUODENOSCOPY TRANSORAL DIAGNOSTIC 05/03/2021 INSJ TUNNELED CTR VAD W/SUBQ PORT AGE 3 YR/> 04/11/2012 INTRO. 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 right eye blind, injured during seizure Social History Tobacco Use Smoking status: Never Smoker Smokeless tobacco: Never Used Vaping Use Vaping Use: Never used Substance Use Topics Alcohol use: No Drug use: No Additional social history not relevant to the patient's HPI FAMILY HISTORY Problem Relation Age of Onset Stroke Mother Cancer Mother patient states he came from an infection due to a back injury Additional family history not relevant to the patient's HPI ALLERGIES Allergen Reactions Doxycycline GI Upset Current Outpatient Medications Medication Sig Dispense Refill loperamide HCl (IMODIUM A-D) 2 mg tab Take 1 tablet by mouth as needed. 30 tablet 0 warfarin (COUMADIN) 5 mg tablet Take 7.5 mg T//Sun/Sun, 5 mg all other days or as directed 90 tablet 1 levothyroxine (LEVOXYL) 75 mcg tablet Take 1 tablet by mouth daily before breakfast. Take on empty stomach 30 minutes before eating. For Thyroid 90 tablet 1 lamoTRIgine (LAMICTAL) 25 mg tablet TAKE 2 TABLETS TWICE DAILY. TAKE IN ADDITION TO 200MG TABLETS FOR TOTAL DOSE OF 250MG TWICE DAILY. 360 tablet 0 FLUoxetine (PROZAC) 20 mg capsule Take 1 capsule by mouth once daily. in the morning for mood [address] (PROTONIX) 40 mg tablet Take 1 tablet by mouth daily before breakfast. For stomach symptoms, Take on empty stomach, 1/2 hr before meal. 90 tablet 3 lacosamide (VIMPAT) 200 mg Take 1 tablet by mouth twice daily for 180 days. 180 tablet 1 furosemide (LASIX) 40 mg tablet Take 1 tablet by mouth once daily. 90 tablet 1 brivaracetam (BRIVIACT) 100 mg tablet Take 1 tablet by mouth twice daily for 180 days. 180 tablet 1 ondansetron orally disintegrating (ZOFRAN ODT) 4 mg disintegrating tablet Take 1 tablet by mouth every 6 hours as needed for nausea/vomiting. 20 tablet 0 finasteride (PROSCAR) 5 mg tablet TAKE 1 TABLET EVERY DAY 90 tablet 1 clonazePAM orally disintegrating (KLONOPIN WAFER) 0.5 mg disintegrating tablet Take 1 tab for seizures lasting longer than 3 minute or more than 2 seizures in 8 hours. May repeat dose in 10 minutes if seizures continue. Do not exceed more than 2 tabs in 24 hours. 10 tablet 0 lamoTRIgine (LAMICTAL) 200 mg tablet TAKE 1 TABLET TWICE DAILY 180 tablet 3 zonisamide (ZONEGRAN) 100 mg capsule TAKE 2 CAPSULES TWICE DAILY 360 capsule 3 traZODone (DESYREL) 50 mg tablet Take 1 tablet by mouth daily at bedtime. 30 tablet 5 lamoTRIgine (LAMICTAL) 25 mg tablet Take 2 tablets (50mg) at bedtime for 7 days. Then take 2 tablets (50mg) twice daily and continue. Take in addition to 200mg tablets. 120 tablet 0 No current facility-administered medications for this visit. REVIEW OF SYSTEMS The remainder of the 12 review of systems is negative other than what was mentioned in the HPI and above. BP 148/72 Pulse 72 Temp 36.3 C (97.3 F) (Temporal) Ht 182.9 cm (6') Wt 127 kg (280 lb) BMI 37.97 kg/m Physical findings of this patient are as follows (COMPLETE 10 INCLUDING HEART AND LUNG EXAM OR CHOOSE NORMAL EXAM IF APPROPRIATE): Physical Exam Physical Exam Constitutional: The patient is well-developed, well-nourished, and in no distress. Head: Normocephalic and atraumatic. Eyes: Pupils are equal, round, and reactive to light. EOM are normal. Neck: Normal range of motion. Neck supple. Cardiovascular: Regular rhythm and normal heart sounds. Pulmonary/Chest: Effort normal and breath sounds normal. Abdominal: Soft. Bowel sounds are normal. Musculoskeletal: Normal range of motion. Neurological: He is alert. GCS score is 15. Skin: Skin is warm and dry. Psychiatric: Affect and judgment normal. LABS: Hemoglobin A1C (%) Date Value 06/18/2021 5.6 04/19/2020 5.5 05/21/2017 5.6 11/01/2016 5.8 01/12/2015 5.6 IMAGING - Reviewed with staff CT - none US - A single gallstone in the neck of the gallbladder, non gb wall thickening or pericholecystic fluid Assessment: Eder Breen is a 66 year old male who presents with over eating, hunger pains, and lack of satiety. Plan: - I dont believe his symptoms are due to any gallbladder issues. His hunger pain is actually relieved with food instead of worsened. He denies any RUQ pain. I just dont think it would benefit him to under go cholecystectomy. - I will refer him to GI here as well as bariatric surgery as decreasing Ghrelin production by sleeve gastrectomy may be a good option for his complaints. Consultation requested by Dr. Hari Oneill for an opinion regarding diarrhea and hunger pains. My final recommendations will be communicated back to the requesting physician by way of shared Medical record or letter to requesting physician via US mail. documented in this encounterR[facility]03-[facility]22 Nurse Note* Shahida Brush Ma - 10/31/2021 3:02 PM EDT What is the reason for your visit today? consult Who is your referring physician? Dr. chan Are you having poor oral intake? NO Have you had unintentional weight loss of 15 lbs/7 Kg in the last 3-6 months? YES Bowels: diarrhea Wound: clean & dry Temperature: No Drains: No documented in this [facility]03-25-2022 Miscellaneous Notes* Telephone Encounter - Saumya Barba Pss - 10/28/2021 9:57 AM EDT Patient has been identified by name and date of : Yes Pending Prescriptions Disp Refills LOPERAMIDE 2 MG TABLET 30 tablet 0 Sig: Take 1 tablet by mouth as needed. DESMOND: No RX INSTRUCTIONS: Patient aware RX escripted to mail away pharmacy. No need to notify patient. Saumya Barba Pss documented in this encounterR[facility]03-22-2022 Miscellaneous Notes* Telephone Encounter - Niurka Doherty Pss - 10/25/2021 12:22 PM EDT Pharmacy verified in Epic Patient has been identified by name and date of : Yes Patient aware RX will be sent to pharmacy. No need to notify patient. Spouse phones for refill(s): Pending Prescriptions Disp Refills WARFARIN 5 MG TABLET 90 tablet 1 Sig: Take 7.5 mg T//Sat/Sun, 5 mg all other days or as directed DESMOND: No Date of last office visit : 10/20/2021 Date of next office visit : 11/21/2021 Last 2 Encounter Wt Readings: Date: Wt: 10/20/2021 130.6 kg (288 lb) 10/10/2021 127.9 kg (282 lb) Please advise. Niurka Doherty Pss documented in this encounterR[facility]03-08-2022 Miscellaneous Notes* Telephone Encounter - Selena Berg LPN - 10/11/2021 3:42 PM EST Pt. informed detailed message left on VM. He is to call back and verify message. Selena Berg LPN * Telephone Encounter - Hari Oneill DO - 10/11/2021 2:31 PM EST Recommend that he increases the dose of coumadin to 7.5 mg every day but Sunday continue 5 mg tablet. Recheck INR 1 week Hari Oneill DO * Telephone Encounter - Melyssa Mackay LPN - 10/11/2021 10:38 AM EST Patient telephoned. Given message below. States is currently taking Coumadin 7.5mg /// &5mg //. 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 Melyssa Mackay LPN * Telephone Encounter - Hari Oneill DO - 10/11/2021 7:22 AM EST Patient's INR is too low at 1.6. what dose of coumadin is he taking? I will need to adjust dose up. Also his free t4 is borderline low. I would like him to increase his levothyroxine to 75 mcg once aday in AM. Rx sent in as below Hari Oneill DO The following approved medication requests have been transmitted electronically. Signed Prescriptions Disp Refills levothyroxine (LEVOXYL) 75 mcg tablet 90 tablet 1 Sig: Take 1 tablet by mouth daily before breakfast. Take on empty stomach 30 minutes before eating.For Thyroid DESMOND: No Authorizing Provider: HARI ONEILL DO documented in this encounterR[facility]01-03-2022 History of Present illness Narrative* Shahida Weiss RT(R) - 08/08/2021 11:30 AM EST Radiology Service Progress Note PATIENT NAME: Eder Breen DATE OF SERVICE: August 08, 2021 TIME: 11:01 AM PATIENT IDENTITY VERIFICATION COMPLETED USING TWO (2) IDENTIFIERS: Name and Date of confirmedby patient verbally. FALL SCREENING: Has the patient had 2 falls in the last year or 1 fall with injury or currently using an Ambulatory Assistive Device (Walker, Cane, Wheelchair, Crutches, etc.)? No PATIENT GENDER DATA: Male PATIENT RELEVANT IMPLANT DATA REVIEWED: Not Applicable RADIOLOGY DEPARTMENT: General X-ray: Exam(s) Completed: Chest X-Ray PERIPHERAL IV DATA: Not applicable SIGNED BY: RT Demarcus(R) August 08, 2021 11:01 AM documented in this encounterR[facility]04-30-2021 History of Present illness Narrative* Shahida Weiss RT(R) - 12/03/2020 11:30 AM EDT Radiology Service Progress Note PATIENT NAME: Eder Breen DATE OF SERVICE: December 03, 2020 TIME: 11:38 AM PATIENT IDENTITY VERIFICATION COMPLETED USING TWO (2) IDENTIFIERS: Name and Date of confirmedby patient verbally. FALL SCREENING: Has the patient had 2 falls in the last year or 1 fall with injury or currently using an Ambulatory Assistive Device (Walker, Cane, Wheelchair, Crutches, etc.)? No PATIENT GENDER DATA: Male PATIENT RELEVANT IMPLANT DATA REVIEWED: Not Applicable RADIOLOGY DEPARTMENT: General X-ray: Exam(s) Completed: Chest X-Ray PERIPHERAL IV DATA: Not applicable SIGNED BY: RT Demarcus(R) December 03, 2020 11:38 AM documented in this encounterRivers[facility]02-24-2021 History of Past illness Narrative* Problem Noted Date Resolved Date Cellulitis of left lower extremity 09/29/2020 10/06/2021 [place] (acute kidney injury) 09/29/20202021 Functional dyspepsia 02/11/2018 03/25/2018 Overview: Added automatically from request for surgery [id number] History of pulmonary embolism 10/30/2016 History of DVT (deep vein thrombosis) 10/30/2016 03/25/2018 Vertigo 05/04/2014 03/25/2018 Dizziness 03/13/2014 03/25/2018 Overview: History: - discharged from the hospital in February after a surgical EEG electrode placement, normal mentation - went to rehab and siccessfully completed rehab for 4 weeks - reached home appx 1 week back - per patient, there was some confusion regarding which anti epileptic medications he was supposed to be on. Noticed increased diziness since about 3 days back.Did not miss any of his medication doses/ no aura/ no tonic clonic movements/ no falls/ no focal weakness. Called up Dr Xie (his neurologist) and was asked to go to the ED. 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 and transferred to the [facility] for further evaluation - no complains today other than nausea - Tried calling his pharmacy in the evening to reach them, unable to get a response Assessment: - light headedness secondary to polypharmacy and inadvertent overdose vs subclinical seizures Plan: - symptoms already improved after adjusting medications - Epilepsy/ neurology Follow up after discharge DVT of proximal leg (deep vein thrombosis) 01/2703/25/2018 Calf DVT (deep venous thrombosis) 01/27/2014 03/25/2018 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 pylori infection 11/04/2013 03/25/2018 Obesity 10/06/2013 03/25/2018 Decreased libido 07/22/2013 03/25/2018 History of DVT/PE 01/12/2013 03/25/2018 Overview: - history of saddle PE in 2010 - IVC filter placed in 2011 possible in the setting of increased risk of falls while on coumadin - coumadin use complaicated by GI bleeding in the setting of supratherapeutic INR, warfarin stopped in 11/2012 - Repeat DVT involving common iliac/femoral and IVD distal to the filter in 01/2013 while off coumadin, restarted on coumadin - Currently sub therapeutic on coumadin PLAN: -Increase coumadin to 7.5 mg daily - continue coumadin for life in the setting of PE Continue to bridge with lovenox as INR subtherapeutic. 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 s/p clinical remission and now on Rituximab every 2 months , O/P oncologist Dr Ruiz - Epilepsy since , grand mal seizures s/p SEEG placement on 01/23 - 01/27 with localzation of seizure focus to the left temporal lobe, no grand mal seizures this year, follows up with Dr Xie for epilepsy, on Lacosamide, lamotrigine, keppra and clonazepam with confusion regarding his current medications - History of DVT PE, saddle PE 2010 started on coumadin c/b GI bleed in the setting of supratherapeutic INR, IVC filter placement 04/2012 in the setting of GI bleed and fall risk but continued on coumadin till 11/2012 . Recent DVT in the common iliac, femoral and IVC distal to the IVD filter in 01/2013 while off coumadin. Currently on coumadin and no bleeding episodes/ falls Who is transferred from [facility] for the further evaluation of his dizziness which started about 3 -4 days ago and is now resolved Thrombocytopenia 01/12/2013 12/28/2013 Overview: - Not acute - platelet in previous admission 141, todays labs pending - PREVIOUS ANTI PF4 negative - 4 T test score 4- intermediate probability, antiPF4 neg - could be 2/2 lamotrigine vs rituximab (althoug incidence more in RA patients) - no symptoms currently PLAN: - monitor blood counts Urgency of urination 09/10/2012 03/25/2018 Frequency of urination 09/10/2012 8 Duodenitis without mention of hemorrhage 012 03/25/2018 Drug induced neutropenia(288.03) 05/14/2012 03/25/2018 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 Acute gastritis without mention of hemorrhage 03/25/2018 Loss of weight 03/15/2011 03/25/2018 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 Breslow 5.3 mm, Yfn IV, Mitotic rate 5/ sq mm. documented as of this encounter (statuses as of 10/26/2021) [facility] History of Past illness Narrative* Problem Noted Date Resolved Date Cellulitis of left lower extremity 09/29/2020 10/06/2021 [place] (acute kidney injury) 09/29/20202021 Functional dyspepsia 02/11/2018 03/25/2018 Overview: Added automatically from request for surgery [id number] History of pulmonary embolism 10/30/2016 History of DVT (deep vein thrombosis) 10/30/2016 03/25/2018 Vertigo 05/04/2014 03/25/2018 Dizziness 03/13/2014 03/25/2018 Overview: History: - discharged from the hospital in February after a surgical EEG electrode placement, normal mentation - went to rehab and siccessfully completed rehab for 4 weeks - reached home appx 1 week back - per patient, there was some confusion regarding which anti epileptic medications he was supposed to be on. Noticed increased diziness since about 3 days back.Did not miss any of his medication doses/ no aura/ no tonic clonic movements/ no falls/ no focal weakness. Called up Dr Xie (his neurologist) and was asked to go to the ED. 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 and transferred to the [facility] for further evaluation - no complains today other than nausea - Tried calling his pharmacy in the evening to reach them, unable to get a response Assessment: - light headedness secondary to polypharmacy and inadvertent overdose vs subclinical seizures Plan: - symptoms already improved after adjusting medications - Epilepsy/ neurology Follow up after discharge DVT of proximal leg (deep vein thrombosis) 01/2703/25/2018 Calf DVT (deep venous thrombosis) 01/27/2014 03/25/2018 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 pylori infection 11/04/2013 03/25/2018 Obesity 10/06/2013 03/25/2018 Decreased libido 07/22/2013 03/25/2018 History of DVT/PE 01/12/2013 03/25/2018 Overview: - history of saddle PE in 2010 - IVC filter placed in 2011 possible in the setting of increased risk of falls while on coumadin - coumadin use complaicated by GI bleeding in the setting of supratherapeutic INR, warfarin stopped in 11/2012 - Repeat DVT involving common iliac/femoral and IVD distal to the filter in 01/2013 while off coumadin, restarted on coumadin - Currently sub therapeutic on coumadin PLAN: -Increase coumadin to 7.5 mg daily - continue coumadin for life in the setting of PE Continue to bridge with lovenox as INR subtherapeutic. 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 s/p clinical remission and now on Rituximab every 2 months , O/P oncologist Dr Ruiz - Epilepsy since , grand mal seizures s/p SEEG placement on 01/23 - 01/27 with localzation of seizure focus to the left temporal lobe, no grand mal seizures this year, follows up with Dr Xie for epilepsy, on Lacosamide, lamotrigine, keppra and clonazepam with confusion regarding his current medications - History of DVT PE, saddle PE 2010 started on coumadin c/b GI bleed in the setting of supratherapeutic INR, IVC filter placement 04/2012 in the setting of GI bleed and fall risk but continued on coumadin till 11/2012 . Recent DVT in the common iliac, femoral and IVC distal to the IVD filter in 01/2013 while off coumadin. Currently on coumadin and no bleeding episodes/ falls Who is transferred from [facility] for the further evaluation of his dizziness which started about 3 -4 days ago and is now resolved Thrombocytopenia 01/12/2013 12/28/2013 Overview: - Not acute - platelet in previous admission 141, todays labs pending - PREVIOUS ANTI PF4 negative - 4 T test score 4- intermediate probability, antiPF4 neg - could be 2/2 lamotrigine vs rituximab (althoug incidence more in RA patients) - no symptoms currently PLAN: - monitor blood counts Urgency of urination 09/10/2012 03/25/2018 Frequency of urination 09/10/2012 8 Duodenitis without mention of hemorrhage 012 03/25/2018 Drug induced neutropenia(288.03) 05/14/2012 03/25/2018 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 Acute gastritis without mention of hemorrhage 03/25/2018 Loss of weight 03/15/2011 03/25/2018 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 Breslow 5.3 mm, Yfn IV, Mitotic rate 5/ sq mm. documented as of this encounter (statuses as of 10/28/2021) [facility]02-24-2021 History of Past illness Narrative* Problem Noted Date Resolved Date Cellulitis of left lower extremity 09/29/2020 10/06/2021 [place] (acute kidney injury) 09/29/20202021 Functional dyspepsia 02/11/2018 03/25/2018 Overview: Added automatically from request for surgery [id number] History of pulmonary embolism 10/30/2016 History of DVT (deep vein thrombosis) 10/30/2016 03/25/2018 Vertigo 05/04/2014 03/25/2018 Dizziness 03/13/2014 03/25/2018 Overview: History: - discharged from the hospital in February after a surgical EEG electrode placement, normal mentation - went to rehab and siccessfully completed rehab for 4 weeks - reached home appx 1 week back - per patient, there was some confusion regarding which anti epileptic medications he was supposed to be on. Noticed increased diziness since about 3 days back.Did not miss any of his medication doses/ no aura/ no tonic clonic movements/ no falls/ no focal weakness. Called up Dr Xie (his neurologist) and was asked to go to the ED. 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 and transferred [facility] evaluation - no complains today other than nausea - Tried calling his pharmacy in the evening to reach them, unable to get a response Assessment: - light headedness secondary to polypharmacy and inadvertent overdose vs subclinical seizures Plan: - symptoms already improved after adjusting medications - Epilepsy/ neurology Follow up after discharge DVT of proximal leg (deep vein thrombosis) 01/2703/25/2018 Calf DVT (deep venous thrombosis) 01/27/2014 03/25/2018 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 pylori infection 11/04/2013 03/25/2018 Obesity 10/06/2013 03/25/2018 Decreased libido 07/22/2013 03/25/2018 History of DVT/PE 01/12/2013 03/25/2018 Overview: - history of saddle PE in 2010 - IVC filter placed in 2011 possible in the setting of increased risk of falls while on coumadin - coumadin use complaicated by GI bleeding in the setting of supratherapeutic INR, warfarin stopped in 11/2012 - Repeat DVT involving common iliac/femoral and IVD distal to the filter in 01/2013 while off coumadin, restarted on coumadin - Currently sub therapeutic on coumadin PLAN: -Increase coumadin to 7.5 mg daily - continue coumadin for life in the setting of PE Continue to bridge with lovenox as INR subtherapeutic. 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 s/p clinical remission and now on Rituximab every 2 months , O/P oncologist Dr Ruiz - Epilepsy since , grand mal seizures s/p SEEG placement on 01/23 - 01/27 with localzation of seizure focus to the left temporal lobe, no grand mal seizures this year, follows up with Dr Xie for epilepsy, on Lacosamide, lamotrigine, keppra and clonazepam with confusion regarding his current medications - History of DVT PE, saddle PE 2010 started on coumadin c/b GI bleed in the setting of supratherapeutic INR, IVC filter placement 04/2012 in the setting of GI bleed and fall risk but continued on coumadin till 11/2012 . Recent DVT in the common iliac, femoral and IVC distal to the IVD filter in 01/2013 while off coumadin. Currently on coumadin and no bleeding episodes/ falls Who is transferred from [facility] for the further evaluation of his dizziness which started about 3 -4 days ago and is now resolved Thrombocytopenia 01/12/2013 12/28/2013 Overview: - Not acute - platelet in previous admission 141, todays labs pending - PREVIOUS ANTI PF4 negative - 4 T test score 4- intermediate probability, antiPF4 neg - could be 2/2 lamotrigine vs rituximab (althoug incidence more in RA patients) - no symptoms currently PLAN: - monitor blood counts Urgency of urination 09/10/2012 03/25/2018 Frequency of urination 09/10/2012 8 Duodenitis without mention of hemorrhage 012 03/25/2018 Drug induced neutropenia(288.03) 05/14/2012 03/25/2018 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 Acute gastritis without mention of hemorrhage 03/25/2018 Loss of weight 03/15/2011 03/25/2018 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 Breslow 5.3 mm, Yfn IV, Mitotic rate 5/ sq mm. documented as of this encounter (statuses as of 10/31/2021) [facility]02[facility] History of Past illness Narrative* Problem Noted Date Resolved Date Cellulitis of left lower extremity 09/29/2020 10/06/2021 [place] (acute kidney injury) 09/29/20202021 Functional dyspepsia 02/11/2018 03/25/2018 Overview: Added automatically from request for surgery [id number] History of pulmonary embolism 10/30/2016 History of DVT (deep vein thrombosis) 10/30/2016 03/25/2018 Vertigo 05/04/2014 03/25/2018 Dizziness 03/13/2014 03/25/2018 Overview: History: - discharged from the hospital in February after a surgical EEG electrode placement, normal mentation - went to rehab and siccessfully completed rehab for 4 weeks - reached home appx 1 week back - per patient, there was some confusion regarding which anti epileptic medications he was supposed to be on. Noticed increased diziness since about 3 days back.Did not miss any of his medication doses/ no aura/ no tonic clonic movements/ no falls/ no focal weakness. Called up Dr Xie (his neurologist) and was asked to go to the ED. 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 and transferred to the [facility] for further evaluation - no complains today other than nausea - Tried calling his pharmacy in the evening to reach them, unable to get a response Assessment: - light headedness secondary to polypharmacy and inadvertent overdose vs subclinical seizures Plan: - symptoms already improved after adjusting medications - Epilepsy/ neurology Follow up after discharge DVT of proximal leg (deep vein thrombosis) 01/2703/25/2018 Calf DVT (deep venous thrombosis) 01/27/2014 03/25/2018 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 pylori infection 11/04/2013 03/25/2018 Obesity 10/06/2013 03/25/2018 Decreased libido 07/22/2013 03/25/2018 History of DVT/PE 01/12/2013 03/25/2018 Overview: - history of saddle PE in 2010 - IVC filter placed in 2011 possible in the setting of increased risk of falls while on coumadin - coumadin use complaicated by GI bleeding in the setting of supratherapeutic INR, warfarin stopped in 11/2012 - Repeat DVT involving common iliac/femoral and IVD distal to the filter in 01/2013 while off coumadin, restarted on coumadin - Currently sub therapeutic on coumadin PLAN: -Increase coumadin to 7.5 mg daily - continue coumadin for life in the setting of PE Continue to bridge with lovenox as INR subtherapeutic. 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 s/p clinical remission and now on Rituximab every 2 months , O/P oncologist Dr Ruiz - Epilepsy since , grand mal seizures s/p SEEG placement on 01/23 - 01/27 with localzation of seizure focus to the left temporal lobe, no grand mal seizures this year, follows up with Dr Xie for epilepsy, on Lacosamide, lamotrigine, keppra and clonazepam with confusion regarding his current medications - History of DVT PE, saddle PE 2010 started on coumadin c/b GI bleed in the setting of supratherapeutic INR, IVC filter placement 04/2012 in the setting of GI bleed and fall risk but continued on coumadin till 11/2012 . Recent DVT in the common iliac, femoral and IVC distal to the IVD filter in 01/2013 while off coumadin. Currently on coumadin and no bleeding episodes/ falls Who is transferred from [facility] for the further evaluation of his dizziness which started about 3 -4 days ago and is now resolved Thrombocytopenia 01/12/2013 12/28/2013 Overview: - Not acute - platelet in previous admission 141, todays labs pending - PREVIOUS ANTI PF4 negative - 4 T test score 4- intermediate probability, antiPF4 neg - could be 2/2 lamotrigine vs rituximab (althoug incidence more in RA patients) - no symptoms currently PLAN: - monitor blood counts Urgency of urination 09/10/2012 03/25/2018 Frequency of urination 09/10/2012 8 Duodenitis without mention of hemorrhage 012 03/25/2018 Drug induced neutropenia(288.03) 05/14/2012 03/25/2018 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 Breslow 5.3 mm, Yfn IV, Mitotic rate 5/ sq mm. documented as of this encounter (statuses as of 11/11/2021) [facility] History of Past illness Narrative* Problem Noted Date Resolved Date Cellulitis of left lower extremity 09/29/2020 10/06/2021 [place] (acute kidney injury) 09/29/20202021 Functional dyspepsia 02/11/2018 03/25/2018 Overview: Added automatically from request for surgery [id number] History of pulmonary embolism 10/30/2016 History of DVT (deep vein thrombosis) 10/30/2016 03/25/2018 Vertigo 05/04/2014 03/25/2018 Dizziness 03/13/2014 03/25/2018 Overview: History: - discharged from the hospital in February after a surgical EEG electrode placement, normal mentation - went to rehab and siccessfully completed rehab for 4 weeks - reached home appx 1 week back - per patient, there was some confusion regarding which anti epileptic medications he was supposed to be on. Noticed increased diziness since about 3 days back.Did not miss any of his medication doses/ no aura/ no tonic clonic movements/ no falls/ no focal weakness. Called up Dr Xie (his neurologist) and was asked to go to the ED. 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 and transferred to the [facility] for further evaluation - no complains today other than nausea - Tried calling his pharmacy in the evening to reach them, unable to get a response Assessment: - light headedness secondary to polypharmacy and inadvertent overdose vs subclinical seizures Plan: - symptoms already improved after adjusting medications - Epilepsy/ neurology Follow up after discharge DVT of proximal leg (deep vein thrombosis) 01/2703/25/2018 Calf DVT (deep venous thrombosis) 01/27/2014 03/25/2018 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 pylori infection 11/04/2013 03/25/2018 Obesity 10/06/2013 03/25/2018 Decreased libido 07/22/2013 03/25/2018 History of DVT/PE 01/12/2013 03/25/2018 Overview: - history of saddle PE in 2010 - IVC filter placed in 2011 possible in the setting of increased risk of falls while on coumadin - coumadin use complaicated by GI bleeding in the setting of supratherapeutic INR, warfarin stopped in 11/2012 - Repeat DVT involving common iliac/femoral and IVD distal to the filter in 01/2013 while off coumadin, restarted on coumadin - Currently sub therapeutic on coumadin PLAN: -Increase coumadin to 7.5 mg daily - continue coumadin for life in the setting of PE Continue to bridge with lovenox as INR subtherapeutic. 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 s/p clinical remission and now on Rituximab every 2 months , O/P oncologist Dr Masci - Epilepsy since , grand mal seizures s/p SEEG placement on 01/23 - 01/27 with localzation of seizure focus to the left temporal lobe, no grand mal seizures this year, follows up with Dr Xie for epilepsy, on Lacosamide, lamotrigine, keppra and clonazepam with confusion regarding his current medications - History of DVT PE, saddle PE 2010 started on coumadin c/b GI bleed in the setting of supratherapeutic INR, IVC filter placement 04/2012 in the setting of GI bleed and fall risk but continued on coumadin till 11/2012 . Recent DVT in the common iliac, femoral and IVC distal to the IVD filter in 01/2013 while off coumadin. Currently on coumadin and no bleeding episodes/ falls Who is transferred from [facility] for the further evaluation of his dizziness which started about 3 -4 days ago and is now resolved Thrombocytopenia 01/12/2013 12/28/2013 Overview: - Not acute - platelet in previous admission 141, todays labs pending - PREVIOUS ANTI PF4 negative - 4 T test score 4- intermediate probability, antiPF4 neg - could be 2/2 lamotrigine vs rituximab (althoug incidence more in RA patients) - no symptoms currently PLAN: - monitor blood counts Urgency of urination 09/10/2012 03/25/2018 Frequency of urination 09/10/2012 8 Duodenitis without mention of hemorrhage 012 03/25/2018 Drug induced neutropenia(288.03) 05/14/2012 03/25/2018 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 Acute gastritis without mention of hemorrhage 03/25/2018 Loss of weight 03/15/2011 03/25/2018 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 Breslow 5.3 mm, Yfn IV, Mitotic rate 5/ sq mm. documented as of this encounter (statuses as of 11/18/2021) [facility] History of Past illness Narrative* Problem Noted Date Resolved Date Cellulitis of left lower extremity 09/29/2020 10/06/2021 [place] (acute kidney injury) 09/29/20202021 Functional dyspepsia 02/11/2018 03/25/2018 Overview: Added automatically from request for surgery [id number] History of pulmonary embolism 10/30/2016 History of DVT (deep vein thrombosis) 10/30/2016 03/25/2018 Vertigo 05/04/2014 03/25/2018 Dizziness 03/13/2014 03/25/2018 Overview: History: - discharged from the hospital in February after a surgical EEG electrode placement, normal mentation - went to rehab and siccessfully completed rehab for 4 weeks - reached home appx 1 week back - per patient, there was some confusion regarding which anti epileptic medications he was supposed to be on. Noticed increased diziness since about 3 days back.Did not miss any of his medication doses/ no aura/ no tonic clonic movements/ no falls/ no focal weakness. Called up Dr Xie (his neurologist) and was asked to go to the ED. 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 and transferred to the [facility] for further evaluation - no complains today other than nausea - Tried calling his pharmacy in the evening to reach them, unable to get a response Assessment: - light headedness secondary to polypharmacy and inadvertent overdose vs subclinical seizures Plan: - symptoms already improved after adjusting medications - Epilepsy/ neurology Follow up after discharge DVT of proximal leg (deep vein thrombosis) 01/2703/25/2018 Calf DVT (deep venous thrombosis) 01/27/2014 03/25/2018 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 pylori infection 11/04/2013 03/25/2018 Obesity 10/06/2013 03/25/2018 Decreased libido 07/22/2013 03/25/2018 History of DVT/PE 01/12/2013 03/25/2018 Overview: - history of saddle PE in 2010 - IVC filter placed in 2011 possible in the setting of increased risk of falls while on coumadin - coumadin use complaicated by GI bleeding in the setting of supratherapeutic INR, warfarin stopped in 11/2012 - Repeat DVT involving common iliac/femoral and IVD distal to the filter in 01/2013 while off coumadin, restarted on coumadin - Currently sub therapeutic on coumadin PLAN: -Increase coumadin to 7.5 mg daily - continue coumadin for life in the setting of PE Continue to bridge with lovenox as INR subtherapeutic. 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 s/p clinical remission and now on Rituximab every 2 months , O/P oncologist Dr Ruiz - Epilepsy since , grand mal seizures s/p SEEG placement on 01/23 - 01/27 with localzation of seizure focus to the left temporal lobe, no grand mal seizures this year, follows up with Dr Xie for epilepsy, on Lacosamide, lamotrigine, keppra and clonazepam with confusion regarding his current medications - History of DVT PE, saddle PE 2010 started on coumadin c/b GI bleed in the setting of supratherapeutic INR, IVC filter placement 04/2012 in the setting of GI bleed and fall risk but continued on coumadin till 11/2012 . Recent DVT in the common iliac, femoral and IVC distal to the IVD filter in 01/2013 while off coumadin. Currently on coumadin and no bleeding episodes/ falls Who is transferred from [facility] for the further evaluation of his dizziness which started about 3 -4 days ago and is now resolved Thrombocytopenia 01/12/2013 12/28/2013 Overview: - Not acute - platelet in previous admission 141, todays labs pending - PREVIOUS ANTI PF4 negative - 4 T test score 4- intermediate probability, antiPF4 neg - could be 2/2 lamotrigine vs rituximab (althoug incidence more in RA patients) - no symptoms currently PLAN: - monitor blood counts Urgency of urination 09/10/2012 03/25/2018 Frequency of urination 09/10/2012 8 Duodenitis without mention of hemorrhage 012 03/25/2018 Drug induced neutropenia(288.03) 05/14/2012 03/25/2018 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 Acute gastritis without mention of hemorrhage 03/25/2018 Loss of weight 03/15/2011 03/25/2018 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 Breslow 5.3 mm, Yfn IV, Mitotic rate 5/ sq mm. documented as of this encounter (statuses as of 11/23/2021) [facility]02-24-2021 History of Past illness Narrative* Problem Noted Date Resolved Date Cellulitis of left lower extremity 09/29/2020 10/06/2021 [place] (acute kidney injury) 09/29/20202021 Functional dyspepsia 02/11/2018 03/25/2018 Overview: Added automatically from request for surgery [id number] History of pulmonary embolism 10/30/2016 History of DVT (deep vein thrombosis) 10/30/2016 03/25/2018 Vertigo 05/04/2014 03/25/2018 Dizziness 03/13/2014 03/25/2018 Overview: History: - discharged from the hospital in February after a surgical EEG electrode placement, normal mentation - went to rehab and siccessfully completed rehab for 4 weeks - reached home appx 1 week back - per patient, there was some confusion regarding which anti epileptic medications he was supposed to be on. Noticed increased diziness since about 3 days back.Did not miss any of his medication doses/ no aura/ no tonic clonic movements/ no falls/ no focal weakness. Called up Dr Xie (his neurologist) and was asked to go to the ED. 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 and transferred to the [facility] for further evaluation - no complains today other than nausea - Tried calling his pharmacy in the evening to reach them, unable to get a response Assessment: - light headedness secondary to polypharmacy and inadvertent overdose vs subclinical seizures Plan: - symptoms already improved after adjusting medications - Epilepsy/ neurology Follow up after discharge DVT of proximal leg (deep vein thrombosis) 01/2703/25/2018 Calf DVT (deep venous thrombosis) 01/27/2014 03/25/2018 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 pylori infection 11/04/2013 03/25/2018 Obesity 10/06/2013 03/25/2018 Decreased libido 07/22/2013 03/25/2018 History of DVT/PE 01/12/2013 03/25/2018 Overview: - history of saddle PE in 2010 - IVC filter placed in 2011 possible in the setting of increased risk of falls while on coumadin - coumadin use complaicated by GI bleeding in the setting of supratherapeutic INR, warfarin stopped in 11/2012 - Repeat DVT involving common iliac/femoral and IVD distal to the filter in 01/2013 while off coumadin, restarted on coumadin - Currently sub therapeutic on coumadin PLAN: -Increase coumadin to 7.5 mg daily - continue coumadin for life in the setting of PE Continue to bridge with lovenox as INR subtherapeutic. 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 s/p clinical remission and now on Rituximab every 2 months , O/P oncologist Dr Ruiz - Epilepsy since , grand mal seizures s/p SEEG placement on 01/23 - 01/27 with localzation of seizure focus to the left temporal lobe, no grand mal seizures this year, follows up with Dr Xie for epilepsy, on Lacosamide, lamotrigine, keppra and clonazepam with confusion regarding his current medications - History of DVT PE, saddle PE 2010 started on coumadin c/b GI bleed in the setting of supratherapeutic INR, IVC filter placement 04/2012 in the setting of GI bleed and fall risk but continued on coumadin till 11/2012 . Recent DVT in the common iliac, femoral and IVC distal to the IVD filter in 01/2013 while off coumadin. Currently on coumadin and no bleeding episodes/ falls Who is transferred from [facility] for the further evaluation of his dizziness which started about 3 -4 days ago and is now resolved Thrombocytopenia 01/12/2013 12/28/2013 Overview: - Not acute - platelet in previous admission 141, todays labs pending - PREVIOUS ANTI PF4 negative - 4 T test score 4- intermediate probability, antiPF4 neg - could be 2/2 lamotrigine vs rituximab (althoug incidence more in RA patients) - no symptoms currently PLAN: - monitor blood counts Urgency of urination 09/10/2012 03/25/2018 Frequency of urination 09/10/2012 8 Duodenitis without mention of hemorrhage 012 03/25/2018 Drug induced neutropenia(288.03) 05/14/2012 03/25/2018 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 Acute gastritis without mention of hemorrhage 03/25/2018 Loss of weight 03/15/2011 03/25/2018 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 Breslow 5.3 mm, Yfn IV, Mitotic rate 5/ sq mm. documented as of this encounter (statuses as of 11/29/2021) [facility]02[facility] History of Past illness Narrative* Problem Noted Date Resolved Date Cellulitis of left lower extremity 09/29/2020 10/06/2021 [place] (acute kidney injury) 09/29/20202021 Functional dyspepsia 02/11/2018 03/25/2018 Overview: Added automatically from request for surgery [id number] History of pulmonary embolism 10/30/2016 History of DVT (deep vein thrombosis) 10/30/2016 03/25/2018 Vertigo 05/04/2014 03/25/2018 Dizziness 03/13/2014 03/25/2018 Overview: History: - discharged from the hospital in February after a surgical EEG electrode placement, normal mentation - went to rehab and siccessfully completed rehab for 4 weeks - reached home appx 1 week back - per patient, there was some confusion regarding which anti epileptic medications he was supposed to be on. Noticed increased diziness since about 3 days back.Did not miss any of his medication doses/ no aura/ no tonic clonic movements/ no falls/ no focal weakness. Called up Dr Xie (his neurologist) and was asked to go to the ED. 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 and transferred to the [facility] for further evaluation - no complains today other than nausea - Tried calling his pharmacy in the evening to reach them, unable to get a response Assessment: - light headedness secondary to polypharmacy and inadvertent overdose vs subclinical seizures Plan: - symptoms already improved after adjusting medications - Epilepsy/ neurology Follow up after discharge DVT of proximal leg (deep vein thrombosis) 01/2703/25/2018 Calf DVT (deep venous thrombosis) 01/27/2014 03/25/2018 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 pylori infection 11/04/2013 03/25/2018 Obesity 10/06/2013 03/25/2018 Decreased libido 07/22/2013 03/25/2018 History of DVT/PE 01/12/2013 03/25/2018 Overview: - history of saddle PE in 2010 - IVC filter placed in 2011 possible in the setting of increased risk of falls while on coumadin - coumadin use complaicated by GI bleeding in the setting of supratherapeutic INR, warfarin stopped in 11/2012 - Repeat DVT involving common iliac/femoral and IVD distal to the filter in 01/2013 while off coumadin, restarted on coumadin - Currently sub therapeutic on coumadin PLAN: -Increase coumadin to 7.5 mg daily - continue coumadin for life in the setting of PE Continue to bridge with lovenox as INR subtherapeutic. 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 s/p clinical remission and now on Rituximab every 2 months , O/P oncologist Dr Ruiz - Epilepsy since , grand mal seizures s/p SEEG placement on 01/23 - 01/27 with localzation of seizure focus to the left temporal lobe, no grand mal seizures this year, follows up with Dr Xie for epilepsy, on Lacosamide, lamotrigine, keppra and clonazepam with confusion regarding his current medications - History of DVT PE, saddle PE 2010 started on coumadin c/b GI bleed in the setting of supratherapeutic INR, IVC filter placement 04/2012 in the setting of GI bleed and fall risk but continued on coumadin till 11/2012 . Recent DVT in the common iliac, femoral and IVC distal to the IVD filter in 01/2013 while off coumadin. Currently on coumadin and no bleeding episodes/ falls Who is transferred from [facility] for the further evaluation of his dizziness which started about 3 -4 days ago and is now resolved Thrombocytopenia 01/12/2013 12/28/2013 Overview: - Not acute - platelet in previous admission 141, todays labs pending - PREVIOUS ANTI PF4 negative - 4 T test score 4- intermediate probability, antiPF4 neg - could be 2/2 lamotrigine vs rituximab (althoug incidence more in RA patients) - no symptoms currently PLAN: - monitor blood counts Urgency of urination 09/10/2012 03/25/2018 Frequency of urination 09/10/2012 8 Duodenitis without mention of hemorrhage 012 03/25/2018 Drug induced neutropenia(288.03) 05/14/2012 03/25/2018 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 Acute gastritis without mention of hemorrhage 03/25/2018 Loss of weight 03/15/2011 03/25/2018 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 Breslow 5.3 mm, Yfn IV, Mitotic rate 5/ sq mm. documented as of this encounter (statuses as of 12/02/2021) [facility] History of Past illness Narrative* Problem Noted Date Resolved Date Cellulitis of left lower extremity 09/29/2020 10/06/2021 [place] (acute kidney injury) 09/29/20202021 Functional dyspepsia 02/11/2018 03/25/2018 Overview: Added automatically from request for surgery [id number] History of pulmonary embolism 10/30/2016 History of DVT (deep vein thrombosis) 10/30/2016 03/25/2018 Vertigo 05/04/2014 03/25/2018 Dizziness 03/13/2014 03/25/2018 Overview: History: - discharged from the hospital in February after a surgical EEG electrode placement, normal mentation - went to rehab and siccessfully completed rehab for 4 weeks - reached home appx 1 week back - per patient, there was some confusion regarding which anti epileptic medications he was supposed to be on. Noticed increased diziness since about 3 days back.Did not miss any of his medication doses/ no aura/ no tonic clonic movements/ no falls/ no focal weakness. Called up Dr Xie (his neurologist) and was asked to go to the ED. 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 and transferred to the [facility] for further evaluation - no complains today other than nausea - Tried calling his pharmacy in the evening to reach them, unable to get a response Assessment: - light headedness secondary to polypharmacy and inadvertent overdose vs subclinical seizures Plan: - symptoms already improved after adjusting medications - Epilepsy/ neurology Follow up after discharge DVT of proximal leg (deep vein thrombosis) 01/2703/25/2018 Calf DVT (deep venous thrombosis) 01/27/2014 03/25/2018 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 pylori infection 11/04/2013 03/25/2018 Obesity 10/06/2013 03/25/2018 Decreased libido 07/22/2013 03/25/2018 History of DVT/PE 01/12/2013 03/25/2018 Overview: - history of saddle PE in 2010 - IVC filter placed in 2011 possible in the setting of increased risk of falls while on coumadin - coumadin use complaicated by GI bleeding in the setting of supratherapeutic INR, warfarin stopped in 11/2012 - Repeat DVT involving common iliac/femoral and IVD distal to the filter in 01/2013 while off coumadin, restarted on coumadin - Currently sub therapeutic on coumadin PLAN: -Increase coumadin to 7.5 mg daily - continue coumadin for life in the setting of PE Continue to bridge with lovenox as INR subtherapeutic. 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 s/p clinical remission and now on Rituximab every 2 months , O/P oncologist Dr Ruiz - Epilepsy since , grand mal seizures s/p SEEG placement on 01/23 - 01/27 with localzation of seizure focus to the left temporal lobe, no grand mal seizures this year, follows up with Dr Xie for epilepsy, on Lacosamide, lamotrigine, keppra and clonazepam with confusion regarding his current medications - History of DVT PE, saddle PE 2010 started on coumadin c/b GI bleed in the setting of supratherapeutic INR, IVC filter placement 04/2012 in the setting of GI bleed and fall risk but continued on coumadin till 11/2012 . Recent DVT in the common iliac, femoral and IVC distal to the IVD filter in 01/2013 while off coumadin. Currently on coumadin and no bleeding episodes/ falls Who is transferred from [facility] for the further evaluation of his dizziness which started about 3 -4 days ago and is now resolved Thrombocytopenia 01/12/2013 12/28/2013 Overview: - Not acute - platelet in previous admission 141, todays labs pending - PREVIOUS ANTI PF4 negative - 4 T test score 4- intermediate probability, antiPF4 neg - could be 2/2 lamotrigine vs rituximab (althoug incidence more in RA patients) - no symptoms currently PLAN: - monitor blood counts Urgency of urination 09/10/2012 03/25/2018 Frequency of urination 09/10/2012 8 Duodenitis without mention of hemorrhage 012 03/25/2018 Drug induced neutropenia(288.03) 05/14/2012 03/25/2018 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 Breslow 5.3 mm, Yfn IV, Mitotic rate 5/ sq mm. documented as of this encounter (statuses as of 12/11/2021) [facility] History of Past illness Narrative* Problem Noted Date Resolved Date Cellulitis of left lower extremity 09/29/2020 10/06/2021 [place] (acute kidney injury) 09/29/20202021 Functional dyspepsia 02/11/2018 03/25/2018 Overview: Added automatically from request for surgery [id number] History of pulmonary embolism 10/30/2016 History of DVT (deep vein thrombosis) 10/30/2016 03/25/2018 Vertigo 05/04/2014 03/25/2018 Dizziness 03/13/2014 03/25/2018 Overview: History: - discharged from the hospital in February after a surgical EEG electrode placement, normal mentation - went to rehab and siccessfully completed rehab for 4 weeks - reached home appx 1 week back - per patient, there was some confusion regarding which anti epileptic medications he was supposed to be on. Noticed increased diziness since about 3 days back.Did not miss any of his medication doses/ no aura/ no tonic clonic movements/ no falls/ no focal weakness. Called up Dr Xie (his neurologist) and was asked to go to the ED. 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 and transferred to the [facility] for further evaluation - no complains today other than nausea - Tried calling his pharmacy in the evening to reach them, unable to get a response Assessment: - light headedness secondary to polypharmacy and inadvertent overdose vs subclinical seizures Plan: - symptoms already improved after adjusting medications - Epilepsy/ neurology Follow up after discharge DVT of proximal leg (deep vein thrombosis) 01/2703/25/2018 Calf DVT (deep venous thrombosis) 01/27/2014 03/25/2018 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 pylori infection 11/04/2013 03/25/2018 Obesity 10/06/2013 03/25/2018 Decreased libido 07/22/2013 03/25/2018 History of DVT/PE 01/12/2013 03/25/2018 Overview: - history of saddle PE in 2010 - IVC filter placed in 2011 possible in the setting of increased risk of falls while on coumadin - coumadin use complaicated by GI bleeding in the setting of supratherapeutic INR, warfarin stopped in 11/2012 - Repeat DVT involving common iliac/femoral and IVD distal to the filter in 01/2013 while off coumadin, restarted on coumadin - Currently sub therapeutic on coumadin PLAN: -Increase coumadin to 7.5 mg daily - continue coumadin for life in the setting of PE Continue to bridge with lovenox as INR subtherapeutic. 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 s/p clinical remission and now on Rituximab every 2 months , O/P oncologist Dr Ruiz - Epilepsy since , grand mal seizures s/p SEEG placement on 01/23 - 01/27 with localzation of seizure focus to the left temporal lobe, no grand mal seizures this year, follows up with Dr Xie for epilepsy, on Lacosamide, lamotrigine, keppra and clonazepam with confusion regarding his current medications - History of DVT PE, saddle PE 2010 started on coumadin c/b GI bleed in the setting of supratherapeutic INR, IVC filter placement 04/2012 in the setting of GI bleed and fall risk but continued on coumadin till 11/2012 . Recent DVT in the common iliac, femoral and IVC distal to the IVD filter in 01/2013 while off coumadin. Currently on coumadin and no bleeding episodes/ falls Who is transferred from [facility] for the further evaluation of his dizziness which started about 3 -4 days ago and is now resolved Thrombocytopenia 01/12/2013 12/28/2013 Overview: - Not acute - platelet in previous admission 141, todays labs pending - PREVIOUS ANTI PF4 negative - 4 T test score 4- intermediate probability, antiPF4 neg - could be 2/2 lamotrigine vs rituximab (althoug incidence more in RA patients) - no symptoms currently PLAN: - monitor blood counts Urgency of urination 09/10/2012 03/25/2018 Frequency of urination 09/10/2012 8 Duodenitis without mention of hemorrhage 012 03/25/2018 Drug induced neutropenia(288.03) 05/14/2012 03/25/2018 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 Acute gastritis without mention of hemorrhage 03/25/2018 Loss of weight 03/15/2011 03/25/2018 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 Breslow 5.3 mm, Yfn IV, Mitotic rate 5/ sq mm. documented as of this encounter (statuses as of 12/12/2021) [facility] History of Past illness Narrative* Problem Noted Date Resolved Date Cellulitis of left lower extremity 09/29/2020 10/06/2021 [place] (acute kidney injury) 09/29/20202021 Functional dyspepsia 02/11/2018 03/25/2018 Overview: Added automatically from request for surgery [id number] History of pulmonary embolism 10/30/2016 History of DVT (deep vein thrombosis) 10/30/2016 03/25/2018 Vertigo 05/04/2014 03/25/2018 Dizziness 03/13/2014 03/25/2018 Overview: History: - discharged from the hospital in February after a surgical EEG electrode placement, normal mentation - went to rehab and siccessfully completed rehab for 4 weeks - reached home appx 1 week back - per patient, there was some confusion regarding which anti epileptic medications he was supposed to be on. Noticed increased diziness since about 3 days back.Did not miss any of his medication doses/ no aura/ no tonic clonic movements/ no falls/ no focal weakness. Called up Dr Xie (his neurologist) and was asked to go to the ED. 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 and transferred to the [facility] for further evaluation - no complains today other than nausea - Tried calling his pharmacy in the evening to reach them, unable to get a response Assessment: - light headedness secondary to polypharmacy and inadvertent overdose vs subclinical seizures Plan: - symptoms already improved after adjusting medications - Epilepsy/ neurology Follow up after discharge DVT of proximal leg (deep vein thrombosis) 01/2703/25/2018 Calf DVT (deep venous thrombosis) 01/27/2014 03/25/2018 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 pylori infection 11/04/2013 03/25/2018 Obesity 10/06/2013 03/25/2018 Decreased libido 07/22/2013 03/25/2018 History of DVT/PE 01/12/2013 03/25/2018 Overview: - history of saddle PE in 2010 - IVC filter placed in 2011 possible in the setting of increased risk of falls while on coumadin - coumadin use complaicated by GI bleeding in the setting of supratherapeutic INR, warfarin stopped in 11/2012 - Repeat DVT involving common iliac/femoral and IVD distal to the filter in 01/2013 while off coumadin, restarted on coumadin - Currently sub therapeutic on coumadin PLAN: -Increase coumadin to 7.5 mg daily - continue coumadin for life in the setting of PE Continue to bridge with lovenox as INR subtherapeutic. 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 s/p clinical remission and now on Rituximab every 2 months , O/P oncologist Dr Ruiz - Epilepsy since , grand mal seizures s/p SEEG placement on 01/23 - 01/27 with localzation of seizure focus to the left temporal lobe, no grand mal seizures this year, follows up with Dr Xie for epilepsy, on Lacosamide, lamotrigine, keppra and clonazepam with confusion regarding his current medications - History of DVT PE, saddle PE 2010 started on coumadin c/b GI bleed in the setting of supratherapeutic INR, IVC filter placement 04/2012 in the setting of GI bleed and fall risk but continued on coumadin till 11/2012 . Recent DVT in the common iliac, femoral and IVC distal to the IVD filter in 01/2013 while off coumadin. Currently on coumadin and no bleeding episodes/ falls Who is transferred from [facility] for the further evaluation of his dizziness which started about 3 -4 days ago and is now resolved Thrombocytopenia 01/12/2013 12/28/2013 Overview: - Not acute - platelet in previous admission 141, todays labs pending - PREVIOUS ANTI PF4 negative - 4 T test score 4- intermediate probability, antiPF4 neg - could be 2/2 lamotrigine vs rituximab (althoug incidence more in RA patients) - no symptoms currently PLAN: - monitor blood counts Urgency of urination 09/10/2012 03/25/2018 Frequency of urination 09/10/2012 8 Duodenitis without mention of hemorrhage 012 03/25/2018 Drug induced neutropenia(288.03) 05/14/2012 03/25/2018 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 Acute gastritis without mention of hemorrhage 03/25/2018 Loss of weight 03/15/2011 03/25/2018 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 Breslow 5.3 mm, Yfn IV, Mitotic rate 5/ sq mm. documented as of this encounter (statuses as of 12/14/2021) [facility]02-24-2021 History of Past illness Narrative* Problem Noted Date Resolved Date Cellulitis of left lower extremity 09/29/2020 10/06/2021 [place] (acute kidney injury) 09/29/20202021 Functional dyspepsia 02/11/2018 03/25/2018 Overview: Added automatically from request for surgery [id number] History of pulmonary embolism 10/30/2016 History of DVT (deep vein thrombosis) 10/30/2016 03/25/2018 Vertigo 05/04/2014 03/25/2018 Dizziness 03/13/2014 03/25/2018 Overview: History: - discharged from the hospital in February after a surgical EEG electrode placement, normal mentation - went to rehab and siccessfully completed rehab for 4 weeks - reached home appx 1 week back - per patient, there was some confusion regarding which anti epileptic medications he was supposed to be on. Noticed increased diziness since about 3 days back.Did not miss any of his medication doses/ no aura/ no tonic clonic movements/ no falls/ no focal weakness. Called up Dr Xie (his neurologist) and was asked to go to the ED. 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 and transferred to the [facility] for further evaluation - no complains today other than nausea - Tried calling his pharmacy in the evening to reach them, unable to get a response Assessment: - light headedness secondary to polypharmacy and inadvertent overdose vs subclinical seizures Plan: - symptoms already improved after adjusting medications - Epilepsy/ neurology Follow up after discharge DVT of proximal leg (deep vein thrombosis) 01/2703/25/2018 Calf DVT (deep venous thrombosis) 01/27/2014 03/25/2018 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 pylori infection 11/04/2013 03/25/2018 Obesity 10/06/2013 03/25/2018 Decreased libido 07/22/2013 03/25/2018 History of DVT/PE 01/12/2013 03/25/2018 Overview: - history of saddle PE in 2010 - IVC filter placed in 2011 possible in the setting of increased risk of falls while on coumadin - coumadin use complaicated by GI bleeding in the setting of supratherapeutic INR, warfarin stopped in 11/2012 - Repeat DVT involving common iliac/femoral and IVD distal to the filter in 01/2013 while off coumadin, restarted on coumadin - Currently sub therapeutic on coumadin PLAN: -Increase coumadin to 7.5 mg daily - continue coumadin for life in the setting of PE Continue to bridge with lovenox as INR subtherapeutic. 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 s/p clinical remission and now on Rituximab every 2 months , O/P oncologist Dr Ruiz - Epilepsy since , grand mal seizures s/p SEEG placement on 01/23 - 01/27 with localzation of seizure focus to the left temporal lobe, no grand mal seizures this year, follows up with Dr Xie for epilepsy, on Lacosamide, lamotrigine, keppra and clonazepam with confusion regarding his current medications - History of DVT PE, saddle PE 2010 started on coumadin c/b GI bleed in the setting of supratherapeutic INR, IVC filter placement 04/2012 in the setting of GI bleed and fall risk but continued on coumadin till 11/2012 . Recent DVT in the common iliac, femoral and IVC distal to the IVD filter in 01/2013 while off coumadin. Currently on coumadin and no bleeding episodes/ falls Who is transferred from [facility] for the further evaluation of his dizziness which started about 3 -4 days ago and is now resolved Thrombocytopenia 01/12/2013 12/28/2013 Overview: - Not acute - platelet in previous admission 141, todays labs pending - PREVIOUS ANTI PF4 negative - 4 T test score 4- intermediate probability, antiPF4 neg - could be 2/2 lamotrigine vs rituximab (althoug incidence more in RA patients) - no symptoms currently PLAN: - monitor blood counts Urgency of urination 09/10/2012 03/25/2018 Frequency of urination 09/10/2012 8 Duodenitis without mention of hemorrhage 012 03/25/2018 Drug induced neutropenia(288.03) 05/14/2012 03/25/2018 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 Acute gastritis without mention of hemorrhage 03/25/2018 Loss of weight 03/15/2011 03/25/2018 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 Breslow 5.3 mm, Yfn IV, Mitotic rate 5/ sq mm. documented as of this encounter (statuses as of 12/15/2021) [facility] History of Past illness Narrative* Problem Noted Date Resolved Date Cellulitis of left lower extremity 09/29/2020 10/06/2021 [place] (acute kidney injury) 09/29/20202021 Functional dyspepsia 02/11/2018 03/25/2018 Overview: Added automatically from request for surgery [id number] History of pulmonary embolism 10/30/2016 History of DVT (deep vein thrombosis) 10/30/2016 03/25/2018 Vertigo 05/04/2014 03/25/2018 Dizziness 03/13/2014 03/25/2018 Overview: History: - discharged from the hospital in February after a surgical EEG electrode placement, normal mentation - went to rehab and siccessfully completed rehab for 4 weeks - reached home appx 1 week back - per patient, there was some confusion regarding which anti epileptic medications he was supposed to be on. Noticed increased diziness since about 3 days back.Did not miss any of his medication doses/ no aura/ no tonic clonic movements/ no falls/ no focal weakness. Called up Dr Xie (his neurologist) and was asked to go to the ED. 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 and transferred to the [facility] for further evaluation - no complains today other than nausea - Tried calling his pharmacy in the evening to reach them, unable to get a response Assessment: - light headedness secondary to polypharmacy and inadvertent overdose vs subclinical seizures Plan: - symptoms already improved after adjusting medications - Epilepsy/ neurology Follow up after discharge DVT of proximal leg (deep vein thrombosis) 01/2703/25/2018 Calf DVT (deep venous thrombosis) 01/27/2014 03/25/2018 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 pylori infection 11/04/2013 03/25/2018 Obesity 10/06/2013 03/25/2018 Decreased libido 07/22/2013 03/25/2018 History of DVT/PE 01/12/2013 03/25/2018 Overview: - history of saddle PE in 2010 - IVC filter placed in 2011 possible in the setting of increased risk of falls while on coumadin - coumadin use complaicated by GI bleeding in the setting of supratherapeutic INR, warfarin stopped in 11/2012 - Repeat DVT involving common iliac/femoral and IVD distal to the filter in 01/2013 while off coumadin, restarted on coumadin - Currently sub therapeutic on coumadin PLAN: -Increase coumadin to 7.5 mg daily - continue coumadin for life in the setting of PE Continue to bridge with lovenox as INR subtherapeutic. 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 s/p clinical remission and now on Rituximab every 2 months , O/P oncologist Dr Ruiz - Epilepsy since , grand mal seizures s/p SEEG placement on 01/23 - 01/27 with localzation of seizure focus to the left temporal lobe, no grand mal seizures this year, follows up with Dr Xie for epilepsy, on Lacosamide, lamotrigine, keppra and clonazepam with confusion regarding his current medications - History of DVT PE, saddle PE 2010 started on coumadin c/b GI bleed in the setting of supratherapeutic INR, IVC filter placement 04/2012 in the setting of GI bleed and fall risk but continued on coumadin till 11/2012 . Recent DVT in the common iliac, femoral and IVC distal to the IVD filter in 01/2013 while off coumadin. Currently on coumadin and no bleeding episodes/ falls Who is transferred from [facility] for the further evaluation of his dizziness which started about 3 -4 days ago and is now resolved Thrombocytopenia 01/12/2013 12/28/2013 Overview: - Not acute - platelet in previous admission 141, todays labs pending - PREVIOUS ANTI PF4 negative - 4 T test score 4- intermediate probability, antiPF4 neg - could be 2/2 lamotrigine vs rituximab (althoug incidence more in RA patients) - no symptoms currently PLAN: - monitor blood counts Urgency of urination 09/10/2012 03/25/2018 Frequency of urination 09/10/2012 8 Duodenitis without mention of hemorrhage 012 03/25/2018 Drug induced neutropenia(288.03) 05/14/2012 03/25/2018 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 Acute gastritis without mention of hemorrhage 03/25/2018 Loss of weight 03/15/2011 03/25/2018 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 Breslow 5.3 mm, Yfn IV, Mitotic rate 5/ sq mm. documented as of this encounter (statuses as of 12/19/2021) [facility] History of Past illness Narrative* Problem Noted Date Resolved Date Cellulitis of left lower extremity 09/29/2020 10/06/2021 [place] (acute kidney injury) 09/29/20202021 Functional dyspepsia 02/11/2018 03/25/2018 Overview: Added automatically from request for surgery [id number] History of pulmonary embolism 10/30/2016 History of DVT (deep vein thrombosis) 10/30/2016 03/25/2018 Vertigo 05/04/2014 03/25/2018 Dizziness 03/13/2014 03/25/2018 Overview: History: - discharged from the hospital in February after a surgical EEG electrode placement, normal mentation - went to rehab and siccessfully completed rehab for 4 weeks - reached home appx 1 week back - per patient, there was some confusion regarding which anti epileptic medications he was supposed to be on. Noticed increased diziness since about 3 days back.Did not miss any of his medication doses/ no aura/ no tonic clonic movements/ no falls/ no focal weakness. Called up Dr Xie (his neurologist) and was asked to go to the ED. 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 and transferred to the [facility] for further evaluation - no complains today other than nausea - Tried calling his pharmacy in the evening to reach them, unable to get a response Assessment: - light headedness secondary to polypharmacy and inadvertent overdose vs subclinical seizures Plan: - symptoms already improved after adjusting medications - Epilepsy/ neurology Follow up after discharge DVT of proximal leg (deep vein thrombosis) 01/2703/25/2018 Calf DVT (deep venous thrombosis) 01/27/2014 03/25/2018 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 pylori infection 11/04/2013 03/25/2018 Obesity 10/06/2013 03/25/2018 Decreased libido 07/22/2013 03/25/2018 History of DVT/PE 01/12/2013 03/25/2018 Overview: - history of saddle PE in 2010 - IVC filter placed in 2011 possible in the setting of increased risk of falls while on coumadin - coumadin use complaicated by GI bleeding in the setting of supratherapeutic INR, warfarin stopped in 11/2012 - Repeat DVT involving common iliac/femoral and IVD distal to the filter in 01/2013 while off coumadin, restarted on coumadin - Currently sub therapeutic on coumadin PLAN: -Increase coumadin to 7.5 mg daily - continue coumadin for life in the setting of PE Continue to bridge with lovenox as INR subtherapeutic. 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 s/p clinical remission and now on Rituximab every 2 months , O/P oncologist Dr Ruiz - Epilepsy since , grand mal seizures s/p SEEG placement on 01/23 - 01/27 with localzation of seizure focus to the left temporal lobe, no grand mal seizures this year, follows up with Dr Xie for epilepsy, on Lacosamide, lamotrigine, keppra and clonazepam with confusion regarding his current medications - History of DVT PE, saddle PE 2010 started on coumadin c/b GI bleed in the setting of supratherapeutic INR, IVC filter placement 04/2012 in the setting of GI bleed and fall risk but continued on coumadin till 11/2012 . Recent DVT in the common iliac, femoral and IVC distal to the IVD filter in 01/2013 while off coumadin. Currently on coumadin and no bleeding episodes/ falls Who is transferred from [facility] for the further evaluation of his dizziness which started about 3 -4 days ago and is now resolved Thrombocytopenia 01/12/2013 12/28/2013 Overview: - Not acute - platelet in previous admission 141, todays labs pending - PREVIOUS ANTI PF4 negative - 4 T test score 4- intermediate probability, antiPF4 neg - could be 2/2 lamotrigine vs rituximab (althoug incidence more in RA patients) - no symptoms currently PLAN: - monitor blood counts Urgency of urination 09/10/2012 03/25/2018 Frequency of urination 09/10/2012 8 Duodenitis without mention of hemorrhage 012 03/25/2018 Drug induced neutropenia(288.03) 05/14/2012 03/25/2018 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 Breslow 5.3 mm, Yfn IV, Mitotic rate 5/ sq mm. documented as of this encounter (statuses as of 01/04/2022) [facility] History of Past illness Narrative* Problem Noted Date Resolved Date Cellulitis of left lower extremity 09/29/2020 10/06/2021 [place] (acute kidney injury) 09/29/20202021 Functional dyspepsia 02/11/2018 03/25/2018 Overview: Added automatically from request for surgery [id number] History of pulmonary embolism 10/30/2016 History of DVT (deep vein thrombosis) 10/30/2016 03/25/2018 Vertigo 05/04/2014 03/25/2018 Dizziness 03/13/2014 03/25/2018 Overview: History: - discharged from the hospital in February after a surgical EEG electrode placement, normal mentation - went to rehab and siccessfully completed rehab for 4 weeks - reached home appx 1 week back - per patient, there was some confusion regarding which anti epileptic medications he was supposed to be on. Noticed increased diziness since about 3 days back.Did not miss any of his medication doses/ no aura/ no tonic clonic movements/ no falls/ no focal weakness. Called up Dr Xie (his neurologist) and was asked to go to the ED. 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 and transferred to the [facility] for further evaluation - no complains today other than nausea - Tried calling his pharmacy in the evening to reach them, unable to get a response Assessment: - light headedness secondary to polypharmacy and inadvertent overdose vs subclinical seizures Plan: - symptoms already improved after adjusting medications - Epilepsy/ neurology Follow up after discharge DVT of proximal leg (deep vein thrombosis) 01/2703/25/2018 Calf DVT (deep venous thrombosis) 01/27/2014 03/25/2018 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 pylori infection 11/04/2013 03/25/2018 Obesity 10/06/2013 03/25/2018 Decreased libido 07/22/2013 03/25/2018 History of DVT/PE 01/12/2013 03/25/2018 Overview: - history of saddle PE in 2010 - IVC filter placed in 2011 possible in the setting of increased risk of falls while on coumadin - coumadin use complaicated by GI bleeding in the setting of supratherapeutic INR, warfarin stopped in 11/2012 - Repeat DVT involving common iliac/femoral and IVD distal to the filter in 01/2013 while off coumadin, restarted on coumadin - Currently sub therapeutic on coumadin PLAN: -Increase coumadin to 7.5 mg daily - continue coumadin for life in the setting of PE Continue to bridge with lovenox as INR subtherapeutic. 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 s/p clinical remission and now on Rituximab every 2 months , O/P oncologist Dr Ruiz - Epilepsy since , grand mal seizures s/p SEEG placement on 01/23 - 01/27 with localzation of seizure focus to the left temporal lobe, no grand mal seizures this year, follows up with Dr Xie for epilepsy, on Lacosamide, lamotrigine, keppra and clonazepam with confusion regarding his current medications - History of DVT PE, saddle PE 2010 started on coumadin c/b GI bleed in the setting of supratherapeutic INR, IVC filter placement 04/2012 in the setting of GI bleed and fall risk but continued on coumadin till 11/2012 . Recent DVT in the common iliac, femoral and IVC distal to the IVD filter in 01/2013 while off coumadin. Currently on coumadin and no bleeding episodes/ falls Who is transferred from [facility] for the further evaluation of his dizziness which started about 3 -4 days ago and is now resolved Thrombocytopenia 01/12/2013 12/28/2013 Overview: - Not acute - platelet in previous admission 141, todays labs pending - PREVIOUS ANTI PF4 negative - 4 T test score 4- intermediate probability, antiPF4 neg - could be 2/2 lamotrigine vs rituximab (althoug incidence more in RA patients) - no symptoms currently PLAN: - monitor blood counts Urgency of urination 09/10/2012 03/25/2018 Frequency of urination 09/10/2012 8 Duodenitis without mention of hemorrhage 012 03/25/2018 Drug induced neutropenia(288.03) 05/14/2012 03/25/2018 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 Acute gastritis without mention of hemorrhage 03/25/2018 Loss of weight 03/15/2011 03/25/2018 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 Breslow 5.3 mm, Yfn IV, Mitotic rate 5/ sq mm. documented as of this encounter (statuses as of 01/12/2022) [facility] History of Past illness Narrative* Problem Noted Date Resolved Date Cellulitis of left lower extremity 09/29/2020 10/06/2021 [place] (acute kidney injury) 09/29/20202021 Functional dyspepsia 02/11/2018 03/25/2018 Overview: Added automatically from request for surgery [id number] History of pulmonary embolism 10/30/2016 History of DVT (deep vein thrombosis) 10/30/2016 03/25/2018 Vertigo 05/04/2014 03/25/2018 Dizziness 03/13/2014 03/25/2018 Overview: History: - discharged from the hospital in February after a surgical EEG electrode placement, normal mentation - went to rehab and siccessfully completed rehab for 4 weeks - reached home appx 1 week back - per patient, there was some confusion regarding which anti epileptic medications he was supposed to be on. Noticed increased diziness since about 3 days back.Did not miss any of his medication doses/ no aura/ no tonic clonic movements/ no falls/ no focal weakness. Called up Dr Xie (his neurologist) and was asked to go to the ED. 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 and transferred to the [facility] for further evaluation - no complains today other than nausea - Tried calling his pharmacy in the evening to reach them, unable to get a response Assessment: - light headedness secondary to polypharmacy and inadvertent overdose vs subclinical seizures Plan: - symptoms already improved after adjusting medications - Epilepsy/ neurology Follow up after discharge DVT of proximal leg (deep vein thrombosis) 01/2703/25/2018 Calf DVT (deep venous thrombosis) 01/27/2014 03/25/2018 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 pylori infection 11/04/2013 03/25/2018 Obesity 10/06/2013 03/25/2018 Decreased libido 07/22/2013 03/25/2018 History of DVT/PE 01/12/2013 03/25/2018 Overview: - history of saddle PE in 2010 - IVC filter placed in 2011 possible in the setting of increased risk of falls while on coumadin - coumadin use complaicated by GI bleeding in the setting of supratherapeutic INR, warfarin stopped in 11/2012 - Repeat DVT involving common iliac/femoral and IVD distal to the filter in 01/2013 while off coumadin, restarted on coumadin - Currently sub therapeutic on coumadin PLAN: -Increase coumadin to 7.5 mg daily - continue coumadin for life in the setting of PE Continue to bridge with lovenox as INR subtherapeutic. 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 s/p clinical remission and now on Rituximab every 2 months , O/P oncologist Dr Ruiz - Epilepsy since , grand mal seizures s/p SEEG placement on 01/23 - 01/27 with localzation of seizure focus to the left temporal lobe, no grand mal seizures this year, follows up with Dr Xie for epilepsy, on Lacosamide, lamotrigine, keppra and clonazepam with confusion regarding his current medications - History of DVT PE, saddle PE 2010 started on coumadin c/b GI bleed in the setting of supratherapeutic INR, IVC filter placement 04/2012 in the setting of GI bleed and fall risk but continued on coumadin till 11/2012 . Recent DVT in the common iliac, femoral and IVC distal to the IVD filter in 01/2013 while off coumadin. Currently on coumadin and no bleeding episodes/ falls Who is transferred from [facility] for the further evaluation of his dizziness which started about 3 -4 days ago and is now resolved Thrombocytopenia 01/12/2013 12/28/2013 Overview: - Not acute - platelet in previous admission 141, todays labs pending - PREVIOUS ANTI PF4 negative - 4 T test score 4- intermediate probability, antiPF4 neg - could be 2/2 lamotrigine vs rituximab (althoug incidence more in RA patients) - no symptoms currently PLAN: - monitor blood counts Urgency of urination 09/10/2012 03/25/2018 Frequency of urination 09/10/2012 8 Duodenitis without mention of hemorrhage 012 03/25/2018 Drug induced neutropenia(288.03) 05/14/2012 03/25/2018 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 Acute gastritis without mention of hemorrhage 03/25/2018 Loss of weight 03/15/2011 03/25/2018 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 Breslow 5.3 mm, Yfn IV, Mitotic rate 5/ sq mm. documented as of this encounter (statuses as of 01/27/2022) [place] [id number] History of Past illness Narrative* Problem Noted Date Resolved Date Cellulitis of left lower extremity 09/29/2020 10/06/2021 [place] (acute kidney injury) 09/29/20202021 Functional dyspepsia 02/11/2018 03/25/2018 Overview: Added automatically from request for surgery [id number] History of pulmonary embolism 10/30/2016 History of DVT (deep vein thrombosis) 10/30/2016 03/25/2018 Vertigo 05/04/2014 03/25/2018 Dizziness 03/13/2014 03/25/2018 Overview: History: - discharged from the hospital in February after a surgical EEG electrode placement, normal mentation - went to rehab and siccessfully completed rehab for 4 weeks - reached home appx 1 week back - per patient, there was some confusion regarding which anti epileptic medications he was supposed to be on. Noticed increased diziness since about 3 days back.Did not miss any of his medication doses/ no aura/ no tonic clonic movements/ no falls/ no focal weakness. Called up Dr Xie (his neurologist) and was asked to go to the ED. 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 and transferred to the [facility] for further evaluation - no complains today other than nausea - Tried calling his pharmacy in the evening to reach them, unable to get a response Assessment: - light headedness secondary to polypharmacy and inadvertent overdose vs subclinical seizures Plan: - symptoms already improved after adjusting medications - Epilepsy/ neurology Follow up after discharge DVT of proximal leg (deep vein thrombosis) 01/2703/25/2018 Calf DVT (deep venous thrombosis) 01/27/2014 03/25/2018 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 pylori infection 11/04/2013 03/25/2018 Obesity 10/06/2013 03/25/2018 Decreased libido 07/22/2013 03/25/2018 History of DVT/PE 01/12/2013 03/25/2018 Overview: - history of saddle PE in 2010 - IVC filter placed in 2011 possible in the setting of increased risk of falls while on coumadin - coumadin use complaicated by GI bleeding in the setting of supratherapeutic INR, warfarin stopped in 11/2012 - Repeat DVT involving common iliac/femoral and IVD distal to the filter in 01/2013 while off coumadin, restarted on coumadin - Currently sub therapeutic on coumadin PLAN: -Increase coumadin to 7.5 mg daily - continue coumadin for life in the setting of PE Continue to bridge with lovenox as INR subtherapeutic. 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 s/p clinical remission and now on Rituximab every 2 months , O/P oncologist Dr Ruiz - Epilepsy since , grand mal seizures s/p SEEG placement on 01/23 - 01/27 with localzation of seizure focus to the left temporal lobe, no grand mal seizures this year, follows up with Dr Xie for epilepsy, on Lacosamide, lamotrigine, keppra and clonazepam with confusion regarding his current medications - History of DVT PE, saddle PE 2010 started on coumadin c/b GI bleed in the setting of supratherapeutic INR, IVC filter placement 04/2012 in the setting of GI bleed and fall risk but continued on coumadin till 11/2012 . Recent DVT in the common iliac, femoral and IVC distal to the IVD filter in 01/2013 while off coumadin. Currently on coumadin and no bleeding episodes/ falls Who is transferred from [facility] for the further evaluation of his dizziness which started about 3 -4 days ago and is now resolved Thrombocytopenia 01/12/2013 12/28/2013 Overview: - Not acute - platelet in previous admission 141, todays labs pending - PREVIOUS ANTI PF4 negative - 4 T test score 4- intermediate probability, antiPF4 neg - could be 2/2 lamotrigine vs rituximab (althoug incidence more in RA patients) - no symptoms currently PLAN: - monitor blood counts Urgency of urination 09/10/2012 03/25/2018 Frequency of urination 09/10/2012 8 Duodenitis without mention of hemorrhage 012 03/25/2018 Drug induced neutropenia(288.03) 05/14/2012 03/25/2018 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 Acute gastritis without mention of hemorrhage 03/25/2018 Loss of weight 03/15/2011 03/25/2018 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 Breslow 5.3 mm, Yfn IV, Mitotic rate 5/ sq mm. documented as of this encounter (statuses as of 02/01/2022) [facility]-24-2021 History of Past illness Narrative* Problem Noted Date Resolved Date Cellulitis of left lower extremity 09/29/2020 10/06/2021 [place] (acute kidney injury) 09/29/20202021 Functional dyspepsia 02/11/2018 03/25/2018 Overview: Added automatically from request for surgery [id number] History of pulmonary embolism 10/30/2016 History of DVT (deep vein thrombosis) 10/30/2016 03/25/2018 Vertigo 05/04/2014 03/25/2018 Dizziness 03/13/2014 03/25/2018 Overview: History: - discharged from the hospital in February after a surgical EEG electrode placement, normal mentation - went to rehab and siccessfully completed rehab for 4 weeks - reached home appx 1 week back - per patient, there was some confusion regarding which anti epileptic medications he was supposed to be on. Noticed increased diziness since about 3 days back.Did not miss any of his medication doses/ no aura/ no tonic clonic movements/ no falls/ no focal weakness. Called up Dr Xie (his neurologist) and was asked to go to the ED. 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 and transferred to the [facility] for further evaluation - no complains today other than nausea - Tried calling his pharmacy in the evening to reach them, unable to get a response Assessment: - light headedness secondary to polypharmacy and inadvertent overdose vs subclinical seizures Plan: - symptoms already improved after adjusting medications - Epilepsy/ neurology Follow up after discharge DVT of proximal leg (deep vein thrombosis) 01/2703/25/2018 Calf DVT (deep venous thrombosis) 01/27/2014 03/25/2018 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 pylori infection 11/04/2013 03/25/2018 Obesity 10/06/2013 03/25/2018 Decreased libido 07/22/2013 03/25/2018 History of DVT/PE 01/12/2013 03/25/2018 Overview: - history of saddle PE in 2010 - IVC filter placed in 2011 possible in the setting of increased risk of falls while on coumadin - coumadin use complaicated by GI bleeding in the setting of supratherapeutic INR, warfarin stopped in 11/2012 - Repeat DVT involving common iliac/femoral and IVD distal to the filter in 01/2013 while off coumadin, restarted on coumadin - Currently sub therapeutic on coumadin PLAN: -Increase coumadin to 7.5 mg daily - continue coumadin for life in the setting of PE Continue to bridge with lovenox as INR subtherapeutic. 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 s/p clinical remission and now on Rituximab every 2 months , O/P oncologist Dr Ruiz - Epilepsy since , grand mal seizures s/p SEEG placement on 01/23 - 01/27 with localzation of seizure focus to the left temporal lobe, no grand mal seizures this year, follows up with Dr Xie for epilepsy, on Lacosamide, lamotrigine, keppra and clonazepam with confusion regarding his current medications - History of DVT PE, saddle PE 2010 started on coumadin c/b GI bleed in the setting of supratherapeutic INR, IVC filter placement 04/2012 in the setting of GI bleed and fall risk but continued on coumadin till 11/2012 . Recent DVT in the common iliac, femoral and IVC distal to the IVD filter in 01/2013 while off coumadin. Currently on coumadin and no bleeding episodes/ falls Who is transferred from [facility] for the further evaluation of his dizziness which started about 3 -4 days ago and is now resolved Thrombocytopenia 01/12/2013 12/28/2013 Overview: - Not acute - platelet in previous admission 141, todays labs pending - PREVIOUS ANTI PF4 negative - 4 T test score 4- intermediate probability, antiPF4 neg - could be 2/2 lamotrigine vs rituximab (althoug incidence more in RA patients) - no symptoms currently PLAN: - monitor blood counts Urgency of urination 09/10/2012 03/25/2018 Frequency of urination 09/10/2012 8 Duodenitis without mention of hemorrhage 012 03/25/2018 Drug induced neutropenia(288.03) 05/14/2012 03/25/2018 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 Acute gastritis without mention of hemorrhage 03/25/2018 Loss of weight 03/15/2011 03/25/2018 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 Breslow 5.3 mm, Yfn IV, Mitotic rate 5/ sq mm. documented as of this encounter (statuses as of 02/15/2022) [facility]21 History of Past illness Narrative* Problem Noted Date Resolved Date Cellulitis of left lower extremity 09/29/2020 10/06/2021 [place] (acute kidney injury) 09/29/20202021 Functional dyspepsia 02/11/2018 03/25/2018 Overview: Added automatically from request for surgery [id number] History of pulmonary embolism 10/30/2016 History of DVT (deep vein thrombosis) 10/30/2016 03/25/2018 Vertigo 05/04/2014 03/25/2018 Dizziness 03/13/2014 03/25/2018 Overview: History: - discharged from the hospital in February after a surgical EEG electrode placement, normal mentation - went to rehab and siccessfully completed rehab for 4 weeks - reached home appx 1 week back - per patient, there was some confusion regarding which anti epileptic medications he was supposed to be on. Noticed increased diziness since about 3 days back.Did not miss any of his medication doses/ no aura/ no tonic clonic movements/ no falls/ no focal weakness. Called up Dr Xie (his neurologist) and was asked to go to the ED. 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 and transferred to the [facility] for further evaluation - no complains today other than nausea - Tried calling his pharmacy in the evening to reach them, unable to get a response Assessment: - light headedness secondary to polypharmacy and inadvertent overdose vs subclinical seizures Plan: - symptoms already improved after adjusting medications - Epilepsy/ neurology Follow up after discharge DVT of proximal leg (deep vein thrombosis) 01/2703/25/2018 Calf DVT (deep venous thrombosis) 01/27/2014 03/25/2018 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 pylori infection 11/04/2013 03/25/2018 Obesity 10/06/2013 03/25/2018 Decreased libido 07/22/2013 03/25/2018 History of DVT/PE 01/12/2013 03/25/2018 Overview: - history of saddle PE in 2010 - IVC filter placed in 2011 possible in the setting of increased risk of falls while on coumadin - coumadin use complaicated by GI bleeding in the setting of supratherapeutic INR, warfarin stopped in 11/2012 - Repeat DVT involving common iliac/femoral and IVD distal to the filter in 01/2013 while off coumadin, restarted on coumadin - Currently sub therapeutic on coumadin PLAN: -Increase coumadin to 7.5 mg daily - continue coumadin for life in the setting of PE Continue to bridge with lovenox as INR subtherapeutic. 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 s/p clinical remission and now on Rituximab every 2 months , O/P oncologist Dr Ruiz - Epilepsy since , grand mal seizures s/p SEEG placement on 01/23 - 01/27 with localzation of seizure focus to the left temporal lobe, no grand mal seizures this year, follows up with Dr Xie for epilepsy, on Lacosamide, lamotrigine, keppra and clonazepam with confusion regarding his current medications - History of DVT PE, saddle PE 2010 started on coumadin c/b GI bleed in the setting of supratherapeutic INR, IVC filter placement 04/2012 in the setting of GI bleed and fall risk but continued on coumadin till 11/2012 . Recent DVT in the common iliac, femoral and IVC distal to the IVD filter in 01/2013 while off coumadin. Currently on coumadin and no bleeding episodes/ falls Who is transferred from [facility] for the further evaluation of his dizziness which started about 3 -4 days ago and is now resolved Thrombocytopenia 01/12/2013 12/28/2013 Overview: - Not acute - platelet in previous admission 141, todays labs pending - PREVIOUS ANTI PF4 negative - 4 T test score 4- intermediate probability, antiPF4 neg - could be 2/2 lamotrigine vs rituximab (althoug incidence more in RA patients) - no symptoms currently PLAN: - monitor blood counts Urgency of urination 09/10/2012 03/25/2018 Frequency of urination 09/10/2012 8 Duodenitis without mention of hemorrhage 012 03/25/2018 Drug induced neutropenia(288.03) 05/14/2012 03/25/2018 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 Breslow 5.3 mm, Yfn IV, Mitotic rate 5/ sq mm. documented as of this encounter (statuses as of 02/20/2022) [facility] History of Past illness Narrative* Problem Noted Date Resolved Date Cellulitis of left lower extremity 09/29/2020 10/06/2021 [place] (acute kidney injury) 09/29/20202021 Functional dyspepsia 02/11/2018 03/25/2018 Overview: Added automatically from request for surgery [id number] History of pulmonary embolism 10/30/2016 History of DVT (deep vein thrombosis) 10/30/2016 03/25/2018 Vertigo 05/04/2014 03/25/2018 Dizziness 03/13/2014 03/25/2018 Overview: History: - discharged from the hospital in February after a surgical EEG electrode placement, normal mentation - went to rehab and siccessfully completed rehab for 4 weeks - reached home appx 1 week back - per patient, there was some confusion regarding which anti epileptic medications he was supposed to be on. Noticed increased diziness since about 3 days back.Did not miss any of his medication doses/ no aura/ no tonic clonic movements/ no falls/ no focal weakness. Called up Dr Xie (his neurologist) and was asked to go to the ED. 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 and transferred to the [facility] for further evaluation - no complains today other than nausea - Tried calling his pharmacy in the evening to reach them, unable to get a response Assessment: - light headedness secondary to polypharmacy and inadvertent overdose vs subclinical seizures Plan: - symptoms already improved after adjusting medications - Epilepsy/ neurology Follow up after discharge DVT of proximal leg (deep vein thrombosis) 01/2703/25/2018 Calf DVT (deep venous thrombosis) 01/27/2014 03/25/2018 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 pylori infection 11/04/2013 03/25/2018 Obesity 10/06/2013 03/25/2018 Decreased libido 07/22/2013 03/25/2018 History of DVT/PE 01/12/2013 03/25/2018 Overview: - history of saddle PE in 2010 - IVC filter placed in 2011 possible in the setting of increased risk of falls while on coumadin - coumadin use complaicated by GI bleeding in the setting of supratherapeutic INR, warfarin stopped in 11/2012 - Repeat DVT involving common iliac/femoral and IVD distal to the filter in 01/2013 while off coumadin, restarted on coumadin - Currently sub therapeutic on coumadin PLAN: -Increase coumadin to 7.5 mg daily - continue coumadin for life in the setting of PE Continue to bridge with lovenox as INR subtherapeutic. 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 s/p clinical remission and now on Rituximab every 2 months , O/P oncologist Dr Ruiz - Epilepsy since , grand mal seizures s/p SEEG placement on 01/23 - 01/27 with localzation of seizure focus to the left temporal lobe, no grand mal seizures this year, follows up with Dr Xie for epilepsy, on Lacosamide, lamotrigine, keppra and clonazepam with confusion regarding his current medications - History of DVT PE, saddle PE 2010 started on coumadin c/b GI bleed in the setting of supratherapeutic INR, IVC filter placement 04/2012 in the setting of GI bleed and fall risk but continued on coumadin till 11/2012 . Recent DVT in the common iliac, femoral and IVC distal to the IVD filter in 01/2013 while off coumadin. Currently on coumadin and no bleeding episodes/ falls Who is transferred from [facility] for the further evaluation of his dizziness which started about 3 -4 days ago and is now resolved Thrombocytopenia 01/12/2013 12/28/2013 Overview: - Not acute - platelet in previous admission 141, todays labs pending - PREVIOUS ANTI PF4 negative - 4 T test score 4- intermediate probability, antiPF4 neg - could be 2/2 lamotrigine vs rituximab (althoug incidence more in RA patients) - no symptoms currently PLAN: - monitor blood counts Urgency of urination 09/10/2012 03/25/2018 Frequency of urination 09/10/2012 8 Duodenitis without mention of hemorrhage 012 03/25/2018 Drug induced neutropenia(288.03) 05/14/2012 03/25/2018 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 Acute gastritis without mention of hemorrhage 03/25/2018 Loss of weight 03/15/2011 03/25/2018 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 Breslow 5.3 mm, Yfn IV, Mitotic rate 5/ sq mm. documented as of this encounter (statuses as of 02/23/2022) [facility]02-24-2021 History of Past illness Narrative* Problem Noted Date Resolved Date Cellulitis of left lower extremity 09/29/2020 10/06/2021 [place] (acute kidney injury) 09/29/20202021 Functional dyspepsia 02/11/2018 03/25/2018 Overview: Added automatically from request for surgery [id number] History of pulmonary embolism 10/30/2016 History of DVT (deep vein thrombosis) 10/30/2016 03/25/2018 Vertigo 05/04/2014 03/25/2018 Dizziness 03/13/2014 03/25/2018 Overview: History: - discharged from the hospital in February after a surgical EEG electrode placement, normal mentation - went to rehab and siccessfully completed rehab for 4 weeks - reached home appx 1 week back - per patient, there was some confusion regarding which anti epileptic medications he was supposed to be on. Noticed increased diziness since about 3 days back.Did not miss any of his medication doses/ no aura/ no tonic clonic movements/ no falls/ no focal weakness. Called up Dr Xie (his neurologist) and was asked to go to the ED. 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 and transferred to the [facility] for further evaluation - no complains today other than nausea - Tried calling his pharmacy in the evening to reach them, unable to get a response Assessment: - light headedness secondary to polypharmacy and inadvertent overdose vs subclinical seizures Plan: - symptoms already improved after adjusting medications - Epilepsy/ neurology Follow up after discharge DVT of proximal leg (deep vein thrombosis) 01/2703/25/2018 Calf DVT (deep venous thrombosis) 01/27/2014 03/25/2018 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 pylori infection 11/04/2013 03/25/2018 Obesity 10/06/2013 03/25/2018 Decreased libido 07/22/2013 03/25/2018 History of DVT/PE 01/12/2013 03/25/2018 Overview: - history of saddle PE in 2010 - IVC filter placed in 2011 possible in the setting of increased risk of falls while on coumadin - coumadin use complaicated by GI bleeding in the setting of supratherapeutic INR, warfarin stopped in 11/2012 - Repeat DVT involving common iliac/femoral and IVD distal to the filter in 01/2013 while off coumadin, restarted on coumadin - Currently sub therapeutic on coumadin PLAN: -Increase coumadin to 7.5 mg daily - continue coumadin for life in the setting of PE Continue to bridge with lovenox as INR subtherapeutic. 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 s/p clinical remission and now on Rituximab every 2 months , O/P oncologist Dr Ruiz - Epilepsy since , grand mal seizures s/p SEEG placement on 01/23 - 01/27 with localzation of seizure focus to the left temporal lobe, no grand mal seizures this year, follows up with Dr Xie for epilepsy, on Lacosamide, lamotrigine, keppra and clonazepam with confusion regarding his current medications - History of DVT PE, saddle PE 2010 started on coumadin c/b GI bleed in the setting of supratherapeutic INR, IVC filter placement 04/2012 in the setting of GI bleed and fall risk but continued on coumadin till 11/2012 . Recent DVT in the common iliac, femoral and IVC distal to the IVD filter in 01/2013 while off coumadin. Currently on coumadin and no bleeding episodes/ falls Who is transferred from [facility] for the further evaluation of his dizziness which started about 3 -4 days ago and is now resolved Thrombocytopenia 01/12/2013 12/28/2013 Overview: - Not acute - platelet in previous admission 141, todays labs pending - PREVIOUS ANTI PF4 negative - 4 T test score 4- intermediate probability, antiPF4 neg - could be 2/2 lamotrigine vs rituximab (althoug incidence more in RA patients) - no symptoms currently PLAN: - monitor blood counts Urgency of urination 09/10/2012 03/25/2018 Frequency of urination 09/10/2012 8 Duodenitis without mention of hemorrhage 012 03/25/2018 Drug induced neutropenia(288.03) 05/14/2012 03/25/2018 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 Acute gastritis without mention of hemorrhage 03/25/2018 Loss of weight 03/15/2011 03/25/2018 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 Breslow 5.3 mm, Yfn IV, Mitotic rate 5/ sq mm. documented as of this encounter (statuses as of 02/28/2022) [facility]02-[facility]21 History of Past illness Narrative* Problem Noted Date Resolved Date Cellulitis of left lower extremity 09/29/2020 10/06/2021 [place] (acute kidney injury) 09/29/20202021 Functional dyspepsia 02/11/2018 03/25/2018 Overview: Added automatically from request for surgery [id number] History of pulmonary embolism 10/30/2016 History of DVT (deep vein thrombosis) 10/30/2016 03/25/2018 Vertigo 05/04/2014 03/25/2018 Dizziness 03/13/2014 03/25/2018 Overview: History: - discharged from the hospital in February after a surgical EEG electrode placement, normal mentation - went to rehab and siccessfully completed rehab for 4 weeks - reached home appx 1 week back - per patient, there was some confusion regarding which anti epileptic medications he was supposed to be on. Noticed increased diziness since about 3 days back.Did not miss any of his medication doses/ no aura/ no tonic clonic movements/ no falls/ no focal weakness. Called up Dr Xie (his neurologist) and was asked to go to the ED. 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 and transferred to the [facility] for further evaluation - no complains today other than nausea - Tried calling his pharmacy in the evening to reach them, unable to get a response Assessment: - light headedness secondary to polypharmacy and inadvertent overdose vs subclinical seizures Plan: - symptoms already improved after adjusting medications - Epilepsy/ neurology Follow up after discharge DVT of proximal leg (deep vein thrombosis) 01/2703/25/2018 Calf DVT (deep venous thrombosis) 01/27/2014 03/25/2018 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 pylori infection 11/04/2013 03/25/2018 Obesity 10/06/2013 03/25/2018 Decreased libido 07/22/2013 03/25/2018 History of DVT/PE 01/12/2013 03/25/2018 Overview: - history of saddle PE in 2010 - IVC filter placed in 2011 possible in the setting of increased risk of falls while on coumadin - coumadin use complaicated by GI bleeding in the setting of supratherapeutic INR, warfarin stopped in 11/2012 - Repeat DVT involving common iliac/femoral and IVD distal to the filter in 01/2013 while off coumadin, restarted on coumadin - Currently sub therapeutic on coumadin PLAN: -Increase coumadin to 7.5 mg daily - continue coumadin for life in the setting of PE Continue to bridge with lovenox as INR subtherapeutic. 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 s/p clinical remission and now on Rituximab every 2 months , O/P oncologist Dr Ruiz - Epilepsy since , grand mal seizures s/p SEEG placement on 01/23 - 01/27 with localzation of seizure focus to the left temporal lobe, no grand mal seizures this year, follows up with Dr Xie for epilepsy, on Lacosamide, lamotrigine, keppra and clonazepam with confusion regarding his current medications - History of DVT PE, saddle PE 2010 started on coumadin c/b GI bleed in the setting of supratherapeutic INR, IVC filter placement 04/2012 in the setting of GI bleed and fall risk but continued on coumadin till 11/2012 . Recent DVT in the common iliac, femoral and IVC distal to the IVD filter in 01/2013 while off coumadin. Currently on coumadin and no bleeding episodes/ falls Who is transferred from [facility] for the further evaluation of his dizziness which started about 3 -4 days ago and is now resolved Thrombocytopenia 01/12/2013 12/28/2013 Overview: - Not acute - platelet in previous admission 141, todays labs pending - PREVIOUS ANTI PF4 negative - 4 T test score 4- intermediate probability, antiPF4 neg - could be 2/2 lamotrigine vs rituximab (althoug incidence more in RA patients) - no symptoms currently PLAN: - monitor blood counts Urgency of urination 09/10/2012 03/25/2018 Frequency of urination 09/10/2012 8 Duodenitis without mention of hemorrhage 012 03/25/2018 Drug induced neutropenia(288.03) 05/14/2012 03/25/2018 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 Acute gastritis without mention of hemorrhage 03/25/2018 Loss of weight 03/15/2011 03/25/2018 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 Breslow 5.3 mm, Yfn IV, Mitotic rate 5/ sq mm. documented as of this encounter (statuses as of 04/26/2022) [facility] History of Past illness Narrative* Problem Noted Date Resolved Date Cellulitis of left lower extremity 09/29/2020 10/06/2021 [place] (acute kidney injury) 09/29/20202021 Functional dyspepsia 02/11/2018 03/25/2018 Overview: Added automatically from request for surgery [id number] History of pulmonary embolism 10/30/2016 History of DVT (deep vein thrombosis) 10/30/2016 03/25/2018 Vertigo 05/04/2014 03/25/2018 Dizziness 03/13/2014 03/25/2018 Overview: History: - discharged from the hospital in February after a surgical EEG electrode placement, normal mentation - went to rehab and siccessfully completed rehab for 4 weeks - reached home appx 1 week back - per patient, there was some confusion regarding which anti epileptic medications he was supposed to be on. Noticed increased diziness since about 3 days back.Did not miss any of his medication doses/ no aura/ no tonic clonic movements/ no falls/ no focal weakness. Called up Dr Xie (his neurologist) and was asked to go to the ED. 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 and transferred to the [facility] for further evaluation - no complains today other than nausea - Tried calling his pharmacy in the evening to reach them, unable to get a response Assessment: - light headedness secondary to polypharmacy and inadvertent overdose vs subclinical seizures Plan: - symptoms already improved after adjusting medications - Epilepsy/ neurology Follow up after discharge DVT of proximal leg (deep vein thrombosis) 01/2703/25/2018 Calf DVT (deep venous thrombosis) 01/27/2014 03/25/2018 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 pylori infection 11/04/2013 03/25/2018 Obesity 10/06/2013 03/25/2018 Decreased libido 07/22/2013 03/25/2018 History of DVT/PE 01/12/2013 03/25/2018 Overview: - history of saddle PE in 2010 - IVC filter placed in 2011 possible in the setting of increased risk of falls while on coumadin - coumadin use complaicated by GI bleeding in the setting of supratherapeutic INR, warfarin stopped in 11/2012 - Repeat DVT involving common iliac/femoral and IVD distal to the filter in 01/2013 while off coumadin, restarted on coumadin - Currently sub therapeutic on coumadin PLAN: -Increase coumadin to 7.5 mg daily - continue coumadin for life in the setting of PE Continue to bridge with lovenox as INR subtherapeutic. 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 s/p clinical remission and now on Rituximab every 2 months , O/P oncologist Dr Ruiz - Epilepsy since , grand mal seizures s/p SEEG placement on 01/23 - 01/27 with localzation of seizure focus to the left temporal lobe, no grand mal seizures this year, follows up with Dr Xie for epilepsy, on Lacosamide, lamotrigine, keppra and clonazepam with confusion regarding his current medications - History of DVT PE, saddle PE 2010 started on coumadin c/b GI bleed in the setting of supratherapeutic INR, IVC filter placement 04/2012 in the setting of GI bleed and fall risk but continued on coumadin till 11/2012 . Recent DVT in the common iliac, femoral and IVC distal to the IVD filter in 01/2013 while off coumadin. Currently on coumadin and no bleeding episodes/ falls Who is transferred from [facility] for the further evaluation of his dizziness which started about 3 -4 days ago and is now resolved Thrombocytopenia 01/12/2013 12/28/2013 Overview: - Not acute - platelet in previous admission 141, todays labs pending - PREVIOUS ANTI PF4 negative - 4 T test score 4- intermediate probability, antiPF4 neg - could be 2/2 lamotrigine vs rituximab (althoug incidence more in RA patients) - no symptoms currently PLAN: - monitor blood counts Urgency of urination 09/10/2012 03/25/2018 Frequency of urination 09/10/2012 8 Duodenitis without mention of hemorrhage 012 03/25/2018 Drug induced neutropenia(288.03) 05/14/2012 03/25/2018 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 Acute gastritis without mention of hemorrhage 03/25/2018 Loss of weight 03/15/2011 03/25/2018 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 Breslow 5.3 mm, Yfn IV, Mitotic rate 5/ sq mm. documented as of this encounter (statuses as of 05/10/2022) [facility] History of Past illness Narrative* Problem Noted Date Resolved Date Cellulitis of left lower extremity 09/29/2020 10/06/2021 [place] (acute kidney injury) 09/29/20202021 Functional dyspepsia 02/11/2018 03/25/2018 Overview: Added automatically from request for surgery [id number] History of pulmonary embolism 10/30/2016 History of DVT (deep vein thrombosis) 10/30/2016 03/25/2018 Vertigo 05/04/2014 03/25/2018 Dizziness 03/13/2014 03/25/2018 Overview: History: - discharged from the hospital in February after a surgical EEG electrode placement, normal mentation - went to rehab and siccessfully completed rehab for 4 weeks - reached home appx 1 week back - per patient, there was some confusion regarding which anti epileptic medications he was supposed to be on. Noticed increased diziness since about 3 days back.Did not miss any of his medication doses/ no aura/ no tonic clonic movements/ no falls/ no focal weakness. Called up Dr Xie (his neurologist) and was asked to go to the ED. 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 and transferred to the [facility] for further evaluation - no complains today other than nausea - Tried calling his pharmacy in the evening to reach them, unable to get a response Assessment: - light headedness secondary to polypharmacy and inadvertent overdose vs subclinical seizures Plan: - symptoms already improved after adjusting medications - Epilepsy/ neurology Follow up after discharge DVT of proximal leg (deep vein thrombosis) 01/2703/25/2018 Calf DVT (deep venous thrombosis) 01/27/2014 03/25/2018 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 pylori infection 11/04/2013 03/25/2018 Obesity 10/06/2013 03/25/2018 Decreased libido 07/22/2013 03/25/2018 History of DVT/PE 01/12/2013 03/25/2018 Overview: - history of saddle PE in 2010 - IVC filter placed in 2011 possible in the setting of increased risk of falls while on coumadin - coumadin use complaicated by GI bleeding in the setting of supratherapeutic INR, warfarin stopped in 11/2012 - Repeat DVT involving common iliac/femoral and IVD distal to the filter in 01/2013 while off coumadin, restarted on coumadin - Currently sub therapeutic on coumadin PLAN: -Increase coumadin to 7.5 mg daily - continue coumadin for life in the setting of PE Continue to bridge with lovenox as INR subtherapeutic. 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 s/p clinical remission and now on Rituximab every 2 months , O/P oncologist Dr Ruiz - Epilepsy since , grand mal seizures s/p SEEG placement on 01/23 - 01/27 with localzation of seizure focus to the left temporal lobe, no grand mal seizures this year, follows up with Dr Xie for epilepsy, on Lacosamide, lamotrigine, keppra and clonazepam with confusion regarding his current medications - History of DVT PE, saddle PE 2010 started on coumadin c/b GI bleed in the setting of supratherapeutic INR, IVC filter placement 04/2012 in the setting of GI bleed and fall risk but continued on coumadin till 11/2012 . Recent DVT in the common iliac, femoral and IVC distal to the IVD filter in 01/2013 while off coumadin. Currently on coumadin and no bleeding episodes/ falls Who is transferred from [facility] for the further evaluation of his dizziness which started about 3 -4 days ago and is now resolved Thrombocytopenia 01/12/2013 12/28/2013 Overview: - Not acute - platelet in previous admission 141, todays labs pending - PREVIOUS ANTI PF4 negative - 4 T test score 4- intermediate probability, antiPF4 neg - could be 2/2 lamotrigine vs rituximab (althoug incidence more in RA patients) - no symptoms currently PLAN: - monitor blood counts Urgency of urination 09/10/2012 03/25/2018 Frequency of urination 09/10/2012 8 Duodenitis without mention of hemorrhage 012 03/25/2018 Drug induced neutropenia(288.03) 05/14/2012 03/25/2018 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 Breslow 5.3 mm, Yfn IV, Mitotic rate 5/ sq mm. documented as of this encounter (statuses as of 05/12/2022) [facility] History of Past illness Narrative* Problem Noted Date Resolved Date Cellulitis of left lower extremity 09/29/2020 10/06/2021 [place] (acute kidney injury) 09/29/20202021 Functional dyspepsia 02/11/2018 03/25/2018 Overview: Added automatically from request for surgery [id number] History of pulmonary embolism 10/30/2016 History of DVT (deep vein thrombosis) 10/30/2016 03/25/2018 Vertigo 05/04/2014 03/25/2018 Dizziness 03/13/2014 03/25/2018 Overview: History: - discharged from the hospital in February after a surgical EEG electrode placement, normal mentation - went to rehab and siccessfully completed rehab for 4 weeks - reached home appx 1 week back - per patient, there was some confusion regarding which anti epileptic medications he was supposed to be on. Noticed increased diziness since about 3 days back.Did not miss any of his medication doses/ no aura/ no tonic clonic movements/ no falls/ no focal weakness. Called up Dr Xie (his neurologist) and was asked to go to the ED. 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 and transferred to the [facility] for further evaluation - no complains today other than nausea - Tried calling his pharmacy in the evening to reach them, unable to get a response Assessment: - light headedness secondary to polypharmacy and inadvertent overdose vs subclinical seizures Plan: - symptoms already improved after adjusting medications - Epilepsy/ neurology Follow up after discharge DVT of proximal leg (deep vein thrombosis) 01/2703/25/2018 Calf DVT (deep venous thrombosis) 01/27/2014 03/25/2018 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 pylori infection 11/04/2013 03/25/2018 Obesity 10/06/2013 03/25/2018 Decreased libido 07/22/2013 03/25/2018 History of DVT/PE 01/12/2013 03/25/2018 Overview: - history of saddle PE in 2010 - IVC filter placed in 2011 possible in the setting of increased risk of falls while on coumadin - coumadin use complaicated by GI bleeding in the setting of supratherapeutic INR, warfarin stopped in 11/2012 - Repeat DVT involving common iliac/femoral and IVD distal to the filter in 01/2013 while off coumadin, restarted on coumadin - Currently sub therapeutic on coumadin PLAN: -Increase coumadin to 7.5 mg daily - continue coumadin for life in the setting of PE Continue to bridge with lovenox as INR subtherapeutic. 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 s/p clinical remission and now on Rituximab every 2 months , O/P oncologist Dr Ruiz - Epilepsy since , grand mal seizures s/p SEEG placement on 01/23 - 01/27 with localzation of seizure focus to the left temporal lobe, no grand mal seizures this year, follows up with Dr Xie for epilepsy, on Lacosamide, lamotrigine, keppra and clonazepam with confusion regarding his current medications - History of DVT PE, saddle PE 2010 started on coumadin c/b GI bleed in the setting of supratherapeutic INR, IVC filter placement 04/2012 in the setting of GI bleed and fall risk but continued on coumadin till 11/2012 . Recent DVT in the common iliac, femoral and IVC distal to the IVD filter in 01/2013 while off coumadin. Currently on coumadin and no bleeding episodes/ falls Who is transferred from [facility] for the further evaluation of his dizziness which started about 3 -4 days ago and is now resolved Thrombocytopenia 01/12/2013 12/28/2013 Overview: - Not acute - platelet in previous admission 141, todays labs pending - PREVIOUS ANTI PF4 negative - 4 T test score 4- intermediate probability, antiPF4 neg - could be 2/2 lamotrigine vs rituximab (althoug incidence more in RA patients) - no symptoms currently PLAN: - monitor blood counts Urgency of urination 09/10/2012 03/25/2018 Frequency of urination 09/10/2012 8 Duodenitis without mention of hemorrhage 012 03/25/2018 Drug induced neutropenia(288.03) 05/14/2012 03/25/2018 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 Breslow 5.3 mm, Yfn IV, Mitotic rate 5/ sq mm. documented as of this encounter (statuses as of 05/23/2022) [facility]02-24-2021 History of Past illness Narrative* Problem Noted Date Resolved Date Cellulitis of left lower extremity 09/29/2020 10/06/2021 [place] (acute kidney injury) 09/29/20202021 Functional dyspepsia 02/11/2018 03/25/2018 Overview: Added automatically from request for surgery [id number] History of pulmonary embolism 10/30/2016 History of DVT (deep vein thrombosis) 10/30/2016 03/25/2018 Vertigo 05/04/2014 03/25/2018 Dizziness 03/13/2014 03/25/2018 Overview: History: - discharged from the hospital in February after a surgical EEG electrode placement, normal mentation - went to rehab and siccessfully completed rehab for 4 weeks - reached home appx 1 week back - per patient, there was some confusion regarding which anti epileptic medications he was supposed to be on. Noticed increased diziness since about 3 days back.Did not miss any of his medication doses/ no aura/ no tonic clonic movements/ no falls/ no focal weakness. Called up Dr Xie (his neurologist) and was asked to go to the ED. 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 and transferred to the [facility] for further evaluation - no complains today other than nausea - Tried calling his pharmacy in the evening to reach them, unable to get a response Assessment: - light headedness secondary to polypharmacy and inadvertent overdose vs subclinical seizures Plan: - symptoms already improved after adjusting medications - Epilepsy/ neurology Follow up after discharge DVT of proximal leg (deep vein thrombosis) 01/2703/25/2018 Calf DVT (deep venous thrombosis) 01/27/2014 03/25/2018 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 pylori infection 11/04/2013 03/25/2018 Obesity 10/06/2013 03/25/2018 Decreased libido 07/22/2013 03/25/2018 History of DVT/PE 01/12/2013 03/25/2018 Overview: - history of saddle PE in 2010 - IVC filter placed in 2011 possible in the setting of increased risk of falls while on coumadin - coumadin use complaicated by GI bleeding in the setting of supratherapeutic INR, warfarin stopped in 11/2012 - Repeat DVT involving common iliac/femoral and IVD distal to the filter in 01/2013 while off coumadin, restarted on coumadin - Currently sub therapeutic on coumadin PLAN: -Increase coumadin to 7.5 mg daily - continue coumadin for life in the setting of PE Continue to bridge with lovenox as INR subtherapeutic. 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 s/p clinical remission and now on Rituximab every 2 months , O/P oncologist Dr Ruiz - Epilepsy since , grand mal seizures s/p SEEG placement on 01/23 - 01/27 with localzation of seizure focus to the left temporal lobe, no grand mal seizures this year, follows up with Dr Xie for epilepsy, on Lacosamide, lamotrigine, keppra and clonazepam with confusion regarding his current medications - History of DVT PE, saddle PE 2010 started on coumadin c/b GI bleed in the setting of supratherapeutic INR, IVC filter placement 04/2012 in the setting of GI bleed and fall risk but continued on coumadin till 11/2012 . Recent DVT in the common iliac, femoral and IVC distal to the IVD filter in 01/2013 while off coumadin. Currently on coumadin and no bleeding episodes/ falls Who is transferred from [facility] for the further evaluation of his dizziness which started about 3 -4 days ago and is now resolved Thrombocytopenia 01/12/2013 12/28/2013 Overview: - Not acute - platelet in previous admission 141, todays labs pending - PREVIOUS ANTI PF4 negative - 4 T test score 4- intermediate probability, antiPF4 neg - could be 2/2 lamotrigine vs rituximab (althoug incidence more in RA patients) - no symptoms currently PLAN: - monitor blood counts Urgency of urination 09/10/2012 03/25/2018 Frequency of urination 09/10/2012 8 Duodenitis without mention of hemorrhage 012 03/25/2018 Drug induced neutropenia(288.03) 05/14/2012 03/25/2018 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 Breslow 5.3 mm, Yfn IV, Mitotic rate 5/ sq mm. documented as of this encounter (statuses as of 05/25/2022) [facility] History of Past illness Narrative* Problem Noted Date Resolved Date Cellulitis of left lower extremity 09/29/2020 10/06/2021 [place] (acute kidney injury) 09/29/20202021 Functional dyspepsia 02/11/2018 03/25/2018 Overview: Added automatically from request for surgery [id number] History of pulmonary embolism 10/30/2016 History of DVT (deep vein thrombosis) 10/30/2016 03/25/2018 Vertigo 05/04/2014 03/25/2018 Dizziness 03/13/2014 03/25/2018 Overview: History: - discharged from the hospital in February after a surgical EEG electrode placement, normal mentation - went to rehab and siccessfully completed rehab for 4 weeks - reached home appx 1 week back - per patient, there was some confusion regarding which anti epileptic medications he was supposed to be on. Noticed increased diziness since about 3 days back.Did not miss any of his medication doses/ no aura/ no tonic clonic movements/ no falls/ no focal weakness. Called up Dr Xie (his neurologist) and was asked to go to the ED. 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 and transferred to the [facility] for further evaluation - no complains today other than nausea - Tried calling his pharmacy in the evening to reach them, unable to get a response Assessment: - light headedness secondary to polypharmacy and inadvertent overdose vs subclinical seizures Plan: - symptoms already improved after adjusting medications - Epilepsy/ neurology Follow up after discharge DVT of proximal leg (deep vein thrombosis) 01/2703/25/2018 Calf DVT (deep venous thrombosis) 01/27/2014 03/25/2018 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 pylori infection 11/04/2013 03/25/2018 Obesity 10/06/2013 03/25/2018 Decreased libido 07/22/2013 03/25/2018 History of DVT/PE 01/12/2013 03/25/2018 Overview: - history of saddle PE in 2010 - IVC filter placed in 2011 possible in the setting of increased risk of falls while on coumadin - coumadin use complaicated by GI bleeding in the setting of supratherapeutic INR, warfarin stopped in 11/2012 - Repeat DVT involving common iliac/femoral and IVD distal to the filter in 01/2013 while off coumadin, restarted on coumadin - Currently sub therapeutic on coumadin PLAN: -Increase coumadin to 7.5 mg daily - continue coumadin for life in the setting of PE Continue to bridge with lovenox as INR subtherapeutic. 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 s/p clinical remission and now on Rituximab every 2 months , O/P oncologist Dr Ruiz - Epilepsy since , grand mal seizures s/p SEEG placement on 01/23 - 01/27 with localzation of seizure focus to the left temporal lobe, no grand mal seizures this year, follows up with Dr Xie for epilepsy, on Lacosamide, lamotrigine, keppra and clonazepam with confusion regarding his current medications - History of DVT PE, saddle PE 2010 started on coumadin c/b GI bleed in the setting of supratherapeutic INR, IVC filter placement 04/2012 in the setting of GI bleed and fall risk but continued on coumadin till 11/2012 . Recent DVT in the common iliac, femoral and IVC distal to the IVD filter in 01/2013 while off coumadin. Currently on coumadin and no bleeding episodes/ falls Who is transferred from [facility] for the further evaluation of his dizziness which started about 3 -4 days ago and is now resolved Thrombocytopenia 01/12/2013 12/28/2013 Overview: - Not acute - platelet in previous admission 141, todays labs pending - PREVIOUS ANTI PF4 negative - 4 T test score 4- intermediate probability, antiPF4 neg - could be 2/2 lamotrigine vs rituximab (althoug incidence more in RA patients) - no symptoms currently PLAN: - monitor blood counts Urgency of urination 09/10/2012 03/25/2018 Frequency of urination 09/10/2012 8 Duodenitis without mention of hemorrhage 012 03/25/2018 Drug induced neutropenia(288.03) 05/14/2012 03/25/2018 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 Breslow 5.3 mm, Yfn IV, Mitotic rate 5/ sq mm. documented as of this encounter (statuses as of 05/27/2022) [facility] History of Past illness Narrative* Problem Noted Date Resolved Date Cellulitis of left lower extremity 09/29/2020 10/06/2021 [place] (acute kidney injury) 09/29/20202021 Functional dyspepsia 02/11/2018 03/25/2018 Overview: Added automatically from request for surgery [id number] History of pulmonary embolism 10/30/2016 History of DVT (deep vein thrombosis) 10/30/2016 03/25/2018 Vertigo 05/04/2014 03/25/2018 Dizziness 03/13/2014 03/25/2018 Overview: History: - discharged from the hospital in February after a surgical EEG electrode placement, normal mentation - went to rehab and siccessfully completed rehab for 4 weeks - reached home appx 1 week back - per patient, there was some confusion regarding which anti epileptic medications he was supposed to be on. Noticed increased diziness since about 3 days back.Did not miss any of his medication doses/ no aura/ no tonic clonic movements/ no falls/ no focal weakness. Called up Dr Xie (his neurologist) and was asked to go to the ED. 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 and transferred to the [facility] for further evaluation - no complains today other than nausea - Tried calling his pharmacy in the evening to reach them, unable to get a response Assessment: - light headedness secondary to polypharmacy and inadvertent overdose vs subclinical seizures Plan: - symptoms already improved after adjusting medications - Epilepsy/ neurology Follow up after discharge DVT of proximal leg (deep vein thrombosis) 01/2703/25/2018 Calf DVT (deep venous thrombosis) 01/27/2014 03/25/2018 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 pylori infection 11/04/2013 03/25/2018 Obesity 10/06/2013 03/25/2018 Decreased libido 07/22/2013 03/25/2018 History of DVT/PE 01/12/2013 03/25/2018 Overview: - history of saddle PE in 2010 - IVC filter placed in 2011 possible in the setting of increased risk of falls while on coumadin - coumadin use complaicated by GI bleeding in the setting of supratherapeutic INR, warfarin stopped in 11/2012 - Repeat DVT involving common iliac/femoral and IVD distal to the filter in 01/2013 while off coumadin, restarted on coumadin - Currently sub therapeutic on coumadin PLAN: -Increase coumadin to 7.5 mg daily - continue coumadin for life in the setting of PE Continue to bridge with lovenox as INR subtherapeutic. 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 s/p clinical remission and now on Rituximab every 2 months , O/P oncologist Dr Riuz - Epilepsy since , grand mal seizures s/p SEEG placement on 01/23 - 01/27 with localzation of seizure focus to the left temporal lobe, no grand mal seizures this year, follows up with Dr Xie for epilepsy, on Lacosamide, lamotrigine, keppra and clonazepam with confusion regarding his current medications - History of DVT PE, saddle PE 2010 started on coumadin c/b GI bleed in the setting of supratherapeutic INR, IVC filter placement 04/2012 in the setting of GI bleed and fall risk but continued on coumadin till 11/2012 . Recent DVT in the common iliac, femoral and IVC distal to the IVD filter in 01/2013 while off coumadin. Currently on coumadin and no bleeding episodes/ falls Who is transferred from [facility] for the further evaluation of his dizziness which started about 3 -4 days ago and is now resolved Thrombocytopenia 01/12/2013 12/28/2013 Overview: - Not acute - platelet in previous admission 141, todays labs pending - PREVIOUS ANTI PF4 negative - 4 T test score 4- intermediate probability, antiPF4 neg - could be 2/2 lamotrigine vs rituximab (althoug incidence more in RA patients) - no symptoms currently PLAN: - monitor blood counts Urgency of urination 09/10/2012 03/25/2018 Frequency of urination 09/10/2012 8 Duodenitis without mention of hemorrhage 012 03/25/2018 Drug induced neutropenia(288.03) 05/14/2012 03/25/2018 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 Breslow 5.3 mm, Yfn IV, Mitotic rate 5/ sq mm. documented as of this encounter (statuses as of 05/27/2022) [facility] History of Past illness Narrative* Problem Noted Date Resolved Date Cellulitis of left lower extremity 09/29/2020 10/06/2021 [place] (acute kidney injury) 09/29/20202021 Functional dyspepsia 02/11/2018 03/25/2018 Overview: Added automatically from request for surgery [id number] History of pulmonary embolism 10/30/2016 History of DVT (deep vein thrombosis) 10/30/2016 03/25/2018 Vertigo 05/04/2014 03/25/2018 Dizziness 03/13/2014 03/25/2018 Overview: History: - discharged from the hospital in February after a surgical EEG electrode placement, normal mentation - went to rehab and siccessfully completed rehab for 4 weeks - reached home appx 1 week back - per patient, there was some confusion regarding which anti epileptic medications he was supposed to be on. Noticed increased diziness since about 3 days back.Did not miss any of his medication doses/ no aura/ no tonic clonic movements/ no falls/ no focal weakness. Called up Dr Xie (his neurologist) and was asked to go to the ED. 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 and transferred to the [facility] for further evaluation - no complains today other than nausea - Tried calling his pharmacy in the evening to reach them, unable to get a response Assessment: - light headedness secondary to polypharmacy and inadvertent overdose vs subclinical seizures Plan: - symptoms already improved after adjusting medications - Epilepsy/ neurology Follow up after discharge DVT of proximal leg (deep vein thrombosis) 01/2703/25/2018 Calf DVT (deep venous thrombosis) 01/27/2014 03/25/2018 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 pylori infection 11/04/2013 03/25/2018 Obesity 10/06/2013 03/25/2018 Decreased libido 07/22/2013 03/25/2018 History of DVT/PE 01/12/2013 03/25/2018 Overview: - history of saddle PE in 2010 - IVC filter placed in 2011 possible in the setting of increased risk of falls while on coumadin - coumadin use complaicated by GI bleeding in the setting of supratherapeutic INR, warfarin stopped in 11/2012 - Repeat DVT involving common iliac/femoral and IVD distal to the filter in 01/2013 while off coumadin, restarted on coumadin - Currently sub therapeutic on coumadin PLAN: -Increase coumadin to 7.5 mg daily - continue coumadin for life in the setting of PE Continue to bridge with lovenox as INR subtherapeutic. 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 s/p clinical remission and now on Rituximab every 2 months , O/P oncologist Dr Ruiz - Epilepsy since , grand mal seizures s/p SEEG placement on 01/23 - 01/27 with localzation of seizure focus to the left temporal lobe, no grand mal seizures this year, follows up with Dr Xie for epilepsy, on Lacosamide, lamotrigine, keppra and clonazepam with confusion regarding his current medications - History of DVT PE, saddle PE 2010 started on coumadin c/b GI bleed in the setting of supratherapeutic INR, IVC filter placement 04/2012 in the setting of GI bleed and fall risk but continued on coumadin till 11/2012 . Recent DVT in the common iliac, femoral and IVC distal to the IVD filter in 01/2013 while off coumadin. Currently on coumadin and no bleeding episodes/ falls Who is transferred from [facility] for the further evaluation of his dizziness which started about 3 -4 days ago and is now resolved Thrombocytopenia 01/12/2013 12/28/2013 Overview: - Not acute - platelet in previous admission 141, todays labs pending - PREVIOUS ANTI PF4 negative - 4 T test score 4- intermediate probability, antiPF4 neg - could be 2/2 lamotrigine vs rituximab (althoug incidence more in RA patients) - no symptoms currently PLAN: - monitor blood counts Urgency of urination 09/10/2012 03/25/2018 Frequency of urination 09/10/2012 8 Duodenitis without mention of hemorrhage 012 03/25/2018 Drug induced neutropenia(288.03) 05/14/2012 03/25/2018 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 Breslow 5.3 mm, Yfn IV, Mitotic rate 5/ sq mm. documented as of this encounter (statuses as of 05/31/2022) [facility] History of Past illness Narrative* Problem Noted Date Resolved Date Cellulitis of left lower extremity 09/29/2020 10/06/2021 [place] (acute kidney injury) 09/29/20202021 Functional dyspepsia 02/11/2018 03/25/2018 Overview: Added automatically from request for surgery [id number] History of pulmonary embolism 10/30/2016 History of DVT (deep vein thrombosis) 10/30/2016 03/25/2018 Vertigo 05/04/2014 03/25/2018 Dizziness 03/13/2014 03/25/2018 Overview: History: - discharged from the hospital in February after a surgical EEG electrode placement, normal mentation - went to rehab and siccessfully completed rehab for 4 weeks - reached home appx 1 week back - per patient, there was some confusion regarding which anti epileptic medications he was supposed to be on. Noticed increased diziness since about 3 days back.Did not miss any of his medication doses/ no aura/ no tonic clonic movements/ no falls/ no focal weakness. Called up Dr Xie (his neurologist) and was asked to go to the ED. 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 and transferred to the [facility] for further evaluation - no complains today other than nausea - Tried calling his pharmacy in the evening to reach them, unable to get a response Assessment: - light headedness secondary to polypharmacy and inadvertent overdose vs subclinical seizures Plan: - symptoms already improved after adjusting medications - Epilepsy/ neurology Follow up after discharge DVT of proximal leg (deep vein thrombosis) 01/2703/25/2018 Calf DVT (deep venous thrombosis) 01/27/2014 03/25/2018 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 pylori infection 11/04/2013 03/25/2018 Obesity 10/06/2013 03/25/2018 Decreased libido 07/22/2013 03/25/2018 History of DVT/PE 01/12/2013 03/25/2018 Overview: - history of saddle PE in 2010 - IVC filter placed in 2011 possible in the setting of increased risk of falls while on coumadin - coumadin use complaicated by GI bleeding in the setting of supratherapeutic INR, warfarin stopped in 11/2012 - Repeat DVT involving common iliac/femoral and IVD distal to the filter in 01/2013 while off coumadin, restarted on coumadin - Currently sub therapeutic on coumadin PLAN: -Increase coumadin to 7.5 mg daily - continue coumadin for life in the setting of PE Continue to bridge with lovenox as INR subtherapeutic. 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 s/p clinical remission and now on Rituximab every 2 months , O/P oncologist Dr Ruiz - Epilepsy since , grand mal seizures s/p SEEG placement on 01/23 - 01/27 with localzation of seizure focus to the left temporal lobe, no grand mal seizures this year, follows up with Dr Xie for epilepsy, on Lacosamide, lamotrigine, keppra and clonazepam with confusion regarding his current medications - History of DVT PE, saddle PE 2010 started on coumadin c/b GI bleed in the setting of supratherapeutic INR, IVC filter placement 04/2012 in the setting of GI bleed and fall risk but continued on coumadin till 11/2012 . Recent DVT in the common iliac, femoral and IVC distal to the IVD filter in 01/2013 while off coumadin. Currently on coumadin and no bleeding episodes/ falls Who is transferred from [facility] for the further evaluation of his dizziness which started about 3 -4 days ago and is now resolved Thrombocytopenia 01/12/2013 12/28/2013 Overview: - Not acute - platelet in previous admission 141, todays labs pending - PREVIOUS ANTI PF4 negative - 4 T test score 4- intermediate probability, antiPF4 neg - could be 2/2 lamotrigine vs rituximab (althoug incidence more in RA patients) - no symptoms currently PLAN: - monitor blood counts Urgency of urination 09/10/2012 03/25/2018 Frequency of urination 09/10/2012 8 Duodenitis without mention of hemorrhage 012 03/25/2018 Drug induced neutropenia(288.03) 05/14/2012 03/25/2018 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 Breslow 5.3 mm, Yfn IV, Mitotic rate 5/ sq mm. documented as of this encounter (statuses as of 06/01/2022) [facility]02-24-2021 History of Past illness Narrative* Problem Noted Date Resolved Date Cellulitis of left lower extremity 09/29/2020 10/06/2021 [place] (acute kidney injury) 09/29/20202021 Functional dyspepsia 02/11/2018 03/25/2018 Overview: Added automatically from request for surgery [id number] History of pulmonary embolism 10/30/2016 History of DVT (deep vein thrombosis) 10/30/2016 03/25/2018 Vertigo 05/04/2014 03/25/2018 Dizziness 03/13/2014 03/25/2018 Overview: History: - discharged from the hospital in February after a surgical EEG electrode placement, normal mentation - went to rehab and siccessfully completed rehab for 4 weeks - reached home appx 1 week back - per patient, there was some confusion regarding which anti epileptic medications he was supposed to be on. Noticed increased diziness since about 3 days back.Did not miss any of his medication doses/ no aura/ no tonic clonic movements/ no falls/ no focal weakness. Called up Dr Xie (his neurologist) and was asked to go to the ED. 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 and transferred to the F for further evaluation - no complains today other than nausea - Tried calling his pharmacy in the evening to reach them, unable to get a response Assessment: - light headedness secondary to polypharmacy and inadvertent overdose vs subclinical seizures Plan: - symptoms already improved after adjusting medications - Epilepsy/ neurology Follow up after discharge DVT of proximal leg (deep vein thrombosis) 01/2703/25/2018 Calf DVT (deep venous thrombosis) 01/27/2014 03/25/2018 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 pylori infection 11/04/2013 03/25/2018 Obesity 10/06/2013 03/25/2018 Decreased libido 07/22/2013 03/25/2018 History of DVT/PE 01/12/2013 03/25/2018 Overview: - history of saddle PE in 2010 - IVC filter placed in 2011 possible in the setting of increased risk of falls while on coumadin - coumadin use complaicated by GI bleeding in the setting of supratherapeutic INR, warfarin stopped in 11/2012 - Repeat DVT involving common iliac/femoral and IVD distal to the filter in 01/2013 while off coumadin, restarted on coumadin - Currently sub therapeutic on coumadin PLAN: -Increase coumadin to 7.5 mg daily - continue coumadin for life in the setting of PE Continue to bridge with lovenox as INR subtherapeutic. 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 s/p clinical remission and now on Rituximab every 2 months , O/P oncologist Dr Ruiz - Epilepsy since , grand mal seizures s/p SEEG placement on 01/23 - 01/27 with localzation of seizure focus to the left temporal lobe, no grand mal seizures this year, follows up with Dr Xie for epilepsy, on Lacosamide, lamotrigine, keppra and clonazepam with confusion regarding his current medications - History of DVT PE, saddle PE 2010 started on coumadin c/b GI bleed in the setting of supratherapeutic INR, IVC filter placement 04/2012 in the setting of GI bleed and fall risk but continued on coumadin till 11/2012 . Recent DVT in the common iliac, femoral and IVC distal to the IVD filter in 01/2013 while off coumadin. Currently on coumadin and no bleeding episodes/ falls Who is transferred from [facility] for the further evaluation of his dizziness which started about 3 -4 days ago and is now resolved Thrombocytopenia 01/12/2013 12/28/2013 Overview: - Not acute - platelet in previous admission 141, todays labs pending - PREVIOUS ANTI PF4 negative - 4 T test score 4- intermediate probability, antiPF4 neg - could be 2/2 lamotrigine vs rituximab (althoug incidence more in RA patients) - no symptoms currently PLAN: - monitor blood counts Urgency of urination 09/10/2012 03/25/2018 Frequency of urination 09/10/2012 8 Duodenitis without mention of hemorrhage 012 03/25/2018 Drug induced neutropenia(288.03) 05/14/2012 03/25/2018 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 Breslow 5.3 mm, Yfn IV, Mitotic rate 5/ sq mm. documented as of this encounter (statuses as of 06/07/2022) [facility]02[facility] History of Past illness Narrative* Problem Noted Date Resolved Date Cellulitis of left lower extremity 09/29/2020 10/06/2021 [place] (acute kidney injury) 09/29/20202021 Functional dyspepsia 02/11/2018 03/25/2018 Overview: Added automatically from request for surgery [id number] History of pulmonary embolism 10/30/2016 History of DVT (deep vein thrombosis) 10/30/2016 03/25/2018 Vertigo 05/04/2014 03/25/2018 Dizziness 03/13/2014 03/25/2018 Overview: History: - discharged from the hospital in February after a surgical EEG electrode placement, normal mentation - went to rehab and siccessfully completed rehab for 4 weeks - reached home appx 1 week back - per patient, there was some confusion regarding which anti epileptic medications he was supposed to be on. Noticed increased diziness since about 3 days back.Did not miss any of his medication doses/ no aura/ no tonic clonic movements/ no falls/ no focal weakness. Called up Dr Xie (his neurologist) and was asked to go to the ED. 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 and transferred to the [facility] for further evaluation - no complains today other than nausea - Tried calling his pharmacy in the evening to reach them, unable to get a response Assessment: - light headedness secondary to polypharmacy and inadvertent overdose vs subclinical seizures Plan: - symptoms already improved after adjusting medications - Epilepsy/ neurology Follow up after discharge DVT of proximal leg (deep vein thrombosis) 01/2703/25/2018 Calf DVT (deep venous thrombosis) 01/27/2014 03/25/2018 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 pylori infection 11/04/2013 03/25/2018 Obesity 10/06/2013 03/25/2018 Decreased libido 07/22/2013 03/25/2018 History of DVT/PE 01/12/2013 03/25/2018 Overview: - history of saddle PE in 2010 - IVC filter placed in 2011 possible in the setting of increased risk of falls while on coumadin - coumadin use complaicated by GI bleeding in the setting of supratherapeutic INR, warfarin stopped in 11/2012 - Repeat DVT involving common iliac/femoral and IVD distal to the filter in 01/2013 while off coumadin, restarted on coumadin - Currently sub therapeutic on coumadin PLAN: -Increase coumadin to 7.5 mg daily - continue coumadin for life in the setting of PE Continue to bridge with lovenox as INR subtherapeutic. 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 s/p clinical remission and now on Rituximab every 2 months , O/P oncologist Dr Ruiz - Epilepsy since , grand mal seizures s/p SEEG placement on 01/23 - 01/27 with localzation of seizure focus to the left temporal lobe, no grand mal seizures this year, follows up with Dr Xie for epilepsy, on Lacosamide, lamotrigine, keppra and clonazepam with confusion regarding his current medications - History of DVT PE, saddle PE 2010 started on coumadin c/b GI bleed in the setting of supratherapeutic INR, IVC filter placement 04/2012 in the setting of GI bleed and fall risk but continued on coumadin till 11/2012 . Recent DVT in the common iliac, femoral and IVC distal to the IVD filter in 01/2013 while off coumadin. Currently on coumadin and no bleeding episodes/ falls Who is transferred from [facility] for the further evaluation of his dizziness which started about 3 -4 days ago and is now resolved Thrombocytopenia 01/12/2013 12/28/2013 Overview: - Not acute - platelet in previous admission 141, todays labs pending - PREVIOUS ANTI PF4 negative - 4 T test score 4- intermediate probability, antiPF4 neg - could be 2/2 lamotrigine vs rituximab (althoug incidence more in RA patients) - no symptoms currently PLAN: - monitor blood counts Urgency of urination 09/10/2012 03/25/2018 Frequency of urination 09/10/2012 8 Duodenitis without mention of hemorrhage 012 03/25/2018 Drug induced neutropenia(288.03) 05/14/2012 03/25/2018 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 Breslow 5.3 mm, Yfn IV, Mitotic rate 5/ sq mm. documented as of this encounter (statuses as of 06/09/2022) [facility] History of Past illness Narrative* Problem Noted Date Resolved Date Cellulitis of left lower extremity 09/29/2020 10/06/2021 [place] (acute kidney injury) 09/29/20202021 Functional dyspepsia 02/11/2018 03/25/2018 Overview: Added automatically from request for surgery [id number] History of pulmonary embolism 10/30/2016 History of DVT (deep vein thrombosis) 10/30/2016 03/25/2018 Vertigo 05/04/2014 03/25/2018 Dizziness 03/13/2014 03/25/2018 Overview: History: - discharged from the hospital in February after a surgical EEG electrode placement, normal mentation - went to rehab and siccessfully completed rehab for 4 weeks - reached home appx 1 week back - per patient, there was some confusion regarding which anti epileptic medications he was supposed to be on. Noticed increased diziness since about 3 days back.Did not miss any of his medication doses/ no aura/ no tonic clonic movements/ no falls/ no focal weakness. Called up Dr Xie (his neurologist) and was asked to go to the ED. 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 and transferred to the [facility] for further evaluation - no complains today other than nausea - Tried calling his pharmacy in the evening to reach them, unable to get a response Assessment: - light headedness secondary to polypharmacy and inadvertent overdose vs subclinical seizures Plan: - symptoms already improved after adjusting medications - Epilepsy/ neurology Follow up after discharge DVT of proximal leg (deep vein thrombosis) 01/2703/25/2018 Calf DVT (deep venous thrombosis) 01/27/2014 03/25/2018 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 pylori infection 11/04/2013 03/25/2018 Obesity 10/06/2013 03/25/2018 Decreased libido 07/22/2013 03/25/2018 History of DVT/PE 01/12/2013 03/25/2018 Overview: - history of saddle PE in 2010 - IVC filter placed in 2011 possible in the setting of increased risk of falls while on coumadin - coumadin use complaicated by GI bleeding in the setting of supratherapeutic INR, warfarin stopped in 11/2012 - Repeat DVT involving common iliac/femoral and IVD distal to the filter in 01/2013 while off coumadin, restarted on coumadin - Currently sub therapeutic on coumadin PLAN: -Increase coumadin to 7.5 mg daily - continue coumadin for life in the setting of PE Continue to bridge with lovenox as INR subtherapeutic. 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 s/p clinical remission and now on Rituximab every 2 months , O/P oncologist Dr Ruiz - Epilepsy since , grand mal seizures s/p SEEG placement on 01/23 - 01/27 with localzation of seizure focus to the left temporal lobe, no grand mal seizures this year, follows up with Dr Xie for epilepsy, on Lacosamide, lamotrigine, keppra and clonazepam with confusion regarding his current medications - History of DVT PE, saddle PE 2010 started on coumadin c/b GI bleed in the setting of supratherapeutic INR, IVC filter placement 04/2012 in the setting of GI bleed and fall risk but continued on coumadin till 11/2012 . Recent DVT in the common iliac, femoral and IVC distal to the IVD filter in 01/2013 while off coumadin. Currently on coumadin and no bleeding episodes/ falls Who is transferred from [facility] for the further evaluation of his dizziness which started about 3 -4 days ago and is now resolved Thrombocytopenia 01/12/2013 12/28/2013 Overview: - Not acute - platelet in previous admission 141, todays labs pending - PREVIOUS ANTI PF4 negative - 4 T test score 4- intermediate probability, antiPF4 neg - could be 2/2 lamotrigine vs rituximab (althoug incidence more in RA patients) - no symptoms currently PLAN: - monitor blood counts Urgency of urination 09/10/2012 03/25/2018 Frequency of urination 09/10/2012 8 Duodenitis without mention of hemorrhage 012 03/25/2018 Drug induced neutropenia(288.03) 05/14/2012 03/25/2018 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 Breslow 5.3 mm, Yfn IV, Mitotic rate 5/ sq mm. documented as of this encounter (statuses as of 06/22/2022) [facility] History of Past illness Narrative* Problem Noted Date Resolved Date Cellulitis of left lower extremity 09/29/2020 10/06/2021 [place] (acute kidney injury) 09/29/20202021 Functional dyspepsia 02/11/2018 03/25/2018 Overview: Added automatically from request for surgery [id number] History of pulmonary embolism 10/30/2016 History of DVT (deep vein thrombosis) 10/30/2016 03/25/2018 Vertigo 05/04/2014 03/25/2018 Dizziness 03/13/2014 03/25/2018 Overview: History: - discharged from the hospital in February after a surgical EEG electrode placement, normal mentation - went to rehab and siccessfully completed rehab for 4 weeks - reached home appx 1 week back - per patient, there was some confusion regarding which anti epileptic medications he was supposed to be on. Noticed increased diziness since about 3 days back.Did not miss any of his medication doses/ no aura/ no tonic clonic movements/ no falls/ no focal weakness. Called up Dr Xie (his neurologist) and was asked to go to the ED. 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 and transferred to the [facility] for further evaluation - no complains today other than nausea - Tried calling his pharmacy in the evening to reach them, unable to get a response Assessment: - light headedness secondary to polypharmacy and inadvertent overdose vs subclinical seizures Plan: - symptoms already improved after adjusting medications - Epilepsy/ neurology Follow up after discharge DVT of proximal leg (deep vein thrombosis) 01/2703/25/2018 Calf DVT (deep venous thrombosis) 01/27/2014 03/25/2018 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 pylori infection 11/04/2013 03/25/2018 Obesity 10/06/2013 03/25/2018 Decreased libido 07/22/2013 03/25/2018 History of DVT/PE 01/12/2013 03/25/2018 Overview: - history of saddle PE in 2010 - IVC filter placed in 2011 possible in the setting of increased risk of falls while on coumadin - coumadin use complaicated by GI bleeding in the setting of supratherapeutic INR, warfarin stopped in 11/2012 - Repeat DVT involving common iliac/femoral and IVD distal to the filter in 01/2013 while off coumadin, restarted on coumadin - Currently sub therapeutic on coumadin PLAN: -Increase coumadin to 7.5 mg daily - continue coumadin for life in the setting of PE Continue to bridge with lovenox as INR subtherapeutic. 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 s/p clinical remission and now on Rituximab every 2 months , O/P oncologist Dr Ruiz - Epilepsy since , grand mal seizures s/p SEEG placement on 01/23 - 01/27 with localzation of seizure focus to the left temporal lobe, no grand mal seizures this year, follows up with Dr Xie for epilepsy, on Lacosamide, lamotrigine, keppra and clonazepam with confusion regarding his current medications - History of DVT PE, saddle PE 2010 started on coumadin c/b GI bleed in the setting of supratherapeutic INR, IVC filter placement 04/2012 in the setting of GI bleed and fall risk but continued on coumadin till 11/2012 . Recent DVT in the common iliac, femoral and IVC distal to the IVD filter in 01/2013 while off coumadin. Currently on coumadin and no bleeding episodes/ falls Who is transferred from [facility] for the further evaluation of his dizziness which started about 3 -4 days ago and is now resolved Thrombocytopenia 01/12/2013 12/28/2013 Overview: - Not acute - platelet in previous admission 141, todays labs pending - PREVIOUS ANTI PF4 negative - 4 T test score 4- intermediate probability, antiPF4 neg - could be 2/2 lamotrigine vs rituximab (althoug incidence more in RA patients) - no symptoms currently PLAN: - monitor blood counts Urgency of urination 09/10/2012 03/25/2018 Frequency of urination 09/10/2012 8 Duodenitis without mention of hemorrhage 012 03/25/2018 Drug induced neutropenia(288.03) 05/14/2012 03/25/2018 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 Breslow 5.3 mm, Yfn IV, Mitotic rate 5/ sq mm. documented as of this encounter (statuses as of 06/27/2022) [facility]02-24-2021 History of Past illness Narrative* Problem Noted Date Resolved Date Cellulitis of left lower extremity 09/29/2020 10/06/2021 [place] (acute kidney injury) 09/29/20202021 Functional dyspepsia 02/11/2018 03/25/2018 Overview: Added automatically from request for surgery [id number] History of pulmonary embolism 10/30/2016 History of DVT (deep vein thrombosis) 10/30/2016 03/25/2018 Vertigo 05/04/2014 03/25/2018 Dizziness 03/13/2014 03/25/2018 Overview: History: - discharged from the hospital in February after a surgical EEG electrode placement, normal mentation - went to rehab and siccessfully completed rehab for 4 weeks - reached home appx 1 week back - per patient, there was some confusion regarding which anti epileptic medications he was supposed to be on. Noticed increased diziness since about 3 days back.Did not miss any of his medication doses/ no aura/ no tonic clonic movements/ no falls/ no focal weakness. Called up Dr Xie (his neurologist) and was asked to go to the ED. 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 and transferred to the [facility] for further evaluation - no complains today other than nausea - Tried calling his pharmacy in the evening to reach them, unable to get a response Assessment: - light headedness secondary to polypharmacy and inadvertent overdose vs subclinical seizures Plan: - symptoms already improved after adjusting medications - Epilepsy/ neurology Follow up after discharge DVT of proximal leg (deep vein thrombosis) 01/2703/25/2018 Calf DVT (deep venous thrombosis) 01/27/2014 03/25/2018 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 pylori infection 11/04/2013 03/25/2018 Obesity 10/06/2013 03/25/2018 Decreased libido 07/22/2013 03/25/2018 History of DVT/PE 01/12/2013 03/25/2018 Overview: - history of saddle PE in 2010 - IVC filter placed in 2011 possible in the setting of increased risk of falls while on coumadin - coumadin use complaicated by GI bleeding in the setting of supratherapeutic INR, warfarin stopped in 11/2012 - Repeat DVT involving common iliac/femoral and IVD distal to the filter in 01/2013 while off coumadin, restarted on coumadin - Currently sub therapeutic on coumadin PLAN: -Increase coumadin to 7.5 mg daily - continue coumadin for life in the setting of PE Continue to bridge with lovenox as INR subtherapeutic. 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 s/p clinical remission and now on Rituximab every 2 months , O/P oncologist Dr Ruiz - Epilepsy since , grand mal seizures s/p SEEG placement on 01/23 - 01/27 with localzation of seizure focus to the left temporal lobe, no grand mal seizures this year, follows up with Dr Xie for epilepsy, on Lacosamide, lamotrigine, keppra and clonazepam with confusion regarding his current medications - History of DVT PE, saddle PE 2010 started on coumadin c/b GI bleed in the setting of supratherapeutic INR, IVC filter placement 04/2012 in the setting of GI bleed and fall risk but continued on coumadin till 11/2012 . Recent DVT in the common iliac, femoral and IVC distal to the IVD filter in 01/2013 while off coumadin. Currently on coumadin and no bleeding episodes/ falls Who is transferred from [facility] for the further evaluation of his dizziness which started about 3 -4 days ago and is now resolved Thrombocytopenia 01/12/2013 12/28/2013 Overview: - Not acute - platelet in previous admission 141, todays labs pending - PREVIOUS ANTI PF4 negative - 4 T test score 4- intermediate probability, antiPF4 neg - could be 2/2 lamotrigine vs rituximab (althoug incidence more in RA patients) - no symptoms currently PLAN: - monitor blood counts Urgency of urination 09/10/2012 03/25/2018 Frequency of urination 09/10/2012 8 Duodenitis without mention of hemorrhage 012 03/25/2018 Drug induced neutropenia(288.03) 05/14/2012 03/25/2018 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 Breslow 5.3 mm, Yfn IV, Mitotic rate 5/ sq mm. documented as of this encounter (statuses as of 07/10/2022) [facility]02-[facility]21 History of Past illness Narrative* Problem Noted Date Resolved Date Cellulitis of left lower extremity 09/29/2020 10/06/2021 [place] (acute kidney injury) 09/29/20202021 Functional dyspepsia 02/11/2018 03/25/2018 Overview: Added automatically from request for surgery [id number] History of pulmonary embolism 10/30/2016 History of DVT (deep vein thrombosis) 10/30/2016 03/25/2018 Vertigo 05/04/2014 03/25/2018 Dizziness 03/13/2014 03/25/2018 Overview: History: - discharged from the hospital in February after a surgical EEG electrode placement, normal mentation - went to rehab and siccessfully completed rehab for 4 weeks - reached home appx 1 week back - per patient, there was some confusion regarding which anti epileptic medications he was supposed to be on. Noticed increased diziness since about 3 days back.Did not miss any of his medication doses/ no aura/ no tonic clonic movements/ no falls/ no focal weakness. Called up Dr Xie (his neurologist) and was asked to go to the ED. 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 and transferred to the [facility] for further evaluation - no complains today other than nausea - Tried calling his pharmacy in the evening to reach them, unable to get a response Assessment: - light headedness secondary to polypharmacy and inadvertent overdose vs subclinical seizures Plan: - symptoms already improved after adjusting medications - Epilepsy/ neurology Follow up after discharge DVT of proximal leg (deep vein thrombosis) 01/2703/25/2018 Calf DVT (deep venous thrombosis) 01/27/2014 03/25/2018 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 pylori infection 11/04/2013 03/25/2018 Obesity 10/06/2013 03/25/2018 Decreased libido 07/22/2013 03/25/2018 History of DVT/PE 01/12/2013 03/25/2018 Overview: - history of saddle PE in 2010 - IVC filter placed in 2011 possible in the setting of increased risk of falls while on coumadin - coumadin use complaicated by GI bleeding in the setting of supratherapeutic INR, warfarin stopped in 11/2012 - Repeat DVT involving common iliac/femoral and IVD distal to the filter in 01/2013 while off coumadin, restarted on coumadin - Currently sub therapeutic on coumadin PLAN: -Increase coumadin to 7.5 mg daily - continue coumadin for life in the setting of PE Continue to bridge with lovenox as INR subtherapeutic. 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 s/p clinical remission and now on Rituximab every 2 months , O/P oncologist Dr Ruiz - Epilepsy since , grand mal seizures s/p SEEG placement on 01/23 - 01/27 with localzation of seizure focus to the left temporal lobe, no grand mal seizures this year, follows up with Dr Xie for epilepsy, on Lacosamide, lamotrigine, keppra and clonazepam with confusion regarding his current medications - History of DVT PE, saddle PE 2010 started on coumadin c/b GI bleed in the setting of supratherapeutic INR, IVC filter placement 04/2012 in the setting of GI bleed and fall risk but continued on coumadin till 11/2012 . Recent DVT in the common iliac, femoral and IVC distal to the IVD filter in 01/2013 while off coumadin. Currently on coumadin and no bleeding episodes/ falls Who is transferred from [facility] for the further evaluation of his dizziness which started about 3 -4 days ago and is now resolved Thrombocytopenia 01/12/2013 12/28/2013 Overview: - Not acute - platelet in previous admission 141, todays labs pending - PREVIOUS ANTI PF4 negative - 4 T test score 4- intermediate probability, antiPF4 neg - could be 2/2 lamotrigine vs rituximab (althoug incidence more in RA patients) - no symptoms currently PLAN: - monitor blood counts Urgency of urination 09/10/2012 03/25/2018 Frequency of urination 09/10/2012 8 Duodenitis without mention of hemorrhage 012 03/25/2018 Drug induced neutropenia(288.03) 05/14/2012 03/25/2018 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 Breslow 5.3 mm, Yfn IV, Mitotic rate 5/ sq mm. documented as of this encounter (statuses as of 07/28/2022) [facility]02[facility] History of Past illness Narrative* Problem Noted Date Resolved Date Cellulitis of left lower extremity 09/29/2020 10/06/2021 [place] (acute kidney injury) 09/29/20202021 Functional dyspepsia 02/11/2018 03/25/2018 Overview: Added automatically from request for surgery [id number] History of pulmonary embolism 10/30/2016 History of DVT (deep vein thrombosis) 10/30/2016 03/25/2018 Vertigo 05/04/2014 03/25/2018 Dizziness 03/13/2014 03/25/2018 Overview: History: - discharged from the hospital in February after a surgical EEG electrode placement, normal mentation - went to rehab and siccessfully completed rehab for 4 weeks - reached home appx 1 week back - per patient, there was some confusion regarding which anti epileptic medications he was supposed to be on. Noticed increased diziness since about 3 days back.Did not miss any of his medication doses/ no aura/ no tonic clonic movements/ no falls/ no focal weakness. Called up Dr Xie (his neurologist) and was asked to go to the ED. 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 and transferred to the [facility] for further evaluation - no complains today other than nausea - Tried calling his pharmacy in the evening to reach them, unable to get a response Assessment: - light headedness secondary to polypharmacy and inadvertent overdose vs subclinical seizures Plan: - symptoms already improved after adjusting medications - Epilepsy/ neurology Follow up after discharge DVT of proximal leg (deep vein thrombosis) 01/2703/25/2018 Calf DVT (deep venous thrombosis) 01/27/2014 03/25/2018 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 pylori infection 11/04/2013 03/25/2018 Obesity 10/06/2013 03/25/2018 Decreased libido 07/22/2013 03/25/2018 History of DVT/PE 01/12/2013 03/25/2018 Overview: - history of saddle PE in 2010 - IVC filter placed in 2011 possible in the setting of increased risk of falls while on coumadin - coumadin use complaicated by GI bleeding in the setting of supratherapeutic INR, warfarin stopped in 11/2012 - Repeat DVT involving common iliac/femoral and IVD distal to the filter in 01/2013 while off coumadin, restarted on coumadin - Currently sub therapeutic on coumadin PLAN: -Increase coumadin to 7.5 mg daily - continue coumadin for life in the setting of PE Continue to bridge with lovenox as INR subtherapeutic. 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 s/p clinical remission and now on Rituximab every 2 months , O/P oncologist Dr Ruiz - Epilepsy since , grand mal seizures s/p SEEG placement on 01/23 - 01/27 with localzation of seizure focus to the left temporal lobe, no grand mal seizures this year, follows up with Dr Xie for epilepsy, on Lacosamide, lamotrigine, keppra and clonazepam with confusion regarding his current medications - History of DVT PE, saddle PE 2010 started on coumadin c/b GI bleed in the setting of supratherapeutic INR, IVC filter placement 04/2012 in the setting of GI bleed and fall risk but continued on coumadin till 11/2012 . Recent DVT in the common iliac, femoral and IVC distal to the IVD filter in 01/2013 while off coumadin. Currently on coumadin and no bleeding episodes/ falls Who is transferred from [facility] for the further evaluation of his dizziness which started about 3 -4 days ago and is now resolved Thrombocytopenia 01/12/2013 12/28/2013 Overview: - Not acute - platelet in previous admission 141, todays labs pending - PREVIOUS ANTI PF4 negative - 4 T test score 4- intermediate probability, antiPF4 neg - could be 2/2 lamotrigine vs rituximab (althoug incidence more in RA patients) - no symptoms currently PLAN: - monitor blood counts Urgency of urination 09/10/2012 03/25/2018 Frequency of urination 09/10/2012 8 Duodenitis without mention of hemorrhage 012 03/25/2018 Drug induced neutropenia(288.03) 05/14/2012 03/25/2018 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 Breslow 5.3 mm, Yfn IV, Mitotic rate 5/ sq mm. documented as of this encounter (statuses as of 08/12/2022) [facility] History of Past illness Narrative* Problem Noted Date Resolved Date Cellulitis of left lower extremity 09/29/2020 10/06/2021 [place] (acute kidney injury) 09/29/20202021 Functional dyspepsia 02/11/2018 03/25/2018 Overview: Added automatically from request for surgery [id number] History of pulmonary embolism 10/30/2016 History of DVT (deep vein thrombosis) 10/30/2016 03/25/2018 Vertigo 05/04/2014 03/25/2018 Dizziness 03/13/2014 03/25/2018 Overview: History: - discharged from the hospital in February after a surgical EEG electrode placement, normal mentation - went to rehab and siccessfully completed rehab for 4 weeks - reached home appx 1 week back - per patient, there was some confusion regarding which anti epileptic medications he was supposed to be on. Noticed increased diziness since about 3 days back.Did not miss any of his medication doses/ no aura/ no tonic clonic movements/ no falls/ no focal weakness. Called up Dr Xie (his neurologist) and was asked to go to the ED. 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 and transferred to the [facility] for further evaluation - no complains today other than nausea - Tried calling his pharmacy in the evening to reach them, unable to get a response Assessment: - light headedness secondary to polypharmacy and inadvertent overdose vs subclinical seizures Plan: - symptoms already improved after adjusting medications - Epilepsy/ neurology Follow up after discharge DVT of proximal leg (deep vein thrombosis) 01/2703/25/2018 Calf DVT (deep venous thrombosis) 01/27/2014 03/25/2018 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 pylori infection 11/04/2013 03/25/2018 Obesity 10/06/2013 03/25/2018 Decreased libido 07/22/2013 03/25/2018 History of DVT/PE 01/12/2013 03/25/2018 Overview: - history of saddle PE in 2010 - IVC filter placed in 2011 possible in the setting of increased risk of falls while on coumadin - coumadin use complaicated by GI bleeding in the setting of supratherapeutic INR, warfarin stopped in 11/2012 - Repeat DVT involving common iliac/femoral and IVD distal to the filter in 01/2013 while off coumadin, restarted on coumadin - Currently sub therapeutic on coumadin PLAN: -Increase coumadin to 7.5 mg daily - continue coumadin for life in the setting of PE Continue to bridge with lovenox as INR subtherapeutic. 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 s/p clinical remission and now on Rituximab every 2 months , O/P oncologist Dr Ruiz - Epilepsy since , grand mal seizures s/p SEEG placement on 01/23 - 01/27 with localzation of seizure focus to the left temporal lobe, no grand mal seizures this year, follows up with Dr Xie for epilepsy, on Lacosamide, lamotrigine, keppra and clonazepam with confusion regarding his current medications - History of DVT PE, saddle PE 2010 started on coumadin c/b GI bleed in the setting of supratherapeutic INR, IVC filter placement 04/2012 in the setting of GI bleed and fall risk but continued on coumadin till 11/2012 . Recent DVT in the common iliac, femoral and IVC distal to the IVD filter in 01/2013 while off coumadin. Currently on coumadin and no bleeding episodes/ falls Who is transferred from [facility] for the further evaluation of his dizziness which started about 3 -4 days ago and is now resolved Thrombocytopenia 01/12/2013 12/28/2013 Overview: - Not acute - platelet in previous admission 141, todays labs pending - PREVIOUS ANTI PF4 negative - 4 T test score 4- intermediate probability, antiPF4 neg - could be 2/2 lamotrigine vs rituximab (althoug incidence more in RA patients) - no symptoms currently PLAN: - monitor blood counts Urgency of urination 09/10/2012 03/25/2018 Frequency of urination 09/10/2012 8 Duodenitis without mention of hemorrhage 012 03/25/2018 Drug induced neutropenia(288.03) 05/14/2012 03/25/2018 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 Breslow 5.3 mm, Yfn IV, Mitotic rate 5/ sq mm. documented as of this encounter (statuses as of 08/30/2022) [facility] History of Past illness Narrative* Problem Noted Date Resolved Date Cellulitis of left lower extremity 09/29/2020 10/06/2021 [place] (acute kidney injury) 09/29/20202021 Functional dyspepsia 02/11/2018 03/25/2018 Overview: Added automatically from request for surgery [id number] History of pulmonary embolism 10/30/2016 History of DVT (deep vein thrombosis) 10/30/2016 03/25/2018 Vertigo 05/04/2014 03/25/2018 Dizziness 03/13/2014 03/25/2018 Overview: History: - discharged from the hospital in February after a surgical EEG electrode placement, normal mentation - went to rehab and siccessfully completed rehab for 4 weeks - reached home appx 1 week back - per patient, there was some confusion regarding which anti epileptic medications he was supposed to be on. Noticed increased diziness since about 3 days back.Did not miss any of his medication doses/ no aura/ no tonic clonic movements/ no falls/ no focal weakness. Called up Dr Xie (his neurologist) and was asked to go to the ED. 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 and transferred to the [facility] for further evaluation - no complains today other than nausea - Tried calling his pharmacy in the evening to reach them, unable to get a response Assessment: - light headedness secondary to polypharmacy and inadvertent overdose vs subclinical seizures Plan: - symptoms already improved after adjusting medications - Epilepsy/ neurology Follow up after discharge DVT of proximal leg (deep vein thrombosis) 01/2703/25/2018 Calf DVT (deep venous thrombosis) 01/27/2014 03/25/2018 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 pylori infection 11/04/2013 03/25/2018 Obesity 10/06/2013 03/25/2018 Decreased libido 07/22/2013 03/25/2018 History of DVT/PE 01/12/2013 03/25/2018 Overview: - history of saddle PE in 2010 - IVC filter placed in 2011 possible in the setting of increased risk of falls while on coumadin - coumadin use complaicated by GI bleeding in the setting of supratherapeutic INR, warfarin stopped in 11/2012 - Repeat DVT involving common iliac/femoral and IVD distal to the filter in 01/2013 while off coumadin, restarted on coumadin - Currently sub therapeutic on coumadin PLAN: -Increase coumadin to 7.5 mg daily - continue coumadin for life in the setting of PE Continue to bridge with lovenox as INR subtherapeutic. 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 s/p clinical remission and now on Rituximab every 2 months , O/P oncologist Dr Ruiz - Epilepsy since , grand mal seizures s/p SEEG placement on 01/23 - 01/27 with localzation of seizure focus to the left temporal lobe, no grand mal seizures this year, follows up with Dr Xie for epilepsy, on Lacosamide, lamotrigine, keppra and clonazepam with confusion regarding his current medications - History of DVT PE, saddle PE 2010 started on coumadin c/b GI bleed in the setting of supratherapeutic INR, IVC filter placement 04/2012 in the setting of GI bleed and fall risk but continued on coumadin till 11/2012 . Recent DVT in the common iliac, femoral and IVC distal to the IVD filter in 01/2013 while off coumadin. Currently on coumadin and no bleeding episodes/ falls Who is transferred from [facility] for the further evaluation of his dizziness which started about 3 -4 days ago and is now resolved Thrombocytopenia 01/12/2013 12/28/2013 Overview: - Not acute - platelet in previous admission 141, todays labs pending - PREVIOUS ANTI PF4 negative - 4 T test score 4- intermediate probability, antiPF4 neg - could be 2/2 lamotrigine vs rituximab (althoug incidence more in RA patients) - no symptoms currently PLAN: - monitor blood counts Urgency of urination 09/10/2012 03/25/2018 Frequency of urination 09/10/2012 8 Duodenitis without mention of hemorrhage 012 03/25/2018 Drug induced neutropenia(288.03) 05/14/2012 03/25/2018 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 Breslow 5.3 mm, Yfn IV, Mitotic rate 5/ sq mm. documented as of this encounter (statuses as of 09/05/2022) [facility]02-24-2021 History of Past illness Narrative* Problem Noted Date Resolved Date Cellulitis of left lower extremity 09/29/2020 10/06/2021 [place] (acute kidney injury) 09/29/20202021 Functional dyspepsia 02/11/2018 03/25/2018 Overview: Added automatically from request for surgery [id number] History of pulmonary embolism 10/30/2016 History of DVT (deep vein thrombosis) 10/30/2016 03/25/2018 Vertigo 05/04/2014 03/25/2018 Dizziness 03/13/2014 03/25/2018 Overview: History: - discharged from the hospital in February after a surgical EEG electrode placement, normal mentation - went to rehab and siccessfully completed rehab for 4 weeks - reached home appx 1 week back - per patient, there was some confusion regarding which anti epileptic medications he was supposed to be on. Noticed increased diziness since about 3 days back.Did not miss any of his medication doses/ no aura/ no tonic clonic movements/ no falls/ no focal weakness. Called up Dr Xie (his neurologist) and was asked to go to the ED. 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 and transferred to the [facility] for further evaluation - no complains today other than nausea - Tried calling his pharmacy in the evening to reach them, unable to get a response Assessment: - light headedness secondary to polypharmacy and inadvertent overdose vs subclinical seizures Plan: - symptoms already improved after adjusting medications - Epilepsy/ neurology Follow up after discharge DVT of proximal leg (deep vein thrombosis) 01/2703/25/2018 Calf DVT (deep venous thrombosis) 01/27/2014 03/25/2018 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 pylori infection 11/04/2013 03/25/2018 Obesity 10/06/2013 03/25/2018 Decreased libido 07/22/2013 03/25/2018 History of DVT/PE 01/12/2013 03/25/2018 Overview: - history of saddle PE in 2010 - IVC filter placed in 2011 possible in the setting of increased risk of falls while on coumadin - coumadin use complaicated by GI bleeding in the setting of supratherapeutic INR, warfarin stopped in 11/2012 - Repeat DVT involving common iliac/femoral and IVD distal to the filter in 01/2013 while off coumadin, restarted on coumadin - Currently sub therapeutic on coumadin PLAN: -Increase coumadin to 7.5 mg daily - continue coumadin for life in the setting of PE Continue to bridge with lovenox as INR subtherapeutic. 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 s/p clinical remission and now on Rituximab every 2 months , O/P oncologist Dr Ruiz - Epilepsy since , grand mal seizures s/p SEEG placement on 01/23 - 01/27 with localzation of seizure focus to the left temporal lobe, no grand mal seizures this year, follows up with Dr Xie for epilepsy, on Lacosamide, lamotrigine, keppra and clonazepam with confusion regarding his current medications - History of DVT PE, saddle PE 2010 started on coumadin c/b GI bleed in the setting of supratherapeutic INR, IVC filter placement 04/2012 in the setting of GI bleed and fall risk but continued on coumadin till 11/2012 . Recent DVT in the common iliac, femoral and IVC distal to the IVD filter in 01/2013 while off coumadin. Currently on coumadin and no bleeding episodes/ falls Who is transferred from [facility] for the further evaluation of his dizziness which started about 3 -4 days ago and is now resolved Thrombocytopenia 01/12/2013 12/28/2013 Overview: - Not acute - platelet in previous admission 141, todays labs pending - PREVIOUS ANTI PF4 negative - 4 T test score 4- intermediate probability, antiPF4 neg - could be 2/2 lamotrigine vs rituximab (althoug incidence more in RA patients) - no symptoms currently PLAN: - monitor blood counts Urgency of urination 09/10/2012 03/25/2018 Frequency of urination 09/10/2012 8 Duodenitis without mention of hemorrhage 012 03/25/2018 Drug induced neutropenia(288.03) 05/14/2012 03/25/2018 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 Breslow 5.3 mm, Yfn IV, Mitotic rate 5/ sq mm. documented as of this encounter (statuses as of 09/20/2022) [facility] History of Past illness Narrative* Problem Noted Date Resolved Date Cellulitis of left lower extremity 09/29/2020 10/06/2021 [place] (acute kidney injury) 09/29/20202021 Functional dyspepsia 02/11/2018 03/25/2018 Overview: Added automatically from request for surgery [id number] History of pulmonary embolism 10/30/2016 History of DVT (deep vein thrombosis) 10/30/2016 03/25/2018 Vertigo 05/04/2014 03/25/2018 Dizziness 03/13/2014 03/25/2018 Overview: History: - discharged from the hospital in February after a surgical EEG electrode placement, normal mentation - went to rehab and siccessfully completed rehab for 4 weeks - reached home appx 1 week back - per patient, there was some confusion regarding which anti epileptic medications he was supposed to be on. Noticed increased diziness since about 3 days back.Did not miss any of his medication doses/ no aura/ no tonic clonic movements/ no falls/ no focal weakness. Called up Dr Xie (his neurologist) and was asked to go to the ED. 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 and transferred to the [facility] for further evaluation - no complains today other than nausea - Tried calling his pharmacy in the evening to reach them, unable to get a response Assessment: - light headedness secondary to polypharmacy and inadvertent overdose vs subclinical seizures Plan: - symptoms already improved after adjusting medications - Epilepsy/ neurology Follow up after discharge DVT of proximal leg (deep vein thrombosis) 01/2703/25/2018 Calf DVT (deep venous thrombosis) 01/27/2014 03/25/2018 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 pylori infection 11/04/2013 03/25/2018 Obesity 10/06/2013 03/25/2018 Decreased libido 07/22/2013 03/25/2018 History of DVT/PE 01/12/2013 03/25/2018 Overview: - history of saddle PE in 2010 - IVC filter placed in 2011 possible in the setting of increased risk of falls while on coumadin - coumadin use complaicated by GI bleeding in the setting of supratherapeutic INR, warfarin stopped in 11/2012 - Repeat DVT involving common iliac/femoral and IVD distal to the filter in 01/2013 while off coumadin, restarted on coumadin - Currently sub therapeutic on coumadin PLAN: -Increase coumadin to 7.5 mg daily - continue coumadin for life in the setting of PE Continue to bridge with lovenox as INR subtherapeutic. 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 s/p clinical remission and now on Rituximab every 2 months , O/P oncologist Dr Ruiz - Epilepsy since , grand mal seizures s/p SEEG placement on 01/23 - 01/27 with localzation of seizure focus to the left temporal lobe, no grand mal seizures this year, follows up with Dr Xie for epilepsy, on Lacosamide, lamotrigine, keppra and clonazepam with confusion regarding his current medications - History of DVT PE, saddle PE 2010 started on coumadin c/b GI bleed in the setting of supratherapeutic INR, IVC filter placement 04/2012 in the setting of GI bleed and fall risk but continued on coumadin till 11/2012 . Recent DVT in the common iliac, femoral and IVC distal to the IVD filter in 01/2013 while off coumadin. Currently on coumadin and no bleeding episodes/ falls Who is transferred from [facility] for the further evaluation of his dizziness which started about 3 -4 days ago and is now resolved Thrombocytopenia 01/12/2013 12/28/2013 Overview: - Not acute - platelet in previous admission 141, todays labs pending - PREVIOUS ANTI PF4 negative - 4 T test score 4- intermediate probability, antiPF4 neg - could be 2/2 lamotrigine vs rituximab (althoug incidence more in RA patients) - no symptoms currently PLAN: - monitor blood counts Urgency of urination 09/10/2012 03/25/2018 Frequency of urination 09/10/2012 8 Duodenitis without mention of hemorrhage 012 03/25/2018 Drug induced neutropenia(288.03) 05/14/2012 03/25/2018 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 Breslow 5.3 mm, Yfn IV, Mitotic rate 5/ sq mm. documented as of this encounter (statuses as of 10/11/2022) [facility] History of Past illness Narrative* Problem Noted Date Resolved Date Cellulitis of left lower extremity 09/29/2020 10/06/2021 [place] (acute kidney injury) 09/29/20202021 Functional dyspepsia 02/11/2018 03/25/2018 Overview: Added automatically from request for surgery [id number] History of pulmonary embolism 10/30/2016 History of DVT (deep vein thrombosis) 10/30/2016 03/25/2018 Vertigo 05/04/2014 03/25/2018 Dizziness 03/13/2014 03/25/2018 Overview: History: - discharged from the hospital in February after a surgical EEG electrode placement, normal mentation - went to rehab and siccessfully completed rehab for 4 weeks - reached home appx 1 week back - per patient, there was some confusion regarding which anti epileptic medications he was supposed to be on. Noticed increased diziness since about 3 days back.Did not miss any of his medication doses/ no aura/ no tonic clonic movements/ no falls/ no focal weakness. Called up Dr Xie (his neurologist) and was asked to go to the ED. 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 and transferred to the [facility] for further evaluation - no complains today other than nausea - Tried calling his pharmacy in the evening to reach them, unable to get a response Assessment: - light headedness secondary to polypharmacy and inadvertent overdose vs subclinical seizures Plan: - symptoms already improved after adjusting medications - Epilepsy/ neurology Follow up after discharge DVT of proximal leg (deep vein thrombosis) 01/2703/25/2018 Calf DVT (deep venous thrombosis) 01/27/2014 03/25/2018 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 pylori infection 11/04/2013 03/25/2018 Obesity 10/06/2013 03/25/2018 Decreased libido 07/22/2013 03/25/2018 History of DVT/PE 01/12/2013 03/25/2018 Overview: - history of saddle PE in 2010 - IVC filter placed in 2011 possible in the setting of increased risk of falls while on coumadin - coumadin use complaicated by GI bleeding in the setting of supratherapeutic INR, warfarin stopped in 11/2012 - Repeat DVT involving common iliac/femoral and IVD distal to the filter in 01/2013 while off coumadin, restarted on coumadin - Currently sub therapeutic on coumadin PLAN: -Increase coumadin to 7.5 mg daily - continue coumadin for life in the setting of PE Continue to bridge with lovenox as INR subtherapeutic. 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 s/p clinical remission and now on Rituximab every 2 months , O/P oncologist Dr Ruiz - Epilepsy since , grand mal seizures s/p SEEG placement on 01/23 - 01/27 with localzation of seizure focus to the left temporal lobe, no grand mal seizures this year, follows up with Dr Xie for epilepsy, on Lacosamide, lamotrigine, keppra and clonazepam with confusion regarding his current medications - History of DVT PE, saddle PE 2010 started on coumadin c/b GI bleed in the setting of supratherapeutic INR, IVC filter placement 04/2012 in the setting of GI bleed and fall risk but continued on coumadin till 11/2012 . Recent DVT in the common iliac, femoral and IVC distal to the IVD filter in 01/2013 while off coumadin. Currently on coumadin and no bleeding episodes/ falls Who is transferred from [facility] for the further evaluation of his dizziness which started about 3 -4 days ago and is now resolved Thrombocytopenia 01/12/2013 12/28/2013 Overview: - Not acute - platelet in previous admission 141, todays labs pending - PREVIOUS ANTI PF4 negative - 4 T test score 4- intermediate probability, antiPF4 neg - could be 2/2 lamotrigine vs rituximab (althoug incidence more in RA patients) - no symptoms currently PLAN: - monitor blood counts Urgency of urination 09/10/2012 03/25/2018 Frequency of urination 09/10/2012 8 Duodenitis without mention of hemorrhage 012 03/25/2018 Drug induced neutropenia(288.03) 05/14/2012 03/25/2018 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 Breslow 5.3 mm, Yfn IV, Mitotic rate 5/ sq mm. documented as of this encounter (statuses as of 10/12/2022) [facility] History of Past illness Narrative* Problem Noted Date Resolved Date Cellulitis of left lower extremity 09/29/2020 10/06/2021 [place] (acute kidney injury) 09/29/20202021 Functional dyspepsia 02/11/2018 03/25/2018 Overview: Added automatically from request for surgery [id number] History of pulmonary embolism 10/30/2016 History of DVT (deep vein thrombosis) 10/30/2016 03/25/2018 Vertigo 05/04/2014 03/25/2018 Dizziness 03/13/2014 03/25/2018 Overview: History: - discharged from the hospital in February after a surgical EEG electrode placement, normal mentation - went to rehab and siccessfully completed rehab for 4 weeks - reached home appx 1 week back - per patient, there was some confusion regarding which anti epileptic medications he was supposed to be on. Noticed increased diziness since about 3 days back.Did not miss any of his medication doses/ no aura/ no tonic clonic movements/ no falls/ no focal weakness. Called up Dr Xie (his neurologist) and was asked to go to the ED. 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 and transferred to the [facility] for further evaluation - no complains today other than nausea - Tried calling his pharmacy in the evening to reach them, unable to get a response Assessment: - light headedness secondary to polypharmacy and inadvertent overdose vs subclinical seizures Plan: - symptoms already improved after adjusting medications - Epilepsy/ neurology Follow up after discharge DVT of proximal leg (deep vein thrombosis) 01/2703/25/2018 Calf DVT (deep venous thrombosis) 01/27/2014 03/25/2018 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 pylori infection 11/04/2013 03/25/2018 Obesity 10/06/2013 03/25/2018 Decreased libido 07/22/2013 03/25/2018 History of DVT/PE 01/12/2013 03/25/2018 Overview: - history of saddle PE in 2010 - IVC filter placed in 2011 possible in the setting of increased risk of falls while on coumadin - coumadin use complaicated by GI bleeding in the setting of supratherapeutic INR, warfarin stopped in 11/2012 - Repeat DVT involving common iliac/femoral and IVD distal to the filter in 01/2013 while off coumadin, restarted on coumadin - Currently sub therapeutic on coumadin PLAN: -Increase coumadin to 7.5 mg daily - continue coumadin for life in the setting of PE Continue to bridge with lovenox as INR subtherapeutic. 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 s/p clinical remission and now on Rituximab every 2 months , O/P oncologist Dr Ruiz - Epilepsy since , grand mal seizures s/p SEEG placement on 01/23 - 01/27 with localzation of seizure focus to the left temporal lobe, no grand mal seizures this year, follows up with Dr Xie for epilepsy, on Lacosamide, lamotrigine, keppra and clonazepam with confusion regarding his current medications - History of DVT PE, saddle PE 2010 started on coumadin c/b GI bleed in the setting of supratherapeutic INR, IVC filter placement 04/2012 in the setting of GI bleed and fall risk but continued on coumadin till 11/2012 . Recent DVT in the common iliac, femoral and IVC distal to the IVD filter in 01/2013 while off coumadin. Currently on coumadin and no bleeding episodes/ falls Who is transferred from [facility] for the further evaluation of his dizziness which started about 3 -4 days ago and is now resolved Thrombocytopenia 01/12/2013 12/28/2013 Overview: - Not acute - platelet in previous admission 141, todays labs pending - PREVIOUS ANTI PF4 negative - 4 T test score 4- intermediate probability, antiPF4 neg - could be 2/2 lamotrigine vs rituximab (althoug incidence more in RA patients) - no symptoms currently PLAN: - monitor blood counts Urgency of urination 09/10/2012 03/25/2018 Frequency of urination 09/10/2012 8 Duodenitis without mention of hemorrhage 012 03/25/2018 Drug induced neutropenia(288.03) 05/14/2012 03/25/2018 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 Breslow 5.3 mm, Yfn IV, Mitotic rate 5/ sq mm. documented as of this encounter (statuses as of 10/16/2022) [facility] History of Past illness Narrative* Problem Noted Date Resolved Date Cellulitis of left lower extremity 09/29/2020 10/06/2021 [place] (acute kidney injury) 09/29/20202021 Functional dyspepsia 02/11/2018 03/25/2018 Overview: Added automatically from request for surgery [id number] History of pulmonary embolism 10/30/2016 History of DVT (deep vein thrombosis) 10/30/2016 03/25/2018 Vertigo 05/04/2014 03/25/2018 Dizziness 03/13/2014 03/25/2018 Overview: History: - discharged from the hospital in February after a surgical EEG electrode placement, normal mentation - went to rehab and siccessfully completed rehab for 4 weeks - reached home appx 1 week back - per patient, there was some confusion regarding which anti epileptic medications he was supposed to be on. Noticed increased diziness since about 3 days back.Did not miss any of his medication doses/ no aura/ no tonic clonic movements/ no falls/ no focal weakness. Called up Dr Xie (his neurologist) and was asked to go to the ED. 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 and transferred to the [facility] for further evaluation - no complains today other than nausea - Tried calling his pharmacy in the evening to reach them, unable to get a response Assessment: - light headedness secondary to polypharmacy and inadvertent overdose vs subclinical seizures Plan: - symptoms already improved after adjusting medications - Epilepsy/ neurology Follow up after discharge DVT of proximal leg (deep vein thrombosis) 01/2703/25/2018 Calf DVT (deep venous thrombosis) 01/27/2014 03/25/2018 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 pylori infection 11/04/2013 03/25/2018 Obesity 10/06/2013 03/25/2018 Decreased libido 07/22/2013 03/25/2018 History of DVT/PE 01/12/2013 03/25/2018 Overview: - history of saddle PE in 2010 - IVC filter placed in 2011 possible in the setting of increased risk of falls while on coumadin - coumadin use complaicated by GI bleeding in the setting of supratherapeutic INR, warfarin stopped in 11/2012 - Repeat DVT involving common iliac/femoral and IVD distal to the filter in 01/2013 while off coumadin, restarted on coumadin - Currently sub therapeutic on coumadin PLAN: -Increase coumadin to 7.5 mg daily - continue coumadin for life in the setting of PE Continue to bridge with lovenox as INR subtherapeutic. Follow PT/INR daily while in hospital 5 days Lovenox needed at discharge - social work trying to arrange as patient has no coverage F/U PT/INR 815 as outpatient arranged SUMMARY 01/12/2013 03/25/2018 Overview: Mr Breen is a 58 y M with a medical history significant for: - Grade 3 Follicilar lymphoma, 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 s/p clinical remission and now on Rituximab every 2 months , O/P oncologist Dr Ruiz - Epilepsy since , grand mal seizures s/p SEEG placement on 01/23 - 01/27 with localzation of seizure focus to the left temporal lobe, no grand mal seizures this year, follows up with Dr Xie for epilepsy, on Lacosamide, lamotrigine, keppra and clonazepam with confusion regarding his current medications - History of DVT PE, saddle PE 2010 started on coumadin c/b GI bleed in the setting of supratherapeutic INR, IVC filter placement 04/2012 in the setting of GI bleed and fall risk but continued on coumadin till 11/2012 . Recent DVT in the common iliac, femoral and IVC distal to the IVD filter in 01/2013 while off coumadin. Currently on coumadin and no bleeding episodes/ falls Who is transferred from [facility] for the further evaluation of his dizziness which started about 3 -4 days ago and is now resolved Thrombocytopenia 01/12/2013 12/28/2013 Overview: - Not acute - platelet in previous admission 141, todays labs pending - PREVIOUS ANTI PF4 negative - 4 T test score 4- intermediate probability, antiPF4 neg - could be 2/2 lamotrigine vs rituximab (althoug incidence more in RA patients) - no symptoms currently PLAN: - monitor blood counts Urgency of urination 09/10/2012 03/25/2018 Frequency of urination 09/10/2012 8 Duodenitis without mention of hemorrhage 012 03/25/2018 Drug induced neutropenia(288.03) 05/14/2012 03/25/2018 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 Breslow 5.3 mm, Yfn IV, Mitotic rate 5/ sq mm. documented as of this encounter (statuses as of 10/20/2022) [facility]02-24-2021 History of Past illness Narrative* Problem Noted Date Resolved Date Cellulitis of left lower extremity 09/29/2020 10/06/2021 [place] (acute kidney injury) 09/29/20202021 Functional dyspepsia 02/11/2018 03/25/2018 Overview: Added automatically from request for surgery [id number] History of pulmonary embolism 10/30/2016 History of DVT (deep vein thrombosis) 10/30/2016 03/25/2018 Vertigo 05/04/2014 03/25/2018 Dizziness 03/13/2014 03/25/2018 Overview: History: - discharged from the hospital in February after a surgical EEG electrode placement, normal mentation - went to rehab and siccessfully completed rehab for 4 weeks - reached home appx 1 week back - per patient, there was some confusion regarding which anti epileptic medications he was supposed to be on. Noticed increased diziness since about 3 days back.Did not miss any of his medication doses/ no aura/ no tonic clonic movements/ no falls/ no focal weakness. Called up Dr Xie (his neurologist) and was asked to go to the ED. 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 and transferred to the [facility] for further evaluation - no complains today other than nausea - Tried calling his pharmacy in the evening to reach them, unable to get a response Assessment: - light headedness secondary to polypharmacy and inadvertent overdose vs subclinical seizures Plan: - symptoms already improved after adjusting medications - Epilepsy/ neurology Follow up after discharge DVT of proximal leg (deep vein thrombosis) 01/2703/25/2018 Calf DVT (deep venous thrombosis) 01/27/2014 03/25/2018 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 pylori infection 11/04/2013 03/25/2018 Obesity 10/06/2013 03/25/2018 Decreased libido 07/22/2013 03/25/2018 History of DVT/PE 01/12/2013 03/25/2018 Overview: - history of saddle PE in 2010 - IVC filter placed in 2011 possible in the setting of increased risk of falls while on coumadin - coumadin use complaicated by GI bleeding in the setting of supratherapeutic INR, warfarin stopped in 11/2012 - Repeat DVT involving common iliac/femoral and IVD distal to the filter in 01/2013 while off coumadin, restarted on coumadin - Currently sub therapeutic on coumadin PLAN: -Increase coumadin to 7.5 mg daily - continue coumadin for life in the setting of PE Continue to bridge with lovenox as INR subtherapeutic. 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 s/p clinical remission and now on Rituximab every 2 months , O/P oncologist Dr Ruiz - Epilepsy since , grand mal seizures s/p SEEG placement on 01/23 - 01/27 with localzation of seizure focus to the left temporal lobe, no grand mal seizures this year, follows up with Dr Xie for epilepsy, on Lacosamide, lamotrigine, keppra and clonazepam with confusion regarding his current medications - History of DVT PE, saddle PE 2010 started on coumadin c/b GI bleed in the setting of supratherapeutic INR, IVC filter placement 04/2012 in the setting of GI bleed and fall risk but continued on coumadin till 11/2012 . Recent DVT in the common iliac, femoral and IVC distal to the IVD filter in 01/2013 while off coumadin. Currently on coumadin and no bleeding episodes/ falls Who is transferred from [facility] for the further evaluation of his dizziness which started about 3 -4 days ago and is now resolved Thrombocytopenia 01/12/2013 12/28/2013 Overview: - Not acute - platelet in previous admission 141, todays labs pending - PREVIOUS ANTI PF4 negative - 4 T test score 4- intermediate probability, antiPF4 neg - could be 2/2 lamotrigine vs rituximab (althoug incidence more in RA patients) - no symptoms currently PLAN: - monitor blood counts Urgency of urination 09/10/2012 03/25/2018 Frequency of urination 09/10/2012 8 Duodenitis without mention of hemorrhage 012 03/25/2018 Drug induced neutropenia(288.03) 05/14/2012 03/25/2018 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 Breslow 5.3 mm, Yfn IV, Mitotic rate 5/ sq mm. documented as of this encounter (statuses as of 11/03/2022) [facility] History of Past illness Narrative* Problem Noted Date Resolved Date Cellulitis of left lower extremity 09/29/2020 10/06/2021 [place] (acute kidney injury) 09/29/20202021 Functional dyspepsia 02/11/2018 03/25/2018 Overview: Added automatically from request for surgery [id number] History of pulmonary embolism 10/30/2016 History of DVT (deep vein thrombosis) 10/30/2016 03/25/2018 Vertigo 05/04/2014 03/25/2018 Dizziness 03/13/2014 03/25/2018 Overview: History: - discharged from the hospital in February after a surgical EEG electrode placement, normal mentation - went to rehab and siccessfully completed rehab for 4 weeks - reached home appx 1 week back - per patient, there was some confusion regarding which anti epileptic medications he was supposed to be on. Noticed increased diziness since about 3 days back.Did not miss any of his medication doses/ no aura/ no tonic clonic movements/ no falls/ no focal weakness. Called up Dr Xie (his neurologist) and was asked to go to the ED. 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 and transferred to the [facility] for further evaluation - no complains today other than nausea - Tried calling his pharmacy in the evening to reach them, unable to get a response Assessment: - light headedness secondary to polypharmacy and inadvertent overdose vs subclinical seizures Plan: - symptoms already improved after adjusting medications - Epilepsy/ neurology Follow up after discharge DVT of proximal leg (deep vein thrombosis) 01/2703/25/2018 Calf DVT (deep venous thrombosis) 01/27/2014 03/25/2018 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 pylori infection 11/04/2013 03/25/2018 Obesity 10/06/2013 03/25/2018 Decreased libido 07/22/2013 03/25/2018 History of DVT/PE 01/12/2013 03/25/2018 Overview: - history of saddle PE in 2010 - IVC filter placed in 2011 possible in the setting of increased risk of falls while on coumadin - coumadin use complaicated by GI bleeding in the setting of supratherapeutic INR, warfarin stopped in 11/2012 - Repeat DVT involving common iliac/femoral and IVD distal to the filter in 01/2013 while off coumadin, restarted on coumadin - Currently sub therapeutic on coumadin PLAN: -Increase coumadin to 7.5 mg daily - continue coumadin for life in the setting of PE Continue to bridge with lovenox as INR subtherapeutic. 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 s/p clinical remission and now on Rituximab every 2 months , O/P oncologist Dr Ruiz - Epilepsy since , grand mal seizures s/p SEEG placement on 01/23 - 01/27 with localzation of seizure focus to the left temporal lobe, no grand mal seizures this year, follows up with Dr Xie for epilepsy, on Lacosamide, lamotrigine, keppra and clonazepam with confusion regarding his current medications - History of DVT PE, saddle PE 2010 started on coumadin c/b GI bleed in the setting of supratherapeutic INR, IVC filter placement 04/2012 in the setting of GI bleed and fall risk but continued on coumadin till 11/2012 . Recent DVT in the common iliac, femoral and IVC distal to the IVD filter in 01/2013 while off coumadin. Currently on coumadin and no bleeding episodes/ falls Who is transferred from [facility] for the further evaluation of his dizziness which started about 3 -4 days ago and is now resolved Thrombocytopenia 01/12/2013 12/28/2013 Overview: - Not acute - platelet in previous admission 141, todays labs pending - PREVIOUS ANTI PF4 negative - 4 T test score 4- intermediate probability, antiPF4 neg - could be 2/2 lamotrigine vs rituximab (althoug incidence more in RA patients) - no symptoms currently PLAN: - monitor blood counts Urgency of urination 09/10/2012 03/25/2018 Frequency of urination 09/10/2012 8 Duodenitis without mention of hemorrhage 012 03/25/2018 Drug induced neutropenia(288.03) 05/14/2012 03/25/2018 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 Breslow 5.3 mm, Yfn IV, Mitotic rate 5/ sq mm. documented as of this encounter (statuses as of 11/07/2022) [facility] History of Past illness Narrative* Problem Noted Date Resolved Date Cellulitis of left lower extremity 09/29/2020 10/06/2021 [place] (acute kidney injury) 09/29/20202021 Functional dyspepsia 02/11/2018 03/25/2018 Overview: Added automatically from request for surgery [id number] History of pulmonary embolism 10/30/2016 History of DVT (deep vein thrombosis) 10/30/2016 03/25/2018 Vertigo 05/04/2014 03/25/2018 Dizziness 03/13/2014 03/25/2018 Overview: History: - discharged from the hospital in February after a surgical EEG electrode placement, normal mentation - went to rehab and siccessfully completed rehab for 4 weeks - reached home appx 1 week back - per patient, there was some confusion regarding which anti epileptic medications he was supposed to be on. Noticed increased diziness since about 3 days back.Did not miss any of his medication doses/ no aura/ no tonic clonic movements/ no falls/ no focal weakness. Called up Dr Xie (his neurologist) and was asked to go to the ED. 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 and transferred to the [facility] for further evaluation - no complains today other than nausea - Tried calling his pharmacy in the evening to reach them, unable to get a response Assessment: - light headedness secondary to polypharmacy and inadvertent overdose vs subclinical seizures Plan: - symptoms already improved after adjusting medications - Epilepsy/ neurology Follow up after discharge DVT of proximal leg (deep vein thrombosis) 01/2703/25/2018 Calf DVT (deep venous thrombosis) 01/27/2014 03/25/2018 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 pylori infection 11/04/2013 03/25/2018 Obesity 10/06/2013 03/25/2018 Decreased libido 07/22/2013 03/25/2018 History of DVT/PE 01/12/2013 03/25/2018 Overview: - history of saddle PE in 2010 - IVC filter placed in 2011 possible in the setting of increased risk of falls while on coumadin - coumadin use complaicated by GI bleeding in the setting of supratherapeutic INR, warfarin stopped in 11/2012 - Repeat DVT involving common iliac/femoral and IVD distal to the filter in 01/2013 while off coumadin, restarted on coumadin - Currently sub therapeutic on coumadin PLAN: -Increase coumadin to 7.5 mg daily - continue coumadin for life in the setting of PE Continue to bridge with lovenox as INR subtherapeutic. 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 s/p clinical remission and now on Rituximab every 2 months , O/P oncologist Dr Ruiz - Epilepsy since , grand mal seizures s/p SEEG placement on 01/23 - 01/27 with localzation of seizure focus to the left temporal lobe, no grand mal seizures this year, follows up with Dr Xie for epilepsy, on Lacosamide, lamotrigine, keppra and clonazepam with confusion regarding his current medications - History of DVT PE, saddle PE 2010 started on coumadin c/b GI bleed in the setting of supratherapeutic INR, IVC filter placement 04/2012 in the setting of GI bleed and fall risk but continued on coumadin till 11/2012 . Recent DVT in the common iliac, femoral and IVC distal to the IVD filter in 01/2013 while off coumadin. Currently on coumadin and no bleeding episodes/ falls Who is transferred from [facility] for the further evaluation of his dizziness which started about 3 -4 days ago and is now resolved Thrombocytopenia 01/12/2013 12/28/2013 Overview: - Not acute - platelet in previous admission 141, todays labs pending - PREVIOUS ANTI PF4 negative - 4 T test score 4- intermediate probability, antiPF4 neg - could be 2/2 lamotrigine vs rituximab (althoug incidence more in RA patients) - no symptoms currently PLAN: - monitor blood counts Urgency of urination 09/10/2012 03/25/2018 Frequency of urination 09/10/2012 8 Duodenitis without mention of hemorrhage 012 03/25/2018 Drug induced neutropenia(288.03) 05/14/2012 03/25/2018 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 Breslow 5.3 mm, Yfn IV, Mitotic rate 5/ sq mm. documented as of this encounter (statuses as of 11/14/2022) [facility] History of Past illness Narrative* Problem Noted Date Resolved Date Cellulitis of left lower extremity 09/29/2020 10/06/2021 [place] (acute kidney injury) 09/29/20202021 Functional dyspepsia 02/11/2018 03/25/2018 Overview: Added automatically from request for surgery [id number] History of pulmonary embolism 10/30/2016 History of DVT (deep vein thrombosis) 10/30/2016 03/25/2018 Vertigo 05/04/2014 03/25/2018 Dizziness 03/13/2014 03/25/2018 Overview: History: - discharged from the hospital in February after a surgical EEG electrode placement, normal mentation - went to rehab and siccessfully completed rehab for 4 weeks - reached home appx 1 week back - per patient, there was some confusion regarding which anti epileptic medications he was supposed to be on. Noticed increased diziness since about 3 days back.Did not miss any of his medication doses/ no aura/ no tonic clonic movements/ no falls/ no focal weakness. Called up Dr Xie (his neurologist) and was asked to go to the ED. 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 and transferred to the [facility] for further evaluation - no complains today other than nausea - Tried calling his pharmacy in the evening to reach them, unable to get a response Assessment: - light headedness secondary to polypharmacy and inadvertent overdose vs subclinical seizures Plan: - symptoms already improved after adjusting medications - Epilepsy/ neurology Follow up after discharge DVT of proximal leg (deep vein thrombosis) 01/2703/25/2018 Calf DVT (deep venous thrombosis) 01/27/2014 03/25/2018 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 pylori infection 11/04/2013 03/25/2018 Obesity 10/06/2013 03/25/2018 Decreased libido 07/22/2013 03/25/2018 History of DVT/PE 01/12/2013 03/25/2018 Overview: - history of saddle PE in 2010 - IVC filter placed in 2011 possible in the setting of increased risk of falls while on coumadin - coumadin use complaicated by GI bleeding in the setting of supratherapeutic INR, warfarin stopped in 11/2012 - Repeat DVT involving common iliac/femoral and IVD distal to the filter in 01/2013 while off coumadin, restarted on coumadin - Currently sub therapeutic on coumadin PLAN: -Increase coumadin to 7.5 mg daily - continue coumadin for life in the setting of PE Continue to bridge with lovenox as INR subtherapeutic. 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 s/p clinical remission and now on Rituximab every 2 months , O/P oncologist Dr Ruiz - Epilepsy since , grand mal seizures s/p SEEG placement on 01/23 - 01/27 with localzation of seizure focus to the left temporal lobe, no grand mal seizures this year, follows up with Dr Xie for epilepsy, on Lacosamide, lamotrigine, keppra and clonazepam with confusion regarding his current medications - History of DVT PE, saddle PE 2010 started on coumadin c/b GI bleed in the setting of supratherapeutic INR, IVC filter placement 04/2012 in the setting of GI bleed and fall risk but continued on coumadin till 11/2012 . Recent DVT in the common iliac, femoral and IVC distal to the IVD filter in 01/2013 while off coumadin. Currently on coumadin and no bleeding episodes/ falls Who is transferred from [facility] for the further evaluation of his dizziness which started about 3 -4 days ago and is now resolved Thrombocytopenia 01/12/2013 12/28/2013 Overview: - Not acute - platelet in previous admission 141, todays labs pending - PREVIOUS ANTI PF4 negative - 4 T test score 4- intermediate probability, antiPF4 neg - could be 2/2 lamotrigine vs rituximab (althoug incidence more in RA patients) - no symptoms currently PLAN: - monitor blood counts Urgency of urination 09/10/2012 03/25/2018 Frequency of urination 09/10/2012 8 Duodenitis without mention of hemorrhage 012 03/25/2018 Drug induced neutropenia(288.03) 05/14/2012 03/25/2018 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 Breslow 5.3 mm, Yfn IV, Mitotic rate 5/ sq mm. documented as of this encounter (statuses as of 11/14/2022) [facility] History of Past illness Narrative* Problem Noted Date Resolved Date Cellulitis of left lower extremity 09/29/2020 10/06/2021 [place] (acute kidney injury) 09/29/20202021 Functional dyspepsia 02/11/2018 03/25/2018 Overview: Added automatically from request for surgery [id number] History of pulmonary embolism 10/30/2016 History of DVT (deep vein thrombosis) 10/30/2016 03/25/2018 Vertigo 05/04/2014 03/25/2018 Dizziness 03/13/2014 03/25/2018 Overview: History: - discharged from the hospital in February after a surgical EEG electrode placement, normal mentation - went to rehab and siccessfully completed rehab for 4 weeks - reached home appx 1 week back - per patient, there was some confusion regarding which anti epileptic medications he was supposed to be on. Noticed increased diziness since about 3 days back.Did not miss any of his medication doses/ no aura/ no tonic clonic movements/ no falls/ no focal weakness. Called up Dr Xie (his neurologist) and was asked to go to the ED. 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 and transferred to the [facility] for further evaluation - no complains today other than nausea - Tried calling his pharmacy in the evening to reach them, unable to get a response Assessment: - light headedness secondary to polypharmacy and inadvertent overdose vs subclinical seizures Plan: - symptoms already improved after adjusting medications - Epilepsy/ neurology Follow up after discharge DVT of proximal leg (deep vein thrombosis) 01/2703/25/2018 Calf DVT (deep venous thrombosis) 01/27/2014 03/25/2018 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 pylori infection 11/04/2013 03/25/2018 Obesity 10/06/2013 03/25/2018 Decreased libido 07/22/2013 03/25/2018 History of DVT/PE 01/12/2013 03/25/2018 Overview: - history of saddle PE in 2010 - IVC filter placed in 2011 possible in the setting of increased risk of falls while on coumadin - coumadin use complaicated by GI bleeding in the setting of supratherapeutic INR, warfarin stopped in 11/2012 - Repeat DVT involving common iliac/femoral and IVD distal to the filter in 01/2013 while off coumadin, restarted on coumadin - Currently sub therapeutic on coumadin PLAN: -Increase coumadin to 7.5 mg daily - continue coumadin for life in the setting of PE Continue to bridge with lovenox as INR subtherapeutic. 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 s/p clinical remission and now on Rituximab every 2 months , O/P oncologist Dr Ruiz - Epilepsy since , grand mal seizures s/p SEEG placement on 01/23 - 01/27 with localzation of seizure focus to the left temporal lobe, no grand mal seizures this year, follows up with Dr Xie for epilepsy, on Lacosamide, lamotrigine, keppra and clonazepam with confusion regarding his current medications - History of DVT PE, saddle PE 2010 started on coumadin c/b GI bleed in the setting of supratherapeutic INR, IVC filter placement 04/2012 in the setting of GI bleed and fall risk but continued on coumadin till 11/2012 . Recent DVT in the common iliac, femoral and IVC distal to the IVD filter in 01/2013 while off coumadin. Currently on coumadin and no bleeding episodes/ falls Who is transferred from [facility] for the further evaluation of his dizziness which started about 3 -4 days ago and is now resolved Thrombocytopenia 01/12/2013 12/28/2013 Overview: - Not acute - platelet in previous admission 141, todays labs pending - PREVIOUS ANTI PF4 negative - 4 T test score 4- intermediate probability, antiPF4 neg - could be 2/2 lamotrigine vs rituximab (althoug incidence more in RA patients) - no symptoms currently PLAN: - monitor blood counts Urgency of urination 09/10/2012 03/25/2018 Frequency of urination 09/10/2012 8 Duodenitis without mention of hemorrhage 012 03/25/2018 Drug induced neutropenia(288.03) 05/14/2012 03/25/2018 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 Breslow 5.3 mm, Yfn IV, Mitotic rate 5/ sq mm. documented as of this encounter (statuses as of 11/27/2022) [facility]02-24-2021 History of Past illness Narrative* Problem Noted Date Resolved Date Cellulitis of left lower extremity 09/29/2020 10/06/2021 [place] (acute kidney injury) 09/29/20202021 Functional dyspepsia 02/11/2018 03/25/2018 Overview: Added automatically from request for surgery [id number] History of pulmonary embolism 10/30/2016 History of DVT (deep vein thrombosis) 10/30/2016 03/25/2018 Vertigo 05/04/2014 03/25/2018 Dizziness 03/13/2014 03/25/2018 Overview: History: - discharged from the hospital in February after a surgical EEG electrode placement, normal mentation - went to rehab and siccessfully completed rehab for 4 weeks - reached home appx 1 week back - per patient, there was some confusion regarding which anti epileptic medications he was supposed to be on. Noticed increased diziness since about 3 days back.Did not miss any of his medication doses/ no aura/ no tonic clonic movements/ no falls/ no focal weakness. Called up Dr Xie (his neurologist) and was asked to go to the ED. 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 and transferred to the [facility] for further evaluation - no complains today other than nausea - Tried calling his pharmacy in the evening to reach them, unable to get a response Assessment: - light headedness secondary to polypharmacy and inadvertent overdose vs subclinical seizures Plan: - symptoms already improved after adjusting medications - Epilepsy/ neurology Follow up after discharge DVT of proximal leg (deep vein thrombosis) 01/2703/25/2018 Calf DVT (deep venous thrombosis) 01/27/2014 03/25/2018 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 pylori infection 11/04/2013 03/25/2018 Obesity 10/06/2013 03/25/2018 Decreased libido 07/22/2013 03/25/2018 History of DVT/PE 01/12/2013 03/25/2018 Overview: - history of saddle PE in 2010 - IVC filter placed in 2011 possible in the setting of increased risk of falls while on coumadin - coumadin use complaicated by GI bleeding in the setting of supratherapeutic INR, warfarin stopped in 11/2012 - Repeat DVT involving common iliac/femoral and IVD distal to the filter in 01/2013 while off coumadin, restarted on coumadin - Currently sub therapeutic on coumadin PLAN: -Increase coumadin to 7.5 mg daily - continue coumadin for life in the setting of PE Continue to bridge with lovenox as INR subtherapeutic. 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 s/p clinical remission and now on Rituximab every 2 months , O/P oncologist Dr Ruiz - Epilepsy since , grand mal seizures s/p SEEG placement on 01/23 - 01/27 with localzation of seizure focus to the left temporal lobe, no grand mal seizures this year, follows up with Dr Xie for epilepsy, on Lacosamide, lamotrigine, keppra and clonazepam with confusion regarding his current medications - History of DVT PE, saddle PE 2010 started on coumadin c/b GI bleed in the setting of supratherapeutic INR, IVC filter placement 04/2012 in the setting of GI bleed and fall risk but continued on coumadin till 11/2012 . Recent DVT in the common iliac, femoral and IVC distal to the IVD filter in 01/2013 while off coumadin. Currently on coumadin and no bleeding episodes/ falls Who is transferred from [facility] for the further evaluation of his dizziness which started about 3 -4 days ago and is now resolved Thrombocytopenia 01/12/2013 12/28/2013 Overview: - Not acute - platelet in previous admission 141, todays labs pending - PREVIOUS ANTI PF4 negative - 4 T test score 4- intermediate probability, antiPF4 neg - could be 2/2 lamotrigine vs rituximab (althoug incidence more in RA patients) - no symptoms currently PLAN: - monitor blood counts Urgency of urination 09/10/2012 03/25/2018 Frequency of urination 09/10/2012 8 Duodenitis without mention of hemorrhage 012 03/25/2018 Drug induced neutropenia(288.03) 05/14/2012 03/25/2018 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 Breslow 5.3 mm, Yfn IV, Mitotic rate 5/ sq mm. documented as of this encounter (statuses as of 11/28/2022) [facility] History of Past illness Narrative* Problem Noted Date Resolved Date Cellulitis of left lower extremity 09/29/2020 10/06/2021 [place] (acute kidney injury) 09/29/20202021 Functional dyspepsia 02/11/2018 03/25/2018 Overview: Added automatically from request for surgery [id number] History of pulmonary embolism 10/30/2016 History of DVT (deep vein thrombosis) 10/30/2016 03/25/2018 Vertigo 05/04/2014 03/25/2018 Dizziness 03/13/2014 03/25/2018 Overview: History: - discharged from the hospital in February after a surgical EEG electrode placement, normal mentation - went to rehab and siccessfully completed rehab for 4 weeks - reached home appx 1 week back - per patient, there was some confusion regarding which anti epileptic medications he was supposed to be on. Noticed increased diziness since about 3 days back.Did not miss any of his medication doses/ no aura/ no tonic clonic movements/ no falls/ no focal weakness. Called up Dr Xie (his neurologist) and was asked to go to the ED. 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 and transferred to the [facility] for further evaluation - no complains today other than nausea - Tried calling his pharmacy in the evening to reach them, unable to get a response Assessment: - light headedness secondary to polypharmacy and inadvertent overdose vs subclinical seizures Plan: - symptoms already improved after adjusting medications - Epilepsy/ neurology Follow up after discharge DVT of proximal leg (deep vein thrombosis) 01/2703/25/2018 Calf DVT (deep venous thrombosis) 01/27/2014 03/25/2018 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 pylori infection 11/04/2013 03/25/2018 Obesity 10/06/2013 03/25/2018 Decreased libido 07/22/2013 03/25/2018 History of DVT/PE 01/12/2013 03/25/2018 Overview: - history of saddle PE in 2010 - IVC filter placed in 2011 possible in the setting of increased risk of falls while on coumadin - coumadin use complaicated by GI bleeding in the setting of supratherapeutic INR, warfarin stopped in 11/2012 - Repeat DVT involving common iliac/femoral and IVD distal to the filter in 01/2013 while off coumadin, restarted on coumadin - Currently sub therapeutic on coumadin PLAN: -Increase coumadin to 7.5 mg daily - continue coumadin for life in the setting of PE Continue to bridge with lovenox as INR subtherapeutic. 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 s/p clinical remission and now on Rituximab every 2 months , O/P oncologist Dr Ruiz - Epilepsy since , grand mal seizures s/p SEEG placement on 01/23 - 01/27 with localzation of seizure focus to the left temporal lobe, no grand mal seizures this year, follows up with Dr Xie for epilepsy, on Lacosamide, lamotrigine, keppra and clonazepam with confusion regarding his current medications - History of DVT PE, saddle PE 2010 started on coumadin c/b GI bleed in the setting of supratherapeutic INR, IVC filter placement 04/2012 in the setting of GI bleed and fall risk but continued on coumadin till 11/2012 . Recent DVT in the common iliac, femoral and IVC distal to the IVD filter in 01/2013 while off coumadin. Currently on coumadin and no bleeding episodes/ falls Who is transferred from [facility] for the further evaluation of his dizziness which started about 3 -4 days ago and is now resolved Thrombocytopenia 01/12/2013 12/28/2013 Overview: - Not acute - platelet in previous admission 141, todays labs pending - PREVIOUS ANTI PF4 negative - 4 T test score 4- intermediate probability, antiPF4 neg - could be 2/2 lamotrigine vs rituximab (althoug incidence more in RA patients) - no symptoms currently PLAN: - monitor blood counts Urgency of urination 09/10/2012 03/25/2018 Frequency of urination 09/10/2012 8 Duodenitis without mention of hemorrhage 012 03/25/2018 Drug induced neutropenia(288.03) 05/14/2012 03/25/2018 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 Breslow 5.3 mm, Yfn IV, Mitotic rate 5/ sq mm. documented as of this encounter (statuses as of 11/29/2022) [facility] History of Past illness Narrative* Problem Noted Date Resolved Date Cellulitis of left lower extremity 09/29/2020 10/06/2021 [place] (acute kidney injury) 09/29/20202021 Functional dyspepsia 02/11/2018 03/25/2018 Overview: Added automatically from request for surgery [id number] History of pulmonary embolism 10/30/2016 History of DVT (deep vein thrombosis) 10/30/2016 03/25/2018 Vertigo 05/04/2014 03/25/2018 Dizziness 03/13/2014 03/25/2018 Overview: History: - discharged from the hospital in February after a surgical EEG electrode placement, normal mentation - went to rehab and siccessfully completed rehab for 4 weeks - reached home appx 1 week back - per patient, there was some confusion regarding which anti epileptic medications he was supposed to be on. Noticed increased diziness since about 3 days back.Did not miss any of his medication doses/ no aura/ no tonic clonic movements/ no falls/ no focal weakness. Called up Dr Xie (his neurologist) and was asked to go to the ED. 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 and transferred to the [facility] for further evaluation - no complains today other than nausea - Tried calling his pharmacy in the evening to reach them, unable to get a response Assessment: - light headedness secondary to polypharmacy and inadvertent overdose vs subclinical seizures Plan: - symptoms already improved after adjusting medications - Epilepsy/ neurology Follow up after discharge DVT of proximal leg (deep vein thrombosis) 01/2703/25/2018 Calf DVT (deep venous thrombosis) 01/27/2014 03/25/2018 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 pylori infection 11/04/2013 03/25/2018 Obesity 10/06/2013 03/25/2018 Decreased libido 07/22/2013 03/25/2018 History of DVT/PE 01/12/2013 03/25/2018 Overview: - history of saddle PE in 2010 - IVC filter placed in 2011 possible in the setting of increased risk of falls while on coumadin - coumadin use complaicated by GI bleeding in the setting of supratherapeutic INR, warfarin stopped in 11/2012 - Repeat DVT involving common iliac/femoral and IVD distal to the filter in 01/2013 while off coumadin, restarted on coumadin - Currently sub therapeutic on coumadin PLAN: -Increase coumadin to 7.5 mg daily - continue coumadin for life in the setting of PE Continue to bridge with lovenox as INR subtherapeutic. 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 s/p clinical remission and now on Rituximab every 2 months , O/P oncologist Dr Ruiz - Epilepsy since , grand mal seizures s/p SEEG placement on 01/23 - 01/27 with localzation of seizure focus to the left temporal lobe, no grand mal seizures this year, follows up with Dr Xie for epilepsy, on Lacosamide, lamotrigine, keppra and clonazepam with confusion regarding his current medications - History of DVT PE, saddle PE 2010 started on coumadin c/b GI bleed in the setting of supratherapeutic INR, IVC filter placement 04/2012 in the setting of GI bleed and fall risk but continued on coumadin till 11/2012 . Recent DVT in the common iliac, femoral and IVC distal to the IVD filter in 01/2013 while off coumadin. Currently on coumadin and no bleeding episodes/ falls Who is transferred from [facility] for the further evaluation of his dizziness which started about 3 -4 days ago and is now resolved Thrombocytopenia 01/12/2013 12/28/2013 Overview: - Not acute - platelet in previous admission 141, todays labs pending - PREVIOUS ANTI PF4 negative - 4 T test score 4- intermediate probability, antiPF4 neg - could be 2/2 lamotrigine vs rituximab (althoug incidence more in RA patients) - no symptoms currently PLAN: - monitor blood counts Urgency of urination 09/10/2012 03/25/2018 Frequency of urination 09/10/2012 8 Duodenitis without mention of hemorrhage 012 03/25/2018 Drug induced neutropenia(288.03) 05/14/2012 03/25/2018 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 Breslow 5.3 mm, Yfn IV, Mitotic rate 5/ sq mm. documented as of this encounter (statuses as of 11/29/2022) [facility] History of Past illness Narrative* Problem Noted Date Resolved Date Cellulitis of left lower extremity 09/29/2020 10/06/2021 [place] (acute kidney injury) 09/29/20202021 Functional dyspepsia 02/11/2018 03/25/2018 Overview: Added automatically from request for surgery [id number] History of pulmonary embolism 10/30/2016 History of DVT (deep vein thrombosis) 10/30/2016 03/25/2018 Vertigo 05/04/2014 03/25/2018 Dizziness 03/13/2014 03/25/2018 Overview: History: - discharged from the hospital in February after a surgical EEG electrode placement, normal mentation - went to rehab and siccessfully completed rehab for 4 weeks - reached home appx 1 week back - per patient, there was some confusion regarding which anti epileptic medications he was supposed to be on. Noticed increased diziness since about 3 days back.Did not miss any of his medication doses/ no aura/ no tonic clonic movements/ no falls/ no focal weakness. Called up Dr Xie (his neurologist) and was asked to go to the ED. 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 and transferred to the [facility] for further evaluation - no complains today other than nausea - Tried calling his pharmacy in the evening to reach them, unable to get a response Assessment: - light headedness secondary to polypharmacy and inadvertent overdose vs subclinical seizures Plan: - symptoms already improved after adjusting medications - Epilepsy/ neurology Follow up after discharge DVT of proximal leg (deep vein thrombosis) 01/2703/25/2018 Calf DVT (deep venous thrombosis) 01/27/2014 03/25/2018 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 pylori infection 11/04/2013 03/25/2018 Decreased libido 07/22/2013 03/25/2018 History of DVT/PE 01/12/2013 03/25/2018 Overview: - history of saddle PE in 2010 - IVC filter placed in 2011 possible in the setting of increased risk of falls while on coumadin - coumadin use complaicated by GI bleeding in the setting of supratherapeutic INR, warfarin stopped in 11/2012 - Repeat DVT involving common iliac/femoral and IVD distal to the filter in 01/2013 while off coumadin, restarted on coumadin - Currently sub therapeutic on coumadin PLAN: -Increase coumadin to 7.5 mg daily - continue coumadin for life in the setting of PE Continue to bridge with lovenox as INR subtherapeutic. 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 s/p clinical remission and now on Rituximab every 2 months , O/P oncologist Dr Ruiz - Epilepsy since , grand mal seizures s/p SEEG placement on 01/23 - 01/27 with localzation of seizure focus to the left temporal lobe, no grand mal seizures this year, follows up with Dr Xie for epilepsy, on Lacosamide, lamotrigine, keppra and clonazepam with confusion regarding his current medications - History of DVT PE, saddle PE 2010 started on coumadin c/b GI bleed in the setting of supratherapeutic INR, IVC filter placement 04/2012 in the setting of GI bleed and fall risk but continued on coumadin till 11/2012 . Recent DVT in the common iliac, femoral and IVC distal to the IVD filter in 01/2013 while off coumadin. Currently on coumadin and no bleeding episodes/ falls Who is transferred from [facility] for the further evaluation of his dizziness which started about 3 -4 days ago and is now resolved Thrombocytopenia 01/12/2013 12/28/2013 Overview: - Not acute - platelet in previous admission 141, todays labs pending - PREVIOUS ANTI PF4 negative - 4 T test score 4- intermediate probability, antiPF4 neg - could be 2/2 lamotrigine vs rituximab (althoug incidence more in RA patients) - no symptoms currently PLAN: - monitor blood counts Urgency of urination 09/10/2012 03/25/2018 Frequency of urination 09/10/2012 8 Duodenitis without mention of hemorrhage 012 03/25/2018 Drug induced neutropenia(288.03) 05/14/2012 03/25/2018 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 Breslow 5.3 mm, Yfn IV, Mitotic rate 5/ sq mm. documented as of this encounter (statuses as of 11/30/2022) [facility]02-24-2021 History of Past illness Narrative* Problem Noted Date Resolved Date Cellulitis of left lower extremity 09/29/2020 10/06/2021 [place] (acute kidney injury) 09/29/20202021 Functional dyspepsia 02/11/2018 03/25/2018 Overview: Added automatically from request for surgery [id number] History of pulmonary embolism 10/30/2016 History of DVT (deep vein thrombosis) 10/30/2016 03/25/2018 Vertigo 05/04/2014 03/25/2018 Dizziness 03/13/2014 03/25/2018 Overview: History: - discharged from the hospital in February after a surgical EEG electrode placement, normal mentation - went to rehab and siccessfully completed rehab for 4 weeks - reached home appx 1 week back - per patient, there was some confusion regarding which anti epileptic medications he was supposed to be on. Noticed increased diziness since about 3 days back.Did not miss any of his medication doses/ no aura/ no tonic clonic movements/ no falls/ no focal weakness. Called up Dr Xie (his neurologist) and was asked to go to the ED. 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 and transferred to the [facility] for further evaluation - no complains today other than nausea - Tried calling his pharmacy in the evening to reach them, unable to get a response Assessment: - light headedness secondary to polypharmacy and inadvertent overdose vs subclinical seizures Plan: - symptoms already improved after adjusting medications - Epilepsy/ neurology Follow up after discharge DVT of proximal leg (deep vein thrombosis) 01/2703/25/2018 Calf DVT (deep venous thrombosis) 01/27/2014 03/25/2018 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 pylori infection 11/04/2013 03/25/2018 Decreased libido 07/22/2013 03/25/2018 History of DVT/PE 01/12/2013 03/25/2018 Overview: - history of saddle PE in 2010 - IVC filter placed in 2011 possible in the setting of increased risk of falls while on coumadin - coumadin use complaicated by GI bleeding in the setting of supratherapeutic INR, warfarin stopped in 11/2012 - Repeat DVT involving common iliac/femoral and IVD distal to the filter in 01/2013 while off coumadin, restarted on coumadin - Currently sub therapeutic on coumadin PLAN: -Increase coumadin to 7.5 mg daily - continue coumadin for life in the setting of PE Continue to bridge with lovenox as INR subtherapeutic. 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 s/p clinical remission and now on Rituximab every 2 months , O/P oncologist Dr Ruiz - Epilepsy since , grand mal seizures s/p SEEG placement on 01/23 - 01/27 with localzation of seizure focus to the left temporal lobe, no grand mal seizures this year, follows up with Dr Xie for epilepsy, on Lacosamide, lamotrigine, keppra and clonazepam with confusion regarding his current medications - History of DVT PE, saddle PE 2010 started on coumadin c/b GI bleed in the setting of supratherapeutic INR, IVC filter placement 04/2012 in the setting of GI bleed and fall risk but continued on coumadin till 11/2012 . Recent DVT in the common iliac, femoral and IVC distal to the IVD filter in 01/2013 while off coumadin. Currently on coumadin and no bleeding episodes/ falls Who is transferred from [facility] for the further evaluation of his dizziness which started about 3 -4 days ago and is now resolved Thrombocytopenia 01/12/2013 12/28/2013 Overview: - Not acute - platelet in previous admission 141, todays labs pending - PREVIOUS ANTI PF4 negative - 4 T test score 4- intermediate probability, antiPF4 neg - could be 2/2 lamotrigine vs rituximab (althoug incidence more in RA patients) - no symptoms currently PLAN: - monitor blood counts Urgency of urination 09/10/2012 03/25/2018 Frequency of urination 09/10/2012 8 Duodenitis without mention of hemorrhage 012 03/25/2018 Drug induced neutropenia(288.03) 05/14/2012 03/25/2018 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 Breslow 5.3 mm, Yfn IV, Mitotic rate 5/ sq mm. documented as of this encounter (statuses as of 11/30/2022) [facility]02-[facility]21 History of Past illness Narrative* Problem Noted Date Resolved Date Cellulitis of left lower extremity 09/29/2020 10/06/2021 [place] (acute kidney injury) 09/29/20202021 Functional dyspepsia 02/11/2018 03/25/2018 Overview: Added automatically from request for surgery [id number] History of pulmonary embolism 10/30/2016 History of DVT (deep vein thrombosis) 10/30/2016 03/25/2018 Vertigo 05/04/2014 03/25/2018 Dizziness 03/13/2014 03/25/2018 Overview: History: - discharged from the hospital in February after a surgical EEG electrode placement, normal mentation - went to rehab and siccessfully completed rehab for 4 weeks - reached home appx 1 week back - per patient, there was some confusion regarding which anti epileptic medications he was supposed to be on. Noticed increased diziness since about 3 days back.Did not miss any of his medication doses/ no aura/ no tonic clonic movements/ no falls/ no focal weakness. Called up Dr Xie (his neurologist) and was asked to go to the ED. 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 and transferred to the [facility] for further evaluation - no complains today other than nausea - Tried calling his pharmacy in the evening to reach them, unable to get a response Assessment: - light headedness secondary to polypharmacy and inadvertent overdose vs subclinical seizures Plan: - symptoms already improved after adjusting medications - Epilepsy/ neurology Follow up after discharge DVT of proximal leg (deep vein thrombosis) 01/2703/25/2018 Calf DVT (deep venous thrombosis) 01/27/2014 03/25/2018 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 pylori infection 11/04/2013 03/25/2018 Decreased libido 07/22/2013 03/25/2018 History of DVT/PE 01/12/2013 03/25/2018 Overview: - history of saddle PE in 2010 - IVC filter placed in 2011 possible in the setting of increased risk of falls while on coumadin - coumadin use complaicated by GI bleeding in the setting of supratherapeutic INR, warfarin stopped in 11/2012 - Repeat DVT involving common iliac/femoral and IVD distal to the filter in 01/2013 while off coumadin, restarted on coumadin - Currently sub therapeutic on coumadin PLAN: -Increase coumadin to 7.5 mg daily - continue coumadin for life in the setting of PE Continue to bridge with lovenox as INR subtherapeutic. 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 s/p clinical remission and now on Rituximab every 2 months , O/P oncologist Dr Ruiz - Epilepsy since , grand mal seizures s/p SEEG placement on 01/23 - 01/27 with localzation of seizure focus to the left temporal lobe, no grand mal seizures this year, follows up with Dr Xie for epilepsy, on Lacosamide, lamotrigine, keppra and clonazepam with confusion regarding his current medications - History of DVT PE, saddle PE 2010 started on coumadin c/b GI bleed in the setting of supratherapeutic INR, IVC filter placement 04/2012 in the setting of GI bleed and fall risk but continued on coumadin till 11/2012 . Recent DVT in the common iliac, femoral and IVC distal to the IVD filter in 01/2013 while off coumadin. Currently on coumadin and no bleeding episodes/ falls Who is transferred from [facility] for the further evaluation of his dizziness which started about 3 -4 days ago and is now resolved Thrombocytopenia 01/12/2013 12/28/2013 Overview: - Not acute - platelet in previous admission 141, todays labs pending - PREVIOUS ANTI PF4 negative - 4 T test score 4- intermediate probability, antiPF4 neg - could be 2/2 lamotrigine vs rituximab (althoug incidence more in RA patients) - no symptoms currently PLAN: - monitor blood counts Urgency of urination 09/10/2012 03/25/2018 Frequency of urination 09/10/2012 8 Duodenitis without mention of hemorrhage 012 03/25/2018 Drug induced neutropenia(288.03) 05/14/2012 03/25/2018 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 Breslow 5.3 mm, Yfn IV, Mitotic rate 5/ sq mm. documented as of this encounter (statuses as of 11/30/2022) [facility]02-[facility]21 History of Past illness Narrative* Problem Noted Date Resolved Date Cellulitis of left lower extremity 09/29/2020 10/06/2021 [place] (acute kidney injury) 09/29/20202021 Functional dyspepsia 02/11/2018 03/25/2018 Overview: Added automatically from request for surgery [id number] History of pulmonary embolism 10/30/2016 History of DVT (deep vein thrombosis) 10/30/2016 03/25/2018 Vertigo 05/04/2014 03/25/2018 Dizziness 03/13/2014 03/25/2018 Overview: History: - discharged from the hospital in February after a surgical EEG electrode placement, normal mentation - went to rehab and siccessfully completed rehab for 4 weeks - reached home appx 1 week back - per patient, there was some confusion regarding which anti epileptic medications he was supposed to be on. Noticed increased diziness since about 3 days back.Did not miss any of his medication doses/ no aura/ no tonic clonic movements/ no falls/ no focal weakness. Called up Dr Xie (his neurologist) and was asked to go to the ED. 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 and transferred to the [facility] for further evaluation - no complains today other than nausea - Tried calling his pharmacy in the evening to reach them, unable to get a response Assessment: - light headedness secondary to polypharmacy and inadvertent overdose vs subclinical seizures Plan: - symptoms already improved after adjusting medications - Epilepsy/ neurology Follow up after discharge DVT of proximal leg (deep vein thrombosis) 01/2703/25/2018 Calf DVT (deep venous thrombosis) 01/27/2014 03/25/2018 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 pylori infection 11/04/2013 03/25/2018 Decreased libido 07/22/2013 03/25/2018 History of DVT/PE 01/12/2013 03/25/2018 Overview: - history of saddle PE in 2010 - IVC filter placed in 2011 possible in the setting of increased risk of falls while on coumadin - coumadin use complaicated by GI bleeding in the setting of supratherapeutic INR, warfarin stopped in 11/2012 - Repeat DVT involving common iliac/femoral and IVD distal to the filter in 01/2013 while off coumadin, restarted on coumadin - Currently sub therapeutic on coumadin PLAN: -Increase coumadin to 7.5 mg daily - continue coumadin for life in the setting of PE Continue to bridge with lovenox as INR subtherapeutic. 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 s/p clinical remission and now on Rituximab every 2 months , O/P oncologist Dr Ruiz - Epilepsy since , grand mal seizures s/p SEEG placement on 01/23 - 01/27 with localzation of seizure focus to the left temporal lobe, no grand mal seizures this year, follows up with Dr Xie for epilepsy, on Lacosamide, lamotrigine, keppra and clonazepam with confusion regarding his current medications - History of DVT PE, saddle PE 2010 started on coumadin c/b GI bleed in the setting of supratherapeutic INR, IVC filter placement 04/2012 in the setting of GI bleed and fall risk but continued on coumadin till 11/2012 . Recent DVT in the common iliac, femoral and IVC distal to the IVD filter in 01/2013 while off coumadin. Currently on coumadin and no bleeding episodes/ falls Who is transferred from [facility] for the further evaluation of his dizziness which started about 3 -4 days ago and is now resolved Thrombocytopenia 01/12/2013 12/28/2013 Overview: - Not acute - platelet in previous admission 141, todays labs pending - PREVIOUS ANTI PF4 negative - 4 T test score 4- intermediate probability, antiPF4 neg - could be 2/2 lamotrigine vs rituximab (althoug incidence more in RA patients) - no symptoms currently PLAN: - monitor blood counts Urgency of urination 09/10/2012 03/25/2018 Frequency of urination 09/10/2012 8 Duodenitis without mention of hemorrhage 012 03/25/2018 Drug induced neutropenia(288.03) 05/14/2012 03/25/2018 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 Breslow 5.3 mm, Yfn IV, Mitotic rate 5/ sq mm. documented as of this encounter (statuses as of 12/05/2022) [facility] History of Past illness Narrative* Problem Noted Date Resolved Date Cellulitis of left lower extremity 09/29/2020 10/06/2021 [place] (acute kidney injury) 09/29/20202021 Functional dyspepsia 02/11/2018 03/25/2018 Overview: Added automatically from request for surgery [id number] History of pulmonary embolism 10/30/2016 History of DVT (deep vein thrombosis) 10/30/2016 03/25/2018 Vertigo 05/04/2014 03/25/2018 Dizziness 03/13/2014 03/25/2018 Overview: History: - discharged from the hospital in February after a surgical EEG electrode placement, normal mentation - went to rehab and siccessfully completed rehab for 4 weeks - reached home appx 1 week back - per patient, there was some confusion regarding which anti epileptic medications he was supposed to be on. Noticed increased diziness since about 3 days back.Did not miss any of his medication doses/ no aura/ no tonic clonic movements/ no falls/ no focal weakness. Called up Dr Xie (his neurologist) and was asked to go to the ED. 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 and transferred to the [facility] for further evaluation - no complains today other than nausea - Tried calling his pharmacy in the evening to reach them, unable to get a response Assessment: - light headedness secondary to polypharmacy and inadvertent overdose vs subclinical seizures Plan: - symptoms already improved after adjusting medications - Epilepsy/ neurology Follow up after discharge DVT of proximal leg (deep vein thrombosis) 01/2703/25/2018 Calf DVT (deep venous thrombosis) 01/27/2014 03/25/2018 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 pylori infection 11/04/2013 03/25/2018 Decreased libido 07/22/2013 03/25/2018 History of DVT/PE 01/12/2013 03/25/2018 Overview: - history of saddle PE in 2010 - IVC filter placed in 2011 possible in the setting of increased risk of falls while on coumadin - coumadin use complaicated by GI bleeding in the setting of supratherapeutic INR, warfarin stopped in 11/2012 - Repeat DVT involving common iliac/femoral and IVD distal to the filter in 01/2013 while off coumadin, restarted on coumadin - Currently sub therapeutic on coumadin PLAN: -Increase coumadin to 7.5 mg daily - continue coumadin for life in the setting of PE Continue to bridge with lovenox as INR subtherapeutic. 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 s/p clinical remission and now on Rituximab every 2 months , O/P oncologist Dr Ruiz - Epilepsy since , grand mal seizures s/p SEEG placement on 01/23 - 01/27 with localzation of seizure focus to the left temporal lobe, no grand mal seizures this year, follows up with Dr Xie for epilepsy, on Lacosamide, lamotrigine, keppra and clonazepam with confusion regarding his current medications - History of DVT PE, saddle PE 2010 started on coumadin c/b GI bleed in the setting of supratherapeutic INR, IVC filter placement 04/2012 in the setting of GI bleed and fall risk but continued on coumadin till 11/2012 . Recent DVT in the common iliac, femoral and IVC distal to the IVD filter in 01/2013 while off coumadin. Currently on coumadin and no bleeding episodes/ falls Who is transferred from [facility] for the further evaluation of his dizziness which started about 3 -4 days ago and is now resolved Thrombocytopenia 01/12/2013 12/28/2013 Overview: - Not acute - platelet in previous admission 141, todays labs pending - PREVIOUS ANTI PF4 negative - 4 T test score 4- intermediate probability, antiPF4 neg - could be 2/2 lamotrigine vs rituximab (althoug incidence more in RA patients) - no symptoms currently PLAN: - monitor blood counts Urgency of urination 09/10/2012 03/25/2018 Frequency of urination 09/10/2012 8 Duodenitis without mention of hemorrhage 012 03/25/2018 Drug induced neutropenia(288.03) 05/14/2012 03/25/2018 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 Breslow 5.3 mm, Yfn IV, Mitotic rate 5/ sq mm. documented as of this encounter (statuses as of 12/06/2022) [facility] History of Past illness Narrative* Problem Noted Date Resolved Date Cellulitis of left lower extremity 09/29/2020 10/06/2021 [place] (acute kidney injury) 09/29/20202021 Functional dyspepsia 02/11/2018 03/25/2018 Overview: Added automatically from request for surgery [id number] History of pulmonary embolism 10/30/2016 History of DVT (deep vein thrombosis) 10/30/2016 03/25/2018 Vertigo 05/04/2014 03/25/2018 Dizziness 03/13/2014 03/25/2018 Overview: History: - discharged from the hospital in February after a surgical EEG electrode placement, normal mentation - went to rehab and siccessfully completed rehab for 4 weeks - reached home appx 1 week back - per patient, there was some confusion regarding which anti epileptic medications he was supposed to be on. Noticed increased diziness since about 3 days back.Did not miss any of his medication doses/ no aura/ no tonic clonic movements/ no falls/ no focal weakness. Called up Dr Xie (his neurologist) and was asked to go to the ED. 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 and transferred [facility] evaluation - no complains today other than nausea - Tried calling his pharmacy in the evening to reach them, unable to get a response Assessment: - light headedness secondary to polypharmacy and inadvertent overdose vs subclinical seizures Plan: - symptoms already improved after adjusting medications - Epilepsy/ neurology Follow up after discharge DVT of proximal leg (deep vein thrombosis) 01/2703/25/2018 Calf DVT (deep venous thrombosis) 01/27/2014 03/25/2018 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 pylori infection 11/04/2013 03/25/2018 Decreased libido 07/22/2013 03/25/2018 History of DVT/PE 01/12/2013 03/25/2018 Overview: - history of saddle PE in 2010 - IVC filter placed in 2011 possible in the setting of increased risk of falls while on coumadin - coumadin use complaicated by GI bleeding in the setting of supratherapeutic INR, warfarin stopped in 11/2012 - Repeat DVT involving common iliac/femoral and IVD distal to the filter in 01/2013 while off coumadin, restarted on coumadin - Currently sub therapeutic on coumadin PLAN: -Increase coumadin to 7.5 mg daily - continue coumadin for life in the setting of PE Continue to bridge with lovenox as INR subtherapeutic. 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 s/p clinical remission and now on Rituximab every 2 months , O/P oncologist Dr Ruiz - Epilepsy since , grand mal seizures s/p SEEG placement on 01/23 - 01/27 with localzation of seizure focus to the left temporal lobe, no grand mal seizures this year, follows up with Dr Xie for epilepsy, on Lacosamide, lamotrigine, keppra and clonazepam with confusion regarding his current medications - History of DVT PE, saddle PE 2010 started on coumadin c/b GI bleed in the setting of supratherapeutic INR, IVC filter placement 04/2012 in the setting of GI bleed and fall risk but continued on coumadin till 11/2012 . Recent DVT in the common iliac, femoral and IVC distal to the IVD filter in 01/2013 while off coumadin. Currently on coumadin and no bleeding episodes/ falls Who is transferred from [facility] for the further evaluation of his dizziness which started about 3 -4 days ago and is now resolved Thrombocytopenia 01/12/2013 12/28/2013 Overview: - Not acute - platelet in previous admission 141, todays labs pending - PREVIOUS ANTI PF4 negative - 4 T test score 4- intermediate probability, antiPF4 neg - could be 2/2 lamotrigine vs rituximab (althoug incidence more in RA patients) - no symptoms currently PLAN: - monitor blood counts Urgency of urination 09/10/2012 03/25/2018 Frequency of urination 09/10/2012 8 Duodenitis without mention of hemorrhage 012 03/25/2018 Drug induced neutropenia(288.03) 05/14/2012 03/25/2018 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 Breslow 5.3 mm, Yfn IV, Mitotic rate 5/ sq mm. documented as of this encounter (statuses as of 12/08/2022) [facility]02-24-[facility]21 History of Past illness Narrative* Problem Noted Date Resolved Date Cellulitis of left lower extremity 09/29/2020 10/06/2021 [place] (acute kidney injury) 09/29/20202021 Functional dyspepsia 02/11/2018 03/25/2018 Overview: Added automatically from request for surgery [id number] History of pulmonary embolism 10/30/2016 History of DVT (deep vein thrombosis) 10/30/2016 03/25/2018 Vertigo 05/04/2014 03/25/2018 Dizziness 03/13/2014 03/25/2018 Overview: History: - discharged from the hospital in February after a surgical EEG electrode placement, normal mentation - went to rehab and siccessfully completed rehab for 4 weeks - reached home appx 1 week back - per patient, there was some confusion regarding which anti epileptic medications he was supposed to be on. Noticed increased diziness since about 3 days back.Did not miss any of his medication doses/ no aura/ no tonic clonic movements/ no falls/ no focal weakness. Called up Dr Xie (his neurologist) and was asked to go to the ED. 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 and transferred to the [facility] for further evaluation - no complains today other than nausea - Tried calling his pharmacy in the evening to reach them, unable to get a response Assessment: - light headedness secondary to polypharmacy and inadvertent overdose vs subclinical seizures Plan: - symptoms already improved after adjusting medications - Epilepsy/ neurology Follow up after discharge DVT of proximal leg (deep vein thrombosis) 01/2703/25/2018 Calf DVT (deep venous thrombosis) 01/27/2014 03/25/2018 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 pylori infection 11/04/2013 03/25/2018 Decreased libido 07/22/2013 03/25/2018 History of DVT/PE 01/12/2013 03/25/2018 Overview: - history of saddle PE in 2010 - IVC filter placed in 2011 possible in the setting of increased risk of falls while on coumadin - coumadin use complaicated by GI bleeding in the setting of supratherapeutic INR, warfarin stopped in 11/2012 - Repeat DVT involving common iliac/femoral and IVD distal to the filter in 01/2013 while off coumadin, restarted on coumadin - Currently sub therapeutic on coumadin PLAN: -Increase coumadin to 7.5 mg daily - continue coumadin for life in the setting of PE Continue to bridge with lovenox as INR subtherapeutic. 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 s/p clinical remission and now on Rituximab every 2 months , O/P oncologist Dr Ruiz - Epilepsy since , grand mal seizures s/p SEEG placement on 01/23 - 01/27 with localzation of seizure focus to the left temporal lobe, no grand mal seizures this year, follows up with Dr Xie for epilepsy, on Lacosamide, lamotrigine, keppra and clonazepam with confusion regarding his current medications - History of DVT PE, saddle PE 2010 started on coumadin c/b GI bleed in the setting of supratherapeutic INR, IVC filter placement 04/2012 in the setting of GI bleed and fall risk but continued on coumadin till 11/2012 . Recent DVT in the common iliac, femoral and IVC distal to the IVD filter in 01/2013 while off coumadin. Currently on coumadin and no bleeding episodes/ falls Who is transferred from [facility] for the further evaluation of his dizziness which started about 3 -4 days ago and is now resolved Thrombocytopenia 01/12/2013 12/28/2013 Overview: - Not acute - platelet in previous admission 141, todays labs pending - PREVIOUS ANTI PF4 negative - 4 T test score 4- intermediate probability, antiPF4 neg - could be 2/2 lamotrigine vs rituximab (althoug incidence more in RA patients) - no symptoms currently PLAN: - monitor blood counts Urgency of urination 09/10/2012 03/25/2018 Frequency of urination 09/10/2012 8 Duodenitis without mention of hemorrhage 012 03/25/2018 Drug induced neutropenia(288.03) 05/14/2012 03/25/2018 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 Breslow 5.3 mm, Yfn IV, Mitotic rate 5/ sq mm. documented as of this encounter (statuses as of 12/12/2022) [facility]02-[facility]21 History of Past illness Narrative* Problem Noted Date Resolved Date Cellulitis of left lower extremity 09/29/2020 10/06/2021 [place] (acute kidney injury) 09/29/20202021 Functional dyspepsia 02/11/2018 03/25/2018 Overview: Added automatically from request for surgery [id number] History of pulmonary embolism 10/30/2016 History of DVT (deep vein thrombosis) 10/30/2016 03/25/2018 Vertigo 05/04/2014 03/25/2018 Dizziness 03/13/2014 03/25/2018 Overview: History: - discharged from the hospital in February after a surgical EEG electrode placement, normal mentation - went to rehab and siccessfully completed rehab for 4 weeks - reached home appx 1 week back - per patient, there was some confusion regarding which anti epileptic medications he was supposed to be on. Noticed increased diziness since about 3 days back.Did not miss any of his medication doses/ no aura/ no tonic clonic movements/ no falls/ no focal weakness. Called up Dr Xie (his neurologist) and was asked to go to the ED. 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 and transferred to the [facility] for further evaluation - no complains today other than nausea - Tried calling his pharmacy in the evening to reach them, unable to get a response Assessment: - light headedness secondary to polypharmacy and inadvertent overdose vs subclinical seizures Plan: - symptoms already improved after adjusting medications - Epilepsy/ neurology Follow up after discharge DVT of proximal leg (deep vein thrombosis) 01/2703/25/2018 Calf DVT (deep venous thrombosis) 01/27/2014 03/25/2018 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 pylori infection 11/04/2013 03/25/2018 Decreased libido 07/22/2013 03/25/2018 History of DVT/PE 01/12/2013 03/25/2018 Overview: - history of saddle PE in 2010 - IVC filter placed in 2011 possible in the setting of increased risk of falls while on coumadin - coumadin use complaicated by GI bleeding in the setting of supratherapeutic INR, warfarin stopped in 11/2012 - Repeat DVT involving common iliac/femoral and IVD distal to the filter in 01/2013 while off coumadin, restarted on coumadin - Currently sub therapeutic on coumadin PLAN: -Increase coumadin to 7.5 mg daily - continue coumadin for life in the setting of PE Continue to bridge with lovenox as INR subtherapeutic. 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 s/p clinical remission and now on Rituximab every 2 months , O/P oncologist Dr Ruiz - Epilepsy since , grand mal seizures s/p SEEG placement on 01/23 - 01/27 with localzation of seizure focus to the left temporal lobe, no grand mal seizures this year, follows up with Dr Xie for epilepsy, on Lacosamide, lamotrigine, keppra and clonazepam with confusion regarding his current medications - History of DVT PE, saddle PE 2010 started on coumadin c/b GI bleed in the setting of supratherapeutic INR, IVC filter placement 04/2012 in the setting of GI bleed and fall risk but continued on coumadin till 11/2012 . Recent DVT in the common iliac, femoral and IVC distal to the IVD filter in 01/2013 while off coumadin. Currently on coumadin and no bleeding episodes/ falls Who is transferred from [facility] for the further evaluation of his dizziness which started about 3 -4 days ago and is now resolved Thrombocytopenia 01/12/2013 12/28/2013 Overview: - Not acute - platelet in previous admission 141, todays labs pending - PREVIOUS ANTI PF4 negative - 4 T test score 4- intermediate probability, antiPF4 neg - could be 2/2 lamotrigine vs rituximab (althoug incidence more in RA patients) - no symptoms currently PLAN: - monitor blood counts Urgency of urination 09/10/2012 03/25/2018 Frequency of urination 09/10/2012 8 Duodenitis without mention of hemorrhage 012 03/25/2018 Drug induced neutropenia(288.03) 05/14/2012 03/25/2018 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 Breslow 5.3 mm, Yfn IV, Mitotic rate 5/ sq mm. documented as of this encounter (statuses as of 12/13/2022) [facility]02[facility] History of Past illness Narrative* Problem Noted Date Resolved Date Cellulitis of left lower extremity 09/29/2020 10/06/2021 [place] (acute kidney injury) 09/29/20202021 Functional dyspepsia 02/11/2018 03/25/2018 Overview: Added automatically from request for surgery [id number] History of pulmonary embolism 10/30/2016 History of DVT (deep vein thrombosis) 10/30/2016 03/25/2018 Vertigo 05/04/2014 03/25/2018 Dizziness 03/13/2014 03/25/2018 Overview: History: - discharged from the hospital in February after a surgical EEG electrode placement, normal mentation - went to rehab and siccessfully completed rehab for 4 weeks - reached home appx 1 week back - per patient, there was some confusion regarding which anti epileptic medications he was supposed to be on. Noticed increased diziness since about 3 days back.Did not miss any of his medication doses/ no aura/ no tonic clonic movements/ no falls/ no focal weakness. Called up Dr Xie (his neurologist) and was asked to go to the ED. 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 and transferred to the [facility] for further evaluation - no complains today other than nausea - Tried calling his pharmacy in the evening to reach them, unable to get a response Assessment: - light headedness secondary to polypharmacy and inadvertent overdose vs subclinical seizures Plan: - symptoms already improved after adjusting medications - Epilepsy/ neurology Follow up after discharge DVT of proximal leg (deep vein thrombosis) 01/2703/25/2018 Calf DVT (deep venous thrombosis) 01/27/2014 03/25/2018 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 pylori infection 11/04/2013 03/25/2018 Decreased libido 07/22/2013 03/25/2018 History of DVT/PE 01/12/2013 03/25/2018 Overview: - history of saddle PE in 2010 - IVC filter placed in 2011 possible in the setting of increased risk of falls while on coumadin - coumadin use complaicated by GI bleeding in the setting of supratherapeutic INR, warfarin stopped in 11/2012 - Repeat DVT involving common iliac/femoral and IVD distal to the filter in 01/2013 while off coumadin, restarted on coumadin - Currently sub therapeutic on coumadin PLAN: -Increase coumadin to 7.5 mg daily - continue coumadin for life in the setting of PE Continue to bridge with lovenox as INR subtherapeutic. 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 s/p clinical remission and now on Rituximab every 2 months , O/P oncologist Dr Ruiz - Epilepsy since , grand mal seizures s/p SEEG placement on 01/23 - 01/27 with localzation of seizure focus to the left temporal lobe, no grand mal seizures this year, follows up with Dr Xie for epilepsy, on Lacosamide, lamotrigine, keppra and clonazepam with confusion regarding his current medications - History of DVT PE, saddle PE 2010 started on coumadin c/b GI bleed in the setting of supratherapeutic INR, IVC filter placement 04/2012 in the setting of GI bleed and fall risk but continued on coumadin till 11/2012 . Recent DVT in the common iliac, femoral and IVC distal to the IVD filter in 01/2013 while off coumadin. Currently on coumadin and no bleeding episodes/ falls Who is transferred from [facility] for the further evaluation of his dizziness which started about 3 -4 days ago and is now resolved Thrombocytopenia 01/12/2013 12/28/2013 Overview: - Not acute - platelet in previous admission 141, todays labs pending - PREVIOUS ANTI PF4 negative - 4 T test score 4- intermediate probability, antiPF4 neg - could be 2/2 lamotrigine vs rituximab (althoug incidence more in RA patients) - no symptoms currently PLAN: - monitor blood counts Urgency of urination 09/10/2012 03/25/2018 Frequency of urination 09/10/2012 8 Duodenitis without mention of hemorrhage 012 03/25/2018 Drug induced neutropenia(288.03) 05/14/2012 03/25/2018 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 Breslow 5.3 mm, Yfn IV, Mitotic rate 5/ sq mm. documented as of this encounter (statuses as of 12/15/2022) [facility] History of Past illness Narrative* Problem Noted Date Resolved Date Cellulitis of left lower extremity 09/29/2020 10/06/2021 [place] (acute kidney injury) 09/29/20202021 Functional dyspepsia 02/11/2018 03/25/2018 Overview: Added automatically from request for surgery [id number] History of pulmonary embolism 10/30/2016 History of DVT (deep vein thrombosis) 10/30/2016 03/25/2018 Vertigo 05/04/2014 03/25/2018 Dizziness 03/13/2014 03/25/2018 Overview: History: - discharged from the hospital in February after a surgical EEG electrode placement, normal mentation - went to rehab and siccessfully completed rehab for 4 weeks - reached home appx 1 week back - per patient, there was some confusion regarding which anti epileptic medications he was supposed to be on. Noticed increased diziness since about 3 days back.Did not miss any of his medication doses/ no aura/ no tonic clonic movements/ no falls/ no focal weakness. Called up Dr Xie (his neurologist) and was asked to go to the ED. 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 and transferred to the [facility] for further evaluation - no complains today other than nausea - Tried calling his pharmacy in the evening to reach them, unable to get a response Assessment: - light headedness secondary to polypharmacy and inadvertent overdose vs subclinical seizures Plan: - symptoms already improved after adjusting medications - Epilepsy/ neurology Follow up after discharge DVT of proximal leg (deep vein thrombosis) 01/2703/25/2018 Calf DVT (deep venous thrombosis) 01/27/2014 03/25/2018 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 pylori infection 11/04/2013 03/25/2018 Decreased libido 07/22/2013 03/25/2018 History of DVT/PE 01/12/2013 03/25/2018 Overview: - history of saddle PE in 2010 - IVC filter placed in 2011 possible in the setting of increased risk of falls while on coumadin - coumadin use complaicated by GI bleeding in the setting of supratherapeutic INR, warfarin stopped in 11/2012 - Repeat DVT involving common iliac/femoral and IVD distal to the filter in 01/2013 while off coumadin, restarted on coumadin - Currently sub therapeutic on coumadin PLAN: -Increase coumadin to 7.5 mg daily - continue coumadin for life in the setting of PE Continue to bridge with lovenox as INR subtherapeutic. 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 s/p clinical remission and now on Rituximab every 2 months , O/P oncologist Dr Ruiz - Epilepsy since , grand mal seizures s/p SEEG placement on 01/23 - 01/27 with localzation of seizure focus to the left temporal lobe, no grand mal seizures this year, follows up with Dr Xie for epilepsy, on Lacosamide, lamotrigine, keppra and clonazepam with confusion regarding his current medications - History of DVT PE, saddle PE 2010 started on coumadin c/b GI bleed in the setting of supratherapeutic INR, IVC filter placement 04/2012 in the setting of GI bleed and fall risk but continued on coumadin till 11/2012 . Recent DVT in the common iliac, femoral and IVC distal to the IVD filter in 01/2013 while off coumadin. Currently on coumadin and no bleeding episodes/ falls Who is transferred from [facility] for the further evaluation of his dizziness which started about 3 -4 days ago and is now resolved Thrombocytopenia 01/12/2013 12/28/2013 Overview: - Not acute - platelet in previous admission 141, todays labs pending - PREVIOUS ANTI PF4 negative - 4 T test score 4- intermediate probability, antiPF4 neg - could be 2/2 lamotrigine vs rituximab (althoug incidence more in RA patients) - no symptoms currently PLAN: - monitor blood counts Urgency of urination 09/10/2012 03/25/2018 Frequency of urination 09/10/2012 8 Duodenitis without mention of hemorrhage 012 03/25/2018 Drug induced neutropenia(288.03) 05/14/2012 03/25/2018 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 Breslow 5.3 mm, Yfn IV, Mitotic rate 5/ sq mm. documented as of this encounter (statuses as of 01/08/2023) [facility] History of Past illness Narrative* Problem Noted Date Resolved Date Cellulitis of left lower extremity 09/29/2020 10/06/2021 [place] (acute kidney injury) 09/29/20202021 Functional dyspepsia 02/11/2018 03/25/2018 Overview: Added automatically from request for surgery [id number] History of pulmonary embolism 10/30/2016 History of DVT (deep vein thrombosis) 10/30/2016 03/25/2018 Vertigo 05/04/2014 03/25/2018 Dizziness 03/13/2014 03/25/2018 Overview: History: - discharged from the hospital in February after a surgical EEG electrode placement, normal mentation - went to rehab and siccessfully completed rehab for 4 weeks - reached home appx 1 week back - per patient, there was some confusion regarding which anti epileptic medications he was supposed to be on. Noticed increased diziness since about 3 days back.Did not miss any of his medication doses/ no aura/ no tonic clonic movements/ no falls/ no focal weakness. Called up Dr Xie (his neurologist) and was asked to go to the ED. 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 and transferred to the [facility] for further evaluation - no complains today other than nausea - Tried calling his pharmacy in the evening to reach them, unable to get a response Assessment: - light headedness secondary to polypharmacy and inadvertent overdose vs subclinical seizures Plan: - symptoms already improved after adjusting medications - Epilepsy/ neurology Follow up after discharge DVT of proximal leg (deep vein thrombosis) 01/2703/25/2018 Calf DVT (deep venous thrombosis) 01/27/2014 03/25/2018 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 pylori infection 11/04/2013 03/25/2018 Decreased libido 07/22/2013 03/25/2018 History of DVT/PE 01/12/2013 03/25/2018 Overview: - history of saddle PE in 2010 - IVC filter placed in 2011 possible in the setting of increased risk of falls while on coumadin - coumadin use complaicated by GI bleeding in the setting of supratherapeutic INR, warfarin stopped in 11/2012 - Repeat DVT involving common iliac/femoral and IVD distal to the filter in 01/2013 while off coumadin, restarted on coumadin - Currently sub therapeutic on coumadin PLAN: -Increase coumadin to 7.5 mg daily - continue coumadin for life in the setting of PE Continue to bridge with lovenox as INR subtherapeutic. 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 s/p clinical remission and now on Rituximab every 2 months , O/P oncologist Dr Ruiz - Epilepsy since , grand mal seizures s/p SEEG placement on 01/23 - 01/27 with localzation of seizure focus to the left temporal lobe, no grand mal seizures this year, follows up with Dr Xie for epilepsy, on Lacosamide, lamotrigine, keppra and clonazepam with confusion regarding his current medications - History of DVT PE, saddle PE 2010 started on coumadin c/b GI bleed in the setting of supratherapeutic INR, IVC filter placement 04/2012 in the setting of GI bleed and fall risk but continued on coumadin till 11/2012 . Recent DVT in the common iliac, femoral and IVC distal to the IVD filter in 01/2013 while off coumadin. Currently on coumadin and no bleeding episodes/ falls Who is transferred from [facility] for the further evaluation of his dizziness which started about 3 -4 days ago and is now resolved Thrombocytopenia 01/12/2013 12/28/2013 Overview: - Not acute - platelet in previous admission 141, todays labs pending - PREVIOUS ANTI PF4 negative - 4 T test score 4- intermediate probability, antiPF4 neg - could be 2/2 lamotrigine vs rituximab (althoug incidence more in RA patients) - no symptoms currently PLAN: - monitor blood counts Urgency of urination 09/10/2012 03/25/2018 Frequency of urination 09/10/2012 8 Duodenitis without mention of hemorrhage 012 03/25/2018 Drug induced neutropenia(288.03) 05/14/2012 03/25/2018 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 Breslow 5.3 mm, Yfn IV, Mitotic rate 5/ sq mm. documented as of this encounter (statuses as of 01/10/2023) [facility]02-24-2021 History of Past illness Narrative* Problem Noted Date Resolved Date Cellulitis of left lower extremity 09/29/2020 10/06/2021 [place] (acute kidney injury) 09/29/20202021 Functional dyspepsia 02/11/2018 03/25/2018 Overview: Added automatically from request for surgery [id number] History of pulmonary embolism 10/30/2016 History of DVT (deep vein thrombosis) 10/30/2016 03/25/2018 Vertigo 05/04/2014 03/25/2018 Dizziness 03/13/2014 03/25/2018 Overview: History: - discharged from the hospital in February after a surgical EEG electrode placement, normal mentation - went to rehab and siccessfully completed rehab for 4 weeks - reached home appx 1 week back - per patient, there was some confusion regarding which anti epileptic medications he was supposed to be on. Noticed increased diziness since about 3 days back.Did not miss any of his medication doses/ no aura/ no tonic clonic movements/ no falls/ no focal weakness. Called up Dr Xie (his neurologist) and was asked to go to the ED. 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 and transferred to the [facility] for further evaluation - no complains today other than nausea - Tried calling his pharmacy in the evening to reach them, unable to get a response Assessment: - light headedness secondary to polypharmacy and inadvertent overdose vs subclinical seizures Plan: - symptoms already improved after adjusting medications - Epilepsy/ neurology Follow up after discharge DVT of proximal leg (deep vein thrombosis) 01/2703/25/2018 Calf DVT (deep venous thrombosis) 01/27/2014 03/25/2018 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 pylori infection 11/04/2013 03/25/2018 Decreased libido 07/22/2013 03/25/2018 History of DVT/PE 01/12/2013 03/25/2018 Overview: - history of saddle PE in 2010 - IVC filter placed in 2011 possible in the setting of increased risk of falls while on coumadin - coumadin use complaicated by GI bleeding in the setting of supratherapeutic INR, warfarin stopped in 11/2012 - Repeat DVT involving common iliac/femoral and IVD distal to the filter in 01/2013 while off coumadin, restarted on coumadin - Currently sub therapeutic on coumadin PLAN: -Increase coumadin to 7.5 mg daily - continue coumadin for life in the setting of PE Continue to bridge with lovenox as INR subtherapeutic. 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 s/p clinical remission and now on Rituximab every 2 months , O/P oncologist Dr Ruiz - Epilepsy since , grand mal seizures s/p SEEG placement on 01/23 - 01/27 with localzation of seizure focus to the left temporal lobe, no grand mal seizures this year, follows up with Dr Xie for epilepsy, on Lacosamide, lamotrigine, keppra and clonazepam with confusion regarding his current medications - History of DVT PE, saddle PE 2010 started on coumadin c/b GI bleed in the setting of supratherapeutic INR, IVC filter placement 04/2012 in the setting of GI bleed and fall risk but continued on coumadin till 11/2012 . Recent DVT in the common iliac, femoral and IVC distal to the IVD filter in 01/2013 while off coumadin. Currently on coumadin and no bleeding episodes/ falls Who is transferred from [facility] for the further evaluation of his dizziness which started about 3 -4 days ago and is now resolved Thrombocytopenia 01/12/2013 12/28/2013 Overview: - Not acute - platelet in previous admission 141, todays labs pending - PREVIOUS ANTI PF4 negative - 4 T test score 4- intermediate probability, antiPF4 neg - could be 2/2 lamotrigine vs rituximab (althoug incidence more in RA patients) - no symptoms currently PLAN: - monitor blood counts Urgency of urination 09/10/2012 03/25/2018 Frequency of urination 09/10/2012 8 Duodenitis without mention of hemorrhage 012 03/25/2018 Drug induced neutropenia(288.03) 05/14/2012 03/25/2018 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 Breslow 5.3 mm, Yfn IV, Mitotic rate 5/ sq mm. documented as of this encounter (statuses as of 02/01/2023) [facility] History of Past illness Narrative* Problem Noted Date Diagnosed Date Resolved Date Cellulitis of left lower extremity 09/29/2020 10/06/2021 [place] (acute kidney injury) 09/29/2020 Functional dyspepsia 02/11/2018 018 Overview: Added automatically from request for surgery [id number] History of pulmonary embolism 10/30/2016 03/25/2018 History of DVT (deep vein thrombosis) 10/30/2016 03/25/2018 Vertigo 05/04/2014 03/25/2018 Dizziness 03/13/2014 03/25/2018 Overview: History: - discharged from the hospital in February after a surgical EEG electrode placement, normal mentation - went to rehab and siccessfully completed rehab for 4 weeks - reached home appx 1 week back - per patient, there was some confusion regarding which anti epileptic medications he was supposed to be on. Noticed increased diziness since about 3 days back.Did not miss any of his medication doses/ no aura/ no tonic clonic movements/ no falls/ no focal weakness. Called up Dr Xie (his neurologist) and was asked to go to the ED. 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 and transferred to the [facility] for further evaluation - no complains today other than nausea - Tried calling his pharmacy in the evening to reach them, unable to get a response Assessment: - light headedness secondary to polypharmacy and inadvertent overdose vs subclinical seizures Plan: - symptoms already improved after adjusting medications - Epilepsy/ neurology Follow up after discharge DVT of proximal leg (deep vein thrombosis) 01/27/2014 03/25/2018 Calf DVT (deep venous thrombosis) 01/27/2014 03/25/2018 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 pylori infection 11/04/2013 03/25/20 18 Decreased libido 07/22/2013 03/25/2018 History of DVT/PE 01/12/2013 03/25/2018 Overview: - history of saddle PE in 2010 - IVC filter placed in 2011 possible in the setting of increased risk of falls while on coumadin - coumadin use complaicated by GI bleeding in the setting of supratherapeutic INR, warfarin stopped in 11/2012 - Repeat DVT involving common iliac/femoral and IVD distal to the filter in 01/2013 while off coumadin, restarted on coumadin - Currently sub therapeutic on coumadin PLAN: -Increase coumadin to 7.5 mg daily - continue coumadin for life in the setting of PE Continue to bridge with lovenox as INR subtherapeutic. 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 s/p clinical remission and now on Rituximab every 2 months , O/P oncologist Dr Ruiz - Epilepsy since , grand mal seizures s/p SEEG placement on 01/23 - 01/27 with localzation of seizure focus to the left temporal lobe, no grand mal seizures this year, follows up with Dr Xie for epilepsy, on Lacosamide, lamotrigine, keppra and clonazepam with confusion regarding his current medications - History of DVT PE, saddle PE 2010 started on coumadin c/b GI bleed in the setting of supratherapeutic INR, IVC filter placement 04/2012 in the setting of GI bleed and fall risk but continued on coumadin till 11/2012 . Recent DVT in the common iliac, femoral and IVC distal to the IVD filter in 01/2013 while off coumadin. Currently on coumadin and no bleeding episodes/ falls Who is transferred from [facility] for the further evaluation of his dizziness which started about 3 -4 days ago and is now resolved Thrombocytopenia 01/12/2013 12/28/2013 Overview: - Not acute - platelet in previous admission 141, todays labs pending - PREVIOUS ANTI PF4 negative - 4 T test score 4- intermediate probability, antiPF4 neg - could be 2/2 lamotrigine vs rituximab (althoug incidence more in RA patients) - no symptoms currently PLAN: - monitor blood counts Urgency of urination 09/10/2012 018 Frequency of urination 09/10/201203/25 Duodenitis without mention of hemorrhage 06/04/2012 03/25/2018 Drug induced neutropenia(288.03) 05/14/2012 03/25/2018 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 Breslow 5.3 mm, Yfn IV, Mitotic rate 5/ sq mm. documented as of this encounter (statuses as of 02/14/2023) [facility] History of Past illness Narrative* Problem Noted Date Diagnosed Date Resolved Date Cellulitis of left lower extremity 09/29/2020 10/06/2021 [place] (acute kidney injury) 09/29/2020 Functional dyspepsia 02/11/2018 018 Overview: Added automatically from request for surgery [id number] History of pulmonary embolism 10/30/2016 03/25/2018 History of DVT (deep vein thrombosis) 10/30/2016 03/25/2018 Vertigo 05/04/2014 03/25/2018 Dizziness 03/13/2014 03/25/2018 Overview: History: - discharged from the hospital in February after a surgical EEG electrode placement, normal mentation - went to rehab and siccessfully completed rehab for 4 weeks - reached home appx 1 week back - per patient, there was some confusion regarding which anti epileptic medications he was supposed to be on. Noticed increased diziness since about 3 days back.Did not miss any of his medication doses/ no aura/ no tonic clonic movements/ no falls/ no focal weakness. Called up Dr Xie (his neurologist) and was asked to go to the ED. 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 and transferred to the [facility] for further evaluation - no complains today other than nausea - Tried calling his pharmacy in the evening to reach them, unable to get a response Assessment: - light headedness secondary to polypharmacy and inadvertent overdose vs subclinical seizures Plan: - symptoms already improved after adjusting medications - Epilepsy/ neurology Follow up after discharge DVT of proximal leg (deep vein thrombosis) 01/27/2014 03/25/2018 Calf DVT (deep venous thrombosis) 01/27/2014 03/25/2018 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 pylori infection 11/04/2013 03/25/20 18 Decreased libido 07/22/2013 03/25/2018 History of DVT/PE 01/12/2013 03/25/2018 Overview: - history of saddle PE in 2010 - IVC filter placed in 2011 possible in the setting of increased risk of falls while on coumadin - coumadin use complaicated by GI bleeding in the setting of supratherapeutic INR, warfarin stopped in 11/2012 - Repeat DVT involving common iliac/femoral and IVD distal to the filter in 01/2013 while off coumadin, restarted on coumadin - Currently sub therapeutic on coumadin PLAN: -Increase coumadin to 7.5 mg daily - continue coumadin for life in the setting of PE Continue to bridge with lovenox as INR subtherapeutic. 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 s/p clinical remission and now on Rituximab every 2 months , O/P oncologist Dr Ruiz - Epilepsy since , grand mal seizures s/p SEEG placement on 01/23 - 01/27 with localzation of seizure focus to the left temporal lobe, no grand mal seizures this year, follows up with Dr Xie for epilepsy, on Lacosamide, lamotrigine, keppra and clonazepam with confusion regarding his current medications - History of DVT PE, saddle PE 2010 started on coumadin c/b GI bleed in the setting of supratherapeutic INR, IVC filter placement 04/2012 in the setting of GI bleed and fall risk but continued on coumadin till 11/2012 . Recent DVT in the common iliac, femoral and IVC distal to the IVD filter in 01/2013 while off coumadin. Currently on coumadin and no bleeding episodes/ falls Who is transferred from [facility] for the further evaluation of his dizziness which started about 3 -4 days ago and is now resolved Thrombocytopenia 01/12/2013 12/28/2013 Overview: - Not acute - platelet in previous admission 141, todays labs pending - PREVIOUS ANTI PF4 negative - 4 T test score 4- intermediate probability, antiPF4 neg - could be 2/2 lamotrigine vs rituximab (althoug incidence more in RA patients) - no symptoms currently PLAN: - monitor blood counts Urgency of urination 09/10/2012 018 Frequency of urination 09/10/201203/25 Duodenitis without mention of hemorrhage 06/04/2012 03/25/2018 Drug induced neutropenia(288.03) 05/14/2012 03/25/2018 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 Breslow 5.3 mm, Yfn IV, Mitotic rate 5/ sq mm. documented as of this encounter (statuses as of 02/15/2023) [facility] History of Past illness Narrative* Problem Noted Date Diagnosed Date Resolved Date Cellulitis of left lower extremity 09/29/2020 10/06/2021 [place] (acute kidney injury) 09/29/2020 Functional dyspepsia 02/11/2018 018 Overview: Added automatically from request for surgery [id number] History of pulmonary embolism 10/30/2016 03/25/2018 History of DVT (deep vein thrombosis) 10/30/2016 03/25/2018 Vertigo 05/04/2014 03/25/2018 Dizziness 03/13/2014 03/25/2018 Overview: History: - discharged from the hospital in February after a surgical EEG electrode placement, normal mentation - went to rehab and siccessfully completed rehab for 4 weeks - reached home appx 1 week back - per patient, there was some confusion regarding which anti epileptic medications he was supposed to be on. Noticed increased diziness since about 3 days back.Did not miss any of his medication doses/ no aura/ no tonic clonic movements/ no falls/ no focal weakness. Called up Dr Xie (his neurologist) and was asked to go to the ED. 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 and transferred to the [facility] for further evaluation - no complains today other than nausea - Tried calling his pharmacy in the evening to reach them, unable to get a response Assessment: - light headedness secondary to polypharmacy and inadvertent overdose vs subclinical seizures Plan: - symptoms already improved after adjusting medications - Epilepsy/ neurology Follow up after discharge DVT of proximal leg (deep vein thrombosis) 01/27/2014 03/25/2018 Calf DVT (deep venous thrombosis) 01/27/2014 03/25/2018 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 pylori infection 11/04/2013 03/25/20 18 Decreased libido 07/22/2013 03/25/2018 History of DVT/PE 01/12/2013 03/25/2018 Overview: - history of saddle PE in 2010 - IVC filter placed in 2011 possible in the setting of increased risk of falls while on coumadin - coumadin use complaicated by GI bleeding in the setting of supratherapeutic INR, warfarin stopped in 11/2012 - Repeat DVT involving common iliac/femoral and IVD distal to the filter in 01/2013 while off coumadin, restarted on coumadin - Currently sub therapeutic on coumadin PLAN: -Increase coumadin to 7.5 mg daily - continue coumadin for life in the setting of PE Continue to bridge with lovenox as INR subtherapeutic. 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 s/p clinical remission and now on Rituximab every 2 months , O/P oncologist Dr Ruiz - Epilepsy since , grand mal seizures s/p SEEG placement on 01/23 - 01/27 with localzation of seizure focus to the left temporal lobe, no grand mal seizures this year, follows up with Dr Xie for epilepsy, on Lacosamide, lamotrigine, keppra and clonazepam with confusion regarding his current medications - History of DVT PE, saddle PE 2010 started on coumadin c/b GI bleed in the setting of supratherapeutic INR, IVC filter placement 04/2012 in the setting of GI bleed and fall risk but continued on coumadin till 11/2012 . Recent DVT in the common iliac, femoral and IVC distal to the IVD filter in 01/2013 while off coumadin. Currently on coumadin and no bleeding episodes/ falls Who is transferred from [facility] for the further evaluation of his dizziness which started about 3 -4 days ago and is now resolved Thrombocytopenia 01/12/2013 12/28/2013 Overview: - Not acute - platelet in previous admission 141, todays labs pending - PREVIOUS ANTI PF4 negative - 4 T test score 4- intermediate probability, antiPF4 neg - could be 2/2 lamotrigine vs rituximab (althoug incidence more in RA patients) - no symptoms currently PLAN: - monitor blood counts Urgency of urination 09/10/2012 018 Frequency of urination 09/10/201203/25 Duodenitis without mention of hemorrhage 06/04/2012 03/25/2018 Drug induced neutropenia(288.03) 05/14/2012 03/25/2018 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 Breslow 5.3 mm, Yfn IV, Mitotic rate 5/ sq mm. documented as of this encounter (statuses as of 02/22/2023) [facility] History of Past illness Narrative* Problem Noted Date Diagnosed Date Resolved Date Cellulitis of left lower extremity 09/29/2020 10/06/2021 [place] (acute kidney injury) 09/29/2020 Functional dyspepsia 02/11/2018 018 Overview: Added automatically from request for surgery [id number] History of pulmonary embolism 10/30/2016 03/25/2018 History of DVT (deep vein thrombosis) 10/30/2016 03/25/2018 Vertigo 05/04/2014 03/25/2018 Dizziness 03/13/2014 03/25/2018 Overview: History: - discharged from the hospital in February after a surgical EEG electrode placement, normal mentation - went to rehab and siccessfully completed rehab for 4 weeks - reached home appx 1 week back - per patient, there was some confusion regarding which anti epileptic medications he was supposed to be on. Noticed increased diziness since about 3 days back.Did not miss any of his medication doses/ no aura/ no tonic clonic movements/ no falls/ no focal weakness. Called up Dr Xie (his neurologist) and was asked to go to the ED. 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 and transferred to the [facility] for further evaluation - no complains today other than nausea - Tried calling his pharmacy in the evening to reach them, unable to get a response Assessment: - light headedness secondary to polypharmacy and inadvertent overdose vs subclinical seizures Plan: - symptoms already improved after adjusting medications - Epilepsy/ neurology Follow up after discharge DVT of proximal leg (deep vein thrombosis) 01/27/2014 03/25/2018 Calf DVT (deep venous thrombosis) 01/27/2014 03/25/2018 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 pylori infection 11/04/2013 03/25/20 18 Decreased libido 07/22/2013 03/25/2018 History of DVT/PE 01/12/2013 03/25/2018 Overview: - history of saddle PE in 2010 - IVC filter placed in 2011 possible in the setting of increased risk of falls while on coumadin - coumadin use complaicated by GI bleeding in the setting of supratherapeutic INR, warfarin stopped in 11/2012 - Repeat DVT involving common iliac/femoral and IVD distal to the filter in 01/2013 while off coumadin, restarted on coumadin - Currently sub therapeutic on coumadin PLAN: -Increase coumadin to 7.5 mg daily - continue coumadin for life in the setting of PE Continue to bridge with lovenox as INR subtherapeutic. 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 s/p clinical remission and now on Rituximab every 2 months , O/P oncologist Dr Ruiz - Epilepsy since , grand mal seizures s/p SEEG placement on 01/23 - 01/27 with localzation of seizure focus to the left temporal lobe, no grand mal seizures this year, follows up with Dr Xie for epilepsy, on Lacosamide, lamotrigine, keppra and clonazepam with confusion regarding his current medications - History of DVT PE, saddle PE 2010 started on coumadin c/b GI bleed in the setting of supratherapeutic INR, IVC filter placement 04/2012 in the setting of GI bleed and fall risk but continued on coumadin till 11/2012 . Recent DVT in the common iliac, femoral and IVC distal to the IVD filter in 01/2013 while off coumadin. Currently on coumadin and no bleeding episodes/ falls Who is transferred from [facility] for the further evaluation of his dizziness which started about 3 -4 days ago and is now resolved Thrombocytopenia 01/12/2013 12/28/2013 Overview: - Not acute - platelet in previous admission 141, todays labs pending - PREVIOUS ANTI PF4 negative - 4 T test score 4- intermediate probability, antiPF4 neg - could be 2/2 lamotrigine vs rituximab (althoug incidence more in RA patients) - no symptoms currently PLAN: - monitor blood counts Urgency of urination 09/10/2012 018 Frequency of urination 09/10/201203/25 Duodenitis without mention of hemorrhage 06/04/2012 03/25/2018 Drug induced neutropenia(288.03) 05/14/2012 03/25/2018 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 Breslow 5.3 mm, Yfn IV, Mitotic rate 5/ sq mm. documented as of this encounter (statuses as of 03/15/2023) [facility]02-24-2021 History of Past illness Narrative* Problem Noted Date Diagnosed Date Resolved Date Cellulitis of left lower extremity 09/29/2020 10/06/2021 [place] (acute kidney injury) 09/29/2020 Functional dyspepsia 02/11/2018 018 Overview: Added automatically from request for surgery [id number] History of pulmonary embolism 10/30/2016 03/25/2018 History of DVT (deep vein thrombosis) 10/30/2016 03/25/2018 Vertigo 05/04/2014 03/25/2018 Dizziness 03/13/2014 03/25/2018 Overview: History: - discharged from the hospital in February after a surgical EEG electrode placement, normal mentation - went to rehab and siccessfully completed rehab for 4 weeks - reached home appx 1 week back - per patient, there was some confusion regarding which anti epileptic medications he was supposed to be on. Noticed increased diziness since about 3 days back.Did not miss any of his medication doses/ no aura/ no tonic clonic movements/ no falls/ no focal weakness. Called up Dr Xie (his neurologist) and was asked to go to the ED. 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 and transferred to the [facility] for further evaluation - no complains today other than nausea - Tried calling his pharmacy in the evening to reach them, unable to get a response Assessment: - light headedness secondary to polypharmacy and inadvertent overdose vs subclinical seizures Plan: - symptoms already improved after adjusting medications - Epilepsy/ neurology Follow up after discharge DVT of proximal leg (deep vein thrombosis) 01/27/2014 03/25/2018 Calf DVT (deep venous thrombosis) 01/27/2014 03/25/2018 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 pylori infection 11/04/2013 03/25/20 18 Decreased libido 07/22/2013 03/25/2018 History of DVT/PE 01/12/2013 03/25/2018 Overview: - history of saddle PE in 2010 - IVC filter placed in 2011 possible in the setting of increased risk of falls while on coumadin - coumadin use complaicated by GI bleeding in the setting of supratherapeutic INR, warfarin stopped in 11/2012 - Repeat DVT involving common iliac/femoral and IVD distal to the filter in 01/2013 while off coumadin, restarted on coumadin - Currently sub therapeutic on coumadin PLAN: -Increase coumadin to 7.5 mg daily - continue coumadin for life in the setting of PE Continue to bridge with lovenox as INR subtherapeutic. 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 s/p clinical remission and now on Rituximab every 2 months , O/P oncologist Dr Ruiz - Epilepsy since , grand mal seizures s/p SEEG placement on 01/23 - 01/27 with localzation of seizure focus to the left temporal lobe, no grand mal seizures this year, follows up with Dr Xie for epilepsy, on Lacosamide, lamotrigine, keppra and clonazepam with confusion regarding his current medications - History of DVT PE, saddle PE 2010 started on coumadin c/b GI bleed in the setting of supratherapeutic INR, IVC filter placement 04/2012 in the setting of GI bleed and fall risk but continued on coumadin till 11/2012 . Recent DVT in the common iliac, femoral and IVC distal to the IVD filter in 01/2013 while off coumadin. Currently on coumadin and no bleeding episodes/ falls Who is transferred from [facility] for the further evaluation of his dizziness which started about 3 -4 days ago and is now resolved Thrombocytopenia 01/12/2013 12/28/2013 Overview: - Not acute - platelet in previous admission 141, todays labs pending - PREVIOUS ANTI PF4 negative - 4 T test score 4- intermediate probability, antiPF4 neg - could be 2/2 lamotrigine vs rituximab (althoug incidence more in RA patients) - no symptoms currently PLAN: - monitor blood counts Urgency of urination 09/10/2012 018 Frequency of urination 09/10/201203/25 Duodenitis without mention of hemorrhage 06/04/2012 03/25/2018 Drug induced neutropenia(288.03) 05/14/2012 03/25/2018 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 Breslow 5.3 mm, Yfn IV, Mitotic rate 5/ sq mm. documented as of this encounter (statuses as of 04/04/2023) [facility]02-[facility]21 History of Past illness Narrative* Problem Noted Date Diagnosed Date Resolved Date Cellulitis of left lower extremity 09/29/2020 10/06/2021 [place] (acute kidney injury) 09/29/2020 Functional dyspepsia 02/11/2018 018 Overview: Added automatically from request for surgery [id number] History of pulmonary embolism 10/30/2016 03/25/2018 History of DVT (deep vein thrombosis) 10/30/2016 03/25/2018 Vertigo 05/04/2014 03/25/2018 Dizziness 03/13/2014 03/25/2018 Overview: History: - discharged from the hospital in February after a surgical EEG electrode placement, normal mentation - went to rehab and siccessfully completed rehab for 4 weeks - reached home appx 1 week back - per patient, there was some confusion regarding which anti epileptic medications he was supposed to be on. Noticed increased diziness since about 3 days back.Did not miss any of his medication doses/ no aura/ no tonic clonic movements/ no falls/ no focal weakness. Called up Dr Xie (his neurologist) and was asked to go to the ED. 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 and transferred to the [facility] for further evaluation - no complains today other than nausea - Tried calling his pharmacy in the evening to reach them, unable to get a response Assessment: - light headedness secondary to polypharmacy and inadvertent overdose vs subclinical seizures Plan: - symptoms already improved after adjusting medications - Epilepsy/ neurology Follow up after discharge DVT of proximal leg (deep vein thrombosis) 01/27/2014 03/25/2018 Calf DVT (deep venous thrombosis) 01/27/2014 03/25/2018 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 pylori infection 11/04/2013 03/25/20 18 Decreased libido 07/22/2013 03/25/2018 History of DVT/PE 01/12/2013 03/25/2018 Overview: - history of saddle PE in 2010 - IVC filter placed in 2011 possible in the setting of increased risk of falls while on coumadin - coumadin use complaicated by GI bleeding in the setting of supratherapeutic INR, warfarin stopped in 11/2012 - Repeat DVT involving common iliac/femoral and IVD distal to the filter in 01/2013 while off coumadin, restarted on coumadin - Currently sub therapeutic on coumadin PLAN: -Increase coumadin to 7.5 mg daily - continue coumadin for life in the setting of PE Continue to bridge with lovenox as INR subtherapeutic. 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 s/p clinical remission and now on Rituximab every 2 months , O/P oncologist Dr Ruiz - Epilepsy since , grand mal seizures s/p SEEG placement on 01/23 - 01/27 with localzation of seizure focus to the left temporal lobe, no grand mal seizures this year, follows up with Dr Xie for epilepsy, on Lacosamide, lamotrigine, keppra and clonazepam with confusion regarding his current medications - History of DVT PE, saddle PE 2010 started on coumadin c/b GI bleed in the setting of supratherapeutic INR, IVC filter placement 04/2012 in the setting of GI bleed and fall risk but continued on coumadin till 11/2012 . Recent DVT in the common iliac, femoral and IVC distal to the IVD filter in 01/2013 while off coumadin. Currently on coumadin and no bleeding episodes/ falls Who is transferred from [facility] for the further evaluation of his dizziness which started about 3 -4 days ago and is now resolved Thrombocytopenia 01/12/2013 12/28/2013 Overview: - Not acute - platelet in previous admission 141, todays labs pending - PREVIOUS ANTI PF4 negative - 4 T test score 4- intermediate probability, antiPF4 neg - could be 2/2 lamotrigine vs rituximab (althoug incidence more in RA patients) - no symptoms currently PLAN: - monitor blood counts Urgency of urination 09/10/2012 018 Frequency of urination 09/10/201203/25 Duodenitis without mention of hemorrhage 06/04/2012 03/25/2018 Drug induced neutropenia(288.03) 05/14/2012 03/25/2018 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 Breslow 5.3 mm, Yfn IV, Mitotic rate 5/ sq mm. documented as of this encounter (statuses as of 04/05/2023) [facility] History of Past illness Narrative* Problem Noted Date Diagnosed Date Resolved Date Cellulitis of left lower extremity 09/29/2020 10/06/2021 [place] (acute kidney injury) 09/29/2020 Functional dyspepsia 02/11/2018 018 Overview: Added automatically from request for surgery [id number] History of pulmonary embolism 10/30/2016 03/25/2018 History of DVT (deep vein thrombosis) 10/30/2016 03/25/2018 Vertigo 05/04/2014 03/25/2018 Dizziness 03/13/2014 03/25/2018 Overview: History: - discharged from the hospital in February after a surgical EEG electrode placement, normal mentation - went to rehab and siccessfully completed rehab for 4 weeks - reached home appx 1 week back - per patient, there was some confusion regarding which anti epileptic medications he was supposed to be on. Noticed increased diziness since about 3 days back.Did not miss any of his medication doses/ no aura/ no tonic clonic movements/ no falls/ no focal weakness. Called up Dr Xie (his neurologist) and was asked to go to the ED. 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 and transferred to the [facility] for further evaluation - no complains today other than nausea - Tried calling his pharmacy in the evening to reach them, unable to get a response Assessment: - light headedness secondary to polypharmacy and inadvertent overdose vs subclinical seizures Plan: - symptoms already improved after adjusting medications - Epilepsy/ neurology Follow up after discharge DVT of proximal leg (deep vein thrombosis) 01/27/2014 03/25/2018 Calf DVT (deep venous thrombosis) 01/27/2014 03/25/2018 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 pylori infection 11/04/2013 03/25/20 18 Decreased libido 07/22/2013 03/25/2018 History of DVT/PE 01/12/2013 03/25/2018 Overview: - history of saddle PE in 2010 - IVC filter placed in 2011 possible in the setting of increased risk of falls while on coumadin - coumadin use complaicated by GI bleeding in the setting of supratherapeutic INR, warfarin stopped in 11/2012 - Repeat DVT involving common iliac/femoral and IVD distal to the filter in 01/2013 while off coumadin, restarted on coumadin - Currently sub therapeutic on coumadin PLAN: -Increase coumadin to 7.5 mg daily - continue coumadin for life in the setting of PE Continue to bridge with lovenox as INR subtherapeutic. 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 s/p clinical remission and now on Rituximab every 2 months , O/P oncologist Dr Ruiz - Epilepsy since , grand mal seizures s/p SEEG placement on 01/23 - 01/27 with localzation of seizure focus to the left temporal lobe, no grand mal seizures this year, follows up with Dr Xie for epilepsy, on Lacosamide, lamotrigine, keppra and clonazepam with confusion regarding his current medications - History of DVT PE, saddle PE 2010 started on coumadin c/b GI bleed in the setting of supratherapeutic INR, IVC filter placement 04/2012 in the setting of GI bleed and fall risk but continued on coumadin till 11/2012 . Recent DVT in the common iliac, femoral and IVC distal to the IVD filter in 01/2013 while off coumadin. Currently on coumadin and no bleeding episodes/ falls Who is transferred from [facility] for the further evaluation of his dizziness which started about 3 -4 days ago and is now resolved Thrombocytopenia 01/12/2013 12/28/2013 Overview: - Not acute - platelet in previous admission 141, todays labs pending - PREVIOUS ANTI PF4 negative - 4 T test score 4- intermediate probability, antiPF4 neg - could be 2/2 lamotrigine vs rituximab (althoug incidence more in RA patients) - no symptoms currently PLAN: - monitor blood counts Urgency of urination 09/10/2012 018 Frequency of urination 09/10/201203/25 Duodenitis without mention of hemorrhage 06/04/2012 03/25/2018 Drug induced neutropenia(288.03) 05/14/2012 03/25/2018 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 Breslow 5.3 mm, Yfn IV, Mitotic rate 5/ sq mm. documented as of this encounter (statuses as of 04/06/2023) [facility] History of Past illness Narrative* Problem Noted Date Diagnosed Date Resolved Date Cellulitis of left lower extremity 09/29/2020 10/06/2021 [place] (acute kidney injury) 09/29/2020 Functional dyspepsia 02/11/2018 018 Overview: Added automatically from request for surgery [id number] History of pulmonary embolism 10/30/2016 03/25/2018 History of DVT (deep vein thrombosis) 10/30/2016 03/25/2018 Vertigo 05/04/2014 03/25/2018 Dizziness 03/13/2014 03/25/2018 Overview: History: - discharged from the hospital in February after a surgical EEG electrode placement, normal mentation - went to rehab and siccessfully completed rehab for 4 weeks - reached home appx 1 week back - per patient, there was some confusion regarding which anti epileptic medications he was supposed to be on. Noticed increased diziness since about 3 days back.Did not miss any of his medication doses/ no aura/ no tonic clonic movements/ no falls/ no focal weakness. Called up Dr Xie (his neurologist) and was asked to go to the ED. 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 and transferred to the [facility] for further evaluation - no complains today other than nausea - Tried calling his pharmacy in the evening to reach them, unable to get a response Assessment: - light headedness secondary to polypharmacy and inadvertent overdose vs subclinical seizures Plan: - symptoms already improved after adjusting medications - Epilepsy/ neurology Follow up after discharge DVT of proximal leg (deep vein thrombosis) 01/27/2014 03/25/2018 Calf DVT (deep venous thrombosis) 01/27/2014 03/25/2018 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 pylori infection 11/04/2013 03/25/20 18 Decreased libido 07/22/2013 03/25/2018 History of DVT/PE 01/12/2013 03/25/2018 Overview: - history of saddle PE in 2010 - IVC filter placed in 2011 possible in the setting of increased risk of falls while on coumadin - coumadin use complaicated by GI bleeding in the setting of supratherapeutic INR, warfarin stopped in 11/2012 - Repeat DVT involving common iliac/femoral and IVD distal to the filter in 01/2013 while off coumadin, restarted on coumadin - Currently sub therapeutic on coumadin PLAN: -Increase coumadin to 7.5 mg daily - continue coumadin for life in the setting of PE Continue to bridge with lovenox as INR subtherapeutic. 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 s/p clinical remission and now on Rituximab every 2 months , O/P oncologist Dr Ruiz - Epilepsy since , grand mal seizures s/p SEEG placement on 01/23 - 01/27 with localzation of seizure focus to the left temporal lobe, no grand mal seizures this year, follows up with Dr Xie for epilepsy, on Lacosamide, lamotrigine, keppra and clonazepam with confusion regarding his current medications - History of DVT PE, saddle PE 2010 started on coumadin c/b GI bleed in the setting of supratherapeutic INR, IVC filter placement 04/2012 in the setting of GI bleed and fall risk but continued on coumadin till 11/2012 . Recent DVT in the common iliac, femoral and IVC distal to the IVD filter in 01/2013 while off coumadin. Currently on coumadin and no bleeding episodes/ falls Who is transferred from [facility] for the further evaluation of his dizziness which started about 3 -4 days ago and is now resolved Thrombocytopenia 01/12/2013 12/28/2013 Overview: - Not acute - platelet in previous admission 141, todays labs pending - PREVIOUS ANTI PF4 negative - 4 T test score 4- intermediate probability, antiPF4 neg - could be 2/2 lamotrigine vs rituximab (althoug incidence more in RA patients) - no symptoms currently PLAN: - monitor blood counts Urgency of urination 09/10/2012 018 Frequency of urination 09/10/201203/25 Duodenitis without mention of hemorrhage 06/04/2012 03/25/2018 Drug induced neutropenia(288.03) 05/14/2012 03/25/2018 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 Breslow 5.3 mm, Yfn IV, Mitotic rate 5/ sq mm. documented as of this encounter (statuses as of 04/18/2023) [facility] History of Past illness Narrative* Problem Noted Date Diagnosed Date Resolved Date Cellulitis of left lower extremity 09/29/2020 10/06/2021 [place] (acute kidney injury) 09/29/2020 Functional dyspepsia 02/11/2018 018 Overview: Added automatically from request for surgery [id number] History of pulmonary embolism 10/30/2016 03/25/2018 History of DVT (deep vein thrombosis) 10/30/2016 03/25/2018 Vertigo 05/04/2014 03/25/2018 Dizziness 03/13/2014 03/25/2018 Overview: History: - discharged from the hospital in February after a surgical EEG electrode placement, normal mentation - went to rehab and siccessfully completed rehab for 4 weeks - reached home appx 1 week back - per patient, there was some confusion regarding which anti epileptic medications he was supposed to be on. Noticed increased diziness since about 3 days back.Did not miss any of his medication doses/ no aura/ no tonic clonic movements/ no falls/ no focal weakness. Called up Dr Xie (his neurologist) and was asked to go to the ED. 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 and transferred to the [facility] for further evaluation - no complains today other than nausea - Tried calling his pharmacy in the evening to reach them, unable to get a response Assessment: - light headedness secondary to polypharmacy and inadvertent overdose vs subclinical seizures Plan: - symptoms already improved after adjusting medications - Epilepsy/ neurology Follow up after discharge DVT of proximal leg (deep vein thrombosis) 01/27/2014 03/25/2018 Calf DVT (deep venous thrombosis) 01/27/2014 03/25/2018 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 pylori infection 11/04/2013 03/25/20 18 Decreased libido 07/22/2013 03/25/2018 History of DVT/PE 01/12/2013 03/25/2018 Overview: - history of saddle PE in 2010 - IVC filter placed in 2011 possible in the setting of increased risk of falls while on coumadin - coumadin use complaicated by GI bleeding in the setting of supratherapeutic INR, warfarin stopped in 11/2012 - Repeat DVT involving common iliac/femoral and IVD distal to the filter in 01/2013 while off coumadin, restarted on coumadin - Currently sub therapeutic on coumadin PLAN: -Increase coumadin to 7.5 mg daily - continue coumadin for life in the setting of PE Continue to bridge with lovenox as INR subtherapeutic. 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 s/p clinical remission and now on Rituximab every 2 months , O/P oncologist Dr Ruiz - Epilepsy since , grand mal seizures s/p SEEG placement on 01/23 - 01/27 with localzation of seizure focus to the left temporal lobe, no grand mal seizures this year, follows up with Dr Xie for epilepsy, on Lacosamide, lamotrigine, keppra and clonazepam with confusion regarding his current medications - History of DVT PE, saddle PE 2010 started on coumadin c/b GI bleed in the setting of supratherapeutic INR, IVC filter placement 04/2012 in the setting of GI bleed and fall risk but continued on coumadin till 11/2012 . Recent DVT in the common iliac, femoral and IVC distal to the IVD filter in 01/2013 while off coumadin. Currently on coumadin and no bleeding episodes/ falls Who is transferred from [facility] for the further evaluation of his dizziness which started about 3 -4 days ago and is now resolved Thrombocytopenia 01/12/2013 12/28/2013 Overview: - Not acute - platelet in previous admission 141, todays labs pending - PREVIOUS ANTI PF4 negative - 4 T test score 4- intermediate probability, antiPF4 neg - could be 2/2 lamotrigine vs rituximab (althoug incidence more in RA patients) - no symptoms currently PLAN: - monitor blood counts Urgency of urination 09/10/2012 018 Frequency of urination 09/10/201203/25 Duodenitis without mention of hemorrhage 06/04/2012 03/25/2018 Drug induced neutropenia(288.03) 05/14/2012 03/25/2018 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 Breslow 5.3 mm, Yfn IV, Mitotic rate 5/ sq mm. documented as of this encounter (statuses as of 04/19/2023) [facility]02-24-2021 History of Past illness Narrative* Problem Noted Date Diagnosed Date Resolved Date Cellulitis of left lower extremity 09/29/2020 10/06/2021 [place] (acute kidney injury) 09/29/2020 Functional dyspepsia 02/11/2018 018 Overview: Added automatically from request for surgery [id number] History of pulmonary embolism 10/30/2016 03/25/2018 History of DVT (deep vein thrombosis) 10/30/2016 03/25/2018 Vertigo 05/04/2014 03/25/2018 Dizziness 03/13/2014 03/25/2018 Overview: History: - discharged from the hospital in February after a surgical EEG electrode placement, normal mentation - went to rehab and siccessfully completed rehab for 4 weeks - reached home appx 1 week back - per patient, there was some confusion regarding which anti epileptic medications he was supposed to be on. Noticed increased diziness since about 3 days back.Did not miss any of his medication doses/ no aura/ no tonic clonic movements/ no falls/ no focal weakness. Called up Dr Xie (his neurologist) and was asked to go to the ED. 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 and transferred to the [facility] for further evaluation - no complains today other than nausea - Tried calling his pharmacy in the evening to reach them, unable to get a response Assessment: - light headedness secondary to polypharmacy and inadvertent overdose vs subclinical seizures Plan: - symptoms already improved after adjusting medications - Epilepsy/ neurology Follow up after discharge DVT of proximal leg (deep vein thrombosis) 01/27/2014 03/25/2018 Calf DVT (deep venous thrombosis) 01/27/2014 03/25/2018 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 pylori infection 11/04/2013 03/25/20 18 Decreased libido 07/22/2013 03/25/2018 History of DVT/PE 01/12/2013 03/25/2018 Overview: - history of saddle PE in 2010 - IVC filter placed in 2011 possible in the setting of increased risk of falls while on coumadin - coumadin use complaicated by GI bleeding in the setting of supratherapeutic INR, warfarin stopped in 11/2012 - Repeat DVT involving common iliac/femoral and IVD distal to the filter in 01/2013 while off coumadin, restarted on coumadin - Currently sub therapeutic on coumadin PLAN: -Increase coumadin to 7.5 mg daily - continue coumadin for life in the setting of PE Continue to bridge with lovenox as INR subtherapeutic. 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 s/p clinical remission and now on Rituximab every 2 months , O/P oncologist Dr Ruiz - Epilepsy since , grand mal seizures s/p SEEG placement on 01/23 - 01/27 with localzation of seizure focus to the left temporal lobe, no grand mal seizures this year, follows up with Dr Xie for epilepsy, on Lacosamide, lamotrigine, keppra and clonazepam with confusion regarding his current medications - History of DVT PE, saddle PE 2010 started on coumadin c/b GI bleed in the setting of supratherapeutic INR, IVC filter placement 04/2012 in the setting of GI bleed and fall risk but continued on coumadin till 11/2012 . Recent DVT in the common iliac, femoral and IVC distal to the IVD filter in 01/2013 while off coumadin. Currently on coumadin and no bleeding episodes/ falls Who is transferred from [facility] for the further evaluation of his dizziness which started about 3 -4 days ago and is now resolved Thrombocytopenia 01/12/2013 12/28/2013 Overview: - Not acute - platelet in previous admission 141, todays labs pending - PREVIOUS ANTI PF4 negative - 4 T test score 4- intermediate probability, antiPF4 neg - could be 2/2 lamotrigine vs rituximab (althoug incidence more in RA patients) - no symptoms currently PLAN: - monitor blood counts Urgency of urination 09/10/2012 018 Frequency of urination 09/10/201203/25 Duodenitis without mention of hemorrhage 06/04/2012 03/25/2018 Drug induced neutropenia(288.03) 05/14/2012 03/25/2018 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 Breslow 5.3 mm, Yfn IV, Mitotic rate 5/ sq mm. documented as of this encounter (statuses as of 04/25/2023) [facility]02-[facility]21 History of Past illness Narrative* Problem Noted Date Diagnosed Date Resolved Date Cellulitis of left lower extremity 09/29/2020 10/06/2021 [place] (acute kidney injury) 09/29/2020 Functional dyspepsia 02/11/2018 018 Overview: Added automatically from request for surgery [id number] History of pulmonary embolism 10/30/2016 03/25/2018 History of DVT (deep vein thrombosis) 10/30/2016 03/25/2018 Vertigo 05/04/2014 03/25/2018 Dizziness 03/13/2014 03/25/2018 Overview: History: - discharged from the hospital in February after a surgical EEG electrode placement, normal mentation - went to rehab and siccessfully completed rehab for 4 weeks - reached home appx 1 week back - per patient, there was some confusion regarding which anti epileptic medications he was supposed to be on. Noticed increased diziness since about 3 days back.Did not miss any of his medication doses/ no aura/ no tonic clonic movements/ no falls/ no focal weakness. Called up Dr Xie (his neurologist) and was asked to go to the ED. 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 and transferred to the [facility] for further evaluation - no complains today other than nausea - Tried calling his pharmacy in the evening to reach them, unable to get a response Assessment: - light headedness secondary to polypharmacy and inadvertent overdose vs subclinical seizures Plan: - symptoms already improved after adjusting medications - Epilepsy/ neurology Follow up after discharge DVT of proximal leg (deep vein thrombosis) 01/27/2014 03/25/2018 Calf DVT (deep venous thrombosis) 01/27/2014 03/25/2018 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 pylori infection 11/04/2013 03/25/20 18 Decreased libido 07/22/2013 03/25/2018 History of DVT/PE 01/12/2013 03/25/2018 Overview: - history of saddle PE in 2010 - IVC filter placed in 2011 possible in the setting of increased risk of falls while on coumadin - coumadin use complaicated by GI bleeding in the setting of supratherapeutic INR, warfarin stopped in 11/2012 - Repeat DVT involving common iliac/femoral and IVD distal to the filter in 01/2013 while off coumadin, restarted on coumadin - Currently sub therapeutic on coumadin PLAN: -Increase coumadin to 7.5 mg daily - continue coumadin for life in the setting of PE Continue to bridge with lovenox as INR subtherapeutic. 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 s/p clinical remission and now on Rituximab every 2 months , O/P oncologist Dr Ruiz - Epilepsy since , grand mal seizures s/p SEEG placement on 01/23 - 01/27 with localzation of seizure focus to the left temporal lobe, no grand mal seizures this year, follows up with Dr Xie for epilepsy, on Lacosamide, lamotrigine, keppra and clonazepam with confusion regarding his current medications - History of DVT PE, saddle PE 2010 started on coumadin c/b GI bleed in the setting of supratherapeutic INR, IVC filter placement 04/2012 in the setting of GI bleed and fall risk but continued on coumadin till 11/2012 . Recent DVT in the common iliac, femoral and IVC distal to the IVD filter in 01/2013 while off coumadin. Currently on coumadin and no bleeding episodes/ falls Who is transferred from [facility] for the further evaluation of his dizziness which started about 3 -4 days ago and is now resolved Thrombocytopenia 01/12/2013 12/28/2013 Overview: - Not acute - platelet in previous admission 141, todays labs pending - PREVIOUS ANTI PF4 negative - 4 T test score 4- intermediate probability, antiPF4 neg - could be 2/2 lamotrigine vs rituximab (althoug incidence more in RA patients) - no symptoms currently PLAN: - monitor blood counts Urgency of urination 09/10/2012 018 Frequency of urination 09/10/201203/25 Duodenitis without mention of hemorrhage 06/04/2012 03/25/2018 Drug induced neutropenia(288.03) 05/14/2012 03/25/2018 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 Breslow 5.3 mm, Yfn IV, Mitotic rate 5/ sq mm. documented as of this encounter (statuses as of 05/02/2023) [facility] History of Past illness Narrative* Problem Noted Date Diagnosed Date Resolved Date Cellulitis of left lower extremity 09/29/2020 10/06/2021 [place] (acute kidney injury) 09/29/2020 Functional dyspepsia 02/11/2018 018 Overview: Added automatically from request for surgery [id number] History of pulmonary embolism 10/30/2016 03/25/2018 History of DVT (deep vein thrombosis) 10/30/2016 03/25/2018 Vertigo 05/04/2014 03/25/2018 Dizziness 03/13/2014 03/25/2018 Overview: History: - discharged from the hospital in February after a surgical EEG electrode placement, normal mentation - went to rehab and siccessfully completed rehab for 4 weeks - reached home appx 1 week back - per patient, there was some confusion regarding which anti epileptic medications he was supposed to be on. Noticed increased diziness since about 3 days back.Did not miss any of his medication doses/ no aura/ no tonic clonic movements/ no falls/ no focal weakness. Called up Dr Xie (his neurologist) and was asked to go to the ED. 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 and transferred [facility] evaluation - no complains today other than nausea - Tried calling his pharmacy in the evening to reach them, unable to get a response Assessment: - light headedness secondary to polypharmacy and inadvertent overdose vs subclinical seizures Plan: - symptoms already improved after adjusting medications - Epilepsy/ neurology Follow up after discharge DVT of proximal leg (deep vein thrombosis) 01/27/2014 03/25/2018 Calf DVT (deep venous thrombosis) 01/27/2014 03/25/2018 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 pylori infection 11/04/2013 03/25/20 18 Decreased libido 07/22/2013 03/25/2018 History of DVT/PE 01/12/2013 03/25/2018 Overview: - history of saddle PE in 2010 - IVC filter placed in 2011 possible in the setting of increased risk of falls while on coumadin - coumadin use complaicated by GI bleeding in the setting of supratherapeutic INR, warfarin stopped in 11/2012 - Repeat DVT involving common iliac/femoral and IVD distal to the filter in 01/2013 while off coumadin, restarted on coumadin - Currently sub therapeutic on coumadin PLAN: -Increase coumadin to 7.5 mg daily - continue coumadin for life in the setting of PE Continue to bridge with lovenox as INR subtherapeutic. 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 s/p clinical remission and now on Rituximab every 2 months , O/P oncologist Dr Ruiz - Epilepsy since , grand mal seizures s/p SEEG placement on 01/23 - 01/27 with localzation of seizure focus to the left temporal lobe, no grand mal seizures this year, follows up with Dr Xie for epilepsy, on Lacosamide, lamotrigine, keppra and clonazepam with confusion regarding his current medications - History of DVT PE, saddle PE 2010 started on coumadin c/b GI bleed in the setting of supratherapeutic INR, IVC filter placement 04/2012 in the setting of GI bleed and fall risk but continued on coumadin till 11/2012 . Recent DVT in the common iliac, femoral and IVC distal to the IVD filter in 01/2013 while off coumadin. Currently on coumadin and no bleeding episodes/ falls Who is transferred from [facility] for the further evaluation of his dizziness which started about 3 -4 days ago and is now resolved Thrombocytopenia 01/12/2013 12/28/2013 Overview: - Not acute - platelet in previous admission 141, todays labs pending - PREVIOUS ANTI PF4 negative - 4 T test score 4- intermediate probability, antiPF4 neg - could be 2/2 lamotrigine vs rituximab (althoug incidence more in RA patients) - no symptoms currently PLAN: - monitor blood counts Urgency of urination 09/10/2012 018 Frequency of urination 09/10/201203/25 Duodenitis without mention of hemorrhage 06/04/2012 03/25/2018 Drug induced neutropenia(288.03) 05/14/2012 03/25/2018 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 Breslow 5.3 mm, Ynf IV, Mitotic rate 5/ sq mm. documented as of this encounter (statuses as of 05/24/2023) [facility] History of Past illness Narrative* Problem Noted Date Diagnosed Date Resolved Date Cellulitis of left lower extremity 09/29/2020 10/06/2021 [place] (acute kidney injury) 09/29/2020 Functional dyspepsia 02/11/2018 018 Overview: Added automatically from request for surgery [id number] History of pulmonary embolism 10/30/2016 03/25/2018 History of DVT (deep vein thrombosis) 10/30/2016 03/25/2018 Vertigo 05/04/2014 03/25/2018 Dizziness 03/13/2014 03/25/2018 Overview: History: - discharged from the hospital in February after a surgical EEG electrode placement, normal mentation - went to rehab and siccessfully completed rehab for 4 weeks - reached home appx 1 week back - per patient, there was some confusion regarding which anti epileptic medications he was supposed to be on. Noticed increased diziness since about 3 days back.Did not miss any of his medication doses/ no aura/ no tonic clonic movements/ no falls/ no focal weakness. Called up Dr Xie (his neurologist) and was asked to go to the ED. 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 and transferred to the [facility] for further evaluation - no complains today other than nausea - Tried calling his pharmacy in the evening to reach them, unable to get a response Assessment: - light headedness secondary to polypharmacy and inadvertent overdose vs subclinical seizures Plan: - symptoms already improved after adjusting medications - Epilepsy/ neurology Follow up after discharge DVT of proximal leg (deep vein thrombosis) 01/27/2014 03/25/2018 Calf DVT (deep venous thrombosis) 01/27/2014 03/25/2018 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 pylori infection 11/04/2013 03/25/20 18 Decreased libido 07/22/2013 03/25/2018 History of DVT/PE 01/12/2013 03/25/2018 Overview: - history of saddle PE in 2010 - IVC filter placed in 2011 possible in the setting of increased risk of falls while on coumadin - coumadin use complaicated by GI bleeding in the setting of supratherapeutic INR, warfarin stopped in 11/2012 - Repeat DVT involving common iliac/femoral and IVD distal to the filter in 01/2013 while off coumadin, restarted on coumadin - Currently sub therapeutic on coumadin PLAN: -Increase coumadin to 7.5 mg daily - continue coumadin for life in the setting of PE Continue to bridge with lovenox as INR subtherapeutic. Follow PT/INR daily while in hospital 5 days Lovenox needed at discharge - social work trying to arrange as patient has no coverage F/U PT/INR 15 as outpatient arranged SUMMARY 01/12/2013 03/25/2018 Overview: Mr Breen is a 58 y M with a medical history significant for: - Grade 3 Follicilar lymphoma, 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 s/p clinical remission and now on Rituximab every 2 months , O/P oncologist Dr Ruiz - Epilepsy since , grand mal seizures s/p SEEG placement on 01/23 - 01/27 with localzation of seizure focus to the left temporal lobe, no grand mal seizures this year, follows up with Dr Xie for epilepsy, on Lacosamide, lamotrigine, keppra and clonazepam with confusion regarding his current medications - History of DVT PE, saddle PE 2010 started on coumadin c/b GI bleed in the setting of supratherapeutic INR, IVC filter placement 04/2012 in the setting of GI bleed and fall risk but continued on coumadin till 11/2012 . Recent DVT in the common iliac, femoral and IVC distal to the IVD filter in 01/2013 while off coumadin. Currently on coumadin and no bleeding episodes/ falls Who is transferred from [facility] for the further evaluation of his dizziness which started about 3 -4 days ago and is now resolved Thrombocytopenia 01/12/2013 12/28/2013 Overview: - Not acute - platelet in previous admission 141, todays labs pending - PREVIOUS ANTI PF4 negative - 4 T test score 4- intermediate probability, antiPF4 neg - could be 2/2 lamotrigine vs rituximab (althoug incidence more in RA patients) - no symptoms currently PLAN: - monitor blood counts Urgency of urination 09/10/2012 018 Frequency of urination 09/10/201203/25 Duodenitis without mention of hemorrhage 06/04/2012 03/25/2018 Drug induced neutropenia(288.03) 05/14/2012 03/25/2018 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 Breslow 5.3 mm, Yfn IV, Mitotic rate 5/ sq mm. documented as of this encounter (statuses as of 07/12/2023) [facility]02-24-2021 History of Past illness Narrative* Problem Noted Date Diagnosed Date Resolved Date Cellulitis of left lower extremity 09/29/2020 10/06/2021 [place] (acute kidney injury) 09/29/2020 Functional dyspepsia 02/11/2018 018 Overview: Added automatically from request for surgery [id number] History of pulmonary embolism 10/30/2016 03/25/2018 History of DVT (deep vein thrombosis) 10/30/2016 03/25/2018 Vertigo 05/04/2014 03/25/2018 Dizziness 03/13/2014 03/25/2018 Overview: History: - discharged from the hospital in February after a surgical EEG electrode placement, normal mentation - went to rehab and siccessfully completed rehab for 4 weeks - reached home appx 1 week back - per patient, there was some confusion regarding which anti epileptic medications he was supposed to be on. Noticed increased diziness since about 3 days back.Did not miss any of his medication doses/ no aura/ no tonic clonic movements/ no falls/ no focal weakness. Called up Dr Xie (his neurologist) and was asked to go to the ED. 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 and transferred to the [facility] for further evaluation - no complains today other than nausea - Tried calling his pharmacy in the evening to reach them, unable to get a response Assessment: - light headedness secondary to polypharmacy and inadvertent overdose vs subclinical seizures Plan: - symptoms already improved after adjusting medications - Epilepsy/ neurology Follow up after discharge DVT of proximal leg (deep vein thrombosis) 01/27/2014 03/25/2018 Calf DVT (deep venous thrombosis) 01/27/2014 03/25/2018 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 pylori infection 11/04/2013 03/25/20 18 Decreased libido 07/22/2013 03/25/2018 History of DVT/PE 01/12/2013 03/25/2018 Overview: - history of saddle PE in 2010 - IVC filter placed in 2011 possible in the setting of increased risk of falls while on coumadin - coumadin use complaicated by GI bleeding in the setting of supratherapeutic INR, warfarin stopped in 11/2012 - Repeat DVT involving common iliac/femoral and IVD distal to the filter in 01/2013 while off coumadin, restarted on coumadin - Currently sub therapeutic on coumadin PLAN: -Increase coumadin to 7.5 mg daily - continue coumadin for life in the setting of PE Continue to bridge with lovenox as INR subtherapeutic. 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 s/p clinical remission and now on Rituximab every 2 months , O/P oncologist Dr Ruiz - Epilepsy since , grand mal seizures s/p SEEG placement on 01/23 - 01/27 with localzation of seizure focus to the left temporal lobe, no grand mal seizures this year, follows up with Dr Xie for epilepsy, on Lacosamide, lamotrigine, keppra and clonazepam with confusion regarding his current medications - History of DVT PE, saddle PE 2010 started on coumadin c/b GI bleed in the setting of supratherapeutic INR, IVC filter placement 04/2012 in the setting of GI bleed and fall risk but continued on coumadin till 11/2012 . Recent DVT in the common iliac, femoral and IVC distal to the IVD filter in 01/2013 while off coumadin. Currently on coumadin and no bleeding episodes/ falls Who is transferred from [facility] for the further evaluation of his dizziness which started about 3 -4 days ago and is now resolved Thrombocytopenia 01/12/2013 12/28/2013 Overview: - Not acute - platelet in previous admission 141, todays labs pending - PREVIOUS ANTI PF4 negative - 4 T test score 4- intermediate probability, antiPF4 neg - could be 2/2 lamotrigine vs rituximab (althoug incidence more in RA patients) - no symptoms currently PLAN: - monitor blood counts Urgency of urination 09/10/2012 018 Frequency of urination 09/10/201203/25 Duodenitis without mention of hemorrhage 06/04/2012 03/25/2018 Drug induced neutropenia(288.03) 05/14/2012 03/25/2018 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 Breslow 5.3 mm, Yfn IV, Mitotic rate 5/ sq mm. documented as of this encounter (statuses as of 07/12/2023) [facility]02-24-[facility]21 History of Past illness Narrative* Problem Noted Date Diagnosed Date Resolved Date Cellulitis of left lower extremity 09/29/2020 10/06/2021 [place] (acute kidney injury) 09/29/2020 Functional dyspepsia 02/11/2018 018 Overview: Added automatically from request for surgery [id number] History of pulmonary embolism 10/30/2016 03/25/2018 History of DVT (deep vein thrombosis) 10/30/2016 03/25/2018 Vertigo 05/04/2014 03/25/2018 Dizziness 03/13/2014 03/25/2018 Overview: History: - discharged from the hospital in February after a surgical EEG electrode placement, normal mentation - went to rehab and siccessfully completed rehab for 4 weeks - reached home appx 1 week back - per patient, there was some confusion regarding which anti epileptic medications he was supposed to be on. Noticed increased diziness since about 3 days back.Did not miss any of his medication doses/ no aura/ no tonic clonic movements/ no falls/ no focal weakness. Called up Dr Xie (his neurologist) and was asked to go to the ED. 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 and transferred to the [facility] for further evaluation - no complains today other than nausea - Tried calling his pharmacy in the evening to reach them, unable to get a response Assessment: - light headedness secondary to polypharmacy and inadvertent overdose vs subclinical seizures Plan: - symptoms already improved after adjusting medications - Epilepsy/ neurology Follow up after discharge DVT of proximal leg (deep vein thrombosis) 01/27/2014 03/25/2018 Calf DVT (deep venous thrombosis) 01/27/2014 03/25/2018 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 pylori infection 11/04/2013 03/25/20 18 Decreased libido 07/22/2013 03/25/2018 History of DVT/PE 01/12/2013 03/25/2018 Overview: - history of saddle PE in 2010 - IVC filter placed in 2011 possible in the setting of increased risk of falls while on coumadin - coumadin use complaicated by GI bleeding in the setting of supratherapeutic INR, warfarin stopped in 11/2012 - Repeat DVT involving common iliac/femoral and IVD distal to the filter in 01/2013 while off coumadin, restarted on coumadin - Currently sub therapeutic on coumadin PLAN: -Increase coumadin to 7.5 mg daily - continue coumadin for life in the setting of PE Continue to bridge with lovenox as INR subtherapeutic. 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 s/p clinical remission and now on Rituximab every 2 months , O/P oncologist Dr Ruiz - Epilepsy since , grand mal seizures s/p SEEG placement on 01/23 - 01/27 with localzation of seizure focus to the left temporal lobe, no grand mal seizures this year, follows up with Dr Xie for epilepsy, on Lacosamide, lamotrigine, keppra and clonazepam with confusion regarding his current medications - History of DVT PE, saddle PE 2010 started on coumadin c/b GI bleed in the setting of supratherapeutic INR, IVC filter placement 04/2012 in the setting of GI bleed and fall risk but continued on coumadin till 11/2012 . Recent DVT in the common iliac, femoral and IVC distal to the IVD filter in 01/2013 while off coumadin. Currently on coumadin and no bleeding episodes/ falls Who is transferred from [facility] for the further evaluation of his dizziness which started about 3 -4 days ago and is now resolved Thrombocytopenia 01/12/2013 12/28/2013 Overview: - Not acute - platelet in previous admission 141, todays labs pending - PREVIOUS ANTI PF4 negative - 4 T test score 4- intermediate probability, antiPF4 neg - could be 2/2 lamotrigine vs rituximab (althoug incidence more in RA patients) - no symptoms currently PLAN: - monitor blood counts Urgency of urination 09/10/2012 018 Frequency of urination 09/10/201203/25 Duodenitis without mention of hemorrhage 06/04/2012 03/25/2018 Drug induced neutropenia(288.03) 05/14/2012 03/25/2018 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 Breslow 5.3 mm, Yfn IV, Mitotic rate 5/ sq mm. documented as of this encounter (statuses as of 07/19/2023) [facility] History of Past illness Narrative* Problem Noted Date Diagnosed Date Resolved Date Cellulitis of left lower extremity 09/29/2020 10/06/2021 [place] (acute kidney injury) 09/29/2020 Functional dyspepsia 02/11/2018 018 Overview: Added automatically from request for surgery [id number] History of pulmonary embolism 10/30/2016 03/25/2018 History of DVT (deep vein thrombosis) 10/30/2016 03/25/2018 Vertigo 05/04/2014 03/25/2018 Dizziness 03/13/2014 03/25/2018 Overview: History: - discharged from the hospital in February after a surgical EEG electrode placement, normal mentation - went to rehab and siccessfully completed rehab for 4 weeks - reached home appx 1 week back - per patient, there was some confusion regarding which anti epileptic medications he was supposed to be on. Noticed increased diziness since about 3 days back.Did not miss any of his medication doses/ no aura/ no tonic clonic movements/ no falls/ no focal weakness. Called up Dr Xie (his neurologist) and was asked to go to the ED. 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 and transferred to the [facility] for further evaluation - no complains today other than nausea - Tried calling his pharmacy in the evening to reach them, unable to get a response Assessment: - light headedness secondary to polypharmacy and inadvertent overdose vs subclinical seizures Plan: - symptoms already improved after adjusting medications - Epilepsy/ neurology Follow up after discharge DVT of proximal leg (deep vein thrombosis) 01/27/2014 03/25/2018 Calf DVT (deep venous thrombosis) 01/27/2014 03/25/2018 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 pylori infection 11/04/2013 03/25/20 18 Decreased libido 07/22/2013 03/25/2018 History of DVT/PE 01/12/2013 03/25/2018 Overview: - history of saddle PE in 2010 - IVC filter placed in 2011 possible in the setting of increased risk of falls while on coumadin - coumadin use complaicated by GI bleeding in the setting of supratherapeutic INR, warfarin stopped in 11/2012 - Repeat DVT involving common iliac/femoral and IVD distal to the filter in 01/2013 while off coumadin, restarted on coumadin - Currently sub therapeutic on coumadin PLAN: -Increase coumadin to 7.5 mg daily - continue coumadin for life in the setting of PE Continue to bridge with lovenox as INR subtherapeutic. 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 s/p clinical remission and now on Rituximab every 2 months , O/P oncologist Dr Ruiz - Epilepsy since , grand mal seizures s/p SEEG placement on 01/23 - 01/27 with localzation of seizure focus to the left temporal lobe, no grand mal seizures this year, follows up with Dr Xie for epilepsy, on Lacosamide, lamotrigine, keppra and clonazepam with confusion regarding his current medications - History of DVT PE, saddle PE 2010 started on coumadin c/b GI bleed in the setting of supratherapeutic INR, IVC filter placement 04/2012 in the setting of GI bleed and fall risk but continued on coumadin till 11/2012 . Recent DVT in the common iliac, femoral and IVC distal to the IVD filter in 01/2013 while off coumadin. Currently on coumadin and no bleeding episodes/ falls Who is transferred from [facility] for the further evaluation of his dizziness which started about 3 -4 days ago and is now resolved Thrombocytopenia 01/12/2013 12/28/2013 Overview: - Not acute - platelet in previous admission 141, todays labs pending - PREVIOUS ANTI PF4 negative - 4 T test score 4- intermediate probability, antiPF4 neg - could be 2/2 lamotrigine vs rituximab (althoug incidence more in RA patients) - no symptoms currently PLAN: - monitor blood counts Urgency of urination 09/10/2012 018 Frequency of urination 09/10/201203/25 Duodenitis without mention of hemorrhage 06/04/2012 03/25/2018 Drug induced neutropenia(288.03) 05/14/2012 03/25/2018 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 Breslow 5.3 mm, Yfn IV, Mitotic rate 5/ sq mm. documented as of this encounter (statuses as of 09/18/2023) [facility] History of Past illness Narrative* Problem Noted Date Diagnosed Date Resolved Date Cellulitis of left lower extremity 09/29/2020 10/06/2021 [place] (acute kidney injury) 09/29/2020 Functional dyspepsia 02/11/2018 018 Overview: Added automatically from request for surgery [id number] History of pulmonary embolism 10/30/2016 03/25/2018 History of DVT (deep vein thrombosis) 10/30/2016 03/25/2018 Vertigo 05/04/2014 03/25/2018 Dizziness 03/13/2014 03/25/2018 Overview: History: - discharged from the hospital in February after a surgical EEG electrode placement, normal mentation - went to rehab and siccessfully completed rehab for 4 weeks - reached home appx 1 week back - per patient, there was some confusion regarding which anti epileptic medications he was supposed to be on. Noticed increased diziness since about 3 days back.Did not miss any of his medication doses/ no aura/ no tonic clonic movements/ no falls/ no focal weakness. Called up Dr Xie (his neurologist) and was asked to go to the ED. 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 and transferred to the [facility] for further evaluation - no complains today other than nausea - Tried calling his pharmacy in the evening to reach them, unable to get a response Assessment: - light headedness secondary to polypharmacy and inadvertent overdose vs subclinical seizures Plan: - symptoms already improved after adjusting medications - Epilepsy/ neurology Follow up after discharge DVT of proximal leg (deep vein thrombosis) 01/27/2014 03/25/2018 Calf DVT (deep venous thrombosis) 01/27/2014 03/25/2018 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 pylori infection 11/04/2013 03/25/20 18 Decreased libido 07/22/2013 03/25/2018 History of DVT/PE 01/12/2013 03/25/2018 Overview: - history of saddle PE in 2010 - IVC filter placed in 2011 possible in the setting of increased risk of falls while on coumadin - coumadin use complaicated by GI bleeding in the setting of supratherapeutic INR, warfarin stopped in 11/2012 - Repeat DVT involving common iliac/femoral and IVD distal to the filter in 01/2013 while off coumadin, restarted on coumadin - Currently sub therapeutic on coumadin PLAN: -Increase coumadin to 7.5 mg daily - continue coumadin for life in the setting of PE Continue to bridge with lovenox as INR subtherapeutic. 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 s/p clinical remission and now on Rituximab every 2 months , O/P oncologist Dr Ruiz - Epilepsy since , grand mal seizures s/p SEEG placement on 01/23 - 01/27 with localzation of seizure focus to the left temporal lobe, no grand mal seizures this year, follows up with Dr Xie for epilepsy, on Lacosamide, lamotrigine, keppra and clonazepam with confusion regarding his current medications - History of DVT PE, saddle PE 2010 started on coumadin c/b GI bleed in the setting of supratherapeutic INR, IVC filter placement 04/2012 in the setting of GI bleed and fall risk but continued on coumadin till 11/2012 . Recent DVT in the common iliac, femoral and IVC distal to the IVD filter in 01/2013 while off coumadin. Currently on coumadin and no bleeding episodes/ falls Who is transferred from [facility] for the further evaluation of his dizziness which started about 3 -4 days ago and is now resolved Thrombocytopenia 01/12/2013 12/28/2013 Overview: - Not acute - platelet in previous admission 141, todays labs pending - PREVIOUS ANTI PF4 negative - 4 T test score 4- intermediate probability, antiPF4 neg - could be 2/2 lamotrigine vs rituximab (althoug incidence more in RA patients) - no symptoms currently PLAN: - monitor blood counts Urgency of urination 09/10/2012 018 Frequency of urination 09/10/201203/25 Duodenitis without mention of hemorrhage 06/04/2012 03/25/2018 Drug induced neutropenia(288.03) 05/14/2012 03/25/2018 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 Breslow 5.3 mm, Yfn IV, Mitotic rate 5/ sq mm. documented as of this encounter (statuses as of 09/28/2023) [facility] History of Past illness Narrative* Problem Noted Date Diagnosed Date Resolved Date Cellulitis of left lower extremity 09/29/2020 10/06/2021 [place] (acute [place] 09/29/2020 Functional dyspepsia 02/11/2018 018 Overview: Added automatically from request for surgery [id number] History of pulmonary embolism 10/30/2016 03/25/2018 History of DVT (deep vein thrombosis) 10/30/2016 03/25/2018 Vertigo 05/04/2014 03/25/2018 Dizziness 03/13/2014 03/25/2018 Overview: History: - discharged from the hospital in February after a surgical EEG electrode placement, normal mentation - went to rehab and siccessfully completed rehab for 4 weeks - reached home appx 1 week back - per patient, there was some confusion regarding which anti epileptic medications he was supposed to be on. Noticed increased diziness since about 3 days back.Did not miss any of his medication doses/ no aura/ no tonic clonic movements/ no falls/ no focal weakness. Called up Dr Xie (his neurologist) and was asked to go to the ED. 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 and transferred to the [facility] for further evaluation - no complains today other than nausea - Tried calling his pharmacy in the evening to reach them, unable to get a response Assessment: - light headedness secondary to polypharmacy and inadvertent overdose vs subclinical seizures Plan: - symptoms already improved after adjusting medications - Epilepsy/ neurology Follow up after discharge DVT of proximal leg (deep vein thrombosis) 01/27/2014 03/25/2018 Calf DVT (deep venous thrombosis) 01/27/2014 03/25/2018 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 pylori infection 11/04/2013 03/25/20 18 Decreased libido 07/22/2013 03/25/2018 History of DVT/PE 01/12/2013 03/25/2018 Overview: - history of saddle PE in 2010 - IVC filter placed in 2011 possible in the setting of increased risk of falls while on coumadin - coumadin use complaicated by GI bleeding in the setting of supratherapeutic INR, warfarin stopped in 11/2012 - Repeat DVT involving common iliac/femoral and IVD distal to the filter in 01/2013 while off coumadin, restarted on coumadin - Currently sub therapeutic on coumadin PLAN: -Increase coumadin to 7.5 mg daily - continue coumadin for life in the setting of PE Continue to bridge with lovenox as INR subtherapeutic. 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 s/p clinical remission and now on Rituximab every 2 months , O/P oncologist Dr Ruiz - Epilepsy since , grand mal seizures s/p SEEG placement on 01/23 - 01/27 with localzation of seizure focus to the left temporal lobe, no grand mal seizures this year, follows up with Dr Xie for epilepsy, on Lacosamide, lamotrigine, keppra and clonazepam with confusion regarding his current medications - History of DVT PE, saddle PE 2010 started on coumadin c/b GI bleed in the setting of supratherapeutic INR, IVC filter placement 04/2012 in the setting of GI bleed and fall risk but continued on coumadin till 11/2012 . Recent DVT in the common iliac, femoral and IVC distal to the IVD filter in 01/2013 while off coumadin. Currently on coumadin and no bleeding episodes/ falls Who is transferred from [facility] for the further evaluation of his dizziness which started about 3 -4 days ago and is now resolved Thrombocytopenia 01/12/2013 12/28/2013 Overview: - Not acute - platelet in previous admission 141, todays labs pending - PREVIOUS ANTI PF4 negative - 4 T test score 4- intermediate probability, antiPF4 neg - could be 2/2 lamotrigine vs rituximab (althoug incidence more in RA patients) - no symptoms currently PLAN: - monitor blood counts Urgency of urination 09/10/2012 018 Frequency of urination 09/10/201203/25 Duodenitis without mention of hemorrhage 06/04/2012 03/25/2018 Drug induced neutropenia(288.03) 05/14/2012 03/25/2018 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 Breslow 5.3 mm, Yfn IV, Mitotic rate 5/ sq mm. documented as of this encounter (statuses as of 10/08/2023) [facility]02-[facility]21 History of Past illness Narrative* Problem Noted Date Diagnosed Date Resolved Date Cellulitis of left lower extremity 09/29/2020 10/06/2021 [place] (acute kidney injury) 09/29/2020 Functional dyspepsia 02/11/2018 018 Overview: Added automatically from request for surgery [id number] History of pulmonary embolism 10/30/2016 03/25/2018 History of DVT (deep vein thrombosis) 10/30/2016 03/25/2018 Vertigo 05/04/2014 03/25/2018 Dizziness 03/13/2014 03/25/2018 Overview: History: - discharged from the hospital in February after a surgical EEG electrode placement, normal mentation - went to rehab and siccessfully completed rehab for 4 weeks - reached home appx 1 week back - per patient, there was some confusion regarding which anti epileptic medications he was supposed to be on. Noticed increased diziness since about 3 days back.Did not miss any of his medication doses/ no aura/ no tonic clonic movements/ no falls/ no focal weakness. Called up Dr Xie (his neurologist) and was asked to go to the ED. 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 and transferred to the [facility] for further evaluation - no complains today other than nausea - Tried calling his pharmacy in the evening to reach them, unable to get a response Assessment: - light headedness secondary to polypharmacy and inadvertent overdose vs subclinical seizures Plan: - symptoms already improved after adjusting medications - Epilepsy/ neurology Follow up after discharge DVT of proximal leg (deep vein thrombosis) 01/27/2014 03/25/2018 Calf DVT (deep venous thrombosis) 01/27/2014 03/25/2018 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 pylori infection 11/04/2013 03/25/20 18 Decreased libido 07/22/2013 03/25/2018 History of DVT/PE 01/12/2013 03/25/2018 Overview: - history of saddle PE in 2010 - IVC filter placed in 2011 possible in the setting of increased risk of falls while on coumadin - coumadin use complaicated by GI bleeding in the setting of supratherapeutic INR, warfarin stopped in 11/2012 - Repeat DVT involving common iliac/femoral and IVD distal to the filter in 01/2013 while off coumadin, restarted on coumadin - Currently sub therapeutic on coumadin PLAN: -Increase coumadin to 7.5 mg daily - continue coumadin for life in the setting of PE Continue to bridge with lovenox as INR subtherapeutic. 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 s/p clinical remission and now on Rituximab every 2 months , O/P oncologist Dr Ruiz - Epilepsy since , grand mal seizures s/p SEEG placement on 01/23 - 01/27 with localzation of seizure focus to the left temporal lobe, no grand mal seizures this year, follows up with Dr Xie for epilepsy, on Lacosamide, lamotrigine, keppra and clonazepam with confusion regarding his current medications - History of DVT PE, saddle PE 2010 started on coumadin c/b GI bleed in the setting of supratherapeutic INR, IVC filter placement 04/2012 in the setting of GI bleed and fall risk but continued on coumadin till 11/2012 . Recent DVT in the common iliac, femoral and IVC distal to the IVD filter in 01/2013 while off coumadin. Currently on coumadin and no bleeding episodes/ falls Who is transferred from [facility] for the further evaluation of his dizziness which started about 3 -4 days ago and is now resolved Thrombocytopenia 01/12/2013 12/28/2013 Overview: - Not acute - platelet in previous admission 141, todays labs pending - PREVIOUS ANTI PF4 negative - 4 T test score 4- intermediate probability, antiPF4 neg - could be 2/2 lamotrigine vs rituximab (althoug incidence more in RA patients) - no symptoms currently PLAN: - monitor blood counts Urgency of urination 09/10/2012 018 Frequency of urination 09/10/201203/25 Duodenitis without mention of hemorrhage 06/04/2012 03/25/2018 Drug induced neutropenia(288.03) 05/14/2012 03/25/2018 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 Breslow 5.3 mm, Yfn IV, Mitotic rate 5/ sq mm. documented as of this encounter (statuses as of 10/09/2023) [facility]02-24-[facility]21 History of Past illness Narrative* Problem Noted Date Diagnosed Date Resolved Date Cellulitis of left lower extremity 09/29/2020 10/06/2021 [place] (acute kidney injury) 09/29/2020 Functional dyspepsia 02/11/2018 018 Overview: Added automatically from request for surgery [id number] History of pulmonary embolism 10/30/2016 03/25/2018 History of DVT (deep vein thrombosis) 10/30/2016 03/25/2018 Vertigo 05/04/2014 03/25/2018 Dizziness 03/13/2014 03/25/2018 Overview: History: - discharged from the hospital in February after a surgical EEG electrode placement, normal mentation - went to rehab and siccessfully completed rehab for 4 weeks - reached home appx 1 week back - per patient, there was some confusion regarding which anti epileptic medications he was supposed to be on. Noticed increased diziness since about 3 days back.Did not miss any of his medication doses/ no aura/ no tonic clonic movements/ no falls/ no focal weakness. Called up Dr Xie (his neurologist) and was asked to go to the ED. 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 and transferred to [facility] further evaluation - no complains today other than nausea - Tried calling his pharmacy in the evening to reach them, unable to get a response Assessment: - light headedness secondary to polypharmacy and inadvertent overdose vs subclinical seizures Plan: - symptoms already improved after adjusting medications - Epilepsy/ neurology Follow up after discharge DVT of proximal leg (deep vein thrombosis) 01/27/2014 03/25/2018 Calf DVT (deep venous thrombosis) 01/27/2014 03/25/2018 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 pylori infection 11/04/2013 03/25/20 18 Decreased libido 07/22/2013 03/25/2018 History of DVT/PE 01/12/2013 03/25/2018 Overview: - history of saddle PE in 2010 - IVC filter placed in 2011 possible in the setting of increased risk of falls while on coumadin - coumadin use complaicated by GI bleeding in the setting of supratherapeutic INR, warfarin stopped in 11/2012 - Repeat DVT involving common iliac/femoral and IVD distal to the filter in 01/2013 while off coumadin, restarted on coumadin - Currently sub therapeutic on coumadin PLAN: -Increase coumadin to 7.5 mg daily - continue coumadin for life in the setting of PE Continue to bridge with lovenox as INR subtherapeutic. 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 s/p clinical remission and now on Rituximab every 2 months , O/P oncologist Dr Ruiz - Epilepsy since , grand mal seizures s/p SEEG placement on 01/23 - 01/27 with localzation of seizure focus to the left temporal lobe, no grand mal seizures this year, follows up with Dr Xie for epilepsy, on Lacosamide, lamotrigine, keppra and clonazepam with confusion regarding his current medications - History of DVT PE, saddle PE 2010 started on coumadin c/b GI bleed in the setting of supratherapeutic INR, IVC filter placement 04/2012 in the setting of GI bleed and fall risk but continued on coumadin till 11/2012 . Recent DVT in the common iliac, femoral and IVC distal to the IVD filter in 01/2013 while off coumadin. Currently on coumadin and no bleeding episodes/ falls Who is transferred from [facility] for the further evaluation of his dizziness which started about 3 -4 days ago and is now resolved Thrombocytopenia 01/12/2013 12/28/2013 Overview: - Not acute - platelet in previous admission 141, todays labs pending - PREVIOUS ANTI PF4 negative - 4 T test score 4- intermediate probability, antiPF4 neg - could be 2/2 lamotrigine vs rituximab (althoug incidence more in RA patients) - no symptoms currently PLAN: - monitor blood counts Urgency of urination 09/10/2012 018 Frequency of urination 09/10/201203/25 Duodenitis without mention of hemorrhage 06/04/2012 03/25/2018 Drug induced neutropenia(288.03) 05/14/2012 03/25/2018 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 Breslow 5.3 mm, Yfn IV, Mitotic rate 5/ sq mm. documented as of this encounter (statuses as of 10/30/2023) [facility]02-[facility] History of Past illness Narrative* Problem Noted Date Diagnosed Date Resolved Date Cellulitis of left lower extremity 09/29/2020 10/06/2021 [place] (acute kidney injury) 09/29/2020 Functional dyspepsia 02/11/2018 018 Overview: Added automatically from request for surgery [id number] History of pulmonary embolism 10/30/2016 03/25/2018 History of DVT (deep vein thrombosis) 10/30/2016 03/25/2018 Vertigo 05/04/2014 03/25/2018 Dizziness 03/13/2014 03/25/2018 Overview: History: - discharged from the hospital in February after a surgical EEG electrode placement, normal mentation - went to rehab and siccessfully completed rehab for 4 weeks - reached home appx 1 week back - per patient, there was some confusion regarding which anti epileptic medications he was supposed to be on. Noticed increased diziness since about 3 days back.Did not miss any of his medication doses/ no aura/ no tonic clonic movements/ no falls/ no focal weakness. Called up Dr Xie (his neurologist) and was asked to go to the ED. 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 and transferred to the [facility] for further evaluation - no complains today other than nausea - Tried calling his pharmacy in the evening to reach them, unable to get a response Assessment: - light headedness secondary to polypharmacy and inadvertent overdose vs subclinical seizures Plan: - symptoms already improved after adjusting medications - Epilepsy/ neurology Follow up after discharge DVT of proximal leg (deep vein thrombosis) 01/27/2014 03/25/2018 Calf DVT (deep venous thrombosis) 01/27/2014 03/25/2018 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 pylori infection 11/04/2013 03/25/20 18 Decreased libido 07/22/2013 03/25/2018 History of DVT/PE 01/12/2013 03/25/2018 Overview: - history of saddle PE in 2010 - IVC filter placed in 2011 possible in the setting of increased risk of falls while on coumadin - coumadin use complaicated by GI bleeding in the setting of supratherapeutic INR, warfarin stopped in 11/2012 - Repeat DVT involving common iliac/femoral and IVD distal to the filter in 01/2013 while off coumadin, restarted on coumadin - Currently sub therapeutic on coumadin PLAN: -Increase coumadin to 7.5 mg daily - continue coumadin for life in the setting of PE Continue to bridge with lovenox as INR subtherapeutic. 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 s/p clinical remission and now on Rituximab every 2 months , O/P oncologist Dr Ruiz - Epilepsy since , grand mal seizures s/p SEEG placement on 01/23 - 01/27 with localzation of seizure focus to the left temporal lobe, no grand mal seizures this year, follows up with Dr Xie for epilepsy, on Lacosamide, lamotrigine, keppra and clonazepam with confusion regarding his current medications - History of DVT PE, saddle PE 2010 started on coumadin c/b GI bleed in the setting of supratherapeutic INR, IVC filter placement 04/2012 in the setting of GI bleed and fall risk but continued on coumadin till 11/2012 . Recent DVT in the common iliac, femoral and IVC distal to the IVD filter in 01/2013 while off coumadin. Currently on coumadin and no bleeding episodes/ falls Who is transferred from [facility] for the further evaluation of his dizziness which started about 3 -4 days ago and is now resolved Thrombocytopenia 01/12/2013 12/28/2013 Overview: - Not acute - platelet in previous admission 141, todays labs pending - PREVIOUS ANTI PF4 negative - 4 T test score 4- intermediate probability, antiPF4 neg - could be 2/2 lamotrigine vs rituximab (althoug incidence more in RA patients) - no symptoms currently PLAN: - monitor blood counts Urgency of urination 09/10/2012 018 Frequency of urination 09/10/201203/25 Duodenitis without mention of hemorrhage 06/04/2012 03/25/2018 Drug induced neutropenia(288.03) 05/14/2012 03/25/2018 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 Breslow 5.3 mm, Yfn IV, Mitotic rate 5/ sq mm. documented as of this encounter (statuses as of 11/23/2023) [facility] Danae [facility] Note Date/Time March 02, 2025 3:25 pm [facility] Medical Records Department [address] [place] [address] Instructions for Home/Discharge Instructions 03/02/25 1328 MR#: [id number] Acct: [id number] Name: EDER BREEN Rep #:[id number] : 1955 69 From: Danae Stanton MD PCP: Dr. Hari Oneill, DO Status:AD M IN Discharge Instructions DC O2, CPAP, BIPAP needs Home O2 Discharge instructions: No Dressing / Incision Discharge Activity: Return to Normal Activity Weight Bearing Status: Weight bearing as tolerated Dressing / Incision Call your doctor if you observe: Fever of 101 or Higher, Shortness of breath, Dizziness, Swelling in the ankles and Chest pain Follow Up Care Test Results: Test results from this visit will be discussed in further detail at your follow- up appointment, if applicable. Discharge Plan Admission Admit Date/Time: 02/27/25 14:27 Primary Reason for Your Visit: abdominal distension Attending Provider: Danae Stanton Primary Care Provider: Hari Oneill Consulting Providers: Lisa Mike; Yoon Kim Instructions Patient Instructions: Abdominal Pain Discharge Orders/Prescriptions Prescriptions: Continued warfarin 7.5 mg tablet 7.5 mg PO DAILY lamotrigine [Lamictal] 200 MG tablet 200 mg PO BID zonisamide 100 MG capsule 100 mg PO BID Patient Comments: 2 tabs at lunch and 2 tabs at hs lacosamide 200 mg tablet 200 mg PO BID levothyroxine 88 mcg tablet 88 mcg PO DAILY levetiracetam 750 mg tablet 1,500 mg PO BID furosemide 40 mg tablet 20 mg PO DAILY ibuprofen 600 mg tablet 600 mg PO Q6H PRN (Reason: fever or pain) Qty: 20 0RF tamsulosin 0.4 mg capsule 0.4 mg PO QHS potassium chloride 20 mEq/15 mL liquid 10 meq PO DAILY Referrals / Follow Up: Hari Oneill DO [Primary Care Provider] - Within 1 Week Disposition Disposition (needs filled in before D/C Order can be placed): Home, Self Care 03/02/258<Electronically signed by Danae Stanton MD>Danae Stanton MD CC: Dr. Hari Oneill DO; Dr. Lisa Mike MD; Dr. Yoon Kim MD ~ Signed [facility] Work Phone: Discharge summary Author Danae Stanton [facility] Note Date/Time March 02, 2025 1:50 pm [facility] Medical Records Department [address] [place] [address] Discharge Summary 03/02/25 1329 MR#: [id number] Acct: [id number] Name: EDER BREEN Rep #:[id number] : 1955 69 From: Danae Stanton MD PCP: Dr. Hari Oneill, DO Status:AD M IN [id number] Prov[facility] Date of Admission: 02/27/25 Date of Discharge: 03/02/25 Primary Care Physician: Dr. Hari Oneill, DO Consultations 02/27/25 16:00 Consult: Gastroenterology Routine Consulting Provider: [facility] Reason for Consult: abd discomfort, diarrhea, gaseous distention of colon, ?mesenteric adenitis EMERGENT Consult: No MD Notified: Yes Date Notified: 02/27/25 Time Notified: 16:28 Method of Notification: Text 02/28/25 17:18 Consult: General Surgery Routine Consulting Provider: Yoon Kim Reason for Consult: Distended stomach, hypoactive BS, CT EMERGENT Consult: No Notified: Yes Date Notified: 02/28/25 Time Notified: 17:19 Method of Notification: Verbal Reason For Visit: HYPONATREMIA, ABDOMINAL PAIN Diagnosis Discharge Diagnosis (1) Abdominal distension: Status: Acute Code(s): R14.0 - Abdominal distension (gaseous) Plan #Abdominal distention in the setting of abdominal pain, nausea and diarrhea * Nausea and diarrhea have resolved. However he still has significantly distended abdomen. * CT of the abdomen and pelvis with gaseous distention of transverse colon without wall thickening and possible mesenteric adenitis as well as IVC filter with possible thrombosis below the filter with numerous abdominal wall collaterals. There was also a large right-sided stool burden * CT of the abdomen from 2023 also showed the distended colon. 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 Patient also liquid diet but we will hold in light of the abdominal distention. Continue gentle hydration with IV fluids. * General surgery consulted yesterday, he had a small bowel follow through which showed no evidence of obstruction. * will start on clear liquid diet and advance slowly as tolerated. * #Hyponatremia: resolved. #Hypokalemia: Potassium is 3.1. Will replace and trend. #History of seizure disorder: On lacosamide and zonisamide as well as Lamictal and Keppra. 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 On Coumadin. INR is therapeutic today. CT scan showed IVC filter with possible thrombosis below the filter withnumerous abdominal wall collaterals indicating that this likely chronic. #Hypothyroidism: On Synthroid #GERD: On PPI #DVT prophylaxis: On Coumadin and INR therapeutic. Medications at Discharge Home Medications lamotrigine 200 mg tablet (Lamictal) 200 mg PO BID SEIZURES 03/12/14 lacosamide 200 mg tablet 200 mg PO BID SEIZURES 09/17/19 zonisamide 100 mg capsule 100 mg PO BID SEIZURES 09/17/19 warfarin 7.5 mg tablet 7.5 mg PO DAILY BLOOD THINNER 09/12/21 levetiracetam 750 mg tablet 1,500 mg PO BID SEIZURES 03/11/24 levothyroxine 88 mcg tablet 88 mcg PO DAILY THYROID 03/11/24 furosemide 40 mg tablet 20 mg PO DAILY water pill 03/19/24 ibuprofen 600 mg tablet 600 mg PO Q6H PRN fever or pain #20 tabs 03/21/24 potassium chloride 20 mEq/15 mL oral liquid 10 meq PO DAILY supplement 02/27/25 tamsulosin 0.4 mg capsule 0.4 mg PO QHS prostate 02/27/25 Hospital Course Operations None Procedures None Summary of Care Provided Minutes Spent on Discharge: 45 Hospital Course: Patient is a 69-year-old male with an extensive past medical history as outlinedwas admitted to the ED on 02/27/2025 with complaint of abdominal pain and nausea and diarrhea. He said he had been drinking a lot of water and says you have a lot getting going on like that. CT of the abdomen and pelvis that showed gaseous distention of the transverse colon without wall thickening and possible mesenteric adenitis as well as IVC filter with possible thrombosis below the filter with numerous abdominal wall collaterals. Labs were significant for sodium of 121. Potassium was also 3. He was admitted and managed for abdominalpain, nausea and diarrhea as well as hyponatremia. He was hydrated with IV fluids initially kept NPO. Gastroenterology was consulted due to right-sided stool burden. CT scan. Potassium was replaced. Gastroenterology reviewed patient and was concerned about possible Kimberly syndrome. However, abdominal pain resolved and he was able to tolerate a diet. He remained stable and was discharged home on 03/02/2025. He is to follow up with his PCP within 1-2 weeks. Patient seen and examined prior to discharge. He had no acitve complaints. Review of systems is otherwise negative. Labs and vitals reviewed. Home meds reviewed and reconciled. He is to follow with gastroenterology on outpatient basis. Physical Exam Const alert, oriented x3 and no apparent distress Constitutional Narrative: Class III obesity General Appearance: cooperative and comfortable HEENT normocephalic, head/scalp atraumatic, hearing grossly normal bilaterally, moist oral mucous membranes and oropharynx normal Mouth: oral and palatal mucosa normal Eyes PERRL and EOMs intact bilaterally Neck supple and no JVD Lymph Lymphatic: no lymphedema noted Resp normal respiratory effort, normal air movement and clear to auscultation bilaterally Cardio regular rate, regular rhythm, S1 normal heart sound, S2 normal heart sound and no murmurs GI GI Narrative: abdomen moderately distended but not tender, tympanitic to percussion, no guarding or rebound tenderness. Says thats how his abdomen is. Extremity normal capillary refill and no clubbing, cyanosis or edema General Extremity: no tenderness to palpation of joints or extremities Skin General Skin Exam: no breakdown Neuro oriented x3, CN's II-XII intact bilaterally, moves all extremities and no focal motor deficits Sensorium / Orientation: awake Motor Exam: strength 5/5 throughout Psych thought process normal, cooperative and affect normal Appearance: appropriate Weight / BMI Weight Weight: 287 lb 4.197 oz Body Mass Index (BMI) 38.9 ABG / Lab / Microbiology Data 03/02/25 05:12 03/02/25 05:12 Laboratory: Laboratory Results - last 24 hr 03/02/25 05:12: WBC 6.4, RBC 3.89 L, Hgb 11.6 L, Hct 34.7 L, MCV 89.2, MCH 29.8,MCHC 33.4, RDW Std Deviation 47.9 H, RDW Coeff of Vaishnavi 14.7 H, Plt Count 192, MPV8.7, Immature Gran % (Auto) 0.300, Neut % (Auto) 64.6, Lymph % (Auto) 22.2, Saline% (Auto) 8.5, Eos % (Auto) 3.9, Baso % (Auto) 0.5, Absolute Neuts (auto) 4.2, Absolute Lymphs (auto) 1.43, Nucleated RBC % 0, PT 34.4 H, INR 3.3, Sodium 138, Potassium 3.4, Chloride 107, Carbon Dioxide 20.9 L, Anion Gap 11, BUN 6, Creatinine 0.81, Estim Creat Clear Calc 116.75, Est GFR (MDRD) Non-Af 94, BUN/Creatinine Ratio 7.0 L, Glucose 104 H, Calcium 8.8 Microbiology: Microbiology 02/27/25 20:20 Stool Enteric Bacteriology - Final 02/27/25 20:20 Stool Clostridioides difficile (PCR) - Final D/C Instructions Discharge Activity: Return to Normal Activity Weight Bearing Status: Weight bearing as tolerated Call your doctor if you observe: Fever of 101 or Higher, Shortness of breath, Dizziness, Swelling in the ankles and Chest pain DC O2, CPAP, BIPAP Needs Home O2 Discharge instructions: No DC home with Oxygen: No Meaningful Use Info Meaningful Use Meaningful Use Diagnoses (Choose all that apply): None applicable Discharge Plan Admission Admit Date/Time: 02/27/25 14:27 Primary Reason for Your Visit: abdominal distension Attending Provider: Danae Stanton Primary Care Provider: Hari Oneill Consulting Providers: Lisa Mike; Yoon Kim Instructions Patient Instructions: Abdominal Pain Discharge Orders/Prescriptions Prescriptions: Continued warfarin 7.5 mg tablet 7.5 mg PO DAILY lamotrigine [Lamictal] 200 MG tablet 200 mg PO BID zonisamide 100 MG capsule 100 mg PO BID Patient Comments: 2 tabs at lunch and 2 tabs at hs lacosamide 200 mg tablet 200 mg PO BID levothyroxine 88 mcg tablet 88 mcg PO DAILY levetiracetam 750 mg tablet 1,500 mg PO BID furosemide 40 mg tablet 20 mg PO DAILY ibuprofen 600 mg tablet 600 mg PO Q6H PRN (Reason: fever or pain) Qty: 20 0RF tamsulosin 0.4 mg capsule 0.4 mg PO QHS potassium chloride 20 mEq/15 mL liquid 10 meq PO DAILY Referrals / Follow Up: Hari Oneill DO [Primary Care Provider] - 03/04/25 1:40 am (Appointment is with Dr. Beatriz Moncada in [place]. Needs to arrive by 1:25 PM for 1:40 PMappointment) Luis A Singh DO [Med Staff - Active Staff] - Within 2 Weeks Disposition Disposition (needs filled in before D/C Order can be placed): Home, Self Care Charges/Coding Visit Charges Inpatient E&M: 83721 Disch Hosp >30min 03/02/25 1350 <Electronically signed by Danae Stanton MD> Cosigner Signature (if applicable): CC: Dr. Hari Oneill DO; Dr. Danae Stanton MD~ Signed [facility] Work Phone: Evaluation note* Diagnosis halfway current use of anticoagulant therapy Long-term (current) use of anticoagulants Other pulmonary embolism without acute cor pulmonale, unspecified chronicity (HCC) [facility]* Diagnosis Dark stools Nonspecific abnormal finding in stool contents Diarrhea, unspecified type [facility]* Diagnosis Functional diarrhea- Primary Morbid obesity (HCC) Morbid obesity [facility]* Diagnosis Partial epilepsy, with intractable epilepsy, pharmacoresistant (HCC)- Primary Localization-related (focal) (partial) epilepsy and epileptic syndromes with simple partial seizures, with intractable epilepsy [facility]* Diagnosis Hypothyroidism, acquired Unspecified hypothyroidism [facility]* Diagnosis Bloating- Primary Flatulence, eructation, and gas pain Diarrhea, unspecified type Weight gain Abnormal weight gain Urinary frequency halfway current use of anticoagulant therapy Long-term (current) use of anticoagulants Abnormal biliary HIDA scan Nonspecific abnormal results of other specified function study Hypothyroidism, acquired Unspecified hypothyroidism Anxiety and depression Dysthymic disorder Appetite increase Polyphagia [facility]* Diagnosis Onset Date Resolution Status Abnormal biliary HIDA scan a cute Eating disorder acute Cholelithiasis with chronic cholecystitis chronic [facility] Work Phone: Evaluation note* Diagnosis Functional diarrhea- Primary Fat malabsorption Other specified intestinal malabsorption [facility]* Diagnosis Diarrhea, unspecified type- Primary Bloating Flatulence, eructation, and gas pain Weight gain Abnormal weight gain [facility]* Diagnosis Visit for suture removal- Primary Encounter for removal of sutures Visit for wound check Encounter for other specified aftercare [facility]* Diagnosis Heartburn- Primary Functional diarrhea Fat malabsorption Other specified intestinal malabsorption [facility]* Diagnosis halfway current use of anticoagulant therapy Long-term (current) use of anticoagulants Other pulmonary embolism without acute cor pulmonale, unspecified chronicity (HCC) [facility] Diagnosis Partial epilepsy, with intractable epilepsy, 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, with intractable epilepsy [facility] Diagnosis Dark stools Nonspecific abnormal finding in stool contents Diarrhea, unspecified type [facility] Diagnosis Dark stools Nonspecific abnormal finding in stool contents Diarrhea, unspecified type [facility] Diagnosis Diarrhea, unspecified type- Primary [facility] Diagnosis Partial epilepsy, with intractable epilepsy, 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, with intractable epilepsy [facility] Diagnosis Gastroesophageal reflux disease without esophagitis- Primary Esophageal reflux Generalized abdominal pain Abdominal pain, generalized [facility] Diagnosis Hypothyroidism, acquired Unspecified hypothyroidism Dysthymia Dysthymic disorder [facility]* Diagnosis Diarrhea, unspecified type- Primary [facility] Diagnosis Diarrhea, unspecified type- Primary Need for pneumococcal vaccination Need for prophylactic vaccination against streptococcus pneumoniae (pneumococcus) Hypothyroidism, acquired Unspecified hypothyroidism Bloating Flatulence, eructation, and gas pain Vitamin D deficiency Unspecified vitamin D deficiency Vitamin B12 deficiency Other B-complex deficiencies Advance care planning Other specified counseling Dysthymia Dysthymic disorder Lactose intolerance Intestinal disaccharidase deficiencies and disaccharide malabsorption [facility]* Diagnosis Partial epilepsy, with intractable epilepsy, pharmacoresistant (HCC)- Primary Localization-related (focal) (partial) epilepsy and epileptic syndromes with simple partial seizures, with intractable epilepsy [facility]* Diagnosis halfway current use of anticoagulant therapy Long-term (current) use of anticoagulants Other pulmonary embolism without acute cor pulmonale, unspecified chronicity (HCC) [facility]* Diagnosis halfway current use of anticoagulant therapy Long-term (current) use of anticoagulants Other pulmonary embolism without acute cor pulmonale, unspecified chronicity (HCC) [facility]* Diagnosis History of pulmonary embolus (PE) Personal history of pulmonary embolism [facility]* Diagnosis Elevated fecal calprotectin- Primary [facility]* Diagnosis halfway current use of anticoagulant therapy Long-term (current) use of anticoagulants Other pulmonary embolism without acute cor pulmonale, unspecified chronicity (HCC) [facility]* Diagnosis long term care pharmacist current use of anticoagulant therapy- Primary Long-term (current) use of anticoagulants History of pulmonary embolus (PE) Personal history of pulmonary embolism Hypoglycemia Hypoglycemia, unspecified Appetite increase Polyphagia Hypothyroidism, acquired Unspecified hypothyroidism [facility]* Diagnosis Hypothyroidism, acquired- Primary Unspecified hypothyroidism Bloating Flatulence, eructation, and gas pain Vitamin D deficiency Unspecified vitamin D deficiency Vitamin B12 deficiency Other B-complex deficiencies Eating disorder, unspecified type Dysthymia Dysthymic disorder Lactose intolerance Intestinal disaccharidase deficiencies and disaccharide malabsorption Dyslipidemia Other and unspecified hyperlipidemia [facility]* Diagnosis Dysthymia Dysthymic disorder [facility]* Diagnosis Increased appetite- Primary Polyphagia Medication management Encounter for long-term (current) use of other medications [facility]* Diagnosis Weight gain- Primary Abnormal weight gain Increased appetite Polyphagia Obesity, Class II, BMI 35-39.9 Obesity, unspecified Hypertension, unspecified type Dyslipidemia Other and unspecified hyperlipidemia [facility]* Diagnosis Bilateral leg edema Edema [facility]* Diagnosis Diarrhea, unspecified type- Primary [facility]* Diagnosis Small intestinal bacterial overgrowth- Primary Other specified disorder of intestines [facility]* Diagnosis Increased appetite- Primary Polyphagia Weight gain Abnormal weight gain Obesity, Class II, BMI 35-39.9 Obesity, unspecified Hypertension, unspecified type Dyslipidemia Other and unspecified hyperlipidemia Dietary counseling Dietary surveillance and counseling [facility]* Diagnosis Hypothyroidism, acquired- Primary Unspecified hypothyroidism History of pulmonary embolus (PE) Personal history of pulmonary embolism long term care pharmacist current use of anticoagulant therapy Long-term (current) use of anticoagulants Dyslipidemia Other and unspecified hyperlipidemia IFG (impaired fasting glucose) Impaired fasting glucose Screening for prostate cancer Special screening for malignant neoplasm of prostate Diffuse large B-cell lymphoma, unspecified body region (HCC) Morbid obesity (HCC) Morbid obesity Major depressive disorder, single episode, in full remission (HCC) Major depressive disorder, single episode in full remission Partial epilepsy, with intractable epilepsy, 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, with intractable epilepsy Eating disorder, unspecified type Bilateral leg edema Edema [facility] Diagnosis Partial epilepsy, with intractable epilepsy, 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, with intractable epilepsy [facility] Diagnosis Increased appetite- Primary Polyphagia Weight gain Abnormal weight gain Obesity, Class I, BMI 30-34.9 Obesity, unspecified Hypertension, unspecified type Dyslipidemia Other and unspecified hyperlipidemia Dietary counseling Dietary surveillance and counseling [facility]* Diagnosis Pain- Primary Generalized pain [facility] Diagnosis Partial epilepsy, with intractable epilepsy, 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, with intractable epilepsy [facility] Diagnosis Partial epilepsy, with intractable epilepsy, pharmacoresistant (HCC)- Primary Localization-related (focal) (partial) epilepsy and epileptic syndromes with simple partial seizures, with intractable epilepsy Seizure (HCC) Other convulsions Chronic anticoagulation Long-term (current) use of anticoagulants long term care pharmacist current use of anticoagulant therapy Long-term (current) use of anticoagulants Other pulmonary embolism without acute cor pulmonale, unspecified chronicity (HCC) Bilateral leg pain Pain in limb Frequent urination at night Nocturia Poor diet Unspecified nutritional deficiency Weight gain Abnormal weight gain Obesity, Class II, BMI 35-39.9 Obesity, unspecified 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) [facility] Diagnosis Chronic anticoagulation- Primary Long-term (current) use of anticoagulants halfway current use of anticoagulant therapy Long-term (current) use of anticoagulants Other pulmonary embolism without acute cor pulmonale, unspecified chronicity (HCC) [facility] Diagnosis halfway current use of anticoagulant therapy Long-term (current) use of anticoagulants Other pulmonary embolism without acute cor pulmonale, unspecified chronicity (HCC) [facility]* Diagnosis Partial epilepsy, with intractable epilepsy, 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, with intractable epilepsy [facility]* Diagnosis Hypothyroidism, acquired- Primary Unspecified hypothyroidism Bilateral leg pain Pain in limb halfway current use of anticoagulant therapy Long-term (current) use of anticoagulants Other pulmonary embolism without acute cor pulmonale, unspecified chronicity (HCC) Chronic anticoagulation Long-term (current) use of anticoagulants Partial epilepsy, with intractable epilepsy, 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, with intractable epilepsy Obesity, Class II, BMI 35-39.9 Obesity, unspecified [facility]* Diagnosis IFG (impaired fasting glucose)- Primary Impaired fasting glucose Polydipsia Dysthymia Dysthymic disorder Chronic anticoagulation Long-term (current) use of anticoagulants 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) Hypothyroidism, acquired Unspecified hypothyroidism Obesity, Class II, BMI 35-39.9 Obesity, unspecified Partial epilepsy, with intractable epilepsy, 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, with intractable epilepsy Poor diet Unspecified nutritional deficiency Weight gain Abnormal weight gain Dyslipidemia Other and unspecified hyperlipidemia [facility]* Diagnosis Bilateral leg pain Pain in limb [facility]* Diagnosis Hypothyroidism, acquired Unspecified hypothyroidism [facility]* Diagnosis Partial epilepsy, with intractable epilepsy, 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, with intractable epilepsy [facility]* Diagnosis Partial epilepsy, with intractable epilepsy, pharmacoresistant (HCC)- Primary Localization-related (focal) (partial) epilepsy and epileptic syndromes with simple partial seizures, with intractable epilepsy [facility]* Diagnosis Partial epilepsy, with intractable epilepsy, pharmacoresistant (HCC)- Primary Localization-related (focal) (partial) epilepsy and epileptic syndromes with simple partial seizures, with intractable epilepsy [facility] Diagnosis Dysthymia Dysthymic disorder [facility]* Diagnosis Hypothyroidism, acquired- Primary Unspecified hypothyroidism [facility]* Diagnosis Leg wound, right, initial encounter- Primary Avulsion of toenail of left foot Bleeding from wound Secondary and recurrent hemorrhage as an early complication of trauma Diffuse large B-cell lymphoma, unspecified body region (HCC) Major depressive disorder, single episode, in full remission (HCC) Major depressive disorder, single episode in full remission Morbid obesity (HCC) Morbid obesity IFG (impaired fasting glucose) Impaired fasting glucose Hypothyroidism, acquired Unspecified hypothyroidism Dysthymia Dysthymic disorder Partial epilepsy, with intractable epilepsy, 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, with intractable epilepsy [facility] Diagnosis Avulsion of toenail of left foot- Primary Avulsion of toenail of right foot Wound of right lower extremity, subsequent encounter Onychomycosis Dermatophytosis of nail Bilateral leg edema Edema [facility] Diagnosis Wound of right lower extremity, subsequent encounter- Primary Wound of left lower extremity, initial encounter [facility] Diagnosis Bilateral leg pain Pain in limb [facility] Diagnosis Newly recognized heart murmur- Primary Undiagnosed cardiac murmurs Diarrhea, unspecified type [facility] Diagnosis Gross hematuria- Primary Iron deficiency anemia due to chronic blood loss Iron deficiency anemia secondary to blood loss (chronic) Hypokalemia Hypopotassemia Generalized weakness Other malaise and fatigue [facility] Diagnosis Pre-operative examination- Primary Preoperative examination, unspecified Colon cancer screening Special screening for malignant neoplasms, colon Partial epilepsy, with intractable epilepsy, 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, 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) Essential hypertension Unspecified essential hypertension WILBERTO (obstructive sleep apnea) Obstructive sleep apnea (adult) (pediatric) Gastroesophageal reflux disease without esophagitis Esophageal reflux Benign prostatic hyperplasia with urinary frequency Diffuse large B-cell lymphoma, unspecified body region (HCC) Basal cell carcinoma (BCC), unspecified site Melanoma of right side of neck (HCC) Pain Generalized pain [facility]* Diagnosis Pre-operative examination- Primary Preoperative examination, unspecified Colon cancer screening Special screening for malignant neoplasms, colon Partial epilepsy, with intractable epilepsy, 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, 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) Essential hypertension Unspecified essential hypertension WILBERTO (obstructive sleep apnea) Obstructive sleep apnea (adult) (pediatric) Gastroesophageal reflux disease without esophagitis Esophageal reflux Benign prostatic hyperplasia with urinary frequency Diffuse large B-cell lymphoma, unspecified body region (HCC) Basal cell carcinoma (BCC), unspecified site Melanoma of right side of neck (HCC) Newly recognized heart murmur Undiagnosed cardiac murmurs [facility]* Diagnosis Pre-operative examination- Primary Preoperative examination, unspecified Colon cancer screening Special screening for malignant neoplasms, colon Partial epilepsy, with intractable epilepsy, 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, 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) Essential hypertension Unspecified essential hypertension WILBERTO (obstructive sleep apnea) Obstructive sleep apnea (adult) (pediatric) Gastroesophageal reflux disease without esophagitis Esophageal reflux Benign prostatic hyperplasia with urinary frequency Diffuse large B-cell lymphoma, unspecified body region (HCC) Basal cell carcinoma (BCC), unspecified site Melanoma of right side of neck (HCC) DVT (deep vein thrombosis) in - Primary Deep phlebothrombosis, antepartum, unspecified as to episode of care History of DVT (deep vein thrombosis) Personal history of venous thrombosis and embolism Hypokalemia Hypopotassemia [facility]* Diagnosis Pre-operative examination- Primary Preoperative examination, unspecified Colon cancer screening Special screening for malignant neoplasms, colon Partial epilepsy, with intractable epilepsy, 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, 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) Essential hypertension Unspecified essential hypertension WILBERTO (obstructive sleep apnea) Obstructive sleep apnea (adult) (pediatric) Gastroesophageal reflux disease without esophagitis Esophageal reflux Benign prostatic hyperplasia with urinary frequency Diffuse large B-cell lymphoma, unspecified body region (HCC) Basal cell carcinoma (BCC), unspecified site Melanoma of right side of neck (HCC) Cough [facility] Diagnosis Pre-operative examination- Primary Preoperative examination, unspecified Colon cancer screening Special screening for malignant neoplasms, colon Partial epilepsy, with intractable epilepsy, 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, 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) Essential hypertension Unspecified essential hypertension WILBERTO (obstructive sleep apnea) Obstructive sleep apnea (adult) (pediatric) Gastroesophageal reflux disease without esophagitis Esophageal reflux Benign prostatic hyperplasia with urinary frequency Diffuse large B-cell lymphoma, unspecified body region (HCC) Basal cell carcinoma (BCC), unspecified site Melanoma of right side of neck (HCC) Fever, unspecified fever cause documented in this encounter [facility] note* Diagnosis Pre-operative examination- Primary Preoperative examination, unspecified Colon cancer screening Special screening for malignant neoplasms, colon Partial epilepsy, with intractable epilepsy, 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, 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) Essential hypertension Unspecified essential hypertension WILBERTO (obstructive sleep apnea) Obstructive sleep apnea (adult) (pediatric) Gastroesophageal reflux disease without esophagitis Esophageal reflux Benign prostatic hyperplasia with urinary frequency Diffuse large B-cell lymphoma, unspecified body region (HCC) Basal cell carcinoma (BCC), unspecified site Melanoma of right side of neck (HCC) S/P IVC filter- Primary Other postprocedural status Other acute pulmonary embolism without acute cor pulmonale (HCC) documented in this encounter [facility] note* Diagnosis Pre-operative examination- Primary Preoperative examination, unspecified Colon cancer screening Special screening for malignant neoplasms, colon Partial epilepsy, with intractable epilepsy, 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, 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) Essential hypertension Unspecified essential hypertension WILBERTO (obstructive sleep apnea) Obstructive sleep apnea (adult) (pediatric) Gastroesophageal reflux disease without esophagitis Esophageal reflux Benign prostatic hyperplasia with urinary frequency Diffuse large B-cell lymphoma, unspecified body region (HCC) Basal cell carcinoma (BCC), unspecified site Melanoma of right side of neck (HCC) Acute pain of right shoulder [facility]* Diagnosis Pre-operative examination- Primary Preoperative examination, unspecified Colon cancer screening Special screening for malignant neoplasms, colon Partial epilepsy, with intractable epilepsy, 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, 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) Essential hypertension Unspecified essential hypertension WILBERTO (obstructive sleep apnea) Obstructive sleep apnea (adult) (pediatric) Gastroesophageal reflux disease without esophagitis Esophageal reflux Benign prostatic hyperplasia with urinary frequency Diffuse large B-cell lymphoma, unspecified body region (HCC) Basal cell carcinoma (BCC), unspecified site Melanoma of right side of neck (HCC) Partial epilepsy, with intractable epilepsy, pharmacoresistant (HCC)- Primary Localization-related (focal) (partial) epilepsy and epileptic syndromes with simple partial seizures, with intractable epilepsy documented in this encounter [facility] note* Diagnosis Pre-operative examination- Primary Preoperative examination, unspecified Colon cancer screening Special screening for malignant neoplasms, colon Partial epilepsy, with intractable epilepsy, 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, 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) Essential hypertension Unspecified essential hypertension WILBERTO (obstructive sleep apnea) Obstructive sleep apnea (adult) (pediatric) Gastroesophageal reflux disease without esophagitis Esophageal reflux Benign prostatic hyperplasia with urinary frequency Diffuse large B-cell lymphoma, unspecified body region (HCC) Basal cell carcinoma (BCC), unspecified site Melanoma of right side of neck (HCC) History of pulmonary embolus (PE)- Primary Personal history of pulmonary embolism long term care pharmacist current use of anticoagulant therapy Long-term (current) use of anticoagulants Other pulmonary embolism without acute cor pulmonale, unspecified chronicity (HCC) documented in this encounter [facility] note* Diagnosis Pre-operative examination- Primary Preoperative examination, unspecified Colon cancer screening Special screening for malignant neoplasms, colon Partial epilepsy, with intractable epilepsy, 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, 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) Essential hypertension Unspecified essential hypertension WILBERTO (obstructive sleep apnea) Obstructive sleep apnea (adult) (pediatric) Gastroesophageal reflux disease without esophagitis Esophageal reflux Benign prostatic hyperplasia with urinary frequency Diffuse large B-cell lymphoma, unspecified body region (HCC) Basal cell carcinoma (BCC), unspecified site Melanoma of right side of neck (HCC) Partial epilepsy, with intractable epilepsy, 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, with intractable epilepsy [facility] Diagnosis Pre-operative examination- Primary Preoperative examination, unspecified Colon cancer screening Special screening for malignant neoplasms, colon Partial epilepsy, with intractable epilepsy, 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, 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) Essential hypertension Unspecified essential hypertension WILBERTO (obstructive sleep apnea) Obstructive sleep apnea (adult) (pediatric) Gastroesophageal reflux disease without esophagitis Esophageal reflux Benign prostatic hyperplasia with urinary frequency Diffuse large B-cell lymphoma, unspecified body region (HCC) Basal cell carcinoma (BCC), unspecified site Melanoma of right side of neck (HCC) Procedure not carried out- Primary Procedure not carried out for other reasons [facility]* Diagnosis Pre-operative examination- Primary Preoperative examination, unspecified Colon cancer screening Special screening for malignant neoplasms, colon Partial epilepsy, with intractable epilepsy, 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, 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) Essential hypertension Unspecified essential hypertension WIL[place] (obstructive sleep apnea) Obstructive sleep apnea (adult) (pediatric) Gastroesophageal reflux disease without esophagitis Esophageal reflux Benign prostatic hyperplasia with urinary frequency Diffuse large B-cell lymphoma, unspecified body region (HCC) Basal cell carcinoma (BCC), unspecified site Melanoma of right side of neck (HCC) Cellulitis of lower extremity, unspecified laterality- Primary Bilateral leg edema Edema [facility]* Diagnosis Pre-operative examination- Primary Preoperative examination, unspecified Colon cancer screening Special screening for malignant neoplasms, colon Partial epilepsy, with intractable epilepsy, 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, 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) Essential hypertension Unspecified essential hypertension WILBERTO (obstructive sleep apnea) Obstructive sleep apnea (adult) (pediatric) Gastroesophageal reflux disease without esophagitis Esophageal reflux Benign prostatic hyperplasia with urinary frequency Diffuse large B-cell lymphoma, unspecified body region (HCC) Basal cell carcinoma (BCC), unspecified site Melanoma of right side of neck (HCC) Cellulitis of lower extremity, unspecified laterality- Primary Bilateral leg edema Edema [facility]* Diagnosis Pre-operative examination- Primary Preoperative examination, unspecified Colon cancer screening Special screening for malignant neoplasms, colon Partial epilepsy, with intractable epilepsy, 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, 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) Essential hypertension Unspecified essential hypertension WILBERTO (obstructive sleep apnea) Obstructive sleep apnea (adult) (pediatric) Gastroesophageal reflux disease without esophagitis Esophageal reflux Benign prostatic hyperplasia with urinary frequency Diffuse large B-cell lymphoma, unspecified body region (HCC) Basal cell carcinoma (BCC), unspecified site Melanoma of right side of neck (HCC) Other acute pulmonary embolism with acute cor pulmonale (HCC)- Primary Other acute pulmonary embolism without acute cor pulmonale (HCC) [facility]* Diagnosis Pre-operative examination- Primary Preoperative examination, unspecified Colon cancer screening Special screening for malignant neoplasms, colon Partial epilepsy, with intractable epilepsy, 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, 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) Essential hypertension Unspecified essential hypertension WILBERTO (obstructive sleep apnea) Obstructive sleep apnea (adult) (pediatric) Gastroesophageal reflux disease without esophagitis Esophageal reflux Benign prostatic hyperplasia with urinary frequency Diffuse large B-cell lymphoma, unspecified body region (HCC) Basal cell carcinoma (BCC), unspecified site Melanoma of right side of neck (HCC) Cellulitis of lower extremity, unspecified laterality Bilateral leg edema Edema Cellulitis of lower extremity, unspecified laterality Bilateral leg edema Edema [facility]* Diagnosis Pre-operative examination- Primary Preoperative examination, unspecified Colon cancer screening Special screening for malignant neoplasms, colon Partial epilepsy, with intractable epilepsy, 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, 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) Essential hypertension Unspecified essential hypertension WILBERTO (obstructive sleep apnea) Obstructive sleep apnea (adult) (pediatric) Gastroesophageal reflux disease without esophagitis Esophageal reflux Benign prostatic hyperplasia with urinary frequency Diffuse large B-cell lymphoma, unspecified body region (HCC) Basal cell carcinoma (BCC), unspecified site Melanoma of right side of neck (HCC) Cellulitis of lower extremity, unspecified laterality Bilateral leg edema Edema [facility]* Diagnosis Pre-operative examination- Primary Preoperative examination, unspecified Colon cancer screening Special screening for malignant neoplasms, colon Partial epilepsy, with intractable epilepsy, 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, 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) Essential hypertension Unspecified essential hypertension WILBERTO (obstructive sleep apnea) Obstructive sleep apnea (adult) (pediatric) Gastroesophageal reflux disease without esophagitis Esophageal reflux Benign prostatic hyperplasia with urinary frequency Diffuse large B-cell lymphoma, unspecified body region (HCC) Basal cell carcinoma (BCC), unspecified site Melanoma of right side of neck (HCC) Dysthymia Dysthymic disorder [facility]* Diagnosis Pre-operative examination- Primary Preoperative examination, unspecified Colon cancer screening Special screening for malignant neoplasms, colon Partial epilepsy, with intractable epilepsy, 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, 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) Essential hypertension Unspecified essential hypertension WILBERTO (obstructive sleep apnea) Obstructive sleep apnea (adult) (pediatric) Gastroesophageal reflux disease without esophagitis Esophageal reflux Benign prostatic hyperplasia with urinary frequency Diffuse large B-cell lymphoma, unspecified body region (HCC) Basal cell carcinoma (BCC), unspecified site Melanoma of right side of neck (HCC) Frequent urination at night- Primary [place] long term care pharmacist current use of anticoagulant therapy Long-term (current) use of anticoagulants History of pulmonary embolus (PE) Personal history of pulmonary embolism Nausea Nausea alone Weight gain Abnormal weight gain Overeating Polyphagia Frequent bowel movements Other symptoms involving digestive system Bilateral leg edema Edema Bilateral leg pain Pain in limb [facility]* Diagnosis Pre-operative examination- Primary Preoperative examination, unspecified Colon cancer screening Special screening for malignant neoplasms, colon Partial epilepsy, with intractable epilepsy, 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, 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) Essential hypertension Unspecified essential hypertension WILBERTO (obstructive sleep apnea) Obstructive sleep apnea (adult) (pediatric) Gastroesophageal reflux disease without esophagitis Esophageal reflux Benign prostatic hyperplasia with urinary frequency Diffuse large B-cell lymphoma, unspecified body region (HCC) Basal cell carcinoma (BCC), unspecified site Melanoma of right side of neck (HCC) Nausea Nausea alone Weight gain Abnormal weight gain Overeating Polyphagia Frequent bowel movements Other symptoms involving digestive system [facility] Diagnosis Pre-operative examination- Primary Preoperative examination, unspecified Colon cancer screening Special screening for malignant neoplasms, colon Partial epilepsy, with intractable epilepsy, 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, 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) Essential hypertension Unspecified essential hypertension WILBERTO (obstructive sleep apnea) Obstructive sleep apnea (adult) (pediatric) Gastroesophageal reflux disease without esophagitis Esophageal reflux Benign prostatic hyperplasia with urinary frequency Diffuse large B-cell lymphoma, unspecified body region (HCC) Basal cell carcinoma (BCC), unspecified site Melanoma of right side of neck (HCC) Calculus of gallbladder without cholecystitis without obstruction Calculus of gallbladder without mention of cholecystitis or obstruction Nausea Nausea alone Frequent bowel movements Other symptoms involving digestive system Abdominal fullness Other symptoms involving abdomen and pelvis Abdominal bloating Flatulence, eructation, and gas pain Early satiety [facility] Diagnosis Pre-operative examination- Primary Preoperative examination, unspecified Colon cancer screening Special screening for malignant neoplasms, colon Partial epilepsy, with intractable epilepsy, 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, 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) Essential hypertension Unspecified essential hypertension WILBERTO (obstructive sleep apnea) Obstructive sleep apnea (adult) (pediatric) Gastroesophageal reflux disease without esophagitis Esophageal reflux Benign prostatic hyperplasia with urinary frequency Diffuse large B-cell lymphoma, unspecified body region (HCC) Basal cell carcinoma (BCC), unspecified site Melanoma of right side of neck (HCC) Dietary counseling- Primary Dietary surveillance and counseling Nausea Nausea alone Weight gain Abnormal weight gain Overeating Polyphagia Frequent bowel movements Other symptoms involving digestive system [facility]* Diagnosis Pre-operative examination- Primary Preoperative examination, unspecified Colon cancer screening Special screening for malignant neoplasms, colon Partial epilepsy, with intractable epilepsy, 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, 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) Essential hypertension Unspecified essential hypertension WILBERTO (obstructive sleep apnea) Obstructive sleep apnea (adult) (pediatric) Gastroesophageal reflux disease without esophagitis Esophageal reflux Benign prostatic hyperplasia with urinary frequency Diffuse large B-cell lymphoma, unspecified body region (HCC) Basal cell carcinoma (BCC), unspecified site Melanoma of right side of neck (HCC) Calculus of gallbladder without cholecystitis without obstruction- Primary Calculus of gallbladder without mention of cholecystitis or obstruction Nausea Nausea alone Abdominal fullness Other symptoms involving abdomen and pelvis Abdominal bloating Flatulence, eructation, and gas pain Early satiety [facility] Diagnosis Pre-operative examination- Primary Preoperative examination, unspecified Colon cancer screening Special screening for malignant neoplasms, colon Partial epilepsy, with intractable epilepsy, 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, 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) Essential hypertension Unspecified essential hypertension WILBERTO (obstructive sleep apnea) Obstructive sleep apnea (adult) (pediatric) Gastroesophageal reflux disease without esophagitis Esophageal reflux Benign prostatic hyperplasia with urinary frequency Diffuse large B-cell lymphoma, unspecified body region (HCC) Basal cell carcinoma (BCC), unspecified site Melanoma of right side of neck (HCC) History of pulmonary embolus (PE)- Primary Personal history of pulmonary embolism [facility] Diagnosis Pre-operative examination- Primary Preoperative examination, unspecified Colon cancer screening Special screening for malignant neoplasms, colon Partial epilepsy, with intractable epilepsy, 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, 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) Essential hypertension Unspecified essential hypertension WILBERTO (obstructive sleep apnea) Obstructive sleep apnea (adult) (pediatric) Gastroesophageal reflux disease without esophagitis Esophageal reflux Benign prostatic hyperplasia with urinary frequency Diffuse large B-cell lymphoma, unspecified body region (HCC) Basal cell carcinoma (BCC), unspecified site Melanoma of right side of neck (HCC) Calculus of gallbladder without cholecystitis without obstruction- Primary Calculus of gallbladder without mention of cholecystitis or obstruction Nausea Nausea alone Frequent bowel movements Other symptoms involving digestive system Abdominal fullness Other symptoms involving abdomen and pelvis Abdominal bloating Flatulence, eructation, and gas pain Early satiety [facility]* Diagnosis Pre-operative examination- Primary Preoperative examination, unspecified Colon cancer screening Special screening for malignant neoplasms, colon Partial epilepsy, with intractable epilepsy, 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, 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) Essential hypertension Unspecified essential hypertension WILBERTO (obstructive sleep apnea) Obstructive sleep apnea (adult) (pediatric) Gastroesophageal reflux disease without esophagitis Esophageal reflux Benign prostatic hyperplasia with urinary frequency Diffuse large B-cell lymphoma, unspecified body region (HCC) Basal cell carcinoma (BCC), unspecified site Melanoma of right side of neck (HCC) Diarrhea, unspecified type- Primary Calculus of gallbladder without cholecystitis without obstruction Calculus of gallbladder without mention of cholecystitis or obstruction Nausea Nausea alone Abdominal fullness Other symptoms involving abdomen and pelvis Abdominal bloating Flatulence, eructation, and gas pain Early satiety documented in this encounter [facility] note* Diagnosis Pre-operative examination- Primary Preoperative examination, unspecified Colon cancer screening Special screening for malignant neoplasms, colon Partial epilepsy, with intractable epilepsy, 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, 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) Essential hypertension Unspecified essential hypertension WILBERTO (obstructive sleep apnea) Obstructive sleep apnea (adult) (pediatric) Gastroesophageal reflux disease without esophagitis Esophageal reflux Benign prostatic hyperplasia with urinary frequency Diffuse large B-cell lymphoma, unspecified body region (HCC) Basal cell carcinoma (BCC), unspecified site Melanoma of right side of neck (HCC) 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 Bilateral leg edema Edema Bilateral leg pain Pain in limb [facility] Diagnosis Pre-operative examination- Primary Preoperative examination, unspecified Colon cancer screening Special screening for malignant neoplasms, colon Partial epilepsy, with intractable epilepsy, 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, 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) Essential hypertension Unspecified essential hypertension WILBERTO (obstructive sleep apnea) Obstructive sleep apnea (adult) (pediatric) Gastroesophageal reflux disease without esophagitis Esophageal reflux Benign prostatic hyperplasia with urinary frequency Diffuse large B-cell lymphoma, unspecified body region (HCC) Basal cell carcinoma (BCC), unspecified site Melanoma of right side of neck (HCC) Nausea- Primary Nausea alone Abdominal bloating Flatulence, eructation, and gas pain Abdominal fullness Other symptoms involving abdomen and pelvis Early satiety Diarrhea, unspecified type [facility] Diagnosis Pre-operative examination- Primary Preoperative examination, unspecified Colon cancer screening Special screening for malignant neoplasms, colon Partial epilepsy, with intractable epilepsy, 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, 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) Essential hypertension Unspecified essential hypertension WILBERTO (obstructive sleep apnea) Obstructive sleep apnea (adult) (pediatric) Gastroesophageal reflux disease without esophagitis Esophageal reflux Benign prostatic hyperplasia with urinary frequency Diffuse large B-cell lymphoma, unspecified body region (HCC) Basal cell carcinoma (BCC), unspecified site Melanoma of right side of neck (HCC) Encounter for screening colonoscopy- Primary Special screening for malignant neoplasms, colon Calculus of gallbladder without cholecystitis without obstruction Calculus of gallbladder without mention of cholecystitis or obstruction Nausea Nausea alone Abdominal fullness Other symptoms involving abdomen and pelvis Abdominal bloating Flatulence, eructation, and gas pain Early satiety Diarrhea, unspecified type [facility] Diagnosis Pre-operative examination- Primary Preoperative examination, unspecified Colon cancer screening Special screening for malignant neoplasms, colon Partial epilepsy, with intractable epilepsy, 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, 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) Essential hypertension Unspecified essential hypertension WILBERTO (obstructive sleep apnea) Obstructive sleep apnea (adult) (pediatric) Gastroesophageal reflux disease without esophagitis Esophageal reflux Benign prostatic hyperplasia with urinary frequency Diffuse large B-cell lymphoma, unspecified body region (HCC) Basal cell carcinoma (BCC), unspecified site Melanoma of right side of neck (HCC) Nausea Nausea alone Abdominal bloating Flatulence, eructation, and gas pain Abdominal fullness Other symptoms involving abdomen and pelvis Early satiety Diarrhea, unspecified type [facility]* Diagnosis Pre-operative examination- Primary Preoperative examination, unspecified Colon cancer screening Special screening for malignant neoplasms, colon Partial epilepsy, with intractable epilepsy, 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, 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) Essential hypertension Unspecified essential hypertension WILBERTO (obstructive sleep apnea) Obstructive sleep apnea (adult) (pediatric) Gastroesophageal reflux disease without esophagitis Esophageal reflux Benign prostatic hyperplasia with urinary frequency Diffuse large B-cell lymphoma, unspecified body region (HCC) Basal cell carcinoma (BCC), unspecified site Melanoma of right side of neck (HCC) Gastroesophageal reflux disease without esophagitis- Primary Esophageal reflux Gastritis without bleeding, unspecified chronicity, unspecified gastritis type documented in this encounter [facility] note* Diagnosis Pre-operative examination- Primary Preoperative examination, unspecified Colon cancer screening Special screening for malignant neoplasms, colon Partial epilepsy, with intractable epilepsy, 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, 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) Essential hypertension Unspecified essential hypertension WILBERTO (obstructive sleep apnea) Obstructive sleep apnea (adult) (pediatric) Gastroesophageal reflux disease without esophagitis Esophageal reflux Benign prostatic hyperplasia with urinary frequency Diffuse large B-cell lymphoma, unspecified body region (HCC) Basal cell carcinoma (BCC), unspecified site Melanoma of right side of neck (HCC) Venous stasis dermatitis of both lower extremities- Primary Polydipsia Polyuria Hyperglycemia Other abnormal glucose Hypothyroidism, acquired Unspecified hypothyroidism Other acute pulmonary embolism with acute cor pulmonale (HCC) Frequent bowel movements Other symptoms involving digestive system Nausea Nausea alone Abdominal fullness Other symptoms involving abdomen and pelvis Calculus of gallbladder without cholecystitis without obstruction Calculus of gallbladder without mention of cholecystitis or obstruction halfway current use of anticoagulant therapy Long-term (current) use of anticoagulants Focal epilepsy with impairment of consciousness, intractable (HCC) Localization-related (focal) (partial) epilepsy and epileptic syndromes with simple partial seizures, with intractable epilepsy [facility] Diagnosis Pre-operative examination- Primary Preoperative examination, unspecified Colon cancer screening Special screening for malignant neoplasms, colon Partial epilepsy, with intractable epilepsy, 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, 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) Essential hypertension Unspecified essential hypertension WILBERTO (obstructive sleep apnea) Obstructive sleep apnea (adult) (pediatric) Gastroesophageal reflux disease without esophagitis Esophageal reflux Benign prostatic hyperplasia with urinary frequency Diffuse large B-cell lymphoma, unspecified body region (HCC) Basal cell carcinoma (BCC), unspecified site Melanoma of right side of neck (HCC) Hypothyroidism, acquired Unspecified hypothyroidism documented in this encounter [facility] note* Diagnosis Pre-operative examination- Primary Preoperative examination, unspecified Colon cancer screening Special screening for malignant neoplasms, colon Partial epilepsy, with intractable epilepsy, 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, 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) Essential hypertension Unspecified essential hypertension WILBERTO (obstructive sleep apnea) Obstructive sleep apnea (adult) (pediatric) Gastroesophageal reflux disease without esophagitis Esophageal reflux Benign prostatic hyperplasia with urinary frequency Diffuse large B-cell lymphoma, unspecified body region (HCC) Basal cell carcinoma (BCC), unspecified site Melanoma of right side of neck (HCC) Hypothyroidism, acquired Unspecified hypothyroidism documented in this encounter [facility] note* Diagnosis Pre-operative examination- Primary Preoperative examination, unspecified Colon cancer screening Special screening for malignant neoplasms, colon Partial epilepsy, with intractable epilepsy, 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, 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) Essential hypertension Unspecified essential hypertension WILBERTO (obstructive sleep apnea) Obstructive sleep apnea (adult) (pediatric) Gastroesophageal reflux disease without esophagitis Esophageal reflux Benign prostatic hyperplasia with urinary frequency Diffuse large B-cell lymphoma, unspecified body region (HCC) Basal cell carcinoma (BCC), unspecified site Melanoma of right side of neck (HCC) Partial epilepsy, with intractable epilepsy, 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, with intractable epilepsy documented in this encounter [facility] note* Diagnosis Pre-operative examination- Primary Preoperative examination, unspecified Colon cancer screening Special screening for malignant neoplasms, colon Partial epilepsy, with intractable epilepsy, 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, 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) Essential hypertension Unspecified essential hypertension WILBERTO (obstructive sleep apnea) Obstructive sleep apnea (adult) (pediatric) Gastroesophageal reflux disease without esophagitis Esophageal reflux Benign prostatic hyperplasia with urinary frequency Diffuse large B-cell lymphoma, unspecified body region (HCC) Basal cell carcinoma (BCC), unspecified site Melanoma of right side of neck (HCC) Cellulitis of lower extremity, unspecified laterality Bilateral leg edema Edema [facility]* Diagnosis Pre-operative examination- Primary Preoperative examination, unspecified Colon cancer screening Special screening for malignant neoplasms, colon Partial epilepsy, with intractable epilepsy, 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, 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) Essential hypertension Unspecified essential hypertension WILBERTO (obstructive sleep apnea) Obstructive sleep apnea (adult) (pediatric) Gastroesophageal reflux disease without esophagitis Esophageal reflux Benign prostatic hyperplasia with urinary frequency Diffuse large B-cell lymphoma, unspecified body region (HCC) Basal cell carcinoma (BCC), unspecified site Melanoma of right side of neck (HCC) Hypothyroidism, acquired Unspecified hypothyroidism documented in this encounter [facility] note* Diagnosis Pre-operative examination- Primary Preoperative examination, unspecified Colon cancer screening Special screening for malignant neoplasms, colon Partial epilepsy, with intractable epilepsy, 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, 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) Essential hypertension Unspecified essential hypertension WILBERTO (obstructive sleep apnea) Obstructive sleep apnea (adult) (pediatric) Gastroesophageal reflux disease without esophagitis Esophageal reflux Benign prostatic hyperplasia with urinary frequency Diffuse large B-cell lymphoma, unspecified body region (HCC) Basal cell carcinoma (BCC), unspecified site Melanoma of right side of neck (HCC) Melena Blood in stool Polyuria long term care pharmacist (current) use of anticoagulants Long-term (current) use of anticoagulants [facility]* Diagnosis Onset Date Resolution Status Admit Date Abdominal pain acute February 27, 2025 2:27pm Hypokalemia acute February 27, 20 25 2:27pm Hyponatremia acute February 27, 2 025 2:27pm [facility] Work Phone: Evaluation note* Diagnosis Pre-operative examination- Primary Preoperative examination, unspecified Colon cancer screening Special screening for malignant neoplasms, colon Partial epilepsy, with intractable epilepsy, 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, 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) Essential hypertension Unspecified essential hypertension WILBERTO (obstructive sleep apnea) Obstructive sleep apnea (adult) (pediatric) Gastroesophageal reflux disease without esophagitis Esophageal reflux Benign prostatic hyperplasia with urinary frequency Diffuse large B-cell lymphoma, unspecified body region (HCC) Basal cell carcinoma (BCC), unspecified site Melanoma of right side of neck (HCC) halfway current use of anticoagulant therapy Long-term (current) use of anticoagulants Other pulmonary embolism without acute cor pulmonale, unspecified chronicity (HCC) [facility]* Diagnosis Pre-operative examination- Primary Preoperative examination, unspecified Colon cancer screening Special screening for malignant neoplasms, colon Partial epilepsy, with intractable epilepsy, 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, 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) Essential hypertension Unspecified essential hypertension WILBERTO (obstructive sleep apnea) Obstructive sleep apnea (adult) (pediatric) Gastroesophageal reflux disease without esophagitis Esophageal reflux Benign prostatic hyperplasia with urinary frequency Diffuse large B-cell lymphoma, unspecified body region (HCC) Basal cell carcinoma (BCC), unspecified site 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 Abdominal distention Flatulence, eructation, and gas pain Nausea Nausea alone Diarrhea, unspecified type Hyponatremia Hyposmolality and/or hyponatremia Hypokalemia Hypopotassemia Presence of IVC filter Other postprocedural status Thrombosis Embolism and thrombosis of unspecified site Polyuria Polydipsia Polyphagia Food insecurity documented in this encounter [facility] note* Diagnosis Pre-operative examination- Primary Preoperative examination, unspecified Colon cancer screening Special screening for malignant neoplasms, colon Partial epilepsy, with intractable epilepsy, 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, 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) Essential hypertension Unspecified essential hypertension WILBERTO (obstructive sleep apnea) Obstructive sleep apnea (adult) (pediatric) Gastroesophageal reflux disease without esophagitis Esophageal reflux Benign prostatic hyperplasia with urinary frequency Diffuse large B-cell lymphoma, unspecified body region (HCC) Basal cell carcinoma (BCC), unspecified site Melanoma of right side of neck (HCC) Chronic pseudo-obstruction of colon- Primary Bilateral leg edema Edema Venous stasis dermatitis of both lower extremities Hypokalemia Hypopotassemia Hyponatremia Hyposmolality and/or hyponatremia Hypophosphataemia ARNDT (dyspnea on exertion) Other dyspnea and respiratory abnormality Borderline low oxygen saturation level Abnormal arterial blood gases Fatigue, unspecified type History of pulmonary embolus (PE) Personal history of pulmonary embolism 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) Major depressive disorder, recurrent, moderate (HCC) Major depressive disorder, recurrent episode, moderate Anticoagulation management encounter Encounter for therapeutic drug monitoring ARNDT (dyspnea on exertion) Other dyspnea and respiratory abnormality Borderline low oxygen saturation level Abnormal arterial blood gases Fatigue, unspecified type [facility] Diagnosis Pre-operative examination- Primary Preoperative examination, unspecified Colon cancer screening Special screening for malignant neoplasms, colon Partial epilepsy, with intractable epilepsy, 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, 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) Essential hypertension Unspecified essential hypertension WILBERTO (obstructive sleep apnea) Obstructive sleep apnea (adult) (pediatric) Gastroesophageal reflux disease without esophagitis Esophageal reflux Benign prostatic hyperplasia with urinary frequency Diffuse large B-cell lymphoma, unspecified body region (HCC) Basal cell carcinoma (BCC), unspecified site Melanoma of right side of neck (HCC) ARNDT (dyspnea on exertion) Other dyspnea and respiratory abnormality Borderline low oxygen saturation level Abnormal arterial blood gases Fatigue, unspecified type [facility]* Diagnosis Pre-operative examination- Primary Preoperative examination, unspecified Colon cancer screening Special screening for malignant neoplasms, colon Partial epilepsy, with intractable epilepsy, 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, 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) Essential hypertension Unspecified essential hypertension WILBERTO (obstructive sleep apnea) Obstructive sleep apnea (adult) (pediatric) Gastroesophageal reflux disease without esophagitis Esophageal reflux Benign prostatic hyperplasia with urinary frequency Diffuse large B-cell lymphoma, unspecified body region (HCC) Basal cell carcinoma (BCC), unspecified site Melanoma of right side of neck (HCC) History of pulmonary embolus (PE)- Primary Personal history of pulmonary embolism 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 Hari Oneill, DO Status:RE G ER Location: ED HPI - General General Date of Admission: 02/27/25 Date of Service: 02/27/25 Chief Complaint: Abdominal pain, nausea, diarrhea HPI Narrative EDER BREEN, is a 69-year-old male history of DVT, seizure disorder, hypothyroidism, depression, GERD, lower extremity edema presented [facility] ED 02/27/2025 with left lower quadrant abdominal pain that he woke up with this morning and nausea. Also had several bouts of diarrhea. No fever or sick contacts. Has been drinking a lot of water and then after he urinates will feel like he needs to keep drinking. He is unsure how long this has been going on. In the ED temp 97.3, heart rate 86 and blood pressure 167/76. Respiratory rate 25 and pulse ox 97% on room air. CBC with white bloodcell count of 8.3, hemoglobin 11, INR 2.5, sodium of 121, no values since March2024 when his sodium was 135, potassium of 3. Kidney function normal and liver function within normal limits. UA does not appear infectious. Beta hydroxybutyrate negative and VBG with a pH of 7.38, bicarb of 21 and total CO2 of 22. CT abdomen and pelvis with gaseous distention of transverse colon without wall thickening, possibly mesenteric adenitis as well as IVC filter withpossible thrombosis below the filter with numerous abdominal wall collaterals. Hospitalist contacted for admission. Patient evaluated bedside. He reports hisdiarrhea has been going on for a while however abdominal pain and nausea startedthis morning, abdominal pain may be slightly better in the ED but still feeling nauseous though no emesis. Denies any fevers at home, has chronic swelling in lower extremities but ROS otherwise negative. of of note patient reported to me that he has been drinking a lot of water but he denied excessive thirst or recent medication changes and said he is trying to drink more water so that he remains full so he does not eat as much. [facility] Medical History Loss of one eye Wears glasses Cancer Thyroid disease Arthritis Prostate disease Bladder disease Low iron High cholesterol Diarrhea Gastric reflux Non-smoker History of pain when walking Heart murmur Localized swelling of both lower legs Abnormal biliary HIDA scan Anxiety and depression HTN (hypertension) History of DVT of lower extremity Seizure disorder Home Medications ?Medication ?Instructions ?Recorded ?Last Taken ?Type lamotrigine 200 mg tablet 200 mg PO BID SEIZURES 03/1203/21/24 History (Lamictal) lacosamide 200 mg tablet 200 mg PO BID SEIZURES 09/1703/10/24 History zonisamide 100 mg capsule 300 mg PO BID SEIZURES 09/1703/20/24 History warfarin 7.5 mg tablet 7.5 mg PO DAILY BLOOD THINNE R 09/12/21 03/16/24 History Held on 03/21/24. Instructions: Resume on 04/04/24. fluoxetine 40 mg capsule 40 mg PO DAILY DEPRESSION 03/10/24 History levetiracetam 750 mg tablet 1,500 mg PO BID SEIZURES 0 03/11/24 03/21/24 History levothyroxine 88 mcg tablet 75 mcg PO DAILY THYROID 03/21/24 History potassium chloride 20 mEq/15 mL 20 meq (15 mL) PO BID #450 mL 03/11/24 Unknown Rx oral liquid cyanocobalamin-liver extract tablet 1 tab PO DAILY Unknown History ferrous fumarate 55 mg (18 mg 18 mg PO DAILY 03/19/24 Unknown History iron) tablet,extended release furosemide 40 mg tablet 40 mg PO DAILY 03/19/24 Unkn own History pantoprazole 40 mg tablet,delayed 40 mg PO DAILY 03/19 Unknown History release (Protonix) ibuprofen 600 mg tablet 600 mg PO Q6H PRN fever or p ain 03/21/24 Unknown Rx #20 tabs Allergy/AdvReac Type Severity Reaction Status Date / Time No Known Allergies Allergy Verified 02/27/25 09:55 Surgical History Hx of colonoscopy History of vascular access device Hx of vascular surgery Hx of left cataract extraction Social History household members: spouse Smoking Status: Never smoker ROS ROS Narrative General: Denies fever/chills HENT: Denies headache, denies stuffy nose, denies sore throat EYES: Denies changes in vision Resp: Denies cough, denies shortness of breath Cardiac: Denies chest pain GI: Some abdominal pain mostly in left lower quadrant, has had frequent diarrhearecently but usually suffers from constipation, some nausea with no emesis : Denies changes in urination Extremity: Chronic lower extremity swelling MSK: Denies weakness Neuro: Denies any numbness/tingling Heme: Denies any bleeding or bruising Skin: Denies rashes Psychiatric: No complaints voiced Vital Signs Vital Signs Vital Signs: 02/27/25 09:56 02/27/25 11:50 02/27/25 13:00 Temperature 97.3 F L Temperature Source Temporal Pulse Rate 86 71 70 Respiratory Rate 25 H 17 Blood Pressure 167/76 H 142/72 H 154/78 H Blood Pressure Mean 106 95 103 Pulse Ox 97 97 98 Oxygen Delivery Method Room Air Room Air Room Air Weight Weight: 133.2 kg Body Mass Index (BMI) 39.8 Physical Exam Narrative General: Alert, oriented, no apparent distress HEENT: Atraumatic, normocephalic Eyes: Keeps right eye closed, left eye no acute abnormalities appreciated Neck: Supple Respiratory: No significant wheezes or rhonchi, normal respiratory effort Cardiovascular: Regular rate and rhythm GI: Distended, did not seem to be having pain on palpation and no rebound, guarding, rigidity Extremities: 1+ lower extremity edema with chronic changes Musculoskeletal: Moving all extremities Neuro: No overt focal neurological deficits Skin: Chronic lower extremity changes Psych: Cooperative Results Lab / Micro Data 02/27/25 10:15 02/27/25 10:15 Labs: Laboratory Results - last 24 hr 02/27/25 10:15: WBC 8.3, RBC 3.77 L, Hgb 11.0 L, Hct 32.5 L, MCV 86.2, MCH 29.2,MCHC 33.8, RDW Std Deviation 43.1, RDW Coeff of Vaishnavi 13.8, Plt Count 193, MPV 8.9, Immature Gran % (Auto) 0.600, Neut % (Auto) 71.4 H, Lymph % (Auto) 16.7 L, Saline % (Auto) 9.2, Eos % (Auto) 1.9, Baso % (Auto) 0.2, Absolute Neuts (auto) 5.9, Absolute Lymphs (auto) 1.39, Nucleated RBC % 0, PT 27.7 H, INR 2.5, Sodium 121 L, Potassium 3.0 L, Chloride 89 L, Carbon Dioxide 19.7 L, Anion Gap 12, BUN 15, Creatinine 0.81, Estim Creat Clear Calc 118.12, Est GFR (MDRD) Non-Af 94, BUN/Creatinine Ratio 18.2, Glucose 100 H, Lactic Acid 1.4, Calcium 8.0, Total Bilirubin 0.38, AST 29, ALT 24, Alkaline Phosphatase 113, Total Protein 6.1, Albumin 3.8, Globulin 2.3, Albumin/Globulin Ratio 1.6, b-Hydroxybutyric mmol/L 0.1 02/27/25 11:09: Urine Color Yellow, Urine Clarity Clear, Urine pH 7.0, Ur Specific [place] 1.010, Urine Protein 15 H, Urine Glucose (UA) Normal, Urine Ketones Negative, Urine Occult Blood Negative, Urine Nitrite Negative, Urine Bilirubin Negative, Urine Urobilinogen Normal, Ur Leukocyte Esterase Negative, Urine RBC 0 SEEN, Urine WBC 0 SEEN, Ur Squamous Epith Cells 0 SEEN, Urine Bacteria 0 SEEN, Urine Mucus 0 SEEN ABG Data ABG results: ABG 02/27/25 11:34 Specimen Type SAIGE Sample Site Not entered VBG pH 7.38 VBG pO2 55 H VBG HCO3 21 L VBG Total CO2 22 L VBG O2 Sat (Calc) 88 H VBG Base Excess -5 L POC Mix VBG pCO2 Pt Tmp 34.8 L O2 Delivery Device Not entered Imaging Radiology Impression Abdomen/Pelvis CT 02/27/25 13:15 IMPRESSION: 1. Gallstone 2. Gaseous distention of the transverse colon without wall thickening, pneumatosis or site of obstruction. No change. 3. 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 No lymphadenopathy. This can be seen with mesenteric adenitis. 4. IVC filter in place. Possible thrombosis of the IVC below the filter with numerous abdominal wall collaterals. Reading Location: [id number] Assessment & Plan Assessment/Plan (1) Hyponatremia: (2) Abdominal pain: (3) Hypokalemia: PLAN: Plan # Abdominal pain/nausea/diarrhea -CT abdomen and pelvis with gaseous distention of transverse colon without wall thickening, possibly mesenteric adenitis as well as IVC filter with possible thrombosis below the filter with numerous abdominal wall collaterals -Patient appears to have large right-sided stool burden but not on the left, unclear etiology, also queried mesenteric adenitis -CT scan from 2023 also showed the distended colon, unclear etiology -Will stool studies -IV fluids -Antiemetics and supportive care -Full liquid diet, advance as tolerated -Check TSH - Will consult GI given the distention with right sided stool burden but not on left the chronic diarrhea and possible mesenteric adenitis # Hyponatremia of uncertain chronicity -Sodium of 121, no values for the past 1 year so unclear how long this has been going on -Patient does note increased thirst and drinking in excess amount of water -It is also possible that this could be related to one of his antiepileptics or antidepressants -IV fluids as above -Trend BMPs -Serum osmole's -Urine studies -Will hold fluoxetine at this time #Hypokalemia -Replace -Repeat in the AM #Seizure disorder -Has Lamictal, lacosamide, zonisamide, and Keppra listed on home med list, patient unsure which she is taking, awaiting med rec update -Continue home regimen # History of DVT with IVC filter -Appears to be on Coumadin, therapeutic with an INR of 2.5 -Will continue Coumadin once med rec up-to-date -IVC filter with possible thrombosis below the filter with numerous abdominal wall collaterals #Depression/anxiety -Med rec not updated it appears previously was on Prozac, holding home antidepressant given patient's hyponatremia pending further workup, may need to switch agents prior to discharge but this will depend on further workup and clinical course - Will need to verify with patient's home meds are for final recs #Hypothyroidism -Continue Synthroid #GERD -Continue PPI #DVT ppx: Patient therapeutic on Coumadin, not indicated Lisa Mike MD Charges/Coding Visit Charges Inpatient E&M: 40335 Init Hosp L2 02/27/25 1439 <Electronically signed by Lisa Mike MD> Cosigner Signature (if applicable): CC: Dr. Hari Oneill, DO; Dr. Lisa Mike MD~ Signed [facility] Work Phone: [facility] Dis[facility] Work Phone: Hospital Discharge instructionsAdditional Instructions Date of Discharge: 03/12/25[facility] Work Phone: Reason for referral (narrative)* Outpatient Procedure (Routine) - Authorized Specialty Diagnoses / Procedures Referred By Contac t Referred To Contact [facility] Diagnoses Diarrhea, unspecified type Procedures BREATH TEST GLUCOSE BREATH HYDROGEN/METHANE TEST Shanda Lainez APRN.CNP [address] [place] [address] [facility] Disease [address] [address] Referral ID Status Reason Start Date Expiration Date Visits Requested Visits Authorized [id number] Authorized Auto-Generat ed Referral 05/09/2022 05/09/2023 1 1 [facility] for referral (narrative)* Outpatient Procedure (Urgent) - Authorized Specialty Diagnoses / Procedures Referred By Contac t Referred To Contact [facility] Diagnoses Pain Procedures US LEG VEIN DVT UNL VAS LAB DUP-SCAN XTR VEINS UNILATERAL/LIMITED STUDY Aurora Sweet APRN.CNP [address] [place] [address] [address] Referral ID Status Reason Start Date Expiration Date Visits Requested Visits Authorized [id number] Authorized Auto-Generat ed Referral 02/13/2023 02/13/2024 1 1 * Diagnostic Procedure Only (Urgent) - Closed Specialty Diagnoses / Procedures Referred By Contac t Referred To Contact XR IMAGING Diagnoses Pain Procedures XR ANKLE GENERAL 3V AP/LAT/OBL RIGHT RADEX ANKLE COMPLETE MINIMUM 3 VIEWS Aurora Sweet APRN.PRODUCTION EXPERT [address] [place] [address] X[facility] Imaging Referral ID Status Reason Start Date Expiration Date V isits Requested Visits Authorized [id number] Closed Auto-Generate d Referral 02/13/2023 03/14/2024 1 1 * Diagnostic Procedure Only (Urgent) - Closed Specialty Diagnoses / Procedures Referred By Contac t Referred To Contact XR IMAGING Diagnoses Pain Procedures XR KNEE GENERAL 4V AP BOTH/PA BOTH/LAT/MERC RIGHT RADIOLOGIC EXAM KNEE COMPLETE 4/MORE VIEWS Aurora Sweet APRN.PRODUCTION EXPERT [address] [place] [address] Xr Imaging Referral ID Status Reason Start Date Expiration Date V isits Requested Visits Authorized [id number] Closed Auto-Generate d Referral 02/13/2023 03/14/2024 1 1 [facility] for referral (narrative)* Outpatient Procedure (Routine) - Authorized Specialty Diagnoses / Procedures Referred By Contac t Referred To [facility] Diagnoses Newly recognized heart murmur Procedures ECHO ECHO TTHRC R-T 2D W/WOM-MODE COMPL SPEC&COLR D Pio Mcclelland PA-C [address] [place] [address] [facility] [address] [place] [address] Referral ID Status Reason Start Date Expiration Date Visits Requested Visits Authorized [id number] Authorized Auto-Generat ed Referral 03/25/2024 05/24/2024 1 1 [facility] for referral (narrative)* Diagnostic Procedure Only (Urgent) - Closed Specialty Diagnoses / Procedures Referred By Contac t Referred To Contact XR IMAGING Diagnoses Pain Procedures XR ANKLE GENERAL 3V AP/LAT/OBL RIGHT RADEX ANKLE COMPLETE MINIMUM 3 VIEWS Aurora Sweet APRN.PRODUCTION EXPERT [address] [place] [address] [place] [address] Referral ID Status Reason Start Date Expiration Date V isits Requested Visits Authorized [id number] Closed Auto-Generate d Referral 02/13/2023 03/14/2024 1 1 * Diagnostic Procedure Only (Urgent) - Closed Specialty Diagnoses / Procedures Referred By Contac t Referred To Contact XR IMAGING Diagnoses Pain Procedures XR KNEE GENERAL 4V AP BOTH/PA BOTH/LAT/MERC RIGHT RADIOLOGIC EXAM KNEE COMPLETE 4/MORE VIEWS Aurora Sweet APRN.PRODUCTION EXPERT [address] [place] [address] [place] [address] Referral ID Status Reason Start Date Expiration Date V isits Requested Visits Authorized [id number] Closed Auto-Generate d Referral 02/13/2023 03/14/2024 1 1 [facility] for referral (narrative)* Outpatient Procedure (Urgent) - New Request Specialty Diagnoses / Procedures Referred By Contac t Referred To [facility] Diagnoses Cellulitis of lower extremity, unspecified laterality Bilateral leg edema Procedures US LEG VEIN DVT ANGEL LUIS VAS LAB DUP-SCAN XTR VEINS COMPLETE BILATERAL STUDY Suyapa Lira APRN.PRODUCTION EXPERT [address] [place] [address] [facility] [address] [facility] [place] [address] Referral ID Status Reason Start Date Expiration Date Visits Requested Visits Authorized [id number] New Request Auto-Generat ed Referral 06/10/2024 06/10/2025 1 1 * Diagnostic Procedure Only (Urgent) - Closed Specialty Diagnoses / Procedures Referred By Julio C ramirez Referred To Contact US IMAGING Diagnoses Cellulitis of lower extremity, unspecified laterality Bilateral leg edema Procedures US DVT LOWER BILATERAL DUP-SCAN XTR VEINS COMPLETE BILATERAL STUDY Suyapa Lira APRN.PRODUCTION EXPERT [address] [place] [address] [place] [address] Referral ID Status Reason Start Date Expiration Date V isits Requested Visits Authorized [id number] Closed Auto-Generate d Referral 06/10/2024 07/10/2025 1 1 [facility] for referral (narrative)* Diagnostic Procedure Only (Urgent) - Closed Specialty Diagnoses / Procedures Referred By Julio C ramirez Referred To Contact [facility] IM[facility] Diagnoses Cellulitis of lower extremity, unspecified laterality Bilateral leg edema Procedures US DVT LOWER BILATERAL DUP-SCAN XTR VEINS COMPLETE BILATERAL STUDY Suyapa Lira APRN.PRODUCTION EXPERT [address] [place] [address] [place] [address] Referral ID Status Reason Start Date Expiration Date V isits Requested Visits Authorized [id number] Closed Auto-Generate d Referral 06/10/2024 07/10/2025 1 1 [facility] for referral (narrative)* Outpatient Procedure (Routine) - Authorized Specialty Diagnoses / Procedures Referred By Julio C t Referred To [facility] Diagnoses Bilateral leg edema Bilateral leg pain Procedures PVR ANK PRESS ANGEL LUIS VAS LAB NON-INVAS PHYSIOLOGIC STD EXTREMITY ART 2 LEVEL Suyapa Lira APRN.PRODUCTION EXPERT [address] [place] [address] [facility] [address] [place] [address] Referral ID Status Reason Start Date Expiration Date Visits Requested Visits Authorized [id number] Authorized Auto-Generat ed Referral 4 07/24/2025 1 1 * Consult, Test, Treat (Routine) - Authorized Specialty Diagnoses / Procedures Referred By Contac t Referred To Contact Vascular Surgery Diagnoses Bilateral leg edema Bilateral leg pain Procedures CONSULT TO VASCULAR SURGERY OFFICE/OUTPATIENT [facility] 60 MINUTES Suyapa Lira APRN.PRODUCTION EXPERT [address] [place] [id number] Referral ID Status Reason Start Date Expiration Date Visits Requested Visits Authorized [id number] Authorized PCP Requested Referral 4 07/24/2025 1 1 * Consult, Test, Treat (Routine) - Authorized Specialty Diagnoses / Procedures Referred By Contac t Referred To Contact Nutrition Diagnoses Nausea Weight gain Overeating Frequent bowel movements Procedures CONSULT TO NUTRITION THERAPY MEDICAL NUTRITION ASSMT&IVNTJ INDIV EACH 15 AR Suyapa Lira APRN.PRODUCTION EXPERT [address] [place] [address] Referral ID Status Reason Start Date Expiration Date Visits Requested Visits Authorized [id number] Authorized PCP Requested Referral 4 07/24/2025 1 4 * Diagnostic Procedure Only (Routine) - Authorized Specialty Diagnoses / Procedures Referred By Contac t Referred To Contact [facility] Diagnoses Nausea Weight gain Overeating Frequent bowel movements Procedures NM HEPATOBILIARY W EF AND/OR RX HEPATOBIL SYST IMAG INC GB W/PHARMA INTERVENJ Suyapa Lira APRN.PRODUCTION EXPERT [address] [place] [address] [facility] [address] [place], [place] [id number] Referral ID Status Reason Start Date Expiration Date Visits Requested Visits Authorized [id number] Authorized Auto-Generat ed Referral 4 08/23/2025 1 1 * Diagnostic Procedure Only (Routine) - Authorized Specialty Diagnoses / Procedures Referred By Contac t Referred To Contact [facility] Diagnoses Nausea Weight gain Overeating Frequent bowel movements Procedures US ABD RIGHT UPPER QUADRANT US ABDOMINAL REAL TIME W/IMAGE LIMITED Suyapa Lira APRN.CNP [address] [place] [address] [place] [address] Referral ID Status Reason Start Date Expiration Date Visits Requested Visits Authorized [id number] Authorized Auto-Generat ed Referral 4 08/23/2025 [facility] Procedure (Routine) - Pending Review Specialty Diagnoses / Procedures Referred By Contac t Referred To Contact [facility] Diagnoses Nausea Abdominal fullness Abdominal bloating Early satiety Diarrhea, unspecified type Procedures COLONOSCOPY DIAGNOSTIC COLONOSCOPY FLX DX W/COLLJ SPEC WHEN PFRMD Jayesh Hernandez MD [address] [place] [address] [facility] [place] [id number] Referral ID Status Reason Start Date Expiration Date Visits Requested Visits Authorized [id number] Pending Review Auto-Generat ed Referral 08/29/2024 08/29/2025 1 1 * Outpatient Procedure (Routine) - Pending Review Specialty Diagnoses / Procedures Referred By Contac t Referred To Contact [facility] Diagnoses Calculus of gallbladder without cholecystitis without obstruction Nausea Abdominal fullness Abdominal bloating Early satiety Procedures EGD DIAGNOSTIC ESOPHAGOGASTRODUODENOSCOP Y TRANSORAL DIAGNOSTIC Jayesh Hernandez MD [address] [place] [address] [facility] [address] [address] Referral ID Status Reason Start Date Expiration Date Visits Requested Visits Authorized [id number] Pending Review Auto-Generat ed Referral 08/29/2024 08/29/2025 1 1 [facility] for referral (narrative)No reason for referral information availableWAshtabula [facility] Work Phone: Reason for visit Narrative* Diagnostic Procedure Only (Urgent) - Closed Specialty Diagnoses / Procedures Referred By Contac t Referred To Contact XR IMAGING Diagnoses Pain Procedures XR ANKLE GENERAL 3V AP/LAT/OBL RIGHT RADEX ANKLE COMPLETE MINIMUM 3 VIEWS Aurora Sweet, 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 [address] [place] [address] [place] [address] Referral ID Status Reason Start Date Expiration Date V isits Requested Visits Authorized [id number] Closed Auto-Generate d Referral 02/13/2023 03/14/2024 1 1 [facility] for visit Narrative* Outpatient Procedure (Routine) - Closed Specialty Diagnoses / Procedures Referred By Contac t Referred To Contact [facility] Diagnoses Newly recognized heart murmur Procedures ECHO ECHO TTHRC R-T 2D W/WOM-MODE COMPL SPEC&COLR D Pio Mcclelland PA-C [address] [place] [address] [facility] [address] [place] [address] Referral ID Status Reason Start Date Expiration Date V isits Requested Visits Authorized [id number] Closed Auto-Generate d Referral 03/25/2024 05/24/2024 1 1 [facility] for visit Narrative* Diagnostic Procedure Only (Urgent) - Closed Specialty Diagnoses / Procedures Referred By Contac t Referred To Contact [facility] IMAG[facility] Diagnoses Cellulitis of lower extremity, unspecified laterality Bilateral leg edema Procedures US DVT LOWER BILATERAL DUP-SCAN XTR VEINS COMPLETE BILATERAL STUDY Suyapa Lira, 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 [address] [place] [address] [place] [address] Referral ID Status Reason Start Date Expiration Date V isits Requested Visits Authorized [id number] Closed Auto-Generate d Referral 06/10/2024 07/10/2025 1 1 [facility] for visit Narrative* Diagnostic Procedure Only (Routine) - Closed Specialty Diagnoses / Procedures Referred By Contac t Referred To Contact [facility] Diagnoses Nausea Weight gain Overeating Frequent bowel movements Procedures US ABD RIGHT UPPER QUADRANT US ABDOMINAL REAL TIME W/IMAGE LIMITED Suyapa Lira 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 [address] [place] [address] [place] [address] Referral ID Status Reason Start Date Expiration Date V isits Requested Visits Authorized [id number] Closed Auto-Generate d Referral 07/24/2024 08/23/2025 1 1 [facility] for visit Narrative* Outpatient Procedure (Routine) - Closed Specialty Diagnoses / Procedures Referred By Lesaac t Referred To Contact [facility] Diagnoses Nausea Abdominal fullness Abdominal bloating Early satiety Diarrhea, unspecified type Procedures COLONOSCOPY DIAGNOSTIC COLONOSCOPY FLX DX W/COLLJ SPEC WHEN Jayesh Robbins MD [address] [place] [address] Phone: tel: fax: [facility] [address] [place] [address] Referral ID Status Reason Start Date Expiration Date V isits Requested Visits Authorized [id number] Closed Auto-Generate d Referral 09/29/2024 12/27/2024 1 1 [facility] for visit Narrative* Outpatient Procedure (Routine) - Closed Specialty Diagnoses / Procedures [facility] Diagnoses Nausea Abdominal bloating Abdominal fullness Early satiety Diarrhea, unspecified type Procedures EGD DIAGNOSTIC ESOPHAGOGASTRODUODENOSC OPY TRANSORAL DIAGNOSTIC Bere Hays APRN.PRODUCTION EXPERT [address] [place] [address] Phone: tel: fax: Marjan Tariq MD [address] [place] [address] Phone: tel: fax: Referral ID Status Reason Start Date Expiration Date V isits Requested Visits Authorized [id number] Closed Auto-Generate d Referral 09/30/2024 12/28/2024 1 1 [facility] Advance Directives No Advanced Directives Records FoundDocuments on File Type Date Recorded 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 Advance Directive(s) 03/25/2018 5:32 PM Date Activated Date Inactivated Comments 04/19/2023 8:50 AM 04/23/2023 6:04 PM Question Answer Comments Full Code Order Discussed With: Patient Date Activated Date Inactivated Comments 09/28/2020 4:20 AM 09/29/2020 9:15 PM Question Answer Comments Full Code Order Discussed With: Patient Date Activated Date Inactivated Comments 09/14/2020 8:38 PM 09/18/2020 7:29 PM Question Answer Comments Full Code Order Discussed With: Patient Date Activated Date Inactivated Comments 09/14/2020 8:38 PM 09/14/2020 8:38 PM Question Answer Comments Full Code Order Discussed With: Patient Latest Code Status on File Code Status Date Activated Date Inactivated Comments Full Code 09/28/2020 4:20 AM 09/29/2020 9:15 PM Full Code Order Discussed With: Patient Full Code 09/14/2020 8:38 PM 09/18/2020 7:29 PM Full Code 09/14/2020 8:38 PM 09/14/2020 8:38 PM Documents on File Type Date Recorded 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 Advance Directive(s) 05/03/2021 10:01 AM Advance Directive(s) 04/04/2021 12:28 PM Advance Directive(s) 09/28/2020 3:42 PM Advance Directive(s) 09/27/2020 6:43 PM Advance Directive(s) 09/15/2020 6:28 PM Advance Directive(s) 09/14/2020 9:47 AM Advance Directive(s) 08/17/2018 11:50 AM Advance Directive(s) 03/25/2018 3:26 PM Advance Directive(s) 03/25/2018 5:32 PM Advance Directive(s) 02/15/2018 6:00 AM Advance Directive(s) 11/13/2016 7:38 AM Documents on File Type Date Recorded 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 Advance Directive(s) 05/03/2021 10:01 AM Advance Directive(s) 04/04/2021 12:28 PM Advance Directive(s) 09/28/2020 3:42 PM Advance Directive(s) 09/27/2020 6:43 PM Advance Directive(s) 09/15/2020 6:28 PM Advance Directive(s) 09/14/2020 9:47 AM Advance Directive(s) 08/17/2018 11:50 AM Advance Directive(s) 03/25/2018 3:26 PM Advance Directive(s) 03/25/2018 5:32 PM Advance Directive(s) 02/15/2018 6:00 AM Advance Directive(s) 11/13/2016 7:38 AM Latest Code Status on File Code Status Date Activated Date Inactivated Comments Full Code 09/28/2020 4:20 AM 09/29/2020 9:15 PM Full Code 09/14/2020 8:38 PM 09/18/2020 7:29 PM Full Code 09/14/2020 8:38 PM 09/14/2020 8:38 PM Advance Directive Response Recorded Date/ Time Advance Directives No May 06, 2014 9:39am Living Will No December 08, 2021 8: 37pm Power of Manager Retail No December 08, 2021 8:37pm Documents on File Type Date Recorded 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 Advance Directive(s) 03/25/2018 5:32 PM Latest Code Status on File Code Status Date Activated Date Inactivated Comments Full Code 09/28/2020 4:20 AM 09/29/2020 9:15 PM Question Answer Comments Full Code Order Discussed With: Patient Code Status History Code Status Date Activated Date Inactivated Comments Full Code 09/14/2020 8:38 PM 09/18/2020 7:29 PM Question Answer Comments Full Code Order Discussed With: Patient Full Code 09/14/2020 8:38 PM 09/14/2020 8:38 PM Question Answer Comments Full Code Order Discussed With: Patient Latest Code Status on File Code Status Date Activated Date Inactivated Comments Full Code 09/28/2020 4:20 AM 09/29/2020 9:15 PM Question Answer Comments Full Code Order Discussed With: Patient Code Status History Code Status Date Activated Date Inactivated Comments Full Code 09/14/2020 8:38 PM 09/18/2020 7:29 PM Question Answer Comments Full Code Order Discussed With: Patient Full Code 09/14/2020 8:38 PM 09/14/2020 8:38 PM Question Answer Comments Full Code Order Discussed With: Patient Latest Code Status on File Code Status Date Activated Date Inactivated Comments Full Code 04/19/2023 8:50 AM Question Answer Comments Full Code Order Discussed With: Patient Code Status History Code Status Date Activated Date Inactivated Comments Full Code 09/28/2020 4:20 AM 09/29/2020 9:15 PM Question Answer Comments Full Code Order Discussed With: Patient Full Code 09/14/2020 8:38 PM 09/18/2020 7:29 PM Question Answer Comments Full Code Order Discussed With: Patient Full Code 09/14/2020 8:38 PM 09/14/2020 8:38 PM Question Answer Comments Full Code Order Discussed With: Patient Latest Code Status on File Code Status Date Activated Date Inactivated Comments Full Code 04/19/2023 8:50 AM 04/23/2023 6:04 PM Question Answer Comments Full Code Order Discussed With: Patient Date Activated Date Inactivated Comments 04/19/2023 8:50 AM 04/23/2023 6:04 PM Question Answer Comments Full Code Order Discussed With: Patient Date Activated Date Inactivated Comments 09/28/2020 4:20 AM 09/29/2020 9:15 PM Question Answer Comments Full Code Order Discussed With: Patient Date Activated Date Inactivated Comments 09/14/2020 8:38 PM 09/18/2020 7:29 PM Question Answer Comments Full Code Order Discussed With: Patient Date Activated Date Inactivated Comments 09/14/2020 8:38 PM 09/14/2020 8:38 PM Question Answer Comments Full Code Order Discussed With: Patient Advance Directive Response Recorded Date/ Time Do you have a Healthcare Power of Manager Retail? No February 27, 2025 10:03am Advance Directives No May 06, 2014 9:39am Advance Directive Response Recorded Date/ Time Do you have a Healthcare Power of Manager Retail? No February 27, 2025 4:05pm Advance Directives No May 06, 2014 9:39am Advance Directive Response Recorded Date/ Time Do you have a Healthcare Power of Manager Retail? No February 27, 2025 4:05pm Do you have a Healthcare Power of Manager Retail? No March 05, 2025 11:45am Advance Directives No May 06, 2014 9:39am Advance Directive Response Recorded Date/ Time Do you have a Healthcare Power of Manager Retail? No February 27, 2025 4:05pm Do you have a Healthcare Power of Manager Retail? No March 06, 2025 5:10pm Advance Directives No May 06, 2014 9:39am Reason for Referral Specialty Diagnoses / Procedures Referred By Contac t Referred To Contact Diagnoses Morbid obesity (HCC) Procedures CONSULT BARIATRIC/METABOLIC INSTITUTE OFFICE/OUTPATIENT [facility] 60-74 MINUTES Pepito Chan MD [address] [place] [address] Referral ID Status Reason Start Date Expiration Date Visits Requested Visits Authorized [id number] Authorized PCP Requested Referral 10/31/2021 10/31/2022 1 1 Specialty Diagnoses / Procedures Referred By Contac t Referred To Contact Gastroenterology Diagnoses Functional diarrhea Procedures CONSULT TO GASTROENTEROLOGY OFFICE/OUTPATIENT [facility] 60-74 MINUTES Pepito Chan MD [address] [place] [address] Referral ID Status Reason Start Date Expiration Date Visits Requested Visits Authorized [id number] Authorized PCP Requested Referral 11/14/2021 10/31/2022 1 1 Specialty Diagnoses / Procedures Referred By Contac t Referred To Contact Diagnoses Partial epilepsy, with intractable epilepsy, pharmacoresistant (HCC) Procedures CONSULT EPILEPSY - KETO/DIET EVALUATION OFFICE/OUTPATIENT [facility] 60-74 MINUTES Xavi Xie MD [address] [place] [address] Referral ID Status Reason Start Date Expiration Date Visits Requested Visits Authorized [id number] Authorized PCP Requested Referral 11/09/2021 11/09/2022 1 1 Specialty Diagnoses / Procedures Referred By Contac t Referred To Contact Gastroenterology Diagnoses Functional diarrhea Fat malabsorption Procedures CONSULT TO GASTROENTEROLOGY OFFICE/OUTPATIENT [facility] 60-74 MINUTES Hari Oneill DO [address] [place] [address] Referral ID Status Reason Start Date Expiration Date Visits Requested Visits Authorized [id number] Authorized PCP Requested Referral 12/07/2021 12/07/2022 1 1 Specialty Diagnoses / Procedures Referred By Contac t Referred To Contact Gastroenterology Diagnoses Gastroesophageal reflux disease without esophagitis Generalized abdominal pain Procedures CONSULT TO GASTROENTEROLOGY OFFICE/OUTPATIENT [facility] 60-74 MINUTES Hari Oneill, DO [address] [place] [address] Referral ID Status Reason Start Date Expiration Date Visits Requested Visits Authorized [id number] Authorized PCP Requested Referral 02/27/2022 02/27/2023 1 1 Specialty Diagnoses / Procedures Referred By Contac t Referred To Contact Nutrition Diagnoses Increased appetite Procedures CONSULT TO NUTRITION THERAPY MEDICAL NUTRITION ASSMT&IVNTJ INDIV EACH 15 AR MEDICAL NUTRITION ASSMT&IVNTJ INDIV EACH 15 AR MEDICAL NUTRITION ASSMT&IVNTJ INDIV EACH 15 AR MEDICAL NUTRITION ASSMT&IVNTJ INDIV EACH 15 AR Hari Oneill, DO [address] [place] [address] Referral ID Status Reason Start Date Expiration Date Visits Requested Visits Authorized [id number] Pending Review PCP Requested Referral 10/12/2022 10/12/2023 1 1 Specialty Diagnoses / Procedures Referred By Contac t Referred To Contact Podiatry Diagnoses Onychomycosis Procedures CONSULT TO PODIATRY OFFICE/OUTPATIENT [facility] 60 MINUTES Suyapa Lira, JONATHAN.[employer]ODUCTION EXP[employer] [address] [place] [address] Referral ID Status Reason Start Date Expiration Date Visits Requested Visits Authorized [id number] Authorized PCP Requested Referral 02/05/2024 02/04/2025 1 1 Specialty Diagnoses / Procedures Referred By Contac t Referred To Contact General Surgery Diagnoses Calculus of gallbladder without cholecystitis without obstruction Nausea Abdominal fullness Abdominal bloating Early satiety Procedures CONSULT TO GENERAL SURGERY OFFICE/OUTPATIENT [facility] 60 MINUTES Suyapa Lira, JONATHAN.PRODUCTION EXPERT [address] [place] [address] Referral ID Status Reason Start Date Expiration Date Visits Requested Visits Authorized [id number] Authorized PCP Requested Referral 08/15/2024 08/15/2025 1 1 Chief Complaint and Reason for Visit Chief Complaint GALLBLADDER, SECOND OPINION LEFT GREAT TOE INJURY Reason for Visit Abnormal biliary HID A scan Eating disorder Cholelithiasis with chronic cholecystitis Chief Complaint Admit Date lt lower quad pain February 27, 2025 2:26 pm HYPONATREMIA, ABDOMINAL PAIN February 27, 2025 2:27pm Reason for Visit Admit Date Abdominal pain February 27, 2025 2:27 pm Hypokalemia February 27, 2025 2:27 pm Hyponatremia February 27, 2025 2:27 pm Chief Complaint Admit Date lt lower quad pain February 27, 2025 2:26 pm HYPONATREMIA, ABDOMINAL PAIN February 27, 2025 2:27pm HYPONATREMIA, ABDOMINAL PAIN February 27, 2025 6:48pm HYPONATREMIA, ABDOMINAL PAIN February 28, 2025 2:07pm HYPONATREMIA, ABDOMINAL PAIN February 28, 2025 7:11pm HYPONATREMIA, ABDOMINAL PAIN March 01, 2025 11:01am HYPONATREMIA, ABDOMINAL PAIN March 01, 2025 11:39am HYPONATREMIA, ABDOMINAL PAIN March 02, 2025 8:32am HYPONATREMIA, ABDOMINAL PAIN March 02, 2025 1:29pm Reason for Visit Admit Date Abdominal distension February 27, 2025 2:2 7pm Abdominal pain February 27, 2025 2:27 pm Abdominal pain, acute, left lower quadra nt February 27, 2025 2:27pm Colon distention February 27, 2025 2:27 pm Hypokalemia February 27, 2025 2:27 pm Hyponatremia February 27, 2025 2:27 pm Chief Complaint Admit Date lt lower quad pain February 27, 2025 2:26 pm HYPONATREMIA, ABDOMINAL PAIN February 27, 2025 2:27pm HYPONATREMIA, ABDOMINAL PAIN February 27, 2025 6:48pm HYPONATREMIA, ABDOMINAL PAIN February 28, 2025 2:07pm HYPONATREMIA, ABDOMINAL PAIN February 28, 2025 7:11pm HYPONATREMIA, ABDOMINAL PAIN March 01, 2025 11:01am HYPONATREMIA, ABDOMINAL PAIN March 01, 2025 11:39am HYPONATREMIA, ABDOMINAL PAIN March 02, 2025 8:32am HYPONATREMIA, ABDOMINAL PAIN March 02, 2025 1:29pm HYPONATREMIA March 05, 2025 3:57 pm Reason for Visit Admit Date Abdominal distension February 27, 2025 2:2 7pm Abdominal pain February 27, 2025 2:27 pm Abdominal pain, acute, left lower quadra nt February 27, 2025 2:27pm Colon distention February 27, 2025 2:27 pm Hypokalemia February 27, 2025 2:27 pm Hyponatremia February 27, 2025 2:27 pm Gallstone March 05, 2025 3:57 pm Generalized weakness March 05, 2025 3:5 7pm Hyponatremia March 05, 2025 3:57 pm Chief Complaint Admit Date lt lower quad pain February 27, 2025 2:26 pm HYPONATREMIA, ABDOMINAL PAIN February 27, 2025 2:27pm HYPONATREMIA, ABDOMINAL PAIN February 27, 2025 6:48pm HYPONATREMIA, ABDOMINAL PAIN February 28, 2025 2:07pm HYPONATREMIA, ABDOMINAL PAIN February 28, 2025 7:11pm HYPONATREMIA, ABDOMINAL PAIN March 01, 2025 11:01am HYPONATREMIA, ABDOMINAL PAIN March 01, 2025 11:39am HYPONATREMIA, ABDOMINAL PAIN March 02, 2025 8:32am HYPONATREMIA, ABDOMINAL PAIN March 02, 2025 1:29pm HYPONATREMIA March 05, 2025 3:58 pm HYPONATREMIA March 06, 2025 12: 33pm HYPONATREMIA March 06, 2025 6:0 2pm HYPONATREMIA March 07, 2025 10: 58am HYPONATREMIA March 07, 2025 9:5 5pm HYPONATREMIA March 08, 2025 9:5 1am HYPONATREMIA March 08, 2025 2:4 9pm HYPONATREMIA March 09, 2025 10: 53am HYPONATREMIA March 09, 2025 7:0 0pm HYPONATREMIA March 10, 2025 7:4 0am HYPONATREMIA March 11, 2025 7:2 1am HYPONATREMIA March 11, 2025 7:0 1pm HYPONATREMIA March 12, 2025 9:2 0am Reason for Visit Admit Date Abdominal distension February 27, 2025 2:2 7pm Abdominal pain February 27, 2025 2:27 pm Abdominal pain, acute, left lower quadra nt February 27, 2025 2:27pm Colon distention February 27, 2025 2:27 pm Hypokalemia February 27, 2025 2:27 pm Hyponatremia February 27, 2025 2:27 pm Gallstone March 08, 2025 2:4 9pm Generalized weakness March 08, 2025 2: 49pm Abdominal distension March 08, 2025 2: 49pm Abdominal pain March 08, 2025 2:4 9pm Abdominal pain, acute, left lower quadra nt March 08, 2025 2:49pm Hyponatremia March 08, 2025 2:4 9pm Family History No Family History Records Found Relationship Condition Age at Onset Recorded Date/T winnie Unknown Family History?- Unknown September 172019 9:02pm Family History?- Unknown September 172019 9:02pm Family History?No pe rtinent history Unknown March 12, 2014 2:36pm Family History?No pe rtinent history Unknown May 06, 2014 3:11am Health Concerns Infection Onset Date Last Indicated Resolved Time COVID-19 Confirmed 04/18/2023 04/18/2023 Summary Purpose Additional Source Comments Source Comments (unrecognize d section and content) In the event this informatio n is protected by the Federal Confidentiality of Alcohol and Drug Abuse Patient Records regulations: The Federal rules restrict any use of the information to criminally investigate or prosecute any alcohol or drug abuse patient.[facility] the event this information is protected by the Federal Confidentiality of Alcohol and Drug Abuse Patient Records regulations: The Federal rules restrict any use of the information to criminally investigate or prosecute any alcohol or drug abuse patient.[facility]In the event this information is protected by the Federal Confidentiality of Alcohol and Drug Abuse Patient Records regulations: The Federal rules restrict any use of the information to criminally investigate or prosecute any alcohol or drug abuse patient.[facility]In the event this information is protected by the Federal Confidentiality of Alcohol and Drug Abuse Patient Records regulations: The Federal rules restrict any use of the information to criminally investigate or prosecute any alcohol or drug abuse patient.[facility]In the event this information is protected by the Federal Confidentiality of Alcohol and Drug Abuse Patient Records regulations: The Federal rules restrict any use of the information to criminally investigate or prosecute any alcohol or drug abuse patient.[facility]In the event this information is protected by the Federal Confidentiality of Alcohol and Drug Abuse Patient Records regulations: The Federal rules restrict any use of the information to criminally investigate or prosecute any alcohol or drug abuse patient.[facility]In the event this information is protected by the Federal Confidentiality of Alcohol and Drug Abuse Patient Records regulations: The Federal rules restrict any use of the information to criminally investigate or prosecute any alcohol or drug abuse patient.[facility]In the event this information is protected by the Federal Confidentiality of Alcohol and Drug Abuse Patient Records regulations: The Federal rules restrict any use of the information to criminally investigate or prosecute any alcohol or drug abuse patient.[facility]In the event this information is protected by the Federal Confidentiality of Alcohol and Drug Abuse Patient Records regulations: The Federal rules restrict any use of the information to criminally investigate or prosecute any alcohol or drug abuse patient.[facility]In the event this information is protected by the Federal Confidentiality of Alcohol and Drug Abuse Patient Records regulations: The Federal rules restrict any use of the information to criminally investigate or prosecute any alcohol or drug abuse patient.[facility]In the event this information is protected by the Federal Confidentiality of Alcohol and Drug Abuse Patient Records regulations: The Federal rules restrict any use of the information to criminally investigate or prosecute any alcohol or drug abuse patient.[facility] HospitalIn the event this information is protected by the Federal Confidentiality of Alcohol and Drug Abuse Patient Records regulations: The Federal rules restrict any use of the information to criminally investigate or prosecute any alcohol or drug abuse patient.[facility] HospitalIn the event this information is protected by the Federal Confidentiality of Alcohol and Drug Abuse Patient Records regulations: The Federal rules restrict any use of the information to criminally investigate or prosecute any alcohol or drug abuse patient.[facility] HospitalIn the event this information is protected by the Federal Confidentiality of Alcohol and Drug Abuse Patient Records regulations: The Federal rules restrict any use of the information to criminally investigate or prosecute any alcohol or drug abuse patient.[facility] HospitalIn the event this information is protected by the Federal Confidentiality of Alcohol and Drug Abuse Patient Records regulations: The Federal rules restrict any use of the information to criminally investigate or prosecute any alcohol or drug abuse patient.[facility] HospitalIn the event this information is protected by the Federal Confidentiality of Alcohol and Drug Abuse Patient Records regulations: The Federal rules restrict any use of the information to criminally investigate or prosecute any alcohol or drug abuse patient.[facility] HospitalIn the event this information is protected by the Federal Confidentiality of Alcohol and Drug Abuse Patient Records regulations: The Federal rules restrict any use of the information to criminally investigate or prosecute any alcohol or drug abuse patient.[facility] HospitalIn the event this information is protected by the Federal Confidentiality of Alcohol and Drug Abuse Patient Records regulations: The Federal rules restrict any use of the information to criminally investigate or prosecute any alcohol or drug abuse patient.[facility] HospitalIn the event this information is protected by the Federal Confidentiality of Alcohol and Drug Abuse Patient Records regulations: The Federal rules restrict any use of the information to criminally investigate or prosecute any alcohol or drug abuse patient.[facility] HospitalIn the event this information is protected by the Federal Confidentiality of Alcohol and Drug Abuse Patient Records regulations: The Federal rules restrict any use of the information to criminally investigate or prosecute any alcohol or drug abuse patient.[facility] HospitalIn the event this information is protected by the Federal Confidentiality of Alcohol and Drug Abuse Patient Records regulations: The Federal rules restrict any use of the information to criminally investigate or prosecute any alcohol or drug abuse patient.[facility] HospitalIn the event this information is protected by the Federal Confidentiality of Alcohol and Drug Abuse Patient Records regulations: The Federal rules restrict any use of the information to criminally investigate or prosecute any alcohol or drug abuse patient.[facility] HospitalIn the event this information is protected by the Federal Confidentiality of Alcohol and Drug Abuse Patient Records regulations: The Federal rules restrict any use of the information to criminally investigate or prosecute any alcohol or drug abuse patient.[facility]In the event this information is protected by the Federal Confidentiality of Alcohol and Drug Abuse Patient Records regulations: The Federal rules restrict any use of the information to criminally investigate or prosecute any alcohol or drug abuse patient.[facility]In the event this information is protected by the Federal Confidentiality of Alcohol and Drug Abuse Patient Records regulations: The Federal rules restrict any use of the information to criminally investigate or prosecute any alcohol or drug abuse patient.[facility] HospitalIn the event this information is protected by the Federal Confidentiality of Alcohol and Drug Abuse Patient Records regulations: The Federal rules restrict any use of the information to criminally investigate or prosecute any alcohol or drug abuse patient.[facility]In the event this information is protected by the Federal Confidentiality of Alcohol and Drug Abuse Patient Records regulations: The Federal rules restrict any use of the information to criminally investigate or prosecute any alcohol or drug abuse patient.[facility] HospitalIn the event this information is protected by the Federal Confidentiality of Alcohol and Drug Abuse Patient Records regulations: The Federal rules restrict any use of the information to criminally investigate or prosecute any alcohol or drug abuse patient.[facility] HospitalIn the event this information is protected by the Federal Confidentiality of Alcohol and Drug Abuse Patient Records regulations: The Federal rules restrict any use of the information to criminally investigate or prosecute any alcohol or drug abuse patient.[facility] HospitalIn the event this information is protected by the Federal Confidentiality of Alcohol and Drug Abuse Patient Records regulations: The Federal rules restrict any use of the information to criminally investigate or prosecute any alcohol or drug abuse patient.[facility] HospitalIn the event this information is protected by the Federal Confidentiality of Alcohol and Drug Abuse Patient Records regulations: The Federal rules restrict any use of the information to criminally investigate or prosecute any alcohol or drug abuse patient.[facility] HospitalIn the event this information is protected by the Federal Confidentiality of Alcohol and Drug Abuse Patient Records regulations: The Federal rules restrict any use of the information to criminally investigate or prosecute any alcohol or drug abuse patient.[facility]In the event this information is protected by the Federal Confidentiality of Alcohol and Drug Abuse Patient Records regulations: The Federal rules restrict any use of the information to criminally investigate or prosecute any alcohol or drug abuse patient.[facility] HospitalIn the event this information is protected by the Federal Confidentiality of Alcohol and Drug Abuse Patient Records regulations: The Federal rules restrict any use of the information to criminally investigate or prosecute any alcohol or drug abuse patient.[facility] HospitalIn the event this information is protected by the Federal Confidentiality of Alcohol and Drug Abuse Patient Records regulations: The Federal rules restrict any use of the information to criminally investigate or prosecute any alcohol or drug abuse patient.[facility] HospitalIn the event this information is protected by the Federal Confidentiality of Alcohol and Drug Abuse Patient Records regulations: The Federal rules restrict any use of the information to criminally investigate or prosecute any alcohol or drug abuse patient.[facility]In the event this information is protected by the Federal Confidentiality of Alcohol and Drug Abuse Patient Records regulations: The Federal rules restrict any use of the information to criminally investigate or prosecute any alcohol or drug abuse patient.[facility] HospitalIn the event this information is protected by the Federal Confidentiality of Alcohol and Drug Abuse Patient Records regulations: The Federal rules restrict any use of the information to criminally investigate or prosecute any alcohol or drug abuse patient.[facility]In the event this information is protected by the Federal Confidentiality of Alcohol and Drug Abuse Patient Records regulations: The Federal rules restrict any use of the information to criminally investigate or prosecute any alcohol or drug abuse patient.[facility] HospitalIn the event this information is protected by the Federal Confidentiality of Alcohol and Drug Abuse Patient Records regulations: The Federal rules restrict any use of the information to criminally investigate or prosecute any alcohol or drug abuse patient.[facility] HospitalIn the event this information is protected by the Federal Confidentiality of Alcohol and Drug Abuse Patient Records regulations: The Federal rules restrict any use of the information to criminally investigate or prosecute any alcohol or drug abuse patient.[facility] HospitalIn the event this information is protected by the Federal Confidentiality of Alcohol and Drug Abuse Patient Records regulations: The Federal rules restrict any use of the information to criminally investigate or prosecute any alcohol or drug abuse patient.[facility] HospitalIn the event this information is protected by the Federal Confidentiality of Alcohol and Drug Abuse Patient Records regulations: The Federal rules restrict any use of the information to criminally investigate or prosecute any alcohol or drug abuse patient.[facility] HospitalIn the event this information is protected by the Federal Confidentiality of Alcohol and Drug Abuse Patient Records regulations: The Federal rules restrict any use of the information to criminally investigate or prosecute any alcohol or drug abuse patient.[facility] HospitalIn the event this information is protected by the Federal Confidentiality of Alcohol and Drug Abuse Patient Records regulations: The Federal rules restrict any use of the information to criminally investigate or prosecute any alcohol or drug abuse patient.[facility] HospitalIn the event this information is protected by the Federal Confidentiality of Alcohol and Drug Abuse Patient Records regulations: The Federal rules restrict any use of the information to criminally investigate or prosecute any alcohol or drug abuse patient.[facility] HospitalIn the event this information is protected by the Federal Confidentiality of Alcohol and Drug Abuse Patient Records regulations: The Federal rules restrict any use of the information to criminally investigate or prosecute any alcohol or drug abuse patient.[facility] HospitalIn the event this information is protected by the Federal Confidentiality of Alcohol and Drug Abuse Patient Records regulations: The Federal rules restrict any use of the information to criminally investigate or prosecute any alcohol or drug abuse patient.[facility] HospitalIn the event this information is protected by the Federal Confidentiality of Alcohol and Drug Abuse Patient Records regulations: The Federal rules restrict any use of the information to criminally investigate or prosecute any alcohol or drug abuse patient.[facility] HospitalIn the event this information is protected by the Federal Confidentiality of Alcohol and Drug Abuse Patient Records regulations: The Federal rules restrict any use of the information to criminally investigate or prosecute any alcohol or drug abuse patient.[facility] HospitalIn the event this information is protected by the Federal Confidentiality of Alcohol and Drug Abuse Patient Records regulations: The Federal rules restrict any use of the information to criminally investigate or prosecute any alcohol or drug abuse patient.[facility] HospitalIn the event this information is protected by the Federal Confidentiality of Alcohol and Drug Abuse Patient Records regulations: The Federal rules restrict any use of the information to criminally investigate or prosecute any alcohol or drug abuse patient.[facility]In the event this information is protected by the Federal Confidentiality of Alcohol and Drug Abuse Patient Records regulations: The Federal rules restrict any use of the information to criminally investigate or prosecute any alcohol or drug abuse patient.[facility] HospitalIn the event this information is protected by the Federal Confidentiality of Alcohol and Drug Abuse Patient Records regulations: The Federal rules restrict any use of the information to criminally investigate or prosecute any alcohol or drug abuse patient.[facility] HospitalIn the event this information is protected by the Federal Confidentiality of Alcohol and Drug Abuse Patient Records regulations: The Federal rules restrict any use of the information to criminally investigate or prosecute any alcohol or drug abuse patient.[facility]In the event this information is protected by the Federal Confidentiality of Alcohol and Drug Abuse Patient Records regulations: The Federal rules restrict any use of the information to criminally investigate or prosecute any alcohol or drug abuse patient.[facility]In the event this information is protected by the Federal Confidentiality of Alcohol and Drug Abuse Patient Records regulations: The Federal rules restrict any use of the information to criminally investigate or prosecute any alcohol or drug abuse patient.[facility]In the event this information is protected by the Federal Confidentiality of Alcohol and Drug Abuse Patient Records regulations: The Federal rules restrict any use of the information to criminally investigate or prosecute any alcohol or drug abuse patient.[facility]In the event this information is protected by the Federal Confidentiality of Alcohol and Drug Abuse Patient Records regulations: The Federal rules restrict any use of the information to criminally investigate or prosecute any alcohol or drug abuse patient.[facility] HospitalIn the event this information is protected by the Federal Confidentiality of Alcohol and Drug Abuse Patient Records regulations: The Federal rules restrict any use of the information to criminally investigate or prosecute any alcohol or drug abuse patient.[facility]In the event this information is protected by the Federal Confidentiality of Alcohol and Drug Abuse Patient Records regulations: The Federal rules restrict any use of the information to criminally investigate or prosecute any alcohol or drug abuse patient.[facility]In the event this information is protected by the Federal Confidentiality of Alcohol and Drug Abuse Patient Records regulations: The Federal rules restrict any use of the information to criminally investigate or prosecute any alcohol or drug abuse patient.[facility]In the event this information is protected by the Federal Confidentiality of Alcohol and Drug Abuse Patient Records regulations: The Federal rules restrict any use of the information to criminally investigate or prosecute any alcohol or drug abuse patient.[facility] HospitalIn the event this information is protected by the Federal Confidentiality of Alcohol and Drug Abuse Patient Records regulations: The Federal rules restrict any use of the information to criminally investigate or prosecute any alcohol or drug abuse patient.[facility]In the event this information is protected by the Federal Confidentiality of Alcohol and Drug Abuse Patient Records regulations: The Federal rules restrict any use of the information to criminally investigate or prosecute any alcohol or drug abuse patient.[facility] HospitalIn the event this information is protected by the Federal Confidentiality of Alcohol and Drug Abuse Patient Records regulations: The Federal rules restrict any use of the information to criminally investigate or prosecute any alcohol or drug abuse patient.[facility] HospitalIn the event this information is protected by the Federal Confidentiality of Alcohol and Drug Abuse Patient Records regulations: The Federal rules restrict any use of the information to criminally investigate or prosecute any alcohol or drug abuse patient.[facility]In the event this information is protected by the Federal Confidentiality of Alcohol and Drug Abuse Patient Records regulations: The Federal rules restrict any use of the information to criminally investigate or prosecute any alcohol or drug abuse patient.[facility]In the event this information is protected by the Federal Confidentiality of Alcohol and Drug Abuse Patient Records regulations: The Federal rules restrict any use of the information to criminally investigate or prosecute any alcohol or drug abuse patient.[facility]In the event this information is protected by the Federal Confidentiality of Alcohol and Drug Abuse Patient Records regulations: The Federal rules restrict any use of the information to criminally investigate or prosecute any alcohol or drug abuse patient.[facility]In the event this information is protected by the Federal Confidentiality of Alcohol and Drug Abuse Patient Records regulations: The Federal rules restrict any use of the information to criminally investigate or prosecute any alcohol or drug abuse patient.[facility] HospitalIn the event this information is protected by the Federal Confidentiality of Alcohol and Drug Abuse Patient Records regulations: The Federal rules restrict any use of the information to criminally investigate or prosecute any alcohol or drug abuse patient.[facility] HospitalIn the event this information is protected by the Federal Confidentiality of Alcohol and Drug Abuse Patient Records regulations: The Federal rules restrict any use of the information to criminally investigate or prosecute any alcohol or drug abuse patient.[facility]In the event this information is protected by the Federal Confidentiality of Alcohol and Drug Abuse Patient Records regulations: The Federal rules restrict any use of the information to criminally investigate or prosecute any alcohol or drug abuse patient.[facility]In the event this information is protected by the Federal Confidentiality of Alcohol and Drug Abuse Patient Records regulations: The Federal rules restrict any use of the information to criminally investigate or prosecute any alcohol or drug abuse patient.[facility]In the event this information is protected by the Federal Confidentiality of Alcohol and Drug Abuse Patient Records regulations: The Federal rules restrict any use of the information to criminally investigate or prosecute any alcohol or drug abuse patient.[facility]In the event this information is protected by the Federal Confidentiality of Alcohol and Drug Abuse Patient Records regulations: The Federal rules restrict any use of the information to criminally investigate or prosecute any alcohol or drug abuse patient.[facility]In the event this information is protected by the Federal Confidentiality of Alcohol and Drug Abuse Patient Records regulations: The Federal rules restrict any use of the information to criminally investigate or prosecute any alcohol or drug abuse patient.[facility]In the event this information is protected by the Federal Confidentiality of Alcohol and Drug Abuse Patient Records regulations: The Federal rules restrict any use of the information to criminally investigate or prosecute any alcohol or drug abuse patient.[facility] HospitalIn the event this information is protected by the Federal Confidentiality of Alcohol and Drug Abuse Patient Records regulations: The Federal rules restrict any use of the information to criminally investigate or prosecute any alcohol or drug abuse patient.[facility]In the event this information is protected by the Federal Confidentiality of Alcohol and Drug Abuse Patient Records regulations: The Federal rules restrict any use of the information to criminally investigate or prosecute any alcohol or drug abuse patient.[facility] HospitalIn the event this information is protected by the Federal Confidentiality of Alcohol and Drug Abuse Patient Records regulations: The Federal rules restrict any use of the information to criminally investigate or prosecute any alcohol or drug abuse patient.[facility] HospitalIn the event this information is protected by the Federal Confidentiality of Alcohol and Drug Abuse Patient Records regulations: The Federal rules restrict any use of the information to criminally investigate or prosecute any alcohol or drug abuse patient.[facility]In the event this information is protected by the Federal Confidentiality of Alcohol and Drug Abuse Patient Records regulations: The Federal rules restrict any use of the information to criminally investigate or prosecute any alcohol or drug abuse patient.[facility]In the event this information is protected by the Federal Confidentiality of Alcohol and Drug Abuse Patient Records regulations: The Federal rules restrict any use of the information to criminally investigate or prosecute any alcohol or drug abuse patient.[facility]In the event this information is protected by the Federal Confidentiality of Alcohol and Drug Abuse Patient Records regulations: The Federal rules restrict any use of the information to criminally investigate or prosecute any alcohol or drug abuse patient.[facility]In the event this information is protected by the Federal Confidentiality of Alcohol and Drug Abuse Patient Records regulations: The Federal rules restrict any use of the information to criminally investigate or prosecute any alcohol or drug abuse patient.[facility]In the event this information is protected by the Federal Confidentiality of Alcohol and Drug Abuse Patient Records regulations: The Federal rules restrict any use of the information to criminally investigate or prosecute any alcohol or drug abuse patient.[facility]In the event this information is protected by the Federal Confidentiality of Alcohol and Drug Abuse Patient Records regulations: The Federal rules restrict any use of the information to criminally investigate or prosecute any alcohol or drug abuse patient.[facility]In the event this information is protected by the Federal Confidentiality of Alcohol and Drug Abuse Patient Records regulations: The Federal rules restrict any use of the information to criminally investigate or prosecute any alcohol or drug abuse patient.[facility]In the event this information is protected by the Federal Confidentiality of Alcohol and Drug Abuse Patient Records regulations: The Federal rules restrict any use of the information to criminally investigate or prosecute any alcohol or drug abuse patient.[facility]In the event this information is protected by the Federal Confidentiality of Alcohol and Drug Abuse Patient Records regulations: The Federal rules restrict any use of the information to criminally investigate or prosecute any alcohol or drug abuse patient.[facility]In the event this information is protected by the Federal Confidentiality of Alcohol and Drug Abuse Patient Records regulations: The Federal rules restrict any use of the information to criminally investigate or prosecute any alcohol or drug abuse patient.[facility]In the event this information is protected by the Federal Confidentiality of Alcohol and Drug Abuse Patient Records regulations: The Federal rules restrict any use of the information to criminally investigate or prosecute any alcohol or drug abuse patient.[facility]In the event this information is protected by the Federal Confidentiality of Alcohol and Drug Abuse Patient Records regulations: The Federal rules restrict any use of the information to criminally investigate or prosecute any alcohol or drug abuse patient.[facility]In the event this information is protected by the Federal Confidentiality of Alcohol and Drug Abuse Patient Records regulations: The Federal rules restrict any use of the information to criminally investigate or prosecute any alcohol or drug abuse patient.[facility]In the event this information is protected by the Federal Confidentiality of Alcohol and Drug Abuse Patient Records regulations: The Federal rules restrict any use of the information to criminally investigate or prosecute any alcohol or drug abuse patient.[facility]In the event this information is protected by the Federal Confidentiality of Alcohol and Drug Abuse Patient Records regulations: The Federal rules restrict any use of the information to criminally investigate or prosecute any alcohol or drug abuse patient.[facility]In the event this information is protected by the Federal Confidentiality of Alcohol and Drug Abuse Patient Records regulations: The Federal rules restrict any use of the information to criminally investigate or prosecute any alcohol or drug abuse patient.[facility]In the event this information is protected by the Federal Confidentiality of Alcohol and Drug Abuse Patient Records regulations: The Federal rules restrict any use of the information to criminally investigate or prosecute any alcohol or drug abuse patient.[facility]In the event this information is protected by the Federal Confidentiality of Alcohol and Drug Abuse Patient Records regulations: The Federal rules restrict any use of the information to criminally investigate or prosecute any alcohol or drug abuse patient.[facility]In the event this information is protected by the Federal Confidentiality of Alcohol and Drug Abuse Patient Records regulations: The Federal rules restrict any use of the information to criminally investigate or prosecute any alcohol or drug abuse patient.[facility]In the event this information is protected by the Federal Confidentiality of Alcohol and Drug Abuse Patient Records regulations: The Federal rules restrict any use of the information to criminally investigate or prosecute any alcohol or drug abuse patient.[facility]In the event this information is protected by the Federal Confidentiality of Alcohol and Drug Abuse Patient Records regulations: The Federal rules restrict any use of the information to criminally investigate or prosecute any alcohol or drug abuse patient.[facility]In the event this information is protected by the Federal Confidentiality of Alcohol and Drug Abuse Patient Records regulations: The Federal rules restrict any use of the information to criminally investigate or prosecute any alcohol or drug abuse patient.[facility]In the event this information is protected by the Federal Confidentiality of Alcohol and Drug Abuse Patient Records regulations: The Federal rules restrict any use of the information to criminally investigate or prosecute any alcohol or drug abuse patient.[facility]In the event this information is protected by the Federal Confidentiality of Alcohol and Drug Abuse Patient Records regulations: The Federal rules restrict any use of the information to criminally investigate or prosecute any alcohol or drug abuse patient.[facility]In the event this information is protected by the Federal Confidentiality of Alcohol and Drug Abuse Patient Records regulations: The Federal rules restrict any use of the information to criminally investigate or prosecute any alcohol or drug abuse patient.[facility]In the event this information is protected by the Federal Confidentiality of Alcohol and Drug Abuse Patient Records regulations: The Federal rules restrict any use of the information to criminally investigate or prosecute any alcohol or drug abuse patient.[facility]In the event this information is protected by the Federal Confidentiality of Alcohol and Drug Abuse Patient Records regulations: The Federal rules restrict any use of the information to criminally investigate or prosecute any alcohol or drug abuse patient.[facility]In the event this information is protected by the Federal Confidentiality of Alcohol and Drug Abuse Patient Records regulations: The Federal rules restrict any use of the information to criminally investigate or prosecute any alcohol or drug abuse patient.[facility]In the event this information is protected by the Federal Confidentiality of Alcohol and Drug Abuse Patient Records regulations: The Federal rules restrict any use of the information to criminally investigate or prosecute any alcohol or drug abuse patient.[facility]In the event this information is protected by the Federal Confidentiality of Alcohol and Drug Abuse Patient Records regulations: The Federal rules restrict any use of the information to criminally investigate or prosecute any alcohol or drug abuse patient.[facility]In the event this information is protected by the Federal Confidentiality of Alcohol and Drug Abuse Patient Records regulations: The Federal rules restrict any use of the information to criminally investigate or prosecute any alcohol or drug abuse patient.[facility]In the event this information is protected by the Federal Confidentiality of Alcohol and Drug Abuse Patient Records regulations: The Federal rules restrict any use of the information to criminally investigate or prosecute any alcohol or drug abuse patient.[facility]In the event this information is protected by the Federal Confidentiality of Alcohol and Drug Abuse Patient Records regulations: The Federal rules restrict any use of the information to criminally investigate or prosecute any alcohol or drug abuse patient.[facility]In the event this information is protected by the Federal Confidentiality of Alcohol and Drug Abuse Patient Records regulations: The Federal rules restrict any use of the information to criminally investigate or prosecute any alcohol or drug abuse patient.[facility]In the event this information is protected by the Federal Confidentiality of Alcohol and Drug Abuse Patient Records regulations: The Federal rules restrict any use of the information to criminally investigate or prosecute any alcohol or drug abuse patient.[facility]In the event this information is protected by the Federal Confidentiality of Alcohol and Drug Abuse Patient Records regulations: The Federal rules restrict any use of the information to criminally investigate or prosecute any alcohol or drug abuse patient.[facility]In the event this information is protected by the Federal Confidentiality of Alcohol and Drug Abuse Patient Records regulations: The Federal rules restrict any use of the information to criminally investigate or prosecute any alcohol or drug abuse patient.[facility]In the event this information is protected by the Federal Confidentiality of Alcohol and Drug Abuse Patient Records regulations: The Federal rules restrict any use of the information to criminally investigate or prosecute any alcohol or drug abuse patient.[facility]In the event this information is protected by the Federal Confidentiality of Alcohol and Drug Abuse Patient Records regulations: The Federal rules restrict any use of the information to criminally investigate or prosecute any alcohol or drug abuse patient.[facility]In the event this information is protected by the Federal Confidentiality of Alcohol and Drug Abuse Patient Records regulations: The Federal rules restrict any use of the information to criminally investigate or prosecute any alcohol or drug abuse patient.[facility]In the event this information is protected by the Federal Confidentiality of Alcohol and Drug Abuse Patient Records regulations: The Federal rules restrict any use of the information to criminally investigate or prosecute any alcohol or drug abuse patient.[facility]In the event this information is protected by the Federal Confidentiality of Alcohol and Drug Abuse Patient Records regulations: The Federal rules restrict any use of the information to criminally investigate or prosecute any alcohol or drug abuse patient.[facility]In the event this information is protected by the Federal Confidentiality of Alcohol and Drug Abuse Patient Records regulations: The Federal rules restrict any use of the information to criminally investigate or prosecute any alcohol or drug abuse patient.[facility]In the event this information is protected by the Federal Confidentiality of Alcohol and Drug Abuse Patient Records regulations: The Federal rules restrict any use of the information to criminally investigate or prosecute any alcohol or drug abuse patient.[facility]In the event this information is protected by the Federal Confidentiality of Alcohol and Drug Abuse Patient Records regulations: The Federal rules restrict any use of the information to criminally investigate or prosecute any alcohol or drug abuse patient.[facility]In the event this information is protected by the Federal Confidentiality of Alcohol and Drug Abuse Patient Records regulations: The Federal rules restrict any use of the information to criminally investigate or prosecute any alcohol or drug abuse patient.[facility]In the event this information is protected by the Federal Confidentiality of Alcohol and Drug Abuse Patient Records regulations: The Federal rules restrict any use of the information to criminally investigate or prosecute any alcohol or drug abuse patient.[facility]In the event this information is protected by the Federal Confidentiality of Alcohol and Drug Abuse Patient Records regulations: The Federal rules restrict any use of the information to criminally investigate or prosecute any alcohol or drug abuse patient.[facility]In the event this information is protected by the Federal Confidentiality of Alcohol and Drug Abuse Patient Records regulations: The Federal rules restrict any use of the information to criminally investigate or prosecute any alcohol or drug abuse patient.[facility]In the event this information is protected by the Federal Confidentiality of Alcohol and Drug Abuse Patient Records regulations: The Federal rules restrict any use of the information to criminally investigate or prosecute any alcohol or drug abuse patient.[facility]In the event this information is protected by the Federal Confidentiality of Alcohol and Drug Abuse Patient Records regulations: The Federal rules restrict any use of the information to criminally investigate or prosecute any alcohol or drug abuse patient.[facility]In the event this information is protected by the Federal Confidentiality of Alcohol and Drug Abuse Patient Records regulations: The Federal rules restrict any use of the information to criminally investigate or prosecute any alcohol or drug abuse patient.[facility]In the event this information is protected by the Federal Confidentiality of Alcohol and Drug Abuse Patient Records regulations: The Federal rules restrict any use of the information to criminally investigate or prosecute any alcohol or drug abuse patient.[facility]In the event this information is protected by the Federal Confidentiality of Alcohol and Drug Abuse Patient Records regulations: The Federal rules restrict any use of the information to criminally investigate or prosecute any alcohol or drug abuse patient.[facility]In the event this information is protected by the Federal Confidentiality of Alcohol and Drug Abuse Patient Records regulations: The Federal rules restrict any use of the information to criminally investigate or prosecute any alcohol or drug abuse patient.[facility]In the event this information is protected by the Federal Confidentiality of Alcohol and Drug Abuse Patient Records regulations: The Federal rules restrict any use of the information to criminally investigate or prosecute any alcohol or drug abuse patient.[facility] HospitalIn the event this information is protected by the Federal Confidentiality of Alcohol and Drug Abuse Patient Records regulations: The Federal rules restrict any use of the information to criminally investigate or prosecute any alcohol or drug abuse patient.[facility] HospitalIn the event this information is protected by the Federal Confidentiality of Alcohol and Drug Abuse Patient Records regulations: The Federal rules restrict any use of the information to criminally investigate or prosecute any alcohol or drug abuse patient.[facility] HospitalIn the event this information is protected by the Federal Confidentiality of Alcohol and Drug Abuse Patient Records regulations: The Federal rules restrict any use of the information to criminally investigate or prosecute any alcohol or drug abuse patient.[facility] HospitalIn the event this information is protected by the Federal Confidentiality of Alcohol and Drug Abuse Patient Records regulations: The Federal rules restrict any use of the information to criminally investigate or prosecute any alcohol or drug abuse patient.[facility] HospitalIn the event this information is protected by the Federal Confidentiality of Alcohol and Drug Abuse Patient Records regulations: The Federal rules restrict any use of the information to criminally investigate or prosecute any alcohol or drug abuse patient.[facility] HospitalIn the event this information is protected by the Federal Confidentiality of Alcohol and Drug Abuse Patient Records regulations: The Federal rules restrict any use of the information to criminally investigate or prosecute any alcohol or drug abuse patient.[facility] HospitalIn the event this information is protected by the Federal Confidentiality of Alcohol and Drug Abuse Patient Records regulations: The Federal rules restrict any use of the information to criminally investigate or prosecute any alcohol or drug abuse patient.[facility] HospitalIn the event this information is protected by the Federal Confidentiality of Alcohol and Drug Abuse Patient Records regulations: The Federal rules restrict any use of the information to criminally investigate or prosecute any alcohol or drug abuse patient.[facility] HospitalIn the event this information is protected by the Federal Confidentiality of Alcohol and Drug Abuse Patient Records regulations: The Federal rules restrict any use of the information to criminally investigate or prosecute any alcohol or drug abuse patient.[facility] HospitalIn the event this information is protected by the Federal Confidentiality of Alcohol and Drug Abuse Patient Records regulations: The Federal rules restrict any use of the information to criminally investigate or prosecute any alcohol or drug abuse patient.[facility] HospitalIn the event this information is protected by the Federal Confidentiality of Alcohol and Drug Abuse Patient Records regulations: The Federal rules restrict any use of the information to criminally investigate or prosecute any alcohol or drug abuse patient.[facility] HospitalIn the event this information is protected by the Federal Confidentiality of Alcohol and Drug Abuse Patient Records regulations: The Federal rules restrict any use of the information to criminally investigate or prosecute any alcohol or drug abuse patient.[facility] HospitalIn the event this information is protected by the Federal Confidentiality of Alcohol and Drug Abuse Patient Records regulations: The Federal rules restrict any use of the information to criminally investigate or prosecute any alcohol or drug abuse patient.[facility] HospitalIn the event this information is protected by the Federal Confidentiality of Alcohol and Drug Abuse Patient Records regulations: The Federal rules restrict any use of the information to criminally investigate or prosecute any alcohol or drug abuse patient.[facility] HospitalIn the event this information is protected by the Federal Confidentiality of Alcohol and Drug Abuse Patient Records regulations: The Federal rules restrict any use of the information to criminally investigate or prosecute any alcohol or drug abuse patient.[facility] HospitalIn the event this information is protected by the Federal Confidentiality of Alcohol and Drug Abuse Patient Records regulations: The Federal rules restrict any use of the information to criminally investigate or prosecute any alcohol or drug abuse patient.[facility] HospitalIn the event this information is protected by the Federal Confidentiality of Alcohol and Drug Abuse Patient Records regulations: The Federal rules restrict any use of the information to criminally investigate or prosecute any alcohol or drug abuse patient.[facility] HospitalIn the event this information is protected by the Federal Confidentiality of Alcohol and Drug Abuse Patient Records regulations: The Federal rules restrict any use of the information to criminally investigate or prosecute any alcohol or drug abuse patient.[facility] HospitalIn the event this information is protected by the Federal Confidentiality of Alcohol and Drug Abuse Patient Records regulations: The Federal rules restrict any use of the information to criminally investigate or prosecute any alcohol or drug abuse patient.[facility] HospitalIn the event this information is protected by the Federal Confidentiality of Alcohol and Drug Abuse Patient Records regulations: The Federal rules restrict any use of the information to criminally investigate or prosecute any alcohol or drug abuse patient.[facility] Reason for Visit (unrecogniz ed section and content) Reason Comments Consult Specialty Diagnoses / Procedures Referred By Julio C ramirez Referred To Contact General Surgery Diagnoses Calculus of gallbladder without cholecystitis without obstruction Nausea Abdominal fullness Abdominal bloating Early satiety Procedures CONSULT TO GENERAL SURGERY OFFICE/OUTPATIENT [facility] 60 MINUTES Suyapa Lira APRN.PRODUCTION EXPERT [address] [place] [address] Referral ID Status Reason Start Date Expiration Date V isits Requested Visits Authorized [id number] Closed PCP Requested Referral 08/15/2024 08/15/2025 1 1 Reason Comments Assessment Patient Education Specialty Diagnoses / Procedures Referred By Julio C ramirez Referred To Contact Nutrition Diagnoses Nausea Weight gain Overeating Frequent bowel movements Procedures CONSULT TO NUTRITION THERAPY MEDICAL NUTRITION ASSMT&IVNTJ INDIV EACH 15 AR SorayaSuyapa APRN.PRODUCTION EXPERT [address] [place] [address] Referral ID Status Reason Start Date Expiration Date Visits Requested Visits Authorized [id number] Authorized PCP Requested Referral 07/24/2025 1 4 Reason Comments Reassessment Patient Education Specialty Diagnoses / Procedures Referred By Contac t Referred To Contact Nutrition Diagnoses Increased appetite Procedures CONSULT TO NUTRITION THERAPY MEDICAL NUTRITION ASSMT&IVNTJ INDIV EACH 15 AR MEDICAL NUTRITION ASSMT&IVNTJ INDIV EACH 15 AR MEDICAL NUTRITION ASSMT&IVNTJ INDIV EACH 15 AR MEDICAL NUTRITION ASSMT&IVNTJ INDIV EACH 15 AR Hari Oneill, DO [address] [place] [address] Referral ID Status Reason Start Date Expiration Date Visits Requested Visits Authorized [id number] Pending Review PCP Requested Referral 10/12/2022 10/12/2023 1 1 Reason Onset Date Comments Refill Request 10/25/2021 Reason Onset Date Comments Refill Request 10/28/2021 Reason Comments Follow Up Reason Comments Results Reason Comments Follow Up 6 weeks Reason Comments Anticoagulation Reason Onset Date Comments Anticoagulation 12/02/2021 Reason Comments Appointment Reason Comments Lactose tolerance test Reason Comments Suture Removal lft foot send toe on the bottom Reason Comments GI symptoms Specialty Diagnoses / Procedures Referred By Contac t Referred To Contact Gastroenterology Diagnoses Functional diarrhea Fat malabsorption Procedures CONSULT TO GASTROENTEROLOGY OFFICE/OUTPATIENT [facility] MDM 60-74 MINUTES Hari Oneill, DO [address] [place] [address] Referral ID Status Reason Start Date Expiration Date V isits Requested Visits Authorized [id number] Closed PCP Requested Referral 12/07/2021 12/07/2022 1 1 Reason Comments Refill Request Reason Onset Date Comments Refill Request 01/27/2022 Reason Comments Prescription Refills Reason Onset Date Comments Refill Request 02/08/2022 Reason Comments Diarrhea x 2 weeks Reason Comments Results Reason Onset Date Comments Refill Request 04/25/2022 Reason Comments GERD Feels like needs to eat first thing in the morning otherwise feels sick. Has abdominal pain and occasionally feels dizzy Diarrhea Daily x6 weeks, gas, hasn't been able to tolerate healthy foods, denies blood in stool Specialty Diagnoses / Procedures Referred By Contac t Referred To Contact Gastroenterology Diagnoses Gastroesophageal reflux disease without esophagitis Generalized abdominal pain Procedures CONSULT TO GASTROENTEROLOGY OFFICE/OUTPATIENT NEW HIGH MDM 60-74 MINUTES Hari Oneill, DO [address] [place] [address] Referral ID Status Reason Start Date Expiration Date V isits Requested Visits Authorized [id number] Closed PCP Requested Referral 02/27/2022 02/27/2023 1 1 Reason Onset Date Comments Refill Request 05/09/2022 Reason Comments F/U 3 Month Reason Comments Follow Up Reason Comments Medication Follow-up ANTICOAG MED Reason Comments Patient Update Reason Comments Medication Problem Reason Onset Date Comments Refill Request 09/20/2022 Reason Comments Appointment Cost concerns Reason Comments Med Management Reason Onset Date Comments Procedure 11/07/2022 Breath Test - Gl ucose Specialty Diagnoses / Procedures Referred By Contac t Referred To Contact [facility] Diagnoses Diarrhea, unspecified type Procedures BREATH TEST GLUCOSE BREATH HYDROGEN/METHANE TEST Pack, JONATHAN Land.PRODUCTION EXPERT [address] [address] [facility] [address] [place] [address] Referral ID Status Reason Start Date Expiration Date V isits Requested Visits Authorized [id number] Closed Auto-Generate d Referral 05/09/2022 05/09/2023 1 1 Reason Comments Medication Authorization Reason Comments Critical INR 5.1 Reason Comments Seizures Reason Onset Date Comments Refill Request 12/06/2022 Reason Comments Orders Reason Comments Research IRB [id number] Reason Comments Pain Pt reported bilatera l leg, hip pain x3 wks. Reason Comments Follow Up 4 month Reason Comments Results Orders Reason Onset Date Comments Refill Request 04/06/2023 Reason Onset Date Comments Refill Request 04/23/2023 Reason Comments Hospital F/U seizure Specialty Diagnoses / Procedures Referred By Contac t Referred To Contact FAMILY MEDICINE Diagnoses hospital follow up Procedures follow up Self [facility] [address] [place] [address] Referral ID Status Reason Start Date Expiration Date Visits Requested Visits Authorized [id number] Outside PCP OON/Self Pay Override 04/27/2023 10/24/2023 3 3 Reason Onset Date Comments Refill Request 05/24/2023 Reason Comments General Clearance Reason Comments Medication Problem Vimpat - UCB Applica tion and script Reason Onset Date Comments Refill Request 09/27/2023 Reason Onset Date Comments Refill Request 10/08/2023 Reason Onset Date Comments Refill Request 11/23/2023 Reason Onset Date Comments Refill Request 12/19/2023 Reason Comments Established Patient Follow Up Epilepsy Reason Comments Letter to get off Jury Duty Reason Onset Date Comments Refill Request 01/17/2024 Reason Comments Wound Check Angel Luis legs, left toena il check Reason Comments Wound Check Reason Comments Medication Problem Keppra - Low Levels Reason Onset Date Comments Refill Request 03/10/2024 Reason Comments Fever Reason Comments Same Day Appointment fever,chills,diarrh ea,fatigue x 1-2 days Reason Comments Blood In Urine started 1 hour ago 1 2:46 pm Reason Comments ER F/U Reason Onset Date Comments Refill Request 05/05/2024 Reason Comments Erroneous encounter-disregard Reason Comments INR results Reason Comments Established Patient Follow Up Reason Onset Date Comments Refill Request 05/15/2024 Reason Comments Edema bilateral legs swell ing with drainage x 1 month Reason Comments Cellulitis bilateral legs Reason Comments Orders INR Reason Comments Follow Up Cellulitis Angel Luis lower legs Reason Onset Date Comments Refill Request 06/23/2024 Reason Comments Forms UCB Re-enrollment Co nfirmation for VIMPAT Reason Comments excessive hunger Eats 6/7 meals a day Urinary Frequency Nighttime Reason Comments Radiology NM Specialty Diagnoses / Procedures Referred By Contac t Referred To Contact MOLECULAR & FUNCTIONAL IMAGING Diagnoses Calculus of gallbladder without cholecystitis without obstruction Nausea Frequent bowel movements Abdominal fullness Abdominal bloating Early satiety Procedures NM HEPATOBILIARY W EF AND/OR RX HEPATOBIL SYST IMAG INC GB W/PHARMA INTERVENSuyapa Monroy, 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 [address] [place] [address] Molecular & Functional Imaging [address] [place] [address] Referral ID Status Reason Start Date Expiration Date V isits Requested Visits Authorized [id number] Closed Auto-Generate d Referral 08/08/2024 09/07/2025 1 1 Reason Comments Results Appointment Reason Comments Results Orders Appointment Reason Comments New Patient Specialty Diagnoses / Procedures Referred By Julio C ramirez Referred To Contact Vascular Surgery Diagnoses Bilateral leg edema Bilateral leg pain Procedures CONSULT TO VASCULAR SURGERY OFFICE/OUTPATIENT NEW HIGH MDM 60 MINUTES Suyapa Lira APRN.PRODUCTION EXPERT [address] [place] [address] Referral ID Status Reason Start Date Expiration Date V isits Requested Visits Authorized [id number] Closed PCP Requested Referral 07/24/2024 07/24/2025 1 1 Reason Onset Date Comments Population [facility] Navigation Outreach 09/10/2024 [facility] Reason Comments Follow Up Colonscopy Reason Onset Date Comments Refill Request 10/24/2024 Reason Onset Date Comments Refill Request 10/28/2024 Reason Comments 09-29-2024 [facility] Reason Onset Date Comments Refill Request 10/29/2024 requesting medication that is not on list 2024 Reason Onset Date Comments Results 10/29/2024 Reason Onset Date Comments Refill Request 11/19/2024 Reason Onset Date Comments Refill Request 12/22/2024 Reason Onset Date Comments Population [facility] Navigation Outreach 01/22/2025 [facility] Reason Onset Date Comments Refill Request 01/22/2025 Reason Comments Diarrhea Frequent urination, incontinence x 3 weeksLeft foot pain x 3 days Reason Onset Date Comments [facility] RN 02/11/2025 Chart review per payor request Reason Comments Abdominal Pain Reason Onset Date Comments Refill Request 02/27/2025 Reason Comments Hospital F/U [facility] 02/27-03/02/25. We nt to ER initially for abd pain, nausea and diarrhea. Dx Hyponatremia and Hypokalemia. 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 Operator Helper Relationship Specialty Start Date End Date Hari Oneill, [address] [place] [address] PCP - General Family Practice 3/7/13 [place] [address] [place] [address] Specialty Glaze Handler Hematology/Oncology 05/20/18 Splitting Machine Operator Helper Relationship Specialty Start Date End Date Hari Oneill, DO [address] [facility] [place] [address] PCP - General Family Practice 10/10/12 [place] [address] [place] [address] Specialty Glaze Handler Hematology/Oncology 05/20/18 Splitting Machine Operator Helper Relationship Specialty Start Date End Date Hari Oneill, DO [address] [facility] [place] [place] [address] PCP - General Family Practice 10/10/12 [place] [address] [place] [address] Specialty Glaze Handler Hematology/Oncology 05/20/18 Splitting Machine Operator Helper Relationship Specialty Start Date End Date Hari Oneill, DO [address] [facility] [place] [address] PCP - General Family Practice 10/10/12 Amelia Bennett, [place] [address] [place] [address] Specialty Glaze Handler Hematology/Oncology 05/20/18 Splitting Machine Operator Helper Relationship Specialty Start Date End Date Hari Oneill, DO [address] [place] [address] PCP - General Family Practice 10/10/12 [place] [address] [place] [address] Specialty Glaze Handler Hematology/Oncology 05/20/18 Splitting Machine Operator Helper Relationship Specialty Start Date End Date Hari Oneill, DO [address] [facility] [place] [address] PCP - General Family Practice 10/10/12 [place] [address] [place] [address] Specialty Glaze Handler Hematology/Oncology 05/20/18 Splitting Machine Operator Helper Relationship Specialty Start Date End Date Hari Oneill, DO [address] [facility] [place] [address] PCP - General Family Practice 10/10/12 [place] [address] [place] [address] Specialty Glaze Handler Hematology/Oncology 05/20/18 Splitting Machine Operator Helper Relationship Specialty Start Date End Date Hari Oneill, DO [address] [facility] [place] [address] PCP - General Family Practice 10/10/12 [place] [address] [place] [address] Specialty Glaze Handler Hematology/Oncology 05/20/18 Splitting Machine Operator Helper Relationship Specialty Start Date End Date Hari Oneill, DO [address] [facility] [place] [address] PCP - General Family Practice 10/10/12 Amelia Bennett, [place] [address] [place] [address] Specialty Glaze Handler Hematology/Oncology 05/20/18 Splitting Machine Operator Helper Relationship Specialty Start Date End Date Hari Oneill, DO [address] [facility] [place] [address] PCP - General Family Practice 10/10/12 [place] [address] [place] [address] Specialty Glaze Handler Hematology/Oncology 05/20/18 Splitting Machine Operator Helper Relationship Specialty Start Date End Date Hari Oneill, DO [address] [facility] [place] [address] PCP - General Family Practice 10/10/12 [place] [address] [place] [address] Specialty Glaze Handler Hematology/Oncology 05/20/18 Splitting Machine Operator Helper Relationship Specialty Start Date End Date Hari Oneill, DO [address] [facility] [place] [address] PCP - General Family Practice 10/10/12 Amelia Bennett, DARREN [address] [place] [address] Specialty Glaze Handler Hematology/Oncology 05/20/18 Splitting Machine Operator Helper Relationship Specialty Start Date End Date Hari Oneill, DO [address] [facility] [place] [address] PCP - General Family Practice 10/10/12 Amelia Bennett, DARREN [address] [place] [address] Specialty Glaze Handler Hematology/Oncology 05/20/18 Splitting Machine Operator Helper Relationship Specialty Start Date End Date Hari Oneill, DO [address] [facility] [place] [address] PCP - General Family Practice 10/10/12 Amelia Bennett, DARREN [address] [place] [address] Specialty Glaze Handler Hematology/Oncology 05/20/18 Splitting Machine Operator Helper Relationship Specialty Start Date End Date Hari Oneill, DO [address] [facility] [place] [address] PCP - General Family Medicine 10/10/12 Amelia Bennett, RN [address] [place] [address] Specialty Glaze Handler Hematology/Oncology 05/20/18 Splitting Machine Operator Helper Relationship Specialty Start Date End Date Hari Oneill, DO [address] [facility] [place] [address] PCP - General Family Medicine 10/10/12 Amelia Bennett, RN [address] [place] [address] Specialty Glaze Handler Hematology/Oncology 05/20/18 Splitting Machine Operator Helper Relationship Specialty Start Date End Date Hari Oneill, DO [address] [facility] [place] [address] PCP - General Family Medicine 10/10/12 Amelia Bennett, [place] [id number] [place] [address], [place] [address] Specialty Glaze Handler Hematology/Oncology 05/20/18 Splitting Machine Operator Helper Relationship Specialty Start Date End Date Hari Oneill, DO [address] [facility] [place] [address] PCP - General Family Medicine 10/10/12 Amelia Bennett, RN [address] [place] [address] Specialty Glaze Handler Hematology/Oncology 05/20/18 Splitting Machine Operator Helper Relationship Specialty Start Date End Date Hari Oneill, DO [address] [facility] [place] [address] PCP - General Family Medicine 10/10/12 Amelia [place], RN [id number] [place] [address] Specialty Glaze Handler Hematology/Oncology 05/20/18 Splitting Machine Operator Helper Relationship Specialty Start Date End Date Hari Oneill, DO [address] [facility] [place] [address] PCP - General Family Medicine 10/10/12 [place] [address] [place] [address] Specialty Glaze Handler Hematology/Oncology 05/20/18 Splitting Machine Operator Helper Relationship Specialty Start Date End Date Hari Oneill, DO [address] [facility] [place] [address] PCP - General Family Medicine 10/10/12 Amelia [place], [place] [id number] [place] [address] Specialty Glaze Handler Hematology/Oncology 05/20/18 Splitting Machine Operator Helper Relationship Specialty Start Date End Date Hari Oneill, DO [address] [facility] [place] [address] PCP - General Family Medicine 10/10/12 [place] [address] [place] [address] Specialty Glaze Handler Hematology/Oncology 05/20/18 Splitting Machine Operator Helper Relationship Specialty Start Date End Date Hari Oneill, DO [address] [facility] [place] [address] PCP - General Family Medicine 10/10/12 [place] [address] [place] [address] Specialty Glaze Handler Hematology/Oncology 05/20/18 Splitting Machine Operator Helper Relationship Specialty Start Date End Date Hari Oneill, DO [address] [facility] [place] [address] PCP - General Family Medicine 10/10/12 [place] [address] [place] [address] Specialty Glaze Handler Hematology/Oncology 05/20/18 Splitting Machine Operator Helper Relationship Specialty Start Date End Date Hari Oneill, DO [address] [facility] [place] [address] PCP - General Family Medicine 10/10/12 [place] [address] [place] [address] Specialty Glaze Handler Hematology/Oncology 05/20/18 Splitting Machine Operator Helper Relationship Specialty Start Date End Date Hari Oneill, DO [address] [facility] [place] [address] PCP - General Family Medicine 10/10/12 [place] [address] [place] [address] Specialty Glaze Handler Hematology/Oncology 05/20/18 Splitting Machine Operator Helper Relationship Specialty Start Date End Date Hari Oneill, DO [address] [facility] [place] [address] PCP - General Family Medicine 10/10/12 [place] [address] [place] [address] Specialty Glaze Handler Hematology/Oncology 05/20/18 Splitting Machine Operator Helper Relationship Specialty Start Date End Date Hari Oneill, DO [address] [place] [address] PCP - General Family Medicine 10/10/12 [place] [address] [place] [address] Specialty Glaze Handler Hematology/Oncology 05/20/18 Splitting Machine Operator Helper Relationship Specialty Start Date End Date Hari Oneill, DO [address] [facility] [place] [address] PCP - General Family Medicine 10/10/12 [place] [address] [place] [address] Specialty Glaze Handler Hematology/Oncology 05/20/18 Splitting Machine Operator Helper Relationship Specialty Start Date End Date Hari Oneill, DO [address] [facility] [place] [address] PCP - General Family Medicine 10/10/12 [place] [address] [place] [address] Specialty Glaze Handler Hematology/Oncology 05/20/18 Splitting Machine Operator Helper Relationship Specialty Start Date End Date Hari Oneill, DO [address] [facility] [place] [place] [address] PCP - General Family Medicine 10/10/12 Amelia Bennett, RN [address] [facility] [place] [address] Specialty Glaze Handler Hematology/Oncology 05/20/18 Splitting Machine Operator Helper Relationship Specialty Start Date End Date Hari Oneill, DO [address] [place] [address] PCP - General Family Medicine 10/10/12 Amelia Bennett, RN [address] [place] [address] Specialty Glaze Handler Hematology/Oncology 05/20/18 Splitting Machine Operator Helper Relationship Specialty Start Date End Date Hari Oneill, DO [address] [place] [address] PCP - General Family Medicine 10/10/12 Amelia Bennett, RN [address] [place] [address] Specialty Glaze Handler Hematology/Oncology 05/20/18 Splitting Machine Operator Helper Relationship Specialty Start Date End Date Hari Oneill, DO [address] [place] [address] PCP - General Family Medicine 10/10/12 Amelia Bennett, RN [address] [place] [address] Specialty Glaze Handler Hematology/Oncology 05/20/18 Splitting Machine Operator Helper Relationship Specialty Start Date End Date Hari Oneill, DO [address] [place] [address] PCP - General Family Medicine 10/10/12 Amelia Bennett, RN [address] [place] [address] Specialty Glaze Handler Hematology/Oncology 05/20/18 Splitting Machine Operator Helper Relationship Specialty Start Date End Date Hari Oneill, DO [address] [place] [address] PCP - General Family Medicine 10/10/12 Amelia Bennett, RN [address] [place] [address] Specialty Glaze Handler Hematology/Oncology 05/20/18 Splitting Machine Operator Helper Relationship Specialty Start Date End Date Hari Oneill, DO [address] [place] [address] PCP - General Family Medicine 10/10/12 Amelia Bennett, RN [address] [place] [address] Specialty Glaze Handler Hematology/Oncology 05/20/18 Splitting Machine Operator Helper Relationship Specialty Start Date End Date Hari Oneill, DO [address] [place] [address] PCP - General Family Medicine 10/10/12 Amelia Bennett, RN [address] [place] [address] Specialty Glaze Handler Hematology/Oncology 05/20/18 Splitting Machine Operator Helper Relationship Specialty Start Date End Date Hari Oneill, DO [address] [place] [address] PCP - General Family Medicine 10/10/12 Amelia Bennett, DARREN [address] [place] [address] Specialty Glaze Handler Hematology/Oncology 05/20/18 Splitting Machine Operator Helper Relationship Specialty Start Date End Date Hari Oneill DO [address] [place] [address] PCP - General Family Medicine 10/10/12 Amelia eBnnett, RN [address] [place] [address] Specialty Glaze Handler Hematology/Oncology 05/20/18 Splitting Machine Operator Helper Relationship Specialty Start Date End Date Hari Oneill DO [address] [place] [address] PCP - General Family Medicine 10/10/12 Amelia Bennett, RN [address] [place] [address] Specialty Glaze Handler Hematology/Oncology 05/20/18 Splitting Machine Operator Helper Relationship Specialty Start Date End Date Hari Oneill DO [address] [place] [address] PCP - General Family Medicine 10/10/12 Amelia Bennett, RN [address] [facility] [place] [address] Specialty Glaze Handler Hematology/Oncology 05/20/18 Splitting Machine Operator Helper Relationship Specialty Start Date End Date Hari Oneill DO [address] [facility] [place] [address] PCP - General Family Medicine 10/10/12 Amelia Bennett, RN [address] [facility] [place] [address] Specialty Glaze Handler Hematology/Oncology 05/20/18 Splitting Machine Operator Helper Relationship Specialty Start Date End Date Hari Oneill DO [address] [facility] [place] [address] PCP - General Family Medicine 10/10/12 Amelia Bennett, RN [address] [place] [address] Specialty Glaze Handler Hematology/Oncology 05/20/18 Splitting Machine Operator Helper Relationship Specialty Start Date End Date Hari Oneill DO [address] [facility] [place] [address] PCP - General Family Medicine 10/10/12 Amelia Bennett, DARREN [address] [facility] [place] [address] Specialty Glaze Handler Hematology/Oncology 05/20/18 Splitting Machine Operator Helper Relationship Specialty Start Date End Date Hari Oneill DO [address] [facility] [place] [address] PCP - General Family Medicine 10/10/12 Amelia Bennett, RN [address] [facility] [place] [address] Specialty Glaze Handler Hematology/Oncology 05/20/18 Splitting Machine Operator Helper Relationship Specialty Start Date End Date Hari Oneill DO [address] [facility] [place] [address] PCP - General Family Medicine 10/10/12 Amelia Bennett, RN [address] [place] [address] Specialty Glaze Handler Hematology/Oncology 05/20/18 Splitting Machine Operator Helper Relationship Specialty Start Date End Date Hari Oneill, [address] [place] [address] PCP - General Family Medicine 10/10/12 Amelia Bennett, RN [address] [facility] [place] [address] Specialty Glaze Handler Hematology/Oncology 05/20/18 Splitting Machine Operator Helper Relationship Specialty Start Date End Date Hari Oneill, [address] [facility] [place] [address] PCP - General Family Medicine 10/10/12 Amelia Bennett, RN [address] [facility] [place] [address] Specialty Glaze Handler Hematology/Oncology 05/20/18 Splitting Machine Operator Helper Relationship Specialty Start Date End Date Hari Oneill DO [address] [place] [address] PCP - General Family Medicine 10/10/12 Amelia Bennett, RN [address] [facility] [place] [address] Specialty Glaze Handler Hematology/Oncology 05/20/18 Splitting Machine Operator Helper Relationship Specialty Start Date End Date Hari Oneill DO [address] [place] [address] PCP - General Family Medicine 10/10/12 Splitting Machine Operator Helper Relationship Specialty Start Date End Date Hari Oneill DO [address] [facility] [place] [address] PCP - General Family Medicine 10/10/12 Splitting Machine Operator Helper Relationship Specialty Start Date End Date Hari Oneill DO [address] [facility] [place] [place] [address] PCP - General Family Medicine 10/10/12 Splitting Machine Operator Helper Relationship Specialty Start Date End Date Hari Oneill DO [address] [place] [address] PCP - General Family Medicine 10/10/12 Splitting Machine Operator Helper Relationship Specialty Start Date End Date Hari Oneill DO [address] [place] [address] PCP - General Family Medicine 10/10/12 Splitting Machine Operator Helper Relationship Specialty Start Date End Date Hari Oneill DO [address] [place] [address] PCP - General Family Medicine 10/10/12 Splitting Machine Operator Helper Relationship Specialty Start Date End Date Hari Oneill DO [address] [place] [address] PCP - General Family Medicine 10/10/12 Splitting Machine Operator Helper Relationship Specialty Start Date End Date Hari Oneill DO [address] [place] [address] PCP - General Family Medicine 10/10/12 Splitting Machine Operator Helper Relationship Specialty Start Date End Date Hari Oneill DO [address] [place] [address] PCP - General Family Medicine 10/10/12 Splitting Machine Operator Helper Relationship Specialty Start Date End Date Hari Oenill DO [address] [place] [address] PCP - General Family Medicine 10/10/12 Splitting Machine Operator Helper Relationship Specialty Start Date End Date Hari Oneill DO [address] [facility] [place] [address] PCP - General Family Medicine 10/10/12 Splitting Machine Operator Helper Relationship Specialty Start Date End Date Hari Oneill DO [address] [place] [address] PCP - General Family Medicine 10/10/12 Splitting Machine Operator Helper Relationship Specialty Start Date End Date Hari Oneill DO [address] [facility] [place] [address] PCP - General Family Medicine 10/10/12 Splitting Machine Operator Helper Relationship Specialty Start Date End Date Hari Oneill DO [address] [facility] [place] [address] PCP - General Family Medicine 10/10/12 Splitting Machine Operator Helper Relationship Specialty Start Date End Date Hari Oneill DO [address] [facility] [place] [address] PCP - General Family Medicine 10/10/12 Splitting Machine Operator Helper Relationship Specialty Start Date End Date Hari Oneill DO [address] [facility] [place] [address] PCP - General Family Medicine 10/10/12 Amelia Bennett RN [address] [facility] [place] [address] Specialty Glaze Handler Hematology/Oncology 05/20/18 05/23/23 Splitting Machine Operator Helper Relationship Specialty Start Date End Date Hari Oneill DO [address] [facility] [place] [address] PCP - General Family Medicine 10/10/12 Splitting Machine Operator Helper Relationship Specialty Start Date End Date Hari Oneill DO [address] [facility] [place] [address] PCP - General Family Medicine 10/10/12 Splitting Machine Operator Helper Relationship Specialty Start Date End Date Hari Oneill, [address] [place] [address] PCP - General Family Medicine 10/10/12 Amelia Bennett, DARREN [address] [place] [address] Specialty Glaze Handler Hematology/Oncology 05/20/18 05/23/23 Splitting Machine Operator Helper Relationship Specialty Start Date End Date Hari Oneill DO [address] [facility] [place] [address] PCP - General Family Medicine 10/10/12 Splitting Machine Operator Helper Relationship Specialty Start Date End Date Hari Oneill DO [address] [place] [address] PCP - General Family Medicine 10/10/12 Amelia Bennett RN [address] [facility] [place] [address] Specialty Glaze Handler Hematology/Oncology 05/20/18 05/23/23 Splitting Machine Operator Helper Relationship Specialty Start Date End Date Hari Oneill DO [address] [place] [address] PCP - General Family Medicine 10/10/12 Splitting Machine Operator Helper Relationship Specialty Start Date End Date Hari Oneill DO [address] [facility] [place] [address] PCP - General Family Medicine 10/10/12 Splitting Machine Operator Helper Relationship Specialty Start Date End Date Hari Oneill DO [address] [facility] [place] [address] PCP - General Family Medicine 10/10/12 Amelia Bennett, RN [address] [facility] [place] [address] Specialty Glaze Handler Hematology/Oncology 05/20/18 05/23/23 Splitting Machine Operator Helper Relationship Specialty Start Date End Date Hari Oneill DO [address] [facility] [place] [address] PCP - General Family Medicine 10/10/12 Splitting Machine Operator Helper Relationship Specialty Start Date End Date Hari Oneill DO [address] [facility] [place] [address] PCP - General Family Medicine 10/10/12 Splitting Machine Operator Helper Relationship Specialty Start Date End Date Hari Oneill DO [address] [facility] [place] [address] PCP - General Family Medicine 10/10/12 Splitting Machine Operator Helper Relationship Specialty Start Date End Date Hari Oneill DO [address] [facility] [place] [address] PCP - General Family Medicine 10/10/12 Splitting Machine Operator Helper Relationship Specialty Start Date End Date Hari Oneill DO [address] [facility] [place] [address] PCP - General Family Medicine 10/10/12 Splitting Machine Operator Helper Relationship Specialty Start Date End Date Hari Oneill DO [address] [facility] [place] [address] PCP - General Family Medicine 10/10/12 Splitting Machine Operator Helper Relationship Specialty Start Date End Date Hari Oneill, [address] [facility] [place] [address] PCP - General Family Medicine 10/10/12 Splitting Machine Operator Helper Relationship Specialty Start Date End Date Hari Oneill DO [address] [facility] [place] [address] PCP - General Family Medicine 10/10/12 Splitting Machine Operator Helper Relationship Specialty Start Date End Date Hari Oneill DO [address] [facility] [place] [address] PCP - General Family Medicine 10/10/12 Splitting Machine Operator Helper Relationship Specialty Start Date End Date Hari Oneill DO [address] [place] [address] PCP - General Family Medicine 10/10/12 Splitting Machine Operator Helper Relationship Specialty Start Date End Date Hari Oneill DO [address] [facility] [place] [address] PCP - General Family Medicine 10/10/12 Splitting Machine Operator Helper Relationship Specialty Start Date End Date Hari Oneill, [address] [place] [address] PCP - General Family Medicine 10/10/12 Dai Rivera, 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 [address] [place] [address] [employer] [facility] Family [facility] 07/13/24 Suyapa Lira, JONATHAN.PRODUCTION EXPERT [address] [facility] [place] [address] [employer] [facility] Family [facility] 07/13/24 Splitting Machine Operator Helper Relationship Specialty Start Date End Date Hari Oneill DO [address] [facility] [place] [address] PCP - General Family Medicine 10/10/12 Dai Rivera, 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 [address] [place] [address] [facility]24 [facility], 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 [address] [place] [address] [facility] 07/13/24 Splitting Machine Operator Helper Relationship Specialty Start Date End Date Hari Oneill DO [address] [facility] [place] [place] [address] PCP - General Family Medicine 10/10/12 Dai Rivera, 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 [address] [facility] [place] [address] [facility] 07/13/24 [facility], 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 [address] [place] [address] [facility] 07/13/24 Splitting Machine Operator Helper Relationship Specialty Start Date End Date Hari Oneill DO [address] [facility] [place] [address] PCP - General Family Medicine 10/10/12 Dai Rivera, 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 [address] [facility] [place] [address] [facility] 07/13/24 SorayaSuyapa, 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 [address] [facility] [address] [facility] 07/13/24 Splitting Machine Operator Helper Relationship Specialty Start Date End Date Hari Oneill DO [address] [facility] [address] PCP - General Family Medicine 10/10/12 Dai Rivera, 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 [address] [facility] [address] [facility] 07/13/24 Suyapa Lira, 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 [address] [place] [address] [facility] 07/13/24 Splitting Machine Operator Helper Relationship Specialty Start Date End Date Hari Oneill DO [address] [place] [address] PCP - General Family Medicine 10/10/12 Dai Rivera, 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 [address] [facility] [address] [facility] 07/13/24 Suyapa Lira, 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 [address] [facility] [place] [place] [address] [facility] 07/13/24 Splitting Machine Operator Helper Relationship Specialty Start Date End Date Hari Oneill DO [address] [place] [address] PCP - General Family Medicine 10/10/12 Dai Rivera, 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 [address] [place] [address] Metal Tank Erector Family [facility] 07/13/24 Suyapa Lira, 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 [address] [place] [address] [facility] 07/13/24 Splitting Machine Operator Helper Relationship Specialty Start Date End Date Hari Oneill DO [address] [place] [address] PCP - General Family Medicine 10/10/12 Dai Rivera, 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 [address] [place] [address] Metal Tank Erector Family [facility] 07/13/24 Suyapa Lira, 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 [address] [place] [address] [facility] 07/13/24 Splitting Machine Operator Helper Relationship Specialty Start Date End Date Hari Oneill DO [address] [place] [address] PCP - General Family Medicine 10/10/12 Dai Rivera, 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 [address] [place] [address] [facility] 07/13/24 Suyapa Lira, 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 [address] [place] [address] [facility] 07/13/24 Splitting Machine Operator Helper Relationship Specialty Start Date End Date Hari Oneill DO [address] [place] [address] PCP - General Family Medicine 10/10/12 Dai Rivera, 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 [address] [place] [address] [facility] 07/13/24 Suyapa Lira, 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 [address] [place] [address] [facility] 07/13/24 Splitting Machine Operator Helper Relationship Specialty Start Date End Date Hari Oneill DO [address] [place] [address] PCP - General Family Medicine 10/10/12 Dai Rivera, 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 [address] [place] [address] [facility] 07/13/24 Suyapa Lira, 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 [address] [place] [address] [facility] 07/13/24 Splitting Machine Operator Helper Relationship Specialty Start Date End Date Hari Oneill DO [address] [place] [address] PCP - General Family Medicine 10/10/12 Dai Rivera, 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 [address] [place] [address] [facility] 07/13/24 Suyapa Lira, 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 [address] [place] [address] [facility] 07/13/24 Splitting Machine Operator Helper Relationship Specialty Start Date End Date Hari Oneill DO [address] [facility] [address] PCP - General Family Medicine 10/10/12 Dai Rivera, 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 [address] [facility] [address] [facility] 07/13/24 [facility] CenterS[facility], 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 [address] [facility] [address] [facility] 07/13/24 Splitting Machine Operator Helper Relationship Specialty Start Date End Date Hari Oneill DO [address] [place] [address] PCP - General Family Medicine 10/10/12 Dai Rivera, 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 [address] [facility] [place] [address] [facility] 07/13/24 [facility], 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 [address] [facility] [place] [address] [facility] 07/13/24 Splitting Machine Operator Helper Relationship Specialty Start Date End Date Hari Oneill DO [address] [place] [address] PCP - General Family Medicine 10/10/12 Dai Rivera, 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 [address] [place] [address] [facility] 07/13/24 SorayaSuyapa duffy, 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 [address] [facility] [place] [address] [facility] 07/13/24 Splitting Machine Operator Helper Relationship Specialty Start Date End Date Hari Oneill DO [address] [facility] [place] [address] PCP - General Family Medicine 10/10/12 [facility] CenterS[facility], 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 [address] [facility] [place] [address] [employer] [facility] 07/13/24 Splitting Machine Operator Helper Relationship Specialty Start Date End Date Hari Oneill DO [address] [facility] [place] [address] PCP - General Family Medicine 10/10/12 Dai Rivera, 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 [address] [facility] [place] [address] [facility] 07/13/24 10/24/24 SorayaSuyapa, 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 [address] [facility] [place] [address] [facility] 07/13/24 Splitting Machine Operator Helper Relationship Specialty Start Date End Date Hari Oneill DO [address] [facility] [place] [address] PCP - General Family Medicine 10/10/12 Suyapa Lira, 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 [address] [facility] [place] [address] [employer] [facility] 07/13/24 Splitting Machine Operator Helper Relationship Specialty Start Date End Date Hari Oneill DO [address] [facility] [place] [address] PCP - General Family Medicine 10/10/12 [facility] CenterS[facility], 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 [address] [facility] [place] [address] Metal Tank Erector Family [facility] 07/13/24 Splitting Machine Operator Helper Relationship Specialty Start Date End Date Hari Oneill DO [address] [facility] [place] [address] PCP - General Family Medicine 10/10/12 [facility], 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 [address] [facility] [place] [address] [facility] 07/[facility]/24 Splitting Machine Operator Helper Relationship Specialty Start Date End Date Hari Oneill DO [address] [facility] [place] [address] PCP - General Family Medicine 10/10/12 [facility], 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 [address] [facility] [place] [address] Metal Tank Erector Family [facility] 07/13/24 Splitting Machine Operator Helper Relationship Specialty Start Date End Date Hari Oneill DO [address] [facility] [place] [address] PCP - General Family Medicine 10/10/12 [facility], 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 [address] [facility] [place] [address] Metal Tank Erector Family [facility] 07/13/24 Paulie Geronimo, 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 [address] [place] [address] [facility] 01/19/25 Splitting Machine Operator Helper Relationship Specialty Start Date End Date Hari Oneill DO [address] [place], [place] [address] PCP - General Family Medicine 10/10/12 [facility], 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 [address] [place] [address] [facility] 07/13/24 Paulie Geronimo, 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 [address] [place] [address] [facility] 01/19/25 Team Status: Active Member Role/Relationship Status Dates Dr. Hari Oneill DO Primary Care Provider Active Team Status: Active Member Role/Relationship Status Dates Dr. Hari Oneill DO Primary Care Provider Active Start: February 27, 2025 Dr. Khang Osuna MD Emergency Provider Active Start: February 27, 2025 Dr. Lisa Mike MD Attending Provider Active Start: February 27, 2025 Team Status: Active Member Role/Relationship Status Dates Dr. Hari Oneill DO Primary Care Provider Active Start: February 27, 2025 Dr. Khang Osuna MD Emergency Provider Active Start: February 27, 2025 Dr. Lisa Mike MD Admit Provider Active Star t: February 27, 2025 Dr. 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 Hari Oneill DO Primary Care Provider Active Start: February 27, 2025 End: March 02, 2025 Dr. Khang Osuna MD Emergency Provider Active Start: February 27, 2025 End: March 02, 2025 Dr. Lisa Mike MD Admit Provider Active Star t: February 27, 2025 End: March 02, 2025 Dr. Lisa Mike MD Other Provider Active Star t: February 27, 2025 End: March 02, 2025 Dr. Danae Stanton MD Attending Provider Active Start: February 27, 2025 End: March 02, 2025 Dr. Yoon Kim MD Other Provider Active S tart: February 27, 2025 End: March 02, 2025 Team Status: Active Member Role/Relationship Status Dates Dr. Hari Oneill DO Primary Care Provider Active Start: February 27, 2025 Dr. Khang Osuna MD Emergency Provider Active Start: February 27, 2025 Dr. Lisa Mike MD Admit Provider Active Star t: February 27, 2025 Dr. Lisa Mike MD Other Provider Active Star t: February 27, 2025 Dr. Danae Stanton MD Other Provider Active St art: February 27, 2025 Dr. Yoon Kim MD Other Provider Active S tart: February 27, 2025 Dr. Luis A Singh DO Attending Provider Active Start: February 27, 2025 Team Status: Active Member Role/Relationship Status Dates Dr. Hari Oneill DO Primary Care Provider Active Start: February 28, 2025 Dr. Khang Osuna MD Emergency Provider Active Start: February 28, 2025 Dr. Lisa Mike MD Admit Provider Active Star t: February 28, 2025 Dr. Lisa Mike MD Other Provider Active Star t: February 28, 2025 Dr. Danae Stanton MD Attending Provider Active Start: February 28, 2025 Dr. Danae Stanton MD Other Provider Active St art: February 28, 2025 Team Status: Active Member Role/Relationship Status Dates Dr. Hari Oneill DO Primary Care Provider Active Start: February 28, 2025 Dr. Khang Osuna MD Emergency Provider Active Start: February 28, 2025 Dr. Lisa Mike MD Admit Provider Active Star t: February 28, 2025 Dr. Lisa Mike MD Other Provider Active Star t: February 28, 2025 Dr. Danae Stanton MD Other Provider Active St art: February 28, 2025 Dr. Yoon Kim MD Attending Provider Active Start: February 28, 2025 Dr. Yoon Kim MD Other Provider Active S tart: February 28, 2025 Team Status: Active Member Role/Relationship Status Dates Dr. Hari Oneill DO Primary Care Provider Active Start: March 01, 2025 Dr. Khang Osuna MD Emergency Provider Active Start: March 01, 2025 Dr. Lisa Mike MD Admit Provider Active Star t: March 01, 2025 Dr. Lisa iMke MD Other Provider Active Star t: March 01, 2025 Dr. Danae Stanton MD Attending Provider Active Start: March 01, 2025 Dr. Danae Stanton MD Other Provider Active St art: March 01, 2025 Dr. Yoon Kim MD Other Provider Active S tart: March 01, 2025 Team Status: Active Member Role/Relationship Status Dates Dr. Hari Oneill DO Primary Care Provider Active Start: March 01, 2025 Dr. Khang Osuna MD Emergency Provider Active Start: March 01, 2025 Dr. Lisa Mike MD Admit Provider Active Star t: March 01, 2025 Dr. Lisa Mike MD Other Provider Active Star t: March 01, 2025 Dr. Danae Stanton MD Other Provider Active St art: March 01, 2025 Dr. Yoon Kim MD Attending Provider Active Start: March 01, 2025 Dr. Yoon Kim MD Other Provider Active S tart: March 01, 2025 Team Status: Active Member Role/Relationship Status Dates Dr. Hari Oneill DO Primary Care Provider Active Start: March 02, 2025 Dr. Khang Osuna MD Emergency Provider Active Start: March 02, 2025 Dr. Lisa Mike MD Admit Provider Active Star t: March 02, 2025 Dr. Lisa Mike MD Other Provider Active Star t: March 02, 2025 Dr. Danae Stanton MD Other Provider Active St art: March 02, 2025 Dr. Yoon Kim MD Other Provider Active S tart: March 02, 2025 Dinah CISNEROS PAJessikaC Attending Provider Active Start: March 02, 2025 Team Status: Active Member Role/Relationship Status Dates Dr. Hari Oneill DO Primary Care Provider Active Start: March 02, 2025 Dr. Khang Osuna MD Emergency Provider Active Start: March 02, 2025 Dr. Lisa Mike MD Admit Provider Active Star t: March 02, 2025 Dr. Lisa Mike MD Other Provider Active Star t: March 02, 2025 Dr. Danae Stanton MD Attending Provider Active Start: March 02, 2025 Dr. Danae Stanton MD Other Provider Active St art: March 02, 2025 Dr. 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 Hari Oneill DO Primary Care Provider Active Start: March 05, 2025 Rustam Warren MD Emergency Provider Active Star t: March 05, 2025 Dr. Duncan Rashid , DO Admit Provider Active Start: March 05, 2025 Dr. Duncan Rashid DO Attending Provider Active Start: March 05, 2025 Team Status: Active Member Role/Relationship Status Dates Dr. Hari Oneill DO Primary Care Provider Active Start: March 05, 2025 Rustam Warren MD Emergency Provider Active Star t: March 05, 2025 Dr. Dnucan Rashid DO Admit Provider Active Start: March 05, 2025 Dr. Duncan Rashid DO Attending Provider Active Start: March 05, 2025 Dr. Duncan Rashid DO Other Provider Active Start: March 05, 2025 Team Status: Active Member Role/Relationship Status Dates Dr. Hari Oneill DO Primary Care Provider Active Start: March 06, 2025 Rustam Warren MD Emergency Provider Active Star t: March 06, 2025 Dr. Duncan Rashid DO Admit Provider Active Start: March 06, 2025 Dr. Duncan Rashid DO Other Provider Active Start: March 06, 2025 Dr. Danae Stanton MD Attending Provider Active Start: March 06, 2025 Dr. Danae Stanton MD Other Provider Active St art: March 06, 2025 Team Status: Active Member Role/Relationship Status Dates Dr. Hari Oneill DO Primary Care Provider Active Start: March 06, 2025 Rustam Warren MD Emergency Provider Active Star t: March 06, 2025 Dr. Duncan Rashid DO Admit Provider Active Start: March 06, 2025 Dr. Duncan Rashid DO Other Provider Active Start: March 06, 2025 Dr. Danae Stanton MD Other Provider Active St art: March 06, 2025 Dr. Luis A Singh DO Attending Provider Active Start: March 06, 2025 Team Status: Active Member Role/Relationship Status Dates Dr. Hari Oneill DO Primary Care Provider Active Start: March 07, 2025 Rustam Warren MD Emergency Provider Active Star t: March 07, 2025 Dr. Duncan Rashid DO Admit Provider Active Start: March 07, 2025 Dr. Duncan Rashid DO Other Provider Active Start: March 07, 2025 Dr. Danae Stanton MD Attending Provider Active Start: March 07, 2025 Dr. Danae Stanton MD Other Provider Active St art: March 07, 2025 Team Status: Active Member Role/Relationship Status Dates Dr. Hari Oneill DO Primary Care Provider Active Start: March 07, 2025 Rustam Warren MD Emergency Provider Active Star t: March 07, 2025 Dr. Duncan Rashid DO Admit Provider Active Start: March 07, 2025 Dr. Duncan Rashid DO Other Provider Active Start: March 07, 2025 Dr. Danae Stanton MD Other Provider Active St art: March 07, 2025 Dr. Luis A Singh , Attending Provider Active Start: March 07, 2025 Team Status: Active Member Role/Relationship Status Dates Dr. Hari Oneill DO Primary Care Provider Active Start: March 08, 2025 Rustam Warren MD Emergency Provider Active Star t: March 08, 2025 Dr. Duncan Rashid DO Admit Provider Active Start: March 08, 2025 Dr. Duncan Rashid DO Other Provider Active Start: March 08, 2025 Dr. Danae Stanton MD Attending Provider Active Start: March 08, 2025 Dr. Danae Stanton MD Other Provider Active St art: March 08, 2025 Team Status: Inactive Member Role/Relationship Status Dates Dr. Hari Oneill DO Primary Care Provider Active Start: March 08, 2025 End: March 12, 2025 Rustam Warren MD Emergency Provider Active Star t: March 08, 2025 End: March 12, 2025 Dr. Duncan Rashid DO Admit Provider Active Start: March 08, 2025 End: March 12, 2025 Dr. Duncan Rashid DO Other Provider Active Start: March 08, 2025 End: March 12, 2025 Dr. Danae Stanton MD Other Provider Active St art: March 08, 2025 End: March 12, 2025 Dr. Carlton Davis MD Attending Provider Active Start: March 08, 2025 End: March 12, 2025 Team Status: Active Member Role/Relationship Status Dates Dr. Hari Oneill DO Primary Care Provider Active Start: March 09, 2025 Rustam Warren MD Emergency Provider Active Star t: March 09, 2025 Dr. Duncan Rashid DO Admit Provider Active Start: March 09, 2025 Dr. Duncan Rashid DO Attending Provider Active Start: March 09, 2025 Dr. Duncan Rashid DO Other Provider Active Start: March 09, 2025 Dr. Danae Stanton MD Other Provider Active St art: March 09, 2025 Team Status: Active Member Role/Relationship Status Dates Dr. aHri Oneill DO Primary Care Provider Active Start: March 09, 2025 Rustam Warren MD Emergency Provider Active Star t: March 09, 2025 Dr. Duncan Rashid DO Admit Provider Active Start: March 09, 2025 Dr. Duncan Rashid DO Other Provider Active Start: March 09, 2025 Dr. Danae Stanton MD Other Provider Active St art: March 09, 2025 Dr. Luis A Singh DO Attending Provider Active Start: March 09, 2025 Team Status: Active Member Role/Relationship Status Dates Dr. Hari Oneill DO Primary Care Provider Active Start: March 10, 2025 Rustam Warren MD Emergency Provider Active Star t: March 10, 2025 Dr. Duncan Rashid DO Admit Provider Active Start: March 10, 2025 Dr. Duncan Rashid DO Other Provider Active Start: March 10, 2025 Dr. Danae Stanton MD Other Provider Active St art: March 10, 2025 Dr. Carlton Davis MD Attending Provider Active Start: March 10, 2025 Dr. Carlton Davis MD Other Provider Active Star t: March 10, 2025 Team Status: Active Member Role/Relationship Status Dates Dr. Hari Oneill DO Primary Care Provider Active Start: March 10, 2025 Dr. Luis A Singh DO Attending Provider Active Start: March 10, 2025 Team Status: Active Member Role/Relationship Status Dates Dr. Hari Oneill DO Primary Care Provider Active Start: March 11, 2025 Rustam Warren MD Emergency Provider Active Star t: March 11, 2025 Dr. Duncan Rashid DO Admit Provider Active Start: March 11, 2025 Dr. Duncan Rashid DO Other Provider Active Start: March 11, 2025 Dr. Danae Stanton MD Other Provider Active St art: March 11, 2025 Dr. Carlton Davis MD Attending Provider Active Start: March 11, 2025 Dr. Carlton Davis MD Other Provider Active Star t: March 11, 2025 Team Status: Active Member Role/Relationship Status Dates Dr. Hari Oneill DO Primary Care Provider Active Start: March 11, 2025 Rustam Warren MD Emergency Provider Active Star t: March 11, 2025 Dr. Duncan Rashid DO Admit Provider Active Start: March 11, 2025 Dr. Duncan Rashid DO Other Provider Active Start: March 11, 2025 Dr. Danae Stanton MD Other Provider Active St art: March 11, 2025 Dr. Carlton Davis MD Other Provider Active Star t: March 11, 2025 Dr. Luis A Singh DO Attending Provider Active Start: March 11, 2025 Team Status: Active Member Role/Relationship Status Dates Dr. Hari Oneill DO Primary Care Provider Active Start: March 12, 2025 Rustam Warren MD Emergency Provider Active Star t: March 12, 2025 Dr. Duncan Rashid DO Admit Provider Active Start: March 12, 2025 Dr. Duncan Rashid DO Other Provider Active Start: March 12, 2025 Dr. Danae Stanton MD Other Provider Active St art: March 12, 2025 Dr. Carlton Davis MD Attending Provider Active Start: March 12, 2025 Dr. 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 Operator Helper Relationship Specialty Start Date End Date Hari Oneill DO [address] [place], [place] [id number] PCP - General Family Medicine 10/10/12 Suyapa Lira, 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 [address] [place], [place] [address] [facility] 07/13/24 Paulie Geronimo, 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 [address] [place], [place] [id number] [facility] 01/19/25 Splitting Machine Operator Helper Relationship Specialty Start Date End Date Hari Oneill DO [address] [place], [place] [id number] PCP - General Family Medicine 10/10/12 Suyapa Lira, 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 [address] [place], [place] [id number] [facility] 07/13/24 Paulie Geronimo, 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 [address] [place], [place] [id number] [facility] 01/19/25 Goals (unrecognized section and content) Goals may be documented in a n alternate sectionGoals may be documented in an alternate section (unrecognized sect ion and content) No Status Records FoundNo Status Records FoundNo Status Records FoundNo Status Records Found INFORMATION SOURCE (unrecogn ized section and content) DATE CREATED AUTHOR 06/13/2024 [facility] DATE CREATED AUTHOR AUTHOR'S ORGANIZ ATION 02/18/2025 [facility] DATE CREATED AUTHOR AUTHOR'S ORGANIZ ATION 03/20/2025 [facility] DATE CREATED AUTHOR AUTHOR'S ORGANIZ ATION 03/20/2025 [facility] FOR RECORDS PERTAINING TO PATIENTS WHO ARE OR HAVE BEEN ENROLLED IN A CHEMICAL DEPENDENCY/SUBSTANCEABUSE PROGRAM, SOME INFORMATION MAY BE OMITTED. This clinical summary was aggregated from multiple sources. Caution should be exercised in using it in the provision of clinical care. This summary normalizes information from multiple sources, and as a consequence, information in this document may materially change the coding, format and clinical context of patient data. In addition, data may be omitted in some cases. CLINICAL DECISIONS SHOULD BE BASED ON THE PRIMARY CLINICAL RECORDS. [facility] [facility]. provides no warranty or guarantee of the accuracy or completeness of information in this document.
[2025-03-22 00:08] LABS: Hematocrit 35.7 % (40-54); Hemoglobin 11.9 g/dL (13.0-16.5); Immature Granulocytes Count 0.100 X10^3/uL (0.0-0.0); Mean Corp Hgb Conc 33.3 g/dL (32-36); Mean Corpuscular Volume 88.6 fL (80-94); Mean Platelet Vol. 9.9 fl (6.2-12.0); NRBC Flagged by Analyzer 0 % (0-5); Platelet Count 100 K/mm3 (150-450); RBC Distribution Width CV 14.2 % (11.6-14.6); RBC Distribution Width SD 46.0 fl (35.1-43.9); Red Blood Count 4.03 M/mm3 (4.6-6.2); White Blood Count 8.2 K/mm3 (4.4-11.0)
[2025-03-22 00:11] LABS: AST(SGOT) 23 U/L (<=37); Alanine Aminotransfer ALT/SGPT 26 U/L (<=46); Albumin, Serum 4.1 g/dL (3.4-4.8); Alkaline Phosphatase 138 U/L (40-129); Anion Gap 16 (5-15); BUN 18 mg/dL (4-19); BUN/Creat Ratio 16.4 RATIO (10-20); Calcium,Total 8.8 mg/dL (7.6-11.0); Carbon Dioxide 21.9 mmol/L (21.0-32.0); Chloride 97 mmol/L (98-108); Estimated Creatinine Clearance 87.27 ml/min (50-250); Globulin 2.8 g/dL (2.2-4.2); Glucose 105 mg/dL (70-99); Lipase 50 U/L (13-75); Potassium 2.9 mmol/L (3.3-5.1)
--- NOTE | 2025-03-22 00:57 | ED.VIS.GI ---
HPI HPI - GI History of Present Illness Chief Complaint: Abd Pain Informant: patient and EMS Narrative Narrative: 69-year-old male states he is here because of an abdominal infection that he feels he has had for this past week. When I asked him about what makes him think that, he yells at the examiner and is very angry. He states he has a lot of nausea, when I ask him about where his pain is and what it feels like, he just keeps responding that he has a lot of nausea and will not answer the question, and seems to be at this point somewhat confused. He states that he cannot bear weight because of pain but he cannot tell me where except he keeps saying his stomach. He states he is too weak to stand as well and not doing well at home. States he lives by himself. No one is here with him to help provide history and it is 1 AM. [facility] Medical History (Updated 03/22/25 @ 05:[address] Khang Osuna MD) Seizures Loss of one eye Wears glasses Cancer Thyroid disease Arthritis Prostate disease Bladder disease Low iron High cholesterol Diarrhea Gastric reflux Non-smoker History of pain when walking Heart murmur Localized swelling of both lower legs Abnormal biliary HIDA scan Anxiety and depression HTN (hypertension) History of DVT of lower extremity Seizure disorder Home Medications ?Medication ?Instructions ?Recorded ?Last Taken ?Type lamotrigine 200 mg tablet 200 mg PO BID SEIZURES 03/12/14 03/21/24 History (Lamictal) lacosamide 200 mg tablet 200 mg PO BID SEIZURES 09/17/19 03/04/25 History zonisamide 100 mg capsule 100 mg PO BID SEIZURES 09/17/19 03/20/24 History warfarin 7.5 mg tablet 7.5 mg PO DAILY BLOOD THINNER 09/12/21 03/16/24 History levetiracetam 750 mg tablet 1,500 mg PO BID SEIZURES 03/11/24 03/21/24 History levothyroxine 88 mcg tablet 88 mcg PO DAILY THYROID 03/11/24 03/21/24 History furosemide 40 mg tablet 20 mg PO DAILY water pill 03/19/24 Unknown History ibuprofen 600 mg tablet 600 mg PO Q6H PRN fever or pain 03/21/24 03/04/25 Rx #20 tabs potassium chloride 20 mEq/15 mL 10 meq PO DAILY supplement 02/27/25 Unknown History oral liquid tamsulosin 0.4 mg capsule 0.4 mg PO QHS prostate 02/27/25 Unknown History amoxicillin 875 mg-potassium 1 tab PO BID 10 days #20 tabs 03/12/25 Unknown Rx clavulanate 125 mg tablet metoclopramide HCl 5 mg tablet 5 mg PO Q6H 30 days #120 tabs 03/12/25 Unknown Rx potassium, sodium phosphates 280 1 packet PO BID 10 days #20 ea 03/12/25 Unknown Rx mg-160 mg-250 mg oral powder packet pyridostigmine bromide 30 mg tablet 30 mg PO DAILY #30 tabs 03/12/25 Unknown Rx Allergy/AdvReac Type Severity Reaction Status Date / Time No Known Allergies Allergy Verified 03/21/25 23:38 Surgical History Hx of colonoscopy History of vascular access device Hx of vascular surgery Hx of left cataract extraction Social History household members: spouse Smoking Status: Never smoker ROS ROS ED Review of Systems ROS Unobtainable: due to encephalopathy Eyes Eyes: Denies change in vision or diplopia ENT ENT ED: Denies rhinorrhea or sore throat Cardiovascular Cardiovascular: Denies chest pain or palpitations Respiratory/Chest Respiratory/Chest: Denies cough or dyspnea Gastrointestinal Gastrointestinal: Reports abdominal pain and nausea; Denies diarrhea or vomiting Musculoskeletal Musculoskeletal: Denies back pain or neck pain Integumentary Denies abscess or rash Neurologic Neurologic: Denies headache(s), paresthesias or weakness EXAM Physical Exam Const Vital Signs: 03/21/25 23:37 03/22/25 01:37 03/22/25 02:35 Temperature 98.6 F Temperature Source Temporal Pulse Rate 91 71 81 Respiratory Rate 18 16 19 H Blood Pressure 146/84 H 145/80 H Blood Pressure Mean 104 101 Pulse Ox 97 100 100 Oxygen Delivery Method Room Air Room Air 03/22/25 04:00 Temperature Temperature Source Pulse Rate 79 Respiratory Rate 15 Blood Pressure 116/61 Blood Pressure Mean 79 Pulse Ox 97 Oxygen Delivery Method Positive well nourished, well developed and obese General Appearance ED: well developed and NAD Nutritional Appearance: obese HEENT Reports moist mucous membranes normocephalic and atraumatic Eyes PERRL and EOMs intact bilaterally Neck full ROM and supple Resp normal respiratory effort and clear to auscultation bilaterally Cardio regular rate, regular rhythm and no murmurs GI GI Narrative: Distended but nontender for the most part, mild discomfort subjectively with palpation suprapubic only no pulsatile masses Auscultation: normoactive bowel sounds Palpation: soft Back/Spine no CVA tenderness General Back: other FROM Extremity normal to inspection General Extremety ED: Yes edema; Negative for pulses abnormal or tenderness General Extremity: edema bilateral lower extremity Details: severe (With changes of chronic stasis dermatitis bilateral lower legs, no tenderness, lots of scabbing.); Negative for pulses abnormal Neuro CN's II-XII intact bilaterally and no sensory deficits noted Neuro Narrative: Moves all 4 extremities. Disoriented, thinks it is 1924 but oriented to the month and person and place otherwise. Sensorium / Orientation: awake and alert Motor Exam: general weakness Psych Attitude: agitated Skin no rashes or lesions noted and no wounds Skin Narrative: No rashes other than chronic stasis dermatitis-appearance scabbing on both lower legs. MDM MDM MDM Narrative Medical decision making narrative: Oh basic labs show that his potassium is 2.9, my suspicion is that this is related to the furosemide that he is on. I reviewed some old records, he had a CT a little over 2 weeks ago with IV contrast of the abdomen/pelvis that showed a solitary gallstone that was confirmed by an ultrasound that showed noes evidence of cholecystitis. He really is not having any tenderness in his right upper quadrant right now, and his liver enzymes are normal including bilirubin, so I do not think he has acute cholecystitis or cholangitis here causing his confusion but he definitely seems disoriented. He tells me that he is laying in his own urine and he needs changed. Urinalysis obtained by nurses prior to my evaluation shows no evidence of urinary infection, he has chronic anemia no leukocytosis, I am sending him for a chest x-ray, EKG and cardiac workup, and a CT of the head. Other than enlarged stomach bubble versus colonic air, on my interpretation is 1 view chest x-ray is unremarkable above the diaphragm. EKG is normal, to switch to troponin measurements are slightly nonspecifically elevated but trending down, CT of the head is unremarkable I reviewed the images and the report which I agree with, and CT of the abdomen/pelvis again shows his gallbladder neck stone, and significantly distended large bowel, this may be consistent with colonic ileus on my interpretation. I reviewed the radiology interpretation once it was available, as there was significant delay approximately 5 hours or more after obtaining the imaging, showing lots of chronic previously-appearing abnormalities. Unclear etiology but none of this appears to be acutely surgical. Discussed with hospitalist for admission and further evaluation treatment. We did start replacing his potassium here in the ED which may explain his generalized weakness but not necessarily his confusion. He apparently has a history of gastroparesis which may also be playing a part in potassium loss. Has not been vomiting in the ED. History & Record Review Additional record(s) reviewed:: Other (CT A/P, GB ultrasound from 03/05/2025; prior existing EMR diagnosis of abnormal biliary HIDA scan, but those images/results are not available) Lab Data Attestation: I reviewed the patient's lab results. Labs: Laboratory Results - last 24 hr 03/21/25 03/21/25 03/22/25 23:15 23:46 02:40 WBC 8.2 RBC 4.03 L Hgb 11.9 L Hct 35.7 L MCV 88.6 MCH 29.5 MCHC 33.3 RDW Std Deviation 46.0 H RDW Coeff of Vaishnavi 14.2 Plt Count 100 L MPV 9.9 Immature Gran % (Auto) 1.200 H Neut % (Auto) 65.2 Lymph % (Auto) 21.3 Power % (Auto) 8.7 Eos % (Auto) 3.4 Baso % (Auto) 0.2 Absolute Neuts (auto) 5.4 Absolute Lymphs (auto) 1.75 Nucleated RBC % 0 Sodium 134 Potassium 2.9 L Chloride 97 L Carbon Dioxide 21.9 Anion Gap 16 H BUN 18 Creatinine 1.07 Estim Creat Clear Calc 87.27 Est GFR (MDRD) Non-Af 74 BUN/Creatinine Ratio 16.4 Glucose 105 H Calcium 8.8 Total Bilirubin 0.40 AST 23 ALT 26 Alkaline Phosphatase 138 H Troponin T High Sens 28 H Troponin T Hi Sens 2 Hr 25 H Total Protein 6.9 Albumin 4.1 Globulin 2.8 Albumin/Globulin Ratio 1.5 Lipase 50 TSH 0.428 Urine Color Yellow Urine Clarity Clear Urine pH 6.0 Ur Specific [place] 1.020 Urine Protein Negative Urine Glucose (UA) Normal Urine Ketones Negative Urine Occult Blood Negative Urine Nitrite Negative Urine Bilirubin Negative Urine Urobilinogen Normal Ur Leukocyte Esterase Negative Urine RBC 0 SEEN Urine WBC 0 SEEN Ur Squamous Epith Cells 0 SEEN Urine Bacteria 0 SEEN Urine Mucus 0 SEEN Radiography Diagnostic Testing: Clinical Impression(s) from Imaging Studies Abdomen/Pelvis CT 03/22/25 01:45 IMPRESSION: Unchanged narrowing of the mid aspect of the sigmoid colon, possibly secondary to spasm and/or stricture. Again is noted significant gaseous distention of the transverse colon. It measures 12.9 cm in its largest transverse dimension on the current exam without perforation or pneumatosis coli. Unchanged prominent venous collaterals in the anterior abdominal davis. Unchanged retroperitoneal lymphadenopathy with the largest lymph node measuring 1.3 cm. Unchanged mild bilateral hydroureteronephrosis, probably reflux from distended bladder. Mild bilateral basilar atelectatic pulmonary changes. Unremarkable IVC filter. Unchanged moderate gastroparesis. Unchanged mild diffuse thickening of the stomach, probably gastritis. Unchanged impacted gallstone at the neck of the distended gallbladder without definite CT evidence of acute cholecystitis. Chronic changes of mesenteric panniculitis, unchanged. [facility] 03/22/25 01:45 IMPRESSION: No CT evidence for acute brain abnormality. Reading [facility] Rhythm Strip Rhythm Strip: Sinus Rhythm Rate: 85 Ectopy: None EKG Initial EKG: Attestation: I personally reviewed and interpreted this EKG as follows: Interpretation: Sinus Rhythm and No Acute Injury Pattern Comments: Nml axis & intervals; nml EKG Management Discussion w/another healthcare provider: Hospitalist Discharge Plan Dx/Rx/DC Orders Clinical Impression: Acute hypokalemia, Acute encephalopathy, Debility, Colon distention, Warfarin anticoagulation, Mesenteric panniculitis Disposition Disposition: Acute Care [facility]
[2025-03-22 01:32] LABS: Troponin T High Sensitivity 28 ng/L (<=22)
--- NOTE | 2025-03-22 01:45 | CT_ITS ---
PROCEDURE: BRAIN/HEAD WITHOUT CONTRAST 03/22/2025 REASON FOR EXAM: CONFUSION TECHNIQUE: BRAIN/HEAD WITHOUT CONTRAST Coronal and Sagittal reconstruction series were provided. One or more dose reduction techniques were used (e.g., Automated exposure control, adjustment of the mA and/or kV according to patient size, use of iterative reconstruction technique. RADIATION DOSE SUMMARY: CTDlvol: 24.18 mGy DLP: 1389 mGycm COMPARISON: None. FINDINGS: Mild diffuse cortical atrophy, commensurate with the patient's age. Scattered hypodense foci in the periventricular and subcortical white matter suggestive of chronic ischemic white matter disease. Normal size of the ventricles and extra-axial spaces for the patient's age. Normal basal ganglia and thalami. Normal brainstem. Normal cerebellum. There is no demonstrated extra-axial, intraparenchymal, or intraventricular hemorrhage. There are no findings of an acute ischemic infarction. Normal calvarium. There is no demonstrated fracture. Normal soft tissue structures. Normal visualized paranasal sinuses. CT/Brain/Head without Contrast IMPRESSION: No CT evidence for acute brain abnormality. Reading [facility]
--- NOTE | 2025-03-22 01:45 | CT_ITS ---
PROCEDURE: ABDOMEN/PELVIS WITHOUT CONT 03/22/2025 REASON FOR EXAM: PAIN, NAUSEA, WEAKNESS; DISTENDED, NONTENDER TECHNIQUE: ABDOMEN/PELVIS WITHOUT CONT Noncontrast technique limits evaluation of the abdominal and pelvic viscera. Coronal and Sagittal reconstruction series were provided. One or more dose reduction techniques were used (e.g., Automated exposure control, adjustment of the mA and/or kV according to patient size, use of iterative reconstruction technique). RADIATION DOSE SUMMARY: CTDlvol: 24.18 mGy DLP: 1389 mGycm COMPARISON: CT scan on 03/05/2025. FINDINGS: Unchanged narrowing of the mid aspect of the sigmoid colon, possibly secondary to spasm and/or stricture. Again is noted significant gaseous distention of the transverse colon. It measures 12.9 cm in its largest transverse dimension on the current exam without perforation or pneumatosis coli. Unchanged prominent venous collaterals in the anterior abdominal davis. Unchanged retroperitoneal lymphadenopathy with the largest lymph node measuring 1.3 cm. Unchanged mild bilateral hydroureteronephrosis, probably reflux from distended bladder. Mild bilateral basilar atelectatic pulmonary changes. Unremarkable IVC filter. Unchanged moderate gastroparesis. Unchanged mild diffuse thickening of the stomach, probably gastritis. Unchanged impacted gallstone at the neck of the distended gallbladder without definite CT evidence of acute cholecystitis. Chronic changes of mesenteric panniculitis, unchanged. Normal unenhanced liver. Normal extrahepatic biliary system. Normal unenhanced spleen. Normal pancreas. Normal bilateral adrenal glands. Normal size of the right kidney. There is no right renal mass. There are no right renal calculi. Normal size of the left kidney. There is no left renal mass. There are no left renal calculi. Normal small intestine. The appendix is visualized and appears normal. There is no demonstrated peritoneal fluid. Calcified atheromatous plaques of the abdominal aorta. There is no pelvic mass lesion. There is no pelvic fluid. CT/Abdomen/Pelvis without Cont IMPRESSION: Unchanged narrowing of the mid aspect of the sigmoid colon, possibly secondary to spasm and/or stricture. Again is noted significant gaseous distention of the transverse colon. It measu res 12.9 cm in its largest transverse dimension on the current exam without perforation or pneumatosis coli. Unchanged prominent venous collaterals in the anterior abdominal davis. Unchanged retroperitoneal lymphadenopathy with the largest lymph node measuring 1.3 cm. Unchanged mild bilateral hydroureteronephrosis, probably reflux from distended bladder. Mild bilateral basilar atelectatic pulmonary changes. Unremarkable IVC filter. Unchanged moderate gastroparesis. Unchanged mild diffuse thickening of the stomach, probably gastritis. Unchanged impacted gallstone at the neck of the distended gallbladder without d efinite CT evidence of acute cholecystitis. Chronic changes of mesenteric panniculitis, unchanged. Reading Location[facility]
--- NOTE | 2025-03-22 02:00 | RAD_ITS ---
PROCEDURE: CHEST 1 VIEW (PORTABLE) 03/22/2025 REASON FOR EXAM: CONFUSION, WEAKNESS TECHNIQUE: Frontal view of the chest. COMPARISON: 03/11/2024. FINDINGS: Unchanged bilateral basilar atelectatic airspace disease. Moderate gaseous distention of the colon. Secondary bilateral elevation of the hemidiaphragms, mildly progressed. There is no demonstrated pleural abnormality. Enlarged cardiac silhouette. Normal mediastinum and rowena. Normal visualized pulmonary arteries. Atheromatous plaques of the visualized aortic arch and descending thoracic aorta. Diffuse spondylosis of the visualized thoracic spine. Normal visualized ribs, clavicles. Degenerative joint disease. There is no demonstrated abnormality of the visualized soft tissue structures of the upper abdomen. RAD/Chest 1 View (Portable) IMPRESSION: Unchanged bilateral basilar atelectatic airspace disease. Moderate gaseous distention of the colon. Secondary bilateral elevation of the hemidiaphragms, mildly progressed. Reading Location: [facility] [id number]
[2025-03-22] MEDS: Potassium Chloride 10mEq/100mL 10 MEQ/100 ML IV.SOLN. 100 MEQ IV BOLUS (02:34)
[2025-03-22 03:16] LABS: Troponin T High Sens 2 HR 25 ng/L (<=22)
--- NOTE | 2025-03-22 05:57 | PCM.HP.STD ---
[facility] General Date of Service: 03/22/25 Chief Complaint: Abdominal Bloating, Distention, Generalized Weakness and Confusion. [facility] Narrative EDER BREEN, is a 69 M with a past medical history of essential hypertension; on furosemide, history of hyperlipidemia; currently not on treatment, obesity (class II); with BMI of 38 this admission, hypothyroidism; on levothyroxine, seizure disorder; on lacosamide twice daily, lamotrigine twice daily, zonisamide twice daily and levetiracetam twice daily, history of DVT; on warfarin, chronic lower extremity lymphedema with chronic venous stasis, history of RAHUL, history of skin cancer, history of Hodgkin's lymphoma, BPH; on tamsulosin, OA; on ibuprofen every 6 hours and recent admission here from March 05, 2025 to March 12, 2025 for evaluation and treatment of hyponatremia to 120 mmol/L and hypokalemia of 3.3 mmol/L with mild [id number]-[id number] debility in addition to persistent abdominal pain with distention and diarrhea with concern for [place] syndrome in addition to gallbladder ultrasound showing solitary stone in neck of gallbladder with hepatomegaly and fatty infiltration of liver the patient have not undergone panendoscopy and by Dr. Singh of gastroenterology the patient ultimately diagnosed with Chronic Intestinal Pseudoobstruction; with verduzco recommendation to absolutely avoid narcotics in addition to patient being started on pyridostigmine in addition to amoxicillin-clavulanate twice daily x 10 days who re-presents to [facility] ER complaining of abdominal bloating, distention, generalized weakness and confusion. Mr. Breen is not a fully-reliable historian at this time so information was gathered from chart, medical staff and computer. According to the records he stated he has severe nausea and could not articulate his symptoms fully but he stated he had abdominal pain that was severe and causing him to have difficulty ambulating. He also informed the ER physician he is too weak to stand and not doing well at home where he states he lives by himself; though on his previous records shows he has a spouse. He is obviously confused but he admits to abdominal pain and nausea but he denies diarrhea or vomiting. In the ER he was noted to have laboratory evidence of Hypokalemia of 2.9 mmol/L present on admission in addition to moderate Thrombocytopenia with platelet count of 100K present on admission in addition to mildly elevated troponin T of 28 ng/L present on admission with corresponding CT scan of the abdomen and pelvis without contrast that revealed unchanged narrowing of the mid-aspect of the sigmoid colon possibly secondary to spasm and/or stricture with significant gaseous distention of the transverse colon measuring ~12.9 cm in his largest transverse dimension on the current exam without perforation or pneumatosis coli with unchanged prominent venous collaterals in the anterior abdominal davis with unchanged retroperitoneal lymphadenopathy with the largest lymph node measuring ~1.3 cm, unchanged mild bilateral hydroureteronephrosis, probably reflux from distended bladder with unremarkable IVC filter and unchanged mild diffuse thickening of the stomach likely due to gastritis with moderate gastroparesis and unchanged impacted gallstone at the neck of the distended gallbladder without definite CT evidence of acute cholecystitis in addition to chronic changes of mesenteric panniculitis, unchanged from previous and then he underwent head CT without contrast that revealed no CT evidence for acute brain abnormality complicated by clinical evidence of Acute Metabolic Encephalopathy in the setting of previously known Chronic Intestinal Pseudoobstruction and he was then admitted to the general medical floor with telemetric monitoring under observation status for stay that is expected to be less than 2 midnights. [facility] Medical History Seizures Loss of one eye Wears glasses Cancer Thyroid disease Arthritis Prostate disease Bladder disease Low iron High cholesterol Diarrhea Gastric reflux Non-smoker History of pain when walking Heart murmur Localized swelling of both lower legs Abnormal biliary HIDA scan Anxiety and depression HTN (hypertension) History of DVT of lower extremity Seizure disorder Home Medications ?Medication ?Instructions ?Recorded ?Last Taken ?Type lamotrigine 200 mg tablet 200 mg PO BID SEIZURES 03/12/14 03/21/24 History (Lamictal) lacosamide 200 mg tablet 200 mg PO BID SEIZURES 09/17/19 03/04/25 History zonisamide 100 mg capsule 100 mg PO BID SEIZURES 09/17/19 03/20/24 History warfarin 7.5 mg tablet 7.5 mg PO DAILY BLOOD THINNER 09/12/21 03/16/24 History levetiracetam 750 mg tablet 1,500 mg PO BID SEIZURES 03/11/24 03/21/24 History levothyroxine 88 mcg tablet 88 mcg PO DAILY THYROID 03/11/24 03/21/24 History furosemide 40 mg tablet 20 mg PO DAILY water pill 03/19/24 Unknown History ibuprofen 600 mg tablet 600 mg PO Q6H PRN fever or pain 03/21/24 03/04/25 Rx #20 tabs potassium chloride 20 mEq/15 mL 10 meq PO DAILY supplement 02/27/25 Unknown History oral liquid tamsulosin 0.4 mg capsule 0.4 mg PO QHS prostate 02/27/25 Unknown History amoxicillin 875 mg-potassium 1 tab PO BID 10 days #20 tabs 03/12/25 Unknown Rx clavulanate 125 mg tablet metoclopramide HCl 5 mg tablet 5 mg PO Q6H 30 days #120 tabs 03/12/25 Unknown Rx potassium, sodium phosphates 280 1 packet PO BID 10 days #20 ea 03/12/25 Unknown Rx mg-160 mg-250 mg oral powder packet pyridostigmine bromide 30 mg tablet 30 mg PO DAILY #30 tabs 03/12/25 Unknown Rx Allergy/AdvReac Type Severity Reaction Status Date / Time No Known Allergies Allergy Verified 03/21/25 23:38 Surgical History Hx of colonoscopy History of vascular access device Hx of vascular surgery Hx of left cataract extraction Social History household members: spouse Smoking Status: Never smoker ROS ROS Narrative Full review of systems was not possible due to patient's confusion. Vital Signs Vital Signs Vital Signs: 03/21/25 23:37 03/22/25 01:37 03/22/25 02:35 Temperature 98.6 F Temperature Source Temporal Pulse Rate 91 71 81 Respiratory Rate 18 16 19 H Blood Pressure 146/84 H 145/80 H Blood Pressure Mean 104 101 Pulse Ox 97 100 100 Oxygen Delivery Method Room Air Room Air 03/22/25 04:00 Temperature Temperature Source Pulse Rate 79 Respiratory Rate 15 Blood Pressure 116/61 Blood Pressure Mean 79 Pulse Ox 97 Oxygen Delivery Method Weight Weight: 280 lb 6.848 oz Body Mass Index (BMI) 38.0 Physical Exam Const alert Constitutional Narrative: Confused obese patient is nontoxic in appearance General Appearance: cooperative Orientation / Consciousness: confused HEENT normocephalic, head/scalp atraumatic, hearing grossly normal bilaterally and moist oral mucous membranes Eyes Eyes Narrative: Patient is missing Right eye. Neck no lymphadenopathy and supple Resp normal respiratory effort, no retractions, no use of accessory muscles and clear to auscultation bilaterally Cardio regular rate and regular rhythm GI GI Narrative: Abdomen grossly distended with mild discomfort to palpation generally normoactive bowel sounds. No guarding or rebound noted. Extremity Extremity Narrative: Chronic venous stasis in legs. Skin Skin Narrative: Chronic venous stasis in legs. Neuro CN's II-XII intact bilaterally and moves all extremities Neuro Narrative: Patient is confused but moving all extremities. Sensorium / Orientation: awake, alert and oriented to person Speech: speech normal Psych affect normal Results Medical Records Data Attestation: I reviewed the patient's medical records Lab / Micro Data Attestation: I reviewed the patient's lab results. 03/21/25 23:15 03/21/25 23:15 Labs: Laboratory Results - last 24 hr 03/21/25 23:15: WBC 8.2, RBC 4.03 L, Hgb 11.9 L, Hct 35.7 L, MCV 88.6, MCH 29.5, MCHC 33.3, RDW Std Deviation 46.0 H, RDW Coeff of Vaishnavi 14.2, Plt Count 100 L, MPV 9.9, Immature Gran % (Auto) 1.200 H, Neut % (Auto) 65.2, Lymph % (Auto) 21.3, [place] % (Auto) 8.7, Eos % (Auto) 3.4, Baso % (Auto) 0.2, Absolute Neuts (auto) 5.4, Absolute Lymphs (auto) 1.75, Nucleated RBC % 0, Sodium 134, Potassium 2.9 L, Chloride 97 L, Carbon Dioxide 21.9, Anion Gap 16 H, BUN 18, Creatinine 1.07, Estim Creat Clear Calc 87.27, Est GFR (MDRD) Non-Af 74, BUN/Creatinine Ratio 16.4, Glucose 105 H, Calcium 8.8, Total Bilirubin 0.40, AST 23, ALT 26, Alkaline Phosphatase 138 H, Troponin T High Sens 28 H, Total Protein 6.9, Albumin 4.1, Globulin 2.8, Albumin/Globulin Ratio 1.5, Lipase 50, TSH 0.428 03/21/25 23:46: Urine Color Yellow, Urine Clarity Clear, Urine pH 6.0, Ur Specific [place] 1.020, Urine Protein Negative, Urine Glucose (UA) Normal, Urine Ketones Negative, Urine Occult Blood Negative, Urine Nitrite Negative, Urine Bilirubin Negative, Urine Urobilinogen Normal, Ur Leukocyte Esterase Negative, Urine RBC 0 SEEN, Urine WBC 0 SEEN, Ur Squamous Epith Cells 0 SEEN, Urine Bacteria 0 SEEN, Urine Mucus 0 SEEN 03/22/25 02:40: Troponin T Hi Sens 2 Hr 25 H Rhythm Strip Rhythm Strip: Sinus Rhythm Rate: 85 Ectopy: None Imaging Radiology Impression Abdomen/Pelvis CT 03/22/25 01:45 IMPRESSION: Unchanged narrowing of the mid aspect of the sigmoid colon, possibly secondary to spasm and/or stricture. Again is noted significant gaseous distention of the transverse colon. It measures 12.9 cm in its largest transverse dimension on the current exam without perforation or pneumatosis coli. Unchanged prominent venous collaterals in the anterior abdominal davis. Unchanged retroperitoneal lymphadenopathy with the largest lymph node measuring 1.3 cm. Unchanged mild bilateral hydroureteronephrosis, probably reflux from distended bladder. Mild bilateral basilar atelectatic pulmonary changes. Unremarkable IVC filter. Unchanged moderate gastroparesis. Unchanged mild diffuse thickening of the stomach, probably gastritis. Unchanged impacted gallstone at the neck of the distended gallbladder without definite CT evidence of acute cholecystitis. Chronic changes of mesenteric panniculitis, unchanged. Reading Location: [id number] Brain CT 03/22/25 01:45 IMPRESSION: No CT evidence for acute brain abnormality. [facility] Assessment & Plan Assessment/Plan (1) Hypokalemia: (2) Generalized weakness: (3) Ambulatory dysfunction: (4) Chronic intestinal pseudo-obstruction: (5) Nausea: (6) Abdominal pain: QUALIFIERS: Abdominal location: unspecified location Qualified Code(s): R10.9 - Unspecified abdominal pain (7) Colon distention: (8) Acute metabolic encephalopathy: (9) Obesity (BMI 30-39.9): (10) History of DVT (deep vein thrombosis): (11) Chronic anticoagulation: PLAN: Plan 1. Hypokalemia of 2.9 mmol/L present on admission - Admit to general medical floor with telemetry monitoring under observation status. Give supplemental KCl and then recheck level in a.m. to ensure repletion. 2. Generalized Weakness with Ambulatory Dysfunction likely due to #1 - PT/OT and Case Management to consult and treat on-rounds in the AM for further recommendations with help appreciated in advance. 3. Chronic Intestinal Pseudoobstruction with Nausea and Abdominal Pain with corresponding CT scan of the abdomen and pelvis without contrast that revealed unchanged narrowing of the mid-aspect of the sigmoid colon possibly secondary to spasm and/or stricture with significant gaseous distention of the transverse colon measuring ~12.9 cm in his largest transverse dimension on the current exam without perforation or pneumatosis coli with unchanged prominent venous collaterals in the anterior abdominal davis with unchanged retroperitoneal lymphadenopathy with the largest lymph node measuring ~1.3 cm, unchanged mild bilateral hydroureteronephrosis, probably reflux from distended bladder with unremarkable IVC filter and unchanged mild diffuse thickening of the stomach likely due to gastritis with moderate gastroparesis and unchanged impacted gallstone at the neck of the distended gallbladder without definite CT evidence of acute cholecystitis in addition to chronic changes of mesenteric panniculitis, unchanged from previous and then he underwent head CT without contrast that revealed no CT evidence for acute brain abnormality complicating #1 & #2 - Noted his CT findings are essentially unchanged from previous. Give ondansetron IV as needed for nausea and vomiting. Give acetaminophen as needed for pain or fever. We will assiduously avoid narcotics as per GI recommendations. 4. Acute Metabolic Encephalopathy attributable to #1 - #3 - Check TSH, B12, Folate, HgbA1c, DANNA and UDS to evaluate for potentially reversible causes of confusion. Otherwise, continue supportive care and monitor for improvement. 5. Obesity (class II); with BMI of 38 this admission adding to the burden of disease outlined from #1 - #4 - Weight loss will be recommended when sensorium clears. Check TSH. This complicates his case and may hamper recovery. 6. History of DVT; on warfarin with chronic lower extremity lymphedema with chronic venous stasis and IVC filter adding to the medical complexity of #1 - #5 - Check PT/INR daily and then resume warfarin to maintain INR 2-3. 7. Recent admission here from March 05, 2025 to March 12, 2025 for evaluation and treatment of hyponatremia to 120 mmol/L and hypokalemia of 3.3 mmol/L with mild [id number] debility in addition to persistent abdominal pain with distention and diarrhea with concern for [place] syndrome in addition to gallbladder ultrasound showing solitary stone in neck of gallbladder with hepatomegaly and fatty infiltration of liver the patient have not undergone panendoscopy and by Dr. Singh of gastroenterology the patient ultimately diagnosed with Chronic Intestinal Pseudoobstruction; with verduzco recommendation to absolutely avoid narcotics in addition to patient being started on pyridostigmine in addition to amoxicillin-clavulanate twice daily x 10 days - Noted. 8. Seizure disorder; on lacosamide twice daily, lamotrigine twice daily, zonisamide twice daily and levetiracetam twice daily - Continue home regimen. 9. Thrombocytopenia with platelet count of 100K present on admission - Check CBC daily to follow trend. 10. Mildly elevated troponin T of 28 ng/L - Noted. Serialize troponin. Doubt ACS. 11. Essential hypertension; on furosemide - Hold furosemide until further notice as this is the likely significant contributing factor to #1. 12. History of hyperlipidemia; currently not on treatment - Check Lipid profile. 13. Hypothyroidism; on levothyroxine - Continue levothyroxine as before and check TSH. 14. History of RAHUL - Stable with hemoglobin of 11.9 g/dL and MCV of 88.6 fL this admission. 15. History of skin cancer - Noted. 16. History of Hodgkin's lymphoma - Noted. 17. BPH; on tamsulosin - Resume tamsulosin as previous. 18. OA; on ibuprofen every 6 hours as needed - We will start acetaminophen as noted in #3. 19. DVT prophylaxis - Patient is on warfarin for #6 which will be continued with limited bridging options if INR is low due to low platelet count of 100K. Total time: Approximately (but not less than) 85 minutes. Charges/Coding Visit Charges OBSV E&M: 46389 Observ/hosp same date L3
[2025-03-22 06:18] LABS: Prothrombin Time (Protime)PT. 13.6 SECONDS (11.7-14.9)
--- OUTSIDE RECORDS SUMMARY | 2025-03-22 07:06 | XMS RPT_ITS | CCD ---
Author Organization [facility] Care Team Providers Care Invas Tech Name Role Phone Hari Oneill DO Primary [...] Unavailable HARI ONEILL Primary Care Unavailable Rivera MARKETING TEAM LEAD.Dai DAWSON Unavailable Soraya MARKETING TEAM LEAD.Suyapa DAWSON Unavailable Rivera MARKETING TEAM LEAD.Dai DAWSON Unavailable Tico MARKETING TEAM LEAD.Paulie DAWSON Unavailable HARI ONEILL Primary Care Unavailable MARIA TERESA EGAN Attending Unavailable Dr. Hari Oneill DO Primary Care Provider [phone] Dr. Khang Osuna MD Emergency Provider Rashid [...] Unavailable ONEILL, HARI L Primary Care Unavailable JYAESH HERNANDEZ Referring Unavailable JAYESH HERNANDEZ Attending Unavailable ONEILL, HARI L Primary Care Unavailable SORAYA, SUYAPA Referring Unavailable EAYD NOVOA Attending Unavailable ONEILL, HARI L Primary [...] sources) Doxycycline Drug Allergy 06-21-2019 [facility] Lactase (2 sources) Lactase Drug Allergy 05-24-2022 Diarrhea [facility] (20 sources) Doxycycline; Translations: [DOXYCYCLINE] Drug Allergy 06-21-2019 GI [facility] Work Phone: (20 sources) Lactase; Translations: [LACTASE] Drug Allergy 05-24-2022 Diarrhea [facility] Medications Current Medications Medication Drug Class(es) [...] on above: Take 1 capsule by mo [facility] once daily. in the morning for mood [...] 1 tablet by mouth once daily Pyridostigmine Kempner 30 mg tablet Active 30 mg PO [...] warfarin (COUMADIN) 5 mg tab let Indications: 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 , Other [...] warfarin (COUMADIN) 5 mg tab let Indications: 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 , Other [...] week warfarin (COUMADIN) 5 mg tablet Indications: 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 , Other [...] daily warfarin (COUMADIN) 5 mg tablet Indications: 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 , Other [...] source) Standardized Chemical Allergen Start: End: 1 [place], TOPICAL, DIRECTED, Starting on Sun09/30/24 at 1230, [...] Appointment is with Dr. Beatriz Moncada in [place]. 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: 5 Unclassified (1 source) [place] syndrome; Translations: [[place] syndrome] Onset: 5 Unclassified (1 source) Food [...] sources) Long-term current use of anticoagulant; Translations: [supervisor intermediates (current) use of anticoagulants] Onset: 2 Episodic [...] [Relative time] 1.0 {INR} 0.9 - 1.3 [facility] Comment on above: Vitamin K Antagonist (VKA) Therapeutic Range: INR 2 to 3 (Target INR of 2.5) Note: For patients treated with VKA drugs, such as warfarin, the [employer] [employer] 2012 Guideline recommends [...] Interpretation and review of laboratory results Normal [facility] PT Coag (PPP) [Time] 11.3 s [facility] XR Chest PA and Lateralon IMPRESSION: No acute radiographic abnormality. Gaseous bowel distention beneath the diaphragm. Further evaluation may be obtained as clinically indicated. Hedis Coordinator: GEORGES Transcribe Date/Time: Mar 18 2025 3:25P Dictated by : LAURA HERNANDEZ MD This examination was interpreted and the report reviewed and electronically signed by: LAURA HERNANDEZ MD on Mar 18 2025 3:27PM [facility] DIVISION OF RADIOLOGY * * *Final Report* [...] as clinically indicated. DIVISION OF RADIOLOGY Provider, [facility] - 03/18/2025 * * *Final Report* [...] evaluation may be obtained as clinically indicated. Hedis Coordinator: PSCB Transcribe Date/Time: Mar 18 2025 3:25P Dictated by : LAURA HERNANDEZ MD This examination was interpreted and the report reviewed and electronically signed by: LAURA HERNANDEZ MD on Mar 18 2025 3:27PM EST [facility] Radiology Study observation (narrative) [facility] XR Chest PA and LateralOrder ed By: Ccf Provider on 03-18-2025 [facility]va [facility] Parasites 8623on OP Normal [facility] Comment on above: Performed By: #### M 600.5000 ####[facility] [address] [place], [address] CBC W/Diff, Automatedon Absolute Neut Normal 2.0-7.7 [facility] Comment on above: Result Comment: Canc elled via OM: MD Ordered Performed By: #### L 100.0100 ####[facility] [address] [place], [address] HCT Normal 40-54 [facility] Comment on above: Result Comment: Canc elled via OM: MD Ordered Performed By: #### L 100.0100 ####[facility] [address] [place], [address] HGB Normal 13.0-16.5 [facility] Comment on above: Result Comment: Canc elled via OM: MD Ordered Performed By: #### L 100.0100 ####[facility] [address] [place], [address] MCH Normal 27.0-32.0 [facility] Comment on above: Result Comment: Canc elled via OM: MD Ordered Performed By: #### L 100.0100 ####[facility] [address] [place], [address] MCHC Normal 32-36 [facility] Comment on above: Result Comment: Canc elled via OM: MD Ordered Performed By: #### L 100.0100 ####[facility] [address] [place], [address] MCV Normal 80-94 [facility] Comment on above: Result Comment: Canc elled via OM: MD Ordered Performed By: #### L 100.0100 ####[facility] [address] [place], [address] NEUT% Normal 47-70 [facility] Comment on above: Result Comment: Canc elled via OM: MD Ordered Performed By: #### L 100.0100 ####[facility] [address] [place], [address] PLT Normal 150-450 [facility] Comment on above: Result Comment: Canc elled via OM: MD Ordered Performed By: #### L 100.0100 ####[facility] [address] [place], [address] RBC Normal 4.6-6.2 [facility] Comment on above: Result Comment: Canc elled via OM: MD Ordered Performed By: #### L 100.0100 ####[facility] [address] [place], [address] RDW CV Normal 11.6-14.6 [facility] Comment on above: Result Comment: Canc elled via OM: MD Ordered Performed By: #### L 100.0100 ####[facility] [address] [place], [address] RDW SD Normal 35.1-43.9 [facility] Comment on above: Result Comment: Canc elled via OM: MD Ordered Performed By: #### L 100.0100 ####[facility] [address] [place], [address] WBC Normal 4.4-11.0 [facility] Comment on above: Result Comment: Canc elled via OM: MD Ordered Performed By: #### L 100.0100 ####[facility] [address] [place], [address] Basic Metabolic Profile (BMP )on 03-13-2025 BUN Normal 4-19 [facility] Comment on above: Result Comment: Canc elled via OM: Order cancelled - Patient discharged Performed By: #### L 100.0100, L500.2500 ####[facility] [address] [place], [address] BUN/CRE Normal 10-20 [facility] Comment on above: Result Comment: Canc elled via OM: Order cancelled - Patient discharged Performed By: #### L 100.0100, L500.2500 ####[facility] [address] [place], [address] Calcium Normal 7.6-11.0 [facility] Comment on above: Result Comment: Canc elled via OM: Order cancelled - Patient discharged Performed By: #### L 100.0100, L500.2500 ####[facility] [address] [place], [address] CL Normal 98-108 [facility] Comment on above: Result Comment: Canc elled via OM: Order cancelled - Patient discharged Performed By: #### L 100.0100, L500.2500 ####[facility] [address] [place], [address] CO2 Normal 21.0-32.0 [facility] Comment on above: Result Comment: Canc elled via OM: Order cancelled - Patient discharged Performed By: #### L 100.0100, L500.2500 ####[facility] [address] [place], [address] CREAT,SERUM Normal 0.70-1.20 [facility] Comment on above: Result Comment: Canc elled via OM: Order cancelled - Patient discharged Performed By: #### L 100.0100, L500.2500 ####[facility] [address] [place], [address] eGFR Normal >60 [facility] Comment on above: Result Comment: Canc elled via OM: Order cancelled - Patient discharged Performed By: #### L 100.0100, L500.2500 ####[facility] [address] [place], [address] GAP Normal 5-15 [facility] Comment on above: Result Comment: Canc elled via OM: Order cancelled - Patient discharged Performed By: #### L 100.0100, L500.2500 ####[facility] [address] [place], [address] GLU Normal 70-99 [facility] Comment on above: Result Comment: Canc elled via OM: Order cancelled - Patient discharged Performed By: #### L 100.0100, L500.2500 ####[facility] [address] [place], [address] Potassium Normal 3.3-5.1 [facility] Comment on above: Result Comment: Canc elled via OM: Order cancelled - Patient discharged Performed By: #### L 100.0100, L500.2500 ####[facility] [address] [place], [address] Basic Metabolic Profile (BMP) Normal 133-145 [facility] Comment on above: Result Comment: Canc elled via OM: Order cancelled - Patient discharged Performed By: #### L 100.0100, L500.2500 ####[facility] [address] [place], [address] CBC W/Diff, Automatedon 08-0 -2024 Absolute Neut Normal 2.0-7.7 [facility] Comment on above: Result Comment: Canc elled via OM: MD Ordered Performed By: #### L 100.0100 ####[facility] [address] [place], [address] Result Comment: Canc elled via OM: Order cancelled - Patient discharged Performed By: #### L 100.0100, L500.2500 ####[facility] [address] [place], [address] HCT Normal 40-54 [facility] Comment on above: Result Comment: Canc elled via OM: MD Ordered Performed By: #### L 100.0100 ####[facility] [address] [place], [address] Result Comment: Canc elled via OM: Order cancelled - Patient discharged Performed By: #### L 100.0100, L500.2500 ####[facility] [address] [place], [address] HGB Normal 13.0-16.5 [facility] Comment on above: Result Comment: Canc elled via OM: MD Ordered Performed By: #### L 100.0100 ####[facility] [address] [place], [address] Result Comment: Canc elled via OM: Order cancelled - Patient discharged Performed By: #### L 100.0100, L500.2500 ####[facility] [address] [place], [address] MCH Normal 27.0-32.0 [facility] Comment on above: Result Comment: Canc elled via OM: MD Ordered Performed By: #### L 100.0100 ####[facility] [address] [place], [address] Result Comment: Canc elled via OM: Order cancelled - Patient discharged Performed By: #### L 100.0100, L500.2500 ####[facility] [address] [place], [address] MCHC Normal 32-36 [facility] Comment on above: Result Comment: Canc elled via OM: MD Ordered Performed By: #### L 100.0100 ####[facility] [address] [place], [address] Result Comment: Canc elled via OM: Order cancelled - Patient discharged Performed By: #### L 100.0100, L500.2500 ####[facility] [address] [place], [address] MCV Normal 80-94 [facility] Comment on above: Result Comment: Canc elled via OM: MD Ordered Performed By: #### L 100.0100 ####[facility] [address] [place], [address] Result Comment: Canc elled via OM: Order cancelled - Patient discharged Performed By: #### L 100.0100, L500.2500 ####[facility] [address] [place], [address] NEUT% Normal 47-70 [facility] Comment on above: Result Comment: Canc elled via OM: MD Ordered Performed By: #### L 100.0100 ####[facility] [address] [place], [address] Result Comment: Canc elled via OM: Order cancelled - Patient discharged Performed By: #### L 100.0100, L500.2500 ####[facility] [address] [place], [address] PLT Normal 150-450 [facility] Comment on above: Result Comment: Canc elled via OM: MD Ordered Performed By: #### L 100.0100 ####[facility] [address] [place], [address] Result Comment: Canc elled via OM: Order cancelled - Patient discharged Performed By: #### L 100.0100, L500.2500 ####[facility] [address] [place], [address] RBC Normal 4.6-6.2 [facility] Comment on above: Result Comment: Canc elled via OM: MD Ordered Performed By: #### L 100.0100 ####[facility] [address] [place], [address] Result Comment: Canc elled via OM: Order cancelled - Patient discharged Performed By: #### L 100.0100, L500.2500 ####[facility] [address] [place], [address] RDW CV Normal 11.6-14.6 [facility] Comment on above: Result Comment: Canc elled via OM: MD Ordered Performed By: #### L 100.0100 ####[facility] [address] [place], [address] Result Comment: Canc elled via OM: Order cancelled - Patient discharged Performed By: #### L 100.0100, L500.2500 ####[facility] [address] [place], [address] RDW SD Normal 35.1-43.9 [facility] Comment on above: Result Comment: Canc elled via OM: MD Ordered Performed By: #### L 100.0100 ####[facility] [address] [place], [address] Result Comment: Canc elled via OM: Order cancelled - Patient discharged Performed By: #### L 100.0100, L500.2500 ####[facility] [address] [place], [address] WBC Normal 4.4-11.0 [facility] Comment on above: Result Comment: Canc elled via OM: MD Ordered Performed By: #### L 100.0100 ####[facility] [address] [place], [address] Result Comment: Canc elled via OM: Order cancelled - Patient discharged Performed By: #### L 100.0100, L500.2500 ####[facility] [address] [place], [address] Absolute lymphocyte countOrd ered By: Carlton Davis on 03-12-2025 Lymphocytes Auto (Unsp spec) [#/Vol] 1.28 10*3/uL 0.83-4.51 [facility] Absolute neutrophil countOrd ered By: Carlton Davis on 03-12-2025 Neutrophils (Bld) [#/Vol] 4.2 10*3/uL 2.0-7.7 [facility] Anion gap in Serum or Plasma Ordered By: Carlton Davis on 03-12-2025 Anion gap [Moles/Vol] 12 mmol/L 5-15 [facility] Automated lymphocyte count a s percentage of total leukocytesOrdered By: Carlton Davis on 03-12-2025 Lymphocytes/100 WBC Auto (Unsp spec) 20.3 % 19-41 [facility] BUN/creatinine ratioOrdered By: Carlton Davis on 03-12-2025 Urea nitrogen/Creatinine [Mass ratio] 9.7 mg/mg Low 10-20 [facility] Basic Metabolic Profile (BMP )on 03-12-2025 BUN/CRE 9.7 RATIO Low 10-20 [facility] Comment on above: Performed By: #### L 500.2500, L100.0100 ####[facility] [address], [address] Calcium [Mass/Vol] 8.9 mg/dL Normal 7.6-11.0 [facility] Comment on above: Performed By: #### L 500.2500, L100.0100 ####[facility] [address] [place], [address] Chloride [Moles/Vol] 106 mmol/L Normal 98-108 [facility] Comment on above: Performed By: #### L 500.2500, L100.0100 ####[facility] [address] [place], [address] CO2 [Moles/Vol] 22.0 mmol/L Normal 21.0-32.0 [facility] Comment on above: Performed By: #### L 500.2500, L100.0100 ####[facility] [address] [place], [address] Creatinine [Mass/Vol] 1.00 mg/dL Normal 0.70-1.20 [facility] Comment on above: Performed By: #### L 500.2500, L100.0100 ####[facility] [address] [place], [address] ECRCL 90.62 ml/min Normal 50-250 [facility] Comment on above: Performed By: #### L 500.2500, L100.0100 ####[facility] [address] [place], [address] GAP 12 Normal 5-15 [facility] Comment on above: Performed By: #### L 500.2500, L100.0100 ####[facility] [address] [place], [address] GFR/1.73 sq M.predicted among non-blacks MDRD (S/P/Bld) [Vol rate/Area] 80 mL/min/{1.73_m2} Normal >60 [facility] Comment on above: Result Comment: mL/m in/1.73m2 CKD-EPI Creatinine Equation (2020) Performed By: #### L 500.2500, L100.0100 ####[facility] [address] [place], [address] Glucose [Mass/Vol] 110 mg/dL High 70-99 [facility] Comment on above: Performed By: #### L 500.2500, L100.0100 ####[facility] [address] [place], [address] Potassium [Moles/Vol] 3.7 mmol/L Normal 3.3-5.1 [facility] Comment on above: Performed By: #### L 500.2500, L100.0100 ####[facility] [address] [place], [address] Sodium [Moles/Vol] 140 mmol/L Normal 133-145 [facility] Comment on above: Performed By: #### L 500.2500, L100.0100 ####[facility] [address] [place], [address] Urea nitrogen [Mass/Vol] 10 mg/dL Normal 4-19 [facility] Comment on above: Performed By: #### L 500.2500, L100.0100 ####[facility] [address] [place], [address] Basophil percentageOrdered B y: Carlton Davis on 03-12-2025 Basophils/100 WBC (Bld) 0.5 % 0-1 [facility] CBC W/Diff, Automatedon Absolute Lymph 1.28 X10 3/uL Normal 0.83-4.51 [facility] Comment on above: Performed By: #### L 500.2500, L100.0100 ####[facility] [address] [place], [address] Absolute Neut 4.2 X10 3/uL Normal 2.0-7.7 [facility] Comment on above: Performed By: #### L 500.2500, L100.0100 ####[facility] [address] [place], [address] Basophils/100 WBC (Bld) 0.5 % Normal 0-1 [facility] Comment on above: Performed By: #### L 500.2500, L100.0100 ####[facility] [address] [place], [address] Eosinophils/100 WBC (Bld) 4.9 % Normal 0-5 [facility] Comment on above: Performed By: #### L 500.2500, L100.0100 ####[facility] [address] [place], [address] Erythrocyte distribution width (RBC) [Ratio] 14.4 % Normal 11.6-14.6 [facility] Comment on above: Performed By: #### L 500.2500, L100.0100 ####[facility] [address] [place], [address] Hematocrit (Bld) [Volume fraction] 37.6 % Low 40-54 [facility] Comment on above: Performed By: #### L 500.2500, L100.0100 ####[facility] [address] [place], [address] Hemoglobin (Bld) [Mass/Vol] 12.3 g/dL Low 13.0-16.5 [facility] Comment on above: Performed By: #### L 500.2500, L100.0100 ####[facility] [address] [place], [address] IG% 0.200 Normal 0.0-0.9 [facility] Comment on above: Result Comment: IG% - Immature Granulocytes (promyelocytes, myelocytes andmetamyelocytes) > 1% indicates that a LEFT SHIFT is Present. Performed By: #### L 500.2500, L100.0100 ####[facility] [address] [place], [address] Lymphocytes/100 WBC (Bld) 20.3 % Normal 19-41 [facility] Comment on above: Performed By: #### L 500.2500, L100.0100 ####[facility] [address] [place], [address] MCH (RBC) [Entitic mass] 29.4 pg Normal 27.0-32.0 [facility] Comment on above: Performed By: #### L 500.2500, L100.0100 ####[facility] [address] [place], [address] MCHC (RBC) [Mass/Vol] 32.7 g/dL Normal 32-36 [facility] Comment on above: Performed By: #### L 500.2500, L100.0100 ####[facility] [address] [place], [address] MCV (RBC) [Entitic vol] 90.0 fL Normal 80-94 [facility] Comment on above: Performed By: #### L 500.2500, L100.0100 ####[facility] [address] [place], [address] Monocytes/100 WBC (Bld) 7.0 % Normal 0-10 [facility] Comment on above: Performed By: #### L 500.2500, L100.0100 ####[facility] [address] [place], [address] Neutrophils/100 WBC (Bld) 67.1 % Normal 47-70 [facility] Comment on above: Performed By: #### L 500.2500, L100.0100 ####[facility] [address] [place], [address] Nucleated RBC (Bld) [#/Vol] 0 10*3/uL Normal 0-5 [facility] Comment on above: Performed By: #### L 500.2500, L100.0100 ####[facility] [address] [place], [address] Platelet mean volume (Bld) [Entitic vol] 9.3 fL Normal 6.2-12.0 [facility] Comment on above: Performed By: #### L 500.2500, L100.0100 ####[facility] [address] [place], [address] Platelets (Bld) [#/Vol] 173 10*3/uL Normal 150-450 [facility] Comment on above: Performed By: #### L 500.2500, L100.0100 ####[facility] [address] [place], [address] RBC (Bld) [#/Vol] 4.18 10*6/uL Low 4.6-6.2 [facility] Comment on above: Performed By: #### L 500.2500, L100.0100 ####[facility] [address] [place], [address] RDW SD 47.6 fl High 35.1-43.9 [facility] Comment on above: Performed By: #### L 500.2500, L100.0100 ####[facility] [address] [place], [address] WBC (Bld) [#/Vol] 6.3 10*3/uL Normal 4.4-11.0 [facility] Comment on above: Performed By: #### L 500.2500, L100.0100 ####[facility] [address] [place], [address] Absolute Neut Normal 2.0-7.7 [facility] Comment on above: Result Comment: Canc elled via OM: MD Ordered Performed By: #### L 100.0100 ####[facility] [address] [place], [address] HCT Normal 40-54 [facility] Comment on above: Result Comment: Canc elled via OM: MD Ordered Performed By: #### L 100.0100 ####[facility] [address] [place], [address] HGB Normal 13.0-16.5 [facility] Comment on above: Result Comment: Canc elled via OM: MD Ordered Performed By: #### L 100.0100 ####[facility] [address] [place], [address] MCH Normal 27.0-32.0 [facility] Comment on above: Result Comment: Canc elled via OM: MD Ordered Performed By: #### L 100.0100 ####[facility] [address] [place], [address] MCHC Normal 32-36 [facility] Comment on above: Result Comment: Canc elled via OM: MD Ordered Performed By: #### L 100.0100 ####[facility] [address] [place], [address] MCV Normal 80-94 [facility] Comment on above: Result Comment: Canc elled via OM: MD Ordered Performed By: #### L 100.0100 ####[facility] [address] [place], [address] NEUT% Normal 47-70 [facility] Comment on above: Result Comment: Canc elled via OM: MD Ordered Performed By: #### L 100.0100 ####[facility] [address] [place], [address] PLT Normal 150-450 [facility] Comment on above: Result Comment: Canc elled via OM: MD Ordered Performed By: #### L 100.0100 ####[facility] [address] [place], [address] RBC Normal 4.6-6.2 [facility] Comment on above: Result Comment: Canc elled via OM: MD Ordered Performed By: #### L 100.0100 ####[facility] [address] [place], [address] RDW CV Normal 11.6-14.6 [facility] Comment on above: Result Comment: Canc elled via OM: MD Ordered Performed By: #### L 100.0100 ####[facility] [address] [place], [address] RDW SD Normal 35.1-43.9 [facility] Comment on above: Result Comment: Lita elled via OM: MD Ordered Performed By: #### L 100.0100 ####[facility] [address] [place], [place], [address] WBC Normal 4.4-11.0 [facility] Comment on above: Result Comment: Lita hortaed via OM: MD Ordered Performed By: #### L 100.0100 ####[facility] [address] [place], [address] Carbon dioxide, total [Moles /volume] in Central venous bloodOrdered By: Carlton Davis on 03-12-2025 CO2 [Moles/Vol] 22.0 mmol/L 21.0-32.0 [facility] Chloride assayOrdered By: Richie Davis on 03-12-2025 Chloride [Moles/Vol] 106 mmol/L 98-108 [facility] Eosinophil percentageOrdered By: Carlton Davis on 03-12-2025 Eosinophils/100 WBC (Bld) 4.9 % 0-5 [facility] Erythrocyte distribution wid th ratioOrdered By: Carlton Davis on 03-12-2025 Erythrocyte distribution width (RBC) [Ratio] 14.4 % 11.6-14.6 [facility] Erythrocyte distribution wid th standard deviationOrdered By: Carlton Davis on 03-12-2025 Erythrocyte distribution width (RBC) [Ratio] 47.6 fl High 35.1-43.9 [facility] Glomerular filtration rate ( GFR) estimation/1.73 sq m using serum, plasma, or whole bOrdered By: Carlton Davis on 03-12-2025 GFR/1.73 sq M.predicted among non-blacks MDRD (S/P/Bld) [Vol rate/Area] 80 mL/min/{1.73_m2} >60 [facility] Comment on above: mL/min/1.73m2 CKD-EP I Creatinine Equation (2020) Hematocrit Auto (Bld) [Volum e fraction]Ordered By: Carlton Davis on 03-12-2025 Hematocrit (Bld) [Volume fraction] 37.6 % Low 40-54 [facility] Hemoglobin measurementOrdere d By: Carlton Davis on 03-12-2025 Hemoglobin (Bld) [Mass/Vol] 12.3 g/dL Low 13.0-16.5 [facility] Immature granulocytes/100 WB C Auto (Bld)Ordered By: Carlton Davis on 03-12-2025 Immature granulocytes/100 WBC (Bld) 0.200 % 0.0-0.9 [facility] Comment on above: IG% - Immature Granu locytes (promyelocytes, myelocytes and metamyelocytes) > 1% indicates that a LEFT SHIFT is Present. MCV (mean corpuscular volume ) determinationOrdered By: Carlton Davis on 03-12-2025 MCV (RBC) [Entitic vol] 90.0 fL 80-94 [facility] Mean corpuscular hemoglobin (MCH) determinationOrdered By: Carlton Davis on 03-12-2025 MCH (RBC) [Entitic mass] 29.4 pg 27.0-32.0 [facility] Mean corpuscular hemoglobin concentration (MCHC) determinationOrdered By: Carlton Davis on 03-12-2025 MCHC (RBC) [Mass/Vol] 32.7 g/dL 32-36 [facility] Mean platelet volume determi nationOrdered By: Carlton Davis on 03-12-2025 Platelet mean volume (Bld) [Entitic vol] 9.3 fL 6.2-12.0 [facility] Monocyte percentageOrdered B y: Carlton Davis on 03-12-2025 Monocytes/100 WBC (Bld) 7.0 % 0-10 [facility] Neutrophil percentageOrdered By: Carlton Davis on 03-12-2025 Neutrophils/100 WBC (Bld) 67.1 % 47-70 [facility] Nucleated red blood cell per centageOrdered By: Carlton Davis on 03-12-2025 Nucleated RBC/100 WBC (Bld) [Ratio] 0 % 0-5 [facility] Platelet countOrdered By: Richie Davis on 03-12-2025 Platelets (Bld) [#/Vol] 173 10*3/uL 150-450 [facility] Potassium measurement (mass/ volume)Ordered By: Carlton Davis on 03-12-2025 Potassium (Unsp spec) [Mass/Vol] 3.7 mmol/L 3.3-5.1 [facility] RBC Auto (Bld) [#/Vol]Ordere d By: Carlton Davis on 03-12-2025 RBC (Bld) [#/Vol] 4.18 10*6/uL Low 4.6-6.2 [facility] Serum creatinine measurement (mass/volume)Ordered By: Carlton Davis on 03-12-2025 Creatinine [Mass/Vol] 1.00 mg/dL 0.70-1.20 [facility] Serum glucose measurement (m ass/volume)Ordered By: Carlton Davis on 03-12-2025 Glucose [Mass/Vol] 110 mg/dL High 70-99 [facility] Serum or plasma calcium mickie urement (mass/volume)Ordered By: Carlton Davis on 03-12-2025 Calcium [Mass/Vol] 8.9 mg/dL 7.6-11.0 [facility] Serum or plasma urea nitroge n measurement (mass/volume)Ordered By: Carlton Davis on 03-12-2025 Urea nitrogen [Mass/Vol] 10 mg/dL 4-19 [facility] Sodium levelOrdered By: Edmund Davis on 03-12-2025 Sodium [Moles/Vol] 140 mmol/L 133-145 [facility] White blood cell (WBC) count Ordered By: Carlton Davis on 03-12-2025 WBC (Bld) [#/Vol] 6.3 10*3/uL 4.4-11.0 [facility] Basic Metabolic Profile (BMP )on 03-11-2025 BUN/CRE 8.8 RATIO Low 10-20 [facility] Comment on above: Performed By: #### L 500.2500, L100.0100, L501.2300, L501.5200 ####[facility] [address] [place], [address] Calcium [Mass/Vol] 8.8 mg/dL Normal 7.6-11.0 [facility] Comment on above: Performed By: #### L 500.2500, L100.0100, L501.2300, L501.5200 ####[facility] [address] [place], [address] Chloride [Moles/Vol] 106 mmol/L Normal 98-108 [facility] Comment on above: Performed By: #### L 500.2500, L100.0100, L501.2300, L501.5200 ####[facility] [address] [place], [address] CO2 [Moles/Vol] 19.6 mmol/L Low 21.0-32.0 [facility] Comment on above: Performed By: #### L 500.2500, L100.0100, L501.2300, L501.5200 ####[facility] [address] [place], [address] Creatinine [Mass/Vol] 0.94 mg/dL Normal 0.70-1.20 [facility] Comment on above: Performed By: #### L 500.2500, L100.0100, L501.2300, L501.5200 ####[facility] [address] [place], [address] ECRCL 101.09 ml/min Normal 50-250 [facility] Comment on above: Performed By: #### L 500.2500, L100.0100, L501.2300, L501.5200 ####[facility] [address] [place], [address] GAP 13 Normal 5-15 [facility] Comment on above: Performed By: #### L 500.2500, L100.0100, L501.2300, L501.5200 ####[facility] [address] [place], [address] GFR/1.73 sq M.predicted among non-blacks MDRD (S/P/Bld) [Vol rate/Area] 87 mL/min/{1.73_m2} Normal >60 [facility] Comment on above: Result Comment: mL/m in/1.73m2 CKD-EPI Creatinine Equation (2020) Performed By: #### L 500.2500, L100.0100, L501.2300, L501.5200 ####[facility] [address] [place], [address] Glucose [Mass/Vol] 131 mg/dL High 70-99 [facility] Comment on above: Performed By: #### L 500.2500, L100.0100, L501.2300, L501.5200 ####[facility] [address] [place], [address] Potassium [Moles/Vol] 3.9 mmol/L Normal 3.3-5.1 [facility] Comment on above: Performed By: #### L 500.2500, L100.0100, L501.2300, L501.5200 ####[facility] [address] [place], [address] Sodium [Moles/Vol] 138 mmol/L Normal 133-145 [facility] Comment on above: Performed By: #### L 500.2500, L100.0100, L501.2300, L501.5200 ####[facility] [address] [place], [address] Urea nitrogen [Mass/Vol] 8 mg/dL Normal 4-19 [facility] Comment on above: Performed By: #### L 500.2500, L100.0100, L501.2300, L501.5200 ####[facility] [address] [place], [address] Bedside Glucoseon 03-11-2025 FINGERSTICK GLU 124 mg/dL High 74-106 [facility] Comment on above: Result Comment: MARIA ELENA HARRIS OF PATIENT CARE PER NURSING PROTOCOL Performed By: #### L 501.080 ####[facility] [address] [place], [address] FINGERSTICK GLU 139 mg/dL High 74-106 [facility] Comment on above: Result Comment: MARIA ELENA HARRIS OF PATIENT CARE PER NURSING PROTOCOL Performed By: #### L 501.080 ####[facility] [address] [place], [address] CBC W/Diff, Automatedon 08-0 Absolute Neut Normal 2.0-7.7 [facility] Comment on above: Result Comment: Canc elled via OM: MD Ordered Performed By: #### L 100.0100, L500.4050 ####[facility] [address] [place], [address] HCT Normal 40-54 [facility] Comment on above: Result Comment: Canc elled via OM: MD Ordered Performed By: #### L 100.0100, L500.4050 ####[facility] [address] [place], [address] HGB Normal 13.0-16.5 [facility] Comment on above: Result Comment: Canc elled via OM: MD Ordered Performed By: #### L 100.0100, L500.4050 ####[facility] [address] [place], [address] MCH Normal 27.0-32.0 [facility] Comment on above: Result Comment: Canc elled via OM: MD Ordered Performed By: #### L 100.0100, L500.4050 ####[facility] [address] [place], [address] MCHC Normal 32-36 [facility] Comment on above: Result Comment: Canc elled via OM: MD Ordered Performed By: #### L 100.0100, L500.4050 ####[facility] [address] [place], [address] MCV Normal 80-94 [facility] Comment on above: Result Comment: Canc elled via OM: MD Ordered Performed By: #### L 100.0100, L500.4050 ####[facility] [address] [place], [address] NEUT% Normal 47-70 [facility] Comment on above: Result Comment: Canc elled via OM: MD Ordered Performed By: #### L 100.0100, L500.4050 ####[facility] [address] [place], [address] PLT Normal 150-450 [facility] Comment on above: Result Comment: Canc elled via OM: MD Ordered Performed By: #### L 100.0100, L500.4050 ####[facility] [address] [place], [address] RBC Normal 4.6-6.2 [facility] Comment on above: Result Comment: Canc elled via OM: MD Ordered Performed By: #### L 100.0100, L500.4050 ####[facility] [address] [place], [address] RDW CV Normal 11.6-14.6 [facility] Comment on above: Result Comment: Canc elled via OM: MD Ordered Performed By: #### L 100.0100, L500.4050 ####[facility] [address] [place], [address] RDW SD Normal 35.1-43.9 [facility] Comment on above: Result Comment: Canc elled via OM: MD Ordered Performed By: #### L 100.0100, L500.4050 ####[facility] [address] [place], [address] WBC Normal 4.4-11.0 [facility] Comment on above: Result Comment: Canc elled via OM: MD Ordered Performed By: #### L 100.0100, L500.4050 ####[facility] [address] [place], [address] Absolute Lymph 1.20 X10 3/uL Normal 0.83-4.51 [facility] Comment on above: Performed By: #### L 500.2500, L100.0100, L501.2300, L501.5200 ####[facility] [address] [place], [address] Absolute Neut 3.8 X10 3/uL Normal 2.0-7.7 [facility] Comment on above: Performed By: #### L 500.2500, L100.0100, L501.2300, L501.5200 ####[facility] [address] [place], [address] Basophils/100 WBC (Bld) 0.5 % Normal 0-1 [facility] Comment on above: Performed By: #### L 500.2500, L100.0100, L501.2300, L501.5200 ####[facility] [address] [place], [address] Eosinophils/100 WBC (Bld) 4.3 % Normal 0-5 [facility] Comment on above: Performed By: #### L 500.2500, L100.0100, L501.2300, L501.5200 ####[facility] [address] [place], [address] Erythrocyte distribution width (RBC) [Ratio] 14.5 % Normal 11.6-14.6 [facility] Comment on above: Performed By: #### L 500.2500, L100.0100, L501.2300, L501.5200 ####[facility] [address] [place], [address] Hematocrit (Bld) [Volume fraction] 36.7 % Low 40-54 [facility] Comment on above: Performed By: #### L 500.2500, L100.0100, L501.2300, L501.5200 ####[facility] [address] [place], [address] Hemoglobin (Bld) [Mass/Vol] 12.0 g/dL Low 13.0-16.5 [facility] Comment on above: Performed By: #### L 500.2500, L100.0100, L501.2300, L501.5200 ####[facility] [address] [place], [address] IG% 0.200 Normal 0.0-0.9 [facility] Comment on above: Result Comment: IG% - Immature Granulocytes (promyelocytes, myelocytes andmetamyelocytes) > 1% indicates that a LEFT SHIFT is Present. Performed By: #### L 500.2500, L100.0100, L501.2300, L501.5200 ####[facility] [address] [place], [address] Lymphocytes/100 WBC (Bld) 21.4 % Normal 19-41 [facility] Comment on above: Performed By: #### L 500.2500, L100.0100, L501.2300, L501.5200 ####[facility] [address] [place], [address] MCH (RBC) [Entitic mass] 29.2 pg Normal 27.0-32.0 [facility] Comment on above: Performed By: #### L 500.2500, L100.0100, L501.2300, L501.5200 ####[facility] [address] [place], [address] MCHC (RBC) [Mass/Vol] 32.7 g/dL Normal 32-36 [facility] Comment on above: Performed By: #### L 500.2500, L100.0100, L501.2300, L501.5200 ####[facility] [address] [place], [address] MCV (RBC) [Entitic vol] 89.3 fL Normal 80-94 [facility] Comment on above: Performed By: #### L 500.2500, L100.0100, L501.2300, L501.5200 ####[facility] [address] [place], [address] Monocytes/100 WBC (Bld) 5.7 % Normal 0-10 [facility] Comment on above: Performed By: #### L 500.2500, L100.0100, L501.2300, L501.5200 ####[facility] [address] [place], [address] Neutrophils/100 WBC (Bld) 67.9 % Normal 47-70 [facility] Comment on above: Performed By: #### L 500.2500, L100.0100, L501.2300, L501.5200 ####[facility] [address] [place], [address] Nucleated RBC (Bld) [#/Vol] 0 10*3/uL Normal 0-5 [facility] Comment on above: Performed By: #### L 500.2500, L100.0100, L501.2300, L501.5200 ####[facility] [address] [place], [address] Platelet mean volume (Bld) [Entitic vol] 8.7 fL Normal 6.2-12.0 [facility] Comment on above: Performed By: #### L 500.2500, L100.0100, L501.2300, L501.5200 ####[facility] [address] [place], [address] Platelets (Bld) [#/Vol] 165 10*3/uL Normal 150-450 [facility] Comment on above: Performed By: #### L 500.2500, L100.0100, L501.2300, L501.5200 ####[facility] [address] [place], [address] RBC (Bld) [#/Vol] 4.11 10*6/uL Low 4.6-6.2 [facility] Comment on above: Performed By: #### L 500.2500, L100.0100, L501.2300, L501.5200 ####[facility] [address] [place], [address] RDW SD 47.3 fl High 35.1-43.9 [facility] Comment on above: Performed By: #### L 500.2500, L100.0100, L501.2300, L501.5200 ####[facility] [address] [place], [address] WBC (Bld) [#/Vol] 5.6 10*3/uL Normal 4.4-11.0 [facility] Comment on above: Performed By: #### L 500.2500, L100.0100, L501.2300, L501.5200 ####[facility] [address] [place], [address] Comprehensive Metabolic Prof ilon 03-11-2025 ALB Normal 3.4-4.8 [facility] Comment on above: Result Comment: Miguec elled via OM: MD Ordered Performed By: #### L 100.0100, L500.4050 ####[facility] [address] [place], [address] ALK PHOS Normal 40-129 [facility] Comment on above: Result Comment: Lita hortaed via OM: MD Ordered Performed By: #### L 100.0100, L500.4050 ####[facility] [address] [place], [address] ALT Normal <=46 [facility] Comment on above: Result Comment: Canc elled via OM: MD Ordered Performed By: #### L 100.0100, L500.4050 ####[facility] [address] [place], [address] AST Normal <=37 [facility] Comment on above: Result Comment: Canc elled via OM: MD Ordered Performed By: #### L 100.0100, L500.4050 ####[facility] [address] [place], [address] BUN Normal 4-19 [facility] Comment on above: Result Comment: Canc elled via OM: MD Ordered Performed By: #### L 100.0100, L500.4050 ####[facility] [address] [place], [address] BUN/CRE Normal 10-20 [facility] Comment on above: Result Comment: Canc elled via OM: MD Ordered Performed By: #### L 100.0100, L500.4050 ####[facility] [address] [place], [address] Calcium Normal 7.6-11.0 [facility] Comment on above: Result Comment: Canc elled via OM: MD Ordered Performed By: #### L 100.0100, L500.4050 ####[facility] [address] [place], [address] CL Normal 98-108 [facility] Comment on above: Result Comment: Canc elled via OM: MD Ordered Performed By: #### L 100.0100, L500.4050 ####[facility] [address] [place], [address] CO2 Normal 21.0-32.0 [facility] Comment on above: Result Comment: Canc elled via OM: MD Ordered Performed By: #### L 100.0100, L500.4050 ####[facility] [address] [place], [address] CREAT,SERUM Normal 0.70-1.20 [facility] Comment on above: Result Comment: Canc elled via OM: MD Ordered Performed By: #### L 100.0100, L500.4050 ####[facility] [address] [place], [address] eGFR Normal >60 [facility] Comment on above: Result Comment: Canc elled via OM: MD Ordered Performed By: #### L 100.0100, L500.4050 ####[facility] [address] [place], [address] GAP Normal 5-15 [facility] Comment on above: Result Comment: Canc elled via OM: MD Ordered Performed By: #### L 100.0100, L500.4050 ####[facility] [address] [place], [address] GLU Normal 70-99 [facility] Comment on above: Result Comment: Canc elled via OM: MD Ordered Performed By: #### L 100.0100, L500.4050 ####[facility] [address] [place], [address] Potassium Normal 3.3-5.1 [facility] Comment on above: Result Comment: Canc elled via OM: MD Ordered Performed By: #### L 100.0100, L500.4050 ####[facility] [address] [place], [address] T BILI Normal 0.00-1.30 [facility] Comment on above: Result Comment: Canc elled via OM: MD Ordered Performed By: #### L 100.0100, L500.4050 ####[facility] [address] [place], [address] T PROT Normal 5.9-8.4 [facility] Comment on above: Result Comment: Canc elled via OM: MD Ordered Performed By: #### L 100.0100, L500.4050 ####[facility] [address] [place], [address] Comprehensive Metabolic Profil Normal 133-145 [facility] Comment on above: Result Comment: Canjordon hortaed via OM: MD Ordered Performed By: #### L 100.0100, L500.4050 ####[facility] [address] [place], [address] Gl[facility] deOrdered By: Carlton Davis on 03-11-2025 Glucose [Mass/Vol] 124 mg/dL High 74-106 [facility] Comment on above: MANAGEMENT OF PATIEN T CARE PER NURSING PROTOCOL Magnesiumon 03-11-2025 Magnesium [Mass/Vol] 2.2 mg/dL Normal 1.5-2.2 [facility] Comment on above: Performed By: #### L 500.2500, L100.0100, L501.2300, L501.5200 ####[facility] [address] [place], [address] Magnesium measurement (mass/ volume)Ordered By: Carlton Davis on 03-11-2025 Magnesium (Unsp spec) [Mass/Vol] 2.2 mg/dL 1.5-2.2 [facility] Phosphoruson 03-11-2025 Phosphate [Mass/Vol] 2.4 mg/dL Low 2.7-4.5 [facility] Comment on above: Performed By: #### L 500.2500, L100.0100, L501.2300, L501.5200 ####[facility] [address] [place], [address] ISADORA Comprehensive Panelon ANTI-DNA (DS)AB <1 Normal 0-9 [facility] Comment on above: Result Comment: Nega tive <5 Equivocal 5 - 9 Positive >9 Performed By: #### L 501.6710, L101.9900, L3100.5440 ####[facility] [address] [place], [address] ANTI-SS-A < 0.2 Normal 0.0-0.9 [facility] Comment on above: Performed By: #### L 501.6710, L101.9900, L3100.5440 ####[facility] [address] [place], [address] ANTI-SS-B < 0.2 Normal 0.0-0.9 [facility] Comment on above: Performed By: #### L 501.6710, L101.9900, L3100.5440 ####[facility] [address] [place], [address] Bilirubin, totalOrdered By: Duncan Rashid on 03-10-2025 Bilirubin [Mass/Vol] 0.50 mg/dL 0.00-1.30 [facility] CBC W/Diff, Automatedon Absolute Neut Normal 2.0-7.7 [facility] Comment on above: Result Comment: Canc elled via OM: MD Ordered Performed By: #### L 500.4050, L100.0100 ####[facility] [address] [place], [address] HCT Normal 40-54 [facility] Comment on above: Result Comment: Canc elled via OM: MD Ordered Performed By: #### L 500.4050, L100.0100 ####[facility] [address] [place], [address] HGB Normal 13.0-16.5 [facility] Comment on above: Result Comment: Canc elled via OM: MD Ordered Performed By: #### L 500.4050, L100.0100 ####[facility] [address] [place], [address] MCH Normal 27.0-32.0 [facility] Comment on above: Result Comment: Canc elled via OM: MD Ordered Performed By: #### L 500.4050, L100.0100 ####[facility] [address] [place], [address] MCHC Normal 32-36 [facility] Comment on above: Result Comment: Canc elled via OM: MD Ordered Performed By: #### L 500.4050, L100.0100 ####[facility] [address] [place], [address] MCV Normal 80-94 [facility] Comment on above: Result Comment: Canc elled via OM: MD Ordered Performed By: #### L 500.4050, L100.0100 ####[facility] [address] [place], [address] NEUT% Normal 47-70 [facility] Comment on above: Result Comment: Canc elled via OM: MD Ordered Performed By: #### L 500.4050, L100.0100 ####[facility] [address] [place], [address] PLT Normal 150-450 [facility] Comment on above: Result Comment: Canc elled via OM: MD Ordered Performed By: #### L 500.4050, L100.0100 ####[facility] [address] [place], [address] RBC Normal 4.6-6.2 [facility] Comment on above: Result Comment: Canc elled via OM: MD Ordered Performed By: #### L 500.4050, L100.0100 ####[facility] [address] [place], [address] RDW CV Normal 11.6-14.6 [facility] Comment on above: Result Comment: Canc elled via OM: MD Ordered Performed By: #### L 500.4050, L100.0100 ####[facility] [address] [place], [address] RDW SD Normal 35.1-43.9 [facility] Comment on above: Result Comment: Canc elled via OM: MD Ordered Performed By: #### L 500.4050, L100.0100 ####[facility] [address] [place], [address] WBC Normal 4.4-11.0 [facility] Comment on above: Result Comment: Canc elled via OM: MD Ordered Performed By: #### L 500.4050, L100.0100 ####[facility] [address] [place], [address] CBC-Complete Blood Cnt No Di ffon 03-10-2025 Erythrocyte distribution width (RBC) [Ratio] 14.6 % Normal 11.6-14.6 [facility] Comment on above: Performed By: #### L 500.4050, L100.0500 ####[facility] [address] [place], [address] Hematocrit (Bld) [Volume fraction] 37.3 % Low 40-54 [facility] Comment on above: Performed By: #### L 500.4050, L100.0500 ####[facility] [address] [place], [address] Hemoglobin (Bld) [Mass/Vol] 12.2 g/dL Low 13.0-16.5 [facility] Comment on above: Performed By: #### L 500.4050, L100.0500 ####[facility] [address] [place], [address] MCH (RBC) [Entitic mass] 29.3 pg Normal 27.0-32.0 [facility] Comment on above: Performed By: #### L [id number], L100.0500 ####[facility] [address] [place], [address] MCHC (RBC) [Mass/Vol] 32.7 g/dL Normal 32-36 [facility] Comment on above: Performed By: #### L 500.4050, L100.0500 ####[facility] [address] [place], [address] MCV (RBC) [Entitic vol] 89.7 fL Normal 80-94 [facility] Comment on above: Performed By: #### L [id number], L100.0500 ####[facility] [address] [place], [address] Platelet mean volume (Bld) [Entitic vol] 9.1 fL Normal 6.2-12.0 [facility] Comment on above: Performed By: #### L 500.4050, L100.0500 ####[facility] [address] [place], [address] Platelets (Bld) [#/Vol] 188 10*3/uL Normal 150-450 [facility] Comment on above: Performed By: #### L 500.4050, L100.0500 ####[facility] [address] [place], [address] RBC (Bld) [#/Vol] 4.16 10*6/uL Low 4.6-6.2 [facility] Comment on above: Performed By: #### L 500.4050, L100.0500 ####[facility] [address] [place], [address] RDW SD 48.1 fl High 35.1-43.9 [facility] Comment on above: Performed By: #### L 500.4050, L100.0500 ####[facility] [address] [place], [address] WBC (Bld) [#/Vol] 6.6 10*3/uL Normal 4.4-11.0 [facility] Comment on above: Performed By: #### L 500.4050, L100.0500 ####[facility] [address] [place], [address] Colonoscopy Reporton 025 Colonoscopy Report Normal [facility] Comprehensive Metabolic Prof ilon 03-10-2025 Albumin [Mass/Vol] 4.1 g/dL Normal 3.4-4.8 [facility] Comment on above: Performed By: #### L 500.4050, L100.0500 ####[facility] [address] [place], [address] Albumin/Globulin [Mass ratio] 1.6 {ratio} Normal 0.9-2.4 [facility] Comment on above: Performed By: #### L 500.4050, L100.0500 ####[facility] [address] [place], [address] ALK PHOS 134 U/L High 40-129 [facility] Comment on above: Performed By: #### L 500.4050, L100.0500 ####[facility] [address] [place], [address] ALT [Catalytic activity/Vol] 17 U/L Normal <=46 [facility] Comment on above: Performed By: #### L 500.4050, L100.0500 ####[facility] [address] [place], [address] AST [Catalytic activity/Vol] 22 U/L Normal <=37 [facility] Comment on above: Performed By: #### L 500.4050, L100.0500 ####[facility] [address] [place], [address] Bilirubin [Mass/Vol] 0.50 mg/dL Normal 0.00-1.30 [facility] Comment on above: Performed By: #### L 500.4050, L100.0500 ####[facility] [address] [place], [address] BUN/CRE 10.1 RATIO Normal 10-20 [facility] Comment on above: Performed By: #### L 500.4050, L100.0500 ####[facility] [address] [place], [address] Calcium [Mass/Vol] 8.9 mg/dL Normal 7.6-11.0 [facility] Comment on above: Performed By: #### L 500.4050, L100.0500 ####[facility] [address] [place], [address] Chloride [Moles/Vol] 106 mmol/L Normal 98-108 [facility] Comment on above: Performed By: #### L 500.4050, L100.0500 ####[facility] [address] [place], [address] CO2 [Moles/Vol] 21.0 mmol/L Normal 21.0-32.0 [facility] Comment on above: Performed By: #### L 500.4050, L100.0500 ####[facility] [address] [place], [address] Creatinine [Mass/Vol] 0.99 mg/dL Normal 0.70-1.20 [facility] Comment on above: Performed By: #### L 500.4050, L100.0500 ####[facility] [address] [place], [address] ECRCL 95.99 ml/min Normal 50-250 [facility] Comment on above: Performed By: #### L 500.4050, L100.0500 ####[facility] [address] [place], [address] GAP 12 Normal 5-15 [facility] Comment on above: Performed By: #### L 500.4050, L100.0500 ####[facility] [address] [place], [address] GFR/1.73 sq M.predicted among non-blacks MDRD (S/P/Bld) [Vol rate/Area] 82 mL/min/{1.73_m2} Normal >60 [facility] Comment on above: Result Comment: mL/m in/1.73m2 CKD-EPI Creatinine Equation (2020) Performed By: #### L 500.4050, L100.0500 ####[facility] [address] [place], [address] Globulin (S) [Mass/Vol] 2.5 g/dL Normal 2.2-4.2 [facility] Comment on above: Performed By: #### L 500.4050, L100.0500 ####[facility] [address] [place], [address] Glucose [Mass/Vol] 98 mg/dL Normal 70-99 [facility] Comment on above: Performed By: #### L 500.4050, L100.0500 ####[facility] [address] [place], [address] Potassium [Moles/Vol] 3.4 mmol/L Normal 3.3-5.1 [facility] Comment on above: Performed By: #### L 500.4050, L100.0500 ####[facility] [address] [place], [address] Sodium [Moles/Vol] 139 mmol/L Normal 133-145 [facility] Comment on above: Performed By: #### L 500.4050, L100.0500 ####[facility] [address] [place], [address] T PROT 6.6 g/dL Normal 5.9-8.4 [facility] Comment on above: Performed By: #### L 500.4050, L100.0500 ####[facility] [address] [place], [address] Urea nitrogen [Mass/Vol] 10 mg/dL Normal 4-19 [facility] Comment on above: Performed By: #### L 500.4050, L100.0500 ####[facility] [address] [place], [address] ALB Normal 3.4-4.8 [facility] Comment on above: Result Comment: Canc elled via OM: MD Ordered Performed By: #### L 500.4050, L100.0100 ####[facility] [address] [place], [address] ALK PHOS Normal 40-129 [facility] Comment on above: Result Comment: Canc elled via OM: MD Ordered Performed By: #### L 500.4050, L100.0100 ####[facility] [address] [place], [address] ALT Normal <=46 [facility] Comment on above: Result Comment: Canc elled via OM: MD Ordered Performed By: #### L 500.4050, L100.0100 ####[facility] [address] [place], [address] AST Normal <=37 [facility] Comment on above: Result Comment: Canc elled via OM: MD Ordered Performed By: #### L 500.4050, L100.0100 ####[facility] [address] [place], [address] BUN Normal 4-19 [facility] Comment on above: Result Comment: Canc elled via OM: MD Ordered Performed By: #### L 500.4050, L100.0100 ####[facility] [address] [place], [address] BUN/CRE Normal 10-20 [facility] Comment on above: Result Comment: Canc elled via OM: MD Ordered Performed By: #### L 500.4050, L100.0100 ####[facility] [address] [place], [address] Calcium Normal 7.6-11.0 [facility] Comment on above: Result Comment: Canc elled via OM: MD Ordered Performed By: #### L 500.4050, L100.0100 ####[facility] [address] [place], [address] CL Normal 98-108 [facility] Comment on above: Result Comment: Canc elled via OM: MD Ordered Performed By: #### L 500.4050, L100.0100 ####[facility] [address] [place], [address] CO2 Normal 21.0-32.0 [facility] Comment on above: Result Comment: Canc elled via OM: MD Ordered Performed By: #### L 500.4050, L100.0100 ####[facility] [address] [place], [address] CREAT,SERUM Normal 0.70-1.20 [facility] Comment on above: Result Comment: Canc elled via OM: MD Ordered Performed By: #### L 500.4050, L100.0100 ####[facility] [address] [place], [address] eGFR Normal >60 [facility] Comment on above: Result Comment: Canc elled via OM: MD Ordered Performed By: #### L 500.4050, L100.0100 ####[facility] [address] [place], [address] GAP Normal 5-15 [facility] Comment on above: Result Comment: Canc elled via OM: MD Ordered Performed By: #### L 500.4050, L100.0100 ####[facility] [address] [place], [address] GLU Normal 70-99 [facility] Comment on above: Result Comment: Canc elled via OM: MD Ordered Performed By: #### L 500.4050, L100.0100 ####[facility] [address] [place], [address] Potassium Normal 3.3-5.1 [facility] Comment on above: Result Comment: Canc elled via OM: MD Ordered Performed By: #### L 500.4050, L100.0100 ####[facility] [address] [place], [address] T BILI Normal 0.00-1.30 [facility] Comment on above: Result Comment: Canc elled via OM: MD Ordered Performed By: #### L 500.4050, L100.0100 ####[facility] [address] [place], [address] T PROT Normal 5.9-8.4 [facility] Comment on above: Result Comment: Canc elled via OM: MD Ordered Performed By: #### L 500.4050, L100.0100 ####[facility] [address] [place], [address] Comprehensive Metabolic Profil Normal 133-145 [facility] Comment on above: Result Comment: Canc elled via OM: MD Ordered Performed By: #### L 500.4050, L100.0100 ####[facility] [address] [place], [address] EGD Reporton 03-10-2025 EGD Report Normal [facility] Laboratory - Chemistry and C hemistry - challengeOrdered By: Duncan Rashid on 03-10-2025 AST [Catalytic activity/Vol] 22 U/L <38 [facility] MR/OP.PROVATon 03-10-2025 MR/OP.PROVAT Normal [facility] MR/OP.PROVAT Normal [facility] MR/POSTOP.ANEon 03-10-2025 MR/POSTOP.ANE Normal [facility] MR/UDABHAUQ7xp 03-10-2025 MR/POSTOPAN2 Normal [facility] Serum globulin measurementOr dered By: Duncan Rashid on 03-10-2025 Globulin (S) [Mass/Vol] 2.5 g/dL 2.2-4.2 [facility] Serum or plasma alanine hernandez otransferase (ALT) measurementOrdered By: Duncan Rashid on 03-10-2025 ALT [Catalytic activity/Vol] 17 U/L <47 [facility] Serum or plasma albumin mickie urement (mass/volume)Ordered By: Duncan Rashid on 03-10-2025 Albumin [Mass/Vol] 4.1 g/dL 3.4-4.8 [facility] Serum or plasma albumin/glob ulin mass ratioOrdered By: Duncan Rashid on 03-10-2025 Albumin/Globulin [Mass ratio] 1.6 {ratio} 0.9-2.4 [facility] Serum or plasma alkaline anna sphatase measurementOrdered By: Duncan Rashid on 03-10-2025 ALP [Catalytic activity/Vol] 134 U/L High 40-129 [facility] Surgery Specimen Level Kristina 03-10-2025 Surgery Specimen Level IV Normal [facility] Comment on above: Performed By: #### P SUIV ####[facility] [address] [place], [place], [id number] Total proteinOrdered By: Monica Rashid on 03-10-2025 Protein [Mass/Vol] 6.6 g/dL 5.9-8.4 [facility] Activated partial thrombopla stin time (aPTT) in platelet poor plasma by coagulation aOrdered By: Douglas Mcduffie on 03-09-2025 aPTT Coag (PPP) [Time] 34.0 s 24.1-36.2 [facility] Bedside Glucoseon 03-09-2025 FINGERSTICK GLU 106 mg/dL Normal 74-106 [facility] Comment on above: Result Comment: MARIA ELENA GEMENT OF PATIENT CARE PER NURSING PROTOCOL Performed By: #### L 501.080 ####[facility] [address] [place], [address] CBC W/Diff, Automatedon 08-0 4-2024 Absolute Lymph 1.49 X10 3/uL Normal 0.83-4.51 [facility] Comment on above: Performed By: #### L 100.0100, L500.4050 ####[facility] [address] [place], [address] Absolute Neut 4.0 X10 3/uL Normal 2.0-7.7 [facility] Comment on above: Performed By: #### L 100.0100, L500.4050 ####[facility] [address] [place], [address] Basophils/100 WBC (Bld) 0.5 % Normal 0-1 [facility] Comment on above: Performed By: #### L 100.0100, L500.4050 ####[facility] [address] [place], [address] Eosinophils/100 WBC (Bld) 4.3 % Normal 0-5 [facility] Comment on above: Performed By: #### L 100.0100, L500.4050 ####[facility] [address] [place], [address] Erythrocyte distribution width (RBC) [Ratio] 14.6 % Normal 11.6-14.6 [facility] Comment on above: Performed By: #### L 100.0100, L500.4050 ####[facility] [address] [place], [address] Hematocrit (Bld) [Volume fraction] 36.1 % Low 40-54 [facility] Comment on above: Performed By: #### L 100.0100, L500.4050 ####[facility] [address] [place], [address] Hemoglobin (Bld) [Mass/Vol] 11.7 g/dL Low 13.0-16.5 [facility] Comment on above: Performed By: #### L 100.0100, L500.4050 ####[facility] [address] [place], [address] IG% 0.300 Normal 0.0-0.9 [facility] Comment on above: Result Comment: IG% - Immature Granulocytes (promyelocytes, myelocytes andmetamyelocytes) > 1% indicates that a LEFT SHIFT is Present. Performed By: #### L 100.0100, L500.4050 ####[facility] [address] [place], [address] Lymphocytes/100 WBC (Bld) 23.8 % Normal 19-41 [facility] Comment on above: Performed By: #### L 100.0100, L500.4050 ####[facility] [address] [place], [address] MCH (RBC) [Entitic mass] 29.0 pg Normal 27.0-32.0 [facility] Comment on above: Performed By: #### L 100.0100, L500.4050 ####[facility] [address] [place], [address] MCHC (RBC) [Mass/Vol] 32.4 g/dL Normal 32-36 [facility] Comment on above: Performed By: #### L 100.0100, L500.4050 ####[facility] [address] [place], [address] MCV (RBC) [Entitic vol] 89.4 fL Normal 80-94 [facility] Comment on above: Performed By: #### L 100.0100, L500.4050 ####[facility] [address] [place], [address] Monocytes/100 WBC (Bld) 6.7 % Normal 0-10 [facility] Comment on above: Performed By: #### L 100.0100, L500.4050 ####[facility] [address] [place], [address] Neutrophils/100 WBC (Bld) 64.4 % Normal 47-70 [facility] Comment on above: Performed By: #### L 100.0100, L500.4050 ####[facility] [address] [place], [address] Nucleated RBC (Bld) [#/Vol] 0 10*3/uL Normal 0-5 [facility] Comment on above: Performed By: #### L 100.0100, L500.4050 ####[facility] [address] [place], [address] Platelet mean volume (Bld) [Entitic vol] 8.6 fL Normal 6.2-12.0 [facility] Comment on above: Performed By: #### L 100.0100, L500.4050 ####[facility] [address] [place], [address] Platelets (Bld) [#/Vol] 174 10*3/uL Normal 150-450 [facility] Comment on above: Performed By: #### L 100.0100, L500.4050 ####[facility] [address] [place], [address] RBC (Bld) [#/Vol] 4.04 10*6/uL Low 4.6-6.2 [facility] Comment on above: Performed By: #### L 100.0100, L500.4050 ####[facility] [address] [place], [address] RDW SD 47.8 fl High 35.1-43.9 [facility] Comment on above: Performed By: #### L 100.0100, L500.4050 ####[facility] [address] [place], [address] WBC (Bld) [#/Vol] 6.3 10*3/uL Normal 4.4-11.0 [facility] Comment on above: Performed By: #### L 100.0100, L500.4050 ####[facility] [address] [place], [address] Comprehensive Metabolic Prof ilon 03-09-2025 Albumin [Mass/Vol] 4.0 g/dL Normal 3.4-4.8 [facility] Comment on above: Performed By: #### L 100.0100, L500.4050 ####[facility] [address] [place], [address] Albumin/Globulin [Mass ratio] 1.7 {ratio} Normal 0.9-2.4 [facility] Comment on above: Performed By: #### L 100.0100, L500.4050 ####[facility] [address] [place], [address] ALK PHOS 127 U/L Normal 40-129 [facility] Comment on above: Performed By: #### L 100.0100, L500.4050 ####[facility] [address] [place], [address] ALT [Catalytic activity/Vol] 16 U/L Normal <=46 [facility] Comment on above: Performed By: #### L 100.0100, L500.4050 ####[facility] [address] [place], [address] AST [Catalytic activity/Vol] 20 U/L Normal <=37 [facility] Comment on above: Performed By: #### L 100.0100, L500.4050 ####[facility] [address] [place], [address] Bilirubin [Mass/Vol] 0.40 mg/dL Normal 0.00-1.30 [facility] Comment on above: Performed By: #### L 100.0100, L500.4050 ####[facility] [address] [place], [address] BUN/CRE 10.1 RATIO Normal 10-20 [facility] Comment on above: Performed By: #### L 100.0100, L500.4050 ####[facility] [address] [place], [address] Calcium [Mass/Vol] 8.7 mg/dL Normal 7.6-11.0 [facility] Comment on above: Performed By: #### L 100.0100, L500.4050 ####[facility] [address] [place], [address] Chloride [Moles/Vol] 106 mmol/L Normal 98-108 [facility] Comment on above: Performed By: #### L 100.0100, L500.4050 ####[facility] [address] [place], [address] CO2 [Moles/Vol] 20.2 mmol/L Low 21.0-32.0 [facility] Comment on above: Performed By: #### L 100.0100, L500.4050 ####[facility] [address] [place], [address] Creatinine [Mass/Vol] 1.05 mg/dL Normal 0.70-1.20 [facility] Comment on above: Performed By: #### L 100.0100, L500.4050 ####[facility] [address] [place], [address] ECRCL 90.50 ml/min Normal 50-250 [facility] Comment on above: Performed By: #### L 100.0100, L500.4050 ####[facility] [address] [place], [address] GAP 13 Normal 5-15 [facility] Comment on above: Performed By: #### L 100.0100, L500.4050 ####[facility] [address] [place], [address] GFR/1.73 sq M.predicted among non-blacks MDRD (S/P/Bld) [Vol rate/Area] 76 mL/min/{1.73_m2} Normal >60 [facility] Comment on above: Result Comment: mL/m in/1.73m2 CKD-EPI Creatinine Equation (2020) Performed By: #### L 100.0100, L500.4050 ####[facility] [address] [place], [address] Globulin (S) [Mass/Vol] 2.3 g/dL Normal 2.2-4.2 [facility] Comment on above: Performed By: #### L 100.0100, L500.4050 ####[facility] [address] [place], [address] Glucose [Mass/Vol] 106 mg/dL High 70-99 [facility] Comment on above: Performed By: #### L 100.0100, L500.4050 ####[facility] [address] [place], [address] Potassium [Moles/Vol] 3.2 mmol/L Low 3.3-5.1 [facility] Comment on above: Performed By: #### L 100.0100, L500.4050 ####[facility] [address] [place], [address] Sodium [Moles/Vol] 139 mmol/L Normal 133-145 [facility] Comment on above: Performed By: #### L 100.0100, L500.4050 ####[facility] [address] [place], [address] T PROT 6.4 g/dL Normal 5.9-8.4 [facility] Comment on above: Performed By: #### L 100.0100, L500.4050 ####[facility] [address] [place], [address] Urea nitrogen [Mass/Vol] 11 mg/dL Normal 4-19 [facility] Comment on above: Performed By: #### L 100.0100, L500.4050 ####[facility] [address] [place], [address] Electrocardiogram reportOrde red By: Pipe Salguero on 03-09-2025 EKG study [facility] [address] [place] [address] 12 Lead EKG 03/05/25 1204 MR#: [id number] Acct: [id number] Name: EDER BREEN Rep #:4 : [id number] From: Pipe Salguero MD Attending Dr: Dr. Duncan Rashid DO Status: ADM IN Ordering Dr: Rustam Warren MD Date: Location: [facility] Sex: M C Admitted: 03/08/25 Test Reason [...] normal ECG Confirmed by PIPE SALGUERO MD ([id number]), photo editor SAL BRAVO ([id number]) on 03/09/2025 8:18:06 AM Referred By: Confirmed By: PIPE SALGUERO MD 03/09/25 0818 Date _ Pipe Salguero MD CC: Dr. Rustam Warren MD; Dr. Duncan Rashid DO; Dr. Hari Oneill DO ~ Signed [facility] Other Phone: International normalized rat io (INR) calculationOrdered By: Danae Stanton on 03-09-2025 INR Coag (Bld) [Relative time] 3.4 {INR} [facility] Magnesiumon 03-09-2025 Magnesium [Mass/Vol] 2.1 mg/dL Normal 1.5-2.2 [facility] Comment on above: Performed By: #### L 501.5200, L501.2300 ####[facility] [address] [place], [address] Partial Thromboplast Timeon 03-09-2025 aPTT Coag (Bld) [Time] 34.0 s Normal 24.1-36.2 [facility] Comment on above: Performed By: #### L 300.3900, L300.4310 ####[facility] [address] [place], [address] Phosphoruson 03-09-2025 Phosphate [Mass/Vol] 3.5 mg/dL Normal 2.7-4.5 [facility] Comment on above: Performed By: #### L 501.5200, L501.2300 ####[facility] [address] [place], [address] Prothrombin Time w/INRon INR Coag (PPP) [Relative time] 3.4 {INR} Normal [facility] Comment on above: Performed By: #### L 300.3900, L300.4310 ####[facility] [address] [place], [address] PT Coag (PPP) [Time] 35.1 s High 11.7-14.9 [facility] Comment on above: Performed By: #### L 300.3900, L300.4310 ####[facility] [address] [place], [address] Prothrombin timeOrdered By: Danae Stanton on 03-09-2025 PT Coag (PPP) [Time] 35.1 s High 11.7-14.9 [facility] Basic Metabolic Profile (BMP )on 03-08-2025 BUN Normal 4-19 [facility] Comment on above: Result Comment: Canc elled via OM: Order cancelled - Patient discharged Performed By: #### L 100.0100, L500.2500 ####[facility] [address] [place], [address] BUN/CRE Normal 10-20 [facility] Comment on above: Result Comment: Canc elled via OM: Order cancelled - Patient discharged Performed By: #### L 100.0100, L500.2500 ####[facility] [address] [place], [address] Calcium Normal 7.6-11.0 [facility] Comment on above: Result Comment: Canc elled via OM: Order cancelled - Patient discharged Performed By: #### L 100.0100, L500.2500 ####[facility] [address] [place], [address] CL Normal 98-108 [facility] Comment on above: Result Comment: Canc elled via OM: Order cancelled - Patient discharged Performed By: #### L 100.0100, L500.2500 ####[facility] [address] [place], [address] CO2 Normal 21.0-32.0 [facility] Comment on above: Result Comment: Canc elled via OM: Order cancelled - Patient discharged Performed By: #### L 100.0100, L500.2500 ####[facility] [address] [place], [address] CREAT,SERUM Normal 0.70-1.20 [facility] Comment on above: Result Comment: Canc elled via OM: Order cancelled - Patient discharged Performed By: #### L 100.0100, L500.2500 ####[facility] [address] [place], [address] eGFR Normal >60 [facility] Comment on above: Result Comment: Canc elled via OM: Order cancelled - Patient discharged Performed By: #### L 100.0100, L500.2500 ####[facility] [address] [place], [address] GAP Normal 5-15 [facility] Comment on above: Result Comment: Canc elled via OM: Order cancelled - Patient discharged Performed By: #### L 100.0100, L500.2500 ####[facility] [address] [place], [address] GLU Normal 70-99 [facility] Comment on above: Result Comment: Canc elled via OM: Order cancelled - Patient discharged Performed By: #### L 100.0100, L500.2500 ####[facility] [address] [place], [address] Potassium Normal 3.3-5.1 [facility] Comment on above: Result Comment: Canc elled via OM: Order cancelled - Patient discharged Performed By: #### L 100.0100, L500.2500 ####[facility] [id number] [place], [address] Basic Metabolic Profile (BMP) Normal 133-145 [facility] Comment on above: Result Comment: Canc elled via OM: Order cancelled - Patient discharged Performed By: #### L 100.0100, L500.2500 ####[facility] [id number] [place], [address] CBC W/Diff, Automatedon 08-0 Absolute Neut Normal 2.0-7.7 [facility] Comment on above: Result Comment: Canc elled via OM: Order cancelled - Patient discharged Performed By: #### L 100.0100, L500.2500 ####[facility] [id number] [place], [address] HCT Normal 40-54 [facility] Comment on above: Result Comment: Canc elled via OM: Order cancelled - Patient discharged Performed By: #### L 100.0100, L500.2500 ####[facility] [address] [place], [address] HGB Normal 13.0-16.5 [facility] Comment on above: Result Comment: Canc elled via OM: Order cancelled - Patient discharged Performed By: #### L 100.0100, L500.2500 ####[facility] [address] [place], [address] MCH Normal 27.0-32.0 [facility] Comment on above: Result Comment: Canc elled via OM: Order cancelled - Patient discharged Performed By: #### L 100.0100, L500.2500 ####[facility] [address] [place], [address] MCHC Normal 32-36 [facility] Comment on above: Result Comment: Canc elled via OM: Order cancelled - Patient discharged Performed By: #### L 100.0100, L500.2500 ####[facility] [address] [place], [address] MCV Normal 80-94 [facility] Comment on above: Result Comment: Canc elled via OM: Order cancelled - Patient discharged Performed By: #### L 100.0100, L500.2500 ####[facility] [address] [place], [address] NEUT% Normal 47-70 [facility] Comment on above: Result Comment: Canc elled via OM: Order cancelled - Patient discharged Performed By: #### L 100.0100, L500.2500 ####[facility] [address] [place], [address] PLT Normal 150-450 [facility] Comment on above: Result Comment: Canc elled via OM: Order cancelled - Patient discharged Performed By: #### L 100.0100, L500.2500 ####[facility] [address] [place], [address] RBC Normal 4.6-6.2 [facility] Comment on above: Result Comment: Canc elled via OM: Order cancelled - Patient discharged Performed By: #### L 100.0100, L500.2500 ####[facility] [address] [place], [address] RDW CV Normal 11.6-14.6 [facility] Comment on above: Result Comment: Canc elled via OM: Order cancelled - Patient discharged Performed By: #### L 100.0100, L500.2500 ####[facility] [address] [place], [address] RDW SD Normal 35.1-43.9 [facility] Comment on above: Result Comment: Canc elled via OM: Order cancelled - Patient discharged Performed By: #### L 100.0100, L500.2500 ####[facility] [address] [place], [address] WBC Normal 4.4-11.0 [facility] Comment on above: Result Comment: Canc elled via OM: Order cancelled - Patient discharged Performed By: #### L 100.0100, L500.2500 ####[facility] [address] [place], [address] Absolute Lymph 1.33 X10 3/uL Normal 0.83-4.51 [facility] Comment on above: Performed By: #### L 500.4050, L100.0100 ####[facility] [address] [place], [address] Absolute Neut 4.2 X10 3/uL Normal 2.0-7.7 [facility] Comment on above: Performed By: #### L 500.4050, L100.0100 ####[facility] [address] [place], [address] Basophils/100 WBC (Bld) 0.5 % Normal 0-1 [facility] Comment on above: Performed By: #### L 500.4050, L100.0100 ####[facility] [address] [place], [address] Eosinophils/100 WBC (Bld) 4.0 % Normal 0-5 [facility] Comment on above: Performed By: #### L 500.4050, L100.0100 ####[facility] [address] [place], [address] Erythrocyte distribution width (RBC) [Ratio] 14.7 % High 11.6-14.6 [facility] Comment on above: Performed By: #### L 500.4050, L100.0100 ####[facility] [address] [place], [address] Hematocrit (Bld) [Volume fraction] 36.0 % Low 40-54 [facility] Comment on above: Performed By: #### L 500.4050, L100.0100 ####[facility] [address] [place], [address] Hemoglobin (Bld) [Mass/Vol] 11.8 g/dL Low 13.0-16.5 [facility] Comment on above: Performed By: #### L 500.4050, L100.0100 ####[facility] [address] [place], [address] IG% 0.300 Normal 0.0-0.9 [facility] Comment on above: Result Comment: IG% - Immature Granulocytes (promyelocytes, myelocytes andmetamyelocytes) > 1% indicates that a LEFT SHIFT is Present. Performed By: #### L 500.4050, L100.0100 ####[facility] [address] [place], [address] Lymphocytes/100 WBC (Bld) 21.2 % Normal 19-41 [facility] Comment on above: Performed By: #### L 500.4050, L100.0100 ####[facility] [address] [place], [address] MCH (RBC) [Entitic mass] 29.3 pg Normal 27.0-32.0 [facility] Comment on above: Performed By: #### L 500.4050, L100.0100 ####[facility] [address] [place], [address] MCHC (RBC) [Mass/Vol] 32.8 g/dL Normal 32-36 [facility] Comment on above: Performed By: #### L 500.4050, L100.0100 ####[facility] [address] [place], [address] MCV (RBC) [Entitic vol] 89.3 fL Normal 80-94 [facility] Comment on above: Performed By: #### L 500.4050, L100.0100 ####[facility] [address] [place], [address] Monocytes/100 WBC (Bld) 7.2 % Normal 0-10 [facility] Comment on above: Performed By: #### L 500.4050, L100.0100 ####[facility] [address] [place], [address] Neutrophils/100 WBC (Bld) 66.8 % Normal 47-70 [facility] Comment on above: Performed By: #### L 500.4050, L100.0100 ####[facility] [address] [place], [address] Nucleated RBC (Bld) [#/Vol] 0 10*3/uL Normal 0-5 [facility] Comment on above: Performed By: #### L 500.4050, L100.0100 ####[facility] [address] [place], [address] Platelet mean volume (Bld) [Entitic vol] 8.6 fL Normal 6.2-12.0 [facility] Comment on above: Performed By: #### L 500.4050, L100.0100 ####[facility] [address] [place], [address] Platelets (Bld) [#/Vol] 201 10*3/uL Normal 150-450 [facility] Comment on above: Performed By: #### L 500.4050, L100.0100 ####[facility] [address] [place], [address] RBC (Bld) [#/Vol] 4.03 10*6/uL Low 4.6-6.2 [facility] Comment on above: Performed By: #### L 500.4050, L100.0100 ####[facility] [address] [place], [address] RDW SD 47.9 fl High 35.1-43.9 [facility] Comment on above: Performed By: #### L 500.4050, L100.0100 ####[facility] [address] [place], [address] WBC (Bld) [#/Vol] 6.3 10*3/uL Normal 4.4-11.0 [facility] Comment on above: Performed By: #### L 500.4050, L100.0100 ####[facility] [address] [place], [address] Comprehensive Metabolic Prof [facility] 03-08-2025 Albumin [Mass/Vol] 4.1 g/dL Normal 3.4-4.8 [facility] Comment on above: Performed By: #### L 500.4050, L100.0100 ####[facility] [address] [place], [address] Albumin/Globulin [Mass ratio] 1.7 {ratio} Normal 0.9-2.4 [facility] Comment on above: Performed By: #### L 500.4050, L100.0100 ####[facility] [address] [place], [address] ALK PHOS 124 U/L Normal 40-129 [facility] Comment on above: Performed By: #### L 500.4050, L100.0100 ####[facility] [address] [place], [address] ALT [Catalytic activity/Vol] 18 U/L Normal <=46 [facility] Comment on above: Performed By: #### L 500.4050, L100.0100 ####[facility] [address] [place], [address] AST [Catalytic activity/Vol] 21 U/L Normal <=37 [facility] Comment on above: Performed By: #### L 500.4050, L100.0100 ####[facility] [address] [place], [address] Bilirubin [Mass/Vol] 0.41 mg/dL Normal 0.00-1.30 [facility] Comment on above: Performed By: #### L 500.4050, L100.0100 ####[facility] [address] [place], [address] BUN/CRE 11.8 RATIO Normal 10-20 [facility] Comment on above: Performed By: #### L 500.4050, L100.0100 ####[facility] [address] [place], [address] Calcium [Mass/Vol] 8.9 mg/dL Normal 7.6-11.0 [facility] Comment on above: Performed By: #### L 500.4050, L100.0100 ####[facility] [address] [place], [address] Chloride [Moles/Vol] 107 mmol/L Normal 98-108 [facility] Comment on above: Performed By: #### L 500.4050, L100.0100 ####[facility] [address] [place], [address] CO2 [Moles/Vol] 22.5 mmol/L Normal 21.0-32.0 [facility] Comment on above: Performed By: #### L 500.4050, L100.0100 ####[facility] [address] [place], [address] Creatinine [Mass/Vol] 0.96 mg/dL Normal 0.70-1.20 [facility] Comment on above: Performed By: #### L 500.4050, L100.0100 ####[facility] [address] [place], [address] ECRCL 98.99 ml/min Normal 50-250 [facility] Comment on above: Performed By: #### L 500.4050, L100.0100 ####[facility] [address] [place], [address] GAP 11 Normal 5-15 [facility] Comment on above: Performed By: #### L 500.4050, L100.0100 ####[facility] [address] [place], [address] GFR/1.73 sq M.predicted among non-blacks MDRD (S/P/Bld) [Vol rate/Area] 85 mL/min/{1.73_m2} Normal >60 [facility] Comment on above: Result Comment: mL/m in/1.73m2 CKD-EPI Creatinine Equation (2020) Performed By: #### L 500.4050, L100.0100 ####[facility] [address] [place], [address] Globulin (S) [Mass/Vol] 2.4 g/dL Normal 2.2-4.2 [facility] Comment on above: Performed By: #### L 500.4050, L100.0100 ####[facility] [address] [place], [address] Glucose [Mass/Vol] 97 mg/dL Normal 70-99 [facility] Comment on above: Performed By: #### L 500.4050, L100.0100 ####[facility] [address] [place], [address] Potassium [Moles/Vol] 3.3 mmol/L Normal 3.3-5.1 [facility] Comment on above: Performed By: #### L 500.4050, L100.0100 ####[facility] [address] [place], [address] Sodium [Moles/Vol] 141 mmol/L Normal 133-145 [facility] Comment on above: Performed By: #### L 500.4050, L100.0100 ####[facility] [address] [place], [address] T PROT 6.5 g/dL Normal 5.9-8.4 [facility] Comment on above: Performed By: #### L 500.4050, L100.0100 ####[facility] [address] [place], [address] Urea nitrogen [Mass/Vol] 11 mg/dL Normal 4-19 [facility] Comment on above: Performed By: #### L 500.4050, L100.0100 ####[facility] [address] [place], [address] ENTERIC PATHOGEN PANEL STOOL on 03-08-2025 EP PANEL Normal [facility] Comment on above: Performed By: #### M 100.0605, M100.637 ####[facility] [address] [place], [place], [address] Prothrombin Time w/INRon INR Coag (PPP) [Relative time] 3.6 {INR} Normal [facility] Comment on above: Performed By: #### L 300.3900 ####[facility] [address] [place], [address] PT Coag (PPP) [Time] 36.7 s High 11.7-14.9 [facility] Comment on above: Performed By: #### L 300.3900 ####[facility] [address] [place], [address] Serum DNA double strand anti body assay (units/volume)Ordered By: Luis A Singh on 03-08-2025 DNA double strand Ab Qn (S) [IU]/mL 0-9 [facility] Comment on above: Negative <5 Equivoca l 5 - 9 Positive >9 Serum Scl-70 antibody assay (units/volume)Ordered By: Luis A Singh on 03-08-2025 SCL-70 extractable nuclear Ab Qn (S) <0.2 AI 0.0-0.9 [facility] Comment on above: Previous reported re sult: TNP AIEdited by: FLIP on 03/10/25:1308 AMENDED REPORT 03/10/25 1308 ANTISCLER previously reported as: Test not performed Stool Lactoferrin/WBCon WBCST Normal Reference Ran ge = Negative Fecal WBC Lactoferrin Negative: No Fecal WBC Lactoferrin present Normal [facility] Comment on above: Performed By: #### M 100.0605, M100.637 ####[facility] [address] [place], [address] Stool lactoferrin detection by immunoassayOrdered By: Luis A Singh on 03-08-2025 Lactoferrin IA Ql (Stl) [facility] Basic Metabolic Profile (BMP )on 03-07-2025 BUN Normal 4-19 [facility] Comment on above: Result Comment: Canc elled via OM: Order cancelled - Patient discharged Performed By: #### L 100.0100, L500.2500 ####[facility] [address] [place], [address] BUN/CRE Normal 10-20 [facility] Comment on above: Result Comment: Canc elled via OM: Order cancelled - Patient discharged Performed By: #### L 100.0100, L500.2500 ####[facility] [address] [place], [address] Calcium Normal 7.6-11.0 [facility] Comment on above: Result Comment: Canc elled via OM: Order cancelled - Patient discharged Performed By: #### L 100.0100, L500.2500 ####[facility] [address] [place], [address] CL Normal 98-108 [facility] Comment on above: Result Comment: Canc elled via OM: Order cancelled - Patient discharged Performed By: #### L 100.0100, L500.2500 ####[facility] [address] [place], [address] CO2 Normal 21.0-32.0 [facility] Comment on above: Result Comment: Canc elled via OM: Order cancelled - Patient discharged Performed By: #### L 100.0100, L500.2500 ####[facility] [address] [place], [address] CREAT,SERUM Normal 0.70-1.20 [facility] Comment on above: Result Comment: Canc elled via OM: Order cancelled - Patient discharged Performed By: #### L 100.0100, L500.2500 ####[facility] [address] [place], [address] eGFR Normal >60 [facility] Comment on above: Result Comment: Canc elled via OM: Order cancelled - Patient discharged Performed By: #### L 100.0100, L500.2500 ####[facility] [address] [place], [address] GAP Normal 5-15 [facility] Comment on above: Result Comment: Canc elled via OM: Order cancelled - Patient discharged Performed By: #### L 100.0100, L500.2500 ####[facility] [address] [place], [address] GLU Normal 70-99 [facility] Comment on above: Result Comment: Canc elled via OM: Order cancelled - Patient discharged Performed By: #### L 100.0100, L500.2500 ####[facility] [address] [place], [address] Potassium Normal 3.3-5.1 [facility] Comment on above: Result Comment: Canc elled via OM: Order cancelled - Patient discharged Performed By: #### L 100.0100, L500.2500 ####[facility] [address] [place], [address] Basic Metabolic Profile (BMP) Normal 133-145 [facility] Comment on above: Result Comment: Canc elled via OM: Order cancelled - Patient discharged Performed By: #### L 100.0100, L500.2500 ####[facility] [address] [place], [address] CBC W/Diff, Automatedon 08-0 2-2024 Absolute Lymph 1.46 X10 3/uL Normal 0.83-4.51 [facility] Comment on above: Performed By: #### L 500.4050, L100.0100 ####[facility] [address] [place], [address] Absolute Neut 3.2 X10 3/uL Normal 2.0-7.7 [facility] Comment on above: Performed By: #### L 500.4050, L100.0100 ####[facility] [address] [place], [address] Basophils/100 WBC (Bld) 0.7 % Normal 0-1 [facility] Comment on above: Performed By: #### L 500.4050, L100.0100 ####[facility] [address] [place], [address] Eosinophils/100 WBC (Bld) 4.6 % Normal 0-5 [facility] Comment on above: Performed By: #### L 500.4050, L100.0100 ####[facility] [address] [place], [address] Erythrocyte distribution width (RBC) [Ratio] 14.6 % Normal 11.6-14.6 [facility] Comment on above: Performed By: #### L 500.4050, L100.0100 ####[facility] [address] [place], [address] Hematocrit (Bld) [Volume fraction] 36.1 % Low 40-54 [facility] Comment on above: Performed By: #### L 500.4050, L100.0100 ####[facility] [address] [place], [address] Hemoglobin (Bld) [Mass/Vol] 11.7 g/dL Low 13.0-16.5 [facility] Comment on above: Performed By: #### L 500.4050, L100.0100 ####[facility] [address] [place], [address] IG% 0.400 Normal 0.0-0.9 [facility] Comment on above: Result Comment: IG% - Immature Granulocytes (promyelocytes, myelocytes andmetamyelocytes) > 1% indicates that a LEFT SHIFT is Present. Performed By: #### L 500.4050, L100.0100 ####[facility] [address] [place], [address] Lymphocytes/100 WBC (Bld) 26.8 % Normal 19-41 [facility] Comment on above: Performed By: #### L 500.4050, L100.0100 ####[facility] [address] [place], [address] MCH (RBC) [Entitic mass] 29.0 pg Normal 27.0-32.0 [facility] Comment on above: Performed By: #### L 500.4050, L100.0100 ####[facility] [address] [place], [address] MCHC (RBC) [Mass/Vol] 32.4 g/dL Normal 32-36 [facility] Comment on above: Performed By: #### L 500.4050, L100.0100 ####[facility] [address] [place], [address] MCV (RBC) [Entitic vol] 89.6 fL Normal 80-94 [facility] Comment on above: Performed By: #### L 500.4050, L100.0100 ####[facility] [address] [place], [address] Monocytes/100 WBC (Bld) 9.0 % Normal 0-10 [facility] Comment on above: Performed By: #### L 500.4050, L100.0100 ####[facility] [address] [place], [address] Neutrophils/100 WBC (Bld) 58.5 % Normal 47-70 [facility] Comment on above: Performed By: #### L 500.4050, L100.0100 ####[facility] [address] [place], [address] Nucleated RBC (Bld) [#/Vol] 0 10*3/uL Normal 0-5 [facility] Comment on above: Performed By: #### L 500.4050, L100.0100 ####[facility] [address] [place], [address] Platelet mean volume (Bld) [Entitic vol] 9.3 fL Normal 6.2-12.0 [facility] Comment on above: Performed By: #### L 500.4050, L100.0100 ####[facility] [address] [place], [address] Platelets (Bld) [#/Vol] 197 10*3/uL Normal 150-450 [facility] Comment on above: Performed By: #### L 500.4050, L100.0100 ####[facility] [address] [place], [address] RBC (Bld) [#/Vol] 4.03 10*6/uL Low 4.6-6.2 [facility] Comment on above: Performed By: #### L 500.4050, L100.0100 ####[facility] [address] [place], [address] RDW SD 47.8 fl High 35.1-43.9 [facility] Comment on above: Performed By: #### L 500.4050, L100.0100 ####[facility] [address] [place], [address] WBC (Bld) [#/Vol] 5.5 10*3/uL Normal 4.4-11.0 [facility] Comment on above: Performed By: #### L 500.4050, L100.0100 ####[facility] [address] [place], [address] Absolute Neut Normal 2.0-7.7 [facility] Comment on above: Result Comment: Canc elled via OM: Order cancelled - Patient discharged Performed By: #### L 100.0100, L500.2500 ####[facility] [address] [place], [address] HCT Normal 40-54 [facility] Comment on above: Result Comment: Canc elled via OM: Order cancelled - Patient discharged Performed By: #### L 100.0100, L500.2500 ####[facility] [address] [place], [address] HGB Normal 13.0-16.5 [facility] Comment on above: Result Comment: Canc elled via OM: Order cancelled - Patient discharged Performed By: #### L 100.0100, L500.2500 ####[facility] [address] [place], [address] MCH Normal 27.0-32.0 [facility] Comment on above: Result Comment: Canc elled via OM: Order cancelled - Patient discharged Performed By: #### L 100.0100, L500.2500 ####[facility] [address] [place], [address] MCHC Normal 32-36 [facility] Comment on above: Result Comment: Canc elled via OM: Order cancelled - Patient discharged Performed By: #### L 100.0100, L500.2500 ####[facility] [address] [place], [address] MCV Normal 80-94 [facility] Comment on above: Result Comment: Canc elled via OM: Order cancelled - Patient discharged Performed By: #### L 100.0100, L500.2500 ####[facility] [address] [place], [address] NEUT% Normal 47-70 [facility] Comment on above: Result Comment: Canc elled via OM: Order cancelled - Patient discharged Performed By: #### L 100.0100, L500.2500 ####[facility] [address] [place], [address] PLT Normal 150-450 [facility] Comment on above: Result Comment: Canc elled via OM: Order cancelled - Patient discharged Performed By: #### L 100.0100, L500.2500 ####[facility] [address] [place], [address] RBC Normal 4.6-6.2 [facility] Comment on above: Result Comment: Canc elled via OM: Order cancelled - Patient discharged Performed By: #### L 100.0100, L500.2500 ####[facility] [address] [place], [address] RDW CV Normal 11.6-14.6 [facility] Comment on above: Result Comment: Canc elled via OM: Order cancelled - Patient discharged Performed By: #### L 100.0100, L500.2500 ####[facility] [address] [place], [address] RDW SD Normal 35.1-43.9 [facility] Comment on above: Result Comment: Canc elled via OM: Order cancelled - Patient discharged Performed By: #### L 100.0100, L500.2500 ####[facility] [address] [place], [address] WBC Normal 4.4-11.0 [facility] Comment on above: Result Comment: Canc elled via OM: Order cancelled - Patient discharged Performed By: #### L 100.0100, L500.2500 ####[facility] [address] [place], [address] CRPon 03-07-2025 C-REACTIVE PROT 10.40 mg/L High 0.0-3.0 [facility] Comment on above: Performed By: #### L 501.6710, L101.9900, L3100.5440 ####[facility] [address] [place], [address] Comprehensive Metabolic Prof ilon 03-07-2025 Albumin [Mass/Vol] 4.0 g/dL Normal 3.4-4.8 [facility] Comment on above: Performed By: #### L 500.4050, L100.0100 ####[facility] [address] [place], [address] Albumin/Globulin [Mass ratio] 1.6 {ratio} Normal 0.9-2.4 [facility] Comment on above: Performed By: #### L 500.4050, L100.0100 ####[facility] [address] [place], [address] ALK PHOS 119 U/L Normal 40-129 [facility] Comment on above: Performed By: #### L 500.4050, L100.0100 ####[facility] [address] [place], [address] ALT [Catalytic activity/Vol] 16 U/L Normal <=46 [facility] Comment on above: Performed By: #### L 500.4050, L100.0100 ####[facility] [address] [place], [address] AST [Catalytic activity/Vol] 21 U/L Normal <=37 [facility] Comment on above: Performed By: #### L 500.4050, L100.0100 ####[facility] [address] [place], [address] Bilirubin [Mass/Vol] 0.42 mg/dL Normal 0.00-1.30 [facility] Comment on above: Performed By: #### L 500.4050, L100.0100 ####[facility] [address] [place], [address] BUN/CRE 11.3 RATIO Normal 10-20 [facility] Comment on above: Performed By: #### L 500.4050, L100.0100 ####[facility] [address] [place], [address] Calcium [Mass/Vol] 8.8 mg/dL Normal 7.6-11.0 [facility] Comment on above: Performed By: #### L 500.4050, L100.0100 ####[facility] [address] [place], [address] Chloride [Moles/Vol] 110 mmol/L High 98-108 [facility] Comment on above: Performed By: #### L 500.4050, L100.0100 ####[facility] [address] [place], [address] CO2 [Moles/Vol] 19.7 mmol/L Low 21.0-32.0 [facility] Comment on above: Performed By: #### L 500.4050, L100.0100 ####[facility] [address] [place], [address] Creatinine [Mass/Vol] 0.90 mg/dL Normal 0.70-1.20 [facility] Comment on above: Performed By: #### L 500.4050, L100.0100 ####[facility] [address] [place], [address] ECRCL 105.59 ml/min Normal 50-250 [facility] Comment on above: Performed By: #### L 500.4050, L100.0100 ####[facility] [address] [place], [address] GAP 13 Normal 5-15 [facility] Comment on above: Performed By: #### L 500.4050, L100.0100 ####[facility] [address] [place], [address] GFR/1.73 sq M.predicted among non-blacks MDRD (S/P/Bld) [Vol rate/Area] 91 mL/min/{1.73_m2} Normal >60 [facility] Comment on above: Result Comment: mL/m in/1.73m2 CKD-EPI Creatinine Equation (2020) Performed By: #### L 500.4050, L100.0100 ####[facility] [address] [place], [address] Globulin (S) [Mass/Vol] 2.4 g/dL Normal 2.2-4.2 [facility] Comment on above: Performed By: #### L 500.4050, L100.0100 ####[facility] [address] [place], [address] Glucose [Mass/Vol] 91 mg/dL Normal 70-99 [facility] Comment on above: Performed By: #### L 500.4050, L100.0100 ####[facility] [address] [place], [address] Potassium [Moles/Vol] 3.4 mmol/L Normal 3.3-5.1 [facility] Comment on above: Performed By: #### L 500.4050, L100.0100 ####[facility] [address] [place], [address] Sodium [Moles/Vol] 142 mmol/L Normal 133-145 [facility] Comment on above: Performed By: #### L 500.4050, L100.0100 ####[facility] [address] [place], [address] T PROT 6.4 g/dL Normal 5.9-8.4 [facility] Comment on above: Performed By: #### L 500.4050, L100.0100 ####[facility] [address] [place], [address] Urea nitrogen [Mass/Vol] 10 mg/dL Normal 4-19 [facility] Comment on above: Performed By: #### L 500.4050, L100.0100 ####[facility] [address] [place], [address] Erythrocyte Sed Rateon 03-07 SED RATE 18 mm/hr Normal 0-20 [facility] Comment on above: Performed By: #### L 501.6710, L101.9900, L3100.5440 ####[facility] [address] [place], [address] Erythrocyte sedimentation ra teOrdered By: Luis A Singh on 03-07-2025 ESR (Bld) [Velocity] 18 mm/h 0-20 [facility] Prothrombin Time w/INRon INR Coag (PPP) [Relative time] 2.8 {INR} Normal [facility] Comment on above: Performed By: #### L 300.3900 ####[facility] [address] [place], [address] PT Coag (PPP) [Time] 30.4 s High 11.7-14.9 [facility] Comment on above: Performed By: #### L 300.3900 ####[facility] [address] [place], [place], [id number]) Serum or plasma C reactive p rotein measurement (mass/volume)Ordered By: Luis A Singh on 03-07-2025 CRP [Mass/Vol] 10.40 mg/L High 0.0-3.0 [facility] Basic Metabolic Profile (BMP )on 03-06-2025 BUN/CRE 10.6 RATIO Normal 10- [facility] Comment on above: Performed By: #### L 500.2500, L100.0500 ####[facility] [address] [place], [address] Calcium [Mass/Vol] 8.9 mg/dL Normal 7.6-11.0 [facility] Comment on above: Performed By: #### L 500.2500, L100.0500 ####[facility] [address] [place], [address] Chloride [Moles/Vol] 106 mmol/L Normal 98-108 [facility] Comment on above: Performed By: #### L 500.2500, L100.0500 ####[facility] [address] [place], [address] CO2 [Moles/Vol] 20.9 mmol/L Low 21.0-32.0 [facility] Comment on above: Performed By: #### L 500.2500, L100.0500 ####[facility] [address] [place], [address] Creatinine [Mass/Vol] 0.80 mg/dL Normal 0.70-1.20 [facility] Comment on above: Performed By: #### L 500.2500, L100.0500 ####[facility] [address] [place], [address] ECRCL 118.78 ml/min Normal 50-250 [facility] Comment on above: Performed By: #### L 500.2500, L100.0500 ####[facility] [address] [place], [address] GAP 12 Normal 5-15 [facility] Comment on above: Performed By: #### L 500.2500, L100.0500 ####[facility] [address] [place], [address] GFR/1.73 sq M.predicted among non-blacks MDRD (S/P/Bld) [Vol rate/Area] 95 mL/min/{1.73_m2} Normal >60 [facility] Comment on above: Result Comment: mL/m in/1.73m2 CKD-EPI Creatinine Equation (2020) Performed By: #### L 500.2500, L100.0500 ####[facility] [address] [place], [address] Glucose [Mass/Vol] 105 mg/dL High 70-99 [facility] Comment on above: Performed By: #### L 500.2500, L100.0500 ####[facility] [address] [place], [address] Potassium [Moles/Vol] 3.2 mmol/L Low 3.3-5.1 [facility] Comment on above: Performed By: #### L 500.2500, L100.0500 ####[facility] [address] [place], [address] Sodium [Moles/Vol] 139 mmol/L Normal 133-145 [facility] Comment on above: Performed By: #### L 500.2500, L100.0500 ####[facility] [address] [place], [address] Urea nitrogen [Mass/Vol] 8 mg/dL Normal 4-19 [facility] Comment on above: Performed By: #### L 500.2500, L100.0500 ####[facility] [address] [place], [address] BUN Normal 4-19 [facility] Comment on above: Result Comment: Canc elled via OM: Order cancelled - Patient discharged Performed By: #### L 500.2500, L100.0100 ####[facility] [address] [place], [address] BUN/CRE Normal 10-20 [facility] Comment on above: Result Comment: Canc elled via OM: Order cancelled - Patient discharged Performed By: #### L 500.2500, L100.0100 ####[facility] [address] [place], [address] Calcium Normal 7.6-11.0 [facility] Comment on above: Result Comment: Canc elled via OM: Order cancelled - Patient discharged Performed By: #### L 500.2500, L100.0100 ####[facility] [address] [place], [address] CL Normal 98-108 [facility] Comment on above: Result Comment: Canc elled via OM: Order cancelled - Patient discharged Performed By: #### L 500.2500, L100.0100 ####[facility] [address] [place], [address] CO2 Normal 21.0-32.0 [facility] Comment on above: Result Comment: Canc elled via OM: Order cancelled - Patient discharged Performed By: #### L 500.2500, L100.0100 ####[facility] [address] [place], [address] CREAT,SERUM Normal 0.70-1.20 [facility] Comment on above: Result Comment: Canc elled via OM: Order cancelled - Patient discharged Performed By: #### L 500.2500, L100.0100 ####[facility] [address] [place], [address] eGFR Normal >60 [facility] Comment on above: Result Comment: Canc elled via OM: Order cancelled - Patient discharged Performed By: #### L 500.2500, L100.0100 ####[facility] [address] [place], [address] GAP Normal 5-15 [facility] Comment on above: Result Comment: Canc elled via OM: Order cancelled - Patient discharged Performed By: #### L 500.2500, L100.0100 ####[facility] [address] [place], [address] GLU Normal 70-99 [facility] Comment on above: Result Comment: Canc elled via OM: Order cancelled - Patient discharged Performed By: #### L 500.2500, L100.0100 ####[facility] [address] [place], [address] Potassium Normal 3.3-5.1 [facility] Comment on above: Result Comment: Canc elled via OM: Order cancelled - Patient discharged Performed By: #### L 500.2500, L100.0100 ####[facility] [address] [place], [address] Basic Metabolic Profile (BMP) Normal 133-145 [facility] Comment on above: Result Comment: Canc elled via OM: Order cancelled - Patient discharged Performed By: #### L 500.2500, L100.0100 ####[facility] [address] [place], [address] CBC W/Diff, Automatedon 08-0 -2024 Absolute Neut Normal 2.0-7.7 [facility] Comment on above: Result Comment: Canc elled via OM: Order cancelled - Patient discharged Performed By: #### L 500.2500, L100.0100 ####[facility] [address] [place], [address] HCT Normal 40-54 [facility] Comment on above: Result Comment: Canc elled via OM: Order cancelled - Patient discharged Performed By: #### L 500.2500, L100.0100 ####[facility] [address] [place], [address] HGB Normal 13.0-16.5 [facility] Comment on above: Result Comment: Canc elled via OM: Order cancelled - Patient discharged Performed By: #### L 500.2500, L100.0100 ####[facility] [address] [place], [address] MCH Normal 27.0-32.0 [facility] Comment on above: Result Comment: Canc elled via OM: Order cancelled - Patient discharged Performed By: #### L 500.2500, L100.0100 ####[facility] [address] [place], [address] MCHC Normal 32-36 [facility] Comment on above: Result Comment: Canc elled via OM: Order cancelled - Patient discharged Performed By: #### L 500.2500, L100.0100 ####[facility] [address] [place], [address] MCV Normal 80-94 [facility] Comment on above: Result Comment: Canc elled via OM: Order cancelled - Patient discharged Performed By: #### L 500.2500, L100.0100 ####[facility] [address] [place], [address] NEUT% Normal 47-70 [facility] Comment on above: Result Comment: Canc elled via OM: Order cancelled - Patient discharged Performed By: #### L 500.2500, L100.0100 ####[facility] [address] [place], [address] PLT Normal 150-450 [facility] Comment on above: Result Comment: Canc elled via OM: Order cancelled - Patient discharged Performed By: #### L 500.2500, L100.0100 ####[facility] [address] [place], [address] RBC Normal 4.6-6.2 [facility] Comment on above: Result Comment: Canc elled via OM: Order cancelled - Patient discharged Performed By: #### L 500.2500, L100.0100 ####[facility] [address] [place], [address] RDW CV Normal 11.6-14.6 [facility] Comment on above: Result Comment: Canc elled via OM: Order cancelled - Patient discharged Performed By: #### L 500.2500, L100.0100 ####[facility] [address] [place], [address] RDW SD Normal 35.1-43.9 [facility] Comment on above: Result Comment: Canc elled via OM: Order cancelled - Patient discharged Performed By: #### L 500.2500, L100.0100 ####[facility] [address] [place], [address] WBC Normal 4.4-11.0 [facility] Comment on above: Result Comment: Canc elled via OM: Order cancelled - Patient discharged Performed By: #### L 500.2500, L100.0100 ####[facility] [address] [place], [address] CBC-Complete Blood Cnt No Di ffon 03-06-2025 Erythrocyte distribution width (RBC) [Ratio] 14.1 % Normal 11.6-14.6 [facility] Comment on above: Performed By: #### L 500.2500, L100.0500 ####[facility] [address] [place], [address] Hematocrit (Bld) [Volume fraction] 36.1 % Low 40-54 [facility] Comment on above: Performed By: #### L 500.2500, L100.0500 ####[facility] [address] [place], [address] Hemoglobin (Bld) [Mass/Vol] 12.2 g/dL Low 13.0-16.5 [facility] Comment on above: Performed By: #### L 500.2500, L100.0500 ####[facility] [address] [place], [address] MCH (RBC) [Entitic mass] 29.0 pg Normal 27.0-32.0 [facility] Comment on above: Performed By: #### L 500.2500, L100.0500 ####[facility] [address] [place], [address] MCHC (RBC) [Mass/Vol] 33.8 g/dL Normal 32-36 [facility] Comment on above: Performed By: #### L 500.2500, L100.0500 ####[facility] [address] [place], [address] MCV (RBC) [Entitic vol] 86.0 fL Normal 80-94 [facility] Comment on above: Performed By: #### L 500.2500, L100.0500 ####[facility] [address] [place], [address] Platelet mean volume (Bld) [Entitic vol] 8.8 fL Normal 6.2-12.0 [facility] Comment on above: Performed By: #### L 500.2500, L100.0500 ####[facility] [address] [place], [address] Platelets (Bld) [#/Vol] 207 10*3/uL Normal 150-450 [facility] Comment on above: Performed By: #### L 500.2500, L100.0500 ####[facility] [address] [place], [address] RBC (Bld) [#/Vol] 4.20 10*6/uL Low 4.6-6.2 [facility] Comment on above: Performed By: #### L 500.2500, L100.0500 ####[facility] [address] [place], [address] RDW SD 44.5 fl High 35.1-43.9 [facility] Comment on above: Performed By: #### L 500.2500, L100.0500 ####[facility] [address] [place], [address] WBC (Bld) [#/Vol] 5.6 10*3/uL Normal 4.4-11.0 [facility] Comment on above: Performed By: #### L 500.2500, L100.0500 ####[facility] [address] [place], [address] MR/CON.PCM.GIon 03-06-2025 MR/CON.PCM.GI Normal [facility] Prothrombin Time w/INRon INR Normal [facility] Comment on above: Result Comment: Canc elled via OM: Order cancelled - Patient discharged Performed By: #### L 300.3900 ####[facility] [address] [place], [place], [id number] PROTIME Normal 11.7-14.9 [facility] Comment on above: Result Comment: Canc elled via OM: Order cancelled - Patient discharged Performed By: #### L 300.3900 ####[facility] [address] [place], [place], [address] Lead EKGon 03-05-2025 12 Lead EKG Normal [facility] Abdomen/Pelvis W IV Cont ONL Yon 03-05-2025 Abdomen/Pelvis W IV Cont ONLY Normal [facility] Absolute lymphocyte countOrd ered By: Rustam Warren on 03-05-2025 Lymphocytes Auto (Unsp spec) [#/Vol] 1.20 10*3/uL 0.83-4.51 [facility] Absolute neutrophil countOrd ered By: Rustam Warren on 03-05-2025 Neutrophils (Bld) [#/Vol] 5.6 10*3/uL 2.0-7.7 [facility] Anion gap in Serum or Plasma Ordered By: Rustam Warren on 03-05-2025 Anion gap [Moles/Vol] 13 mmol/L 5-15 [facility] Automated lymphocyte count a s percentage of total leukocytesOrdered By: Rustam Warren on 03-05-2025 Lymphocytes/100 WBC Auto (Unsp spec) 15.9 % Low 19-41 [facility] BUN/creatinine ratioOrdered By: Rustam Warren on 03-05-2025 Urea nitrogen/Creatinine [Mass ratio] 16.0 mg/mg 10-20 [facility] Basic Metabolic Profile (BMP )on 03-05-2025 BUN Normal 4-19 [facility] Comment on above: Result Comment: Canc elled via OM: Order cancelled - Patient discharged Performed By: #### L 500.2500, L100.0100 ####[facility] [address] [place], [address] BUN/CRE Normal 10-20 [facility] Comment on above: Result Comment: Canc elled via OM: Order cancelled - Patient discharged Performed By: #### L 500.2500, L100.0100 ####[facility] [address] [place], [address] Calcium Normal 7.6-11.0 [facility] Comment on above: Result Comment: Canc elled via OM: Order cancelled - Patient discharged Performed By: #### L 500.2500, L100.0100 ####[facility] [address] [place], [address] CL Normal 98-108 [facility] Comment on above: Result Comment: Canc elled via OM: Order cancelled - Patient discharged Performed By: #### L 500.2500, L100.0100 ####[facility] [address] [place], [address] CO2 Normal 21.0-32.0 [facility] Comment on above: Result Comment: Canc elled via OM: Order cancelled - Patient discharged Performed By: #### L 500.2500, L100.0100 ####[facility] [address] [place], [address] CREAT,SERUM Normal 0.70-1.20 [facility] Comment on above: Result Comment: Canc elled via OM: Order cancelled - Patient discharged Performed By: #### L 500.2500, L100.0100 ####[facility] [address] [place], [address] eGFR Normal >60 [facility] Comment on above: Result Comment: Canc elled via OM: Order cancelled - Patient discharged Performed By: #### L 500.2500, L100.0100 ####[facility] [address] [place], [address] GAP Normal 5-15 [facility] Comment on above: Result Comment: Canc elled via OM: Order cancelled - Patient discharged Performed By: #### L 500.2500, L100.0100 ####[facility] [address] [place], [address] GLU Normal 70-99 [facility] Comment on above: Result Comment: Canc elled via OM: Order cancelled - Patient discharged Performed By: #### L 500.2500, L100.0100 ####[facility] [address] [place], [address] Potassium Normal 3.3-5.1 [facility] Comment on above: Result Comment: Canc elled via OM: Order cancelled - Patient discharged Performed By: #### L 500.2500, L100.0100 ####[facility] [address] [place], [address] Basic Metabolic Profile (BMP) Normal 133-145 [facility] Comment on above: Result Comment: Canc elled via OM: Order cancelled - Patient discharged Performed By: #### L 500.2500, L100.0100 ####[facility] [address] [place], [address] Basophil percentageOrdered B y: Rustam Warren on 03-05-2025 Basophils/100 WBC (Bld) 0.3 % 0-1 [facility] Bilirubin Test strip Ql (U)O rdered By: Rustam Warren on 03-05-2025 Bilirubin Ql (U) Negative Negative [facility] Bilirubin, totalOrdered By: Rustam Warren on 03-05-2025 Bilirubin [Mass/Vol] 0.38 mg/dL 0.00-1.30 [facility] CBC W/Diff, Automatedon 02-05 Absolute Lymph 1.20 X10 3/uL Normal 0.83-4.51 [facility] Comment on above: Performed By: #### L 501.2450, L100.0100, L500.4050 ####[facility] [address] [place], [address] Absolute Neut 5.6 X10 3/uL Normal 2.0-7.7 [facility] Comment on above: Performed By: #### L 501.2450, L100.0100, L500.4050 ####[facility] [address] [place], [address] Basophils/100 WBC (Bld) 0.3 % Normal 0-1 [facility] Comment on above: Performed By: #### L 501.2450, L100.0100, L500.4050 ####[facility] [address] [place], [address] Eosinophils/100 WBC (Bld) 3.2 % Normal 0-5 [facility] Comment on above: Performed By: #### L 501.2450, L100.0100, L500.4050 ####[facility] [address] [place], [address] Erythrocyte distribution width (RBC) [Ratio] 13.7 % Normal 11.6-14.6 [facility] Comment on above: Performed By: #### L 501.2450, L100.0100, L500.4050 ####[facility] [address] [place], [address] Hematocrit (Bld) [Volume fraction] 33.7 % Low 40-54 [facility] Comment on above: Performed By: #### L 501.2450, L100.0100, L500.4050 ####[facility] [address] [place], [address] Hemoglobin (Bld) [Mass/Vol] 11.8 g/dL Low 13.0-16.5 [facility] Comment on above: Performed By: #### L 501.2450, L100.0100, L500.4050 ####[facility] [address] [place], [address] IG% 0.300 Normal 0.0-0.9 [facility] Comment on above: Result Comment: IG% - Immature Granulocytes (promyelocytes, myelocytes andmetamyelocytes) > 1% indicates that a LEFT SHIFT is Present. Performed By: #### L 501.2450, L100.0100, L500.4050 ####[facility] [address] [place], [address] Lymphocytes/100 WBC (Bld) 15.9 % Low 19-41 [facility] Comment on above: Performed By: #### L 501.2450, L100.0100, L500.4050 ####[facility] [address] [place], [address] MCH (RBC) [Entitic mass] 29.7 pg Normal 27.0-32.0 [facility] Comment on above: Performed By: #### L 501.2450, L100.0100, L500.4050 ####[facility] [address] [place], [address] MCHC (RBC) [Mass/Vol] 35.0 g/dL Normal 32-36 [facility] Comment on above: Performed By: #### L 501.2450, L100.0100, L500.4050 ####[facility] [address] [place], [address] MCV (RBC) [Entitic vol] 84.9 fL Normal 80-94 [facility] Comment on above: Performed By: #### L 501.2450, L100.0100, L500.4050 ####[facility] [address] [place], [address] Monocytes/100 WBC (Bld) 7.0 % Normal 0-10 [facility] Comment on above: Performed By: #### L 501.2450, L100.0100, L500.4050 ####[facility] [address] [place], [address] Neutrophils/100 WBC (Bld) 73.3 % High 47-70 [facility] Comment on above: Performed By: #### L 501.2450, L100.0100, L500.4050 ####[facility] [address] [place], [address] Nucleated RBC (Bld) [#/Vol] 0 10*3/uL Normal 0-5 [facility] Comment on above: Performed By: #### L 501.2450, L100.0100, L500.4050 ####[facility] [address] [place], [address] Platelet mean volume (Bld) [Entitic vol] 9.2 fL Normal 6.2-12.0 [facility] Comment on above: Performed By: #### L 501.2450, L100.0100, L500.4050 ####[facility] [address] [place], [address] Platelets (Bld) [#/Vol] 192 10*3/uL Normal 150-450 [facility] Comment on above: Performed By: #### L 501.2450, L100.0100, L500.4050 ####[facility] [address] [place], [address] RBC (Bld) [#/Vol] 3.97 10*6/uL Low 4.6-6.2 [facility] Comment on above: Performed By: #### L 501.2450, L100.0100, L500.4050 ####[facility] [address] [place], [address] RDW SD 42.6 fl Normal 35.1-43.9 [facility] Comment on above: Performed By: #### L 501.2450, L100.0100, L500.4050 ####[facility] [address] [place], [address] WBC (Bld) [#/Vol] 7.6 10*3/uL Normal 4.4-11.0 [facility] Comment on above: Performed By: #### L 501.2450, L100.0100, L500.4050 ####[facility] [address] [place], [address] Absolute Neut Normal 2.0-7.7 [facility] Comment on above: Result Comment: Canc elled via OM: Order cancelled - Patient discharged Performed By: #### L 500.2500, L100.0100 ####[facility] [address] [place], [address] HCT Normal 40-54 [facility] Comment on above: Result Comment: Canc elled via OM: Order cancelled - Patient discharged Performed By: #### L 500.2500, L100.0100 ####[facility] [address] [place], [address] HGB Normal 13.0-16.5 [facility] Comment on above: Result Comment: Canc elled via OM: Order cancelled - Patient discharged Performed By: #### L 500.2500, L100.0100 ####[facility] [address] [place], [address] MCH Normal 27.0-32.0 [facility] Comment on above: Result Comment: Canc elled via OM: Order cancelled - Patient discharged Performed By: #### L 500.2500, L100.0100 ####[facility] [address] [place], [address] MCHC Normal 32-36 [facility] Comment on above: Result Comment: Canc elled via OM: Order cancelled - Patient discharged Performed By: #### L 500.2500, L100.0100 ####[facility] [address] [place], [address] MCV Normal 80-94 [facility] Comment on above: Result Comment: Canc elled via OM: Order cancelled - Patient discharged Performed By: #### L 500.2500, L100.0100 ####[facility] [address] [place], [address] NEUT% Normal 47-70 [facility] Comment on above: Result Comment: Canc elled via OM: Order cancelled - Patient discharged Performed By: #### L 500.2500, L100.0100 ####[facility] [address] [place], [address] PLT Normal 150-450 [facility] Comment on above: Result Comment: Canc elled via OM: Order cancelled - Patient discharged Performed By: #### L 500.2500, L100.0100 ####[facility] [address] [place], [address] RBC Normal 4.6-6.2 [facility] Comment on above: Result Comment: Canc elled via OM: Order cancelled - Patient discharged Performed By: #### L 500.2500, L100.0100 ####[facility] [address] [place], [address] RDW CV Normal 11.6-14.6 [facility] Comment on above: Result Comment: Canc elled via OM: Order cancelled - Patient discharged Performed By: #### L 500.2500, L100.0100 ####[facility] [address] [place], [address] RDW SD Normal 35.1-43.9 [facility] Comment on above: Result Comment: Canc elled via OM: Order cancelled - Patient discharged Performed By: #### L 500.2500, L100.0100 ####[facility] [address] [place], [address] WBC Normal 4.4-11.0 [facility] Comment on above: Result Comment: Canc elled via OM: Order cancelled - Patient discharged Performed By: #### L 500.2500, L100.0100 ####[facility] [address] [place], [address] Carbon dioxide, total [Moles /volume] in Central venous bloodOrdered By: Rustam Warren on 03-05-2025 CO2 [Moles/Vol] 17.6 mmol/L Low 21.0-32.0 [facility] Chloride assayOrdered By: Andrea Warren on 03-05-2025 Chloride [Moles/Vol] 89 mmol/L Low 98-108 [facility] Comprehensive Metabolic Prof ilon 03-05-2025 Albumin [Mass/Vol] 3.8 g/dL Normal 3.4-4.8 [facility] Comment on above: Performed By: #### L 501.2450, L100.0100, L500.4050 ####[facility] [address] [place], [address] Albumin/Globulin [Mass ratio] 1.3 {ratio} Normal 0.9-2.4 [facility] Comment on above: Performed By: #### L 501.2450, L100.0100, L500.4050 ####[facility] [address] [place], [address] ALK PHOS 119 U/L Normal 40-129 [facility] Comment on above: Result Comment: Hemo lysis Present, Results may be affected. Performed By: #### L 501.2450, L100.0100, L500.4050 ####[facility] [address] [place], [address] ALT [Catalytic activity/Vol] 22 U/L Normal <=46 [facility] Comment on above: Result Comment: Hemo lysis present, Results??could be affected.?? Performed By: #### L 501.2450, L100.0100, L500.4050 ####[facility] [address] [place], [address] AST [Catalytic activity/Vol] 46 U/L High <=37 [facility] Comment on above: Result Comment: Hemo lysis present, Results??could be affected.?? Performed By: #### L 501.2450, L100.0100, L500.4050 ####[facility] [address] [place], [address] Bilirubin [Mass/Vol] 0.38 mg/dL Normal 0.00-1.30 [facility] Comment on above: Performed By: #### L 501.2450, L100.0100, L500.4050 ####[facility] [address] [place], [address] BUN/CRE 16.0 RATIO Normal 10-20 [facility] Comment on above: Performed By: #### L 501.2450, L100.0100, L500.4050 ####[facility] [address] [place], [address] Calcium [Mass/Vol] 8.1 mg/dL Normal 7.6-11.0 [facility] Comment on above: Performed By: #### L 501.2450, L100.0100, L500.4050 ####[facility] [address] [place], [address] Chloride [Moles/Vol] 89 mmol/L Low 98-108 [facility] Comment on above: Performed By: #### L 501.2450, L100.0100, L500.4050 ####[facility] [address] [place], [address] CO2 [Moles/Vol] 17.6 mmol/L Low 21.0-32.0 [facility] Comment on above: Performed By: #### L 501.2450, L100.0100, L500.4050 ####[facility] [address] [place], [address] Creatinine [Mass/Vol] 0.77 mg/dL Normal 0.70-1.20 [facility] Comment on above: Performed By: #### L 501.2450, L100.0100, L500.4050 ####[facility] [address] [place], [address] ECRCL 121.52 ml/min Normal 50-250 [facility] Comment on above: Performed By: #### L 501.2450, L100.0100, L500.4050 ####[facility] [address] [place], [address] GAP 13 Normal 5-15 [facility] Comment on above: Performed By: #### L 501.2450, L100.0100, L500.4050 ####[facility] [address] [place], [address] GFR/1.73 sq M.predicted among non-blacks MDRD (S/P/Bld) [Vol rate/Area] 96 mL/min/{1.73_m2} Normal >60 [facility] Comment on above: Result Comment: mL/m in/1.73m2 CKD-EPI Creatinine Equation (2020) Performed By: #### L 501.2450, L100.0100, L500.4050 ####[facility] [address] [place], [address] Globulin (S) [Mass/Vol] 2.9 g/dL Normal 2.2-4.2 [facility] Comment on above: Performed By: #### L 501.2450, L100.0100, L500.4050 ####[facility] [address] [place], [address] Glucose [Mass/Vol] 123 mg/dL High 70-99 [facility] Comment on above: Performed By: #### L 501.2450, L100.0100, L500.4050 ####[facility] [address] [place], [address] Potassium [Moles/Vol] 3.8 mmol/L Normal 3.3-5.1 [facility] Comment on above: Result Comment: Hemo lysis present, Results??could be affected.?? Performed By: #### L 501.2450, L100.0100, L500.4050 ####[facility] [address] [place], [address] Sodium [Moles/Vol] 120 mmol/L Low 133-145 [facility] Comment on above: Performed By: #### L 501.2450, L100.0100, L500.4050 ####[facility] [address] [place], [address] T PROT 6.6 g/dL Normal 5.9-8.4 [facility] Comment on above: Performed By: #### L 501.2450, L100.0100, L500.4050 ####[facility] [address] [place], [address] Urea nitrogen [Mass/Vol] 12 mg/dL Normal 4-19 [facility] Comment on above: Performed By: #### L 501.2450, L100.0100, L500.4050 ####[facility] [address] [place], [address] Emergency Department Summary on 03-05-2025 Emergency Department Summary Normal [facility] Eosinophil percentageOrdered By: Rustam Warren on 03-05-2025 Eosinophils/100 WBC (Bld) 3.2 % 0-5 [facility] Erythrocyte distribution wid th ratioOrdered By: Rustam Warren on 03-05-2025 Erythrocyte distribution width (RBC) [Ratio] 13.7 % 11.6-14.6 [facility] Erythrocyte distribution wid th standard deviationOrdered By: Rustam Warren on 03-05-2025 Erythrocyte distribution width (RBC) [Ratio] 42.6 fl 35.1-43.9 [facility] Gallbladderon 03-05-2025 Gallbladder Normal [facility] Glomerular filtration rate ( GFR) estimation/1.73 sq m using serum, plasma, or whole bOrdered By: Rustam Warren on 03-05-2025 GFR/1.73 sq M.predicted among non-blacks MDRD (S/P/Bld) [Vol rate/Area] 96 mL/min/{1.73_m2} >60 [facility] Comment on above: mL/min/1.73m2 CKD-EP I Creatinine Equation (2020) H AND P Exam - Hospitaliston 03-05-2025 H&P Exam - Hospitalist Normal [facility] Hematocrit Auto (Bld) [Volum e fraction]Ordered By: Rustam Warren on 03-05-2025 Hematocrit (Bld) [Volume fraction] 33.7 % Low 40-54 [facility] Hemoglobin measurementOrdere d By: Rustam Warren on 03-05-2025 Hemoglobin (Bld) [Mass/Vol] 11.8 g/dL Low 13.0-16.5 [facility] Immature granulocytes/100 WB C Auto (Bld)Ordered By: Rustam Warren on 03-05-2025 Immature granulocytes/100 WBC (Bld) 0.300 % 0.0-0.9 [facility] Comment on above: IG% - Immature Granu locytes (promyelocytes, myelocytes and metamyelocytes) > 1% indicates that a LEFT SHIFT is Present. International normalized rat io (INR) calculationOrdered By: Rustam Warren on 03-05-2025 INR Coag (Bld) [Relative time] 2.4 {INR} [facility] Ketones Test strip Ql (U)Ord ered By: Rustam Warren on 03-05-2025 Ketones Ql (U) Negative Negative [facility] Laboratory - Chemistry and C hemistry - challengeOrdered By: Rustam Warren on 03-05-2025 AST [Catalytic activity/Vol] 46 U/L High <38 [facility] Comment on above: Hemolysis present, R esults could be affected. Lipaseon 03-05-2025 Lipase [Catalytic activity/Vol] 40 U/L Normal 13-75 [facility] Comment on above: Result Comment: Taylor santos note:LIPASE revised reference range effective 22.New Lipase methodology. Expected to produce lower valuesthan the previous assay method.NEW Reference Range: 13 - 75 U/L Performed By: #### L 501.2450, L100.0100, L500.4050 ####[facility] [address] [place], [address] Lipase measurementOrdered By : Rustam Warren on 03-05-2025 Lipase [Catalytic activity/Vol] 40 U/L 13-75 [facility] Comment on above: Please note:LIPASE r evised reference range effective 22. New Lipase methodology. Expected to produce lower values than the previous assay method. NEW Reference Range: 13 - 75 U/L MCV (mean corpuscular volume ) determinationOrdered By: Rustam Warren on 03-05-2025 MCV (RBC) [Entitic vol] 84.9 fL 80-94 [facility] Mean corpuscular hemoglobin (MCH) determinationOrdered By: Rustam Warren on 03-05-2025 MCH (RBC) [Entitic mass] 29.7 pg 27.0-32.0 [facility] Mean corpuscular hemoglobin concentration (MCHC) determinationOrdered By: Rustam Warren on 03-05-2025 MCHC (RBC) [Mass/Vol] 35.0 g/dL 32-36 [facility] Mean platelet volume determi nationOrdered By: Rustam Warren on 03-05-2025 Platelet mean volume (Bld) [Entitic vol] 9.2 fL 6.2-12.0 [facility] Microscopic analysis of urin e for red blood cells (RBC)Ordered By: Rustam Warren on 03-05-2025 Microscopic analysis of urine for red blood cells (RBC) 0 SEEN /hpf 0-5 [facility] Monocyte percentageOrdered B y: Rustam Warren on 03-05-2025 Monocytes/100 WBC (Bld) 7.0 % 0-10 [facility] Mucus LM Ql (Urine sed)Order ed By: Rustam Warren on 03-05-2025 Mucus Ql (Urine sed) 0 SEEN /hpf [facility] Neutrophil percentageOrdered By: Rustam Warren on 03-05-2025 Neutrophils/100 WBC (Bld) 73.3 % High 47-70 [facility] Nitrite Test strip Ql (U)Ord ered By: Rustam Warren on 03-05-2025 Nitrite Ql (U) Negative Negative [facility] Nucleated red blood cell per centageOrdered By: Rustam Warren on 03-05-2025 Nucleated RBC/100 WBC (Bld) [Ratio] 0 % 0-5 [facility] Osmolality urOrdered By: Monica Rashid on 03-05-2025 Osmolality (U) [Osmolality] 67 mOsm/KG >50 [facility] Comment on above: Normal Urine Referen ce Ranges Random: 50 - 1200 mOsm/kg H20 depending on fluid intake Random: >850 mOsm/kg after 12 hour fluid restriction 24 hour: ~300 - 900 mOsm/kg H2O Osmolality, Urineon 03-05-20 25 OSMOLALITY,UR 67 mOsm/KG Normal [facility] Comment on above: Result Comment: Norm al Urine Reference Ranges Random: 50 - 1200 mOsm/kg H20 depending on fluid intake Random: >850 mOsm/kg after 12 hour fluid restriction 24 hour: 300 - 900 mOsm/kg H2O Performed By: #### L 501.7400, L501.5500 ####[facility] [address] [place], [address] Platelet countOrdered By: Andrea Warren on 03-05-2025 Platelets (Bld) [#/Vol] 192 10*3/uL 150-450 [facility] Potassium measurement (mass/ volume)Ordered By: Rustam Warren on 03-05-2025 Potassium (Unsp spec) [Mass/Vol] 3.8 mmol/L 3.3-5.1 [facility] Comment on above: Hemolysis present, R esults could be affected. Protein Test strip Ql (U)Ord ered By: Rustam Warren on 03-05-2025 Protein Ql (U) Negative Negative [facility] Prothrombin Time w/INRon INR Coag (PPP) [Relative time] 2.4 {INR} Normal [facility] Comment on above: Performed By: #### L 300.3900 ####[facility] [address] [place], [address] PT Coag (PPP) [Time] 26.4 s High 11.7-14.9 [facility] Comment on above: Performed By: #### L 300.3900 ####[facility] [address] [place], [address] INR Normal [facility] Comment on above: Result Comment: Canc elled via OM: Order cancelled - Patient discharged Performed By: #### L 300.3900 ####[facility] [address] [place], [address] PROTIME Normal 11.7-14.9 [facility] Comment on above: Result Comment: Canc elled via OM: Order cancelled - Patient discharged Performed By: #### L 300.3900 ####[facility] [address] [place], [address] Prothrombin timeOrdered By: Rustam Warren on 03-05-2025 PT Coag (PPP) [Time] 26.4 s High 11.7-14.9 [facility] RBC Auto (Bld) [#/Vol]Ordere d By: Rustam Warren on 03-05-2025 RBC (Bld) [#/Vol] 3.97 10*6/uL Low 4.6-6.2 [facility] Serum creatinine measurement (mass/volume)Ordered By: Rustam Warren on 03-05-2025 Creatinine [Mass/Vol] 0.77 mg/dL 0.70-1.20 [facility] Serum globulin measurementOr dered By: Rustam Warren on 03-05-2025 Globulin (S) [Mass/Vol] 2.9 g/dL 2.2-4.2 [facility] Serum glucose measurement (m ass/volume)Ordered By: Rustam Warren on 03-05-2025 Glucose [Mass/Vol] 123 mg/dL High 70-99 [facility] Serum or plasma alanine hernandez otransferase (ALT) measurementOrdered By: Rustam Warren on 03-05-2025 ALT [Catalytic activity/Vol] 22 U/L <47 [facility] Comment on above: Hemolysis present, R esults could be affected. Serum or plasma albumin mickie urement (mass/volume)Ordered By: Rustam Warren on 03-05-2025 Albumin [Mass/Vol] 3.8 g/dL 3.4-4.8 [facility] Serum or plasma albumin/glob ulin mass ratioOrdered By: Rustam Warren on 03-05-2025 Albumin/Globulin [Mass ratio] 1.3 {ratio} 0.9-2.4 [facility] Serum or plasma alkaline anna sphatase measurementOrdered By: Rustam Warren on 03-05-2025 ALP [Catalytic activity/Vol] 119 U/L 40-129 [facility] Comment on above: Hemolysis Present, R esults may be affected. Serum or plasma calcium mickie urement (mass/volume)Ordered By: Rustam Warren on 03-05-2025 Calcium [Mass/Vol] 8.1 mg/dL 7.6-11.0 [facility] Serum or plasma urea nitroge n measurement (mass/volume)Ordered By: Rustam Warren on 03-05-2025 Urea nitrogen [Mass/Vol] 12 mg/dL 4-19 [facility] Sodium levelOrdered By: Rustam Warren on 03-05-2025 Sodium [Moles/Vol] 120 mmol/L Low 133-145 [facility] Squamous epithelial cells de tection in urine sediment by light microscopyOrdered By: Rustam Warren on 03-05-2025 Epithelial cells.squamous LM Ql (Urine sed) 0 SEEN /hpf 0-5 [facility] Total proteinOrdered By: Monica Warren on 03-05-2025 Protein [Mass/Vol] 6.6 g/dL 5.9-8.4 [facility] Urinalysis, Completeon 03-05 BACTERIA 0 SEEN Normal None Seen [facility] Comment on above: Order Comment: CLEAN CATCH Performed By: #### L 400.0001 ####[facility] [address] [place], [address] EPI,SQUAMOUS 0 SEEN Normal 0-5 [facility] Comment on above: Order Comment: CLEAN CATCH Performed By: #### L 400.0001 ####[facility] [address] [place], [address] Mucus Ql (Urine sed) 0 SEEN Normal [facility] Comment on above: Order Comment: CLEAN CATCH Performed By: #### L 400.0001 ####[facility] [address] [place], [address] RBC 0 SEEN Normal 0-5 [facility] Comment on above: Order Comment: CLEAN CATCH Performed By: #### L 400.0001 ####[facility] [address] [place], [address] WBC 0 SEEN Normal 0-5 [facility] Comment on above: Order Comment: CLEAN CATCH Performed By: #### L 400.0001 ####[facility] [address] [place], [address] Urine Sodiumon 03-05-2025 UR NA < 20 Normal Not Establ. [facility] Comment on above: Performed By: #### L 501.7400, L501.5500 ####[facility] [address] [place], [address] Urine clarityOrdered By: Monica Warren on 03-05-2025 Clarity (U) Clear Clear [facility] Urine color determinationOrd ered By: Rustam Warren on 03-05-2025 Color (U) Straw Yellow [facility] Urine glucose detectionOrder ed By: Rustam Warren on 03-05-2025 Glucose Ql (U) Normal mg/dl Normal [facility] Urine leukocyte esterase det ection by dipstickOrdered By: Rustam Warren on 03-05-2025 Leukocyte esterase Test strip Ql (U) Negative Negative [facility] Urine pHOrdered By: Rustam valdes on 03-05-2025 pH (U) 7.0 [pH] 5.0 - 8.0 [facility] Urine sediment bacteria coun t by microscopy (number/high power field)Ordered By: Rustam Warren on 03-05-2025 Bacteria LM.HPF (Urine sed) [#/Area] 0 /[HPF] None Seen [facility] Urine sodium measurement (mo les/volume)Ordered By: Duncan Rashid on 03-05-2025 Sodium (U) [Moles/Vol] mmol/L Not Establ. [facility] Urine specific gravity measu rementOrdered By: Rustam Warren on 03-05-2025 Specific gravity (U) [Rel density] 1.005 1.002-1.030 [facility] Urine urobilinogen measureme ntOrdered By: Rustam Warren on 03-05-2025 Urobilinogen Ql (U) Normal mg/dl Normal [facility] White blood cell (WBC) count Ordered By: Rustam Warren on 03-05-2025 WBC (Bld) [#/Vol] 7.6 10*3/uL 4.4-11.0 [facility] White blood cell countOrdere d By: Rustam Warren on 03-05-2025 White blood cell count 0 SEEN /hpf 0-5 [facility] Basic Metabolic Profile (BMP )on 03-04-2025 BUN Normal 4-19 [facility] Comment on above: Result Comment: Canc elled via OM: Order cancelled - Patient discharged Performed By: #### L 500.2500, L100.0100 ####[facility] [address] [place], [address] BUN/CRE Normal 10-20 [facility] Comment on above: Result Comment: Canc elled via OM: Order cancelled - Patient discharged Performed By: #### L 500.2500, L100.0100 ####[facility] [address] [place], [address] Calcium Normal 7.6-11.0 [facility] Comment on above: Result Comment: Canc elled via OM: Order cancelled - Patient discharged Performed By: #### L 500.2500, L100.0100 ####[facility] [address] [place], [address] CL Normal 98-108 [facility] Comment on above: Result Comment: Canc elled via OM: Order cancelled - Patient discharged Performed By: #### L 500.2500, L100.0100 ####[facility] [address] [place], [address] CO2 Normal 21.0-32.0 [facility] Comment on above: Result Comment: Canc elled via OM: Order cancelled - Patient discharged Performed By: #### L 500.2500, L100.0100 ####[facility] [address] [place], [address] CREAT,SERUM Normal 0.70-1.20 [facility] Comment on above: Result Comment: Canc elled via OM: Order cancelled - Patient discharged Performed By: #### L 500.2500, L100.0100 ####[facility] [address] [place], [address] eGFR Normal >60 [facility] Comment on above: Result Comment: Canc elled via OM: Order cancelled - Patient discharged Performed By: #### L 500.2500, L100.0100 ####[facility] [address] [place], [address] GAP Normal 5-15 [facility] Comment on above: Result Comment: Canc elled via OM: Order cancelled - Patient discharged Performed By: #### L 500.2500, L100.0100 ####[facility] [address] [place], [address] GLU Normal 70-99 [facility] Comment on above: Result Comment: Canc elled via OM: Order cancelled - Patient discharged Performed By: #### L 500.2500, L100.0100 ####[facility] [address] [place], [address] Potassium Normal 3.3-5.1 [facility] Comment on above: Result Comment: Canc elled via OM: Order cancelled - Patient discharged Performed By: #### L 500.2500, L100.0100 ####[facility] [address] [place], [address] Basic Metabolic Profile (BMP) Normal 133-145 [facility] Comment on above: Result Comment: Canc elled via OM: Order cancelled - Patient discharged Performed By: #### L 500.2500, L100.0100 ####[facility] [address] [place], [address] CBC W/Diff, Automatedon 07-3 0-2024 Absolute Neut Normal 2.0-7.7 [facility] Comment on above: Result Comment: Canc elled via OM: Order cancelled - Patient discharged Performed By: #### L 500.2500, L100.0100 ####[facility] [address] [place], [address] HCT Normal 40-54 [facility] Comment on above: Result Comment: Canc elled via OM: Order cancelled - Patient discharged Performed By: #### L 500.2500, L100.0100 ####[facility] [address] [place], [address] HGB Normal 13.0-16.5 [facility] Comment on above: Result Comment: Canc elled via OM: Order cancelled - Patient discharged Performed By: #### L 500.2500, L100.0100 ####[facility] [address] [place], [address] MCH Normal 27.0-32.0 [facility] Comment on above: Result Comment: Canc elled via OM: Order cancelled - Patient discharged Performed By: #### L 500.2500, L100.0100 ####[facility] [address] [place], [address] MCHC Normal 32-36 [facility] Comment on above: Result Comment: Canc elled via OM: Order cancelled - Patient discharged Performed By: #### L 500.2500, L100.0100 ####[facility] [address] [place], [address] MCV Normal 80-94 [facility] Comment on above: Result Comment: Canc elled via OM: Order cancelled - Patient discharged Performed By: #### L 500.2500, L100.0100 ####[facility] [address] [place], [address] NEUT% Normal 47-70 [facility] Comment on above: Result Comment: Canc elled via OM: Order cancelled - Patient discharged Performed By: #### L 500.2500, L100.0100 ####[facility] [address] [place], [address] PLT Normal 150-450 [facility] Comment on above: Result Comment: Canc elled via OM: Order cancelled - Patient discharged Performed By: #### L 500.2500, L100.0100 ####[facility] [address] [place], [address] RBC Normal 4.6-6.2 [facility] Comment on above: Result Comment: Canc elled via OM: Order cancelled - Patient discharged Performed By: #### L 500.2500, L100.0100 ####[facility] [address] [place], [address] RDW CV Normal 11.6-14.6 [facility] Comment on above: Result Comment: Canc elled via OM: Order cancelled - Patient discharged Performed By: #### L 500.2500, L100.0100 ####[facility] [address] [place], [address] RDW SD Normal 35.1-43.9 [facility] Comment on above: Result Comment: Canc elled via OM: Order cancelled - Patient discharged Performed By: #### L 500.2500, L100.0100 ####[facility] [address] [place], [address] WBC Normal 4.4-11.0 [facility] Comment on above: Result Comment: Canc elled via OM: Order cancelled - Patient discharged Performed By: #### L 500.2500, L100.0100 ####[facility] [address] [place], [address] Prothrombin Time w/INRon INR Normal [facility] Comment on above: Result Comment: Canc elled via OM: Order cancelled - Patient discharged Performed By: #### L 300.3900 ####[facility] [address] [place], [address] PROTIME Normal 11.7-14.9 [facility] Comment on above: Result Comment: Canc elled via OM: Order cancelled - Patient discharged Performed By: #### L 300.3900 ####[facility] [address] [place], [address] Basic Metabolic Profile (BMP )on 03-03-2025 BUN Normal 4-19 [facility] Comment on above: Result Comment: Canc elled via OM: Order cancelled - Patient discharged Performed By: #### L 500.2500, L100.0100 ####[facility] [address] [place], [address] BUN/CRE Normal 10-20 [facility] Comment on above: Result Comment: Canc elled via OM: Order cancelled - Patient discharged Performed By: #### L 500.2500, L100.0100 ####[facility] [address] [place], [address] Calcium Normal 7.6-11.0 [facility] Comment on above: Result Comment: Canc elled via OM: Order cancelled - Patient discharged Performed By: #### L 500.2500, L100.0100 ####[facility] [address] [place], [address] CL Normal 98-108 [facility] Comment on above: Result Comment: Canc elled via OM: Order cancelled - Patient discharged Performed By: #### L 500.2500, L100.0100 ####[facility] [address] [place], [address] CO2 Normal 21.0-32.0 [facility] Comment on above: Result Comment: Canc elled via OM: Order cancelled - Patient discharged Performed By: #### L 500.2500, L100.0100 ####[facility] [address] [place], [address] CREAT,SERUM Normal 0.70-1.20 [facility] Comment on above: Result Comment: Canc elled via OM: Order cancelled - Patient discharged Performed By: #### L 500.2500, L100.0100 ####[facility] [address] [place], [address] eGFR Normal >60 [facility] Comment on above: Result Comment: Canc elled via OM: Order cancelled - Patient discharged Performed By: #### L 500.2500, L100.0100 ####[facility] [address] [place], [address] GAP Normal 5-15 [facility] Comment on above: Result Comment: Canc elled via OM: Order cancelled - Patient discharged Performed By: #### L 500.2500, L100.0100 ####[facility] [address] [place], [address] GLU Normal 70-99 [facility] Comment on above: Result Comment: Canc elled via OM: Order cancelled - Patient discharged Performed By: #### L 500.2500, L100.0100 ####[facility] [address] [place], [address] Potassium Normal 3.3-5.1 [facility] Comment on above: Result Comment: Canc elled via OM: Order cancelled - Patient discharged Performed By: #### L 500.2500, L100.0100 ####[facility] [address] [place], [address] Basic Metabolic Profile (BMP) Normal 133-145 [facility] Comment on above: Result Comment: Canc elled via OM: Order cancelled - Patient discharged Performed By: #### L 500.2500, L100.0100 ####[facility] [address] [place], [address] CBC W/Diff, Automatedon 07- Absolute Neut Normal 2.0-7.7 [facility] Comment on above: Result Comment: Canc elled via OM: Order cancelled - Patient discharged Performed By: #### L 500.2500, L100.0100 ####[facility] [address] [place], [address] HCT Normal 40-54 [facility] Comment on above: Result Comment: Canc elled via OM: Order cancelled - Patient discharged Performed By: #### L 500.2500, L100.0100 ####[facility] [address] [place], [address] HGB Normal 13.0-16.5 [facility] Comment on above: Result Comment: Canc elled via OM: Order cancelled - Patient discharged Performed By: #### L 500.2500, L100.0100 ####[facility] [address] [place], [address] MCH Normal 27.0-32.0 [facility] Comment on above: Result Comment: Canc elled via OM: Order cancelled - Patient discharged Performed By: #### L 500.2500, L100.0100 ####[facility] [address] [place], [address] MCHC Normal 32-36 [facility] Comment on above: Result Comment: Canc elled via OM: Order cancelled - Patient discharged Performed By: #### L 500.2500, L100.0100 ####[facility] [address] [place], [address] MCV Normal 80-94 [facility] Comment on above: Result Comment: Canc elled via OM: Order cancelled - Patient discharged Performed By: #### L 500.2500, L100.0100 ####[facility] [address] [place], [address] NEUT% Normal 47-70 [facility] Comment on above: Result Comment: Canc elled via OM: Order cancelled - Patient discharged Performed By: #### L 500.2500, L100.0100 ####[facility] [address] [place], [address] PLT Normal 150-450 [facility] Comment on above: Result Comment: Canc elled via OM: Order cancelled - Patient discharged Performed By: #### L 500.2500, L100.0100 ####[facility] [address] [place], [address] RBC Normal 4.6-6.2 [facility] Comment on above: Result Comment: Canc elled via OM: Order cancelled - Patient discharged Performed By: #### L 500.2500, L100.0100 ####[facility] [address] [place], [address] RDW CV Normal 11.6-14.6 [facility] Comment on above: Result Comment: Canc elled via OM: Order cancelled - Patient discharged Performed By: #### L 500.2500, L100.0100 ####[facility] [address] [place], [address] RDW SD Normal 35.1-43.9 [facility] Comment on above: Result Comment: Canc elled via OM: Order cancelled - Patient discharged Performed By: #### L 500.2500, L100.0100 ####[facility] [address] [place], [address] WBC Normal 4.4-11.0 [facility] Comment on above: Result Comment: Canc elled via OM: Order cancelled - Patient discharged Performed By: #### L 500.2500, L100.0100 ####[facility] [address] [place], [address] Prothrombin Time w/INRon INR Normal [facility] Comment on above: Result Comment: Canc elled via OM: Order cancelled - Patient discharged Performed By: #### L 300.3900 ####[facility] [address] [place], [address] PROTIME Normal 11.7-14.9 [facility] Comment on above: Result Comment: Canc elled via OM: Order cancelled - Patient discharged Performed By: #### L 300.3900 ####[facility] [address] [place], [address] Absolute lymphocyte countOrd ered By: Danae Stanton on 03-02-2025 Lymphocytes Auto (Unsp spec) [#/Vol] 1.43 10*3/uL 0.83-4.51 [facility] Absolute neutrophil countOrd ered By: Danae Stanton on 03-02-2025 Neutrophils (Bld) [#/Vol] 4.2 10*3/uL 2.0-7.7 [facility] Anion gap in Serum or Plasma Ordered By: Danae Stanton on 03-02-2025 Anion gap [Moles/Vol] 11 mmol/L 5-15 [facility] Automated lymphocyte count a s percentage of total leukocytesOrdered By: Danae Stanton on 03-02-2025 Lymphocytes/100 WBC Auto (Unsp spec) 22.2 % 19-41 [facility] BUN/creatinine ratioOrdered By: Danae Stanton on 03-02-2025 Urea nitrogen/Creatinine [Mass ratio] 7.0 mg/mg Low 10-20 [facility] Basic Metabolic Profile (BMP )on 03-02-2025 BUN/CRE 7.0 RATIO Low 10-20 [facility] Comment on above: Performed By: #### L 100.0100, L500.2500 ####[facility] [address] [place], [address] Calcium [Mass/Vol] 8.8 mg/dL Normal 7.6-11.0 [facility] Comment on above: Performed By: #### L 100.0100, L500.2500 ####[facility] [address] [place], [address] Chloride [Moles/Vol] 107 mmol/L Normal 98-108 [facility] Comment on above: Performed By: #### L 100.0100, L500.2500 ####[facility] [address] [place], [address] CO2 [Moles/Vol] 20.9 mmol/L Low 21.0-32.0 [facility] Comment on above: Performed By: #### L 100.0100, L500.2500 ####[facility] [address] [place], [address] Creatinine [Mass/Vol] 0.81 mg/dL Normal 0.70-1.20 [facility] Comment on above: Performed By: #### L 100.0100, L500.2500 ####[facility] [address] [place], [address] ECRCL 116.75 ml/min Normal 50-250 [facility] Comment on above: Performed By: #### L 100.0100, L500.2500 ####[facility] [address] [place], [address] GAP 11 Normal 5-15 [facility] Comment on above: Performed By: #### L 100.0100, L500.2500 ####[facility] [address] [place], [address] GFR/1.73 sq M.predicted among non-blacks MDRD (S/P/Bld) [Vol rate/Area] 94 mL/min/{1.73_m2} Normal >60 [facility] Comment on above: Result Comment: mL/m in/1.73m2 CKD-EPI Creatinine Equation (2020) Performed By: #### L 100.0100, L500.2500 ####[facility] [address] [place], [address] Glucose [Mass/Vol] 104 mg/dL High 70-99 [facility] Comment on above: Performed By: #### L 100.0100, L500.2500 ####[facility] [address] [place], [address] Potassium [Moles/Vol] 3.4 mmol/L Normal 3.3-5.1 [facility] Comment on above: Performed By: #### L 100.0100, L500.2500 ####[facility] [address] [place], [address] Sodium [Moles/Vol] 138 mmol/L Normal 133-145 [facility] Comment on above: Performed By: #### L 100.0100, L500.2500 ####[facility] [address] [place], [address] Urea nitrogen [Mass/Vol] 6 mg/dL Normal 4-19 [facility] Comment on above: Performed By: #### L 100.0100, L500.2500 ####[facility] [address] [place], [address] Basophil percentageOrdered B y: Danae Stanton on 03-02-2025 Basophils/100 WBC (Bld) 0.5 % 0-1 [facility] CBC W/Diff, Automatedon 07-2 Absolute Lymph 1.43 X10 3/uL Normal 0.83-4.51 [facility] Comment on above: Performed By: #### L 100.0100, L500.2500 ####[facility] [address] [place], [address] Absolute Neut 4.2 X10 3/uL Normal 2.0-7.7 [facility] Comment on above: Performed By: #### L 100.0100, L500.2500 ####[facility] [address] [place], [address] Basophils/100 WBC (Bld) 0.5 % Normal 0-1 [facility] Comment on above: Performed By: #### L 100.0100, L500.2500 ####[facility] [address] [place], [address] Eosinophils/100 WBC (Bld) 3.9 % Normal 0-5 [facility] Comment on above: Performed By: #### L 100.0100, L500.2500 ####[facility] [address] [place], [address] Erythrocyte distribution width (RBC) [Ratio] 14.7 % High 11.6-14.6 [facility] Comment on above: Performed By: #### L 100.0100, L500.2500 ####[facility] [address] [place], [address] Hematocrit (Bld) [Volume fraction] 34.7 % Low 40-54 [facility] Comment on above: Performed By: #### L 100.0100, L500.2500 ####[facility] [address] [place], [address] Hemoglobin (Bld) [Mass/Vol] 11.6 g/dL Low 13.0-16.5 [facility] Comment on above: Performed By: #### L 100.0100, L500.2500 ####[facility] [address] [place], [address] IG% 0.300 Normal 0.0-0.9 [facility] Comment on above: Result Comment: IG% - Immature Granulocytes (promyelocytes, myelocytes andmetamyelocytes) > 1% indicates that a LEFT SHIFT is Present. Performed By: #### L 100.0100, L500.2500 ####[facility] [address] [place], [address] Lymphocytes/100 WBC (Bld) 22.2 % Normal 19-41 [facility] Comment on above: Performed By: #### L 100.0100, L500.2500 ####[facility] [address] [place], [address] MCH (RBC) [Entitic mass] 29.8 pg Normal 27.0-32.0 [facility] Comment on above: Performed By: #### L 100.0100, L500.2500 ####[facility] [address] [place], [address] MCHC (RBC) [Mass/Vol] 33.4 g/dL Normal 32-36 [facility] Comment on above: Performed By: #### L 100.0100, L500.2500 ####[facility] [address] [place], [address] MCV (RBC) [Entitic vol] 89.2 fL Normal 80-94 [facility] Comment on above: Performed By: #### L 100.0100, L500.2500 ####[facility] [address] [place], [address] Monocytes/100 WBC (Bld) 8.5 % Normal 0-10 [facility] Comment on above: Performed By: #### L 100.0100, L500.2500 ####[facility] [address] [place], [address] Neutrophils/100 WBC (Bld) 64.6 % Normal 47-70 [facility] Comment on above: Performed By: #### L 100.0100, L500.2500 ####[facility] [address] [place], [address] Nucleated RBC (Bld) [#/Vol] 0 10*3/uL Normal 0-5 [facility] Comment on above: Performed By: #### L 100.0100, L500.2500 ####[facility] [address] [place], [address] Platelet mean volume (Bld) [Entitic vol] 8.7 fL Normal 6.2-12.0 [facility] Comment on above: Performed By: #### L 100.0100, L500.2500 ####[facility] [address] [place], [address] Platelets (Bld) [#/Vol] 192 10*3/uL Normal 150-450 [facility] Comment on above: Performed By: #### L 100.0100, L500.2500 ####[facility] [address] [place], [address] RBC (Bld) [#/Vol] 3.89 10*6/uL Low 4.6-6.2 [facility] Comment on above: Performed By: #### L 100.0100, L500.2500 ####[facility] [address] [place], [address] RDW SD 47.9 fl High 35.1-43.9 [facility] Comment on above: Performed By: #### L 100.0100, L500.2500 ####[facility] [address] [place], [address] WBC (Bld) [#/Vol] 6.4 10*3/uL Normal 4.4-11.0 [facility] Comment on above: Performed By: #### L 100.0100, L500.2500 ####[facility] [address] [place], [address] Carbon dioxide, total [Moles /volume] in Central venous bloodOrdered By: Danae Stanton on 03-02-2025 CO2 [Moles/Vol] 20.9 mmol/L Low 21.0-32.0 [facility] Chloride assayOrdered By: Na na Romy on 03-02-2025 Chloride [Moles/Vol] 107 mmol/L 98-108 [facility] Discharge Instructionon - Discharge Instruction Normal [facility] Eosinophil percentageOrdered By: Danae Stanton on 03-02-2025 Eosinophils/100 WBC (Bld) 3.9 % 0-5 [facility] Erythrocyte distribution wid th ratioOrdered By: Danae Stanton on 03-02-2025 Erythrocyte distribution width (RBC) [Ratio] 14.7 % High 11.6-14.6 [facility] Erythrocyte distribution wid th standard deviationOrdered By: Danae Stanton on 03-02-2025 Erythrocyte distribution width (RBC) [Ratio] 47.9 fl High 35.1-43.9 [facility] Glomerular filtration rate ( GFR) estimation/1.73 sq m using serum, plasma, or whole bOrdered By: Danae Stanton on 03-02-2025 GFR/1.73 sq M.predicted among non-blacks MDRD (S/P/Bld) [Vol rate/Area] 94 mL/min/{1.73_m2} >60 [facility] Comment on above: mL/min/1.73m2 CKD-EP I Creatinine Equation (2020) Hematocrit Auto (Bld) [Volum e fraction]Ordered By: Danae Stanton on 03-02-2025 Hematocrit (Bld) [Volume fraction] 34.7 % Low 40-54 [facility] Hemoglobin measurementOrdere d By: Danae Stanton on 03-02-2025 Hemoglobin (Bld) [Mass/Vol] 11.6 g/dL Low 13.0-16.5 [facility] Immature granulocytes/100 WB C Auto (Bld)Ordered By: Danae Stanton on 03-02-2025 Immature granulocytes/100 WBC (Bld) 0.300 % 0.0-0.9 [facility] Comment on above: IG% - Immature Granu locytes (promyelocytes, myelocytes and metamyelocytes) > 1% indicates that a LEFT SHIFT is Present. International normalized rat io (INR) calculationOrdered By: Lisa Mike on 03-02-2025 INR Coag (Bld) [Relative time] 3.3 {INR} [facility] MCV (mean corpuscular volume ) determinationOrdered By: Danae Stanton on 03-02-2025 MCV (RBC) [Entitic vol] 89.2 fL 80-94 [facility] Mean corpuscular hemoglobin (MCH) determinationOrdered By: Danae Stanton on 03-02-2025 MCH (RBC) [Entitic mass] 29.8 pg 27.0-32.0 [facility] Mean corpuscular hemoglobin concentration (MCHC) determinationOrdered By: Danae Stanton on 03-02-2025 MCHC (RBC) [Mass/Vol] 33.4 g/dL 32-36 [facility] Mean platelet volume determi nationOrdered By: Danae Stanton on 03-02-2025 Platelet mean volume (Bld) [Entitic vol] 8.7 fL 6.2-12.0 [facility] Monocyte percentageOrdered B y: Danae Stanton on 03-02-2025 Monocytes/100 WBC (Bld) 8.5 % 0-10 [facility] Neutrophil percentageOrdered By: Danae Stanton on 03-02-2025 Neutrophils/100 WBC (Bld) 64.6 % 47-70 [facility] Nucleated red blood cell per centageOrdered By: Danae Stanton on 03-02-2025 Nucleated RBC/100 WBC (Bld) [Ratio] 0 % 0-5 [facility] Platelet countOrdered By: Ria Stanton on 03-02-2025 Platelets (Bld) [#/Vol] 192 10*3/uL 150-450 [facility] Potassium measurement (mass/ volume)Ordered By: Danae Stanton on 03-02-2025 Potassium (Unsp spec) [Mass/Vol] 3.4 mmol/L 3.3-5.1 [facility] Prothrombin Time w/INRon INR Coag (PPP) [Relative time] 3.3 {INR} Normal [facility] Comment on above: Performed By: #### L 300.3900 ####[facility] [address] [place], [address] PT Coag (PPP) [Time] 34.4 s High 11.7-14.9 [facility] Comment on above: Performed By: #### L 300.3900 ####[facility] [address] [place], [address] Prothrombin timeOrdered By: Lisa Mike on 03-02-2025 PT Coag (PPP) [Time] 34.4 s High 11.7-14.9 [facility] RBC Auto (Bld) [#/Vol]Ordere d By: Danae Stanton on 03-02-2025 RBC (Bld) [#/Vol] 3.89 10*6/uL Low 4.6-6.2 [facility] Serum creatinine measurement (mass/volume)Ordered By: Danae Stanton on 03-02-2025 Creatinine [Mass/Vol] 0.81 mg/dL 0.70-1.20 [facility] Serum glucose measurement (m ass/volume)Ordered By: Danae Stanton on 03-02-2025 Glucose [Mass/Vol] 104 mg/dL High 70-99 [facility] Serum or plasma calcium mickie urement (mass/volume)Ordered By: Danae Stanton on 03-02-2025 Calcium [Mass/Vol] 8.8 mg/dL 7.6-11.0 [facility] Serum or plasma urea nitroge n measurement (mass/volume)Ordered By: Danae Stanton on 03-02-2025 Urea nitrogen [Mass/Vol] 6 mg/dL 4-19 [facility] Sodium levelOrdered By: Danae Stanton on 03-02-2025 Sodium [Moles/Vol] 138 mmol/L 133-145 [facility] White blood cell (WBC) count Ordered By: Danae Stanton on 03-02-2025 WBC (Bld) [#/Vol] 6.4 10*3/uL 4.4-11.0 [facility] Basic Metabolic Profile (BMP )on 03-01-2025 BUN/CRE 9.4 RATIO Low 10-20 [facility] Comment on above: Performed By: #### L 100.0100, L500.2500 ####[facility] [address] [place], [address] Calcium [Mass/Vol] 8.6 mg/dL Normal 7.6-11.0 [facility] Comment on above: Performed By: #### L 100.0100, L500.2500 ####[facility] [address] [place], [address] Chloride [Moles/Vol] 107 mmol/L Normal 98-108 [facility] Comment on above: Performed By: #### L 100.0100, L500.2500 ####[facility] [address] [place], [address] CO2 [Moles/Vol] 19.8 mmol/L Low 21.0-32.0 [facility] Comment on above: Performed By: #### L 100.0100, L500.2500 ####[facility] [address] [place], [address] Creatinine [Mass/Vol] 0.85 mg/dL Normal 0.70-1.20 [facility] Comment on above: Performed By: #### L 100.0100, L500.2500 ####[facility] [address] [place], [address] ECRCL 111.80 ml/min Normal 50-250 [facility] Comment on above: Performed By: #### L 100.0100, L500.2500 ####[facility] [address] [place], [address] GAP 12 Normal 5-15 [facility] Comment on above: Performed By: #### L 100.0100, L500.2500 ####[facility] [address] [place], [address] GFR/1.73 sq M.predicted among non-blacks MDRD (S/P/Bld) [Vol rate/Area] 93 mL/min/{1.73_m2} Normal >60 [facility] Comment on above: Result Comment: mL/m in/1.73m2 CKD-EPI Creatinine Equation (2020) Performed By: #### L 100.0100, L500.2500 ####[facility] [address] [place], [address] Glucose [Mass/Vol] 94 mg/dL Normal 70-99 [facility] Comment on above: Performed By: #### L 100.0100, L500.2500 ####[facility] [address] [place], [address] Potassium [Moles/Vol] 3.1 mmol/L Low 3.3-5.1 [facility] Comment on above: Performed By: #### L 100.0100, L500.2500 ####[facility] [address] [place], [address] Sodium [Moles/Vol] 139 mmol/L Normal 133-145 [facility] Comment on above: Performed By: #### L 100.0100, L500.2500 ####[facility] [address] [place], [address] Urea nitrogen [Mass/Vol] 8 mg/dL Normal 4-19 [facility] Comment on above: Performed By: #### L 100.0100, L500.2500 ####[facility] [address] [place], [address] CBC W/Diff, Automatedon 07-2 Absolute Lymph 1.17 X10 3/uL Normal 0.83-4.51 [facility] Comment on above: Performed By: #### L 100.0100, L500.2500 ####[facility] [address] [place], [address] Absolute Neut 3.3 X10 3/uL Normal 2.0-7.7 [facility] Comment on above: Performed By: #### L 100.0100, L500.2500 ####[facility] [address] [place], [address] Basophils/100 WBC (Bld) 0.6 % Normal 0-1 [facility] Comment on above: Performed By: #### L 100.0100, L500.2500 ####[facility] [address] [place], [address] Eosinophils/100 WBC (Bld) 4.7 % Normal 0-5 [facility] Comment on above: Performed By: #### L 100.0100, L500.2500 ####[facility] [address] [place], [address] Erythrocyte distribution width (RBC) [Ratio] 14.6 % Normal 11.6-14.6 [facility] Comment on above: Performed By: #### L 100.0100, L500.2500 ####[facility] [address] [place], [address] Hematocrit (Bld) [Volume fraction] 34.2 % Low 40-54 [facility] Comment on above: Performed By: #### L 100.0100, L500.2500 ####[facility] [address] [place], [address] Hemoglobin (Bld) [Mass/Vol] 11.2 g/dL Low 13.0-16.5 [facility] Comment on above: Performed By: #### L 100.0100, L500.2500 ####[facility] [address] [place], [address] IG% 0.200 Normal 0.0-0.9 [facility] Comment on above: Result Comment: IG% - Immature Granulocytes (promyelocytes, myelocytes andmetamyelocytes) > 1% indicates that a LEFT SHIFT is Present. Performed By: #### L 100.0100, L500.2500 ####[facility] [address] [place], [address] Lymphocytes/100 WBC (Bld) 22.7 % Normal 19-41 [facility] Comment on above: Performed By: #### L 100.0100, L500.2500 ####[facility] [address] [place], [address] MCH (RBC) [Entitic mass] 29.2 pg Normal 27.0-32.0 [facility] Comment on above: Performed By: #### L 100.0100, L500.2500 ####[facility] [address] [place], [address] MCHC (RBC) [Mass/Vol] 32.7 g/dL Normal 32-36 [facility] Comment on above: Performed By: #### L 100.0100, L500.2500 ####[facility] [address] [place], [address] MCV (RBC) [Entitic vol] 89.3 fL Normal 80-94 [facility] Comment on above: Performed By: #### L 100.0100, L500.2500 ####[facility] [address] [place], [address] Monocytes/100 WBC (Bld) 8.7 % Normal 0-10 [facility] Comment on above: Performed By: #### L 100.0100, L500.2500 ####[facility] [address] [place], [address] Neutrophils/100 WBC (Bld) 63.1 % Normal 47-70 [facility] Comment on above: Performed By: #### L 100.0100, L500.2500 ####[facility] [address] [place], [address] Nucleated RBC (Bld) [#/Vol] 0 10*3/uL Normal 0-5 [facility] Comment on above: Performed By: #### L 100.0100, L500.2500 ####[facility] [address] [place], [address] Platelet mean volume (Bld) [Entitic vol] 9.2 fL Normal 6.2-12.0 [facility] Comment on above: Performed By: #### L 100.0100, L500.2500 ####[facility] [address] [place], [address] Platelets (Bld) [#/Vol] 188 10*3/uL Normal 150-450 [facility] Comment on above: Performed By: #### L 100.0100, L500.2500 ####[facility] [address] [place], [address] RBC (Bld) [#/Vol] 3.83 10*6/uL Low 4.6-6.2 [facility] Comment on above: Performed By: #### L 100.0100, L500.2500 ####[facility] [address] [place], [address] RDW SD 47.7 fl High 35.1-43.9 [facility] Comment on above: Performed By: #### L 100.0100, L500.2500 ####[facility] [address] [place], [address] WBC (Bld) [#/Vol] 5.2 10*3/uL Normal 4.4-11.0 [facility] Comment on above: Performed By: #### L 100.0100, L500.2500 ####[facility] [address] [place], [address] Prothrombin Time w/INRon INR Coag (PPP) [Relative time] 2.8 {INR} Normal [facility] Comment on above: Performed By: #### L 300.3900 ####[facility] [address] [place], [address] PT Coag (PPP) [Time] 30.0 s High 11.7-14.9 [facility] Comment on above: Performed By: #### L 300.3900 ####[facility] [address] [place], [address] Basic Metabolic Profile (BMP )on 02-28-2025 BUN/CRE 12.9 RATIO Normal 10-20 [facility] Comment on above: Performed By: #### L 500.2500, L100.0100, L300.3900, L501.9520 ####[facility] [address] [place], [address] Calcium [Mass/Vol] 8.4 mg/dL Normal 7.6-11.0 [facility] Comment on above: Performed By: #### L 500.2500, L100.0100, L300.3900, L501.9520 ####[facility] [address] [place], [address] Chloride [Moles/Vol] 102 mmol/L Normal 98-108 [facility] Comment on above: Performed By: #### L 500.2500, L100.0100, L300.3900, L501.9520 ####[facility] [address] [place], [address] CO2 [Moles/Vol] 20.6 mmol/L Low 21.0-32.0 [facility] Comment on above: Performed By: #### L 500.2500, L100.0100, L300.3900, L501.9520 ####[facility] [address] [place], [address] Creatinine [Mass/Vol] 0.72 mg/dL Normal 0.70-1.20 [facility] Comment on above: Performed By: #### L 500.2500, L100.0100, L300.3900, L501.9520 ####[facility] [address] [place], [address] ECRCL 120.80 ml/min Normal 50-250 [facility] Comment on above: Performed By: #### L 500.2500, L100.0100, L300.3900, L501.9520 ####[facility] [address] [place], [address] GAP 10 Normal 5-15 [facility] Comment on above: Performed By: #### L 500.2500, L100.0100, L300.3900, L501.9520 ####[facility] [address] [place], [address] GFR/1.73 sq M.predicted among non-blacks MDRD (S/P/Bld) [Vol rate/Area] 98 mL/min/{1.73_m2} Normal >60 [facility] Comment on above: Result Comment: mL/m in/1.73m2 CKD-EPI Creatinine Equation (2020) Performed By: #### L 500.2500, L100.0100, L300.3900, L501.9520 ####[facility] [address] [place], [address] Glucose [Mass/Vol] 103 mg/dL High 70-99 [facility] Comment on above: Performed By: #### L 500.2500, L100.0100, L300.3900, L501.9520 ####[facility] [address] [place], [address] Potassium [Moles/Vol] 3.3 mmol/L Normal 3.3-5.1 [facility] Comment on above: Performed By: #### L 500.2500, L100.0100, L300.3900, L501.9520 ####[facility] [address] [place], [address] Sodium [Moles/Vol] 132 mmol/L Low 133-145 [facility] Comment on above: Performed By: #### L 500.2500, L100.0100, L300.3900, L501.9520 ####[facility] [address] [place], [address] Urea nitrogen [Mass/Vol] 9 mg/dL Normal 4-19 [facility] Comment on above: Performed By: #### L 500.2500, L100.0100, L300.3900, L501.9520 ####[facility] [address] [place], [address] BUN/CRE 14.3 RATIO Normal 10-20 [facility] Comment on above: Performed By: #### L 500.2500 ####[facility] [address] [place], [address] Calcium [Mass/Vol] 8.5 mg/dL Normal 7.6-11.0 [facility] Comment on above: Performed By: #### L 500.2500 ####[facility] [address] [place], [address] Chloride [Moles/Vol] 97 mmol/L Low 98-108 [facility] Comment on above: Performed By: #### L 500.2500 ####[facility] [address] [place], [address] CO2 [Moles/Vol] 20.5 mmol/L Low 21.0-32.0 [facility] Comment on above: Performed By: #### L 500.2500 ####[facility] [address] [place], [address] Creatinine [Mass/Vol] 0.70 mg/dL Normal 0.70-1.20 [facility] Comment on above: Performed By: #### L 500.2500 ####[facility] [address] [place], [address] ECRCL 122.07 ml/min Normal 50-250 [facility] Comment on above: Performed By: #### L 500.2500 ####[facility] [address] [place], [address] GAP 10 Normal 5-15 [facility] Comment on above: Performed By: #### L 500.2500 ####[facility] [address] [place], [address] GFR/1.73 sq M.predicted among non-blacks MDRD (S/P/Bld) [Vol rate/Area] 99 mL/min/{1.73_m2} Normal >60 [facility] Comment on above: Result Comment: mL/m in/1.73m2 CKD-EPI Creatinine Equation (2020) Performed By: #### L 500.2500 ####[facility] [address] [place], [address] Glucose [Mass/Vol] 111 mg/dL High 70-99 [facility] Comment on above: Performed By: #### L 500.2500 ####[facility] [address] [place], [address] Potassium [Moles/Vol] 3.2 mmol/L Low 3.3-5.1 [facility] Comment on above: Performed By: #### L 500.2500 ####[facility] [address] [place], [address] Sodium [Moles/Vol] 128 mmol/L Low 133-145 [facility] Comment on above: Performed By: #### L 500.2500 ####[facility] [address] [place], [address] Urea nitrogen [Mass/Vol] 10 mg/dL Normal 4-19 [facility] Comment on above: Performed By: #### L 500.2500 ####[facility] [address] [place], [address] CBC W/Diff, Automatedon 07-2 6-2024 Absolute Lymph 1.03 X10 3/uL Normal 0.83-4.51 [facility] Comment on above: Performed By: #### L 500.2500, L100.0100, L300.3900, L501.9520 ####[facility] [address] [place], [address] Absolute Neut 4.5 X10 3/uL Normal 2.0-7.7 [facility] Comment on above: Performed By: #### L 500.2500, L100.0100, L300.3900, L501.9520 ####[facility] [address] [place], [address] Basophils/100 WBC (Bld) 0.3 % Normal 0-1 [facility] Comment on above: Performed By: #### L 500.2500, L100.0100, L300.3900, L501.9520 ####[facility] [address] [place], [address] Eosinophils/100 WBC (Bld) 3.0 % Normal 0-5 [facility] Comment on above: Performed By: #### L 500.2500, L100.0100, L300.3900, L501.9520 ####[facility] [address] [place], [address] Erythrocyte distribution width (RBC) [Ratio] 13.9 % Normal 11.6-14.6 [facility] Comment on above: Performed By: #### L 500.2500, L100.0100, L300.3900, L501.9520 ####[facility] [address] [place], [address] Hematocrit (Bld) [Volume fraction] 32.3 % Low 40-54 [facility] Comment on above: Performed By: #### L 500.2500, L100.0100, L300.3900, L501.9520 ####[facility] [address] [place], [address] Hemoglobin (Bld) [Mass/Vol] 11.0 g/dL Low 13.0-16.5 [facility] Comment on above: Performed By: #### L 500.2500, L100.0100, L300.3900, L501.9520 ####[facility] [address] [place], [address] IG% 0.500 Normal 0.0-0.9 [facility] Comment on above: Result Comment: IG% - Immature Granulocytes (promyelocytes, myelocytes andmetamyelocytes) > 1% indicates that a LEFT SHIFT is Present. Performed By: #### L 500.2500, L100.0100, L300.3900, L501.9520 ####[facility] [address] [place], [address] Lymphocytes/100 WBC (Bld) 16.5 % Low 19-41 [facility] Comment on above: Performed By: #### L 500.2500, L100.0100, L300.3900, L501.9520 ####[facility] [address] [place], [address] MCH (RBC) [Entitic mass] 29.6 pg Normal 27.0-32.0 [facility] Comment on above: Performed By: #### L 500.2500, L100.0100, L300.3900, L501.9520 ####[facility] [address] [place], [address] MCHC (RBC) [Mass/Vol] 34.1 g/dL Normal 32-36 [facility] Comment on above: Performed By: #### L 500.2500, L100.0100, L300.3900, L501.9520 ####[facility] [address] [place], [address] MCV (RBC) [Entitic vol] 86.8 fL Normal 80-94 [facility] Comment on above: Performed By: #### L 500.2500, L100.0100, L300.3900, L501.9520 ####[facility] [address] [place], [address] Monocytes/100 WBC (Bld) 7.3 % Normal 0-10 [facility] Comment on above: Performed By: #### L 500.2500, L100.0100, L300.3900, L501.9520 ####[facility] [address] [place], [address] Neutrophils/100 WBC (Bld) 72.4 % High 47-70 [facility] Comment on above: Performed By: #### L 500.2500, L100.0100, L300.3900, L501.9520 ####[facility] [address] [place], [address] Nucleated RBC (Bld) [#/Vol] 0 10*3/uL Normal 0-5 [facility] Comment on above: Performed By: #### L 500.2500, L100.0100, L300.3900, L501.9520 ####[facility] [address] [place], [address] Platelet mean volume (Bld) [Entitic vol] 9.2 fL Normal 6.2-12.0 [facility] Comment on above: Performed By: #### L 500.2500, L100.0100, L300.3900, L501.9520 ####[facility] [address] [place], [address] Platelets (Bld) [#/Vol] 188 10*3/uL Normal 150-450 [facility] Comment on above: Performed By: #### L 500.2500, L100.0100, L300.3900, L501.9520 ####[facility] [address] [place], [address] RBC (Bld) [#/Vol] 3.72 10*6/uL Low 4.6-6.2 [facility] Comment on above: Performed By: #### L 500.2500, L100.0100, L300.3900, L501.9520 ####[facility] [address] [place], [address] RDW SD 43.3 fl Normal 35.1-43.9 [facility] Comment on above: Performed By: #### L 500.2500, L100.0100, L300.3900, L501.9520 ####[facility] [address] [place], [address] WBC (Bld) [#/Vol] 6.3 10*3/uL Normal 4.4-11.0 [facility] Comment on above: Performed By: #### L 500.2500, L100.0100, L300.3900, L501.9520 ####[facility] [address] [place], [address] CDIFF (PCR)on 02-28-2025 CDIFF Is the patient recei ving laxatives? N New/unexplained onset of 3 or more stools in past 24 hrs? Y Pending 027 027 NAP1-B1 Presumptive Negative *for epidemiolologic???use C. Diff PCR Negative- No toxigenic C. Diff Detected Normal [facility] Comment on above: Performed By: #### M 100.637, M100.6796 ####[facility] [address] [place], [address] Consultation - Surgicalon Consultation - Surgical Normal [facility] ENTERIC PATHOGEN PANEL STOOL on 02-28-2025 EP PANEL Normal [facility] Comment on above: Performed By: #### M 100.637, M100.6796 ####[facility] [address] [place], [address] Prothrombin Time w/INRon INR Coag (PPP) [Relative time] 2.5 {INR} Normal [facility] Comment on above: Performed By: #### L 500.2500, L100.0100, L300.3900, L501.9520 ####[facility] [address] [place], [address] PT Coag (PPP) [Time] 27.1 s High 11.7-14.9 [facility] Comment on above: Performed By: #### L 500.2500, L100.0100, L300.3900, L501.9520 ####[facility] [address] [place], [address] Small Bowel Series Onlyon Small Bowel Series Only Normal [facility] TSH DL <= 0.005 mIU/L QnOrde red By: Lisa Mike on 02-28-2025 TSH Qn 1.500 uIU/mL 0.300-4.200 [facility] Thyroid Stim Hormone (TSH)on 02-28-2025 TSH 1.500 uIU/mL Normal 0.300-4.200 [facility] Comment on above: Performed By: #### L 500.2500, L100.0100, L300.3900, L501.9520 ####[facility] [address] [place], [address] Abdomen/Pelvis W IV Cont ONL Yon 02-27-2025 Abdomen/Pelvis W IV Cont ONLY Normal [facility] Absolute lymphocyte countOrd ered By: Khang Osuna on 02-27-2025 Lymphocytes Auto (Unsp spec) [#/Vol] 1.39 10*3/uL 0.83-4.51 [facility] Absolute neutrophil countOrd ered By: Khang Osuna on 02-27-2025 Neutrophils (Bld) [#/Vol] 5.9 10*3/uL 2.0-7.7 [facility] Anion gap in Serum or Plasma Ordered By: Khang Osuna on 02-27-2025 Anion gap [Moles/Vol] 12 mmol/L 5-15 [facility] Automated lymphocyte count a s percentage of total leukocytesOrdered By: Khang Osuna on 02-27-2025 Lymphocytes/100 WBC Auto (Unsp spec) 16.7 % Low 19-41 [facility] BUN/creatinine ratioOrdered By: Khang Osuna on 02-27-2025 Urea nitrogen/Creatinine [Mass ratio] 18.2 mg/mg 10- [facility] Basic Metabolic Profile (BMP )on 02-27-2025 BUN/CRE 12.7 RATIO Normal - [facility] Comment on above: Performed By: #### L 500.2500 ####[facility] [address] [facility] [address] Calcium [Mass/Vol] 8.3 mg/dL Normal 7.6-11.0 [facility] Comment on above: Performed By: #### L 500.2500 ####[facility] [address] [place], [address] Chloride [Moles/Vol] 94 mmol/L Low 98-108 [facility] Comment on above: Performed By: #### L 500.2500 ####[facility] [address] [place], [address] CO2 [Moles/Vol] 20.8 mmol/L Low 21.0-32.0 [facility] Comment on above: Performed By: #### L 500.2500 ####[facility] [address] [place], [address] Creatinine [Mass/Vol] 0.76 mg/dL Normal 0.70-1.20 [facility] Comment on above: Performed By: #### L 500.2500 ####[facility] [address] [place], [address] ECRCL 122.07 ml/min Normal 50-250 [facility] Comment on above: Performed By: #### L 500.2500 ####[facility] [address] [place], [address] GAP 10 Normal 5-15 [facility] Comment on above: Performed By: #### L 500.2500 ####[facility] [address] [place], [address] GFR/1.73 sq M.predicted among non-blacks MDRD (S/P/Bld) [Vol rate/Area] 96 mL/min/{1.73_m2} Normal >60 [facility] Comment on above: Result Comment: mL/m in/1.73m2 CKD-EPI Creatinine Equation (2020) Performed By: #### L 500.2500 ####[facility] [address] [place], [address] Glucose [Mass/Vol] 120 mg/dL High 70-99 [facility] Comment on above: Performed By: #### L 500.2500 ####[facility] [address] [place], [address] Potassium [Moles/Vol] 3.2 mmol/L Low 3.3-5.1 [facility] Comment on above: Performed By: #### L 500.2500 ####[facility] [address] [place], [address] Sodium [Moles/Vol] 125 mmol/L Low 133-145 [facility] Comment on above: Performed By: #### L 500.2500 ####[facility] [address] [place], [address] Urea nitrogen [Mass/Vol] 10 mg/dL Normal 4-19 [facility] Comment on above: Performed By: #### L 500.2500 ####[facility] [address] [place], [address] BUN/CRE 14.1 RATIO Normal 10-20 [facility] Comment on above: Performed By: #### L 501.7300, L500.2500 ####[facility] [address] [place], [address] Calcium [Mass/Vol] 8.1 mg/dL Normal 7.6-11.0 [facility] Comment on above: Performed By: #### L 501.7300, L500.2500 ####[facility] [address] [place], [address] Chloride [Moles/Vol] 91 mmol/L Low 98-108 [facility] Comment on above: Performed By: #### L 501.7300, L500.2500 ####[facility] [address] [place], [address] CO2 [Moles/Vol] 20.2 mmol/L Low 21.0-32.0 [facility] Comment on above: Performed By: #### L 501.7300, L500.2500 ####[facility] [address] [place], [address] Creatinine [Mass/Vol] 0.75 mg/dL Normal 0.70-1.20 [facility] Comment on above: Performed By: #### L 501.7300, L500.2500 ####[facility] [address] [place], [address] ECRCL 122.07 ml/min Normal 50-250 [facility] Comment on above: Performed By: #### L 501.7300, L500.2500 ####[facility] [address] [place], [address] GAP 11 Normal 5-15 [facility] Comment on above: Performed By: #### L 501.7300, L500.2500 ####[facility] [address] [place], [address] GFR/1.73 sq M.predicted among non-blacks MDRD (S/P/Bld) [Vol rate/Area] 96 mL/min/{1.73_m2} Normal >60 [facility] Comment on above: Result Comment: mL/m in/1.73m2 CKD-EPI Creatinine Equation (2020) Performed By: #### L 501.7300, L500.2500 ####[facility] [address] [place], [address] Glucose [Mass/Vol] 134 mg/dL High 70-99 [facility] Comment on above: Performed By: #### L 501.7300, L500.2500 ####[facility] [address] [place], [address] Potassium [Moles/Vol] 3.1 mmol/L Low 3.3-5.1 [facility] Comment on above: Performed By: #### L 501.7300, L500.2500 ####[facility] [address] [place], [address] Sodium [Moles/Vol] 122 mmol/L Low 133-145 [facility] Comment on above: Performed By: #### L 501.7300, L500.2500 ####[facility] [address] [place], [address] Urea nitrogen [Mass/Vol] 11 mg/dL Normal 4-19 [facility] Comment on above: Performed By: #### L 501.7300, L500.2500 ####[facility] [address] [place], [address] Basophil percentageOrdered B y: Khang Osuna on 02-27-2025 Basophils/100 WBC (Bld) 0.2 % 0-1 [facility] Beta-Hydroxbytyrateon 2024 BETA-HYDROXYBUT 0.1 mmol/L Normal 0.0-0.3 [facility] Comment on above: Performed By: #### L 500.4050, L300.3900, L501.6901 ####[facility] [address] [place], [address] Beta-hydroxybutyrateOrdered By: Khang Osuna on 02-27-2025 Beta hydroxybutyrate [Mass/Vol] 0.1 mmol/L 0.0-0.3 [facility] Bilirubin Test strip Ql (U)O rdered By: Khang Osuna on 02-27-2025 Bilirubin Ql (U) Negative Negative [facility] Bilirubin, totalOrdered By: Khang Osuna on 02-27-2025 Bilirubin [Mass/Vol] 0.38 mg/dL 0.00-1.30 [facility] CBC W/Diff, Automatedon 02-04 Absolute Lymph 1.39 X10 3/uL Normal 0.83-4.51 [facility] Comment on above: Performed By: #### L 503.6005, L100.0100 ####[facility] [address] [place], [address] Absolute Neut 5.9 X10 3/uL Normal 2.0-7.7 [facility] Comment on above: Performed By: #### L 503.6005, L100.0100 ####[facility] [address] [place], [address] Basophils/100 WBC (Bld) 0.2 % Normal 0-1 [facility] Comment on above: Performed By: #### L 503.6005, L100.0100 ####[facility] [address] [place], [address] Eosinophils/100 WBC (Bld) 1.9 % Normal 0-5 [facility] Comment on above: Performed By: #### L 503.6005, L100.0100 ####[facility] [address] [place], [address] Erythrocyte distribution width (RBC) [Ratio] 13.8 % Normal 11.6-14.6 [facility] Comment on above: Performed By: #### L 503.6005, L100.0100 ####[facility] [address] [place], [address] Hematocrit (Bld) [Volume fraction] 32.5 % Low 40-54 [facility] Comment on above: Performed By: #### L 503.6005, L100.0100 ####[facility] [address] [place], [address] Hemoglobin (Bld) [Mass/Vol] 11.0 g/dL Low 13.0-16.5 [facility] Comment on above: Performed By: #### L 503.6005, L100.0100 ####[facility] [address] [place], [address] IG% 0.600 Normal 0.0-0.9 [facility] Comment on above: Result Comment: IG% - Immature Granulocytes (promyelocytes, myelocytes andmetamyelocytes) > 1% indicates that a LEFT SHIFT is Present. Performed By: #### L 503.6005, L100.0100 ####[facility] [address] [place], [address] Lymphocytes/100 WBC (Bld) 16.7 % Low 19-41 [facility] Comment on above: Performed By: #### L 503.6005, L100.0100 ####[facility] [address] [place], [address] MCH (RBC) [Entitic mass] 29.2 pg Normal 27.0-32.0 [facility] Comment on above: Performed By: #### L 503.6005, L100.0100 ####[facility] [address] [place], [address] MCHC (RBC) [Mass/Vol] 33.8 g/dL Normal 32-36 [facility] Comment on above: Performed By: #### L 503.6005, L100.0100 ####[facility] [address] [place], [address] MCV (RBC) [Entitic vol] 86.2 fL Normal 80-94 [facility] Comment on above: Performed By: #### L 503.6005, L100.0100 ####[facility] [address] [place], [address] Monocytes/100 WBC (Bld) 9.2 % Normal 0-10 [facility] Comment on above: Performed By: #### L 503.6005, L100.0100 ####[facility] [address] [place], [address] Neutrophils/100 WBC (Bld) 71.4 % High 47-70 [facility] Comment on above: Performed By: #### L 503.6005, L100.0100 ####[facility] [address] [place], [address] Nucleated RBC (Bld) [#/Vol] 0 10*3/uL Normal 0-5 [facility] Comment on above: Performed By: #### L 503.6005, L100.0100 ####[facility] [address] [place], [address] Platelet mean volume (Bld) [Entitic vol] 8.9 fL Normal 6.2-12.0 [facility] Comment on above: Performed By: #### L 503.6005, L100.0100 ####[facility] [address] [place], [address] Platelets (Bld) [#/Vol] 193 10*3/uL Normal 150-450 [facility] Comment on above: Performed By: #### L 503.6005, L100.0100 ####[facility] [address] [place], [address] RBC (Bld) [#/Vol] 3.77 10*6/uL Low 4.6-6.2 [facility] Comment on above: Performed By: #### L 503.6005, L100.0100 ####[facility] [address] [place], [address] RDW SD 43.1 fl Normal 35.1-43.9 [facility] Comment on above: Performed By: #### L 503.6005, L100.0100 ####[facility] [address] [place], [address] WBC (Bld) [#/Vol] 8.3 10*3/uL Normal 4.4-11.0 [facility] Comment on above: Performed By: #### L 503.6005, L100.0100 ####[facility] [address] [place], [address] CO2 (BldV) [Moles/Vol]Ordere d By: Khang Osuna on 02-27-2025 CO2 [Moles/Vol] 22 mmol/L Low 23-33 [facility] Carbon dioxide, total [Moles /volume] in Central venous bloodOrdered By: Khang Osuna on 02-27-2025 CO2 [Moles/Vol] 19.7 mmol/L Low 21.0-32.0 [facility] Chloride assayOrdered By: Guille Osuna on 02-27-2025 Chloride [Moles/Vol] 89 mmol/L Low 98-108 [facility] Clostridium difficile detect ion by polymerase chain reactionOrdered By: Lisa Mike on 02-27-2025 C. difficile DNA ZACHARY+probe Ql (Unsp spec) [facility] Comprehensive Metabolic Prof ilon 02-27-2025 Albumin [Mass/Vol] 3.8 g/dL Normal 3.4-4.8 [facility] Comment on above: Performed By: #### L 500.4050, L300.3900, L501.6901 ####[facility] [address] [place], [address] Albumin/Globulin [Mass ratio] 1.6 {ratio} Normal 0.9-2.4 [facility] Comment on above: Performed By: #### L 500.4050, L300.3900, L501.6901 ####[facility] [address] [place], [address] ALK PHOS 113 U/L Normal 40-129 [facility] Comment on above: Performed By: #### L 500.4050, L300.3900, L501.6901 ####[facility] [address] [place], [address] ALT [Catalytic activity/Vol] 24 U/L Normal <=46 [facility] Comment on above: Performed By: #### L 500.4050, L300.3900, L501.6901 ####[facility] [address] [place], [address] AST [Catalytic activity/Vol] 29 U/L Normal <=37 [facility] Comment on above: Performed By: #### L 500.4050, L300.3900, L501.6901 ####[facility] [address] [place], [address] Bilirubin [Mass/Vol] 0.38 mg/dL Normal 0.00-1.30 [facility] Comment on above: Performed By: #### L 500.4050, L300.3900, L501.6901 ####[facility] [address] [place], [address] BUN/CRE 18.2 RATIO Normal 10-20 [facility] Comment on above: Performed By: #### L 500.4050, L300.3900, L501.6901 ####[facility] [address] [place], [address] Calcium [Mass/Vol] 8.0 mg/dL Normal 7.6-11.0 [facility] Comment on above: Performed By: #### L 500.4050, L300.3900, L501.6901 ####[facility] [address] [place], [address] Chloride [Moles/Vol] 89 mmol/L Low 98-108 [facility] Comment on above: Performed By: #### L 500.4050, L300.3900, L501.6901 ####[facility] [address] [place], [address] CO2 [Moles/Vol] 19.7 mmol/L Low 21.0-32.0 [facility] Comment on above: Performed By: #### L 500.4050, L300.3900, L501.6901 ####[facility] [address] [place], [address] Creatinine [Mass/Vol] 0.81 mg/dL Normal 0.70-1.20 [facility] Comment on above: Performed By: #### L 500.4050, L300.3900, L501.6901 ####[facility] [address] [place], [address] ECRCL 118.12 ml/min Normal 50-250 [facility] Comment on above: Performed By: #### L 500.4050, L300.3900, L501.6901 ####[facility] [address] [place], [address] GAP 12 Normal 5-15 [facility] Comment on above: Performed By: #### L 500.4050, L300.3900, L501.6901 ####[facility] [address] [place], [address] GFR/1.73 sq M.predicted among non-blacks MDRD (S/P/Bld) [Vol rate/Area] 94 mL/min/{1.73_m2} Normal >60 [facility] Comment on above: Result Comment: mL/m in/1.73m2 CKD-EPI Creatinine Equation (2020) Performed By: #### L 500.4050, L300.3900, L501.6901 ####[facility] [address] [place], [address] Globulin (S) [Mass/Vol] 2.3 g/dL Normal 2.2-4.2 [facility] Comment on above: Performed By: #### L 500.4050, L300.3900, L501.6901 ####[facility] [address] [place], [address] Glucose [Mass/Vol] 100 mg/dL High 70-99 [facility] Comment on above: Performed By: #### L 500.4050, L300.3900, L501.6901 ####[facility] [address] [place], [address] Potassium [Moles/Vol] 3.0 mmol/L Low 3.3-5.1 [facility] Comment on above: Performed By: #### L 500.4050, L300.3900, L501.6901 ####[facility] [address] [place], [address] Sodium [Moles/Vol] 121 mmol/L Low 133-145 [facility] Comment on above: Performed By: #### L 500.4050, L300.3900, L501.6901 ####[facility] [address] [place], [address] T PROT 6.1 g/dL Normal 5.9-8.4 [facility] Comment on above: Performed By: #### L 500.4050, L300.3900, L501.6901 ####[facility] [address] [place], [address] Urea nitrogen [Mass/Vol] 15 mg/dL Normal 4-19 [facility] Comment on above: Performed By: #### L 500.4050, L300.3900, L501.6901 ####[facility] [address] [place], [address] Emergency Department Summary on 02-27-2025 Emergency Department Summary Normal [facility] Eosinophil percentageOrdered By: Khang Osuna on 02-27-2025 Eosinophils/100 WBC (Bld) 1.9 % 0-5 [facility] Erythrocyte distribution wid th ratioOrdered By: Khang Osuna on 02-27-2025 Erythrocyte distribution width (RBC) [Ratio] 13.8 % 11.6-14.6 [facility] Erythrocyte distribution wid th standard deviationOrdered By: Khang Osuna on 02-27-2025 Erythrocyte distribution width (RBC) [Ratio] 43.1 fl 35.1-43.9 [facility] Glomerular filtration rate ( GFR) estimation/1.73 sq m using serum, plasma, or whole bOrdered By: Khang Osuna on 02-27-2025 GFR/1.73 sq M.predicted among non-blacks MDRD (S/P/Bld) [Vol rate/Area] 94 mL/min/{1.73_m2} >60 [facility] Comment on above: mL/min/1.73m2 CKD-EP I Creatinine Equation (2020) H AND P Exam - Hospitaliston 02-27-2025 H&P Exam - Hospitalist Normal [facility] Hematocrit Auto (Bld) [Volum e fraction]Ordered By: Khang Osuna on 02-27-2025 Hematocrit (Bld) [Volume fraction] 32.5 % Low 40-54 [facility] Hemoglobin measurementOrdere d By: Khang Osuna on 02-27-2025 Hemoglobin (Bld) [Mass/Vol] 11.0 g/dL Low 13.0-16.5 [facility] Immature granulocytes/100 WB C Auto (Bld)Ordered By: Khang Osuna on 07-25-2025 Immature granulocytes/100 WBC (Bld) 0.600 % 0.0-0.9 [facility] Comment on above: IG% - Immature Granu locytes (promyelocytes, myelocytes and metamyelocytes) > 1% indicates that a LEFT SHIFT is Present. International normalized rat io (INR) calculationOrdered By: Khang Osuna on 02-27-2025 INR Coag (Bld) [Relative time] 2.5 {INR} [facility] Ketones Test strip Ql (U)Ord ered By: Khang Osuna on 02-27-2025 Ketones Ql (U) Negative Negative [facility] Laboratory - Chemistry and C hemistry - challengeOrdered By: Khang Osuna on 02-27-2025 AST [Catalytic activity/Vol] 29 U/L <38 [facility] Lactic Acidon 02-27-2025 Lactate [Moles/Vol] 1.4 mmol/L Normal 0.0-2.0 [facility] Comment on above: Order Comment: Y Performed By: #### L 503.6005, L100.0100 ####[facility] [address] [place], [address] Lactic acid measurementOrder ed By: Khang Osuna on 02-27-2025 Lactate [Moles/Vol] 1.4 mmol/L 0.0-2.0 [facility] MCV (mean corpuscular volume ) determinationOrdered By: Khang Osuna on 02-27-2025 MCV (RBC) [Entitic vol] 86.2 fL 80-94 [facility] MR/CON.PCM.GIon 02-27-2025 MR/CON.PCM.GI Normal [facility] Mean corpuscular hemoglobin (MCH) determinationOrdered By: Khang Osuna on 02-27-2025 MCH (RBC) [Entitic mass] 29.2 pg 27.0-32.0 [facility] Mean corpuscular hemoglobin concentration (MCHC) determinationOrdered By: Khang Osuna on 02-27-2025 MCHC (RBC) [Mass/Vol] 33.8 g/dL 32-36 [facility] Mean platelet volume determi nationOrdered By: Khang Osuna on 02-27-2025 Platelet mean volume (Bld) [Entitic vol] 8.9 fL 6.2-12.0 [facility] Microscopic analysis of urin e for red blood cells (RBC)Ordered By: Khang Osuna on 02-27-2025 Microscopic analysis of urine for red blood cells (RBC) 0 SEEN /hpf 0-5 [facility] Monocyte percentageOrdered B y: Khang Osuna on 02-27-2025 Monocytes/100 WBC (Bld) 9.2 % 0-10 [facility] Mucus LM Ql (Urine sed)Order ed By: Khang Osuna on 02-27-2025 Mucus Ql (Urine sed) 0 SEEN /hpf [facility] Neutrophil percentageOrdered By: Khang Osuna on 02-27-2025 Neutrophils/100 WBC (Bld) 71.4 % High 47-70 [facility] Nitrite Test strip Ql (U)Ord ered By: Khang Osuna on 02-27-2025 Nitrite Ql (U) Negative Negative [facility] No Panel InformationOrdered By: Khang Osuna on 02-27-2025 Blood Gas Sample Site Not entered [facility] Blood Gas Specimen Type SAIGE [facility] Oxygen Delivery Device Not entered [facility] Nucleated red blood cell per centageOrdered By: Khang Osuna on 02-27-2025 Nucleated RBC/100 WBC (Bld) [Ratio] 0 % 0-5 [facility] Osmolality urOrdered By: Francisco Mike on 02-27-2025 Osmolality (U) [Osmolality] 303 mOsm/KG >50 [facility] Comment on above: Normal Urine Referen ce Ranges Random: 50 - 1200 mOsm/kg H20 depending on fluid intake Random: >850 mOsm/kg after 12 hour fluid restriction 24 hour: ~300 - 900 mOsm/kg H2O Osmolality, Serumon 02-28-20 25 OSMOLALITY,SER 255 mOsm/KG Low 280-301 [facility] Comment on above: Performed By: #### L 501.3600, L500.2500 ####[facility] [address] [place], [address] Osmolality, Urineon 02-28-20 25 OSMOLALITY,UR 303 mOsm/KG Normal [facility] Comment on above: Result Comment: Norm al Urine Reference Ranges Random: 50 - 1200 mOsm/kg H20 depending on fluid intake Random: >850 mOsm/kg after 12 hour fluid restriction 24 hour: 300 - 900 mOsm/kg H2O Performed By: #### L 502.0715, L501.7400, L500.9400 ####[facility] [address] [place], [address] Platelet countOrdered By: Guille Osuna on 02-27-2025 Platelets (Bld) [#/Vol] 193 10*3/uL 150-450 [facility] Potassium measurement (mass/ volume)Ordered By: Khang Osuna on 02-27-2025 Potassium (Unsp spec) [Mass/Vol] 3.0 mmol/L Low 3.3-5.1 [facility] Protein Test strip Ql (U)Ord ered By: Khang Osuna on 02-27-2025 Protein Ql (U) 15 mg/dl High Negative [facility] Prothrombin Time w/INRon INR Coag (PPP) [Relative time] 2.5 {INR} Normal [facility] Comment on above: Performed By: #### L 500.4050, L300.3900, L501.6901 ####[facility] [address] [place], [address] PT Coag (PPP) [Time] 27.7 s High 11.7-14.9 [facility] Comment on above: Performed By: #### L 500.4050, L300.3900, L501.6901 ####[facility] [address] [place], [address] Prothrombin timeOrdered By: Khang Osuna on 02-27-2025 PT Coag (PPP) [Time] 27.7 s High 11.7-14.9 [facility] RBC Auto (Bld) [#/Vol]Ordere d By: Khang Osuna on 02-27-2025 RBC (Bld) [#/Vol] 3.77 10*6/uL Low 4.6-6.2 [facility] Serum creatinine measurement (mass/volume)Ordered By: Khang Osuna on 02-27-2025 Creatinine [Mass/Vol] 0.81 mg/dL 0.70-1.20 [facility] Serum globulin measurementOr dered By: Khang Osuna on 02-27-2025 Globulin (S) [Mass/Vol] 2.3 g/dL 2.2-4.2 [facility] Serum glucose measurement (m ass/volume)Ordered By: Khang Osuna on 02-27-2025 Glucose [Mass/Vol] 100 mg/dL High 70-99 [facility] Serum or plasma alanine hernandez otransferase (ALT) measurementOrdered By: Khang Osuna on 02-27-2025 ALT [Catalytic activity/Vol] 24 U/L <47 [facility] Serum or plasma albumin mickie urement (mass/volume)Ordered By: Khang Osuna on 02-27-2025 Albumin [Mass/Vol] 3.8 g/dL 3.4-4.8 [facility] Serum or plasma albumin/glob ulin mass ratioOrdered By: Khang Osuna on 02-27-2025 Albumin/Globulin [Mass ratio] 1.6 {ratio} 0.9-2.4 [facility] Serum or plasma alkaline anna sphatase measurementOrdered By: Khang Osuna on 02-27-2025 ALP [Catalytic activity/Vol] 113 U/L 40-129 [facility] Serum or plasma calcium mickie urement (mass/volume)Ordered By: Khang Osuna on 02-27-2025 Calcium [Mass/Vol] 8.0 mg/dL 7.6-11.0 [facility] Serum or plasma urea nitroge n measurement (mass/volume)Ordered By: Khang Osuna on 02-27-2025 Urea nitrogen [Mass/Vol] 15 mg/dL 4-19 [facility] Sodium levelOrdered By: Tomy Osuna on 02-27-2025 Sodium [Moles/Vol] 121 mmol/L Low 133-145 [facility] Squamous epithelial cells de tection in urine sediment by light microscopyOrdered By: Khang Osuna on 02-27-2025 Epithelial cells.squamous LM Ql (Urine sed) 0 SEEN /hpf 0-5 [facility] Total proteinOrdered By: Kay Osuna on 02-27-2025 Protein [Mass/Vol] 6.1 g/dL 5.9-8.4 [facility] Urea Nitrogen, Urineon 02-27 URINE UREA 285 mg/dL Normal NO RANGE EST. [facility] Comment on above: Performed By: #### L 502.0715, L501.7400, L500.9400 ####[facility] [address] [place], [address] Urinalysis, Completeon 02-27 BACTERIA 0 SEEN Normal None Seen [facility] Comment on above: Order Comment: CLEAN CATCH Performed By: #### L 400.0001 ####[facility] [address] [place], [address] EPI,SQUAMOUS 0 SEEN Normal 0-5 [facility] Comment on above: Order Comment: CLEAN CATCH Performed By: #### L 400.0001 ####[facility] [address] [place], [address] Mucus Ql (Urine sed) 0 SEEN Normal [facility] Comment on above: Order Comment: CLEAN CATCH Performed By: #### L 400.0001 ####[facility] [address] [place], [address] RBC 0 SEEN Normal 0-5 [facility] Comment on above: Order Comment: CLEAN CATCH Performed By: #### L 400.0001 ####[facility] [address] [place], [address] WBC 0 SEEN Normal 0-5 [facility] Comment on above: Order Comment: CLEAN CATCH Performed By: #### L 400.0001 ####[facility] [address] [place], [address] Urine Electrolytes- Randomon 02-27-2025 Chloride,URINE 39 mmol/L Normal Not Establ. [facility] Comment on above: Performed By: #### L 502.0715, L501.7400, L500.9400 ####[facility] [address] [place], [address] Sodium (U) [Moles/Vol] 51 mmol/L Normal Not Establ. [facility] Comment on above: Performed By: #### L 502.0715, L501.7400, L500.9400 ####[facility] [address] [place], [address] UR K 9.3 mmol/L Normal Not Establ. [facility] Comment on above: Performed By: #### L 502.0715, L501.7400, L500.9400 ####[facility] [address] [place], [address] Urine clarityOrdered By: Kay Osuna on 02-27-2025 Clarity (U) Clear Clear [facility] Urine color determinationOrd ered By: Khang Osuna on 02-27-2025 Color (U) Yellow Yellow [facility] Urine glucose detectionOrder ed By: Khang Osuna on 02-27-2025 Glucose Ql (U) Normal mg/dl Normal [facility] Urine leukocyte esterase det ection by dipstickOrdered By: Khang Osuna on 02-27-2025 Leukocyte esterase Test strip Ql (U) Negative Negative [facility] Urine pHOrdered By: Khang Osuna on 02-27-2025 pH (U) 7.0 [pH] 5.0 - 8.0 [facility] Urine potassium measurement (moles/volume)Ordered By: Lisa Mike on 02-27-2025 Potassium (U) [Moles/Vol] 9.3 mmol/L Not Establ. [facility] Urine sediment bacteria coun t by microscopy (number/high power field)Ordered By: Khang Osuna on 02-27-2025 Bacteria LM.HPF (Urine sed) [#/Area] 0 /[HPF] None Seen [facility] Urine sodium measurement (mo les/volume)Ordered By: Lisa Mike on 02-27-2025 Sodium (U) [Moles/Vol] 51 mmol/L Not Establ. [facility] Urine specific gravity measu rementOrdered By: Khang Osuna on 02-27-2025 Specific gravity (U) [Rel density] 1.010 1.002-1.030 [facility] Urine urobilinogen measureme ntOrdered By: Khang Osuna on 02-27-2025 Urobilinogen Ql (U) Normal mg/dl Normal [facility] Venous Blood Gason Blood Gas Type SAIGE Normal [facility] Comment on above: Performed By: #### L 9000.0810 ####[facility] [address] [place], [address] CO2 [Moles/Vol] 22 mmol/L Low 23-33 [facility] Comment on above: Performed By: #### L 9000.0810 ####[facility] [address] [place], [address] HCO3 (Bld) [Moles/Vol] 21 mmol/L Low 22-26 [facility] Comment on above: Performed By: #### L 9000.0810 ####[facility] [address] [place], [address] O2 Delivery Dev Not entered [facility] Comment on above: Performed By: #### L 9000.0810 ####[facility] [address] [place], [address] SITE Not entered Normal [facility] Comment on above: Performed By: #### L 9000.0810 ####[facility] [address] [place], [address] VBG BE -5 mmol/L Low -1.0-3.5 [facility] Comment on above: Performed By: #### L 9000.0810 ####[facility] [address] [place], [address] VBG pCO2 34.8 mmHg Low 41-51 [facility] Comment on above: Performed By: #### L 9000.0810 ####[facility] [address] [place], [address] VBG pH 7.38 Normal 7.32-7.42 [facility] Comment on above: Performed By: #### L 9000.0810 ####[facility] [address] [place], [address] VBG PO2 55 mmHg High 25-40 [facility] Comment on above: Performed By: #### L 9000.0810 ####[facility] [address] [place], [address] VBG SO2 88 High 50-70 [facility] Comment on above: Performed By: #### L 9000.0810 ####[facility] [address] [place], [place], [address] Venous blood base excess isabel surementOrdered By: Khang Osuna on 02-27-2025 Base excess Calc (BldV) [Moles/Vol] -5 mmol/L Low -1.0-3.5 [facility] Venous blood bicarbonate isabel surementOrdered By: Khang Osuna on 02-27-2025 HCO3 (Bld) [Moles/Vol] 21 mmol/L Low 22-26 [facility] Venous blood oxygen saturati on measurementOrdered By: Khang Osuna on 02-27-2025 Oxygen saturation in Blood 88 % High 50-70 [facility] Venous blood pH measurementO rdered By: Khang Osuna on 02-27-2025 pH (BldV) 7.38 [pH] 7.32-7.42 [facility] Venous blood partial pressur e of carbon dioxide measurementOrdered By: Khang Osuna on 02-27-2025 CO2 (BldV) [Partial pressure] 34.8 mm[Hg] Low 41-51 [facility] Venous blood partial pressur e of oxygen measurementOrdered By: Khang Osuna on 02-27-2025 Oxygen (BldV) [Partial pressure] 55 mm[Hg] High 25-40 [facility] White blood cell (WBC) count Ordered By: Khang Osuna on 02-27-2025 WBC (Bld) [#/Vol] 8.3 10*3/uL 4.4-11.0 [facility] White blood cell countOrdere d By: Khang Osuna on 02-27-2025 White blood cell count 0 SEEN /hpf 0-5 [facility] Bacteria Bld Culton 02-11-20 Bacteria identified Cx Nom (Bld) CULTURE, BLOOD: No growth 5 days Normal [facility] Comment on above: Performed By: #### 6 00-7 #### [facility] CLIA [id number] [address] [place] [address] [place] Bacteria identified Cx Nom (Bld) CULTURE, BLOOD: No growth 5 days Normal [facility] Comment on above: Performed By: #### 6 00-7 #### [facility] CLIA [id number] [address] [place] [address] [place] Basic metabolic 2000 panelon 02-10-2025 Anion gap [Moles/Vol] 11 mmol/L Normal 8-15 [facility] Comment on above: Order Comment: Speci men Type: BLOOD SPECIMENOrdering Facility: [facility] Address: [address] [place] [address] Performed By: #### O BDX #### [facility] CLIA [id number] [address] [place] [address] [place] Calcium [Mass/Vol] 8.8 mg/dL Normal 8.5-10.2 [facility] Comment on above: Order Comment: Speci men Type: BLOOD SPECIMENOrdering Facility: [facility] Address: [address] [place] [address] Performed By: #### O BDX #### [facility] CLIA [id number] [address] [place] [address] [place] Chloride [Moles/Vol] 106 mmol/L Normal 98-107 [facility] Comment on above: Order Comment: Speci men Type: BLOOD SPECIMENOrdering Facility: [facility] Address: [address] [place] [address] Performed By: #### O BDX #### [facility] CLIA [id number] [address] [place] [address] [place] CO2 [Moles/Vol] 24 mmol/L Normal 22-30 [facility] Comment on above: Order Comment: Elijahi men Type: BLOOD SPECIMENOrdering Facility: [facility] Address: [address] [place] [address] Performed By: #### O BDX #### [facility] CLIA [id number] [address] [place] [address] [place] Creatinine [Mass/Vol] 1.06 mg/dL Normal 0.73-1.22 [facility] Comment on above: Order Comment: Jordan men Type: BLOOD SPECIMENOrdering Facility: [facility] Address: [address] [place] [address] Performed By: #### O BDX #### [facility] CLIA [id number] [address] [place] Creatinine and Glomerular filtration rate.predicted panel (S/P/Bld) 75 mL/min/1.73m??? Normal >=60 [facility] Comment on above: Order Comment: Jordan arteaga Type: BLOOD SPECIMENOrdering Facility: [facility] Address: [address] [place] [address] Result Comment: Jazmin mated Glomerular Filtration Rate [...] GFR. Performed By: #### O BDX #### [facility] CLIA [id number] [address] [place] [address] [place] Glucose [Mass/Vol] 102 mg/dL High 74-99 [facility] Comment on above: Order Comment: Elijahi men Type: BLOOD SPECIMENOrdering Facility: [facility] Address: [address] [place] [address] Result Comment: The [place] [employer] (ADA) provides guidance for cutoff [...] Standards of Medical Care in Diabetes 2016, [place] [employer]. Diabetes Care. 2016.39(Suppl 1). Performed By: #### O BDX #### [facility] CLIA [id number] [address] [place] [address] [place] Potassium [Moles/Vol] 3.6 mmol/L Low 3.7-5.1 [facility] Comment on above: Order Comment: Jordan arteaga Type: BLOOD SPECIMENOrdering Facility: [facility] Address: [address] [place] [address] Performed By: #### O BDX #### [facility] CLIA [id number] [address] STATES [facility] Sodium [Moles/Vol] 141 mmol/L Normal 136-144 [facility] Comment on above: Order Comment: Jordan arteaga Type: BLOOD SPECIMENOrdering Facility: [facility] Address: [address] [place] [address] Performed By: #### O BDX #### [facility] CLIA [id number] [address] [place] [address] [place] Urea nitrogen [Mass/Vol] 17 mg/dL Normal 9-24 [facility] Comment on above: Order Comment: Jordan arteaga Type: BLOOD SPECIMENOrdering Facility: [facility] Address: [address] [place] [address] Performed By: #### O BDX #### [facility] CLIA [id number] [address] [place] [address] [place] CBC W Auto Differential pane l (Bld)on 02-10-2025 Basophils (Bld) [#/Vol] 0.04 10*3/uL Normal <0.11 [facility] Comment on above: Order Comment: Speci men Type: BLOOD SPECIMENOrdering Facility: [facility] Address: [address] [place] [address] Performed By: #### O BDX #### [facility] CLIA [id number] [address] [place] Basophils/100 WBC (Bld) 0.5 % Normal [facility] Comment on above: Order Comment: Speci men Type: BLOOD SPECIMENOrdering Facility: [facility] Address: [address] [place] [address] Performed By: #### O BDX #### [facility] CLIA [id number] [address] Differential cell count method Nom (Bld) Auto Normal [facility] Comment on above: Order Comment: Speci men Type: BLOOD SPECIMENOrdering Facility: [facility] Address: [address] [place] [address] Performed By: #### O BDX #### [facility] CLIA [id number] [address] [place] [address] [place] Eosinophils (Bld) [#/Vol] 0.24 10*3/uL Normal <0.46 [facility] Comment on above: Order Comment: Speci men Type: BLOOD SPECIMENOrdering Facility: [facility] Address: [address] [place] [address] Performed By: #### O BDX #### [facility] CLIA [id number] [address] Eosinophils/100 WBC (Bld) 3.3 % Normal [facility] Comment on above: Order Comment: Speci men Type: BLOOD SPECIMENOrdering Facility: [facility] Address: [address] [place] [address] Performed By: #### O BDX #### [facility] CLIA [id number] [address] [place] Erythrocyte distribution width (RBC) [Ratio] 14.5 % Normal 11.5-15.0 [facility] Comment on above: Order Comment: Speci men Type: BLOOD SPECIMENOrdering Facility: [facility] Address: [address] [place] [address] Performed By: #### O BDX #### [facility] CLIA [id number] [address] [place] Hematocrit (Bld) [Volume fraction] 37.9 % Low 39.0-51.0 [facility] Comment on above: Order Comment: Speci men Type: BLOOD SPECIMENOrdering Facility: [facility] Address: [address] [place] [address] Performed By: #### O BDX #### [facility] CLIA [id number] [address] [place] Hemoglobin (Bld) [Mass/Vol] 12.2 g/dL Low 13.0-17.0 [facility] Comment on above: Order Comment: Speci men Type: BLOOD SPECIMENOrdering Facility: [facility] Address: [address] [place] [address] Performed By: #### O BDX #### [facility] CLIA [id number] [address] [place] Immature granulocytes (Bld) [#/Vol] 10*3/uL Normal <0.10 [facility] Comment on above: Order Comment: Speci men Type: BLOOD SPECIMENOrdering Facility: [facility] Address: [address] [place] [address] Performed By: #### O BDX #### [facility] CLIA [id number] [address] [place] Immature granulocytes/100 WBC (Bld) 0.3 % Normal [facility] [facility] Comment on above: Order Comment: Speci men Type: BLOOD SPECIMENOrdering Facility: [facility] Address: [address] [place] [address] Performed By: #### O BDX #### [facility] CLIA [id number] [address] [place] Lymphocytes (Bld) [#/Vol] 1.37 10*3/uL Normal 1.00-4.00 [facility] Comment on above: Order Comment: Speci men Type: BLOOD SPECIMENOrdering Facility: [facility] Address: [address] [place] [address] Performed By: #### O BDX #### [facility] CLIA [id number] [address] Lymphocytes/100 WBC (Bld) 18.8 % Normal [facility] Comment on above: Order Comment: Speci men Type: BLOOD SPECIMENOrdering Facility: [facility] Address: [address] [place] [address] Performed By: #### O BDX #### [facility] CLIA [id number] [address] MCH (RBC) [Entitic mass] 29.3 pg Normal 26.0-34.0 [facility] Comment on above: Order Comment: Speci men Type: BLOOD SPECIMENOrdering Facility: [facility] Address: [address] [place] [address] Performed By: #### O BDX #### [facility] CLIA [id number] [address] [place] MCHC (RBC) [Mass/Vol] 32.2 g/dL Normal 30.5-36.0 [facility] Comment on above: Order Comment: Speci men Type: BLOOD SPECIMENOrdering Facility: [facility] Address: [address] [place] [address] Performed By: #### O BDX #### [facility] CLIA [id number] [address] MCV (RBC) [Entitic vol] 90.9 fL Normal 80.0-100.0 [facility] Comment on above: Order Comment: Speci men Type: BLOOD SPECIMENOrdering Facility: [facility] Address: [address] [place] [address] Performed By: #### O BDX #### [facility] CLIA [id number] [address] Monocytes (Bld) [#/Vol] 0.63 10*3/uL Normal <0.87 [facility] Comment on above: Order Comment: Speci men Type: BLOOD SPECIMENOrdering Facility: [facility] Address: [address] [place] [address] Performed By: #### O BDX #### [facility] CLIA [id number] [address] [place] Monocytes/100 WBC (Bld) 8.6 % Normal [facility] Comment on above: Order Comment: Speci men Type: BLOOD SPECIMENOrdering Facility: [facility] Address: [address] [place] [address] Performed By: #### O BDX #### [facility] CLIA [id number] [address] [place] [address] [place] Neutrophils (Bld) [#/Vol] 4.99 10*3/uL Normal 1.45-7.50 [facility] Comment on above: Order Comment: Speci men Type: BLOOD SPECIMENOrdering Facility: [facility] Address: [address] [place] [address] Performed By: #### O BDX #### [facility] CLIA [id number] [address] [place] Neutrophils/100 WBC (Bld) 68.5 % Normal [facility] Comment on above: Order Comment: Speci men Type: BLOOD SPECIMENOrdering Facility: [facility] Address: [address] [place] [address] Performed By: #### O BDX #### [facility] CLIA [id number] [address] [place] Nucleated RBC (Bld) [#/Vol] 10*3/uL Normal <0.01 [facility] Comment on above: Order Comment: Speci men Type: BLOOD SPECIMENOrdering Facility: [facility] Address: [address] [place] [address] Performed By: #### O BDX #### [facility] CLIA [id number] [address] [place] Nucleated RBC/100 WBC (Bld) [Ratio] 0.0 /100 WBC Normal [facility] Comment on above: Order Comment: Speci men Type: BLOOD SPECIMENOrdering Facility: [facility] Address: [address] [place] [address] Performed By: #### O BDX #### [facility] CLIA [id number] [address] [place] [address] [place] Platelet mean volume (Bld) [Entitic vol] 8.5 fL Low 9.0-12.7 [facility] Comment on above: Order Comment: Speci men Type: BLOOD SPECIMENOrdering Facility: [facility] Address: [address] [place] [address] Performed By: #### O BDX #### [facility] CLIA [id number] [address] [place] [address] [place] Platelets (Bld) [#/Vol] 257 10*3/uL Normal 150-400 [facility] Comment on above: Order Comment: Speci men Type: BLOOD SPECIMENOrdering Facility: [facility] Address: [address] [place] [address] Performed By: #### O BDX #### [facility] CLIA [id number] [address] [place] [address] [place] RBC (Bld) [#/Vol] 4.17 10*6/uL Low 4.20-6.00 [facility] Comment on above: Order Comment: Speci men Type: BLOOD SPECIMENOrdering Facility: [facility] Address: [address] [place] [address] Performed By: #### O BDX #### [facility] CLIA [id number] [address] [place] [address] [place] WBC (Bld) [#/Vol] 7.29 10*3/uL Normal 3.70-11.00 [facility] Comment on above: Order Comment: Speci men Type: BLOOD SPECIMENOrdering Facility: [facility] Address: [address] [place] [address] Performed By: #### O BDX #### [facility] CLIA [id number] [address] [place] CONSULT PROGon 02-10-2025 CONSULT PROG HNO ID: [id number] Author: CLAU AUSTIN [facility] Service: Pharmacy Author Type: Pharmacist Type: Consult [...] have any questions, please contact pharmacy at [phone]. Age: [age] year old Allergies: ALLERGIES Allergen [...] Value 09/16/2020 0422 16.[address] [facility] ED NOTEon 02-10-2025 ED NOTE HNO ID: [id number] Author: RENEE GALVAN RN Service: Nursing Author Type: Registered Nurse Type: ED Notes Filed: 02/10/2025 18:53 Note Text: The patient verbalizes understanding of discharge instructions. No additional questions or concerns at this time. Patient Vital signs stable, no acute distress noted. Patient wheelchair out of ED. Prescription(S) x [address] [facility] ED NOTE HNO ID: [id number] Author: RENEE GALVAN RN Service: Nursing Author Type: Registered Nurse Type: ED Notes Filed: 02/10/2025 18:52 Note Text: Bilateral lower legs dressed with kerlex and elastic wrap dressings. Patient tolerated application well. [facility] ED NOTE HNO ID: [id number] Author: RENEE GALVAN RN Service: Nursing Author Type: Registered Nurse Type: ED Notes Filed: 02/10/2025 15:15 Note Text: Redness and edema noted to both lower legs, right draining more than left. Home dressing removed. [facility] ED PROV NOTEon 02-10-2025 ED PROV NOTE HNO ID: [id number] Author: MARIA TERESA EGAN MD Service: Emergency [...] bleeding episodes/ falls Who is transferred from [facility] for the further evaluation of his dizziness [...] 02/12/2012 EGD ESOPHAGOGASTRODUODENOSCOPY TRANSORAL DIAGNOSTIC 03/27/2012 EGD [facility] inpt ESOPHAGOGASTRODUODENOSCOPY TRANSORAL DIAGNOSTIC 06/04/2012 EGD ESOPHAGOGASTRODUODENOSCOPY TRANSORAL DIAGNOSTIC N/A 11/13/2016 ESOPHAGOGASTRODUODENOSCOPY TRANSORAL DIAGNOSTIC 02/15/2018 EGD ESOPHAGOGASTRODUODENOSCOPY TRANSORAL DIAGNOST (more content not included)... Normal [facility] OCCULT BLD EXAM-DIAGon 02-10 OCCULT BLD EXAM-DIAG Negative Normal [facility] Comment on above: Performed By: #### O BDX #### [facility] CLIA [id number] [address] [place] PT panel Coag (PPP)on 2024 INR Coag (PPP) [Relative time] 2.0 {INR} High 0.9-1.3 [facility] Comment on above: Order Comment: Jordan arteaga Type: BLOOD SPECIMEN [facility] Address: [address] [place] [address] Result Comment: Christine min K Antagonist (VKA) Therapeutic Range: INR 2 to 3 (Target INR of 2.5) Note: For patients treated with VKA drugs, such as warfarin, the [place] [employer] 2012 Guideline recommends [...] Chest 2012, 141:7S-47S Alessandro RA et al. [facility] 2017, 70: 252-289 Performed By: #### 3 4528-0 #### [facility] CLIA [id number] [address] STATES OF [facility] PT Coag (PPP) [Time] 21.0 s High 9.7-13.0 [facility] Comment on above: Order Comment: Jordan arteaga Type: BLOOD SPECIMEN [facility] Address: [address] [place] [address] Performed By: #### 3 4528-0 #### [facility] CLIA [id number] [address] SEPSIS LACTATE W/ REFLEX (IN ITIAL)on 02-10-2025 Lactate [Moles/Vol] 1.4 mmol/L Normal 0.5-2.0 [facility] Comment on above: Order Comment: Speci men Type: BLOOD SPECIMENOrdering Facility: [facility] Address: [address] [place] [address] Performed By: #### O BDX #### [facility] CLIA [id number] [address] TYPE + SCREENon 02-10-2025 ABO A Normal [facility] Comment on above: Order Comment: Speci men Type: BLOOD SPECIMEN [facility] Address: [address] [place] [address] Performed By: #### T SCR #### [facility] CLIA [id number] [address] Rh Nom (Bld) Positive [facility] Comment on above: Order Comment: Speci men Type: BLOOD SPECIMEN [facility] Address: [address] [place] [address] Performed By: #### T SCR #### [facility] CLIA [id number] [address] TYPE AND SCREEN EXPIRATION 02/13/2025 23:59 Normal [facility] Comment on above: Order Comment: Speci men Type: BLOOD SPECIMEN [facility] Address: [address] [place] [address] Performed By: #### T SCR #### [facility] CLIA [id number] [address] Urinalysis complete panel (U )on 02-10-2025 Bacteria LM.HPF (Urine sed) [#/Area] None Seen Normal None Seen [facility] Comment on above: Order Comment: Speci men Type: URINE SPECIMENOrdering Facility: [facility] Address: [address] [place] [address] Performed By: #### O BDX #### [facility] CLIA [id number] [address] Bilirubin Ql (U) Negative Normal Negative [facility] Comment on above: Order Comment: Speci men Type: URINE SPECIMENOrdering Facility: [facility] Address: [address] [place] [address] Performed By: #### O BDX #### [facility] CLIA [id number] 1000 [place], [place] [id number] [place] [address] [place] Clarity (Unsp spec) Clear Normal Clear [facility] Comment on above: Order Comment: Speci men Type: URINE SPECIMENOrdering Facility: [facility] Address: [address] [place] [address] Performed By: #### O BDX #### [facility] CLIA [id number] [address] [place] Color (U) Yellow Normal Yellow [facility] Comment on above: Order Comment: Speci men Type: URINE SPECIMENOrdering Facility: [facility] Address: [address] [place] [address] Performed By: #### O BDX #### [facility] CLIA [id number] [address] Epithelial cells LM.HPF (Urine sed) [#/Area] Few Normal [facility] Comment on above: Order Comment: Speci men Type: URINE SPECIMENOrdering Facility: [facility] Address: [address] [place] [address] Performed By: #### O BDX #### [facility] CLIA [id number] [address] [place] Glucose Test strip (U) [Mass/Vol] Negative Normal Negative [facility] Comment on above: Order Comment: Speci men Type: URINE SPECIMENOrdering Facility: [facility] Address: [address] [place] [address] Performed By: #### O BDX #### [facility] CLIA [id number] [address] [place] Hemoglobin Ql (U) Negative Normal Negative [facility] Comment on above: Order Comment: Speci men Type: URINE SPECIMENOrdering Facility: [facility] Address: [address] [place] [address] Performed By: #### O BDX #### [facility] CLIA [id number] [address] [place] [address] [place] [facility] [place] Ketones Ql (U) Negative Normal Negative [facility] Comment on above: Order Comment: Speci men Type: URINE SPECIMENOrdering Facility: [facility] Address: [address] [place] [address] Performed By: #### O BDX #### [facility] CLIA [id number] [address] Leukocyte esterase Test strip Ql (U) Negative Normal Negative [facility] Comment on above: Order Comment: Speci men Type: URINE SPECIMENOrdering Facility: [facility] Address: [address] [place] [address] Performed By: #### O BDX #### [facility] CLIA [id number] [address] Nitrite Ql (U) Negative Normal Negative [facility] Comment on above: Order Comment: Speci men Type: URINE SPECIMENOrdering Facility: [facility] Address: [address] [place] [address] Performed By: #### O BDX #### [facility] CLIA [id number] [address] pH (U) 6.0 [pH] Normal 5.0-8.0 [facility] Comment on above: Order Comment: Speci men Type: URINE SPECIMENOrdering Facility: [facility] Address: [address] [place] [address] Performed By: #### O BDX #### [facility] CLIA [id number] [address] STATES [facility] Protein (U) [Mass/Vol] Trace Abnormal Negative [facility] Comment on above: Order Comment: Speci men Type: URINE SPECIMENOrdering Facility: [facility] Address: [address] [place] [address] Performed By: #### O BDX #### [facility] CLIA [id number] [address] [place] RBC LM.HPF (Urine sed) [#/Area] 0-3 /HPF Normal 0-3 /HPF [facility] Comment on above: Order Comment: Speci men Type: URINE SPECIMENOrdering Facility: [facility] Address: [address] [place] [address] Performed By: #### O BDX #### [facility] CLIA [id number] [address] Specific gravity (U) [Rel density] 1.020 Normal 1.005-1.030 [facility] Comment on above: Order Comment: Speci men Type: URINE SPECIMENOrdering Facility: [facility] Address: [address] [place] [address] Performed By: #### O BDX #### [facility] CLIA [id number] [address] Urobilinogen Ql (U) 0.2 EU/dL Normal 0.2-1.0 EU/dL [facility] Comment on above: Order Comment: Speci men Type: URINE SPECIMENOrdering Facility: [facility] Address: [address] [place] [address] Performed By: #### O BDX #### [facility] CLIA [id number] [address] WBC LM.HPF (Urine sed) [#/Area] 0-5 /HPF Normal 0-5 /HPF [facility] Comment on above: Order Comment: Speci men Type: URINE SPECIMENOrdering Facility: [facility] Address: [address] [place] [address] Performed By: #### O BDX #### [facility] CLIA [id number] [address] CBC W Auto Differential pane l (Bld)on 10-21-2024 Basophils (Bld) [#/Vol] 0.05 10*3/uL [facility] Basophils/100 WBC (Bld) 0.7 % [facility] Differential cell count method Nom (Bld) Auto [facility] Eosinophils (Bld) [#/Vol] 0.64 10*3/uL High [facility] Eosinophils/100 WBC (Bld) 9 % [facility] Erythrocyte distribution width (RBC) [Ratio] 14.2 % 11.5 - 15.0 % [facility] Hematocrit (Bld) [Volume fraction] 41.2 % 39.0 - 51.0 % [facility] Hemoglobin (Bld) [Mass/Vol] 12.9 g/dL Low 13.0 - 17.0 g/dL [facility] Immature granulocytes (Bld) [#/Vol] NINF [facility] Immature granulocytes/100 WBC (Bld) 0.3 % [facility] Interpretation and review of laboratory results Abnormal [facility] Lymphocytes (Bld) [#/Vol] 1.49 10*3/uL [facility] Lymphocytes/100 WBC (Bld) 21 % [facility] MCH (RBC) [Entitic mass] 29.8 pg 26.0 - 34.0 pg [facility] MCHC (RBC) [Mass/Vol] 31.3 g/dL 30.5 - 36.0 g/dL [facility] MCV (RBC) [Entitic vol] 95.2 fL 80.0 - 100.0 fL [facility] Monocytes (Bld) [#/Vol] 0.51 10*3/uL [facility] Monocytes/100 WBC (Bld) 7.2 % [facility] Neutrophils (Bld) [#/Vol] 4.38 10*3/uL [facility] Neutrophils/100 WBC (Bld) 61.8 % [facility] Nucleated RBC (Bld) [#/Vol] NINF [facility] Nucleated RBC/100 WBC (Bld) [Ratio] 0 % /100 WBC [facility] Platelet mean volume (Bld) [Entitic vol] 9.6 fL 9.0 - 12.7 fL [facility] Platelets (Bld) [#/Vol] 187 10*3/uL [facility] RBC (Bld) [#/Vol] 4.33 10*6/uL 4.20 - 6.0 0 m/uL [facility] WBC (Bld) [#/Vol] 7.09 10*3/uL [facility] metabolic 2000 panelon 10-21-2024 Albumin [Mass/Vol] 4.2 g/dL 3.9 - 4.9 g/dL [facility] ALP [Catalytic activity/Vol] 136 U/L High 38 - 113 U/L [facility] ALT [Catalytic activity/Vol] 24 U/L 10 - 54 U/L [facility] Anion gap [Moles/Vol] 10 mmol/L 8 - 15 mmol/L [facility] AST [Catalytic activity/Vol] 22 U/L 14 - 40 U/L [facility] Bilirubin [Mass/Vol] 0.3 mg/dL 0.2 - 1 .3 mg/dL [facility] Calcium [Mass/Vol] 9.3 mg/dL 8.5 - 10. 2 mg/dL [facility] Chloride [Moles/Vol] 109 mmol/L High 98 - 10 7 mmol/L [facility] CO2 [Moles/Vol] 22 mmol/L 22 - 30 mmol/L [facility] Creatinine [Mass/Vol] 0.94 mg/dL 0.73 - 1.22 mg/dL [facility] GFR/1.73 sq M.predicted among non-blacks MDRD (S/P/Bld) [Vol rate/Area] 87 mL/min/{1.73_m2} - PINF [facility] Comment on above: Estimated Glomerular Filtration [...] 101 mg/dL High 74 - 99 mg/dL [facility] Comment on above: The [place] Diabete s Association (ADA) provides guidance for [...] Standards of Medical Care in Diabetes 2016, [place] [employer] Association. Diabetes Care. 2016.39(Suppl 1). Interpretation and review of laboratory results Abnormal [facility] Potassium [Moles/Vol] 4.2 mmol/L 3.7 - 5.1 mmol/L [facility] Protein [Mass/Vol] 6.8 g/dL 6.3 - 8.0 g/dL [facility] Sodium [Moles/Vol] 141 mmol/L 136 - 144 mmol/L [facility] Urea nitrogen [Mass/Vol] 19 mg/dL 9 - 24 mg/dL [facility] HbA1c (Bld)on 10-21-2024 Average glucose Estimated from glycated hemoglobin (Bld) [Mass/Vol] 114 mg/dL [facility] Comment on above: eAG: (Estimated aver age glucose) is a calculated value from HgbA1c and is kiosk 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 of the average blood glucose level in the last 2-3 month period. HbA1c (Bld) [Mass fraction] 5.6 % 4.3 - 5.6 % [facility] Comment on above: [place] Diabetes As sociation guidelines indicate that patients with HgbA1c in the range 5.7-6.4% are at increased risk for development of diabetes, and intervention by lifestyle modification may be beneficial. HgbA1c greater or equal to 6.5% is considered diagnostic of diabetes. [facility] No Panel Informationon 10-21 [facility] Interpretation and review of laboratory results Normal [facility] PROLACTINon 10-21-2024 Prolactin [Mass/Vol] 12.6 ng/mL 4.1 - 2 5.1 ng/mL [facility] Comment on above: Prolactin test is pe rformed using the [employer] Electrochemiluminescence Immunoassay method. Results obtained with different methods or kits cannot be used interchangeably. PT panel Coag (PPP)on 2024 INR Coag (PPP) [Relative time] 2.3 {INR} High 0.9 - 1.3 [facility] Comment on above: Vitamin K Antagonist (VKA) Therapeutic Range: INR 2 to 3 (Target INR of 2.5) Note: For patients treated with VKA drugs, such as warfarin, the [place] [employer] 2012 Guideline recommends [...] Chest 2012, 141:7S-47S Alessandro RA, et al. [facility] 2017, 70: 252-289 Interpretation and review of laboratory results Abnormal [facility] PT Coag (PPP) [Time] 23.8 s High [facility] T4 FREE/FREE THYROXINEon Free T4 [Mass/Vol] 0.9 ng/dL 0.9 - 1.7 ng/dL [facility] THYROID STIMULATING HORMONEo n 10-21-2024 TSH Qn 4.54 m[IU]/L High [facility] TSH Qnon 10-21-2024 Interpretation and review of laboratory results Abnormal [facility] EGD Study observation Narrat iveon 09-30-2024 [facility] Gastrointestinal Endoscopy Patient Name: Eder Breen Procedure [...] internal he (more content not included)... [facility] Flexible sigmoidoscopy study on 09-30-2024 [facility] Gastrointestinal Endoscopy Patient Name: Eder Breen Procedure Date: 09/30/2024 12:20 PM Date of : 1955 Admit Type: Outpatient Age: 69 Gender: Male Note Status: Finalized Procedure: Upper GI endoscopy Indications: Heartburn Providers: aMrjan Tariq MD Patient Profile: Refer to note [...] first portio (more content not included)... [facility] No Panel Informationon 09-30 Radiology Study observation (narrative) [facility] Liver and Biliary ducts a nd Gallbladder Viewson 08-15-2024 IMPRESSION: 1. Non-visualized gallbladder during 2 hours of imaging. Findings are nonspecific and may be due to chronic cholecystitis or biliary dyskinesia. 2. Duodenogastric reflux. Hedis Coordinator: PSCB Transcribe Date/Time: Aug 15 2024 12:00P Dictated by : DANIEL DELEON MD This examination was interpreted and the report reviewed and electronically signed by: DANIEL DELEON MD on Aug 15 2024 12:07PM [facility] DIVISION OF RADIOLOGY * * *Final Report* * * DATE OF EXAM: Aug 15 2024 11:57AM [facility] 0022 - [place] HEPATOBILIARY WO RX / PROCEDURE REASON: multiple [...] Duodenal-gastric reflux present. DIVISION OF RADIOLOGY Provider, [facility] Giovana [place] - 08/15/2024 * * *Final Report* * [...] cholecystitis or biliary dyskinesia. 2. Duodenogastric reflux. Hedis Coordinator: GEORGES Transcribe Date/Time: Aug 15 2024 12:00P Dictated by : DANIEL DELEON MD This examination was interpreted and the report reviewed and electronically signed by: DANIEL DELEON MD on Aug 15 2024 12:07PM EST [facility] Radiology Study observation (narrative) [facility] [place] Liver and Biliary ducts a nd Gallbladder ViewsOrdered By: Ccf Provider on 08-15-2024 [facility] US DVT LOWER BILon US DVT [...] of the left and right lower extremities. Hedis Coordinator: GEORGES Transcribe Date/Time: Jun 11 2024 6:22P Dictated by : DHARMESH COLON MD This examination was interpreted and the report reviewed and electronically signed by: DHARMESH COLON MD on Jun 11 2024 6:24PM EST [id number] Normal [facility] US Lower extremity vein - bi lateralon 06-11-2024 IMPRESSION: Negative study for proximal DVT in the left and right lower extremities. Suboptimal evaluation to assess for calf DVT in the left and right lower extremities. Negative study for superficial thrombophlebitis in the imaged segments of the left and right lower extremities. Hedis Coordinator: GEORGES Transcribe Date/Time: Jun 11 2024 6:22P [...] not otherwise assessed. Small Saphenous: Not visualized. [facility] Provider, Shirley Giovana [facility] - 06/11/2024 * * *Final Report* * [...] of the left and right lower extremities. 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 Ordering physician: PIO MCCLELLAND Indication: Cardiac murmur Technologist: Madeline Martinez [facility] Interpreting physician: Gerardo Chavarria MD PATIENT: Name: [...] TRANSTHORACIC ECHOon LV Ejection Fraction 57 % [facility] Comment on above: (2D biplane) EF > 52 An LV Ejection Fraction of > 50% is normal No Panel Informationon 05-05 [facility] Discharge Instructionon 03-06 Discharge Instruction Normal [facility] MR/POSTOP.ANEon 03-21-2024 MR/POSTOP.ANE Normal [facility] MR/[id number] 03-21-2024 MR/POSTOPAN2 Normal [facility] Operative Reporton Operative Report Normal [facility] Protime w/INR Fingerstickon 03-21-2024 INR Coag (PPP) [Relative time] 1.7 {INR} Normal [facility] Comment on above: Result Comment: Dupl icate: Please see [id number] Critical Value > 4.0 Performed By: #### L 9200.0000 ####[facility] [address] [place], [place], [address] Result Comment: Crit ical Value > 4.0 Protime [place] 17.9 SEC High 11.7-14.9 [facility] Comment on above: Result Comment: Dupl icate: Please see [id number] Performed By: #### L [id number] ####[facility] [address] [place], [place], [address] Surgery Specimen Level Kristina 03-21-2024 Surgery Specimen Level IV Normal [facility] Comment on above: Performed By: #### P SUIV ####[facility] [address] [place], [place], [address] CBC W Auto Differential pane l (Bld)on 03-11-2024 Basophils (Bld) [#/Vol] [facility] Basophils/100 WBC (Bld) 0.3 % [facility] Differential cell count method Nom (Bld) Auto [facility] Eosinophils (Bld) [#/Vol] 0.04 10*3/uL [facility] Eosinophils/100 WBC (Bld) 0.6 % [facility] Erythrocyte distribution width (RBC) [Ratio] 12.9 % 11.5 - 15.0 % [facility] Hematocrit (Bld) [Volume fraction] 39.0 % 39.0 - 51.0 % [facility] Hemoglobin (Bld) [Mass/Vol] 12.7 g/dL Low 13.0 - 17.0 g/dL [facility] Immature granulocytes (Bld) [#/Vol] [facility] Immature granulocytes/100 WBC (Bld) 0.3 % [facility] Interpretation and review of laboratory results Abnormal [facility] Lymphocytes (Bld) [#/Vol] 1.28 10*3/uL [facility] Lymphocytes/100 WBC (Bld) 19.9 % [facility] MCH (RBC) [Entitic mass] 30.2 pg 26.0 - 34.0 pg [facility] MCHC (RBC) [Mass/Vol] 32.6 g/dL 30.5 - 36.0 g/dL [facility] MCV (RBC) [Entitic vol] 92.6 fL 80.0 - 100.0 fL [facility] Monocytes (Bld) [#/Vol] 0.40 10*3/uL [facility] Monocytes/100 WBC (Bld) 6.2 % [facility] Neutrophils (Bld) [#/Vol] 4.68 10*3/uL [facility] Neutrophils/100 WBC (Bld) 72.7 % [facility] Nucleated RBC (Bld) [#/Vol] [facility] Nucleated RBC/100 WBC (Bld) [Ratio] 0.0 % /100 WBC [facility] Platelet mean volume (Bld) [Entitic vol] 10.1 fL 9.0 - 12.7 fL [facility] Platelets (Bld) [#/Vol] 157 10*3/uL [facility] RBC (Bld) [#/Vol] 4.21 10*6/uL 4.20 - 6.0 0 m/uL [facility] WBC (Bld) [#/Vol] 6.44 10*3/uL [facility] HEMOGLOBIN A1C (POC)on 07-11 HbA1c (Bld) [Mass fraction] 5.5 % 4.2 - 5.6 % [facility] CBC W Auto Differential pane l (Bld)on 07-05-2023 Basophils (Bld) [#/Vol] 0.04 10*3/uL [facility] Basophils/100 WBC (Bld) 0.6 % [facility] Differential cell count method Nom (Bld) Auto [facility] Eosinophils (Bld) [#/Vol] 0.26 10*3/uL [facility] Eosinophils/100 WBC (Bld) 3.6 % [facility] Erythrocyte distribution width (RBC) [Ratio] 14.9 % 11.5 - 15.0 % [facility] Hematocrit (Bld) [Volume fraction] 40.3 % 39.0 - 51.0 % [facility] Hemoglobin (Bld) [Mass/Vol] 13.1 g/dL 13.0 - 17.0 g/dL [facility] Immature granulocytes (Bld) [#/Vol] NINF [facility] Immature granulocytes/100 WBC (Bld) 0.3 % [facility] Lymphocytes (Bld) [#/Vol] 1.49 10*3/uL [facility] Lymphocytes/100 WBC (Bld) 20.9 % [facility] MCH (RBC) [Entitic mass] 31.0 pg 26.0 - 34.0 pg [facility] MCHC (RBC) [Mass/Vol] 32.5 g/dL 30.5 - 36.0 g/dL [facility] MCV (RBC) [Entitic vol] 95.5 fL 80.0 - 100.0 fL [facility] Monocytes (Bld) [#/Vol] 0.68 10*3/uL [facility] Monocytes/100 WBC (Bld) 9.5 % [facility] Neutrophils (Bld) [#/Vol] 4.64 10*3/uL [facility] Neutrophils/100 WBC (Bld) 65.1 % [facility] Nucleated RBC (Bld) [#/Vol] [facility] Nucleated RBC/100 WBC (Bld) [Ratio] 0.0 % /100 WBC [facility] Platelet mean volume (Bld) [Entitic vol] 9.7 fL 9.0 - 12.7 fL [facility] Platelets (Bld) [#/Vol] 160 10*3/uL [facility] RBC (Bld) [#/Vol] 4.22 10*6/uL 4.20 - 6.0 0 m/uL [facility] WBC (Bld) [#/Vol] 7.13 10*3/uL [facility] Comprehensive metabolic 2000 panelon 07-05-2023 Albumin [Mass/Vol] 3.9 g/dL 3.9 - 4.9 g/dL [facility] ALP [Catalytic activity/Vol] 121 U/L High 38 - 113 U/L [facility] ALT [Catalytic activity/Vol] 25 U/L 10 - 54 U/L [facility] Anion gap [Moles/Vol] 7 mmol/L Low 9 - 18 mmol/L [facility] AST [Catalytic activity/Vol] 19 U/L 14 - 40 U/L [facility] Bilirubin [Mass/Vol] 0.2 mg/dL 0.2 - 1 .3 mg/dL [facility] Calcium [Mass/Vol] 8.6 mg/dL 8.5 - 10. 2 mg/dL [facility] Chloride [Moles/Vol] 109 mmol/L High 97 - 10 5 mmol/L [facility] CO2 [Moles/Vol] 22 mmol/L 22 - 30 mmol/L [facility] Creatinine [Mass/Vol] 0.87 mg/dL 0.73 - 1.22 mg/dL [facility] GFR/1.73 sq M.predicted among non-blacks MDRD (S/P/Bld) [Vol rate/Area] 93 mL/min/{1.73_m2} - PINF [facility] Comment on above: Estimated Glomerular Filtration [...] 70 mg/dL Low 74 - 99 mg/dL [facility] Comment on above: The [place] [employer] (ADA) provides guidance for [...] Standards of Medical Care in Diabetes 2016, [place] [employer]. Diabetes Care. 2016.39(Suppl 1). Interpretation and review of laboratory results Abnormal [facility] Potassium [Moles/Vol] 3.8 mmol/L 3.7 - 5.1 mmol/L [facility] Protein [Mass/Vol] 6.1 g/dL Low 6.3 - 8.0 g/dL [facility] Sodium [Moles/Vol] 138 mmol/L 136 - 144 mmol/L [facility] Urea nitrogen [Mass/Vol] 15 mg/dL 9 - 24 mg/dL [facility] No Panel Informationon 07-05 Interpretation and review of laboratory results Normal [facility] T3 FREE BLDon 07-05-2023 Free T3 [Mass/Vol] 3.0 pg/mL 2.3 - 4.1 pg/mL [facility] T4 FREE/FREE THYROXon 2022 Free T4 [Mass/Vol] 1.3 ng/dL 0.9 - 1.7 ng/dL [facility] TSH BLDon 07-05-2023 TSH Qn 1.800 m[IU]/L [facility] PT panel Coag (PPP)on 2022 INR Coag (PPP) [Relative time] 1.2 {INR} 0.9 - 1.3 [facility] PT Coag (PPP) [Time] 11.9 s 9.7 - 1 3.0 sec [facility] No Panel Informationon 02-13 Radiology Study observation (narrative) [facility] XR Ankle - right AP and Late ral and obliqueon 02-13-2023 IMPRESSION: Findings as described above. Hedis Coordinator: PSCB Transcribe Date/Time: Feb 13 2023 12:55P Dictated by : LASHANDA CANAS MD This examination was interpreted and the report reviewed and electronically signed by: LASHANDA CANAS MD on Feb 13 2023 1:01PM [facility] DIVISION OF RADIOLOGY * * *Final Report* [...] swelling. DIVISION OF RADIOLOGY Provider, Shirley Giovana [facility] - 02/13/2023 * * *Final Report* * [...] swelling. IMPRESSION IMPRESSION: Findings as described above. Hedis Coordinator: [facility] Transcribe Date/Time: Feb 13 2023 12:55P Dictated by : LASHANDA CANAS MD This examination was interpreted and the report reviewed and electronically signed by: LASHANDA CANAS MD on Feb 13 2023 1:01PM [facility] XR Knee - right 4 Viewson IMPRESSION: Findings are suggestive of degenerative changes in the right knee. Hedis Coordinator: EVY Transcribe Date/Time: Feb 13 2023 1:01P Dictated by : LASHANDA CANAS MD This examination was interpreted and the report reviewed and electronically signed by: LASHANDA CANAS MD on Feb 13 2023 1:16PM [facility] DIVISION OF RADIOLOGY * * *Final Report* [...] swelling. DIVISION OF RADIOLOGY Provider, Porter Akhtar [facility] - 02/13/2023 * * *Final Report* * [...] of degenerative changes in the right knee. Hedis Coordinator: GEORGES Transcribe Date/Time: Feb 13 2023 1:01P Dictated by : LASHANDA CANAS MD This examination was interpreted and the report reviewed and electronically signed by: LASHANDA CANAS MD on Feb 13 2023 1:16PM EST [facility] XR Knee - right 4 ViewsOrder ed By: [facility] Provider on 02-13-2023 [facility] PSA/PROSTSPECAG SCRNon 11-28 Prostate specific Ag [Mass/Vol] 0.04 ng/mL <2.60 ng/mL [facility] CBC W Auto Differential pane l (Bld)on 11-27-2022 Basophils (Bld) [#/Vol] 0.04 10*3/uL <0.11 k/uL [facility] Basophils/100 WBC (Bld) 0.5 % [facility] Differential cell count method Nom (Bld) Auto [facility] Eosinophils (Bld) [#/Vol] 0.29 10*3/uL <0.46 k/uL [facility] Eosinophils/100 WBC (Bld) 3.4 % [facility] Erythrocyte distribution width (RBC) [Ratio] 14.4 % 11.5 - 15.0 % [facility] Hematocrit (Bld) [Volume fraction] 42.8 % 39.0 - 51.0 % [facility] Hemoglobin (Bld) [Mass/Vol] 13.9 g/dL 13.0 - 17.0 g/dL [facility] Immature granulocytes (Bld) [#/Vol] 0.03 10*3/uL <0.10 k/uL [facility] Immature granulocytes/100 WBC (Bld) 0.4 % [facility] Lymphocytes (Bld) [#/Vol] 1.55 10*3/uL 1.00 - 4.00 k/uL [facility] Lymphocytes/100 WBC (Bld) 18.3 % [facility] MCH (RBC) [Entitic mass] 30.2 pg 26.0 - 34.0 pg [facility] MCHC (RBC) [Mass/Vol] 32.5 g/dL 30.5 - 36.0 g/dL [facility] MCV (RBC) [Entitic vol] 92.8 fL 80.0 - 100.0 fL [facility] Monocytes (Bld) [#/Vol] 0.53 10*3/uL <0.87 k/uL [facility] Monocytes/100 WBC (Bld) 6.3 % [facility] Neutrophils (Bld) [#/Vol] 6.01 10*3/uL 1.45 - 7.50 k/uL [facility] Neutrophils/100 WBC (Bld) 71.1 % [facility] Nucleated RBC (Bld) [#/Vol] <0.01 k/uL [facility] Nucleated RBC/100 WBC (Bld) [Ratio] 0.0 /100 WBC [facility] Platelet mean volume (Bld) [Entitic vol] 9.5 fL 9.0 - 12.7 fL [facility] Platelets (Bld) [#/Vol] 171 10*3/uL 150 - 400 k/uL [facility] RBC (Bld) [#/Vol] 4.61 10*6/uL 4.20 - 6.0 0 m/uL [facility] WBC (Bld) [#/Vol] 8.45 10*3/uL 3.70 - 11.00 k/uL [facility] PT panel Coag (PPP)on 2022 INR Coag (PPP) [Relative time] 1.0 {INR} 0.9 - 1.3 [facility] PT Coag (PPP) [Time] 10.5 s 9.7 - 1 3.0 sec [facility] BREATH TEST GLUCOSEon 2022 [facility] Comprehensive metabolic 2000 panelon 05-23-2022 Albumin [Mass/Vol] 4.5 g/dL 3.9 - 4.9 g/dL [facility] ALP [Catalytic activity/Vol] 116 U/L High 38 - 113 U/L [facility] ALT [Catalytic activity/Vol] 19 U/L 10 - 54 U/L [facility] Anion gap [Moles/Vol] 11 mmol/L 9 - 18 mmol/L [facility] AST [Catalytic activity/Vol] 18 U/L 14 - 40 U/L [facility] Bilirubin [Mass/Vol] 0.2 mg/dL 0.2 - 1 .3 mg/dL [facility] Calcium [Mass/Vol] 10.4 mg/dL High 8.5 - 10. 2 mg/dL [facility] Chloride [Moles/Vol] 108 mmol/L High 97 - 10 5 mmol/L [facility] CO2 [Moles/Vol] 23 mmol/L 22 - 30 mmol/L [facility] Creatinine [Mass/Vol] 0.98 mg/dL 0.73 - 1.22 mg/dL [facility] Estimated Glomerular Filtration Rate 84 mL/min/1.73m >=60 mL/min/1.73 m [facility] Glucose [Mass/Vol] 81 mg/dL 74 - 99 mg/dL [facility] Potassium [Moles/Vol] 4.0 mmol/L 3.7 - 5.1 mmol/L [facility] Protein [Mass/Vol] 6.5 g/dL 6.3 - 8.0 g/dL [facility] Sodium [Moles/Vol] 142 mmol/L 136 - 144 mmol/L [facility] Urea nitrogen [Mass/Vol] 15 mg/dL 9 - 24 mg/dL [facility] T3 FREE BLDon 05-23-2022 Free T3 [Mass/Vol] 2.8 pg/mL 2.3 - 4.1 pg/mL [facility] T4 FREE/FREE THYROXon 2021 Free T4 [Mass/Vol] 1.2 ng/dL 0.9 - 1.7 ng/dL [facility] TSH BLDon 05-23-2022 TSH Qn 1.030 m[IU]/L 0.270 - 4.200 mIU/L [facility] VITAMIN B12 BLOODon 05-23-20 Cobalamin (Vitamin B12) [Mass/Vol] 314 pg/mL 232 - 1,245 pg/mL [facility] CBC W Auto Differential pane l (Bld)on 05-22-2022 Basophils (Bld) [#/Vol] 0.03 10*3/uL <0.11 k/uL [facility] Basophils/100 WBC (Bld) 0.4 % [facility] Differential cell count method Nom (Bld) Auto [facility] Eosinophils (Bld) [#/Vol] 0.36 10*3/uL <0.46 k/uL [facility] Eosinophils/100 WBC (Bld) 5.0 % [facility] Erythrocyte distribution width (RBC) [Ratio] 15.0 % 11.5 - 15.0 % [facility] Hematocrit (Bld) [Volume fraction] 40.4 % 39.0 - 51.0 % [facility] Hemoglobin (Bld) [Mass/Vol] 12.7 g/dL Low 13.0 - 17.0 g/dL [facility] Immature granulocytes (Bld) [#/Vol] 0.03 10*3/uL <0.10 k/uL [facility] Immature granulocytes/100 WBC (Bld) 0.4 % [facility] Lymphocytes (Bld) [#/Vol] 1.17 10*3/uL 1.00 - 4.00 k/uL [facility] Lymphocytes/100 WBC (Bld) 16.3 % [facility] MCH (RBC) [Entitic mass] 29.8 pg 26.0 - 34.0 pg [facility] MCHC (RBC) [Mass/Vol] 31.4 g/dL 30.5 - 36.0 g/dL [facility] MCV (RBC) [Entitic vol] 94.8 fL 80.0 - 100.0 fL [facility] Monocytes (Bld) [#/Vol] 0.43 10*3/uL <0.87 k/uL [facility] Monocytes/100 WBC (Bld) 6.0 % [facility] Neutrophils (Bld) [#/Vol] 5.16 10*3/uL 1.45 - 7.50 k/uL [facility] Neutrophils/100 WBC (Bld) 71.9 % [facility] Nucleated RBC (Bld) [#/Vol] <0.01 k/uL [facility] Nucleated RBC/100 WBC (Bld) [Ratio] 0.0 /100 WBC [facility] Platelet mean volume (Bld) [Entitic vol] 10.1 fL 9.0 - 12.7 fL [facility] Platelets (Bld) [#/Vol] 128 10*3/uL Low 150 - 400 k/uL [facility] RBC (Bld) [#/Vol] 4.26 10*6/uL 4.20 - 6.0 0 m/uL [facility] WBC (Bld) [#/Vol] 7.18 10*3/uL 3.70 - 11.00 k/uL [facility] H. pylori IgG IA Qlon 2021 H. pylori IgG, Qualitative Negative Negative [facility] LACOSAMIDEon 11-11-2021 Desmethyllacosamide 0.9 ug/mL <2.6 ug/mL [facility] Lacosamide [Mass/Vol] 11.4 ug/mL 2.2 - 19.8 ug/mL [facility] LAMOTRIGINEon 11-11-2021 lamoTRIgine [Mass/Vol] 5.9 ug/mL 1.0 - 13.0 ug/mL [facility] ZONISAMIDEon 11-11-2021 Zonisamide [Mass/Vol] 20.3 ug/mL 10.0 - 40.0 ug/mL [facility] XR Chest PA and Lateralon Radiology Study observation (narrative) [facility] IMPRESSION: No acute radiographic abnormality. Hedis Coordinator: PSCB Transcribe Date/Time: Aug 08 2021 11:13A Dictated by : NASREEN FARLEY DO This examination was interpreted and the report reviewed and electronically signed by: NASREEN FARLEY DO on Aug 08 2021 11:16AM [facility] DIVISION OF RADIOLOGY * * *Final Report* [...] soft tissues: Unremarkable. DIVISION OF RADIOLOGY Provider, [facility] - 08/08/2021 * * *Final Report* [...] Unremarkable. IMPRESSION IMPRESSION: No acute radiographic abnormality. Hedis Coordinator: GEORGES Transcribe Date/Time: Aug 08 2021 11:13A Dictated by : NASREEN FARLEY DO This examination was interpreted and the report reviewed and electronically signed by: NASREEN FARLEY DO on Aug 08 2021 11:16AM EST [facility] XR Chest PA and LateralOrder ed By: [facility] Provider on 08-08-2021 [facility] XR Chest PA and Lateralon IMPRESSION: No acute radiographic abnormality. Hedis Coordinator: GEORGES Transcribe Date/Time: Dec 03 2020 11:40A Dictated by : KENYA LU MD This examination was interpreted and the report reviewed and electronically signed by: KENYA LU MD on Dec 03 2020 11:41AM [facility] DIVISION OF RADIOLOGY * * *Final Report* [...] the dorsal spine DIVISION OF RADIOLOGY Provider, [facility] - 12/03/2020 * * *Final Report* [...] spine IMPRESSION IMPRESSION: No acute radiographic abnormality. Hedis Coordinator: GEORGES Transcribe Date/Time: Dec 03 2020 11:40A Dictated by : KENYA LU MD This examination was interpreted and the report reviewed and electronically signed by: KENYA LU MD on Dec 03 2020 11:41AM EST [facility] Radiology Study observation (narrative) [facility] XR Chest PA and LateralOrder ed By: [facility] Provider on 12-03-2020 [facility] XR Shoulder - right 3 Viewso n 10-25-2020 IMPRESSION: Glenohumeral and acromioclavicular osteoarthrosis. Hedis Coordinator: GEORGES Transcribe Date/Time: Oct 25 2020 11:43A [...] or dislocation. DIVISION OF RADIOLOGY Provider, Porter [facility] - 10/25/2020 * * *Final Report* * [...] dislocation. IMPRESSION IMPRESSION: Glenohumeral and acromioclavicular osteoarthrosis. Hedis Coordinator: GEORGES Transcribe Date/Time: Oct 25 2020 11:43A Dictated by : VERNELL MATA MD This examination was interpreted and the report reviewed and electronically signed by: VERNELL MATA MD on Oct 25 2020 11:44AM EST [facility] Radiology Study observation (narrative) [facility] XR Shoulder - right 3 ViewsO rdered By: [facility] Provider on 10-25-2020 [facility] Vital Signs Date Time Vital Sign Value Performing Clinician Faci arun 03-18-2025 12:53-0400 Body mass index (BMI) [Ratio] 36.32 kg/m2 Paulie Geronimo APRN.CORPORATE DEVELOPMENT OFFICER Work Phone: [facility] 03-18-2025 12:53-0400 Body weight 121.47 kg Paulie Geronimo APRN.CORPORATE DEVELOPMENT OFFICER Work Phone: [facility] 03-18-2025 12:53-0400 Diastolic blood pressure 64 mm[Hg] Paulie Bhaktao MARKETING TEAM LEAD.CORPORATE DEVELOPMENT OFFICER Work Phone: [facility] 03-18-2025 12:53-0400 Heart rate 71 /min Paulie Geronimo APRN.CORPORATE DEVELOPMENT OFFICER Work Phone: [facility] 03-18-2025 12:53-0400 Respiratory rate 16 /min Paulie Geronimo APRN.CORPORATE DEVELOPMENT OFFICER Work Phone: [facility] 03-18-2025 12:53-0400 SaO2% (BldA) [Mass fraction] 92 % Pauliemonserrat Bhaktao MARKETING TEAM LEAD.CORPORATE DEVELOPMENT OFFICER Work Phone: [facility] 03-18-2025 12:53-0400 Systolic blood pressure 130 mm[Hg] Paulie Bhaktao MARKETING TEAM LEAD.CORPORATE DEVELOPMENT OFFICER Work Phone: [facility] 03-12-2025 11:51-0400 Body temperature 98.4 [degF] Dr. Hari Oneill DO Work Phone: 5(485)848-377843 [place] [address] 03-12-2025 11:51-0400 Diastolic blood pressure 76 mm[Hg] Dr. Hari Oneill DO Work Phone: 9(802)190-267917 [place] [address] 03-12-2025 11:51-0400 Heart rate 86 /min Dr. Hari Oneill DO Work Phone: 0(607)080-968017 [place] [address] 03-12-2025 11:51-0400 Respiratory rate 18 /min Dr. Hari Oneill DO Work Phone: 9(345)717-406217 [place] [address] 03-12-2025 11:51-0400 SaO2% (BldA) [Mass fraction] 99 % Dr. Hari Oneill DO Work Phone: 1(860)676-932517 [place] [address] 03-12-2025 11:51-0400 Systolic blood pressure 104 mm[Hg] Dr. Hari Oneill DO Work Phone: 1(526)700-260717 [place] [address] 03-12-2025 03:53-0400 Body mass index (BMI) [Ratio] 35.8 kg/m2 Dr. Hari Oneill DO Work Phone: 5(317)440-010617 [place] [address] 03-12-2025 03:53-0400 Body weight [address] Hari Oneill DO Work Phone: 2(812)084-680517 [place] [address] 03-11-2025 15:23-0400 Body height 182.[address] Hari Oneill DO Work Phone: 5(893)467-555317 [place] [address] 03-05-2025 15:38-0400 Body temperature 98.1 [degF] Dr. Hari Oneill DO Work Phone: 1(195)846-215817 [place] [address] 03-05-2025 15:38-0400 Diastolic blood pressure 68 mm[Hg] Dr. Hari Oneill DO Work Phone: 9(139)514-753317 [place] [address] 03-05-2025 15:38-0400 Heart rate 71 /min Dr. Hari Oneill DO Work Phone: 6(412)205-276617 [place] [address] 03-05-2025 15:38-0400 Respiratory rate 18 /min Dr. Hari Oneill DO Work Phone: [facility] 03-05-2025 15:38-0400 SaO2% (BldA) [Mass fraction] 100 % Dr. Hari Oneill DO Work Phone: [facility] 03-05-2025 15:38-0400 Systolic blood pressure 150 mm[Hg] Dr. Hari Oneill DO Work Phone: 6(373)817-596917 [place] [address] 03-05-2025 11:42-0400 Body height 182.[address] Hari Oneill DO Work Phone: 6(348)215-807317 [place] [address] 03-05-2025 11:42-0400 Body mass index (BMI) [Ratio] 41 kg/m2 Dr. Hari Oneill DO Work Phone: 8(948)867-030117 [place] [address] 03-05-2025 11:42-0400 Body weight 137.[address] Hrai Oneill DO Work Phone: 8(781)347-560043 [place] [address] 03-04-2025 14:01-0400 Body height 182.9 cm Beatriz Moncada MD Work Phone: [facility] 03-04-2025 14:01-0400 Body mass index (BMI) [Ratio] 37.84 kg/m2 Beatriz Moncada MD Work Phone: [facility] 03-04-2025 14:01-0400 Body weight 126.55 kg Beatriz Moncada MD Work Phone: [facility] 03-04-2025 14:01-0400 Diastolic blood pressure 66 mm[Hg] Beatriz Moncada MD Work Phone: [facility] 03-04-2025 14:01-0400 Heart rate 75 /min Beatriz Moncada MD Work Phone: [facility] 03-04-2025 14:01-0400 SaO2% (BldA) [Mass fraction] 99 % Beatriz Moncada MD Work Phone: [facility] 03-04-2025 14:01-0400 Systolic blood pressure 118 mm[Hg] Beatriz Moncada MD Work Phone: 1(325)400-522530 [place] [address] 03-02-2025 13:42-0400 Body temperature 99.1 [degF] Dr. Hari Oneill DO Work Phone: 9(113)271-611817 [place] [address] 03-02-2025 13:42-0400 Diastolic blood pressure 58 mm[Hg] Dr. Hari Oneill DO Work Phone: 4(765)007-453517 [place] [address] 03-02-2025 13:42-0400 Heart rate 90 /min Dr. Hari Oneill DO Work Phone: 6(637)045-870917 [place] [address] 03-02-2025 13:42-0400 Respiratory rate 14 /min Dr. Hari Oneill DO Work Phone: 8(954)284-301417 [place] [address] 03-02-2025 13:42-0400 SaO2% (BldA) [Mass fraction] 98 % Dr. Hari Oneill DO Work Phone: 3(767)020-691517 [place] [address] 03-02-2025 13:42-0400 Systolic blood pressure 144 mm[Hg] Dr. Hari Oneill DO Work Phone: 3(756)207-685017 [place] [address] 03-02-2025 03:50-0400 Body mass index (BMI) [Ratio] 38.9 kg/m2 Dr. Hari Oneill DO Work Phone: 8(238)767-773517 [place] [address] 03-02-2025 03:50-0400 Body weight 130.[address] Hari Oneill DO Work Phone: 1(317)446-629717 [place] [address] 02-27-2025 16:05-0400 Body height 182.[address] Hari Oneill DO Work Phone: 2(684)239-053717 [place] [address] 02-27-2025 15:16-0400 Body temperature 97.3 [degF] Dr. Hari Oneill DO Work Phone: 1(486)077-788217 [place] [address] 02-27-2025 15:16-0400 Diastolic blood pressure 72 mm[Hg] Dr. Hari Oneill DO Work Phone: 8(379)030-107617 [place] [address] 02-27-2025 15:16-0400 Heart rate 70 /min Dr. Hari Oneill DO Work Phone: [facility] 02-27-2025 15:16-0400 Respiratory rate 17 /min Dr. Hari Oneill DO Work Phone: [facility] 02-27-2025 15:16-0400 SaO2% (BldA) [Mass fraction] 98 % Dr. Hari Oneill DO Work Phone: [facility] 02-27-2025 15:16-0400 Systolic blood pressure 148 mm[Hg] Dr. Hari Oneill DO Work Phone: [facility] 02-27-2025 09:56-0400 Body height 182.[address] Hari Oneill DO Work Phone: [facility] 02-27-2025 09:56-0400 Body mass index (BMI) [Ratio] 39.8 kg/m2 Dr. Hari Oneill DO Work Phone: [facility] 02-27-2025 09:56-0400 Body weight 133.[address] Hari Oneill DO Work Phone: [facility] 02-09-2025 13:51-0400 Body mass index (BMI) [Ratio] 39.56 kg/m2 Renee Rose PA-C Work Phone: [facility] 02-09-2025 13:51-0400 Body temperature 98.91 [degF] Renee Rose PA-C Work Phone: [facility] 02-09-2025 13:51-0400 Body weight 132.3 kg Renee Rose PA-C Work Phone: [facility] 02-09-2025 13:51-0400 Diastolic blood pressure 82 mm[Hg] Renee Rose PA-C Work Phone: [facility] 02-09-2025 13:51-0400 Heart rate 82 /min Renee Rose PA-C Work Phone: [facility] 02-09-2025 13:51-0400 Respiratory rate 20 /min Renee CISNEROS-C Work Phone: [facility] 02-09-2025 13:51-0400 SaO2% (BldA) [Mass fraction] 97 % Renee Rose PA-C Work Phone: [facility] 02-09-2025 13:51-0400 Systolic blood pressure 130 mm[Hg] Renee Rose PA-C Work Phone: [facility] 10-21-2024 08:46-0400 Body mass index (BMI) [Ratio] 39.33 kg/m2 Hari Oneill DO Work Phone: [facility] 10-21-2024 08:46-0400 Body temperature 97 [degF] Hari Oneill DO Work Phone: [facility] 10-21-2024 08:46-0400 Body weight 131.54 kg Hari Oneill DO Work Phone: [facility] 10-21-2024 08:46-0400 Diastolic blood pressure 70 mm[Hg] Hari Oneill DO Work Phone: [facility] 10-21-2024 08:46-0400 Heart rate 80 /min Hari Oneill DO Work Phone: [facility] 10-21-2024 08:46-0400 Respiratory rate 16 /min Hari Oneill DO Work Phone: [facility] 10-21-2024 08:46-0400 Systolic blood pressure 130 mm[Hg] Hari Oneill DO Work Phone: [facility] 09-30-2024 13:40-0500 Diastolic blood pressure 71 mm[Hg] Marjan Tariq MD Work Phone: [facility] 09-30-2024 13:40-0500 Heart rate 73 /min Marjan Tariq MD Work Phone: [facility] 09-30-2024 13:40-0500 Respiratory rate 18 /min Marjan Tariq MD Work Phone: [facility] 09-30-2024 13:40-0500 SaO2% (BldA) [Mass fraction] 99 % Marjan Tariq MD Work Phone: [facility] 09-30-2024 13:40-0500 Systolic blood pressure 143 mm[Hg] Marjan Tariq MD Work Phone: [facility] 09-30-2024 11:50-0500 Body mass index (BMI) [Ratio] 38.51 kg/m2 Marjan Tariq MD Work Phone: [facility] 09-30-2024 11:50-0500 Body temperature 97.2 [degF] Marjan Tariq MD Work Phone: [facility] 09-30-2024 11:50-0500 Body weight 128.8 kg Marjan Tariq MD Work Phone: [facility] 09-02-2024 10:51-0500 Diastolic blood pressure 71 mm[Hg] Eyad Novoa DO Work Phone: [facility] 09-02-2024 10:51-0500 Heart rate 77 /min Eyad Novoa DO Work Phone: [facility] 09-02-2024 10:51-0500 SaO2% (BldA) [Mass fraction] 98 % Eyad Novoa DO Work Phone: [facility] 09-02-2024 10:51-0500 Systolic blood pressure 147 mm[Hg] Eyad Novoa DO Work Phone: [facility] 08-29-2024 10:49-0500 Body mass index (BMI) [Ratio] 38.52 kg/m2 Jayesh Hernandez MD Work Phone: [facility] 08-29-2024 10:49-0500 Body weight 128.82 kg Jayesh Hernandez MD Work Phone: [facility] 08-29-2024 10:49-0500 Diastolic blood pressure 77 mm[Hg] Jayesh Hernandez MD Work Phone: [facility] 08-29-2024 10:49-0500 Heart rate 77 /min Jayesh Hernandez MD Work Phone: [facility] 08-29-2024 10:49-0500 SaO2% (BldA) [Mass fraction] 100 % Jayesh Hernandez MD Work Phone: [facility] 08-29-2024 10:49-0500 Systolic blood pressure 144 mm[Hg] Jayesh Hernandez MD Work Phone: [facility] 08-18-2024 13:48-0500 Body height 182.9 cm Audra Romanrebecca ANSARI [facility] 08-18-2024 13:48-0500 Body mass index (BMI) [Ratio] 38.19 kg/m2 Audra Chauhan ELAN [facility] 08-18-2024 13:48-0500 Body weight 127.[address] [facility] 07-24-2024 11:04-0500 Body mass index (BMI) [Ratio] 39.33 kg/m2 Suyapa Soraya MARKETING TEAM LEAD.CORPORATE DEVELOPMENT OFFICER Work Phone: [facility] 07-24-2024 11:04-0500 Body weight 131.54 kg Suyapa Soraya MARKETING TEAM LEAD.CORPORATE DEVELOPMENT OFFICER Work Phone: [facility] 07-24-2024 11:04-0500 Diastolic blood pressure 78 mm[Hg] Suyapa Soraya MARKETING TEAM LEAD.CORPORATE DEVELOPMENT OFFICER Work Phone: [facility] 07-24-2024 11:04-0500 Heart rate 89 /min Suyapa Soraya MARKETING TEAM LEAD.CORPORATE DEVELOPMENT OFFICER Work Phone: [facility] 07-24-2024 11:04-0500 Respiratory rate 16 /min Suyapa Soraya MARKETING TEAM LEAD.CORPORATE DEVELOPMENT OFFICER Work Phone: [facility] 07-24-2024 11:04-0500 SaO2% (BldA) [Mass fraction] 100 % Suyapa Soraya MARKETING TEAM LEAD.CORPORATE DEVELOPMENT OFFICER Work Phone: [facility] 07-24-2024 11:04-0500 Systolic blood pressure 130 mm[Hg] Suyapa Soraya MARKETING TEAM LEAD.CORPORATE DEVELOPMENT OFFICER Work Phone: [facility] 06-10-2024 14:41-0500 Body mass index (BMI) [Ratio] 37.11 kg/m2 Suyapa Soraya MARKETING TEAM LEAD.CORPORATE DEVELOPMENT OFFICER Work Phone: [facility] 06-10-2024 14:41-0500 Body temperature 97.39 [degF] Suyapa Soraya MARKETING TEAM LEAD.CORPORATE DEVELOPMENT OFFICER Work Phone: [facility] 06-10-2024 14:41-0500 Body weight 124.1 kg Suyapa Soraya MARKETING TEAM LEAD.CORPORATE DEVELOPMENT OFFICER Work Phone: [facility] 06-10-2024 14:41-0500 Diastolic blood pressure 82 mm[Hg] Suyapa Soraya MARKETING TEAM LEAD.CORPORATE DEVELOPMENT OFFICER Work Phone: [facility] 06-10-2024 14:41-0500 Heart rate 61 /min Suyapa Soraya MARKETING TEAM LEAD.CORPORATE DEVELOPMENT OFFICER Work Phone: [facility] 06-10-2024 14:41-0500 SaO2% (BldA) [Mass fraction] 99 % Suyapa Soraya MARKETING TEAM LEAD.CORPORATE DEVELOPMENT OFFICER Work Phone: [facility] 06-10-2024 14:41-0500 Systolic blood pressure 126 mm[Hg] Suyapa Soraya MARKETING TEAM LEAD.CORPORATE DEVELOPMENT OFFICER Work Phone: [facility] 05-29-2024 13:02-0400 Body mass index (BMI) [Ratio] 38.27 kg/m2 Skyler Adams MARKETING TEAM LEAD.JOURNEYMAN CARPENTER Work Phone: [facility] 05-29-2024 13:02-0400 Body weight 128 kg Skyler Adams MARKETING TEAM LEAD.JOURNEYMAN CARPENTER Work Phone: [facility] 05-29-2024 13:02-0400 Diastolic blood pressure 72 mm[Hg] Skyler Adams MARKETING TEAM LEAD.JOURNEYMAN CARPENTER Work Phone: [facility] 05-29-2024 13:02-0400 Heart rate 77 /min Skyler Adams MARKETING TEAM LEAD.JOURNEYMAN CARPENTER Work Phone: [facility] 05-29-2024 13:02-0400 Systolic blood pressure 137 mm[Hg] Skyler Adams MARKETING TEAM LEAD.JOURNEYMAN CARPENTER Work Phone: [facility] 05-20-2024 09:21-0400 Body mass index (BMI) [Ratio] 38.21 kg/m2 Skyler Adams MARKETING TEAM LEAD.JOURNEYMAN CARPENTER Work Phone: [facility] 05-20-2024 09:21-0400 Body weight 127.8 kg Skyler Adams MARKETING TEAM LEAD.JOURNEYMAN CARPENTER Work Phone: [facility] 05-20-2024 09:21-0400 Diastolic blood pressure 80 mm[Hg] Skyler Adams MARKETING TEAM LEAD.JOURNEYMAN CARPENTER Work Phone: [facility] 05-20-2024 09:21-0400 Heart rate 90 /min Skyler Adams MARKETING TEAM LEAD.JOURNEYMAN CARPENTER Work Phone: [facility] 05-20-2024 09:21-0400 Respiratory rate 16 /min Skyler Adams MARKETING TEAM LEAD.JOURNEYMAN CARPENTER Work Phone: [facility] 05-20-2024 09:21-0400 Systolic blood pressure 128 mm[Hg] Skyler Adams MARKETING TEAM LEAD.JOURNEYMAN CARPENTER Work Phone: [facility] 05-20-2024 08:31-0400 Body mass index (BMI) [Ratio] 38.39 kg/m2 Gerardo Pendlebury MARKETING TEAM LEAD.CORPORATE DEVELOPMENT OFFICER Work Phone: [facility] 05-20-2024 08:31-0400 Body temperature 97.7 [degF] Gearrdo Shadebury MARKETING TEAM LEAD.CORPORATE DEVELOPMENT OFFICER Work Phone: [facility] 05-20-2024 08:31-0400 Body weight 128.4 kg [facility] MARKETING TEAM LEAD.CORPORATE DEVELOPMENT OFFICER Work Phone: [facility] 05-20-2024 08:31-0400 Diastolic blood pressure 80 mm[Hg] Gerardo Pendlebury MARKETING TEAM LEAD.CORPORATE DEVELOPMENT OFFICER Work Phone: [facility] 05-20-2024 08:31-0400 Heart rate 90 /min Gerardo Pendlebury MARKETING TEAM LEAD.CORPORATE DEVELOPMENT OFFICER Work Phone: [facility] 05-20-2024 08:31-0400 Respiratory rate 16 /min Gerardo Greenwood MARKETING TEAM LEAD.CORPORATE DEVELOPMENT OFFICER Work Phone: [facility] 05-20-2024 08:31-0400 SaO2% (BldA) [Mass fraction] 97 % Gerardo Greenwood MARKETING TEAM LEAD.CORPORATE DEVELOPMENT OFFICER Work Phone: [facility] 05-20-2024 08:31-0400 Systolic blood pressure 128 mm[Hg] Gerardo Greenwood MARKETING TEAM LEAD.CORPORATE DEVELOPMENT OFFICER Work Phone: [facility] 05-14-2024 12:56-0400 Body height 182.9 cm Xavi Xie MD Work Phone: [facility] 05-14-2024 12:56-0400 Body mass index (BMI) [Ratio] 37.84 kg/m2 Xavi Xie MD Work Phone: [facility] 05-14-2024 12:56-0400 Body weight 126.55 kg Xavi Xie MD Work Phone: [facility] 05-14-2024 12:56-0400 Diastolic blood pressure 82 mm[Hg] Xavi Xie MD Work Phone: [facility] 05-14-2024 12:56-0400 Heart rate 79 /min Xavi Xie MD Work Phone: [facility] 05-14-2024 12:56-0400 Respiratory rate 18 /min Xavi Xie MD Work Phone: [facility] 05-14-2024 12:56-0400 SaO2% (BldA) [Mass fraction] 98 % Xavi Xie MD Work Phone: [facility] 05-14-2024 12:56-0400 Systolic blood pressure 147 mm[Hg] Xavi Xie MD Work Phone: [facility] 03-17-2024 14:54-0400 Body mass index (BMI) [Ratio] 37.16 kg/m2 Alexus Galloway MARKETING TEAM LEAD.CORPORATE DEVELOPMENT OFFICER Work Phone: [facility] 03-17-2024 14:54-0400 Body temperature 97.81 [degF] Alexus Suppan MARKETING TEAM LEAD.CORPORATE DEVELOPMENT OFFICER Work Phone: [facility] 03-17-2024 14:54-0400 Body weight 124.29 kg Alexus Suppan MARKETING TEAM LEAD.CORPORATE DEVELOPMENT OFFICER Work Phone: [facility] 03-17-2024 14:54-0400 Diastolic blood pressure 64 mm[Hg] Alexus Suppan MARKETING TEAM LEAD.CORPORATE DEVELOPMENT OFFICER Work Phone: [facility] 03-17-2024 14:54-0400 Heart rate 70 /min Alexus Suppan MARKETING TEAM LEAD.CORPORATE DEVELOPMENT OFFICER Work Phone: [facility] 03-17-2024 14:54-0400 Respiratory rate 24 /min Alexus Suppan MARKETING TEAM LEAD.CORPORATE DEVELOPMENT OFFICER Work Phone: [facility] 03-17-2024 14:54-0400 SaO2% (BldA) [Mass fraction] 96 % Alexus Suppan MARKETING TEAM LEAD.CORPORATE DEVELOPMENT OFFICER Work Phone: [facility] 03-17-2024 14:54-0400 Systolic blood pressure 130 mm[Hg] Alexus Suppan MARKETING TEAM LEAD.CORPORATE DEVELOPMENT OFFICER Work Phone: [facility] 03-11-2024 09:17-0400 Body height 182.9 cm Pio Bogner PA-C Work Phone: [facility] 03-11-2024 09:17-0400 Body temperature 99.19 [degF] Pio Bogner PA-C Work Phone: [facility] 03-11-2024 09:17-0400 Diastolic blood pressure 60 mm[Hg] Pio Bogner PA-C Work Phone: [facility] 03-11-2024 09:17-0400 Heart rate 91 /min Pio Bogner PA-C Work Phone: [facility] 03-11-2024 09:17-0400 Respiratory rate 16 /min Pio Bogner PA-C Work Phone: [facility] 03-11-2024 09:17-0400 SaO2% (BldA) [Mass fraction] 95 % Pio Mcclelland PA-C Work Phone: [facility] 03-11-2024 09:17-0400 Systolic blood pressure 146 mm[Hg] Pio Mcclelland PA-C Work Phone: [facility] 02-13-2024 14:03-0400 Body mass index (BMI) [Ratio] 36.97 kg/m2 Suyapa Soraya MARKETING TEAM LEAD.CORPORATE DEVELOPMENT OFFICER Work Phone: [facility] 02-13-2024 14:03-0400 Body weight 123.65 kg Suyapa Soraya MARKETING TEAM LEAD.CORPORATE DEVELOPMENT OFFICER Work Phone: [facility] 02-13-2024 14:03-0400 Diastolic blood pressure 82 mm[Hg] Suyapa Soraya MARKETING TEAM LEAD.CORPORATE DEVELOPMENT OFFICER Work Phone: [facility] 02-13-2024 14:03-0400 Heart rate 63 /min Suyapa Soraya MARKETING TEAM LEAD.CORPORATE DEVELOPMENT OFFICER Work Phone: [facility] 02-13-2024 14:03-0400 Respiratory rate 20 /min Suyapa Soraya MARKETING TEAM LEAD.CORPORATE DEVELOPMENT OFFICER Work Phone: [facility] 02-13-2024 14:03-0400 SaO2% (BldA) [Mass fraction] 99 % Suyapa Soraya MARKETING TEAM LEAD.CORPORATE DEVELOPMENT OFFICER Work Phone: [facility] 02-13-2024 14:03-0400 Systolic blood pressure 122 mm[Hg] Suyapa Soraya MARKETING TEAM LEAD.CORPORATE DEVELOPMENT OFFICER Work Phone: [facility] 02-05-2024 13:07-0400 Body mass index (BMI) [Ratio] 37.11 kg/m2 Suyapa Soraya MARKETING TEAM LEAD.CORPORATE DEVELOPMENT OFFICER Work Phone: [facility] 02-05-2024 13:07-0400 Body temperature 97.39 [degF] Suyapa Soraya MARKETING TEAM LEAD.CORPORATE DEVELOPMENT OFFICER Work Phone: [facility] 02-05-2024 [id number] Body weight 124.1 kg Suyapa Soraya MARKETING TEAM LEAD.CORPORATE DEVELOPMENT OFFICER Work Phone: [facility] 02-05-2024 13:07-0400 Diastolic blood pressure 78 mm[Hg] Suyapa Soraya MARKETING TEAM LEAD.CORPORATE DEVELOPMENT OFFICER Work Phone: [facility] 02-05-2024 13:[id number] Heart rate 74 /min Suyapa Soraya MARKETING TEAM LEAD.CORPORATE DEVELOPMENT OFFICER Work Phone: [facility] 02-05-2024 [id number] Respiratory rate 20 /min Suyapa Soraya MARKETING TEAM LEAD.CORPORATE DEVELOPMENT OFFICER Work Phone: [facility] 02-05-2024 13:07-0400 SaO2% (BldA) [Mass fraction] 96 % Suyapa Soraya MARKETING TEAM LEAD.CORPORATE DEVELOPMENT OFFICER Work Phone: [facility] 02-05-2024 13:07-0400 Systolic blood pressure 136 mm[Hg] Suyapa Soraya MARKETING TEAM LEAD.CORPORATE DEVELOPMENT OFFICER Work Phone: [facility] 01-29-2024 12:19-0400 Body mass index (BMI) [Ratio] 36.62 kg/m2 Hari Oneill DO Work Phone: [facility] 01-29-2024 12:19-040 Body temperature 96.6 [degF] Hari Oneill DO Work Phone: [facility] 01-29-2024 12:19-0400 Body weight 122.47 kg Hari Oneill DO Work Phone: [facility] 01-29-2024 12:19-0400 Diastolic blood pressure 82 mm[Hg] Hari Oneill DO Work Phone: [facility] 01-29-2024 12:19-0400 Heart rate 64 /min Hari Oneill DO Work Phone: [facility] 01-29-2024 12:19-0400 Respiratory rate 20 /min Hari Oneill DO Work Phone: [facility] 01-29-2024 12:19-0400 Systolic blood pressure 132 mm[Hg] Hari Oneill DO Work Phone: [facility] 12-19-2023 13:46-0400 Body height 182.9 cm Xavi Xie MD Work Phone: [facility] 12-19-2023 13:46-0400 Body mass index (BMI) [Ratio] 36.48 kg/m2 Xavi Xie MD Work Phone: [facility] 12-19-2023 13:46-0400 Body weight 122.02 kg Xavi Xie MD Work Phone: [facility] 12-19-2023 13:46-0400 Diastolic blood pressure 78 mm[Hg] Xavi Xie MD Work Phone: [facility] 12-19-2023 13:46-0400 Heart rate 79 /min Xavi Xie MD Work Phone: [facility] 12-19-2023 13:46-0400 Respiratory rate 18 /min Xavi Xie MD Work Phone: [facility] 12-19-2023 13:46-0400 SaO2% (BldA) [Mass fraction] 96 % Xavi Xie MD Work Phone: [facility] 12-19-2023 13:46-0400 Systolic blood pressure 150 mm[Hg] Xavi Xie MD Work Phone: [facility] 07-11-2023 15:44-0500 Body temperature 97 [degF] Hari Onelil DO Work Phone: [facility] 07-11-2023 15:44-0500 Body weight 122.02 kg Hari Oneill DO Work Phone: [facility] 07-11-2023 15:44-0500 Diastolic blood pressure 80 mm[Hg] Hari Oneill DO Work Phone: [facility] 07-11-2023 15:44-0500 Heart rate 76 /min Hari Oneill DO Work Phone: [facility] 07-11-2023 15:44-0500 Respiratory rate 24 /min Hari Oneill DO Work Phone: [facility] 07-11-2023 15:44-0500 Systolic blood pressure 136 mm[Hg] Hari Oneill DO Work Phone: [facility] 05-01-2023 10:39-0400 Body temperature 97 [degF] Hari Oneill DO Work Phone: [facility] 05-01-2023 10:39-0400 Body weight 116.12 kg Hari Oneill DO Work Phone: [facility] 05-01-2023 10:39-0400 Diastolic blood pressure 70 mm[Hg] Hari Oneill DO Work Phone: [facility] 05-01-2023 10:39-0400 Heart rate 76 /min Hari Oneill DO Work Phone: [facility] 05-01-2023 10:39-0400 Respiratory rate 20 /min Hari Oneill DO Work Phone: [facility] 05-01-2023 10:39-0400 Systolic blood pressure 128 mm[Hg] Hari Oneill DO Work Phone: [facility] 04-02-2023 12:54-0400 Body weight 118.39 kg Suyapa Soraya MARKETING TEAM LEAD.CORPORATE DEVELOPMENT OFFICER Work Phone: [facility] 04-02-2023 12:54-0400 Diastolic blood pressure 82 mm[Hg] Suyapa Soraya MARKETING TEAM LEAD.CORPORATE DEVELOPMENT OFFICER Work Phone: [facility] 04-02-2023 12:54-0400 Heart rate 75 /min Suyapa Soraya MARKETING TEAM LEAD.CORPORATE DEVELOPMENT OFFICER Work Phone: [facility] 04-02-2023 12:54-0400 Respiratory rate 20 /min Suyapa Soraya MARKETING TEAM LEAD.CORPORATE DEVELOPMENT OFFICER Work Phone: [facility] 04-02-2023 12:54-0400 SaO2% (BldA) [Mass fraction] 97 % Suyapa Lira APRN.CORPORATE DEVELOPMENT OFFICER Work Phone: [facility] 04-02-2023 12:54-0400 Systolic blood pressure 144 mm[Hg] Suyapa Lira APRN.CORPORATE DEVELOPMENT OFFICER Work Phone: [facility] 03-14-2023 15:15-0400 Body height 182.9 cm Xavi Xie MD Work Phone: [facility] 03-14-2023 15:15-0400 Body weight 113.85 kg Xavi Xie MD Work Phone: [facility] 03-14-2023 15:15-0400 Diastolic blood pressure 63 mm[Hg] Xavi Xie MD Work Phone: [facility] 03-14-2023 15:15-0400 Heart rate 78 /min Xavi Xie MD Work Phone: [facility] 03-14-2023 15:15-0400 SaO2% (BldA) [Mass fraction] 98 % Xavi Xie MD Work Phone: [facility] 03-14-2023 15:15-0400 Systolic blood pressure 122 mm[Hg] Xavi Xie MD Work Phone: [facility] 02-13-2023 11:38-0400 Body temperature 97.81 [degF] Aurora Sweet APRN.CORPORATE DEVELOPMENT OFFICER Work Phone: [facility] 02-13-2023 11:38-0400 Body weight 117.12 kg Aurora Sweet APRN.CORPORATE DEVELOPMENT OFFICER Work Phone: [facility] 02-13-2023 11:38-0400 Diastolic blood pressure 74 mm[Hg] Aurora Sweet APRN.CORPORATE DEVELOPMENT OFFICER Work Phone: [facility] 02-13-2023 11:38-0400 Heart rate 86 /min Aurora Sweet APRN.CORPORATE DEVELOPMENT OFFICER Work Phone: [facility] 02-13-2023 11:38-0400 Respiratory rate 18 /min Aurora Sweet APRN.CORPORATE DEVELOPMENT OFFICER Work Phone: [facility] 02-13-2023 11:38-0400 SaO2% (BldA) [Mass fraction] 97 % Aurora James JONATHAN.CORPORATE DEVELOPMENT OFFICER Work Phone: [facility] 02-13-2023 11:38-0400 Systolic blood pressure 126 mm[Hg] Aurora Sweet APRN.CORPORATE DEVELOPMENT OFFICER Work Phone: [facility] 01-08-2023 12:17-0400 Body height 182.9 cm Audra Tien ANSARI [facility] 01-08-2023 [id number] Body weight 116.[address] [facility] 11-27-2022 13:16-0400 Body temperature 97.3 [degF] Hari Oneill DO Work Phone: [facility] 11-27-2022 13:16-0400 Body weight 120.2 kg Hari Oneill DO Work Phone: [facility] 11-27-2022 13:16-0400 Diastolic blood pressure 80 mm[Hg] Hari Oneill DO Work Phone: [facility] 11-27-2022 13:16-0400 Heart rate 76 /min Hari Oneill DO Work Phone: [facility] 11-27-2022 13:16-0400 Respiratory rate 20 /min Hari Oneill DO Work Phone: [facility] 11-27-2022 13:16-0400 Systolic blood pressure 130 mm[Hg] Hari Oneill DO Work Phone: [facility] 11-27-2022 12:140400 Body height 182.[address] [facility] 11-27-2022 12:14040 Body weight 118.[address] [facility] 10-16-2022 10:040 Body height 182.[address] [facility] 10-16-2022 10:040 Body weight 125.[address] [facility] 08-29-2022 12:12-0500 Body weight 122.47 kg Hari Oneill DO Work Phone: [facility] 08-29-2022 12:12-0500 Diastolic blood pressure 62 mm[Hg] Hari Oneill DO Work Phone: [facility] 08-29-2022 12:12-0500 Heart rate 72 /min Hari Oneill DO Work Phone: [facility] 08-29-2022 12:12-0500 Respiratory rate 20 /min Hari Oneill DO Work Phone: [facility] 08-29-2022 12:12-0500 SaO2% (BldA) [Mass fraction] 98 % Hari Oneill DO Work Phone: [facility] 08-29-2022 12:12-0500 Systolic blood pressure 128 mm[Hg] Hari Oneill DO Work Phone: [facility] 07-10-2022 11:53-0500 Body weight 124.29 kg Suyapa Soraya MARKETING TEAM LEAD.CORPORATE DEVELOPMENT OFFICER Work Phone: [facility] 07-10-2022 11:53-0500 Diastolic blood pressure 80 mm[Hg] Suyapa Soraya MARKETING TEAM LEAD.CORPORATE DEVELOPMENT OFFICER Work Phone: [facility] 07-10-2022 11:53-0500 Heart rate 70 /min Suyapa Soraya MARKETING TEAM LEAD.CORPORATE DEVELOPMENT OFFICER Work Phone: [facility] 07-10-2022 11:53-0500 Respiratory rate 20 /min Suyapa Soraya MARKETING TEAM LEAD.CORPORATE DEVELOPMENT OFFICER Work Phone: [facility] 07-10-2022 11:53-0500 SaO2% (BldA) [Mass fraction] 100 % Suyapa Soraya MARKETING TEAM LEAD.CORPORATE DEVELOPMENT OFFICER Work Phone: [facility] 07-10-2022 11:53-0500 Systolic blood pressure 124 mm[Hg] Suyapa Soraya MARKETING TEAM LEAD.CORPORATE DEVELOPMENT OFFICER Work Phone: [facility] 05-24-2022 13:44-0400 Body height 182.9 cm Xavi Xie MD Work Phone: [facility] 05-24-2022 13:44-0400 Body weight 122.47 kg Xavi Xie MD Work Phone: [facility] 05-24-2022 13:44-0400 Diastolic blood pressure 59 mm[Hg] Xavi Xie MD Work Phone: [facility] 05-24-2022 13:44-0400 Heart rate 73 /min Xavi Xie MD Work Phone: [facility] 05-24-2022 13:44-0400 Respiratory rate 20 /min Xavi Xie MD Work Phone: [facility] 05-24-2022 13:44-0400 SaO2% (BldA) [Mass fraction] 99 % Xavi Xie MD Work Phone: [facility] 05-24-2022 13:44-0400 Systolic blood pressure 127 mm[Hg] Xavi Xie MD Work Phone: [facility] 05-22-2022 13:21-0400 Body temperature 96.8 [degF] Hari Oneill DO Work Phone: [facility] 05-22-2022 13:21-0400 Body weight 123.38 kg Hari Oneill DO Work Phone: [facility] 05-22-2022 13:21-0400 Diastolic blood pressure 60 mm[Hg] Hari Oneill DO Work Phone: [facility] 05-22-2022 13:21-0400 Heart rate 80 /min Hari Oneill DO Work Phone: [facility] 05-22-2022 13:21-0400 Respiratory rate 20 /min Hari Oneill DO Work Phone: [facility] 05-22-2022 13:21-0400 Systolic blood pressure 130 mm[Hg] Hari Oneill DO Work Phone: [facility] 05-09-2022 13:45-0400 Body weight 122.74 kg Shanda Pack MARKETING TEAM LEAD.CORPORATE DEVELOPMENT OFFICER Work Phone: [facility] 05-09-2022 13:45-0400 Diastolic blood pressure 79 mm[Hg] Shanda Pack MARKETING TEAM LEAD.CORPORATE DEVELOPMENT OFFICER Work Phone: [facility] 05-09-2022 13:45-0400 Heart rate 73 /min Shanda Pack MARKETING TEAM LEAD.CORPORATE DEVELOPMENT OFFICER Work Phone: [facility] 05-09-2022 13:45-0400 Systolic blood pressure 141 mm[Hg] Shanda Pack MARKETING TEAM LEAD.CORPORATE DEVELOPMENT OFFICER Work Phone: [facility] 02-17-2022 12:39-0400 Body weight 124.92 kg Suyapa Soraya MARKETING TEAM LEAD.CORPORATE DEVELOPMENT OFFICER Work Phone: [facility] 02-17-2022 12:39-0400 Diastolic blood pressure 78 mm[Hg] Suyapa Soraya MARKETING TEAM LEAD.CORPORATE DEVELOPMENT OFFICER Work Phone: [facility] 02-17-2022 12:39-0400 Heart rate 76 /min Suyapa Soraya MARKETING TEAM LEAD.CORPORATE DEVELOPMENT OFFICER Work Phone: [facility] 02-17-2022 12:39-0400 SaO2% (BldA) [Mass fraction] 97 % Suyapa Soraya MARKETING TEAM LEAD.CORPORATE DEVELOPMENT OFFICER Work Phone: [facility] 02-17-2022 12:39-0400 Systolic blood pressure 140 mm[Hg] Suyapa Soraya MARKETING TEAM LEAD.CORPORATE DEVELOPMENT OFFICER Work Phone: [facility] 12-15-2021 10:49-0400 Body weight 129.82 kg Dai Zurawick MARKETING TEAM LEAD.CORPORATE DEVELOPMENT OFFICER Work Phone: [facility] 12-15-2021 10:49-0400 Diastolic blood pressure 64 mm[Hg] Dai Zurawick MARKETING TEAM LEAD.CORPORATE DEVELOPMENT OFFICER Work Phone: [facility] 12-15-2021 10:49-0400 Heart rate 60 /min Dai Zurawick MARKETING TEAM LEAD.CORPORATE DEVELOPMENT OFFICER Work Phone: [facility] 12-15-2021 10:49-0400 Respiratory rate 18 /min Dai Zurawick MARKETING TEAM LEAD.CORPORATE DEVELOPMENT OFFICER Work Phone: [facility] 12-15-2021 10:49-0400 Systolic blood pressure 120 mm[Hg] Dai Zurawick MARKETING TEAM LEAD.CORPORATE DEVELOPMENT OFFICER Work Phone: [facility] 12-13-2021 10:37-0400 Body height 177.8 cm Tereza Salvador MARKETING TEAM LEAD.CORPORATE DEVELOPMENT OFFICER Work Phone: [facility] 12-13-2021 10:37-0400 Body weight 129.91 kg Tereza Salvador MARKETING TEAM LEAD.CORPORATE DEVELOPMENT OFFICER Work Phone: [facility] 12-13-2021 10:37-0400 Diastolic blood pressure 64 mm[Hg] Tereza Salvador MARKETING TEAM LEAD.CORPORATE DEVELOPMENT OFFICER Work Phone: [facility] 12-13-2021 10:37-0400 Heart rate 81 /min Tereza Salvador MARKETING TEAM LEAD.CORPORATE DEVELOPMENT OFFICER Work Phone: [facility] 12-13-2021 10:37-0400 Respiratory rate 16 /min Tereza Salvador MARKETING TEAM LEAD.CORPORATE DEVELOPMENT OFFICER Work Phone: [facility] 12-13-2021 10:37-0400 SaO2% (BldA) [Mass fraction] 96 % Tereza Salvador MARKETING TEAM LEAD.CORPORATE DEVELOPMENT OFFICER Work Phone: [facility] 12-13-2021 10:37-0400 Systolic blood pressure 132 mm[Hg] Tereza Salvador MARKETING TEAM LEAD.CORPORATE DEVELOPMENT OFFICER Work Phone: [facility] 12-08-2021 19:55-0400 Body temperature 98.1 [degF] Dr. Hari Oneill Work Phone: [facility] Work Phone: 12-08-2021 19:55-0400 Diastolic blood pressure 78 mm[Hg] Dr. Hari Oneill Work Phone: [facility] Work Phone: 12-08-2021 19:55-0400 Heart rate 89 /min Dr. Hari Oneill Work Phone: [facility] Work Phone: 12-08-2021 19:55-0400 Respiratory rate 15 /min Dr. Hari Oneill Work Phone: [facility] Work Phone: 12-08-2021 19:55-0400 SaO2% (BldA) [Mass fraction] 97 % Dr. Hari Oneill Work Phone: [facility] Work Phone: 12-08-2021 19:55-0400 Systolic blood pressure 147 mm[Hg] Dr. Hari Oneill Work Phone: [facility] Work Phone: 12-08-2021 19:54-0400 Body height 182.[address] Hari Oneill Work Phone: [facility] Work Phone: 12-08-2021 19:54-0400 Body mass index (BMI) [Ratio] 40.1 kg/m2 Dr. Hari Oneill Work Phone: [facility] Work Phone: 12-08-2021 19:54-0400 Body weight 134.[address] Hari Oneill Work Phone: [facility] Work Phone: 11-21-2021 14:32-0400 Body temperature 98.2 [degF] Hari Oneill DO Work Phone: [facility] 11-21-2021 14:32-0400 Body weight 133.36 kg Hari Oneill DO Work Phone: [facility] 11-21-2021 14:32-0400 Diastolic blood pressure 60 mm[Hg] Hari Oneill DO Work Phone: [facility] 11-21-2021 14:32-0400 Heart rate 80 /min Hari Oneill DO Work Phone: [facility] 11-21-2021 14:32-0400 Respiratory rate 20 /min Hari Guanrison DO Work Phone: [facility] 11-21-2021 14:32-0400 Systolic blood pressure 136 mm[Hg] Hari Guanrison DO Work Phone: [facility] 11-09-2021 14:00-0400 Body height 182.9 cm Xavi Xie MD Work Phone: [facility] 11-09-2021 14:00-0400 Body weight 130.64 kg Xavi Xie MD Work Phone: [facility] 11-09-2021 14:00-0400 Diastolic blood pressure 51 mm[Hg] Xavi Xie MD Work Phone: [facility] 11-09-2021 14:00-0400 Heart rate 83 /min Xavi Xie MD Work Phone: [facility] 11-09-2021 14:00-0400 Respiratory rate 19 /min Xavi Xie MD Work Phone: [facility] 11-09-2021 14:00-0400 SaO2% (BldA) [Mass fraction] 97 % Xavi Xie MD Work Phone: [facility] 11-09-2021 14:00-0400 Systolic blood pressure 142 mm[Hg] Xavi Xie MD Work Phone: [facility] 10-31-2021 15:01-0400 Body height 182.9 cm Pepito Chan MD Work Phone: [facility] 10-31-2021 15:01-0400 Body temperature 97.3 [degF] Pepito Chan MD Work Phone: [facility] 10-31-2021 15:01-0400 Body weight 127.01 kg Pepito Chan MD Work Phone: [facility] 10-31-2021 15:01-0400 Diastolic blood pressure 72 mm[Hg] Pepito Chan MD Work Phone: [facility] 10-31-2021 15:01-0400 Heart rate 72 /min Pepito Chan MD Work Phone: [facility] 10-31-2021 15:01-0400 Systolic blood pressure 148 mm[Hg] Pepito Chan MD Work Phone: [facility] 09-12-2021 12:31-0500 Body mass index (BMI) [Ratio] 38.1 kg/m2 Dr. Hari Oneill Work Phone: [facility] Work Phone: 09-12-2021 12:31-0500 Body weight 127.[address] Hari Oneill Work Phone: [facility] Work Phone: 09-12-2021 12:31-0500 Diastolic blood pressure 81 mm[Hg] Dr. Hari Oneill Work Phone: [facility] Work Phone: 09-12-2021 12:31-0500 Respiratory rate 18 /min Dr. Hari Oneill Work Phone: [facility] Work Phone: 09-12-2021 12:31-0500 Systolic blood pressure 143 mm[Hg] Dr. Hari Oneill Work Phone: [facility] Work Phone: Encounters Encounter Date Encounter Type Care Provider Facility Start: 03-24-2025 ambulatory Hari Oneill Facilit y:[facility] Start: 03-18-2025 End: 03-18-2025 Subsequent hospital visit by physician [facility] Work Phone: Radiology Comment on above: ARNDT (dyspnea on exer tion) [R06.09] Start: 03-18-2025 End: 03-19-2025 Follow-up encounter Pauliemonserrat Gooden Tico MCMAHON Work Phone: [facility] [place] Comment on above: Results Start: 03-18-2025 End: 03-18-2025 ambulatory HARI ONEILL Facility:[facility] Start: 03-18-2025 End: 03-18-2025 Office outpatient visit 40 minutes Paulie Godoen Tico MCMAHON Work Phone: [facility] [place] Comment on above: Chronic pseudo-obstr uction of [...] Start: 03-18-2025 End: 03-18-2025 ambulatory HARI ONEILL Facility:[facility] Start: 03-12-2025 Non-patient / Non-visit Dr. Carlton youssef MD -[facility] Work Phone: Start: 03-11-2025 Non-patient / Non-visit Luis A Moffett nd DO -[facility] Start: 03-11-2025 Non-patient / Non-visit Dr. Carlton youssef MD -[facility] Work Phone: Start: 03-10-2025 ambulatory Luis A Singh Facility :[facility] Start: 03-10-2025 Non-patient / Non-visit Luis A Moffett nd DO [facility] Start: 03-10-2025 Non-patient / Non-visit Dr. Carlton yuossef MD [facility] Work Phone: Start: 03-09-2025 End: 03-18-2025 Telephone encounter [facility]ill DO [facility] Comment on above: Medication Problem Start: 03-09-2025 Non-patient / Non-visit Luis A Moffett nd DO -[facility] Start: 03-08-2025 ambulatory Duncan Olvera ility:[facility] Start: 03-08-2025 End: 03-12-2025 Evaluation and management of inpatient Dr. Carlton Davis MD -[facility] 3 Work Phone: Start: 03-08-2025 Non-patient / Non-visit Dr. Danae Stanton MD [facility] Work Phone: Start: 03-07-2025 Non-patient / Non-visit Luis A Moffett nd [facility] Start: 03-07-2025 Non-patient / Non-visit Dr. Danae Stanton MD [facility] Work Phone: Start: 03-06-2025 Non-patient / Non-visit Luis A Moffett [facility] Start: 03-06-2025 Non-patient / Non-visit Dr. Danae Stanton MD [facility] Work Phone: Start: 03-05-2025 ambulatory Duncan Olvera ility:[facility] Start: 03-05-2025 Non-patient / Non-visit Dr. Roro BLANCAS [facility] Work Phone: Start: 03-05-2025 Evaluation and management of inpatient Dr. Duncan Rashid DO -[facility] 3 Work Phone: Start: 03-04-2025 End: 03-04-2025 Patient encounter procedure Beatriz Moncada MD Work Phone: [facility] [place] Comment on above: [place] syndrome (Pr imary Dx); Abdominal distention; Nausea; Diarrhea, unspecified type; Hyponatremia; Hypokalemia; Presence of IVC filter; Thrombosis; Polyuria; Polydipsia; Polyphagia; Food insecurity Start: 03-04-2025 End: 03-04-2025 ambulatory HARI ONEILL Facility:[facility] Start: 03-02-2025 Non-patient / Non-visit Dr. Danae Stanton MD [facility] Work Phone: Start: 03-02-2025 Non-patient / Non-visit Dinah johnson PA-C [facility] Start: 03-01-2025 Non-patient / Non-visit Dr. Shamir Kim MD [facility] Start: 02-28-2025 Non-patient / Non-visit Dr. Shamir Kim MD -[facility] Start: 02-28-2025 Non-patient / Non-visit Dr. Danae Stanton MD -[facility] Work Phone: Start: 02-27-2025 Non-patient / Non-visit Luis A Moffett vickie BLANCAS -[facility] Start: 02-27-2025 End: 03-02-2025 Evaluation and management of inpatient Dr. Lisa Mike MD -Progressive Care Unit Work Phone: Start: 02-27-2025 Non-patient / Non-visit Dr. Lisa kline MD -[facility] Work Phone: Start: 02-27-2025 End: 03-02-2025 ambulatory Hari Hopperon DO Work Phone: [facility] [place] Comment on above: Abdominal Pain Refill Request Start: 02-11-2025 End: 02-11-2025 ambulatory Bg Ford RN [facility] Comment on above: ACM SANFORD RN ( Chart review per payor request) Start: 02-10-2025 End: 02-10-2025 Emergency department patient visit HARI ONEILL Facility:[facility] Start: 02-09-2025 End: 02-09-2025 Office outpatient visit 25 minutes Renee Rose PA-C Work Phone: [facility] Comment on above: Melena; Polyuria; halfway (current) use of anticoagulants Start: 02-09-2025 End: 02-09-2025 ambulatory RENEE ROSE Facility:[facility] Start: 01-22-2025 End: 01-22-2025 ambulatory Hari Hopperon DO Work Phone: [facility] Start: 01-22-2025 End: 01-22-2025 Patient encounter procedure Hari Guanrison DO Work Phone: [facility] Comment on above: Population Health Na vigation Outreach ([facility] [place] ) Refill Request Start: 12-22-2024 End: 12-22-2024 Refill Hari L Oneill DO Work Phone: [facility] [place] Comment on above: Refill Request Start: 11-19-2024 End: 11-19-2024 Refill Xavi Xie MD Work Phone: Neurology Comment on above: Refill Request Start: 10-29-2024 End: 10-30-2024 Refill Hari Guanrison DO Work Phone: [facility] [place] Comment on above: Refill Request; requ esting medication that is not on list Results Start: 10-28-2024 End: 10-28-2024 Refill Hari Guanrison DO Work Phone: [facility] [place] Comment on above: Refill Request Start: 10-24-2024 End: 10-24-2024 Refill Hari Hopperon DO [facility] Phone[facility] Comment on above: Refill Request Start: 10-21-2024 End: 10-23-2024 Telephone encounter Hari Hopperon DO Work Phone: [facility] [place] Comment on above: Anticoagulation Start: 10-21-2024 End: 10-21-2024 ambulatory HARI L ONEILL Facility:[facility] Start: 10-21-2024 End: 10-21-2024 Patient encounter procedure Hari Hopperon DO Work Phone: [facility] [place] Comment on above: Venous stasis dermat itis of both lower extremities (Primary Dx); Polydipsia; Polyuria; Hyperglycemia; Hypothyroidism, acquired; Other acute pulmonary embolism with acute cor pulmonale (HCC); Frequent bowel movements; Nausea; Abdominal fullness; Calculus of gallbladder without cholecystitis without obstruction; halfway current use of anticoagulant therapy; Focal epilepsy with impairment of consciousness, intractable (HCC) Start: 10-08-2024 End: 10-08-2024 ambulatory HARI L ONEILL Facility:[facility] Start: 10-08-2024 End: 10-08-2024 Patient encounter procedure Bere Hays APRN.CNP Work Phone: General Surgery Comment on above: Gastroesophageal ref lux disease without esophagitis (Primary Dx); Gastritis without bleeding, unspecified chronicity, unspecified gastritis type Start: 09-30-2024 End: 09-30-2024 ambulatory HARI L ONEILL Facility:[facility] Start: 09-30-2024 End: 09-30-2024 Subsequent hospital visit [...] 09-10-2024 End: 09-10-2024 ambulatory Dereck Cochran MA [facility] [employer] Start: 09-10-2024 End: 09-10-2024 Patient encounter [facility] Comment on above: Population Health Na [facility]igation Outreach [facility] [place] Start: 09-02-2024 End: 09-02-2024 ambulatory HARI Dumont ONEILL Facility:[facility] Start: 09-02-2024 End: 09-02-2024 Patient encounter procedure Eyad Novoa DO Work Phone: Vascular Surgery Comment on above: Post-thrombotic synd guy (Primary Dx); Bilateral leg edema; Bilateral leg pain Start: 08-29-2024 End: 10-29-2024 Telephone encounter Jayesh Hernandez MD Work Phone: General Surgery Comment on above: 09-29-2024 [facility] Start: 08-29-2024 End: 08-29-2024 ambulatory HARI L ONEILL Facility:[facility] Start: 08-29-2024 End: 08-29-2024 Patient encounter procedure [...] Suyapa Lira APRN.CNP Work Phone: [facility] [place] Comment on above: Results; Appointment Start: 08-15-2024 End: 08-15-2024 ambulatory HARI ONEILL Facility:[facility] Start: 08-15-2024 End: 08-15-2024 Subsequent hospital visit by physician [facility] Work Phone: Nuclear Medicine Start: 08-08-2024 End: 08-21-2024 Telephone encounter Suyapa Lira APRN.CNP Work Phone: [facility] [place] Comment on above: Results; Orders; Josef ointment Start: 07-28-2024 End: 07-28-2024 ambulatory HARI GUANRISON Facility:[facility] Start: 07-28-2024 End: 07-28-2024 Subsequent hospital visit by physician [facility] Work Phone: Radiology Comment on above: Nausea [R11.0] Start: 07-25-2024 End: 08-21-2024 Telephone encounter Suyapa Lira APRN.CNP Work Phone: [facility] [place] Comment on above: Results; Orders Start: 07-24-2024 End: 07-24-2024 ambulatory HARI GUANRISON Facility:[facility] Start: 07-24-2024 End: 07-24-2024 Office outpatient visit 40 minutes Suyapa Lira APRN.CNP Work Phone: [facility] [place] Comment on above: Frequent urination a t night (Primary Dx); halfway current use of anticoagulant therapy; History of pulmonary embolus (PE); Nausea; Weight gain; Overeating; Frequent bowel movements; Bilateral leg edema; Bilateral leg pain Start: 07-11-2024 End: 07-11-2024 Telephone encounter Xavi Xie MD Work Phone: Neurology Comment on above: Forms ([facility] Re-enroll ment Confirmation for VIMPAT) Start: 07-02-2024 End: 07-02-2024 Refill Dai Rivera APRN.CORPORATE DEVELOPMENT OFFICER Work Phone: [facility] [place] Comment on above: Refill Request Start: 06-23-2024 End: 06-23-2024 Refill Hari Oneill DO Work Phone: [facility] [place] Comment on above: Refill Request Start: 06-11-2024 ambulatory [facility] ty:[facility] Start: 06-11-2024 End: 06-11-2024 Subsequent hospital visit by physician [facility] Comment on above: Cellulitis of lower extremity, unspecified laterality [L03.119] Start: 06-10-2024 End: 06-10-2024 Office outpatient visit 40 minutes Suyapa Lira APRN.CORPORATE DEVELOPMENT OFFICER Work Phone: [facility] [place] Comment on above: Cellulitis of lower extremity, unspecified laterality; Bilateral leg edema Start: 06-10-2024 End: 06-10-2024 ambulatory HARI ONEILL Facility:[facility] Start: 06-10-2024 End: 06-10-2024 Telephone encounter Hari Oneill DO Work Phone: [facility] [place] Comment on above: Orders (INR ) Start: 05-29-2024 End: 05-30-2024 Telephone encounter Alexus Galloway APRN.CORPORATE DEVELOPMENT OFFICER Work Phone: [facility] [place] Comment on above: Anticoagulation Start: 05-29-2024 End: 05-29-2024 ambulatory HARI ONEILL Facility:[facility] Start: 05-29-2024 End: 05-29-2024 Office outpatient visit 15 minutes Skyler Adams APRN.JOURNEYMAN CARPENTER Work Phone: Internal [facility] [place] Comment on above: Cellulitis of lower extremity, unspecified laterality (Primary Dx); Bilateral leg edema Start: 05-20-2024 End: 05-20-2024 Office outpatient visit 25 minutes Skyler Adams MARKETING TEAM LEAD.JOURNEYMAN CARPENTER Work Phone: [facility] [place] Comment on above: Cellulitis of lower extremity, unspecified laterality (Primary Dx); Bilateral leg edema Start: 05-20-2024 End: 05-20-2024 ambulatory HARI L ONEILL Facility:[facility] Start: 05-20-2024 End: 05-20-2024 Patient encounter procedure Gerardo Greenwood MARKETING TEAM LEAD.CORPORATE DEVELOPMENT OFFICER Work Phone: [facility] Comment on above: Procedure not peter d out (Primary Dx) Start: 05-15-2024 End: 05-15-2024 Refill Xavi Xie MD Work Phone: Neurology Comment on above: Refill Request Start: 05-14-2024 End: 05-14-2024 Patient encounter procedure Xavi Xie MD Work Phone: Neurology Comment on above: Partial epilepsy, wi th intractable epilepsy, pharmacoresistant (HCC) (Primary Dx) Start: 05-14-2024 End: 05-14-2024 ambulatory HARI L ONEILL Facility:[facility] Start: 05-13-2024 End: 05-15-2024 Telephone encounter Hari L Oneill DO Work Phone: [facility] [place] Comment on above: Anticoagulation Start: 05-12-2024 End: 05-12-2024 ambulatory HARI L ONEILL Facility:[facility] Start: 05-12-2024 End: 05-12-2024 Telephone encounter Hari L Oneill DO Work Phone: [facility] [place] Comment on above: Erroneous encounter- disregard INR results Start: 05-06-2024 End: 05-06-2024 Telephone encounter Pio Mcclelland PA-C Work Phone: Family [facility] [place] Start: 05-05-2024 End: 05-05-2024 ambulatory HARI L ONEILL Facility:[facility] Start: 05-05-2024 End: 05-05-2024 ambulatory HARI L ONEILL Facility:[facility] Start: 05-05-2024 End: 05-05-2024 Patient encounter procedure Echocardiogram [facility] Work Phone: Cardiology Comment on above: Newly recognized hea rt murmur DVT (deep vein throm bosis) in (Primary Dx); History of DVT (deep vein thrombosis); Hypokalemia Refill Request Start: 03-21-2024 End: 03-21-2024 ambulatory [facility] Facility:[facility] Start: 03-17-2024 End: 03-17-2024 Office outpatient visit 15 minutes Alexus Galloway APRN.CORPORATE DEVELOPMENT OFFICER Work Phone: [facility] [place] Comment on above: Gross hematuria (Mari wood Dx); Iron deficiency anemia due to chronic blood loss; Hypokalemia; Generalized weakness Start: 03-11-2024 ambulatory Hari Lainez son DO Work Phone: [facility] [place] Comment on above: Fever Start: 03-11-2024 Telephone encounter Hari Julia Dominguez wesburt DO Work Phone: [facility] [place] Comment on above: Blood In Urine (star keo 1 hour ago 12:46 pm) Start: 03-11-2024 End: 03-11-2024 Office outpatient visit 25 minutes Pio Mcclelland PA-C Work Phone: [facility] [place] Comment on above: Newly recognized hea rt murmur (Primary Dx); Diarrhea, unspecified type Start: 03-10-2024 Refill Hari Lainez son DO Work Phone: [facility] [place] Comment on above: Refill Request Start: 02-14-2024 Telephone encounter Xavi torres MD Work Phone: Neurology Comment on above: Medication Problem ( Keppra - Low Levels) Start: 02-13-2024 End: 02-13-2024 Patient encounter procedure Suyapa Lira APRN.CORPORATE DEVELOPMENT OFFICER Work Phone: [facility] [place] Comment on above: Wound of right lower extremity, subsequent encounter (Primary Dx); Wound of left lower extremity, initial encounter Start: 02-05-2024 End: 02-05-2024 Patient encounter procedure Suyapa Lira APRN.CORPORATE DEVELOPMENT OFFICER Work Phone: [facility] [place] Comment on above: Avulsion of toenail of left foot (Primary Dx); Avulsion of toenail of right foot; Wound of right lower extremity, subsequent encounter; Onychomycosis; Bilateral leg edema Start: 01-29-2024 End: 01-29-2024 Patient encounter procedure Hari Oneill DO Work Phone: [facility] [place] Comment on above: Leg wound, right, in itial encounter (Primary Dx); Avulsion of toenail of left foot; Bleeding from wound; Diffuse large B-cell lymphoma, unspecified body region (HCC); Major depressive disorder, single episode, in full remission (HCC); Morbid obesity (HCC); IFG (impaired fasting glucose); Hypothyroidism, acquired; Dysthymia; Partial epilepsy, with intractable epilepsy, pharmacoresistant (HCC) Start: 01-17-2024 Refill Hari cary DO Work Phone: [facility] [place] Comment on above: Refill Request Start: 01-14-2024 Refill Mi Ortez Work Phone: Neurology Comment on above: Refill Request Start: 01-01-2024 Telephone encounter Hari solares DO Work Phone: [facility] [place] Comment on above: Letter to get off Ju ry Duty Start: 12-19-2023 End: 12-19-2023 Refill Hari Dumont Oneill DO [facility] Phone[facility] Comment on above: Refill Request Partial epilepsy, [...] Refill Hari cary DO Work Phone: [facility] [place] Comment on above: Refill Request Start: 10-08-2023 Refill Keerthi Nunn PRN.CNP Work Phone: Neurology Comment on above: Refill Request Start: 09-27-2023 Telephone encounter Hari solares DO Work Phone: [facility] [place] Comment on above: Refill Request Start: 09-17-2023 Telephone encounter Xavi torres MD Work Phone: Neurology Comment on above: Medication Problem ( Vimpat - UCB Application and script) Start: 07-18-2023 Telephone encounter Hari solares DO Work Phone: [facility] [place] Comment on above: Anticoagulation Start: 07-11-2023 End: 07-11-2023 Patient encounter procedure Hari Oneill DO Work Phone: [facility] [place] Comment on above: IFG (impaired fastin g [...] Telephone encounter Hari solares DO Work Phone: [facility] [place] Comment on above: Orders Start: 05-24-2023 Refill Xavi Xie MD Work Phone: Neurology Comment on above: Refill Request Start: 05-01-2023 End: 05-01-2023 Patient encounter procedure Hari Oneill DO Work Phone: [facility] [place] Comment on above: Hypothyroidism, acqu ired (Primary Dx); Bilateral leg pain; 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; Other pulmonary embolism without acute cor pulmonale, unspecified chronicity (HCC); Chronic anticoagulation; Partial epilepsy, with intractable epilepsy, pharmacoresistant (HCC); Obesity, Class II, BMI 35-39.9 Start: 04-23-2023 Refill Xavi Xie MD Work Phone: Neurology Comment on above: Refill Request Start: 04-19-2023 Telephone encounter Suyapa Joseph JONATHAN.CORPORATE DEVELOPMENT OFFICER Work Phone: [facility] [place] Comment on above: Patient Update Start: 04-18-2023 Telephone encounter Xavi torres MD Work Phone: Neurology Comment on above: Seizures Start: 04-06-2023 Refill Hari cary DO Work Phone: [facility] [place] Comment on above: Refill Request Start: 04-04-2023 Telephone encounter Suyapa Dingclive JONATHAN.CORPORATE DEVELOPMENT OFFICER Work Phone: [facility] [place] Comment on above: Results; Orders Start: 04-02-2023 End: 04-02-2023 Patient encounter procedure Suyapa Vásquezutzman JONATHAN.CORPORATE DEVELOPMENT OFFICER Work Phone: [facility] [place] Comment on above: Partial epilepsy, wi [...] Refill Hari Lainez son DO Work Phone: [facility] Comment on above: Refill Request Start: 02-14-2023 Telephone encounter Aurora Sweet APRN.CORPORATE DEVELOPMENT OFFICER [facility] Phone[facility] Comment on above: Results Start: 02-13-2023 End: 02-13-2023 Subsequent hospital visit by physician X[facility] [place] Work Phone: Radiology Comment on above: Pain [R52] Start: 02-13-2023 End: 02-13-2023 Patient encounter procedure Aurora Sweet APRN.CORPORATE DEVELOPMENT OFFICER Work Phone: [facility] Comment on above: Pain (Primary Dx) Start: 01-31-2023 Telephone encounter Abelino varner Research Coordinator Neurology Comment on above: Research (IRB [id number] ) Start: 01-10-2023 ambulatory Nate Israel esearch Coordinator Neurology Comment on above: An opportunity to pa rticipate in an important Epilepsy [facility] Research Study Start: 01-10-2023 E-mail encounter lyle cruz caregiver Nate Martinez Research Coordinator [facility] Start: 01-08-2023 End: 01-08-[address] Nutrition Therapy Comment on above: Reassessment; Patien t Education Start: 12-14-2022 Telephone encounter Hari solares DO Work Phone: [facility] [place] Comment on above: Anticoagulation Start: 12-12-2022 Telephone encounter Hari Dominguez arrison DO Work Phone: [facility] [place] Comment on above: Orders Start: 12-06-2022 Refill Hari Dumont Fatou son DO Work Phone: [facility] [place] Comment on above: Refill Request Start: 12-05-2022 Telephone encounter Xavi torres MD Work Phone: Neurology Comment on above: Seizures Patient Update Start: 11-29-2022 Telephone encounter Hari Dominguez arrison DO Work Phone: [facility] [place] Comment on above: Results Start: 11-28-2022 ambulatory Shanda STEPHENS RN.CORPORATE DEVELOPMENT OFFICER Work Phone: Gastroenterology Comment on above: bacterial overgrowth Start: 11-28-2022 E-mail encounter lyle cruz caregiver Shanda Lainez APRN.CORPORATE DEVELOPMENT OFFICER Work Phone: [facility] Start: 11-28-2022 Telephone encounter Hari solares DO Work Phone: [facility] [place] Comment on above: Anticoagulation Start: 11-27-2022 End: 11-27-2022 Patient encounter procedure Hari Oneill DO Work Phone: [facility] [place] Comment on above: Hypothyroidism, acqu ired (Primary [...] 11-03-2022 Refill Hari cary DO Work Phone: [facility] Comment on above: Refill Request Start: 10-26-2022 Patient Msg [facility] Provider [facility] Comment on above: Important Instructio ns reminder regarding your upcoming Breath Test Please follow Directions carefully in order to avoid your procedure being cancelled or rescheduled. Thank you Start: 10-20-2022 Telephone encounter Neli quan PA-C Work Phone: [facility] Comment on above: Results Critical INR 5.1 Start: 10-16-2022 End: 10-16-[address] Nutrition Therapy Comment on above: Assessment; Patient Education Start: 10-12-2022 End: 10-12-2022 Patient encounter procedure Vicenta Garcias [facility] Work Phone: [facility] Comment on above: Increased appetite ( Primary Dx); Medication management Start: 10-10-2022 Telephone encounter Vicenta dowling [facility] Work Phone: [facility] Comment on above: Appointment (Cost co ncerns) Start: 09-20-2022 Refill Hari Lainez raeann DO Work Phone: [facility] [place] Comment on above: Refill Request Start: 09-01-2022 Telephone encounter Hari Dominguez wesburt DO Work Phone: [facility] [place] Comment on above: Medication Problem Start: 08-29-2022 End: 08-29-2022 Patient encounter procedure Hari Oneill DO Work Phone: [facility] [place] Comment on above: Hypothyroidism, acqu ired (Primary Dx); Bloating; Vitamin D deficiency; Vitamin B12 deficiency; Eating disorder, unspecified type; Dysthymia; Lactose intolerance; Dyslipidemia Start: 08-11-2022 Telephone encounter Hari Julia Angelica solares DO Work Phone: [facility] [place] Comment on above: Patient Update Start: 07-10-2022 End: 07-10-2022 Patient encounter procedure Suyapa Lira APRN.CORPORATE DEVELOPMENT OFFICER Work Phone: [facility] [place] Comment on above: halfway current us e of anticoagulant therapy (Primary Dx); History of pulmonary embolus (PE); Hypoglycemia; Appetite increase; Hypothyroidism, acquired Start: 07-06-2022 Telephone encounter Suyapa Joseph APRN.CORPORATE DEVELOPMENT OFFICER Work Phone: [facility] [place] Comment on above: Results Start: 06-26-2022 Telephone encounter Hari Julia Dominguez beck DO Work Phone: [facility] [place] Comment on above: Anticoagulation Start: 06-21-2022 Telephone encounter Suyapa Joseph MARKETING TEAM LEAD.CORPORATE DEVELOPMENT OFFICER Work Phone: [facility] [place] Comment on above: Results Start: 06-09-2022 Telephone encounter Dai devine MARKETING TEAM LEAD.CORPORATE DEVELOPMENT OFFICER Work Phone: [facility] [place] Comment on above: Results Start: 06-05-2022 Refill Dai Beverlyc yanet MARKETING TEAM LEAD.CORPORATE DEVELOPMENT OFFICER Work Phone: [facility] [place] Comment on above: Refill Request Start: 06-01-2022 Orders Only Shanda STEPHENS RN.CORPORATE DEVELOPMENT OFFICER Work Phone: Gastroenterology Comment on above: Elevated fecal calpr otectin (Primary Dx) Start: 05-31-2022 Telephone encounter Dai devine APRN.CORPORATE DEVELOPMENT OFFICER Work Phone: [facility] [place] Comment on above: Anticoagulation Start: 05-24-2022 End: 05-24-2022 Patient encounter procedure Xavi Xie MD Work Phone: Neurology Comment on above: Partial epilepsy, wi th intractable epilepsy, pharmacoresistant (HCC) (Primary Dx) Start: 05-24-2022 Refill Dai Bebe holt MARKETING TEAM LEAD.CORPORATE DEVELOPMENT OFFICER Work Phone: [facility] [place] Comment on above: Refill Request Start: 05-24-2022 Telephone encounter Hari solares DO Work Phone: [facility] [place] Comment on above: Results Start: 05-22-2022 End: 05-22-2022 Patient encounter procedure Hari Oneill DO Work Phone: [facility] [place] Comment on above: Diarrhea, unspecifie d type (Primary Dx); Need for pneumococcal vaccination; Hypothyroidism, acquired; Bloating; Vitamin D deficiency; Vitamin B12 deficiency; Advance care planning; Dysthymia; Lactose intolerance Start: 05-09-2022 End: 05-09-2022 Patient encounter procedure Shanda Lainez APRN.CORPORATE DEVELOPMENT OFFICER Work Phone: Gastroenterology Comment on above: Diarrhea, unspecifie d type (Primary Dx) Refill Request Start: 04-25-2022 Refill Hari cary DO Work Phone: [facility] [place] Comment on above: Refill Request Start: 02-27-2022 Telephone encounter Hari solares DO Work Phone: [facility] [place] Comment on above: Results Start: 02-23-2022 Refill Mi Ortez Work Phone: Neurology Comment on above: Refill Request Start: 02-17-2022 End: 02-17-2022 Patient encounter procedure Suyapa Lira MARKETING TEAM LEAD.CORPORATE DEVELOPMENT OFFICER Work Phone: [facility] [place] Comment on above: Diarrhea, unspecifie d type (Primary Dx) Start: 02-08-2022 Refill Suyapa austin MARKETING TEAM LEAD.CORPORATE DEVELOPMENT OFFICER Work Phone: [facility] [place] Comment on above: Refill Request Start: 01-30-2022 Refill Hari cary DO Work Phone: [facility] [place] Comment on above: Prescription Refills Start: 01-27-2022 Refill Hari cary DO Work Phone: [facility] [place] Comment on above: Refill Request Start: 01-11-2022 Refill Keerthi RODRIGUEZN.CORPORATE DEVELOPMENT OFFICER Work Phone: Neurology Comment on above: Refill Request Start: 01-03-2022 Refill Dai Dempseycampos holt MARKETING TEAM LEAD.CORPORATE DEVELOPMENT OFFICER Work Phone: [facility] [place] Comment on above: Refill Request Start: 12-15-2021 End: 12-15-2021 Patient encounter procedure Dai Dempseysybil MARKETING TEAM LEAD.CORPORATE DEVELOPMENT OFFICER Work Phone: [facility] [place] Comment on above: Visit for suture rem oval (Primary Dx); Visit for wound check Start: 12-14-2021 Telephone encounter Hari harveyburt DO Work Phone: [facility] [place] Comment on above: Results Start: 12-13-2021 End: 12-13-2021 Patient encounter procedure Tereza Salvador MARKETING TEAM LEAD.[facility] Work Phone: Gastroenterology Comment on above: Heartburn (Primary D x); Functional diarrhea; Fat malabsorption Start: 12-12-2021 End: 12-12-2021 Nursing evaluation of patient and report Mi Nurse Work Phone: [facility] [place] Comment on above: Diarrhea, unspecifie d type (Primary Dx); Bloating; Weight gain Start: 12-08-2021 End: 12-08-2021 Emergency department patient [facility] Start: 12-07-2021 Telephone encounter Hari solares DO Work Phone: [facility] [place] Comment on above: Appointment Start: 12-02-2021 Telephone encounter Hari solares DO Work Phone: [facility] [place] Comment on above: Anticoagulation Start: 11-29-2021 Telephone encounter Hari solares DO Work Phone: [facility] [place] Comment on above: Anticoagulation Start: 11-21-2021 End: 11-21-2021 Patient encounter procedure Hari Oneill DO Work Phone: [facility] [place] Comment on above: Bloating (Primary Dx ); Diarrhea, unspecified type; Weight gain; Urinary frequency; 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; Abnormal biliary [...] Refill Hari Julia cary DO Work Phone: [facility] [place] Comment on above: Refill Request Start: 10-25-2021 Refill Hari cary DO Work Phone: [facility] [place] Comment on above: Refill Request Start: 10-11-2021 Telephone encounter Hari solares DO Work Phone: [facility] [place] Comment on above: Results Start: 09-12-2021 End: 09-12-[address] Hari Oneill Work Phone: [facility] Start: 08-08-2021 End: 08-08-2021 Subsequent hospital visit by physician [facility] Work Phone: Radiology Comment on above: Cough [R05.9] Start: 12-03-2020 End: 12-03-2020 Subsequent hospital visit by physician [facility] Work Phone: Radiology Comment on above: Fever, unspecified f ever cause [R50.9] Start: 10-25-2020 End: 10-25-2020 Subsequent hospital visit by physician [facility] Work Phone: Radiology Comment on above: Acute pain of right shoulder [M25.511] Procedures Date Procedure Procedure Detail Performing Clinician Start: 03-18-2025 Radiologic exam chest 2 views Paulie Geronimo APRN.CORPORATE DEVELOPMENT OFFICER Work Phone: Start: 03-12-2025 Estimated creatinine clearance [...] reported as: Test not performed Start: 03-08-2025 DIETARY INTERNSHIP antibody measurement Dr. Hari Oneill DO Work Phone: Comment on above: Previous reported result: TNP AIEdited b y: INFCE on 03/10/25:1308 AMENDED REPORT 03/10/25 1308 DIETARY INTERNSHIP Ab previously reported as: Test not performed [...] Specimen Type: BLOOD SPEC IMEN Ordering Facility: [facility] Address: [address] [place] [id number] Performed By: #### T SCR #### [facility] CLIA [id number] [address] [place] [address] [place] Start: 09-30-2024 Colonoscopy flx dx w/collj spec when pfrmd Bere Hays MARKETING TEAM LEAD.CORPORATE DEVELOPMENT OFFICER Work Phone: Start: 09-30-2024 Esophagogastroduodenoscopy transoral diagnostic Bere Bradly MARKETING TEAM LEAD.CORPORATE DEVELOPMENT OFFICER Work Phone: Start: 09-30-2024 Colonoscopy Marjan Tariq MD Work Phone: Start: 08-15-2024 Hepatobiliary syst imaging including gallbladder Suyapa Lira MARKETING TEAM LEAD.CORPORATE DEVELOPMENT OFFICER Work Phone: Start: 06-11-2024 Dup-scan xtr veins complete bilateral study Suyapa Lira MARKETING TEAM LEAD.CORPORATE DEVELOPMENT OFFICER Work Phone: Start: 06-10-2024 Cul bact xcpt urine blood/stool aerobic isol Suyapa Lira MARKETING TEAM LEAD.CORPORATE DEVELOPMENT OFFICER Work Phone: Start: 05-05-2024 Echo tthrc r-t 2d w/wom-mode compl spec&colr d Pio Mcclelland PA-C Work Phone: Start: 05-05-2024 LVEF TRANSTHORACIC ECHO Pio COYC Work Phone: Start: 07-11-2023 Hemoglobin A1c/Hemoglobin.total in Blood Hari Oneill DO Work Phone: Start: 02-13-2023 Radex ankle complete minimum 3 views Aurora Sweet MARKETING TEAM LEAD.CORPORATE DEVELOPMENT OFFICER Work Phone: Start: 11-27-2022 Lipid 1996 panel - Serum or Plasma Nacho Xie MD Work Phone: Start: 11-07-2022 Breath hydrogen/methane test Shanda Pack MARKETING TEAM LEAD.CORPORATE DEVELOPMENT OFFICER Work Phone: Start: 12-08-2021 X-ray of both [...] Detail Author Start: 12-09-2031 [facility] Start: 09-30-2029 Screening for malignant neoplasm of colon [facility] Start: 03-18-2028 Diabetes Screening Diabetes Screening [facility] Start: 02-11-2028 Diabetes Screening Diabetes Screening [facility] Start: 11-28-2027 Lipid 1996 panel - Serum or Plasma Lipid Screening [facility] Start: 11-28-2027 Lipid panel Lipid Screening [facility] Start: 11-28-2027 LIPID SCREEN LIPID SCREEN [facility] Start: 10-22-2027 Diabetes Screening Diabetes Screening [facility] Start: 05-05-2027 Diabetes Screening Diabetes Screening [facility] Start: 03-11-2027 Diabetes Screening Diabetes Screening [facility] Start: 10-20-2026 PROSTATE CANCER SCREENING DISCUSSION PROSTATE CANCER SCREENING DISCUSSION [facility] Start: 07-11-2026 Diabetes Screening Diabetes Screening [facility] Start: 06-18-2026 LIPID SCREEN LIPID SCREEN [facility] Start: 05-03-2026 Colonoscopy COLONOSCOPY [facility] Start: 05-03-2026 COLORECTAL CANCER SCREENING COLORECTAL CANCER SCREENING [facility] Start: 05-03-2026 Screening for malignant neoplasm of colon [facility] Start: 04-22-2026 Diabetes Screening Diabetes Screening [facility] Start: 04-19-2026 Diabetes Screening Diabetes Screening [facility] Start: 04-18-2026 Diabetes Screening Diabetes Screening [facility] Start: 03-18-2026 Annual PCP Team Chronic Disease Visit Annual PCP Team Chronic Disease Visit [facility] Start: 03-18-2026 RSV Vaccine (1 - Risk 60-74 years 1-dose series) RSV Vaccine (1 - Risk 60-74 years 1-dose series) [facility] Comment on above: Postponed from 2013 (Declined at t his time) Start: 03-18-2026 Shingrix Vaccine (1 of 2) Shingrix Vaccine (1 of 2) [facility] Comment on above: Postponed from 2003 (Declined at t his time) Start: 03-04-2026 Annual PCP Team Chronic Disease Visit Annual PCP Team Chronic Disease Visit [facility] Start: 11-27-2025 DIABETES SCREEN DIABETES SCREEN [facility] Start: 10-21-2025 Annual PCP Team Chronic Disease Visit Annual PCP Team Chronic Disease Visit [facility] Start: 07-24-2025 Annual PCP Team Chronic Disease Visit Annual PCP Team Chronic Disease Visit [facility] Start: 07-10-2025 DIABETES SCREEN DIABETES SCREEN [facility] Start: 06-10-2025 Annual PCP Team Chronic Disease Visit Annual PCP Team Chronic Disease Visit [facility] Start: 05-29-2025 BP Controlled (<130/80) BP Controlled (<130/80) [facility] Start: 05-29-2025 Covid-19 Vaccine (3 - Moderna risk series) Covid-19 Vaccine (3 - Moderna risk series) [facility] Comment on above: Postponed from 02/02/2021 (Declined at t his time) Start: 05-22-2025 DIABETES SCREEN DIABETES SCREEN [facility] Start: 05-12-2025 End: 05-12-2025 Patient encounter procedure 05/12/2025 3:00 PM EDT Office Visit [facility] [address] [place] [address] Hari Oneill, DO [address] [place], [place] [address] [facility] Comment on above: WELLNESS Start: 04-06-2025 Influenza vaccination [facility] Start: 03-31-2025 End: 03-31-2025 Patient encounter procedure 03/31/2025 2:40 PM EDT Office Visit [facility] [address] [place] [address] Hari Oneill, DO [address] [facility] [place] [address] 3 Month follow up Family [facility] Comment on above: 3 Month follow up Start: 03-26-2025 End: 06-25-2025 PT panel - Platelet poor plasma by Coagulation assay PROTHROMBIN TIME Lab Routine History of pulmonary embolus (PE) 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) Expected: 03/26/2025, Expires: 06/25/2025 [facility] Work Phone: Comment on above: Expected: 03/26/2025, Expires: Start: 03-24-2025 End: 03-24-2025 Procedure PULM LAB [facility] Comment on above: Dx: ARNDT (dyspnea on exertion) [R06.09]; Borderline low oxygen saturation level Start: 03-18-2025 End: 06-16-2025 Comprehensive metabolic 2000 panel - Serum or Plasma [facility] Work Phone: Comment on above: Expected: 03/18/2025, Expires: Start: 03-18-2025 End: 06-16-2025 Ferritin [Mass/volume] in Serum or Plasma [facility] Comment on above: Expected: 03/18/2025, Expires: Start: 03-18-2025 End: 06-16-2025 Iron and Iron binding capacity panel - Serum or Plasma [facility] Comment on above: Expected: 03/18/2025, Expires: Start: 03-18-2025 End: 04-17-2026 LUNG VOLUMES LUNG VOLUMES PFT Routine ARNDT (dyspnea on exertion) Borderline low oxygen saturation level Expected: 03/18/2025, Expires: 04/17/2026 [facility] Comment on above: Expected: 03/18/2025, Expires: Start: 03-18-2025 End: 06-16-2025 Phosphate [Mass/volume] in Serum or Plasma [facility] Comment on above: Expected: 03/18/2025, Expires: Start: 03-18-2025 End: 06-16-2025 Thyrotropin [Units/volume] in Serum or Plasma [facility] Comment on above: Expected: 03/18/2025, Expires: Start: 03-18-2025 End: 06-16-2025 Thyroxine (T4) free [Mass/volume] in Serum or Plasma [facility] Comment on above: Expected: 03/18/2025, Expires: Start: 03-12-2025 Patient discharge [facility] Start: 03-11-2025 Annual PCP Team Chronic Disease Visit Annual PCP Team Chronic Disease Visit [facility] Start: 03-11-2025 [facility] Start: 03-10-2025 Application of intermittent pneumatic compression device [facility] Start: 03-09-2025 [facility] Start: 03-08-2025 Admission procedure [facility] Start: 03-07-2025 Laboratory test [facility] Start: 03-07-2025 End: 03-07-2025 [facility] Start: 03-07-2025 Ova and Parasites Ova and Parasites [facility] Start: 03-07-2025 Consultation [facility] Start: 03-07-2025 [facility] Start: 03-06-2025 Following clinical pathway protocol [facility] Start: 03-06-2025 Referral to gastroenterology service [facility] Start: 03-06-2025 Prothrombin time [facility] Start: 03-05-2025 Referral to service [facility] Start: 03-05-2025 Ambulation without limitation [facility] Start: 03-05-2025 Assessment of risk of venous thromboembolism [facility] Start: 03-05-2025 Insertion of catheter into peripheral vein [facility] Start: 03-05-2025 Measuring intake and output [facility] Start: 03-05-2025 Providing care according to standard [facility] Start: 03-05-2025 Referral to occupational therapist [facility] Start: 03-05-2025 Referral to service [facility] Start: 03-05-2025 [facility] Start: 03-05-2025 Following clinical pathway protocol [facility] Start: 03-05-2025 Verification routine [facility] Start: 03-05-2025 Admission procedure [facility] Start: 03-05-2025 Hospital admission, emergency, from emergency room, medical nature [facility] Start: 03-05-2025 Prothrombin time [facility] Start: 03-04-2025 End: 06-03-2025 CBC W Auto Differential panel - Blood COMPLETE BLOOD COUNT AND DIFFERENTIAL Lab Routine Diarrhea, unspecified type Expected: 03/04/2025, Expires: 06/03/2025 [facility] Comment on above: Expected: 03/04/2025, Expires: Start: 03-04-2025 End: 06-03-2025 Comprehensive metabolic 2000 panel - Serum or Plasma COMPREHENSIVE METABOLIC PANEL Lab Routine Hyponatremia Hypokalemia Expected: 03/04/2025, Expires: 06/03/2025 [facility] Work Phone: Comment on above: Expected: 03/04/2025, Expires: Start: 03-04-2025 End: 06-03-2025 Hemoglobin A1c in Blood HEMOGLOBIN A1C Lab Routine Polyuria Polydipsia Polyphagia Expected: 03/04/2025, Expires: 06/03/2025 [facility] Comment on above: Expected: 03/04/2025, Expires: Start: 03-04-2025 End: 06-03-2025 PT panel - Platelet poor plasma by Coagulation assay PROTHROMBIN TIME Lab Routine Presence of IVC filter Thrombosis Expected: 03/04/2025, Expires: 06/03/2025 [facility] Comment on above: Expected: 03/04/2025, Expires: Start: 03-04-2025 Prothrombin time [facility] Start: 03-02-2025 Patient discharge [facility] Start: 03-01-2025 Referral to service [facility] Start: 02-28-2025 Referral to general surgeon [facility] Start: 02-28-2025 Chart related administrative procedure [facility] Start: 02-27-2025 Following clinical pathway protocol [facility] Start: 02-27-2025 Assessment of risk of venous thromboembolism [facility] Start: 02-27-2025 Inhalation therapy procedure [facility] Start: 02-27-2025 Insertion of catheter into peripheral vein [facility] Start: 02-27-2025 Measuring intake and output [facility] Start: 02-27-2025 Providing care according to standard [facility] Start: 02-27-2025 Provision of activity privileges [facility] Start: 02-27-2025 Referral to gastroenterology service [facility] Start: 02-27-2025 Referral to service [facility] Start: 02-27-2025 [facility] Start: 02-27-2025 Hospital admission, emergency, from emergency room, medical nature [facility] Start: 02-27-2025 Verification routine [facility] Start: 02-27-2025 Admission procedure [facility] Start: 02-27-2025 [facility] Start: 02-12-2025 Annual PCP Team Chronic Disease Visit Annual PCP Team Chronic Disease Visit [facility] Start: 02-04-2025 Annual PCP Team Chronic Disease Visit Annual PCP Team Chronic Disease Visit [facility] Start: 02-02-2025 Influenza vaccination Influenza Vaccine (#1) [place] [facility] ortez Comment on above: Postponed from 04/06/2024 (Declined at t his time) Start: 01-28-2025 Annual PCP Team Chronic Disease Visit Annual PCP Team Chronic Disease Visit [facility] Start: 01-27-2025 End: 01-27-2025 Patient encounter procedure 01/27/2025 2:40 PM EDT Office Visit Family [facility] [address] [place] [address] Hari Oneill DO [address] [place], [place] [id number] 3 Month follow up Family [facility] Comment on above: 3 Month follow up Start: 12-03-2024 End: 12-03-2024 Patient encounter procedure 12/03/2024 1:30 PM EDT Office Visit Neurology [address] [place] [address] Xavi Xie MD [address] [place] [address] 6 months Neurology Comment on above: 6 months Start: 11-30-2024 End: 03-01-2025 Thyrotropin [Units/volume] in Serum or Plasma THYROID STIMULATING HORMONE Lab Routine Hypothyroidism, acquired Expected: 11/30/2024, Expires: 03/01/2025 [facility] Work Phone: Comment on above: Expected: 11/30/2024, Expires: Start: 11-30-2024 End: 03-01-2025 Thyroxine (T4) free [Mass/volume] in Serum or Plasma T4 FREE/FREE THYROXINE Lab Routine Hypothyroidism, acquired Expected: 11/30/2024, Expires: 03/01/2025 [facility] Comment on above: Expected: 11/30/2024, Expires: Start: 11-11-2024 End: 11-11-2024 Patient encounter procedure 11/11/2024 1:00 PM EDT Office Visit [facility] [place] [address] [place] [address] Suyapa Lira APRN.CORPORATE DEVELOPMENT OFFICER [address] [place] [address] 3 week recheck legs Family [facility] [place] Comment on above: 3 week recheck legs Start: 10-21-2024 End: 01-20-2025 ADH/ARGININE VASOPRS [facility] Work Phone: Comment on above: Expected: 10/21/2024, Expires: Start: 10-20-2024 DIABETES SCREEN DIABETES SCREEN [facility] Start: 10-08-2024 End: 10-08-2024 Patient encounter procedure 10/08/2024 11:30 AM EST Office Visit General Surgery [address] [place] [address] Bere Hays APRN.CORPORATE DEVELOPMENT OFFICER [address] [place] [address] 09-30 colonoscopy follow up General Surgery Comment on above: 09-30 colonoscopy follow up Start: 09-30-2024 End: 09-30-2024 Patient encounter procedure 09/30/2024 12:30 PM EST Appointment Ambulatory Surgery [address] [place], [place] [id number] Marjan Tariq MD [address] [place] [id number] Nausea [R11.0]; Abdominal bloating [R14.0]; Abdominal fullness [R19.8]; Early satiety [R68.81]; Diarrhea, unspecified type [R19.7] Ambulatory Surgery Comment on above: Nausea [R11.0]; Abdominal bloating [R14. 0]; Abdominal fullness [R19.8]; Early satiety [R68.81]; Diarrhea, unspecified type [R19.7] Start: 09-29-2024 End: 09-29-2024 Patient encounter procedure Ambulatory Surgery Start: 09-25-2024 End: 09-25-2024 Patient encounter procedure 09/25/2024 8:00 AM EST Appointment Nuclear Medicine [address] [place] [address] Nausea [R11.0]; Weight gain [R63.5]; Overeating [R63.2]; Frequent bowel movements [R19.4] Nuclear Medicine Comment on above: Nausea [R11.0]; Weight gain [R63.5]; Ove reating [R63.2]; Frequent bowel movements [R19.4] Start: 09-23-2024 End: 09-23-2024 Patient encounter procedure 09/23/2024 11:30 AM EST Office Visit Vascular Surgery [address] [place] [address] Eyad Novoa, DO [address] [place] [address] follow up Vascular Surgery Comment on above: follow up Start: 09-15-2024 End: 09-15-2024 Nutrition therapy 09/15/2024 10:15 AM EST Education Nutrition Therapy [address] [place], [place] [id number] Audra Chauhan [address] [place] [address] Nausea [R11.0]; Weight gain [R63.5]; Overeating [R63.2]; Frequent bowel movements [R19.4] Nutrition Therapy Comment on above: Nausea [R11.0]; Weight gain [R63.5]; Ove reating [R63.2]; Frequent bowel movements [R19.4] Start: 09-09-2024 End: 09-09-2024 Patient encounter procedure 09/09/2024 11:15 AM EST Office Visit Vascular Surgery [address] [place] [address] Eyad Novoa, DO [address] [place], [place] [id number] follow up Vascular Surgery Comment on above: follow up Start: 09-02-2024 End: 09-02-2024 Patient encounter procedure 09/02/2024 11:00 AM EST Office Visit Vascular Surgery [address] [facility] [place], [place] [address] Eyad Novoa, DO [address] [place], [place] [id number] Bilateral leg edema [R60.0]; Bilateral leg pain [M79.604, M79.605] Vascular Surgery Comment on above: Bilateral leg edema [R60.0]; Bilateral l eg pain [M79.604, M79.605] Start: 08-29-2024 End: 08-29-2024 Patient encounter procedure 08/29/2024 10:45 AM EST Office Visit General Surgery [address] [place] [address] Jayesh Hernandez MD [address] [address] Calculus of gallbladder without cholecystitis without obstruction [K80.20] General Surgery Comment on above: Calculus of gallbladder without cholecys titis without obstruction [K80.20] Start: 08-27-2024 End: 08-27-2024 Patient encounter procedure 08/27/2024 12:30 PM EST Office Visit Vasculary Surgery [address] [place] [address] Bilateral leg edema [R60.0]; Bilateral leg pain [M79.604, M79.605] Vasculary Surgery Comment on above: Bilateral leg edema [R60.0]; Bilateral l eg pain [M79.604, M79.605] Start: 08-18-2024 End: 08-18-2024 Nutrition therapy 08/18/2024 1:45 PM EST Education Nutrition Therapy [address] [place] [address] Audra Chauhan, RD [address] [place] [address] Nausea [R11.0]; Weight gain [R63.5]; Overeating [R63.2]; Frequent bowel movements [R19.4] Nutrition Therapy Comment on above: Nausea [R11.0]; Weight gain [R63.5]; Ove reating [R63.2]; Frequent bowel movements [R19.4] Start: 08-06-2024 Medicare Advantage Annual Wellness Visit Medicare Advantage Annual Wellness Visit [facility] Start: 07-28-2024 End: 07-28-2024 Patient encounter procedure 07/28/2024 10:00 AM EST Appointment Radiology [address] [place], [place] [id number] Nausea [R11.0]; Weight gain [R63.5]; Overeating [R63.2]; Frequent bowel movements [R19.4] Radiology Comment on above: Nausea [R11.0]; Weight gain [R63.5]; Ove reating [R63.2]; Frequent bowel movements [R19.4] Start: 07-24-2024 End: 10-23-2024 Prostate Specific Ag Free [Mass/volume] in Serum or Plasma [facility] Work Phone: Comment on above: Expected: 07/24/2024, Expires: Start: 07-24-2024 End: 10-23-2024 PT panel - Platelet poor plasma by Coagulation assay [facility] Comment on above: Expected: 07/24/2024, Expires: Start: 07-11-2024 Annual PCP Team Chronic Disease Visit Annual PCP Team Chronic Disease Visit [facility] Start: 06-16-2024 End: 06-16-2024 Patient encounter procedure 06/16/2024 12:00 PM EST Office Visit [facility] [place] [address] [place] [address] Suyapa Lira APRN.CORPORATE DEVELOPMENT OFFICER [address] [place] [address] cellulitis follow up [facility] Medicine [place] Comment on above: cellulitis follow up Start: 06-11-2024 End: 06-11-2024 Patient encounter procedure 06/11/2024 5:00 PM EST Appointment [facility] [address] [place] [address] Cellulitis of lower extremity, unspecified laterality [L03.119]; Bilateral leg edema [R60.0] [facility] Comment on above: Cellulitis of lower extremity, unspecifi ed laterality [L03.119]; Bilateral leg edema [R60.0] Start: 06-10-2024 End: 06-10-2024 Patient encounter procedure 06/10/2024 2:20 PM EST Office Visit Family [facility] [place] [address] [place] [address] Suyapa Lira APRN.CORPORATE DEVELOPMENT OFFICER [address] [place], [place] [address] follow up - cellullitis Family [facility] Comment on above: follow up - cellullitis Start: 06-10-2024 End: 09-09-2024 PT panel - Platelet poor plasma by Coagulation assay PROTHROMBIN TIME Lab Routine Other acute pulmonary embolism without acute cor pulmonale (HCC) Expected: 06/10/2024, Expires: 09/09/2024 [facility] Work Phone: Comment on above: Expected: 06/10/2024, Expires: Start: 06-04-2024 End: 09-03-2024 Potassium [Moles/volume] in Serum or Plasma POTASSIUM Lab Routine Hypokalemia Expected: 06/04/2024, Expires: 09/03/2024 [facility] Comment on above: Expected: 06/04/2024, Expires: Start: 05-29-2024 End: 05-29-2024 Patient encounter procedure 05/29/2024 1:00 PM EDT Office Visit Internal Medicine [place] [address] [place] [address] Skyler Adams APRN.[employer]OURNEY[employer]PENTER [address] [place] [address] follow up Internal Medicine [place] Comment on above: follow up Start: 05-14-2024 End: 05-14-2024 Patient encounter procedure 05/14/2024 1:00 PM EDT Office Visit Neurology [address] [place] [address] Xavi Xie MD [address] [place], [place] [id number] f/u Neurology Comment on above: f/u Start: 05-12-2024 End: 08-11-2024 PT panel - Platelet poor plasma by Coagulation assay [facility] Work Phone: Comment on above: Expected: 05/12/2024, Expires: Start: 05-01-2024 Annual PCP Team Chronic Disease Visit Annual PCP Team Chronic Disease Visit [facility] Start: 05-01-2024 BP Controlled (<130/80) BP Controlled (<130/80) [facility] in Start: 04-06-2024 Influenza vaccination [facility] Start: 04-02-2024 ANNUAL PCP TEAM CHRONIC DISEASE VISIT ANNUAL PCP TEAM CHRONIC DISEASE VISIT [facility] Start: 04-01-2024 End: 04-01-2024 Patient encounter procedure 04/01/2024 1:40 PM EDT Office Visit [facility] [place] [address] [place] [address] Suyapa Lira APRN.CORPORATE DEVELOPMENT OFFICER [address] [place] [address] 1 week F/U Hematuria, Anemia, Hypokalemia [facility] [place] Comment on above: 1 week F/U Hematuria, Anemia, Hypokalemi a Start: 03-25-2024 End: 03-25-2024 Patient encounter procedure 03/25/2024 11:20 AM EDT Office Visit Cardiology [address] [place], [place] [id number] Newly recognized heart murmur [R01.1] Cardiology Comment on above: Newly recognized heart murmur [R01.1] Start: 03-17-2024 End: 06-16-2024 Basic metabolic 2000 panel - Serum or Plasma BASIC METABOLIC PANEL Lab Routine Hypokalemia Expected: 03/17/2024, Expires: 06/16/2024 [facility] Comment on above: Expected: 03/17/2024, Expires: 4 Start: 03-17-2024 End: 06-16-2024 CBC W Auto Differential panel - Blood COMPLETE BLOOD COUNT AND DIFFERENTIAL Lab Routine Gross hematuria Iron deficiency anemia due to chronic blood loss Expected: 03/17/2024, Expires: 06/16/2024 [facility] Work Phone: Comment on above: Expected: 03/17/2024, Expires: 4 Start: 03-17-2024 End: 06-16-2024 Ferritin [Mass/volume] in Serum or Plasma FERRITIN Lab Routine Gross hematuria Expected: 03/17/2024, Expires: 06/16/2024 [facility] Comment on above: Expected: 03/17/2024, Expires: 4 Start: 03-17-2024 End: 06-16-2024 Iron and Iron binding capacity panel - Serum or Plasma IRON AND TIBC Lab Routine Gross hematuria Expected: 03/17/2024, Expires: 06/16/2024 [facility] Comment on above: Expected: 03/17/2024, Expires: 4 Start: 03-17-2024 End: 06-16-2024 Magnesium [Mass/volume] in Serum or Plasma MAGNESIUM Lab Routine Hypokalemia Expected: 03/17/2024, Expires: 06/16/2024 [facility] Comment on above: Expected: 03/17/2024, Expires: Start: 03-17-2024 End: 06-16-2024 PT panel - Platelet poor plasma by Coagulation assay PROTHROMBIN TIME Lab Routine Gross hematuria Expected: 03/17/2024, Expires: 06/16/2024 [facility] Comment on above: Expected: 03/17/2024, Expires: Start: 03-14-2024 BP CONTROLLED (<130/80) BP CONTROLLED (<130/80) [facility] in Start: 03-11-2024 End: 06-10-2024 Comprehensive metabolic 2000 panel - Serum or Plasma [facility] Comment on above: Expected: 03/11/2024, Expires: Start: 03-11-2024 End: 06-10-2024 Urinalysis complete panel - Urine URINALYSIS WITH MICROSCOPIC, REFLEX CULTURE Lab Routine Diarrhea, unspecified type Expected: 03/11/2024, Expires: 06/10/2024 [facility] Comment on above: Expected: 03/11/2024, Expires: Start: 02-14-2024 BP CONTROLLED (<130/80) BP CONTROLLED (<130/80) [facility] in Start: 02-13-2024 End: 02-13-2024 Patient encounter procedure 02/13/2024 2:20 PM EDT Office Visit [facility] [place] [address] [place], [place] [id number] Suyapa Lira, JONATHAN.CORPORATE DEVELOPMENT OFFICER [address] [place], [place] [id number] 1 week follow up [facility] [place] Comment on above: 1 week follow up Start: 02-05-2024 End: 02-05-2024 Patient encounter procedure 02/05/2024 1:00 PM EDT Office Visit [facility] Medicine [place] [address] [facility], [place] [id number] Suyapa Lira, JONATHAN.CORPORATE DEVELOPMENT OFFICER [address] [place] [address] 1 week follow up [facility] [place] Comment on above: 1 week follow up Start: 02-03-2024 Influenza vaccination Influenza Vaccine (#1) [facility] Comment on above: Postponed from 04/06/2023 (Declined at t his time) Start: 01-29-2024 End: 01-29-2024 Patient encounter procedure 01/29/2024 12:40 PM EDT Office Visit [facility] [place] [address] [facility], [place] [address] Hari Oneill DO [address] [facility] [place] [place] [address] 3 month follow up [facility] [place] Comment on above: 3 month follow up Start: 12-19-2023 End: 03-19-2024 LACOSAMIDE LACOSAMIDE Lab Routine Partial epilepsy, with intractable epilepsy, pharmacoresistant (HCC) Expected: 12/19/2023, Expires: 03/19/2024 [facility] Comment on above: Expected: 12/19/2023, Expires: Start: 12-19-2023 End: 03-19-2024 lamoTRIgine [Mass/volume] in Serum or Plasma LAMOTRIGINE Lab Routine Partial epilepsy, with intractable epilepsy, pharmacoresistant (HCC) Expected: 12/19/2023, Expires: 03/19/2024 [facility] Comment on above: Expected: 12/19/2023, Expires: Start: 12-19-2023 End: 03-19-2024 levETIRAcetam [Mass/volume] in Serum or Plasma LEVETIRACETAM Lab Routine Partial epilepsy, with intractable epilepsy, pharmacoresistant (HCC) Expected: 12/19/2023, Expires: 03/19/2024 [facility] Work Phone: Comment on above: Expected: 12/19/2023, Expires: Start: 12-19-2023 End: 03-19-2024 Zonisamide [Mass/volume] in Serum or Plasma ZONISAMIDE Lab Routine Partial epilepsy, with intractable epilepsy, pharmacoresistant (HCC) Expected: 12/19/2023, Expires: 03/19/2024 [facility] Comment on above: Expected: 12/19/2023, Expires: Start: 12-19-2023 End: 12-19-2023 Patient encounter procedure 12/19/2023 1:30 PM EDT Office Visit Neurology [address] [place] [address] Xavi Xie MD [address] [place] [address] f/u Neurology Comment on above: f/u Start: 11-28-2023 ANNUAL PCP TEAM CHRONIC DISEASE VISIT ANNUAL PCP TEAM CHRONIC DISEASE VISIT [facility] Start: 10-21-2023 BP CONTROLLED (<130/80) BP CONTROLLED (<130/80) [facility] Start: 08-29-2023 ANNUAL PCP TEAM CHRONIC DISEASE VISIT ANNUAL PCP TEAM CHRONIC DISEASE VISIT [facility] Start: 08-29-2023 BP CONTROLLED (<130/80) BP CONTROLLED (<130/80) [facility] Start: 07-12-2023 End: 10-11-2023 PT panel - Platelet poor plasma by Coagulation assay PROTHROMBIN TIME/PT Lab Routine Chronic anticoagulation Expected: 07/12/2023, Expires: 10/11/2023 [facility] Work Phone: Comment on above: Expected: 07/12/2023, Expires: Start: 07-10-2023 ANNUAL PCP TEAM CHRONIC DISEASE VISIT ANNUAL PCP TEAM CHRONIC DISEASE VISIT [facility] Start: 07-10-2023 BP CONTROLLED (<130/80) BP CONTROLLED (<130/80) [facility] Start: 05-24-2023 BP CONTROLLED (<130/80) BP CONTROLLED (<130/80) [facility] Start: 05-22-2023 ANNUAL PCP TEAM CHRONIC DISEASE VISIT ANNUAL PCP TEAM CHRONIC DISEASE VISIT [facility] Start: 05-01-2023 End: 07-01-2023 Thyrotropin [Units/volume] in Serum or Plasma TSH BLD Lab Routine Hypothyroidism, acquired Expected: 05/01/2023, Expires: 07/01/2023 [facility] Work Phone: Comment on above: Expected: 05/01/2023, Expires: Start: 05-01-2023 End: 07-01-2023 Thyroxine (T4) free [Mass/volume] in Serum or Plasma T4 FREE/FREE THYROX Lab Routine Hypothyroidism, acquired Expected: 05/01/2023, Expires: 07/01/2023 [facility] Work Phone: Comment on above: Expected: 05/01/2023, Expires: 3 Start: 05-01-2023 End: 07-01-2023 Triiodothyronine (T3) Free [Mass/volume] in Serum or Plasma T3 FREE BLD Lab Routine Hypothyroidism, acquired Expected: 05/01/2023, Expires: 07/01/2023 [facility] Work Phone: Comment on above: Expected: 05/01/2023, Expires: 3 Start: 04-11-2023 End: 06-11-2023 PT panel - Platelet poor plasma by Coagulation assay PROTHROMBIN TIME/PT Lab Routine Chronic anticoagulation Expected: 04/11/2023, Expires: 06/11/2023 [facility] Work Phone: Comment on above: Expected: 04/11/2023, Expires: 3 Start: 04-06-2023 Influenza vaccination [facility] Start: 03-14-2023 End: 05-14-2023 LACOSAMIDE LACOSAMIDE Lab Routine Partial epilepsy, with intractable epilepsy, pharmacoresistant (HCC) Expected: 03/14/2023, Expires: 05/14/2023 [facility] Work Phone: Comment on above: Expected: 03/14/2023, Expires: Start: 03-14-2023 End: 05-14-2023 lamoTRIgine [Mass/volume] in Serum or Plasma LAMOTRIGINE Lab Routine Partial epilepsy, with intractable epilepsy, pharmacoresistant (HCC) Expected: 03/14/2023, Expires: 05/14/2023 [facility] Work Phone: Comment on above: Expected: 03/14/2023, Expires: Start: 03-14-2023 End: 05-14-2023 Zonisamide [Mass/volume] in Serum or Plasma ZONISAMIDE Lab Routine Partial epilepsy, with intractable epilepsy, pharmacoresistant (HCC) Expected: 03/14/2023, Expires: 05/14/2023 [facility] Work Phone: Comment on above: Expected: 03/14/2023, Expires: 3 Start: 02-19-2023 FECAL OCCULT BLOOD FECAL OCCULT BLOOD [facility] Start: 02-19-2023 Screening for malignant neoplasm of colon Fecal Occult Blood [facility] Start: 02-17-2023 ANNUAL PCP TEAM CHRONIC DISEASE VISIT ANNUAL PCP TEAM CHRONIC DISEASE VISIT [facility] Start: 02-02-2023 Influenza vaccination INFLUENZA (#1) [facility] Comment on above: Postponed from 04/06/2022 (Declined at t his time) Start: 12-15-2022 ANNUAL PCP TEAM CHRONIC DISEASE VISIT ANNUAL PCP TEAM CHRONIC DISEASE VISIT [facility] Start: 12-15-2022 BP CONTROLLED (<130/80) BP CONTROLLED (<130/80) [facility] Start: 11-28-2022 End: 01-28-2023 Comprehensive metabolic 2000 panel - Serum or Plasma COMP METABOLIC PANEL Lab Routine Dyslipidemia Expected: 11/28/2022, Expires: 01/28/2023 [facility] Work Phone: Comment on above: Expected: 11/28/2022, Expires: 3 Start: 11-28-2022 End: 01-28-2023 Hemoglobin A1c in Blood HGB A1C Lab Routine Eating disorder, unspecified type Lactose intolerance Dyslipidemia Expected: 11/28/2022, Expires: 01/28/2023 [facility] Work Phone: Comment on above: Expected: 11/28/2022, Expires: 3 Start: 11-28-2022 End: 01-28-2023 Lipid 1996 panel - Serum or Plasma LIPID PANEL BASIC Lab Routine Dyslipidemia Expected: 11/28/2022, Expires: 01/28/2023 [facility] Work Phone: Comment on above: Expected: 11/28/2022, Expires: 3 Start: 11-28-2022 End: 01-28-2023 Thyrotropin [Units/volume] in Serum or Plasma TSH BLD Lab Routine Lactose intolerance Dyslipidemia Expected: 11/28/2022, Expires: 01/28/2023 [facility] Work Phone: Comment on above: Expected: 11/28/2022, Expires: 3 Start: 11-21-2022 ANNUAL PCP TEAM CHRONIC DISEASE VISIT ANNUAL PCP TEAM CHRONIC DISEASE VISIT [facility] Start: 10-24-2022 FECAL OCCULT BLOOD FECAL OCCULT BLOOD [facility] Start: 10-20-2022 ANNUAL PCP TEAM CHRONIC DISEASE VISIT ANNUAL PCP TEAM CHRONIC DISEASE VISIT [facility] Start: 10-20-2022 Urine microalbumin profile DTAP,TDAP,TD (2 - Tdap) [facility] Comment on above: Postponed from 06/01/2010 (Declined at t his time) Start: 07-10-2022 End: 09-09-2022 CBC panel - Blood by Automated count [facility] Work Phone: Comment on above: Expected: 07/10/2022, Expires: 3 Start: 07-10-2022 End: 09-09-2022 Comprehensive metabolic 2000 panel - Serum or Plasma [facility] Work Phone: Comment on above: Expected: 07/10/2022, Expires: 3 Start: 07-10-2022 End: 09-09-2022 Hemoglobin A1c in Blood [facility] Work Phone: Comment on above: Expected: 07/10/2022, Expires: 3 Start: 07-10-2022 End: 09-09-2022 Thyrotropin [Units/volume] in Serum or Plasma [facility] Work Phone: Comment on above: Expected: 07/10/2022, Expires: 3 Start: 07-10-2022 End: 09-09-2022 Thyroxine (T4) free [Mass/volume] in Serum or Plasma [facility] Work Phone: Comment on above: Expected: 07/10/2022, Expires: 3 Start: 07-10-2022 End: 09-09-2022 Triiodothyronine (T3) [Mass/volume] in Serum or Plasma [facility] Work Phone: Comment on above: Expected: 07/10/2022, Expires: 3 Start: 06-17-2022 BP CONTROLLED (<130/80) BP CONTROLLED (<130/80) [facility] Start: 05-24-2022 End: 07-24-2022 LACOSAMIDE [facility] Work Phone: Comment on above: Expected: 05/24/2022, Expires: 2 Start: 05-24-2022 End: 07-24-2022 lamoTRIgine [Mass/volume] in Serum or Plasma [facility] Work Phone: Comment on above: Expected: 05/24/2022, Expires: 2 Start: 05-24-2022 End: 07-24-2022 Zonisamide [Mass/volume] in Serum or Plasma [facility] Work Phone: Comment on above: Expected: 05/24/2022, Expires: 2 Start: 05-22-2022 End: 07-22-2022 25-hydroxyvitamin D3 [Mass/volume] in Serum or Plasma [facility] Work Phone: Comment on above: Expected: 05/22/2022, Expires: 2 Start: 04-06-2022 Influenza vaccination [facility] Start: 02-02-2022 Influenza vaccination INFLUENZA (#1) [facility] Comment on above: Postponed from 04/06/2021 (Declined at t his time) Start: 11-21-2021 End: 01-21-2022 ADH/ARGININE VASOPRS ADH/ARGININE VASOPRS Lab Routine Diarrhea, unspecified type Weight gain Urinary frequency Expected: 11/21/2021, Expires: 01/21/2022 [facility] Work Phone: Comment on above: Expected: 11/21/2021, Expires: 2 Start: 11-21-2021 End: 01-21-2022 CELIAC SCREEN WITH REFLEX CELIAC SCREEN WITH REFLEX Lab Routine Diarrhea, unspecified type Bloating Weight gain Expected: 11/21/2021, Expires: 01/21/2022 [facility] Work Phone: Comment on above: Expected: 11/21/2021, Expires: 2 Start: 11-21-2021 End: 01-21-2022 Cortisol [Mass/volume] in Serum or Plasma CORTISOL BLD Lab Routine Diarrhea, unspecified type Weight gain Urinary frequency Expected: 11/21/2021, Expires: 01/21/2022 [facility] Work Phone: Comment on above: Expected: 11/21/2021, Expires: 2 Start: 11-21-2021 End: 01-21-2022 LACTOSE TOLERANCE LACTOSE TOLERANCE Lab Routine Diarrhea, unspecified type Bloating Weight gain Expected: 11/21/2021, Expires: 01/21/2022 [facility] Work Phone: Comment on above: Expected: 11/21/2021, Expires: 2 Start: 11-21-2021 End: 01-21-2022 Prolactin [Mass/volume] in Serum or Plasma PROLACTIN BLD Lab Routine Diarrhea, unspecified type Weight gain Urinary frequency Expected: 11/21/2021, Expires: 01/21/2022 [facility] Work Phone: Comment on above: Expected: 11/21/2021, Expires: 2 Start: 11-21-2021 End: 01-21-2022 PT panel - Platelet poor plasma by Coagulation assay PROTHROMBIN TIME/PT Lab Routine halfway current use of anticoagulant therapy Expected: 11/21/2021, Expires: 01/21/2022 [facility] Work Phone: Comment on above: Expected: 11/21/2021, Expires: 2 Start: 09-12-2021 Patient referral [facility] Work Phone: Start: 08-06-2021 ADVANCE DIRECTIVE DISCUSSION ADVANCE DIRECTIVE DISCUSSION [facility] Start: 02-02-2021 COVID-19 VACCINE (3 - Moderna risk 4-dose series) COVID-19 VACCINE (3 - Moderna risk 4-dose series) [facility] Start: 02-02-2021 COVID-19 VACCINE (3 - Moderna risk series) COVID-19 VACCINE (3 - Moderna risk series) [facility] Start: 2018 PNEUMOVAX AGE 65 AND OVER WITH 5YR LOOKBACK (#1) PNEUMOVAX AGE 65 AND OVER WITH 5YR LOOKBACK (#1) [facility] Start: 2013 RSV Vaccine (1 - 1-dose 60+ series) RSV Vaccine (1 - 1-dose 60+ series) [facility] Start: 2013 RSV Vaccine (1 - Risk 60-74 years 1-dose series) RSV Vaccine (1 - Risk 60-74 years 1-dose series) [facility] Start: 2003 SHINGRIX VACCINE (1 of 2) SHINGRIX VACCINE (1 of 2) [facility] Start: 1998 COLOGUARD (FIT-DNA) COLOGUARD (FIT-DNA) [facility] Start: [address] COLONOGRAPHY [facility] Start: 1998 Screening for malignant neoplasm of colon [facility] Start: 1998 SIGMOIDOSCOPY SIGMOIDOSCOPY [facility] Start: 1972 SHINGRIX VACCINE (1 of 2) SHINGRIX VACCINE (1 of 2) [facility] Start: 1959 PNEUMOCOCCAL: 65+ (1 - PCV) PNEUMOCOCCAL: 65+ (1 - PCV) [facility] [id number]. tumor marker [Units/volume] in Serum or Plasma [facility] Bacteria identified in Wound by Culture ABSCESS AND WOUND CULTURE WITH GRAM STAIN Microbiology Routine Cellulitis of lower extremity, unspecified laterality Bilateral leg edema 06/10/2024 3:41 PM EST [facility] Breath hydrogen/meth ane test BREATH TEST - LACTULOSE Procedures Routine Diarrhea, unspecified type Bloating Weight gain Ordered: 11/21/2021 [facility] Work Phone: Comment on above: Ordered: 11/21/2021 End: 05-09-2023 BREATH TEST GLUCOSE BREATH TEST GLUCOSE Endoscopy Routine Diarrhea, unspecified type 1 Occurrences starting 05/09/2022 until 05/09/2023 [facility] Work Phone: Comment on above: 1 Occurrences starting 05/09/2022 until 05/09/2023 Calprotectin [Mass/m ass] in Stool CALPROTECTIN,FECAL Lab Routine Functional diarrhea Fat malabsorption Ordered: 12/13/2021 [facility] Work Phone: Comment on above: Ordered: 12/13/2021 Calprotectin [Mass/m ass] in Stool CALPROTECTIN,FECAL Lab Routine Diarrhea, unspecified type Ordered: 05/09/2022 [facility] Work Phone: Comment on above: Ordered: 05/09/2022 Calprotectin [Mass/m ass] in Stool CALPROTECTIN,FECAL Lab Routine Elevated fecal calprotectin Ordered: 06/01/2022 [facility] Work Phone: Comment on above: Ordered: 06/01/2022 Cancer Ag 19-9 [Units/volume] in Serum or Plasma [facility] Carcinoembryonic Ag [Mass/volume] in Serum or Plasma [facility] Chitobioside IgA Ab [Units/volume] in Serum or Plasma by Immunoassay [facility] Clostridioides diffi cile toxin genes [Presence] in Stool by ZACHARY with probe detection C. DIFFICILE PCR Lab Routine Diarrhea, unspecified type Ordered: 02/17/2022 [facility] Work Phone: Comment on above: Ordered: 02/17/2022 Clostridioides diffi cile toxin genes [Presence] in Stool by ZACHARY with probe detection C. DIFFICILE PCR Lab Routine Diarrhea, unspecified type Ordered: 05/09/2022 [facility] Work Phone: Comment on above: Ordered: 05/09/2022 Clostridioides diffi cile toxin genes [Presence] in Stool by ZACHARY with probe detection C. DIFFICILE PCR Lab Routine Diarrhea, unspecified type Ordered: 03/11/2024 [facility] Comment on above: Ordered: 03/11/2024 End: 03-11-2025 Echocardiography ECHO Cardiology Routine Newly recognized heart murmur 1 Occurrences starting 03/11/2024 until 03/11/2025 [facility] Work Phone: Comment on above: 1 Occurrences starting 03/11/2024 until 03/11/2025 End: 08-29-2025 EGD DIAGNOSTIC EGD DIAGNOSTIC Endoscopy Routine Calculus of gallbladder without cholecystitis without obstruction Nausea Abdominal fullness Abdominal bloating Early satiety 1 Occurrences starting 08/29/2024 until 08/29/2025 [facility] Work Phone: Comment on above: 1 Occurrences starting 08/29/2024 until 08/29/2025 End: 09-29-2025 EGD DIAGNOSTIC EGD DIAGNOSTIC Endoscopy Routine Nausea Abdominal bloating Abdominal fullness Early satiety Diarrhea, unspecified type 1 Occurrences starting 09/29/2024 until 09/29/2025 [facility] Comment on above: 1 Occurrences starting 09/29/2024 until 09/29/2025 ENTERIC BACTERIAL PA SHARYN BY PCR ENTERIC BACTERIAL PANEL BY PCR Lab Routine Diarrhea, unspecified type Ordered: 02/17/2022 [facility] Work Phone: Comment on above: Ordered: 02/17/2022 ENTERIC BACTERIAL PA SHARYN BY PCR ENTERIC BACTERIAL PANEL BY PCR Lab Routine Diarrhea, unspecified type Ordered: 05/09/2022 [facility] Work Phone: Comment on above: Ordered: 05/09/2022 ENTERIC BACTERIAL PA SHARYN BY PCR ENTERIC BACTERIAL PANEL BY PCR Lab Routine Diarrhea, unspecified type Ordered: 03/11/2024 [facility] Comment on above: Ordered: 03/11/2024 FECAL FAT STOOL, QUANT FECAL FAT STOOL, QUANT Lab Routine Diarrhea, unspecified type Bloating Weight gain Ordered: 11/21/2021 [facility] Work Phone: Comment on above: Ordered: 11/21/2021 FECAL LACTOFERRIN/LEUKOCYTES FECAL LACTOFERRIN/LEUKOCYTES Lab Routine Functional diarrhea Fat malabsorption Ordered: 12/13/2021 [facility] Work Phone: Comment on above: Ordered: 12/13/2021 End: 08-29-2025 Flexible sigmoidoscopy study COLONOSCOPY DIAGNOSTIC Endoscopy Routine Nausea Abdominal fullness Abdominal bloating Early satiety Diarrhea, unspecified type 1 Occurrences starting 08/29/2024 until 08/29/2025 [facility] Comment on above: 1 Occurrences starting 08/29/2024 until 08/29/2025 End: 09-29-2025 Flexible sigmoidoscopy study COLONOSCOPY DIAGNOSTIC Endoscopy Routine Nausea Abdominal bloating Abdominal fullness Early satiety Diarrhea, unspecified type 1 Occurrences starting 09/29/2024 until 09/29/2025 [facility] Work Phone: Comment on above: 1 Occurrences starting 09/29/2024 until 09/29/2025 Giardia lamblia+Cryptosporidium sp Ag [Presence] in Stool by Immunoassay CRYPTOSPORIDIUM AND GIARDIA ANTIGENS BY EIA Microbiology Routine Diarrhea, unspecified type Ordered: 05/09/2022 [facility] Work Phone: Comment on above: Ordered: 05/09/2022 Gliadin peptide IgA Ab [Units/volume] in Serum [facility] Gliadin peptide IgG Ab [Units/volume] in Serum [facility] Hemoglobin.gastroint estina l.lower [Presence] in Stool by Immunoassay FECAL OCCULT BLOOD TEST Lab Routine Diarrhea, unspecified type 02/19/2022 1:26 PM EDT [facility] Work Phone: Laminaribioside IgG Ab [Units/volume] in Serum or Plasma by Immunoassay [facility] Mannobioside IgG Ab [Units/volume] in Serum or Plasma by Immunoassay [facility] Measurement of funga l antibody [facility] Measurement of immunoglobulin A in serum specimen [facility] Neutrophil cytoplasm ic Ab.classic [Units/volume] in Serum [facility] Neutrophil cytoplasm ic Ab.perinuclear.atypical [Titer] in Serum by Immunofluorescence [facility] End: 08-23-2025 NM Biliary ducts and Gallbladder Views for patency of biliary structures and ejection fraction W sincalide and W radionuclide IV NM HEPATOBILIARY W EF AND/OR RX Radiology Routine Nausea Weight gain Overeating Frequent bowel movements 1 Occurrences starting 07/24/2024 until 08/23/2025 [facility] Comment on above: 1 Occurrences starting 07/24/2024 until 08/23/2025 Ova and parasites identified in Unspecified specimen by Light microscopy OVA + PARA MICROSCOPIC Microbiology Routine Diarrhea, unspecified type Ordered: 02/17/2022 [facility] Work Phone: Comment on above: Ordered: 02/17/2022 Ova OR parasites identification [facility] P-ANCA measurement [facility] PANC ELASTASE, FECAL PANC ELASTA SE, FECAL Lab Routine Functional diarrhea Fat malabsorption Ordered: 12/13/2021 [facility] Work Phone: Comment on above: Ordered: 12/13/2021 PANC ELASTASE, FECAL PANC ELASTA SE, FECAL Lab Routine Diarrhea, unspecified type Ordered: 05/09/2022 [facility] Work Phone: Comment on above: Ordered: 05/09/2022 Patient Education [facility] Work Phone: Patient referral [facility] Work Phone: End: 05-26-2023 PT panel - Platelet poor plasma by Coagulation assay PROTHROMBIN TIME/PT 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 Other pulmonary embolism without acute cor pulmonale, unspecified chronicity (HCC) 2x per week for 10 Occurrences starting 05/26/2022 until 05/26/2023 [facility] Work Phone: Comment on above: 2x per week for 10 Occurrences starting 05/26/2022 until 05/26/2023 End: 04-17-2026 SPIROMETRY - BASELINE AND POST DILATOR SPIROMETRY - BASELINE AND POST DILATOR PFT Routine ARNDT (dyspnea on exertion) Borderline low oxygen saturation level 1 Occurrences starting 03/18/2025 until 04/17/2026 [facility] Comment on above: 1 Occurrences starting 03/18/2025 until 04/17/2026 Tissue Pathology bio psy report [facility] Work Phone: Comment on above: Release Upon Ordering for 1 Occurrences starting 09/30/2024, 1 completed Tissue transglutamin ase IgA Ab [Units/volume] in Serum [facility] End: 08-23-2025 US Abdomen RUQ US ABD RIGHT UPPER QUADRANT Radiology Routine Nausea Weight gain Overeating Frequent bowel movements 1 Occurrences starting 07/24/2024 until 08/23/2025 [facility] Comment on above: 1 Occurrences starting 07/24/2024 until 08/23/2025 US Abdomen RUQ US ABD RIGHT UPP ER QUADRANT Radiology Routine Nausea Weight gain Overeating Frequent bowel movements 07/28/2024 10:30 AM EST [facility] Work Phone: End: 02-14-2024 US LEG VEIN DVT UNL VAS LAB US LEG VEIN DVT UNL VAS LAB Vascular Lab STAT Pain 1 Occurrences starting 02/13/2023 until 02/14/2024 [facility] Work Phone: Comment on above: 1 Occurrences starting 02/13/2023 until 02/14/2024 End: 06-10-2025 US Lower extremity veins - bilateral US LEG VEIN DVT [facility] Vascular Lab STAT Cellulitis of lower extremity, unspecified laterality Bilateral leg edema 1 Occurrences starting 06/10/2024 until 06/10/2025 [facility] Work Phone: Comment on above: 1 Occurrences starting 06/10/2024 until 06/10/2025 End: 07-24-2025 US.doppler Extremity arteries - bilateral for physiologic artery study PVR ANK PRESS [facility] Vascular Lab Routine Bilateral leg edema Bilateral leg pain 1 Occurrences starting 07/24/2024 until 07/24/2025 [facility] Comment on above: 1 Occurrences starting 07/24/2024 until 07/24/2025 [facility] Immunizations Immunization Date Immunization Notes Care Provider Fa cili 05-22-2022 pneumococcal (PCV20) vaccine, 20 valent (PREVNAR 20) Hari Oneill DO Work Phone: [facility] Work Phone: 05-22-2022 pneumococcal Conjuga te, unspecified formulation Hari Oneill DO Work Phone: [facility] Work Phone: 12-08-2021 tetanus toxoid, redu estella diphtheria toxoid, and acellular pertussis vaccine, adsorbed Dr. Hari Oneill Work Phone: [facility] 01-05-2021 Twyla (Moderna) Dr. Hari Oneill DO Work Phone: [facility] 12-08-2020 Twyla (Moderna) Dr. Hari Oneill DO Work Phone: [facility] 05-07-2019 influenza virus vaccine, unspecified formulation Xavi Xie MD Work Phone: [facility] 04-02-2018 influenza, injectabl e, quadrivalent, preservative free Hari Oneill DO Work Phone: [facility] 05-21-2017 influenza, injectabl e, quadrivalent, contains preservative Hari Oneill DO Work Phone: [facility] Work Phone: 05-21-2017 influenza, injectabl e, quadrivalent, preservative free Dr. Hari Oneill DO Work Phone: [facility] 05-15-2016 influenza, seasonal, injectable Hari Oneill DO Work Phone: [facility] Work Phone: 05-10-2015 influenza, injectabl e, quadrivalent, preservative free Dr. Hari Oneill DO Work Phone: [facility] 05-10-2015 influenza, seasonal, injectable Hari Oneill DO Work Phone: [facility] Work Phone: 07-10-2014 influenza, injectabl e, quadrivalent, preservative free Dr. Hari Oneill DO Work Phone: [facility] 07-10-2014 influenza, seasonal, injectable Hari Oneill DO Work Phone: [facility] Work Phone: 04-07-[address] Hari Oneill Work Phone: [facility] 04-07-2013 influenza, seasonal, injectable, preservative free Tereza Salvador APRN.CNP Work Phone: [facility] 06-01-2000 diphtheria and tetan us toxoids, adsorbed for pediatric use Hari Oneill DO Work Phone: [facility] Work Phone: Payers Date Payer Category Payer Self-pay [id number] 2022 Medicare (Managed Care) [id number]. [id number] 2022 Medicare [id number] 2018 Medicare [id number] 2018 Medicare [id number] [id number] 2014 Medicaid SELF PAY INSURANCE [id number] Unknown [id number] [id number]2 Unknown [id number] 2.16.840.1.082197.3.579.2.462 Unknown [id number] 2.16.840.1.699210.3.579.2.462 Unknown [id number] 2.16.840.1.077813.3.579.2.462 Unknown [id number] 2.16.840.1.739899.3.579.2.462 Unknown [id number] 2.16.840.1.962102.3.579.2.462 Unknown [id number] 2.16.840.1.194832.3.579.2.462 Unknown [id number] 2.16.840.1.377643.3.579.2.462 Unknown [id number] 2.16.840.1.415550.3.579.2.462 Unknown [id number] 2.16.840.1.097070.3.579.2.462 Unknown [id number] 2.16.840.1.705769.3.579.2.462 Unknown [id number] 2.16.840.1.733896.3.579.2.462 Unknown [id number] 2.16.840.1.848006.3.579.2.462 Unknown [id number] 2.16.840.1.626888.3.579.2.462 Unknown [id number] 2.16.840.1.813828.3.579.2.462 Unknown [id number] 2.16.840.1.108612.3.579.2.462 Unknown [id number] 2.16.840.1.218236.3.579.2.462 Unknown [id number] 2.16.840.1.381943.3.579.2.462 Unknown [id number] 2.16.840.1.320335.3.579.2.462 Unknown [id number] 2.16.840.1.464747.3.579.2.462 Unknown [id number] 2.16.840.1.800083.3.579.2.462 Unknown [id number] 2.16.840.1.554362.3.579.2.462 Unknown [id number] 2.16.840.1.703151.3.579.2.462 Unknown [id number] 2.16.840.1.660411.3.579.2.462 Unknown [id number] 2.16.840.1.638015.3.579.2.462 Social History Date Type Detail Facility Start: 03-27-2011 End: 05-22-2022 Tobacco smoking status [facility] Never smoked tobacco [facility] Work Phone: Start: 10-20-2021 End: 08-29-2024 Alcohol intake Current non-drinker of alcohol (finding) [facility] Start: 1955 Sex Assigned At Not on file [facility] Start: 09-25-2020 End: 07-10-2022 Exposure to SARS-CoV-2 (event) Not sure [facility] Start: 12-08-2021 Tobacco smoking stat us SCIS Unknown if ever smoked [facility] Work Phone: Start: 02-08-2021 None [facility] Start: 09-17-2019 Spouse/ Signif icant Other [facility] Start: 02-08-2021 Non-smoker [facility] Start: 1955 Sex Assigned At Male [facility] Start: 03-27-2011 End: 05-22-2022 Tobacco use and exposure Smokeless tobacco non-user [facility] Start: 01-08-2023 End: 02-13-2023 History of Social function [facility] Start: 01-08-2023 End: 02-13-2023 Tobacco use panel [facility] Start: 07-07-2012 Adult Depression Screening Assessment 2 [facility] How hard is it for y ou to pay for the very basics like food, housing, medical care, and heating Not very hard [facility] (I/We) worried oscar er (my/our) food would run out before (I/we) got money to buy more. Never true [facility] In the past 12 month s, was there a time when you were not able to pay the mortgage or rent on time? No [facility] Start: 10-08-2024 End: 03-18-2025 Alcoholic beverage intake Ex-drinker (finding) [facility] Medical Equipment Procedure Code Equipment Code Equipment Origin al Text Equipment Identifier Dates [employer] [place] Product Line (Non Magnetic) - [id number] Start: 01-22-2014 [place] [employer] 25mm - [id number] Start: 01-22-2014 Blank [employer] [place] t Cap Non Magnetic - [id number] Start: 01-22-2014 Electrd Dpth 8ct 0.8x26.5x3.5m - [id number] Start: 01-22-2014 Elctrd Dpth 16ct 0.8x54.5x3.5m - [id number] Start: 01-22-2014 16 [place] Dep[place] Electrode - [id number] Start: 01-22-2014 16 [place] Depthal[employer] Electrode - [id number] Start: 01-22-2014 16 [place] Depthal[employer] Electrode - [id number] Start: 01-22-2014 16 [place] Depthal[employer] Electrode - [id number] Start: 01-22-2014 Elctrd Dpth 10ct 0.8x33.5x3.5m - [id number] Start: 01-22-2014 Elctrd Dpth 12ct 0.8x40.5x3.5m - [id number] Start: 01-22-2014 16 [place] Depthalon Electrode - [id number] Start: 01-22-2014 Port Implantable Power Port 6fr - [id number] Start: 04-11-2012 Comment on above: Description: PowerPo rt [id number] Start: 07-10-2022 End: 04-02-2023 Comment on above: [...] Assessment Result Facility 03-12-2025 Functional status Ambulates [facility] Work Phone: 03-02-2025 Functional status Ambulates [facility] Work Phone: 04-23-2023 Are you deaf, or do you have serious difficulty hearing No 04/23/2023 1:05 PM Nancy Frazier RN No [facility] 04-23-2023 Are you blind, or do you have serious difficulty seeing, even when wearing glasses Yes 04/23/2023 1:05 PM EDT Nancy Seals, DARREN Yes [facility] 04-23-2023 Do you have serious difficulty walking or climbing stairs Yes 04/23/2023 1:05 PM EDT Nancy Seals, DARREN Yes [facility] 04-23-2023 Do you have difficul ty dressing or bathing Yes 04/23/2023 1:05 PM EDT Nancy Seals, DARREN Yes [facility] 04-23-2023 Because of a physica l, mental, or emotional condition, do you have difficulty doing errands alone such as visiting a physician's office or shopping Yes 04/23/2023 1:05 PM EDT Nancy Seals, DARREN Yes [facility] Mental Status Date Assessment Result Facility 03-12-2025 Cognitive function Voice/Name [facility] Work Phone: 03-02-2025 Cognitive function Voice/Name [facility] Work Phone: 04-23-2023 Because of a physica l, mental, or emotional condition, do you have serious difficulty concentrating, remembering, or making decisions Yes 04/23/2023 1:05 PM EDT Nancy Seals, DARREN Yes [facility] Clinical Notes 09-29-2020 to 03-19-2025 Addendum Note - Paulie Geronimo APRN.CORPORATE DEVELOPMENT OFFICER - 03/19/2025 5:24 PM EDTAddendum Note - Paulie Geronimo APRN.CNP - 03/19/2025 5:24 PM EDTGStacey hughes RT(R) - 03/18/2025 2:20 PM EDT Note Date & Type Note Facility 03-19-2025 Note Addended by: PAULIE GERONIMO on: 03/19/2025 05:24 PM Modules accepted: Orders [facility] 03-19-2025 Miscellaneous Notes Addended by: PAULIE [...] Andrade MA ----- Message from Paulie Geronimo APRN.CORPORATE DEVELOPMENT OFFICER sent at 03/18/2025 6:38 PM EDT ----- Please senhd copy of this result attention to the gaseous loops to Dr Boss office, see if he has a follow up scheduled with him and let him know the lungs didn't show any abnormalities on the chest xray. Thank you ----- Message ----- From: Radiology, [place] Sent: 03/18/2025 3:30 PM EDT To: Paulie Geronimo APRN.CORPORATE DEVELOPMENT OFFICER documented in this encounter [facility] 03-19-2025 Telephone encount er Note Pt notified and has follow up with Dr. Singh. Anna Andrade MA [facility] 03-19-2025 Telephone encount er Note Tried to reach pt, no answer and no option to leave message. Will need to try again later. Copy of XR Chest faxed to Dr. Singh's office with attention to gaseous loops. Anna Andrade MA [facility] 03-19-2025 Telephone encount er Note ----- [...] 3:30 PM EDT To: Paulie Geronimo APRN.CNP [facility] 03-18-2025 History of Presen t illness [...] PATIENT PRESENTS WITH AN IMPLANTABLE OR ATTACHED LIQUOR BLENDER: No RADIOLOGY DEPARTMENT: General X-ray: Exam(s) Completed: Chest X-Ray PERIPHERAL IV DATA: Not applicable SIGNED BY: RT Live(R) March 18, 2025 2:05 PM documented in this encounter [facility] 03-18-2025 Paulie Virgen APRN.CNP - 03/18/2025 [...] good medication reconciliation documented in this encounter [facility] 03-18-2025 History of Presen t illness [...] limited mobility. - Attempting to exercise at [employer]; attended once post-surgery per - Appetite described as poor by spouse; eating small meals and snacks to manage nausea. - Enjoys specific foods like gyros and TV dinners. - down 24# since February 10 Hospital records reviewed, when asking patient and about meds not on discharge list or things done there they were not good historians or understand it [facility] 02/27-03/02, then 03/05? 03/09-03/12 Repeat colonoscopy [...] bleeding episodes/ falls Who [facility] for the further evaluation of his dizziness [...] 02/12/2012 EGD ESOPHAGOGASTRODUODENOSCOPY TRANSORAL DIAGNOSTIC 03/27/2012 EGD [facility] inpt ESOPHAGOGASTRODUODENOSCOPY TRANSORAL DIAGNOSTIC 06/04/2012 EGD [...] which included preparing to see the patient, [id number] patient care, completing clinical documentation, obtaining and/or reviewing separately obtained history, performing a medically appropriate examination, counseling and educating the patient/family/caregiver, and ordering medications, tests, or procedures. Extensive review of hospital records. Medication reconciliation attempted. Recording using [employer] software for draft documentation of the visit was discussed with the patient/authorized kiosk 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; all questions welcomed and answered. Patient/authorized kiosk 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 agreed to proceed [1] Social History Tobacco Use Smoking status: Never Smokeless tobacco: Never Vaping Use Vaping status: Never Used Substance Use Topics Alcohol use: Not Currently Drug use: Never documented in this encounter [facility] 03-12-2025 Consult note [facility] 03-12-2025 Discharge summary Note Date/Time March 12, 2025 9:26am [facility] Medical Records Department [address] [place] [address] Discharge Summary 03/12/25 0920 MR#: [id number] Acct: [id number] Name: EDER BREEN Rep #:[id number] : 1955 69 From: Carlton Davis MD PCP: Dr. Hari Oneill, Status:AD M IN Location: [facility] [id number] Providers Date of Admission: 03/08/25 Date of Discharge: 03/12/25 Primary Care Physician: Dr. Hari Oneill, Consultations 03/06/25 07:18 Consult: Gastroenterology Routine Consulting Provider: [facility] Reason for Consult: recurrent diarrhea with [...] general surgery follow-up. There was concern for [place] syndrome at that time. Repeat CT abdomen [...] % (Auto) 67.1, Lymph % (Auto) 20.3, [place]% (Auto) 7.0, Eos % (Auto) 4.9, Baso [...] Self Care Charges/Coding Visit Charges Inpatient E&M: 12615 Disch Hosp >30min 03/12/25 09 <Electronically signed by Carlton Davis MD> Cosigner Signature (if applicable): CC: Dr. Carlton Davis MD; Dr. Hari Oneill DO~ Signed [facility] Work Phone: 1(380) 416-808508-07-2025 Discharge summary [facility] Medical Records Department [address] [place] [address] Discharge Summary 03/12/25 0920 MR#: [id number] Acct: [id number] Name: EDER BREEN Rep #:[id number] : 1955 69 From: Carlton Davis MD PCP: Dr. Hari Oneill, DO Status:AD M IN Location: [facility] [id number] Providers Date of Admission: 03/08/25 Date of Discharge: 03/12/25 Primary Care Physician: Dr. Hari Oneill, DO Consultations 03/06/25 07:18 Consult: Gastroenterology Routine Consulting Provider: [facility] Reason for Consult: recurrent diarrhea with [...] % (Auto) 67.1, Lymph % (Auto) 20.3, [place]% (Auto) 7.0, Eos % (Auto) 4.9, Baso [...] Self Care Charges/Coding Visit Charges Inpatient E&M: 14121 Disch Hosp >30min 03/12/25 0926 Cosigner Signature (if applicable): CC: Dr. Carlton Davis MD; Dr. Hari Oneill DO~ Signed [facility] Progress note Author Luis A Friend [facility] Note Date/Time March 11, 2025 7:0 3pm [facility] Medical Records Department [address] [place] [address] Progress Note 03/11/25 190 MR#: [id number] Acct: [id number] Name: EDER BREEN Rep #:[id number] : 1955 69 From: Luis A Singh DO PCP: Dr. Hari Oneill DO Status:AD M IN Location: [facility] [id number] Progress Note Patient is still complaining of [...] recommendation to follow. Visit Charges Inpatient E&M: 96398 Subs Hosp L3 03/11/251902 <Electronically signed by Luis A Singh DO> Luis A Singh DO Cosigner Signature (if applicable): CC: ~ Signed [facility] Work Phone: 1(280) 862-794408-06-2025 Progress note [facility] Medical Records Department [address] [place] [address] Progress Note 03/11/251900 MR#: [id number] Acct: [id number] Name: EDER BREEN Rep #:[id number] : 1955 69 From: Luis A Singh DO PCP: Dr. Hari Oneill, DO Status:AD M IN Location: [facility] [id number] Progress Note Patient is still complaining of [...] recommendation to follow. Visit Charges Inpatient E&M: 78956 [facility] Hosp 03/11/25 1301 Luis A Friend DO Cosigner Signature (if applicable): CC: ~ Signed [facility]08-06-2025 Progress note Author Carlton Davis [facility] Note Date/Time March 11, 2025 7:2 8am [facility] Medical Records Department [address] [place] [address] Progress Note - Hospitalist 03/11/25 0721 MR#: [id number] Acct: [id number] Name: EDER BREEN Rep #:[id number] : 1955 69 From: Carlton Davis MD PCP: Dr. Hari Oneill, DO Status:AD M IN Location: [place] [address]-1 Reason for Visit Chief Complaint: Persistent abdominal [...] Antibody < 0.2, Sm (Frances) Antibody <0.2, DIETARY INTERNSHIP Antibody <0.2, Scl-70 Scleroderma Ab <0.2, Double [...] % (Auto) 67.9, Lymph % (Auto) 21.4, [place]% (Auto) 5.7, Eos % (Auto) 4.3, Baso [...] documentation,36 Minutes Charges/Coding Visit Charges Inpatient E&M: 38386 Subs Hosp L2 03/11/25 0728 <Electronically signed by Carlton Davis MD> Cosigner Signature (if applicable): CC: ~ Signed [facility] Work Phone: 1(339) 521-206208-06-2025 Progress note [facility] Medical Records Department [address] [place] [address] Progress Note - Hospitalist 03/11/25720 MR#: [id number] Acct: [id number] Name: EDER BREEN Rep #:[id number] : 1955 69 From: Carlton Davis MD PCP: Dr. Hari Oneill, DO Status:AD M IN Location: [place] [address] Reason for Visit Chief Complaint: Persistent abdominal [...] Antibody < 0.2, Sm (Frances) Antibody <0.2, DIETARY INTERNSHIP Antibody <0.2, Scl-70 Scleroderma Ab <0.2, Double [...] % (Auto) 67.9, Lymph % (Auto) 21.4, [place]% (Auto) 5.7, Eos % (Auto) 4.3, Baso [...] general surgery follow-up. There was concern for [place] syndrome at that time. Repeat CT abdomen [...] documentation,36 Minutes Charges/Coding Visit Charges Inpatient E&M: 14216 Subs Hosp L2 03/11/25 0728 Cosigner Signature (if applicable): CC: ~ Signed [facility]08-05-2025 Consult note Author Srinivasa Odonnell [facility] Note Date/Time March 12, 2025 1:4 1pm [facility] Medical Records Department [address] [place] [address] Anesthesia Postop Eval II 03/10/252010 MR#: [id number] Acct: [id number] Name: EDER BREEN Rep #:[id number] : 1955 69 From: Srinivasa Singh PCP: Dr. Hari Oneill, DO Status:AD M IN Y Race: C Location: [place] [address] Anesthesia Postop Eval I Sum Postop Eval [...] MD Cosigner Signature: Date CC: ~ Signed [facility] Work Phone: 1(468) 292-458408-05-2025 Consult note Author Srinivasa Odonnell [facility] Note Date/Time March 10, 2025 6:1 4pm [facility] Medical Records Department [address] [place] [address] Anesthesia Postop Eval I 03/10/251813 MR#: [id number] Acct: [id number] Name: EDER BREEN Rep #:[id number] : 1955 69 From: Srinivasa Singh PCP: Dr. Hari Oneill, DO Status:AD M IN Y Race: C Location: [place] [address] Anesthesia: Postop Eval I Current Vital Signs [...] Odonnell MD> Date _ Srinivasa Odonnell MD [facility] Signature: Date CC: ~ Signed [facility] Work Phone: 1(281) 905-777608-05-2025 Consult note Author Srinivasa Odonnell [facility] Note Date/Time March 10, 2025 4:3 7pm [facility] Medical Records Department [address] [place] [address] Pre-Anesthesia Evaluation 03/10/25 1628 MR#: [id number] Acct: [id number] Name: EDER BREEN Rep #:[id number] : 1955 69 From: Srinivasa Singh PCP: Dr. 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 Hx Hospitalization No 03/19/24 14:05 Any Problems [...] am of surgery - PONV PONV - title insurance 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: PONV - title insurance 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 Female HX of Motion Sickness HX of N/V After Surgery Non-Smoker Duration of Surgery greater than 60 minutes Number of Risk Factors PONV Score Height & Weight Height & Weight: Anesthesia: Height & Weight Height 6 ft 03/10/25 14:42 Weight: 131.496 kg 03/10/25 14:42 Body Mass Index (BMI) 39.3 03/10/25 14:42 Respiratory Assessment Respiratory Assessment - title insurance 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: Respiratory Tract Infection Hx - title insurance 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 Hx Respiratory Tract Infection No 03/09/25 05:31 STOP Sleep Apnea STOP Sleep Apnea - title insurance 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: STOP Sleep Apnea - title insurance 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 Hx Hypertension No 03/06/25 17:10 Hx Sleep [...] Tobacco Use History Tobacco Use History - title insurance 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: Tobacco Use History - title insurance 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 Tobacco Use Non-smoker 02/08/21 10:35 Smoking Status Never smoker 03/06/25 17:10 Hx Tobacco Use No 03/06/25 17:10 Years Smoking Packs Smoked per Day Smoking Cessation Date was within the last 15 years Hx Smoking Cessation Date Hx Smoking Cessation No 03/06/25 17:10 Counseling Hematologic Medial History Hematologic Hx - title insurance 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: 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 Procedure Code(s): --- Professional --- 02495, Colonoscopy, flexible; with biopsy, single or multiple CPT copyright 2021 [employer]. All rights reserved. The codes documented in this report are preliminary and upon meeting specialist review may be revised to meet current compliance requirements. Luis A Singh DO 03/10/2025 6:29:59 PM This report has been signed electronically. Number of Addenda: 0 Note Initiated On: 03/10/2025 5:48 PM 03/10/25 8760 Date _ Luis A Lerner Signature: Date (if indicated) CC: Dr. Hari Oneill DO; Luis A Singh DO ~ Date Dictated: 03/10/251747 Date Transcribed: Hedis Coordinator: ABRAHAM Signed [facility]08-05-2025 Procedure note [facility] Medical Records Department [address] [place] [address] Provation Physician Letter MR#: [id number] Acct: [id number] Name: EDER BREEN Rep #:[id number] : 1955 69 From: Luis A Singh DO PCP: Dr. Hari Oneill DO Status:AD M IN 03/10/2025 Hari Oneill [address] [place] [address] Re : Colonoscopy procedure for Eder Breen [...] ~ Date Dictated: 03/10/25 1748 Date Transcribed: Hedis Coordinator: RF Signed [facility]08-05-2025 Consult note [facility] Medical Records Department [address] [place] [address] Anesthesia Postop Eval I 03/10/251813 MR#: [id number] Acct: [id number] Name: EDER BREEN Rep #:[id number] : 1955 69 From: Srinivasa Singh PCP: Dr. Hari Oneill DO Status:AD M IN Y Race: C Location: [place] [address] Anesthesia: Postop Eval I Current Vital Signs [...] Srinivasa Aceves Signature: Date CC: ~ Signed [facility]08-05-2025 Procedure note [facility] Medical Records Department [address] [place] [address] EGD Report MR#: [id number] Acct: [id number] Name: EDER BREEN Rep #:[id number] : 1955 69 From: Luis A Singh [...] present medications. Procedure Code(s): --- Professional --- 15895, Small intestinal endoscopy, enteroscopy beyond second portion of duodenum, not including ileum; with biopsy, single or multiple CPT copyright 2021 [employer]. All rights reserved. The codes documented in this report are preliminary and upon meeting specialist review may be revised to meet current compliance requirements. Luis A Singh DO 03/10/2025 6:06:58 PM This report has been signed electronically. Number of Addenda: 0 Note Initiated On: 03/10/2025 5:24 PM 03/10/25 1807 Date _ Luis A Singh DO Cosigner Signature: Date (if indicated) CC: Dr. Hari Oneill DO; Luis A Singh DO ~ Date Dictated: 03/10/25 1854 Date Transcribed: Hedis Coordinator: ABRAHAM Signed [facility]08-05-2025 Procedure note [facility] Medical Records Department [address] [place] [id number] Provation Physician Letter MR#: [id number] Acct: [id number] Name: EDER BREEN Rep #:[id number] : 1955 69 From: Luis A Singh DO PCP: Dr. 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: Anesthesia History - title insurance 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 Hx Hospitalization No 03/19/24 14:05 Any Problems [...] am of surgery - PONV PONV - title insurance 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: PONV - title insurance 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 Female HX of Motion Sickness HX of N/V After Surgery Non-Smoker Duration of Surgery greater than 60 minutes Number of Risk Factors PONV Score Height & Weight Height & Weight: Anesthesia: Height & Weight Height 6 ft 03/10/25 14:42 Weight: 131.496 kg 03/10/25 14:42 Body Mass Index (BMI) 39.3 03/10/25 14:42 Respiratory Assessment Respiratory Assessment - title insurance 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: Respiratory Tract Infection Hx - title insurance 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 Hx Respiratory Tract Infection No 03/09/25 05:31 STOP Sleep Apnea STOP Sleep Apnea - title insurance 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: STOP Sleep Apnea - title insurance 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 Hx Hypertension No 03/06/25 17:10 Hx Sleep [...] Tobacco Use History Tobacco Use History - title insurance 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: Tobacco Use History - title insurance 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 Tobacco Use Non-smoker 02/08/21 10:35 Smoking Status Never smoker 03/06/25 17:10 Hx Tobacco Use No 03/06/25 17:10 Years Smoking Packs Smoked per Day Smoking Cessation Date was within the last 15 years Hx Smoking Cessation Date Hx Smoking Cessation No 03/06/25 17:10 Counseling Hematologic Medial History Hematologic Hx - title insurance 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: 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 Hx of Blood Transfusion No 03/06/25 17:10 [...] confused, unrespo /Reproduction History /Reproductive History - title insurance 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: /Reproductive Hx- title insurance 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 Hx Now Gestational Age (in weeks): EDC: [...] MD Cosigner Signature: Date CC: ~ Signed [facility]08-05-2025 Progress note Author Carlton Davis [facility] Note Date/Time March 10, 2025 7:4 6am [facility] Medical Records Department [address] [place] [address] Progress Note - Hospitalist 03/10/25 0740 MR#: [id number] Acct: [id number] Name: EDER BREEN Rep #:[id number] : 1955 69 From: Carlton Davis MD PCP: Dr. Hari Oneill, DO Status:AD M IN Location: [place] [address]-1 Reason for Visit Chief Complaint: Persistent abdominal [...] general surgery follow-up. There was concern for [place] syndrome at that time. Repeat CT abdomen [...] documentation,38 Minutes Charges/Coding Visit Charges Inpatient E&M: 04837 Subs Hosp L2 03/10/25 5908 <Electronically signed by Carlton Davis MD> Cosigner Signature (if applicable): CC: ~ Signed [facility] Work Phone: 1(281) 322-356408-05-2025 Progress note [facility] Medical Records Department [address] [place] [address] Progress Note - Hospitalist 03/10/25739 MR#: [id number] Acct: [id number] Name: EDER BREEN Rep #:[id number] : 1955 69 From: Carlton Davis MD PCP: Dr. Hari Oneill, DO Status:AD M IN Location: [place] [address]1 Reason for Visit Chief Complaint: Persistent abdominal [...] 188, MPV 9.1, Sodium 139, Potassium 3.4, [id number], Carbon Dioxide 21.0, Anion Gap 12,BUN 10, [...] documentation,38 Minutes Charges/Coding Visit Charges Inpatient E&M: 71549 Subs Hosp L2 03/10/25 0746 Cosigner Signature (if applicable): CC: ~ Signed [facility]08-04-2025 Progress note Author Luis A Singh [facility] Note Date/Time March 09, 2025 7:0 2pm [facility] Medical Records Department [address] [place] [address] Progress Note 03/09/25 1900 MR#: [id number] Acct: [id number] Name: EDER BREEN Rep #:[id number] : 1955 69 From: Luis A Singh DO PCP: Dr. Hari Oneill, DO Status:AD M IN Location: [address] Progress Note Patient was not able [...] EGDand colonoscopy tomorrow. Visit Charges Inpatient E&M: 50847 Subs Hosp 03/09/251901 <Electronically signed by Luis A Singh DO> Luis A Singh DO Cosigner Signature (if applicable): CC: ~ Signed [facility] Work Phone: 1(117) [phone] Progress note [facility] Medical Records Department [address] [place] [address] Progress Note 03/09/251899 MR#: [id number] Acct: [id number] Name: EDER BREEN Rep #:[id number] : 1955 69 From: Luis A Singh DO PCP: Dr. Hari Oneill, DO Status:AD M IN Location: [place] [address] Progress Note Patient was not able to [...] EGDand colonoscopy tomorrow. Visit Charges Inpatient E&M: 57993 [facility] Hosp 03/09/25 190 [facility] Friend DO Cosigner Signature (if applicable): CC: ~ Signed [facility]08-04-2025 Progress note Author Duncan Rashid [facility] Note Date/Time March 09, 2025 3:5 9pm [facility] Medical Records Department [address] [place] [address] Progress Note - Hospitalist 03/09/25 1053 MR#: [id number] Acct: [id number] Name: EDER BREEN Rep #:[id number] : 1955 69 From: Duncan espinoza DO PCP: Dr. Hari Oneill, DO Status:AD M IN Location: [place] [address] Reason for Visit Chief Complaint: Persistent abdominal [...] % (Auto) 64.4, Lymph % (Auto) 23.8, [place]% (Auto) 6.7, Eos % (Auto) 4.3, Baso [...] is a 69-year-old male who presented to [facility] ED on 03/05/2025 with persistent abdominal [...] 35 minutes. Charges/Coding Visit Charges Inpatient E&M: 07377 Subs Hosp L2 03/09/25 1552 <Electronically signed by Duncan Rashid DO> Cosigner Signature (if applicable): CC: ~ Signed [facility] Work Phone: 1(412) 293-803508-04-2025 Progress note [facility] Medical Records Department [address] [place] [address] Progress Note - Hospitalist 03/09/25 1053 MR#: [id number] Acct: [id number] Name: EDER BREEN Rep #:[id number] : 1955 69 From: Duncan espinoza DO PCP: Dr. Hari Oneill, DO Status:AD M IN Location: [place]3 NB933-4 Reason for Visit Chief Complaint: Persistent abdominal [...] % (Auto) 64.4, Lymph % (Auto) 23.8, [place]% (Auto) 6.7, Eos % (Auto) 4.3, Baso [...] Bilirubin 0.40, AST 20, ALT 16, Alkaline [id number], Total Protein 6.4, Albumin 4.0, Globulin 2.3, [...] is a 69-year-old male who presented to [facility] ED on 03/05/2025 with persistent abdominal pain with diarrhea and weakness. 1. Persistent abdominal pain with distention and diarrhea ? GI following. Recent hospitalization here, GI and general surgery follow-up. There was concern for [place] syndrome at that time. Repeat CT abdomen [...] 35 minutes. Charges/Coding Visit Charges Inpatient E&M: 91433 Subs Hosp L2 03/09/25 4221 Cosigner Signature (if applicable): CC: ~ Signed [facility]08-04-2025 Telephone encounter Note* Telephone Encounter - La London RN - 03/09/2025 1:18 PM EDT [facility] reports pt requested a refill on Flomax online. Appears [facility] prescribed this medication. Pt would need to f/u with pcp. Left vm for pt to return call to triage nurse. [facility]08-04-2025 Miscellaneous Notes* Telephone Encounter - La London RN - 03/09/2025 1:18 PM EDT [facility] reports pt requested a refill on Flomax online. Appears [facility] prescribed this medication. Pt would need to f/u with pcp. Left vm for pt to return call to triage nurse. [facility] Progress note Author Danae Stanton [facility] Note Date/Time March 08, 2025 2:2 1pm [facility] Medical Records Department [address] [place] [address] Progress Note 03/08/25 0951 MR#: [id number] Acct: [id number] Name: EDER BREEN Rep #:[id number] : 1955 69 From: Danae Stanton MD PCP: Dr. Hari Oneill, DO Status:URBANO DICKSON Location: [place]3 QI083-6 Subjective Subjective Patient seen and examined. He [...] % (Auto) 66.8, Lymph % (Auto) 21.2, [place]% (Auto) 7.2, Eos % (Auto) 4.0, Baso [...] KIMMIE-1 Antibody TNP, Sm (Frances) Antibody TNP, DIETARY INTERNSHIP Antibody TNP, Scl-70 Scleroderma Ab TNP, Antichromatin [...] on board. There was concern for possible [place] syndrome then. He was started on a [...] coumadin today Charges/Coding Visit Charges Inpatient E&M: 65989 Subs Hosp L2 03/08/25 1421 <Electronically signed by Danae Stanton MD> Danae Stanton MD Cosigner Signature (if applicable): CC: ~ Signed [facility] Work Phone: 1(966) 843-564308-03-2025 Progress note [facility] Medical Records Department [address] [place] [address] Progress Note 03/08/25 0951 MR#: [id number] Acct: [id number] Name: EDER BREEN Rep #:[id number] : 1955 69 From: Danae Stanton MD PCP: Dr. Hari Oneill, DO Status:AD M [facility] Location: [place] BH410-3 Subjective Subjective Patient seen and examined. He [...] Neut% (Auto) 66.8, Lymph % (Auto) 21.2, [place]% (Auto) 7.2, Eos % (Auto) 4.0, Baso [...] KIMMIE-1 Antibody TNP, Sm (Frances) Antibody TNP, DIETARY INTERNSHIP Antibody TNP, Scl-70 Scleroderma Ab TNP, Antichromatin [...] coumadin today Charges/Coding Visit Charges Inpatient E&M: 29094 Subs Hosp L2 03/08/25 1421 Danae Stanton MD Cosigner Signature (if applicable): CC: ~ Signed [facility]08-02-2025 Progress note Author Luis A Friend [facility] Note Date/Time March 07, 2025 9:5 6pm [facility] Medical Records Department [address] [place] [address] Progress Note 03/07/252154 MR#: [id number] Acct: [id number] Name: EDER BREEN Rep #:[id number] : 1955 69 From: Luis A Singh DO PCP: Dr. Hari Oneill, DO Status:AD M [facility] Location: [place]3 QM260-1 Progress Note Patient still complains of abdominal [...] colonoscopy on 03/09/2025. Visit Charges Inpatient E&M: 29677 Subs Hosp L3 03/07/252155 <Electronically signed by Luis A Singh DO> Luis A Singh DO Cosigner Signature (if applicable): CC: ~ Signed [facility] Work Phone: 1(584) 906-246708-02-2025 Progress note [facility] Medical Records Department [address] [place] [address] Progress Note 03/07/252154 MR#: [id number] Acct: [id number] Name: EDER BREEN Rep #:[id number] : 1955 69 From: Luis A Singh DO PCP: Dr. Hari Oneill, DO Status:AD M [facility] Location: [place] HI328-4 Progress Note Patient still complains of abdominal [...] colonoscopy on 03/09/2025. Visit Charges Inpatient E&M: 39856 Subs Hosp 03/07/25 2156 Luis A Friend DO Cosigner Signature (if applicable): CC: ~ Signed [facility]08-02-2025 Progress note Author Danae Stanton [facility] Note Date/Time March 07, 2025 3:1 1pm [facility] Medical Records Department [address] [place] [address] Progress Note 03/07/25 1058 MR#: [id number] Acct: [id number] Name: EDER BREEN Rep #:[id number] : 1955 69 From: Danae Stanton MD PCP: Dr. Hari Oneill, DO Status:URBANO Cruz [facility] Location: [place] [address] Subjective Subjective Patient seen and examined. He [...] % (Auto) 58.5, Lymph % (Auto) 26.8, [place]% (Auto) 9.0, Eos % (Auto) 4.6, Baso [...] on board. There was concern for possible [place] syndrome then. He was started on a [...] pending today Charges/Coding Visit Charges Inpatient E&M: 69588 Subs Hosp L2 03/07/25 1448 <Electronically signed by Danae Stanton MD> Danae Stanton MD Cosigner Signature (if applicable): CC: ~ Signed ADDENDUM by Dr. Danae Stanton MD on 03/07/25 at 1511 Addendum Patient's Atiya Breen ([phone]) updated by phone at 3:09pm that GI planning on doing an upper and lower scope on Sunday. Her questions were answered and she was reassured. 03/07/25 1511 <Electronically signed by Danae cruz MD> Date _ Danae Stanton MD Cosigner Signature (if applicable): Date cc: ~* Signed [facility] Work Phone: 1(855) 641-996008-02-2025 Progress note [facility] Medical Records Department [address] [place] [address] Progress Note 08/02/25 1058 MR#: [id number] Acct: [id number] Name: EDER BREEN Rep #:[id number] : 1955 69 From: Danae Stanton MD PCP: Dr. Hari Oneill, DO Status:AD M [facility] Location: [place] [address] Subjective Subjective Patient seen and examined. He [...] % (Auto) 58.5, Lymph % (Auto) 26.8, [place]% (Auto) 9.0, Eos % (Auto) 4.6, Baso [...] on board. There was concern for possible [place] syndrome then. He was started on a [...] pending today Charges/Coding Visit Charges Inpatient E&M: 08629 Subs Hosp L2 03/07/25 1508 Danae Stanton MD Cosigner Signature (if applicable): CC: ~ Signed ADDENDUM by Dr. Danae Stanton MD on 03/07/25 at 1511 Addendum Patient's Atiya Breen ([phone]) updated by phone at 3:09pm that GI planning on doing an upper and lower scope on Sunday. Her questions were answered and she was reassured. 03/07/25 1511 m > Date _ Danae Stanton MD Cosigner Signature (if applicable): Date cc: ~* Signed [facility]08-01-2025 Consult note Author Luis A Singh [facility] Note Date/Time March 06, 2025 6:1 8pm [facility] Medical Records Department [address] [place] [address] Consultation - GI 03/06/25 1802 MR#: [id number] Acct: [id number] Name: EDER BREEN Rep #:[id number] : 1955 69 From: Luis A Snigh DO PCP: Dr. Hari Oneill, DO Status:URBANO DICKSON Location: [place] [address] HPI Consult Data Date of Consult: 03/06/25 [...] no history of portal hypertension or cirrhosis. [facility] Medical History Seizures Loss of one eye [...] mesenteric veins Charges/Coding Visit Charges Inpatient E&M: 09043 Init Hosp L3 03/06/251817 <Electronically signed by Luis A Singh DO> Cosigner Signature (if applicable): CC: Dr. Hari Oneill DO~ Signed [facility] Work Phone: 1(553) 299-730908-01-2025 Progress note Author Danae Stanton [facility] Note Date/Time March 06, 2025 4:2 9pm [facility] Medical Records Department [address] [place] [address] Progress Note 03/06/25 1233 MR#: [id number] Acct: [id number] Name: EDER BREEN Rep #:[id number] : 1955 69 From: Danae Stanton MD PCP: Dr. Hari Oneill, DO Status:AD M [place] Location: [place] QC736-0 Subjective Subjective Patient seen and examined with [...] the mesentery. This is stable. Reading Location: [id number] Gallbladder Ultrasound 03/05/25 13:40 IMPRESSION: Solitary gallstone in the neck of the gallbladder. Hepatomegaly and fatty infiltration of the liver. Reading Location: [facility] Physical Exam Const alert, oriented x3 and [...] on Coumadin. Charges/Coding Visit Charges Inpatient E&M: 06793 Subs Hosp L2 03/06/25 1629 <Electronically signed by Danae Stanton MD> Danae Stanton MD Cosigner Signature (if applicable): CC: ~ Signed [facility] Work Phone: 1(313) 977-684208-01-2025 Consult note [facility] Medical Records Department [address] [place] [address] Consultation - GI 03/06/25 1802 MR#: [id number] Acct: [id number] Name: EDER BREEN Rep #:[id number] : 1955 69 From: Luis A Friend DO PCP: Dr. Hari Oneill DO Status:AD La DICKSON Location: [place]3 ZT121-9 HPI Consult Data Date of Consult: 03/06/25 [...] no history of portal hypertension or cirrhosis. [facility] Medical History Seizures Loss of one eye [...] mesenteric veins Charges/Coding Visit Charges Inpatient E&M: 61035 Init Hosp L3 03/06/25 1818 Cosigner Signature (if applicable): CC: Dr. Hari Oneill, ~ Signed [facility]08-01-2025 Progress note [facility] Medical Records Department [address] [place] [address] Progress Note 03/06/25 1233 MR#: [id number] Acct: [id number] Name: EDER BREEN Rep #:[id number] : 1955 69 From: Danae Stanton MD PCP: Dr. Hari Oneill DO Status:AD M [place] Location: [place] TZ246-2 Subjective Subjective Patient seen and examined with [...] the mesentery. This is stable. Reading Location: [id number] Gallbladder Ultrasound 03/05/25 13:40 IMPRESSION: Solitary gallstone in the neck of the gallbladder. Hepatomegaly and fatty infiltration of the liver. Reading Location: [id number] Physical Exam Const alert, oriented x3 and [...] on board. There was concern for possible [place] syndrome then. He was started on a [...] on Coumadin. Charges/Coding Visit Charges Inpatient E&M: 80558 Subs Hosp L2 03/06/25 1629 Danae Stanton MD Cosigner Signature (if applicable): CC: ~ Signed [facility]08-01-2025 History and physical note Author Duncan Rashid [facility] Note Date/Time March 05, 2025 10:0 0pm [facility] Medical Records Department [address] [place] [address] H&P Exam - Hospitalist 03/05/25 1536 MR#: [id number] Acct: [id number] Name: EDER BREEN Rep #:[id number] : 1955 69 From: Duncan espinoza DO PCP: Dr. Hari Oneill, DO Status:AD M [facility] Location: [place] [address] HPI - General General Date of Admission: 03/05/25 Date of Service: 03/05/25 Chief Complaint: Persistent abdominal pain with diarrhea and weakness HPI Narrative EDER BREEN, is a 69 M who presented to [facility] ED on 03/05/2025 with persistent abdominal [...] breath. Will be admitted for further management. [facility] Medical History Seizures Loss of one eye [...] 73.3 H, Lymph % (Auto) 15.9 L, [place] % (Auto) 7.0, Eos % (Auto) 3.2, [...] Clarity Clear, Urine pH 7.0, Ur Specific [place] 1.005, Urine Protein Negative, Urine Glucose (UA) [...] the mesentery. This is stable. Reading Location: [id number] Gallbladder Ultrasound 03/05/25 13:40 IMPRESSION: Solitary gallstone in the neck of the gallbladder. Hepatomegaly and fatty infiltration of the liver. Reading Location: [id number] Assessment & Plan Assessment/Plan (1) Abdominal pain: (2) Abdominal distension: PLAN: Plan Patient is a 69-year-old male who presented to [facility] ED on 03/05/2025 with persistent abdominal pain with diarrhea and weakness. 1. Persistent abdominal pain and distention with diarrhea ? Admit under observation status to [facility]. Recently hospitalized here and GI and surgery [...] 75 minutes. Charges/Coding Visit Charges Inpatient E&M: 84747 Init Hosp L3 03/05/25 2200 <Electronically signed by Duncan Rashid DO> Cosigner Signature (if applicable): CC: Dr. Duncan Rashid DO; Dr. Hari Oneill DO~ Signed [facility] Work Phone: 1(647) 912-563307-31-2025 History and physical note [facility] Medical Records Department [address] [place] [address] H&P Exam - Hospitalist 03/05/25 1536 MR#: [id number] Acct: [id number] Name: EDER BREEN Rep #:[id number] : 1955 69 From: Duncan espinoza DO PCP: Dr. Hari Oneill DO Status:AD M [facility] Location: [facility] ED081-2 HPI - General General Date of Admission: 03/05/25 Date of Service: 03/05/25 Chief Complaint: Persistent abdominal pain with diarrhea and weakness HPI Narrative EDER BREEN, is a 69 M who presented to [facility] ED on 03/05/2025 with persistent abdominal [...] or small bowel obstruction. GI noted that [place] syndrome (acute colonic pseudoobstruction) was a strong [...] breath. Will be admitted for further management. [facility] Medical History Seizures Loss of one eye [...] 73.3 H, Lymph % (Auto) 15.9 L, [place] % (Auto) 7.0, Eos % (Auto) 3.2, [...] Clarity Clear, Urine pH 7.0, Ur Specific [place] 1.005, Urine Protein Negative, Urine Glucose (UA) [...] the mesentery. This is stable. Reading Location: [id number] Gallbladder Ultrasound 03/05/25 13:40 IMPRESSION: Solitary gallstone in the neck of the gallbladder. Hepatomegaly and fatty infiltration of the liver. Reading Location: [id number] Assessment & Plan Assessment/Plan (1) Abdominal pain: (2) Abdominal distension: PLAN: Plan Patient is a 69-year-old male who presented to [facility] ED on 03/05/2025 with persistent abdominal pain with diarrhea and weakness. 1. Persistent abdominal pain and distention with diarrhea ? Admit under observation status to [facility]. Recently hospitalized here and GI and surgery [...] 75 minutes. Charges/Coding Visit Charges Inpatient E&M: 38678 Init Hosp L3 03/05/25 2200 Cosigner Signature (if applicable): CC: Dr. Duncan Rashid, ; Dr. Hari Oneill, ~ Signed [facility]07-31-2025 Discharge summary Author Rustam Warren [facility] Note Date/Time March 05, 2025 3:44 pm [facility] Medical Records Department [address] [place] [address] Emergency Department Summary 03/05/25 MR#: [id number] Acct: [id number] Name: EDER BREEN Rep #:[id number] : 1955 69 From: Rustam Warren MD [...] because he had not been feeling well. [facility] Medical History Seizures Loss of one eye [...] 73.3 H Lymph % (Auto) 15.9 L [place] % (Auto) 7.0 Eos % (Auto) 3.2 [...] Clarity Clear Urine pH 7.0 Ur Specific [place] 1.005 Urine Protein Negative Urine Glucose (UA) [...] the mesentery. This is stable. Reading Location: [facility] Gallbladder Ultrasound 03/05/25 13:40 IMPRESSION: Solitary gallstone in the neck of the gallbladder. Hepatomegaly and fatty infiltration of the liver. Reading Location: [facility] Management Discussion w/another healthcare provider: Hospitalist (Dr. Rashid) Discharge Plan Dx/Rx/DC Orders Clinical Impression: Hyponatremia, Generalized weakness, Gallstone Disposition Disposition: Acute Care Hospital [facility] What to do if you have Problems For any increased pain, shortness of breath, bleeding, nausea or vomiting, chestpain, or any unexpected problems, contact your Primary Care Provider. Call [facility] ([phone]) or report to the closest Emergency Room. Call 911 if necessary. 03/05/25 1544 <Electronically signed by Rustam Warren MD> Cosigner Signature (if applicable): CC: Dr. Hari Oneill, ~ Signed [facility] Work Phone: 1([phone]) 158-157807-31-2025 Discharge summary [facility] Medical Records Department [address] [place] [address] Emergency Department Summary 03/05/25 MR#: [id number] Acct: [id number] Name: EDER BREEN Rep #:[id number] : 1955 69 From: Rustam Warren MD [...] because he had not been feeling well. [facility] Medical History Seizures Loss of one eye [...] 73.3 H Lymph % (Auto) 15.9 L [place] % (Auto) 7.0 Eos % (Auto) 3.2 [...] Clarity Clear Urine pH 7.0 Ur Specific [place] 1.005 Urine Protein Negative Urine Glucose (UA) [...] the mesentery. This is stable. Reading Location: [facility] Gallbladder Ultrasound 03/05/25 13:40 IMPRESSION: Solitary gallstone in the neck of the gallbladder. Hepatomegaly and fatty infiltration of the liver. Reading Location: [facility] Management Discussion w/another healthcare provider: Hospitalist (Dr. Rashid) Discharge Plan Dx/Rx/DC Orders Clinical Impression: Hyponatremia, Generalized weakness, Gallstone Disposition Disposition: Acute Care Hospital [facility] What to do if you have Problems For any increased pain, shortness of breath, bleeding, nausea or vomiting, chestpain, or any unexpected problems, contact your Primary Care Provider. Call [facility] ([phone]) or report tothe closest Emergency Room. Call 911 if necessary. 03/05/25 1544 Cosigner Signature (if applicable): CC: Dr. Hari Oneill DO ~ Signed [facility]07-31-2025 Radiology Diagnostic study note [facility] Imaging Services [address] [place] [place] [address] Gallbladder MR#: [id number] Acct: [id number] Name: EDER BREEN Rep #: [id number] : 1955 M 69 From: Hair Moreno MD PCP: Dr. Hari Oneill DO Status: RE G ER Study:Gallbladder Date of Exam: 03/05/25 Exam# [id number] Ordering Dr: Rustam Warren MD PROCEDURE: GALLBLADDER [...] fatty infiltration of the liver. Reading Location: [id number] CC: Dr. Rustam Warren MD; Dr. Hari Oneill DO ~ Hedis Coordinator: Signed [facility]07-31-2025 Discharge summary Author Rustam Warren [facility] Note Date/Time March 05, 2025 3:44 pm [facility] Medical Records Department [address] [place] [address] Emergency Department Summary 03/05/25 MR#: [id number] Acct: [id number] Name: EDER BREEN Rep #:[id number] : 1955 69 From: Rustam Warren MD [...] because he had not been feeling well. [facility] Medical History Seizures Loss of one eye [...] 73.3 H Lymph % (Auto) 15.9 L [place] % (Auto) 7.0 Eos % (Auto) 3.2 [...] Clarity Clear Urine pH 7.0 Ur Specific [place] 1.005 Urine Protein Negative Urine Glucose (UA) [...] the mesentery. This is stable. Reading Location: [id number] Gallbladder Ultrasound 03/05/25 13:40 IMPRESSION: Solitary gallstone in the neck of the gallbladder. Hepatomegaly and fatty infiltration of the liver. Reading Location: [id number]-M Management Discussion w/another healthcare provider: Hospitalist (Dr. Rashid) Discharge Plan Dx/Rx/DC Orders Clinical Impression: Hyponatremia, Generalized weakness, Gallstone [facility] What to do if you have Problems For any increased pain, shortness of breath, bleeding, nausea or vomiting, chestpain, or any unexpected problems, contact your Primary Care Provider. Call [facility] ([phone]) or report to the closest Emergency Room. Call 911 if necessary. 03/05/25 1544 <Electronically signed by Rustam Warren MD> Cosigner Signature (if applicable): CC: Dr. Hari Oneill DO ~ Signed [facility] Work Phone: 1(570) 339-512907-31-2025 Radiology Diagnostic study note [facility] Imaging Services [address] [place], [place] [address] Abdomen/Pelvis W IV Cont ONLY MR#: [id number] Acct: [id number] Name: EDER BREEN Rep #: [id number] : 1955 M 69 From: Hair Moreno MD PCP: Dr. Hari Oneill DO Status: RE G ER Study:Abdomen/Pelvis W IV Cont ONLY Date of E xam: 03/05/25 Exam# [id number] Ordering Dr: Rustam Warren MD PROCEDURE: ABDOMEN/PELVIS [...] the mesentery. This is stable. Reading Location: [id number] CC: Dr. Rustam Warren MD; Dr. Hari Oneill, DO ~ Hedis Coordinator: Signed [facility]07-30-2025 Instructions* Patient Instructions* Beatriz Moncada MD [...] supplement or probiotic, and you can use siyn-tpg-occnmyk Imodium as needed to manage diarrhea. - If nausea or vomiting returns and you d like medication for it, please call our office. - A social media strategist will contact you to discuss food assistance or meal delivery programs to help with grocery access. - Call Dr. Singh s office to schedule your GI follow-up about two weeks after discharge. - Keep your appointment with Dr. Oneill on the of next month. [facility] History of Present illness Narrative* Beatriz Moncada MD - 03/04/2025 2:04 PM EDT Chief Complaint Patient presents with: Hospital F/U: [facility] 02/27-03/02/25. Went to ER initially for abd pain, nausea and diarrhea. Dx Hyponatremia and Hypokalemia. Urge Urinary Incontinence Recording using [employer] software for draft documentation of the visit was discussed with the patient/authorized kiosk 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; all questions welcomed and answered. Patient/authorized kiosk 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 agreed to proceed HPI Eder Breen is a 69 year old male who presents here today for Above Complaints. Accompanied today by his . Hospital Discharge Follow-Up: - Hospitalized at [facility] from February 27 to . - Admitted [...] GI and general surgery consulted; concern for [place] syndrome. - Made NPO and started on [...] bleeding episodes/ falls Who is transferred from [facility] for the further evaluation of his dizziness [...] 02/12/2012 EGD ESOPHAGOGASTRODUODENOSCOPY TRANSORAL DIAGNOSTIC 03/27/2012 EGD [facility] inpt ESOPHAGOGASTRODUODENOSCOPY TRANSORAL DIAGNOSTIC 06/04/2012 EGD [...] of resources. - Referral to social media strategist for assistance with food resources. I spent a total of 40 minutes on the date of the service which included preparing to see the patient, ekfb-oo-zlrn patient care, completing clinical documentation, obtaining and/or reviewing separately obtained history, performing a medically appropriate examination, counseling and educating the pat ient/family/caregiver, ordering medications, tests, or procedures, independently interpreting results (not separately reported), communicating results to the patient/family/caregiver, and care coordination (not separately reported). Beatriz Moncada MD [facility]-2025 Discharge summary [facility] Medical Records Department [address] [place] [address] Instructions for Home/Discharge Instructions 03/02/25 1328 MR#: [id number] Acct: [id number] Name: EDER BREEN Rep #:[id number] : 1955 69 From: Danae Stanton MD [...] MD; Dr. Yoon Kim MD ~ Signed [facility]07-28-2025 Hospital Discharge instructionsAdditional Instructions [facility]: [facility]: 1(432) 158-862207-28-2025 Discharge summary [facility] Medical Records Department [address] [place] [address] Discharge Summary 03/02/25 1329 MR#: [id number] Acct: [id number] Name: EDER BREEN Rep #:[id number] : 1955 69 From: Danae Stanton MD PCP: Dr. Hari Oneill DO Status:AD IN Location: [place] [address] Providers Date of Admission: 02/27/25 Date of Discharge: 03/02/25 Primary Care Physician: Dr. Hari Oneill DO Consultations 02/27/25 16:00 Consult: Gastroenterology Routine Consulting Provider: [facility] Reason for Consult: abd discomfort, diarrhea, [...] on board and there is concern for [place] syndrome. Patient also liquid diet but we [...] reviewed patient and was concerned about possible [place] syndrome. However, abdominal pain resolved and he [...] Neut% (Auto) 64.6, Lymph % (Auto) 22.2, [place]% (Auto) 8.5, Eos % (Auto) 3.9, Baso [...] am (Appointment is with Dr. Reddy in [place]. Needs to arrive by 1:25 PM for 1:40 PMappointment) FriendLuis A DO [Med Staff - Active Staff] - Within 2 Weeks Disposition Disposition (needs filled in before D/C Order can be placed): Home, Self Care Charges/Coding Visit Charges Inpatient E&M: 99724 Disch Hosp >30min 03/02/25 1350 Cosigner Signature (if applicable): CC: Dr. Hari Oneill DO; Dr. Danae Stanton MD~ Signed [facility]07-28-[facility] Progress note Author Dinah Gibson [facility] Note Date/Time March 02, 2025 8:44 am [facility] Medical Records Department [address] [place] [address] Progress Note - Surgery 03/02/25 0832 MR#: [id number] Acct: [id number] Name: EDER BREEN Rep #:[id number] : 1955 69 From: Dinah CISNEROS PA-C PCP: Dr. Hari Oneill DO Status:AD M IN Location: [place] [address]- Subjective Subjective Patient is evaluated resting comfortably [...] % (Auto) 64.6, Lymph % (Auto) 22.2, [place]% (Auto) 8.5, Eos % (Auto) 3.9, Baso [...] of assistance Charges/Coding Visit Charges Inpatient E&M: 31214 Subs Hosp L2 03/02/25 0844 <Electronically signed by Dinah CISNEROS PA-C> Cosigner Signature (if applicable): CC: ~ Signed [facility] Work Phone: 1(612) 254-415407-28-2025 Consult note Author Luis A Singh [facility] Note Date/Time March 02, 2025 8:20 am [facility] Medical Records Department [address] [place] [address] Consultation - GI 02/27/25 1848 MR#: [id number] Acct: [id number] Name: EDER BREEN Rep #:[id number] : 1955 69 From: Luis A Singh DO PCP: Dr. Hari Oneill, DO Status:AD IN Location: [place] [address] HPI Consult Data Date of Consult: 02/27/25 [...] diagnosed with viral gastroenteritis at that time. [facility] Medical History Seizures Loss of one eye [...] 71.4 H, Lymph % (Auto) 16.7 L, [place] % (Auto) 9.2, Eos % (Auto) 1.9, [...] Clarity Clear, Urine pH 7.0, Ur Specific [place] 1.010, Urine Protein 15 H, Urine Glucose [...] with numerous abdominal wall collaterals. Reading Location: [id number] Assessment & Plan Assessment/Plan (1) Abdominal pain, [...] from lymphoma. Charges/Coding Visit Charges Inpatient E&M: 40907 Init Hosp L3 03/02/25 0820 <Electronically signed by Luis A Friend > Cosigner Signature (if applicable): CC: Dr. Hari Oneill DO~ Signed [facility] Work Phone: 1(695) 219-427807-28-2025 Progress note [facility] Medical Records Department [address] [place] [address] Progress Note - Surgery 03/02/25 0832 MR#: [id number] Acct: [id number] Name: EDER BREEN Rep #:[id number] : 1955 69 From: Dinah CISNEROS PA-C PCP: Dr. Hari Oneill DO Status:AD M IN Location: [place] [address] Subjective Subjective Patient is evaluated resting comfortably [...] Neut% (Auto) 64.6, Lymph % (Auto) 22.2, [place]% (Auto) 8.5, Eos % (Auto) 3.9, Baso [...] of assistance Charges/Coding Visit Charges Inpatient E&M: 96288 Subs Hosp L2 03/02/25 0155 Cosigner Signature (if applicable): CC: ~ Signed [facility]07-28-2025 Consult note [facility] Medical Records Department [address] [place] [address] Consultation - GI 02/27/25 1848 MR#: [id number] Acct: [id number] Name: EDER BREEN Rep #:[id number] : 1955 69 From: Luis A Friend DO PCP: Dr. Hari Oneill, DO Status:AD M IN Location: [facility] YVL107- 1 HPI Consult Data Date of Consult: [...] diagnosed with viral gastroenteritis at that time. [facility] Medical History Seizures Loss of one eye [...] 71.4 H, Lymph % (Auto) 16.7 L, [place] % (Auto) 9.2, Eos % (Auto) 1.9, [...] Clarity Clear, Urine pH 7.0, Ur Specific [place] 1.010, Urine Protein 15 H, Urine Glucose [...] with numerous abdominal wall collaterals. Reading Location: [id number] Assessment & Plan Assessment/Plan (1) Abdominal pain, [...] from lymphoma. Charges/Coding Visit Charges Inpatient E&M: 49970 Init Hosp L3 03/02/25 0820 Cosigner Signature (if applicable): CC: Dr. aHri Oneill, DO~ Signed [facility]07-27-2025 Progress note Author Yoon Kim [facility] Note Date/Time March 01, 2025 11:4 5am [facility] Medical Records Department [address] [place] [address] Progress Note - Surgery 03/01/25 1139 MR#: [id number] Acct: [id number] Name: EDER BREEN Rep #:[id number] : 1955 69 From: Yoon Kim MD PCP: Dr. Hari Oneill, Status:AD M IN Location: [place] [address] Subjective Subjective Patient continues to have bowel [...] % (Auto) 63.1, Lymph % (Auto) 22.7, [place]% (Auto) 8.7, Eos % (Auto) 4.7, Baso [...] bowel or small bowel obstruction Reading Location: [facility] Physical Exam Const oriented x3 and no apparent distress GI soft to palpation and non-tender Assessment & Plan Assessment/Plan (1) Abdominal distension: (2) Colon distention: (3) Hyponatremia: PLAN: Plan Patient tolerating diet denies any abdominal pain. No plans for any general surgery intervention. Yoon Kim M.D. Pager: [phone] [facility] [address] [place] [address], [facility], [address] [place] [address] Office: [phone] Charges/Coding Multi Select Codes Visit Charges Visit Charges: 66505 Subs Hosp L2 03/01/25 5927 <Electronically signed by Yoon Kim MD> Cosigner Signature (if applicable): CC: ~ Signed [facility] Work Phone: 1(640) 241-418107-27-2025 Consult note Author Yoon Kim [facility] Note Date/Time March 01, 2025 11:4 4am [facility] Medical Records Department [address] [place] [address] Consultation - Surgical 02/28/251910 MR#: [id number] Acct: [id number] Name: EDER BREEN Rep #:[id number] : 1955 69 From: Yoon Kim MD PCP: Dr. Hari Oneill, DO Status:AD M IN Location: [facility] [id number]- 1 Assessment & Plan Assessment/Plan (1) Abdominal distension: (2) Colon distention: (3) Hyponatremia: PLAN: Plan SBFT shows contrast in colon in <1 hr and at rectum <3 hrs- no evidence of obstruction. Pt c/o diarrhea -chronic but states he has had stool studies and colonoscopy recently per pt at [facility] and it was all normal. Currently denies [...] stool studies as well ascolonoscopy done at [facility]?I do not have these results patient [...] well upon my review of past CTs. [facility] Medical History Seizures Loss of one eye [...] 72.4 H, Lymph % (Auto) 16.5 L, [place] % (Auto) 7.3, Eos % (Auto) 3.0, [...] - Final Charges/Coding Visit Charges Inpatient E&M: 68602 Init Hosp L3 03/01/25 1144 <Electronically signed by Yoon Kim MD> Cosigner Signature (if applicable): CC: Dr. Hari Oneill, DO~ Signed [facility] Work Phone: 1(705) 279-344507-27-2025 Progress note Author Danae Stanton [facility] Note Date/Time March 01, 2025 11:0 8am [facility] Medical Records Department [address] [place] [address] Progress Note 03/01/25 1101 MR#: [id number] Acct: [id number] Name: EDER BREEN Rep #:[id number] : 1955 69 From: Danae Stanton MD PCP: Dr. Hari Oneill, DO Status:AD M IN Location: [place] [address] Subjective Subjective Patient seen and examined. He [...] % (Auto) 63.1, Lymph % (Auto) 22.7, [place]% (Auto) 8.7, Eos % (Auto) 4.7, Baso [...] bowel or small bowel obstruction Reading Location: [facility] Physical Exam Const alert, oriented x3 [...] INR therapeutic. Charges/Coding Visit Charges Inpatient E&M: 43610 Subs Hosp L2 03/01/25 1100 <Electronically signed by Danae Stanton MD> Danae Stanton MD Cosigner Signature (if applicable): CC: ~ Signed [facility] Work Phone: 1([phone]) 153-879207-27-2025 Progress note [facility] Medical Records Department [address] [place] [address] Progress Note - Surgery 03/01/25 1139 MR#: [id number] Acct: [id number] Name: EDER BREEN Rep #:[id number] : 1955 69 From: Yoon Kim MD PCP: Dr. Hari Oneill, DO Status:AD M IN Location: [place] [address] Subjective Subjective Patient continues to have bowel [...] % (Auto) 63.1, Lymph % (Auto) 22.7, [place]% (Auto) 8.7, Eos % (Auto) 4.7, Baso [...] bowel or small bowel obstruction Reading Location: [facility] Physical Exam Const oriented x3 and no apparent distress GI soft to palpation and non-tender Assessment & Plan Assessment/Plan (1) Abdominal distension: (2) Colon distention: (3) Hyponatremia: PLAN: Plan Patient tolerating diet denies any abdominal pain. No plans for any general surgery intervention. Yoon Kmi M.D. Pager: [phone] [facility] [address] [place] [address], [address] [place] [address] Office: [phone] Charges/Coding Multi Select Codes Visit Charges Visit Charges: 29864 Subs Hosp L2 03/01/25 1145 Cosigner Signature (if applicable): CC: ~ Signed [facility]07-27-2025 Consult note [facility] Medical Records Department [address] [place] [address] Consultation - Surgical 02/28/25 1911 MR#: [id number] Acct: [id number] Name: EDER BREEN Rep #:[id number] : 1955 69 From: Yoon Kim MD PCP: Dr. Hari Oneill, DO Status:AD M IN Location: [facility] [id number]- 1 Assessment & Plan Assessment/Plan (1) Abdominal distension: (2) Colon distention: (3) Hyponatremia: PLAN: Plan SBFT shows contrast in colon in <1 hr and at rectum <3 hrs- no evidence of obstruction. Pt c/o diarrhea -chronic but states he has had stool studies and colonoscopy recently per pt at [facility] it was all normal. Currently denies [...] stool studies as well ascolonoscopy done at [facility]?I do not have these results patient [...] GI yesterday that he may possibly have [place] says he does have gaseous distention of his transverse colon this been present on previous CTs as well upon my review of past CTs. [facility] Medical History Seizures Loss of one eye [...] 72.4 H, Lymph % (Auto) 16.5 L, [place] % (Auto) 7.3, Eos % (Auto) 3.0, [...] - Final Charges/Coding Visit Charges Inpatient E&M: 18871 Init Hosp L3 03/01/25 1144 Cosigner Signature (if applicable): CC: Dr. Hari Oneill DO~ Signed [facility]07-27-2025 Progress note [facility] Medical Records Department [address] [place] [address] Progress Note 03/01/25 1101 MR#: [id number] Acct: [id number] Name: EDER BREEN Rep #:[id number] : 1955 69 From: Danae Stanton MD PCP: Dr. Hari Oneill, DO Status:AD M IN Location: [place] [address] Subjective Subjective Patient seen and examined. He [...] % (Auto) 63.1, Lymph % (Auto) 22.7, [place]% (Auto) 8.7, Eos % (Auto) 4.7, Baso [...] bowel or small bowel obstruction Reading Location: [facility] Physical Exam Const alert, oriented x3 [...] INR therapeutic. Charges/Coding Visit Charges Inpatient E&M: 22081 Subs Hosp L2 03/01/25 1101 Danae Stanton MD Cosigner Signature (if applicable): CC: ~ Signed [facility]07-26-2025 Radiology Diagnostic study note [facility] Imaging Services [address] [place] [address] Small Bowel Series Only MR#: [id number] Acct: [id number] Name: EDER BREEN Rep #: [id number] : 1955 M 69 From: Brenton Fernando MD PCP: Dr. Hari Oneill, DO Status: AD M IN Study:Small Bowel Series Only Date of Exam: 02/28/25 Exam# [id number] Ordering Dr: Ria Stanton MD EXAM: Small-bowel [...] bowel or small bowel obstruction Reading [facility] CC: Dr. Hari Oneill, DO; Dr. Danae Stanton MD ~ Hedis Coordinator: Signed [facility]07-26-2025 Progress note Author Danae Stanton [facility] Note Date/Time February 28, 2025 2:53 pm [facility] Medical Records Department [address] [place] [address] Progress Note 02/28/25 1407 MR#: [id number] Acct: [id number] Name: EDER BREEN Rep #:[id number] : 1955 69 From: Danae Stanton MD PCP: Dr. Hari Oneill, Status:AD M IN Location: [place] [address]- 1 Subjective Subjective Patient seen and examined. [...] 72.4 H, Lymph % (Auto) 16.5 L, [place] % (Auto) 7.3, Eos % (Auto) 3.0, [...] with numerous abdominal wall collaterals. Reading Location: [facility] Physical Exam Const alert, oriented x3 [...] INR therapeutic. Charges/Coding Visit Charges Inpatient E&M: 79031 Subs Hosp L3 02/28/25 7533 <Electronically signed by Danae Stanton MD> Danae Stanton MD Cosigner Signature (if applicable): CC: ~ Signed [facility] Work Phone: 1(722) 106-899507-26-2025 Progress note [facility] Medical Records Department [address] [place] [address] Progress Note 02/28/25 1407 MR#: [id number] Acct: [id number] Name: EDER BREEN Rep #:[id number] : 1955 69 From: Danae Stanton MD PCP: Dr. Hari Oneill, DO Status:AD IN Location: [place] [address] Subjective Subjective Patient seen and examined. He [...] 72.4 H, Lymph % (Auto) 16.5 L, [place] % (Auto) 7.3, Eos % (Auto) 3.0, [...] with numerous abdominal wall collaterals. Reading Location: [facility] Physical Exam Const alert, oriented x3 [...] INR therapeutic. Charges/Coding Visit Charges Inpatient E&M: 72048 [facility] Hosp 02/28/25 1459 Danae Stanton MD Cosigner Signature (if applicable): CC: ~ Signed [facility]07-25-2025 Discharge summary Author Khang Osuna [facility] Note Date/Time February 27, 2025 3:13 pm [facility] Medical Records Department [address] [place] [address] Emergency Department Summary 02/27/25 MR#: [id number] Acct: [id number] Name: EDER BREEN Rep #:[id number] : 1955 69 From: Khang Osuna MD PCP: Dr. Hari Oneill, DO Status:AD M IN [facility] H[facility] HPI - GI History [...] his back. No chest symptoms or dyspnea. [facility] Medical History Loss of one eye Wears [...] 71.4 H Lymph % (Auto) 16.7 L [place] % (Auto) 9.2 Eos % (Auto) 1.9 [...] Clarity Clear Urine pH 7.0 Ur Specific [place] 1.010 Urine Protein 15 H Urine Glucose [...] with numerous abdominal wall collaterals. Reading Location: [facility] Management Discussion w/another healthcare provider: Hospitalist Discharge Plan Triage Chief Complaint: Abd Pain ED Provider: Khang Osuna Dx/Rx/DC Orders Clinical Impression: Hyponatremia, Hypokalemia, Colon distention, Abdominal pain, acute, left lower quadrant, Warfarin anticoagulation Primary Care Provider: Hari Oneill Disposition Disposition: Acute Care Hospital [facility] What to do if you have Problems For any increased pain, shortness of breath, bleeding, nausea or vomiting, chestpain, or any unexpected problems, contact your Primary Care Provider. Call [facility] ([phone]) or report to the closest Emergency Room. Call 911 if necessary. 02/27/25 1513 <Electronically signed by Khang Osuna MD> Cosigner Signature (if applicable): CC: Dr. Hari Oneill, DO ~ Signed [facility] Work Phone: 1(167) 827-979807-25-2025 History and physical note Author Lisa Mike [facility] Note Date/Time February 27, 2025 2:39 pm [facility] Medical Records Department [address] [place] [address] H&P Exam - Hospitalist 02/27/25 1426 MR#: [id number] Acct: [id number] Name: EDER BREEN Rep #:[id number] : 1955 69 From: Lisa Mike MD PCP: Dr. Hari Oneill, Status:RE G ER Location: ED HPI - General General Date of Admission: 02/27/25 Date of Service: 02/27/25 Chief Complaint: Abdominal pain, nausea, diarrhea HPI Narrative EDER BREEN, is a 69-year-old male history of DVT, seizure disorder, hypothyroidism, depression, GERD, lower extremity edema presented [facility] ED 02/27/2025 with left lower quadrant [...] so he does not eat as much. [facility] Medical History Loss of one eye Wears [...] 71.4 H, Lymph % (Auto) 16.7 L, [place] % (Auto) 9.2, Eos % (Auto) 1.9, [...] Clarity Clear, Urine pH 7.0, Ur Specific [place] 1.010, Urine Protein 15 H, Urine Glucose [...] with numerous abdominal wall collaterals. Reading Location: [id number] Assessment & Plan Assessment/Plan (1) Hyponatremia: (2) [...] Mike MD Charges/Coding Visit Charges Inpatient E&M: 05527 Init Hosp L2 02/27/25 1433 <Electronically signed by Lisa Mike MD> Cosigner Signature (if applicable): CC: Dr. Hari Oneill, DO; Dr. Lisa Mike MD~ Signed [facility] Work Phone: 1(909) 991-563007-25-2025 Evaluation note* Diagnosis Onset Date Resolution Status Admit Date Abdominal distension acute February 27, 2025 2:27pm Abdominal pain acute February 27, 2025 2:27pm Abdominal pain, acute, left lower quadrant acute February 27, 2025 2:27pm Colon distention acute February 2:27pm Hypokalemia acute February 27 2:27pm Hyponatremia acute February 27, 2 025 2:27pm [facility] Work Phone: 1(243) 245-533607-25-2025 Evaluation note* Diagnosis Onset Date Resolution Status [...] 3:57pm Hyponatremia acute March 05 025 3:57pm [facility] Work Phone: 1(266) 438-337007-25-2025 Evaluation note* Diagnosis Onset Date Resolution Status [...] 2:49pm Hyponatremia resolved March 08, 2025 2:49pm [facility] Work Phone: 1([phone]) 411-447507-25-2025 Discharge summary [facility] Medical Records Department [address] [place] [address] Emergency Department Summary 02/27/25 MR#: [id number] Acct: [id number] Name: EDER BREEN Rep #:[id number] : 1955 69 From: Khang Osuna MD PCP: Dr. Hari Oneill, DO Status:AD IN Location: [place] [id number] 1 HPI HPI - GI History of [...] his back. No chest symptoms or dyspnea. [facility] Medical History Loss of one eye Wears [...] obesity/distention limits exam. Otherwise normal inspection. No [place] sign. Auscultation: hypoactive bowel sounds Palpation: soft [...] 71.4 H Lymph % (Auto) 16.7 L [place] % (Auto) 9.2 Eos % (Auto) 1.9 [...] Clarity Clear Urine pH 7.0 Ur Specific [place] 1.010 Urine Protein 15 H Urine Glucose [...] with numerous abdominal wall collaterals. Reading Location: [id number] Management Discussion w/another healthcare provider: Hospitalist Discharge Plan Triage Chief Complaint: Abd Pain ED Provider: Khang Osuna Dx/Rx/DC Orders Clinical Impression: Hyponatremia, Hypokalemia, Colon distention, Abdominal pain, acute, left lower quadrant, Warfarin anticoagulation Primary Care Provider: Hari Oneill Disposition Disposition: Acute Care Hospital [facility] What to do if you have Problems For any increased pain, shortness of breath, bleeding, nausea or vomiting, chestpain, or any unexpected problems, contact your Primary Care Provider. Call [facility] ([phone]) or report tothe closest Emergency Room. Call 911 if necessary. 02/27/25 1513 Cosigner Signature (if applicable): CC: Dr. Hari Oneill, DO ~ Signed [facility]07-25-2025 History and physical note [facility] Medical Records Department [address] [place] [address] H&P Exam - Hospitalist 02/27/25 1426 MR#: [id number] Acct: [id number] Name: EDER BREEN Rep #:[id number] : 1955 69 From: Lisa Mike MD PCP: Dr. Hari Oneill, Status:RE G ER Location: ED HPI - General General Date of Admission: 02/27/25 Date of Service: 02/27/25 Chief Complaint: Abdominal pain, nausea, diarrhea HPI Narrative EDER BREEN, is a 69-year-old male history of DVT, seizure disorder, hypothyroidism, depression, GERD, lower extremity edema presented [facility] ED 02/27/2025 with left lower quadrant [...] so he does not eat as much. [facility] Medical History Loss of one eye Wears [...] 71.4 H, Lymph % (Auto) 16.7 L, [place] % (Auto) 9.2, Eos % (Auto) 1.9, [...] Clarity Clear, Urine pH 7.0, Ur Specific [place] 1.010, Urine Protein 15 H, Urine Glucose [...] with numerous abdominal wall collaterals. Reading Location: [id number] Assessment & Plan Assessment/Plan (1) Hyponatremia: (2) [...] Mike MD Charges/Coding Visit Charges Inpatient E&M: 18573 Init Hosp L2 02/27/25 1439 Cosigner Signature (if applicable): CC: Dr. Hari Oneill DO; Dr. Lisa Mike MD~ Signed [facility]07-25-2025 Radiology Diagnostic study note [facility] Imaging Services [address] [place] [address] Abdomen/Pelvis W IV Cont ONLY MR#: [id number] Acct: [id number] Name: EDER BREEN Rep #: [id number] : 1955 M 69 From: Renetta Vera MD PCP: Dr. Hari Oneill DO Status: RE G ER Study:Abdomen/Pelvis W IV Cont ONLY Date of E xam: 02/27/25 Exam# [id number] Ordering Dr: Ervin Osuna MD PROCEDURE: ABDOMEN/PELVIS [...] with numerous abdominal wall collaterals. Reading Location: [facility] CC: Dr. Khang Osuna MD; Dr. Hari Oneill DO ~ Hedis Coordinator: Signed [facility]07-25-2025 Discharge summary Author Khang Osuna [facility] Note Date/Time February 27, 2025 3:13 pm [facility] Medical Records Department [address] [place] [address] Emergency Department Summary 02/27/25 MR#: [id number] Acct: [id number] Name: EDER BREEN Rep #:[id number] : 1955 69 From: Khang Osuna MD PCP: Dr. Hari Oneill DO Status:AD M IN Location: [facility] ROQ548- 1 HPI HPI - GI History of [...] his back. No chest symptoms or dyspnea. [facility] Medical History Loss of one eye Wears [...] obesity/distention limits exam. Otherwise normal inspection. No [place] sign. Auscultation: hypoactive bowel sounds Palpation: soft [...] 71.4 H Lymph % (Auto) 16.7 L [place] % (Auto) 9.2 Eos % (Auto) 1.9 [...] Clarity Clear Urine pH 7.0 Ur Specific [place] 1.010 Urine Protein 15 H Urine Glucose [...] with numerous abdominal wall collaterals. Reading Location: [facility] Management Discussion w/another healthcare provider: Hospitalist Discharge Plan Triage Chief Complaint: Abd Pain ED Provider: Khang Osuna Dx/Rx/DC Orders Clinical Impression: Hyponatremia, Hypokalemia, Colon distention, Abdominal pain, acute, left lower quadrant, Warfarin anticoagulation Primary Care Provider: Hari Oneill Disposition Disposition: Acute Care Hospital [facility] What to do if you have Problems For any increased pain, shortness of breath, bleeding, nausea or vomiting, chestpain, or any unexpected problems, contact your Primary Care Provider. Call [facility] ([phone]) or report to the closest Emergency Room. Call 911 if necessary. 02/27/25 1513 <Electronically signed by Khang Osuna MD> Cosigner Signature (if applicable): CC: Dr. Hari Oneill, DO ~ Signed [facility] Work Phone: 1(615) 572-538307-25-2025 Telephone encounter Note* Telephone Encounter - Niurka [...] Niurka Mancilla February 27, 2025 11:16 AM [facility]07-25[facility] Miscellaneous Notes* Telephone Encounter - Niurka [...] 27, 2025 11:16 AM documented in [facility] encounterMemorial Hospital07-[facility]-2025 Telephone encounter Note * Telephone Encounter [...] help now. Protocols used: Abdominal Pain - [id number]-[id number]-QC [facility]07-25-2025 Miscellaneous Notes* Telephone Encounter - La [...] help now. Protocols used: Abdominal Pain - [id number] documented in this encounterMemorial Hospital07-09-2025 History of Present illness Narrative* Emily [...] follow-up appointmentwithin 7 days of recent 02/10/2025 [place] ER visit. Thank you! ED DIAGNOSES/REASON(S) FOR ED USE: Upon chart review patient does not have high ER utilization with most recent being 02/10/2025 at [place] ER for multiple issues including: cellulitis, edema, [...] days of recent ER visit to satisfy [facility] HEDIS measure. At ER visit: photo extremity right lower taken, labs obtained, blood cultures obtained, Zosyn IV given x 1, urinalysis obtained, Vancocin IV given x 1. Patient Attributed To: E Payer: [employer] WATTS Action Taken: Referrals/Routed: Population Health Navigation: Appointment. Router to [facility] [[phone]] Contact made with patient: No, Chart review only. Signature: Bg Ford RN documented in this encounterMemorial Hospital07-07-2025 History of Present illness Narrative* Renee [...] 1. Melena (K92.1) 2. 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 - Concern for potential gastrointestinal bleeding due to melena and anticoagulant use. - Advised immediate evaluation in the emergency department for further diagnostic workup, includinglaboratory tests and imaging studies. - Patient understands the urgency and agrees to go to the [facility] [place] for evaluation. - Go to the Emergency Department as soon as possible for blood tests and imaging to check for internal bleeding, given your black stools and warfarin use. You plan to go to the [facility] in [place]. - Bring all your current medications, especially [...] his . MDM Procedures documented in this encounterMemorial Hospital06-19-2025 Telephone encounter Note * Telephone Encounter [...] Dorothy Mancilla January 22, 2025 11:47 AM [facility]06-19-2025 Miscellaneous Notes* Telephone Encounter - Karlee [...] 22, 2025 11:47 AM documented in this encounterMemorial Hospital06-19-2025 History of Present illness Narrative* Niurka [...] orders: Medicare Annual Wellness Visit 03/31/2025 in [facility] with HARI ONEILL - 3 Month follow up 05/12/2025 in [facility] with HARI ONEILL - WELLNESS , HCC GAPS HCC related Navigation Signature: Niurka Mancilla January 22, 2025 10:31 AM documented in this encounterMemorial Hospital05-19-2025 Telephone encounter Note * Telephone Encounter [...] 12/22/2024 Please advise. Thank you. Ericka Braswell. [facility]-19-2025 Miscellaneous Notes* Telephone Encounter - Ericka [...] Thank you. Ericka Braswell. documented in this encounterMemorial Hospital04-16-2025 Telephone encounter Note * Telephone Encounter - Xavi Xie MD - 11/19/2024 1:31 PM EDT The following approved medication requests have been transmitted electronically. Requested Prescriptions Pending Prescriptions Disp Refills lacosamide (VIMPAT) 200 mg 180 tablet 1 Sig: Take 1 tablet by mouth daily with lunch AND 1 tablet every evening. Do all this for 180 days. Xavi Xie MD [facility]04-16-2025 Miscellaneous Notes* Telephone Encounter - Xavi [...] Refill: must sign. Requested by: Kelly with [facility] pharmacy Please E-Scribe Caller Contact Number: [phone] Pharmacy Name: [facility] Pharmacy Number: [phone] Generic/ brand: she didn't know 30 or 90 day supply requested: 90 Last appointment: 05/14/24 Next Appointment: none Patient of Dr. Xie Epic message sent to Dr. Xie. Eder Breen [phone] [address] [facility] [address] documented in this encounterMemorial Hospital04-16-2025 Telephone encounter Note * Telephone Encounter - Nohemi Robbins - 11/19/2024 11:58 AM EDT Prescription Refill: must sign. Requested by: Kelly with [facility] pharmacy Please E-Scribe Caller Contact Number: [phone] Pharmacy Name: [facility] Pharmacy Number: [phone] Generic/ brand: she didn't know 30 or 90 day supply requested: 90 Last appointment: 05/14/24 Next Appointment: none Patient of Dr. Xie Epic message sent to Dr. Xie. Eder Breen [phone] [id number] [facility] [address] [facility] Telephone encounter Note* Telephone Encounter - Loree Mccollum LPN - 10/30/2024 1:10 PM EDT TC to pt. Left a detailed message on a secure line with updates. Loree Mccollum LPN [facility]03-27-2025 Miscellaneous Notes* Telephone Encounter - Loree [...] of 88 mcg. Thank you, Dai Rivera APRN.CORPORATE DEVELOPMENT OFFICER * Telephone Encounter - Marjan Betancourt LPN [...] thyroid Hari Oneill DO documented in this encounterMemorial Hospital03-27-2025 Telephone encounter Note * Telephone Encounter - Dai Rivera APRN.SAMIR - 10/30/2024 12:41 PM EDT Rx sent. Repeat thyroid labs in 6 week to recheck this on current regimen dosage of 88 mcg. Thank you, Dai Rivera APRN.CORPORATE DEVELOPMENT OFFICER [facility]-2025 Telephone encounter Note* Telephone Encounter - [...] on this until mail order comes in. [facility]03-26-2025 Telephone encounter Note* Telephone Encounter - Hari Oneill DO - 10/29/2024 7:56 PM EDT Please inform patient that overall his labs are stable except his TSH is high and free t4 is low normal. Is he missing doses of his thyroid medication? If not, then levothyoxine needs to be increasedto 100 mcg a day for his thyroid Hari Oneill DO [facility]03-26-2025 Telephone encounter Note* Telephone Encounter - Hari Oneill DO - 10/29/2024 2:30 PM EDT Load script needed for refill please Hari Oneill DO [facility]03-26-2025 Miscellaneous Notes* Telephone Encounter - Hari Oneill DO - 10/29/2024 2:30 PM EDT Load script needed for refill please Hari Oneill DO * Telephone Encounter - Janeth Abad - 10/29/2024 12:03 PM EDT Patient's spouse calling to request the following medication that is not on list meloxicam (MOBIC) 15 mg tablet Last appointment - 10/21/24 Future visit scheduled: yes PHARMACY : [facility] documented in this encounterMemorial Hospital03-26-2025 Telephone encounter Note * Telephone Encounter - Janeth Abad - 10/29/2024 12:03 PM EDT Patient's spouse calling to request the following medication that is not on list meloxicam (MOBIC) 15 mg tablet Last appointment - 10/21/24 Future visit scheduled: yes PHARMACY : [facility] Telephone encounter Note* Telephone Encounter - [...] Bills RN October 28, 2024 10:03 AM [facility]03-25-2025 Miscellaneous Notes* Telephone Encounter - Renee [...] 28, 2024 10:03 AM documented in this encounterMemorial Hospital03-21-2025 Telephone encounter Note * Telephone Encounter [...] Chas Mancilla October 24, 2024 2:27 PM [facility]-2025 Miscellaneous Notes* Telephone Encounter - Niurka [...] 24, 2024 2:27 PM documented in this encounterMemorial Hospital03-18-2025 Telephone encounter Note * Telephone Encounter - Selena Berg LPN - 10/21/2024 5:01 PM EDT Pt. informed Message left on Vm he is to return call and verify message [facility]03-18-2025 Miscellaneous Notes* Telephone Encounter - Selena [...] Information or narrative: no documented in this encounterMemorial Hospital03-18-2025 Telephone encounter Note * Telephone Encounter - Hari Oneill DO - 10/21/2024 4:59 PM EDT Continue same dose Recheck INR 4 weeks/1 month Hari Oneill DO [facility]03-18-2025 Telephone encounter Note* Telephone Encounter - Selena Berg LPN - 10/21/2024 3:17 PM EDT Last INR: INR Home CoaguChek 2.3 10/21/2024 Current dose of coumadin is: 5 mg , Sunday 7.5 mg all other days. Previous INR (date and result): 07/24 3.3 Additional Clinical Information or narrative: no [facility]03-18-2025 Instructions* Patient Instructions* Hari Oneill DO [...] for a few minutes documented in this encounterMemorial Hospital03-18-2025 History of Present illness Narrative* Hari [...] diet He is taking the medication by [employer] [place] the gastritis. Had GB HIDA testing [...] vena caval) filter thrombosed (S/P Lysis) Seizures ([facility]) Snoring SUMMARY 01/12/2013 Mr Breen is a [...] bleeding episodes/ falls Who is transferred from [facility] for the further evaluation of his dizziness [...] with more than 50% of the total rzan-vb-ogji time of the visit in counseling / coordination of care. To ER if develops chest pain, shortness of breath, or severe worsening of symptoms. Discussed risks, benefits, alternatives, and potential side effects of medications. Patient expressed understanding and agreed with the plan. Hari Oneill DO [address] [place] [address] documented in this encounterMemorial Hospital03-05-2025 History of Present illness Narrative* Bere Hays APRN.CORPORATE DEVELOPMENT OFFICER - 10/08/2024 11:30 AM EST FOLLOW UP VISIT - ENDOSCOPY Eder Breen 1955 [id number] REFERRING PHYSICIAN: No referring provider defined for [...] Biopsied. - Small hiatal hernia. Biopsied at [facility] COLONOSCOPY Impression: - Non-bleeding external and internal [...] as needed for worsening/no improvement. Bere Hays APRN.CORPORATE DEVELOPMENT OFFICER documented in this encounterMemorial Hospital02-25-2025 Note* Discharge Instr - Nursing - Janet Helms RN - 09/30/2024 1:28 PM EST The patient received a copy of Colonoscopy and EGD discharge instructions that contain information for how to contact the physician who performed the procedure and when to seek medical care. [facility]02-25-2025 Miscellaneous Notes* Discharge Instr - Nursing - Janet Helms RN - 09/30/2024 1:28 PM EST The patient received a copy of Colonoscopy and EGD discharge instructions that contain information for how to contact the physician who performed the procedure and when to seek medical care. documented in this encounterMemorial Hospital02-25-2025 Attending History and physical note* Marjan [...] through the night. States no typical meal. Barbadian goulash-filled him up for half the day. Sandwiches with Dorritos. Previously was having diarrhea frequently. As he started eating more that has made his bowel movements stiffer/more formed. dEer has undergone prior endoscopy. May 03, 2021. [...] bleeding episodes/ falls Who is transferred from [facility] for the further evaluation of his dizziness [...] 02/12/2012 EGD ESOPHAGOGASTRODUODENOSCOPY TRANSORAL DIAGNOSTIC 03/27/2012 EGD [facility] inpt ESOPHAGOGASTRODUODENOSCOPY TRANSORAL DIAGNOSTIC 06/04/2012 EGD [...] DATE: September 29, 2024 TIME: 9:59 AM [facility] Work Phone: 1(796) 782-281002-25-2025 History and physical note* Marjan Tariq MD [...] through the night. States no typical meal. [place] goulash-filled him up for half the day. [...] bleeding episodes/ falls Who is transferred from [facility] for the further evaluation of his dizziness [...] 02/12/2012 EGD ESOPHAGOGASTRODUODENOSCOPY TRANSORAL DIAGNOSTIC 03/27/2012 EGD [facility] inpt ESOPHAGOGASTRODUODENOSCOPY TRANSORAL DIAGNOSTIC 06/04/2012 EGD [...] 2024 TIME: 9:59 AM documented in this encounterMemorial Hospital02-24-2025 History and physical note * Jayesh [...] through the night. States no typical meal. Barbadian goulash-filled him up for half the day. [...] bleeding episodes/ falls Who is transferred from [facility] for the further evaluation of his dizziness [...] 02/12/2012 EGD ESOPHAGOGASTRODUODENOSCOPY TRANSORAL DIAGNOSTIC 03/27/2012 EGD [facility] inpt ESOPHAGOGASTRODUODENOSCOPY TRANSORAL DIAGNOSTIC 06/04/2012 EGD [...] DATE: September 29, 2024 TIME: 9:59 AM [facility] History and physical note* Jayesh Hernandez [...] through the night. States no typical meal. Barbadian goulash-filled him up for half the day. [...] bleeding episodes/ falls Who is transferred from [facility] for the further evaluation of his dizziness [...] 02/12/2012 EGD ESOPHAGOGASTRODUODENOSCOPY TRANSORAL DIAGNOSTIC 03/27/2012 EGD [facility] inpt ESOPHAGOGASTRODUODENOSCOPY TRANSORAL DIAGNOSTIC 06/04/2012 EGD [...] 2024 TIME: 9:59 AM documented in this encounterMemorial Hospital02-05-2025 History of Present illness Narrative* Dereck Cochran MA - 09/10/2024 12:34 PM EST POPULATION HEALTH NAVIGATION OUTREACH Action/FYI Care gaps due: AWV No answer, lvm, sent mc message. Reason for Outreach Care Gap/HCC or Scheduling Wellness Visits Care Gaps due: Medicare Annual Wellness Visit Patient Contacted: Unable or unnecessary to reach patient: Left message Liquid Statehart message sent HCC related Navigation Signature: Dereck Cochran MA September 10, 2024 12:34 PM documented in this encounterMemorial Hospital01-28-2025 Instructions* Patient Instructions* Eyad Novoa DO [...] leg (given to you at appointment) RADHA WRAP/TUBI-LOW VISION THERAPIST: Remove compression wraps if they become uncomfortable [...] infection Report any of the following changes [phone] or go to the Emergency Department: Fever [...] Wound Center. Plan: Follow-up next Sunday at [place] with Dr. Novoa at 11:15 documented in this encounterMemorial [facility] History of Present illness Narrative* Eyad Novoa DO - 09/02/2024 10:45 AM EST Images from the original note were not included. [facility] [place] DEPARTMENT OF VASCULAR SURGERY OUTPATIENT VISIT DATE September 02, 2024 OUTPATIENT VISIT TYPE CONSULTATION SERVICE DATE: 09/02/2024 SERVICE TIME: 10:45 AM PRIMARY CARE PHYSICIAN: Hari Oneill DO REFERRING PROVIDER: Suyapa Lira [address] [facility] [place] [address] Consult requested for an opinion regarding the [...] bleeding episodes/ falls Who is transferred from [facility] for the further evaluation of his dizziness [...] Extremities: Edema and Ulcers- Left leg cluster [id number]; lateral calf 3cmx1.5cm, right leg [id number] x 2cm Neurological: AAOx3. Normal cognition and [...] 2024 TIME: 10:45 AM documented in [facility] encounterMem[facility]01-24-2025 Telephone encounter Note * Telephone Encounter - Travis Manuel - 08/29/2024 11:16 AM EST 09-29-2024 Colon E[address] [facility] dr Hernandez , provider went over all prep information and gave direct number to call with questions Travis Manuel [facility]01-24-2025 Miscellaneous Notes* Telephone Encounter - Travis Manuel - 08/29/2024 11:16 AM EST 09-29-2024 Colon EGD [facility] [facility] dr Hernandez , provider went over all prep information and gave direct number to call with questions Travis Manuel documented in this encounterMemorial Hospital01-24-2025 History of Present illness Narrative* Jayesh [...] through the night. States no typical meal. Barbadian goulash-filled him up for half the day. [...] bleeding episodes/ falls Who is transferred from [facility] for the further evaluation of his dizziness [...] 02/12/2012 EGD ESOPHAGOGASTRODUODENOSCOPY TRANSORAL DIAGNOSTIC 03/27/2012 EGD [facility] inpt ESOPHAGOGASTRODUODENOSCOPY TRANSORAL DIAGNOSTIC 06/04/2012 EGD [...] 05/03/2021 Annetta Castillo MA documented in this encounterMemorial Hospital01-13-2025 Instructions* Patient Instructions* Audra Chauhan RD [...] bike twice per week) documented in this encounterMemorial Hospital01-13-2025 History of Present illness Narrative* Audra [...] 2024 TIME: 1:49 PM documented in this encounterMemorial Hospital01-11-2025 Telephone encounter Note * Telephone Encounter - Selena Berg LPN - 08/16/2024 11:34 AM EST Pt. informed. Please schedule. [facility]01-11-[facility]25 Miscellaneous Notes* Telephone Encounter - Selena [...] schedule. Suyapa Lira APRN.SAMIR documented in this encounterMemorial Hospital01-10-2025 Telephone encounter Note * Telephone Encounter - Suyapa Lira APRN.CNP - 08/15/2024 2:26 PM EST Please let him know that his hida scan did not detect his gallbladder or its function. I would likehim to see general surgery for their opinion, please assist him to schedule. Suyapa Lira APRN.CNP [facility]01-10-[facility]25 History of Present illness Narrative* Idalmis [...] PATIENT PRESENTS WITH AN IMPLANTABLE OR ATTACHED LIQUOR BLENDER: n/a CREATININE: Creatinine Date Value Ref Range [...] 9:37 AM PAGER/CONTACT #: documented in this encounterMemorial Hospital01-03-2025 Telephone encounter Note * Telephone Encounter - Gay Woods MA - 08/08/2024 2:10 PM EST Pt informed, verbalized understanding Gay Woods MA [facility]01-03-2025 Miscellaneous Notes* Telephone Encounter - Gay [...] test. Suyapa Lira APRN.CNP documented in this encounterMemorial Hospital01-03-2025 Telephone encounter Note * Telephone Encounter [...] to schedule this test. Suyapa Lira APRN.CNP [facility]12-26-2024 Telephone encounter Note* Telephone Encounter - Anna Andrade MA - 07/31/2024 1:39 PM EST Spoke with pt, notified of message below. He is taking 5 mg Tues, 7.5 mg all other days. Anna Andrade MA [facility]12-26-2024 Miscellaneous Notes* Telephone Encounter - Anna [...] Coumadin? Suyapa Lira APRN.SAMIR documented in this encounterMemorial Hospital12-23-2024 Telephone encounter Note * Telephone Encounter - Anna Andrade MA - 07/28/2024 12:17 PM EST Message left for pt to call back. Anna Andrade MA [facility]12-23-2024 History of Present illness Narrative* Isatu [...] PATIENT PRESENTS WITH AN IMPLANTABLE OR ATTACHED LIQUOR BLENDER: No RADIOLOGY DEPARTMENT: Ultrasound PERIPHERAL IV DATA: Not applicable SIGNED BY: Isatu Hicks RDMS July 28, 2024 10:31 AM documented in this encounterMemorial Hospital12-20-2024 Telephone encounter Note * Telephone Encounter - Gay Woods MA - 07/25/2024 3:09 PM EST Left message to return call. Gay Woods MA [facility]12-20-2024 Telephone encounter Note* Telephone Encounter - Suyapa Lira APRN.CNP - 07/25/2024 2:33 PM EST Please let him know I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 [...] De La Cruz LPN. documented in this encounterMemorial Hospital05-15-2024 Instructions* Patient Instructions* Stefani Fry PA-C - 12/19/2023 2:13 PM EDT - Continue current medications as prescribed - Complete lab work first thing in the morning or 8 hours after initial dose - Follow up in 5 months, sooner if needed. documented in this encounterMemorial Hospital05-15-2024 History of Present illness Narrative* Xavi [...] Fry PA-C - 12/19/2023 1:40 PM EDT [facility] Patient Name: Eder Breen Date of : 1955 Referring Provider: SELF ESTABLISHED EPILEPSY CLINIC NOTE 12/19/2023 1:30 PM Reason for Visit: Established Patient, Follow Up, and Epilepsy Clinical Summary: Mr. Breen is a 68 year old right-handed male seen in [facility]. Classification Summary HISTORY OF [...] 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 Tumor No JOURNEYMAN CARPENTER Infections No Developmental Delay No Family history [...] OP clinic with Dr. Xavi Xie. Video-EEG [facility] 10-16-1998 through 10-21-1998 Interictal: 1. Sharp [...] muscle artifact Previous EEG (August 04, 1998, [facility]) Classification Normal (Awake, Sleep, Anterior temporal electrodes) Previous Two hour EEG with video (September 08, 1998, [facility]) Classification Abnormal III (Awake, Sleep) 1 Sharp Wave, Generalized, Maximum bifrontal 2 Sharp Wave, Regional right fronto-temp. No seizures were recorded Previous MRI (September 08, 1998, [facility]): NORMAL BRAIN. FINDINGS SUGGESTING CHOLESTEROL GRANULOMA [...] bleeding episodes/ falls Who is transferred from [facility] for the further evaluation of his dizziness [...] 02/12/2012 EGD ESOPHAGOGASTRODUODENOSCOPY TRANSORAL DIAGNOSTIC 03/27/2012 EGD [facility] inpt ESOPHAGOGASTRODUODENOSCOPY TRANSORAL DIAGNOSTIC 06/04/2012 EGD [...] a back injury SOCIAL HISTORY: -Lives in [place], [place] -Patient lives alone? Yes -Vocation: -Education: [...] 200 mg BID, LCM 200 mg BID, PZY275/200 mg daily, and LEV 1500 mg BID. [...] which included: preparing to see the patient [id number] patient care completing clinical documentation obtaining and/or reviewing separately obtained history performing a medically appropriate examination counseling and educating the patient/family/caregiver ordering medications, tests, or procedures Stefani Fry PA-C cc: Primary Care Physician: Hari Oneill DO [address] [facility] [address] Referring: SELF Phone: N/A Fax: Patient: Mr. Eder Breen [address] [facility] [address] documented in this encounterMemorial Hospital05-09-2024 Telephone encounter Note * Telephone Encounter - Natasha Bergeron PA-C - 12/13/2023 12:29 PM EDT The following approved medication requests have been transmitted electronically. Requested Prescriptions Signed Prescriptions Disp Refills levETIRAcetam (KEPPRA) 750 mg tablet 360 tablet 3 Sig: TAKE 2 TABLETS TWICE A DAY Authorizing Provider: NATASHA BERGERON PA-C [facility]-09[facility]24 Miscellaneous Notes* Telephone Encounter - Natasha Bergeron PA-C - 12/13/2023 12:29 PM EDT The following approved medication requests have been transmitted electronically. Requested Prescriptions Signed Prescriptions Disp Refills levETIRAcetam (KEPPRA) 750 mg tablet 360 tablet 3 Sig: TAKE 2 TABLETS TWICE A DAY Authorizing Provider: NATASHA BERGERON PA-C documented in this encounterMemorial Hospital04-19-2024 Miscellaneous Notes* Telephone Encounter - Xavi [...] Contact Number: Pharmacy Name: [facility]acy Number: [phone] Generic/ brand: 30 or 90 day supply requested: 90 Last appointment: 03/14/23 Next Appointment: 12/19/[address] Xie documented in this encounterMemorial Hospital03-26-2024 Miscellaneous Notes* Telephone Encounter - Mi Guaman PA-C - 10/30/2023 2:13 PM EDT The following approved medication requests have been transmitted electronically. Requested Prescriptions Signed Prescriptions Disp Refills zonisamide (ZONEGRAN) 100 mg capsule 540 capsule 0 Sig: TAKE 4 CAPSULES EVERY DAY WITH LUNCH AND TAKE 2 CAPSULES EVERY EVENING Authorizing Provider: MI GUAMAN PA-C documented in this encounterMemorial Hospital03-05-2024 Miscellaneous Notes* Telephone Encounter - Mitch [...] Please E-Scribe Caller Contact Number: Pharmacy Name: [facility] Pharmacy Number: [phone] Generic/ brand: 30 or 90 day supply requested: 90 Last appointment: 03/14/23 Next Appointment: 12/19/[address] Xie documented in this encounterMemorial Hospital03-04-2024 Miscellaneous Notes* Telephone Encounter - Marjan [...] advise. Niurka Doherty Pss documented in this encounterMemorial Hospital02-23-2024 Miscellaneous Notes* Telephone Encounter - Sobeida [...] notify patient. Saumya Mancilla documented in this encounterMemorial Hospital02-12-2024 Miscellaneous Notes* Telephone Encounter - Erica Silva RN - 09/17/2023 9:06 AM EST Spoke with patients . She received letter from [facility] regarding renewal. Explained that she needs to [...] Patient of Dr. Xie documented in this encounterMemorial Hospital12-14-2023 Miscellaneous Notes* Telephone Encounter - Estella [...] Information or narrative: no documented in this encounterMemorial Hospital12-07-2023 Miscellaneous Notes* Telephone Encounter - Erica Silva RN - 07/12/2023 12:20 PM EST Spoke with patients . Patient is having eye surgery and Doctor needs letter for clearance. Letter drafted and routed to Dr. Xie for signature thru docusign. One copy faxed to Dr. Coulter [phone] Erica Silva RN * Telephone Encounter - Ivette Laura - 07/11/2023 2:45 PM EST Patients spouse called back. Stated they may use versed or fentanyl if that is okay. And to please fax the letter to Dr. Coulter [phone] * Telephone Encounter - Emily Allan - 07/11/2023 11:42 AM EST General call : Full name of person calling: Dylon Breen Relationship to patient: Phone # : [phone] (home) Reason for call: clearance ( anesthesia) for surgery Patient of Dr. Xie documented in this encounterMemorial Hospital12-06-2023 History of Present illness Narrative* Hari Oneill, - 07/11/2023 4:13 PM EST \ CC: Eder Breen is a 68 year old male who presents to the office for follow up HPI: Weight gain, currently 269 lbs Scheduled for 08/13/2023 for left cataract surgery by Dr. Elen Coulter at [facility]. Hehasn't gotten ahold of his [...] bleeding episodes/ falls Who is transferred from [facility] for the further evaluation of his dizziness [...] 02/12/2012 EGD ESOPHAGOGASTRODUODENOSCOPY TRANSORAL DIAGNOSTIC 03/27/2012 EGD [facility] inpt ESOPHAGOGASTRODUODENOSCOPY TRANSORAL DIAGNOSTIC 06/04/2012 EGD [...] 5.6 4.3 - 5.6 % Final Comment: [place] [employer] guidelines indicate that patients with HgbA1c in the range 5.7-6.4% are at increased risk for development of diabetes, and intervention by lifestyle modification may be beneficial. HgbA1c greater or equal to 6.5% is considered diagnostic of diabetes. 07/10/2022 5.6 4.3 - 5.6 % Final Comment: [place] [employer] guidelines indicate that patients with HgbA1c in the range 5.7-6.4% are at increased risk for development of diabetes, and intervention by lifestyle modification may be beneficial. HgbA1c greater or equal to 6.5% is considered diagnostic of diabetes. 06/18/2021 5.6 4.3 - 5.6 % Final Comment: [place] [employer] guidelines indicate that patients with HgbA1c in the range 5.7-6.4% are at increased risk for development of diabetes, and intervention by lifestyle modification may be beneficial. HgbA1c greater or equal to 6.5% is considered diagnostic of diabetes. 04/19/2020 5.5 4.3 - 5.6 % Final Comment: [place] [employer] guidelines indicate that patients with HgbA1c in the range 5.7-6.4% are at increased risk for development of diabetes, and intervention by lifestyle modification may be beneficial. HgbA1c greater or equal to 6.5% is considered diagnostic of diabetes. Hemoglobin A1C (POCT) Date Value Ref Range Status 07/11/2023 5.5 4.2 - 5.6 % Final Comment: Location:[facility], [address] [place] [address], [place], [address] Point of care (POC) Hemoglobin A1c (HGBA1C) [...] specific diabetes management situations: The POC device financial examiner provides a normal range of 4.2% to 6.5% for the HGBA1C POC test. However, the [place] [employer] guidelines indicate that patients with [...] plan. See patient instructions. Hari Oneill DO [address] [place] [address] documented in this encounterMemorial Hospital11-30-2023 Telephone encounter Note * Telephone Encounter - Shannon Villatoro - 07/05/2023 8:36 AM EST Talked to patient and he understands his lab orders have been placed. Shannon Villatoro [facility]11-30-2023 Miscellaneous Notes* Telephone Encounter - Shannon Villatoro - 07/05/2023 8:36 AM EST Talked to patient and he understands his lab orders have been placed. Shannon Villatoro * Telephone Encounter - Hari Oneill DO - 07/04/2023 9:00 PM EST Orders placed for thyroid labs and CBC and CMP, please inform Hari Oneill DO * Telephone Encounter - Selena Berg LPN - 07/04/2023 4:31 PM EST Pt. wants Thyroid labs and any others that are needed. documented in this encounterMemorial Hospital11-29-2023 Telephone encounter Note * Telephone Encounter - Hari Oneill DO - 07/04/2023 9:00 PM EST Orders placed for thyroid labs and CBC and CMP, please inform Hari Oneill DO [facility] Telephone encounter Note* Telephone Encounter - Selena Berg LPN - 07/04/2023 4:31 PM EST Pt. wants Thyroid labs and any others that are needed. [facility] Miscellaneous Notes* Telephone Encounter - Mi [...] Please E-Scribe Caller Contact Number: Pharmacy Name: [facility] Pharmacy Number: [phone] Generic/ brand: 30 or 90 day supply requested: 90 Last appointment: 03/14/23 Next Appointment: 05/29/[address] Xie documented in this encounterMemorial Hospital09-26-2023 History of Present illness Narrative* Hari [...] bleeding episodes/ falls Who is transferred from [facility] for the further evaluation of his dizziness [...] 02/12/2012 EGD ESOPHAGOGASTRODUODENOSCOPY TRANSORAL DIAGNOSTIC 03/27/2012 EGD [facility] inpt ESOPHAGOGASTRODUODENOSCOPY TRANSORAL DIAGNOSTIC 06/04/2012 EGD [...] refilled. 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 See patient instructions. Hari Oneill DO [address] [place] [address] documented in this encounterMemorial Hospital09-19-2023 Miscellaneous Notes* Telephone Encounter - Della [...] Contact Number: Pharmacy Name: [facility]acy Number: [phone] Generic/ brand: Generic 30 or 90 day supply requested: 90 Last appointment: 03/14/23 Next Appointment: 05/29/[address] Xie documented in this encounterMemorial Hospital09-14-2023 Miscellaneous Notes* Telephone Encounter - Suyapa Lira APRN.CNP - 04/19/2023 8:46 AM EDT Thank you for the update. Suyapa Lira APRN.CNP * Telephone Encounter - Sobeida Nair LPN - 04/19/2023 8:04 AM EDT Patient Dylon le had 2 seizures yesterday and was admitted to [facility] last evening. documented in this encounterMemorial Hospital09-13-2023 Miscellaneous Notes* Telephone Encounter - Erica Silva RN - 04/18/2023 10:55 AM EDT Patient in ED Erica Silva RN * Telephone Encounter - Kareen Miller - 04/18/2023 8:33 AM EDT Patients spouse Dylon Breen [phone] called and said that patient is still having an active seizure and she is taking him to [facility] ER. * Telephone Encounter - Abiola Badillo - 04/18/2023 8:10 AM EDT Seizure activity: Name of Caller : dylon Breen Relationship to patient: Spouse/ SignificantOther Contact phone number: [phone] (home) Date of seizure: 04/18/23 Duration: 5 mins Back to Baseline (Yes/No): yes Emergency treatment needed (Yes/No): no Patient of Dr. xie documented in this encounterMemorial Hospital09-01-2023 Miscellaneous Notes* Telephone Encounter - Verona [...] and advise. Verona Mancilla documented in this encounterMemorial Hospital08-30-2023 Miscellaneous Notes* Telephone Encounter - Selena [...] Provider: SUYAPA LIRA APRN.CNP documented in this encounterMemorial Hospital08-28-2023 Instructions* Patient Instructions* Suyapa Lira APRN.CNP [...] on your portion sizes. Start going to [employer] with Dylon when your joints start feeling better. Consider going to [facility]-can do swimming exercises that aren't as hard on your joints. Continue to cut back on your water intake at nighttime. documented in this encounterMemorial Hospital08-28-2023 History of Present illness Narrative* Suyapa [...] be healthy but has been to a drift miner. is familiar with what to eat-patient is [...] bleeding episodes/ falls Who is transferred from [facility] for the further evaluation of his dizziness [...] 02/12/2012 EGD ESOPHAGOGASTRODUODENOSCOPY TRANSORAL DIAGNOSTIC 03/27/2012 EGD [facility] inpt ESOPHAGOGASTRODUODENOSCOPY TRANSORAL DIAGNOSTIC 06/04/2012 EGD [...] - ICD9: 269.9, ICD10: E63.9 Consider seeing drift miner again. Recommend eating foods that eats. Cut back on portion sizes. Consider exercising, going to [employer] with or getting into some swimming exercises at [facility]. 9. Weight gain - ICD9: 783.1, ICD10: R63.5 Consider seeing drift miner again. Recommend eating foods that eats. Cut back on portion sizes. Consider exercising, going to [employer] with or getting into some swimming exercises at [facility]. 10. Obesity, Class II, BMI 35-39.9 - ICD9: 278.00, ICD10: E66.9 Consider seeing drift miner again. Recommend eating foods that eats. Cut back on portion sizes. Consider exercising, going to [employer] with or getting into some swimming exercises at [facility]. Suyapa Lira APRN.CORPORATE DEVELOPMENT OFFICER documented in this encounterMemorial Hospital08-09-2023 Instructions* Patient Instructions* Xavi Xie MD - 03/14/2023 3:40 PM EDT Saroj Almendarez Vimpat (Noon-10PM) (Noon-10PM) (Noon-10PM) Week 1 400-200 200-200 200-200 Week 2 Continue Continue Continue documented in this encounterMemorial Hospital08-09-2023 History of Present illness Narrative* Xavi Xie MD - 03/14/2023 3:29 PM EDT [facility] Patient Name: Eder Breen Date of : 1955 ESTABLISHED EPILEPSY CLINIC NOTE 03/14/2023 3:30 PM Reason for Visit: Follow Up Clinical Summary: Mr. Breen is a 67 year old right-handed male seen in [facility]. At today's visit, the [...] which included: preparing to see the patient [id number] patient care obtaining and/or reviewing separately obtained history completing clinical documentation counseling and educating the patient/family/caregiver ordering medications, tests, or procedures Xavi Xie MD cc: Primary Care Physician: Hari Oneill DO [address] [facility] [address] Referring: Patient: Mr. Eder Breen [address] [facility] [address] documented in this encounterMemorial Hospital07-20-2023 Miscellaneous Notes* Telephone Encounter - Nikkohuong [...] notify patient. Mago Carroll documented in this encounterMemorial Hospital07-12-2023 Miscellaneous Notes* Telephone Encounter - Verona [...] if pain is persistent. documented in this encounterMemorial Hospital07-11-2023 History of Present illness Narrative* Olga Cooper RT(R) - 02/13/2023 12:00 PM EDT Radiology [...] 13, 2023 11:57 AM documented in this encounterMemorial Hospital07-11-2023 History of Present illness Narrative* Aurora Sweet APRN.CORPORATE DEVELOPMENT OFFICER - 02/13/2023 11:45 AM EDT Images from [...] history is provided by the patient. No multi disciplined language analyst was used. Review of Systems Constitutional: Negative. [...] bleeding episodes/ falls Who is transferred from [facility] for the further evaluation of his dizziness [...] swelling. IMPRESSION IMPRESSION: Findings as described above. Hedis Coordinator: GEORGES Transcribe Date/Time: Feb 13 2023 12:55P [...] of degenerative changes in the right knee. Hedis Coordinator: GEORGES Transcribe Date/Time: Feb 13 2023 1:01P Dictated by : LASHANDA CANAS MD - US LEG VEIN DVT [facility] -patient says that they went to the appointment but somehow did not get checked in. They will call in the morning to do the ultrasound then. Aurora Sweet APRN.CORPORATE DEVELOPMENT OFFICER documented in this encounterMemorial Hospital06-28-2023 Miscellaneous Notes* Telephone Encounter - Abelino Rodriguez Research Coordinator - 01/31/2023 3:38 PM EDT Patient/Research Subject Name: Eder Breen : 1955 IRB [id number]. Creating a Healthy L.I.F.E: Lifestyle Interventions For Epilepsy Fire Alarm Installer: Heladio Duke MD, School Childcare Attendant: Marta Prado Coordinator and Email: [email or web address] Patient declined participation in the study at this time. Pt declined due to time intensity of the study. Abelino Rodriguez Research Coordinator documented in this encounterMemorial Hospital06-05-2023 Instructions* Patient Instructions* Audra Chauhan RD [...] 1-2 x per week documented in this encounterMemorial Hospital06-05-2023 History of Present illness Narrative* Audra [...] Consider using a dip such as a Mauritian yogurt based (nonfat plain Mauritian yogurt with dressing mix or other seasonings). [...] 2023 TIME: 12:17 PM documented in this encounterMemorial Hospital05-11-2023 Miscellaneous Notes* Telephone Encounter - Dinah [...] doses Hari Oneill DO documented in this encounterMemorial Hospital05-09-2023 Miscellaneous Notes* Telephone Encounter - Janet Dennis - 12/12/2022 2:28 PM EDT Pt does not know the name of med. Closing encounter documented in this encounterMemorial Hospital05-05-2023 Miscellaneous Notes* Telephone Encounter - Selena [...] loss. Hari Oneill DO documented in this encounterMemorial Hospital05-03-2023 Miscellaneous Notes* Telephone Encounter - Selena [...] Please E-Scribe Caller Contact Number: Pharmacy Name: [facility] Pharmacy Number: [phone] Generic/ brand: 30 or 90 day supply [...] advise. Niurka Doherty Pss documented in this encounterMemorial Hospital05-02-2023 Miscellaneous Notes* Telephone Encounter - Erica [...] In speaking with , patient went to [facility] last week, looks like first antibiotic was [...] Relationship to patient: Self Contact phone number: [phone] Date of seizure: 12/04/22 Duration: 4 minutes Back to Baseline (Yes/No): No, not feeling good Emergency treatment needed (Yes/No): no Patient of Dr. Xie documented in this encounterMemorial Hospital05-02-2023 Miscellaneous Notes* Telephone Encounter - Sobeida Nair LPN - 12/05/2022 9:30 AM EDT Patient Dylon calling she said has had 10 seizures since June, most recent was yesterday. She had called Dr Xie Neurologist at [facility] to notify him also. His next appt with Neurology is scheduled for 01/10/2023. said she rescheduled INR to Friday 12/08 since he is verytired today. documented in this encounterMemorial Hospital04-27-2023 Miscellaneous Notes* Telephone Encounter - Gay - 11/30/2022 8:58 AM EDT Pt and pt spouse informed and verbalized understanding. Gay Woods * Telephone Encounter - Selena Berg LPN - 11/28/2022 5:07 PM EDT Pt. informed detailed message left on VM. He is to call back and verify message. * Telephone Encounter - Hari Oneill DO - 11/28/2022 5:05 PM EDT Restart coumadin at 5 mg a day and recheck INR 1 week Hari Oneill DO * Telephone Encounter - Selena Berg LPN - 11/28/2022 1:03 PM EDT Last INR: INR Home CoaguChek 1.0 11/27/2022 Current dose of coumadin is: Held. Last date of dose change: 11/24/22. Previous INR (date and result): 5.1 Additional Clinical Information or narrative: no documented in this encounterMemorial Hospital04-24-2023 History of Present illness Narrative* Hari [...] markedly improved. Has been working with the Shipbuilding Draftsperson specialist to help him with modifying his [...] bleeding episodes/ falls Who is transferred from [facility] for the further evaluation of his dizziness [...] 02/12/2012 EGD ESOPHAGOGASTRODUODENOSCOPY TRANSORAL DIAGNOSTIC 03/27/2012 EGD [facility] inpt ESOPHAGOGASTRODUODENOSCOPY TRANSORAL DIAGNOSTIC 06/04/2012 EGD [...] ICD9: 307.50, ICD10: F50.9 - f/u with Shipbuilding Draftsperson, he is working on eating behavioral changes at this time. 12. Bilateral leg edema - ICD9: 782.3, ICD10: R60.0 - stable, improved Hari Oneill DO To ER if develops chest pain, shortness of breath, or severe worsening of symptoms. Discussed risks, benefits, alternatives, and potential side effects of medications. Patient expressed understanding and agreed with the plan. Hari Oneill DO [address] [place] [address] documented in this encounterMemorial Hospital04-24-2023 Instructions* Patient Instructions* Audra Chauhan RD [...] Consider using a dip such as a Mauritian yogurt based (nonfat plain Mauritian yogurt with dressing mix or other seasonings). [...] at lunch and dinner. documented in this encounterMemorial Hospital04-24-2023 History of Present illness Narrative* Audra [...] Consider using a dip such as a Mauritian yogurt based (nonfat plain Mauritian yogurt with dressing mix or other seasonings). [...] recommended, also plans to go back to [employer] three days per week for weights. [...] Consider using a dip such as a Mauritian yogurt based (nonfat plain Mauritian yogurt with dressing mix or other seasonings). [...] 2022 TIME: 12:15 PM documented in this encounterMemorial Hospital04-14-2023 Miscellaneous Notes* Telephone Encounter - Laurita Grady RN - 11/17/2022 4:27 PM EDT Prior authorization denied for Xifaxan 550 mg tablet. * Telephone Encounter - Laurita Grady RN - 11/17/2022 8:18 AM EDT Received prior authorization request for Xifaxan 550 mg tablets. Lazo: [id number] RX: [id number] documented in this encounterMemorial Hospital04-11-2023 Miscellaneous Notes* Telephone Encounter - Shanda Lainez APRN.CNP - 11/14/2022 11:07 AM EDT Call placed to patient to review breath testing results. Unable to reach pt or leave message. Will contact via MC. Shanda Lainez APRN.CNP documented in this encounterMemorial Hospital04-04-2023 History of Present illness Narrative* Angelic Lipscomb RN - 11/07/2022 1:21 PM EDT Name: Eder Breen [facility]#: [id number] Date: 11/07/2022 GLUCOSE - BREATH HYDROGEN & [...] completed. .Angelic Lipscomb RN documented in this encounterMemorial Hospital03-31-2023 Miscellaneous Notes* Telephone Encounter - SANDI [...] notify patient. Mago Carroll documented in this [facility]03-17-2023 Miscellaneous Notes* Telephone Encounter - Gay Woods [...] will let pcp know. documented in this encounterMemorial Hospital03-17-2023 Miscellaneous Notes* Telephone Encounter - Neli [...] Patient agreeable with plan. documented in this encounterMemorial Hospital03-13-2023 Instructions* Patient Instructions* Audra Chauhan, RD [...] Consider using a dip such as a Mauritian yogurt based (nonfat plain Mauritian yogurt with dressing mix or other seasonings). [...] food record, include portions. documented in this encounterMemorial Hospital03-13-2023 History of Present illness Narrative* Audra [...] Consider using a dip such as a Mauritian yogurt based (nonfat plain Mauritian yogurt with dressing mix or other seasonings). [...] 2022 TIME: 10:22 AM documented in this encounterMemorial Hospital03-09-2023 History of Present illness Narrative* Vicenta Jiménezgo, [facility] - 10/12/2022 11:00 AM EST Primary Care [...] will eat pancakes before dinner. Seeing a hand stripper in November to discuss the issue. Patient [...] not present Adherence: denies missed doses Pharmacy: [facility]; only med that comes from outside of [facility] pharmacy is [facility] Rx coverage: [facility] Medicare Part D Affordability: Xarelto was expensive, [...] bleeding episodes/ falls Who is transferred from [facility] for the further evaluation of his dizziness [...] ever remember taking medication; order old in [facility]; not in recent fill hx Removed [...] for 180 days. Taking; gets through a financial examiner which is why not on external fill [...] Eliquis PAP once he meets the 3% klu-ej-viggef expense requirement on Rx meds in 2022. [...] time was 65 minutes. documented in this encounterMemorial Hospital03-09-2023 Instructions* Patient Instructions* Vicenta Garicas RPh - 10/12/2022 11:00 AM EST Go [...] to get Eliquis for free through the financial examiner (this is to replace Warfarin). However, you must spend at least 3% of your annual household income on czr-og-ldyjuk expenses in 2022 before you would qualify. You will need to call your pharmacy to request an kyk-zu-uwyrbg expense report. Once you spend enough money, fill out the application and drop it off at PCP's office. Schedule an appointment with drift miner. Schedule an appointment with PCP to discuss your issue with appetite. documented in this encounterMemorial Hospital03-07-2023 Miscellaneous Notes* Telephone Encounter - Vicenta [...] >3% of their total household income on ibo-uv-fesflt expenses at their pharmacy. If unable to afford Xarelto and if patient doesn't qualify for Eliquis, may need to consider reverting back to warfarin which is inexpensive. Vicenta Garcias, Av, [facility] Primary Care Clinical Pharmacist documented in this encounterMemorial Hospital02-15-2023 Miscellaneous Notes* Telephone Encounter - Nancy Watson LPN - 09/20/2022 11:54 AM EST Last office visit: 08/29/22 Next appointment scheduled: 11/27/22 Patient phones requesting refills as follows: Requested Prescriptions Pending Prescriptions Disp Refills FLUoxetine (PROZAC) 20 mg capsule 90 capsule 1 Sig: Take 1 capsule by mouth once daily. in the morning for mood Please review and advise. Nancy Watson LPN documented in this encounterMemorial Hospital01-31-2023 Miscellaneous Notes* Telephone Encounter - Dinah [...] Please call and advise. documented in this encounterMemorial Hospital01-24-2023 Instructions* Patient Instructions* Hari Oneill DO - 08/29/2022 12:26 PM EST Call insurance to see if they will cover the 20 mg XARELTO once a day instead of the Eliquis documented in this encounterMemorial Hospital01-24-2023 History of Present illness Narrative* Hari [...] bleeding episodes/ falls Who is transferred from [facility] for the further evaluation of his dizziness [...] 02/12/2012 EGD ESOPHAGOGASTRODUODENOSCOPY TRANSORAL DIAGNOSTIC 03/27/2012 EGD [facility] inpt ESOPHAGOGASTRODUODENOSCOPY TRANSORAL DIAGNOSTIC 06/04/2012 EGD [...] - ICD9: 787.3, ICD10: R14.0 F/u with Insole And Heel Stiffener 3. Vitamin D deficiency - ICD9: 268.9, [...] 271.3, ICD10: E73.9 Recheck labs, f/u with Insole And Heel Stiffener - TSH BLD - HGB A1C 8. [...] plan. See patient instructions. Hari Oneill DO [address] [place] [address] documented in this encounterMemorial Hospital01-06-2023 Miscellaneous Notes* Telephone Encounter - Hari Oneill DO - 08/11/2022 10:44 AM EST Would he qualify for patient assistance for this? Hari Oneill DO * Telephone Encounter - Kareen Osmany Pss - 08/11/2022 9:41 AM EST Spouse called stating that she contacted her insurance company and states that Eliquis is too expensive of an alternate to Warfarin. Please advise. documented in this encounterMemorial Hospital12-05-2022 Instructions* Patient Instructions* Suyapa Lira APRN.CNP [...] prior to this appointment. documented in this encounterMemorial Hospital12-05-2022 History of Present illness Narrative* Suyapa [...] bleeding episodes/ falls Who is transferred from [facility] for the further evaluation of his dizziness [...] 02/12/2012 EGD ESOPHAGOGASTRODUODENOSCOPY TRANSORAL DIAGNOSTIC 03/27/2012 EGD [facility] inpt ESOPHAGOGASTRODUODENOSCOPY TRANSORAL DIAGNOSTIC 06/04/2012 EGD [...] Level: 4 - Moderate documented in this encounterMemorial Hospital12-01-2022 Miscellaneous Notes* Telephone Encounter - SANDI [...] medication? Suyapa Lira APRN.CNP documented in this encounterMemorial Hospital11-21-2022 Miscellaneous Notes* Telephone Encounter - Selena Berg LPN - 06/26/2022 5:32 PM EST Pt. inforrned. Selena Berg LPN * Telephone Encounter - Hari Oneill DO - 06/26/2022 5:24 PM EST INR in results is 1.5 currently. Would recommend increasing dose to take 12.5 mg , , Sunday and Sunday. Recheck INR on Sunday Hari Oneill DO documented in this encounterMemorial Hospital11-17-2022 Miscellaneous Notes* Telephone Encounter - Gay [...] correctly. Suyapa Lira APRN.CNP documented in this encounterMemorial Hospital11-04-2022 Miscellaneous Notes* Telephone Encounter - Marjan [...] you, Dai Beach APRN.SAMIR documented in this encounterMemorial Hospital11-01-2022 Miscellaneous Notes* Telephone Encounter - Alexus [...] you. Alexus Wu LPN documented in this encounterMemorial Hospital10-26-2022 Miscellaneous Notes* Telephone Encounter - Estella [...] recheck on Sunday. Thank you, Dai Beach APRN.CORPORATE DEVELOPMENT OFFICER documented in this encounterMemorial Hospital10-22-2022 Miscellaneous Notes* Telephone Encounter - Gay [...] Thank you. SANDI Rose documented in this encounterMemorial Hospital10-22-2022 Miscellaneous Notes* Telephone Encounter - Gay [...] morning. Hari Oneill DO documented in this encounterMemorial Hospital10-20-2022 History of Present illness Narrative* Xavi Xie MD - 05/25/2022 11:20 AM EDT [facility] Patient Name: Eder Breen Date of : 1955 ESTABLISHED EPILEPSY CLINIC NOTE 05/24/2022 2:00 PM Reason for Visit: Follow Up Clinical Summary: Mr. Breen is a 66 year old right-handed male seen in [facility]. At today's visit, the [...] which included: preparing to see the patient [id number] patient care completing clinical documentation obtaining and/or reviewing separately obtained history counseling and educating the patient/family/caregiver ordering medications, tests, or procedures Xavi Xie MD cc: Primary Care Physician: Hari Oneill DO [address] [facility] [address] Referring: SELF Phone: N/A Fax: Patient: Mr. Eder Breen [address] [facility] [address] documented in this encounterMemorial Hospital10-19-2022 Instructions* Patient Instructions* Xavi Xie MD - 05/24/2022 2:00 PM EDT Low carbohydrate diet. documented in this encounterMemorial Hospital10-18-2022 History of Present illness Narrative* Hari [...] studies completed which were ordered by gastroenterology ECMO SPECIALIST to determine if any additional causes of [...] bleeding episodes/ falls Who is transferred from [facility] for the further evaluation of his dizziness [...] 02/12/2012 EGD ESOPHAGOGASTRODUODENOSCOPY TRANSORAL DIAGNOSTIC 03/27/2012 EGD [facility] inpt ESOPHAGOGASTRODUODENOSCOPY TRANSORAL DIAGNOSTIC 06/04/2012 EGD [...] f/u with getting stool studies completed and hand stripper once this is done. - CBC + [...] with the plan. See patient instructions. Hari Oenill DO [address] [place] [address] documented in this encounterMemorial Hospital10-17-2022 Instructions* Patient Instructions* Hari Oneill DO - 05/22/2022 1:56 PM EDT Need lactose free diet Change to dairy free/lactose free milk NO cheese unless lactose free cheese is okay NO ice cream or sour cream or cream cheese or parmasean cheese or cottage cheese. Need for 20 minutes of exercise a day documented in this encounterMemorial Hospital10-07-2022 Miscellaneous Notes* Telephone Encounter - Xavi [...] pharmacy Please Call in Caller Contact Number: [phone] (home) Pharmacy Name: [facility] Number: [id number] Generic/ brand: generic 30 or 90 day supply requested: 90 Last appointment: 11/09/21 Next Appointment: 05/24/[address] xie documented in this encounterMemorial Hospital10-04-2022 Instructions* Patient Instructions* Shanda Lainez APRN.CNP - 05/09/2022 2:10 PM EDT Thank you for seeing me in clinic today. As we discussed, my recommendations are as follows: 1.stool testing 2.breath testing 3. Follow up in 3 months If you have any questions about the above treatment plan, please do not hesitate to call the officeor send me a INVOLTAt message. documented in this encounterMemorial Hospital10-04-2022 Nurse Note* Laurita Grady RN - 05/09/2022 1:51 PM EDT Medication Review: Patient uncertain of name of medications he is taking. Patient brought an AVS from an office visit in October and stated everything on the list is the same as far as [he] is aware. documented in this encounterMemorial Hospital10-04-2022 History and physical note * Shanda Lainez APRN.CNP - 05/09/2022 1:30 PM EDT Consultation requested by Dr. Hari Oneill for an opinion regarding multiple GI concerns. REASON FOR VISIT: multiple GI concerns. HPI: Eder Breen is a 66 year [...] Abs Lymph 1.00 - 4.00 k/uL 1.41 [place]% % 7.3 Abs [place] <0.87 k/uL 0.50 Eosin% % 4.2 Abs [...] bleeding episodes/ falls Who is transferred from [facility] for the further evaluation of his dizziness [...] TEST GLUCOSE This note was dictated using [employer] speech recognition software and may contain some errors that were a result of the program not accurately transcribing what was dictated. Shanda Lainez APRN.CNP documented in this encounterMemorial Hospital09-20-2022 Miscellaneous Notes* Telephone Encounter - Annetta [...] De La Cruz LPN documented in this encounterMemorial Hospital07-26-2022 Miscellaneous Notes* Telephone Encounter - Dinah [...] advise. Danitza Clark LPN documented in this encounterMemorial Hospital07-21-2022 Miscellaneous Notes* Telephone Encounter - Le [...] Provider: LE CARRENO APRN.CNP documented in this encounterMemorial Hospital07-15-2022 Instructions* Patient Instructions* Suyapa Lira APRN.CNP - 02/17/2022 12:51 PM EDT Get plenty of fluids. A minimum of 60-80oz per day. Drink a couple Body [place] drinks daily to helpwith getting your electrolytes. Use the imodium. Take 2 tablets initially. Then take 1 additional tablet after every episode of diarrhea. Up to 8 tablets in a day. documented in this encounterMemorial Hospital07-15-2022 History of Present illness Narrative* Suyapa [...] bleeding episodes/ falls Who is transferred from [facility] for the further evaluation of his dizziness [...] 02/12/2012 EGD ESOPHAGOGASTRODUODENOSCOPY TRANSORAL DIAGNOSTIC 03/27/2012 EGD [facility] inpt ESOPHAGOGASTRODUODENOSCOPY TRANSORAL DIAGNOSTIC 06/04/2012 EGD [...] intake. Recommend electrolyte supplementation such as Body [place]. - OVA + PARA MICROSCOPIC - ENTERIC BACTERIAL PANEL BY PCR - C. DIFFICILE PCR - FECAL OCCULT BLOOD TEST Suyapa Lira APRN.CORPORATE DEVELOPMENT OFFICER Greater than 50% of 35-minute visit spent face to face with patient in counseling and education. documented in this encounterMemorial Hospital07-11-2022 Miscellaneous Notes* Telephone Encounter - Suyapa Lira APRN.CNP - 02/13/2022 5:00 PM EDT Please clarify this message. Suyapa Lira APRN.CNP * Telephone Encounter - Sobeida Nair LPN - 02/08/2022 11:13 AM EDT Yanick from [facility] calling asking to clarify the directions and larger amount for mail away rx for the Lopermide rx 30 tablet rx had been sent in. Pending rx to complete. Please advise documented in this encounterMemorial Hospital2022 Miscellaneous Notes* Telephone Encounter - Annetta [...] De La Cruz Pss documented in this encounterMemorial Hospital06-24-2022 Miscellaneous Notes* Telephone Encounter - Travis Renee LPN - 01/27/2022 2:44 PM EDT KRISTEN 12/15/21 NOV no upcoming appt * Telephone [...] advise. Niurka Doherty Pss documented in this encounterMemorial Hospital06-09-2022 Miscellaneous Notes* Telephone Encounter - Selena Atkinson PA-C - 01/12/2022 9:13 AM EDT The following approved medication requests have been transmitted electronically. Signed Prescriptions Disp Refills lamoTRIgine (LAMICTAL) 200 mg tablet 180 tablet 3 Sig: TAKE 1 TABLET TWICE DAILY DESMOND: No Authorizing Provider: SELENA ATKINSON PA-C documented in this encounterMemorial Hospital06-01-2022 Miscellaneous Notes* Telephone Encounter - Loree [...] advise. Loree Mccollum LPN documented in this encounterMemorial Hospital05-12-2022 History of Present illness Narrative* Dai Beach APRN.CORPORATE DEVELOPMENT OFFICER - 12/15/2021 10:40 AM EDT Chief Complaint Patient presents with: Suture Removal: lft foot send toe on the bottom HPI Eder Breen is a 66 year old male who presents here today for Above Complaints. Eder is an established patient of Dr. Oneill, and myself. Concerns today.. Suture removal: Seen at [facility] ED on 12/08/21 d/t L great [...] bleeding episodes/ falls Who is transferred from [facility] for the further evaluation of his dizziness [...] 02/12/2012 EGD ESOPHAGOGASTRODUODENOSCOPY TRANSORAL DIAGNOSTIC 03/27/2012 EGD [facility] inpt ESOPHAGOGASTRODUODENOSCOPY TRANSORAL DIAGNOSTIC 06/04/2012 EGD [...] Patient agreeable to treatment plan. Dai Beach APRN.CORPORATE DEVELOPMENT OFFICER [address] [facility] [place] [address] documented in this encounterMemorial Hospital05-11-2022 Miscellaneous Notes* Telephone Encounter - Selena [...] instead. Hari Oneill DO documented in this encounterMemorial Hospital05-10-2022 Instructions* Patient Instructions* Tereza Salvador APRN.SAMIR [...] in a wedge pillow. documented in this encounterMemorial Hospital05-10-2022 History of Present illness Narrative* Tereza Salvador APRN.CNP - 12/13/2021 10:30 AM EDT CHIEF COMPLAINT: Patient presents with: GI symptoms This consult was requested by Hari Oneill DO for an opinion regarding multiple GI concerns.My final recommendations will be communicated to the requesting health care provider by way of the shared medical record for internal providers or letter via the [employer] for external providers. Eder Breen is a [...] of bowel movements: urgency [facility]ffa gen surgery [facility] - abdominal [facility] ? Record Review: [facility] / Outside [...] bleeding episodes/ falls Who is transferred from [facility] for the further evaluation of his dizziness [...] 02/12/2012 EGD ESOPHAGOGASTRODUODENOSCOPY TRANSORAL DIAGNOSTIC 03/27/2012 EGD [facility] inpt ESOPHAGOGASTRODUODENOSCOPY TRANSORAL DIAGNOSTIC 06/04/2012 EGD [...] with more than 50% of the total uiuy-vn-eshx time of the visit in counseling / coordination of care. I have confirmed and edited as necessary, the PFSH and ROS obtained by others. Tereza Salvador APRN.CNP DATE: 12/13/21 TIME: 9:46 AM documented in this encounterMemorial Hospital05-09-2022 History of Present illness Narrative* Razia Loyd CELIO - 12/12/2021 1:39 PM EDT Patient presents for Lactose Intolerance testing. Baseline lab levels completed at lab and Lactose (Lactose Monohydrate Powder 50grams in 400mL water) administered to patient at 1:24pm. Tolerated well. LOT # [id number] EXP 08/28/2026 Razia Loyd LPN documented in this encounterMemorial Hospital05-08-2022 Miscellaneous Notes* Telephone Encounter - CHARO [...] Would like him to follow up with hand stripper Hari Oneill DO documented in this encounterMemorial Hospital04-29-2022 Miscellaneous Notes* Telephone Encounter - Nancy [...] Information or narrative: no documented in this encounterMemorial Hospital04-26-2022 Miscellaneous Notes* Telephone Encounter - Dinah [...] result Hari Oneill DO documented in this encounterMemorial Hospital04-20-2022 History of Present illness Narrative* Hari [...] bleeding episodes/ falls Who is transferred from [facility] for the further evaluation of his dizziness [...] 02/12/2012 EGD ESOPHAGOGASTRODUODENOSCOPY TRANSORAL DIAGNOSTIC 03/27/2012 EGD [facility] inpt ESOPHAGOGASTRODUODENOSCOPY TRANSORAL DIAGNOSTIC 06/04/2012 EGD [...] - CORTISOL BLD - ADH/ARGININE VASOPRS 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 Hari Oneill DO [address] [place] [address] documented in this encounterMemorial Hospital04-18-2022 Instructions* Patient Instructions* Hari Oneill DO [...] continued for 120 minutes. documented in this encounterMemorial Hospital04-08-2022 History of Present illness Narrative* Xavi Xie MD - 11/11/2021 10:36 AM EDT [facility] Patient Name: Eder Breen Date of : 1955 ESTABLISHED EPILEPSY CLINIC NOTE 11/09/2021 2:30 PM Reason for Visit: Follow Up Clinical Summary: Mr. Breen is a 66 year old right-handed male seen in [facility]. At today's visit, the [...] We also discussed getting a consult for rod hanger for modified Adkin's diet for control of [...] which included: preparing to see the patient [id number] patient care completing clinical documentation obtaining and/or reviewing separately obtained history counseling and educating the patient/family/caregiver ordering medications, tests, or procedures Xavi Xie MD cc: Primary Care Physician: Hari Oneill DO [address] [facility] [address] Referring: SELF Phone: N/A Fax: Patient: Mr. Eder Breen [address] [facility] [address] documented in this encounterMemorial Hospital03-28-2022 History and physical note * Pepito Chan MD - 10/31/2021 3:[address] [facility] Abdominal [facility] - HISTORY AND PHYSICAL Chief [...] bleeding episodes/ falls Who is transferred from [facility] for the further evaluation of his dizziness [...] 02/12/2012 EGD ESOPHAGOGASTRODUODENOSCOPY TRANSORAL DIAGNOSTIC 03/27/2012 EGD [facility] inpt ESOPHAGOGASTRODUODENOSCOPY TRANSORAL DIAGNOSTIC 06/04/2012 EGD [...] physician via US mail. documented in this encounterMemorial Hospital03-28-2022 Nurse Note* Shahida Brush Ma - 10/31/2021 3:02 PM EDT What is the reason for your visit today? consult Who is your referring physician? Dr. chan Are you having poor oral intake? NO Have you had unintentional weight loss of 15 lbs/7 Kg in the last 3-6 months? YES Bowels: diarrhea Wound: clean & dry Temperature: No Drains: No documented in this [facility]03-25-2022 Miscellaneous Notes* Telephone Encounter - Saumya Barba [...] patient. Saumya Barba Pss documented in this encounterMemorial Hospital03-22-2022 Miscellaneous Notes* Telephone Encounter - Niurka [...] advise. Niurka Doherty Pss documented in this encounterMemorial Hospital03-08-2022 Miscellaneous Notes* Telephone Encounter - Selena [...] taking Coumadin 7.5mg /// &5mg //. 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 Melyssa [...] Provider: HARI ONEILL DO documented in this encounterMemorial Hospital01-03-2022 History of Present illness Narrative* Shahida [...] 08, 2021 11:01 AM documented in this encounterMemorial Hospital04-30-2021 History of Present illness Narrative* Sahhida Weiss RT(R) - 12/03/2020 11:30 AM EDT [...] 03, 2020 11:38 AM [facility] of Past illness Narrative* Problem Noted Date Resolved Date Cellulitis of left lower extremity 09/29/2020 10/06/2021 [place] (acute kidney injury) 09/29/20202021 Functional dyspepsia 02/11/2018 03/25/2018 Overview: Added automatically from request for surgery [id number] History of pulmonary embolism 10/30/2016 History of [...] to go to the ED. Admitted to [facility] from 03/12-03/13 without any [facility] imaging and transferred [facility] [...] bleeding episodes/ falls Who is transferred from [facility] for the further evaluation of his dizziness [...] of this encounter (statuses as of 10/26/2021) [facility] N[facility]* Problem Noted Date Resolved Date Cellulitis of left lower extremity 09/29/2020 10/06/2021 [place] (acute kidney injury) 09/29/20202021 Functional dyspepsia 02/11/2018 03/25/2018 Overview: Added automatically from request for surgery [id number] History of pulmonary embolism 10/30/2016 History of [...] to go to the ED. Admitted to [facility] from 03/12-03/13 without any [facility] imaging and transferred [facility] for [...] bleeding episodes/ falls Who is transferred from [facility] for the further evaluation of his dizziness [...] of this encounter (statuses as of 10/28/2021) [facility] N[facility]* Problem Noted Date Resolved Date Cellulitis of left lower extremity 09/29/2020 10/06/2021 [place] (acute kidney injury) 09/29/20202021 Functional dyspepsia 02/11/2018 03/25/2018 Overview: Added automatically from request for surgery [id number] History of pulmonary embolism 10/30/2016 History of [...] to go to the ED. Admitted to [facility] from 03/12-03/13 without any [facility] imaging and transferred [facility] [...] bleeding episodes/ falls Who is transferred from [facility] for the further evaluation of his dizziness [...] of this encounter (statuses as of 10/31/2021) [facility] Narr[facility]* Problem Noted Date Resolved Date Cellulitis of left lower extremity 09/29/2020 10/06/2021 [place] (acute kidney injury) 09/29/20202021 Functional dyspepsia 02/11/2018 03/25/2018 Overview: Added automatically from request for surgery [id number] History of pulmonary embolism 10/30/2016 History of [...] to go to the ED. Admitted to [facility] from 03/12-03/13 without any [facility] imaging and [facility] [...] bleeding episodes/ falls Who is transferred from [facility] for the further evaluation of his dizziness [...] of this encounter (statuses as of 11/11/2021) [facility] Narr[facility]* Problem Noted Date Resolved Date Cellulitis of left lower extremity 09/29/2020 10/06/2021 [place] (acute kidney injury) 09/29/20202021 Functional dyspepsia 02/11/2018 03/25/2018 Overview: Added automatically from request for surgery [id number] History of pulmonary embolism 10/30/2016 History of [...] to go to the ED. Admitted to [facility] from 03/12-03/13 without any [facility] imaging and [facility] [...] bleeding episodes/ falls Who is transferred from [facility] for the further evaluation of his dizziness [...] of this encounter (statuses as of 11/18/2021) [facility]* Problem Noted Date Resolved Date Cellulitis of left lower extremity 09/29/2020 10/06/2021 [place] (acute kidney injury) 09/29/20202021 Functional dyspepsia 02/11/2018 03/25/2018 Overview: Added automatically from request for surgery [id number] History of pulmonary embolism 10/30/2016 History of [...] to go to the ED. Admitted to [facility] from 03/12-03/13 without any [facility] imaging and [facility] [...] bleeding episodes/ falls Who is transferred from [facility] for the further evaluation of his dizziness [...] of this encounter (statuses as of 11/23/2021) [facility]* Problem Noted Date Resolved Date Cellulitis of left lower extremity 09/29/2020 10/06/2021 [place] (acute kidney injury) 09/29/20202021 Functional dyspepsia 02/11/2018 03/25/2018 Overview: Added automatically from request for surgery [id number] History of pulmonary embolism 10/30/2016 History of [...] to go to the ED. Admitted to [facility] from 03/12-03/13 without any [facility] imaging and [facility] [...] bleeding episodes/ falls Who is transferred from [facility] for the further evaluation of his dizziness [...] of this encounter (statuses as of 11/29/2021) [facility] N[facility]* Problem Noted Date Resolved Date Cellulitis of left lower extremity 09/29/2020 10/06/2021 [place] (acute kidney injury) 09/29/20202021 Functional dyspepsia 02/11/2018 03/25/2018 Overview: Added automatically from request for surgery [id number] History of pulmonary embolism 10/30/2016 History of [...] to go to the ED. Admitted to [facility] from 03/12-03/13 without any [facility] imaging and [facility] [...] bleeding episodes/ falls Who is transferred from [facility] for the further evaluation of his dizziness [...] of this encounter (statuses as of 12/02/2021) [facility] N[facility]* Problem Noted Date Resolved Date Cellulitis of left lower extremity 09/29/2020 10/06/2021 [place] (acute kidney injury) 09/29/20202021 Functional dyspepsia 02/11/2018 03/25/2018 Overview: Added automatically from request for surgery [id number] History of pulmonary embolism 10/30/2016 History of [...] to go to the ED. Admitted to [facility] from 03/12-03/13 without any [facility] imaging and [facility] [...] bleeding episodes/ falls Who is transferred from [facility] for the further evaluation of his dizziness [...] of this encounter (statuses as of 12/11/2021) [facility] N[facility]* Problem Noted Date Resolved Date Cellulitis of left lower extremity 09/29/2020 10/06/2021 [place] (acute kidney injury) 09/29/20202021 Functional dyspepsia 02/11/2018 03/25/2018 Overview: Added automatically from request for surgery [id number] History of pulmonary embolism 10/30/2016 History of [...] to go to the ED. Admitted to [facility] from 03/12-03/13 without any [facility] imaging and [facility] [...] bleeding episodes/ falls Who is transferred from [facility] for the further evaluation of his dizziness [...] of this encounter (statuses as of 12/12/2021) [facility] N[facility]* Problem Noted Date Resolved Date Cellulitis of left lower extremity 09/29/2020 10/06/2021 [place] (acute kidney injury) 09/29/20202021 Functional dyspepsia 02/11/2018 03/25/2018 Overview: Added automatically from request for surgery [id number] History of pulmonary embolism 10/30/2016 History of [...] to go to the ED. Admitted to [facility] from 03/12-03/13 without any [facility] imaging and [facility] [...] bleeding episodes/ falls Who is transferred from [facility] for the further evaluation of his dizziness [...] of this encounter (statuses as of 12/14/2021) [facility]* Problem Noted Date Resolved Date Cellulitis of left lower extremity 09/29/2020 10/06/2021 [place] (acute kidney injury) 09/29/20202021 Functional dyspepsia 02/11/2018 03/25/2018 Overview: Added automatically from request for surgery [id number] History of pulmonary embolism 10/30/2016 History of [...] to go to the ED. Admitted to [facility] from 03/12-03/13 without any [facility] imaging and [facility] [...] bleeding episodes/ falls Who is transferred from [facility] for the further evaluation of his dizziness [...] of this encounter (statuses as of 12/15/2021) [facility] N[facility]* Problem Noted Date Resolved Date Cellulitis of left lower extremity 09/29/2020 10/06/2021 [place] (acute kidney injury) 09/29/20202021 Functional dyspepsia 02/11/2018 03/25/2018 Overview: Added automatically from request for surgery [id number] History of pulmonary embolism 10/30/2016 History of [...] to go to the ED. Admitted to [facility] from 03/12-03/13 without any [facility] imaging and [facility] [...] bleeding episodes/ falls Who is transferred from [facility] for the further evaluation of his dizziness [...] of this encounter (statuses as of 12/19/2021) [facility] Narr[facility]* Problem Noted Date Resolved Date Cellulitis of left lower extremity 09/29/2020 10/06/2021 [place] (acute kidney injury) 09/29/20202021 Functional dyspepsia 02/11/2018 03/25/2018 Overview: Added automatically from request for surgery [id number] History of pulmonary embolism 10/30/2016 History of [...] to go to the ED. 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 Admitted to [facility] from 03/12-03/13 without any [facility] imaging and [facility] [...] bleeding episodes/ falls Who is transferred from [facility] for the further evaluation of his dizziness [...] of this encounter (statuses as of 01/12/2022) [facility]* Problem Noted Date Resolved Date Cellulitis of left lower extremity 09/29/2020 10/06/2021 [place] (acute kidney injury) 09/29/20202021 Functional dyspepsia 02/11/2018 03/25/2018 Overview: Added automatically from request for surgery [id number] History of pulmonary embolism 10/30/2016 History of [...] to go to the ED. Admitted to [facility] from 03/12-03/13 without any [facility] imaging and [facility] [...] bleeding episodes/ falls Who is transferred from [facility] for the further evaluation of his dizziness [...] of this encounter (statuses as of 01/27/2022) [place] [id number] History of Past illness Narrative* Problem Noted Date Resolved Date Cellulitis of left lower extremity 09/29/2020 10/06/2021 [place] (acute kidney injury) 09/29/20202021 Functional dyspepsia 02/11/2018 03/25/2018 Overview: Added automatically from request for surgery [id number] History of pulmonary embolism 10/30/2016 History of [...] to go to the ED. Admitted to [facility] from 03/12-03/13 without any [facility] imaging and [facility] [...] bleeding episodes/ falls Who is transferred from [facility] for the further evaluation of his dizziness [...] of this encounter (statuses as of 02/01/2022) [facility]* Problem Noted Date Resolved Date Cellulitis of left lower extremity 09/29/2020 10/06/2021 [place] (acute kidney injury) 09/29/20202021 Functional dyspepsia 02/11/2018 03/25/2018 Overview: Added automatically from request for surgery [id number] History of pulmonary embolism 10/30/2016 History of [...] to go to the ED. Admitted to [facility] from 03/12-03/13 without any [facility] imaging and [facility] [...] bleeding episodes/ falls Who is transferred from [facility] for the further evaluation of his dizziness [...] of this encounter (statuses as of 02/15/2022) [facility]* Problem Noted Date Resolved Date Cellulitis of left lower extremity 09/29/2020 10/06/2021 [place] (acute kidney injury) 09/29/20202021 Functional dyspepsia 02/11/2018 03/25/2018 Overview: Added automatically from request for surgery [id number] History of pulmonary embolism 10/30/2016 History of [...] to go to the ED. Admitted to [facility] from 03/12-03/13 without any [facility] imaging and [facility] [...] bleeding episodes/ falls Who is transferred from [facility] for the further evaluation of his dizziness [...] of this encounter (statuses as of 02/20/2022) [facility] Narrative* Problem Noted Date Resolved Date Cellulitis of left lower extremity 09/29/2020 10/06/2021 [place] (acute kidney injury) 09/29/20202021 Functional dyspepsia 02/11/2018 03/25/2018 Overview: Added automatically from request for surgery [id number] History of pulmonary embolism 10/30/2016 History of [...] to go to the ED. Admitted to [facility] from 03/12-03/13 without any [facility] imaging and [facility] [...] bleeding episodes/ falls Who is transferred from [facility] for the further evaluation of his dizziness [...] of this encounter (statuses as of 02/23/2022) [facility] Narr[facility]* Problem Noted Date Resolved Date Cellulitis of left lower extremity 09/29/2020 10/06/2021 [place] (acute kidney injury) 09/29/20202021 Functional dyspepsia 02/11/2018 03/25/2018 Overview: Added automatically from request for surgery [id number] History of pulmonary embolism 10/30/2016 History of [...] to go to the ED. Admitted to [facility] from 03/12-03/13 without any [facility] imaging and [facility] [...] bleeding episodes/ falls Who is transferred from [facility] for the further evaluation of his dizziness [...] of this encounter (statuses as of 02/28/2022) [facility]* Problem Noted Date Resolved Date Cellulitis of left lower extremity 09/29/2020 10/06/2021 [place] (acute kidney injury) 09/29/20202021 Functional dyspepsia 02/11/2018 03/25/2018 Overview: Added automatically from request for surgery [id number] History of pulmonary embolism 10/30/2016 History of [...] to go to the ED. Admitted to [facility] from 03/12-03/13 without any [facility] imaging and [facility] [...] bleeding episodes/ falls Who is transferred from [facility] for the further evaluation of his dizziness [...] of this encounter (statuses as of 04/26/2022) [facility] Narr[facility]* Problem Noted Date Resolved Date Cellulitis of left lower extremity 09/29/2020 10/06/2021 [place] (acute kidney injury) 09/29/20202021 Functional dyspepsia 02/11/2018 03/25/2018 Overview: Added automatically from request for surgery [id number] History of pulmonary embolism 10/30/2016 History of [...] to go to the ED. Admitted to [facility] from 03/12-03/13 without any [facility] [employer] imaging and [facility] [...] bleeding episodes/ falls Who is transferred from [facility] for the further evaluation of his dizziness [...] of this encounter (statuses as of 05/10/2022) [facility] N[facility]* Problem Noted Date Resolved Date Cellulitis of left lower extremity 09/29/2020 10/06/2021 [place] (acute kidney injury) 09/29/20202021 Functional dyspepsia 02/11/2018 03/25/2018 Overview: Added automatically from request for surgery [id number] History of pulmonary embolism 10/30/2016 History of [...] to go to the ED. Admitted to [facility] from 03/12-03/13 without any [facility] imaging and [facility] [...] bleeding episodes/ falls Who is transferred from [facility] for the further evaluation of his dizziness [...] of this encounter (statuses as of 05/12/2022) [facility] Narrative* Problem Noted Date Resolved Date Cellulitis of left lower extremity 09/29/2020 10/06/2021 [place] (acute kidney injury) 09/29/20202021 Functional dyspepsia 02/11/2018 03/25/2018 Overview: Added automatically from request for surgery [id number] History of pulmonary embolism 10/30/2016 History of [...] to go to the ED. Admitted to [facility] from 03/12-03/13 without any [facility] imaging and transferred to the [facility] for further evaluation - no complains today [...] bleeding episodes/ falls Who is transferred from [facility] for the further evaluation of his dizziness [...] of this encounter (statuses as of 05/23/2022) [facility] Narrative* Problem Noted Date Resolved Date Cellulitis of left lower extremity 09/29/2020 10/06/2021 [place] (acute kidney injury) 09/29/20202021 Functional dyspepsia 02/11/2018 03/25/2018 Overview: Added automatically from request for surgery [id number] History of pulmonary embolism 10/30/2016 History of [...] to go to the ED. Admitted to [facility] from 03/12-03/13 without any [facility] imaging and [facility] [...] bleeding episodes/ falls Who is transferred from [facility] for the further evaluation of his dizziness [...] of this encounter (statuses as of 05/25/2022) [facility] Narrative* Problem Noted Date Resolved Date Cellulitis of left lower extremity 09/29/2020 10/06/2021 [place] (acute kidney injury) 09/29/20202021 Functional dyspepsia 02/11/2018 03/25/2018 Overview: Added automatically from request for surgery [id number] History of pulmonary embolism 10/30/2016 History of [...] to go to the ED. Admitted to [facility] from 03/12-03/13 without any [facility] imaging and [facility] [...] bleeding episodes/ falls Who is transferred from [facility] for the further evaluation of his dizziness [...] of this encounter (statuses as of 05/27/2022) [facility] Narrative* Problem Noted Date Resolved Date Cellulitis of left lower extremity 09/29/2020 10/06/2021 [place] (acute kidney injury) 09/29/20202021 Functional dyspepsia 02/11/2018 03/25/2018 Overview: Added automatically from request for surgery [id number] History of pulmonary embolism 10/30/2016 History of [...] to go to the ED. Admitted to [facility] from 03/12-03/13 without any [facility] imaging and [facility] [...] bleeding episodes/ falls Who is transferred from [facility] for the further evaluation of his dizziness [...] of this encounter (statuses as of 05/27/2022) [facility] Narrative* Problem Noted Date Resolved Date Cellulitis of left lower extremity 09/29/2020 10/06/2021 [place] (acute kidney injury) 09/29/20202021 Functional dyspepsia 02/11/2018 03/25/2018 Overview: Added automatically from request for surgery [id number] History of pulmonary embolism 10/30/2016 History of [...] to go to the ED. Admitted to [facility] from 03/12-03/13 without any [facility] imaging and transferred to the [facility] for further evaluation - no complains today [...] bleeding episodes/ falls Who is transferred from [facility] for the further evaluation of his dizziness [...] of this encounter (statuses as of 05/31/2022) [facility] Narr[facility]* Problem Noted Date Resolved Date Cellulitis of left lower extremity 09/29/2020 10/06/2021 [place] (acute kidney injury) 09/29/20202021 Functional dyspepsia 02/11/2018 03/25/2018 Overview: Added automatically from request for surgery [id number] History of pulmonary embolism 10/30/2016 History of [...] to go to the ED. Admitted to [facility] from 03/12-03/13 without any [facility] imaging and transferred to the [facility] for [...] bleeding episodes/ falls Who is transferred from [facility] for the further evaluation of his dizziness [...] of this encounter (statuses as of 06/01/2022) [facility] Narr[facility]* Problem Noted Date Resolved Date Cellulitis of left lower extremity 09/29/2020 10/06/2021 [place] (acute kidney injury) 09/29/20202021 Functional dyspepsia 02/11/2018 03/25/2018 Overview: Added automatically from request for surgery [id number] History of pulmonary embolism 10/30/2016 History of [...] to go to the ED. Admitted to [facility] from 03/12-03/13 without any [facility] imaging and transferred to the [facility] for [...] bleeding episodes/ falls Who is transferred from [facility] for the further evaluation of his dizziness [...] of this encounter (statuses as of 06/07/2022) [facility] Narrative* Problem Noted Date Resolved Date Cellulitis of left lower extremity 09/29/2020 10/06/2021 [place] (acute kidney injury) 09/29/20202021 Functional dyspepsia 02/11/2018 03/25/2018 Overview: Added automatically from request for surgery [id number] History of pulmonary embolism 10/30/2016 History of [...] to go to the ED. Admitted to [facility] from 03/12-03/13 without any [facility] imaging and [facility] [...] bleeding episodes/ falls Who is transferred from [facility] for the further evaluation of his dizziness [...] of this encounter (statuses as of 06/09/2022) [facility] Narrative* Problem Noted Date Resolved Date Cellulitis of left lower extremity 09/29/2020 10/06/2021 [place] (acute kidney injury) 09/29/20202021 Functional dyspepsia 02/11/2018 03/25/2018 Overview: Added automatically from request for surgery [id number] History of pulmonary embolism 10/30/2016 History of [...] to go to the ED. Admitted to [facility] from 03/12-03/13 without any [facility] [employer] imaging and transferred to the [facility] for further evaluation - no complains today [...] bleeding episodes/ falls Who is transferred from [facility] for the further evaluation of his dizziness [...] of this encounter (statuses as of 06/22/2022) [facility] Narr[facility]* Problem Noted Date Resolved Date Cellulitis of left lower extremity 09/29/2020 10/06/2021 [place] (acute kidney injury) 09/29/20202021 Functional dyspepsia 02/11/2018 03/25/2018 Overview: Added automatically from request for surgery [id number] History of pulmonary embolism 10/30/2016 History of [...] to go to the ED. Admitted to [facility] from 03/12-03/13 without any [facility] imaging and [facility] [...] bleeding episodes/ falls Who is transferred from [place] [facility] for the further evaluation of his [...] of this encounter (statuses as of 06/27/2022) [facility] Narrative* Problem Noted Date Resolved Date Cellulitis of left lower extremity 09/29/2020 10/06/2021 [place] (acute kidney injury) 09/29/20202021 Functional dyspepsia 02/11/2018 03/25/2018 Overview: Added automatically from request for surgery [id number] History of pulmonary embolism 10/30/2016 History of [...] to go to the ED. Admitted to [facility] from 03/12-03/13 without any [facility] [employer] imaging and [facility] [...] bleeding episodes/ falls Who is transferred from [facility] for the further evaluation of his dizziness [...] of this encounter (statuses as of 07/10/2022) [facility]* Problem Noted Date Resolved Date Cellulitis of left lower extremity 09/29/2020 10/06/2021 [place] (acute kidney injury) 09/29/20202021 Functional dyspepsia 02/11/2018 03/25/2018 Overview: Added automatically from request for surgery [id number] History of pulmonary embolism 10/30/2016 History of [...] to go to the ED. Admitted to [facility] from 03/12-03/13 without any [facility] imaging and [facility] [...] bleeding episodes/ falls Who is transferred from [facility] for the further evaluation of his dizziness [...] of this encounter (statuses as of 07/28/2022) [facility] History of Past illness Narrative* Problem Noted Date Resolved Date Cellulitis of left lower extremity 09/29/2020 10/06/2021 [place] (acute kidney injury) 09/29/20202021 Functional dyspepsia 02/11/2018 03/25/2018 Overview: Added automatically from request for surgery [id number] History of pulmonary embolism 10/30/2016 History of [...] to go to the ED. Admitted to [facility] from 03/12-03/13 without any [facility] imaging and transferred to the [facility] for [...] bleeding episodes/ falls Who is transferred from [facility] for the further evaluation of his dizziness [...] of this encounter (statuses as of 08/12/2022) [facility] History of Past illness Narrative* Problem Noted Date Resolved Date Cellulitis of left lower extremity 09/29/2020 10/06/2021 [place] (acute kidney injury) 09/29/20202021 Functional dyspepsia 02/11/2018 03/25/2018 Overview: Added automatically from request for surgery [id number] History of pulmonary embolism 10/30/2016 History of [...] to go to the ED. Admitted to [facility] from 03/12-03/13 without any [facility] imaging and transferred to [facility] for [...] bleeding episodes/ falls Who is transferred from [facility] for the further evaluation of his dizziness [...] of this encounter (statuses as of 08/30/2022) [facility] History of Past illness Narrative* Problem Noted Date Resolved Date Cellulitis of left lower extremity 09/29/2020 10/06/2021 [place] (acute kidney injury) 09/29/20202021 Functional dyspepsia 02/11/2018 03/25/2018 Overview: Added automatically from request for surgery [id number] History of pulmonary embolism 10/30/2016 History of [...] to go to the ED. Admitted to [facility] from 03/12-03/13 without any [facility] imaging and transferred to [facility] [...] bleeding episodes/ falls Who is transferred from [facility] for the further evaluation of his dizziness [...] of this encounter (statuses as of 09/05/2022) [facility] History of Past illness Narrative* Problem Noted Date Resolved Date Cellulitis of left lower extremity 09/29/2020 10/06/2021 [place] (acute kidney injury) 09/29/20202021 Functional dyspepsia 02/11/2018 03/25/2018 Overview: Added automatically from request for surgery [id number] History of pulmonary embolism 10/30/2016 History of [...] to go to the ED. Admitted to [facility] from 03/12-03/13 without any [facility] imaging and transferred [facility] [...] bleeding episodes/ falls Who is transferred from [facility] for the further evaluation of his dizziness [...] of this encounter (statuses as of 09/20/2022) [facility] History of Past illness Narrative* Problem Noted Date Resolved Date Cellulitis of left lower extremity 09/29/2020 10/06/2021 [place] (acute kidney injury) 09/29/20202021 Functional dyspepsia 02/11/2018 03/25/2018 Overview: Added automatically from request for surgery [id number] History of pulmonary embolism 10/30/2016 History of [...] to go to the ED. Admitted to [facility] from 03/12-03/13 without any [facility] imaging and transferred [facility] [...] bleeding episodes/ falls Who is transferred from [facility] for the further evaluation of his dizziness [...] of this encounter (statuses as of 10/11/2022) [facility] of Past illness Narrative* Problem Noted Date Resolved Date Cellulitis of left lower extremity 09/29/2020 10/06/2021 [place] (acute kidney injury) 09/29/20202021 Functional dyspepsia 02/11/2018 03/25/2018 Overview: Added automatically from request for surgery [id number] History of pulmonary embolism 10/30/2016 History of [...] to go to the ED. Admitted to [facility] from 03/12-03/13 without any [facility] imaging and transferred [facility] [...] bleeding episodes/ falls Who is transferred from [facility] for the further evaluation of his dizziness [...] of this encounter (statuses as of 10/12/2022) [facility] Past illness Narrative* Problem Noted Date Resolved Date Cellulitis of left lower extremity 09/29/2020 10/06/2021 [place] (acute kidney injury) 09/29/20202021 Functional dyspepsia 02/11/2018 03/25/2018 Overview: Added automatically from request for surgery [id number] History of pulmonary embolism 10/30/2016 History of [...] to go to the ED. Admitted to [facility] from 03/12-03/13 without any [facility] imaging and transferred [facility] [...] bleeding episodes/ falls Who is transferred from [facility] for the further evaluation of his dizziness [...] of this encounter (statuses as of 10/16/2022) [facility] of Past illness Narrative* Problem Noted Date Resolved Date Cellulitis of left lower extremity 09/29/2020 10/06/2021 [place] (acute kidney injury) 09/29/20202021 Functional dyspepsia 02/11/2018 03/25/2018 Overview: Added automatically from request for surgery [id number] History of pulmonary embolism 10/30/2016 History of [...] to go to the ED. Admitted to [facility] from 03/12-03/13 without any [facility] imaging and [facility] [...] bleeding episodes/ falls Who is transferred from [facility] for the further evaluation of his dizziness [...] of this encounter (statuses as of 10/20/2022) [facility] of Past illness Narrative* Problem Noted Date Resolved Date Cellulitis of left lower extremity 09/29/2020 10/06/2021 [place] (acute kidney injury) 09/29/20202021 Functional dyspepsia 02/11/2018 03/25/2018 Overview: Added automatically from request for surgery [id number] History of pulmonary embolism 10/30/2016 History of [...] to go to the ED. Admitted to [facility] from 03/12-03/13 without any [facility] imaging and transferred [facility] [...] bleeding episodes/ falls Who is transferred from [facility] for the further evaluation of his dizziness [...] of this encounter (statuses as of 11/03/2022) [facility] of Past illness Narrative* Problem Noted Date Resolved Date Cellulitis of left lower extremity 09/29/2020 10/06/2021 [place] (acute kidney injury) 09/29/20202021 Functional dyspepsia 02/11/2018 03/25/2018 Overview: Added automatically from request for surgery [id number] History of pulmonary embolism 10/30/2016 History of [...] to go to the ED. Admitted to [facility] from 03/12-03/13 without any [facility] imaging and [facility] [...] bleeding episodes/ falls Who is transferred from [facility] for the further evaluation of his dizziness [...] of this encounter (statuses as of 11/07/2022) [facility] of Past illness Narrative* Problem Noted Date Resolved Date Cellulitis of left lower extremity 09/29/2020 10/06/2021 [place] (acute kidney injury) 09/29/20202021 Functional dyspepsia 02/11/2018 03/25/2018 Overview: Added automatically from request for surgery [id number] History of pulmonary embolism 10/30/2016 History of [...] to go to the ED. Admitted to [facility] from 03/12-03/13 without any [facility] imaging and [facility] [...] bleeding episodes/ falls Who is transferred from [facility] for the further evaluation of his dizziness [...] of this encounter (statuses as of 11/14/2022) [facility] History of Past illness Narrative* Problem Noted Date Resolved Date Cellulitis of left lower extremity 09/29/2020 10/06/2021 [place] (acute kidney injury) 09/29/20202021 Functional dyspepsia 02/11/2018 03/25/2018 Overview: Added automatically from request for surgery [id number] History of pulmonary embolism 10/30/2016 History of [...] to go to the ED. Admitted to [facility] from 03/12-03/13 without any [facility] imaging and [facility] [...] bleeding episodes/ falls Who is transferred from [facility] for the further evaluation of his dizziness [...] of this encounter (statuses as of 11/14/2022) [facility] History of Past illness Narrative* Problem Noted Date Resolved Date Cellulitis of left lower extremity 09/29/2020 10/06/2021 [place] (acute kidney injury) 09/29/20202021 Functional dyspepsia 02/11/2018 03/25/2018 Overview: Added automatically from request for surgery [id number] History of pulmonary embolism 10/30/2016 History of [...] to go to the ED. Admitted to [facility] from 03/12-03/13 without any [facility] imaging and [facility] [...] bleeding episodes/ falls Who is transferred from [facility] for the further evaluation of his dizziness [...] of this encounter (statuses as of 11/27/2022) [facility] History of Past illness Narrative* Problem Noted Date Resolved Date Cellulitis of left lower extremity 09/29/2020 10/06/2021 [place] (acute kidney injury) 09/29/20202021 Functional dyspepsia 02/11/2018 03/25/2018 Overview: Added automatically from request for surgery [id number] History of pulmonary embolism 10/30/2016 History of [...] to go to the ED. Admitted to [facility] from 03/12-03/13 without any [facility] imaging and [facility] [...] bleeding episodes/ falls Who is transferred from [facility] for the further evaluation of his dizziness [...] of this encounter (statuses as of 11/28/2022) [facility] of Past illness Narrative* Problem Noted Date Resolved Date Cellulitis of left lower extremity 09/29/2020 10/06/2021 [place] (acute kidney injury) 09/29/20202021 Functional dyspepsia 02/11/2018 03/25/2018 Overview: Added automatically from request for surgery [id number] History of pulmonary embolism 10/30/2016 History of [...] to go to the ED. Admitted to [facility] from 03/12-03/13 without any [facility] imaging and [facility] [...] bleeding episodes/ falls Who is transferred from [facility] for the further evaluation of his dizziness [...] of this encounter (statuses as of 11/29/2022) [facility] of Past illness Narrative* Problem Noted Date Resolved Date Cellulitis of left lower extremity 09/29/2020 10/06/2021 [place] (acute kidney injury) 09/29/20202021 Functional dyspepsia 02/11/2018 03/25/2018 Overview: Added automatically from request for surgery [id number] History of pulmonary embolism 10/30/2016 History of [...] to go to the ED. Admitted to [facility] from 03/12-03/13 without any [facility] imaging and [facility] [...] bleeding episodes/ falls Who is transferred from [facility] for the further evaluation of his dizziness [...] of this encounter (statuses as of 11/29/2022) [facility] of Past illness Narrative* Problem Noted Date Resolved Date Cellulitis of left lower extremity 09/29/2020 10/06/2021 [place] (acute kidney injury) 09/29/20202021 Functional dyspepsia 02/11/2018 03/25/2018 Overview: Added automatically from request for surgery [id number] History of pulmonary embolism 10/30/2016 History of [...] to go to the ED. Admitted to [facility] from 03/12-03/13 without any [facility] imaging and [facility] [...] bleeding episodes/ falls Who is transferred from [facility] for the further evaluation of his dizziness [...] of this encounter (statuses as of 11/30/2022) [facility] of Past illness Narrative* Problem Noted Date Resolved Date Cellulitis of left lower extremity 09/29/2020 10/06/2021 [place] (acute kidney injury) 09/29/20202021 Functional dyspepsia 02/11/2018 03/25/2018 Overview: Added automatically from request for surgery [id number] History of pulmonary embolism 10/30/2016 History of [...] to go to the ED. Admitted to [facility] from 03/12-03/13 without any [facility] imaging and [facility] [...] bleeding episodes/ falls Who is transferred from [facility] for the further evaluation of his dizziness [...] of this encounter (statuses as of 11/30/2022) [facility] of Past illness Narrative* Problem Noted Date Resolved Date Cellulitis of left lower extremity 09/29/2020 10/06/2021 [place] (acute kidney injury) 09/29/20202021 Functional dyspepsia 02/11/2018 03/25/2018 Overview: Added automatically from request for surgery [id number] History of pulmonary embolism 10/30/2016 History of [...] to go to the ED. Admitted to [facility] from 03/12-03/13 without any [facility] imaging and [facility] [...] bleeding episodes/ falls Who is transferred from [facility] for the further evaluation of his dizziness [...] of this encounter (statuses as of 11/30/2022) [facility] of Past illness Narrative* Problem Noted Date Resolved Date Cellulitis of left lower extremity 09/29/2020 10/06/2021 [place] (acute kidney injury) 09/29/20202021 Functional dyspepsia 02/11/2018 03/25/2018 Overview: Added automatically from request for surgery [id number] History of pulmonary embolism 10/30/2016 History of [...] falls/ no focal weakness. Called up Dr iXe (his neurologist) and was asked to go to the ED. Admitted to [facility] from 03/12-03/13 without any [facility] imaging and transferred [facility] [...] bleeding episodes/ falls Who is transferred from [facility] for the further evaluation of his dizziness [...] of this encounter (statuses as of 12/05/2022) [facility] of Past illness Narrative* Problem Noted Date Resolved Date Cellulitis of left lower extremity 09/29/2020 10/06/2021 [place] (acute kidney injury) 09/29/20202021 Functional dyspepsia 02/11/2018 03/25/2018 Overview: Added automatically from request for surgery [id number] History of pulmonary embolism 10/30/2016 History of [...] to go to the ED. Admitted to [facility] from 03/12-03/13 without any [facility] imaging and transferred [facility] [...] bleeding episodes/ falls Who is transferred from [facility] for the further evaluation of his dizziness [...] of this encounter (statuses as of 12/06/2022) [facility] of Past illness Narrative* Problem Noted Date Resolved Date Cellulitis of left lower extremity 09/29/2020 10/06/2021 [place] (acute kidney injury) 09/29/20202021 Functional dyspepsia 02/11/2018 03/25/2018 Overview: Added automatically from request for surgery [id number] History of pulmonary embolism 10/30/2016 History of [...] to go to the ED. Admitted to [facility] from 03/12-03/13 without any [facility] imaging and transferred [facility] [...] bleeding episodes/ falls Who is transferred from [facility] for the further evaluation of his dizziness [...] of this encounter (statuses as of 12/08/2022) [facility] History of Past illness Narrative* Problem Noted Date Resolved Date Cellulitis of left lower extremity 09/29/2020 10/06/2021 [place] (acute kidney injury) 09/29/20202021 Functional dyspepsia 02/11/2018 03/25/2018 Overview: Added automatically from request for surgery [id number] History of pulmonary embolism 10/30/2016 History of [...] to go to the ED. Admitted to [facility] from 03/12-03/13 without any [facility] imaging and [facility] [...] bleeding episodes/ falls Who is transferred from [facility] for the further evaluation of his dizziness [...] of this encounter (statuses as of 12/12/2022) [facility] of Past illness Narrative* Problem Noted Date Resolved Date Cellulitis of left lower extremity 09/29/2020 10/06/2021 [place] (acute kidney injury) 09/29/20202021 Functional dyspepsia 02/11/2018 03/25/2018 Overview: Added automatically from request for surgery [id number] History of pulmonary embolism 10/30/2016 History of [...] to go to the ED. Admitted to [facility] from 03/12-03/13 without any [facility] imaging and transferred [facility] [...] bleeding episodes/ falls Who is transferred from [facility] for the further evaluation of his dizziness [...] of this encounter (statuses as of 12/13/2022) [facility] of Past illness Narrative* Problem Noted Date Resolved Date Cellulitis of left lower extremity 09/29/2020 10/06/2021 [place] (acute kidney injury) 09/29/20202021 Functional dyspepsia 02/11/2018 03/25/2018 Overview: Added automatically from request for surgery [id number] History of pulmonary embolism 10/30/2016 History of [...] to go to the ED. Admitted to [facility] from 03/12-03/13 without any [facility] imaging and transferred [facility] [...] bleeding episodes/ falls Who is transferred from [facility] for the further evaluation of his dizziness [...] of this encounter (statuses as of 12/15/2022) [facility] of Past illness Narrative* Problem Noted Date Resolved Date Cellulitis of left lower extremity 09/29/2020 10/06/2021 [place] (acute kidney injury) 09/29/20202021 Functional dyspepsia 02/11/2018 03/25/2018 Overview: Added automatically from request for surgery [id number] History of pulmonary embolism 10/30/2016 History of [...] to go to the ED. Admitted to [facility] from 03/12-03/13 without any [facility] imaging and transferred [facility] [...] bleeding episodes/ falls Who is transferred from [facility] for the further evaluation of his dizziness [...] of this encounter (statuses as of 01/08/2023) [facility] Past illness Narrative* Problem Noted Date Resolved Date Cellulitis of left lower extremity 09/29/2020 10/06/2021 [place] (acute kidney injury) 09/29/20202021 Functional dyspepsia 02/11/2018 03/25/2018 Overview: Added automatically from request for surgery [id number] History of pulmonary embolism 10/30/2016 History of [...] to go to the ED. Admitted to [facility] from 03/12-03/13 without any [facility] imaging and transferred [facility] [...] bleeding episodes/ falls Who is transferred from [facility] for the further evaluation of his dizziness [...] of this encounter (statuses as of 01/10/2023) [facility] Past illness Narrative* Problem Noted Date Resolved Date Cellulitis of left lower extremity 09/29/2020 10/06/2021 [place] (acute kidney injury) 09/29/20202021 Functional dyspepsia 02/11/2018 03/25/2018 Overview: Added automatically from request for surgery [id number] History of pulmonary embolism 10/30/2016 History of [...] to go to the ED. Admitted to [facility] from 03/12-03/13 without any [facility] imaging and transferred [facility] [...] bleeding episodes/ falls Who is transferred from [facility] for the further evaluation of his dizziness [...] of this encounter (statuses as of 02/01/2023) [facility] Past illness Narrative* Problem Noted Date Diagnosed Date Resolved Date Cellulitis of left lower extremity 09/29/2020 10/06/2021 [place] (acute kidney injury) 09/29/2020 Functional dyspepsia 02/11/2018 018 Overview: Added automatically from request for surgery [id number] History of pulmonary embolism 10/30/2016 03/25/2018 History [...] to go to the ED. Admitted to [facility] from 03/12-03/13 without any [facility] imaging and transferred to the [facility] for further evaluation - no complains today [...] bleeding episodes/ falls Who is transferred from [facility] for the further evaluation of his dizziness [...] of this encounter (statuses as of 02/14/2023) [facility] Narrative* Problem Noted Date Diagnosed Date Resolved Date Cellulitis of left lower extremity 09/29/2020 10/06/2021 [place] (acute kidney injury) 09/29/2020 Functional dyspepsia 02/11/2018 018 Overview: Added automatically from request for surgery [id number] History of pulmonary embolism 10/30/2016 03/25/2018 History [...] to go to the ED. Admitted to [facility] from 03/12-03/13 without any [facility] imaging and [facility] [...] bleeding episodes/ falls Who is transferred from [facility] for the further evaluation of his dizziness [...] of this encounter (statuses as of 02/15/2023) [facility] Past illness Narrative* Problem Noted Date Diagnosed Date Resolved Date Cellulitis of left lower extremity 09/29/2020 10/06/2021 [place] (acute kidney injury) 09/29/2020 Functional dyspepsia 02/11/2018 018 Overview: Added automatically from request for surgery [id number] History of pulmonary embolism 10/30/2016 03/25/2018 History [...] to go to the ED. Admitted to [facility] from 03/12-03/13 without any [facility] imaging and [facility] [...] bleeding episodes/ falls Who is transferred from [facility] for the further evaluation of his dizziness [...] of this encounter (statuses as of 02/22/2023) [facility] Past illness Narrative* Problem Noted Date Diagnosed Date Resolved Date Cellulitis of left lower extremity 09/29/2020 10/06/2021 [place] (acute kidney injury) 09/29/2020 Functional dyspepsia 02/11/2018 018 Overview: Added automatically from request for surgery [id number] History of pulmonary embolism 10/30/2016 03/25/2018 History [...] to go to the ED. Admitted to [facility] from 03/12-03/13 without any [facility] imaging and [facility] [...] bleeding episodes/ falls Who is transferred from [facility] for the further evaluation of his dizziness [...] of this encounter (statuses as of 03/15/2023) [facility] Past illness Narrative* Problem Noted Date Diagnosed Date Resolved Date Cellulitis of left lower extremity 09/29/2020 10/06/2021 [place] (acute kidney injury) 09/29/2020 Functional dyspepsia 02/11/2018 018 Overview: Added automatically from request for surgery [id number] History of pulmonary embolism 10/30/2016 03/25/2018 History [...] to go to the ED. Admitted to [facility] from 03/12-03/13 without any [facility] imaging and [facility] [...] bleeding episodes/ falls Who is transferred from [facility] for the further evaluation of his dizziness [...] of this encounter (statuses as of 04/04/2023) [facility] Past illness Narrative* Problem Noted Date Diagnosed Date Resolved Date Cellulitis of left lower extremity 09/29/2020 10/06/2021 [place] (acute kidney injury) 09/29/2020 Functional dyspepsia 02/11/2018 018 Overview: Added automatically from request for surgery [id number] History of pulmonary embolism 10/30/2016 03/25/2018 History [...] to go to the ED. Admitted to [facility] from 03/12-03/13 without any [facility] imaging and [facility] [...] bleeding episodes/ falls Who is transferred from [facility] for the further evaluation of his dizziness [...] of this encounter (statuses as of 04/05/2023) [facility] of Past illness Narrative* Problem Noted Date Diagnosed Date Resolved Date Cellulitis of left lower extremity 09/29/2020 10/06/2021 [place] (acute kidney injury) 09/29/2020 Functional dyspepsia 02/11/2018 018 Overview: Added automatically from request for surgery [id number] History of pulmonary embolism 10/30/2016 03/25/2018 History [...] to go to the ED. Admitted to [facility] from 03/12-03/13 without any [facility] [employer] imaging and [facility] [...] bleeding episodes/ falls Who is transferred from [facility] for the further evaluation of his dizziness [...] of this encounter (statuses as of 04/06/2023) [facility] Past illness Narrative* Problem Noted Date Diagnosed Date Resolved Date Cellulitis of left lower extremity 09/29/2020 10/06/2021 [place] (acute kidney injury) 09/29/2020 Functional dyspepsia 02/11/2018 018 Overview: Added automatically from request for surgery [id number] History of pulmonary embolism 10/30/2016 03/25/2018 History [...] to go to the ED. Admitted to [facility] from 03/12-03/13 without any [facility] imaging and transferred to [facility] for [...] bleeding episodes/ falls Who is transferred from [facility] for the further evaluation of his dizziness [...] of this encounter (statuses as of 04/18/2023) [facility] History of Past illness Narrative* Problem Noted Date Diagnosed Date Resolved Date Cellulitis of left lower extremity 09/29/2020 10/06/2021 [place] (acute kidney injury) 09/29/2020 Functional dyspepsia 02/11/2018 018 Overview: Added automatically from request for surgery [id number] History of pulmonary embolism 10/30/2016 03/25/2018 History [...] to go to the ED. Admitted to [facility] from 03/12-03/13 without any [facility] imaging and transferred to the [facility] for [...] bleeding episodes/ falls Who is transferred from [facility] for the further evaluation of his dizziness [...] of this encounter (statuses as of 04/19/2023) [facility] History of Past illness Narrative* Problem Noted Date Diagnosed Date Resolved Date Cellulitis of left lower extremity 09/29/2020 10/06/2021 [place] (acute kidney injury) 09/29/2020 Functional dyspepsia 02/11/2018 018 Overview: Added automatically from request for surgery [id number] History of pulmonary embolism 10/30/2016 03/25/2018 History [...] to go to the ED. Admitted to [facility] from 03/12-03/13 without any [facility] imaging and transferred to the [facility] for [...] bleeding episodes/ falls Who is transferred from [facility] for the further evaluation of his dizziness [...] of this encounter (statuses as of 04/25/2023) [facility] History of Past illness Narrative* Problem Noted Date Diagnosed Date Resolved Date Cellulitis of left lower extremity 09/29/2020 10/06/2021 [place] (acute kidney injury) 09/29/2020 Functional dyspepsia 02/11/2018 018 Overview: Added automatically from request for surgery [id number] History of pulmonary embolism 10/30/2016 03/25/2018 History [...] to go to the ED. Admitted to [facility] from 03/12-03/13 without any [facility] imaging and transferred to [facility] for [...] bleeding episodes/ falls Who is transferred from [facility] for the further evaluation of his dizziness [...] of this encounter (statuses as of 05/02/2023) [facility] of Past illness Narrative* Problem Noted Date Diagnosed Date Resolved Date Cellulitis of left lower extremity 09/29/2020 10/06/2021 [place] (acute kidney injury) 09/29/2020 Functional dyspepsia 02/11/2018 018 Overview: Added automatically from request for surgery [id number] History of pulmonary embolism 10/30/2016 03/25/2018 History [...] to go to the ED. Admitted to [facility] from 03/12-03/13 without any [facility] imaging and transferred [facility] [...] bleeding episodes/ falls Who is transferred from [facility] for the further evaluation of his dizziness [...] of this encounter (statuses as of 05/24/2023) [facility] of Past illness Narrative* Problem Noted Date Diagnosed Date Resolved Date Cellulitis of left lower extremity 09/29/2020 10/06/2021 [place] (acute kidney injury) 09/29/2020 Functional dyspepsia 02/11/2018 018 Overview: Added automatically from request for surgery [id number] History of pulmonary embolism 10/30/2016 03/25/2018 History [...] to go to the ED. Admitted to [facility] from 03/12-03/13 without any [facility] imaging and transferred [facility] for [...] bleeding episodes/ falls Who is transferred from [facility] for the further evaluation of his dizziness [...] of this encounter (statuses as of 07/12/2023) [facility] of Past illness Narrative* Problem Noted Date Diagnosed Date Resolved Date Cellulitis of left lower extremity 09/29/2020 10/06/2021 [place] (acute kidney injury) 09/29/2020 Functional dyspepsia 02/11/2018 018 Overview: Added automatically from request for surgery [id number] History of pulmonary embolism 10/30/2016 03/25/2018 History [...] to go to the ED. Admitted to [facility] from 03/12-03/13 without any [facility] imaging and transferred [facility] for [...] bleeding episodes/ falls Who is transferred from [facility] for the further evaluation of his dizziness [...] of this encounter (statuses as of 07/12/2023) [facility] of Past illness Narrative* Problem Noted Date Diagnosed Date Resolved Date Cellulitis of left lower extremity 09/29/2020 10/06/2021 [place] (acute kidney injury) 09/29/2020 Functional dyspepsia 02/11/2018 018 Overview: Added automatically from request for surgery [id number] History of pulmonary embolism 10/30/2016 03/25/2018 History [...] to go to the ED. Admitted to [facility] from 03/12-03/13 without any [facility] imaging and transferred [facility] for [...] bleeding episodes/ falls Who is transferred from [facility] for the further evaluation of his dizziness [...] of this encounter (statuses as of 07/19/2023) [facility] of Past illness Narrative* Problem Noted Date Diagnosed Date Resolved Date Cellulitis of left lower extremity 09/29/2020 10/06/2021 [place] (acute kidney injury) 09/29/2020 Functional dyspepsia 02/11/2018 018 Overview: Added automatically from request for surgery [id number] History of pulmonary embolism 10/30/2016 03/25/2018 History [...] to go to the ED. Admitted to [facility] from 03/12-03/13 without any [facility] imaging and transferred [facility] [...] bleeding episodes/ falls Who is transferred from [facility] for the further evaluation of his dizziness [...] of this encounter (statuses as of 09/18/2023) [facility] of Past illness Narrative* Problem Noted Date Diagnosed Date Resolved Date Cellulitis of left lower extremity 09/29/2020 10/06/2021 [place] (acute kidney injury) 09/29/2020 Functional dyspepsia 02/11/2018 018 Overview: Added automatically from request for surgery [id number] History of pulmonary embolism 10/30/2016 03/25/2018 History [...] to go to the ED. Admitted to [facility] from 03/12-03/13 without any [facility] imaging and transferred [facility] [...] bleeding episodes/ falls Who is transferred from [facility] for the further evaluation of his dizziness [...] of this encounter (statuses as of 09/28/2023) [facility] of Past illness Narrative* Problem Noted Date Diagnosed Date Resolved Date Cellulitis of left lower extremity 09/29/2020 10/06/2021 [place] (acute kidney injury) 09/29/2020 Functional dyspepsia 02/11/2018 018 Overview: Added automatically from request for surgery [id number] History of pulmonary embolism 10/30/2016 03/25/2018 History [...] to go to the ED. Admitted to [facility] from 03/12-03/13 without any [facility] imaging and [facility] [...] bleeding episodes/ falls Who is transferred from [facility] for the further evaluation of his dizziness [...] of this encounter (statuses as of 10/08/2023) [facility] of Past illness Narrative* Problem Noted Date Diagnosed Date Resolved Date Cellulitis of left lower extremity 09/29/2020 10/06/2021 [place] (acute kidney injury) 09/29/2020 Functional dyspepsia 02/11/2018 018 Overview: Added automatically from request for surgery [id number] History of pulmonary embolism 10/30/2016 03/25/2018 History [...] to go to the ED. Admitted to [facility] from 03/12-03/13 without any [facility] imaging and [facility] [...] bleeding episodes/ falls Who is transferred from [facility] for the further evaluation of his dizziness [...] of this encounter (statuses as of 10/09/2023) [facility] of Past illness Narrative* Problem Noted Date Diagnosed Date Resolved Date Cellulitis of left lower extremity 09/29/2020 10/06/2021 [place] (acute kidney injury) 09/29/2020 Functional dyspepsia 02/11/2018 018 Overview: Added automatically from request for surgery [id number] History of pulmonary embolism 10/30/2016 03/25/2018 History [...] to go to the ED. Admitted to [facility] from 03/12-03/13 without any [facility] imaging and [facility] [...] bleeding episodes/ falls Who is transferred from [facility] for the further evaluation of his dizziness [...] of this encounter (statuses as of 10/30/2023) [facility] of Past illness Narrative* Problem Noted Date Diagnosed Date Resolved Date Cellulitis of left lower extremity 09/29/2020 10/06/2021 [place] (acute kidney injury) 09/29/2020 Functional dyspepsia 02/11/2018 018 Overview: Added automatically from request for surgery [id number] History of pulmonary embolism 10/30/2016 03/25/2018 History [...] to go to the ED. Admitted to [facility] from 03/12-03/13 without any [facility] imaging and [facility] [...] bleeding episodes/ falls Who is transferred from [facility] for the further evaluation of his dizziness [...] of this encounter (statuses as of 11/23/2023) [facility] Danae [facility] Note Date/Time March 02, 2025 3:25 pm [facility] Medical Records Department [address] [place] [address] Instructions for Home/Discharge Instructions 03/02/25 1328 MR#: [id number] Acct: [id number] Name: EDER BREEN Rep #:[id number] : 1955 69 From: Danae Stanton MD [...] MD; Dr. Yoon Kim MD ~ Signed [facility] Work Phone: Discharge summary Author Danae Stanton [facility] Note Date/Time March 02, 2025 1:50 pm [facility] Medical Records Department [address] [place] [address] Discharge Summary 03/02/25 1329 MR#: [id number] Acct: [id number] Name: EDER BREEN Rep #:[id number] : 1955 69 From: Danae Stanton MD PCP: Dr. Hari Oneill, DO Status:AD M IN [facility] Prov[facility] Date of Admission: 02/27/25 Date of Discharge: 03/02/25 Primary Care Physician: Dr. Hari Oneill, DO Consultations 02/27/25 16:00 Consult: Gastroenterology Routine Consulting Provider: [facility] Reason for Consult: abd discomfort, diarrhea, [...] reviewed patient and was concerned about possible [place] syndrome. However, abdominal pain resolved and he [...] % (Auto) 64.6, Lymph % (Auto) 22.2, [place]% (Auto) 8.5, Eos % (Auto) 3.9, Baso [...] (Appointment is with Dr. Beatriz Moncada in [place]. Needs to arrive by 1:25 PM for 1:40 PMappointment) Luis A Singh DO [Med Staff - Active Staff] - Within 2 Weeks Disposition Disposition (needs filled in before D/C Order can be placed): Home, Self Care Charges/Coding Visit Charges Inpatient E&M: 03988 Disch Hosp >30min 03/02/25 1350 <Electronically signed by Danae Stanton MD> Cosigner Signature (if applicable): CC: Dr. Hari Oneill DO; Dr. Danae Stanton MD~ Signed [facility] Work Phone: Evaluation note* Diagnosis halfway current use of anticoagulant therapy Long-term (current) use of anticoagulants Other pulmonary embolism without acute cor pulmonale, unspecified chronicity (HCC) [facility] Diagnosis Dark stools Nonspecific abnormal finding in stool contents Diarrhea, unspecified type [facility]* Diagnosis Functional diarrhea- Primary Morbid obesity (HCC) Morbid obesity [facility]* Diagnosis Partial epilepsy, with intractable epilepsy, pharmacoresistant (HCC)- Primary Localization-related (focal) (partial) epilepsy and epileptic syndromes with simple partial seizures, with intractable epilepsy [facility]* Diagnosis Hypothyroidism, acquired Unspecified hypothyroidism [facility]* Diagnosis Bloating- Primary Flatulence, eructation, and gas pain Diarrhea, unspecified type Weight gain Abnormal weight gain Urinary frequency halfway current use of anticoagulant therapy Long-term (current) use of anticoagulants Abnormal biliary HIDA scan Nonspecific abnormal results of other specified function study Hypothyroidism, acquired Unspecified hypothyroidism Anxiety and depression Dysthymic disorder Appetite increase Polyphagia [facility] Diagnosis Onset Date Resolution Status Abnormal biliary HIDA scan a cute Eating disorder acute Cholelithiasis with chronic cholecystitis chronic [facility] Work Phone: Evaluation note* Diagnosis Functional diarrhea- Primary Fat malabsorption Other specified intestinal malabsorption [facility] Diagnosis Diarrhea, unspecified type- Primary Bloating Flatulence, eructation, and gas pain Weight gain Abnormal weight gain [facility]* Diagnosis Visit for suture removal- Primary Encounter for removal of sutures Visit for wound check Encounter for other specified aftercare [facility] Diagnosis Heartburn- Primary Functional diarrhea Fat malabsorption Other specified intestinal malabsorption [facility]* Diagnosis halfway current use of anticoagulant [...] Abdominal pain, generalized [facility] Hypothyroidism, acquired Unspecified hypothyroidism Dysthymia Dysthymic disorder [facility] Diarrhea, unspecified type- Primary [facility] Diagnosis Diarrhea, unspecified type- Primary Need for pneumococcal vaccination Need for prophylactic vaccination against streptococcus pneumoniae (pneumococcus) Hypothyroidism, acquired Unspecified hypothyroidism Bloating Flatulence, eructation, and gas pain Vitamin D deficiency Unspecified vitamin D deficiency Vitamin B12 deficiency Other B-complex deficiencies Advance care planning Other specified counseling Dysthymia Dysthymic disorder Lactose intolerance Intestinal disaccharidase deficiencies and disaccharide malabsorption [facility]* Diagnosis Partial epilepsy, with intractable epilepsy, pharmacoresistant (HCC)- Primary Localization-related (focal) (partial) epilepsy and epileptic syndromes with simple partial seizures, with intractable epilepsy [facility]* Diagnosis halfway current use of anticoagulant therapy Long-term (current) use of anticoagulants Other pulmonary embolism without acute cor pulmonale, unspecified chronicity (HCC) [facility] Diagnosis halfway current use of anticoagulant therapy Long-term (current) use of anticoagulants Other pulmonary embolism without acute cor pulmonale, unspecified chronicity (HCC) [facility] History of pulmonary embolus (PE) Personal history of pulmonary embolism [facility] Diagnosis Elevated fecal calprotectin- Primary [facility] Diagnosis halfway current use of anticoagulant therapy Long-term (current) use of anticoagulants Other pulmonary embolism without acute cor pulmonale, unspecified chronicity (HCC) [facility] Diagnosis 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- Primary Long-term (current) use of anticoagulants History of pulmonary embolus (PE) Personal history of pulmonary embolism Hypoglycemia Hypoglycemia, unspecified Appetite increase Polyphagia Hypothyroidism, acquired Unspecified hypothyroidism [facility] Diagnosis Hypothyroidism, acquired- Primary Unspecified hypothyroidism Bloating Flatulence, eructation, and gas pain Vitamin D deficiency Unspecified vitamin D deficiency Vitamin B12 deficiency Other B-complex deficiencies Eating disorder, unspecified type Dysthymia Dysthymic disorder Lactose intolerance Intestinal disaccharidase deficiencies and disaccharide malabsorption Dyslipidemia Other and unspecified hyperlipidemia [facility] Diagnosis Dysthymia Dysthymic disorder [facility] Diagnosis Increased appetite- Primary Polyphagia Medication management Encounter for long-term (current) use of other medications [facility] Diagnosis Weight gain- Primary Abnormal weight gain Increased appetite Polyphagia Obesity, Class II, BMI 35-39.9 Obesity, unspecified Hypertension, unspecified type Dyslipidemia Other and unspecified hyperlipidemia [facility]* Diagnosis Bilateral leg edema Edema [facility] Diagnosis Diarrhea, unspecified type- Primary [facility]* Diagnosis Small intestinal bacterial overgrowth- Primary Other specified disorder of intestines [facility] Diagnosis Increased appetite- Primary Polyphagia Weight gain Abnormal weight gain Obesity, Class II, BMI 35-39.9 Obesity, unspecified Hypertension, unspecified type Dyslipidemia Other and unspecified hyperlipidemia Dietary counseling Dietary surveillance and counseling [facility]* Diagnosis Hypothyroidism, acquired- Primary Unspecified hypothyroidism History of pulmonary embolus (PE) Personal history of pulmonary embolism 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 Long-term (current) [...] leg edema Edema [facility] Diagnosis Partial epilepsy, with intractable epilepsy, 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, with intractable epilepsy [facility] Diagnosis Increased appetite- Primary Polyphagia Weight gain Abnormal weight gain Obesity, Class I, BMI 30-34.9 Obesity, unspecified Hypertension, unspecified type Dyslipidemia Other and unspecified hyperlipidemia Dietary counseling Dietary surveillance and counseling [facility] Diagnosis Pain- Primary Generalized pain [facility] Diagnosis Partial epilepsy, with intractable epilepsy, 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, with intractable epilepsy [facility] Diagnosis Partial epilepsy, with intractable epilepsy, pharmacoresistant (HCC)- Primary Localization-related (focal) (partial) epilepsy and epileptic syndromes with simple partial seizures, with intractable epilepsy Seizure (HCC) Other convulsions Chronic anticoagulation Long-term (current) use of anticoagulants 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 Long-term (current) use of anticoagulants Other pulmonary embolism without acute cor pulmonale, unspecified chronicity (HCC) Bilateral leg pain Pain in limb Frequent urination at night Nocturia Poor diet Unspecified nutritional deficiency Weight gain Abnormal weight gain Obesity, Class II, BMI 35-39.9 Obesity, unspecified 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) [facility] Diagnosis Chronic anticoagulation- Primary Long-term [...] unspecified chronicity (HCC) [facility] Diagnosis Partial epilepsy, with intractable epilepsy, 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, with intractable epilepsy [facility] Diagnosis Hypothyroidism, acquired- Primary Unspecified hypothyroidism [...] 35-39.9 Obesity, unspecified [facility] Diagnosis IFG (impaired fasting glucose)- Primary [...] and unspecified hyperlipidemia [facility] Diagnosis Bilateral leg pain Pain in limb [facility]* Diagnosis Hypothyroidism, acquired Unspecified hypothyroidism [facility]* Diagnosis Partial epilepsy, with intractable epilepsy, 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, with intractable epilepsy [facility] Diagnosis Partial epilepsy, with intractable epilepsy, pharmacoresistant (HCC)- Primary Localization-related (focal) (partial) epilepsy and epileptic syndromes with simple partial seizures, with intractable epilepsy [facility] Diagnosis Partial epilepsy, with intractable epilepsy, [...] with intractable epilepsy [facility] Diagnosis Avulsion of toenail of [...] Pain Generalized pain [facility] Diagnosis Pre-operative examination- Primary Preoperative examination, [...] Undiagnosed cardiac murmurs [facility] Diagnosis Pre-operative examination- Primary Preoperative examination, [...] embolism Hypokalemia Hypopotassemia [facility]* Diagnosis Pre-operative examination- Primary Preoperative examination, [...] neck (HCC) Cough [facility]* Diagnosis Pre-operative examination- Primary Preoperative examination, [...] unspecified fever cause documented in this encounter [facility] note* Diagnosis Pre-operative examination- Primary Preoperative examination, [...] cor pulmonale (HCC) documented in this encounter [facility] note* Diagnosis Pre-operative examination- Primary Preoperative examination, [...] of right shoulder [facility] Diagnosis Pre-operative examination- Primary Preoperative examination, [...] with intractable epilepsy documented in this encounter [facility] note* Diagnosis Pre-operative examination- Primary Preoperative examination, [...] (PE)- Primary Personal history of pulmonary embolism 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 Long-term (current) use of anticoagulants Other pulmonary embolism without acute cor pulmonale, unspecified chronicity (HCC) documented in this encounter [facility] note* Diagnosis Pre-operative examination- Primary Preoperative examination, [...] with intractable epilepsy [facility] Diagnosis Pre-operative examination- Primary Preoperative examination, [...] for other reasons [facility] Diagnosis Pre-operative examination- Primary Preoperative examination, [...] leg edema Edema [facility] Diagnosis Pre-operative examination- Primary Preoperative examination, [...] leg edema Edema [facility] note* Diagnosis Pre-operative examination- Primary Preoperative examination, [...] cor pulmonale (HCC) [facility] Diagnosis Pre-operative examination- Primary Preoperative examination, [...] leg edema Edema [facility] Diagnosis Pre-operative examination- Primary Preoperative examination, [...] leg edema Edema [facility]* Diagnosis Pre-operative examination- Primary Preoperative examination, [...] Dysthymia Dysthymic disorder [facility] Diagnosis Pre-operative examination- Primary Preoperative examination, [...] (HCC) Frequent urination at night- Primary Nocturia 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 Long-term (current) use of anticoagulants History of pulmonary embolus (PE) Personal history of pulmonary embolism Nausea Nausea alone Weight gain Abnormal weight gain Overeating Polyphagia Frequent bowel movements Other symptoms involving digestive system Bilateral leg edema Edema Bilateral leg pain Pain in limb [facility] Diagnosis Pre-operative examination- Primary Preoperative examination, [...] involving digestive system [facility] Diagnosis Pre-operative examination- Primary Preoperative [...] pain Early satiety [facility] Diagnosis Pre-operative examination- Primary Preoperative [...] involving digestive system [facility] Diagnosis Pre-operative examination- Primary Preoperative examination, [...] pain Early satiety [facility] Diagnosis Pre-operative examination- Primary Preoperative examination, [...] of pulmonary embolism [facility] Diagnosis Pre-operative examination- Primary Preoperative examination, [...] pain Early satiety [facility]* Diagnosis Pre-operative examination- Primary Preoperative examination, [...] pain Early satiety documented in this encounter [facility] note* Diagnosis Pre-operative examination- Primary Preoperative examination, [...] Pain in limb [facility]* Diagnosis Pre-operative examination- Primary Preoperative examination, [...] Diarrhea, unspecified type [facility] Diagnosis Pre-operative examination- Primary Preoperative examination, [...] Diarrhea, unspecified type [facility]* Diagnosis Pre-operative examination- Primary Preoperative examination, [...] Diarrhea, unspecified type [facility]* Diagnosis Pre-operative examination- Primary Preoperative examination, [...] unspecified gastritis type documented in this encounter [facility] note* Diagnosis Pre-operative examination- Primary Preoperative examination, [...] with intractable epilepsy [facility] Diagnosis Pre-operative examination- Primary Preoperative examination, [...] acquired Unspecified hypothyroidism documented in this encounter [facility] note* Diagnosis Pre-operative examination- Primary Preoperative examination, [...] acquired Unspecified hypothyroidism documented in this encounter [facility] note* Diagnosis Pre-operative examination- Primary Preoperative examination, [...] with intractable epilepsy documented in this encounter [facility] note* Diagnosis Pre-operative examination- Primary Preoperative examination, [...] leg edema Edema [facility]* Diagnosis Pre-operative examination- Primary Preoperative examination, [...] acquired Unspecified hypothyroidism documented in this encounter [facility] note* Diagnosis Pre-operative examination- Primary Preoperative examination, [...] neck (HCC) Melena Blood in stool Polyuria supervisor intermediates (current) use of anticoagulants Long-term (current) use of anticoagulants [facility] this [facility] Diagnosis Onset Date Resolution Status Admit Date Abdominal pain acute February 27, 2025 2:27pm Hypokalemia acute February 27, 20 25 2:27pm Hyponatremia acute February 27, 2 025 2:27pm [facility] Work Phone: Evaluation note* Diagnosis Pre-operative [...] unspecified chronicity (HCC) [facility]* Diagnosis Pre-operative examination- Primary Preoperative examination, [...] Melanoma of right side of neck (HCC) [place] syndrome- Primary Abdominal distention Flatulence, eructation, and gas pain Nausea Nausea alone Diarrhea, unspecified type Hyponatremia Hyposmolality and/or hyponatremia Hypokalemia Hypopotassemia Presence of IVC filter Other postprocedural status Thrombosis Embolism and thrombosis of unspecified site Polyuria Polydipsia Polyphagia Food insecurity documented in this encounter [facility] note* Diagnosis Pre-operative examination- Primary Preoperative examination, [...] Fatigue, unspecified type [facility] Diagnosis Pre-operative examination- Primary Preoperative [...] Fatigue, unspecified type [facility]* Diagnosis Pre-operative examination- Primary Preoperative examination, [...] cor pulmonale (HCC) [facility] Author Lisa Mike [facility] Note Date/Time February 27, 2025 2:39 pm [facility] Medical Records Department [address] [place] [address] H&P Exam - Hospitalist 02/27/25 1426 MR#: [id number] Acct: [id number] Name: EDER BREEN Rep #:[id number] : 1955 69 From: Lisa Mike MD PCP: Dr. Hari Oneill, DO Status:RE G ER Location: ED HPI - General General Date of Admission: 02/27/25 Date of Service: 02/27/25 Chief Complaint: Abdominal pain, nausea, diarrhea HPI Narrative EDER BREEN, is a 69-year-old male history of DVT, seizure disorder, hypothyroidism, depression, GERD, lower extremity edema presented [facility] ED 02/27/2025 with left lower quadrant [...] so he does not eat as much. [facility] Medical History Loss of one eye Wears [...] 71.4 H, Lymph % (Auto) 16.7 L, [place] % (Auto) 9.2, Eos % (Auto) 1.9, [...] Clarity Clear, Urine pH 7.0, Ur Specific [place] 1.010, Urine Protein 15 H, Urine Glucose [...] with numerous abdominal wall collaterals. Reading Location: [id number] Assessment & Plan Assessment/Plan (1) Hyponatremia: (2) [...] Mike MD Charges/Coding Visit Charges Inpatient E&M: 18317 Init Hosp L2 02/27/25 1439 <Electronically signed by Lisa Mike MD> Cosigner Signature (if applicable): CC: Dr. Hari Oneill, DO; Dr. Lisa Mike MD~ Signed [facility] Work Phone: [facility] Work Phone: Hospital Discharge instructionsAdditional Instructions Date of [facility]: [facility] Work Phone: Reason for referral (narrative)* Outpatient Procedure (Routine) - Authorized Specialty Diagnoses / Procedures Referred By Contac t Referred To Contact [facility] Diagnoses Diarrhea, unspecified type Procedures BREATH TEST GLUCOSE BREATH HYDROGEN/METHANE TEST Shanda Lainez APRN.CNP [address] [place] [address] [facility] Disease [address] [address] Referral ID Status Reason Start Date Expiration Date Visits Requested Visits Authorized [id number] Authorized Auto-Generat ed Referral 05/09/2022 05/09/2023 1 1 [facility] for referral (narrative)* Outpatient Procedure (Urgent) - Authorized Specialty Diagnoses / Procedures Referred By Contac t Referred To Contact [facility] Diagnoses Pain Procedures US LEG VEIN DVT UNL VAS LAB DUP-SCAN XTR VEINS UNILATERAL/LIMITED STUDY Aurora Sweet APRN.CNP [address] [place] [address] [address] Referral ID Status Reason Start Date Expiration Date Visits Requested Visits Authorized [id number] Authorized Auto-Generat ed Referral 02/13/2023 02/13/2024 1 1 * Diagnostic Procedure Only (Urgent) - Closed Specialty Diagnoses / Procedures Referred By Contac t Referred To Contact XR IMAGING Diagnoses Pain Procedures XR ANKLE GENERAL 3V AP/LAT/OBL RIGHT RADEX ANKLE COMPLETE MINIMUM 3 VIEWS Aurora Sweet APRN.CORPORATE DEVELOPMENT OFFICER [address] [place] [address] [facility] Referral ID Status Reason Start Date Expiration Date V isits Requested Visits Authorized [id number] Closed Auto-Generate d Referral 02/13/2023 03/14/2024 1 1 * Diagnostic Procedure Only (Urgent) - Closed Specialty Diagnoses / Procedures Referred By Contac t Referred To Contact XR IMAGING Diagnoses Pain Procedures XR KNEE GENERAL 4V AP BOTH/PA BOTH/LAT/MERC RIGHT RADIOLOGIC EXAM KNEE COMPLETE 4/MORE VIEWS Aurora Sweet APRN.CORPORATE DEVELOPMENT OFFICER [address] [place] [address] [facility] Referral ID Status Reason Start Date Expiration Date V isits Requested Visits Authorized [id number] Closed Auto-Generate d Referral 02/13/2023 03/14/2024 1 1 [facility] for referral (narrative)* Outpatient Procedure (Routine) - Authorized Specialty Diagnoses / Procedures Referred By Contac t Referred To Contact [facility] Diagnoses Newly recognized heart murmur Procedures ECHO ECHO TTHRC R-T 2D W/WOM-MODE COMPL SPEC&COLR D Pio Mcclelland PA-C [address] [place] [address] [facility] [place] [address] [place] [address] Referral ID Status Reason Start Date Expiration Date Visits Requested Visits Authorized [id number] Authorized Auto-Generat ed Referral 03/25/2024 05/24/2024 1 1 [facility] for referral (narrative)* Diagnostic Procedure Only (Urgent) - Closed Specialty Diagnoses / Procedures Referred By Contac t Referred To Contact XR IMAGING Diagnoses Pain Procedures XR ANKLE GENERAL 3V AP/LAT/OBL RIGHT RADEX ANKLE COMPLETE MINIMUM 3 VIEWS Aurora Sweet APRN.CORPORATE DEVELOPMENT OFFICER [address] [place] [address] [place] [address] Referral ID Status Reason Start Date Expiration Date V isits Requested Visits Authorized [id number] Closed Auto-Generate d Referral 02/13/2023 03/14/2024 1 1 * Diagnostic Procedure Only (Urgent) - Closed Specialty Diagnoses / Procedures Referred By Contac t Referred To Contact XR IMAGING Diagnoses Pain Procedures XR KNEE GENERAL 4V AP BOTH/PA BOTH/LAT/MERC RIGHT RADIOLOGIC EXAM KNEE COMPLETE 4/MORE VIEWS Aurora Sweet APRN.CORPORATE DEVELOPMENT OFFICER [address] [place] [address] [place] [address] Referral ID Status Reason Start Date Expiration Date V isits Requested Visits Authorized [id number] Closed Auto-Generate d Referral 02/13/2023 03/14/2024 1 1 [facility] for referral (narrative)* Outpatient Procedure (Urgent) - New Request Specialty Diagnoses / Procedures Referred By Contac t Referred To Contact [facility] Diagnoses Cellulitis of lower extremity, unspecified laterality Bilateral leg edema Procedures US LEG VEIN DVT ANGEL LUIS VAS LAB DUP-SCAN XTR VEINS COMPLETE BILATERAL STUDY Suyapa Lira APRN.CORPORATE DEVELOPMENT OFFICER [address] [place] [address] [facility] [place] [address] [place] [address] Referral ID Status Reason Start Date Expiration Date Visits Requested Visits Authorized [id number] New Request Auto-Generat ed Referral 06/10/2024 06/10/2025 1 1 * Diagnostic Procedure Only (Urgent) - Closed Specialty Diagnoses / Procedures Referred By Julio C ramirez Referred To Contact US IMAGING Diagnoses Cellulitis of lower extremity, unspecified laterality Bilateral leg edema Procedures US DVT LOWER BILATERAL DUP-SCAN XTR VEINS COMPLETE BILATERAL STUDY Suyapa Lira APRN.CORPORATE DEVELOPMENT OFFICER [address] [place] [address] [place] [address] Referral ID Status Reason Start Date Expiration Date V isits Requested Visits Authorized [id number] Closed Auto-Generate d Referral 06/10/2024 07/10/2025 1 1 [facility] for referral (narrative)* Diagnostic Procedure Only (Urgent) - Closed Specialty Diagnoses / Procedures Referred By Julio C ramirez Referred To Contact US IMAGING Diagnoses Cellulitis of lower extremity, unspecified laterality Bilateral leg edema Procedures US DVT LOWER BILATERAL DUP-SCAN XTR VEINS COMPLETE BILATERAL STUDY Suyapa Lira APRN.CORPORATE DEVELOPMENT OFFICER [address] [place] [address] [place] [address] Referral ID Status Reason Start Date Expiration Date V isits Requested Visits Authorized [id number] Closed Auto-Generate d Referral 06/10/2024 07/10/2025 1 1 [facility] for referral (narrative)* Outpatient Procedure (Routine) - Authorized Specialty Diagnoses / Procedures Referred By Julio C t Referred To Contact [facility] Diagnoses Bilateral leg edema Bilateral leg pain Procedures PVR ANK PRESS ANGEL LUIS VAS LAB NON-INVAS PHYSIOLOGIC STD EXTREMITY ART 2 LEVEL Suyapa Lira APRN.CORPORATE DEVELOPMENT OFFICER [address] [place] [address] [facility] [place] [address] [facility] [place] [address] Referral ID Status Reason Start Date Expiration Date Visits Requested Visits Authorized [id number] Authorized Auto-Generat ed Referral 4 07/24/2025 1 1 * Consult, Test, Treat (Routine) - Authorized Specialty Diagnoses / Procedures Referred By Contac t Referred To Contact Vascular Surgery Diagnoses Bilateral leg edema Bilateral leg pain Procedures CONSULT TO VASCULAR SURGERY OFFICE/OUTPATIENT [facility] 60 MINUTES Suyapa Lira APRN.CORPORATE DEVELOPMENT OFFICER [address] [place] [id number] Referral ID Status Reason Start Date Expiration Date Visits Requested Visits Authorized [id number] Authorized PCP Requested Referral 4 07/24/2025 1 1 * Consult, Test, Treat (Routine) - Authorized Specialty Diagnoses / Procedures Referred By Contac t Referred To Contact Nutrition Diagnoses Nausea Weight gain Overeating Frequent bowel movements Procedures CONSULT TO NUTRITION THERAPY MEDICAL NUTRITION ASSMT&IVNTJ INDIV EACH 15 [place] Suyapa Lira APRN.CORPORATE DEVELOPMENT OFFICER [address] [place] [address] Referral ID Status Reason Start Date Expiration Date Visits Requested Visits Authorized [id number] Authorized PCP Requested Referral 4 07/24/2025 1 4 * Diagnostic Procedure Only (Routine) - Authorized Specialty Diagnoses / Procedures Referred By Contac t Referred To Contact MOLECULAR & FUNCTIONAL IMAGING Diagnoses Nausea Weight gain Overeating Frequent bowel movements Procedures NM HEPATOBILIARY W EF AND/OR RX HEPATOBIL SYST IMAG INC GB W/PHARMA INTERVENJ Suyapa Lira APRN.CORPORATE DEVELOPMENT OFFICER [address] [place] [address] [facility] Functional [facility] [address] [place], [place] [id number] Referral ID Status Reason Start Date Expiration Date Visits Requested Visits Authorized [id number] Authorized Auto-Generat ed Referral 4 08/23/2025 1 1 * Diagnostic Procedure Only (Routine) - Authorized Specialty Diagnoses / Procedures Referred By Contac t Referred To Contact US IMAGING Diagnoses Nausea Weight gain Overeating Frequent bowel movements Procedures US ABD RIGHT UPPER QUADRANT US ABDOMINAL REAL TIME W/IMAGE LIMITED Suyapa Lira APRN.CNP [address] [place] [address] [place] [address] Referral ID Status Reason Start Date Expiration Date Visits Requested Visits Authorized [id number] Authorized Auto-Generat ed Referral 4 08/23/2025 1 1 [facility] Outpatient Procedure (Routine) - Pending Review Specialty Diagnoses / Procedures Referred By Contac t Referred To Contact [facility] Diagnoses Nausea Abdominal fullness Abdominal bloating Early satiety Diarrhea, unspecified type Procedures COLONOSCOPY DIAGNOSTIC COLONOSCOPY FLX DX W/COLLJ SPEC WHEN PFRMD Jayesh Hernandez MD [address] [place] [address] [facility] [place] [id number] Referral ID Status Reason Start Date Expiration Date Visits Requested Visits Authorized [id number] Pending Review Auto-Generat ed Referral 08/29/2024 08/29/2025 1 1 * Outpatient Procedure (Routine) - Pending Review Specialty Diagnoses / Procedures Referred By Contac t Referred To Contact [facility] Diagnoses Calculus of gallbladder without cholecystitis without obstruction Nausea Abdominal fullness Abdominal bloating Early satiety Procedures EGD DIAGNOSTIC ESOPHAGOGASTRODUODENOSCOP Y TRANSORAL DIAGNOSTIC Jayesh Hernandez MD [address] [place] [address] [facility] [address] [address] Referral ID Status Reason Start Date Expiration Date Visits Requested Visits Authorized [id number] Pending Review Auto-Generat ed Referral 08/29/2024 08/29/2025 1 1 [facility] for referral (narrative)No reason for referral information [facility]WG[facility] Work Phone: Reason for visit Narrative* Diagnostic Procedure Only (Urgent) - Closed Specialty Diagnoses / Procedures Referred By Contac t Referred To Contact XR IMAGING Diagnoses Pain Procedures XR ANKLE GENERAL 3V AP/LAT/OBL RIGHT RADEX ANKLE COMPLETE MINIMUM 3 VIEWS Aurora Sweet, MARKETING TEAM LEAD.CORPORATE DEVELOPMENT OFFICER [address] [place] [address] [place] [address] Referral ID Status Reason Start Date Expiration Date V isits Requested Visits Authorized [id number] Closed Auto-Generate d Referral 02/13/2023 03/14/2024 1 1 [facility] for visit Narrative* Outpatient Procedure (Routine) - Closed Specialty Diagnoses / Procedures Referred By Contac t Referred To Contact [facility] Diagnoses Newly recognized heart murmur Procedures ECHO ECHO TTHRC R-T 2D W/WOM-MODE COMPL SPEC&COLR D Pio Mcclelland PA-C [address] [place] [address] [facility] [place] [address] [place] [address] Referral ID Status Reason Start Date Expiration Date V isits Requested Visits Authorized [id number] Closed Auto-Generate d Referral 03/25/2024 05/24/2024 1 1 [facility] for visit Narrative* Diagnostic Procedure Only (Urgent) - Closed Specialty Diagnoses / Procedures Referred By Contac t Referred To Contact US IMAGING Diagnoses Cellulitis of lower extremity, unspecified laterality Bilateral leg edema Procedures US DVT LOWER BILATERAL DUP-SCAN XTR VEINS COMPLETE BILATERAL STUDY Suyapa Lira, MARKETING TEAM LEAD.CORPORATE DEVELOPMENT OFFICER [address] [place] [address] [place] [address] Referral ID Status Reason Start Date Expiration Date V isits Requested Visits Authorized [id number] Closed Auto-Generate d Referral 06/10/2024 07/10/2025 1 1 [facility] for visit Narrative* Diagnostic Procedure Only (Routine) - Closed Specialty Diagnoses / Procedures Referred By Contac t Referred To Contact US IMAGING Diagnoses Nausea Weight gain Overeating Frequent bowel movements Procedures US ABD RIGHT UPPER QUADRANT US ABDOMINAL REAL TIME W/IMAGE LIMITED Suyapa Lira MARKETING TEAM LEAD.CORPORATE DEVELOPMENT OFFICER [address] [place] [address] [place] [address] Referral ID Status Reason Start Date Expiration Date V isits Requested Visits Authorized [id number] Closed Auto-Generate d Referral 07/24/2024 08/23/2025 1 1 [facility] for visit Narrative* Outpatient Procedure (Routine) - Closed Specialty Diagnoses / Procedures Referred By Lesaac t Referred To Contact [facility] Diagnoses Nausea Abdominal fullness Abdominal bloating Early satiety Diarrhea, unspecified type Procedures COLONOSCOPY DIAGNOSTIC COLONOSCOPY FLX DX W/COLLJ SPEC WHEN Jayesh Robbins MD [address] [place] [address] Phone: tel: fax: [facility] [address] [place] [address] Referral ID Status Reason Start Date Expiration Date V isits Requested Visits Authorized [id number] Closed Auto-Generate d Referral 09/29/2024 12/27/2024 1 1 [facility] for visit Narrative* Outpatient Procedure (Routine) - Closed Specialty Diagnoses / Procedures [facility] Diagnoses Nausea Abdominal bloating Abdominal fullness Early satiety Diarrhea, unspecified type Procedures EGD DIAGNOSTIC ESOPHAGOGASTRODUODENOSC OPY TRANSORAL DIAGNOSTIC Bere Hays APRN.CORPORATE DEVELOPMENT OFFICER [address] [place] [address] Phone: tel: fax: Marjan Tariq MD [address] [place] [address] Phone: tel: fax: Referral ID Status Reason Start Date Expiration Date V isits Requested Visits Authorized [id number] Closed Auto-Generate d Referral 09/30/2024 12/28/2024 1 1 [facility] Advance Directives No Advanced Directives Records FoundDocuments on File Type Date Recorded Patient Prepress Manager Expl anation Advance Directive(s) 03/25/2018 5:32 PM [...] Documents on File Type Date Recorded Patient Prepress Manager Expl anation Advance Directive(s) 05/03/2021 10:01 AM [...] Documents on File Type Date Recorded Patient Prepress Manager Expl anation Advance Directive(s) 05/03/2021 10:01 AM [...] December 08, 2021 8: 37pm Power of Irrigator No December 08, 2021 8:37pm Documents on File Type Date Recorded Patient Prepress Manager Expl anation Advance Directive(s) 03/25/2018 5:32 PM [...] Do you have a Healthcare Power of Irrigator? No February 27, 2025 10:03am Advance Directives No May 06, 2014 9:39am Advance Directive Response Recorded Date/ Time Do you have a Healthcare Power of Irrigator? No February 27, 2025 4:05pm Advance Directives No May 06, 2014 9:39am Advance Directive Response Recorded Date/ Time Do you have a Healthcare Power of Irrigator? No February 27, 2025 4:05pm Do you have a Healthcare Power of Irrigator? No March 05, 2025 11:45am Advance Directives No May 06, 2014 9:39am Advance Directive Response Recorded Date/ Time Do you have a Healthcare Power of Irrigator? No February 27, 2025 4:05pm Do you have a Healthcare Power of Irrigator? No March 06, 2025 5:10pm Advance Directives No May 06, 2014 9:39am Reason for Referral Specialty Diagnoses / Procedures Referred By Contac t Referred To Contact Diagnoses Morbid obesity (HCC) Procedures CONSULT BARIATRIC/METABOLIC INSTITUTE OFFICE/OUTPATIENT [facility] 60-74 MINUTES Pepito Chan MD [address] [place] [address] Referral ID Status Reason Start Date Expiration Date Visits Requested Visits Authorized [id number] Authorized PCP Requested Referral 10/31/2021 10/31/2022 1 1 Specialty Diagnoses / Procedures Referred By Contac t Referred To Contact Gastroenterology Diagnoses Functional diarrhea Procedures CONSULT TO GASTROENTEROLOGY OFFICE/OUTPATIENT [facility] 60-74 MINUTES Pepito Chan MD [address] [place] [address] Referral ID Status Reason Start Date Expiration Date Visits Requested Visits Authorized [id number] Authorized PCP Requested Referral 11/14/2021 10/31/2022 1 1 Specialty Diagnoses / Procedures Referred By Contac t Referred To Contact Diagnoses Partial epilepsy, with intractable epilepsy, pharmacoresistant (HCC) Procedures CONSULT EPILEPSY - KETO/DIET EVALUATION OFFICE/OUTPATIENT [facility] 60-74 MINUTES Xavi Xie MD [address] [place] [address] Referral ID Status Reason Start Date Expiration Date Visits Requested Visits Authorized [id number] Authorized PCP Requested Referral 11/09/2021 11/09/2022 1 1 Specialty Diagnoses / Procedures Referred By Contac t Referred To Contact Gastroenterology Diagnoses Functional diarrhea Fat malabsorption Procedures CONSULT TO GASTROENTEROLOGY OFFICE/OUTPATIENT [facility] 60-74 MINUTES Hari Oneill DO [address] [place] [address] Referral ID Status Reason Start Date Expiration Date Visits Requested Visits Authorized [id number] Authorized PCP Requested Referral 12/07/2021 12/07/2022 1 1 Specialty Diagnoses / Procedures Referred By Contac t Referred To Contact Gastroenterology Diagnoses Gastroesophageal reflux disease without esophagitis Generalized abdominal pain Procedures CONSULT TO GASTROENTEROLOGY OFFICE/OUTPATIENT [facility] 60-74 MINUTES Hari Oneill, DO [address] [place] [address] Referral ID Status Reason Start Date Expiration Date Visits Requested Visits Authorized [id number] Authorized PCP Requested Referral 02/27/2022 02/27/2023 1 1 Specialty Diagnoses / Procedures Referred By Contac t Referred To Contact Nutrition Diagnoses Increased appetite Procedures CONSULT TO NUTRITION THERAPY MEDICAL NUTRITION ASSMT&IVNTJ INDIV EACH 15 [place] MEDICAL NUTRITION ASSMT&IVNTJ INDIV EACH 15 [place] MEDICAL NUTRITION ASSMT&IVNTJ INDIV EACH 15 [place] MEDICAL NUTRITION ASSMT&IVNTJ INDIV EACH 15 [place] Hari Oneill, DO [address] [place] [address] Referral ID Status Reason Start Date Expiration Date Visits Requested Visits Authorized [id number] Pending Review PCP Requested Referral 10/12/2022 10/12/2023 1 1 Specialty Diagnoses / Procedures Referred By Contac t Referred To Contact Podiatry Diagnoses Onychomycosis Procedures CONSULT TO PODIATRY OFFICE/OUTPATIENT [facility] 60 MINUTES Suyapa Lira, JONATHAN.[employer]ICER [address] [place] [address] Referral ID Status Reason Start Date Expiration Date Visits Requested Visits Authorized [id number] Authorized PCP Requested Referral 02/05/2024 02/04/2025 1 1 Specialty Diagnoses / Procedures Referred By Contac t Referred To Contact General Surgery Diagnoses Calculus of gallbladder without cholecystitis without obstruction Nausea Abdominal fullness Abdominal bloating Early satiety Procedures CONSULT TO GENERAL SURGERY OFFICE/OUTPATIENT [facility] 60 MINUTES Suyapa Lira, JONATHAN.CORPORATE DEVELOPMENT OFFICER [address] [place] [address] Referral ID Status Reason Start Date Expiration Date Visits Requested Visits Authorized [id number] Authorized PCP Requested Referral 08/15/2024 08/15/2025 1 [...] or prosecute any alcohol or drug abuse patient.[facility] HospitalIn the event this information is protected by the Federal Confidentiality of Alcohol and Drug Abuse Patient Records regulations: The Federal rules restrict any use of the information to criminally investigate or prosecute any alcohol or drug abuse patient.[facility] HospitalIn the event this information is protected by the Federal Confidentiality of Alcohol and Drug Abuse Patient Records regulations: The Federal rules restrict any use of the information to criminally investigate or prosecute any alcohol or drug abuse patient.[facility] HospitalIn the event this information is protected by the Federal Confidentiality of Alcohol and Drug Abuse Patient Records regulations: The Federal rules restrict any use of the information to criminally investigate or prosecute any alcohol or drug abuse patient.[facility] HospitalIn the event this information is protected by the Federal Confidentiality of Alcohol and Drug Abuse Patient Records regulations: The Federal rules restrict any use of the information to criminally investigate or prosecute any alcohol or drug abuse patient.[facility] HospitalIn the event this information is protected by the Federal Confidentiality of Alcohol and Drug Abuse Patient Records regulations: The Federal rules restrict any use of the information to criminally investigate or prosecute any alcohol or drug abuse patient.[facility] HospitalIn the event this information is protected by the Federal Confidentiality of Alcohol and Drug Abuse Patient Records regulations: The Federal rules restrict any use of the information to criminally investigate or prosecute any alcohol or drug abuse patient.[facility] HospitalIn the event this information is protected by the Federal Confidentiality of Alcohol and Drug Abuse Patient Records regulations: The Federal rules restrict any use of the information to criminally investigate or prosecute any alcohol or drug abuse patient.[facility] HospitalIn the event this information is protected by the Federal Confidentiality of Alcohol and Drug Abuse Patient Records regulations: The Federal rules restrict any use of the information to criminally investigate or prosecute any alcohol or drug abuse patient.[facility] HospitalIn the event this information is protected by the Federal Confidentiality of Alcohol and Drug Abuse Patient Records regulations: The Federal rules restrict any use of the information to criminally investigate or prosecute any alcohol or drug abuse patient.[facility] HospitalIn the event this information is protected by the Federal Confidentiality of Alcohol and Drug Abuse Patient Records regulations: The Federal rules restrict any use of the information to criminally investigate or prosecute any alcohol or drug abuse patient.[facility] HospitalIn the event this information is protected by the Federal Confidentiality of Alcohol and Drug Abuse Patient Records regulations: The Federal rules restrict any use of the information to criminally investigate or prosecute any alcohol or drug abuse patient.[facility] HospitalIn the event this information is protected by the Federal Confidentiality of Alcohol and Drug Abuse Patient Records regulations: The Federal rules restrict any use of the information to criminally investigate or prosecute any alcohol or drug abuse patient.[facility] HospitalIn the event this information is protected by the Federal Confidentiality of Alcohol and Drug Abuse Patient Records regulations: The Federal rules restrict any use of the information to criminally investigate or prosecute any alcohol or drug abuse patient.[facility] HospitalIn the event this information is protected by the Federal Confidentiality of Alcohol and Drug Abuse Patient Records regulations: The Federal rules restrict any use of the information to criminally investigate or prosecute any alcohol or drug abuse patient.[facility] HospitalIn the event this information is protected by the Federal Confidentiality of Alcohol and Drug Abuse Patient Records regulations: The Federal rules restrict any use of the information to criminally investigate or prosecute any alcohol or drug abuse patient.[facility] HospitalIn the event this information is protected by the Federal Confidentiality of Alcohol and Drug Abuse Patient Records regulations: The Federal rules restrict any use of the information to criminally investigate or prosecute any alcohol or drug abuse patient.[facility] HospitalIn the event this information is protected by the Federal Confidentiality of Alcohol and Drug Abuse Patient Records regulations: The Federal rules restrict any use of the information to criminally investigate or prosecute any alcohol or drug abuse patient.[facility] HospitalIn the event this information is protected by the Federal Confidentiality of Alcohol and Drug Abuse Patient Records regulations: The Federal rules restrict any use of the information to criminally investigate or prosecute any alcohol or drug abuse patient.[facility] HospitalIn the event this information is protected by the Federal Confidentiality of Alcohol and Drug Abuse Patient Records regulations: The Federal rules restrict any use of the information to criminally investigate or prosecute any alcohol or drug abuse patient.[facility] HospitalIn the event this information is protected by the Federal Confidentiality of Alcohol and Drug Abuse Patient Records regulations: The Federal rules restrict any use of the information to criminally investigate or prosecute any alcohol or drug abuse patient.[facility] HospitalIn the event this information is protected by the Federal Confidentiality of Alcohol and Drug Abuse Patient Records regulations: The Federal rules restrict any use of the information to criminally investigate or prosecute any alcohol or drug abuse patient.[facility] HospitalIn the event this information is protected by the Federal Confidentiality of Alcohol and Drug Abuse Patient Records regulations: The Federal rules restrict any use of the information to criminally investigate or prosecute any alcohol or drug abuse patient.[facility] HospitalIn the event this information is protected by the Federal Confidentiality of Alcohol and Drug Abuse Patient Records regulations: The Federal rules restrict any use of the information to criminally investigate or prosecute any alcohol or drug abuse patient.[facility] HospitalIn the event this information is protected by the Federal Confidentiality of Alcohol and Drug Abuse Patient Records regulations: The Federal rules restrict any use of the information to criminally investigate or prosecute any alcohol or drug abuse patient.[facility] HospitalIn the event this information is protected by the Federal Confidentiality of Alcohol and Drug Abuse Patient Records regulations: The Federal rules restrict any use of the information to criminally investigate or prosecute any alcohol or drug abuse patient.[facility] HospitalIn the event this information is protected by the Federal Confidentiality of Alcohol and Drug Abuse Patient Records regulations: The Federal rules restrict any use of the information to criminally investigate or prosecute any alcohol or drug abuse patient.[facility] HospitalIn the event this information is protected by the Federal Confidentiality of Alcohol and Drug Abuse Patient Records regulations: The Federal rules restrict any use of the information to criminally investigate or prosecute any alcohol or drug abuse patient.[facility] HospitalIn the event this information is protected by the Federal Confidentiality of Alcohol and Drug Abuse Patient Records regulations: The Federal rules restrict any use of the information to criminally investigate or prosecute any alcohol or drug abuse patient.[facility] HospitalIn the event this information is protected by the Federal Confidentiality of Alcohol and Drug Abuse Patient Records regulations: The Federal rules restrict any use of the information to criminally investigate or prosecute any alcohol or drug abuse patient.[facility] HospitalIn the event this information is protected by the Federal Confidentiality of Alcohol and Drug Abuse Patient Records regulations: The Federal rules restrict any use of the information to criminally investigate or prosecute any alcohol or drug abuse patient.[facility] HospitalIn the event this information is protected by the Federal Confidentiality of Alcohol and Drug Abuse Patient Records regulations: The Federal rules restrict any use of the information to criminally investigate or prosecute any alcohol or drug abuse patient.[facility] HospitalIn the event this information is protected by the Federal Confidentiality of Alcohol and Drug Abuse Patient Records regulations: The Federal rules restrict any use of the information to criminally investigate or prosecute any alcohol or drug abuse patient.[facility] HospitalIn the event this information is protected by the Federal Confidentiality of Alcohol and Drug Abuse Patient Records regulations: The Federal rules restrict any use of the information to criminally investigate or prosecute any alcohol or drug abuse patient.[facility] HospitalIn the event this information is protected by the Federal Confidentiality of Alcohol and Drug Abuse Patient Records regulations: The Federal rules restrict any use of the information to criminally investigate or prosecute any alcohol or drug abuse patient.[facility] HospitalIn the event this information is protected by the Federal Confidentiality of Alcohol and Drug Abuse Patient Records regulations: The Federal rules restrict any use of the information to criminally investigate or prosecute any alcohol or drug abuse patient.[facility] HospitalIn the event this information is protected by the Federal Confidentiality of Alcohol and Drug Abuse Patient Records regulations: The Federal rules restrict any use of the information to criminally investigate or prosecute any alcohol or drug abuse patient.[facility] HospitalIn the event this information is protected by the Federal Confidentiality of Alcohol and Drug Abuse Patient Records regulations: The Federal rules restrict any use of the information to criminally investigate or prosecute any alcohol or drug abuse patient.[facility] HospitalIn the event this information is protected by the Federal Confidentiality of Alcohol and Drug Abuse Patient Records regulations: The Federal rules restrict any use of the information to criminally investigate or prosecute any alcohol or drug abuse patient.[facility] HospitalIn the event this information is protected by the Federal Confidentiality of Alcohol and Drug Abuse Patient Records regulations: The Federal rules restrict any use of the information to criminally investigate or prosecute any alcohol or drug abuse patient.[facility] HospitalIn the event this information is protected by the Federal Confidentiality of Alcohol and Drug Abuse Patient Records regulations: The Federal rules restrict any use of the information to criminally investigate or prosecute any alcohol or drug abuse patient.[facility] HospitalIn the event this information is protected by the Federal Confidentiality of Alcohol and Drug Abuse Patient Records regulations: The Federal rules restrict any use of the information to criminally investigate or prosecute any alcohol or drug abuse patient.[facility] HospitalIn the event this information is protected by the Federal Confidentiality of Alcohol and Drug Abuse Patient Records regulations: The Federal rules restrict any use of the information to criminally investigate or prosecute any alcohol or drug abuse patient.[facility] HospitalIn the event this information is protected by the Federal Confidentiality of Alcohol and Drug Abuse Patient Records regulations: The Federal rules restrict any use of the information to criminally investigate or prosecute any alcohol or drug abuse patient.[facility] HospitalIn the event this information is protected by the Federal Confidentiality of Alcohol and Drug Abuse Patient Records regulations: The Federal rules restrict any use of the information to criminally investigate or prosecute any alcohol or drug abuse patient.[facility] HospitalIn the event this information is protected by the Federal Confidentiality of Alcohol and Drug Abuse Patient Records regulations: The Federal rules restrict any use of the information to criminally investigate or prosecute any alcohol or drug abuse patient.[facility] HospitalIn the event this information is protected by the Federal Confidentiality of Alcohol and Drug Abuse Patient Records regulations: The Federal rules restrict any use of the information to criminally investigate or prosecute any alcohol or drug abuse patient.[facility] HospitalIn the event this information is protected by the Federal Confidentiality of Alcohol and Drug Abuse Patient Records regulations: The Federal rules restrict any use of the information to criminally investigate or prosecute any alcohol or drug abuse patient.[facility] HospitalIn the event this information is protected by the Federal Confidentiality of Alcohol and Drug Abuse Patient Records regulations: The Federal rules restrict any use of the information to criminally investigate or prosecute any alcohol or drug abuse patient.[facility] HospitalIn the event this information is protected by the Federal Confidentiality of Alcohol and Drug Abuse Patient Records regulations: The Federal rules restrict any use of the information to criminally investigate or prosecute any alcohol or drug abuse patient.[facility] HospitalIn the event this information is protected by the Federal Confidentiality of Alcohol and Drug Abuse Patient Records regulations: The Federal rules restrict any use of the information to criminally investigate or prosecute any alcohol or drug abuse patient.[facility] HospitalIn the event this information is protected by the Federal Confidentiality of Alcohol and Drug Abuse Patient Records regulations: The Federal rules restrict any use of the information to criminally investigate or prosecute any alcohol or drug abuse patient.[facility] HospitalIn the event this information is protected by the Federal Confidentiality of Alcohol and Drug Abuse Patient Records regulations: The Federal rules restrict any use of the information to criminally investigate or prosecute any alcohol or drug abuse patient.[facility] HospitalIn the event this information is protected by the Federal Confidentiality of Alcohol and Drug Abuse Patient Records regulations: The Federal rules restrict any use of the information to criminally investigate or prosecute any alcohol or drug abuse patient.[facility] HospitalIn the event this information is protected by the Federal Confidentiality of Alcohol and Drug Abuse Patient Records regulations: The Federal rules restrict any use of the information to criminally investigate or prosecute any alcohol or drug abuse patient.[facility] HospitalIn the event this information is protected by the Federal Confidentiality of Alcohol and Drug Abuse Patient Records regulations: The Federal rules restrict any use of the information to criminally investigate or prosecute any alcohol or drug abuse patient.[facility] HospitalIn the event this information is protected by the Federal Confidentiality of Alcohol and Drug Abuse Patient Records regulations: The Federal rules restrict any use of the information to criminally investigate or prosecute any alcohol or drug abuse patient.[facility] HospitalIn the event this information is protected by the Federal Confidentiality of Alcohol and Drug Abuse Patient Records regulations: The Federal rules restrict any use of the information to criminally investigate or prosecute any alcohol or drug abuse patient.[facility] HospitalIn the event this information is protected by the Federal Confidentiality of Alcohol and Drug Abuse Patient Records regulations: The Federal rules restrict any use of the information to criminally investigate or prosecute any alcohol or drug abuse patient.[facility] HospitalIn the event this information is protected by the Federal Confidentiality of Alcohol and Drug Abuse Patient Records regulations: The Federal rules restrict any use of the information to criminally investigate or prosecute any alcohol or drug abuse patient.[facility] HospitalIn the event this information is protected by the Federal Confidentiality of Alcohol and Drug Abuse Patient Records regulations: The Federal rules restrict any use of the information to criminally investigate or prosecute any alcohol or drug abuse patient.[facility] HospitalIn the event this information is protected by the Federal Confidentiality of Alcohol and Drug Abuse Patient Records regulations: The Federal rules restrict any use of the information to criminally investigate or prosecute any alcohol or drug abuse patient.[facility] HospitalIn the event this information is protected by the Federal Confidentiality of Alcohol and Drug Abuse Patient Records regulations: The Federal rules restrict any use of the information to criminally investigate or prosecute any alcohol or drug abuse patient.[facility] HospitalIn the event this information is protected by the Federal Confidentiality of Alcohol and Drug Abuse Patient Records regulations: The Federal rules restrict any use of the information to criminally investigate or prosecute any alcohol or drug abuse patient.[facility] HospitalIn the event this information is protected by the Federal Confidentiality of Alcohol and Drug Abuse Patient Records regulations: The Federal rules restrict any use of the information to criminally investigate or prosecute any alcohol or drug abuse patient.[facility] HospitalIn the event this information is protected by the Federal Confidentiality of Alcohol and Drug Abuse Patient Records regulations: The Federal rules restrict any use of the information to criminally investigate or prosecute any alcohol or drug abuse patient.[facility] HospitalIn the event this information is protected by the Federal Confidentiality of Alcohol and Drug Abuse Patient Records regulations: The Federal rules restrict any use of the information to criminally investigate or prosecute any alcohol or drug abuse patient.[facility] HospitalIn the event this information is protected by the Federal Confidentiality of Alcohol and Drug Abuse Patient Records regulations: The Federal rules restrict any use of the information to criminally investigate or prosecute any alcohol or drug abuse patient.[facility] HospitalIn the event this information is protected by the Federal Confidentiality of Alcohol and Drug Abuse Patient Records regulations: The Federal rules restrict any use of the information to criminally investigate or prosecute any alcohol or drug abuse patient.[facility] HospitalIn the event this information is protected by the Federal Confidentiality of Alcohol and Drug Abuse Patient Records regulations: The Federal rules restrict any use of the information to criminally investigate or prosecute any alcohol or drug abuse patient.[facility] HospitalIn the event this information is protected by the Federal Confidentiality of Alcohol and Drug Abuse Patient Records regulations: The Federal rules restrict any use of the information to criminally investigate or prosecute any alcohol or drug abuse patient.[facility] HospitalIn the event this information is protected by the Federal Confidentiality of Alcohol and Drug Abuse Patient Records regulations: The Federal rules restrict any use of the information to criminally investigate or prosecute any alcohol or drug abuse patient.[facility] HospitalIn the event this information is protected by the Federal Confidentiality of Alcohol and Drug Abuse Patient Records regulations: The Federal rules restrict any use of the information to criminally investigate or prosecute any alcohol or drug abuse patient.[facility] HospitalIn the event this information is protected by the Federal Confidentiality of Alcohol and Drug Abuse Patient Records regulations: The Federal rules restrict any use of the information to criminally investigate or prosecute any alcohol or drug abuse patient.[facility] HospitalIn the event this information is protected by the Federal Confidentiality of Alcohol and Drug Abuse Patient Records regulations: The Federal rules restrict any use of the information to criminally investigate or prosecute any alcohol or drug abuse patient.[facility] HospitalIn the event this information is protected by the Federal Confidentiality of Alcohol and Drug Abuse Patient Records regulations: The Federal rules restrict any use of the information to criminally investigate or prosecute any alcohol or drug abuse patient.[facility] HospitalIn the event this information is protected by the Federal Confidentiality of Alcohol and Drug Abuse Patient Records regulations: The Federal rules restrict any use of the information to criminally investigate or prosecute any alcohol or drug abuse patient.[facility] HospitalIn the event this information is protected by the Federal Confidentiality of Alcohol and Drug Abuse Patient Records regulations: The Federal rules restrict any use of the information to criminally investigate or prosecute any alcohol or drug abuse patient.[facility] HospitalIn the event this information is protected by the Federal Confidentiality of Alcohol and Drug Abuse Patient Records regulations: The Federal rules restrict any use of the information to criminally investigate or prosecute any alcohol or drug abuse patient.[facility] HospitalIn the event this information is protected by the Federal Confidentiality of Alcohol and Drug Abuse Patient Records regulations: The Federal rules restrict any use of the information to criminally investigate or prosecute any alcohol or drug abuse patient.[facility] HospitalIn the event this information is protected by the Federal Confidentiality of Alcohol and Drug Abuse Patient Records regulations: The Federal rules restrict any use of the information to criminally investigate or prosecute any alcohol or drug abuse patient.[facility] HospitalIn the event this information is protected by the Federal Confidentiality of Alcohol and Drug Abuse Patient Records regulations: The Federal rules restrict any use of the information to criminally investigate or prosecute any alcohol or drug abuse patient.[facility] HospitalIn the event this information is protected by the Federal Confidentiality of Alcohol and Drug Abuse Patient Records regulations: The Federal rules restrict any use of the information to criminally investigate or prosecute any alcohol or drug abuse patient.[facility] HospitalIn the event this information is protected by the Federal Confidentiality of Alcohol and Drug Abuse Patient Records regulations: The Federal rules restrict any use of the information to criminally investigate or prosecute any alcohol or drug abuse patient.[facility] HospitalIn the event this information is protected by the Federal Confidentiality of Alcohol and Drug Abuse Patient Records regulations: The Federal rules restrict any use of the information to criminally investigate or prosecute any alcohol or drug abuse patient.[facility] HospitalIn the event this information is protected by the Federal Confidentiality of Alcohol and Drug Abuse Patient Records regulations: The Federal rules restrict any use of the information to criminally investigate or prosecute any alcohol or drug abuse patient.[facility] HospitalIn the event this information is protected by the Federal Confidentiality of Alcohol and Drug Abuse Patient Records regulations: The Federal rules restrict any use of the information to criminally investigate or prosecute any alcohol or drug abuse patient.[facility] HospitalIn the event this information is protected by the Federal Confidentiality of Alcohol and Drug Abuse Patient Records regulations: The Federal rules restrict any use of the information to criminally investigate or prosecute any alcohol or drug abuse patient.[facility] HospitalIn the event this information is protected by the Federal Confidentiality of Alcohol and Drug Abuse Patient Records regulations: The Federal rules restrict any use of the information to criminally investigate or prosecute any alcohol or drug abuse patient.[facility] HospitalIn the event this information is protected by the Federal Confidentiality of Alcohol and Drug Abuse Patient Records regulations: The Federal rules restrict any use of the information to criminally investigate or prosecute any alcohol or drug abuse patient.[facility] HospitalIn the event this information is protected by the Federal Confidentiality of Alcohol and Drug Abuse Patient Records regulations: The Federal rules restrict any use of the information to criminally investigate or prosecute any alcohol or drug abuse patient.[facility] HospitalIn the event this information is protected by the Federal Confidentiality of Alcohol and Drug Abuse Patient Records regulations: The Federal rules restrict any use of the information to criminally investigate or prosecute any alcohol or drug abuse patient.[facility] HospitalIn the event this information is protected by the Federal Confidentiality of Alcohol and Drug Abuse Patient Records regulations: The Federal rules restrict any use of the information to criminally investigate or prosecute any alcohol or drug abuse patient.[facility] HospitalIn the event this information is protected by the Federal Confidentiality of Alcohol and Drug Abuse Patient Records regulations: The Federal rules restrict any use of the information to criminally investigate or prosecute any alcohol or drug abuse patient.[facility] HospitalIn the event this information is protected by the Federal Confidentiality of Alcohol and Drug Abuse Patient Records regulations: The Federal rules restrict any use of the information to criminally investigate or prosecute any alcohol or drug abuse patient.[facility] HospitalIn the event this information is protected by the Federal Confidentiality of Alcohol and Drug Abuse Patient Records regulations: The Federal rules restrict any use of the information to criminally investigate or prosecute any alcohol or drug abuse patient.[facility] HospitalIn the event this information is protected by the Federal Confidentiality of Alcohol and Drug Abuse Patient Records regulations: The Federal rules restrict any use of the information to criminally investigate or prosecute any alcohol or drug abuse patient.[facility] HospitalIn the event this information is protected by the Federal Confidentiality of Alcohol and Drug Abuse Patient Records regulations: The Federal rules restrict any use of the information to criminally investigate or prosecute any alcohol or drug abuse patient.[facility] HospitalIn the event this information is protected by the Federal Confidentiality of Alcohol and Drug Abuse Patient Records regulations: The Federal rules restrict any use of the information to criminally investigate or prosecute any alcohol or drug abuse patient.[facility] HospitalIn the event this information is protected by the Federal Confidentiality of Alcohol and Drug Abuse Patient Records regulations: The Federal rules restrict any use of the information to criminally investigate or prosecute any alcohol or drug abuse patient.[facility] HospitalIn the event this information is protected by the Federal Confidentiality of Alcohol and Drug Abuse Patient Records regulations: The Federal rules restrict any use of the information to criminally investigate or prosecute any alcohol or drug abuse patient.[facility] HospitalIn the event this information is protected by the Federal Confidentiality of Alcohol and Drug Abuse Patient Records regulations: The Federal rules restrict any use of the information to criminally investigate or prosecute any alcohol or drug abuse patient.[facility] HospitalIn the event this information is protected by the Federal Confidentiality of Alcohol and Drug Abuse Patient Records regulations: The Federal rules restrict any use of the information to criminally investigate or prosecute any alcohol or drug abuse patient.[facility] HospitalIn the event this information is protected by the Federal Confidentiality of Alcohol and Drug Abuse Patient Records regulations: The Federal rules restrict any use of the information to criminally investigate or prosecute any alcohol or drug abuse patient.[facility] HospitalIn the event this information is protected by the Federal Confidentiality of Alcohol and Drug Abuse Patient Records regulations: The Federal rules restrict any use of the information to criminally investigate or prosecute any alcohol or drug abuse patient.[facility] HospitalIn the event this information is protected by the Federal Confidentiality of Alcohol and Drug Abuse Patient Records regulations: The Federal rules restrict any use of the information to criminally investigate or prosecute any alcohol or drug abuse patient.[facility] HospitalIn the event this information is protected by the Federal Confidentiality of Alcohol and Drug Abuse Patient Records regulations: The Federal rules restrict any use of the information to criminally investigate or prosecute any alcohol or drug abuse patient.[facility] HospitalIn the event this information is protected by the Federal Confidentiality of Alcohol and Drug Abuse Patient Records regulations: The Federal rules restrict any use of the information to criminally investigate or prosecute any alcohol or drug abuse patient.[facility] HospitalIn the event this information is protected by the Federal Confidentiality of Alcohol and Drug Abuse Patient Records regulations: The Federal rules restrict any use of the information to criminally investigate or prosecute any alcohol or drug abuse patient.[facility] HospitalIn the event this information is protected by the Federal Confidentiality of Alcohol and Drug Abuse Patient Records regulations: The Federal rules restrict any use of the information to criminally investigate or prosecute any alcohol or drug abuse patient.[facility] HospitalIn the event this information is protected by the Federal Confidentiality of Alcohol and Drug Abuse Patient Records regulations: The Federal rules restrict any use of the information to criminally investigate or prosecute any alcohol or drug abuse patient.[facility] HospitalIn the event this information is protected by the Federal Confidentiality of Alcohol and Drug Abuse Patient Records regulations: The Federal rules restrict any use of the information to criminally investigate or prosecute any alcohol or drug abuse patient.[facility] HospitalIn the event this information is protected by the Federal Confidentiality of Alcohol and Drug Abuse Patient Records regulations: The Federal rules restrict any use of the information to criminally investigate or prosecute any alcohol or drug abuse patient.[facility] HospitalIn the event this information is protected by the Federal Confidentiality of Alcohol and Drug Abuse Patient Records regulations: The Federal rules restrict any use of the information to criminally investigate or prosecute any alcohol or drug abuse patient.[facility] HospitalIn the event this information is protected by the Federal Confidentiality of Alcohol and Drug Abuse Patient Records regulations: The Federal rules restrict any use of the information to criminally investigate or prosecute any alcohol or drug abuse patient.[facility] HospitalIn the event this information is protected by the Federal Confidentiality of Alcohol and Drug Abuse Patient Records regulations: The Federal rules restrict any use of the information to criminally investigate or prosecute any alcohol or drug abuse patient.[facility] HospitalIn the event this information is protected by the Federal Confidentiality of Alcohol and Drug Abuse Patient Records regulations: The Federal rules restrict any use of the information to criminally investigate or prosecute any alcohol or drug abuse patient.[facility] HospitalIn the event this information is protected by the Federal Confidentiality of Alcohol and Drug Abuse Patient Records regulations: The Federal rules restrict any use of the information to criminally investigate or prosecute any alcohol or drug abuse patient.[facility] HospitalIn the event this information is protected by the Federal Confidentiality of Alcohol and Drug Abuse Patient Records regulations: The Federal rules restrict any use of the information to criminally investigate or prosecute any alcohol or drug abuse patient.[facility] HospitalIn the event this information is protected by the Federal Confidentiality of Alcohol and Drug Abuse Patient Records regulations: The Federal rules restrict any use of the information to criminally investigate or prosecute any alcohol or drug abuse patient.[facility] HospitalIn the event this information is protected by the Federal Confidentiality of Alcohol and Drug Abuse Patient Records regulations: The Federal rules restrict any use of the information to criminally investigate or prosecute any alcohol or drug abuse patient.[facility] HospitalIn the event this information is protected by the Federal Confidentiality of Alcohol and Drug Abuse Patient Records regulations: The Federal rules restrict any use of the information to criminally investigate or prosecute any alcohol or drug abuse patient.[facility] HospitalIn the event this information is protected by the Federal Confidentiality of Alcohol and Drug Abuse Patient Records regulations: The Federal rules restrict any use of the information to criminally investigate or prosecute any alcohol or drug abuse patient.[facility] HospitalIn the event this information is protected by the Federal Confidentiality of Alcohol and Drug Abuse Patient Records regulations: The Federal rules restrict any use of the information to criminally investigate or prosecute any alcohol or drug abuse patient.[facility] HospitalIn the event this information is protected by the Federal Confidentiality of Alcohol and Drug Abuse Patient Records regulations: The Federal rules restrict any use of the information to criminally investigate or prosecute any alcohol or drug abuse patient.[facility] HospitalIn the event this information is protected by the Federal Confidentiality of Alcohol and Drug Abuse Patient Records regulations: The Federal rules restrict any use of the information to criminally investigate or prosecute any alcohol or drug abuse patient.[facility] HospitalIn the event this information is protected by the Federal Confidentiality of Alcohol and Drug Abuse Patient Records regulations: The Federal rules restrict any use of the information to criminally investigate or prosecute any alcohol or drug abuse patient.[facility] HospitalIn the event this information is protected by the Federal Confidentiality of Alcohol and Drug Abuse Patient Records regulations: The Federal rules restrict any use of the information to criminally investigate or prosecute any alcohol or drug abuse patient.[facility] HospitalIn the event this information is protected by the Federal Confidentiality of Alcohol and Drug Abuse Patient Records regulations: The Federal rules restrict any use of the information to criminally investigate or prosecute any alcohol or drug abuse patient.[facility] HospitalIn the event this information is protected by the Federal Confidentiality of Alcohol and Drug Abuse Patient Records regulations: The Federal rules restrict any use of the information to criminally investigate or prosecute any alcohol or drug abuse patient.[facility] HospitalIn the event this information is protected by the Federal Confidentiality of Alcohol and Drug Abuse Patient Records regulations: The Federal rules restrict any use of the information to criminally investigate or prosecute any alcohol or drug abuse patient.[facility] HospitalIn the event this information is protected by the Federal Confidentiality of Alcohol and Drug Abuse Patient Records regulations: The Federal rules restrict any use of the information to criminally investigate or prosecute any alcohol or drug abuse patient.[facility] HospitalIn the event this information is protected by the Federal Confidentiality of Alcohol and Drug Abuse Patient Records regulations: The Federal rules restrict any use of the information to criminally investigate or prosecute any alcohol or drug abuse patient.[facility] HospitalIn the event this information is protected by the Federal Confidentiality of Alcohol and Drug Abuse Patient Records regulations: The Federal rules restrict any use of the information to criminally investigate or prosecute any alcohol or drug abuse patient.[facility] HospitalIn the event this information is protected by the Federal Confidentiality of Alcohol and Drug Abuse Patient Records regulations: The Federal rules restrict any use of the information to criminally investigate or prosecute any alcohol or drug abuse patient.[facility] HospitalIn the event this information is protected by the Federal Confidentiality of Alcohol and Drug Abuse Patient Records regulations: The Federal rules restrict any use of the information to criminally investigate or prosecute any alcohol or drug abuse patient.[facility] HospitalIn the event this information is protected by the Federal Confidentiality of Alcohol and Drug Abuse Patient Records regulations: The Federal rules restrict any use of the information to criminally investigate or prosecute any alcohol or drug abuse patient.[facility] HospitalIn the event this information is protected by the Federal Confidentiality of Alcohol and Drug Abuse Patient Records regulations: The Federal rules restrict any use of the information to criminally investigate or prosecute any alcohol or drug abuse patient.[facility] HospitalIn the event this information is protected by the Federal Confidentiality of Alcohol and Drug Abuse Patient Records regulations: The Federal rules restrict any use of the information to criminally investigate or prosecute any alcohol or drug abuse patient.[facility] HospitalIn the event this information is protected by the Federal Confidentiality of Alcohol and Drug Abuse Patient Records regulations: The Federal rules restrict any use of the information to criminally investigate or prosecute any alcohol or drug abuse patient.[facility] HospitalIn the event this information is protected by the Federal Confidentiality of Alcohol and Drug Abuse Patient Records regulations: The Federal rules restrict any use of the information to criminally investigate or prosecute any alcohol or drug abuse patient.[facility] HospitalIn the event this information is protected by the Federal Confidentiality of Alcohol and Drug Abuse Patient Records regulations: The Federal rules restrict any use of the information to criminally investigate or prosecute any alcohol or drug abuse patient.[facility] HospitalIn the event this information is protected by the Federal Confidentiality of Alcohol and Drug Abuse Patient Records regulations: The Federal rules restrict any use of the information to criminally investigate or prosecute any alcohol or drug abuse patient.[facility] HospitalIn the event this information is protected by the Federal Confidentiality of Alcohol and Drug Abuse Patient Records regulations: The Federal rules restrict any use of the information to criminally investigate or prosecute any alcohol or drug abuse patient.[facility] HospitalIn the event this information is protected by the Federal Confidentiality of Alcohol and Drug Abuse Patient Records regulations: The Federal rules restrict any use of the information to criminally investigate or prosecute any alcohol or drug abuse patient.[facility] HospitalIn the event this information is protected by the Federal Confidentiality of Alcohol and Drug Abuse Patient Records regulations: The Federal rules restrict any use of the information to criminally investigate or prosecute any alcohol or drug abuse patient.[facility] HospitalIn the event this information is protected by the Federal Confidentiality of Alcohol and Drug Abuse Patient Records regulations: The Federal rules restrict any use of the information to criminally investigate or prosecute any alcohol or drug abuse patient.[facility] HospitalIn the event this information is protected by the Federal Confidentiality of Alcohol and Drug Abuse Patient Records regulations: The Federal rules restrict any use of the information to criminally investigate or prosecute any alcohol or drug abuse patient.[facility] HospitalIn the event this information is protected by the Federal Confidentiality of Alcohol and Drug Abuse Patient Records regulations: The Federal rules restrict any use of the information to criminally investigate or prosecute any alcohol or drug abuse patient.[facility] HospitalIn the event this information is protected by the Federal Confidentiality of Alcohol and Drug Abuse Patient Records regulations: The Federal rules restrict any use of the information to criminally investigate or prosecute any alcohol or drug abuse patient.[facility] HospitalIn the event this information is protected by the Federal Confidentiality of Alcohol and Drug Abuse Patient Records regulations: The Federal rules restrict any use of the information to criminally investigate or prosecute any alcohol or drug abuse patient.[facility] HospitalIn the event this information is protected by the Federal Confidentiality of Alcohol and Drug Abuse Patient Records regulations: The Federal rules restrict any use of the information to criminally investigate or prosecute any alcohol or drug abuse patient.[facility] HospitalIn the event this information is protected by the Federal Confidentiality of Alcohol and Drug Abuse Patient Records regulations: The Federal rules restrict any use of the information to criminally investigate or prosecute any alcohol or drug abuse patient.[facility] HospitalIn the event this information is protected by the Federal Confidentiality of Alcohol and Drug Abuse Patient Records regulations: The Federal rules restrict any use of the information to criminally investigate or prosecute any alcohol or drug abuse patient.[facility] HospitalIn the event this information is protected by the Federal Confidentiality of Alcohol and Drug Abuse Patient Records regulations: The Federal rules restrict any use of the information to criminally investigate or prosecute any alcohol or drug abuse patient.[facility] HospitalIn the event this information is protected by the Federal Confidentiality of Alcohol and Drug Abuse Patient Records regulations: The Federal rules restrict any use of the information to criminally investigate or prosecute any alcohol or drug abuse patient.[facility] HospitalIn the event this information is protected by the Federal Confidentiality of Alcohol and Drug Abuse Patient Records regulations: The Federal rules restrict any use of the information to criminally investigate or prosecute any alcohol or drug abuse patient.[facility] HospitalIn the event this information is protected by the Federal Confidentiality of Alcohol and Drug Abuse Patient Records regulations: The Federal rules restrict any use of the information to criminally investigate or prosecute any alcohol or drug abuse patient.[facility] HospitalIn the event this information is protected by the Federal Confidentiality of Alcohol and Drug Abuse Patient Records regulations: The Federal rules restrict any use of the information to criminally investigate or prosecute any alcohol or drug abuse patient.[facility] Reason for Visit (unrecogniz ed section and content) Reason Comments Consult Specialty Diagnoses / Procedures Referred By Julio C ramirez Referred To Contact General Surgery Diagnoses Calculus of gallbladder without cholecystitis without obstruction Nausea Abdominal fullness Abdominal bloating Early satiety Procedures CONSULT TO GENERAL SURGERY OFFICE/OUTPATIENT [facility] 60 MINUTES Suyapa Lira APRN.CORPORATE DEVELOPMENT OFFICER [address] [place] [address] Referral ID Status Reason Start Date Expiration Date V isits Requested Visits Authorized [id number] Closed PCP Requested Referral 08/15/2024 08/15/2025 1 1 Reason Comments Assessment Patient Education Specialty Diagnoses / Procedures Referred By Julio C ramirez Referred To Contact Nutrition Diagnoses Nausea Weight gain Overeating Frequent bowel movements Procedures CONSULT TO NUTRITION THERAPY MEDICAL NUTRITION ASSMT&IVNTJ INDIV EACH 15 [place] SorayaSuyapa APRN.CORPORATE DEVELOPMENT OFFICER [address] [place] [address] Referral ID Status Reason Start Date Expiration Date Visits Requested Visits Authorized [id number] Authorized PCP Requested Referral 07/24/2025 1 4 Reason Comments Reassessment Patient Education Specialty Diagnoses / Procedures Referred By Contac t Referred To Contact Nutrition Diagnoses Increased appetite Procedures CONSULT TO NUTRITION THERAPY MEDICAL NUTRITION ASSMT&IVNTJ INDIV EACH 15 [place] MEDICAL NUTRITION ASSMT&IVNTJ INDIV EACH 15 [place] MEDICAL NUTRITION ASSMT&IVNTJ INDIV EACH 15 [place] MEDICAL NUTRITION ASSMT&IVNTJ INDIV EACH [address] [place] [address] [place] [address] Referral ID Status Reason Start Date Expiration Date Visits Requested Visits Authorized [id number] Pending Review PCP Requested Referral 10/12/2022 10/12/2023 [...] Fat malabsorption Procedures CONSULT TO GASTROENTEROLOGY OFFICE/OUTPATIENT [facility] MDM 60-74 MINUTES Hari Oneill, DO [address] [place] [address] Referral ID Status Reason Start Date Expiration Date V isits Requested Visits Authorized [id number] Closed PCP Requested Referral 12/07/2021 12/07/2022 1 [...] MDM 60-74 MINUTES Hari Oneill, DO [address] [place] [address] Referral ID Status Reason Start Date Expiration Date V isits Requested Visits Authorized [id number] Closed PCP Requested Referral 02/27/2022 02/27/2023 1 [...] TEST GLUCOSE BREATH HYDROGEN/METHANE TEST Pack, JONATHAN Land.CORPORATE DEVELOPMENT OFFICER [address] [place] [address] [facility] [place] [address] [place] [address] Referral ID Status Reason Start Date Expiration Date V isits Requested Visits Authorized [id number] Closed Auto-Generate d Referral 05/09/2022 05/09/2023 1 1 Reason Comments Medication Authorization Reason Comments Critical INR 5.1 Reason Comments Seizures Reason Onset Date Comments Refill Request 12/06/2022 Reason Comments Orders Reason Comments Research IRB [id number] Reason Comments Pain Pt reported bilatera l leg, hip pain x3 wks. Reason Comments Follow Up 4 month Reason Comments Results Orders Reason Onset Date Comments Refill Request 04/06/2023 Reason Onset Date Comments Refill Request 04/23/2023 Reason Comments Hospital F/U seizure Specialty Diagnoses / Procedures Referred By Contac t Referred To Contact FAMILY MEDICINE Diagnoses hospital follow up Procedures follow up Self Famp [facility] [address] [place] [address] Referral ID Status Reason Start Date Expiration Date Visits Requested Visits Authorized [id number] Outside PCP OON/Self Pay Override 04/27/2023 10/24/2023 [...] [facility] W/PHARMA INTERVENSuyapa Monroy, MARKETING TEAM LEAD.CORPORATE DEVELOPMENT OFFICER [address] [place] [address] [facility] [address] [place] [address] Referral ID Status Reason Start Date Expiration Date V isits Requested Visits Authorized [id number] Closed Auto-Generate d Referral 08/08/2024 09/07/2025 1 1 Reason Comments Results Appointment Reason Comments Results Orders Appointment Reason Comments New Patient Specialty Diagnoses / Procedures Referred By Julio C ramirez Referred To Contact Vascular Surgery Diagnoses Bilateral leg edema Bilateral leg pain Procedures CONSULT TO VASCULAR SURGERY OFFICE/OUTPATIENT NEW HIGH MDM 60 MINUTES Suyapa Lira APRN.CORPORATE DEVELOPMENT OFFICER [address] [place] [address] Referral ID Status Reason Start Date Expiration Date V isits Requested Visits Authorized [id number] Closed PCP Requested Referral 07/24/2024 07/24/2025 1 1 Reason Onset Date Comments Population [facility] Navigation Outreach 09/10/2024 [facility] Reason Comments Follow Up Colons[facility] Reason Onset [...] Request 12/22/2024 Reason Onset Date Comments Population [facility] Navigation Outreach 01/22/2025 [facility] Reason Onset Date Comments Refill Request 01/22/2025 Reason Comments Diarrhea Frequent urination, incontinence x 3 weeksLeft foot pain x 3 days Reason Onset Date Comments [facility] RN 02/11/2025 Chart review per payor request Reason Comments Abdominal Pain Reason Onset Date Comments Refill Request 02/27/2025 Reason Comments Hospital F/U [facility] 02/27-03/02/25. We nt to ER initially for abd pain, nausea and diarrhea. Dx Hyponatremia and Hypokalemia. Urge Urinary Incontinence Reason Comments er f/up Reason Onset Date Comments Results 03/18/2025 Care Teams (unrecognized sec tion and content) Invas Tech Relationship Specialty Start Date End Date Hari Oneill, [address] [place] [address] PCP - General Family Practice 3/7/13 [place] [address] [place] [address] Specialty Member Of Congress Hematology/Oncology 05/20/18 Invas Tech Relationship Specialty Start Date End Date Hari Oneill, DO [address] [facility] [place] [place] [address] PCP - General Family Practice 10/10/12 [place] [address] [place] [address] Specialty Member Of Congress Hematology/Oncology 05/20/18 Invas Tech Relationship Specialty Start Date End Date Hari Oneill, DO [address] [facility] [place] [address] PCP - General Family Practice 10/10/12 [place] [address] [place] [address] Specialty Member Of [employer] Hematology/Oncology 05/20/18 Invas Tech Relationship Specialty Start Date End Date Hari Oneill, DO [address] [facility] [place] [place] [address] PCP - General Family Practice 10/10/12 Amelia Bennett, DARREN [address] [facility] [address] Specialty Member Of [employer] Hematology/Oncology 05/20/18 Invas Tech Relationship Specialty Start Date End Date Hari Oneill, DO [address] [place] [address] PCP - General Family Practice 10/10/12 [place] [address] [place] [address] Specialty Member Of [employer] Hematology/Oncology 05/20/18 Invas Tech Relationship Specialty Start Date End Date Hari Oneill, DO [address] [facility] [place] [address] PCP - General Family Practice 10/10/12 [place] [address] [place] [address] Specialty Member Of [employer] Hematology/Oncology 05/20/18 Invas Tech Relationship Specialty Start Date End Date Hari Oneill, DO [address] [facility] [place] [address] PCP - General Family Practice 10/10/12 [place] [address] [place] [address] Specialty Member Of [employer] Hematology/Oncology 05/20/18 Invas Tech Relationship Specialty Start Date End Date Hari Oneill, DO [address] [facility] [place] [address] PCP - General Family Practice 10/10/12 [place] [address] [place] [address] Specialty Member Of [employer] Hematology/Oncology 05/20/18 Invas Tech Relationship Specialty Start Date End Date Hari Oneill, DO [address] [facility] [place] [place] [address] PCP - General Family Practice 10/10/12 Amelia Bennett, DARREN [address] [place] [address] Specialty Member Of [employer] Hematology/Oncology 05/20/18 Invas Tech Relationship Specialty Start Date End Date Hari Oneill, DO [address] [facility] [place] [address] PCP - General Family Practice 10/10/12 [place] [address] [place] [address] Specialty Member Of [employer] Hematology/Oncology 05/20/18 Invas Tech Relationship Specialty Start Date End Date Hari Oneill, DO [address] [facility] [place] [place] [address] PCP - General Family Practice 10/10/12 [place] [address] [place] [address] Specialty Member Of [employer] Hematology/Oncology 05/20/18 Invas Tech Relationship Specialty Start Date End Date Hari Oneill, DO [address] [facility] [place] [address] PCP - General Family Practice 10/10/12 Amelia Bennett, DARREN [address] [place] [address] Specialty Member Of [employer] Hematology/Oncology 05/20/18 Invas Tech Relationship Specialty Start Date End Date Hari Oneill, DO [address] [facility] [place] [address] PCP - General Family Practice 10/10/12 Amelia Bennett, DARREN [address] [place] [address] Specialty Member Of [employer] Hematology/Oncology 05/20/18 Invas Tech Relationship Specialty Start Date End Date Hari Oneill, DO [address] [facility] [place] [address] PCP - General Family Practice 10/10/12 Amelia Bennett, DARREN [address] [place] [address] Specialty Member Of [employer] Hematology/Oncology 05/20/18 Invas Tech Relationship Specialty Start Date End Date Hari Oneill, DO [address] [facility] [place] [address] PCP - General Family Medicine 10/10/12 Amelia Bennett, RN [address] [place] [address] Specialty Member Of [employer] Hematology/Oncology 05/20/18 Invas Tech Relationship Specialty Start Date End Date Hari Oneill, DO [address] [facility] [place] [address] PCP - General Family Medicine 10/10/12 Amelia Bennett, RN [address] [place] [address] Specialty Member Of [employer] Hematology/Oncology 05/20/18 Invas Tech Relationship Specialty Start Date End Date Hari Oneill, DO [address] [facility] [place] [place] [address] PCP - General Family Medicine 10/10/12 Amelia Bennett, RN [id number] [place] [address], [place] [address] Specialty Member Of [employer] Hematology/Oncology 05/20/18 Invas Tech Relationship Specialty Start Date End Date Hari Oneill, DO [address] [facility] [place] [address] PCP - General Family Medicine 10/10/12 Amelia Bennett, RN [address] [place] [address] Specialty Member Of [employer] Hematology/Oncology 05/20/18 Invas Tech Relationship Specialty Start Date End Date Hari Oneill, DO [address] [facility] [place] [address] PCP - General Family Medicine 10/10/12 Amelia Bennett, [place] [id number] [place] [address] Specialty Member Of Congress Hematology/Oncology 05/20/18 Invas Tech Relationship Specialty Start Date End Date Hari Oneill, DO [address] [facility] [place] [address] PCP - General Family Medicine 10/10/12 [place] [address] [place] [address] Specialty Member Of [employer] Hematology/Oncology 05/20/18 Invas Tech Relationship Specialty Start Date End Date Hari Oneill, DO [address] [facility] [place] [address] PCP - General Family Medicine 10/10/12 Amelia Bennett, [place] [id number] [place] [address] Specialty Member Of [employer] Hematology/Oncology 05/20/18 Invas Tech Relationship Specialty Start Date End Date Hari Oneill, DO [address] [facility] [place] [address] PCP - General Family Medicine 10/10/12 [place] [address] [place] [address] Specialty Member Of [employer] Hematology/Oncology 05/20/18 Invas Tech Relationship Specialty Start Date End Date Hari Oneill, DO [address] [facility] [place] [address] PCP - General Family Medicine 10/10/12 [place] [address] [place] [address] Specialty Member Of [employer] Hematology/Oncology 05/20/18 Invas Tech Relationship Specialty Start Date End Date Hari Oneill, DO [address] [facility] [place] [address] PCP - General Family Medicine 10/10/12 [place] [address] [place] [address] Specialty Member Of [employer] Hematology/Oncology 05/20/18 Invas Tech Relationship Specialty Start Date End Date Hari Oneill, DO [address] [facility] [place] [address] PCP - General Family Medicine 10/10/12 [place] [address] [place] [address] Specialty Member Of [employer] Hematology/Oncology 05/20/18 Invas Tech Relationship Specialty Start Date End Date Hari Oneill, DO [address] [facility] [place] [address] PCP - General Family Medicine 10/10/12 [place] [address] [place] [address] Specialty Member Of [employer] Hematology/Oncology 05/20/18 Invas Tech Relationship Specialty Start Date End Date Hari Oneill, DO [address] [facility] [place] [address] PCP - General Family Medicine 10/10/12 [place] [address] [place] [address] Specialty Member Of [employer] Hematology/Oncology 05/20/18 Invas Tech Relationship Specialty Start Date End Date Hari Oneill, DO [address] [place] [address] PCP - General Family Medicine 10/10/12 [place] [address] [place] [address] Specialty Member Of [employer] Hematology/Oncology 05/20/18 Invas Tech Relationship Specialty Start Date End Date Hari Oneill, DO [address] [facility] [place] [address] PCP - General Family Medicine 10/10/12 [place] [address] [place] [address] Specialty Member Of [employer] Hematology/Oncology 05/20/18 Invas Tech Relationship Specialty Start Date End Date Hari Oneill, DO [address] [facility] [place] [address] PCP - General Family Medicine 10/10/12 [place] [address] [place] [address] Specialty Member Of [employer] Hematology/Oncology 05/20/18 Invas Tech Relationship Specialty Start Date End Date Hari Oneill, DO [address] [facility] [place] [address] PCP - General Family Medicine 10/10/12 Amelia Bennett, RN [address] [facility] [place] [address] Specialty Member Of [employer] Hematology/Oncology 05/20/18 Invas Tech Relationship Specialty Start Date End Date Hari Oneill, DO [address] [place] [address] PCP - General Family Medicine 10/10/12 Amelia Bennett, RN [address] [place] [address] Specialty Member [employer] Hematology/Oncology 05/20/18 Invas Tech Relationship Specialty Start Date End Date Hari Oneill, DO [address] [place] [address] PCP - General Family Medicine 10/10/12 Amelia Bennett, RN [address] [place] [address] Specialty Member Of [employer] Hematology/Oncology 05/20/18 Invas Tech Relationship Specialty Start Date End Date Hari Oneill, DO [address] [place] [address] PCP - General Family Medicine 10/10/12 Amelia Bennett, RN [address] [place] [address] Specialty Member Of [employer] Hematology/Oncology 05/20/18 Invas Tech Relationship Specialty Start Date End Date Hari Oneill, DO [address] [place] [address] PCP - General Family Medicine 10/10/12 Amelia Bennett, RN [address] [place] [address] Specialty Member Of [employer] Hematology/Oncology 05/20/18 Invas Tech Relationship Specialty Start Date End Date Hari nOeill, DO [address] [place] [address] PCP - General Family Medicine 10/10/12 Amelia Bennett, RN [address] [place] [address] Specialty Member Of [employer] Hematology/Oncology 05/20/18 Invas Tech Relationship Specialty Start Date End Date Hari Oneill, DO [address] [place] [address] PCP - General Family Medicine 10/10/12 Amelia Bennett, RN [address] [place] [address] Specialty Member Of [employer] Hematology/Oncology 05/20/18 Invas Tech Relationship Specialty Start Date End Date Hari Oneill, DO [address] [place] [address] PCP - General Family Medicine 10/10/12 Amelia Bennett, RN [address] [place] [address] Specialty Member Of [employer] Hematology/Oncology 05/20/18 Invas Tech Relationship Specialty Start Date End Date Hari Oneill, DO [address] [place] [address] PCP - General Family Medicine 10/10/12 Amelia Bennett, DARREN [address] [place] [address] Specialty Member Of [employer] Hematology/Oncology 05/20/18 Invas Tech Relationship Specialty Start Date End Date Hari Oneill DO [address] [place] [address] PCP - General Family Medicine 10/10/12 Amelia Bennett, RN [address] [place] [address] Specialty Member Of [employer] Hematology/Oncology 05/20/18 Invas Tech Relationship Specialty Start Date End Date Hari Oneill DO [address] [place] [address] PCP - General Family Medicine 10/10/12 Amelia Bennett, RN [address] [place] [address] Specialty Member Of [employer] Hematology/Oncology 05/20/18 Invas Tech Relationship Specialty Start Date End Date Hari Oneill DO [address] [place] [address] PCP - General Family Medicine 10/10/12 Amelia Bennett, RN [address] [facility] [place] [address] Specialty Member Of [employer] Hematology/Oncology 05/20/18 Invas Tech Relationship Specialty Start Date End Date Hari Oneill DO [address] [facility] [place] [address] PCP - General Family Medicine 10/10/12 Amelia Bennett, RN [address] [facility] [place] [address] Specialty Member Of [employer] Hematology/Oncology 05/20/18 Invas Tech Relationship Specialty Start Date End Date Hari Oneill DO [address] [facility] [place] [address] PCP - General Family Medicine 10/10/12 Amelia Bennett, RN [address] [place] [address] Specialty Member Of [employer] Hematology/Oncology 05/20/18 Invas Tech Relationship Specialty Start Date End Date Hari Oneill DO [address] [facility] [place] [address] PCP - General Family Medicine 10/10/12 Amelia Bennett, DARREN [address] [facility] [place] [address] Specialty Member Of [employer] Hematology/Oncology 05/20/18 Invas Tech Relationship Specialty Start Date End Date Hari Oneill DO [address] [facility] [place] [address] PCP - General Family Medicine 10/10/12 Amelia Bennett, RN [address] [facility] [place] [address] Specialty Member Of [employer] Hematology/Oncology 05/20/18 Invas Tech Relationship Specialty Start Date End Date Hari Oneill DO [address] [facility] [place] [address] PCP - General Family Medicine 10/10/12 Amelia Bennett, RN [address] [place] [address] Specialty Member Of [employer] Hematology/Oncology 05/20/18 Invas Tech Relationship Specialty Start Date End Date Hari Oneill, [address] [place] [address] PCP - General Family Medicine 10/10/12 Amelia Bennett, RN [address] [facility] [place] [address] Specialty Member Of [employer] Hematology/Oncology 05/20/18 Invas Tech Relationship Specialty Start Date End Date Hari Oneill, [address] [facility] [place] [address] PCP - General Family Medicine 10/10/12 Amelia Bennett, RN [address] [facility] [place] [address] Specialty Member Of [employer] Hematology/Oncology 05/20/18 Invas Tech Relationship Specialty Start Date End Date Hari Oneill DO [address] [place] [address] PCP - General Family Medicine 10/10/12 Amelia Bennett, RN [address] [facility] [place] [address] Specialty Member Of [employer] Hematology/Oncology 05/20/18 Invas Tech Relationship Specialty Start Date End Date Hari Oneill DO [address] [place] [address] PCP - General Family Medicine 10/10/12 Invas Tech Relationship Specialty Start Date End Date Hari Oneill DO [address] [facility] [place] [address] PCP - General Family Medicine 10/10/12 Invas Tech Relationship Specialty Start Date End Date Hari Oneill DO [address] [facility] [place] [address] PCP - General Family Medicine 10/10/12 Invas Tech Relationship Specialty Start Date End Date Hari Oneill DO [address] [place] [address] PCP - General Family Medicine 10/10/12 Invas Tech Relationship Specialty Start Date End Date Hari Oneill DO [address] [place] [address] PCP - General Family Medicine 10/10/12 Invas Tech Relationship Specialty Start Date End Date Hari Oneill DO [address] [place] [address] PCP - General Family Medicine 10/10/12 Invas Tech Relationship Specialty Start Date End Date Hari Oneill DO [address] [place] [address] PCP - General Family Medicine 10/10/12 Invas Tech Relationship Specialty Start Date End Date Hari Oneill DO [address] [place] [address] PCP - General Family Medicine 10/10/12 Invas Tech Relationship Specialty Start Date End Date Hari Oneill DO [address] [place] [address] PCP - General Family Medicine 10/10/12 Invas Tech Relationship Specialty Start Date End Date Hari Oneill DO [address] [place] [address] PCP - General Family Medicine 10/10/12 Invas Tech Relationship Specialty Start Date End Date Hari Oneill DO [address] [facility] [place] [address] PCP - General Family Medicine 10/10/12 Invas Tech Relationship Specialty Start Date End Date Hari Oneill DO [address] [place] [address] PCP - General Family Medicine 10/10/12 Invas Tech Relationship Specialty Start Date End Date Hari Oneill DO [address] [facility] [place] [address] PCP - General Family Medicine 10/10/12 Invas Tech Relationship Specialty Start Date End Date Hari Oneill DO [address] [facility] [place] [address] PCP - General Family Medicine 10/10/12 Invas Tech Relationship Specialty Start Date End Date Hari Oneill DO [address] [facility] [place] [address] PCP - General Family Medicine 10/10/12 Invas Tech Relationship Specialty Start Date End Date Hari Oneill DO [address] [facility] [place] [address] PCP - General Family Medicine 10/10/12 Amelia Bennett RN [address] [facility] [place] [address] Specialty Member Of [employer] Hematology/Oncology 05/20/18 05/23/23 Invas Tech Relationship Specialty Start Date End Date Hari Oneill DO [address] [facility] [place] [address] PCP - General Family Medicine 10/10/12 Invas Tech Relationship Specialty Start Date End Date Hari Oneill DO [address] [facility] [place] [address] PCP - General Family Medicine 10/10/12 Invas Tech Relationship Specialty Start Date End Date Hari Oneill, [address] [place] [address] PCP - General Family Medicine 10/10/12 Amelia Bennett, DARREN [address] [place] [address] Specialty Member Of [employer] Hematology/Oncology 05/20/18 05/23/23 Invas Tech Relationship Specialty Start Date End Date Hari Oneill DO [address] [facility] [place] [address] PCP - General Family Medicine 10/10/12 Invas Tech Relationship Specialty Start Date End Date Hari Oneill DO [address] [place] [address] PCP - General Family Medicine 10/10/12 Amelia Bennett RN [address] [facility] [place] [address] Specialty Member Of [employer] Hematology/Oncology 05/20/18 05/23/23 Invas Tech Relationship Specialty Start Date End Date Hari Oneill DO [address] [place] [address] PCP - General Family Medicine 10/10/12 Invas Tech Relationship Specialty Start Date End Date Hari Oneill DO [address] [facility] [place] [address] PCP - General Family Medicine 10/10/12 Invas Tech Relationship Specialty Start Date End Date Hari Oneill DO [address] [facility] [place] [address] PCP - General Family Medicine 10/10/12 Amelia Bennett, RN [address] [facility] [place] [address] Specialty Member Of [employer] Hematology/Oncology 05/20/18 05/23/23 Invas Tech Relationship Specialty Start Date End Date Hari Oneill DO [address] [facility] [place] [address] PCP - General Family Medicine 10/10/12 Invas Tech Relationship Specialty Start Date End Date Hari Oneill DO [address] [facility] [place] [address] PCP - General Family Medicine 10/10/12 Invas Tech Relationship Specialty Start Date End Date Hari Oneill DO [address] [facility] [place] [address] PCP - General Family Medicine 10/10/12 Invas Tech Relationship Specialty Start Date End Date Hari Oneill DO [address] [facility] [place] [address] PCP - General Family Medicine 10/10/12 Invas Tech Relationship Specialty Start Date End Date Hari Oneill DO [address] [facility] [place] [address] PCP - General Family Medicine 10/10/12 Invas Tech Relationship Specialty Start Date End Date Hari Oneill DO [address] [facility] [place] [address] PCP - General Family Medicine 10/10/12 Invas Tech Relationship Specialty Start Date End Date Hari Oneill, [address] [facility] [place] [address] PCP - General Family Medicine 10/10/12 Invas Tech Relationship Specialty Start Date End Date Hari Oneill DO [address] [facility] [place] [address] PCP - General Family Medicine 10/10/12 Invas Tech Relationship Specialty Start Date End Date Hari Oneill DO [address] [facility] [place] [address] PCP - General Family Medicine 10/10/12 Invas Tech Relationship Specialty Start Date End Date Hari Oneill DO [address] [place] [address] PCP - General Family Medicine 10/10/12 Invas Tech Relationship Specialty Start Date End Date Hari Oneill DO [address] [place] [address] PCP - General Family Medicine 10/10/12 Invas Tech Relationship Specialty Start Date End Date Hari Oneill, [address] [place] [address] PCP - General Family Medicine 10/10/12 Dai Rivera, MARKETING TEAM LEAD.CORPORATE DEVELOPMENT OFFICER [address] [place] [address] Tax Services Manager Family Medicine 07/13/24 Suyapa Lira, JONATHAN.CORPORATE DEVELOPMENT OFFICER [address] [place] [address] Tax Services Manager Family Medicine 07/13/24 Invas Tech Relationship Specialty Start Date End Date Hari Oneill DO [address] [facility] [place] [address] PCP - General Family Medicine 10/10/12 aDi Rivera, MARKETING TEAM LEAD.CORPORATE DEVELOPMENT OFFICER [address] [place] [address] Tax Services ManagerNational Jewish Health 07/13/24 [facility], MARKETING TEAM LEAD.CORPORATE DEVELOPMENT OFFICER [address] [place] [address] [facility] 07/13/24 Invas Tech Relationship Specialty Start Date End Date Hari Oneill DO [address] [facility] [place] [address] PCP - General Family Medicine 10/10/12 Dai Rivera, MARKETING TEAM LEAD.CORPORATE DEVELOPMENT OFFICER [address] [facility] [place] [address] Tax Services ManagerNational Jewish Health 07/13/24 [facility], MARKETING TEAM LEAD.CORPORATE DEVELOPMENT OFFICER [address] [place] [address] [facility] [facility] 07/13/24 Invas Tech Relationship Specialty Start Date End Date Hari Oneill DO [address] [facility] [place] [address] PCP - General Family Medicine 10/10/12 Dai Rivera, MARKETING TEAM LEAD.CORPORATE DEVELOPMENT OFFICER [address] [facility] [place] [address] Tax Services ManagerNational [facility] 07/13/24 SorayaSuyapa, MARKETING TEAM LEAD.CORPORATE DEVELOPMENT OFFICER [address] [facility] [place] [place] [address] Tax Services ManagerNational [facility] Health 07/13/24 Invas Tech Relationship Specialty Start Date End Date Hari Oneill DO [address] [facility] [place] [place] [address] PCP - General Family Medicine 10/10/12 Dai iRvera, MARKETING TEAM LEAD.CORPORATE DEVELOPMENT OFFICER [address] [facility] [place] [place] [address] Tax Services ManagerNational [facility] 07/13/24 Suyapa Lria, MARKETING TEAM LEAD.CORPORATE DEVELOPMENT OFFICER [address] [place] [address] [facility] 07/13/24 Invas Tech Relationship Specialty Start Date End Date Hari Oneill DO [address] [place] [address] PCP - General Family Medicine 10/10/12 Dai Rivera, MARKETING TEAM LEAD.CORPORATE DEVELOPMENT OFFICER [address] [facility] [place] [place] [address] Tax Services ManagerNational [facility] 07/13/24 Suyapa Lira, MARKETING TEAM LEAD.CORPORATE DEVELOPMENT OFFICER [address] [facility] [place] [address] Tax Services ManagerNational [facility] 07/13/24 Invas Tech Relationship Specialty Start Date End Date Hari Oneill DO [address] [place] [address] PCP - General Family Medicine 10/10/12 Dai Rivera, MARKETING TEAM LEAD.CORPORATE DEVELOPMENT OFFICER [address] [place] [address] Tax Services Manager Family [facility] 07/13/24 Suyapa Lira, MARKETING TEAM LEAD.CORPORATE DEVELOPMENT OFFICER [address] [place] [address] Tax Services Manager Family Medicine 07/13/24 Invas Tech Relationship Specialty Start Date End Date Hari Oneill DO [address] [place] [address] PCP - General Family Medicine 10/10/12 Dai Rivera, MARKETING TEAM LEAD.CORPORATE DEVELOPMENT OFFICER [address] [place] [address] Tax Services Manager Family [facility] 07/13/24 Suyapa Lira, MARKETING TEAM LEAD.CORPORATE DEVELOPMENT OFFICER [address] [place] [address] Tax Services ManagerNational [facility] 07/13/24 Invas Tech Relationship Specialty Start Date End Date Hari Oneill DO [address] [place] [address] PCP - General Family Medicine 10/10/12 Dai Rivera, MARKETING TEAM LEAD.CORPORATE DEVELOPMENT OFFICER [address] [place] [address] Tax Services Manager Family Medicine 07/13/24 Suyapa Liar, MARKETING TEAM LEAD.CORPORATE DEVELOPMENT OFFICER [address] [place] [address] Tax Services ManagerNational [facility] 07/13/24 Invas Tech Relationship Specialty Start Date End Date Hari Oneill DO [address] [place] [address] PCP - General Family Medicine 10/10/12 Dai Rivera, MARKETING TEAM LEAD.CORPORATE DEVELOPMENT OFFICER [address] [place] [address] Tax Services Manager Family Medicine 07/13/24 Suyapa Lira, MARKETING TEAM LEAD.CORPORATE DEVELOPMENT OFFICER [address] [place] [address] Tax Services Manager Family Medicine 07/13/24 Invas Tech Relationship Specialty Start Date End Date Hari Oneill DO [address] [place] [address] PCP - General Family Medicine 10/10/12 Dai Rivera, MARKETING TEAM LEAD.CORPORATE DEVELOPMENT OFFICER [address] [place] [address] Tax Services Manager Family Medicine 07/13/24 Suyapa Lira, MARKETING TEAM LEAD.CORPORATE DEVELOPMENT OFFICER [address] [place] [address] [facility] 07/13/24 Invas Tech Relationship Specialty Start Date End Date Hari Oneill DO [address] [place] [address] PCP - General Family Medicine 10/10/12 Dai Rivera, MARKETING TEAM LEAD.CORPORATE DEVELOPMENT OFFICER [address] [place] [address] Tax Services Manager Family Medicine 07/13/24 Suyapa Lira, MARKETING TEAM LEAD.CORPORATE DEVELOPMENT OFFICER [address] [place] [address] Tax Services ManagerNational [facility] 07/13/24 Invas Tech Relationship Specialty Start Date End Date Hari Oneill DO [address] [facility] [place] [place] [address] PCP - General Family Medicine 10/10/12 Dai Rivera, MARKETING TEAM LEAD.CORPORATE DEVELOPMENT OFFICER [address] [facility] [place] [address] Tax Services ManagerNational [facility] 07/13/24 [facility] Center[facility], MARKETING TEAM LEAD.CORPORATE DEVELOPMENT OFFICER [address] [facility] [place] [address] [facility] 07/13/24 Invas Tech Relationship Specialty Start Date End Date Hari Oneill DO [address] [place] [address] PCP - General Family Medicine 10/10/12 Dai Rivera, MARKETING TEAM LEAD.CORPORATE DEVELOPMENT OFFICER [address] [facility] [place] [address] Tax Services ManagerNational [facility] 07/13/24 [facility] CenterS[facility], MARKETING TEAM LEAD.CORPORATE DEVELOPMENT OFFICER [address] [facility] [place] [address] [facility] 07/13/24 Invas Tech Relationship Specialty Start Date End Date Hari Oneill DO [address] [place] [address] PCP - General Family Medicine 10/10/12 Dai Rivera, MARKETING TEAM LEAD.CORPORATE DEVELOPMENT OFFICER [address] [place] [address] Tax Services ManagerNational [facility] 07/13/24 SorayaSuyapa duffy, MARKETING TEAM LEAD.CORPORATE DEVELOPMENT OFFICER [address] [facility] [place] [address] Tax Services Manager Family Medicine 07/13/24 Invas Tech Relationship Specialty Start Date End Date Hari Oneill DO [address] [facility] [place] [address] PCP - General Family Medicine 10/10/12 [facility] Center[facility], MARKETING TEAM LEAD.CORPORATE DEVELOPMENT OFFICER [address] [facility] [place] [address] Tax Services Manager Family Medicine 07/13/24 Invas Tech Relationship Specialty Start Date End Date Hari Oneill DO [address] [facility] [place] [address] PCP - General Family Medicine 10/10/12 Dai Rivera, MARKETING TEAM LEAD.CORPORATE DEVELOPMENT OFFICER [address] [facility] [place] [address] Tax Services Manager Family Medicine 07/13/24 10/24/24 SorayaSuyapa, MARKETING TEAM LEAD.CORPORATE DEVELOPMENT OFFICER [address] [facility] [place] [address] Tax Services Manager Family Medicine 07/13/24 Invas Tech Relationship Specialty Start Date End Date Hari Oneill DO [address] [facility] [place] [address] PCP - General Family Medicine 10/10/12 Suyapa Lira, MARKETING TEAM LEAD.CORPORATE DEVELOPMENT OFFICER [address] [facility] [place] [address] Tax Services Manager Family Medicine 07/13/24 Invas Tech Relationship Specialty Start Date End Date Hari Oneill DO [address] [facility] [place] [address] PCP - General Family Medicine 10/10/12 [facility] Center[facility], MARKETING TEAM LEAD.CORPORATE DEVELOPMENT OFFICER [address] [facility] [place] [address] Tax Services Manager Family [facility] 07/13/24 Invas Tech Relationship Specialty Start Date End Date Hari Oneill DO [address] [facility] [place] [address] PCP - General Family Medicine 10/10/12 [facility] CenterS[facility], MARKETING TEAM LEAD.CORPORATE DEVELOPMENT OFFICER [address] [facility] [place] [address] Tax Services ManagerNational [facility] 07/13/24 Invas Tech Relationship Specialty Start Date End Date Hari Oneill DO [address] [facility] [place] [address] PCP - General Family Medicine 10/10/12 [facility] Center[facility], MARKETING TEAM LEAD.CORPORATE DEVELOPMENT OFFICER [address] [facility] [place] [address] Tax Services Manager Family [facility] 07/13/24 Invas Tech Relationship Specialty Start Date End Date Hari Oneill DO [address] [facility] [place] [address] PCP - General Family Medicine 10/10/12 [facility] Center[facility], MARKETING TEAM LEAD.CORPORATE DEVELOPMENT OFFICER [address] [facility] [place] [address] Tax Services Manager Family [facility] 07/13/24 Paulie Geronimo, MARKETING TEAM LEAD.CORPORATE DEVELOPMENT OFFICER [address] [place] [address] [facility] 01/19/25 Invas Tech Relationship Specialty Start Date End Date Hari Oneill DO [address] [place], [place] [address] PCP - General Family Medicine 10/10/12 [facility] Center[facility], MARKETING TEAM LEAD.CORPORATE DEVELOPMENT OFFICER [address] [place] [address] Tax Services ManagerGeorge C. [facility] Medicine 07/13/24 Paulie Geronimo, MARKETING TEAM LEAD.CORPORATE DEVELOPMENT OFFICER [address] [place] [address] [facility] 01/19/25 Team Status: Active Member Role/Relationship Status [...] Attending Provider Active Start: February 27, 2025 Invas Tech Relationship Specialty Start Date End Date Hari Oneill DO [address] [place] [address] PCP - General Family Medicine 10/10/12 SorayaSuyapa, MARKETING TEAM LEAD.CORPORATE DEVELOPMENT OFFICER [address] [place], [place] [address] [facility] 07/13/24 Paulie GeronimoJONATHAN.CORPORATE DEVELOPMENT OFFICER [address] [place] [address] [facility] 01/19/25 Team Status: Inactive Member Role/Relationship Status [...] Star t: March 02, 2025 Dr. Lisa iMke MD Other Provider [...] Provider Active S tart: March 02, 2025 Invas Tech Relationship Specialty Start Date End Date aHri Oneill DO [address] [place] [address] PCP - General Family Medicine 10/10/12 Suyapa Lira, MARKETING TEAM LEAD.CORPORATE DEVELOPMENT OFFICER [address] [place] [address] Tax Services Manager Family Medicine 07/13/24 Paulie Geronimo, MARKETING TEAM LEAD.CORPORATE DEVELOPMENT OFFICER [address] [place], [place] [address] Tax Services Manager Family Medicine 01/19/25 Team Status: Active Member [...] Active Star t: March 05, 2025 Dr. Duncna Rashid DO Admit Provider Active Start: March [...] Provider Active Star t: March 12, 2025 Invas Tech Relationship Specialty Start Date End Date Hari Oneill DO [address] [place], [place] [address] PCP - General Family Medicine 10/10/12 [facility] Center[facility], MARKETING TEAM LEAD.CORPORATE DEVELOPMENT OFFICER [address] [place], [place] [address] [facility] 07/13/24 Paulie Geronimo, MARKETING TEAM LEAD.CORPORATE DEVELOPMENT OFFICER [address] [place], [place] [id number] [facility] Medicine 01/19/25 Invas Tech Relationship Specialty Start Date End Date Hari Oneill DO [address] [place], [place] [id number] PCP - General Family Medicine 10/10/12 Suyapa Lira, MARKETING TEAM LEAD.CORPORATE DEVELOPMENT OFFICER [address] [place], [place] [address] [facility] 07/13/24 Paulie Geronimo, MARKETING TEAM LEAD.CORPORATE DEVELOPMENT OFFICER [address] [place], [place] [address] [facility] 01/19/25 Invas Tech Relationship Specialty Start Date End Date Hari Oneill DO [address] [place], [place] [id number] PCP - General Family Medicine 10/10/12 Suyapa Lira, MARKETING TEAM LEAD.CORPORATE DEVELOPMENT OFFICER [address] [place], [place] [id number] [facility] 07/13/24 Paulie Geronimo, MARKETING TEAM LEAD.CORPORATE DEVELOPMENT OFFICER [address] [place], [place] [id number] [facility] 01/19/25 Goals (unrecognized section and content) Goals may be documented in a n alternate sectionGoals may be documented in an alternate section (unrecognized sect ion and content) No Status Records FoundNo Status Records FoundNo Status Records FoundNo Status Records Found INFORMATION SOURCE (unrecogn ized section and content) DATE CREATED AUTHOR 06/13/2024 [facility] DATE CREATED AUTHOR AUTHOR'S ORGANIZ ATION 02/18/2025 [facility] DATE CREATED AUTHOR AUTHOR'S ORGANIZ ATION 03/20/2025 [facility] DATE CREATED AUTHOR AUTHOR'S ORGANIZ ATION 03/20/2025 [facility] FOR RECORDS PERTAINING TO PATIENTS WHO ARE [...] BE BASED ON THE PRIMARY CLINICAL RECORDS. [facility] provides no warranty or guarantee of the accuracy or completeness of information in this document.
--- NOTE | 2025-03-22 08:23 | PN.HOSP_ITS ---
Reason for Visit Chief Complaint: Abdominal Bloating, Distention, Generalized Weakness and Confusion. Objective Data Objective Data Vital Signs: Vital Signs Temp Pulse Resp BP Pulse Ox O2 Del Method 97.0 F L 73 18 132/63 H 100 Room Air 03/22/25 08:10 03/22/25 08:10 03/22/25 08:10 03/22/25 08:10 03/22/25 08:10 03/22/25 08:10 Oxygen Delivery Method Room Air Weight: 280 lb 6.848 oz Body Mass Index (BMI) 38.0 Intake & Output: Intake and Output for Last 24 Hours 03/20/25 03/21/25 03/22/25 23:59 23:59 23:59 Intake Total 100 / 100 Balance 100 / 100 Lab / Micro Data 03/21/25 23:15 03/21/25 23:15 Labs: Laboratory Results - last 24 hr 03/21/25 23:15: WBC 8.2, RBC 4.03 L, Hgb 11.9 L, Hct 35.7 L, MCV 88.6, MCH 29.5, MCHC 33.3, RDW Std Deviation 46.0 H, RDW Coeff of Vaishnavi 14.2, Plt Count 100 L, MPV 9.9, Immature Gran % (Auto) 1.200 H, Neut % (Auto) 65.2, Lymph % (Auto) 21.3, [place] % (Auto) 8.7, Eos % (Auto) 3.4, Baso % (Auto) 0.2, Absolute Neuts (auto) 5.4, Absolute Lymphs (auto) 1.75, Nucleated RBC % 0, Sodium 134, Potassium 2.9 L, Chloride 97 L, Carbon Dioxide 21.9, Anion Gap 16 H, BUN 18, Creatinine 1.07, Estim Creat Clear Calc 87.27, Est GFR (MDRD) Non-Af 74, BUN/Creatinine Ratio 16.4, Glucose 105 H, Calcium 8.8, Total Bilirubin 0.40, AST 23, ALT 26, Alkaline Phosphatase 138 H, Troponin T High Sens 28 H, Total Protein 6.9, Albumin 4.1, Globulin 2.8, Albumin/Globulin Ratio 1.5, Lipase 50, TSH 0.428 03/21/25 23:46: Urine Color Yellow, Urine Clarity Clear, Urine pH 6.0, Ur Specific Lamar 1.020, Urine Protein Negative, Urine Glucose (UA) Normal, Urine Ketones Negative, Urine Occult Blood Negative, Urine Nitrite Negative, Urine Bilirubin Negative, Urine Urobilinogen Normal, Ur Leukocyte Esterase Negative, Urine RBC 0 SEEN, Urine WBC 0 SEEN, Ur Squamous Epith Cells 0 SEEN, Urine Bacteria 0 SEEN, Urine Mucus 0 SEEN 03/22/25 02:40: Troponin T Hi Sens 2 Hr 25 H 03/22/25 06:05: PT 13.6, INR 1.0 Radiography Diagnostic Testing: Radiology Impression Abdomen/Pelvis CT 03/22/25 01:45 IMPRESSION: Unchanged narrowing of the mid aspect of the sigmoid colon, possibly secondary to spasm and/or stricture. Again is noted significant gaseous distention of the transverse colon. It measures 12.9 cm in its largest transverse dimension on the current exam without perforation or pneumatosis coli. Unchanged prominent venous collaterals in the anterior abdominal davis. Unchanged retroperitoneal lymphadenopathy with the largest lymph node measuring 1.3 cm. Unchanged mild bilateral hydroureteronephrosis, probably reflux from distended bladder. Mild bilateral basilar atelectatic pulmonary changes. Unremarkable IVC filter. Unchanged moderate gastroparesis. Unchanged mild diffuse thickening of the stomach, probably gastritis. Unchanged impacted gallstone at the neck of the distended gallbladder without definite CT evidence of acute cholecystitis. Chronic changes of mesenteric panniculitis, unchanged. Reading [facility] Brain [facility] 03/22/25 01:45 IMPRESSION: No CT evidence for acute brain abnormality. Reading Location: [facility] Chest X-Ray 03/22/25 02:00 IMPRESSION: Unchanged bilateral basilar atelectatic airspace disease. Moderate gaseous distention of the colon. Secondary bilateral elevation of the hemidiaphragms, mildly progressed. Reading [facility] Rhythm Strip Rhythm Strip: Sinus Rhythm Rate: 85 Ectopy: None Physical Exam Narrative Seen and examined Patient came yesterday ED with similar complaints for which was admitted last time. Abdominal distention with gaseous feeling, no significant abdominal pain but pressure from distention, bloating and nausea sensation. Dizziness. He is passing flatus. He said he is moving his bowel though initially was constipated but last few more loose but last 1 was well-formed with no blood. No fever Physical exam General: Alert, Oriented x3, Cooperative. Obesity grade 2 BMI 38.0 kg/m? HEENT: Atraumatic, PERRLA, EOMI, Normocephalic. Oral: No Gingival or Mucosal Lesions/ Ulcerations Neck: Supple, No JVD, Negative Carotid Bruits Chest wall/Lungs: Air entry diminished in bilateral lung bases. No crepitation/rhonchi Cardiovascular: Regular rate and rhythm, Normal S1,S2, No M/G/R Abdomen: Bowel Sounds Present, Soft, large gaseous distention.No significant tenderness. : No dysuria. No renal angle tenderness. No suprapubic tenderness. Extremities: No edema, Capillary Refill Less than 3 Seconds Skin: No rashes, No breakdown Musculoskeletal: No Tenderness to Palpation of Joints or Extremities Neurological: Cranial nerves II-XII grossly intact, DTR 2+/4. No acute focal neurological deficit. Psych/Mental Status: Normal Affect, Appropriate. Assessment & Plan Assessment/Plan (1) Hypokalemia: (2) Generalized weakness: (3) Ambulatory dysfunction: (4) Chronic intestinal pseudo-obstruction: (5) Nausea: (6) Abdominal pain: QUALIFIERS: Abdominal location: unspecified location Qualified Code(s): R10.9 - Unspecified abdominal pain (7) Colon distention: (8) Acute metabolic encephalopathy: (9) Obesity (BMI 30-39.9): (10) History of DVT (deep vein thrombosis): (11) Chronic anticoagulation: PLAN: Plan 69-year-old gentleman admitted for left lower quadrant abdominal pain for which she was last hospitalized in first week of March 2025. Patient patient is irritable migraine not able to give detailed history. Too weak to stand. Lives by himself. 1. Hypokalemia of 2.9 mmol/L present on admission - Admit to general medical floor with telemetry monitoring under observation status. Give supplemental KCl and then recheck level in a.m. to ensure repletion. Magnesium low normal 1.7. Started on IV potassium phosphate. Serum potassium pending 2. Persistent abdominal pain and distention probably due to chronic intestinal pseudoobstruction/Holderness syndrome: During previous admission he had colonoscopy. 03/22: Today, patient does not have significant abdominal pain but pressure/discomfort from abdominal distention. Discussed with GI Dr. Singh about similar natural course like last time. Might need referral to tertiary care center as an outpatient for detailed evaluation of colonic inertia/increased transit time complicated with pseudoobstruction with retroperitoneal lymphadenopathy and bilateral mild hydroureteronephrosis Patient had CT abdomen which shows similar finding including unchanged narrowing at the mid aspect of sigmoid colon with significant gaseous distention of transverse colon about 12.9 cm without perforation or pneumatosis coli. Prominent venous collaterals in the anterior abdominal wall with unchanged retroperitoneal lymphadenopathy with the largest lymph node about 1.3 cm. Findings are unchanged. Mild bilateral hydroureteronephrosis probably reflects thrombus. Bladder, unremarkable IC filter. Mild diffuse thickening of the stomach likely due to gastritis and moderate gastroparesis. Impacted stone in the GB neck distended GB. No definite evidence of acute cholecystitis. Mesenteric panniculitis 03/11/2025olonoscopy as below. During previous admission, diagnosis was chronic intestinal pseudoobstruction. The patient was treated with metoclopramide, azithromycin, octreotide Augmentin and acetylcholinesterase inhibitor pyridostigmine bromide and was discharged on pyridostigmine and Augmentin . Patient has follow-up with GI on coming Sunday Impressions : - Preparation of the colon was fair. - Dilated in the descending colon, at the splenic flexure, in the transverse colon, at the hepatic flexure and in the ascending colon. Biopsied. - Stool in the transverse colon, at the hepatic flexure, in the ascending colon and in the cecum. Generalized Weakness with Ambulatory Dysfunction PT/OT and Case Management to consult 4. Acute Metabolic Encephalopathy -TSH normal. B12 pending check TSH, B12, Folate, HgbA1c, DANNA and UDS to evaluate for potentially reversible causes of confusion. Otherwise, continue supportive care and monitor for improvement. 5. Obesity (class II); with BMI of 38 this admission adding to the burden of disease outlined from #1 - #4 - Weight loss will be recommended when sensorium clears. Check TSH. This complicates his case and may hamper recovery. 6. History of DVT; on warfarin with chronic lower extremity lymphedema with chronic venous stasis and IVC filter adding to the medical complexity: INR 1.0. Continue warfarin 7.5 mg daily. Goal INR between 2-3 8. Seizure disorder; on lacosamide twice daily, lamotrigine twice daily, zonisamide twice daily and levetiracetam twice daily - Continue home regimen. 9. Thrombocytopenia with platelet count of 100K present on admission -monitor CBC 10. Mildly elevated troponin T of 28 ng/L -: Repeat troponins 25, ACS ruled out. Indeterminant. Probably due to increased cardiac demand 11. Essential hypertension; on furosemide -hold furosemide 12. History of hyperlipidemia; currently not on treatment - 13. Hypothyroidism; on levothyroxine - Continue levothyroxine as before and check TSH. 14. History of RAHUL - Stable with hemoglobin of 11.9 g/dL and MCV of 88.6 fL this admission. 16. History of Hodgkin's lymphoma - Noted. 17. BPH; on tamsulosin - Resume tamsulosin as previous. 18. OA; on ibuprofen every 6 hours as needed - We will start acetaminophen as noted in #3. 19. DVT prophylaxis - Patient is on warfarin for #6 which will be continued with limited bridging options if INR is low due to low platelet count of 100K. Total time: Approximately (but not less than) 85 minutes. Laboratory Results 03/21/25 23:15: WBC 8.2, RBC 4.03 L, Hgb 11.9 L, Hct 35.7 L, MCV 88.6, MCH 29.5, MCHC 33.3, RDW Std Deviation 46.0 H, RDW Coeff of Vaishnavi 14.2, Plt Count 100 L, MPV 9.9, Immature Gran % (Auto) 1.200 H, Neut % (Auto) 65.2, Lymph % (Auto) 21.3, [place] % (Auto) 8.7, Eos % (Auto) 3.4, Baso % (Auto) 0.2, Absolute Neuts (auto) 5.4, Absolute Lymphs (auto) 1.75, Nucleated RBC % 0, Sodium 134, Potassium 2.9 L , Chloride 97 L, Carbon Dioxide 21.9, Anion Gap 16 H, BUN 18, Creatinine 1.07, Estim Creat Clear Calc 87.27, Est GFR (MDRD) Non-Af 74, BUN/Creatinine Ratio 16.4, Glucose 105 H, Calcium 8.8, Total Bilirubin 0.40, AST 23, ALT 26, Alkaline Phosphatase 138 H, Troponin T High Sens 28 H, Total Protein 6.9, Albumin 4.1, Globulin 2.8, Albumin/Globulin Ratio 1.5, Lipase 50, TSH 0.428 03/21/25 23:46: Urine Color Yellow, Urine Clarity Clear, Urine pH 6.0, Ur Specific Lamar 1.020, Urine Protein Negative, Urine Glucose (UA) Normal, Urine Ketones Negative, Urine Occult Blood Negative, Urine Nitrite Negative, Urine Bilirubin Negative, Urine Urobilinogen Normal, Ur Leukocyte Esterase Negative, Urine RBC 0 SEEN, Urine WBC 0 SEEN, Ur Squamous Epith Cells 0 SEEN, Urine Bacteria 0 SEEN, Urine Mucus 0 SEEN 03/22/25 02:40: Magnesium Pending, Troponin T Hi Sens 2 Hr 25 H, Triglycerides Pending, Cholesterol Pending, LDL Cholesterol, Calc Pending, VLDL Cholesterol Pending, HDL Cholesterol Pending, Cholesterol/HDL Ratio Pending, Vitamin B12 Pending 03/22/25 06:05: PT 13.6, INR 1.0 Charges/Coding Addendum Addendum: Total time of the visit including total time spent in counseling or coordination of care, (more than 50% of the total time, spent in obtaining medical information from nurses and other ancillary care providers ,explaining to the patient about labs, imaging, diagnosis and management of active complex medical conditions), detailed history taking, chronic history of DVT discussion with GI, review of labs and imaging is 35 minutes. Visit Charges Inpatient E&M: 67857 Subs Hosp L3
[2025-03-22] MEDS: Lactated Ringers 1,000 ML 70 ML IV ×2 (08:43→21:46)
[2025-03-22] MEDS: 0.9% Saline Lock 10 ML Syringe IV (08:43)
[2025-03-22 09:20] LABS: Troponin T High Sensitivity 23 ng/L (<=22)
[2025-03-22 09:32] LABS: Cholesterol 134 mg/dL (<=200); Low Density Lipoprotein Calc. 83 mg/dL; Magnesium 1.7 mg/dL (1.5-2.2); Triglycerides 78 mg/dL; Very Low Density Lipoprotein 16 mg/dL (5-40); Vitamin B12 274 pg/mL (180-914); cholesterol:hdl ratio screen 3.79
[2025-03-22] MEDS: Potassium Chloride Oral Soln 20 MEQ/15 ML UDC 10 MEQ PO (10:32)
[2025-03-22] MEDS: Na Biphos/Potassium Phosphate PACKET 1 PACKET PO (10:33)
[2025-03-22] MEDS: ZONISAMIDE 100 MG CAPSULE PO ×2 (10:33→21:42)
[2025-03-22 10:47] LABS: Alcohol, Blood (Medical)-Serum < 10.1 mg/dL (<=10.0); FOLATES,SERUM (FOLIC ACID) 11.70 ng/mL (4.60-34.80)
[2025-03-22] MEDS: CLARIFY ORDER NOTE (10:54)
[2025-03-22 11:37] LABS: Troponin T High Sens 2 HR 22 ng/L (<=22)
[2025-03-22 11:52] LABS: Barbiturate Urine NEGATIVE (< 200 ng/mL); Benzodiazepine Urine NEGATIVE (< 200 ng/mL); PCP Urine NEGATIVE (< 25 ng/mL); THC Urine NEGATIVE (< 50 ng/mL)
[2025-03-22] MEDS: Magnesium Sulfate 2 GM in Dextrose 5%-Water (100mL Bag) 100 ML IV (12:27)
[2025-03-22] MEDS: Potassium Phosphate 30 MM in 0.9% Normal Saline (250mL Bag) 250 ML 55 MM IV (12:27)
[2025-03-22 13:38] LABS: Troponin T High Sens 4 HR 22 ng/L (<=22)
[2025-03-22] MEDS: Senna/Docusate Sodium 1 Tablet 2 TABLET PO (21:41)
[2025-03-23 02:00] VITALS: PULSE 81
[2025-03-23 05:26] VITALS: BP 130/67; PULSE 80; RESP 18; TEMP 36.9; O2SAT 94
[2025-03-23 05:52] LABS: Hematocrit 33.4 % (40-54); Hemoglobin 10.8 g/dL (13.0-16.5); Immature Granulocytes Count 0.010 X10^3/uL (0.0-0.0); Mean Corp Hgb Conc 32.3 g/dL (32-36); Mean Corpuscular Volume 90.8 fL (80-94); Mean Platelet Vol. 9.6 fl (6.2-12.0); NRBC Flagged by Analyzer 0 % (0-5); POSITIVE COUNT YES; Platelet Count 91 K/mm3 (150-450); RBC Distribution Width CV 14.0 % (11.6-14.6); RBC Distribution Width SD 46.3 fl (35.1-43.9); Red Blood Count 3.68 M/mm3 (4.6-6.2); White Blood Count 5.6 K/mm3 (4.4-11.0)
[2025-03-23 05:58] LABS: Magnesium 2.4 mg/dL (1.5-2.2)
[2025-03-23 06:00] VITALS: BMI 36.9
[2025-03-23 06:00] LABS: AST(SGOT) 20 U/L (<=37); Alanine Aminotransfer ALT/SGPT 17 U/L (<=46); Albumin, Serum 3.5 g/dL (3.4-4.8); Alkaline Phosphatase 116 U/L (40-129); Anion Gap 10 (5-15); BUN 13 mg/dL (4-19); BUN/Creat Ratio 13.5 RATIO (10-20); Calcium,Total 8.7 mg/dL (7.6-11.0); Carbon Dioxide 21.9 mmol/L (21.0-32.0); Chloride 107 mmol/L (98-108); Estimated Creatinine Clearance 100.41 ml/min (50-250); Globulin 2.3 g/dL (2.2-4.2); Glucose 96 mg/dL (70-99); Potassium 3.6 mmol/L (3.3-5.1)
[2025-03-23 06:04] LABS: Prothrombin Time (Protime)PT. 14.6 SECONDS (11.7-14.9)
[2025-03-23 07:56] VITALS: O2SAT 94
[2025-03-23 10:00] VITALS: BP 118/63; PULSE 74; RESP 18; TEMP 36.8; O2SAT 96
[2025-03-23] MEDS: Senna/Docusate Sodium 1 Tablet 2 TABLET PO (10:10)
[2025-03-23] MEDS: ZONISAMIDE 100 MG CAPSULE PO (10:11)
[2025-03-23] MEDS: Polyethylene Glycol 3350 17 GM PACKET PO (10:15)
--- NOTE | 2025-03-23 11:34 | CASEMGMT ---
Noted no PT or OT recommended from [facility].
--- NOTE | 2025-03-23 11:40 | DCINST_ITS ---
Discharge Instructions DC O2, CPAP, BIPAP needs Home O2 Discharge instructions: No Follow Up Care Test Results: Test results from this visit will be discussed in further detail at your follow- up appointment, if applicable. 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 [facility], pseudo colonic obstruction/colonic inertia Discharge Orders/Prescriptions Prescriptions: New sennosides-docusate sodium [Stimulant Laxative Plus] 8.6-50 mg Tablet 2 tab PO BID Qty: 0 0RF warfarin 5 mg tablet See Rx Instructions .ROUTE .COMPLEX Qty: 50 0RF Rx Instructions: 10 mg (2 tablets) on Sunday, Sunday and Sunday and 7.5 mg (1.5 tablets) on Sunday and Sunday Continued lamotrigine [Lamictal] 200 MG tablet 200 mg PO BID zonisamide 100 MG capsule 100 mg PO BID Patient Comments: 2 tabs at lunch and 2 tabs at hs lacosamide 200 mg tablet 200 mg PO BID levothyroxine 88 mcg tablet 88 mcg PO DAILY levetiracetam 750 mg tablet 1,500 mg PO BID furosemide 40 mg tablet 20 mg PO DAILY tamsulosin 0.4 mg capsule 0.4 mg PO QHS metoclopramide HCl 5 mg tablet 5 mg PO Q6H 30 Days Qty: 120 0RF warfarin 4 mg tablet PO lansoprazole 30 mg capsule,delayed release(DR/EC) 30 mg PO DAILY potassium, sodium phosphates 280-160-250 mg Powder In Packet 1 packet PO BID 10 Days Qty: 20 0RF pyridostigmine bromide 30 mg tablet 30 mg PO DAILY 30 Days Qty: 30 0RF Changed meloxicam 15 mg tablet 7.5 mg PO DAILY PRN (Reason: Arthritis pain) 30 Days Qty: 0 0RF potassium chloride 10 mEq tablet,ER particles/crystals 20 meq PO DAILY 30 Days Qty: 0 0RF Discontinued warfarin 7.5 mg tablet 7.5 mg PO DAILY Patient Comments: 10.5mg on Tuesdays, 7.5mg all other days ibuprofen 600 mg tablet 600 mg PO Q6H PRN (Reason: fever or pain) Qty: 20 0RF potassium chloride 20 mEq/15 mL liquid 10 meq PO DAILY amoxicillin-pot clavulanate 875-125 mg Tablet 1 tab PO BID 10 Days Qty: 20 0RF Referrals / Follow Up: Hari Oneill DO [Primary Care Provider] - Friend,DO Luis A [Med Staff - Active Staff] - Within 2 Weeks Disposition Disposition (needs filled in before D/C Order can be placed): Home, Self Care
--- NOTE | 2025-03-23 12:08 | CASEMGMT ---
DARREN CM into pt room, pt sitting up in chair in no distress eating lunch. Pt denies any homegoing needs. Pt has DME. Pt states he did not go to [facility] for outpt therapy as he and his have decided to go to [facility] where they have memberships. Pt states he likes that he does not have to have an appt for there. Noted no therapy recommended. Pt ready for dc this date.
--- NOTE | 2025-03-23 12:32 | PCM.DC.SUM ---
Providers Date of Admission: 03/22/25 Date of Discharge: 03/23/25 Primary Care Physician: Dr. Hari Oneill, DO Consultations 03/22/25 11:49 Consult: Gastroenterology Routine Consulting Provider: [facility] Reason for Consult: Colonic pseudoobstruction, colonic inertia, etiology unclear EMERGENT Consult: No MD Notified: Yes Date Notified: 03/22/25 Time Notified: 11:30 Method of Notification: Verbal Reason For Visit: HYPOKALEMIA, GENERALIZED WEAKNESS, AMB DYSF Diagnosis Discharge Diagnosis (1) Hypokalemia: Status: Acute Code(s): E87.6 - Hypokalemia (2) Generalized weakness: Status: Acute Code(s): R53.1 - Weakness (3) Ambulatory dysfunction: Status: Acute Code(s): R26.2 - Difficulty in walking, not elsewhere classified (4) Chronic intestinal pseudo-obstruction: Status: Acute Code(s): K59.89 - Other specified functional intestinal disorders (5) Nausea: Status: Acute Code(s): R11.0 - Nausea (6) Abdominal pain: Status: Acute Code(s): R10.9 - Unspecified abdominal pain Qualifiers: Abdominal location: unspecified location Qualified Code(s): R10.9 - Unspecified abdominal pain (7) Colon distention: Status: Acute Code(s): K63.89 - Other specified diseases of intestine (8) Acute metabolic encephalopathy: Status: Acute Code(s): G93.41 - Metabolic encephalopathy (9) Obesity (BMI 30-39.9): Status: Acute Code(s): E66.9 - Obesity, unspecified (10) History of DVT (deep vein thrombosis): Status: Acute Code(s): Z86.718 - Personal history of other venous thrombosis and embolism (11) Chronic anticoagulation: Status: Acute Code(s): Z79.01 - roasterman (current) use of anticoagulants Plan 69-year-old gentleman admitted for left lower quadrant abdominal pain for which she was last hospitalized in first week of March 2025. Patient patient is irritable migraine not able to give detailed history. Too weak to stand. Lives by himself.Patient was admitted with similar complaints. Abdominal distention with gaseous feeling, no significant abdominal pain but pressure from distention, bloating and nausea sensation. Dizziness. He is passing flatus. He said he is moving his bowel though initially was constipated but last few more loose but last 1 was well-formed with 1. Hypokalemia of 2.9 mmol/L present on admission - Admit to general medical floor with telemetry monitoring under observation status. Give supplemental KCl and then recheck level in a.m. to ensure repletion. Magnesium low normal 1.7. Started on IV potassium phosphate. Serum potassium pending 03/23: Hypokalemia is corrected. Serum phosphorus 3.3. Magnesium 2.4 high. Patient on potassium supplement and Neutra-Phos. 2. Persistent abdominal pain and distention probably due to chronic intestinal pseudoobstruction/[place] syndrome: During previous admission he had colonoscopy. 03/22: Today, patient does not have significant abdominal pain but pressure/discomfort from abdominal distention. Discussed with GI Dr. Singh about similar natural course like last time. Might need referral to tertiary care center as an outpatient for detailed evaluation of colonic inertia/increased transit time complicated with pseudoobstruction with retroperitoneal lymphadenopathy and bilateral mild hydroureteronephrosis Patient had CT abdomen which shows similar finding including unchanged narrowing at the mid aspect of sigmoid colon with significant gaseous distention of transverse colon about 12.9 cm without perforation or pneumatosis coli. Prominent venous collaterals in the anterior abdominal wall with unchanged retroperitoneal lymphadenopathy with the largest lymph node about 1.3 cm. Findings are unchanged. Mild bilateral hydroureteronephrosis probably reflects thrombus. Bladder, unremarkable IC filter. Mild diffuse thickening of the stomach likely due to gastritis and moderate gastroparesis. Impacted stone in the GB neck distended GB. No definite evidence of acute cholecystitis. Mesenteric panniculitis 5colonoscopy as below. During previous admission, diagnosis was chronic intestinal pseudoobstruction. The patient was treated with metoclopramide, azithromycin, octreotide Augmentin and acetylcholinesterase inhibitor pyridostigmine bromide and was discharged on pyridostigmine and Augmentin . Patient has follow-up with GI on coming Sunday Impressions : - Preparation of the colon was fair. - Dilated in the descending colon, at the splenic flexure, in the transverse colon, at the hepatic flexure and in the ascending colon. Biopsied. - Stool in the transverse colon, at the hepatic flexure, in the ascending colon and in the cecum. 03/23: Discussed with verification specialist. 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 Advised to follow-up in [facility] verification specialist for further workup and management. Generalized Weakness with Ambulatory Dysfunction PT/OT and Case Management to consult 4. Acute Metabolic Encephalopathy -TSH normal. B12 pending check TSH, B12, Folate, HgbA1c, DANNA and UDS to evaluate for potentially reversible causes of confusion. Otherwise, continue supportive care and monitor for improvement. 5. Obesity (class II); with BMI of 38 this admission adding to the burden of disease outlined from #1 - #4 - Weight loss will be recommended when sensorium clears. Check TSH. This complicates his case and may hamper recovery. 6. History of DVT; on warfarin with chronic lower extremity lymphedema with chronic venous stasis and IVC filter adding to the medical complexity: INR 1.0. Continue warfarin 7.5 mg daily. Goal INR between 2-3 03/23: INR subtherapeutic. Warfarin dose increased to 10 mg on Sunday and 7.5 mg on Sunday, Sunday, and Sunday. Discussed with the pharmacist. 8. Seizure disorder; on lacosamide twice daily, lamotrigine twice daily, zonisamide twice daily and levetiracetam twice daily - Continue home regimen. 9. Thrombocytopenia with platelet count of 100K present on admission -monitor CBC 10. Mildly elevated troponin T of 28 ng/L -: Repeat troponins 25, ACS ruled out. Indeterminant. Probably due to increased cardiac demand 11. Essential hypertension; on furosemide -hold furosemide 12. History of hyperlipidemia; currently not on treatment - 13. Hypothyroidism; on levothyroxine - Continue levothyroxine as before and check TSH. 14. History of RAHUL - Stable with hemoglobin of 11.9 g/dL and MCV of 88.6 fL this admission. 16. History of Hodgkin's lymphoma - Noted. 17. BPH; on tamsulosin - Resume tamsulosin as previous. 18. OA; on ibuprofen every 6 hours as needed -discontinue ibuprofen as patient already on meloxicam. Meloxicam dose decreased to 7.5 mg daily as needed for arthritis 19. DVT prophylaxis - Patient is on warfarin, dose adjusted as mentioned above. New prescription given Discharge medication reconciliation done. Discharge follow-up instructions completed. Discharge process discussed with the patient and all questions were answered to patient's satisfaction. Follow with PCP in 1 to 2 weeks Total time spent, exact 35 minutes on discharge meds reconciliation, examination, coordination of care with nurses and ancillary staff, review of imaging and blood test and discussion with the patient on follow-up instructions. Laboratory Results 03/21/25 23:15: WBC 8.2, RBC 4.03 L, Hgb 11.9 L, Hct 35.7 L, MCV 88.6, MCH 29.5, MCHC 33.3, RDW Std Deviation 46.0 H, RDW Coeff of Vaishnavi 14.2, Plt Count 100 L, MPV 9.9, Immature Gran % (Auto) 1.200 H, Neut % (Auto) 65.2, Lymph % (Auto) 21.3, [place] % (Auto) 8.7, Eos % (Auto) 3.4, Baso % (Auto) 0.2, Absolute Neuts (auto) 5.4, Absolute Lymphs (auto) 1.75, Nucleated RBC % 0, Sodium 134, Potassium 2.9 L, Chloride 97 L, Carbon Dioxide 21.9, Anion Gap 16 H, BUN 18, Creatinine 1.07, Estim Creat Clear Calc 87.27, Est GFR (MDRD) Non-Af 74, BUN/Creatinine Ratio 16.4, Glucose 105 H, Calcium 8.8, Total Bilirubin 0.40, AST 23, ALT 26, Alkaline Phosphatase 138 H, Troponin T High Sens 28 H, Total Protein 6.9, Albumin 4.1, Globulin 2.8, Albumin/Globulin Ratio 1.5, Lipase 50, TSH 0.428 03/21/25 23:46: Urine Color Yellow, Urine Clarity Clear, Urine pH 6.0, Ur Specific [place] 1.020, Urine Protein Negative, Urine Glucose (UA) Normal, Urine Ketones Negative, Urine Occult Blood Negative, Urine Nitrite Negative, Urine Bilirubin Negative, Urine Urobilinogen Normal, Ur Leukocyte Esterase Negative, Urine RBC 0 SEEN, Urine WBC 0 SEEN, Ur Squamous Epith Cells 0 SEEN, Urine Bacteria 0 SEEN, Urine Mucus 0 SEEN 03/22/25 02:40: Magnesium Pending, Troponin T Hi Sens 2 Hr 25 H, Triglycerides Pending, Cholesterol Pending, LDL Cholesterol, Calc Pending, VLDL Cholesterol Pending, HDL Cholesterol Pending, Cholesterol/HDL Ratio Pending, Vitamin B12 Pending 03/22/25 06:05: PT 13.6, INR 1.0 Medications at Discharge Home Medications lamotrigine 200 mg tablet (Lamictal) 200 mg PO BID SEIZURES 03/12/14 lacosamide 200 mg tablet 200 mg PO BID SEIZURES 09/17/19 zonisamide 100 mg capsule 100 mg PO BID SEIZURES 09/17/19 levetiracetam 750 mg tablet 1,500 mg PO BID SEIZURES 03/11/24 levothyroxine 88 mcg tablet 88 mcg PO DAILY THYROID 03/11/24 furosemide 40 mg tablet 20 mg PO DAILY water pill 03/19/24 tamsulosin 0.4 mg capsule 0.4 mg PO QHS prostate 02/27/25 metoclopramide HCl 5 mg tablet 5 mg PO Q6H 30 days #120 tabs 03/12/25 lansoprazole 30 mg capsule,delayed release 30 mg PO DAILY 03/22/25 warfarin 4 mg tablet PO 03/22/25 meloxicam 15 mg tablet 7.5 mg (1/2 x 15 mg) PO DAILY PRN Arthritis pain 30 days #0 tabs 03/23/25 potassium chloride 10 mEq tablet,extended release(part/cryst) 20 meq (2 x 10 mEq) PO DAILY 30 days #0 tabs 03/23/25 potassium, sodium phosphates 280 mg-160 mg-250 mg oral powder packet 1 packet PO BID 10 days #20 ea 03/23/25 pyridostigmine bromide 30 mg tablet 30 mg PO DAILY 30 days #30 tabs 03/23/25 sennosides 8.6 mg-docusate sodium 50 mg tablet (Stimulant Laxative Plus) 2 tab PO BID #0 tabs 03/23/25 warfarin 5 mg tablet See Rx Instructions .Route .COMPLEX #50 tabs 03/23/25 Physical Exam Narrative Seen and examined Seated patient said he moved his bowel. His abdomen is less distended and feels like at baseline. He explained about his possible differential diagnosis advised follow-up with tertiary care as an outpatient, [facility]. no blood. No fever Physical exam General: Alert, Oriented x3, Cooperative. Obesity grade 2 BMI 38.0 kg/m? HEENT: Atraumatic, PERRLA, EOMI, Normocephalic. Oral: No Gingival or Mucosal Lesions/ Ulcerations Neck: Supple, No JVD, Negative Carotid Bruits Chest wall/Lungs: Air entry diminished in bilateral lung bases. No crepitation/rhonchi Cardiovascular: Regular rate and rhythm, Normal S1,S2, No M/G/R Abdomen: Bowel Sounds Present, Soft, mild distention.No significant tenderness. : No dysuria. No renal angle tenderness. No suprapubic tenderness. Extremities: No edema, Capillary Refill Less than 3 Seconds Skin: No rashes, No breakdown Musculoskeletal: No Tenderness to Palpation of Joints or Extremities Neurological: Cranial nerves II-XII grossly intact, DTR 2+/4. No acute focal neurological deficit. Psych/Mental Status: Normal Affect, Appropriate. Weight / BMI Weight Weight: 272 lb 14.916 oz Body Mass Index (BMI) 36.9 ABG / Lab / Microbiology Data 03/23/25 05:18 03/23/25 05:18 Laboratory: Laboratory Results - last 24 hr 03/22/25 10:52: Phosphorus 3.2 03/22/25 12:50: Troponin T Hi Sens 4Hr 22 03/23/25 05:18: WBC 5.6, RBC 3.68 L, Hgb 10.8 L, Hct 33.4 L, MCV 90.8, MCH 29.3, MCHC 32.3, RDW Std Deviation 46.3 H, RDW Coeff of Vaishnavi 14.0, Plt Count 91 L, MPV 9.6, Immature Gran % (Auto) 0.200, Neut % (Auto) 65.4, Lymph % (Auto) 22.1, [place] % (Auto) 7.7, Eos % (Auto) 4.1, Baso % (Auto) 0.5, Absolute Neuts (auto) 3.7, Absolute Lymphs (auto) 1.24, Nucleated RBC % 0, PT 14.6, INR 1.1, Sodium 139, Potassium 3.6, Chloride 107, Carbon Dioxide 21.9, Anion Gap 10, BUN 13, Creatinine 0.93, Estim Creat Clear Calc 100.41, Est GFR (MDRD) Non-Af 88, BUN/Creatinine Ratio 13.5, Glucose 96, Calcium 8.7, Phosphorus 3.3, Magnesium 2.4 H, Total Bilirubin 0.36, AST 20, ALT 17, Alkaline Phosphatase 116, Total Protein 5.8 L, Albumin 3.5, Globulin 2.3, Albumin/Globulin Ratio 1.5 D/C Instructions DC O2, CPAP, BIPAP Needs Home O2 Discharge instructions: No Discharge Plan Admission Admit Date/Time: 03/22/25 06:35 Primary Reason for Your Visit: Abdominal distention, colonic ileus/inertia Attending Provider: Rufus Spence Primary Care Provider: Hari Oneill Consulting Providers: Carlton Sheppard Instructions Additional Instructions / Restrictions: Follow-up verification specialist in [facility], pseudo colonic obstruction/colonic inertia Discharge Orders/Prescriptions Prescriptions: New sennosides-docusate sodium [Stimulant Laxative Plus] 8.6-50 mg Tablet 2 tab PO BID Qty: 0 0RF warfarin 5 mg tablet See Rx Instructions .ROUTE .COMPLEX Qty: 50 0RF Rx Instructions: 10 mg (2 tablets) on Sunday, Sunday and Sunday and 7.5 mg (1.5 tablets) on Sunday and Sunday Continued lamotrigine [Lamictal] 200 MG tablet 200 mg PO BID zonisamide 100 MG capsule 100 mg PO BID Patient Comments: 2 tabs at lunch and 2 tabs at hs lacosamide 200 mg tablet 200 mg PO BID levothyroxine 88 mcg tablet 88 mcg PO DAILY levetiracetam 750 mg tablet 1,500 mg PO BID furosemide 40 mg tablet 20 mg PO DAILY tamsulosin 0.4 mg capsule 0.4 mg PO QHS metoclopramide HCl 5 mg tablet 5 mg PO Q6H 30 Days Qty: 120 0RF warfarin 4 mg tablet PO lansoprazole 30 mg capsule,delayed release(DR/EC) 30 mg PO DAILY potassium, sodium phosphates 280-160-250 mg Powder In Packet 1 packet PO BID 10 Days Qty: 20 0RF pyridostigmine bromide 30 mg tablet 30 mg PO DAILY 30 Days Qty: 30 0RF Changed meloxicam 15 mg tablet 7.5 mg PO DAILY PRN (Reason: Arthritis pain) 30 Days Qty: 0 0RF potassium chloride 10 mEq tablet,ER particles/crystals 20 meq PO DAILY 30 Days Qty: 0 0RF Discontinued warfarin 7.5 mg tablet 7.5 mg PO DAILY Patient Comments: 10.5mg on Tuesdays, 7.5mg all other days ibuprofen 600 mg tablet 600 mg PO Q6H PRN (Reason: fever or pain) Qty: 20 0RF potassium chloride 20 mEq/15 mL liquid 10 meq PO DAILY amoxicillin-pot clavulanate 875-125 mg Tablet 1 tab PO BID 10 Days Qty: 20 0RF Referrals / Follow Up: Hari Oneill DO [Primary Care Provider] - Friend,DO Luis A [Med Staff - Active Staff] - Within 2 Weeks Disposition Disposition (needs filled in before D/C Order can be placed): Home, Self Care Charges/Coding Visit Charges Inpatient E&M: 62400 Disch Hosp >30min
--- NOTE | 2025-03-23 13:38 | CASEMGMT ---
S[facility] Met with patient to complete [facility] form. [facility] form and its content were verbally explained and patient's questions were answered to the best of my ability.? Patient voiced understanding and signed SANFORD form.? Patient provided a copy of signed SANFORD form and original placed in patient's chart.? Patient had no further questions. [place] John, Discharge Planning Asst
--- NOTE | 2025-03-23 14:00 | PCM.PN.HOSP ---
Reason for Visit Chief Complaint: Abdominal Bloating, Distention, Generalized Weakness and Confusion. Objective Data Objective Data Vital Signs: Vital Signs Temp Pulse Resp BP Pulse Ox O2 Del Method 98.3 F 74 18 118/63 96 Room Air 03/23/25 10:00 03/23/25 10:00 03/23/25 10:00 03/23/25 10:00 03/23/25 10:00 03/23/25 10:00 Oxygen Delivery Method Room Air Weight: 272 lb 14.916 oz Body Mass Index (BMI) 36.9 Intake & Output: Intake and Output for Last 24 Hours 03/21/25 03/22/25 03/23/25 23:59 23:59 23:59 Intake Total 2767.5 / 2767.5 1000 / 1000 Output Total 100 / 100 Balance 2667.5 / 2667.5 1000 / 1000 Lab / Micro Data 03/23/25 05:18 03/23/25 05:18 Labs: Laboratory Results - last 24 hr 03/23/25 05:18: WBC 5.6, RBC 3.68 L, Hgb 10.8 L, Hct 33.4 L, MCV 90.8, MCH 29.3, MCHC 32.3, RDW Std Deviation 46.3 H, RDW Coeff of Vaishnavi 14.0, Plt Count 91 L, MPV 9.6, Immature Gran % (Auto) 0.200, Neut % (Auto) 65.4, Lymph % (Auto) 22.1, [place] % (Auto) 7.7, Eos % (Auto) 4.1, Baso % (Auto) 0.5, Absolute Neuts (auto) 3.7, Absolute Lymphs (auto) 1.24, Nucleated RBC % 0, PT 14.6, INR 1.1, Sodium 139, Potassium 3.6, Chloride 107, Carbon Dioxide 21.9, Anion Gap 10, BUN 13, Creatinine 0.93, Estim Creat Clear Calc 100.41, Est GFR (MDRD) Non-Af 88, BUN/Creatinine Ratio 13.5, Glucose 96, Calcium 8.7, Phosphorus 3.3, Magnesium 2.4 H, Total Bilirubin 0.36, AST 20, ALT 17, Alkaline Phosphatase 116, Total Protein 5.8 L, Albumin 3.5, Globulin 2.3, Albumin/Globulin Ratio 1.5 Rhythm Strip Rhythm Strip: Sinus Rhythm Rate: 85 Ectopy: None Physical Exam Narrative Seen and examined Seated patient said he moved his bowel. His abdomen is less distended and feels like at baseline. He was explained about his possible differential diagnosis advised follow-up with tertiary care as an outpatient, [facility]. But after that [facility] tertiary center which and then feels abdominal distention or abdominal pain worsening. Therefore discharge canceled no blood in the stool. No fever Physical exam General: Alert, Oriented x3, Cooperative. Obesity grade 2 BMI 38.0 kg/m? HEENT: Atraumatic, PERRLA, EOMI, Normocephalic. Oral: No Gingival or Mucosal Lesions/ Ulcerations Neck: Supple, No JVD, Negative Carotid Bruits Chest wall/Lungs: Air entry diminished in bilateral lung bases. No crepitation/rhonchi Cardiovascular: Regular rate and rhythm, Normal S1,S2, No M/G/R Abdomen: Bowel Sounds Present, Soft, mild distention.No significant tenderness. : No dysuria. No renal angle tenderness. No suprapubic tenderness. Extremities: No edema, Capillary Refill Less than 3 Seconds Skin: No rashes, No breakdown Musculoskeletal: No Tenderness to Palpation of Joints or Extremities Neurological: Cranial nerves II-XII grossly intact, DTR 2+/4. No acute focal neurological deficit. Psych/Mental Status: Normal Affect, Appropriate. Assessment & Plan Assessment/Plan (1) Hypokalemia: (2) Generalized weakness: (3) Ambulatory dysfunction: (4) Chronic intestinal pseudo-obstruction: (5) Nausea: (6) Abdominal pain: QUALIFIERS: Abdominal location: unspecified location Qualified Code(s): R10.9 - Unspecified abdominal pain (7) Colon distention: (8) Acute metabolic encephalopathy: (9) Obesity (BMI 30-39.9): (10) History of DVT (deep vein thrombosis): (11) Chronic anticoagulation: PLAN: Plan 69-year-old gentleman admitted for left lower quadrant abdominal pain for which she was last hospitalized in first week of March 2025. Patient patient is irritable migraine not able to give detailed history. Too weak to stand. Lives by himself.Patient was admitted with similar complaints. Abdominal distention with gaseous feeling, no significant abdominal pain but pressure from distention, bloating and nausea sensation. Dizziness. He is passing flatus. He said he is moving his bowel though initially was constipated but last few more loose but last 1 was well-formed with 1. Hypokalemia of 2.9 mmol/L present on admission - Admit to general medical floor with telemetry monitoring under observation status. Give supplemental KCl and then recheck level in a.m. to ensure repletion. Magnesium low normal 1.7. Started on IV potassium phosphate. Serum potassium pending 03/23: Hypokalemia is corrected. Serum phosphorus 3.3. Magnesium 2.4 high. Patient on potassium supplement and Neutra-Phos. 2. Persistent abdominal pain and distention probably due to chronic intestinal pseudoobstruction/[place] syndrome: During previous admission he had colonoscopy. 03/22: Today, patient does not have significant abdominal pain but pressure/discomfort from abdominal distention. Discussed with GI Dr. Singh about similar natural course like last time. Might need referral to tertiary care center as an outpatient for detailed evaluation of colonic inertia/increased transit time complicated with pseudoobstruction with retroperitoneal lymphadenopathy and bilateral mild hydroureteronephrosis Patient had CT abdomen which shows similar finding including unchanged narrowing at the mid aspect of sigmoid colon with significant gaseous distention of transverse colon about 12.9 cm without perforation or pneumatosis coli. Prominent venous collaterals in the anterior abdominal wall with unchanged retroperitoneal lymphadenopathy with the largest lymph node about 1.3 cm. Findings are unchanged. Mild bilateral hydroureteronephrosis probably reflects thrombus. Bladder, unremarkable IC filter. Mild diffuse thickening of the stomach likely due to gastritis and moderate gastroparesis. Impacted stone in the GB neck distended GB. No definite evidence of acute cholecystitis. Mesenteric panniculitis 5colonoscopy as below. During previous admission, diagnosis was chronic intestinal pseudoobstruction. The patient was treated with metoclopramide, azithromycin, octreotide Augmentin and acetylcholinesterase inhibitor pyridostigmine bromide and was discharged on pyridostigmine and Augmentin . Patient has follow-up with GI on coming Sunday Impressions : - Preparation of the colon was fair. - Dilated in the descending colon, at the splenic flexure, in the transverse colon, at the hepatic flexure and in the ascending colon. Biopsied. - Stool in the transverse colon, at the hepatic flexure, in the ascending colon and in the cecum. 03/23: Discussed with survey operations director. We think that patient might have some neuromuscular/smooth muscle disorder with pseudo colonic obstruction/ileus/[place]wel[place] syndrome with slow colonic transit/colonic inertia. Advised to follow-up in [facility] survey operations director for further workup and management. In the meantime her water lunch he ate a turkey sandwich and then started having abdominal pain and worsening of distention therefore proposed discharge canceled Generalized Weakness with Ambulatory Dysfunction PT/OT and Case Management to consult 4. Acute Metabolic Encephalopathy -TSH normal. B12 pending check TSH, B12, Folate, HgbA1c, DANNA and UDS to evaluate for potentially reversible causes of confusion. Otherwise, continue supportive care and monitor for improvement. 5. Obesity (class II); with BMI of 38 this admission adding to the burden of disease outlined from #1 - #4 - Weight loss will be recommended when sensorium clears. Check TSH. This complicates his case and may hamper recovery. 6. History of DVT; on warfarin with chronic lower extremity lymphedema with chronic venous stasis and IVC filter adding to the medical complexity: INR 1.0. Continue warfarin 7.5 mg daily. Goal INR between 2-3 03/23: INR subtherapeutic. Warfarin dose increased to 10 mg on Sunday and 7.5 mg on Sunday, Sunday, and Sunday. Discussed with the pharmacist. Lovenox 1 mg/kg body weight x 1 given for subtherapeutic INR. Follow-up INR daily 8. Seizure disorder; on lacosamide twice daily, lamotrigine twice daily, zonisamide twice daily and levetiracetam twice daily - Continue home regimen. 9. Thrombocytopenia with platelet count of 100K present on admission -monitor CBC 10. Mildly elevated troponin T of 28 ng/L -: Repeat troponins 25, ACS ruled out. Indeterminant. Probably due to increased cardiac demand 11. Essential hypertension; on furosemide -hold furosemide 12. History of hyperlipidemia; currently not on treatment - 13. Hypothyroidism; on levothyroxine - Continue levothyroxine as before and check TSH. 14. History of RAHUL - Stable with hemoglobin of 11.9 g/dL and MCV of 88.6 fL this admission. 16. History of Hodgkin's lymphoma - Noted. 17. BPH; on tamsulosin - Resume tamsulosin as previous. 18. OA; on ibuprofen every 6 hours as needed -discontinue ibuprofen as patient already on meloxicam. Meloxicam dose decreased to 7.5 mg daily as needed for arthritis 19. DVT prophylaxis - Patient is on warfarin, dose adjusted as mentioned above. New prescription given Discharge medication reconciliation done. Discharge follow-up instructions completed. Discharge process discussed with the patient and all questions were answered to patient's satisfaction. Follow with PCP in 1 to 2 weeks Total time spent, exact 35 minutes on discharge meds reconciliation, examination, coordination of care with nurses and ancillary staff, review of imaging and blood test and discussion with the patient on follow-up instructions. Laboratory Results 03/21/25 23:15: WBC 8.2, RBC 4.03 L, Hgb 11.9 L, Hct 35.7 L, MCV 88.6, MCH 29.5, MCHC 33.3, RDW Std Deviation 46.0 H, RDW Coeff of Vaishnavi 14.2, Plt Count 100 L, MPV 9.9, Immature Gran % (Auto) 1.200 H, Neut % (Auto) 65.2, Lymph % (Auto) 21.3, [place] % (Auto) 8.7, Eos % (Auto) 3.4, Baso % (Auto) 0.2, Absolute Neuts (auto) 5.4, Absolute Lymphs (auto) 1.75, Nucleated RBC % 0, Sodium 134, Potassium 2.9 L, Chloride 97 L, Carbon Dioxide 21.9, Anion Gap 16 H, BUN 18, Creatinine 1.07, Estim Creat Clear Calc 87.27, Est GFR (MDRD) Non-Af 74, BUN/Creatinine Ratio 16.4, Glucose 105 H, Calcium 8.8, Total Bilirubin 0.40, AST 23, ALT 26, Alkaline Phosphatase 138 H, Troponin T High Sens 28 H, Total Protein 6.9, Albumin 4.1, Globulin 2.8, Albumin/Globulin Ratio 1.5, Lipase 50, TSH 0.428 03/21/25 23:46: Urine Color Yellow, Urine Clarity Clear, Urine pH 6.0, Ur Specific [place] 1.020, Urine Protein Negative, Urine Glucose (UA) Normal, Urine Ketones Negative, Urine Occult Blood Negative, Urine Nitrite Negative, Urine Bilirubin Negative, Urine Urobilinogen Normal, Ur Leukocyte Esterase Negative, Urine RBC 0 SEEN, Urine WBC 0 SEEN, Ur Squamous Epith Cells 0 SEEN, Urine Bacteria 0 SEEN, Urine Mucus 0 SEEN 03/22/25 02:40: Magnesium Pending, Troponin T Hi Sens 2 Hr 25 H, Triglycerides Pending, Cholesterol Pending, LDL Cholesterol, Calc Pending, VLDL Cholesterol Pending, HDL Cholesterol Pending, Cholesterol/HDL Ratio Pending, Vitamin B12 Pending 03/22/25 06:05: PT 13.6, INR 1.0 Charges/Coding Visit Charges Inpatient E&M: 65698 Subs Hosp L2
[2025-03-23 15:41] VITALS: BP 144/64; PULSE 74; RESP 18; TEMP 36.9; O2SAT 98
== END 2025-03-23 15:25 | disposition home or self-care (01) ==
LOC: ED 03-22 05:53 → MS3 03-22 06:58
PROVIDERS: Admitting Provider Internal Medicine; Emergency Provider Emergency Medicine; PCP Student in an Organized Health Care Education/Training Program; Visit Provider Internal Medicine
DX: E87.6 Hypokalemia (principal); G40.909 Epilepsy, unspecified, not intractable, without status epilepticus; Z79.899 Other long term (current) drug therapy; E66.812 Obesity, class 2; Z86.718 Personal history of other venous thrombosis and embolism; Z79.01 Long term (current) use of anticoagulants; K80.10 Calculus of gallbladder with chronic cholecystitis without obstruction; Z68.38 Body mass index [BMI] 38.0-38.9, adult; K76.0 Fatty (change of) liver, not elsewhere classified; K21.9 Gastro-esophageal reflux disease without esophagitis; G93.41 Metabolic encephalopathy; M19.90 Unspecified osteoarthritis, unspecified site; I10 Essential (primary) hypertension; R53.1 Weakness; R26.89 Other abnormalities of gait and mobility; E03.9 Hypothyroidism, unspecified; Z79.890 Hormone replacement therapy; R14.0 Abdominal distension (gaseous); Z79.1 Long term (current) use of non-steroidal anti-inflammatories (NSAID); K63.89 Other specified diseases of intestine; R53.81 Other malaise; E78.5 Hyperlipidemia, unspecified; D69.6 Thrombocytopenia, unspecified; K59.89 Other specified functional intestinal disorders; R59.0 Localized enlarged lymph nodes; N40.0 Benign prostatic hyperplasia without lower urinary tract symptoms; Z85.71 Personal history of Hodgkin lymphoma; I89.0 Lymphedema, not elsewhere classified; I87.8 Other specified disorders of veins
CPT/HCPCS: 36415; 70450; 71045; 74176; 80053; 80061; 80307; 81001; 82077; 82607; 82746; 83036; 83690; 83735; 84100; 84443; 84484; 85025; 85610; 93005; 94668; 96365; 96366; 96367; 96375; 96376; 97161; 97165; 99221; 99285; A4216; G0378; J2405